=== PATIENT | male | born 1970 | race Caucasian/White ===

== ENCOUNTER 2016-12-27 08:00 | Outpatient (CLI) | payer MEDICARE | END 2016-12-27 08:01 | disposition home or self-care (01) | DX: E11.9 Type 2 diabetes mellitus without complications (principal); E03.9 Hypothyroidism, unspecified ==

== ENCOUNTER 2016-12-27 13:59 | Outpatient (CLI) | payer MEDICARE | END 2016-12-27 14:00 | disposition home or self-care (01) | DX: J18.9 Pneumonia, unspecified organism (principal); E11.9 Type 2 diabetes mellitus without complications; E03.9 Hypothyroidism, unspecified ==

== ENCOUNTER 2017-09-07 18:15 | Outpatient (CLI) | payer MEDICARE | END 2017-09-07 18:16 | disposition critical access hospital (66) | LOC: EMS 18:15 | PROVIDERS: ATTEND Surgery | DX: T50.902A Poisoning by unspecified drugs, medicaments and biological substances, intentional self-harm, initial encounter (principal) | CPT/HCPCS: A0425; A0429 ==

== ENCOUNTER 2017-09-07 18:32 | Emergency (ER) | payer MEDICARE ==
[2017-09-07] MEDS ORDERED: LORazepam 2 MG/ML SYRINGE ONE (18:58)
[2017-09-07] MEDS ORDERED: HYDROmorphone 1 MG/ML SYRINGE IVP STA ×3 (19:01→21:53)
[2017-09-07] MEDS ORDERED: LORazepam 2 MG/ML SYRINGE IVP STA (19:01)
[2017-09-07] MEDS ORDERED: SODIUM CHLORIDE 0.9% 1,000 ML IV ONE ×2 (19:02→20:13)
--- NOTE | 2017-09-07 19:03 | ED Physician Documentation ---
PD HPI ALTERED MENTAL STATUS - Stated complaint Stated Complaint: AMS - Chief complaint Chief Complaint: MHE - History obtained from History obtained from: Patient, Friend, EMS - History of Present Illness Timing - onset: Today Timing - details: Gradual onset (Unknown actual onset time but the patient had carpal tunnel surgery done this morning at [facility] under general anesthesia and was kept a little bit longer postop due to some nausea. He was discharged from there and states he was having pain in his wrist on the way home and when he got home did not have any extra pain medicines. He had been given a prescription but was unable to fill it as he did not get to the pharmacy as yet. He therefore drank some alcohol and then does not remember much after that. His girlfriend came home from running errands and found him passed out on the floor poorly responsive with minimal breathing. EMS was called and they found him arousable with the adequate oxygenation when awake. He was tachycardic however and had significant slurred speech and was also combative. His girlfriend says he did make some comments about not wanting to live with the pain but denied specific suicidal statement.) Quality / character: Unresponsive Associated symptoms: No: Fever, Headache, Stiff neck, Dyspnea Contributing factors: Intoxicated. 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 denies: Vomiting, Diarrhea Musculoskeletal: reports: Back pain (chronic, with infusion pump and nerve stimulator) Neurologic: reports: Generalized weakness. denies: Focal weakness, Numbness, Head injury Psychiatric: reports: Depressed. denies: Suicidal (he denies suicidal ideation/ intent here), Delusions Immunocompromised: denies: Immunocompromised PD PAST MEDICAL HISTORY - Past Medical History Cardiovascular: None Psych: Depression Musculoskeletal: Chronic back pain - Present Medications Home Medications: Ambulatory Orders Medication Instructions Recorded Confirmed Cyclobenzaprine [Flexeril] 10 - 20 mg PO HS 01/17/14 01/17/14 Diazepam 5 mg PO HS 01/17/14 01/17/14 HYDROcodone/ACET 10/325 [[place] 10 1 - 2 each PO Q8H PRN 01/17/14 01/17/14 mg/325 mg] Hydromorphone/Bupiv/0.9NACL/Pf ml IT 01/17/14 01/17/14 [Hydromorp-Bupiva 20 Mcg-0.06%] Insulin Glargine [Lantus] 5 unit SUBQ QPM 01/17/14 01/17/14 Levothyroxine [Synthroid] 125 mcg PO QDAC 01/17/14 01/17/14 [place] Carbonate 300 mg PO QAM 01/17/14 01/17/14 [place] Carbonate 600 mg PO HS 01/17/14 01/17/14 Metformin HCl 1,000 mg PO BIDWM 01/17/14 01/17/14 lamoTRIgine [LaMICtal] 100 mg PO DAILY 01/17/14 01/17/14 Oxycodone HCl 10 mg PO Q6H PRN #16 tablet 09/07/17 - Allergies Allergies/Adverse Reactions: Allergies Allergy/AdvReac Type Severity Reaction Status Date / Time penicillin G Allergy Severe hearing Verified 01/16/14 15:20 loss left ear povidone-iodine Allergy Severe Respiratory Verified 01/16/14 15:20 [From Betadine] soap * [From Betadine] Allergy Severe Respiratory Verified 01/16/14 15:20 shellfish derived Allergy skin Verified 01/16/14 15:20 burning dexamethasone AdvReac Unknown Unknown Verified 01/16/14 15:20 - Social History Smoking Status: Never smoker PD ED PE NORMAL - Vitals Vital signs reviewed: Yes - General General: Other (screaming and thrashing, not answering questions directly. Repeating that his hand hurts. Kicking swinging arms at providers. ) - HEENT HEENT: Atraumatic, Pharynx benign - Neck Neck: Supple, no meningeal sign, No adenopathy - Cardiac Cardiac: No: RRR (regular but tachycardic) - Respiratory Respiratory: No respiratory distress, Clear bilaterally - Abdomen Abdomen: Soft, Non tender - Male Male : Deferred - Rectal Rectal: Deferred - Back Back: No CVA TTP - Derm Derm: Normal color, Warm and dry - Extremities Extremities: No edema, No calf tenderness / cord - Neuro Neuro: No motor deficit (able to move fingers right hand, but hurts in wrist. Has good color and cap refill in fingers. Mild edema. Sutures of wound are intact and wrist rebandaged. ), Other (he is awake and talking here but unfocused speech and not processing questions, seems c/w intoxication. ) Eye Opening: Spontaneous Motor: Localizes to Pain Verbal: Confused GCS Score: 13 - Psych Psych: No: Normal affect (agitated and combative) Results - Vitals Vitals: Vital Signs - 24 hr 09/07/17 09/07/17 09/07/17 18:33 19:04 19:45 Temperature 37.1 C Heart Rate 121 H 123 H Respiratory 20 22 Rate Blood Pressure 106/73 106/73 O2 Saturation 98 97 09/07/17 09/07/17 09/07/17 21:14 21:58 22:02 Temperature Heart Rate 108 H 112 H 121 H Respiratory 18 17 23 Rate Blood Pressure 130/66 122/78 129/62 O2 Saturation 96 96 99 09/07/17 22:33 Temperature 36.7 C Heart Rate 123 H Respiratory 18 Rate Blood Pressure 126/76 O2 Saturation 96 Oxygen O2 Source Room air - EKG (time done) 18:46 Rate: Rate (enter#) (118) Rhythm: Sinus tachycardia Sebastian: Normal Intervals: Normal [place] QRS: Normal Ischemia: Normal ST segments. No: ST elevation c/w ischemia, ST depression Compare to prior EKG: Old EKG unavailable - Labs Labs: Laboratory Tests 09/07/17 09/07/17 09/07/17 19:15 19:15 19:54 WBC 8.4 RBC 4.22 L Hgb 12.9 L Hct 39.6 L MCV 93.7 MCH 30.5 MCHC 32.5 RDW 12.9 Plt Count 299 MPV 7.5 Neut # 7.7 H Lymph # 0.5 L [place] # 0.2 Eos # 0.0 Baso # 0.0 Absolute Nucleated RBC 0.00 Nucleated RBC % 0.0 Sodium 136 Potassium 3.7 Chloride 102 Carbon Dioxide 19 L Anion Gap 15.0 H BUN 11 Creatinine 0.6 Estimated GFR (MDRD) 143 Glucose 332 H Calcium 8.7 Total Bilirubin 0.4 AST 33 ALT 27 Alkaline Phosphatase 117 Total Protein 7.1 Albumin 3.9 Globulin 3.2 Albumin/Globulin Ratio 1.2 Lipase 23 Salicylates < 6.0 Urine Opiates Screen POSITIVE H Ur Oxycodone Screen NEGATIVE Urine Methadone Screen NEGATIVE Ur Propoxyphene Screen NEGATIVE Acetaminophen < 10 L Ur Barbiturates Screen NEGATIVE Ur Tricyclics Screen NEGATIVE Ur Phencyclidine Scrn NEGATIVE Ur Amphetamine Screen NEGATIVE U Methamphetamines Scrn NEGATIVE U Benzodiazepines Scrn NEGATIVE Urine Cocaine Screen NEGATIVE U Cannabinoids Screen NEGATIVE Ethyl Alcohol 102.3 PD MEDICAL DECISION MAKING - ED course Complexity details: re-evaluated patient (Watched few hours and restraints removed as he was more alert and cooperative. Denies suicidal ideation. Is apologetic, calm and cooperative at this point. His Ortho had sritten Rx for Tylenol#3 for him, which will be predictably ineffective given his dilaudid pain pump and chronic pain. Will give Rx for Oxycodone for him. He offered and I took his Rx from the Ortho and I tore it up. He is feeling improved at time of discharge. Still mildly tachycardic but I do not sense any serious pathology and feel okay with his being discharged. His wrist and fingers still have cap refill, color, movement. I don't think it is compartment syndrome. ), considered differential (he is combative and unfocused, likely intoxication combined with some post-anesthesia effect. Tachycardic but regular, presume reactive sinus tachycardia. Needed restraining for safety initially, and given Ativan IV. This helped him calm quite well. He is then able to cooperate soon after. He complains of pain in back and wrist. He is tachycardic and consider if he might be having some element of opioid withdrawal. Alcohol effect seems to be wearing off so given some pain meds. This helped his heart rate. He is not shaky nor nauseated. ), d/w patient Departure - Departure Disposition: 01 Home, Self Care Clinical Impression: Status post wrist surgery Altered mental status Qualifiers: Altered mental status type: delirium Qualified Code(s): R41.0 - Disorientation , unspecified Condition: Stable Record reviewed to determine appropriate education?: Yes Follow-Up: [facility] [Provider Group] Prescriptions: Oxycodone HCl 10 mg PO Q6H PRN #16 tablet PRN Reason: Pain Comments: Wound care for the wrist as directed by your orthopedist. No alcohol use. Continue your usual medications. Add oxycodone if needed for acute pain of the wrist post surgery. I would expect this just to needed for 4-5 days after surgery. Follow-up with your primary care. I think the symptoms he had today were a combination of still some anesthesia effect from the surgery combined with alcohol and likely tiredness and stress. He seemed to be doing well at this time. We will discharge her home with your friends. Discharge Date/Time: 09/07/17 22:58
[2017-09-07] MEDS ORDERED: HYDROmorphone 1 MG/ML SYRINGE ONE ×3 (19:12→22:05)
[2017-09-07 19:18] LABS: BASOPHILS % (AUTO) 0.1 %; HCT - HEMATOCRIT 39.6 % (42.0-52.0); HGB - HEMOGLOBIN 12.9 g/dL (14.0-18.0); LYMPHOCYTES # (AUTO) 0.5 10^3/uL (1.5-3.5); LYMPHOCYTES % (AUTO) 6.5 %; MEAN CORPUSCULAR HEMOGLOBIN 30.5 pg (27.0-31.0); MEAN CORPUSCULAR HGB CONC 32.5 g/dL (32.0-36.0); MEAN CORPUSCULAR VOLUME 93.7 fL (80.0-94.0); MEAN PLATELET VOLUME 7.5 fL (7.4-11.4); MONOCYTES # (AUTO) 0.2 10^3/uL (0.0-1.0); MONOCYTES % (AUTO) 1.9 %; NEUTROPHILS # (AUTO) 7.7 10^3/uL (1.5-6.6); NEUTROPHILS % (AUTO) 91.5 %; RED BLOOD COUNT 4.22 10^6/uL (4.70-6.10); RED CELL DISTRIBUTION WIDTH 12.9 % (12.0-15.0); UNCORRECTED WHITE BLOOD COUNT 8.4 x10^3/uL; WHITE BLOOD COUNT 8.4 x10^3/uL (4.8-10.8)
[2017-09-07 19:44] LABS: ALBUMIN/GLOBULIN RATIO 1.2 (1.0-2.2); BILIRUBIN,TOTAL 0.4 mg/dL (0.2-1.0); BUN - BLOOD UREA NITROGEN 11 mg/dL (6-20); CALCIUM 8.7 mg/dL (8.5-10.3); CARBON DIOXIDE - CO2 19 mmol/L (21-32); CHLORIDE 102 mmol/L (101-111); CREATININE 0.6 mg/dL (0.6-1.2); GFR - MDRD 143 (>89); GLUCOSE 332 mg/dL (70-100); LIPASE 23 U/L (22-51); POTASSIUM 3.7 mmol/L (3.5-5.0); SALICYLATE < 6.0 mg/dL; SODIUM 136 mmol/L (135-145); TOTAL PROTEIN 7.1 g/dL (6.7-8.2)
[2017-09-07 19:45] LABS: ACETAMINOPHEN < 10 ug/mL (10-30)
[2017-09-07] MEDS ORDERED: oxyCODONE/ACET 5/325 Prepack 4 PO STA (21:53)
[2017-09-07] MEDS ORDERED: KETOROLAC 60 MG/2 ML VIAL IVP STA (21:53)
[2017-09-07] MEDS ORDERED: KETOROLAC 30 MG/ML VIAL ONE (22:05)
[2017-09-07 22:34] VITALS: BP 126/76
== END 2017-09-07 22:58 | disposition home or self-care (01) ==
LOC: EDUNIT# → EDBD → ED 18:32
DX: R41.0 Disorientation, unspecified (principal); Z98.890 Other specified postprocedural states
CPT/HCPCS: 36415; 80053; 80306; 80307; 83690; 85025; 93005; 96361; 96374; 96375; 96376; 99284; 99285; G0480; J1170; J2060; 80320; 80329

== ENCOUNTER 2017-12-05 07:35 | Outpatient (CLI) | payer MEDICARE ==
[2017-12-05 13:32] LABS: BASOPHILS % (AUTO) 0.5 %; EOSINOPHILS # (AUTO) 0.2 10^3/uL (0.0-0.7); EOSINOPHILS % (AUTO) 3.8 %; HGB - HEMOGLOBIN 13.6 g/dL (14.0-18.0); LYMPHOCYTES # (AUTO) 1.5 10^3/uL (1.5-3.5); LYMPHOCYTES % (AUTO) 26.2 %; MEAN CORPUSCULAR HEMOGLOBIN 31.8 pg (27.0-31.0); MEAN CORPUSCULAR HGB CONC 33.9 g/dL (32.0-36.0); MEAN CORPUSCULAR VOLUME 93.7 fL (80.0-94.0); MEAN PLATELET VOLUME 8.5 fL (7.4-11.4); MONOCYTES # (AUTO) 0.5 10^3/uL (0.0-1.0); NEUTROPHILS # (AUTO) 3.4 10^3/uL (1.5-6.6); NEUTROPHILS % (AUTO) 60.5 %; PLT - PLATELET COUNT 252 10^3/uL (130-450); RED BLOOD COUNT 4.27 10^6/uL (4.70-6.10); RED CELL DISTRIBUTION WIDTH 12.8 % (12.0-15.0); WHITE BLOOD COUNT 5.5 x10^3/uL (4.8-10.8)
[2017-12-05 13:44] LABS: ALBUMIN 4.6 g/dL (3.2-5.5); ALBUMIN/GLOBULIN RATIO 1.4 (1.0-2.2); ALKALINE PHOSPHATASE 99 IU/L (42-121); ALT ALANINE AMINOTRANSFERASE 46 IU/L (10-60); AST ASPARTATE AMINOTRANSFERASE 42 IU/L (10-42); BILIRUBIN,TOTAL 0.5 mg/dL (0.2-1.0); BUN - BLOOD UREA NITROGEN 10 mg/dL (6-20); CALCIUM 9.2 mg/dL (8.5-10.3); CARBON DIOXIDE - CO2 29 mmol/L (21-32); CHLORIDE 101 mmol/L (101-111); CHOL/HDL RATIO 1.9 (<5.0); CHOLESTEROL 227 mg/dL; CREATININE 0.5 mg/dL (0.6-1.2); GFR - MDRD 177 (>89); GLUCOSE 155 mg/dL (70-100); HDL CHOLESTEROL 122 mg/dL; LDL CHOLESTEROL,CALCULATED 95 mg/dL; LDL/HDL RATIO 0.8 (<3.6); SODIUM 139 mmol/L (135-145); TOTAL PROTEIN 7.8 g/dL (6.7-8.2); VLDL CHOLESTEROL 10 mg/dL
[2017-12-05 13:57] LABS: THYROID STIMULATING HORMONE 0.57 uIU/mL (0.34-5.60)
[2017-12-05 13:59] LABS: FREE T4 (FREE THYROXINE) 0.84 ng/dL (0.58-1.64)
[2017-12-05 14:48] LABS: HB2 TOTAL 14.9 g/dL; HEMOGLOBIN A1C 0.71 g/dL; HEMOGLOBIN A1C % 6.5 % (4.6-6.2)
== END 2017-12-05 07:36 | disposition home or self-care (01) ==
LOC: LAB.N 07:35
PROVIDERS: ATTEND Family Medicine
DX: E11.9 Type 2 diabetes mellitus without complications (principal); F31.9 Bipolar disorder, unspecified; E03.9 Hypothyroidism, unspecified; E78.00 Pure hypercholesterolemia, unspecified
CPT/HCPCS: 36415; 80053; 80061; 83036; 83721; 84439; 84443; 85025

== ENCOUNTER 2018-04-03 07:37 | Outpatient (CLI) | payer MEDICARE ==
[2018-04-03 12:55] LABS: CALCIUM 8.9 mg/dL (8.5-10.3); CREATININE 0.7 mg/dL (0.6-1.2)
[2018-04-03 13:29] LABS: HB2 TOTAL 14.3 g/dL; HEMOGLOBIN A1C 0.68 g/dL; HEMOGLOBIN A1C % 6.5 % (4.6-6.2)
== END 2018-04-03 07:38 | disposition home or self-care (01) ==
LOC: LAB.N 07:37
PROVIDERS: ATTEND Family Medicine
DX: E11.9 Type 2 diabetes mellitus without complications (principal)
CPT/HCPCS: 36415; 80048; 83036

== ENCOUNTER 2018-10-30 09:34 | Outpatient (CLI) | payer MEDICARE ==
[2018-10-30 12:34] LABS: CALCIUM 9.3 mg/dL (8.5-10.3); CREATININE 0.5 mg/dL (0.6-1.2)
[2018-10-30 12:45] LABS: HB2 TOTAL 14.1 g/dL; HEMOGLOBIN A1C 0.74 g/dL
== END 2018-10-30 23:59 | disposition home or self-care (01) ==
LOC: LAB.N 09:34
PROVIDERS: ATTEND Physician Assistant Medical
DX: E11.9 Type 2 diabetes mellitus without complications (principal)
CPT/HCPCS: 36415; 80048; 83036

== ENCOUNTER 2019-02-07 10:10 | Outpatient (CLI) | payer MEDICARE ==
--- NOTE | 2019-02-07 19:00 | XRAY Report ---
Reason: L index finger; pos FB Procedure Date: 02/07/2019 Accession Number: [id number] / [id number] Procedure: XRN - Finger(s) LT CPT Code: FULL RESULT: EXAM: LEFT INDEX FINGER RADIOGRAPHY EXAM DATE: 02/07/2019 10:49 AM. CLINICAL HISTORY: Pain, question foreign body COMPARISON: 04/09/2009. TECHNIQUE: 3 views. FINDINGS: Bones: No fracture or bone lesion. Joints: No subluxations. Soft Tissues: No radiopaque foreign body identified.. No soft tissue swelling. IMPRESSION: Normal left index finger radiography. RADIA
== END 2019-02-07 10:11 | disposition home or self-care (01) ==
LOC: DI.N 10:10
PROVIDERS: ATTEND Family Medicine
DX: L03.012 Cellulitis of left finger (principal)
CPT/HCPCS: 73140

== ENCOUNTER 2019-02-07 12:15 | Outpatient (CLI) | payer MEDICARE | END 2019-02-07 23:59 | disposition home or self-care (01) | LOC: LAB.R 12:15 | PROVIDERS: ATTEND Family Medicine | DX: L02.519 Cutaneous abscess of unspecified hand (principal) | CPT/HCPCS: 87070; 87075; 87147; 87186; 87205 ==

== ENCOUNTER 2019-02-10 03:40 | Emergency (ER) | payer MEDICARE ==
[2019-02-10] MEDS ORDERED: BUPIVACAINE 0.5% PF 10 ML VIAL SUBQ STA (04:03)
--- NOTE | 2019-02-10 04:04 | ED Physician Documentation ---
History of Present Illness - Stated complaint Stated Complaint: L INDEX FINGER PX - Chief complaint Chief Complaint: Ext Problem - History obtained from History obtained from: Patient, Family - History of Present Illness Timing: How many days ago (4) - Additonal information Additional information: 49-year-old male has had swelling and tenderness to his Left index finger and he has gone in to see the ominous Dr. Combs. He has had it lanced drained packed and he has had the packing removed 2 days ago. Yesterday pain increased swelling increased and early this morning he has called his dad up to take him to the emergency department. He is on some keflex. He did have some trouble with the block not working for the procedure. Review of Systems Constitutional: denies: Fever Eyes: denies: Decreased vision Ears: denies: Ear pain Nose: denies: Rhinorrhea / runny nose, Congestion Respiratory: denies: Cough GI: denies: Vomiting PD PAST MEDICAL HISTORY - Past Medical History Cardiovascular: None Psych: Depression Musculoskeletal: Chronic back pain - Present Medications Home Medications: Ambulatory Orders Medication Instructions Recorded Confirmed Cyclobenzaprine [Flexeril] 10 - 20 mg PO HS 01/17/14 01/17/14 Diazepam 5 mg PO HS 01/17/14 01/17/14 HYDROcodone/ACET 10/325 [[place] 10 1 - 2 each PO Q8H PRN 01/17/14 01/17/14 mg/325 mg] Hydromorphone/Bupiv/0.9NACL/Pf ml IT 01/17/14 01/17/14 [Hydromorp-Bupiva 20 Mcg-0.06%] Insulin Glargine [Lantus] 5 unit SUBQ QPM 01/17/14 01/17/14 Levothyroxine [Synthroid] 125 mcg PO QDAC 01/17/14 01/17/14 [place] Carbonate 300 mg PO QAM 01/17/14 01/17/14 [place] Carbonate 600 mg PO HS 01/17/14 01/17/14 Metformin HCl 1,000 mg PO BIDWM 01/17/14 01/17/14 lamoTRIgine [LaMICtal] 100 mg PO DAILY 01/17/14 01/17/14 Oxycodone HCl 10 mg PO Q6H PRN #16 tablet 09/07/17 Sulfamethox/Trimeth 800/160 1 each PO BID #14 tablet 02/10/19 [Bactrim Ds] - Allergies Allergies/Adverse Reactions: Allergies Allergy/AdvReac Type Severity Reaction Status Date / Time penicillin G Allergy Severe hearing Verified 01/16/14 15:20 loss left ear povidone-iodine Allergy Severe Respiratory Verified 01/16/14 15:20 [From Betadine] soap * [From Betadine] Allergy Severe Respiratory Verified 01/16/14 15:20 shellfish derived Allergy skin Verified 01/16/14 15:20 burning dexamethasone AdvReac Unknown Unknown Verified 01/16/14 15:20 - Social History Smoking Status: Never smoker PD ED PE NORMAL - Vitals Vital signs reviewed: Yes (hypertensive) - General General: Alert and oriented X 3, No acute distress, Well developed/nourished - HEENT HEENT: Atraumatic, PERRL, EOMI - Respiratory Respiratory: No respiratory distress - Derm Derm: Normal color, Warm and dry, No rash - Extremities Extremities: Other (There is marked swelling to the left index fingertip. There is a site of prior I&D a longitudinal incision on the volar surface. This does not currently drain. There is fluctuance distally corresponding to findings on bedside ultrasound exam. 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, No motor deficit, No sensory deficit, Normal speech Eye Opening: Spontaneous Motor: Obeys Commands Verbal: Oriented GCS Score: 15 - Psych Psych: Normal mood, Normal affect Results - Vitals Vitals: Vital Signs - 24 hr 02/10/19 03:45 Temperature 36.6 C Heart Rate 96 Respiratory 20 Rate Blood Pressure 160/108 H O2 Saturation 97 Oxygen O2 Source Room air Procedures - Abscess I&D (location) left index finger Preparation: Confirmed with ultrasound, Chlorhexadine, Marcaine 0.5% (digital block) Incision: Incised with scalpel, Purulent drainage, Loculations broken, Irrigated, Culture obtained Other: Pt tolerated well, Dressing applied, Antibiotic prescribed (switched to sulfa with cult results from prior visit.) PD MEDICAL DECISION MAKING - ED course Complexity details: reviewed old records, reviewed results, re-evaluated p atient, considered differential, d/w patient, d/w family ED course: 49-year-old male with a felon on his left index finger that has progressed despite I&D done several days ago. On evaluation here in the emergency department with bedside ultrasound there is a pocket of pus distal to where the incision was made. A digital block was performed and we did get excellent anest hesia with this after a second try. I was able to break up loculations and did exude some thick pus which was followed by irrigation of the cavity. The culture obtained on the 2nd showed heavy growth of staph and I have changed his antibioitc to sulfa/tmp. He is encouraged to use a warm compress 2-3 times per day. Departure - Departure Disposition: 01 Home, Self Care Clinical Impression: Felon of finger of left hand Condition: Stable Instructions: ED Abscess IandD Follow-Up: Neil Comsb MD [Provider Admit Priv/Credential] - Prescriptions: Sulfamethox/Trimeth 800/160 [Bactrim Ds] 1 each PO BID #14 tablet Comments: Today in the Emergency Department your blood pressure was elevated. This can happen from the stress of the visit itself, from a current illness or ci rcumstance or from uncontrolled hypertension. If you take blood pressure medications take your usual mediations, have your blood pressure re-checked in an appropriate setting and follow up any elevation with your primary care doctor.
[2019-02-10] MEDS ORDERED: HYDROcod/ACET 5/325 Prepack 4 PO STA (04:40)
[2019-02-10] MEDS ORDERED: SULFAM/TRIM 800/160 Prepack 2 PO ONE (04:41)
[2019-02-10 05:04] VITALS: BP 158/99
[2019-02-10] MEDS ORDERED: BACITRACIN OINT TOP ONE (05:05)
== END 2019-02-10 05:05 | disposition home or self-care (01) ==
LOC: ED 03:40
DX: L03.012 Cellulitis of left finger (principal); B95.8 Unspecified staphylococcus as the cause of diseases classified elsewhere; R03.0 Elevated blood-pressure reading, without diagnosis of hypertension
CPT/HCPCS: 26011; 99282; 99283; A9270; 10060

== ENCOUNTER 2019-03-24 18:51 | Outpatient (CLI) | payer MEDICARE | END 2019-03-24 18:52 | disposition critical access hospital (66) | LOC: EMS 18:51 | PROVIDERS: ATTEND Surgery | DX: R45.851 Suicidal ideations (principal) | CPT/HCPCS: A0425; A0429 ==

== ENCOUNTER 2019-03-24 19:07 | Emergency (ER) | payer MEDICARE ==
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
[2019-03-24] MEDS ORDERED: OLANZapine 10 MG VIAL IM STA (19:42)
[2019-03-24 20:01] LABS: BASOPHILS % (AUTO) 0.6 %; EOSINOPHILS # (AUTO) 0.2 10^3/uL (0.0-0.7); EOSINOPHILS % (AUTO) 3.6 %; HGB - HEMOGLOBIN 14.3 g/dL (14.0-18.0); LYMPHOCYTES # (AUTO) 1.9 10^3/uL (1.5-3.5); LYMPHOCYTES % (AUTO) 39.5 %; MEAN CORPUSCULAR HEMOGLOBIN 32.2 pg (27.0-31.0); MEAN CORPUSCULAR HGB CONC 33.9 g/dL (32.0-36.0); MEAN CORPUSCULAR VOLUME 95.2 fL (80.0-94.0); MEAN PLATELET VOLUME 7.8 fL (7.4-11.4); MONOCYTES # (AUTO) 0.3 10^3/uL (0.0-1.0); MONOCYTES % (AUTO) 6.3 %; NEUTROPHILS # (AUTO) 2.4 10^3/uL (1.5-6.6); PLT - PLATELET COUNT 271 10^3/uL (130-450); RED BLOOD COUNT 4.43 10^6/uL (4.70-6.10); RED CELL DISTRIBUTION WIDTH 12.3 % (12.0-15.0); WHITE BLOOD COUNT 4.9 x10^3/uL (4.8-10.8)
[2019-03-24 20:15] LABS: ACETAMINOPHEN < 10 ug/mL (10-30); ALBUMIN 4.5 g/dL (3.2-5.5); ALBUMIN/GLOBULIN RATIO 1.5 (1.0-2.2); ALKALINE PHOSPHATASE 112 IU/L (42-121); ALT ALANINE AMINOTRANSFERASE 55 IU/L (10-60); AST ASPARTATE AMINOTRANSFERASE 44 IU/L (10-42); BILIRUBIN,TOTAL 0.6 mg/dL (0.2-1.0); BUN - BLOOD UREA NITROGEN 10 mg/dL (6-20); CARBON DIOXIDE - CO2 28 mmol/L (21-32); CHLORIDE 101 mmol/L (101-111); CREATININE 0.7 mg/dL (0.6-1.2); GFR - MDRD 119 (>89); GLUCOSE 158 mg/dL (70-100); LIPASE 26 U/L (22-51); MAGNESIUM 2.1 mg/dL (1.7-2.8); SALICYLATE < 6.0 mg/dL; SODIUM 141 mmol/L (135-145); TOTAL PROTEIN 7.6 g/dL (6.7-8.2)
[2019-03-24 23:36] LABS: BILIRUBIN,URINE NEGATIVE (NEGATIVE); CLARITY,URINE CLEAR (CLEAR); GLUCOSE, URINE (UA) NEGATIVE (NEGATIVE); KETONES,URINE (UA) NEGATIVE (NEGATIVE); LEUKOCYTE ESTERASE, URINE NEGATIVE (NEGATIVE); MUDS CUTOFF CONCENTRATIONS CUTOFF CONC BELOW:; NITRITE,URINE NEGATIVE (NEGATIVE); OCCULT BLOOD,URINE NEGATIVE (NEGATIVE); PROTEIN,URINE NEGATIVE (NEGATIVE); UROBILINOGEN,URINE 0.2 (NORMAL) E.U./dL (NORMAL)
[2019-03-24 23:46] LABS: COCAINE SCREEN URINE NEGATIVE (NEGATIVE); METHAMPHETAMINES SCREEN, URINE NEGATIVE (NEGATIVE); OPIATE SCREEN, URINE POSITIVE (NEGATIVE)
[2019-03-24 23:47] LABS: AMPHETAMINE SCREEN,URINE POSITIVE (NEGATIVE); BENZODIAZEPINES SCREEN, URINE POSITIVE (NEGATIVE); METHADONE SCREEN, URINE NEGATIVE (NEGATIVE); OXYCODONE SCREEN, URINE NEGATIVE (NEGATIVE); PROPOXYPHENE SCREEN, URINE NEGATIVE (NEGATIVE); TRICYCLIC ANTIDEPRESSANT,URINE NEGATIVE (NEGATIVE)
[2019-03-25 07:07] VITALS: BP 123/86
== END 2019-03-25 07:09 | disposition home or self-care (01) ==
LOC: EDUNIT# → ED 19:07
DX: F10.120 Alcohol abuse with intoxication, uncomplicated (principal); F32.9 Major depressive disorder, single episode, unspecified; R45.851 Suicidal ideations; F43.9 Reaction to severe stress, unspecified
CPT/HCPCS: 36415; 80053; 80306; 80307; 80320; 80329; 81001; 81003; 83690; 83735; 84443; 85025; 87086; 96372; 99284

== ENCOUNTER 2019-03-26 13:01 | Outpatient (CLI) | payer MEDICARE | END 2019-03-26 13:02 | disposition critical access hospital (66) | LOC: EMS 13:01 | PROVIDERS: ATTEND Surgery | DX: R45.851 Suicidal ideations (principal); R45.1 Restlessness and agitation | CPT/HCPCS: A0425; A0429 ==

== ENCOUNTER 2019-03-26 13:17 | Emergency (ER) | payer MEDICARE ==
[2019-03-26 13:45] LABS: BASOPHILS % (AUTO) 0.3 %; EOSINOPHILS # (AUTO) 0.2 10^3/uL (0.0-0.7); EOSINOPHILS % (AUTO) 2.7 %; HGB - HEMOGLOBIN 14.9 g/dL (14.0-18.0); LYMPHOCYTES % (AUTO) 29.9 %; MEAN CORPUSCULAR HEMOGLOBIN 31.1 pg (27.0-31.0); MEAN CORPUSCULAR HGB CONC 32.8 g/dL (32.0-36.0); MEAN CORPUSCULAR VOLUME 94.8 fL (80.0-94.0); MEAN PLATELET VOLUME 9.5 fL (7.4-11.4); MONOCYTES # (AUTO) 0.4 10^3/uL (0.0-1.0); MONOCYTES % (AUTO) 6.4 %; NEUTROPHILS # (AUTO) 4.1 10^3/uL (1.5-6.6); NEUTROPHILS % (AUTO) 60.3 %; PLT - PLATELET COUNT 288 10^3/uL (130-450); RED BLOOD COUNT 4.79 10^6/uL (4.70-6.10); RED CELL DISTRIBUTION WIDTH 11.4 % (12.0-15.0); WHITE BLOOD COUNT 6.8 x10^3/uL (4.8-10.8)
[2019-03-26 14:00] LABS: ACETAMINOPHEN < 10 ug/mL (10-30); ALBUMIN 4.2 g/dL (3.2-5.5); ALBUMIN/GLOBULIN RATIO 1.3 (1.0-2.2); ALKALINE PHOSPHATASE 107 IU/L (42-121); ALT ALANINE AMINOTRANSFERASE 54 IU/L (10-60); AST ASPARTATE AMINOTRANSFERASE 45 IU/L (10-42); BILIRUBIN,TOTAL 0.6 mg/dL (0.2-1.0); BUN - BLOOD UREA NITROGEN 8 mg/dL (6-20); CALCIUM 9.4 mg/dL (8.5-10.3); CARBON DIOXIDE - CO2 25 mmol/L (21-32); CHLORIDE 102 mmol/L (101-111); CREATININE 0.6 mg/dL (0.6-1.2); GFR - MDRD 142 (>89); GLUCOSE 197 mg/dL (70-100); LIPASE 26 U/L (22-51); SALICYLATE < 6.0 mg/dL; SODIUM 141 mmol/L (135-145); TOTAL PROTEIN 7.4 g/dL (6.7-8.2)
[2019-03-26 15:16] LABS: MUDS CUTOFF CONCENTRATIONS CUTOFF CONC BELOW:
[2019-03-26 15:19] LABS: BILIRUBIN,URINE NEGATIVE (NEGATIVE); GLUCOSE, URINE (UA) 100 mg/dL (NEGATIVE); KETONES,URINE (UA) NEGATIVE (NEGATIVE); LEUKOCYTE ESTERASE, URINE NEGATIVE (NEGATIVE); NITRITE,URINE NEGATIVE (NEGATIVE); OCCULT BLOOD,URINE NEGATIVE (NEGATIVE); PH,URINE 5.5 PH (5.0-7.5); PROTEIN,URINE NEGATIVE (NEGATIVE); UROBILINOGEN,URINE 0.2 (NORMAL) E.U./dL (NORMAL)
[2019-03-26 15:20] LABS: CLARITY,URINE CLEAR (CLEAR)
[2019-03-26] MEDS: DOCUSATE SODIUM 100 MG CAPSULE PO STA (15:32)
[2019-03-26] MEDS: LORazepam 1 MG TABLET PO STA (15:32)
[2019-03-26 15:38] LABS: AMPHETAMINE SCREEN,URINE NEGATIVE (NEGATIVE); BENZODIAZEPINES SCREEN, URINE POSITIVE (NEGATIVE); COCAINE SCREEN URINE NEGATIVE (NEGATIVE); METHADONE SCREEN, URINE NEGATIVE (NEGATIVE); METHAMPHETAMINES SCREEN, URINE NEGATIVE (NEGATIVE); OPIATE SCREEN, URINE POSITIVE (NEGATIVE); TRICYCLIC ANTIDEPRESSANT,URINE NEGATIVE (NEGATIVE)
[2019-03-26 15:39] LABS: OXYCODONE SCREEN, URINE NEGATIVE (NEGATIVE); PROPOXYPHENE SCREEN, URINE NEGATIVE (NEGATIVE)
[2019-03-26] MEDS: ONDANSETRON ODT 4 MG TABLET TL STA (20:31)
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
--- NOTE | 2019-03-27 09:37 | ED Physician Documentation ---
ED Addendum - Addendum Addendum: 03/27/19 09:36 Patient received an handoff from Dr. Gupta at approximately 7 AM on 03/27/2019. Patient arrived to the ED yesterday intoxicated and claiming suicidal thoughts. Patient's work-up was performed. Patient was to remain in the ED overnight to sober up and obtain social work consult in the morning. Social work evaluated patient in the ED and felt that he was safe to discharge home with resources and aided him in scheduling a new primary care physician appointment for next week. He also advised him on alcohol cessation and resources. Patient's father present.
[2019-03-27 09:44] VITALS: BP 151/91
== END 2019-03-27 09:48 | disposition home or self-care (01) ==
LOC: EDUNIT# → ED 13:17
DX: R45.851 Suicidal ideations (principal); F32.9 Major depressive disorder, single episode, unspecified; F10.229 Alcohol dependence with intoxication, unspecified; R27.0 Ataxia, unspecified; Z78.1 Physical restraint status
CPT/HCPCS: 36415; 80053; 80306; 80307; 80320; 80329; 81001; 81003; 83690; 84443; 85025; 87086; 99283; 99284

== ENCOUNTER 2019-04-02 09:27 | Emergency (ER) | payer MEDICARE ==
--- NOTE | 2019-04-02 09:39 | ED Physician Documentation ---
PD HPI SKIN - Stated complaint Stated Complaint: BODY SWOLLEN - Chief complaint Chief Complaint: Allergic Rx - History obtained from History obtained from: Patient - History of Present Illness Timing - onset: Today, Last night (had mild feeling of swelling hands and lips last night after eating some slovenian leftover food that had been given to him. He was not sure of the cause of the swelling at the time, though. He had some more of the food today and had more swelling of his hands, lips, some feeling of throat tightness. Was going to appt with PMD anyway, and went there. Given IM Epi and Benadryl, and told to come to ER. Was going to call ambulance but patient said his father would give him ride to the ER. So came by [facility]. He says feeling less swelling lips and throat enroute. Hands still feel swollen.) Timing - duration: Hours (1) Timing - details: Abrupt onset (over the course of an hour or so.) Location: Bodywide (mostly hands/arms, lips, throat.) Quality / character: Burning, Swelling. No: Itchy, Vesicular Improved by: Benadryl, Epi (given at Clinic) Associated symptoms: Dyspnea. No: Fever, Myalgias, N/V/D Contributing factors: Exposed to food (symptoms seem correlated with the Vietnamese food he ate last evening and again this morning.). No: Exposed to medication Similar symptoms before: Has not had sx before Review of Systems Constitutional: denies: Fever, Chills Nose: denies: Rhinorrhea / runny nose, Congestion Throat: denies: Sore throat Respiratory: reports: Dyspnea. denies: Cough GI: denies: Nausea, Vomiting Neurologic: denies: Near syncope, Headache PD PAST MEDICAL HISTORY - Past Medical History Cardiovascular: None Respiratory: None Neuro: None Endocrine/Autoimmune: None GI: None : None HEENT: None Psych: Depression Musculoskeletal: Chronic back pain Derm: None - Past Surgical History Past Surgical History: No - Present Medications Home Medications: Ambulatory Orders Medication Instructions Recorded Confirmed Cyclobenzaprine [Flexeril] 10 - 20 mg PO HS 01/17/14 01/17/14 Diazepam 5 mg PO HS 01/17/14 01/17/14 Hydromorphone/Bupiv/0.9NACL/Pf ml IT 04/11/14 04/11/14 [Hydromorp-Bupiva 20 Mcg-0.06%] Levothyroxine [Synthroid] 125 mcg PO QDAC 01/17/14 01/17/14 [place] Carbonate 300 mg PO QAM 01/17/14 01/17/14 [place] Carbonate 600 mg PO HS 01/17/14 01/17/14 Metformin HCl 1,000 mg PO BIDWM 01/17/14 01/17/14 lamoTRIgine [LaMICtal] 100 mg PO DAILY 01/17/14 01/17/14 Cetirizine [ZyrTEC] 10 mg PO DAILY #15 tablet 04/02/19 EPINEPHrine [Epinephrine] 0.3 mg IJ ONCE PRN #1 auto.injct 04/02/19 dexAMETHasone [Decadron] 4 mg PO DAILY #5 tablet 04/02/19 - Allergies Allergies/Adverse Reactions: Allergies Allergy/AdvReac Type Severity Reaction Status Date / Time penicillin G Allergy Severe hearing Verified 04/02/19 09:38 loss left ear povidone-iodine Allergy Severe Respiratory Verified 04/02/19 09:38 [From Betadine] soap * [From Betadine] Allergy Severe Respiratory Verified 04/02/19 09:38 shellfish derived Allergy skin Verified 04/02/19 09:38 burning - Social History Does the pt smoke?: No Smoking Status: Never smoker Does the pt drink ETOH?: Yes Does the pt have substance abuse?: No - Immunizations Immunizations are current?: Yes - POLST Patient has POLST: No PD ED PE NORMAL - Vitals Vital signs reviewed: Yes - General General: Alert and oriented X 3, No acute distress, Well developed/nourished - HEENT HEENT: Moist mucous membranes, Pharynx benign (no swelling of the uvula at this time. ), Other (no edema noted of uvula nor lips. ) - Neck Neck: Supple, no meningeal sign, No adenopathy - Cardiac Cardiac: RRR (mildly tachycardic), No murmur - Respiratory Respiratory: Clear bilaterally - Abdomen Abdomen: Soft, Non tender - Derm Derm: Normal color, No rash, Other (has some edema generally of both hands and forearms. Not of feet. Does not seem to have edema of the face. ) Results - Vitals Vitals: Vital Signs - 24 hr 04/02/19 04/02/19 09:33 11:58 Temperature 37.4 C 37.3 C Heart Rate 106 H 98 Respiratory 14 19 Rate Blood Pressure 163/100 H 128/88 H O2 Saturation 96 98 Oxygen O2 Source Room air PD MEDICAL DECISION MAKING - ED course Complexity details: re-evaluated patient (He still has some swelling in hands/fingers, but none of lips/throat, and no trouble breathing, after about 2 hours in the ER. He feels comfortable being discharged. ), considered differential (no on JOAO, no new meds. Had symptoms soon after eating leftover foods. He did not thing it had any seafood in it, but is not completely sure. Seems to correlate with eating the food, so some component of it seems likely the trigger. ), d/w patient Departure - Departure Disposition: 01 Home, Self Care Clinical Impression: Allergic reaction Qualifiers: Encounter type: initial encounter Qualified Code(s): T78.40XA - Allergy, unspecified, initial encounter Condition: Stable Record reviewed to determine appropriate education?: Yes Instructions: ED Allergic Reaction General Other Follow-Up: Hank Conley PA-C [Primary Care Provider] - Prescriptions: Cetirizine [ZyrTEC] 10 mg PO DAILY #15 tablet dexAMETHasone [Decadron] 4 mg PO DAILY #5 tablet EPINEPHrine [Epinephrine] 0.3 mg IJ ONCE PRN #1 auto.injct PRN Reason: Anaphylaxis Comments: Decadron steroid daily for 5 more days. Cetirizine daily for a week. Use Epipen if needed for recurrent reactions. Discharge Date/Time: 04/02/19 12:04
[2019-04-02] MEDS ORDERED: diphenhydrAMINE INJ 50 MG/ML VIAL IVP STA (09:49)
[2019-04-02] MEDS ORDERED: DEXAMETHASONE 10 MG/ML VIAL IVP STA (09:49)
[2019-04-02 12:03] VITALS: BP 128/88
== END 2019-04-02 12:04 | disposition home or self-care (01) ==
LOC: ED 09:27
DX: T78.40XA Allergy, unspecified, initial encounter (principal); R60.0 Localized edema; X58.XXXA Exposure to other specified factors, initial encounter
CPT/HCPCS: 96374; 96375; 99283; J1200

== ENCOUNTER 2019-05-17 14:22 | Emergency (ER) | payer MEDICARE ==
[2019-05-17 14:36] VITALS: BP 150/107
--- NOTE | 2019-05-17 16:39 | ED Physician Documentation ---
History of Present Illness - Stated complaint Stated Complaint: RT HAND BUG BITE - Chief complaint Chief Complaint: Wound - History obtained from History obtained from: Patient - Additonal information Additional information: Patient is a right-handed, 49-year-old male presenting swelling, erythema, and pain to the ulnar side of the right hand. Patient reports that he felt as though he sustained a bug bite several days ago which subsequently became more red, painful, and draining of purulent material. Patient saw his primary care physician yesterday who recommended heat, warm soaks, and start him on doxycycline, particularly given his multiple other antibiotic allergies. Patient reports that there is no further purulent drainage, but persistent erythema, swelling, and pain. No fever or other complaints. Patient denies any changes in sensation, strength, range of motion to the hand. No other improving or worsening factors noted. Review of Systems Constitutional: denies: Fever Skin: reports: Lesions, Bite / sting Musculoskeletal: reports: Extremity pain, Extremity swelling Neurologic: denies: Focal weakness, Numbness PD PAST MEDICAL HISTORY - Past Medical History Cardiovascular: None Respiratory: None Neuro: None Endocrine/Autoimmune: None GI: None : None HEENT: None Psych: Depression Musculoskeletal: Chronic back pain Derm: None - Past Surgical History Past Surgical History: No Ortho: Spine surgery Derm: Skin grafts - Present Medications Home Medications: Ambulatory Orders Medication Instructions Recorded Confirmed Cyclobenzaprine [Flexeril] 10 - 20 mg PO HS 01/17/14 01/17/14 Diazepam 5 mg PO HS 01/17/14 01/17/14 Hydromorphone/Bupiv/0.9NACL/Pf ml IT 01/17/14 01/17/14 [Hydromorp-Bupiva 20 Mcg-0.06%] Levothyroxine [Synthroid] 125 mcg PO QDAC 01/17/14 01/17/14 [place] Carbonate 300 mg PO QAM 01/17/14 01/17/14 [place] Carbonate 600 mg PO HS 01/17/14 01/17/14 Metformin HCl 1,000 mg PO BIDWM 01/17/14 01/17/14 lamoTRIgine [LaMICtal] 100 mg PO DAILY 01/17/14 01/17/14 Cetirizine [ZyrTEC] 10 mg PO DAILY #15 tablet 04/02/19 EPINEPHrine [Epinephrine] 0.3 mg IJ ONCE PRN #1 auto.injct 04/02/19 dexAMETHasone [Decadron] 4 mg PO DAILY #5 tablet 04/02/19 Doxycycline Hyclate 100 mg PO 05/17/19 - Allergies Allergies/Adverse Reactions: Allergies Allergy/AdvReac Type Severity Reaction Status Date / Time penicillin G Allergy Severe hearing Verified 05/17/19 16:33 loss left ear povidone-iodine Allergy Severe Respiratory Verified 05/17/19 16:33 [From Betadine] soap * [From Betadine] Allergy Severe Respiratory Verified 05/17/19 16:33 shellfish derived Allergy skin Verified 05/17/19 16:33 burning - Social History Does the pt smoke?: No Smoking Status: Never smoker Does the pt drink ETOH?: Yes Does the pt have substance abuse?: No - Immunizations Immunizations are current?: Yes - POLST Patient has POLST: No PD ED PE NORMAL - Vitals Vital signs reviewed: Yes - General General: Alert and oriented X 3, No acute distress, Well developed/nourished - HEENT HEENT: Atraumatic, Moist mucous membranes - Cardiac Cardiac: Strong equal pulses - Respiratory Respiratory: No respiratory distress - Derm Derm: Other (Mild swelling and erythema to the ulnar aspect of right hand extending onto the ventral and dorsal sides and extension into the right pinky finger with no fluctuance or active drainage.) - Extremities Extremities: No deformity, No tenderness to palpate. No: No edema - Neuro Neuro: No motor deficit, No sensory deficit - Psych Psych: Normal mood, Normal affect Results - Vitals Vitals: Vital Signs - 24 hr 05/17/19 14:34 Temperature 36.4 C L Heart Rate 106 H Respiratory 20 Rate Blood Pressure 150/107 H O2 Saturation 100 Oxygen O2 Source Room air PD MEDICAL DECISION MAKING - ED course Complexity details: considered differential, d/w patient ED course: Patient presenting following spontaneous drainage of abscess and currently undergoing antibiotic therapy for likely cellulitis. Do feel that patient can continue with oral antibiotics and advised on other treatment including elevation and ice application. Discussed close follow-up and strict return p recautions. Do not feel patient requires other invasive testing or interventions at this time. Patient voices understanding and is comfortable with discharge plan. Departure - Departure Disposition: 01 Home, Self Care Clinical Impression: Cellulitis Qualifiers: Site of cellulitis: extremity Site of cellulitis of extremity: upper extremity Laterality: right Qualified Code(s): L03.113 - Cellulitis of right upper limb Condition: Good Instructions: ED Infec Skin Cellulitis Follow-Up: TIM BURNETT MD [Primary Care Provider] - Within 3 Days Comments: Please continue home medications including antibiotics as prescribed. Recommend consistent use of ibuprofen/Tylenol appropriately to help reduce inflammation. Also recommend elevation and ice application at this juncture to help reduce swelling and avoid heat and soaking of hand. Follow-up with primary care physician in next 2 to 3 days and return to ED sooner if experience worsening symptoms or have other concerns.
== END 2019-05-17 17:41 | disposition home or self-care (01) ==
LOC: ED 14:22
DX: L03.113 Cellulitis of right upper limb (principal)
CPT/HCPCS: 99282

== ENCOUNTER 2019-07-08 10:26 | Outpatient (CLI) | payer MEDICARE ==
--- NOTE | 2019-07-08 11:05 | XRAY Report ---
Reason: RT HAND PAIN Procedure Date: 07/08/2019 Accession Number: [id number] / [id number] Procedure: XRN - Hand 3 View RT CPT Code: FULL RESULT: EXAM: RIGHT HAND RADIOGRAPHY EXAM DATE: 07/08/2019 10:39 AM. CLINICAL HISTORY: Right hand pain. COMPARISON: FINGER(S) LT 02/07/2019 10:50 AM. TECHNIQUE: 3 views. FINDINGS: Bones: No definite acute fracture. There is an old fifth metacarpal fracture with mild volar angulation of the proximal metacarpal. Please correlate with targeted physical examination for a possible occult acute fracture. Joints: Normal. No subluxations. Soft Tissues: Normal. No soft tissue swelling. IMPRESSION: 1. Chronic appearing healed fifth metacarpal fracture with mild volar angulation. I cannot completely exclude an acute fracture of the proximal metacarpal. Correlate with targeted physical examination. If pain continues, recommend short-term follow-up in 7-10 days. 2. Otherwise negative examination. RADIA
== END 2019-07-08 10:27 | disposition home or self-care (01) ==
LOC: DI.N 10:26
PROVIDERS: ATTEND Physician Assistant Medical
DX: M79.641 Pain in right hand (principal)

== ENCOUNTER 2019-07-08 10:46 | Outpatient (CLI) | payer MEDICARE ==
[2019-07-08 18:27] LABS: BASOPHILS % (AUTO) 0.4 %; EOSINOPHILS % (AUTO) 0.4 %; HGB - HEMOGLOBIN 12.5 g/dL (14.0-18.0); LYMPHOCYTES % (AUTO) 13.7 %; MEAN CORPUSCULAR HEMOGLOBIN 31.2 pg (27.0-31.0); MEAN CORPUSCULAR HGB CONC 32.3 g/dL (32.0-36.0); MEAN CORPUSCULAR VOLUME 96.5 fL (80.0-94.0); MEAN PLATELET VOLUME 10.3 fL (7.4-11.4); MONOCYTES # (AUTO) 0.4 10^3/uL (0.0-1.0); MONOCYTES % (AUTO) 5.4 %; NEUTROPHILS # (AUTO) 5.9 10^3/uL (1.5-6.6); NEUTROPHILS % (AUTO) 79.8 %; PLT - PLATELET COUNT 288 10^3/uL (130-450); RED BLOOD COUNT 4.01 10^6/uL (4.70-6.10); RED CELL DISTRIBUTION WIDTH 12.1 % (12.0-15.0); WHITE BLOOD COUNT 7.4 x10^3/uL (4.8-10.8)
[2019-07-08 19:15] LABS: ALBUMIN 4.3 g/dL (3.2-5.5); ALBUMIN/GLOBULIN RATIO 1.5 (1.0-2.2); BILIRUBIN,TOTAL 0.7 mg/dL (0.2-1.0); CREATININE 0.5 mg/dL (0.6-1.2); TOTAL PROTEIN 7.1 g/dL (6.7-8.2)
[2019-07-08 19:19] LABS: HB2 TOTAL 12.8 g/dL; HEMOGLOBIN A1C 0.7 g/dL; HEMOGLOBIN A1C % 7.2 % (4.6-6.2)
== END 2019-07-08 23:59 | disposition home or self-care (01) ==
LOC: LAB.N 10:46
PROVIDERS: ATTEND Physician Assistant Medical
DX: E11.9 Type 2 diabetes mellitus without complications (principal); E03.9 Hypothyroidism, unspecified; R60.0 Localized edema
CPT/HCPCS: 36415; 80053; 82550; 83036; 84443; 85025

== ENCOUNTER 2019-08-21 08:01 | Outpatient (CLI) | payer MEDICARE ==
--- NOTE | 2019-08-21 14:58 | XRAY Report ---
Reason: PAIN IN WRIST Procedure Date: 08/21/2019 Accession Number: [id number] / [id number] Procedure: XRN - Wrist 3 View LT CPT Code: Final Report FULL RESULT: EXAM: LEFT WRIST RADIOGRAPHY EXAM DATE: 08/21/2019 08:30 AM. CLINICAL HISTORY: Fall, pain. COMPARISON: None. TECHNIQUE: 3 views. FINDINGS: Bones: Nondisplaced oblique fracture through the base of the radial styloid process. Also noted is erosion of the ulnar styloid process tip. Otherwise unremarkable. Joints: Joint spaces generally well preserved. Soft Tissues: Soft tissue swelling. IMPRESSION: 1. Nondisplaced radial styloid process fracture. 2. Ulnar styloid process erosion compatible with an inflammatory arthritis such as rheumatoid arthritis; clinical correlation is suggested. RADIA
== END 2019-08-21 08:02 | disposition home or self-care (01) ==
LOC: DI.N 08:01
PROVIDERS: ATTEND Physician Assistant Medical
DX: S52.515A Nondisplaced fracture of left radial styloid process, initial encounter for closed fracture (principal); M85.88 Other specified disorders of bone density and structure, other site

== ENCOUNTER 2020-06-04 10:57 | Outpatient (CLI) | payer MEDICARE, MEDICAID ==
--- NOTE | 2020-06-04 14:58 | XRAY Report ---
PROCEDURE: Shoulder 3 View LT INDICATIONS: LEFT SCAPULA FRACTURE TECHNIQUE: 3 views of the shoulder were acquired. COMPARISON: Prior study from 04/30/2020. FINDINGS: Bones: No previously unidentified fractures or dislocations. No suspicious bony lesions. Visualize d ribs appear intact. Soft tissues: No suspicious soft tissue calcifications. IMPRESSION: Healing fracture of the glenoid base at the left scapula, no new injury found. Alignment appears normal at this time. Reviewed by: Gerardo Shafer MD on 06/04/2020 2:57 PM PDT Approved by: Gerardo Shafer MD on 06/04/2020 2:57 PM PDT Station ID: [id number]
== END 2020-06-04 10:58 | disposition home or self-care (01) ==
LOC: DI.WCP 10:57
PROVIDERS: ATTEND Physician Assistant Medical
DX: S42.115A Nondisplaced fracture of body of scapula, left shoulder, initial encounter for closed fracture (principal)

== ENCOUNTER 2020-06-12 13:15 | Outpatient (CLI) | payer MEDICARE, MEDICAID | END 2020-06-12 13:16 | disposition critical access hospital (66) | LOC: EMS 13:15 | PROVIDERS: ATTEND Surgery | DX: M25.512 Pain in left shoulder (principal); R07.9 Chest pain, unspecified | CPT/HCPCS: A0425; A0429 ==

== ENCOUNTER 2020-06-12 13:34 | Emergency (ER) | payer MEDICARE, MEDICAID ==
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
[2020-06-12 14:14] LABS: BASOPHILS % (AUTO) 0.4 %; EOSINOPHILS # (AUTO) 0.1 10^3/uL (0.0-0.7); EOSINOPHILS % (AUTO) 2.2 %; HGB - HEMOGLOBIN 12.4 g/dL (14.0-18.0); LYMPHOCYTES # (AUTO) 1.1 10^3/uL (1.5-3.5); LYMPHOCYTES % (AUTO) 24.4 %; MEAN CORPUSCULAR HEMOGLOBIN 32.3 pg (27.0-31.0); MEAN CORPUSCULAR HGB CONC 33.7 g/dL (32.0-36.0); MEAN CORPUSCULAR VOLUME 95.8 fL (80.0-94.0); MEAN PLATELET VOLUME 8.9 fL (7.4-11.4); MONOCYTES # (AUTO) 0.5 10^3/uL (0.0-1.0); MONOCYTES % (AUTO) 10.5 %; NEUTROPHILS # (AUTO) 2.8 10^3/uL (1.5-6.6); NEUTROPHILS % (AUTO) 62.3 %; PLT - PLATELET COUNT 248 10^3/uL (130-450); RED BLOOD COUNT 3.84 10^6/uL (4.70-6.10); RED CELL DISTRIBUTION WIDTH 11.9 % (12.0-15.0); WHITE BLOOD COUNT 4.5 x10^3/uL (4.8-10.8)
--- NOTE | 2020-06-12 14:22 | XRAY Report ---
PROCEDURE: Chest 1 View X-Ray INDICATIONS: Chest Pain TECHNIQUE: One view of the chest was acquired. COMPARISON: None. FINDINGS: Surgical changes and devices: None. Lungs and pleura: No pleural effusions or pneumothorax. Lungs are clear. Mediastinum: Mediastinal contours appear normal. Heart size is normal. Bones and chest wall: No suspicious bony lesions. Overlying soft tissues appear unremarkable. IMPRESSION: Normal for age, source of chest pain is not seen. Reviewed by: Gerardo Shafer MD on 06/12/2020 2:21 PM PDT Approved by: Gerardo Shafer MD on 06/12/2020 2:21 PM PDT Station ID: [id number]
[2020-06-12 14:27] LABS: ALBUMIN 4.4 g/dL (3.2-5.5); ALBUMIN/GLOBULIN RATIO 1.6 (1.0-2.2); BILIRUBIN,TOTAL 0.5 mg/dL (0.2-1.0); CALCIUM 9.1 mg/dL (8.5-10.3); CREATININE 0.8 mg/dL (0.6-1.2); TOTAL PROTEIN 7.2 g/dL (6.7-8.2)
[2020-06-12] MEDS ORDERED: IOVERSOL 320 100 ML VIAL IVP ONE ×2 (14:29→17:14)
[2020-06-12] MEDS ORDERED: KETOROLAC 30 MG/ML VIAL IVP STA (14:48)
--- NOTE | 2020-06-12 15:35 | CT Report ---
PROCEDURE: ANGIO CHEST W/WO INDICATIONS: L sided pleuritic CP CONTRAST: IV CONTRAST: Optiray 320 ml: 66 PO CONTRAST: *NO PO CONTRAST TECHNIQUE: After the administration of intravenous contrast, 2 mm thick sections acquired from the pulmonary api selam to the posterior costophrenic angles. 3-dimensional maximum intensity projection (MIP) coronal a nd sagittal reformats were then acquired through the thorax. For radiation dose reduction, the follow ing was used: automated exposure control, adjustment of mA and/or kV according to patient size. COMPARISON: Chest x-ray 06/12/2020. FINDINGS: Image quality: Injection is considered suboptimal for evaluation of emboli distal to the main pulmona ry branches. Pulmonary arteries: Pulmonary arteries are normal in size, and demonstrate no intraluminal filling d efects to suggest central pulmonary embolism. Lungs and pleura: Lungs are clear. No pleural effusions or pneumothorax. Central and peripheral ai rways are patent. Mediastinum: Heart size is normal, without pericardial effusion. No mediastinal or hilar adenopathy . Thoracic aorta is normal in caliber and enhancement. Esophagus is normal in caliber, without hiat al hernia. Bones and chest wall: Multiple areas of comminuted fracture noted within the left scapula extending t owards the inferior glenoid. These are identified on prior exams.. Nondisplaced anterior left first a s well as comminuted lateral left third rib fractures are noted. The thyroid is normal. No axillary or supraclavicular adenopathy. Abdomen: Visualized upper abdominal solid organs appear normal in the early arterial phase of enhanc ement. IMPRESSION: 1. No central pulmonary embolism. 2. Comminuted left scapular fracture, as previously identified. 3. Left first and third rib fractures. Reviewed by: Maddi Diallo MD on 06/12/2020 3:34 PM PDT Approved by: Maddi Diallo MD on 06/12/2020 3:34 PM PDT Station ID: [id number]
[2020-06-12 16:00] VITALS: BP 152/91
== END 2020-06-12 16:00 | disposition home or self-care (01) ==
LOC: EDUNIT# → ED 13:34
DX: S22.42XA Multiple fractures of ribs, left side, initial encounter for closed fracture (principal); S42.102A Fracture of unspecified part of scapula, left shoulder, initial encounter for closed fracture; V18.0XXA Pedal cycle driver injured in noncollision transport accident in nontraffic accident, initial encounter; Y93.55 Activity, bike riding
CPT/HCPCS: 36415; 71045; 71275; 80053; 83690; 84484; 85025; 93005; 96374; 99284; Q9967

== ENCOUNTER 2020-09-30 20:02 | Outpatient (CLI) | payer MEDICARE, MEDICAID ==
--- NOTE | 2020-09-30 09:34 | XRAY Report ---
PROCEDURE: Shoulder 2 View RT INDICATIONS: RIGHT SHOULDER PAIN TECHNIQUE: 2 views of the shoulder were acquired. COMPARISON: None. FINDINGS: Bones: No fractures or dislocations. No suspicious bony lesions. Visualized ribs appear intact. M oderate articular osteophyte formation at the acromioclavicular and glenohumeral joints. Soft tissues: No suspicious soft tissue calcifications. IMPRESSION: Osteoarthritis. No acute fracture. No osseous lesion. If symptoms and/or clinical suspic ion for pathology continue, further assessment with repeat plain films, or advanced imaging (e.g., CT , MRI, or bone scan) is recommended for further assessment. Reviewed by: Ramesh Arias MD on 09/30/2020 9:33 AM PST Approved by: Ramesh Arias MD on 09/30/2020 9:33 AM [facility] [[email or web address]] Station ID: [id number]
== END 2020-09-30 23:59 | disposition home or self-care (01) ==
LOC: DI.WCP 20:02
PROVIDERS: ATTEND Family Medicine
DX: M19.011 Primary osteoarthritis, right shoulder (principal)

== ENCOUNTER 2020-10-30 08:00 | Outpatient (CLI) | payer MEDICARE, MEDICAID | END 2020-10-30 23:59 | disposition home or self-care (01) | LOC: LAB.R 08:00 | PROVIDERS: ATTEND Family Medicine | DX: R05 Cough (principal); Z20.822 Contact with and (suspected) exposure to COVID-19 | CPT/HCPCS: 87275; 87276; U0004 ==

== ENCOUNTER 2020-12-09 08:00 | Outpatient (CLI) | payer MEDICARE, MEDICAID ==
[2020-12-09 18:21] LABS: CREATININE 0.6 mg/dL (0.6-1.2); POTASSIUM 3.6 mmol/L (3.5-5.0)
[2020-12-09 20:20] LABS: ESTIMATED AVERAGE GLUCOSE 200 mg/dL (70-100); HEMOGLOBIN A1c% 8.6 % (4.27-6.07)
== END 2020-12-09 23:59 | disposition home or self-care (01) ==
LOC: LAB.WCP 08:00
PROVIDERS: ATTEND Nurse Practitioner Family
DX: E11.9 Type 2 diabetes mellitus without complications (principal)
CPT/HCPCS: 36415; 80048; 83036

== ENCOUNTER 2021-01-01 07:47 | Outpatient (CLI) | payer MEDICARE, MEDICAID ==
--- NOTE | 2021-01-01 08:57 | CT Report ---
PROCEDURE: CHEST WO INDICATIONS: PULMONARY NODULE TECHNIQUE: Noncontrast 5 mm thick sections acquired from the pulmonary apices to the posterior costophrenic angl es. 7 mm thick coronal and sagittal MIP reformats were then acquired. For radiation dose reduction, the following was used: automated exposure control, adjustment of mA and/or kV according to patient size. COMPARISON: Prior chest plain films and CT scanning from June of last year. FINDINGS: Image quality: Excellent. Lungs and pleura: No acute air space opacities. No pleural effusions or pneumothorax. Central and peripheral airways are patent and normal in caliber. No pulmonary nodule is found. Mediastinum: Heart size is normal. No pericardial effusion. No mediastinal adenopathy by size crit eria. Thoracic aorta and central pulmonary arteries are normal in size. Esophagus is normal in rebecca rowena. No hiatal hernia. Bones and chest wall: No suspicious bony lesions. Old left-sided upper lateral rib fractures again noted. No nonunion fracture is seen. No vertebral body compression fractures. No axillary or supracl avicular adenopathy by size criteria. The thyroid is normal in size. Abdomen: Visualized upper abdominal solid organs and bowel loops appear normal in the absence of con trast. IMPRESSION: Old left-sided healed rib fractures in the first through third rib regions. No pulmonary mass is iden tified, no adenopathy is found. Reviewed by: Gerardo Shafer MD on 01/01/2021 8:56 AM PDT Approved by: Gerardo Shafer MD on 01/01/2021 8:56 AM PDT Station ID: [id number]
== END 2021-01-01 07:48 | disposition home or self-care (01) ==
LOC: DI 07:47
PROVIDERS: ATTEND Nurse Practitioner Family
DX: S22.42XD Multiple fractures of ribs, left side, subsequent encounter for fracture with routine healing (principal)

== ENCOUNTER 2021-05-20 08:00 | Outpatient (CLI) | payer MEDICAID, MEDICARE | END 2021-05-20 23:59 | disposition home or self-care (01) | LOC: LAB.N 08:00 | PROVIDERS: ATTEND Physician Assistant Medical | DX: A08.2 Adenoviral enteritis (principal); Z20.822 Contact with and (suspected) exposure to COVID-19 ==

== ENCOUNTER 2021-09-13 08:00 | Outpatient (CLI) | payer MEDICARE ==
[2021-09-13 18:10] LABS: BASOPHILS % (AUTO) 0.8 %; EOSINOPHILS # (AUTO) 0.2 10^3/uL (0.0-0.7); EOSINOPHILS % (AUTO) 6.1 %; HCT - HEMATOCRIT 42.2 % (42.0-52.0); HGB - HEMOGLOBIN 14.3 g/dL (14.0-18.0); LYMPHOCYTES # (AUTO) 1.5 10^3/uL (1.5-3.5); LYMPHOCYTES % (AUTO) 36.9 %; MEAN CORPUSCULAR HGB CONC 33.9 g/dL (32.0-36.0); MEAN CORPUSCULAR VOLUME 94.4 fL (80.0-94.0); MEAN PLATELET VOLUME 10.4 fL (7.4-11.4); MONOCYTES # (AUTO) 0.4 10^3/uL (0.0-1.0); MONOCYTES % (AUTO) 10.2 %; NEUTROPHILS # (AUTO) 1.8 10^3/uL (1.5-6.6); NEUTROPHILS % (AUTO) 45.7 %; PLT - PLATELET COUNT 280 10^3/uL (130-450); RED BLOOD COUNT 4.47 10^6/uL (4.70-6.10); RED CELL DISTRIBUTION WIDTH 11.6 % (12.0-15.0); WHITE BLOOD COUNT 3.9 x10^3/uL (4.8-10.8)
[2021-09-13 18:20] LABS: CREATININE,URINE 93.4 mg/dL; MICROALBUM/CREATININE RATIO,UR 5.4 ug/mg (<30.0); MICROALBUMIN,URINE 0.5 mg/dL (0-300.0)
[2021-09-13 18:25] LABS: ALBUMIN 4.9 g/dL (3.2-5.5); ALBUMIN/GLOBULIN RATIO 1.7 (1.0-2.2); ALKALINE PHOSPHATASE 105 IU/L (42-121); ALT ALANINE AMINOTRANSFERASE 67 IU/L (10-60); AST ASPARTATE AMINOTRANSFERASE 49 IU/L (10-42); BILIRUBIN,TOTAL 0.7 mg/dL (0.2-1.0); BUN - BLOOD UREA NITROGEN 9 mg/dL (6-20); CALCIUM 9.4 mg/dL (8.5-10.3); CARBON DIOXIDE - CO2 32 mmol/L (21-32); CHLORIDE 92 mmol/L (101-111); CHOL/HDL RATIO 2.3 (<5.0); CHOLESTEROL 260 mg/dL; CREATININE 0.6 mg/dL (0.6-1.2); GFR - MDRD 141 (>89); GLUCOSE 308 mg/dL (70-100); HDL CHOLESTEROL 113 mg/dL; LDL CHOLESTEROL,CALCULATED 134 mg/dL; LDL/HDL RATIO 1.2 (<3.6); POTASSIUM 4.5 mmol/L (3.5-5.0); SODIUM 134 mmol/L (135-145); TOTAL PROTEIN 7.8 g/dL (6.7-8.2); TRIGLYCERIDES 67 mg/dL; VLDL CHOLESTEROL 13 mg/dL
[2021-09-13 18:35] LABS: THYROID STIMULATING HORMONE 1.64 uIU/mL (0.34-5.60)
[2021-09-13 18:41] LABS: ESTIMATED AVERAGE GLUCOSE 243 mg/dL (70-100); HEMOGLOBIN A1c% 10.1 % (4.27-6.07)
== END 2021-09-13 23:59 ==
LOC: LAB.WCP 08:00
PROVIDERS: ATTEND Family Medicine
DX: E11.9 Type 2 diabetes mellitus without complications (principal); E03.9 Hypothyroidism, unspecified; Z20.822 Contact with and (suspected) exposure to COVID-19
CPT/HCPCS: 36415; 80053; 80061; 82043; 82570; 83036; 84443; 85025; U0004; 83721

== ENCOUNTER 2021-10-27 07:48 | Outpatient (CLI) | payer MEDICARE ==
[2021-10-27 13:42] LABS: BASOPHILS % (AUTO) 0.4 %; EOSINOPHILS # (AUTO) 0.3 10^3/uL (0.0-0.7); EOSINOPHILS % (AUTO) 5.8 %; HCT - HEMATOCRIT 39.8 % (42.0-52.0); HGB - HEMOGLOBIN 13.4 g/dL (14.0-18.0); LYMPHOCYTES # (AUTO) 1.4 10^3/uL (1.5-3.5); LYMPHOCYTES % (AUTO) 26.4 %; MEAN CORPUSCULAR HEMOGLOBIN 32.8 pg (27.0-31.0); MEAN CORPUSCULAR HGB CONC 33.7 g/dL (32.0-36.0); MEAN CORPUSCULAR VOLUME 97.3 fL (80.0-94.0); MEAN PLATELET VOLUME 10.1 fL (7.4-11.4); MONOCYTES # (AUTO) 0.8 10^3/uL (0.0-1.0); MONOCYTES % (AUTO) 14.2 %; NEUTROPHILS # (AUTO) 2.8 10^3/uL (1.5-6.6); PLT - PLATELET COUNT 215 10^3/uL (130-450); RED BLOOD COUNT 4.09 10^6/uL (4.70-6.10); RED CELL DISTRIBUTION WIDTH 12.9 % (12.0-15.0); WHITE BLOOD COUNT 5.3 x10^3/uL (4.8-10.8)
[2021-10-27 13:57] LABS: ALBUMIN 4.4 g/dL (3.2-5.5); ALBUMIN/GLOBULIN RATIO 1.3 (1.0-2.2); BILIRUBIN,TOTAL 0.8 mg/dL (0.2-1.0); CALCIUM 9.5 mg/dL (8.5-10.3); CREATININE 0.7 mg/dL (0.6-1.2); TOTAL PROTEIN 7.7 g/dL (6.7-8.2)
[2021-10-28 17:42] LABS: ESTIMATED AVERAGE GLUCOSE 177 mg/dL (70-100); HEMOGLOBIN A1c% 7.8 % (4.27-6.07)
== END 2021-10-27 07:49 | disposition home or self-care (01) ==
LOC: LAB.N 07:48
PROVIDERS: ATTEND Family Medicine
DX: Z01.812 Encounter for preprocedural laboratory examination (principal); E11.9 Type 2 diabetes mellitus without complications
CPT/HCPCS: 36415; 80053; 83036; 85025

== ENCOUNTER 2023-01-02 22:55 | Outpatient (CLI) | payer MEDICARE | END 2023-01-02 22:56 | disposition critical access hospital (66) | LOC: EMS 22:55 | DX: R45.851 Suicidal ideations (principal); Z72.89 Other problems related to lifestyle; R41.0 Disorientation, unspecified | CPT/HCPCS: A0425; A0429 ==

== ENCOUNTER 2023-01-02 23:10 | Inpatient (IN) | payer MEDICARE ==
--- NOTE | 2023-01-02 23:51 | ED Physician Documentation ---
History of Present Illness - Stated complaint Stated Complaint: ETOH, SI - Chief complaint Chief Complaint: MHE - History obtained from History obtained from: Patient, EMS - Additonal information Additional information: Patient is brought in by ambulance. HPI is from patient as well as from EMS. Patient says he has been drinking heavily on a daily basis and tonight had increasing thoughts of self-harm; he thus contacted a crisis helpline associated with [facility] and was advised to call 911. Patient called 911 and was brought to [facility] ED. Patient is crying through most of my H&P, frequently stating "I'm such a mess", "I hate my life", "I'm drunk all day all the time". At times, he tells me he wants to go home, but I am able to redirect him to the purpose of his visit and his calling the helpline in the first place (to get him the help he needs regarding his alcoholism and his thoughts of self-harm). I point out to him that if he were to leave, he would most certainly go home and drink more, and he says he does indeed have plenty more liquor at home which he would consume as soon as he were to get home. In this regard, he responds to my reassurance that we will work on getting him the help he needs. Patient says he has been having increasingly frequent falls at home although he says he does not know why this is. He cannot say with confidence whether he has recently hit his head, whether he has had any loss of consciousness from falling. Review of Systems Unable to obtain: Intoxicated (Patient is able to answer questions and review of systems fashion, but his level of inebriation puts into question the reliability of his answers) Psychiatric: reports: Depressed, Suicidal, Insomnia. denies: Hallucinations, Delusions PD PAST MEDICAL HISTORY - Past Medical History Cardiovascular: None Respiratory: None Neuro: None Endocrine/Autoimmune: None GI: None : None HEENT: None Psych: Depression Musculoskeletal: Chronic back pain Derm: None - Past Surgical History Past Surgical History: No Ortho: Spine surgery Derm: Skin grafts - Present Medications Home Medications: Ambulatory Orders Medication Instructions Recorded Confirmed Cyclobenzaprine [Flexeril] 10 - 20 mg PO HS 01/17/14 01/17/14 Diazepam 5 mg PO HS 01/17/14 01/17/14 Hydromorphone/Bupiv/0.9NACL/Pf ml IT 01/17/14 01/17/14 [Hydromorp-Bupiva 20 Mcg-0.06%] Levothyroxine [Synthroid] 125 mcg PO QDAC 01/17/14 01/17/14 [place] Carbonate 300 mg PO QAM 01/17/14 01/17/14 [place] Carbonate 600 mg PO HS 01/17/14 01/17/14 Metformin HCl 1,000 mg PO BIDWM 01/17/14 01/17/14 lamoTRIgine [LaMICtal] 100 mg PO DAILY 01/17/14 01/17/14 Cetirizine [ZyrTEC] 10 mg PO DAILY #15 tablet 04/02/19 EPINEPHrine [Epinephrine] 0.3 mg IJ ONCE PRN #1 auto.injct 04/02/19 dexAMETHasone [Decadron] 4 mg PO DAILY #5 tablet 04/02/19 Doxycycline Hyclate 100 mg PO 05/17/19 HYDROcod/ACETAM 5/325 [[place] 5/325] 1 - 2 ea PO Q6H PRN #10 tablet 06/12/20 Ibuprofen [Motrin] 800 mg PO Q8H PRN #30 tablet 06/12/20 - Allergies Allergies/Adverse Reactions: Allergies Allergy/AdvReac Type Severity Reaction Status Date / Time penicillin G Allergy Severe hearing Verified 05/17/19 16:33 loss left ear povidone-iodine Allergy Severe Respiratory Verified 05/17/19 16:33 [From Betadine] soap * [From Betadine] Allergy Severe Respiratory Verified 05/17/19 16:33 clonidine Allergy Unknown Verified 06/22/20 08:50 iodine Allergy Unknown Verified 06/22/20 08:50 nortriptyline Allergy Unknown Verified 06/22/20 08:50 shellfish derived Allergy skin Verified 05/17/19 16:33 burning Sulfa (Sulfonamide Allergy Unknown Verified 06/22/20 08:50 Antibiotics) sterile banadage Allergy Unknown Uncoded 06/22/20 08:50 steroids Allergy Unknown Uncoded 06/22/20 08:50 - Social History Does the pt smoke?: No Smoking Status: Never smoker Does the pt drink ETOH?: Yes Does the pt have substance abuse?: No - Immunizations Immunizations are current?: Yes - POLST Patient has POLST: No PD ED PE NORMAL - Vitals Vital signs reviewed: Yes - General General: Alert and oriented X 3, Well developed/nourished, Other (Patient is crying at times during H&P, and at times he is despondent. His speech is slurred but intelligible) - Neck Neck: Supple, no meningeal sign - Cardiac Cardiac: No murmur - Respiratory Respiratory: No respiratory distress, Clear bilaterally - Abdomen Abdomen: Soft, Non tender - Back Back: No spinal TTP - Derm Derm: Normal color, Warm and dry - Extremities Extremities: No edema - Neuro Eye Opening: Spontaneous Motor: Obeys Commands Verbal: Oriented GCS Score: 15 PD ED PE EXPANDED - Cardiac Cardiac: Tachy, Regular Rhythm - Psych Psych: Intoxicated / AOB, Depressed, Tearful, Anxious Results - Vitals Vitals: Vital Signs - 24 hr 01/02/23 01/03/23 01/03/23 23:19 00:30 01:30 Temperature 36.8 C Heart Rate 128 H 106 H 96 Respiratory 15 13 14 Rate Blood Pressure 156/104 H 148/103 H 140/96 H O2 Saturation 97 95 98 If not protocol 2 2 : Oxygen Flow, liters/minute 01/03/23 01/03/23 05:30 06:50 Temperature Heart Rate 94 97 Respiratory 12 16 Rate Blood Pressure 140/93 H 142/107 H O2 Saturation 92 97 If not protocol : Oxygen Flow, liters/minute Oxygen O2 Source Room air - Labs Labs: Laboratory Tests 01/03/23 01/03/23 01/03/23 00:00 00:25 00:25 WBC 4.0 L RBC 4.38 L Hgb 14.0 Hct 42.0 MCV 95.9 H MCH 32.0 H MCHC 33.3 RDW 12.1 Plt Count 198 MPV 10.4 Neut # (Auto) 1.9 Lymph # (Auto) 1.5 [place] # (Auto) 0.6 Eos # (Auto) 0.0 Baso # (Auto) 0.1 Absolute Nucleated RBC 0.00 Nucleated RBC % 0.0 PT 11.0 INR 1.0 Sodium Potassium Chloride Carbon Dioxide Anion Gap BUN Creatinine Estimated GFR (MDRD) Glucose Calcium Total Bilirubin AST ALT Alkaline Phosphatase Total Protein Albumin Globulin Albumin/Globulin Ratio Lipase TSH Urine Color YELLOW Urine Clarity CLEAR Urine pH 6.0 Ur Specific [place] <=1.005 Urine Protein TRACE Urine Glucose (UA) >=1000 H Urine Ketones TRACE Urine Occult Blood NEGATIVE Urine Nitrite NEGATIVE Urine Bilirubin NEGATIVE Urine Urobilinogen 0.2 (NORMAL) Ur Leukocyte Esterase NEGATIVE Ur Microscopic Review NOT INDICATED Urine Culture Comments NOT INDICATED Salicylates Urine Opiates Screen POSITIVE H Ur Oxycodone Screen NEGATIVE Urine Methadone Screen NEGATIVE Ur Propoxyphene Screen NEGATIVE Acetaminophen Ur Barbiturates Screen NEGATIVE Ur Tricyclics Screen NEGATIVE Ur Phencyclidine Scrn NEGATIVE Ur Amphetamine Screen NEGATIVE U Methamphetamines Scrn NEGATIVE U Benzodiazepines Scrn NEGATIVE Urine Cocaine Screen NEGATIVE U Cannabinoids Screen NEGATIVE Ethyl Alcohol 01/03/23 01/03/23 00:25 00:25 WBC RBC Hgb Hct MCV MCH MCHC RDW Plt Count MPV Neut # (Auto) Lymph # (Auto) [place] # (Auto) Eos # (Auto) Baso # (Auto) Absolute Nucleated RBC Nucleated RBC % PT INR Sodium 130 L Potassium 4.2 Chloride 91 L Carbon Dioxide 25 Anion Gap 14.0 H BUN 13 Creatinine 0.7 Estimated GFR (MDRD) 118 Glucose 330 H Calcium 8.4 L Total Bilirubin 0.8 AST 276 H ALT 193 H Alkaline Phosphatase 137 H Total Protein 7.9 Albumin 4.4 Globulin 3.5 Albumin/Globulin Ratio 1.3 Lipase 99 H TSH 4.43 Urine Color Urine Clarity Urine pH Ur Specific [place] Urine Protein Urine Glucose (UA) Urine Ketones Urine Occult Blood Urine Nitrite Urine Bilirubin Urine Urobilinogen Ur Leukocyte Esterase Ur Microscopic Review Urine Culture Comments Salicylates < 6.0 Urine Opiates Screen Ur Oxycodone Screen Urine Methadone Screen Ur Propoxyphene Screen Acetaminophen < 10 L Ur Barbiturates Screen Ur Tricyclics Screen Ur Phencyclidine Scrn Ur Amphetamine Screen U Methamphetamines Scrn U Benzodiazepines Scrn Urine Cocaine Screen U Cannabinoids Screen Ethyl Alcohol 412.9 - Rads (name of study) CT head Relevant Findings:: Prelim report reviewed, See rad report PD Medical Decision Making - ED course Complexity details: reviewed results, re-evaluated patient, considered differential, d/w patient ED course: Patient presents to the emergency department intoxicated due to ethanol with blood alcohol level of 0.412. UDS is positive for opiates although he says he has a pain pump for chronic back pain. He makes overtures of leaving the ED but is far too intoxicated and unsteady to make this decision rationally and competently. Fortunately, he does respond quite well to my reassurance that we will give him medications to help with the anxiety and the withdrawal, and that we will work on getting him into an appropriate facility if necessary (such as for depression and/or alcohol detox). The patient does seem interested in pursuing inpatient treatment. He is given IV lorazepam 2mg with repeat dosing which eventually helped him relax and get some sleep. Care of patient turned over to oncoming ED physician (Dr. Connell) at end of my shift; patient is pending SW consult and improved mentation for reevaluation of his intent regarding thoughts of self-harm as well as desire for inpatient treatment for his alcoholism Departure - Departure Clinical Impression: Alcohol intoxication, Suicidal ideation Instructions: ED Alcohol Intoxication
[2023-01-02] MEDS ORDERED: SODIUM CHLORIDE 0.9% 1,000 ML IV STA (23:59)
[2023-01-02] MEDS ORDERED: LORazepam 2 MG/ML VIAL IVP STA (23:59)
[2023-01-03 00:32] LABS: MUDS CUTOFF CONCENTRATIONS CUTOFF CONC BELOW:
[2023-01-03 00:40] LABS: BASOPHILS # (AUTO) 0.1 10^3/uL (0.0-0.1); BASOPHILS % (AUTO) 1.2 %; EOSINOPHILS % (AUTO) 0.2 %; LYMPHOCYTES # (AUTO) 1.5 10^3/uL (1.5-3.5); LYMPHOCYTES % (AUTO) 37.4 %; MEAN CORPUSCULAR HGB CONC 33.3 g/dL (32.0-36.0); MEAN CORPUSCULAR VOLUME 95.9 fL (80.0-94.0); MEAN PLATELET VOLUME 10.4 fL (7.4-11.4); MONOCYTES # (AUTO) 0.6 10^3/uL (0.0-1.0); MONOCYTES % (AUTO) 13.6 %; NEUTROPHILS # (AUTO) 1.9 10^3/uL (1.5-6.6); NEUTROPHILS % (AUTO) 46.6 %; PLT - PLATELET COUNT 198 10^3/uL (130-450); RED BLOOD COUNT 4.38 10^6/uL (4.70-6.10); RED CELL DISTRIBUTION WIDTH 12.1 % (12.0-15.0)
[2023-01-03 00:43] LABS: BILIRUBIN,URINE NEGATIVE (NEGATIVE); CLARITY,URINE CLEAR (CLEAR); GLUCOSE, URINE (UA) >=1000 mg/dL (NEGATIVE); KETONES,URINE (UA) TRACE mg/dL (NEGATIVE); LEUKOCYTE ESTERASE, URINE NEGATIVE (NEGATIVE); NITRITE,URINE NEGATIVE (NEGATIVE); OCCULT BLOOD,URINE NEGATIVE (NEGATIVE); PROTEIN,URINE TRACE mg/dL (NEGATIVE); UROBILINOGEN,URINE 0.2 (NORMAL) E.U./dL (NORMAL)
[2023-01-03 00:53] LABS: AMPHETAMINE SCREEN,URINE NEGATIVE (NEGATIVE); BARBITURATE SCREEN,UR NEGATIVE (NEGATIVE); BENZODIAZEPINES SCREEN, URINE NEGATIVE (NEGATIVE); COCAINE SCREEN URINE NEGATIVE (NEGATIVE); METHADONE SCREEN, URINE NEGATIVE (NEGATIVE); METHAMPHETAMINES SCREEN, URINE NEGATIVE (NEGATIVE); OPIATE SCREEN, URINE POSITIVE (NEGATIVE); OXYCODONE SCREEN, URINE NEGATIVE (NEGATIVE); PROPOXYPHENE SCREEN, URINE NEGATIVE (NEGATIVE); THC CANNABINOID SCREEN, URINE NEGATIVE (NEGATIVE); TRICYCLIC ANTIDEPRESSANT,URINE NEGATIVE (NEGATIVE)
[2023-01-03 00:59] LABS: ACETAMINOPHEN < 10 ug/mL (10-30); ALBUMIN 4.4 g/dL (3.2-5.5); ALBUMIN/GLOBULIN RATIO 1.3 (1.0-2.2); ALKALINE PHOSPHATASE 137 IU/L (42-121); ALT ALANINE AMINOTRANSFERASE 193 IU/L (10-60); AST ASPARTATE AMINOTRANSFERASE 276 IU/L (10-42); BILIRUBIN,TOTAL 0.8 mg/dL (0.2-1.0); BUN - BLOOD UREA NITROGEN 13 mg/dL (6-20); CALCIUM 8.4 mg/dL (8.5-10.3); CARBON DIOXIDE - CO2 25 mmol/L (21-32); CHLORIDE 91 mmol/L (101-111); CREATININE 0.7 mg/dL (0.6-1.2); ETOH - ETHANOL 412.9 mg/dL; GFR - MDRD 118 (>89); GLUCOSE 330 mg/dL (70-100); LIPASE 99 U/L (22-51); POTASSIUM 4.2 mmol/L (3.5-5.0); SALICYLATE < 6.0 mg/dL; SODIUM 130 mmol/L (135-145); TOTAL PROTEIN 7.9 g/dL (6.7-8.2)
[2023-01-03] MEDS ORDERED: LORazepam 2 MG/ML VIAL IVP STA ×5 (01:20→15:58)
--- NOTE | 2023-01-03 01:41 | CT Report ---
PROCEDURE: HEAD WO INDICATIONS: falls, AMS TECHNIQUE: Noncontrast 4.5 mm thick angled axial sections acquired from the foramen magnum to the vertex. For r adiation dose reduction, the following was used: automated exposure control, adjustment of mA and/or kV according to patient size. COMPARISON: None. FINDINGS: Image quality: Excellent. CSF spaces: There is mild cerebral volume loss with prominence of the ventricles and sulci. Basal ci sterns are patent. No extra-axial fluid collections. Brain: No intracranial hemorrhage, mass, or mass effect. Marr-white matter interface is preserved. T here are subcortical and periventricular white matter hypodensities consistent with mild chronic smal l vessel ischemic changes. Skull and face: Calvarium and visualized facial bones are intact, without suspicious lesions. Sinuses: Visualized sinuses and mastoids are clear. IMPRESSION: 1. No acute intracranial abnormality. Reviewed by: Saurabh Manning MD on 01/03/2023 1:40 AM PDT Approved by: Saurabh Manning MD on 01/03/2023 1:40 AM PDT Station ID: [id number]
[2023-01-03] MEDS ORDERED: [UNRECOGNIZED DRUG - OTHER] IV STA (06:57)
[2023-01-03] MEDS ORDERED: FOLIC ACID IV STA (06:57)
[2023-01-03] MEDS ORDERED: THIAMINE IV STA (06:57)
[2023-01-03] MEDS ORDERED: MAGNESIUM SULFATE IV STA (06:57)
--- NOTE | 2023-01-03 14:33 | XRAY Report ---
PROCEDURE: Chest 1 View X-Ray INDICATIONS: cough TECHNIQUE: One view of the chest was acquired. COMPARISON: None. FINDINGS: Surgical changes and devices: Epidural stimulator leads noted. Study is limited by rotation Lungs and pleura: No pleural effusions or pneumothorax. Lungs are clear. Mediastinum: Mediastinal contours appear normal. Heart size is normal. Bones and chest wall: No suspicious bony lesions. Overlying soft tissues appear unremarkable. IMPRESSION: No acute cardiopulmonary findings Reviewed by: Jorge Alberto Parikh MD on 01/03/2023 1:32 PM [facility] Approved by: Jorge Alberto Parikh MD on 01/03/2023 1:32 PM [facility] Station ID: [id number]
--- NOTE | 2023-01-03 16:00 | ED Physician Documentation ---
ED Addendum - Addendum Addendum: 01/03/23 15:59 We were awaiting social work evaluation, he was handed over to me by Dr. Bailey at shift change. At this point he is in fairly severe alcohol withdrawal quite shaky with CIWA scores in the mid 20s. He has been quite tachycardic, prior to the last dose of Ativan he was tachycardic into the 190s, right now in the 120s. Ativan is repeated. As such I spoke with Dr. Lovell for admission at this time. He states he is no longer suicidal. Disposition: Admission Condition: Guarded Diagnosis: 1. Alcohol withdrawal 2. Suicidal ideation resolved
[2023-01-03] MEDS ORDERED: chlordiazePOXIDE 5 MG CAPSULE PO PRN (16:05)
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
[2023-01-03] MEDS: LORazepam 2 MG/ML VIAL IVP PRN ×2 (17:48→22:32)
[2023-01-03] MEDS: SODIUM CHLORIDE FLUSH 0.9% 10 ML SYRINGE IVP SCH (17:51)
[2023-01-03] MEDS ORDERED: TAMSULOSIN 0.4 MG CAPSULE PO STA (18:29)
[2023-01-03] MEDS: ONDANSETRON ODT 4 MG TABLET TL PRN (20:00)
[2023-01-03] MEDS: ACETAMINOPHEN 325 MG TABLET PO PRN (20:01)
[2023-01-03] MEDS: METOPROLOL TARTRATE 25 MG TABLET PO SCH (20:06)
[2023-01-03] MEDS: INSULIN GLARGINE-YFGN 300 UNIT/3 ML PEN SUBQ SCH (21:46)
[2023-01-03] MEDS: INSULIN LISPRO 300 UNIT/3 ML PEN SUBQ SCH (21:47)
[2023-01-04] MEDS: chlordiazePOXIDE 5 MG CAPSULE PO SCH ×5 (00:12→23:45)
[2023-01-04] MEDS: SODIUM CHLORIDE FLUSH 0.9% 10 ML SYRINGE IVP SCH ×3 (01:21→18:00)
[2023-01-04] MEDS: LORazepam 2 MG/ML VIAL IVP PRN ×11 (01:21→22:14)
[2023-01-04] MEDS: SODIUM CHLORIDE FLUSH 0.9% 10 ML SYRINGE IVP PRN ×5 (03:01→22:14)
[2023-01-04 05:33] LABS: BASOPHILS % (AUTO) 0.5 %; EOSINOPHILS % (AUTO) 0.5 %; HCT - HEMATOCRIT 37.5 % (42.0-52.0); HGB - HEMOGLOBIN 12.5 g/dL (14.0-18.0); LYMPHOCYTES # (AUTO) 0.9 10^3/uL (1.5-3.5); LYMPHOCYTES % (AUTO) 16.2 %; MEAN CORPUSCULAR HEMOGLOBIN 31.7 pg (27.0-31.0); MEAN CORPUSCULAR HGB CONC 33.3 g/dL (32.0-36.0); MEAN CORPUSCULAR VOLUME 95.2 fL (80.0-94.0); MEAN PLATELET VOLUME 9.9 fL (7.4-11.4); MONOCYTES # (AUTO) 0.4 10^3/uL (0.0-1.0); MONOCYTES % (AUTO) 6.6 %; NEUTROPHILS # (AUTO) 4.2 10^3/uL (1.5-6.6); NEUTROPHILS % (AUTO) 75.5 %; PLT - PLATELET COUNT 136 10^3/uL (130-450); RED BLOOD COUNT 3.94 10^6/uL (4.70-6.10); RED CELL DISTRIBUTION WIDTH 11.7 % (12.0-15.0); WHITE BLOOD COUNT 5.6 x10^3/uL (4.8-10.8)
[2023-01-04 05:45] LABS: ALBUMIN 3.9 g/dL (3.2-5.5); ALBUMIN/GLOBULIN RATIO 1.3 (1.0-2.2); ALKALINE PHOSPHATASE 126 IU/L (42-121); ALT ALANINE AMINOTRANSFERASE 197 IU/L (10-60); AST ASPARTATE AMINOTRANSFERASE 304 IU/L (10-42); BILIRUBIN,TOTAL 1.4 mg/dL (0.2-1.0); BUN - BLOOD UREA NITROGEN 13 mg/dL (6-20); CALCIUM 8.5 mg/dL (8.5-10.3); CARBON DIOXIDE - CO2 26 mmol/L (21-32); CHLORIDE 95 mmol/L (101-111); CREATININE 0.5 mg/dL (0.6-1.2); ETOH - ETHANOL < 5.0 mg/dL; GFR - MDRD 173 (>89); GLUCOSE 188 mg/dL (70-100); MAGNESIUM 1.7 mg/dL (1.7-2.8); PHOSPHORUS 2.8 mg/dL (2.5-4.6); POTASSIUM 3.8 mmol/L (3.5-5.0); SODIUM 133 mmol/L (135-145)
[2023-01-04] MEDS: METOPROLOL TARTRATE 25 MG TABLET PO SCH ×2 (08:05→20:09)
[2023-01-04] MEDS: PRENATAL VITAMIN TABLET PO SCH (08:05)
[2023-01-04] MEDS: TAMSULOSIN 0.4 MG CAPSULE PO SCH (08:05)
[2023-01-04] MEDS: THIAMINE 100 MG TABLET PO SCH (08:06)
[2023-01-04] MEDS: ENOXAPARIN 40 MG/0.4 ML SYRINGE SUBQ SCH (08:11)
[2023-01-04] MEDS: ONDANSETRON ODT 4 MG TABLET TL PRN (08:22)
[2023-01-04] MEDS: INSULIN LISPRO 300 UNIT/3 ML PEN SUBQ SCH ×4 (08:27→20:20)
--- NOTE | 2023-01-04 08:50 | PROVIDER PROGRESS NOTE ---
Subjective - Prog Note Date Prog Note Date: 01/04/23 Prog Note Time: 14:40 - Subjective Subjective: When I saw him this morning, he was oriented to place and person. He was tremulous. Hungry. Asking for for Polish toast, oranges, and orange juice. He had received 5 doses of Ativan IV between yesterday and today at 2 mg each. And he was at 5 mg 3 times daily of Librium. As the morning and afternoon have gone on, he is becoming more agitated, harder to keep in bed, more tremulous. I had discussed this with nursing and at care conference this morning. Input from Social work, pharmacy, and nursing was discussed. This patient was intoxicated when he came in and was already going through withdrawals. His alcohol level was 0 this morning and I am worried that his withdrawal was going to get a get worse. He vacilates between Being alert, cooperative. Appropriate. For instance he is ordering Hungarian food to be delivered because he is hungry again. And then will become disoriented, agitated, trying to get out of bed without an assist in needs constant one-to-one supervision. He hallucinates off-and-on. Current Medications - Current Medications Current Medications: Active Medications Acetaminophen (Acetaminophen 325 Mg Tablet) 650 mg PO Q4HR PRN PRN Reason: Pain 1 to 4, or Fever Last Admin: 01/03/23 20:01 Dose: 650 mg Chlordiazepoxide HCl (Chlordiazepoxide 5 Mg Capsule) 25 mg PO Q6HR [facility] Enoxaparin Sodium (Enoxaparin 40 Mg/0.4 Ml Syringe) 40 mg SUBQ DAILY [facility] Last Admin: 01/04/23 08:11 Dose: 40 mg Ibuprofen (Ibuprofen 400 Mg Tablet) 400 mg PO Q4HR PRN PRN Reason: Pain 1 to 4 Insulin Glargine-yfgn (Insulin Glargine-Yfgn 300 Unit/3 Ml Pen) 10 unit SUBQ QPM [facility] Last Admin: 01/03/23 21:46 Dose: 10 unit Insulin Human Lispro (Insulin Lispro 300 Unit/3 Ml Pen) 1 - 9 unit SUBQ 0800,1200,1700,2100 [facility]; Protocol Last Admin: 01/04/23 12:05 Dose: 3 unit Lorazepam (Lorazepam 2 Mg/Ml Vial) 2 mg IVP Q30M PRN; Protocol PRN Reason: CIWA >8 Last Admin: 01/04/23 14:29 Dose: 2 mg Metoprolol Tartrate (Metoprolol Tartrate 25 Mg Tablet) 25 mg PO BID [facility] Last Admin: 01/04/23 08:05 Dose: 25 mg Ondansetron HCl (Ondansetron Odt 4 Mg Tablet) 4 mg TL Q6HR PRN PRN Reason: Nausea / Vomiting Last Admin: 01/04/23 08:22 Dose: 4 mg Ondansetron HCl (Ondansetron 4 Mg/2 Ml Vial) 4 mg IVP Q6HR PRN PRN Reason: Nausea / Vomiting Oxycodone HCl (Oxycodone 5 Mg Tablet) 5 mg PO Q4HR PRN PRN Reason: Pain 5 to 7 Last Admin: 01/04/23 11:15 Dose: 5 mg Multivit/Folic Acid/Iron ( Vitamin Tablet) 1 tab PO DAILY [facility] Last Admin: 01/04/23 08:05 Dose: 1 tab Sodium Chloride (Sodium Chloride Flush 0.9% 10 Ml Syringe) 10 ml IVP PRN PRN PRN Reason: NEEDED PER PROVIDER ORDERS Last Admin: 01/04/23 12:17 Dose: 10 ml Sodium Chloride (Sodium Chloride Flush 0.9% 10 Ml Syringe) 10 ml IVP 0100,0900 ,1700 [facility] Last Admin: 01/04/23 08:06 Dose: 10 ml Tamsulosin HCl (Tamsulosin 0.4 Mg Capsule) 0.4 mg PO DAILY [facility] Last Admin: 01/04/23 08:05 Dose: 0.4 mg Thiamine HCl (Thiamine 100 Mg Tablet) 100 mg PO DAILY [facility] Last Admin: 01/04/23 08:06 Dose: 100 mg Atorvastatin Calcium 1 tab PO HS 01/04/23 Dextroamphetamine/Amphetamine [Adderall 20 mg Tablet] 1 tab PO BID 01/04/23 Doxepin [SINEquan] 1 cap PO HS 01/04/23 Fluoxetine HCl [Prozac] 1 cap PO DAILY 01/04/23 Furosemide [Lasix] 1 tab PO DAILY 01/04/23 Hydromorphone HCl/Pf [Dilaudid] 9 mg IT DAILY 01/04/23 Losartan Potassium [Cozaar] 1 tab PO DAILY 01/04/23 Omeprazole 1 cap PO BID 01/04/23 Propranolol HCl 1 tab PO BID 01/04/23 cloNIDine [Catapres] 1 - 2 tab PO HS 01/04/23 Objective - Vital Signs/Intake & Output Reviewed Vital Signs: Yes Vital Signs: Vital Signs x48h Temp Pulse Resp BP BP Pulse Ox 01/04/23 08:05 151/105 H 01/04/23 07:49 36.9 C 105 H 16 151/105 H 97 01/04/23 05:15 36.8 C 86 16 165/98 H 95 Intake & Output: Intake & Output 01/01/23 01/02/23 01/03/23 01/04/23 23:59 23:59 23:59 23:59 Intake Total 2903.2 600 Output Total 125 1125 Balance 2778.2 -525 - Objective General Appearance: positive: Alert, Other (This morning was awake, alert, now alert but agitated. He cannot be coaxed or prompted at this moment in time. This morning he could be) Eyes Bilateral: positive: PERRL, EOMI ENT: positive: No signs of dehydration Neck: positive: No JVD. negative: Stiff neck Respiratory: positive: No respiratory distress. negative: Wheezes, Rales, Rhonchi Cardiovascular: positive: Regular rate & rhythm, Tachycardia Abdomen: positive: Non-tender, No organomegaly, Nml bowel sounds, No distention Skin: positive: Warm, Dry Extremities: positive: Full ROM, No pedal edema Neurologic/Psychiatric: positive: CN's nml (2-12), Disoriented to place, Disoriented to time. negative: Motor nml (Tremors at rest. Past-pointing or past grabbing. He reaches for something and then misses it and keeps on going.) - Lab Results Fish Bones: 01/04/23 05:23 01/04/23 05:23 Other Labs: Lab Results x24hrs 01/04/23 01/04/23 01/03/23 Range/Units 05:23 05:23 17:58 WBC 5.6 (4.8-10.8) x10^3/uL RBC 3.94 L (4.70-6.10) 10^6/uL Hgb 12.5 L (14.0-18.0) g/dL Hct 37.5 L (42.0-52.0) % MCV 95.2 H (80.0-94.0) fL MCH 31.7 H (27.0-31.0) pg MCHC 33.3 (32.0-36.0) g/dL RDW 11.7 L (12.0-15.0) % Plt Count 136 (130-450) 10^3/uL MPV 9.9 (7.4-11.4) fL Neut # (Auto) 4.2 (1.5-6.6) 10^3/uL Lymph # (Auto) 0.9 L (1.5-3.5) 10^3/uL [place] # (Auto) 0.4 (0.0-1.0) 10^3/uL Eos # (Auto) 0.0 (0.0-0.7) 10^3/uL Baso # (Auto) 0.0 (0.0-0.1) 10^3/uL Absolute Nucleated RBC 0.00 x10^3/uL Nucleated RBC % 0.0 /100WBC Sodium 133 L (135-145) mmol/L Potassium 3.8 (3.5-5.0) mmol/L Chloride 95 L (101-111) mmol/L Carbon Dioxide 26 (21-32) mmol/L Anion Gap 12.0 (6-13) BUN 13 (6-20) mg/dL Creatinine 0.5 L (0.6-1.2) mg/dL Estimated GFR (MDRD) 173 (>89) Glucose 188 H (70-100) mg/dL Calcium 8.5 (8.5-10.3) mg/dL Phosphorus 2.8 (2.5-4.6) mg/dL Magnesium 1.7 (1.7-2.8) mg/dL Total Bilirubin 1.4 H (0.2-1.0) mg/dL AST 304 H (10-42) IU/L ALT 197 H (10-60) IU/L Alkaline Phosphatase 126 H (42-121) IU/L Total Protein 7.0 (6.7-8.2) g/dL Albumin 3.9 (3.2-5.5) g/dL Globulin 3.1 (2.1-4.2) g/dL Albumin/Globulin Ratio 1.3 (1.0-2.2) Nasal Screen MRSA (PCR) NEGATIVE (NEGATIVE) Ethyl Alcohol < 5.0 mg/dL Assessment/Plan - Problem List (1) Alcohol withdrawal Impression: He has never had alcohol withdrawal, never had seizures, never had blackouts. And spite of being quite intoxicated by alcohol level seen on screening, he has managed to go into alcohol withdrawal. He usually drinks a gallon of alcohol a day but in the 2 days prior to admission went to 2 gallons a day. Last drink was the . This morning awake, oriented to place and person but off a little bit on the date. Still tremulous. Tachycardia resolved. Still hypertensive. He has received thiamine IV. Multivitamin IV is not available due to nationwide shortage..He has received 6 doses of Ativan 2 mg IV push between yesterday and today. He has received several doses this morning and into the afternoon. I had increased his Librium to 10 mg p.o. every 6 hours yesterday evening to today. Its not holding him. By 2:44 pm he is not able to be prompted So I have transferred him to the ICU. Plan: Thiamine 100 mg p.o. daily vitamin p.o. daily Increase Librium 10 mg p.o. every 6 hours to 25 mg po q6h on a regular schedule. My goal is to keep him sleepy but responding to my voice or the touch of my hand. CIWA protocol with Ativan 2 mg IV push q. 30 minutes as needed CIWA score Qualifiers: Complication of substance-induced condition: with perceptual disturbance Qu alified Code(s): F10.932 - Alcohol use, unspecified with withdrawal with perceptual disturbance (2) Alcohol intoxication Conclusion/Plan: Alcohol level less than 5 this morning. It was 412 yesterday. Withdrawal may actually worsen. Continue to support with IV fluids in the above protocol Qualifiers: Complication of substance-induced condition: with delirium Qualified Code(s): F10.921 - Alcohol use, unspecified with intoxication delirium (3) Alcoholic hepatitis Conclusion/Plan: He gives no history of ascites, cirrhosis. But I am surprised about that considering how long he has been drinking. INR is normal at 1.0 so his coagulation is still intact. His AST at 276 >>304 today is the highest he has ever been. In October 2021 he was 59. ALT 193>>197 today and is also the highest its ever been. In October 2021 he was 57. Plan: Ultrasound of liver Has been done. Solid massesHepatomegaly without steatosis. Gallbladder sludge without wall thickening.. Spleen is normal size and homogeneous in echotexture. The liver is big at 22.6 cm. Ducts are normal. No ascites. Qualifiers: Ascites presence: without ascites Qualified Code(s): K70.10 - Alcoholic hepatitis without ascites (4) Suicidal ideation Conclusion/Plan: With no clear plan. Statements of low self-worth. Once he is through withdrawal and no longer intoxicated, will have social work meet with him..We will then decide if DCR needs to be notified. Today he is no longer intoxicated, but still going through withdrawal. We will hold off on getting social work evaluation for suicidal ideation (5) Bipolar 1 disorder Conclusion/Plan: This gentleman takes lithium and Lamictal. I will resume both of those now that his alcohol level is 0. (6) UTI (urinary tract infection) Conclusion/Plan: He states that he still has symptoms of hematuria, urgency, but urinalysis done On the morning of admission was normal. I added Flomax on admission, he says that his urgency feels better. PSA has been drawn this morning and results pending. Qualifiers: Urinary tract infection type: site unspecified Hematuria presence: with hematuria Qualified Code(s): N39.0 - Urinary tract infection, site not specified; R31.9 - Hematuria, unspecified (7) Hypertension Conclusion/Plan: This is noted in his clinic record. But he is not on any hypertensive medications. Here he was hypertensive in the ER. 140/93, 142/107, 151/105. He was tachycardic with this in the 120s. Most likely due to withdrawal. I added a low-dose beta-guillermina 25 mg p.o. twice daily of metoprolol This morning heart rate was 105 around 7:45 am and the rest of the time in the 80s. Blood pressure still mildly elevated at 165/98, 151/105. Plan: continue 25 mg po bid of metoprolol and hopefully the increased librium will bring down the BP as well. Qualifiers: Hypertension type: primary hypertension Qualified Code(s): I10 - Essential (primary) hypertension (8) Type 2 diabetes mellitus, uncontrolled Conclusion/Plan: He takes metformin 1000 mg p.o. twice daily. In view of dehydration, fluid s hifts, liver disease, I will not resume his metformin. He was n.p.o. for his ultrasound last night. Diet was not resumed after ultrasound. I will resume his low-carb diet this morning. He is hungry. Asking for Polish toast, oranges, and orange juice. Glycosylated hemoglobin drawn and pending. Plan: review A1c once available Lantus 10 units at night Sliding scale insulin before meals and at bedtime Qualifiers: Glycemic state: with hyperglycemia Qualified Code(s): E11.65 - Type 2 diabetes mellitus with hyperglycemia (9) Chronic pain disorder Conclusion/Plan: Nursing and I discussed the case. We are aware that he has an active pump with Dilaudid infusing. I usually use 25 mg of Librium 3 times daily and acute alcohol withdrawal. However, this gentleman is getting an opioid. I do not want to over sedate him and have apnea. Hence the 5 mg Librium 3 times daily. With today's increase, we will monitor his sedation by respiratory rate and will adjust if he drops below 12/ minute. (10) Right inguinal hernia Conclusion/Plan: The clinic requested an ultrasound of his right inguinal hernia. I will discussed with general surgery since I think a CT would be better to image this area.
--- NOTE | 2023-01-04 09:44 | Ultrasound Report ---
PROCEDURE: Abdomen Complete INDICATIONS: alcoholi hepatitis TECHNIQUE: Real-time scanning was performed of the abdominal and retroperitoneal organs, with image documentatio n. COMPARISON: None. FINDINGS: Liver: Liver is enlarged measuring 22.6 cm with increased echotexture. Gallbladder: Sludge is present. Wall thickness is normal measuring 2.4 mm. Biliary ducts: Intrahepatic bile ducts are non-dilated. Extrahepatic bile duct caliber measures 5.9 mm. Normal is 6-7 mm or less in diameter, or 10 mm or less post-cholecystectomy. Pancreas: Not visualized. Spleen: Spleen is normal in size and homogeneous in echotexture. Kidneys: Kidneys are normal in size and echotexture. Right kidney measures 5.5 cm long; left kidney measures 14.6 cm long. No hydronephrosis or nephrolithiasis. No solid masses. Simple left parapel demar cyst is present measuring 2.6 x 2.1 x 2.8 cm. Aorta: Visualized aorta is normal in caliber at less than 3 cm. Iliacs: Proximal common iliac arteries are normal in caliber at less than 2.5 cm. IVC: Intrahepatic inferior vena cava is patent. Miscellaneous: No free abdominal fluid. IMPRESSION: Hepatomegaly with steatosis. Gallbladder sludge without wall thickening. Reviewed by: Maddi Diallo MD on 01/04/2023 9:42 AM PDT Approved by: Maddi Diallo MD on 01/04/2023 9:42 AM PDT Station ID: [id number]
[2023-01-04 09:50] LABS: PSA FREE 0.027 ng/mL (0.16-2.81)
[2023-01-04 09:51] LABS: PSA TOTAL 0.36 ng/mL (0.000-2.000)
[2023-01-04 10:11] LABS: ESTIMATED AVERAGE GLUCOSE 258 mg/dL (70-100); HEMOGLOBIN A1c% 10.6 % (4.27-6.07)
[2023-01-04] MEDS: oxyCODONE 5 MG TABLET PO PRN ×2 (11:15→20:10)
[2023-01-04] MEDS ORDERED: chlordiazePOXIDE 5 MG CAPSULE PO SCH ×2 (12:00→18:00)
--- NOTE | 2023-01-04 13:54 | PHARMACY PROGRESS NOTE ---
- Best Possible Medication History Admit Date and Time: 01/03/23 1558 Processed by: Pharmacy Medication History completed: Yes Patient Interview: Pt unable to participate Secondary Source(s): Pharmacy records (On IT pain pump clonidine 870mg/ml (total 261 mcg/day), hydromorphone 30mg/ml (total 9mg/day) from Dr. Ady Oleary [facility]) As the person ultimately responsible for medication therapy, providers are able to order a medication from an existing home medication list in [facility] via the "Reconcile Routine" prior to Confirmation of that medication by client support analyst. Such practice is discouraged except when the physician, in their clinical judgment, deems that a medical need exists for a medication without regard to previous use.
[2023-01-04] MEDS: INSULIN GLARGINE-YFGN 300 UNIT/3 ML PEN SUBQ SCH (20:20)
[2023-01-05] MEDS: oxyCODONE 5 MG TABLET PO PRN ×5 (00:23→19:32)
[2023-01-05] MEDS: SODIUM CHLORIDE FLUSH 0.9% 10 ML SYRINGE IVP SCH ×4 (02:24→23:05)
[2023-01-05] MEDS: LORazepam 2 MG/ML VIAL IVP PRN ×9 (03:00→20:21)
[2023-01-05] MEDS: SODIUM CHLORIDE FLUSH 0.9% 10 ML SYRINGE IVP PRN (03:00)
[2023-01-05 04:51] LABS: BASOPHILS % (AUTO) 0.6 %; EOSINOPHILS # (AUTO) 0.1 10^3/uL (0.0-0.7); EOSINOPHILS % (AUTO) 1.4 %; HCT - HEMATOCRIT 40.6 % (42.0-52.0); HGB - HEMOGLOBIN 13.2 g/dL (14.0-18.0); MEAN CORPUSCULAR HEMOGLOBIN 31.4 pg (27.0-31.0); MEAN CORPUSCULAR HGB CONC 32.5 g/dL (32.0-36.0); MEAN CORPUSCULAR VOLUME 96.4 fL (80.0-94.0); MEAN PLATELET VOLUME 10.5 fL (7.4-11.4); MONOCYTES # (AUTO) 0.4 10^3/uL (0.0-1.0); MONOCYTES % (AUTO) 6.9 %; NEUTROPHILS # (AUTO) 4.6 10^3/uL (1.5-6.6); NEUTROPHILS % (AUTO) 74.3 %; PLT - PLATELET COUNT 137 10^3/uL (130-450); RED BLOOD COUNT 4.21 10^6/uL (4.70-6.10); RED CELL DISTRIBUTION WIDTH 12.1 % (12.0-15.0); WHITE BLOOD COUNT 6.2 x10^3/uL (4.8-10.8)
[2023-01-05 05:00] LABS: CALCIUM, IONIZED 1.08 mmol/L (1.15-1.33); VBG PH 7.48 (7.31-7.41)
[2023-01-05] MEDS: chlordiazePOXIDE 5 MG CAPSULE PO SCH (05:05)
[2023-01-05 05:06] LABS: MAGNESIUM 1.7 mg/dL (1.7-2.8); PHOSPHORUS 3.4 mg/dL (2.5-4.6)
[2023-01-05] MEDS: METOPROLOL TARTRATE 25 MG TABLET PO SCH ×2 (08:03→21:51)
[2023-01-05] MEDS: CALCIUM CARBONATE CHEW 500 MG TABLET PO SCH ×2 (08:03→12:17)
[2023-01-05] MEDS: THIAMINE 100 MG TABLET PO SCH (08:04)
[2023-01-05] MEDS: TAMSULOSIN 0.4 MG CAPSULE PO SCH (08:04)
[2023-01-05] MEDS: ENOXAPARIN 40 MG/0.4 ML SYRINGE SUBQ SCH (08:04)
[2023-01-05] MEDS: PRENATAL VITAMIN TABLET PO SCH (08:04)
[2023-01-05] MEDS: INSULIN LISPRO 300 UNIT/3 ML PEN SUBQ SCH ×4 (08:26→21:51)
[2023-01-05] MEDS ORDERED: MAGNESIUM OXIDE 400 MG TABLET PO ONE (10:00)
[2023-01-05] MEDS: chlordiazePOXIDE 25 MG CAPSULE PO SCH ×3 (12:17→23:05)
[2023-01-05] MEDS: ONDANSETRON 4 MG/2 ML VIAL IVP PRN (17:08)
[2023-01-05] MEDS ORDERED: PROCHLORPERAZINE 10 MG/2 ML VIAL IVP PRN (19:39)
--- NOTE | 2023-01-05 19:44 | PROVIDER PROGRESS NOTE ---
Subjective - Prog Note Date Prog Note Date: 01/05/23 Prog Note Time: 19:42 - Subjective Subjective: He is taking the 25 mg of Librium 3 times a day, Ativan 2 mg as needed. He is awake and alert enough to tell me that he is nauseated. Not as hungry. Geoffrey is not working. This morning he says that he is still hallucinating. He is annoyed that his fontanez d coordination is so bad that he cannot open up his flip phone and he has not me do it for him. His responses "oh my God, that has been taking me an hour to do". Current Medications - Current Medications Current Medications: Active Medications Acetaminophen (Acetaminophen 325 Mg Tablet) 650 mg PO Q4HR PRN PRN Reason: Pain 1 to 4, or Fever Last Admin: 01/03/23 20:01 Dose: 650 mg Chlordiazepoxide HCl (Chlordiazepoxide 25 Mg Capsule) 25 mg PO Q6HR [facility] Last Admin: 01/05/23 17:08 Dose: 25 mg Enoxaparin Sodium (Enoxaparin 40 Mg/0.4 Ml Syringe) 40 mg SUBQ DAILY [facility] Last Admin: 01/05/23 08:04 Dose: 40 mg Ibuprofen (Ibuprofen 400 Mg Tablet) 400 mg PO Q4HR PRN PRN Reason: Pain 1 to 4 Insulin Glargine-yfgn (Insulin Glargine-Yfgn 300 Unit/3 Ml Pen) 10 unit SUBQ QPM [facility] Last Admin: 01/04/23 20:20 Dose: 10 unit Insulin Human Lispro (Insulin Lispro 300 Unit/3 Ml Pen) 1 - 9 unit SUBQ 0800,1200,1700,2100 [facility]; Protocol Last Admin: 01/05/23 17:17 Dose: 3 unit Lorazepam (Lorazepam 2 Mg/Ml Vial) 2 mg IVP Q30M PRN; Protocol PRN Reason: CIWA >8 Last Admin: 01/05/23 19:32 Dose: 2 mg Metoprolol Tartrate (Metoprolol Tartrate 25 Mg Tablet) 25 mg PO BID [facility] Last Admin: 01/05/23 08:03 Dose: 25 mg Ondansetron HCl (Ondansetron Odt 4 Mg Tablet) 4 mg TL Q6HR PRN PRN Reason: Nausea / Vomiting Last Admin: 01/04/23 08:22 Dose: 4 mg Ondansetron HCl (Ondansetron 4 Mg/2 Ml Vial) 4 mg IVP Q6HR PRN PRN Reason: Nausea / Vomiting Last Admin: 01/05/23 17:08 Dose: 4 mg Oxycodone HCl (Oxycodone 5 Mg Tablet) 5 mg PO Q4HR PRN PRN Reason: Pain 5 to 7 Last Admin: 01/05/23 19:32 Dose: 5 mg Multivit/Folic Acid/Iron ( Vitamin Tablet) 1 tab PO DAILY [facility] Last Admin: 01/05/23 08:04 Dose: 1 tab Prochlorperazine Edisylate (Prochlorperazine 10 Mg/2 Ml Vial) 10 mg IVP Q6HR PRN PRN Reason: Nausea / Vomiting Sodium Chloride (Sodium Chloride Flush 0.9% 10 Ml Syringe) 10 ml IVP PRN PRN PRN Reason: NEEDED PER PROVIDER ORDERS Last Admin: 01/05/23 03:00 Dose: 10 ml Sodium Chloride (Sodium Chloride Flush 0.9% 10 Ml Syringe) 10 ml IVP 0100,0900,1700 [facility] Last Admin: 01/05/23 17:08 Dose: 10 ml Tamsulosin HCl (Tamsulosin 0.4 Mg Capsule) 0.4 mg PO DAILY [facility] Last Admin: 01/05/23 08:04 Dose: 0.4 mg Thiamine HCl (Thiamine 100 Mg Tablet) 100 mg PO DAILY [facility] Last Admin: 01/05/23 08:04 Dose: 100 mg Atorvastatin Calcium 1 tab PO HS 01/04/23 Dextroamphetamine/Amphetamine [Adderall 20 mg Tablet] 1 tab PO BID 01/04/23 Doxepin [SINEquan] 1 cap PO HS 01/04/23 Fluoxetine HCl [Prozac] 1 cap PO DAILY 01/04/23 Furosemide [Lasix] 1 tab PO DAILY 01/04/23 Hydromorphone HCl/Pf [Dilaudid] 9 mg IT DAILY 01/04/23 Losartan Potassium [Cozaar] 1 tab PO DAILY 01/04/23 Omeprazole 1 cap PO BID 01/04/23 Propranolol HCl 1 tab PO BID 01/04/23 cloNIDine [Catapres] 1 - 2 tab PO HS 01/04/23 Objective - Vital Signs/Intake & Output Reviewed Vital Signs: Yes Vital Signs: Vital Signs x48h Temp Pulse Resp BP Pulse Ox 01/05/23 19:00 107 H 10 L 137/91 H 95 01/05/23 18:00 104 H 20 109/80 93 01/05/23 17:00 93 15 117/88 H 96 01/05/23 16:00 86 22 117/79 95 01/05/23 15:00 81 24 99/69 95 01/05/23 14:00 86 18 95/68 93 01/05/23 13:00 86 21 109/81 H 92 01/05/23 12:00 36.4 C L 104 H 14 98/72 95 Intake & Output: Intake & Output 01/02/23 01/03/23 01/04/23 01/05/23 23:59 23:59 23:59 23:59 Intake Total 2903.2 1700 600 Output Total 125 1825 500 Balance 2778.2 -125 100 - Objective General Appearance: positive: Mild distress (From the tremulousness. And he still has a headache) Eyes Bilateral: positive: PERRL, EOMI ENT: positive: No signs of dehydration Neck: positive: No JVD. negative: Stiff neck Respiratory: positive: No respiratory distress. negative: Wheezes, Rales, Rhonchi Cardiovascular: positive: Regular rate & rhythm, Tachycardia (Occasionally slightly tachycardic at 104, 107.) Abdomen: positive: Non-tender, No organomegaly, Nml bowel sounds, No distention Skin: positive: Warm, Dry. negative: Diaphoresis Extremities: positive: Full ROM, No pedal edema Neurologic/Psychiatric: positive: Oriented x3, CN's nml (2-12). negative: Motor nml (Severe enough tremors that coordination is impacted. I am folding a flip phone is hard for him. Eating is hard for him. Food falls off the fork by the time he gets to his mouth. But he does not want the nurse to feed him) - Lab Results Fish Bones: 01/05/23 04:40 01/04/23 05:23 Other Labs: Lab Results x24hrs 01/05/23 01/05/23 01/05/23 Range/Units 04:40 04:40 04:40 WBC 6.2 (4.8-10.8) x10^3/uL RBC 4.21 L (4.70-6.10) 10^6/uL Hgb 13.2 L (14.0-18.0) g/dL Hct 40.6 L (42.0-52.0) % MCV 96.4 H (80.0-94.0) fL MCH 31.4 H (27.0-31.0) pg MCHC 32.5 (32.0-36.0) g/dL RDW 12.1 (12.0-15.0) % Plt Count 137 (130-450) 10^3/uL MPV 10.5 (7.4-11.4) fL Neut # (Auto) 4.6 (1.5-6.6) 10^3/uL Lymph # (Auto) 1.0 L (1.5-3.5) 10^3/uL Isabela # (Auto) 0.4 (0.0-1.0) 10^3/uL Eos # (Auto) 0.1 (0.0-0.7) 10^3/uL Baso # (Auto) 0.0 (0.0-0.1) 10^3/uL Absolute Nucleated RBC 0.00 x10^3/uL Nucleated RBC % 0.0 /100WBC VBG pH 7.480 H (7.31-7.41) Ionized Calcium 1.08 L (1.15-1.33) mmol/L Phosphorus 3.4 (2.5-4.6) mg/dL Magnesium 1.7 (1.7-2.8) mg/dL Nasal Screen MRSA (PCR) (NEGATIVE) 01/03/23 Range/Units 15:20 WBC (4.8-10.8) x10^3/uL RBC (4.70-6.10) 10^6/uL Hgb (14.0-18.0) g/dL Hct (42.0-52.0) % MCV (80.0-94.0) fL MCH (27.0-31.0) pg MCHC (32.0-36.0) g/dL RDW (12.0-15.0) % Plt Count (130-450) 10^3/uL MPV (7.4-11.4) fL Neut # (Auto) (1.5-6.6) 10^3/uL Lymph # (Auto) (1.5-3.5) 10^3/uL Isabela # (Auto) (0.0-1.0) 10^3/uL Eos # (Auto) (0.0-0.7) 10^3/uL Baso # (Auto) (0.0-0.1) 10^3/uL Absolute Nucleated RBC x10^3/uL Nucleated RBC % /100WBC VBG pH (7.31-7.41) Ionized Calcium (1.15-1.33) mmol/L Phosphorus (2.5-4.6) mg/dL Magnesium (1.7-2.8) mg/dL Nasal Screen MRSA (PCR) NEGATIVE (NEGATIVE) Assessment/Plan - Problem List (1) Alcohol withdrawal Impression: He has never had alcohol withdrawal, never had seizures, never had blackouts. And spite of being quite intoxicated by alcohol level seen on screening, he has managed to go into alcohol withdrawal. He usually drinks a gallon of alcohol a day but in the 2 days prior to admission went to 2 gallons a day. Last drink was the . By January 04 awake, oriented to place and person but off a little bit on the date. Still tremulous. Tachycardia resolved. Still hypertensive. He has received thiamine IV. Multivitamin IV is not available due to nationwide shortage..He has received 6 doses of Ativan 2 mg IV push between yesterday and today. He has received several doses this morning and into the afternoon. I had increased his Librium to 10 mg p.o. every 6 hours yesterday evening to today. Its not holding him. By 2:44 pm he is not able to be prompted So I have transferred him to the ICU. Since last night transferred to the ICU, he is more comfortable with Librium 25 mg p.o. 3 times daily. Since about 10:00 last night he has received ten 2 mg do ses of Ativan. Amazingly, this gentleman is sitting up, talking to me. The tremors are annoying to him but he does not feel like he is in severe withdrawal. He does not like the hallucinations. Plan: Thiamine 100 mg p.o. daily vitamin p.o. daily Continue Librium 25 mg p.o. 3 times daily CIWA protocol with Ativan 2 mg IV push q. 30 minutes as needed CIWA score Compazine 10 mg IV push every 6 hours as needed for nausea Qualifiers: Complication of substance-induced condition: with perceptual disturbance Qualified Code(s): F10.932 - Alcohol use, unspecified with withdrawal with perceptual disturbance (2) Alcohol intoxication Conclusion/Plan: Alcohol level less than 5 On the morning of January 04 after being 412 on January 03. Unfortunately withdrawal did worsen as his alcohol level went to 0.. I was able to transfer him to the ICU. Increase the Librium. He is responding to that. Still more awake than I would hope but he is tolerating the discomfort.Continue to support with IV fluids in the above protocol Qualifiers: Complication of substance-induced condition: with delirium Qualified Code(s): F10.921 - Alcohol use, unspecified with intoxication delirium (3) Alcoholic hepatitis Conclusion/Plan: He gives no history of ascites, cirrhosis. But I am surprised about that considering how long he has been drinking. INR is normal at 1.0 so his coagulation is still intact. His AST at 276 >>304 today is the highest he has ever been. In October 2021 he was 59. ALT 193>>197 today and is also the highest its ever been. In October 2021 he was 57. I did not do CMP today. Ultrasound of the liver was done and he is hepatomegaly without solid masses. Gallbladder sludge without wall thickening. Spleen is normal size and homogenous in echotexture. Ducts are normal. No ascites. Plan: Supportive care. IV fluids, antiemetics, multivitamins. Qualifiers: Ascites presence: without ascites Qualified Code(s): K70.10 - Alcoholic hepatitis without ascites (4) Suicidal ideation Conclusion/Plan: With no clear plan. Statements of low self-worth. Once he is through withdrawal and no longer intoxicated, will have social work meet with him..We will then decide if DCR needs to be notified. Today he is no longer intoxicated, but still going through withdrawal. We will hold off on getting social work evaluation for suicidal ideation (5) Bipolar 1 disorder Conclusion/Plan: This gentleman takes lithium and Lamictal. I Have resumed both of those now that his alcohol level is 0. (6) UTI (urinary tract infection) Conclusion/Plan: He states that he still has symptoms of hematuria, urgency, but urinalysis done On the morning of admission was normal. I added Flomax on admission, he says that his urgency feels better. PSA 0.36. Free PSA 0.027. Percent free PSA is 8. So no prostatitis. Qualifiers: Urinary tract infection type: site unspecified Hematuria presence: with hematuria Qualified Code(s): N39.0 - Urinary tract infection, site not specified; R31.9 - Hematuria, unspecified (7) Hypertension Conclusion/Plan: This is noted in his clinic record. But he is not on any hypertensive medications. Here he was hypertensive in the ER. 140/93, 142/107, 151/105. He was tachycardic with this in the 120s. Most likely due to withdrawal. I added a low-dose beta-guillermina 25 mg p.o. twice daily of metoprolol Heart rate stays in the 80s and 90s. Occasionally comes up above 100. But then goes back down again. Blood pressure today is better. 117/79, 117/88, 1 37/91.In addition to the metoprolol, I think the increase Librium has also brought down his blood pressure. Plan: continue 25 mg po bid of metoprolol Qualifiers: Hypertension type: primary hypertension Qualified Code(s): I10 - Essential (primary) hypertension (8) Type 2 diabetes mellitus, uncontrolled Conclusion/Plan: He takes metformin 1000 mg p.o. twice daily. In view of dehydration, fluid shif ts, liver disease, I will not resume his metformin. He was n.p.o. for his ultrasound last night. Diet was not resumed after ultrasound. I resumed his low-carb diet on January 04. Waxing and waning appetite. He really likes his orange juice though. Glycosylated hemoglobin is 10.6%. On sliding scale glucose was 171, 208, 215, 188 yesterday. Today he is 150, 210, 186. So prior to admission his glucose was uncontrolled. And his glucose is now starting to climb since he is eating. I also really do not want to take away his oranges considering he is enjoying it. Plan: Increase the Lantus of 10 units at night to 15 units at night. Sliding scale insulin before meals and at bedtime Qualifiers: Glycemic state: with hyperglycemia Qualified Code(s): E11.65 - Type 2 diabetes mellitus with hyperglycemia (9) Chronic pain disorder Conclusion/Plan: Nursing and I discussed the case. We are aware that he has an active pump with Dilaudid infusing. I usually use 25 mg of Librium 3 times daily and acute alcohol withdrawal. However, this gentleman is getting an opioid. I do not want to over sedate him and have apnea. Hence I started at 5 mg Librium 3 times daily. I then quickly went up to 10 mg Librium, then 25 mg Librium. Even with this much Librium and a Dilaudid pump, he is not sedated. Not apneic. (10) Right inguinal hernia Conclusion/Plan: The clinic requested an ultrasound of his right inguinal hernia. General surgery said a CT or an ultrasound can be done. It did not matter. I will consider doing an ultrasound before discharge.
[2023-01-05] MEDS: INSULIN GLARGINE-YFGN 300 UNIT/3 ML PEN SUBQ SCH (21:50)
[2023-01-06] MEDS: oxyCODONE 5 MG TABLET PO PRN ×4 (04:25→21:24)
[2023-01-06] MEDS: chlordiazePOXIDE 25 MG CAPSULE PO SCH ×3 (05:02→17:13)
[2023-01-06 05:30] LABS: BASOPHILS % (AUTO) 0.6 %; EOSINOPHILS # (AUTO) 0.1 10^3/uL (0.0-0.7); EOSINOPHILS % (AUTO) 1.8 %; HCT - HEMATOCRIT 41.7 % (42.0-52.0); HGB - HEMOGLOBIN 13.7 g/dL (14.0-18.0); LYMPHOCYTES # (AUTO) 1.3 10^3/uL (1.5-3.5); MEAN CORPUSCULAR HEMOGLOBIN 32.1 pg (27.0-31.0); MEAN CORPUSCULAR HGB CONC 32.9 g/dL (32.0-36.0); MEAN CORPUSCULAR VOLUME 97.7 fL (80.0-94.0); MEAN PLATELET VOLUME 11.3 fL (7.4-11.4); MONOCYTES # (AUTO) 0.4 10^3/uL (0.0-1.0); NEUTROPHILS # (AUTO) 2.9 10^3/uL (1.5-6.6); NEUTROPHILS % (AUTO) 60.2 %; PLT - PLATELET COUNT 144 10^3/uL (130-450); RED BLOOD COUNT 4.27 10^6/uL (4.70-6.10); RED CELL DISTRIBUTION WIDTH 12.3 % (12.0-15.0); WHITE BLOOD COUNT 4.9 x10^3/uL (4.8-10.8)
[2023-01-06 05:38] LABS: ALBUMIN 3.5 g/dL (3.2-5.5); BILIRUBIN,TOTAL 1.4 mg/dL (0.2-1.0); CALCIUM 9.1 mg/dL (8.5-10.3); CREATININE 0.6 mg/dL (0.6-1.2); MAGNESIUM 1.7 mg/dL (1.7-2.8); PHOSPHORUS 3.8 mg/dL (2.5-4.6); POTASSIUM 3.7 mmol/L (3.5-5.0); TOTAL PROTEIN 6.9 g/dL (6.7-8.2)
[2023-01-06] MEDS: INSULIN LISPRO 300 UNIT/3 ML PEN SUBQ SCH ×4 (08:25→21:33)
[2023-01-06] MEDS: ENOXAPARIN 40 MG/0.4 ML SYRINGE SUBQ SCH (08:27)
[2023-01-06] MEDS: METOPROLOL TARTRATE 25 MG TABLET PO SCH ×2 (08:27→10:05)
[2023-01-06] MEDS: MAGNESIUM OXIDE 400 MG TABLET PO SCH ×2 (08:27→13:46)
[2023-01-06] MEDS: SODIUM CHLORIDE FLUSH 0.9% 10 ML SYRINGE IVP SCH ×2 (08:28→17:13)
[2023-01-06] MEDS: THIAMINE 100 MG TABLET PO SCH (08:28)
[2023-01-06] MEDS: PRENATAL VITAMIN TABLET PO SCH (08:28)
[2023-01-06] MEDS: TAMSULOSIN 0.4 MG CAPSULE PO SCH (08:28)
[2023-01-06] MEDS: ONDANSETRON 4 MG/2 ML VIAL IVP PRN ×3 (08:29→21:25)
[2023-01-06] MEDS: LORazepam 2 MG/ML VIAL IVP PRN ×4 (08:29→15:03)
[2023-01-06] MEDS: ACETAMINOPHEN 325 MG TABLET PO PRN ×2 (08:29→16:09)
[2023-01-06] MEDS ORDERED: POTASSIUM CHLORIDE 20 MEQ TABLET PO ONE ×3 (09:00→22:54)
[2023-01-06] MEDS: polyethylene glycoL 3350 17 GM PACKET PO SCH (11:12)
[2023-01-06] MEDS: IBUPROFEN 400 MG TABLET PO PRN (11:12)
--- NOTE | 2023-01-06 14:39 | PROVIDER PROGRESS NOTE ---
Subjective - Prog Note Date Prog Note Date: 01/06/23 Prog Note Time: 14:37 - Subjective Subjective: He continues to be easily awakened by my voice or touch. Still tremulous. Still feels like he is in the midst of withdrawal with the shakes. Hallucinatio ns are less and less but he is still hallucinating. Tremors appear to be slightly better today and that he is able to bring food to his mouth better. Is not falling off the fork. He is asking that his medications of Adderall, Prozac, Sinequan, Lasix, atorvastatin, Cozaar, propranolol, and omeprazole be resumed. Current Medications - Current Medications Current Medications: Active Medications Acetaminophen (Acetaminophen 325 Mg Tablet) 650 mg PO Q4HR PRN PRN Reason: Pain 1 to 4, or Fever Last Admin: 01/06/23 08:29 Dose: 650 mg Atorvastatin Calcium (Atorvastatin 40 Mg Tablet) 40 mg PO HS RAND Chlordiazepoxide HCl (Chlordiazepoxide 25 Mg Capsule) 25 mg PO Q6HR RAND Last Admin: 01/06/23 11:12 Dose: 25 mg Clonidine HCl (Clonidine 0.1 Mg Tablet) 0.1 mg PO HS RAND Doxepin HCl (Doxepin 10 Mg Capsule) 10 mg PO HS RAND Enoxaparin Sodium (Enoxaparin 40 Mg/0.4 Ml Syringe) 40 mg SUBQ DAILY RAND Last Admin: 01/06/23 08:27 Dose: 40 mg Furosemide (Furosemide 20 Mg Tablet) 20 mg PO DAILY RAND Ibuprofen (Ibuprofen 400 Mg Tablet) 400 mg PO Q4HR PRN PRN Reason: Pain 1 to 4 Last Admin: 01/06/23 11:12 Dose: 400 mg Insulin Glargine-yfgn (Insulin Glargine-Yfgn 300 Unit/3 Ml Pen) 10 unit SUBQ QPM RAND Last Admin: 01/05/23 21:50 Dose: 10 unit Insulin Human Lispro (Insulin Lispro 300 Unit/3 Ml Pen) 1 - 9 unit SUBQ 0800,1200,1700,2100 RAND; Protocol Last Admin: 01/06/23 12:03 Dose: 7 unit Lorazepam (Lorazepam 2 Mg/Ml Vial) 2 mg IVP Q30M PRN; Protocol PRN Reason: CIWA >8 Last Admin: 01/06/23 12:36 Dose: 2 mg Non-Formulary Medication (Fluoxetine Hcl [Prozac]) 1 cap PO DAILY [facility] Non-Formulary Medication (Losartan Potassium [Cozaar]) 1 tab PO DAILY [facility] Non-Formulary Medication (Propranolol Hcl [Propranolol Hcl]) 1 tab PO BID [facility] Ondansetron HCl (Ondansetron Odt 4 Mg Tablet) 4 mg TL Q6HR PRN PRN Reason: Nausea / Vomiting Last Admin: 01/04/23 08:22 Dose: 4 mg Ondansetron HCl (Ondansetron 4 Mg/2 Ml Vial) 4 mg IVP Q6HR PRN PRN Reason: Nausea / Vomiting Last Admin: 01/06/23 08:29 Dose: 4 mg Oxycodone HCl (Oxycodone 5 Mg Tablet) 5 mg PO Q4HR PRN PRN Reason: Pain 5 to 7 Last Admin: 01/06/23 09:59 Dose: 5 mg Polyethylene Glycol (Polyethylene Glycol 3350 17 Gm Packet) 17 gm PO DAILY [facility] Last Admin: 01/06/23 11:12 Dose: 17 gm Multivit/Folic Acid/Iron ( Vitamin Tablet) 1 tab PO DAILY [facility] Last Admin: 01/06/23 08:28 Dose: 1 tab Prochlorperazine Edisylate (Prochlorperazine 10 Mg/2 Ml Vial) 10 mg IVP Q6HR PRN PRN Reason: Nausea / Vomiting Last Admin: 01/05/23 21:00 Dose: 10 mg Sodium Chloride (Sodium Chloride Flush 0.9% 10 Ml Syringe) 10 ml IVP PRN PRN PRN Reason: NEEDED PER PROVIDER ORDERS Last Admin: 01/05/23 03:00 Dose: 10 ml Sodium Chloride (Sodium Chloride Flush 0.9% 10 Ml Syringe) 10 ml IVP 0100, 0900,1700 [facility] Last Admin: 01/06/23 08:28 Dose: 10 ml Tamsulosin HCl (Tamsulosin 0.4 Mg Capsule) 0.4 mg PO DAILY [facility] Last Admin: 01/06/23 08:28 Dose: 0.4 mg Thiamine HCl (Thiamine 100 Mg Tablet) 100 mg PO DAILY [facility] Last Admin: 01/06/23 08:28 Dose: 100 mg Atorvastatin Calcium 1 tab PO HS 01/04/23 Dextroamphetamine/Amphetamine [Adderall 20 mg Tablet] 1 tab PO BID 01/04/23 Doxepin [SINEquan] 1 cap PO HS 01/04/23 Fluoxetine HCl [Prozac] 1 cap PO DAILY 01/04/23 Furosemide [Lasix] 1 tab PO DAILY 01/04/23 Hydromorphone HCl/Pf [Dilaudid] 9 mg IT DAILY 01/04/23 Losartan Potassium [Cozaar] 1 tab PO DAILY 01/04/23 Omeprazole 1 cap PO BID 01/04/23 Propranolol HCl 1 tab PO BID 01/04/23 cloNIDine [Catapres] 1 - 2 tab PO HS 01/04/23 Objective - Vital Signs/Intake & Output Reviewed Vital Signs: Yes Vital Signs: Vital Signs x48h Temp Pulse Resp BP Pulse Ox 01/06/23 14:00 90 15 101/76 94 01/06/23 13:00 87 17 97/69 95 01/06/23 12:00 123 H 20 128/97 H 99 01/06/23 11:48 37.2 C 01/06/23 11:00 95 15 116/82 H 97 01/06/23 10:00 87 16 116/93 H 95 01/06/23 09:00 88 13 102/89 H 97 01/06/23 08:00 89 14 105/72 92 01/06/23 07:36 37.5 C 01/06/23 07:00 98 12 117/80 96 Intake & Output: Intake & Output 01/03/23 01/04/23 01/05/23 01/06/23 23:59 23:59 23:59 23:59 Intake Total 2903.2 1700 600 760 Output Total 125 1825 1075 800 Balance 2778.2 -125 -475 -40 - Objective General Appearance: positive: Other (He was asleep, woke up with my touch and nurses voice. Knows where he is, knows why he is here.) Eyes Bilateral: positive: PERRL, EOMI Neck: positive: No JVD. negative: Stiff neck Respiratory: positive: No respiratory distress. negative: Wheezes, Rales, Rhonchi Cardiovascular: positive: Regular rate & rhythm, Tachycardia (Is sporadic. Occurs throughout the day off and on. This morning we had to hold his metoprol ol because of hypotension and bradycardia) Abdomen: positive: Non-tender, No organomegaly, Nml bowel sounds, No distention Skin: positive: Warm, Dry Extremities: positive: Full ROM, Pedal edema (Trace around the ankles) Neurologic/Psychiatric: positive: CN's nml (2-12), Disoriented to time. negativ e: Motor nml (He holds out his hands, still has tremor.) - Lab Results Fish Bones: 01/06/23 04:30 01/06/23 04:30 Other Labs: Lab Results x24hrs 01/06/23 01/06/23 01/03/23 Range/Units 04:30 04:30 15:20 WBC 4.9 (4.8-10.8) x10^3/uL RBC 4.27 L (4.70-6.10) 10^6/uL Hgb 13.7 L (14.0-18.0) g/dL Hct 41.7 L (42.0-52.0) % MCV 97.7 H (80.0-94.0) fL MCH 32.1 H (27.0-31.0) pg MCHC 32.9 (32.0-36.0) g/dL RDW 12.3 (12.0-15.0) % Plt Count 144 (130-450) 10^3/uL MPV 11.3 (7.4-11.4) fL Neut # (Auto) 2.9 (1.5-6.6) 10^3/uL Lymph # (Auto) 1.3 L (1.5-3.5) 10^3/uL Nash # (Auto) 0.4 (0.0-1.0) 10^3/uL Eos # (Auto) 0.1 (0.0-0.7) 10^3/uL Baso # (Auto) 0.0 (0.0-0.1) 10^3/uL Absolute Nucleated RBC 0.00 x10^3/uL Nucleated RBC % 0.0 /100WBC Sodium 135 (135-145) mmol/L Potassium 3.7 (3.5-5.0) mmol/L Chloride 96 L (101-111) mmol/L Carbon Dioxide 26 (21-32) mmol/L Anion Gap 13.0 (6-13) BUN 17 (6-20) mg/dL Creatinine 0.6 (0.6-1.2) mg/dL Estimated GFR (MDRD) 140 (>89) Glucose 213 H (70-100) mg/dL Calcium 9.1 (8.5-10.3) mg/dL Phosphorus 3.8 (2.5-4.6) mg/dL Magnesium 1.7 (1.7-2.8) mg/dL Total Bilirubin 1.4 H (0.2-1.0) mg/dL AST 188 H (10-42) IU/L ALT 187 H (10-60) IU/L Alkaline Phosphatase 130 H (42-121) IU/L Total Protein 6.9 (6.7-8.2) g/dL Albumin 3.5 (3.2-5.5) g/dL Globulin 3.4 (2.1-4.2) g/dL Albumin/Globulin Ratio 1.0 (1.0-2.2) Nasal Screen MRSA (PCR) NEGATIVE (NEGATIVE) Assessment/Plan - Problem List (1) Alcohol withdrawal Impression: He has never had alcohol withdrawal, never had seizures, never had blackouts. And spite of being quite intoxicated by alcohol level seen on screening, he has managed to go into alcohol withdrawal. He usually drinks a gallon of alcohol a day but in the 2 days prior to admission went to 2 gallons a day. Last drink was the . By January 04 awake, oriented to place and person but off a little bit on the date. Still tremulous. Tachycardia resolved. Still hypertensive. He has received thiamine IV. Multivitamin IV is not available due to nationwide shortage..He has received 6 doses of Ativan 2 mg IV push between yesterday and today. He has received several doses this morning and into the afternoon. I had increased his Librium to 10 mg p.o. every 6 hours yesterday evening to today. Its not holding him. By 2:44 pm he is not able to be prompted So I have transferred him to the ICU. Once in ICU 01/04 and on librium 25 mg po tid, he was more comfortable on 01/05. Over the 24 hours of January 05 he received 9 doses of 2 mg of Ativan. Since midnight last night, into today, he has received 3 doses of 2 mg of IV Ativan. he appears to be slowing down with his Ativan requirement. But he still hallucinating. Still tremulous. Plan: Thiamine 100 mg p.o. daily vitamin p.o. daily Continue Librium 25 mg p.o. 3 times daily CIWA protocol with Ativan 2 mg IV push q. 30 minutes as needed CIWA score Compazine 10 mg IV push every 6 hours as needed for nausea I am encouraging nursing to get him out of bed. At least sit up in a chair to eat. Qualifiers: Complication of substance-induced condition: with perceptual disturbance Qualified Code(s): F10.932 - Alcohol use, unspecified with withdrawal with perceptual disturbance (2) Alcohol intoxication Conclusion/Plan: Alcohol level less than 5 On the morning of January 04 after being 412 on January 03. Unfortunately withdrawal did worsen as his alcohol level went to 0.. I was able to transfer him to the ICU. Increase the Librium. He is responding to that. Still more awake than I would hope but he is tolerating the discomfort. Continue to support with IV fluids with the above protocol Qualifiers: Complication of substance-induced condition: with delirium Qualified Code(s): F10.921 - Alcohol use, unspecified with intoxication delirium (3) Alcoholic hepatitis Conclusion/Plan: He gives no history of ascites, cirrhosis. But I am surprised about that considering how long he has been drinking. INR is normal at 1.0 so his coagulation is still intact. His AST at 276 >>304>>188 today is the highest he has ever been. In October 2021 he was 59. ALT 193>>197>>187 today and is also the highest its ever been. In October 2021 he was 57. Ultrasound of the liver was done and he is hepatomegaly without solid masses. Gallbladder sludge without wall thickening. Spleen is normal size and homogenous in echotexture. Ducts are normal. No ascites. Plan: Supportive care. IV fluids, antiemetics, multivitamins. Qualifiers: Ascites presence: without ascites Qualified Code(s): K70.10 - Alcoholic hepatitis without ascites (4) Suicidal ideation Conclusion/Plan: With no clear plan. Statements of low self-worth. Once he is through withdrawal and no longer intoxicated, will have social work meet with him..We will then decide if DCR needs to be notified. Today he is no longer intoxicated, but still going through withdrawal. We will hold off on getting social work evaluation for suicidal ideation (5) Bipolar 1 disorder Conclusion/Plan: This gentleman takes lithium and Lamictal. I Have resumed both of those now that his alcohol level is 0. I will also resume his Prozac, Sinequan. (6) UTI (urinary tract infection) Conclusion/Plan: He states that he still has symptoms of hematuria, urgency, but urinalysis done On the morning of admission was normal. I added Flomax on admission, he says that his urgency feels better. PSA 0.36. Free PSA 0.027. Percent free PSA is 8. So no prostatitis. Qualifiers: Urinary tract infection type: site unspecified Hematuria presence: with hematuria Qualified Code(s): N39.0 - Urinary tract infection, site not specified; R31.9 - Hematuria, unspecified (7) Hypertension Conclusion/Plan: This is noted in his clinic record. But he is not on any hypertensive medications Listed on his medication list on admission.. Here he was hypertensive in the ER. 140/93, 142/107, 151/105. He was tachycardic with this in the 120s. Most likely due to withdrawal. I added a low-dose beta-guillermina 25 mg p.o. twice daily of metoprolol Heart rate stays in the 80s and 90s. Occasionally comes up above 100. But then goes back down again. Blood pressure today is better. 117/79, 117/88, 137/91.In addition to the metoprolol, I think the increase Librium has also brought down his blood pressure. Then pharmacy reconciled his medication list. He is on Lasix, Cozaar, propranolol. Plan: Discontinue metoprolol. Resume propranolol 20 mg p.o. twice daily, Cozaar 100 mg p.o. daily, Lasix 20 mg daily. I will have parameters to hold less than systolic 110, or pulse less than 60. Qualifiers: Hypertension type: primary hypertension Qualified Code(s): I10 - Essential (primary) hypertension (8) Type 2 diabetes mellitus, uncontrolled Conclusion/Plan: He takes metformin 1000 mg p.o. twice daily. In view of dehydration, fluid shifts, liver disease, I will not resume his metformin. He was n.p.o. for his ultrasound last night. Diet was not resumed after ultrasound. I resumed his low-carb diet on March 29. Waxing and waning appetite. He really likes his orange juice though. Glycosylated hemoglobin is 10.6%. As such, glucose is uncontrolled prior to admission. I had put him on Lantus 10 units at night. Thought I had increased up to 15 units last night but did not. Glucose yesterday was 150, 210, 186, 220. Today glucose is 221, 290. Plan: Increase the Lantus of 10 units at night to 15 units at night. Continue Sliding scale insulin before meals and at bedtime Qualifiers: Glycemic state: with hyperglycemia Qualified Code(s): E11.65 - Type 2 diabetes mellitus with hyperglycemia (9) Chronic pain disorder Conclusion/Plan: Nursing and I discussed the case. We are aware that he has an active pump with Dilaudid infusing. I usually use 25 mg of Librium 3 times daily and acute alcohol withdrawal. However, this gentleman is getting an opioid. I do not want to over sedate him and have apnea. Hence I started at 5 mg Librium 3 times daily. I then quickly went up to 10 mg Librium, then 25 mg Librium. Even with this much Librium and a Dilaudid pump, he is not sedated. Not apneic. (10) Right inguinal hernia Conclusion/Plan: The clinic requested an ultrasound of his right inguinal hernia. General surgery said a CT or an ultrasound can be done. It did not matter. I will consider doing an ultrasound before discharge.
[2023-01-06 17:06] LABS: MAGNESIUM 1.6 mg/dL (1.7-2.8); POTASSIUM 3.8 mmol/L (3.5-5.0)
[2023-01-06] MEDS ORDERED: MAGNESIUM OXIDE 400 MG TABLET PO ONE (17:21)
[2023-01-06] MEDS ORDERED: INSULIN GLARGINE-YFGN 300 UNIT/3 ML PEN SUBQ SCH (21:00)
[2023-01-06] MEDS: PROPRANOLOL 10 MG TABLET PO SCH (21:24)
[2023-01-06] MEDS: DOXEPIN 10 MG CAPSULE PO SCH (21:25)
[2023-01-06] MEDS: SODIUM CHLORIDE FLUSH 0.9% 10 ML SYRINGE IVP PRN (21:25)
[2023-01-06] MEDS: cloNIDine 0.1 MG TABLET PO SCH (21:25)
[2023-01-06] MEDS: ATORVASTATIN 40 MG TABLET PO SCH (21:25)
[2023-01-06 22:18] LABS: MAGNESIUM 1.7 mg/dL (1.7-2.8); POTASSIUM 3.8 mmol/L (3.5-5.0)
[2023-01-07] MEDS: IBUPROFEN 400 MG TABLET PO PRN ×2 (00:22→08:15)
[2023-01-07] MEDS: chlordiazePOXIDE 25 MG CAPSULE PO SCH ×2 (00:22→05:41)
[2023-01-07] MEDS: MAGNESIUM OXIDE 400 MG TABLET PO SCH ×2 (00:22→05:42)
[2023-01-07] MEDS: SODIUM CHLORIDE FLUSH 0.9% 10 ML SYRINGE IVP SCH ×3 (00:23→17:29)
[2023-01-07 05:19] LABS: BASOPHILS % (AUTO) 0.4 %; EOSINOPHILS # (AUTO) 0.1 10^3/uL (0.0-0.7); EOSINOPHILS % (AUTO) 2.2 %; HCT - HEMATOCRIT 37.4 % (42.0-52.0); HGB - HEMOGLOBIN 12.4 g/dL (14.0-18.0); LYMPHOCYTES % (AUTO) 22.9 %; MEAN CORPUSCULAR HEMOGLOBIN 32.5 pg (27.0-31.0); MEAN CORPUSCULAR HGB CONC 33.2 g/dL (32.0-36.0); MEAN CORPUSCULAR VOLUME 97.9 fL (80.0-94.0); MEAN PLATELET VOLUME 10.3 fL (7.4-11.4); MONOCYTES # (AUTO) 0.6 10^3/uL (0.0-1.0); MONOCYTES % (AUTO) 14.1 %; NEUTROPHILS # (AUTO) 2.7 10^3/uL (1.5-6.6); NEUTROPHILS % (AUTO) 59.3 %; PLT - PLATELET COUNT 153 10^3/uL (130-450); RED BLOOD COUNT 3.82 10^6/uL (4.70-6.10); RED CELL DISTRIBUTION WIDTH 12.6 % (12.0-15.0); WHITE BLOOD COUNT 4.5 x10^3/uL (4.8-10.8)
[2023-01-07 05:22] LABS: VBG PH 7.409 (7.31-7.41)
[2023-01-07 05:23] LABS: CALCIUM, IONIZED 1.11 mmol/L (1.15-1.33)
[2023-01-07 05:31] LABS: ALBUMIN 3.2 g/dL (3.2-5.5); ALBUMIN/GLOBULIN RATIO 1.1 (1.0-2.2); BILIRUBIN,TOTAL 1.2 mg/dL (0.2-1.0); CALCIUM 8.6 mg/dL (8.5-10.3); CREATININE 0.7 mg/dL (0.6-1.2); POTASSIUM 4.1 mmol/L (3.5-5.0); TOTAL PROTEIN 6.2 g/dL (6.7-8.2)
[2023-01-07] MEDS: INSULIN LISPRO 300 UNIT/3 ML PEN SUBQ SCH ×4 (07:54→21:11)
[2023-01-07] MEDS: ENOXAPARIN 40 MG/0.4 ML SYRINGE SUBQ SCH (08:13)
[2023-01-07] MEDS: FLUoxetine 10 MG CAPSULE PO SCH (08:13)
[2023-01-07] MEDS: TAMSULOSIN 0.4 MG CAPSULE PO SCH (08:14)
[2023-01-07] MEDS: THIAMINE 100 MG TABLET PO SCH (08:14)
[2023-01-07] MEDS: polyethylene glycoL 3350 17 GM PACKET PO SCH (08:14)
[2023-01-07] MEDS: FUROSEMIDE 20 MG TABLET PO SCH (08:14)
[2023-01-07] MEDS: PRENATAL VITAMIN TABLET PO SCH (08:14)
[2023-01-07] MEDS: PROPRANOLOL 10 MG TABLET PO SCH (10:05)
[2023-01-07] MEDS: LOSARTAN 50 MG TABLET PO SCH (10:05)
[2023-01-07] MEDS: ACETAMINOPHEN 325 MG TABLET PO PRN ×2 (11:19→21:06)
[2023-01-07] MEDS ORDERED: chlordiazePOXIDE 25 MG CAPSULE PO SCH (14:00)
[2023-01-07] MEDS ORDERED: PROPRANOLOL 10 MG TABLET PO PRN (14:05)
[2023-01-07] MEDS: chlordiazePOXIDE 5 MG CAPSULE PO SCH ×2 (14:36→22:39)
--- NOTE | 2023-01-07 15:09 | PROVIDER PROGRESS NOTE ---
Subjective - Prog Note Date Prog Note Date: 01/07/23 Prog Note Time: 15:09 - Subjective Subjective: He just says he has a headache. Very sleepy this morning. Much less tremulous when I have him hold out his hand. Able to eat better and bring food to his mouth. Current Medications - Current Medications Current Medications: Active Medications Generic Name Dose Route Start Last Admin Trade Name Freq PRN Reason Stop Dose Admin Acetaminophen 650 mg 01/03/23 15:58 01/07/23 11:19 Acetaminophen 325 Mg Tablet PO 650 mg Q4HR PRN Administration Pain 1 to 4, or Fever Atorvastatin Calcium 40 mg 01/06/23 21:00 01/06/23 21:25 Atorvastatin 40 Mg Tablet PO 40 mg HS RAND Administration Chlordiazepoxide HCl 10 mg 01/07/23 15:00 01/07/23 14:36 Chlordiazepoxide 5 Mg Capsule PO 10 mg Q8H RAND Administration Clonidine HCl 0.1 mg 01/06/23 21:00 01/06/23 21:25 Clonidine 0.1 Mg Tablet PO 0.1 mg HS RAND Administration Doxepin HCl 10 mg 01/06/23 21:00 01/06/23 21:25 Doxepin 10 Mg Capsule PO 10 mg HS RAND Administration Enoxaparin Sodium 40 mg 01/04/23 09:00 01/07/23 08:13 Enoxaparin 40 Mg/0.4 Ml Syringe SUBQ 40 mg DAILY RAND Administration Fluoxetine HCl 20 mg 01/07/23 09:00 01/07/23 08:13 Fluoxetine 10 Mg Capsule PO 20 mg DAILY RAND Administration Furosemide 20 mg 01/07/23 09:00 01/07/23 08:14 Furosemide 20 Mg Tablet PO 20 mg DAILY RAND Administration Ibuprofen 400 mg 01/03/23 15:58 01/07/23 08:15 Ibuprofen 400 Mg Tablet PO 400 mg Q4HR PRN Administration Pain 1 to 4 Insulin Glargine-yfgn 15 unit 01/06/23 21:00 01/06/23 21:34 Insulin Glargine-Yfgn 300 Unit/3 Ml Pen SUBQ 15 unit QPM RAND Administration Insulin Human Lispro 2 - 10 unit 01/06/23 21:00 01/07/23 17:29 Insulin Lispro 300 Unit/3 Ml Pen SUBQ 2 unit 0800,1200,1700,2100 RAND Administration Protocol Lorazepam 2 mg 03/28/23 16:01 01/06/23 15:03 Lorazepam 2 Mg/Ml Vial IVP 2 mg Q30M PRN Administration CIWA >8 Protocol Losartan Potassium 100 mg 01/07/23 09:00 01/07/23 10:05 Losartan 50 Mg Tablet PO Not Given DAILY RAND Ondansetron HCl 4 mg 01/03/23 15:58 01/04/23 08:22 Ondansetron Odt 4 Mg Tablet TL 4 mg Q6HR PRN Administration Nausea / Vomiting Ondansetron HCl 4 mg 01/03/23 15:58 01/06/23 21:25 Ondansetron 4 Mg/2 Ml Vial IVP 4 mg Q6HR PRN Administration Nausea / Vomiting Oxycodone HCl 5 mg 01/03/23 15:58 01/06/23 21:24 Oxycodone 5 Mg Tablet PO 5 mg Q4HR PRN Administration Pain 5 to 7 Polyethylene Glycol 17 gm 01/06/23 09:00 01/07/23 08:14 Polyethylene Glycol 3350 17 Gm Packet PO 17 gm DAILY RAND Administration Multivit/Folic Acid/Iron 1 tab 01/04/23 09:00 01/07/23 08:14 Vitamin Tablet PO 1 tab DAILY RAND Administration Prochlorperazine Edisylate 10 mg 01/05/23 19:39 01/05/23 21:00 Prochlorperazine 10 Mg/2 Ml Vial IVP 10 mg Q6HR PRN Administration Nausea / Vomiting Propranolol HCl 20 mg 01/07/23 14:05 Propranolol 10 Mg Tablet PO BID PRN tachycardia >110 for 5 minutes Sodium Chloride 10 ml 01/03/23 15:58 01/06/23 21:25 Sodium Chloride Flush 0.9% 10 Ml Syringe IVP 10 ml PRN PRN Administration NEEDED PER PROVIDER ORDERS Sodium Chloride 10 ml 01/03/23 17:00 01/07/23 17:29 Sodium Chloride Flush 0.9% 10 Ml Syringe IVP 10 ml 0100,0900,1700 RAND Administration Tamsulosin HCl 0.4 mg 01/04/23 09:00 01/07/23 08:14 Tamsulosin 0.4 Mg Capsule PO 0.4 mg DAILY RAND Administration Thiamine HCl 100 mg 01/04/23 09:00 01/07/23 08:14 Thiamine 100 Mg Tablet PO 100 mg DAILY RAND Administration Atorvastatin Calcium 1 tab PO HS 01/04/23 Dextroamphetamine/Amphetamine [Adderall 20 mg Tablet] 1 tab PO BID 01/04/23 Doxepin [SINEquan] 1 cap PO HS 01/04/23 Fluoxetine HCl [Prozac] 1 cap PO DAILY 01/04/23 Furosemide [Lasix] 1 tab PO DAILY 01/04/23 Hydromorphone HCl/Pf [Dilaudid] 9 mg IT DAILY 01/04/23 Losartan Potassium [Cozaar] 1 tab PO DAILY 01/04/23 Omeprazole 1 cap PO BID 01/04/23 Propranolol HCl 1 tab PO BID 01/04/23 cloNIDine [Catapres] 1 - 2 tab PO HS 01/04/23 Objective - Vital Signs/Intake & Output Reviewed Vital Signs: Yes Vital Signs: Vital Signs x48h Temp Pulse Pulse Pulse Resp BP BP 01/07/23 14:00 76 20 01/07/23 13:00 70 16 01/07/23 12:00 80 19 01/07/23 11:48 36.8 C 01/07/23 11:00 72 18 01/07/23 10:30 76 89 113/75 01/07/23 10:00 68 13 01/07/23 09:00 72 14 111/72 01/07/23 08:00 36.8 C 75 16 BP BP Pulse Ox 01/07/23 14:00 82/59 L 96 01/07/23 13:00 95/64 95 01/07/23 12:00 102/74 96 01/07/23 11:48 01/07/23 11:00 113/85 H 97 01/07/23 10:30 105/80 01/07/23 10:00 90/74 92 01/07/23 09:00 99 01/07/23 08:00 108/85 H 98 Intake & Output: Intake & Output 01/04/23 01/05/23 01/06/23 01/07/23 23:59 23:59 23:59 23:59 Intake Total 0029 420 5252 1470 Output Total 1825 1075 1400 400 Balance -125 -923 049 0419 - Objective General Appearance: positive: Alert (He has a very flat affect. That is unchanged throughout his stay. Cooperative, easy to prompt.) Eyes Bilateral: positive: PERRL, EOMI ENT: positive: No signs of dehydration Neck: positive: No JVD. negative: Stiff neck Respiratory: positive: No respiratory distress. negative: Wheezes, Rales, Rhonchi Cardiovascular: positive: Regular rate & rhythm. negative: Tachycardia Abdomen: positive: Non-tender, No organomegaly, Nml bowel sounds, No distention Skin: positive: Warm, Dry Extremities: positive: Full ROM, Pedal edema Neurologic/Psychiatric: positive: Oriented x3, CN's nml (2-12). negative: Motor nml (Able to get up, go from supine to sitting, and standing with a slow shuffling gait. Tremors are much, much improved) - Lab Results Fish Bones: 01/07/23 05:14 01/07/23 05:14 Other Labs: Lab Results x24hrs 01/07/23 01/07/23 01/07/23 Range/Units 05:14 05:14 05:14 WBC (4.8-10.8) x10^3/uL RBC (4.70-6.10) 10^6/uL Hgb (14.0-18.0) g/dL Hct (42.0-52.0) % MCV (80.0-94.0) fL MCH (27.0-31.0) pg MCHC (32.0-36.0) g/dL RDW (12.0-15.0) % Plt Count (130-450) 10^3/uL MPV (7.4-11.4) fL Neut # (Auto) (1.5-6.6) 10^3/uL Lymph # (Auto) (1.5-3.5) 10^3/uL Barnwell # (Auto) (0.0-1.0) 10^3/uL Eos # (Auto) (0.0-0.7) 10^3/uL Baso # (Auto) (0.0-0.1) 10^3/uL Absolute Nucleated RBC x10^3/uL Nucleated RBC % /100WBC VBG pH 7.409 (7.31-7.41) Ionized Calcium 1.11 L (1.15-1.33) mmol/L Sodium 129 L (135-145) mmol/L Potassium 4.1 (3.5-5.0) mmol/L Chloride 93 L (101-111) mmol/L Carbon Dioxide 27 (21-32) mmol/L Anion Gap 9.0 (6-13) BUN 18 (6-20) mg/dL Creatinine 0.7 (0.6-1.2) mg/dL Estimated GFR (MDRD) 118 (>89) Glucose 252 H (70-100) mg/dL Calcium 8.6 (8.5-10.3) mg/dL Magnesium 1.9 (1.7-2.8) mg/dL Total Bilirubin 1.2 H (0.2-1.0) mg/dL AST 142 H (10-42) IU/L ALT 165 H (10-60) IU/L Alkaline Phosphatase 116 (42-121) IU/L Total Protein 6.2 L (6.7-8.2) g/dL Albumin 3.2 (3.2-5.5) g/dL Globulin 3.0 (2.1-4.2) g/dL Albumin/Globulin Ratio 1.1 (1.0-2.2) 01/07/23 01/06/23 01/06/23 Range/Units 05:14 22:05 16:52 WBC 4.5 L (4.8-10.8) x10^3/uL RBC 3.82 L (4.70-6.10) 10^6/uL Hgb 12.4 L (14.0-18.0) g/dL Hct 37.4 L (42.0-52.0) % MCV 97.9 H (80.0-94.0) fL MCH 32.5 H (27.0-31.0) pg MCHC 33.2 (32.0-36.0) g/dL RDW 12.6 (12.0-15.0) % Plt Count 153 (130-450) 10^3/uL MPV 10.3 (7.4-11.4) fL Neut # (Auto) 2.7 (1.5-6.6) 10^3/uL Lymph # (Auto) 1.0 L (1.5-3.5) 10^3/uL Barnwell # (Auto) 0.6 (0.0-1.0) 10^3/uL Eos # (Auto) 0.1 (0.0-0.7) 10^3/uL Baso # (Auto) 0.0 (0.0-0.1) 10^3/uL Absolute Nucleated RBC 0.00 x10^3/uL Nucleated RBC % 0.0 /100WBC VBG pH (7.31-7.41) Ionized Calcium (1.15-1.33) mmol/L Sodium (135-145) mmol/L Potassium 3.8 3.8 (3.5-5.0) mmol/L Chloride (101-111) mmol/L Carbon Dioxide (21-32) mmol/L Anion Gap (6-13) BUN (6-20) mg/dL Creatinine (0.6-1.2) mg/dL Estimated GFR (MDRD) (>89) Glucose (70-100) mg/dL Calcium (8.5-10.3) mg/dL Magnesium 1.7 1.6 L (1.7-2.8) mg/dL Total Bilirubin (0.2-1.0) mg/dL AST (10-42) IU/L ALT (10-60) IU/L Alkaline Phosphatase (42-121) IU/L Total Protein (6.7-8.2) g/dL Albumin (3.2-5.5) g/dL Globulin (2.1-4.2) g/dL Albumin/Globulin Ratio (1.0-2.2) Assessment/Plan - Problem List (1) Alcohol withdrawal Impression: He has never had alcohol withdrawal, never had seizures, never had blackouts. And spite of being quite intoxicated by alcohol level seen on screening, he has managed to go into alcohol withdrawal. He usually drinks a gallon of alcohol a day but in the 2 days prior to admission went to 2 gallons a day. Last drink was the . By January 04 awake, oriented to place and person but off a little bit on the date. Still tremulous. Tachycardia resolved. Still hypertensive. He has received thiamine IV. Multivitamin IV is not available due to nationwide shortage..He has received 6 doses of Ativan 2 mg IV push between yesterday and today. He has received several doses this morning and into the afternoon. I had increased his Librium to 10 mg p.o. every 6 hours yesterday evening to today. Its not holding him. By 2:44 pm he is not able to be prompted So I have transferred him to the ICU. Once in ICU 01/04 and on librium 25 mg po tid, he was more comfortable on 01/05. Over the 24 hours of January 05 he received 9 doses of 2 mg of Ativan. On January 06 he received 4 doses of Ativan. As of midnight last night he has not received any doses for January 07. He is not hallucinating he tells me. Tremors are much improved. Plan: Thiamine 100 mg p.o. daily vitamin p.o. daily Decrease Librium to 10 mg p.o. 3 times daily CIWA protocol with Ativan 2 mg IV push q. 30 minutes as needed CIWA score Compazine 10 mg IV push every 6 hours as needed for nausea I am encouraging nursing to get him out of bed. At least sit up in a chair to eat. Qualifiers: Complication of substance-induced condition: with perceptual disturbance Qualified Code(s): F10.932 - Alcohol use, unspecified with withdrawal with perc eptual disturbance (2) Alcohol intoxication Conclusion/Plan: Alcohol level less than 5 On the morning of January 04 after being 412 on January 03. Unfortunately withdrawal did worsen as his alcohol level went to 0.. I was able to transfer him to the ICU. He was on high doses of Librium. I have started tapering those off today. Ativan use is also much less than it was in the last 48 hours. I would anticipate that he is done with withdrawal by tomorrow or the day after Qualifiers: Complication of substance-induced condition: with delirium Qualified Code(s): F10.921 - Alcohol use, unspecified with intoxication delirium (3) Alcoholic hepatitis Conclusion/Plan: He gives no history of ascites, cirrhosis. But I am surprised about that considering how long he has been drinking. INR is normal at 1.0 so his coagulation is still intact. His AST at 276 >>304>>188>>142 In October 2021 he was 59. ALT 193>>197>>187>>165. In October 2021 he was 57. Ultrasound of the liver was done and he is hepatomegaly without solid masses. Gallbladder sludge without wall thickening. Spleen is normal size and homogenous in echotexture. Ducts are normal. No ascites. It appears that the damage has been transitory. His hepatitis is starting to resolve. He did not need steroids. Plan: He is asking to be referred to rehab. Social work will meet with him on Monday. Qualifiers: Ascites presence: without ascites Qualified Code(s): K70.10 - Alcoholic hepatitis without ascites (4) Suicidal ideation Conclusion/Plan: With no clear plan. Statements of low self-worth. Once he is through withdrawal and no longer intoxicated, will have social work meet with him..We will then decide if DCR needs to be notified. He will meet with social work on Monday. Today is Monday. (5) Bipolar 1 disorder Conclusion/Plan: This gentleman takes lithium and Lamictal. I Have resumed both of those now that his alcohol level is 0. I will also resume his Prozac, [place]. (6) UTI (urinary tract infection) Conclusion/Plan: He states that he still has symptoms of hematuria, urgency, but urinalysis done On the morning of admission was normal. I added Flomax on admission, he says that his urgency feels better. PSA 0.36. Free PSA 0.027. Percent free PSA is 8. So no prostatitis. Qualifiers: Urinary tract infection type: site unspecified Hematuria presence: with hematuria Qualified Code(s): N39.0 - Urinary tract infection, site not specified; R31.9 - Hematuria, unspecified (7) Hypertension Conclusion/Plan: This is noted in his clinic record. But he is not on any hypertensive medications Listed on his medication list on admission.. Here he was hyperten sive in the ER. 140/93, 142/107, 151/105. He was tachycardic with this in the 120s. Most likely due to withdrawal. I added a low-dose beta-guillermina 25 mg p.o. twice daily of metoprolol Heart rate stays in the 80s and 90s. Occasionally comes up above 100. But then goes back down again. Blood pressure is better. In addition to the metoprolol, I think the increase Librium has also brought down his blood pressure. Then pharmacy reconciled his medication list. He is on Lasix, Cozaar, propran olol. Plan: Discontinued metoprolol 01/06. Resumed propranolol 20 mg p.o. twice daily but low BP today so I will change parameters to give only with tachycardia >110 for 5 minutes. On Cozaar 100 mg p.o. daily, Lasix 20 mg daily. I will have parameters to hold less than systolic 110, or pulse less than 60. Qualifiers: Hypertension type: primary hypertension Qualified Code(s): I10 - Essential (primary) hypertension (8) Type 2 diabetes mellitus, uncontrolled Conclusion/Plan: He takes metformin 1000 mg p.o. twice daily. In view of dehydration, fluid shifts, liver disease, I will not resume his metformin. He was n.p.o. for his ultrasound last night. Diet was not resumed after ultrasound. I resumed his low-carb diet on January 04. Waxing and waning appetite. He really likes his orange juice though. Glycosylated hemoglobin is 10.6%. As such, glucose is uncontrolled prior to admission. I had put him on Lantus 10 units at night. Glucose continue to be elevated at 10 units at night so I increasing to 15 units tonight on the evening of January 06. Glucose this morning was 223. By lunch 25 3. By dinner 142. Plan: Increase the Lantus 15 units at night to 20 units at night. Continue Sliding scale insulin before meals and at bedtime Qualifiers: Glycemic state: with hyperglycemia Qualified Code(s): E11.65 - Type 2 diabetes mellitus with hyperglycemia (9) Chronic pain disorder Conclusion/Plan: Nursing and I discussed the case. We are aware that he has an active pump with Dilaudid infusing. I usually use 25 mg of Librium 3 times daily and acute alcohol withdrawal. However, this gentleman is getting an opioid. I do not want to over sedate him and have apnea. Hence I started at 5 mg Librium 3 times daily. I then quickly went up to 10 mg Librium, then 25 mg Librium. Even with this much Librium and a Dilaudid pump, he is not sedated. Not apneic. (10) Right inguinal hernia Conclusion/Plan: The clinic requested an ultrasound of his right inguinal hernia. General surgery said a CT or an ultrasound can be done. It did not matter. I will consider doing an ultrasound before discharge.
[2023-01-07] MEDS ORDERED: INSULIN GLARGINE-YFGN 300 UNIT/3 ML PEN SUBQ SCH (21:00)
[2023-01-07] MEDS: cloNIDine 0.1 MG TABLET PO SCH (21:06)
[2023-01-07] MEDS: ATORVASTATIN 40 MG TABLET PO SCH (21:06)
[2023-01-07] MEDS: DOXEPIN 10 MG CAPSULE PO SCH (21:25)
[2023-01-08] MEDS: SODIUM CHLORIDE FLUSH 0.9% 10 ML SYRINGE IVP SCH ×3 (02:45→17:09)
[2023-01-08] MEDS: oxyCODONE 5 MG TABLET PO PRN (05:25)
[2023-01-08 05:47] LABS: ALBUMIN 3.1 g/dL (3.2-5.5); ALBUMIN/GLOBULIN RATIO 1.1 (1.0-2.2); CALCIUM 8.5 mg/dL (8.5-10.3); CREATININE 0.7 mg/dL (0.6-1.2)
[2023-01-08] MEDS: chlordiazePOXIDE 5 MG CAPSULE PO SCH (08:08)
[2023-01-08] MEDS: INSULIN LISPRO 300 UNIT/3 ML PEN SUBQ SCH ×6 (08:09→21:04)
[2023-01-08] MEDS: FLUoxetine 10 MG CAPSULE PO SCH (09:13)
[2023-01-08] MEDS: ENOXAPARIN 40 MG/0.4 ML SYRINGE SUBQ SCH (09:13)
[2023-01-08] MEDS: polyethylene glycoL 3350 17 GM PACKET PO SCH (09:14)
[2023-01-08] MEDS: LOSARTAN 50 MG TABLET PO SCH (09:14)
[2023-01-08] MEDS: FUROSEMIDE 20 MG TABLET PO SCH (09:14)
[2023-01-08] MEDS: PRENATAL VITAMIN TABLET PO SCH (09:14)
[2023-01-08] MEDS: IBUPROFEN 400 MG TABLET PO PRN ×2 (09:15→21:15)
[2023-01-08] MEDS: TAMSULOSIN 0.4 MG CAPSULE PO SCH (09:15)
[2023-01-08] MEDS: THIAMINE 100 MG TABLET PO SCH (09:15)
--- NOTE | 2023-01-08 17:55 | PROVIDER PROGRESS NOTE ---
Subjective - Prog Note Date Prog Note Date: 01/08/23 Prog Note Time: 17:53 - Subjective Subjective: same headache. wants to go home. tremor are gone but still unsteady Current Medications - Current Medications Current Medications: Active Medications Acetaminophen (Acetaminophen 325 Mg Tablet) 650 mg PO Q4HR PRN PRN Reason: Pain 1 to 4, or Fever Last Admin: 01/07/23 21:06 Dose: 650 mg Atorvastatin Calcium (Atorvastatin 40 Mg Tablet) 40 mg PO [facility] Last Admin: 01/07/23 21:06 Dose: 40 mg Clonidine HCl (Clonidine 0.1 Mg Tablet) 0.1 mg PO HS [facility] Last Admin: 01/07/23 21:06 Dose: 0.1 mg Doxepin HCl (Doxepin 10 Mg Capsule) 10 mg PO [facility] Last Admin: 01/07/23 21:25 Dose: 10 mg Enoxaparin Sodium (Enoxaparin 40 Mg/0.4 Ml Syringe) 40 mg SUBQ DAILY [facility] Last Admin: 01/08/23 09:13 Dose: 40 mg Fluoxetine HCl (Fluoxetine 10 Mg Capsule) 20 mg PO DAILY [facility] Last Admin: 01/08/23 09:13 Dose: 20 mg Furosemide (Furosemide 20 Mg Tablet) 20 mg PO DAILY [facility] Last Admin: 01/08/23 09:14 Dose: 20 mg Ibuprofen (Ibuprofen 400 Mg Tablet) 400 mg PO Q4HR PRN PRN Reason: Pain 1 to 4 Last Admin: 01/08/23 09:15 Dose: 400 mg Insulin Glargine-yfgn (Insulin Glargine-Yfgn 300 Unit/3 Ml Pen) 25 unit SUBQ QPM [facility] Insulin Human Lispro (Insulin Lispro 300 Unit/3 Ml Pen) 2 - 10 unit SUBQ 0800,1200,1700,2100 [facility]; Protocol Last Admin: 01/08/23 17:08 Dose: 2 unit Insulin Human Lispro (Insulin Lispro 300 Unit/3 Ml Pen) 5 unit SUBQ TIDWM [facility] Last Admin: 01/08/23 17:09 Dose: 5 unit Losartan Potassium (Losartan 50 Mg Tablet) 100 mg PO DAILY [facility] Last Admin: 01/08/23 09:14 Dose: 100 mg Ondansetron HCl (Ondansetron Odt 4 Mg Tablet) 4 mg TL Q6HR PRN PRN Reason: Nausea / Vomiting Last Admin: 01/04/23 08:22 Dose: 4 mg Ondansetron HCl (Ondansetron 4 Mg/2 Ml Vial) 4 mg IVP Q6HR PRN PRN Reason: Nausea / Vomiting Last Admin: 01/06/23 21:25 Dose: 4 mg Oxycodone HCl (Oxycodone 5 Mg Tablet) 5 mg PO Q4HR PRN PRN Reason: Pain 5 to 7 Last Admin: 01/08/23 05:25 Dose: 5 mg Polyethylene Glycol (Polyethylene Glycol 3350 17 Gm Packet) 17 gm PO DAILY [facility] Last Admin: 01/08/23 09:14 Dose: 17 gm Multivit/Folic Acid/Iron ( Vitamin Tablet) 1 tab PO DAILY [facility] Last Admin: 01/08/23 09:14 Dose: 1 tab Prochlorperazine Edisylate (Prochlorperazine 10 Mg/2 Ml Vial) 10 mg IVP Q6HR PRN PRN Reason: Nausea / Vomiting Last Admin: 01/05/23 21:00 Dose: 10 mg Propranolol HCl (Propranolol 10 Mg Tablet) 20 mg PO BID PRN PRN Reason: tachycardia >110 for 5 minutes Sodium Chloride (Sodium Chloride Flush 0.9% 10 Ml Syringe) 10 ml IVP PRN PRN PRN Reason: NEEDED PER PROVIDER ORDERS Last Admin: 01/06/23 21:25 Dose: 10 ml Sodium Chloride (Sodium Chloride Flush 0.9% 10 Ml Syringe) 10 ml IVP 0100,09 00,1700 [facility] Last Admin: 01/08/23 17:09 Dose: 10 ml Tamsulosin HCl (Tamsulosin 0.4 Mg Capsule) 0.4 mg PO DAILY [facility] Last Admin: 01/08/23 09:15 Dose: 0.4 mg Thiamine HCl (Thiamine 100 Mg Tablet) 100 mg PO DAILY [facility] Last Admin: 01/08/23 09:15 Dose: 100 mg Atorvastatin Calcium 1 tab PO HS 01/04/23 Dextroamphetamine/Amphetamine [Adderall 20 mg Tablet] 1 tab PO BID 01/04/23 Doxepin [SINEquan] 1 cap PO HS 01/04/23 Fluoxetine HCl [Prozac] 1 cap PO DAILY 01/04/23 Furosemide [Lasix] 1 tab PO DAILY 01/04/23 Hydromorphone HCl/Pf [Dilaudid] 9 mg IT DAILY 01/04/23 Losartan Potassium [Cozaar] 1 tab PO DAILY 01/04/23 Omeprazole 1 cap PO BID 01/04/23 Propranolol HCl 1 tab PO BID 01/04/23 cloNIDine [Catapres] 1 - 2 tab PO HS 01/04/23 Objective - Vital Signs/Intake & Output Reviewed Vital Signs: Yes Vital Signs: Vital Signs x48h Temp Pulse Resp BP Pulse Ox 01/08/23 16:30 36.5 C 82 17 118/72 98 Intake & Output: Intake & Output 01/05/23 01/06/23 01/07/23 01/08/23 23:59 23:59 23:59 23:59 Intake Total 600 1900 2070 1470 Output Total 1075 1400 400 875 Balance -288 753 1085 595 - Objective General Appearance: positive: No acute distress, Alert (but flat, flat affect. sometimes slow to respond, sleepy) Eyes Bilateral: positive: PERRL, EOMI ENT: positive: No signs of dehydration Neck: positive: No JVD. negative: Stiff neck Respiratory: positive: No respiratory distress. negative: Wheezes, Rales, Rhonchi Cardiovascular: positive: Regular rate & rhythm Abdomen: positive: Other (LLQ pump fixture in place). negative: Non-tender, No organomegaly, Nml bowel sounds, No distention Skin: positive: Warm, Dry Extremities: positive: Full ROM, No pedal edema Neurologic/Psychiatric: positive: Oriented x3, CN's nml (2-12), Motor nml (no tremors when he holds out his hands, but off balance, and if bends, will fall) - Lab Results Fish Bones: 01/07/23 05:14 01/08/23 05:20 Other Labs: Lab Results x24hrs 01/08/23 Range/Units 05:20 Sodium 132 L (135-145) mmol/L Potassium 4.0 (3.5-5.0) mmol/L Chloride 97 L (101-111) mmol/L Carbon Dioxide 28 (21-32) mmol/L Anion Gap 7.0 (6-13) BUN 14 (6-20) mg/dL Creatinine 0.7 (0.6-1.2) mg/dL Estimated GFR (MDRD) 118 (>89) Glucose 302 H (70-100) mg/dL Calcium 8.5 (8.5-10.3) mg/dL Total Bilirubin 1.0 (0.2-1.0) mg/dL AST 83 H (10-42) IU/L ALT 125 H (10-60) IU/L Alkaline Phosphatase 121 (42-121) IU/L Total Protein 6.0 L (6.7-8.2) g/dL Albumin 3.1 L (3.2-5.5) g/dL Globulin 2.9 (2.1-4.2) g/dL Albumin/Globulin Ratio 1.1 (1.0-2.2) ABX Reporting Has patient been on IV antibiotics over the past 48 hours?: No Assessment/Plan - Problem List (1) Alcohol withdrawal Impression: He has never had alcohol withdrawal, never had seizures, never had blackouts. And spite of being quite intoxicated by alcohol level seen on screening, he has managed to go into alcohol withdrawal. He usually drinks a gallon of alcohol a day but in the 2 days prior to admission went to 2 gallons a day. Last drink was the . By January 04 awake, oriented to place and person but off a little bit on the date. Still tremulous. Tachycardia resolved. Still hypertensive. He has received thiamine IV. Multivitamin IV is not available due to nationwide shortage..He has received 6 doses of Ativan 2 mg IV push between yesterday and today. He has received several doses this morning and into the afternoon. I had increased his Librium to 10 mg p.o. every 6 hours yesterday evening to today. Its not holding him. By 2:44 pm he is not able to be prompted So I have transferred him to the ICU. Once in ICU 01/04 and on librium 25 mg po tid, he was more comfortable on 01/05. Over the 24 hours of January 05 he received 9 doses of 2 mg of Ativan. On January 06 he received 4 doses of Ativan. As of midnight lApril 1, he has not received any doses. He tells me that all of his hallucinations are gone. And his tremors have almost completely, completely resolved Plan: Thiamine 100 mg p.o. daily vitamin p.o. daily Stop librium and stop CIWA protocol with Ativan 2 mg IV push q. 30 minutes as needed CIWA score Compazine 10 mg IV push every 6 hours as needed for nausea Qualifiers: Complication of substance-induced condition: with perceptual disturbance Qualified Code(s): F10.932 - Alcohol use, unspecified with withdrawal with perceptual disturbance (2) Alcohol intoxication Conclusion/Plan: Alcohol level less than 5 On the morning of January 04 after being 412 on January 03. Unfortunately withdrawal did worsen as his alcohol level went to 0.. I was able to transfer him to the ICU. He was initially on high doses of Librium, and Ativan 2 mg IV push. As of today tremors have resolved, and he is now just sleeping more than anything else. I will be stopping his benzodiazepines. Complication of substance-induced condition: with delirium Qualified Code(s): F10.921 - Alcohol use, unspecified with intoxication delirium (3) Alcoholic hepatitis Conclusion/Plan: He gives no history of ascites, cirrhosis. But I am surprised about that considering how long he has been drinking. INR is normal at 1.0 so his coagulation is still intact. His AST at 276 >>304>>188>>142>>83 In October 2021 he was 59. ALT 193>>197>>187>>165>>122. In October 2021 he was 57. Bili is normal today. Ultrasound of the liver was done and he is hepatomegaly without solid masses. Gallbladder sludge without wall thickening. Spleen is normal size and homogenous in echotexture. Ducts are normal. No ascites. It appears that the damage has been transitory. His hepatitis is starting to resolve. He did not need steroids. Plan: He is asking to be referred to rehab. Social work will meet with him tomorrow. Qualifiers: Ascites presence: without ascites Qualified Code(s): K70.10 - Alcoholic hepatitis without ascites (4) Suicidal ideation Conclusion/Plan: With no clear plan. Statements of low self-worth. Once he is through withdrawal and no longer intoxicated, will have social work meet with him..We will then decide if DCR needs to be notified. He will meet with social work tomorrow. (5) Bipolar 1 disorder Conclusion/Plan: This gentleman takes lithium and Lamictal. I Have resumed both of those now that his alcohol level is 0. I will also resume his Prozac, S[place]quan. (6) UTI (urinary tract infection) Conclusion/Plan: He states that he still has symptoms of hematuria, urgency, but urinalysis done On the morning of admission was normal. I added Flomax on admission, he says that his urgency feels better. PSA 0.36. Free PSA 0.027. Percent free PSA is 8. So no prostatitis. Qualifiers: Urinary tract infection type: site unspecified Hematuria presence: with hematuria Qualified Code(s): N39.0 - Urinary tract infection, site not specified; R31.9 - Hematuria, unspecified (7) Hypertension Conclusion/Plan: This is noted in his clinic record. But he is not on any hypertensive medications Listed on his medication list on admission.. Here he was hypertensive in the ER. 140/93, 142/107, 151/105. He was tachycardic with this in the 120s. Most likely due to withdrawal. I added a low-dose beta-guillermina 25 mg p.o. twice daily of metoprolol Heart rate stays in the 80s and 90s. Occasionally comes up above 100. But then goes back down again. Blood pressure is better. In addition to the metoprolol, I think the increase Librium has also brought down his blood pressure. Then pharmacy reconciled his medication list. He is on Lasix, Cozaar, propranolol. Plan: Discontinued metoprolol 01/06. Resumed propranolol 20 mg p.o. twice daily but low BP today so I will change parameters to give only with tachycardia >110 for 5 minutes. On Cozaar 100 mg p.o. daily, Lasix 20 mg daily. I will have parameters to hold less than systolic 110, or pulse less than 60. Qualifiers: Hypertension type: primary hypertension Qualified Code(s): I10 - Essential (primary) hypertension (8) Type 2 diabetes mellitus, uncontrolled Conclusion/Plan: He takes metformin 1000 mg p.o. twice daily. In view of dehydration, fluid shifts, liver disease, I will not resume his metformin. He was n.p.o. for his ultrasound last night. Diet was not resumed after ultrasound. I resumed his low-carb diet on January 04. Waxing and waning appetite. He really likes his orange juice though. Glycosylated hemoglobin is 10.6%. As such, glucose is uncontrolled prior to admission. I had put him on Lantus 10 units at night. Glucose continue to be elevated at 10 units at night so I increasing to 15 units tonight on the evening of January 06. Glucose this morning was 223. By lunch 253. By dinner 142. Plan: Increase the Lantus 15 units at night to 20 units at night. Continue Sliding scale insulin before meals and at bedtime Qualifiers: Glycemic state: with hyperglycemia Qualified Code(s): E11.65 - Type 2 amari betes mellitus with hyperglycemia (9) Chronic pain disorder Conclusion/Plan: Nursing and I discussed the case. We are aware that he has an active pump with Dilaudid infusing. I usually use 25 mg of Librium 3 times daily and acute alcohol withdrawal. However, this gentleman is getting an opioid. I do not want to over sedate him and have apnea. Hence I started at 5 mg Librium 3 times daily. I then quickly went up to 10 mg Librium, then 25 mg Librium. Even with this much Librium and a Dilaudid pump, he is not sedated. Not apneic. Today the benzodiazepine will be stopped. (10) Right inguinal hernia Conclusion/Plan: The clinic requested an ultrasound of his right inguinal hernia. General surgery said a CT or an ultrasound can be done. It did not matter. I will consider doing an ultrasound before discharge.
[2023-01-08] MEDS ORDERED: INSULIN GLARGINE-YFGN 300 UNIT/3 ML PEN SUBQ SCH (21:00)
[2023-01-08] MEDS: DOXEPIN 10 MG CAPSULE PO SCH (21:03)
[2023-01-08] MEDS: cloNIDine 0.1 MG TABLET PO SCH (21:03)
[2023-01-08] MEDS: ATORVASTATIN 40 MG TABLET PO SCH (21:03)
[2023-01-09] MEDS: SODIUM CHLORIDE FLUSH 0.9% 10 ML SYRINGE IVP SCH ×3 (00:08→17:33)
[2023-01-09 05:19] LABS: ALBUMIN 3.3 g/dL (3.2-5.5); ALBUMIN/GLOBULIN RATIO 1.1 (1.0-2.2); BILIRUBIN,TOTAL 0.9 mg/dL (0.2-1.0); CALCIUM 8.7 mg/dL (8.5-10.3); CREATININE 0.7 mg/dL (0.6-1.2); POTASSIUM 3.8 mmol/L (3.5-5.0); TOTAL PROTEIN 6.3 g/dL (6.7-8.2)
[2023-01-09] MEDS: INSULIN LISPRO 300 UNIT/3 ML PEN SUBQ SCH ×5 (08:09→22:01)
[2023-01-09] MEDS: ENOXAPARIN 40 MG/0.4 ML SYRINGE SUBQ SCH (09:20)
[2023-01-09] MEDS: THIAMINE 100 MG TABLET PO SCH (09:23)
[2023-01-09] MEDS: polyethylene glycoL 3350 17 GM PACKET PO SCH (09:23)
[2023-01-09] MEDS: FUROSEMIDE 20 MG TABLET PO SCH (09:23)
[2023-01-09] MEDS: TAMSULOSIN 0.4 MG CAPSULE PO SCH (09:23)
[2023-01-09] MEDS: DOCUSATE SODIUM 250 MG CAPSULE PO SCH (09:24)
[2023-01-09] MEDS: SENNA 8.6 MG TABLET PO SCH (09:24)
[2023-01-09] MEDS: FLUoxetine 10 MG CAPSULE PO SCH (09:24)
[2023-01-09] MEDS: LOSARTAN 50 MG TABLET PO SCH (09:24)
[2023-01-09] MEDS: PRENATAL VITAMIN TABLET PO SCH (09:24)
[2023-01-09] MEDS ORDERED: LACTULOSE 10 GM /15 ML UDC PO ONE (11:24)
[2023-01-09] MEDS: ACETAMINOPHEN 325 MG TABLET PO PRN (14:29)
--- NOTE | 2023-01-09 15:21 | Ultrasound Report ---
PROCEDURE: Abdomen Limited INDICATIONS: Hernia as pointed by pt. Umb region. TECHNIQUE: Real-time focused scanning was performed of the abdomen, with image documentation. COMPARISONS: None. FINDINGS: Fat-containing, nonreducible umbilical hernia. The neck measures up to 2 cm. The herniated sac measur es 1.1 x 1.3 cm. Sonographic evaluation of the bruised region right of the umbilicus shows no sonographic abnormality. IMPRESSION: Nonreducible, fat-containing umbilical hernia. Reviewed by: Haile Bailey on 01/09/2023 3:20 PM PDT Approved by: Haile Bailey on 01/09/2023 3:20 PM PDT Station ID: [id number]
--- NOTE | 2023-01-09 18:10 | PROVIDER PROGRESS NOTE ---
Subjective - Prog Note Date Prog Note Date: 01/09/23 Prog Note Time: 18:08 - Subjective Subjective: No new complaints. Just wants to get home. We talked about his finances, how he will control his glucose. And his worries about his hematuria and "the he rnia that is causing it" Current Medications - Current Medications Current Medications: Active Medications Acetaminophen (Acetaminophen 325 Mg Tablet) 650 mg PO Q4HR PRN PRN Reason: Pain 1 to 4, or Fever Last Admin: 01/09/23 14:29 Dose: 650 mg Atorvastatin Calcium (Atorvastatin 40 Mg Tablet) 40 mg PO HS [facility] Last Admin: 01/08/23 21:03 Dose: 40 mg Clonidine HCl (Clonidine 0.1 Mg Tablet) 0.1 mg PO HS [facility] Last Admin: 01/08/23 21:03 Dose: 0.1 mg Docusate Sodium (Docusate Sodium 250 Mg Capsule) 250 - 500 mg PO DAILY [facility] Last Admin: 01/09/23 09:24 Dose: 250 mg Doxepin HCl (Doxepin 10 Mg Capsule) 10 mg PO HS [facility] Last Admin: 01/08/23 21:03 Dose: 10 mg Enoxaparin Sodium (Enoxaparin 40 Mg/0.4 Ml Syringe) 40 mg SUBQ DAILY [facility] Last Admin: 01/09/23 09:20 Dose: 40 mg Fluoxetine HCl (Fluoxetine 10 Mg Capsule) 20 mg PO DAILY [facility] Last Admin: 01/09/23 09:24 Dose: 20 mg Furosemide (Furosemide 20 Mg Tablet) 20 mg PO DAILY [facility] Last Admin: 01/09/23 09:23 Dose: 20 mg Ibuprofen (Ibuprofen 400 Mg Tablet) 400 mg PO Q4HR PRN PRN Reason: Pain 1 to 4 Last Admin: 01/08/23 21:15 Dose: 400 mg Insulin Glargine-yfgn (Insulin Glargine-Yfgn 300 Unit/3 Ml Pen) 20 unit SUBQ QPM [facility] Insulin Human Lispro (Insulin Lispro 300 Unit/3 Ml Pen) 2 - 10 unit SUBQ 0800,1200,1700,2100 [facility]; Protocol Last Admin: 01/09/23 17:27 Dose: Not Given Losartan Potassium (Losartan 50 Mg Tablet) 100 mg PO DAILY [facility] Last Admin: 01/09/23 09:24 Dose: 100 mg Ondansetron HCl (Ondansetron Odt 4 Mg Tablet) 4 mg TL Q6HR PRN PRN Reason: Nausea / Vomiting Last Admin: 01/04/23 08:22 Dose: 4 mg Ondansetron HCl (Ondansetron 4 Mg/2 Ml Vial) 4 mg IVP Q6HR PRN PRN Reason: Nausea / Vomiting Last Admin: 01/06/23 21:25 Dose: 4 mg Oxycodone HCl (Oxycodone 5 Mg Tablet) 5 mg PO Q4HR PRN PRN Reason: Pain 5 to 7 Last Admin: 01/08/23 05:25 Dose: 5 mg Polyethylene Glycol (Polyethylene Glycol 3350 17 Gm Packet) 17 gm PO DAILY [facility] Last Admin: 01/09/23 09:23 Dose: 17 gm Multivit/Folic Acid/Iron ( Vitamin Tablet) 1 tab PO DAILY [facility] Last Admin: 01/09/23 09:24 Dose: 1 tab Prochlorperazine Edisylate (Prochlorperazine 10 Mg/2 Ml Vial) 10 mg IVP Q6HR PRN PRN Reason: Nausea / Vomiting Last Admin: 01/05/23 21:00 Dose: 10 mg Propranolol HCl (Propranolol 10 Mg Tablet) 20 mg PO BID PRN PRN Reason: tachycardia >110 for 5 minutes Senna (Senna 8.6 Mg Tablet) 8.6 - 17.2 mg PO DAILY [facility] Last Admin: 01/09/23 09:24 Dose: 8.6 mg Sodium Chloride (Sodium Chloride Flush 0.9% 10 Ml Syringe) 10 ml IVP PRN PRN PRN Reason: NEEDED PER PROVIDER ORDERS Last Admin: 01/06/23 21:25 Dose: 10 ml Sodium Chloride (Sodium Chloride Flush 0.9% 10 Ml Syringe) 10 ml IVP 0100,0900,1700 [facility] Last Admin: 01/09/23 17:33 Dose: 10 ml Tamsulosin HCl (Tamsulosin 0.4 Mg Capsule) 0.4 mg PO DAILY [facility] Last Admin: 01/09/23 09:23 Dose: 0.4 mg Thiamine HCl (Thiamine 100 Mg Tablet) 100 mg PO DAILY [facility] Last Admin: 01/09/23 09:23 Dose: 100 mg Atorvastatin Calcium 1 tab PO HS 01/04/23 Dextroamphetamine/Amphetamine [Adderall 20 mg Tablet] 1 tab PO BID 01/04/23 Doxepin [SINEquan] 1 cap PO HS 01/04/23 Fluoxetine HCl [Prozac] 1 cap PO DAILY 01/04/23 Furosemide [Lasix] 1 tab PO DAILY 01/04/23 Hydromorphone HCl/Pf [Dilaudid] 9 mg IT DAILY 01/04/23 Losartan Potassium [Cozaar] 1 tab PO DAILY 01/04/23 Omeprazole 1 cap PO BID 01/04/23 Propranolol HCl 1 tab PO BID 01/04/23 cloNIDine [Catapres] 1 - 2 tab PO HS 01/04/23 Objective - Vital Signs/Intake & Output Vital Signs: Vital Signs x48h Temp Pulse Resp BP Pulse Ox 01/09/23 15:34 36.5 C 62 18 107/72 97 01/09/23 14:00 36.7 C 91 20 108/65 96 Intake & Output: Intake & Output 01/06/23 01/07/23 01/08/23 01/09/23 23:59 23:59 23:59 23:59 Intake Total 1900 2070 1710 1999 Output Total 3498 028 5441 Balance 500 5347 603 3945 - Objective General Appearance: positive: No acute distress, Alert, Other (Flat affect.) Eyes Bilateral: positive: PERRL, EOMI ENT: positive: No signs of dehydration Neck: positive: No JVD. negative: Stiff neck Respiratory: positive: No respiratory distress. negative: Wheezes, Rales, Rhonchi Cardiovascular: positive: Regular rate & rhythm Abdomen: positive: Non-tender, No organomegaly, Nml bowel sounds, No distention, Other (Left lower quadrant hard packet inserted into abdominal wall for the Dilaudid pump into his spine. Reducible umbilical hernia) Skin: positive: Warm, Dry, Pallor Extremities: positive: Full ROM, No pedal edema Neurologic/Psychiatric: positive: Oriented x3, CN's nml (2-12). negative: Motor nml (Still has a shuffling gait. I told him I worry about him bending over and falling over.) - Lab Results Fish Bones: 01/07/23 05:14 01/09/23 04:51 Other Labs: Lab Results x24hrs 01/09/23 Range/Units 04:51 Sodium 134 L (135-145) mmol/L Potassium 3.8 (3.5-5.0) mmol/L Chloride 100 L (101-111) mmol/L Carbon Dioxide 28 (21-32) mmol/L Anion Gap 6.0 (6-13) BUN 16 (6-20) mg/dL Creatinine 0.7 (0.6-1.2) mg/dL Estimated GFR (MDRD) 118 (>89) Glucose 156 H (70-100) mg/dL Calcium 8.7 (8.5-10.3) mg/dL Total Bilirubin 0.9 (0.2-1.0) mg/dL AST 61 H (10-42) IU/L ALT 107 H (10-60) IU/L Alkaline Phosphatase 121 (42-121) IU/L Total Protein 6.3 L (6.7-8.2) g/dL Albumin 3.3 (3.2-5.5) g/dL Globulin 3.0 (2.1-4.2) g/dL Albumin/Globulin Ratio 1.1 (1.0-2.2) Assessment/Plan - Problem List (1) Alcohol withdrawal Impression: He has never had alcohol withdrawal, never had seizures, never had blackouts. And spite of being quite intoxicated by alcohol level seen on screening, he has managed to go into alcohol withdrawal. He usually drinks a gallon of alcohol a day but in the 2 days prior to admission went to 2 gallons a day. Last drink was the . By January 04 awake, oriented to place and person but off a little bit on the date. Still tremulous. Tachycardia resolved. Still hypertensive. He has received thiamine IV. Multivitamin IV is not available due to nationwide shortage..He has received 6 doses of Ativan 2 mg IV push between yesterday and today. He has received several doses this morning and into the afternoon. I had increased his Librium to 10 mg p.o. every 6 hours yesterday evening to today. Its not holding him. By 2:44 pm he is not able to be prompted So I have transferred him to the ICU. Once in ICU 01/04 and on librium 25 mg po tid, he was more comfortable on 01/05. Over the 24 hours of January 05 he received 9 doses of 2 mg of Ativan. On January 06 he received 4 doses of Ativan. As of midnight lApril 1, he has not received any doses. He tells me that all of his hallucinations are gone. And his tremors have almost completely resolved. By yesterday afternoon he was very stable. I had stopped the CIWA protocol with Ativan 2 mg IV push, and his Librium. He has not had any benzodiazepines since yesterday. This morning no tremors. Awake, alert. Still with psychomotor slowing. Really anxious to go home now. Plan: Thiamine 100 mg p.o. daily vitamin p.o. daily He tells me that he does not plan on drinking ever again. He is embarrassed and remorseful. His kids been calling him multiple times yesterday and today and he is sad that he put them through this. Qualifiers: Complication of substance-induced condition: with perceptual disturbance Qualified Code(s): F10.932 - Alcohol use, unspecified with withdrawal with perceptual disturbance (2) Alcohol intoxication Conclusion/Plan: Alcohol level less than 5 On the morning of January 04 after being 412 on December 08. Unfortunately withdrawal did worsen as his alcohol level went to 0.. I was able to transfer him to the ICU. He was initially on high doses of Librium, and Ativan 2 mg IV push. As of 01/08 tremors have resolved, and he is now just sleeping more than anything else so I stopped the benzos on 01/08. Complication of substance-induced condition: with delirium Qualified Code(s): F10.921 - Alcohol use, unspecified with intoxication delirium (3) Alcoholic hepatitis Conclusion/Plan: He gives no history of ascites, cirrhosis. But I am surprised about that considering how long he has been drinking. INR is normal at 1.0 so his coagulation is still intact. His AST at 276 >>304>>188>>142>>83>>61 In October 2021 he was 59. ALT 193>>197>>187>>165>>122>>107. In October 2021 he was 57. Bili became normal 01/08 Ultrasound of the liver was done and he is hepatomegaly without solid masses. Gallbladder sludge without wall thickening. Spleen is normal size and homogenous in echotexture. Ducts are normal. No ascites. It appears that the damage has been transitory. His hepatitis is starting to re solve. He did not need steroids. Plan: He is asking to be referred to rehab. Social work has met with him. He is identified that he would like to do outpatient rehab. She is given him those facilities that will help him. Qualifiers: Ascites presence: without ascites Qualified Code(s): K70.10 - Alcoholic hepatitis without ascites (4) Suicidal ideation Conclusion/Plan: With no clear plan. Statements of low self-worth. He just wanted to . He stated that that is why he went on the binge drinking episode. Now that he is through withdrawal, and is more alert, awake, he states he has no plans to kill himself. He is embarrassed, remorseful. Social work met with him and feels that he is stable enough for discharge. (5) Bipolar 1 disorder Conclusion/Plan: This gentleman takes lithium and Lamictal. I Have resumed both of those now that his alcohol level is 0. I will also resume his Prozac, Sinequan. (6) UTI (urinary tract infection) Conclusion/Plan: He states that he still has symptoms of hematuria, urgency, but urinalysis done On the morning of admission was normal. I added Flomax on admission, he says that his urgency feels better. PSA 0.36. Free PSA 0.027. Percent free PSA is 8. So no prostatitis. We finally did the ultrasound of "the groin" because that is where he said the problem was. But in evaluating him, he really has been describing his umbilicus. He feels that his umbilicus hernia is the cause of his hematuria. I gave a quick anatomy lesson. Told him that this umbilical hernia that is easily reducible is not the problem. It does hurt. But I still told him that this has nothing to do with hematuria. He should follow-up with Ling Garcia, possibly referred to urology to the get a cystoscopy in the next few weeks. Qualifiers: Urinary tract infection type: site unspecified Hematuria presence: with hematuria Qualified Code(s): N39.0 - Urinary tract infection, site not specified; R31.9 - Hematuria, unspecified (7) Hypertension Conclusion/Plan: This is noted in his clinic record. But he is not on any hypertensive medications Listed on his medication list on admission.. Here he was hypertensive in the ER. 140/93, 142/107, 151/105. He was tachycardic with this in the 120s. Most likely due to withdrawal. I added a low-dose beta-guillermina 25 mg p.o. twice daily of metoprolol Heart rate stays in the 80s and 90s. Occasionally comes up above 100. But then goes back down again. Blood pressure is better. In addition to the metopro lol, I think the increase Librium has also brought down his blood pressure. Then pharmacy reconciled his medication list. He is on Lasix, Cozaar, propranolol. Plan: Discontinued metoprolol 01/06. Resumed propranolol 20 mg p.o. twice daily but low BP today so I will change parameters to give only with tachycardia >110 for 5 minutes. On Cozaar 100 mg p.o. daily, Lasix 20 mg daily. I will have pa rameters to hold less than systolic 110, or pulse less than 60. Qualifiers: Hypertension type: primary hypertension Qualified Code(s): I10 - Essential (primary) hypertension (8) Type 2 diabetes mellitus, uncontrolled Conclusion/Plan: He takes metformin 1000 mg p.o. twice daily. In view of dehydration, fluid shifts, liver disease, I did not resume his metformin. I resumed his low-carb diet on January 04. Waxing and waning appetite. He really likes his orange juice though. Glycosylated hemoglobin is 10.6%. As such, glucose is uncontrolled prior to admission. I had put him on Lantus 10 units at night. Glucose continue to be elevated at 10 units at night so I increasing to 15 units tonight on the evening of January 06. Glucose morning of 01/08 was 223. By lunch 253. By dinner 142. I increased him to 20 units last night. I also added 5 units with meals. But today his morning glucose was 130. Before lunch glucose was 86. And before dinner glucose was 96. Plan: I am walking back to 25 units of Lantus I ordered for tonight and he will stay on 20 of Lantus. And I will not give him 5 units with meals. He will get sliding scale. I met with the diabetic career technical education teacher. She was not able to see him today. But she will see him tomorrow. He already has Lantus called into the pharmacy and he says he has 5 vials waiting for him. Finances are an issue for him. He has about $1770 a month from disability. But he makes too much money for Medicaid. So as to be able to pay his rent, bills, and Co-pays out of the $1770. That is why he has not been compliant with getting into see people. It is cost him so much money. That and the fact that he was drinking his brai ns out he tells me Qualifiers: Glycemic state: with hyperglycemia Qualified Code(s): E11.65 - Type 2 diabetes mellitus with hyperglycemia (9) Chronic pain disorder Conclusion/Plan: Nursing and I discussed the case. We are aware that he has an active pump with Dilaudid infusing. I usually use 25 mg of Librium 3 times daily and acute alcohol withdrawal. However, this gentleman is getting an opioid. I do not want to over sedate him and have apnea. Hence I started at 5 mg Librium 3 times daily. I then quickly went up to 10 mg Librium, then 25 mg Librium. Even with this much Librium and a Dilaudid pump, he is not sedated. Not apneic. The pump is working as far as he knows. Pain is controlled. (10) Right inguinal hernia Conclusion/Plan: The clinic requested an ultrasound of his right inguinal hernia. General surgery said a CT or an ultrasound can be done. It did not matter. Since I was considering discharge for tomorrow or the day after, I thought it would be time to do the ultrasound. He had been telling me that it was in the right inguinal area. But when the machine tech got into the room he pointed to his umbilicus. He has had an easily reducible umbilical hernia that I was not worried about. But he says it hurts. Once ultrasound results came back with the fat-containing hernia, and nothing in his groin, I told him that he could be referred to general surgery. Either Dr. Barrios, or Dr. Murillo or Dr. Aragon. But that the hematuria had nothing to do with his hernia and he still needed to get evaluated for that.
[2023-01-09] MEDS ORDERED: INSULIN GLARGINE-YFGN 300 UNIT/3 ML PEN SUBQ SCH (21:00)
[2023-01-09] MEDS: cloNIDine 0.1 MG TABLET PO SCH (21:59)
[2023-01-09] MEDS: DOXEPIN 10 MG CAPSULE PO SCH (21:59)
[2023-01-09] MEDS: INSULIN GLARGINE-YFGN 300 UNIT/3 ML PEN SUBQ SCH (22:00)
[2023-01-09] MEDS: ATORVASTATIN 40 MG TABLET PO SCH (22:05)
[2023-01-10 06:02] LABS: ALBUMIN 3.2 g/dL (3.2-5.5); ALBUMIN/GLOBULIN RATIO 1.1 (1.0-2.2); BILIRUBIN,TOTAL 0.9 mg/dL (0.2-1.0); CALCIUM 8.8 mg/dL (8.5-10.3); CREATININE 0.6 mg/dL (0.6-1.2); POTASSIUM 3.9 mmol/L (3.5-5.0); TOTAL PROTEIN 6.1 g/dL (6.7-8.2)
[2023-01-10] MEDS: SODIUM CHLORIDE FLUSH 0.9% 10 ML SYRINGE IVP SCH ×3 (06:57→16:46)
[2023-01-10] MEDS: INSULIN LISPRO 300 UNIT/3 ML PEN SUBQ SCH ×4 (08:06→21:15)
[2023-01-10] MEDS: THIAMINE 100 MG TABLET PO SCH (08:09)
[2023-01-10] MEDS: FLUoxetine 10 MG CAPSULE PO SCH (08:09)
[2023-01-10] MEDS: SENNA 8.6 MG TABLET PO SCH ×3 (08:10→18:35)
[2023-01-10] MEDS: polyethylene glycoL 3350 17 GM PACKET PO SCH (08:10)
[2023-01-10] MEDS: ENOXAPARIN 40 MG/0.4 ML SYRINGE SUBQ SCH (08:11)
[2023-01-10] MEDS: PRENATAL VITAMIN TABLET PO SCH (08:11)
[2023-01-10] MEDS: TAMSULOSIN 0.4 MG CAPSULE PO SCH (08:11)
[2023-01-10] MEDS: FUROSEMIDE 20 MG TABLET PO SCH (08:12)
[2023-01-10] MEDS: LOSARTAN 50 MG TABLET PO SCH (08:12)
[2023-01-10] MEDS: DOCUSATE SODIUM 250 MG CAPSULE PO SCH ×2 (08:12→16:45)
[2023-01-10] MEDS ORDERED: MAGNESIUM HYDROXIDE 2,400 MG/30 ML UDC PO ONE (10:01)
[2023-01-10] MEDS: oxyCODONE 5 MG TABLET PO PRN ×3 (11:27→21:08)
--- NOTE | 2023-01-10 16:17 | PROVIDER PROGRESS NOTE ---
Assessment/Plan - Problem List (1) Type 2 diabetes mellitus, uncontrolled Assessment/Plan: He took metformin 1000 mg p.o. twice daily. In view of dehydration, fluid shifts, liver disease, we did not resume his metformin. I resumed his low-carb diet on January 04. Waxing and waning appetite. He really likes his orange juice though. Glycosylated hemoglobin was 10.6%. As such, glucose is uncontrolled debbi or to admission. We have him on Lantus and ssIns and adjusting the doses. He met with the diabetic education department registrar. He has taken Lantus himself, feels comfortable with injections Qualifiers: Glycemic state: with hyperglycemia Qualified Code(s): E11.65 - Type 2 diabetes mellitus with hyperglycemia (2) Alcoholic hepatitis Conclusion/Plan: He gives no history of ascites, cirrhosis. But I am surprised about that considering how long he has been drinking. INR is normal at 1.0 so his coagulation is still intact. His AST at 276 >>304>>188>>142>>83>>61 In October 2021 he was 59. ALT 193>>197>>187>>165>>122>>107. In October 2021 he was 57. Bili became normal 01/08. Ultrasound of the liver was done and he is hepatomegaly without solid masses. Gallbladder sludge without wall thickening. Spleen is normal size and homogenous in echotexture. Ducts are normal. No ascites. It appears that the damage has been transitory. His hepatitis is starting to resolve. He did not need steroids. Plan: He is asking to be referred to rehab. Social work has met with him. He is identified that he would like to do outpatient rehab. She has given him those facilities that will help him. Qualifiers: Ascites presence: without ascites Qualified Code(s): K70.10 - Alcoholic hepatitis without ascites (3) Alcohol dependance with withdrawal Impression: He has never had alcohol withdrawal, never had seizures, never had blackouts. And spite of being quite intoxicated by alcohol level seen on screening, he has managed to go into alcohol withdrawal. He usually drinks a gallon of alcohol a day but in the 2 days prior to admission went to 2 gallons a day. Last drink was the . By January 04 awake, oriented to place and person but off a little bit on the date. Still tremulous. Tachycardia resolved. Still hypertensive. He has received thiamine IV. Multivitamin IV is not available due to nationwide shortage..He has received 6 doses of Ativan 2 mg IV push between yesterday and today. He has received several doses this morning and into the afternoon. I had increased his Librium to 10 mg p.o. every 6 hours yesterday evening to today. Its not holding him. By 2:44 pm he is not able to be prompted So I have transferred him to the ICU. Once in ICU 01/04 and on librium 25 mg po tid, he was more comfortable on 01/05. Over the 24 hours of January 05 he received 9 doses of 2 mg of Ativan. On January 06 he received 4 doses of Ativan. As of midnight lApril 1, he has not received any doses. He tells me that all of his hallucinations are gone. And his tremors have almost completely resolved. By yesterday afternoon he was very stable. I had stopped the CIWA protocol with Ativan 2 mg IV push, and his Librium. He has not had any benzodiazepines since yesterday. This morning no tremors. Awake, alert. Still with psychomotor slowing. Really anxious to go home now. Plan: Thiamine 100 mg p.o. daily vitamin p.o. daily He tells me that he does not plan on drinking ever again. He is embarrassed and remorseful. His kids called him multiple times and he is sad that he put them through this. Qualifiers: Complication of substance-induced condition: with perceptual disturbance Qualified Code(s): F10.932 - Alcohol use, unspecified with withdrawal with perceptual disturbance (4) Alcohol intoxication in active alcoholic Conclusion/Plan: Alcohol level less than 5 On the morning of January 04 after being 412 on January 03. Unfortunately withdrawal did worsen as his alcohol level went to 0.. I was able to transfer him to the ICU. He was initially on high doses of Librium, and Ativan 2 mg IV push. As of 01/08 tremors have resolved, and he is now just sleeping more than anything else so I stopped the benzos on 01/08. Complication of substance-induced condition: with delirium Qualified Code(s): F10.921 - Alcohol use, unspecified with intoxication delirium (5) Suicidal ideation Conclusion/Plan: He had no clear plan. Statements of low self-worth. He just wanted to . He stated that that is why he went on the binge drinking episode. Now that he is through withdrawal, and is more alert, awake, he states he has no plans to kill himself. He is embarrassed, remorseful. Social work met with him and feels that he is stable enough for discharge. (6) Bipolar 1 disorder Conclusion/Plan: This gentleman takes lithium and Lamictal. Resumed both of those now that his alcohol level is 0. Plan: We will also resume his Prozac, Sinequan. (7) UTI (urinary tract infection) Conclusion/Plan: He states that he still has symptoms of hematuria, urgency, but urinalysis done On the morning of admission was normal. I added Flomax on admission, he says that his urgency feels better. PSA 0.36. Free PSA 0.027. Percent free PSA is 8. So no prostatitis. We finally did the ultrasound of "the groin" because that is where he said the problem was. But in evaluating him, he really has been describing his um bilicus. He feels that his umbilicus hernia is the cause of his hematuria. Plan: He should follow-up with Ling Garcia, possibly referred to Urology to the get a cystoscopy Qualifiers: Urinary tract infection type: site unspecified Hematuria presence: with hematuria Qualified Code(s): N39.0 - Urinary tract infection, site not specified; R31.9 - Hematuria, unspecified (8) Hypertension Conclusion/Plan: This is noted in his clinic record. But he is not on any hypertensive medications Listed on his medication list on admission. Here he was hypertensive in the ER. He was tachycardic with this in the 120s. Most likely due to withdrawal. A low-dose beta-guillermina was started Heart rate stays in the 80s - 100. In addition to the metoprolol, the increase Librium has also brought down his blood pressure. Then pharmacy reconciled his medication list. He is on Lasix, Cozaar, propranolol. Plan: Continue Lasix, Cozaar, propranolol, with parameters for holding Qualifiers: Hypertension type: primary hypertension Qualified Code(s): I10 - Essential (primary) hypertension (9) Chronic pain disorder Conclusion/Plan: He has an active implanted pump for 20+ years with Dilaudid infusing. I usually use 25 mg of Librium 3 times daily and acute alcohol withdrawal. However, this gentleman is getting an opioid. I do not want to over sedate him and have apnea. Hence I started at 5 mg Librium 3 times daily. I then quickly went up to 10 mg Librium, then 25 mg Librium. Even with this much Librium and a Dilaudid pump, he was not sedated. Not apneic. The pump is working as far as he knows. Pain is controlled. (10) Right inguinal hernia Conclusion/Plan: The clinic requested an ultrasound of his right inguinal hernia. General surgery said a CT or an ultrasound can be done. It did not matter. Since I was considering discharge for tomorrow or the day after, I thought it would be time to do the ultrasound. He had been telling me that it was in the right inguinal area. But when the pharmacy technician got into the room he pointed to his umbilicus. He has had an easily reducible umbilical hernia that I was not worried about. But he says it hurts. Once ultrasound results came back with the fat-containing hernia, and nothing in his groin, he should be referred to general surgery. The hematuria had nothing to do with his hernia, however and he still needs to get that evaluated - Current Meds Current Meds: Current Medications Generic Name Dose Route Start Last Admin Trade Name Freq PRN Reason Stop Dose Admin Acetaminophen 650 mg 01/03/23 15:58 01/09/23 14:29 Acetaminophen 325 Mg Tablet PO 650 mg Q4HR PRN Administration Pain 1 to 4, or Fever Atorvastatin Calcium 40 mg 01/06/23 21:00 01/09/23 22:05 Atorvastatin 40 Mg Tablet PO 40 mg HS RAND Administration Clonidine HCl 0.1 mg 01/06/23 21:00 01/09/23 21:59 Clonidine 0.1 Mg Tablet PO 0.1 mg HS RAND Administration Doxepin HCl 10 mg 01/06/23 21:00 01/09/23 21:59 Doxepin 10 Mg Capsule PO 10 mg HS RAND Administration Enoxaparin Sodium 40 mg 01/04/23 09:00 01/10/23 08:11 Enoxaparin 40 Mg/0.4 Ml Syringe SUBQ 40 mg DAILY RAND Administration Fluoxetine HCl 20 mg 01/07/23 09:00 01/10/23 08:09 Fluoxetine 10 Mg Capsule PO 20 mg DAILY RAND Administration Furosemide 20 mg 01/07/23 09:00 01/10/23 08:12 Furosemide 20 Mg Tablet PO 20 mg DAILY RAND Administration Ibuprofen 400 mg 01/03/23 15:58 01/08/23 21:15 Ibuprofen 400 Mg Tablet PO 400 mg Q4HR PRN Administration Pain 1 to 4 Insulin Glargine-yfgn 20 unit 01/09/23 21:00 01/09/23 22:00 Insulin Glargine-Yfgn 300 Unit/3 Ml Pen SUBQ 20 unit QPM RAND Administration Insulin Human Lispro 2 - 10 unit 01/06/23 21:00 01/10/23 11:28 Insulin Lispro 300 Unit/3 Ml Pen SUBQ 6 unit 0800,1200,1700,2100 RAND Administration Protocol Losartan Potassium 100 mg 01/07/23 09:00 01/10/23 08:12 Losartan 50 Mg Tablet PO 100 mg DAILY RAND Administration Ondansetron HCl 4 mg 01/03/23 15:58 01/04/23 08:22 Ondansetron Odt 4 Mg Tablet TL 4 mg Q6HR PRN Administration Nausea / Vomiting Ondansetron HCl 4 mg 01/03/23 15:58 01/06/23 21:25 Ondansetron 4 Mg/2 Ml Vial IVP 4 mg Q6HR PRN Administration Nausea / Vomiting Oxycodone HCl 5 mg 01/03/23 15:58 01/10/23 11:27 Oxycodone 5 Mg Tablet PO 5 mg Q4HR PRN Administration Pain 5 to 7 Polyethylene Glycol 17 gm 01/06/23 09:00 01/10/23 08:10 Polyethylene Glycol 3350 17 Gm Packet PO 17 gm DAILY [facility] Administration Multivit/Folic Acid/Iron 1 tab 01/04/23 09:00 01/10/23 08:11 Vitamin Tablet PO 1 tab DAILY [facility] Administration Prochlorperazine Edisylate 10 mg 01/05/23 19:39 01/05/23 21:00 Prochlorperazine 10 Mg/2 Ml Vial IVP 10 mg Q6HR PRN Administration Nausea / Vomiting Senna 17.2 - 25.8 mg 01/10/23 13:00 01/10/23 13:14 Senna 8.6 Mg Tablet PO 01/11/23 07:01 Not Given Q6H RAND Sodium Chloride 10 ml 01/03/23 15:58 01/06/23 21:25 Sodium Chloride Flush 0.9% 10 Ml Syringe IVP 10 ml PRN PRN Administration NEEDED PER PROVIDER ORDERS Sodium Chloride 10 ml 01/03/23 17:00 01/10/23 08:13 Sodium Chloride Flush 0.9% 10 Ml Syringe IVP 10 ml 0100,0900,1700 RAND Administration Tamsulosin HCl 0.4 mg 01/04/23 09:00 01/10/23 08:11 Tamsulosin 0.4 Mg Capsule PO 0.4 mg DAILY RAND Administration Thiamine HCl 100 mg 01/04/23 09:00 01/10/23 08:09 Thiamine 100 Mg Tablet PO 100 mg DAILY RAND Administration - Lab Result Fish Bone Diagrams: 01/07/23 05:14 01/10/23 05:13 - Additional Planning My Orders: My Active Orders 01/10/23 chemical operations and training Consult [CONS] Routine 01/10/23 13:00 Senna [Senokot] 17.2 - 25.8 mg PO Q6H 01/10/23 17:00 Docusate Sodium 250Mg Capsule [Colace 250Mg Capsule] 250 - 500 mg PO BID Subjective - Subjective Patient Reports: Feeling Better (Is working with PT and OT, motivated to be better) Nursing Reports: Other (Able to ambulate to the bathroom and back on his own) Objective Vital Signs: Vital Signs - 24 hr 01/09/23 01/10/23 23:05 07:37 Temperature 36.7 C 36.7 C Heart Rate [ 60 57 L Brachial] Respiratory 16 18 Rate Blood Pressure 112/70 104/66 [Right Brachial artery] O2 Saturation 98 99 Oxygen O2 Source Room air I&O (Last 24 Hrs): Intake and Output Totals x24h 01/08/23 01/09/23 01/10/23 23:59 23:59 23:59 Intake Total 1710 2400 1700 Output Total 1450 Balance 260 2400 1700 General: Alert, Oriented x3 HEENT: EOMI, Other (Swollen upper eyelids, sunken eyes) Neck: Supple Neuro: Alert, Other (No nystagmus, no tremor) Cardiovascular: Regular rate, No murmurs Respiratory: No respiratory distress, Breath sounds nml Abdomen: Normal bowel sounds, Soft, No tenderness Extremities: No clubbing, No edema - Results Results: Laboratory Results WBC 4.5 x10^3/uL (4.8-10.8) L 01/07/23 05:14 RBC 3.82 10^6/uL (4.70-6.10) L 01/07/23 05:14 Hgb 12.4 g/dL (14.0-18.0) L 01/07/23 05:14 Hct 37.4 % (42.0-52.0) L 01/07/23 05:14 MCV 97.9 fL (80.0-94.0) H 01/07/23 05:14 MCH 32.5 pg (27.0-31.0) H 01/07/23 05:14 MCHC 33.2 g/dL (32.0-36.0) 01/07/23 05:14 RDW 12.6 % (12.0-15.0) 01/07/23 05:14 Plt Count 153 10^3/uL (130-450) 01/07/23 05:14 MPV 10.3 fL (7.4-11.4) 01/07/23 05:14 Neut # (Auto) 2.7 10^3/uL (1.5-6.6) 01/07/23 05:14 Lymph # (Auto) 1.0 10^3/uL (1.5-3.5) L 01/07/23 05:14 [place] # (Auto) 0.6 10^3/uL (0.0-1.0) 01/07/23 05:14 Eos # (Auto) 0.1 10^3/uL (0.0-0.7) 01/07/23 05:14 Baso # (Auto) 0.0 10^3/uL (0.0-0.1) 01/07/23 05:14 Absolute Nucleated RBC 0.00 x10^3/uL 01/07/23 05:14 Nucleated RBC % 0.0 /100WBC 01/07/23 05:14 PT 11.0 secs (9.9-12.6) 01/03/23 00:25 INR 1.0 (0.8-1.2) 01/03/23 00:25 VBG pH 7.409 (7.31-7.41) 01/07/23 05:14 Ionized Calcium 1.11 mmol/L (1.15-1.33) L 01/07/23 05:14 Sodium 137 mmol/L (135-145) 01/10/23 05:13 Potassium 3.9 mmol/L (3.5-5.0) 01/10/23 05:13 Chloride 103 mmol/L (101-111) 01/10/23 05:13 Carbon Dioxide 27 mmol/L (21-32) 01/10/23 05:13 Anion Gap 7.0 (6-13) 01/10/23 05:13 BUN 11 mg/dL (6-20) 01/10/23 05:13 Creatinine 0.6 mg/dL (0.6-1.2) 01/10/23 05:13 Estimated GFR (MDRD) 140 (>89) 01/10/23 05:13 Glucose 162 mg/dL (70-100) H 01/10/23 05:13 Estimat Average Glucose 258 mg/dL (70-100) H 01/04/23 05:23 Hemoglobin A1c % 10.6 % (4.27-6.07) H 01/04/23 05:23 Calcium 8.8 mg/dL (8.5-10.3) 01/10/23 05:13 Phosphorus 3.8 mg/dL (2.5-4.6) 01/06/23 04:30 Magnesium 1.9 mg/dL (1.7-2.8) 01/07/23 05:14 Total Bilirubin 0.9 mg/dL (0.2-1.0) 01/10/23 05:13 AST 56 IU/L (10-42) H 01/10/23 05:13 ALT 78 IU/L (10-60) H 01/10/23 05:13 Alkaline Phosphatase 122 IU/L (42-121) H 01/10/23 05:13 Total Protein 6.1 g/dL (6.7-8.2) L 01/10/23 05:13 Albumin 3.2 g/dL (3.2-5.5) 01/10/23 05:13 Globulin 2.9 g/dL (2.1-4.2) 01/10/23 05:13 Albumin/Globulin Ratio 1.1 (1.0-2.2) 01/10/23 05:13 Lipase 99 U/L (22-51) H 01/03/23 00:25 Prostate Specific Ag 0.360 ng/mL (0.000-2.000) 01/04/23 09:03 Free PSA 0.027 ng/mL (0.16-2.81) L 01/04/23 09:03 % Free PSA Calc 8 % (25-100) L 01/04/23 09:03 TSH 4.43 uIU/mL (0.34-5.60) 01/03/23 00:25 Urine Color YELLOW 01/03/23 00:00 Urine Clarity CLEAR (CLEAR) 01/03/23 00:00 Urine pH 6.0 PH (5.0-7.5) 01/03/23 00:00 Ur Specific [place] <=1.005 (1.002-1.030) 01/03/23 00:00 Urine Protein TRACE mg/dL (NEGATIVE) 01/03/23 00:00 Urine Glucose (UA) >=1000 mg/dL (NEGATIVE) H 01/03/23 00:00 Urine Ketones TRACE mg/dL (NEGATIVE) 01/03/23 00:00 Urine Occult Blood NEGATIVE (NEGATIVE) 01/03/23 00:00 Urine Nitrite NEGATIVE (NEGATIVE) 01/03/23 00:00 Urine Bilirubin NEGATIVE (NEGATIVE) 01/03/23 00:00 Urine Urobilinogen 0.2 (NORMAL) E.U./dL (NORMAL) 01/03/23 00:00 Ur Leukocyte Esterase NEGATIVE (NEGATIVE) 01/03/23 00:00 Ur Microscopic Review NOT INDICATED 01/03/23 00:00 Urine Culture Comments NOT INDICATED 01/03/23 00:00 Nasal Screen MRSA (PCR) NEGATIVE (NEGATIVE) 01/03/23 17:58 Salicylates < 6.0 mg/dL 01/03/23 00:25 Urine Opiates Screen POSITIVE (NEGATIVE) H 01/03/23 00:00 Ur Oxycodone Screen NEGATIVE (NEGATIVE) 01/03/23 00:00 Urine Methadone Screen NEGATIVE (NEGATIVE) 01/03/23 00:00 Ur Propoxyphene Screen NEGATIVE (NEGATIVE) 01/03/23 00:00 Acetaminophen < 10 ug/mL (10-30) L 01/03/23 00:25 Ur Barbiturates Screen NEGATIVE (NEGATIVE) 01/03/23 00:00 Ur Tricyclics Screen NEGATIVE (NEGATIVE) 01/03/23 00:00 Ur Phencyclidine Scrn NEGATIVE (NEGATIVE) 01/03/23 00:00 Ur Amphetamine Screen NEGATIVE (NEGATIVE) 01/03/23 00:00 U Methamphetamines Scrn NEGATIVE (NEGATIVE) 01/03/23 00:00 U Benzodiazepines Scrn NEGATIVE (NEGATIVE) 01/03/23 00:00 Urine Cocaine Screen NEGATIVE (NEGATIVE) 01/03/23 00:00 U Cannabinoids Screen NEGATIVE (NEGATIVE) 01/03/23 00:00 Ethyl Alcohol < 5.0 mg/dL 01/04/23 05:23
[2023-01-10] MEDS: cloNIDine 0.1 MG TABLET PO SCH (21:08)
[2023-01-10] MEDS: ATORVASTATIN 40 MG TABLET PO SCH (21:08)
[2023-01-10] MEDS: INSULIN GLARGINE-YFGN 300 UNIT/3 ML PEN SUBQ SCH (21:14)
[2023-01-11] MEDS: SENNA 8.6 MG TABLET PO SCH ×2 (00:03→01:23)
[2023-01-11] MEDS: SODIUM CHLORIDE FLUSH 0.9% 10 ML SYRINGE IVP SCH ×2 (00:58→08:15)
[2023-01-11] MEDS: oxyCODONE 5 MG TABLET PO PRN ×3 (00:58→10:49)
[2023-01-11 07:29] VITALS: BP 112/68
[2023-01-11] MEDS: ENOXAPARIN 40 MG/0.4 ML SYRINGE SUBQ SCH (08:13)
[2023-01-11] MEDS: PRENATAL VITAMIN TABLET PO SCH (08:14)
[2023-01-11] MEDS: FLUoxetine 10 MG CAPSULE PO SCH (08:14)
[2023-01-11] MEDS: IBUPROFEN 400 MG TABLET PO PRN (08:14)
[2023-01-11] MEDS: polyethylene glycoL 3350 17 GM PACKET PO SCH (08:14)
[2023-01-11] MEDS: DOCUSATE SODIUM 250 MG CAPSULE PO SCH (08:15)
[2023-01-11] MEDS: FUROSEMIDE 20 MG TABLET PO SCH (08:15)
[2023-01-11] MEDS: THIAMINE 100 MG TABLET PO SCH (08:15)
[2023-01-11] MEDS: TAMSULOSIN 0.4 MG CAPSULE PO SCH (08:15)
[2023-01-11] MEDS: LOSARTAN 50 MG TABLET PO SCH (08:15)
[2023-01-11] MEDS: INSULIN LISPRO 300 UNIT/3 ML PEN SUBQ SCH ×2 (08:16→12:13)
--- NOTE | 2023-01-11 13:57 | Discharge Plan ---
Discharge Plan Problem Reviewed?: Yes Disposition: 06 Home Health Service Condition: Stable Prescriptions: Tamsulosin [Flomax] 0.4 mg PO DAILY #30 cap Blood Sugar Diagnostic [Glucose Test Strip] 1 each SQ ACHS #120 strip Insulin Lispro [Humalog Kwikpen U-100] 2 - 10 unit SQ ACHS #1 ea Insulin Glargine [Lantus Solostar] 20 unit SQ QPM #1 ea [place], Disposable [Needle] 1 each SQ ACHS #120 ea Lancets [Onetouch Delica Safety Lancet] 1 each MC ACHS #120 each Blood-Glucose Meter [Onetouch Verio Reflect Meter] 1 each MC ACHS #1 each Thiamine [Vitamin B-1] 100 mg PO DAILY #30 tab Diet: Diabetic Activity Restrictions: Activity as Tolerated Shower Restrictions: No Driving Restrictions: Yes (Ask PCP about the Blow and Go) Instruction Topics: ED Alcohol Intoxication Health Concerns: You were hospitalized to manage alcohol withdrawal, alcohol dependence, diabetes mellitus with poor control, and needed to be in the ICU, as you were critically ill. You are being discharged home today. Remember to abstain from alcohol completely. Social Work has provided other resources for you to stay sober. A new prescription for daily Thiamine has been electronically prescribed to your [facility] pharmacy in [place], it helps in alcoholics. Please stop taking your Metformin. You are now on Insulin, and all the supplies plus insulin pens have been ordered for you. They have also been electronically prescribed to your [facility] pharmacy in [place]. Please see your Primary Care Provider in the next 5 - 10 days for a hospital follow-up visit. You have an appointment to see Nurse Practitioner Ling Garcia on 01/17/23, at 11:00 a.m. That is the time to talk to her about changing your driving restriction, when using Blow and Go, because of poorly fitting dentures. Also come to the [facility] clinic appointment here for diabetic education. A Home Health referral has been sent for you to get a Nurse check your Insulin dosing, a Bath Aide, and for rehab with PT and OT. Plan of Treatment: As above. Care Goals: Improvement in symptoms and stabilization are the goals. Assessment: The patient understands and is agreeable with the plan. Additional Instructions or Follow Up instructions: If you have new or worsening symptoms, call your PCP for advice or come to the ER. Follow-Up Care: [facility] - Diabetes Ed No Smoking: If you smoke, Please STOP! Call for help. Follow-up with: Ling Garcia ARNP [Provider Admit Priv/Credential] -
--- NOTE | 2023-01-11 14:22 | DISCHARGE SUMMARY ---
Discharge Summary Admit Date: 01/03/23 Discharge Date: 01/11/23 Discharging Provider: Lia Ferguson MD Primary Care Provider: Ling Garcia NP Condition at Discharge: Stable Discharge Disposition: [facility] [place] [facility] - [facility] History of Present Illness: 52-year-old man who showed up in the emergency room last night around 11:19 PM, drinking a gallon of alcohol a day, and was describing suicidal ideation to a crisis line at [facility]. Police were called to the scene and they called EMS and he was brought to the emergency room. His alcohol level was 412 mg/dL. Urine toxicology screen was positive for opiates, not anything else. He was kept in the emergency room overnight as they waited for him to sober up. Then they could reevaluate him for suicidal ideation when he was no longer intoxicated. However he has now started going through withdrawal. He is hypertensive with 103 diastolic blood pressure, and heart rate varies between 106-130. The emergency room provider has asked if we could please admit this patient for alcohol withdrawal. And again the plan would be for him to be evaluated when he is longer going through withdrawal, for suicidal ideation. He is described as tremulous, tearful, making statements about his lack of worth. Chest x-ray was negative for acute cardiopulmonary changes. And head CT had no acute intracranial abnormality. He has received IV thiamine, but not multivitamin since we have an IV shortage of multivitamins. He is able to take p.o. He is followed by multiple providers in our local community clinic. He was seen in the walk-in clinic January 05 for "shaking for the last 2 months" plus blood in his urine for a week. He described a burning sensation with urination, but no fever or chills. He also had a small painful lump to his right penis. Urine was cloudy, viscous, had a bad odor. 2+ leukocytes. Positive nitrites. Positive hematuria. 5+ glucosuria. He had a reducible right inguinal hernia. He was described as alert, cooperative, normal attention span. They ordered an ultrasound for his hernia but he has not been able to follow-up on that. And they gave him Cipro 500 mg twice daily. He was supposed to follow-up with his primary care provider, Dr. Eliot Garland at [facility]. He tells me that he still having hematuria, urgency, frequency. No flank pain. Denies fevers, chills, sweats. He completed the doses of Cipro but he said he only got 6 pills. He binge drinks about every 3 weeks. While he told the ER doctor that he takes in a gallon a day, he thinks he is probably doing 2 gallons a day for the last 2 days. But before that, he was doing 1 gallon a day. This is the w orst he has ever felt. He says that he can be very hungover but has never had tremors, or shakes the way he does right now. He denies seizures, blackouts. He has diminished vision as he is gotten older. But he denies cataracts. He does have blurred vision. No problems with dysphagia. Had his teeth taken out during COVID. No emphysema problems with coughing, shortness of breath, wheezing or phlegm production. Denies any history of [place], angina, orthopnea, edema. He is very sedentary because of his chronic back pain. Does not really do any exercise at all. But he is able to complete his activities of daily living on his own. He lives by himself. Has a Dilaudid intrathecal pump as we ll as a nerve stimulator. He got that put in about 22 years ago and then redone maybe 2 years later. He is followed by Dr. Ady Oleary at [facility]. He is chronically constipated. No diarrhea. No change in his bowel habits. Has chronic back pain, and sciatica left leg pain. No urinary or bowel incontinence. No history of seizures, syncope. Bipolar disorder. He says he has never tried to kill himself before. Has no current plans right now in spite of his feeling like he wants to . He also takes Metformin 1000 mg p.o. twice daily for DM. - HOSPITAL COURSE Hospital Course: (1) Alcohol intoxication in active alcoholic Alcohol level was 412 on January 03. Unfortunately, his alcohol withdrawal did worsen as his serum alcohol level went to 0. He needed management in the ICU. He was initially on high doses of Librium, and Ativan IV pushes. As of 01/08 tremors resolved, and he was sedated, so benzos were stopped (2) Alcohol dependance with withdrawal He has never had alcohol withdrawal, never had seizures, never had blackouts. And spite of being quite intoxicated by alcohol level seen on admission, he managed to go into alcohol withdrawal. He usually drinks a gallon of alcohol a day but in the 2 days prior to admission, he went up to 2 gallons a day. Last drink was the . He went through withdrawal on January 03, and by January 04 he awoke, was lethargic but oriented to place and person but off on the date and was still tremulous. He received thiamine IV and a Multivitamin when he could take po, due to nationwide shortage of IV form. He needed Ativan IV and Librium orally. On 01/07, he said all of his hallucinations were gone, and his tremors almost completely resolved. He stated that he does not plan on drinking alcohol ever again. He was embarrassed and remorseful. His kids called him multiple times and he was sad that he put them through this. Home Health referral for PT and OT was sent in. (3) Suicidal ideation He had no clear plan. Statements of low self-worth. He just wanted to . He stated that that is why he went on the binge drinking episode. Now that he is through withdrawal, and is more alert, awake, he states he has no plans to kill himself. He is embarrassed, remorseful. Social work met with him and feels t hat he is stable enough for discharge. (4) Type 2 diabetes mellitus, uncontrolled He took metformin 1000 mg p.o. twice daily. In view of dehydration, fluid shifts, liver disease, we did not resume his metformin. We started low-carb diet on January 04. Glycosylated hemoglobin was 10.6%, so glucose was uncontrolled prior to admission. We had him on Lantus and ss Insulin and adjusted the doses. He met with the diabetic special education paraeducator. He was discharged on Insulin, was comfortable with injections. Home Health external grinder tender was ordered, to check him at home. (5) Alcoholic hepatitis He gives no history of ascites or cirrhosis, despite how long he has been drinking. INR was normal at 1.0. His AST was 276 >>304>>188>>142>>83>>61 In October 2021 AST was 59. ALT 193>>197>>187>>165>>122>>107. In October 2021 ALT was 57. Bili was 1.4 and became normal on 01/08. Ultrasound of the liver was done and he has hepatomegaly without solid masses. Gallbladder sludge without wall thickening. Spleen is normal size and homogenous in echotexture. Ducts are normal. No ascites. It appeared that the damage was transitory. His hepatitis was starting to resolve. He did not need steroids. He asked to be referred to rehab. Social work met with him and identified that he would like to do outpatient rehab. She gave him those facilities that will help him. (6) Bipolar 1 disorder We resumed his [place] and Lamictal, then when his alcohol level was 0, also resumed his Prozac, [place]. (7) UTI (urinary tract infection) He states that he still has symptoms of hematuria, urgency, but urinalysis done on admission was normal. We added Flomax on admission, he says that his urgency feels better. His PSA 0.36 and Free PSA 0.027 and Percent free PSA is 8. So no prostatitis. We finally did the ultrasound of "the groin" because that is where he said the problem was. But in evaluating him, he really has been describing his umbilicus. (He felt that his umbilical hernia is the cause of his hematuria). He should follow-up with hs PCP Ling Garcia NP and be referred to Urology to the get a cystoscopy (8) Hypertension Here he was hypertensive in the ER and tachycardic with HRs of 120s. This was most likely due to alcohol withdrawal. We started a low-dose beta-guillermina. When the pharmacy reconciled his medication list, we restarted his Lasix, Cozaar, and Propranolol. (9) Chronic pain disorder He has an active implanted pump for 20+ years with Dilaudid infusing. He got 5 mg Librium 3 times dailybut needed increase to 10 mg Librium, then 25 mg Librium. Even with this much Librium and a Dilaudid pump, he was not easily sedated. The pump is working as far as he knows, and his pain is controlled. (10) Right inguinal hernia He had been saying that it was in the right inguinal area. But when the organic section technical lead got into the room he pointed to his umbilicus. He has had an e asily reducible umbilical hernia that I was not worried about. But he says it hurts. Once ultrasound results came back showing the fat-containing hernia, and nothing in his groin, he was told him that he could be referred to general surgery. Either Dr. Barrios, or Dr. Murillo or Dr. Aragon could see him, but that the hematuria had nothing to do with this hernia. - ALLERGIES Allergies/Adverse Reactions: Allergies Allergy/AdvReac Type Severity Reaction Status Date / Time penicillin G Allergy Severe hearing Verified 05/17/19 16:33 loss left ear povidone-iodine Allergy Severe Respiratory Verified 05/17/19 16:33 [From Betadine] soap * [From Betadine] Allergy Severe Respiratory Verified 05/17/19 16:33 clonidine Allergy Unknown Verified 06/22/20 08:50 iodine Allergy Unknown Verified 06/22/20 08:50 nortriptyline Allergy Unknown Verified 06/22/20 08:50 shellfish derived Allergy skin Verified 05/17/19 16:33 burning Sulfa (Sulfonamide Allergy Unknown Verified 06/22/20 08:50 Antibiotics) sterile banadage Allergy Unknown Uncoded 06/22/20 08:50 steroids Allergy Unknown Uncoded 06/22/20 08:50 - MEDICATIONS Home Medications: Ambulatory Orders Medication Instructions Recorded Confirmed Atorvastatin Calcium 1 tab PO HS 01/04/23 01/04/23 Dextroamphetamine/Amphetamine 1 tab PO BID 01/04/23 01/04/23 [Adderall 20 mg Tablet] Doxepin [SINEquan] 1 cap PO HS 01/04/23 01/04/23 Fluoxetine HCl [Prozac] 1 cap PO DAILY 01/04/23 01/04/23 Furosemide [Lasix] 1 tab PO DAILY 01/04/23 01/04/23 Hydromorphone HCl/Pf [Dilaudid] 9 mg IT DAILY 01/04/23 01/04/23 Losartan Potassium [Cozaar] 1 tab PO DAILY 01/04/23 01/04/23 Omeprazole 1 cap PO BID 01/04/23 01/04/23 Propranolol HCl 1 tab PO BID 01/04/23 01/04/23 cloNIDine [Catapres] 1 - 2 tab PO HS 01/04/23 01/04/23 Blood Sugar Diagnostic [Glucose 1 each SQ ACHS #120 strip 01/11/23 Test Strip] Blood-Glucose Meter [Onetouch 1 each MC ACHS #1 each 01/11/23 Verio Reflect Meter] Insulin Glargine [Lantus Solostar] 20 unit SQ QPM #1 ea 01/11/23 Insulin Lispro [Humalog Kwikpen 2 - 10 unit SQ ACHS #1 ea 01/11/23 U-100] Lancets [Onetouch Delica Safety 1 each [facility] #120 each 01/11/23 Lancet] [place], Disposable [Needle] 1 each SQ ACHS #120 ea 01/11/23 Tamsulosin [Flomax] 0.4 mg PO DAILY #30 cap 01/11/23 Thiamine [Vitamin B-1] 100 mg PO DAILY #30 tab 01/11/23 - PHYSICAL EXAM AT DISCHARGE General Appearance: positive: No acute distress, Alert Eyes Bilateral: positive: Other (Lids are swollen) ENT: positive: ENT inspection nml, No signs of dehydration, Other (Has dentures) Neck: positive: Nml inspection, No JVD Respiratory: positive: No respiratory distress, Breath sounds nml Cardiovascular: positive: Regular rate & rhythm, No murmur Abdomen: positive: Non-tender, Nml bowel sounds Skin: positive: Warm, Dry Extremities: positive: Non-tender, No pedal edema Neurologic/Psychiatric: positive: Oriented x3, Motor nml - LABS Result Diagrams: 01/07/23 05:14 01/10/23 05:13 - FOLLOW UP Follow Up: See PCP in 1-2 weeks for hospital follow-up and for referral to Gen Surgery and to Urology. - TIME SPENT Time Spent in Discharge (Minutes): 45
== END 2023-01-11 14:25 | disposition home health service (06) | DRG 897 ==
LOC: EDUNIT# → ED 23:10 → EEVIPCON 01-03 15:58 → MS3 01-03 15:58 → ICU 01-04 15:03 → MS2 01-09 07:49
PROVIDERS: ADMIT Specialist; ATTEND Internal Medicine
DX: F10.229 Alcohol dependence with intoxication, unspecified (principal); F10.232 Alcohol dependence with withdrawal with perceptual disturbance; F32.A Depression, unspecified; Y90.2 Blood alcohol level of 40-59 mg/100 ml; F41.9 Anxiety disorder, unspecified; G89.29 Other chronic pain; M54.9 Dorsalgia, unspecified; R05.9 Cough, unspecified; R41.82 Altered mental status, unspecified; Z91.81 History of falling; R45.851 Suicidal ideations; N39.0 Urinary tract infection, site not specified; F10.231 Alcohol dependence with withdrawal delirium; I10 Essential (primary) hypertension; H53.8 Other visual disturbances; K59.09 Other constipation; M54.30 Sciatica, unspecified side; M79.605 Pain in left leg; E86.0 Dehydration; K70.10 Alcoholic hepatitis without ascites; F31.9 Bipolar disorder, unspecified; K42.9 Umbilical hernia without obstruction or gangrene; E78.00 Pure hypercholesterolemia, unspecified; G47.30 Sleep apnea, unspecified; K21.9 Gastro-esophageal reflux disease without esophagitis; M19.90 Unspecified osteoarthritis, unspecified site; M51.9 Unspecified thoracic, thoracolumbar and lumbosacral intervertebral disc disorder; E66.9 Obesity, unspecified; E11.65 Type 2 diabetes mellitus with hyperglycemia; R31.9 Hematuria, unspecified; Y90.8 Blood alcohol level of 240 mg/100 ml or more; Z79.4 Long term (current) use of insulin; Z79.84 Long term (current) use of oral hypoglycemic drugs; Z79.890 Hormone replacement therapy; Z79.891 Long term (current) use of opiate analgesic; Z79.899 Other long term (current) drug therapy; Z80.6 Family history of leukemia; Z82.0 Family history of epilepsy and other diseases of the nervous system; Z82.49 Family history of ischemic heart disease and other diseases of the circulatory system; Z83.3 Family history of diabetes mellitus; Z88.0 Allergy status to penicillin; Z88.2 Allergy status to sulfonamides; Z88.8 Allergy status to other drugs, medicaments and biological substances; Z90.49 Acquired absence of other specified parts of digestive tract; Z91.013 Allergy to seafood; Z91.048 Other nonmedicinal substance allergy status; Z96.82 Presence of neurostimulator
CPT/HCPCS: 36415; 70450; 71045; 76700; 76705; 80053; 80306; 80307; 81003; 82330; 83036; 83690; 83735; 84100; 84132; 84153; 84154; 84443; 85025; 85610; 87150; 87640; 96365; 96375; 96376; 97116; 97162; 99285; A9270; G0480; J1650; J1815; J2060; J3411; Q0162; 80320; 80329; 81001; 87086

== ENCOUNTER 2023-01-14 09:44 | Outpatient (CLI) | payer MEDICARE | END 2023-01-14 23:59 | disposition short-term general hospital (02) | LOC: EMS 09:44 | DX: S01.81XA Laceration without foreign body of other part of head, initial encounter (principal); S09.92XA Unspecified injury of nose, initial encounter; T22.211A Burn of second degree of right forearm, initial encounter; S20.219A Contusion of unspecified front wall of thorax, initial encounter; W19.XXXA Unspecified fall, initial encounter; Y92.002 Bathroom of unspecified non-institutional (private) residence as the place of occurrence of the external cause; R41.0 Disorientation, unspecified; R45.851 Suicidal ideations; F10.10 Alcohol abuse, uncomplicated; E11.65 Type 2 diabetes mellitus with hyperglycemia | CPT/HCPCS: A0425; A0429; A0888 ==

== ENCOUNTER 2023-01-20 10:07 | Outpatient (CLI) | payer MEDICARE | END 2023-01-20 23:59 | disposition critical access hospital (66) | LOC: EMS 10:07 | DX: R45.851 Suicidal ideations (principal); F10.10 Alcohol abuse, uncomplicated | CPT/HCPCS: A0425; A0427 ==

== ENCOUNTER 2023-01-20 10:23 | Emergency (ER) | payer MEDICARE ==
[2023-01-20] MEDS ORDERED: HALOPERIDOL 5 MG/ML VIAL IM STA (11:04)
--- OUTSIDE RECORDS SUMMARY | 2023-01-20 11:07 | EXTERNAL MEDICAL SUMMARY RPT | Continuity of Care Document ---
:1970 Author Organization [facility] Address [address] [place] [address] Phone Care Team Providers Name Role Phone Unavailable Unavailable Unavailable Octavio Dewey Unavailable Unavailable Allergies and Intolerances date description facility type (no date) penicillin G [facility] (unknown) (no date) povidone-iodine [facility] (unknown) (no date) shellfish derived [facility] (unknown) (no date) soap [facility] (unknown) Encounters No information. Functional Status No information. Immunizations date description facility 2023 00:00 Tetanus, Diphtheria, Pertussis (Tdap) [facility] Medications date description facility 2023 00:00 Furosemide [facility] 2023 00:00 Dextroamphetamine-Amphetamine [facility] 2023 00:00 Atorvastatin [facility] 2023 00:00 Insulin Glargine [facility] 2023 00:00 Propranolol [facility] 2023 00:00 Tamsulosin [facility] 2023-01-19 00:00 Chlordiazepoxide Hcl [facility] 2023 00:00 [facility] Problems date description facility 2023 00:00 Alcohol abuse [facility] 2023 00:00 Encephalopathy [facility] 2023 00:00 Atrial fibrillation with rapid ventricu lar [facility] response 2023 00:00 Suicidal ideation [facility] 2023 00:00 Facial laceration [facility] 2023-01-15 00:00 Hyperlipidemia due to type 1 diabetes m ellitus [facility] 2023-01-15 00:00 Alcoholic intoxication [facility] 2023-01-15 00:00 Primary hypertension [facility] 2023-01-15 00:00 Benign prostatic hyperplasia [facility] 2023-01-15 00:00 Recurrent falls [facility] 2023-01-15 00:00 Injury of head [facility] 2023-01-16 09:35 Alcohol dependence with withdrawal, uns pecified [facility] 2023-01-16 09:45 Alcohol dependence with withdrawal, [facility] 2023-01-16 09:49 Alcohol dependence with withdrawal, [facility] 2023-01-16 11:50 Alcohol dependence with withdrawal, [facility] 2023-01-16 13:57 Alcohol dependence with withdrawal, [facility] 2023-01-17 08:55 Alcohol dependence with withdrawal, [facility] 2023-01-17 09:11 Alcohol dependence with withdrawal, [facility] 2023-01-17 10:54 Alcohol dependence with withdrawal, [facility] 2023-01-18 08:24 Alcohol dependence with withdrawal, [facility] 2023-01-18 14:08 Alcohol dependence with withdrawal, [facility] 2023-01-18 14:10 Alcohol dependence with withdrawal, [facility] 2023-01-19 09:22 Alcohol dependence with withdrawal, [facility] 2023-01-19 10:51 Alcohol dependence with withdrawal, [facility] 2023-01-19 11:13 Alcohol dependence with withdrawal, [facility] 2023-01-19 14:43 Alcohol dependence with withdrawal, [facility] 2023-01-19 15:30 Alcohol dependence with withdrawal, [facility] 2023-01-20 08:35 Alcohol dependence with withdrawal, [facility] Procedures date description facility 2023 00:00 XR pelvis, 1-2 views [facility] 2023 00:00 Computed tomography of head or brain wi [facility] contrast 2023 00:00 X-ray of chest, single view [facility] 2023-01-15 00:00 Complete Doppler echocardiography [facility] 2023 00:00 Computed tomography of cervical spine w [facility] contrast 2023 00:00 Magnetic resonance imaging of brain for stroke [facility] alert Results/Labs test date author facility value unit interpret ation Result panel 1 (unknown) (no date) (unknown) [place] [facility]) Result panel 2 (unknown) (no date) (unknown) [place] [facility] Result panel 3 (unknown) (no date[facility]) Result panel 4 (unknown) (no date) ([facility] Result panel 5 (unknown) (no date) ([facility] Result panel 6 (unknown) (no date) ([facility] Result panel 7 (unknown) (no date) (unknown[facility] Result panel 8 (unknown) (no date) (unknown[facility] Result panel 9 (unknown) (no date) (unknown[facility] Result panel 10 (unknown) (no date) (unknown[facility] Result panel 11 (unknown) (no date) (unknown[facility] Result panel 12 (unknown) (no date) (unknown[facility] Result panel 13 (unknown) (no date) (unknown[facility] Result panel 14 (unknown) (no date) (unknown[facility] Result panel 15 (unknown) (no date) (unknown[facility] Result panel 16 (unknown) (no date) (unknown[facility] Result panel 17 (unknown) (no date) (unknown[facility] Result panel 18 (unknown) (no date) (unknown[facility] Result panel 19 (unknown) (no date) (unknown[facility] Result panel 20 (unknown) (no date) (unknown[facility] Result panel 21 (unknown) (no date) (unknown[facility] Result panel 22 (unknown) (no date) (unknown[facility] Result panel 23 (unknown) (no date) (unknown[facility] Result panel 24 (unknown) (no date) (unknown[facility]) Result panel 25 (unknown) (no date) (unknown[facility] Result panel 26 (unknown) (no date) (unknown[facility]) Result panel 27 (unknown) (no date) (unknown[facility] Result panel 28 (unknown) (no date) (unknown[facility] Result panel 29 (unknown) (no date) (unknown[facility] Result panel 30 (unknown) (no date) (unknown[facility] Result panel 31 (unknown) (no date) (unknown[facility] Result panel 32 (unknown) (no date) (unknown[facility]) Result panel 33 (unknown) (no date) (unknown[facility] Result panel 34 (unknown) (no date) (unknown[facility]) Result panel 35 (unknown) (no date) (unknown[facility] Result panel 36 (unknown) (no date) (unknown[facility]) Result panel 37 (unknown) (no date) (unknown[facility] Result panel 38 (unknown) (no date) (unknown[facility] Result panel 39 (unknown) (no date) (unknown[facility]) Result panel 40 (unknown) (no date) (unknown[facility] Result panel 41 (unknown) (no date) (unknown[facility]) Result panel 42 (unknown) (no date) (unknown[facility] Result panel 43 (unknown) (no date) (unknown[facility]) Result panel 44 (unknown) (no date) (unknown[facility] Result panel 45 (unknown) (no date) (unknown[facility]) Result panel 46 (unknown) (no date) (unknown[facility]) Result panel 47 (unknown) (no date) (unknown[facility]) Result panel 48 (unknown) (no date) (unknown[facility] Result panel 49 (unknown) (no date) (unknown[facility]) Result panel 50 (unknown) (no date) (unknown[facility] Result panel 51 (unknown) (no date) (unknown[facility]) Result panel 52 (unknown) (no date) (unknown[facility] Result panel 53 (unknown) (no date) (unknown[facility]) Result panel 54 (unknown) (no date) (unknown[facility] Result panel 55 (unknown) (no date) (unknown[facility] Result panel 56 (unknown) (no date) (unknown[facility]) Result panel 57 (unknown) (no date) (unknown[facility] Result panel 58 (unknown) (no date) (unknown[facility]) Result panel 59 (unknown) (no date) (unknown[facility] Result panel 60 (unknown) (no date) (unknown[facility]) Result panel 61 (unknown) (no date) (unknown[facility] Result panel 62 (unknown) (no date) (unknown[facility]) Result panel 63 (unknown) (no date) (unknown[facility] Result panel 64 (unknown) (no date) (unknown[facility]) Result panel 65 (unknown) (no date) (unknown[facility]) Result panel 66 (unknown) (no date) (unknown[facility]) Result panel 67 (unknown) (no date) (unknown[facility]) Result panel 68 (unknown) (no date) (unknown[facility] Result panel 69 (unknown) (no date) (unknown[facility]) Result panel 70 (unknown) (no date) (unknown[facility] Result panel 71 (unknown) (no date) (unknown[facility]) Result panel 72 (unknown) (no date) (unknown[facility] Result panel 73 (unknown) (no date) (unknown[facility] Result panel 74 (unknown) (no date) (unknown[facility]) Result panel 75 (unknown) (no date) (unknown[facility] Result panel 76 (unknown) (no date) (unknown[facility]) Result panel 77 (unknown) (no date) (unknown[facility] Result panel 78 (unknown) (no date) (unknown[facility] Result panel 79 (unknown) (no date) (unknown[facility] Result panel 80 (unknown) (no date) (unknown[facility] Result panel 81 (unknown) (no date) (unknown[facility]) Result panel 82 (unknown) (no date) (unknown[facility] Result panel 83 (unknown) (no date) (unknown[facility]) Result panel 84 (unknown) (no date) (unknown[facility]) Result panel 85 (unknown) (no date) (unknown[facility]) Result panel 86 (unknown) (no date) (unknown[facility] Result panel 87 (unknown) (no date) (unknown[facility]) Result panel 88 (unknown) (no date) (unknown[facility] Result panel 89 (unknown) (no date) (unknown[facility]) Result panel 90 (unknown) (no date) (unknown[facility] Result panel 91 (unknown) (no date) (unknown[facility]) Result panel 92 (unknown) (no date) (unknown[facility]) Result panel 93 (unknown) (no date) (unknown[facility] Result panel 94 (unknown) (no date) (unknown[facility]) Result panel 95 (unknown) (no date) (unknown[facility]) Result panel 96 (unknown) (no date) (unknown[facility]) Result panel 97 (unknown) (no date) (unknown[facility]) Result panel 98 (unknown) (no date) (unknown[facility] Result panel 99 (unknown) (no date) (unknown[facility]) Result panel 100 (unknown) (no date) (unknown[facility]) Result panel 101 (unknown) (no date) (unknown[facility]) Result panel 102 (unknown) (no date) (unknown[facility]) Result panel 103 (unknown) (no date) (unknown[facility] Result panel 104 (unknown) (no date) (unknown[facility]) Result panel 105 (unknown) (no date) (unknown[facility]) Result panel 106 (unknown) (no date) (unknown[facility]) Result panel 107 (unknown) (no date) (unknown[facility]) Result panel 108 (unknown) (no date) (unknown[facility] Result panel 109 (unknown) (no date) (unknown[facility]) Result panel 110 (unknown) (no date) (unknown[facility]) Result panel 111 (unknown) (no date) (unknown[facility]) Result panel 112 (unknown) (no date) (unknown[facility] Result panel 113 (unknown) (no date) (unknown[facility]) Result panel 114 (unknown) (no date) (unknown[facility] Result panel 115 (unknown) (no date) (unknown[facility]) Result panel 116 (unknown) (no date) (unknown[facility]) Result panel 117 (unknown) (no date) (unknown[facility]) Result panel 118 (unknown) (no date) (unknown[facility]) Result panel 119 (unknown) (no date) (unknown[facility]) Result panel 120 (unknown) (no date) (unknown[facility]) Result panel 121 (unknown) (no date) (unknown[facility]) Result panel 122 (unknown) (no date) (unknown[facility]) Result panel 123 (unknown) (no date) (unknown[facility] Result panel 124 (unknown) (no date) (unknown[facility]) Result panel 125 (unknown) (no date) (unknown[facility]) Result panel 126 (unknown) (no date) (unknown[facility]) Result panel 127 (unknown) (no date) (unknown[facility]) Result panel 128 (unknown) (no date) (unknown[facility] Result panel 129 (unknown) (no date) (unknown[facility]) Result panel 130 (unknown) (no date) (unknown[facility]) Result panel 131 (unknown) (no date) (unknown[facility]) Result panel 132 (unknown) (no date) (unknown[facility] Result panel 133 (unknown) (no date) (unknown[facility]) Result panel 134 (unknown) (no date) (unknown[facility]) Result panel 135 (unknown) (no date) (unknown[facility]) Result panel 136 (unknown) (no date) (unknown[facility]) Result panel 137 (unknown) (no date) (unknown[facility]) Result panel 138 (unknown) (no date) (unknown[facility]) Result panel 139 (unknown) (no date) (unknown[facility]) Result panel 140 (unknown) (no date) (unknown[facility]) Result panel 141 (unknown) (no date) (unknown[facility]) Result panel 142 (unknown) (no date) (unknown[facility]) Result panel 143 (unknown) (no date) (unknown[facility]) Result panel 144 (unknown) (no date) (unknown[facility]) Result panel 145 (unknown) (no date) (unknown[facility] Result panel 146 (unknown) (no date) (unknown[facility]) Result panel 147 (unknown) (no date) (unknown[facility]) Result panel 148 (unknown) (no date) (unknown[facility]) Result panel 149 (unknown) (no date) (unknown[facility] Result panel 150 (unknown) (no date) (unknown[facility]) Result panel 151 (unknown) (no date) (unknown[facility]) Result panel 152 (unknown) (no date) (unknown[facility] Result panel 153 (unknown) (no date) (unknown[facility]) Result panel 154 (unknown) (no date) (unknown[facility] Result panel 155 (unknown) (no date) (unknown[facility] Result panel 156 (unknown) (no date) (unknown[facility] Result panel 157 (unknown) (no date) (unknown[facility] Result panel 158 (unknown) (no date) (unknown[facility] Result panel 159 (unknown) (no date) (unknown[facility]) Result panel 160 (unknown) (no date) (unknown[facility] Result panel 161 (unknown) (no date) (unknown[facility]) Result panel 162 (unknown) (no date) (unknown[facility] Result panel 163 (unknown) (no date) (unknown[facility] Result panel 164 (unknown) (no date) (unknown[facility]) Result panel 165 (unknown) (no date) (unknown[facility]) Result panel 166 (unknown) (no date) (unknown[facility] Result panel 167 (unknown) (no date) (unknown[facility]) Result panel 168 (unknown) (no date) (unknown[facility] Result panel 169 (unknown) (no date) (unknown[facility]) Result panel 170 (unknown) (no date) (unknown[facility] Result panel 171 (unknown) (no date) (unknown[facility] Result panel 172 (unknown) (no date) (unknown[facility]) Result panel 173 (unknown) (no date) (unknown[facility]) Result panel 174 (unknown) (no date) (unknown[facility] Result panel 175 (unknown) (no date) (unknown[facility]) Result panel 176 (unknown) (no date) (unknown[facility] Result panel 177 (unknown) (no date) (unknown[facility]) Result panel 178 (unknown) (no date) (unknown[facility] Result panel 179 (unknown) (no date) (unknown[facility]) Result panel 180 (unknown) (no date) (unknown[facility] Result panel 181 (unknown) (no date) (unknown[facility] Result panel 182 (unknown) (no date) (unknown[facility]) Result panel 183 (unknown) (no date) (unknown[facility] Result panel 184 (unknown) (no date) (unknown[facility] Result panel 185 (unknown) (no date) (unknown[facility] Result panel 186 (unknown) (no date) (unknown[facility] Result panel 187 (unknown) (no date) (unknown[facility] Result panel 188 (unknown) (no date) (unknown[facility] Result panel 189 (unknown) (no date) (unknown[facility] Result panel 190 (unknown) (no date) (unknown[facility] Result panel 191 (unknown) (no date) (unknown[facility] Result panel 192 (unknown) (no date) (unknown[facility]) Result panel 193 (unknown) (no date) (unknown[facility] Result panel 194 (unknown) (no date) (unknown[facility] Result panel 195 (unknown) (no date) (unknown[facility] Result panel 196 (unknown) (no date) (unknown[facility]) Result panel 197 (unknown) (no date) (unknown[facility] Result panel 198 (unknown) (no date) (unknown) [facility]) Result panel 199 (unknown) (no date) (unknown) [facility] Result panel 200 (unknown) (no date) (unknown) [facility] Result panel 201 (unknown) (no date) (unknown) [facility]) Result panel 202 (unknown) (no date) (unknown) [facility]) Result panel 203 (unknown) (no date) (unknown) [facility]) Result panel 204 (unknown) (no date) (unknown) [facility]) Result panel 205 (unknown) (no date) (unknown) [facility]) Result panel 206 (unknown) (no date) (unknown) [facility]) Result panel 207 (unknown) (no date) (unknown) [facility]) Result panel 208 (unknown) (no date) (unknown) [facility]) Result panel 209 (unknown) (no date) (unknown) [facility]) Result panel 210 (unknown) (no date) (unknown) [facility]) Result panel 211 (unknown) (no date) (unknown) [facility]) Result panel 212 (unknown) (no date) (unknown) [facility]) Result panel 213 (unknown) (no date) (unknown) [facility]) Result panel 214 (unknown) (no date) (unknown) [facility] Result panel 215 (unknown) (no (unknown) (unknown) (no value) (units (unk nown) date) unknown) (unknown) (no (unknown) (unknown) [id number] (units (unkno wn) date) unknown) (unknown) (no (unknown) (unknown) 01/14/23 (units (unkno wn) date) unknown) (unknown) (no (unknown) (unknown) [address] [place] [address] (units (unknown) date) unknown) (unknown) (no (unknown) (unknown) ABDOMEN: (units (unkno wn) date) unknown) (unknown) (no (unknown) (unknown) Accession Number: (units (unknown) date) [id number] unknown) (unknown) (no (unknown) (unknown) Accession Number: (units (unknown) date) [id number] unknown) (unknown) (no (unknown) (unknown) Accession Number: (units (unknown) date) [id number] unknown) (unknown) (no (unknown) (unknown) Accession Number: (units (unknown) date) [id number] unknown) (unknown) (no (unknown) (unknown) Accession Number: (units (unknown) date) [id number] unknown) (unknown) (no (unknown) (unknown) Additional 7 mm (units (unknown) date) thick coronal unknown) maximum intensity projection (MIP) reformats (unknown) (no (unknown) (unknown) After the (units (unkn own) date) administration of unknown) intravenous contrast, 5 mm thick sections acquired (unknown) (no (unknown) (unknown) Age/Sex: 53 / M (units (unknown) date) Date of Service: unknown) (unknown) (no (unknown) (unknown) [place], [place] (units ( unknown) date) [id number] unknown) (unknown) (no (unknown) (unknown) Approved by: Marco (units (unknown) date) Urias, D.O. on unknown) 2023 at 10:49 (unknown) (no (unknown) (unknown) Approved by: Marco (units (unknown) date) Urias, D.O. on unknown) 2023 at 11:36 (unknown) (no (unknown) (unknown) Approved by: Marco (units (unknown) date) Urias, D.O. on unknown) 2023 at 11:56 (unknown) (no (unknown) (unknown) Approved by: Marco (units (unknown) date) Urias, D.O. on unknown) 2023 at 9:57 (unknown) (no (unknown) (unknown) Approved by: Marco (units (unknown) date) Urias, D.O. on unknown) 2023 at 9:59 (unknown) (no (unknown) (unknown) Bones and chest (units (unknown) date) wall: No unknown) suspicious bony lesions. Remote left-sided rib (unknown) (no (unknown) (unknown) Bones: No (units (unkn own) date) fractures or unknown) dislocations. Minimal anterolisthesis of C4 on C5 is (unknown) (no (unknown) (unknown) Bones: No (units (unkn own) date) fractures or unknown) dislocations. No suspicious bony lesions. Mild (unknown) (no (unknown) (unknown) Bones: Pelvic (units ( unknown) date) ring and hip unknown) joints appear intact. No vertebral compression (unknown) (no (unknown) (unknown) Brain: No midline (units (unknown) date) shift. No unknown) intracranial masses or hemorrhage. Marr-white (unknown) (no (unknown) (unknown) CHEST: (units (unkno wn) date) unknown) (unknown) (no (unknown) (unknown) COMPARISON: (units (un known) date) [facility], unknown) CT, CT CERVICAL SPINE WO CON, 04/13/2020, 10:42. (unknown) (no (unknown) (unknown) COMPARISON: (units (un known) date) [facility], unknown) CT, CT CHEST ABD PEL W CON, 04/13/2020, 10:42. (unknown) (no (unknown) (unknown) COMPARISON: (units (un known) date) [facility], unknown) CT, CT HEAD/BRAIN WO CON, 04/13/2020, 10:42. (unknown) (no (unknown) (unknown) COMPARISON: None. (units (unknown) date) unknown) (unknown) (no (unknown) (unknown) CSF spaces: Basal (units (unknown) date) cisterns are unknown) patent. No extra-axial fluid collections. (unknown) (no (unknown) (unknown) CT Scan Report (units (unknown) date) unknown) (unknown) (no (unknown) (unknown) Chest wall: No (units (unknown) date) acute rib unknown) fractures. Multiple remote left-sided rib fractures. (unknown) (no (unknown) (unknown) : 1970 (units (unknown) date) Acct:[id number] unknown) (unknown) (no (unknown) (unknown) Dictated by: Marco (units (unknown) date) Urias, D.O. on unknown) 2023 at 10:46 (unknown) (no (unknown) (unknown) Dictated by: Marco (units (unknown) date) Urias, D.O. on unknown) 2023 at 11:31 (unknown) (no (unknown) (unknown) Dictated by: Marco (units (unknown) date) Urias, D.O. on unknown) 2023 at 11:44 (unknown) (no (unknown) (unknown) Dictated by: Marco (units (unknown) date) Urias, D.O. on unknown) 2023 at 9:55 (unknown) (no (unknown) (unknown) Dictated by: Marco (units (unknown) date) Urias, D.O. on unknown) 2023 at 9:58 (unknown) (no (unknown) (unknown) Endplate (units (unkno wn) date) degenerative unknown) changes and facet arthropathy resulting in multiple levels (unknown) (no (unknown) (unknown) FINDINGS: (units (unkn own) date) unknown) (unknown) (no (unknown) (unknown) Gallbladder (units (un known) date) unknown) (unknown) (no (unknown) (unknown) Genitourinary: (units (unknown) date) Bladder wall unknown) thickness is normal. (unknown) (no (unknown) (unknown) IMPRESSION: (units (un known) date) unknown) (unknown) (no (unknown) (unknown) INDICATIONS: ? (units (unknown) date) fall unknown) (unknown) (no (unknown) (unknown) INDICATIONS: (units (u nknown) date) Trauma unknown) (unknown) (no (unknown) (unknown) INDICATIONS: (units (u nknown) date) Trauma, ? fall, unknown) bruising chest/abd, etoh, lac to forehead (unknown) (no (unknown) (unknown) Image quality: (units (unknown) date) Excellent. unknown) (unknown) (no (unknown) (unknown) [facility] (units (unknown) date) unknown) (unknown) (no (unknown) (unknown) Loc: ED (units (unkno wn) date) unknown) (unknown) (no (unknown) (unknown) Lungs and pleura: (units (unknown) date) Lungs are clear. unknown) No pleural effusions or pneumothorax. (unknown) (no (unknown) (unknown) Lungs: No (units (unkn own) date) pulmonary unknown) contusions or lacerations. No acute airspace opacities. (unknown) (no (unknown) (unknown) Mediastinum: (units (u nknown) date) Mediastinal unknown) contours appear normal. Heart size is normal. (unknown) (no (unknown) (unknown) Mediastinum: No (units (unknown) date) mediastinal unknown) hematomas. Heart size is normal. No pericardial (unknown) (no (unknown) (unknown) Miscellaneous: No (units (unknown) date) inguinal hernias unknown) or adenopathy. (unknown) (no (unknown) (unknown) Miscellaneous: No (units (unknown) date) ventral hernias. unknown) (unknown) (no (unknown) (unknown) Moderate to (units (un known) date) severe unknown) degenerative changes of the cervical spine, grossly (unknown) (no (unknown) (unknown) No acute (units (unkno wn) date) fracture. unknown) (unknown) (no (unknown) (unknown) No acute (units (unkno wn) date) intracranial unknown) abnormality. (unknown) (no (unknown) (unknown) No acute osseous (units (unknown) date) abnormality. unknown) Multiple remote left-sided rib fractures along (unknown) (no (unknown) (unknown) No acute osseous (units (unknown) date) abnormality. unknown) (unknown) (no (unknown) (unknown) No acute (units (unkno wn) date) traumatic injury unknown) of the chest, abdomen, or pelvis. (unknown) (no (unknown) (unknown) No evidence of an (units (unknown) date) acute unknown) cardiopulmonary abnormality. (unknown) (no (unknown) (unknown) No (units (unkno wn) date) unknown) (unknown) (no (unknown) (unknown) Nodes and (units (unkn own) date) vessels: No unknown) retroperitoneal or mesenteric adenopathy. Aorta and (unknown) (no (unknown) (unknown) Noncontrast 3 mm (units (unknown) date) thick sections unknown) acquired from the skull base to the T4 level. (unknown) (no (unknown) (unknown) Noncontrast 4.5 (units (unknown) date) mm thick angled unknown) axial sections acquired from the foramen magnum (unknown) (no (unknown) (unknown) Ordering (units (unkno wn) date) Provider: unknown) Bridgett Garrido D.O. (unknown) (no (unknown) (unknown) PELVIS: (units (unkno wn) date) unknown) (unknown) (no (unknown) (unknown) PROCEDURE: CT (units ( unknown) date) CERVICAL SPINE WO unknown) CON (unknown) (no (unknown) (unknown) PROCEDURE: CT (units ( unknown) date) CHEST ABD PEL W unknown) CON (unknown) (no (unknown) (unknown) PROCEDURE: CT (units ( unknown) date) HEAD/BRAIN WO CON unknown) (unknown) (no (unknown) (unknown) PROCEDURE: XR (units ( unknown) date) CHEST 1V unknown) (unknown) (no (unknown) (unknown) PROCEDURE: XR (units ( unknown) date) PELVIS 1-2V unknown) (unknown) (no (unknown) (unknown) Patient: (units (unkno wn) date) Octavio Romo L unknown) MR#: [id number] (unknown) (no (unknown) (unknown) Peritoneum and (units (unknown) date) bowel: No free unknown) fluid or air. Unenhanced bowel loops demonstrate (unknown) (no (unknown) (unknown) Procedure: CT (units ( unknown) date) cervical spine wo unknown) con (unknown) (no (unknown) (unknown) Procedure: CT (units ( unknown) date) chest abd pel w unknown) con (unknown) (no (unknown) (unknown) Procedure: CT (units ( unknown) date) head/brain wo con unknown) (unknown) (no (unknown) (unknown) Procedure: XR (units ( unknown) date) chest 1V unknown) (unknown) (no (unknown) (unknown) Procedure: XR (units ( unknown) date) pelvis 1-2V unknown) (unknown) (no (unknown) (unknown) Remote left L1 (units (unknown) date) and L2 transverse unknown) process fractures. No acute fracture. (unknown) (no (unknown) (unknown) Sagittal (units (unkno wn) date) unknown) (unknown) (no (unknown) (unknown) Signed (units (unkno wn) date) unknown) (unknown) (no (unknown) (unknown) Sinuses: (units (unkno wn) date) Visualized sinuses unknown) and mastoids are clear. (unknown) (no (unknown) (unknown) Skull and face: (units (unknown) date) Calvarium and unknown) visualized facial bones are intact, without (unknown) (no (unknown) (unknown) Small hiatal (units (u nknown) date) hernia. unknown) (unknown) (no (unknown) (unknown) Soft tissue (units (un known) date) injury overlying unknown) the superior right orbit/right frontal bone. (unknown) (no (unknown) (unknown) Soft tissues: (units ( unknown) date) Prevertebral soft unknown) tissues are normal in thickness. No (unknown) (no (unknown) (unknown) Soft tissues: (units ( unknown) date) Visualized bowel unknown) gas pattern is normal. No suspicious soft (unknown) (no (unknown) (unknown) Solid organs: (units ( unknown) date) Liver is normal in unknown) size and enhancement, without lacerations. (unknown) (no (unknown) (unknown) Stable lung (units (un known) date) nodules with the unknown) largest measuring 6 mm. (unknown) (no (unknown) (unknown) Subtle debris (units ( unknown) date) noted within the unknown) posterior aspect of the trachea. Stable lung (unknown) (no (unknown) (unknown) Surgical changes (units (unknown) date) and devices: unknown) Overlying EKG wires. Neurostimulator projects (unknown) (no (unknown) (unknown) TECHNIQUE: 1 (units (u nknown) date) view(s) of the unknown) pelvis acquired. (unknown) (no (unknown) (unknown) TECHNIQUE: One (units (unknown) date) view of the chest unknown) was acquired. (unknown) (no (unknown) (unknown) TECHNIQUE: (units (unk nown) date) unknown) (unknown) (no (unknown) (unknown) There is diffuse (units (unknown) date) intervertebral unknown) disc space loss. Vertebral body heights are (unknown) (no (unknown) (unknown) Thoracic aorta (units (unknown) date) and pulmonary unknown) arteries demonstrate normal size and enhancement. (unknown) (no (unknown) (unknown) Ventricles (units (unk nown) date) unknown) (unknown) (no (unknown) (unknown) XRay Report (units (un known) date) unknown) (unknown) (no (unknown) (unknown) acquired (units (unkno wn) date) unknown) (unknown) (no (unknown) (unknown) acquired. (units (unkn own) date) unknown) (unknown) (no (unknown) (unknown) acute displaced (units (unknown) date) rib fracture. unknown) Overlying soft tissues appear unremarkable. (unknown) (no (unknown) (unknown) adrenal (units (unkno wn) date) unknown) (unknown) (no (unknown) (unknown) and coronal (units (un known) date) reformats were unknown) then constructed. For radiation dose reduction, the (unknown) (no (unknown) (unknown) are normal in (units ( unknown) date) size and shape. unknown) (unknown) (no (unknown) (unknown) automated (units (unkn own) date) unknown) (unknown) (no (unknown) (unknown) bony spinal canal (units (unknown) date) stenosis. Mild the unknown) moderate neural foraminal stenosis is (unknown) (no (unknown) (unknown) calcifications. (units (unknown) date) Neurostimulator unknown) device overlying the left ilium/sacrum. (unknown) (no (unknown) (unknown) caliber. (units (unkno wn) date) unknown) (unknown) (no (unknown) (unknown) cava are normal (units (unknown) date) in size and unknown) enhancement. (unknown) (no (unknown) (unknown) changes of the (units (unknown) date) hips. unknown) (unknown) (no (unknown) (unknown) degenerative (units (u nknown) date) unknown) (unknown) (no (unknown) (unknown) effusion. (units (unkn own) date) unknown) (unknown) (no (unknown) (unknown) exposure control, (units (unknown) date) adjustment of mA unknown) and/or kV according to patient size. (unknown) (no (unknown) (unknown) following (units (unkn own) date) unknown) (unknown) (no (unknown) (unknown) fractures. No (units ( unknown) date) unknown) (unknown) (no (unknown) (unknown) fractures. (units (unk nown) date) unknown) (unknown) (no (unknown) (unknown) from the (units (unkno wn) date) unknown) (unknown) (no (unknown) (unknown) gland is (units (unkno wn) date) unknown) (unknown) (no (unknown) (unknown) hematomas. Both (units (unknown) date) kidneys enhance unknown) normally, without hydronephrosis or (unknown) (no (unknown) (unknown) hematomas. No (units ( unknown) date) apical unknown) pneumothoraces. (unknown) (no (unknown) (unknown) hernia. (units (unkno wn) date) unknown) (unknown) (no (unknown) (unknown) inferior vena (units ( unknown) date) unknown) (unknown) (no (unknown) (unknown) interface is (units (u nknown) date) normal. unknown) (unknown) (no (unknown) (unknown) is unremarkable. (units (unknown) date) Biliary system is unknown) non-dilated. Pancreas enhances normally, (unknown) (no (unknown) (unknown) kidneys (units (unkno wn) date) unknown) (unknown) (no (unknown) (unknown) lacerations. (units (u nknown) date) unknown) (unknown) (no (unknown) (unknown) left scapular and (units (unknown) date) L1-L2 transverse unknown) process fractures. (unknown) (no (unknown) (unknown) lesions. Small (units (unknown) date) hematoma overlying unknown) the inferior right frontal bone/superior (unknown) (no (unknown) (unknown) likely small soft (units (unknown) date) tissue defect. unknown) (unknown) (no (unknown) (unknown) lung apices to (units (unknown) date) the symphysis. 2.5 unknown) mm thick coronal and sagittal reformats were (unknown) (no (unknown) (unknown) maintained. (units (un known) date) unknown) (unknown) (no (unknown) (unknown) matter (units (unkno wn) date) unknown) (unknown) (no (unknown) (unknown) mediastinal or (units (unknown) date) hilar adenopathy. unknown) Esophagus is normal in caliber. Small hiatal (unknown) (no (unknown) (unknown) multiple levels. (units (unknown) date) Visualized unknown) superior ribs are intact. (unknown) (no (unknown) (unknown) nodules with (units (u nknown) date) unknown) (unknown) (no (unknown) (unknown) nodules. (units (unkno wn) date) unknown) (unknown) (no (unknown) (unknown) normal (units (unkno wn) date) unknown) (unknown) (no (unknown) (unknown) noted at (units (unkno wn) date) unknown) (unknown) (no (unknown) (unknown) of mild (units (unkno wn) date) unknown) (unknown) (no (unknown) (unknown) orbit with (units (unk nown) date) unknown) (unknown) (no (unknown) (unknown) overlying (units (unkn own) date) unknown) (unknown) (no (unknown) (unknown) paravertebral (units ( unknown) date) unknown) (unknown) (no (unknown) (unknown) patient (units (unkno wn) date) unknown) (unknown) (no (unknown) (unknown) pneumothorax or (units (unknown) date) hemothorax. unknown) Central and peripheral airways appear normal in (unknown) (no (unknown) (unknown) pulmonary (units (unkn own) date) unknown) (unknown) (no (unknown) (unknown) right middle lobe (units (unknown) date) and left lower unknown) lobe are unchanged. No new or suspicious (unknown) (no (unknown) (unknown) size. (units (unkno wn) date) unknown) (unknown) (no (unknown) (unknown) subcutaneous (units (u nknown) date) emphysema. No unknown) axillary or supraclavicular adenopathy. Thyroid (unknown) (no (unknown) (unknown) suspicious (units (unk nown) date) unknown) (unknown) (no (unknown) (unknown) the largest in (units (unknown) date) the right lower unknown) lobe measuring 6 mm. Additional 3 mm nodules (unknown) (no (unknown) (unknown) the thoracic (units (u nknown) date) spine. unknown) (unknown) (no (unknown) (unknown) through the (units (un known) date) lungs. Optional unknown) 10-minute delayed imaging may be performed from the (unknown) (no (unknown) (unknown) tissue (units (unkno wn) date) unknown) (unknown) (no (unknown) (unknown) to the bladder. (units (unknown) date) For radiation dose unknown) reduction, the following was used: (unknown) (no (unknown) (unknown) to the (units (unkno wn) date) unknown) (unknown) (no (unknown) (unknown) transection. (units (u nknown) date) Spleen is normal unknown) in size and enhancement, without lacerations. No (unknown) (no (unknown) (unknown) unchanged. (units (unk nown) date) unknown) (unknown) (no (unknown) (unknown) unremarkable. (units ( unknown) date) Remote left unknown) scapular fracture. (unknown) (no (unknown) (unknown) vertex, with (units (u nknown) date) coronal and unknown) sagittal reformats. For radiation dose reduction, the (unknown) (no (unknown) (unknown) wall thickness (units (unknown) date) and caliber. unknown) (unknown) (no (unknown) (unknown) was used: (units (unkn own) date) automated exposure unknown) control, adjustment of mA and/or kV according to (unknown) (no (unknown) (unknown) with remote (units (un known) date) unknown) (unknown) (no (unknown) (unknown) within the (units (unk nown) date) unknown) (unknown) (no (unknown) (unknown) without (units (unkno wn) date) unknown) Result panel 216 (unknown) (no (unknown) (unknown) (no value) (units (unk nown) date) unknown) (unknown) (no (unknown) (unknown) (Lidoderm) (units (unk nown) date) unknown) (unknown) (no (unknown) (unknown) (Zofran) vomiting (units (unknown) date) #15 tabs unknown) (unknown) (no (unknown) (unknown) [id number] (units (unkno wn) date) unknown) (unknown) (no (unknown) (unknown) 01/14/23 10:27 (units (unknown) date) unknown) (unknown) (no (unknown) (unknown) 01/14/23 10:29 (units (unknown) date) unknown) (unknown) (no (unknown) (unknown) 1 - 2 tab PO (units (u nknown) date) Q4-6H PRN (Reason: unknown) pain) (unknown) (no (unknown) (unknown) 1 tab PO BEDTIME (units (unknown) date) PRN (Reason: stool unknown) softener) (unknown) (no (unknown) (unknown) 1 tab PO DAILY (units (unknown) date) unknown) (unknown) (no (unknown) (unknown) 1 tab PO Q4H PRN (units (unknown) date) (Reason: Spasms) unknown) (unknown) (no (unknown) (unknown) 1-2 tabs as (units (un known) date) needed for nausea unknown) and vomiting (unknown) (no (unknown) (unknown) 10 mg PO Q6H PRN (units (unknown) date) (Reason: pain) unknown) Qty: 16 0RF (unknown) (no (unknown) (unknown) 10 mg PO TID PRN (units (unknown) date) (Reason: muscle unknown) spasm) Qty: 15 0RF (unknown) (no (unknown) (unknown) 2 cap PO TID (units (u nknown) date) unknown) (unknown) (no (unknown) (unknown) 2 patch TOP DAILY (units (unknown) date) Qty: 15 0RF unknown) (unknown) (no (unknown) (unknown) 4 extremities (units ( unknown) date) moving, cranial unknown) nerves II through XII are intact, GCS is 15 (unknown) (no (unknown) (unknown) 4 mg PO Q6H PRN (units (unknown) date) (Reason: nausea unknown) and vomiting) Qty: 15 0RF (unknown) (no (unknown) (unknown) ABG/GI: (units (unkno wn) date) Nontender, soft, unknown) normal bowel sounds, no distention, no organomegaly, (unknown) (no (unknown) (unknown) AGE 12YR (units (unkno wn) date) unknown) (unknown) (no (unknown) (unknown) Age/Sex: 53 / M (units (unknown) date) unknown) (unknown) (no (unknown) (unknown) Allergies (units (unkn own) date) unknown) (unknown) (no (unknown) (unknown) Allergy/AdvReac (units (unknown) date) Type Severity unknown) Reaction Status Date / Time (unknown) (no (unknown) (unknown) BACK: No CVA (units (u nknown) date) tenderness, no unknown) vertebral tenderness, no step-off's, no crepitus (unknown) (no (unknown) (unknown) BURNING' (units (unkno wn) date) unknown) (unknown) (no (unknown) (unknown) CT cervical spine (units (unknown) date) wo con Stat unknown) (unknown) (no (unknown) (unknown) CT chest abd pel (units (unknown) date) w con Stat unknown) (unknown) (no (unknown) (unknown) CT head/brain wo (units (unknown) date) con Stat unknown) (unknown) (no (unknown) (unknown) CVS: Heart sounds (units (unknown) date) are normal, no unknown) murmur noted, No JVD. 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 unknown) Stat (unknown) (no (unknown) (unknown) Course (units (unkno wn) date) unknown) (unknown) (no (unknown) (unknown) : 1970 (units (unknown) date) Acct:[id number] unknown) (unknown) (no (unknown) (unknown) Date of Service: (units (unknown) date) 01/14/23 unknown) (unknown) (no (unknown) (unknown) Departure (units (unkn own) date) unknown) (unknown) (no (unknown) (unknown) Diphtheria/Tetanu (units (unknown) date) s/Acell Pertussis unknown) (Tet,Diph,Pertuss( Acell),Vac/Pf 0.5 Ml (unknown) (no (unknown) (unknown) Discharge Plan (units (unknown) date) unknown) (unknown) (no (unknown) (unknown) Discontinued (units (u nknown) date) Medications unknown) (unknown) (no (unknown) (unknown) ED Orders (units (unkn own) date) unknown) (unknown) (no (unknown) (unknown) EKG-12 Lead Stat (units (unknown) date) unknown) (unknown) (no (unknown) (unknown) ENT: Patient has (units (unknown) date) superficial unknown) scabbed laceration over his right brow, does not (unknown) (no (unknown) (unknown) ER Physician: (units ( unknown) date) Bridgett Garrido D.O. unknown) (unknown) (no (unknown) (unknown) EXT: Atraumatic (units (unknown) date) other than skin unknown) changes. hips are nontender, no pedal edema, (unknown) (no (unknown) (unknown) EYES: PERRLA, (units ( unknown) date) EOMI unknown) (unknown) (no (unknown) (unknown) Emergency Report (units (unknown) date) unknown) (unknown) (no (unknown) (unknown) Ethanol (ETOH) (units (unknown) date) Stat unknown) (unknown) (no (unknown) (unknown) FEELS LIKE (units (unk nown) date) unknown) (unknown) (no (unknown) (unknown) GEN: C-collar was (units (unknown) date) placed by EMS in unknown) the field but patient would not keep it on. (unknown) (no (unknown) (unknown) General (units (unkno wn) date) unknown) (unknown) (no (unknown) (unknown) HEAD: No evidence (units (unknown) date) of trauma, no unknown) raccoon/Johnson sign. (unknown) (no (unknown) (unknown) HEARING (units (unkno wn) date) unknown) (unknown) (no (unknown) (unknown) HPI - Trauma (units (u nknown) date) unknown) (unknown) (no (unknown) (unknown) HPI narrative: (units (unknown) date) unknown) (unknown) (no (unknown) (unknown) History of (units (unk nown) date) Present Illness unknown) (unknown) (no (unknown) (unknown) Home Medications (units (unknown) date) unknown) (unknown) (no (unknown) (unknown) [facility] (units (unknown) date) [address] [place] [address] Street unknown) [place] [address] (unknown) (no (unknown) (unknown) LOSS AT (units (unkno wn) date) unknown) (unknown) (no (unknown) (unknown) Lactate (Lactic (units (unknown) date) Acid) Stat unknown) (unknown) (no (unknown) (unknown) Limitations: no (units (unknown) date) limitations unknown) (unknown) (no (unknown) (unknown) Lipase Stat (units (un known) date) unknown) (unknown) (no (unknown) (unknown) Lorazepam (units (unkn own) date) (Lorazepam 2 Mg/Ml unknown) Inj) 0.5 mg IV NOW ONE (unknown) (no (unknown) (unknown) MDM - Trauma (units (u nknown) date) unknown) (unknown) (no (unknown) (unknown) MDM Narrative (units ( unknown) date) unknown) (unknown) (no (unknown) (unknown) Medical History (units (unknown) date) (Updated 04/28/20 unknown) @ 00:00 by ) (unknown) (no (unknown) (unknown) Medical decision (units (unknown) date) making narrative: unknown) (unknown) (no (unknown) (unknown) Medication (units (unk nown) date) Instructions unknown) Recorded Confirmed (unknown) (no (unknown) (unknown) Medication (units (unk nown) date) Instructions unknown) Recorded (unknown) (no (unknown) (unknown) Mode of arrival: (units (unknown) date) EMS unknown) (unknown) (no (unknown) (unknown) NECK: Nontender, (units (unknown) date) painless range of unknown) motion, trachea midline (unknown) (no (unknown) (unknown) NEURO: Oriented (units (unknown) date) AOx3, neuro is unknown) grossly intact, sensation and motor is normal all (unknown) (no (unknown) (unknown) Narrative: (units (unk nown) date) unknown) (unknown) (no (unknown) (unknown) No Action (units (unkn own) date) unknown) (unknown) (no (unknown) (unknown) Nontender, (units (unk nown) date) incisions healed. unknown) (unknown) (no (unknown) (unknown) Ordered: (units (unkno wn) date) unknown) (unknown) (no (unknown) (unknown) Orders (units (unkno wn) date) unknown) (unknown) (no (unknown) (unknown) PSYCH: Normal (units ( unknown) date) mood and affect unknown) (unknown) (no (unknown) (unknown) PTT Partial (units (un known) date) Thromboplastin Rodolfo unknown) Stat (unknown) (no (unknown) (unknown) Patient Comments: (units (unknown) date) unknown) (unknown) (no (unknown) (unknown) Patient History (units (unknown) date) unknown) (unknown) (no (unknown) (unknown) Patient appears (units (unknown) date) in moderate unknown) distress. Patient is confused has slightly slurred (unknown) (no (unknown) (unknown) Patient denies (units (unknown) date) pain, no shortness unknown) of breath, no GI or urinary symptoms. He is (unknown) (no (unknown) (unknown) Patient states he (units (unknown) date) does not know who unknown) he is aware he is. He is able to give his (unknown) (no (unknown) (unknown) Patient: (units (unkno wn) date) Octavio Romo unknown) MR#: [id number] (unknown) (no (unknown) (unknown) Positive Nexus (units (unknown) date) criteria, there is unknown) no midline line tenderness, distracting (unknown) (no (unknown) (unknown) Prescriptions: (units (unknown) date) unknown) (unknown) (no (unknown) (unknown) Previous Rx's (units ( unknown) date) unknown) (unknown) (no (unknown) (unknown) Prothrombin Time (units (unknown) date) INR Stat unknown) (unknown) (no (unknown) (unknown) RESP: Chest is (units (unknown) date) nontender and has unknown) symmetric movement, no ecchymosis, breath (unknown) (no (unknown) (unknown) Related Data (units (u nknown) date) unknown) (unknown) (no (unknown) (unknown) Review of Systems (units (unknown) date) unknown) (unknown) (no (unknown) (unknown) Rx Instructions: (units (unknown) date) unknown) (unknown) (no (unknown) (unknown) SKIN: Patient has (units (unknown) date) a small 2 cm burn unknown) on his right forearm that has blistered and (unknown) (no (unknown) (unknown) Signed By: (units (unk nown) date) unknown) (unknown) (no (unknown) (unknown) Smoking Status: (units (unknown) date) Never smoker unknown) (unknown) (no (unknown) (unknown) Social History (units (unknown) date) (Reviewed 04/13/20 unknown) @ 20:09 by Derick Crandall MD) (unknown) (no (unknown) (unknown) Source: patient, (units (unknown) date) EMS, RN notes unknown) reviewed and old records reviewed (unknown) (no (unknown) (unknown) Stated Complaint: (units (unknown) date) Trauma unknown) (unknown) (no (unknown) (unknown) Stop: 01/14/23 (units (unknown) date) 10:27 unknown) (unknown) (no (unknown) (unknown) Stop: 01/14/23 (units (unknown) date) 10:29 unknown) (unknown) (no (unknown) (unknown) Substance Use (units ( unknown) date) Type: does not use unknown) (unknown) (no (unknown) (unknown) Syringe) 0.5 ml (units (unknown) date) IM .ONCE ONE unknown) (unknown) (no (unknown) (unknown) TK 1 TO 2 TS O Q (units (unknown) date) 4 TO 6 HOURS PRF unknown) PAIN (unknown) (no (unknown) (unknown) They also note (units (unknown) date) that they were unknown) called out for a wellness check yesterday they (unknown) (no (unknown) (unknown) This is a (units (unkno wn) date) 53-year-old male unknown) who appears intoxicated, he does have scabbing with a (unknown) (no (unknown) (unknown) This is a (units (unkn own) date) 53-year-old male unknown) with known history of alcohol abuse, insulin (unknown) (no (unknown) (unknown) Time Seen by (units (u nknown) date) Provider: 01/14/23 unknown) 10:26 (unknown) (no (unknown) (unknown) Type and Screen (units (unknown) date) Stat unknown) (unknown) (no (unknown) (unknown) Urine Drug (units (unk nown) date) Screen, Rapid Stat unknown) (unknown) (no (unknown) (unknown) WAS (units (unkno wn) date) unknown) (unknown) (no (unknown) (unknown) XR chest 1V Stat (units (unknown) date) unknown) (unknown) (no (unknown) (unknown) XR pelvis 1-2V (units (unknown) date) Stat unknown) (unknown) (no (unknown) (unknown) [From BETADINE] (units (unknown) date) FEELS LIKE unknown) (unknown) (no (unknown) (unknown) [SHELLFISH (units (unk nown) date) DERIVED] LIKE IT unknown) (unknown) (no (unknown) (unknown) a small burn on (units (unknown) date) his right forearm unknown) and he has bruising his girlfriend told medics (unknown) (no (unknown) (unknown) alcohol intake (units (unknown) date) frequency: 0-2 unknown) drinks per day (unknown) (no (unknown) (unknown) and when asked he (units (unknown) date) states he does unknown) want to kill himself when asked why he does not (unknown) (no (unknown) (unknown) answer. When (units (u nknown) date) asked if he has a unknown) plan he does not give one. Medics a girlfriend (unknown) (no (unknown) (unknown) anything amiss in (units (unknown) date) the house but he unknown) had been found on the ground in the bathroom. (unknown) (no (unknown) (unknown) appears older (units ( unknown) date) with healing skin unknown) underneath, warm and dry, no crepitus and (unknown) (no (unknown) (unknown) arrived. (units (unkno wn) date) unknown) (unknown) (no (unknown) (unknown) chest and abdomen (units (unknown) date) although it unknown) appears little bit older, and he has a burn on his (unknown) (no (unknown) (unknown) chest, right (units (u nknown) date) upper abdomen and unknown) right lower abdomen. (unknown) (no (unknown) (unknown) cyclobenzaprine (units (unknown) date) 10 mg tablet 10 mg unknown) PO TID PRN muscle spasm #15 04/13/20 (unknown) (no (unknown) (unknown) cyclobenzaprine (units (unknown) date) 10 mg tablet unknown) (unknown) (no (unknown) (unknown) dependent (units (unkn own) date) diabetes and unknown) chronic pain with a pain pump in his left abdomen. (unknown) (no (unknown) (unknown) do his injections (units (unknown) date) which he states unknown) are insulin. He states he has a pain pump in (unknown) (no (unknown) (unknown) drinks at least a (units (unknown) date) 5th daily, he unknown) denies tobacco or illicit. He states he did not (unknown) (no (unknown) (unknown) found blood in a (units (unknown) date) different location unknown) but the patient was not present at that (unknown) (no (unknown) (unknown) gabapentin 300 mg (units (unknown) date) capsule 2 cap PO unknown) TID 07/27/18 07/27/18 (unknown) (no (unknown) (unknown) gabapentin 300 mg (units (unknown) date) capsule unknown) (unknown) (no (unknown) (unknown) gape, trachea is (units (unknown) date) midline, TM's are unknown) normal no hemotypanum, Nares are clear, no (unknown) (no (unknown) (unknown) ground there was (units (unknown) date) reportedly some unknown) glass at the scene and the medics state that (unknown) (no (unknown) (unknown) his belly. He did (units (unknown) date) make statements unknown) that he wanted to kill himself to the medics (unknown) (no (unknown) (unknown) injury, altered (units (unknown) date) mental status, unknown) neuro deficit, positive for recent EtOH. (unknown) (no (unknown) (unknown) last saw the (units (u nknown) date) patient on unknown) she noted that he bought a bottle of hard (unknown) (no (unknown) (unknown) leave on most (units ( unknown) date) painful area for unknown) up to 12 hrs (unknown) (no (unknown) (unknown) levothyroxine 100 (units (unknown) date) mcg tablet 1 tab unknown) PO DAILY 07/27/18 07/27/18 (unknown) (no (unknown) (unknown) levothyroxine 100 (units (unknown) date) mcg tablet unknown) (unknown) (no (unknown) (unknown) lidocaine 5 % (units ( unknown) date) topical patch 2 unknown) patch topical DAILY #15 ea 04/13/20 (unknown) (no (unknown) (unknown) lidocaine (units (unkn own) date) [Lidoderm] 5 % unknown) adhesive patch,medicated (unknown) (no (unknown) (unknown) liquor at that (units (unknown) date) time and there was unknown) only about a few mL left today when EMS (unknown) (no (unknown) (unknown) magnesium 1 tab (units (unknown) date) PO BEDTIME PRN unknown) stool softener 07/27/18 07/27/18 (unknown) (no (unknown) (unknown) magnesium 400 mg (units (unknown) date) tablet unknown) (unknown) (no (unknown) (unknown) methocarbamol 500 (units (unknown) date) mg tablet 1 tab PO unknown) Q4H PRN Spasms 07/27/18 07/27/18 (unknown) (no (unknown) (unknown) methocarbamol 500 (units (unknown) date) mg tablet unknown) (unknown) (no (unknown) (unknown) moving all his (units (unknown) date) extremities well. unknown) Is conversant but confused. Patient states he (unknown) (no (unknown) (unknown) name when he is (units (unknown) date) registered. unknown) Patient is confused but follows commands he is (unknown) (no (unknown) (unknown) normal color and (units (unknown) date) temperature, unknown) normal range of motion of extremities with normal (unknown) (no (unknown) (unknown) obtained is (units (un known) date) unclear what unknown) exactly occurred. Patient was called out as a modified (unknown) (no (unknown) (unknown) occlusion, No (units ( unknown) date) bony tenderness unknown) (unknown) (no (unknown) (unknown) ondansetron HCl 4 (units (unknown) date) mg tablet 4 mg PO unknown) Q6H PRN nausea and 04/13/20 (unknown) (no (unknown) (unknown) ondansetron HCl (units (unknown) date) [Zofran] 4 mg unknown) tablet (unknown) (no (unknown) (unknown) oxycodone 10 mg (units (unknown) date) tablet 10 mg PO unknown) Q6H PRN pain #16 tabs 04/13/20 (unknown) (no (unknown) (unknown) oxycodone 10 mg (units (unknown) date) tablet unknown) (unknown) (no (unknown) (unknown) oxycodone 5 mg (units (unknown) date) tablet 1 - 2 tab unknown) PO Q4-6H PRN pain 07/27/18 07/27/18 (unknown) (no (unknown) (unknown) oxycodone 5 mg (units (unknown) date) tablet unknown) (unknown) (no (unknown) (unknown) pelvic rock is (units (unknown) date) negative, patient unknown) has device in the left lateral abdomen. (unknown) (no (unknown) (unknown) penicillin G (units (u nknown) date) [PENICILLIN G] unknown) Allergy Unknown LEFT EAR Verified 07/27/18 10:10 (unknown) (no (unknown) (unknown) povidone-iodine (units (unknown) date) Allergy Unknown unknown) 'SKIN Verified 07/27/18 10:10 (unknown) (no (unknown) (unknown) redirectable (units (u nknown) date) although he keeps unknown) saying he wants to get out of the bed. He has (unknown) (no (unknown) (unknown) right forearm (units ( unknown) date) that also appears unknown) little bit older. Patient was found on the (unknown) (no (unknown) (unknown) septal hematoma, (units (unknown) date) no dental or oral unknown) injury, airway is normal and with normal (unknown) (no (unknown) (unknown) shellfish derived (units (unknown) date) Allergy Unknown unknown) 'SKIN FELT Verified 07/27/18 10:10 (unknown) (no (unknown) (unknown) soap [From (units (unk nown) date) BETADINE] Allergy unknown) Unknown 'SKIN Verified 07/27/18 10:10 (unknown) (no (unknown) (unknown) some blood at the (units (unknown) date) scene in a unknown) different location. Patient had labs, imaging (unknown) (no (unknown) (unknown) some broken (units (un known) date) glass, medics unknown) state the glass was cleaned up they did not see (unknown) (no (unknown) (unknown) sounds are normal (units (unknown) date) no crackles, unknown) wheezes or rales (unknown) (no (unknown) (unknown) speech appears (units (unknown) date) intoxicated but is unknown) conversant. (unknown) (no (unknown) (unknown) superficial lack (units (unknown) date) of the right unknown) forehead, he has some bruising of his anterior (unknown) (no (unknown) (unknown) tabs (units (unkno wn) date) unknown) (unknown) (no (unknown) (unknown) tendon exam, 2+ (units (unknown) date) pulses in all four unknown) extremities (unknown) (no (unknown) (unknown) that is bruising (units (unknown) date) on his left unknown) abdomen is from injections but onto his chest and (unknown) (no (unknown) (unknown) they were there (units (unknown) date) the day before unknown) patient was not present at home but there was (unknown) (no (unknown) (unknown) time. Patient (units ( unknown) date) does not recall unknown) what trauma occurred. The somewhat repetitive. (unknown) (no (unknown) (unknown) trauma. (units (unkno wn) date) unknown) (unknown) (no (unknown) (unknown) upper abdomen she (units (unknown) date) is unsure. Patient unknown) was found at home in the bathroom with (unknown) (no (unknown) (unknown) what appears to be (units (unknown) date) scabbed unknown) superficial laceration over his right forehead he has (unknown) (no (unknown) (unknown) without (units (unkno wn) date) decubitus. Patient unknown) has ecchymosis that is about 4 cm on his anterior Result panel 217 (unknown) (no date) (unknown) (unknown) 1.4 % (unkn own) (unknown) (no date) (unknown) (unknown) 100 /ul (unkn own) (unknown) (no date) (unknown) (unknown) 100 /ul (unkn own) (unknown) (no date) (unknown) (unknown) 12.3 g/dl (unkn own) (unknown) (no date) (unknown) (unknown) 13.2 % (unkn own) (unknown) (no date) (unknown) (unknown) 14.9 % (unkn own) (unknown) (no date) (unknown) (unknown) 1700 /ul (unkn own) (unknown) (no date) (unknown) (unknown) 1800 /ul (unkn own) (unknown) (no date) (unknown) (unknown) 2.2 % (unkn own) (unknown) (no date) (unknown) (unknown) 296 x10 3/ul (unkn own) (unknown) (no date) (unknown) (unknown) 3.80 x10 6/ul (unkn own) (unknown) (no date) (unknown) (unknown) 32.5 pg (unkn own) (unknown) (no date) (unknown) (unknown) 33.5 % (unkn own) (unknown) (no date) (unknown) (unknown) 36.9 % (unkn own) (unknown) (no date) (unknown) (unknown) 39.1 % (unkn own) (unknown) (no date) (unknown) (unknown) 4.3 x10 3/ul (unkn own) (unknown) (no date) (unknown) (unknown) 42.4 % (unkn own) (unknown) (no date) (unknown) (unknown) 600 /ul (unkn own) (unknown) (no date) (unknown) (unknown) 97.1 fl (unkn own) Result panel 218 (unknown) (no date) (unknown) (unknown) 1.0 (units unknown) (unknown) (unknown) (no date) (unknown) (unknown) 11.2 seconds (unkn own) (unknown) (no date) (unknown) (unknown) 34 seconds (unkn own) (unknown) (no date) (unknown) (unknown) 34 seconds (unkn own) Result panel 219 (unknown) (no date) (unknown) (unknown) > 60 ml/min (unkn own) (unknown) (no date) (unknown) (unknown) > 60 ml/min (unkn own) (unknown) (no date) (unknown) (unknown) 0.4 mg/dl (unkn own) (unknown) (no date) (unknown) (unknown) 0.42 mg/dl (unkn own) (unknown) (no date) (unknown) (unknown) 1.3 (units unknown) (unknown) (unknown) (no date) (unknown) (unknown) 100 mmol/l (unkn own) (unknown) (no date) (unknown) (unknown) 109 u/l (unkn own) (unknown) (no date) (unknown) (unknown) 140 mmol/l (unkn own) (unknown) (no date) (unknown) (unknown) 146 u/l (unkn own) (unknown) (no date) (unknown) (unknown) 19.0 (units unknown) (unknown) (unknown) (no date) (unknown) (unknown) 254 mg/dl (unkn own) (unknown) (no date) (unknown) (unknown) 254 mg/dl (unkn own) (unknown) (no date) (unknown) (unknown) 3.2 g/dl (unkn own) (unknown) (no date) (unknown) (unknown) 3.9 mmol/l (unkn own) (unknown) (no date) (unknown) (unknown) 30 mmol/l (unkn own) (unknown) (no date) (unknown) (unknown) 4.0 g/dl (unkn own) (unknown) (no date) (unknown) (unknown) 7.2 g/dl (unkn own) (unknown) (no date) (unknown) (unknown) 8 mg/dl (unkn own) (unknown) (no date) (unknown) (unknown) 8.5 mg/dl (unkn own) (unknown) (no date) (unknown) (unknown) 87 iu/l (unkn own) (unknown) (no date) (unknown) (unknown) 88 iu/l (unkn own) Result panel 220 (unknown) (no date) (unknown) (unknown) > 60 ml/min (unkn own) (unknown) (no date) (unknown) (unknown) > 60 ml/min (unkn own) (unknown) (no date) (unknown) (unknown) 0.4 mg/dl (unkn own) (unknown) (no date) (unknown) (unknown) 0.42 mg/dl (unkn own) (unknown) (no date) (unknown) (unknown) 1.3 (units unknown) (unknown) (unknown) (no date) (unknown) (unknown) 100 mmol/l (unkn own) (unknown) (no date) (unknown) (unknown) 109 u/l (unkn own) (unknown) (no date) (unknown) (unknown) 140 mmol/l (unkn own) (unknown) (no date) (unknown) (unknown) 146 u/l (unkn own) (unknown) (no date) (unknown) (unknown) 19.0 (units unknown) (unknown) (unknown) (no date) (unknown) (unknown) 254 mg/dl (unkn own) (unknown) (no date) (unknown) (unknown) 254 mg/dl (unkn own) (unknown) (no date) (unknown) (unknown) 3.2 g/dl (unkn own) (unknown) (no date) (unknown) (unknown) 3.9 mmol/l (unkn own) (unknown) (no date) (unknown) (unknown) 30 mmol/l (unkn own) (unknown) (no date) (unknown) (unknown) 308 mg/dl (unkn own) (unknown) (no date) (unknown) (unknown) 308 mg/dl (unkn own) (unknown) (no date) (unknown) (unknown) 4.0 g/dl (unkn own) (unknown) (no date) (unknown) (unknown) 7.2 g/dl (unkn own) (unknown) (no date) (unknown) (unknown) 8 mg/dl (unkn own) (unknown) (no date) (unknown) (unknown) 8.5 mg/dl (unkn own) (unknown) (no date) (unknown) (unknown) 87 iu/l (unkn own) (unknown) (no date) (unknown) (unknown) 88 iu/l (unkn own) Result panel 221 (unknown) (no (unknown) (unknown) (no value) (units (unk nown) date) unknown) (unknown) (no (unknown) (unknown) (Lidoderm) (units (unk nown) date) unknown) (unknown) (no (unknown) (unknown) (Zofran) vomiting (units (unknown) date) #15 tabs unknown) (unknown) (no (unknown) (unknown) [id number] (units (unkno wn) date) unknown) (unknown) (no (unknown) (unknown) 01/14/23 01/14/23 (units (unknown) date) 01/14/23 Range/Units unknown) (unknown) (no (unknown) (unknown) 01/14/23 10:27 (units (unknown) date) unknown) (unknown) (no (unknown) (unknown) 01/14/23 10:29 (units (unknown) date) unknown) (unknown) (no (unknown) (unknown) 01/14/23 10:35 (units (unknown) date) unknown) (unknown) (no (unknown) (unknown) 01/14/23 10:45 (units (unknown) date) unknown) (unknown) (no (unknown) (unknown) 01/14/23 11:17 (units (unknown) date) unknown) (unknown) (no (unknown) (unknown) 01/14/23 (units (unkno wn) date) unknown) (unknown) (no (unknown) (unknown) 1 - 2 tab PO Q4-6H (units (unknown) date) PRN (Reason: pain) unknown) (unknown) (no (unknown) (unknown) 1 tab PO BEDTIME (units (unknown) date) PRN (Reason: stool unknown) softener) (unknown) (no (unknown) (unknown) 1 tab PO DAILY (units (unknown) date) unknown) (unknown) (no (unknown) (unknown) 1 tab PO Q4H PRN (units (unknown) date) (Reason: Spasms) unknown) (unknown) (no (unknown) (unknown) 1-2 tabs as needed (units (unknown) date) for nausea and unknown) vomiting (unknown) (no (unknown) (unknown) 10 mg PO Q6H PRN (units (unknown) date) (Reason: pain) Qty: unknown) 16 0RF (unknown) (no (unknown) (unknown) 10 mg PO TID PRN (units (unknown) date) (Reason: muscle unknown) spasm) Qty: 15 0RF (unknown) (no (unknown) (unknown) 10:22 01/14/23 (units (unknown) date) unknown) (unknown) (no (unknown) (unknown) 10:25 01/14/23 (units (unknown) date) unknown) (unknown) (no (unknown) (unknown) 10:30 (units (unkno wn) date) unknown) (unknown) (no (unknown) (unknown) 10:32 01/14/23 (units (unknown) date) unknown) (unknown) (no (unknown) (unknown) 10:45 10:45 10:45 (units (unknown) date) unknown) (unknown) (no (unknown) (unknown) 11:00 (units (unkno wn) date) unknown) (unknown) (no (unknown) (unknown) 2 cap PO TID (units (u nknown) date) unknown) (unknown) (no (unknown) (unknown) 2 patch TOP DAILY (units (unknown) date) Qty: 15 0RF unknown) (unknown) (no (unknown) (unknown) 2016 white count of (unit s (unknown) date) 4.3 normal platelets unknown) at 296. Coags are negative, renal (unknown) (no (unknown) (unknown) 4 extremities (units ( unknown) date) moving, cranial unknown) nerves II through XII are intact, GCS is 15 (unknown) (no (unknown) (unknown) 4 mg PO Q6H PRN (units (unknown) date) (Reason: nausea and unknown) vomiting) Qty: 15 0RF (unknown) (no (unknown) (unknown) ABG/GI: Nontender, (units (unknown) date) soft, normal bowel unknown) sounds, no distention, no organomegaly, (unknown) (no (unknown) (unknown) AGE 12YR (units (unkno wn) date) unknown) (unknown) (no (unknown) (unknown) ALT 88 H (<50) IU/L (unit s (unknown) date) unknown) (unknown) (no (unknown) (unknown) APTT 34 (26-36) (units (unknown) date) SECONDS unknown) (unknown) (no (unknown) (unknown) AST 87 H (17-59) (units (unknown) date) IU/L unknown) (unknown) (no (unknown) (unknown) Age/Sex: 53 / M (units (unknown) date) unknown) (unknown) (no (unknown) (unknown) Albumin 4.0 (units (un known) date) (3.5-5.0) g/dL unknown) (unknown) (no (unknown) (unknown) Albumin/Globulin (units (unknown) date) Ratio 1.3 (1.0-2.8) unknown) (unknown) (no (unknown) (unknown) Alkaline (units (unkno wn) date) Phosphatase 146 H unknown) (38-126) U/L (unknown) (no (unknown) (unknown) Allergies (units (unkn own) date) unknown) (unknown) (no (unknown) (unknown) Allergy/AdvReac (units (unknown) date) Type Severity unknown) Reaction Status Date / Time (unknown) (no (unknown) (unknown) Attestation: I (units (unknown) date) personally reviewed unknown) and interpreted this ECG as follows: (unknown) (no (unknown) (unknown) BACK: No CVA (units (u nknown) date) tenderness, no unknown) vertebral tenderness, no step-off's, no crepitus (unknown) (no (unknown) (unknown) BUN 8 L (9-20) (units (unknown) date) mg/dL unknown) (unknown) (no (unknown) (unknown) BUN/Creatinine (units (unknown) date) Ratio 19.0 (6-22) unknown) (unknown) (no (unknown) (unknown) BURNING' (units (unkno wn) date) unknown) (unknown) (no (unknown) (unknown) Baso # (Auto) 100 (units (unknown) date) (0-100) /uL unknown) (unknown) (no (unknown) (unknown) Baso % (Auto) 1.4 (units (unknown) date) (0-2) % unknown) (unknown) (no (unknown) (unknown) Benadryl and (units (u nknown) date) Solu-Medrol as he unknown) was felt stable. This shows (unknown) (no (unknown) (unknown) Blood Pressure (units (unknown) date) 133/92 H unknown) (unknown) (no (unknown) (unknown) Blood Pressure (units (unknown) date) 149/94 H 01/14/23 unknown) 10:22 (unknown) (no (unknown) (unknown) Blood Pressure (units (unknown) date) 149/94 H unknown) (unknown) (no (unknown) (unknown) CT cervical spine (units (unknown) date) wo con Stat unknown) (unknown) (no (unknown) (unknown) CT chest abd pel w (units (unknown) date) con Stat unknown) (unknown) (no (unknown) (unknown) CT head/brain wo (units (unknown) date) con Stat unknown) (unknown) (no (unknown) (unknown) [facility]: Heart sounds (units (unknown) date) are normal, no unknown) murmur noted, No JVD. (unknown) (no (unknown) (unknown) Calcium 8.5 (units (un known) date) (8.4-10.2) mg/dL unknown) (unknown) (no (unknown) (unknown) Carbon Dioxide 30 (units (unknown) date) (22-32) mmol/L unknown) (unknown) (no (unknown) (unknown) Chief Complaint: (units (unknown) date) Trauma unknown) (unknown) (no (unknown) (unknown) Chloride 100 (units (u nknown) date) (98-107) mmol/L unknown) (unknown) (no (unknown) (unknown) Chronic low back (units (unknown) date) pain unknown) (unknown) (no (unknown) (unknown) Complete Blood (units (unknown) date) Count AUTO DIFF Stat unknown) (unknown) (no (unknown) (unknown) Comprehensive (units ( unknown) date) Metabolic Panel Stat unknown) (unknown) (no (unknown) (unknown) Consult to [facility] [place] - (units (unknown) date) 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) (unknown) (no (unknown) (unknown) Course (units (unkno wn) date) unknown) (unknown) (no (unknown) (unknown) Creatinine 0.42 L (units (unknown) date) (0.66-1.25) mg/dL unknown) (unknown) (no (unknown) (unknown) : 1970 (units (unknown) date) Acct:[id number] unknown) (unknown) (no (unknown) (unknown) Date of Service: (units (unknown) date) 01/14/23 unknown) (unknown) (no (unknown) (unknown) Departure (units (unkn own) date) unknown) (unknown) (no (unknown) (unknown) Diphenhydramine HCl (unit s (unknown) date) (Diphenhydramine 50 unknown) Mg/Ml Vial) 50 mg IV NOW ONE (unknown) (no (unknown) (unknown) Diphtheria/Tetanus/ (unit s (unknown) date) Acell Pertussis unknown) (Tet,Diph,Pertuss(Ac ell),Vac/Pf 0.5 Ml (unknown) (no (unknown) (unknown) Discharge Plan (units (unknown) date) unknown) (unknown) (no (unknown) (unknown) Discontinued (units (u nknown) date) Medications unknown) (unknown) (no (unknown) (unknown) Documented By: AT (units (unknown) date) unknown) (unknown) (no (unknown) (unknown) ECG Data (units (unkno wn) date) unknown) (unknown) (no (unknown) (unknown) ED Orders (units (unkn own) date) unknown) (unknown) (no (unknown) (unknown) EKG-12 Lead Stat (units (unknown) date) unknown) (unknown) (no (unknown) (unknown) ENT: Patient has (units (unknown) date) superficial scabbed unknown) laceration over his right brow, does not (unknown) (no (unknown) (unknown) ER Physician: (units ( unknown) date) Bridgett Garrido D.O. unknown) (unknown) (no (unknown) (unknown) EXT: Atraumatic (units (unknown) date) other than skin unknown) changes. hips are nontender, no pedal edema, (unknown) (no (unknown) (unknown) EYES: PERRLA, EOMI (units (unknown) date) unknown) (unknown) (no (unknown) (unknown) Emergency Report (units (unknown) date) unknown) (unknown) (no (unknown) (unknown) Eos # (Auto) 100 (units (unknown) date) (0-450) /uL unknown) (unknown) (no (unknown) (unknown) Eos % (Auto) 2.2 (units (unknown) date) (2-4) % unknown) (unknown) (no (unknown) (unknown) Estimated GFR > 60 (units (unknown) date) (>60) mL/min unknown) (unknown) (no (unknown) (unknown) Ethanol (ETOH) Stat (unit s (unknown) date) unknown) (unknown) (no (unknown) (unknown) Ethyl Alcohol 308 H (unit s (unknown) date) ( - 10) mg/dL unknown) (unknown) (no (unknown) (unknown) Exam (units (unkno wn) date) unknown) (unknown) (no (unknown) (unknown) FEELS LIKE (units (unk nown) date) unknown) (unknown) (no (unknown) (unknown) GEN: C-collar was (units (unknown) date) placed by EMS in the unknown) field but patient would not keep it on. (unknown) (no (unknown) (unknown) General (units (unkno wn) date) unknown) (unknown) (no (unknown) (unknown) Globulin 3.2 (units (u nknown) date) (1.7-4.1) g/dL unknown) (unknown) (no (unknown) (unknown) Glucose 254 H (units ( unknown) date) (70-100) mg/dL unknown) (unknown) (no (unknown) (unknown) Glucose POC 268 (units (unknown) date) unknown) (unknown) (no (unknown) (unknown) HEAD: No evidence (units (unknown) date) of trauma, no unknown) raccoon/Johnson sign. (unknown) (no (unknown) (unknown) HEARING (units (unkno wn) date) unknown) (unknown) (no (unknown) (unknown) HPI - Trauma (units (u nknown) date) unknown) (unknown) (no (unknown) (unknown) HPI narrative: (units (unknown) date) unknown) (unknown) (no (unknown) (unknown) Hct 36.9 L (41-53) (units (unknown) date) % unknown) (unknown) (no (unknown) (unknown) Hgb 12.3 L (units (unk nown) date) (13.5-17.5) g/dL unknown) (unknown) (no (unknown) (unknown) History of Present (units (unknown) date) Illness unknown) (unknown) (no (unknown) (unknown) Home Medications (units (unknown) date) unknown) (unknown) (no (unknown) (unknown) INR 1.0 (0.9-1.3) (units (unknown) date) unknown) (unknown) (no (unknown) (unknown) Initial Vital Signs (unit s (unknown) date) unknown) (unknown) (no (unknown) (unknown) Initial Vital (units ( unknown) date) Signs: unknown) (unknown) (no (unknown) (unknown) Interpretation: (units (unknown) date) unknown) (unknown) (no (unknown) (unknown) [facility] (units (unknown) date) [address] unknown) [place] [address] (unknown) (no (unknown) (unknown) LOSS AT (units (unkno wn) date) unknown) (unknown) (no (unknown) (unknown) Lab Data (units (unkno wn) date) unknown) (unknown) (no (unknown) (unknown) Lab Results (units (un known) date) unknown) (unknown) (no (unknown) (unknown) Labs show an ETOH (units (unknown) date) of 308, patient has unknown) a hemoglobin of 12 baseline compared to (unknown) (no (unknown) (unknown) Labs: (units (unkno wn) date) unknown) (unknown) (no (unknown) (unknown) Lactate (Lactic (units (unknown) date) Acid) Stat unknown) (unknown) (no (unknown) (unknown) Last Admin: (units (un known) date) 01/14/23 10:42 Dose: unknown) 0.5 mg (unknown) (no (unknown) (unknown) Last Admin: (units (un known) date) 01/14/23 11:11 Dose: unknown) 50 mg (unknown) (no (unknown) (unknown) Last Admin: (units (un known) date) 01/14/23 11:12 Dose: unknown) 125 mg (unknown) (no (unknown) (unknown) Limitations: no (units (unknown) date) limitations unknown) (unknown) (no (unknown) (unknown) Lipase 109 (23-300) (unit s (unknown) date) U/L unknown) (unknown) (no (unknown) (unknown) Lipase Stat (units (un known) date) unknown) (unknown) (no (unknown) (unknown) Lorazepam (units (unkn own) date) (Lorazepam 2 Mg/Ml unknown) Inj) 0.5 mg IV NOW ONE (unknown) (no (unknown) (unknown) Lymph # (Auto) 1700 (unit s (unknown) date) (3604-8155) /uL unknown) (unknown) (no (unknown) (unknown) Lymph % (Auto) 39.1 (unit s (unknown) date) (25-40) % unknown) (unknown) (no (unknown) (unknown) MCH 32.5 (26-34) PG (unit s (unknown) date) unknown) (unknown) (no (unknown) (unknown) MCHC 33.5 (30-36) % (unit s (unknown) date) unknown) (unknown) (no (unknown) (unknown) MCV 97.1 (80-100) (units (unknown) date) fL unknown) (unknown) (no (unknown) (unknown) MDM - Trauma (units (u nknown) date) unknown) (unknown) (no (unknown) (unknown) MDM Narrative (units ( unknown) date) unknown) (unknown) (no (unknown) (unknown) Medical History (units (unknown) date) (Updated 04/28/20 @ unknown) 00:00 by ) (unknown) (no (unknown) (unknown) Medical decision (units (unknown) date) making narrative: unknown) (unknown) (no (unknown) (unknown) Medication (units (unk nown) date) Instructions unknown) Recorded Confirmed (unknown) (no (unknown) (unknown) Medication (units (unk nown) date) Instructions unknown) Recorded (unknown) (no (unknown) (unknown) Methylprednisolone (units (unknown) date) (Methylprednisolone unknown) 125 Mg/2 Ml Vial) 125 mg IV NOW ONE (unknown) (no (unknown) (unknown) Mode of arrival: (units (unknown) date) EMS unknown) (unknown) (no (unknown) (unknown) Pender # (Auto) 600 (units (unknown) date) (0-900) /uL unknown) (unknown) (no (unknown) (unknown) Pender % (Auto) 14.9 (units (unknown) date) H (3-14) % unknown) (unknown) (no (unknown) (unknown) NECK: Nontender, (units (unknown) date) painless range of unknown) motion, trachea midline (unknown) (no (unknown) (unknown) NEURO: Oriented (units (unknown) date) AOx3, neuro is unknown) grossly intact, sensation and motor is normal all (unknown) (no (unknown) (unknown) Narrative: (units (unk nown) date) unknown) (unknown) (no (unknown) (unknown) Neut # (Auto) 1800 (units (unknown) date) (3408-7403) /uL unknown) (unknown) (no (unknown) (unknown) Neut % (Auto) 42.4 (units (unknown) date) L (50-75) % unknown) (unknown) (no (unknown) (unknown) No Action (units (unkn own) date) unknown) (unknown) (no (unknown) (unknown) Nontender, (units (unk nown) date) incisions healed. unknown) (unknown) (no (unknown) (unknown) Ordered: (units (unkno wn) date) unknown) (unknown) (no (unknown) (unknown) Orders (units (unkno wn) date) unknown) (unknown) (no (unknown) (unknown) Oxygen Delivery (units (unknown) date) Method Room Air unknown) 01/14/23 10:22 (unknown) (no (unknown) (unknown) Oxygen Delivery (units (unknown) date) Method Room Air unknown) (unknown) (no (unknown) (unknown) Oxygen Delivery (units (unknown) date) Method unknown) (unknown) (no (unknown) (unknown) PSYCH: Normal mood (units (unknown) date) and affect unknown) (unknown) (no (unknown) (unknown) PT 11.2 (10.1-12.7) (unit s (unknown) date) SECONDS unknown) (unknown) (no (unknown) (unknown) PTT Partial (units (un known) date) Thromboplastin Rodolfo unknown) Stat (unknown) (no (unknown) (unknown) Patient Comments: (units (unknown) date) unknown) (unknown) (no (unknown) (unknown) Patient History (units (unknown) date) unknown) (unknown) (no (unknown) (unknown) Patient appears in (units (unknown) date) moderate distress. unknown) Patient is confused has slightly slurred (unknown) (no (unknown) (unknown) Patient denies (units (unknown) date) pain, no shortness unknown) of breath, no GI or urinary symptoms. He is (unknown) (no (unknown) (unknown) Patient: (units (unkno wn) date) Octavio Romo MR#: unknown) M00 (unknown) (no (unknown) (unknown) Plt Count 296 (units ( unknown) date) (150-400) X103/uL unknown) (unknown) (no (unknown) (unknown) Point of Care (units ( unknown) date) Testing unknown) (unknown) (no (unknown) (unknown) Positive Nexus (units (unknown) date) criteria, there is unknown) no midline line tenderness, distracting (unknown) (no (unknown) (unknown) Potassium 3.9 (units ( unknown) date) (3.4-5.1) mmol/L unknown) (unknown) (no (unknown) (unknown) Prescriptions: (units (unknown) date) unknown) (unknown) (no (unknown) (unknown) Previous Rx's (units ( unknown) date) unknown) (unknown) (no (unknown) (unknown) Prothrombin Time (units (unknown) date) INR Stat unknown) (unknown) (no (unknown) (unknown) Pulse Oximetry 97 (units (unknown) date) unknown) (unknown) (no (unknown) (unknown) Pulse Oximetry 99 (units (unknown) date) 01/14/23 10:22 unknown) (unknown) (no (unknown) (unknown) Pulse Oximetry 99 (units (unknown) date) 96 97 unknown) (unknown) (no (unknown) (unknown) Pulse Rate 87 87 (units (unknown) date) unknown) (unknown) (no (unknown) (unknown) Pulse Rate 95 H (units (unknown) date) 01/14/23 10:22 unknown) (unknown) (no (unknown) (unknown) Pulse Rate 95 H 94 (units (unknown) date) H 87 unknown) (unknown) (no (unknown) (unknown) RBC 3.80 L (units (unk nown) date) (4.5-5.9) X106/uL unknown) (unknown) (no (unknown) (unknown) RDW 13.2 (units (unkno wn) date) (11.6-14.8) % unknown) (unknown) (no (unknown) (unknown) RESP: Chest is (units (unknown) date) nontender and has unknown) symmetric movement, no ecchymosis, breath (unknown) (no (unknown) (unknown) Related Data (units (u nknown) date) unknown) (unknown) (no (unknown) (unknown) Respiratory Rate 14 (unit s (unknown) date) unknown) (unknown) (no (unknown) (unknown) Respiratory Rate 18 (unit s (unknown) date) 01/14/23 10:22 unknown) (unknown) (no (unknown) (unknown) Respiratory Rate 18 (unit s (unknown) date) 12 14 unknown) (unknown) (no (unknown) (unknown) Review of Systems (units (unknown) date) unknown) (unknown) (no (unknown) (unknown) Rx Instructions: (units (unknown) date) unknown) (unknown) (no (unknown) (unknown) SKIN: Patient has a (unit s (unknown) date) small 2 cm burn on unknown) his right forearm that has blistered and (unknown) (no (unknown) (unknown) Signed By: (units (unk nown) date) unknown) (unknown) (no (unknown) (unknown) Smoking Status: (units (unknown) date) Never smoker unknown) (unknown) (no (unknown) (unknown) Social History (units (unknown) date) (Reviewed 04/13/20 @ unknown) 20:09 by Derick Crandall MD) (unknown) (no (unknown) (unknown) Sodium 140 (units (unk nown) date) (137-145) mmol/L unknown) (unknown) (no (unknown) (unknown) Source: patient, (units (unknown) date) EMS, RN notes unknown) reviewed and old records reviewed (unknown) (no (unknown) (unknown) Stated Complaint: (units (unknown) date) Trauma unknown) (unknown) (no (unknown) (unknown) Stop: 01/14/23 (units (unknown) date) 10:27 unknown) (unknown) (no (unknown) (unknown) Stop: 01/14/23 (units (unknown) date) 10:29 unknown) (unknown) (no (unknown) (unknown) Stop: 01/14/23 (units (unknown) date) 10:58 unknown) (unknown) (no (unknown) (unknown) Substance Use Type: (unit s (unknown) date) does not use unknown) (unknown) (no (unknown) (unknown) Syringe) 0.5 ml IM (units (unknown) date) .ONCE ONE unknown) (unknown) (no (unknown) (unknown) TK 1 TO 2 TS O Q 4 (units (unknown) date) TO 6 HOURS PRF PAIN unknown) (unknown) (no (unknown) (unknown) Temperature 97.4 F (units (unknown) date) L 01/14/23 10:22 unknown) (unknown) (no (unknown) (unknown) Temperature 97.4 F (units (unknown) date) L unknown) (unknown) (no (unknown) (unknown) Temperature (units (un known) date) unknown) (unknown) (no (unknown) (unknown) They also note that (unit s (unknown) date) they were called out unknown) for a wellness check yesterday they (unknown) (no (unknown) (unknown) This is a (units (unkno wn) date) 53-year-old male who unknown) appears intoxicated, he does have scabbing with a (unknown) (no (unknown) (unknown) This is a (units (unkn own) date) 53-year-old male unknown) with known history of alcohol abuse, insulin (unknown) (no (unknown) (unknown) Time Seen by (units (u nknown) date) Provider: 01/14/23 unknown) 10:26 (unknown) (no (unknown) (unknown) To sleep sinus (units (unknown) date) rhythm rate of 72 [place] unknown) 130 QRS of 98 QTC [address]. No acute ST (unknown) (no (unknown) (unknown) Total Bilirubin 0.4 (unit s (unknown) date) (0.2-1.3) mg/dL unknown) (unknown) (no (unknown) (unknown) Total Protein 7.2 (units (unknown) date) (6.3-8.2) g/dL unknown) (unknown) (no (unknown) (unknown) Type and Screen (units (unknown) date) Stat unknown) (unknown) (no (unknown) (unknown) Urine Drug Screen, (units (unknown) date) Rapid Stat unknown) (unknown) (no (unknown) (unknown) Vital Signs - 8 hr (units (unknown) date) unknown) (unknown) (no (unknown) (unknown) Vital Signs (units (un known) date) unknown) (unknown) (no (unknown) (unknown) Vital signs: (units (u nknown) date) unknown) (unknown) (no (unknown) (unknown) WAS (units (unkno wn) date) unknown) (unknown) (no (unknown) (unknown) WBC 4.3 L (units (unkn own) date) (4.5-11.0) X103/uL unknown) (unknown) (no (unknown) (unknown) XR chest 1V Stat (units (unknown) date) unknown) (unknown) (no (unknown) (unknown) XR pelvis 1-2V Stat (unit s (unknown) date) unknown) (unknown) (no (unknown) (unknown) [Embedded Image Not (unit s (unknown) date) Available] unknown) (unknown) (no (unknown) (unknown) [From BETADINE] (units (unknown) date) FEELS LIKE unknown) (unknown) (no (unknown) (unknown) [SHELLFISH DERIVED] (unit s (unknown) date) LIKE IT unknown) (unknown) (no (unknown) (unknown) a small burn on his (units (unknown) date) right forearm and he unknown) has bruising his girlfriend told medics (unknown) (no (unknown) (unknown) alcohol intake (units (unknown) date) frequency: 0-2 unknown) drinks per day (unknown) (no (unknown) (unknown) allergy to iodine (units (unknown) date) which he did not unknown) tell us earlier. Was pretreated with (unknown) (no (unknown) (unknown) and when asked he (units (unknown) date) states he does want unknown) to kill himself when asked why he does not (unknown) (no (unknown) (unknown) answer. When asked (units (unknown) date) if he has a plan he unknown) does not give one. Medics a girlfriend (unknown) (no (unknown) (unknown) anything amiss in (units (unknown) date) the house but he had unknown) been found on the ground in the bathroom. (unknown) (no (unknown) (unknown) appears older with (units (unknown) date) healing skin unknown) underneath, warm and dry, no crepitus and (unknown) (no (unknown) (unknown) arrived. (units (unkno wn) date) unknown) (unknown) (no (unknown) (unknown) chest abdomen (units ( unknown) date) pelvis there was unknown) some delay as it was found patient has reported (unknown) (no (unknown) (unknown) chest and abdomen (units (unknown) date) although it appears unknown) little bit older, and he has a burn on his (unknown) (no (unknown) (unknown) chest, right upper (units (unknown) date) abdomen and right unknown) lower abdomen. (unknown) (no (unknown) (unknown) cyclobenzaprine 10 (units (unknown) date) mg tablet 10 mg PO unknown) TID PRN muscle spasm #15 04/13/20 (unknown) (no (unknown) (unknown) cyclobenzaprine 10 (units (unknown) date) mg tablet unknown) (unknown) (no (unknown) (unknown) dependent diabetes (units (unknown) date) and chronic pain unknown) with a pain pump in his left abdomen. Patie (unknown) (no (unknown) (unknown) do his injections (units (unknown) date) which he states are unknown) insulin. He states he has a pain pump in (unknown) (no (unknown) (unknown) drinks at least a (units (unknown) date) 5th daily, he denies unknown) tobacco or illicit. He states he did not (unknown) (no (unknown) (unknown) elevation or (units (u nknown) date) depression. unknown) (unknown) (no (unknown) (unknown) found blood in a (units (unknown) date) different location unknown) but the patient was not present at that (unknown) (no (unknown) (unknown) function at (units (un known) date) baseline at 0.42 unknown) normal electrolytes glucose is 254, AST ALT alk (unknown) (no (unknown) (unknown) gabapentin 300 mg (units (unknown) date) capsule 2 cap PO TID unknown) 07/27/18 07/27/18 (unknown) (no (unknown) (unknown) gabapentin 300 mg (units (unknown) date) capsule unknown) (unknown) (no (unknown) (unknown) gape, trachea is (units (unknown) date) midline, TM's are unknown) normal no hemotypanum, Nares are clear, no (unknown) (no (unknown) (unknown) ground there was (units (unknown) date) reportedly some unknown) glass at the scene and the medics state that (unknown) (no (unknown) (unknown) his belly. He did (units (unknown) date) make statements that unknown) he wanted to kill himself to the medics (unknown) (no (unknown) (unknown) his prior injuries (units (unknown) date) with chest and unknown) abdominal bruising, with CT head, C-spine and (unknown) (no (unknown) (unknown) injury, altered (units (unknown) date) mental status, neuro unknown) deficit, positive for recent EtOH. (unknown) (no (unknown) (unknown) last saw the (units (u nknown) date) patient on unknown) she noted that he bought a bottle of hard (unknown) (no (unknown) (unknown) leave on most (units ( unknown) date) painful area for up unknown) to 12 hrs (unknown) (no (unknown) (unknown) levothyroxine 100 (units (unknown) date) mcg tablet 1 tab PO unknown) DAILY 07/27/18 07/27/18 (unknown) (no (unknown) (unknown) levothyroxine 100 (units (unknown) date) mcg tablet unknown) (unknown) (no (unknown) (unknown) lidocaine 5 % (units ( unknown) date) topical patch 2 unknown) patch topical DAILY #15 ea 04/13/20 (unknown) (no (unknown) (unknown) lidocaine (units (unkn own) date) [Lidoderm] 5 % unknown) adhesive patch,medicated (unknown) (no (unknown) (unknown) liquor at that time (unit s (unknown) date) and there was only unknown) about a few mL left today when EMS (unknown) (no (unknown) (unknown) magnesium 1 tab PO (units (unknown) date) BEDTIME PRN stool unknown) softener 07/27/18 07/27/18 (unknown) (no (unknown) (unknown) magnesium 400 mg (units (unknown) date) tablet unknown) (unknown) (no (unknown) (unknown) methocarbamol 500 (units (unknown) date) mg tablet 1 tab PO unknown) Q4H PRN Spasms 07/27/18 07/27/18 (unknown) (no (unknown) (unknown) methocarbamol 500 (units (unknown) date) mg tablet unknown) (unknown) (no (unknown) (unknown) moving all his (units (unknown) date) extremities well. Is unknown) conversant but confused. Patient states he (unknown) (no (unknown) (unknown) negative. Patient (units (unknown) date) was CT scan unknown) secondary to intoxication unclear mechanism of (unknown) (no (unknown) (unknown) normal color and (units (unknown) date) temperature, normal unknown) range of motion of extremities with normal (unknown) (no (unknown) (unknown) nt states he does (units (unknown) date) not know who he is unknown) aware he is. He is able to give his name (unknown) (no (unknown) (unknown) obtained is unclear (unit s (unknown) date) what exactly unknown) occurred. Patient was called out as a modified (unknown) (no (unknown) (unknown) occlusion, No bony (units (unknown) date) tenderness unknown) (unknown) (no (unknown) (unknown) ondansetron HCl 4 (units (unknown) date) mg tablet 4 mg PO unknown) Q6H PRN nausea and 04/13/20 (unknown) (no (unknown) (unknown) ondansetron HCl (units (unknown) date) [Zofran] 4 mg tablet unknown) (unknown) (no (unknown) (unknown) oxycodone 10 mg (units (unknown) date) tablet 10 mg PO Q6H unknown) PRN pain #16 tabs 04/13/20 (unknown) (no (unknown) (unknown) oxycodone 10 mg (units (unknown) date) tablet unknown) (unknown) (no (unknown) (unknown) oxycodone 5 mg (units (unknown) date) tablet 1 - 2 tab PO unknown) Q4-6H PRN pain 07/27/18 07/27/18 (unknown) (no (unknown) (unknown) oxycodone 5 mg (units (unknown) date) tablet unknown) (unknown) (no (unknown) (unknown) pelvic rock is (units (unknown) date) negative, patient unknown) has device in the left lateral abdomen. (unknown) (no (unknown) (unknown) penicillin G (units (u nknown) date) [PENICILLIN G] unknown) Allergy Unknown LEFT EAR Verified 07/27/18 10:10 (unknown) (no (unknown) (unknown) phos are [id number] and (units (unknown) date) 146 with a negative unknown) bilirubin and lipase of 109. EKG shows a (unknown) (no (unknown) (unknown) povidone-iodine (units (unknown) date) Allergy Unknown unknown) 'SKIN Verified 07/27/18 10:10 (unknown) (no (unknown) (unknown) redirectable (units (u nknown) date) although he keeps unknown) saying he wants to get out of the bed. He has (unknown) (no (unknown) (unknown) right forearm that (units (unknown) date) also appears little unknown) bit older. Patient was found on the (unknown) (no (unknown) (unknown) septal hematoma, no (unit s (unknown) date) dental or oral unknown) injury, airway is normal and with normal (unknown) (no (unknown) (unknown) shellfish derived (units (unknown) date) Allergy Unknown unknown) 'SKIN FELT Verified 07/27/18 10:10 (unknown) (no (unknown) (unknown) sinus rhythm no (units (unknown) date) acute ST changes. unknown) Initial chest x-ray and pelvic x-ray is (unknown) (no (unknown) (unknown) soap [From (units (unk nown) date) BETADINE] Allergy unknown) Unknown 'SKIN Verified 07/27/18 10:10 (unknown) (no (unknown) (unknown) some blood at the (units (unknown) date) scene in a different unknown) location. Patient had labs, imaging (unknown) (no (unknown) (unknown) some broken glass, (units (unknown) date) medics state the unknown) glass was cleaned up they did not see (unknown) (no (unknown) (unknown) sounds are normal (units (unknown) date) no crackles, wheezes unknown) or rales (unknown) (no (unknown) (unknown) speech appears (units (unknown) date) intoxicated but is unknown) conversant. (unknown) (no (unknown) (unknown) superficial lack of (unit s (unknown) date) the right forehead, unknown) he has some bruising of his anterior (unknown) (no (unknown) (unknown) tabs (units (unkno wn) date) unknown) (unknown) (no (unknown) (unknown) tendon exam, 2+ (units (unknown) date) pulses in all four unknown) extremities (unknown) (no (unknown) (unknown) that is bruising on (unit s (unknown) date) his left abdomen is unknown) from injections but onto his chest and (unknown) (no (unknown) (unknown) they were there the (unit s (unknown) date) day before patient unknown) was not present at home but there was (unknown) (no (unknown) (unknown) time. Patient does (units (unknown) date) not recall what unknown) trauma occurred. The somewhat repetitive. (unknown) (no (unknown) (unknown) trauma. (units (unkno wn) date) unknown) (unknown) (no (unknown) (unknown) upper abdomen she (units (unknown) date) is unsure. Patient unknown) was found at home in the bathroom with (unknown) (no (unknown) (unknown) what appears to be (units (unknown) date) scabbed superficial unknown) laceration over his right forehead he has (unknown) (no (unknown) (unknown) when he is (units (unk nown) date) registered. Patient unknown) is confused but follows commands he is (unknown) (no (unknown) (unknown) without decubitus. (units (unknown) date) Patient has unknown) ecchymosis that is about 4 cm on his anterior Result panel 222 (unknown) (no date) (unknown) (unknown) NEGATIVE (units (unkn own) unknown) (unknown) (no date) (unknown) (unknown) O Positive (units (un known) unknown) Result panel 223 (unknown) (no date) (unknown) (unknown) 2.1 mmol/l (unkn own) Result panel 224 (unknown) (no date) (unknown) (unknown) 1.9 mmol/l (unkn own) Result panel 225 (unknown) (no (unknown) (unknown) (no value) (units (unk nown) date) unknown) (unknown) (no (unknown) (unknown) (Lidoderm) (units (unk nown) date) unknown) (unknown) (no (unknown) (unknown) (Zofran) vomiting (units (unknown) date) #15 tabs unknown) (unknown) (no (unknown) (unknown) [id number] (units (unkno wn) date) unknown) (unknown) (no (unknown) (unknown) 01/14/23 01/14/23 (units (unknown) date) 01/14/23 Range/Units unknown) (unknown) (no (unknown) (unknown) 01/14/23 10:27 (units (unknown) date) unknown) (unknown) (no (unknown) (unknown) 01/14/23 10:29 (units (unknown) date) unknown) (unknown) (no (unknown) (unknown) 01/14/23 10:35 (units (unknown) date) unknown) (unknown) (no (unknown) (unknown) 01/14/23 10:45 (units (unknown) date) unknown) (unknown) (no (unknown) (unknown) 01/14/23 11:17 (units (unknown) date) unknown) (unknown) (no (unknown) (unknown) 01/14/23 11:23 (units (unknown) date) unknown) (unknown) (no (unknown) (unknown) 01/14/23 14:07 (units (unknown) date) unknown) (unknown) (no (unknown) (unknown) 01/14/23 (units (unkno wn) date) unknown) (unknown) (no (unknown) (unknown) 1 - 2 tab PO Q4-6H (units (unknown) date) PRN (Reason: pain) unknown) (unknown) (no (unknown) (unknown) 1 tab PO BEDTIME (units (unknown) date) PRN (Reason: stool unknown) softener) (unknown) (no (unknown) (unknown) 1 tab PO DAILY (units (unknown) date) unknown) (unknown) (no (unknown) (unknown) 1 tab PO Q4H PRN (units (unknown) date) (Reason: Spasms) unknown) (unknown) (no (unknown) (unknown) 1-2 tabs as needed (units (unknown) date) for nausea and unknown) vomiting (unknown) (no (unknown) (unknown) 10 mg PO Q6H PRN (units (unknown) date) (Reason: pain) Qty: unknown) 16 0RF (unknown) (no (unknown) (unknown) 10 mg PO TID PRN (units (unknown) date) (Reason: muscle unknown) spasm) Qty: 15 0RF (unknown) (no (unknown) (unknown) 10:22 01/14/23 (units (unknown) date) unknown) (unknown) (no (unknown) (unknown) 10:25 01/14/23 (units (unknown) date) unknown) (unknown) (no (unknown) (unknown) 10:30 (units (unkno wn) date) unknown) (unknown) (no (unknown) (unknown) 10:32 01/14/23 (units (unknown) date) unknown) (unknown) (no (unknown) (unknown) 10:45 10:45 10:45 (units (unknown) date) unknown) (unknown) (no (unknown) (unknown) 10:45 11:23 13:48 (units (unknown) date) unknown) (unknown) (no (unknown) (unknown) 11:00 (units (unkno wn) date) unknown) (unknown) (no (unknown) (unknown) 11:24 01/14/23 (units (unknown) date) unknown) (unknown) (no (unknown) (unknown) 11:30 (units (unkno wn) date) unknown) (unknown) (no (unknown) (unknown) 11:31 01/14/23 (units (unknown) date) unknown) (unknown) (no (unknown) (unknown) 11:50 01/14/23 (units (unknown) date) unknown) (unknown) (no (unknown) (unknown) 11:50 (units (unkno wn) date) unknown) (unknown) (no (unknown) (unknown) 12:05 01/14/23 (units (unknown) date) unknown) (unknown) (no (unknown) (unknown) 12:05 (units (unkno wn) date) unknown) (unknown) (no (unknown) (unknown) 12:15 01/14/23 (units (unknown) date) unknown) (unknown) (no (unknown) (unknown) 12:30 01/14/23 (units (unknown) date) unknown) (unknown) (no (unknown) (unknown) 12:30 (units (unkno wn) date) unknown) (unknown) (no (unknown) (unknown) 12:45 01/14/23 (units (unknown) date) unknown) (unknown) (no (unknown) (unknown) 12:45 (units (unkno wn) date) unknown) (unknown) (no (unknown) (unknown) 13:00 01/14/23 (units (unknown) date) unknown) (unknown) (no (unknown) (unknown) 13:01 01/14/23 (units (unknown) date) unknown) (unknown) (no (unknown) (unknown) 13:01 (units (unkno wn) date) unknown) (unknown) (no (unknown) (unknown) 13:15 01/14/23 (units (unknown) date) unknown) (unknown) (no (unknown) (unknown) 13:30 01/14/23 (units (unknown) date) unknown) (unknown) (no (unknown) (unknown) 13:30 (units (unkno wn) date) unknown) (unknown) (no (unknown) (unknown) 13:49 01/14/23 (units (unknown) date) unknown) (unknown) (no (unknown) (unknown) 13:49 (units (unkno wn) date) unknown) (unknown) (no (unknown) (unknown) 2 cap PO TID (units (u nknown) date) unknown) (unknown) (no (unknown) (unknown) 2 patch TOP DAILY (units (unknown) date) Qty: 15 0RF unknown) (unknown) (no (unknown) (unknown) 2016 white count of (unit s (unknown) date) 4.3 normal platelets unknown) at 296. Coags are negative, renal (unknown) (no (unknown) (unknown) 4 extremities (units ( unknown) date) moving, cranial unknown) nerves II through XII are intact, GCS is 15 (unknown) (no (unknown) (unknown) 4 mg PO Q6H PRN (units (unknown) date) (Reason: nausea and unknown) vomiting) Qty: 15 0RF (unknown) (no (unknown) (unknown) ABG/GI: Nontender, (units (unknown) date) soft, normal bowel unknown) sounds, no distention, no organomegaly, (unknown) (no (unknown) (unknown) AGE 12YR (units (unkno wn) date) unknown) (unknown) (no (unknown) (unknown) ALT (<50) IU/L (units (unknown) date) unknown) (unknown) (no (unknown) (unknown) ALT 88 H (<50) IU/L (unit s (unknown) date) unknown) (unknown) (no (unknown) (unknown) APTT (26-36) (units (u nknown) date) SECONDS unknown) (unknown) (no (unknown) (unknown) APTT 34 (26-36) (units (unknown) date) SECONDS unknown) (unknown) (no (unknown) (unknown) AST (17-59) IU/L (units (unknown) date) unknown) (unknown) (no (unknown) (unknown) AST 87 H (17-59) (units (unknown) date) IU/L unknown) (unknown) (no (unknown) (unknown) Age/Sex: 53 / M (units (unknown) date) unknown) (unknown) (no (unknown) (unknown) Albumin (3.5-5.0) (units (unknown) date) g/dL unknown) (unknown) (no (unknown) (unknown) Albumin 4.0 (units (un known) date) (3.5-5.0) g/dL unknown) (unknown) (no (unknown) (unknown) Albumin/Globulin (units (unknown) date) Ratio (1.0-2.8) unknown) (unknown) (no (unknown) (unknown) Albumin/Globulin (units (unknown) date) Ratio 1.3 (1.0-2.8) unknown) (unknown) (no (unknown) (unknown) Alkaline (units (unkno wn) date) Phosphatase (38-126) unknown) U/L (unknown) (no (unknown) (unknown) Alkaline (units (unkno wn) date) Phosphatase 146 H unknown) (38-126) U/L (unknown) (no (unknown) (unknown) Allergies (units (unkn own) date) unknown) (unknown) (no (unknown) (unknown) Allergy/AdvReac (units (unknown) date) Type Severity unknown) Reaction Status Date / Time (unknown) (no (unknown) (unknown) Antibody Screen (units (unknown) date) Negative unknown) (unknown) (no (unknown) (unknown) Antibody Screen (units (unknown) date) unknown) (unknown) (no (unknown) (unknown) Attestation: I (units (unknown) date) personally reviewed unknown) and interpreted this ECG as follows: (unknown) (no (unknown) (unknown) BACK: No CVA (units (u nknown) date) tenderness, no unknown) vertebral tenderness, no step-off's, no crepitus (unknown) (no (unknown) (unknown) BUN (9-20) mg/dL (units (unknown) date) unknown) (unknown) (no (unknown) (unknown) BUN 8 L (9-20) (units (unknown) date) mg/dL unknown) (unknown) (no (unknown) (unknown) BUN/Creatinine (units (unknown) date) Ratio (6-22) unknown) (unknown) (no (unknown) (unknown) BUN/Creatinine (units (unknown) date) Ratio 19.0 (6-22) unknown) (unknown) (no (unknown) (unknown) BURNING' (units (unkno wn) date) unknown) (unknown) (no (unknown) (unknown) Baso # (Auto) (units ( unknown) date) (0-100) /uL unknown) (unknown) (no (unknown) (unknown) Baso # (Auto) 100 (units (unknown) date) (0-100) /uL unknown) (unknown) (no (unknown) (unknown) Baso % (Auto) (0-2) (unit s (unknown) date) % unknown) (unknown) (no (unknown) (unknown) Baso % (Auto) 1.4 (units (unknown) date) (0-2) % unknown) (unknown) (no (unknown) (unknown) Benadryl and (units (u nknown) date) Solu-Medrol as he unknown) was felt stable. This shows (unknown) (no (unknown) (unknown) Blood Pressure (units (unknown) date) 133/92 H unknown) (unknown) (no (unknown) (unknown) Blood Pressure (units (unknown) date) 135/88 144/96 H unknown) (unknown) (no (unknown) (unknown) Blood Pressure (units (unknown) date) 146/82 H unknown) (unknown) (no (unknown) (unknown) Blood Pressure (units (unknown) date) 148/91 H 137/84 unknown) (unknown) (no (unknown) (unknown) Blood Pressure (units (unknown) date) 149/94 H 01/14/23 unknown) 10:22 (unknown) (no (unknown) (unknown) Blood Pressure (units (unknown) date) 149/94 H unknown) (unknown) (no (unknown) (unknown) Blood Pressure (units (unknown) date) 151/87 H unknown) (unknown) (no (unknown) (unknown) Blood Pressure (units (unknown) date) 155/97 H unknown) (unknown) (no (unknown) (unknown) Blood Pressure (units (unknown) date) 160/97 H unknown) (unknown) (no (unknown) (unknown) Blood Pressure (units (unknown) date) 164/106 H 141/98 H unknown) (unknown) (no (unknown) (unknown) Blood Pressure (units (unknown) date) 181/95 H unknown) (unknown) (no (unknown) (unknown) Blood Type O (units (u nknown) date) Positive unknown) (unknown) (no (unknown) (unknown) Blood Type (units (unk nown) date) unknown) (unknown) (no (unknown) (unknown) CT cervical spine (units (unknown) date) wo con Stat unknown) (unknown) (no (unknown) (unknown) CT chest abd pel w (units (unknown) date) con Stat unknown) (unknown) (no (unknown) (unknown) CT head/brain wo (units (unknown) date) con Stat unknown) (unknown) (no (unknown) (unknown) CVS: Heart sounds (units (unknown) date) are normal, no unknown) murmur noted, No JVD. (unknown) (no (unknown) (unknown) Calcium (8.4-10.2) (units (unknown) date) mg/dL unknown) (unknown) (no (unknown) (unknown) Calcium 8.5 (units (un known) date) (8.4-10.2) mg/dL unknown) (unknown) (no (unknown) (unknown) Carbon Dioxide (units (unknown) date) (22-32) mmol/L unknown) (unknown) (no (unknown) (unknown) Carbon Dioxide 30 (units (unknown) date) (22-32) mmol/L unknown) (unknown) (no (unknown) (unknown) Chief Complaint: (units (unknown) date) Trauma unknown) (unknown) (no (unknown) (unknown) Chloride (98-107) (units (unknown) date) mmol/L unknown) (unknown) (no (unknown) (unknown) Chloride 100 (units (u nknown) date) (98-107) mmol/L unknown) (unknown) (no (unknown) (unknown) Chronic low back (units (unknown) date) pain unknown) (unknown) (no (unknown) (unknown) Complete Blood (units (unknown) date) Count AUTO DIFF Stat unknown) (unknown) (no (unknown) (unknown) Comprehensive (units ( unknown) date) Metabolic Panel Stat unknown) (unknown) (no (unknown) (unknown) Consult to [facility] [place] - (units (unknown) date) 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) (unknown) (no (unknown) (unknown) Course (units (unkno wn) date) unknown) (unknown) (no (unknown) (unknown) Creatinine (units (unk nown) date) (0.66-1.25) mg/dL unknown) (unknown) (no (unknown) (unknown) Creatinine 0.42 L (units (unknown) date) (0.66-1.25) mg/dL unknown) (unknown) (no (unknown) (unknown) : 1970 (units (unknown) date) Acct:[id number] unknown) (unknown) (no (unknown) (unknown) Date of Service: (units (unknown) date) 01/14/23 unknown) (unknown) (no (unknown) (unknown) Departure (units (unkn own) date) unknown) (unknown) (no (unknown) (unknown) Diphenhydramine HCl (unit s (unknown) date) (Diphenhydramine 50 unknown) Mg/Ml Vial) 50 mg IV NOW ONE (unknown) (no (unknown) (unknown) Diphtheria/Tetanus/ (unit s (unknown) date) Acell Pertussis unknown) (Tet,Diph,Pertuss(Ac ell),Vac/Pf 0.5 Ml (unknown) (no (unknown) (unknown) Discharge Plan (units (unknown) date) unknown) (unknown) (no (unknown) (unknown) Discontinued (units (u nknown) date) Medications unknown) (unknown) (no (unknown) (unknown) Documented By: AT (units (unknown) date) unknown) (unknown) (no (unknown) (unknown) ECG Data (units (unkno wn) date) unknown) (unknown) (no (unknown) (unknown) ED Orders (units (unkn own) date) unknown) (unknown) (no (unknown) (unknown) EKG-12 Lead Stat (units (unknown) date) unknown) (unknown) (no (unknown) (unknown) ENT: Patient has (units (unknown) date) superficial scabbed unknown) laceration over his right brow, does not (unknown) (no (unknown) (unknown) ER Physician: (units ( unknown) date) Bridgett Garrido D.O. unknown) (unknown) (no (unknown) (unknown) EXT: Atraumatic (units (unknown) date) other than skin unknown) changes. hips are nontender, no pedal edema, (unknown) (no (unknown) (unknown) EYES: PERRLA, EOMI (units (unknown) date) unknown) (unknown) (no (unknown) (unknown) Emergency Report (units (unknown) date) unknown) (unknown) (no (unknown) (unknown) Eos # (Auto) (units (u nknown) date) (0-450) /uL unknown) (unknown) (no (unknown) (unknown) Eos # (Auto) 100 (units (unknown) date) (0-450) /uL unknown) (unknown) (no (unknown) (unknown) Eos % (Auto) (2-4) (units (unknown) date) % unknown) (unknown) (no (unknown) (unknown) Eos % (Auto) 2.2 (units (unknown) date) (2-4) % unknown) (unknown) (no (unknown) (unknown) Estimated GFR > 60 (units (unknown) date) (>60) mL/min unknown) (unknown) (no (unknown) (unknown) Estimated GFR (>60) (unit s (unknown) date) mL/min unknown) (unknown) (no (unknown) (unknown) Ethanol (ETOH) Stat (unit s (unknown) date) unknown) (unknown) (no (unknown) (unknown) Ethyl Alcohol ( - (units (unknown) date) 10) mg/dL unknown) (unknown) (no (unknown) (unknown) Ethyl Alcohol 308 H (unit s (unknown) date) ( - 10) mg/dL unknown) (unknown) (no (unknown) (unknown) Exam (units (unkno wn) date) unknown) (unknown) (no (unknown) (unknown) FEELS LIKE (units (unk nown) date) unknown) (unknown) (no (unknown) (unknown) GEN: C-collar was (units (unknown) date) placed by EMS in the unknown) field but patient would not keep it on. (unknown) (no (unknown) (unknown) General (units (unkno wn) date) unknown) (unknown) (no (unknown) (unknown) Globulin (1.7-4.1) (units (unknown) date) g/dL unknown) (unknown) (no (unknown) (unknown) Globulin 3.2 (units (u nknown) date) (1.7-4.1) g/dL unknown) (unknown) (no (unknown) (unknown) Glucose (70-100) (units (unknown) date) mg/dL unknown) (unknown) (no (unknown) (unknown) Glucose 254 H (units ( unknown) date) (70-100) mg/dL unknown) (unknown) (no (unknown) (unknown) Glucose POC 268 (units (unknown) date) unknown) (unknown) (no (unknown) (unknown) HEAD: No evidence (units (unknown) date) of trauma, no unknown) raccoon/Johnson sign. (unknown) (no (unknown) (unknown) HEARING (units (unkno wn) date) unknown) (unknown) (no (unknown) (unknown) HPI - Trauma (units (u nknown) date) unknown) (unknown) (no (unknown) (unknown) HPI narrative: (units (unknown) date) unknown) (unknown) (no (unknown) (unknown) Hct (41-53) % (units ( unknown) date) unknown) (unknown) (no (unknown) (unknown) Hct 36.9 L (41-53) (units (unknown) date) % unknown) (unknown) (no (unknown) (unknown) Hgb (13.5-17.5) (units (unknown) date) g/dL unknown) (unknown) (no (unknown) (unknown) Hgb 12.3 L (units (unk nown) date) (13.5-17.5) g/dL unknown) (unknown) (no (unknown) (unknown) History of Present (units (unknown) date) Illness unknown) (unknown) (no (unknown) (unknown) Home Medications (units (unknown) date) unknown) (unknown) (no (unknown) (unknown) INR (0.9-1.3) (units ( unknown) date) unknown) (unknown) (no (unknown) (unknown) INR 1.0 (0.9-1.3) (units (unknown) date) unknown) (unknown) (no (unknown) (unknown) Initial Vital Signs (unit s (unknown) date) unknown) (unknown) (no (unknown) (unknown) Initial Vital (units ( unknown) date) Signs: unknown) (unknown) (no (unknown) (unknown) Interpretation: (units (unknown) date) unknown) (unknown) (no (unknown) (unknown) [facility] (units (unknown) date) [address] unknown) [place] [address] (unknown) (no (unknown) (unknown) LOSS AT (units (unkno wn) date) unknown) (unknown) (no (unknown) (unknown) Lab Data (units (unkno wn) date) unknown) (unknown) (no (unknown) (unknown) Lab Results (units (un known) date) unknown) (unknown) (no (unknown) (unknown) Labs show an ETOH (units (unknown) date) of 308, patient has unknown) a hemoglobin of 12 baseline compared to (unknown) (no (unknown) (unknown) Labs: (units (unkno wn) date) unknown) (unknown) (no (unknown) (unknown) Lactate (0.7-2.1) (units (unknown) date) mmol/L unknown) (unknown) (no (unknown) (unknown) Lactate (Lactic (units (unknown) date) Acid) Stat unknown) (unknown) (no (unknown) (unknown) Lactate 2.1 1.9 (units (unknown) date) (0.7-2.1) mmol/L unknown) (unknown) (no (unknown) (unknown) Last Admin: (units (un known) date) 01/14/23 10:42 Dose: unknown) 0.5 mg (unknown) (no (unknown) (unknown) Last Admin: (units (un known) date) 01/14/23 11:11 Dose: unknown) 50 mg (unknown) (no (unknown) (unknown) Last Admin: (units (un known) date) 01/14/23 11:12 Dose: unknown) 125 mg (unknown) (no (unknown) (unknown) Limitations: no (units (unknown) date) limitations unknown) (unknown) (no (unknown) (unknown) Lipase (23-300) U/L (unit s (unknown) date) unknown) (unknown) (no (unknown) (unknown) Lipase 109 (23-300) (unit s (unknown) date) U/L unknown) (unknown) (no (unknown) (unknown) Lipase Stat (units (un known) date) unknown) (unknown) (no (unknown) (unknown) Lorazepam (units (unkn own) date) (Lorazepam 2 Mg/Ml unknown) Inj) 0.5 mg IV NOW ONE (unknown) (no (unknown) (unknown) Lorazepam (units (unkn own) date) (Lorazepam 2 Mg/Ml unknown) Inj) 0.5 mg IV Q2HR PRN (unknown) (no (unknown) (unknown) Lymph # (Auto) (units (unknown) date) (5342-0946) /uL unknown) (unknown) (no (unknown) (unknown) Lymph # (Auto) 1700 (unit s (unknown) date) (6625-9141) /uL unknown) (unknown) (no (unknown) (unknown) Lymph % (Auto) (units (unknown) date) (25-40) % unknown) (unknown) (no (unknown) (unknown) Lymph % (Auto) 39.1 (unit s (unknown) date) (25-40) % unknown) (unknown) (no (unknown) (unknown) MCH (26-34) PG (units (unknown) date) unknown) (unknown) (no (unknown) (unknown) MCH 32.5 (26-34) PG (unit s (unknown) date) unknown) (unknown) (no (unknown) (unknown) MCHC (30-36) % (units (unknown) date) unknown) (unknown) (no (unknown) (unknown) MCHC 33.5 (30-36) % (unit s (unknown) date) unknown) (unknown) (no (unknown) (unknown) MCV (80-100) fL (units (unknown) date) unknown) (unknown) (no (unknown) (unknown) MCV 97.1 (80-100) (units (unknown) date) fL unknown) (unknown) (no (unknown) (unknown) MDM - Trauma (units (u nknown) date) unknown) (unknown) (no (unknown) (unknown) MDM Narrative (units ( unknown) date) unknown) (unknown) (no (unknown) (unknown) Medical History (units (unknown) date) (Updated 04/28/20 @ unknown) 00:00 by ) (unknown) (no (unknown) (unknown) Medical decision (units (unknown) date) making narrative: unknown) (unknown) (no (unknown) (unknown) Medication (units (unk nown) date) Instructions unknown) Recorded Confirmed (unknown) (no (unknown) (unknown) Medication (units (unk nown) date) Instructions unknown) Recorded (unknown) (no (unknown) (unknown) Methylprednisolone (units (unknown) date) (Methylprednisolone unknown) 125 Mg/2 Ml Vial) 125 mg IV NOW ONE (unknown) (no (unknown) (unknown) Mode of arrival: (units (unknown) date) EMS unknown) (unknown) (no (unknown) (unknown) Pender # (Auto) (units ( unknown) date) (0-900) /uL unknown) (unknown) (no (unknown) (unknown) Pender # (Auto) 600 (units (unknown) date) (0-900) /uL unknown) (unknown) (no (unknown) (unknown) Pender % (Auto) (units ( unknown) date) (3-14) % unknown) (unknown) (no (unknown) (unknown) Pender % (Auto) 14.9 (units (unknown) date) H (3-14) % unknown) (unknown) (no (unknown) (unknown) NECK: Nontender, (units (unknown) date) painless range of unknown) motion, trachea midline (unknown) (no (unknown) (unknown) NEURO: Oriented (units (unknown) date) AOx3, neuro is unknown) grossly intact, sensation and motor is normal all (unknown) (no (unknown) (unknown) Narrative: (units (unk nown) date) unknown) (unknown) (no (unknown) (unknown) Neut # (Auto) (units ( unknown) date) (5716-1654) /uL unknown) (unknown) (no (unknown) (unknown) Neut # (Auto) 1800 (units (unknown) date) (6826-3565) /uL unknown) (unknown) (no (unknown) (unknown) Neut % (Auto) (units ( unknown) date) (50-75) % unknown) (unknown) (no (unknown) (unknown) Neut % (Auto) 42.4 (units (unknown) date) L (50-75) % unknown) (unknown) (no (unknown) (unknown) No Action (units (unkn own) date) unknown) (unknown) (no (unknown) (unknown) Nontender, (units (unk nown) date) incisions healed. unknown) (unknown) (no (unknown) (unknown) Ordered: (units (unkno wn) date) unknown) (unknown) (no (unknown) (unknown) Orders (units (unkno wn) date) unknown) (unknown) (no (unknown) (unknown) Oxygen Delivery (units (unknown) date) Method Room Air unknown) 01/14/23 10:22 (unknown) (no (unknown) (unknown) Oxygen Delivery (units (unknown) date) Method Room Air Room unknown) Air (unknown) (no (unknown) (unknown) Oxygen Delivery (units (unknown) date) Method Room Air unknown) (unknown) (no (unknown) (unknown) Oxygen Delivery (units (unknown) date) Method unknown) (unknown) (no (unknown) (unknown) PRN Reason: Anxiety (unit s (unknown) date) unknown) (unknown) (no (unknown) (unknown) PSYCH: Normal mood (units (unknown) date) and affect unknown) (unknown) (no (unknown) (unknown) PT (10.1-12.7) (units (unknown) date) SECONDS unknown) (unknown) (no (unknown) (unknown) PT 11.2 (10.1-12.7) (unit s (unknown) date) SECONDS unknown) (unknown) (no (unknown) (unknown) PTT Partial (units (un known) date) Thromboplastin Rodolfo unknown) Stat (unknown) (no (unknown) (unknown) Patient Comments: (units (unknown) date) unknown) (unknown) (no (unknown) (unknown) Patient History (units (unknown) date) unknown) (unknown) (no (unknown) (unknown) Patient appears in (units (unknown) date) moderate distress. unknown) Patient is confused has slightly slurred (unknown) (no (unknown) (unknown) Patient denies (units (unknown) date) pain, no shortness unknown) of breath, no GI or urinary symptoms. He is (unknown) (no (unknown) (unknown) Patient: (units (unkno wn) date) Octavio Romo MR#: unknown) M00 (unknown) (no (unknown) (unknown) Phenobarbital (units ( unknown) date) (Phenobarbital 65 unknown) Mg/Ml Vial) 260 mg IV NOW ONE (unknown) (no (unknown) (unknown) Plt Count (150-400) (unit s (unknown) date) X103/uL unknown) (unknown) (no (unknown) (unknown) Plt Count 296 (units ( unknown) date) (150-400) X103/uL unknown) (unknown) (no (unknown) (unknown) Point of Care (units ( unknown) date) Testing unknown) (unknown) (no (unknown) (unknown) Positive Nexus (units (unknown) date) criteria, there is unknown) no midline line tenderness, distracting (unknown) (no (unknown) (unknown) Potassium (3.4-5.1) (unit s (unknown) date) mmol/L unknown) (unknown) (no (unknown) (unknown) Potassium 3.9 (units ( unknown) date) (3.4-5.1) mmol/L unknown) (unknown) (no (unknown) (unknown) Prescriptions: (units (unknown) date) unknown) (unknown) (no (unknown) (unknown) Previous Rx's (units ( unknown) date) unknown) (unknown) (no (unknown) (unknown) Prothrombin Time (units (unknown) date) INR Stat unknown) (unknown) (no (unknown) (unknown) Pulse Oximetry 93 (units (unknown) date) 93 unknown) (unknown) (no (unknown) (unknown) Pulse Oximetry 93 (units (unknown) date) unknown) (unknown) (no (unknown) (unknown) Pulse Oximetry 94 (units (unknown) date) unknown) (unknown) (no (unknown) (unknown) Pulse Oximetry 95 (units (unknown) date) 94 unknown) (unknown) (no (unknown) (unknown) Pulse Oximetry 95 (units (unknown) date) 97 unknown) (unknown) (no (unknown) (unknown) Pulse Oximetry 95 (units (unknown) date) unknown) (unknown) (no (unknown) (unknown) Pulse Oximetry 97 (units (unknown) date) 96 unknown) (unknown) (no (unknown) (unknown) Pulse Oximetry 97 (units (unknown) date) unknown) (unknown) (no (unknown) (unknown) Pulse Oximetry 99 (units (unknown) date) 01/14/23 10:22 unknown) (unknown) (no (unknown) (unknown) Pulse Oximetry 99 (units (unknown) date) 96 97 unknown) (unknown) (no (unknown) (unknown) Pulse Rate 74 72 (units (unknown) date) unknown) (unknown) (no (unknown) (unknown) Pulse Rate 75 76 (units (unknown) date) unknown) (unknown) (no (unknown) (unknown) Pulse Rate 76 82 (units (unknown) date) unknown) (unknown) (no (unknown) (unknown) Pulse Rate 78 80 (units (unknown) date) unknown) (unknown) (no (unknown) (unknown) Pulse Rate 80 79 (units (unknown) date) unknown) (unknown) (no (unknown) (unknown) Pulse Rate 80 (units ( unknown) date) unknown) (unknown) (no (unknown) (unknown) Pulse Rate 81 (units ( unknown) date) unknown) (unknown) (no (unknown) (unknown) Pulse Rate 85 (units ( unknown) date) unknown) (unknown) (no (unknown) (unknown) Pulse Rate 87 87 (units (unknown) date) unknown) (unknown) (no (unknown) (unknown) Pulse Rate 95 H (units (unknown) date) 01/14/23 10:22 unknown) (unknown) (no (unknown) (unknown) Pulse Rate 95 H 94 (units (unknown) date) H 87 unknown) (unknown) (no (unknown) (unknown) RBC (4.5-5.9) (units ( unknown) date) X106/uL unknown) (unknown) (no (unknown) (unknown) RBC 3.80 L (units (unk nown) date) (4.5-5.9) X106/uL unknown) (unknown) (no (unknown) (unknown) RDW (11.6-14.8) % (units (unknown) date) unknown) (unknown) (no (unknown) (unknown) RDW 13.2 (units (unkno wn) date) (11.6-14.8) % unknown) (unknown) (no (unknown) (unknown) RESP: Chest is (units (unknown) date) nontender and has unknown) symmetric movement, no ecchymosis, breath (unknown) (no (unknown) (unknown) Related Data (units (u nknown) date) unknown) (unknown) (no (unknown) (unknown) Respiratory Rate 13 (unit s (unknown) date) 11 L unknown) (unknown) (no (unknown) (unknown) Respiratory Rate 14 (unit s (unknown) date) 14 unknown) (unknown) (no (unknown) (unknown) Respiratory Rate 14 (unit s (unknown) date) unknown) (unknown) (no (unknown) (unknown) Respiratory Rate 15 (unit s (unknown) date) unknown) (unknown) (no (unknown) (unknown) Respiratory Rate 18 (unit s (unknown) date) 01/14/23 10:22 unknown) (unknown) (no (unknown) (unknown) Respiratory Rate 18 (unit s (unknown) date) 12 14 unknown) (unknown) (no (unknown) (unknown) Respiratory Rate 19 (unit s (unknown) date) unknown) (unknown) (no (unknown) (unknown) Respiratory Rate 20 (unit s (unknown) date) unknown) (unknown) (no (unknown) (unknown) Respiratory Rate (units (unknown) date) unknown) (unknown) (no (unknown) (unknown) Review of Systems (units (unknown) date) unknown) (unknown) (no (unknown) (unknown) Rx Instructions: (units (unknown) date) unknown) (unknown) (no (unknown) (unknown) SKIN: Patient has a (unit s (unknown) date) small 2 cm burn on unknown) his right forearm that has blistered and (unknown) (no (unknown) (unknown) Signed By: (units (unk nown) date) unknown) (unknown) (no (unknown) (unknown) Smoking Status: (units (unknown) date) Never smoker unknown) (unknown) (no (unknown) (unknown) Social History (units (unknown) date) (Reviewed 04/13/20 @ unknown) 20:09 by Derick Crandall MD) (unknown) (no (unknown) (unknown) Sodium (137-145) (units (unknown) date) mmol/L unknown) (unknown) (no (unknown) (unknown) Sodium 140 (units (unk nown) date) (137-145) mmol/L unknown) (unknown) (no (unknown) (unknown) Source: patient, (units (unknown) date) EMS, RN notes unknown) reviewed and old records reviewed (unknown) (no (unknown) (unknown) Stated Complaint: (units (unknown) date) Trauma unknown) (unknown) (no (unknown) (unknown) Stop: 01/14/23 (units (unknown) date) 10:27 unknown) (unknown) (no (unknown) (unknown) Stop: 01/14/23 (units (unknown) date) 10:29 unknown) (unknown) (no (unknown) (unknown) Stop: 01/14/23 (units (unknown) date) 10:58 unknown) (unknown) (no (unknown) (unknown) Stop: 01/14/23 (units (unknown) date) 13:43 unknown) (unknown) (no (unknown) (unknown) Substance Use Type: (unit s (unknown) date) does not use unknown) (unknown) (no (unknown) (unknown) Syringe) 0.5 ml IM (units (unknown) date) .ONCE ONE unknown) (unknown) (no (unknown) (unknown) TK 1 TO 2 TS O Q 4 (units (unknown) date) TO 6 HOURS PRF PAIN unknown) (unknown) (no (unknown) (unknown) Temperature 97.4 F (units (unknown) date) L 01/14/23 10:22 unknown) (unknown) (no (unknown) (unknown) Temperature 97.4 F (units (unknown) date) L unknown) (unknown) (no (unknown) (unknown) Temperature (units (un known) date) unknown) (unknown) (no (unknown) (unknown) They also note that (unit s (unknown) date) they were called out unknown) for a wellness check yesterday they (unknown) (no (unknown) (unknown) This is a (units (unkno wn) date) 53-year-old male who unknown) appears intoxicated, he does have scabbing with a (unknown) (no (unknown) (unknown) This is a (units (unkn own) date) 53-year-old male unknown) with known history of alcohol abuse, insulin (unknown) (no (unknown) (unknown) Time Seen by (units (u nknown) date) Provider: 01/14/23 unknown) 10:26 (unknown) (no (unknown) (unknown) To sleep sinus (units (unknown) date) rhythm rate of 72 [place] unknown) 130 QRS of 98 QTC [address]. No acute ST (unknown) (no (unknown) (unknown) Total Bilirubin (units (unknown) date) (0.2-1.3) mg/dL unknown) (unknown) (no (unknown) (unknown) Total Bilirubin 0.4 (unit s (unknown) date) (0.2-1.3) mg/dL unknown) (unknown) (no (unknown) (unknown) Total Protein (units ( unknown) date) (6.3-8.2) g/dL unknown) (unknown) (no (unknown) (unknown) Total Protein 7.2 (units (unknown) date) (6.3-8.2) g/dL unknown) (unknown) (no (unknown) (unknown) Type and Screen (units (unknown) date) Stat unknown) (unknown) (no (unknown) (unknown) Urinalysis and (units (unknown) date) Microscopic Stat unknown) (unknown) (no (unknown) (unknown) Urine Drug Screen, (units (unknown) date) Rapid Stat unknown) (unknown) (no (unknown) (unknown) Vital Signs - 8 hr (units (unknown) date) unknown) (unknown) (no (unknown) (unknown) Vital Signs (units (un known) date) unknown) (unknown) (no (unknown) (unknown) Vital signs: (units (u nknown) date) unknown) (unknown) (no (unknown) (unknown) WAS (units (unkno wn) date) unknown) (unknown) (no (unknown) (unknown) WBC (4.5-11.0) (units (unknown) date) X103/uL unknown) (unknown) (no (unknown) (unknown) WBC 4.3 L (units (unkn own) date) (4.5-11.0) X103/uL unknown) (unknown) (no (unknown) (unknown) XR chest 1V Stat (units (unknown) date) unknown) (unknown) (no (unknown) (unknown) XR pelvis 1-2V Stat (unit s (unknown) date) unknown) (unknown) (no (unknown) (unknown) [Embedded Image Not (unit s (unknown) date) Available] unknown) (unknown) (no (unknown) (unknown) [From BETADINE] (units (unknown) date) FEELS LIKE unknown) (unknown) (no (unknown) (unknown) [SHELLFISH DERIVED] (unit s (unknown) date) LIKE IT unknown) (unknown) (no (unknown) (unknown) a small burn on his (units (unknown) date) right forearm and he unknown) has bruising his girlfriend told medics (unknown) (no (unknown) (unknown) alcohol intake (units (unknown) date) frequency: 0-2 unknown) drinks per day (unknown) (no (unknown) (unknown) allergy to iodine (units (unknown) date) which he did not unknown) tell us earlier. Was pretreated with (unknown) (no (unknown) (unknown) and when asked he (units (unknown) date) states he does want unknown) to kill himself when asked why he does not (unknown) (no (unknown) (unknown) answer. When asked (units (unknown) date) if he has a plan he unknown) does not give one. Medics a girlfriend (unknown) (no (unknown) (unknown) anything amiss in (units (unknown) date) the house but he had unknown) been found on the ground in the bathroom. (unknown) (no (unknown) (unknown) appears older with (units (unknown) date) healing skin unknown) underneath, warm and dry, no crepitus and (unknown) (no (unknown) (unknown) arrived. (units (unkno wn) date) unknown) (unknown) (no (unknown) (unknown) chest abdomen (units ( unknown) date) pelvis there was unknown) some delay as it was found patient has reported (unknown) (no (unknown) (unknown) chest, right upper (units (unknown) date) abdomen and right unknown) lower abdomen. (unknown) (no (unknown) (unknown) cyclobenzaprine 10 (units (unknown) date) mg tablet 10 mg PO unknown) TID PRN muscle spasm #15 04/13/20 (unknown) (no (unknown) (unknown) cyclobenzaprine 10 (units (unknown) date) mg tablet unknown) (unknown) (no (unknown) (unknown) dependent diabetes (units (unknown) date) and chronic pain unknown) with a pain pump in his left abdomen. Patie (unknown) (no (unknown) (unknown) do his injections (units (unknown) date) which he states are unknown) insulin. He states he has a pain pump in (unknown) (no (unknown) (unknown) drinks at least a (units (unknown) date) 5th daily, he denies unknown) tobacco or illicit. He states he did not (unknown) (no (unknown) (unknown) elevation or (units (u nknown) date) depression. unknown) (unknown) (no (unknown) (unknown) found blood in a (units (unknown) date) different location unknown) but the patient was not present at that (unknown) (no (unknown) (unknown) function at (units (un known) date) baseline at 0.42 unknown) normal electrolytes glucose is 254, AST ALT alk (unknown) (no (unknown) (unknown) gabapentin 300 mg (units (unknown) date) capsule 2 cap PO TID unknown) 07/27/18 07/27/18 (unknown) (no (unknown) (unknown) gabapentin 300 mg (units (unknown) date) capsule unknown) (unknown) (no (unknown) (unknown) gape, trachea is (units (unknown) date) midline, TM's are unknown) normal no hemotypanum, Nares are clear, no (unknown) (no (unknown) (unknown) ground there was (units (unknown) date) reportedly some unknown) glass at the scene and the medics state that (unknown) (no (unknown) (unknown) hest and abdomen (units (unknown) date) although it appears unknown) little bit older, and he has a burn on his (unknown) (no (unknown) (unknown) his belly. He did (units (unknown) date) make statements that unknown) he wanted to kill himself to the medics (unknown) (no (unknown) (unknown) his prior injuries (units (unknown) date) with chest and unknown) abdominal bruising, with CT head, C-spine and (unknown) (no (unknown) (unknown) injury, altered (units (unknown) date) mental status, neuro unknown) deficit, positive for recent EtOH. (unknown) (no (unknown) (unknown) last saw the (units (u nknown) date) patient on unknown) she noted that he bought a bottle of hard (unknown) (no (unknown) (unknown) leave on most (units ( unknown) date) painful area for up unknown) to 12 hrs (unknown) (no (unknown) (unknown) levothyroxine 100 (units (unknown) date) mcg tablet 1 tab PO unknown) DAILY 07/27/18 07/27/18 (unknown) (no (unknown) (unknown) levothyroxine 100 (units (unknown) date) mcg tablet unknown) (unknown) (no (unknown) (unknown) lidocaine 5 % (units ( unknown) date) topical patch 2 unknown) patch topical DAILY #15 ea 04/13/20 (unknown) (no (unknown) (unknown) lidocaine (units (unkn own) date) [Lidoderm] 5 % unknown) adhesive patch,medicated (unknown) (no (unknown) (unknown) liquor at that time (unit s (unknown) date) and there was only unknown) about a few mL left today when EMS (unknown) (no (unknown) (unknown) magnesium 1 tab PO (units (unknown) date) BEDTIME PRN stool unknown) softener 07/27/18 07/27/18 (unknown) (no (unknown) (unknown) magnesium 400 mg (units (unknown) date) tablet unknown) (unknown) (no (unknown) (unknown) methocarbamol 500 (units (unknown) date) mg tablet 1 tab PO unknown) Q4H PRN Spasms 07/27/18 07/27/18 (unknown) (no (unknown) (unknown) methocarbamol 500 (units (unknown) date) mg tablet unknown) (unknown) (no (unknown) (unknown) moving all his (units (unknown) date) extremities well. Is unknown) conversant but confused. Patient states he (unknown) (no (unknown) (unknown) negative. Patient (units (unknown) date) was CT scan unknown) secondary to intoxication unclear mechanism of (unknown) (no (unknown) (unknown) normal color and (units (unknown) date) temperature, normal unknown) range of motion of extremities with normal (unknown) (no (unknown) (unknown) nt states he does (units (unknown) date) not know who he is unknown) aware he is. He is able to give his name (unknown) (no (unknown) (unknown) obtained is unclear (unit s (unknown) date) what exactly unknown) occurred. Patient was called out as a modified (unknown) (no (unknown) (unknown) occlusion, No bony (units (unknown) date) tenderness unknown) (unknown) (no (unknown) (unknown) ondansetron HCl 4 (units (unknown) date) mg tablet 4 mg PO unknown) Q6H PRN nausea and 04/13/20 (unknown) (no (unknown) (unknown) ondansetron HCl (units (unknown) date) [Zofran] 4 mg tablet unknown) (unknown) (no (unknown) (unknown) oxycodone 10 mg (units (unknown) date) tablet 10 mg PO Q6H unknown) PRN pain #16 tabs 04/13/20 (unknown) (no (unknown) (unknown) oxycodone 10 mg (units (unknown) date) tablet unknown) (unknown) (no (unknown) (unknown) oxycodone 5 mg (units (unknown) date) tablet 1 - 2 tab PO unknown) Q4-6H PRN pain 07/27/18 07/27/18 (unknown) (no (unknown) (unknown) oxycodone 5 mg (units (unknown) date) tablet unknown) (unknown) (no (unknown) (unknown) pelvic rock is (units (unknown) date) negative, patient unknown) has device in the left lateral abdomen. (unknown) (no (unknown) (unknown) penicillin G (units (u nknown) date) [PENICILLIN G] unknown) Allergy Unknown LEFT EAR Verified 07/27/18 10:10 (unknown) (no (unknown) (unknown) phos are [id number] and (units (unknown) date) 146 with a negative unknown) bilirubin and lipase of 109. EKG shows a (unknown) (no (unknown) (unknown) povidone-iodine (units (unknown) date) Allergy Unknown unknown) 'SKIN Verified 07/27/18 10:10 (unknown) (no (unknown) (unknown) redirectable (units (u nknown) date) although he keeps unknown) saying he wants to get out of the bed. He has (unknown) (no (unknown) (unknown) right forearm that (units (unknown) date) also appears little unknown) bit older. Patient was found on the (unknown) (no (unknown) (unknown) septal hematoma, no (unit s (unknown) date) dental or oral unknown) injury, airway is normal and with normal (unknown) (no (unknown) (unknown) shellfish derived (units (unknown) date) Allergy Unknown unknown) 'SKIN FELT Verified 07/27/18 10:10 (unknown) (no (unknown) (unknown) sinus rhythm no (units (unknown) date) acute ST changes. unknown) Initial chest x-ray and pelvic x-ray is (unknown) (no (unknown) (unknown) soap [From (units (unk nown) date) BETADINE] Allergy unknown) Unknown 'SKIN Verified 07/27/18 10:10 (unknown) (no (unknown) (unknown) some blood at the (units (unknown) date) scene in a different unknown) location. Patient had labs, imaging (unknown) (no (unknown) (unknown) some broken glass, (units (unknown) date) medics state the unknown) glass was cleaned up they did not see (unknown) (no (unknown) (unknown) sounds are normal (units (unknown) date) no crackles, wheezes unknown) or rales (unknown) (no (unknown) (unknown) speech appears (units (unknown) date) intoxicated but is unknown) conversant. (unknown) (no (unknown) (unknown) superficial lack of (unit s (unknown) date) the right forehead, unknown) he has some bruising of his anterior c (unknown) (no (unknown) (unknown) tabs (units (unkno wn) date) unknown) (unknown) (no (unknown) (unknown) tendon exam, 2+ (units (unknown) date) pulses in all four unknown) extremities (unknown) (no (unknown) (unknown) that is bruising on (unit s (unknown) date) his left abdomen is unknown) from injections but onto his chest and (unknown) (no (unknown) (unknown) they were there the (unit s (unknown) date) day before patient unknown) was not present at home but there was (unknown) (no (unknown) (unknown) time. Patient does (units (unknown) date) not recall what unknown) trauma occurred. The somewhat repetitive. (unknown) (no (unknown) (unknown) trauma. (units (unkno wn) date) unknown) (unknown) (no (unknown) (unknown) upper abdomen she (units (unknown) date) is unsure. Patient unknown) was found at home in the bathroom with (unknown) (no (unknown) (unknown) what appears to be (units (unknown) date) scabbed superficial unknown) laceration over his right forehead he has (unknown) (no (unknown) (unknown) when he is (units (unk nown) date) registered. Patient unknown) is confused but follows commands he is (unknown) (no (unknown) (unknown) without decubitus. (units (unknown) date) Patient has unknown) ecchymosis that is about 4 cm on his anterior Result panel 226 (unknown) (no date) (unknown) (unknown) Negative (units (unkn own) unknown) (unknown) (no date) (unknown) (unknown) Normal (units (unkn own) unknown) (unknown) (no date) (unknown) (unknown) Positive (units (unkn own) unknown) Result panel 227 (unknown) (no date) (unknown) (unknown) 1.0 e.u./dl (unkn own) (unknown) (no date) (unknown) (unknown) 1.010 (units (unkn own) unknown) (unknown) (no date) (unknown) (unknown) 2 g/dl (unkn own) (unknown) (no date) (unknown) (unknown) 6.5 (units (unkn own) unknown) (unknown) (no date) (unknown) (unknown) CLEAR (units (unkn own) unknown) (unknown) (no date) (unknown) (unknown) Cult Not (units (unkn own) Indicated unknown) (unknown) (no date) (unknown) (unknown) Microscopic (units (u nknown) Normal unknown) (unknown) (no date) (unknown) (unknown) NEGATIVE (units (unkn own) unknown) (unknown) (no date) (unknown) (unknown) None Seen (units (unk nown) unknown) (unknown) (no date) (unknown) (unknown) None Seen (units (unk nown) unknown) (unknown) (no date) (unknown) (unknown) YELLOW (units (unkn own) unknown) (unknown) (no date) (unknown) (unknown) YELLOW (units (unkn own) unknown) Result panel 228 (unknown) (no date) (unknown) (unknown) Negative (units (unkn own) unknown) (unknown) (no date) (unknown) (unknown) Negative (units (unkn own) unknown) Result panel 229 (unknown) (no (unknown) (unknown) (no value) (units (unk nown) date) unknown) (unknown) (no (unknown) (unknown) (U-100) Insulin) (units (unknown) date) unknown) (unknown) (no (unknown) (unknown) 0.4 mg PO DAILY (units (unknown) date) unknown) (unknown) (no (unknown) (unknown) [id number] (units (unkno wn) date) unknown) (unknown) (no (unknown) (unknown) 01/14/23 01/14/23 (units (unknown) date) 01/14/23 Range/Units unknown) (unknown) (no (unknown) (unknown) 01/14/23 10:27 (units (unknown) date) unknown) (unknown) (no (unknown) (unknown) 01/14/23 10:29 (units (unknown) date) unknown) (unknown) (no (unknown) (unknown) 01/14/23 10:35 (units (unknown) date) unknown) (unknown) (no (unknown) (unknown) 01/14/23 10:45 (units (unknown) date) unknown) (unknown) (no (unknown) (unknown) 01/14/23 11:17 (units (unknown) date) unknown) (unknown) (no (unknown) (unknown) 01/14/23 11:23 (units (unknown) date) unknown) (unknown) (no (unknown) (unknown) 01/14/23 14:09 (units (unknown) date) unknown) (unknown) (no (unknown) (unknown) 01/14/23 15:25 (units (unknown) date) unknown) (unknown) (no (unknown) (unknown) 01/14/23 (units (unkno wn) date) unknown) (unknown) (no (unknown) (unknown) 100 mg PO DAILY (units (unknown) date) unknown) (unknown) (no (unknown) (unknown) 10:22 01/14/23 (units (unknown) date) unknown) (unknown) (no (unknown) (unknown) 10:25 01/14/23 (units (unknown) date) unknown) (unknown) (no (unknown) (unknown) 10:30 (units (unkno wn) date) unknown) (unknown) (no (unknown) (unknown) 10:32 01/14/23 (units (unknown) date) unknown) (unknown) (no (unknown) (unknown) 10:45 10:45 10:45 (units (unknown) date) unknown) (unknown) (no (unknown) (unknown) 10:45 11:23 13:48 (units (unknown) date) unknown) (unknown) (no (unknown) (unknown) 11:00 (units (unkno wn) date) unknown) (unknown) (no (unknown) (unknown) 11:24 01/14/23 (units (unknown) date) unknown) (unknown) (no (unknown) (unknown) 11:30 (units (unkno wn) date) unknown) (unknown) (no (unknown) (unknown) 11:31 01/14/23 (units (unknown) date) unknown) (unknown) (no (unknown) (unknown) 11:50 01/14/23 (units (unknown) date) unknown) (unknown) (no (unknown) (unknown) 11:50 (units (unkno wn) date) unknown) (unknown) (no (unknown) (unknown) 12:05 01/14/23 (units (unknown) date) unknown) (unknown) (no (unknown) (unknown) 12:05 (units (unkno wn) date) unknown) (unknown) (no (unknown) (unknown) 12:15 01/14/23 (units (unknown) date) unknown) (unknown) (no (unknown) (unknown) 12:30 01/14/23 (units (unknown) date) unknown) (unknown) (no (unknown) (unknown) 12:30 (units (unkno wn) date) unknown) (unknown) (no (unknown) (unknown) 12:45 01/14/23 (units (unknown) date) unknown) (unknown) (no (unknown) (unknown) 12:45 (units (unkno wn) date) unknown) (unknown) (no (unknown) (unknown) 13:00 01/14/23 (units (unknown) date) unknown) (unknown) (no (unknown) (unknown) 13:01 01/14/23 (units (unknown) date) unknown) (unknown) (no (unknown) (unknown) 13:01 (units (unkno wn) date) unknown) (unknown) (no (unknown) (unknown) 13:15 01/14/23 (units (unknown) date) unknown) (unknown) (no (unknown) (unknown) 13:30 01/14/23 (units (unknown) date) unknown) (unknown) (no (unknown) (unknown) 13:30 (units (unkno wn) date) unknown) (unknown) (no (unknown) (unknown) 13:49 01/14/23 (units (unknown) date) unknown) (unknown) (no (unknown) (unknown) 13:49 (units (unkno wn) date) unknown) (unknown) (no (unknown) (unknown) 14:00 01/14/23 (units (unknown) date) unknown) (unknown) (no (unknown) (unknown) 14:09 14:09 15:25 (units (unknown) date) unknown) (unknown) (no (unknown) (unknown) 14:26 01/14/23 (units (unknown) date) unknown) (unknown) (no (unknown) (unknown) 14:26 (units (unkno wn) date) unknown) (unknown) (no (unknown) (unknown) 14:30 01/14/23 (units (unknown) date) unknown) (unknown) (no (unknown) (unknown) 15:00 (units (unkno wn) date) unknown) (unknown) (no (unknown) (unknown) 15:02 01/14/23 (units (unknown) date) unknown) (unknown) (no (unknown) (unknown) 15:30 (units (unkno wn) date) unknown) (unknown) (no (unknown) (unknown) 16:00 01/14/23 (units (unknown) date) unknown) (unknown) (no (unknown) (unknown) 16:30 (units (unkno wn) date) unknown) (unknown) (no (unknown) (unknown) 20 mg PO BID (units (u nknown) date) unknown) (unknown) (no (unknown) (unknown) 20 mg PO DAILY (units (unknown) date) unknown) (unknown) (no (unknown) (unknown) 20 unit SUBCUT (units (unknown) date) BEDTIME unknown) (unknown) (no (unknown) (unknown) 2016 white count of (unit s (unknown) date) 4.3 normal platelets unknown) at 296. Coags are negative, renal (unknown) (no (unknown) (unknown) 4 extremities (units ( unknown) date) moving, cranial unknown) nerves II through XII are intact, GCS is 15 (unknown) (no (unknown) (unknown) 40 mg PO BEDTIME (units (unknown) date) unknown) (unknown) (no (unknown) (unknown) ABG/GI: Nontender, (units (unknown) date) soft, normal bowel unknown) sounds, no distention, no organomegaly, (unknown) (no (unknown) (unknown) ADMINISTER 2 TO 10 (units (unknown) date) UNITS UNDER THE SKIN unknown) BEFORE MEALS AND AT BEDTIME (unknown) (no (unknown) (unknown) ADMINISTER 20 UNITS (unit s (unknown) date) UNDER THE SKIN EVERY unknown) EVENING (unknown) (no (unknown) (unknown) AGE 12YR (units (unkno wn) date) unknown) (unknown) (no (unknown) (unknown) ALT (<50) IU/L (units (unknown) date) unknown) (unknown) (no (unknown) (unknown) ALT 88 H (<50) IU/L (unit s (unknown) date) unknown) (unknown) (no (unknown) (unknown) APTT (26-36) (units (u nknown) date) SECONDS unknown) (unknown) (no (unknown) (unknown) APTT 34 (26-36) (units (unknown) date) SECONDS unknown) (unknown) (no (unknown) (unknown) AST (17-59) IU/L (units (unknown) date) unknown) (unknown) (no (unknown) (unknown) AST 87 H (17-59) (units (unknown) date) IU/L unknown) (unknown) (no (unknown) (unknown) Acetaminophen (units ( unknown) date) (Acetaminophen 325 unknown) Mg Tablet) 650 mg PO NOW ONE (unknown) (no (unknown) (unknown) Age/Sex: 53 / M (units (unknown) date) unknown) (unknown) (no (unknown) (unknown) Albumin (3.5-5.0) (units (unknown) date) g/dL unknown) (unknown) (no (unknown) (unknown) Albumin 4.0 (units (un known) date) (3.5-5.0) g/dL unknown) (unknown) (no (unknown) (unknown) Albumin/Globulin (units (unknown) date) Ratio (1.0-2.8) unknown) (unknown) (no (unknown) (unknown) Albumin/Globulin (units (unknown) date) Ratio 1.3 (1.0-2.8) unknown) (unknown) (no (unknown) (unknown) Alkaline (units (unkno wn) date) Phosphatase (38-126) unknown) U/L (unknown) (no (unknown) (unknown) Alkaline (units (unkno wn) date) Phosphatase 146 H unknown) (38-126) U/L (unknown) (no (unknown) (unknown) Allergies (units (unkn own) date) unknown) (unknown) (no (unknown) (unknown) Allergy/AdvReac (units (unknown) date) Type Severity unknown) Reaction Status Date / Time (unknown) (no (unknown) (unknown) Antibody Screen (units (unknown) date) Negative unknown) (unknown) (no (unknown) (unknown) Antibody Screen (units (unknown) date) unknown) (unknown) (no (unknown) (unknown) Attestation: I (units (unknown) date) personally reviewed unknown) and interpreted this ECG as follows: (unknown) (no (unknown) (unknown) BACK: No CVA (units (u nknown) date) tenderness, no unknown) vertebral tenderness, no step-off's, no crepitus (unknown) (no (unknown) (unknown) BUN (9-20) mg/dL (units (unknown) date) unknown) (unknown) (no (unknown) (unknown) BUN 8 L (9-20) (units (unknown) date) mg/dL unknown) (unknown) (no (unknown) (unknown) BUN/Creatinine (units (unknown) date) Ratio (6-22) unknown) (unknown) (no (unknown) (unknown) BUN/Creatinine (units (unknown) date) Ratio 19.0 (6-22) unknown) (unknown) (no (unknown) (unknown) BURNING' (units (unkno wn) date) unknown) (unknown) (no (unknown) (unknown) Baso # (Auto) (units ( unknown) date) (0-100) /uL unknown) (unknown) (no (unknown) (unknown) Baso # (Auto) 100 (units (unknown) date) (0-100) /uL unknown) (unknown) (no (unknown) (unknown) Baso % (Auto) (0-2) (unit s (unknown) date) % unknown) (unknown) (no (unknown) (unknown) Baso % (Auto) 1.4 (units (unknown) date) (0-2) % unknown) (unknown) (no (unknown) (unknown) Benadryl and (units (u nknown) date) Solu-Medrol as he unknown) was felt stable. CT imaging of the brain shows (unknown) (no (unknown) (unknown) Blood Pressure (units (unknown) date) 133/92 H unknown) (unknown) (no (unknown) (unknown) Blood Pressure (units (unknown) date) 135/88 144/96 H unknown) (unknown) (no (unknown) (unknown) Blood Pressure (units (unknown) date) 137/72 106/52 L unknown) (unknown) (no (unknown) (unknown) Blood Pressure (units (unknown) date) 146/82 H unknown) (unknown) (no (unknown) (unknown) Blood Pressure (units (unknown) date) 146/90 H unknown) (unknown) (no (unknown) (unknown) Blood Pressure (units (unknown) date) 148/91 H 137/84 unknown) (unknown) (no (unknown) (unknown) Blood Pressure (units (unknown) date) 149/94 H 01/14/23 unknown) 10:22 (unknown) (no (unknown) (unknown) Blood Pressure (units (unknown) date) 149/94 H unknown) (unknown) (no (unknown) (unknown) Blood Pressure (units (unknown) date) 151/87 H unknown) (unknown) (no (unknown) (unknown) Blood Pressure (units (unknown) date) 155/97 H unknown) (unknown) (no (unknown) (unknown) Blood Pressure (units (unknown) date) 160/97 H unknown) (unknown) (no (unknown) (unknown) Blood Pressure (units (unknown) date) 163/88 H unknown) (unknown) (no (unknown) (unknown) Blood Pressure (units (unknown) date) 164/106 H 141/98 H unknown) (unknown) (no (unknown) (unknown) Blood Pressure (units (unknown) date) 172/88 H unknown) (unknown) (no (unknown) (unknown) Blood Pressure (units (unknown) date) 181/95 H unknown) (unknown) (no (unknown) (unknown) Blood Pressure (units (unknown) date) unknown) (unknown) (no (unknown) (unknown) Blood Type O (units (u nknown) date) Positive unknown) (unknown) (no (unknown) (unknown) Blood Type (units (unk nown) date) unknown) (unknown) (no (unknown) (unknown) COVID19 -Nasal (units (unknown) date) RAPID Stat unknown) (unknown) (no (unknown) (unknown) CT cervical spine (units (unknown) date) wo con Stat unknown) (unknown) (no (unknown) (unknown) CT chest abd pel w (units (unknown) date) con Stat unknown) (unknown) (no (unknown) (unknown) CT head/brain wo (units (unknown) date) con Stat unknown) (unknown) (no (unknown) (unknown) CVS: Heart sounds (units (unknown) date) are normal, no unknown) murmur noted, No JVD. (unknown) (no (unknown) (unknown) Calcium (8.4-10.2) (units (unknown) date) mg/dL unknown) (unknown) (no (unknown) (unknown) Calcium 8.5 (units (un known) date) (8.4-10.2) mg/dL unknown) (unknown) (no (unknown) (unknown) Carbon Dioxide (units (unknown) date) (22-32) mmol/L unknown) (unknown) (no (unknown) (unknown) Carbon Dioxide 30 (units (unknown) date) (22-32) mmol/L unknown) (unknown) (no (unknown) (unknown) Chief Complaint: (units (unknown) date) Trauma unknown) (unknown) (no (unknown) (unknown) Chloride (98-107) (units (unknown) date) mmol/L unknown) (unknown) (no (unknown) (unknown) Chloride 100 (units (u nknown) date) (98-107) mmol/L unknown) (unknown) (no (unknown) (unknown) Chronic low back (units (unknown) date) pain unknown) (unknown) (no (unknown) (unknown) Clinical (units (unkno wn) date) Impression: unknown) (unknown) (no (unknown) (unknown) Complete Blood (units (unknown) date) Count AUTO DIFF Stat unknown) (unknown) (no (unknown) (unknown) Comprehensive (units ( unknown) date) Metabolic Panel Stat unknown) (unknown) (no (unknown) (unknown) 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 - (units (unknown) date) 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) (unknown) (no (unknown) (unknown) Course (units (unkno wn) date) unknown) (unknown) (no (unknown) (unknown) Creatinine (units (unk nown) date) (0.66-1.25) mg/dL unknown) (unknown) (no (unknown) (unknown) Creatinine 0.42 L (units (unknown) date) (0.66-1.25) mg/dL unknown) (unknown) (no (unknown) (unknown) : 1970 (units (unknown) date) Acct:[id number] unknown) (unknown) (no (unknown) (unknown) Date of Service: (units (unknown) date) 01/14/23 unknown) (unknown) (no (unknown) (unknown) Departure (units (unkn own) date) unknown) (unknown) (no (unknown) (unknown) Diphenhydramine HCl (unit s (unknown) date) (Diphenhydramine 50 unknown) Mg/Ml Vial) 50 mg IV NOW ONE (unknown) (no (unknown) (unknown) Diphtheria/Tetanus/ (unit s (unknown) date) Acell Pertussis unknown) (Tet,Diph,Pertuss(Ac ell),Vac/Pf 0.5 Ml (unknown) (no (unknown) (unknown) Discharge Plan (units (unknown) date) unknown) (unknown) (no (unknown) (unknown) Discontinued (units (u nknown) date) Medications unknown) (unknown) (no (unknown) (unknown) Documented By: AT (units (unknown) date) unknown) (unknown) (no (unknown) (unknown) Documented By: KB (units (unknown) date) unknown) (unknown) (no (unknown) (unknown) ECG Data (units (unkno wn) date) unknown) (unknown) (no (unknown) (unknown) ED Orders (units (unkn own) date) unknown) (unknown) (no (unknown) (unknown) EKG-12 Lead Stat (units (unknown) date) unknown) (unknown) (no (unknown) (unknown) ENT: Patient has (units (unknown) date) superficial scabbed unknown) laceration over his right brow, does not (unknown) (no (unknown) (unknown) ER Physician: (units ( unknown) date) Bridgett Garrido D.O. unknown) (unknown) (no (unknown) (unknown) EXT: Atraumatic (units (unknown) date) other than skin unknown) changes. hips are nontender, no pedal edema, (unknown) (no (unknown) (unknown) EYES: PERRLA, EOMI (units (unknown) date) unknown) (unknown) (no (unknown) (unknown) Emergency Report (units (unknown) date) unknown) (unknown) (no (unknown) (unknown) Eos # (Auto) (units (u nknown) date) (0-450) /uL unknown) (unknown) (no (unknown) (unknown) Eos # (Auto) 100 (units (unknown) date) (0-450) /uL unknown) (unknown) (no (unknown) (unknown) Eos % (Auto) (2-4) (units (unknown) date) % unknown) (unknown) (no (unknown) (unknown) Eos % (Auto) 2.2 (units (unknown) date) (2-4) % unknown) (unknown) (no (unknown) (unknown) Estimated GFR > 60 (units (unknown) date) (>60) mL/min unknown) (unknown) (no (unknown) (unknown) Estimated GFR (>60) (unit s (unknown) date) mL/min unknown) (unknown) (no (unknown) (unknown) Ethanol (ETOH) Stat (unit s (unknown) date) unknown) (unknown) (no (unknown) (unknown) Ethyl Alcohol ( - (units (unknown) date) 10) mg/dL unknown) (unknown) (no (unknown) (unknown) Ethyl Alcohol 308 H (unit s (unknown) date) ( - 10) mg/dL unknown) (unknown) (no (unknown) (unknown) Exam (units (unkno wn) date) unknown) (unknown) (no (unknown) (unknown) FEELS LIKE (units (unk nown) date) unknown) (unknown) (no (unknown) (unknown) GEN: C-collar was (units (unknown) date) placed by EMS in the unknown) field but patient would not keep it on. (unknown) (no (unknown) (unknown) General (units (unkno wn) date) unknown) (unknown) (no (unknown) (unknown) Globulin (1.7-4.1) (units (unknown) date) g/dL unknown) (unknown) (no (unknown) (unknown) Globulin 3.2 (units (u nknown) date) (1.7-4.1) g/dL unknown) (unknown) (no (unknown) (unknown) Glucose (70-100) (units (unknown) date) mg/dL unknown) (unknown) (no (unknown) (unknown) Glucose 254 H (units ( unknown) date) (70-100) mg/dL unknown) (unknown) (no (unknown) (unknown) Glucose POC 268 (units (unknown) date) unknown) (unknown) (no (unknown) (unknown) HEAD: No evidence (units (unknown) date) of trauma, no unknown) raccoon/Johnson sign. (unknown) (no (unknown) (unknown) HEARING (units (unkno wn) date) unknown) (unknown) (no (unknown) (unknown) HPI - Trauma (units (u nknown) date) unknown) (unknown) (no (unknown) (unknown) HPI narrative: (units (unknown) date) unknown) (unknown) (no (unknown) (unknown) Hct (41-53) % (units ( unknown) date) unknown) (unknown) (no (unknown) (unknown) Hct 36.9 L (41-53) (units (unknown) date) % unknown) (unknown) (no (unknown) (unknown) Hgb (13.5-17.5) (units (unknown) date) g/dL unknown) (unknown) (no (unknown) (unknown) Hgb 12.3 L (units (unk nown) date) (13.5-17.5) g/dL unknown) (unknown) (no (unknown) (unknown) History of Present (units (unknown) date) Illness unknown) (unknown) (no (unknown) (unknown) Home Medications (units (unknown) date) unknown) (unknown) (no (unknown) (unknown) INR (0.9-1.3) (units ( unknown) date) unknown) (unknown) (no (unknown) (unknown) INR 1.0 (0.9-1.3) (units (unknown) date) unknown) (unknown) (no (unknown) (unknown) Initial Vital Signs (unit s (unknown) date) unknown) (unknown) (no (unknown) (unknown) Initial Vital (units ( unknown) date) Signs: unknown) (unknown) (no (unknown) (unknown) Interpretation: (units (unknown) date) unknown) (unknown) (no (unknown) (unknown) [facility] (units (unknown) date) [address] unknown) [place] [address] (unknown) (no (unknown) (unknown) LOSS AT (units (unkno wn) date) unknown) (unknown) (no (unknown) (unknown) Lab Data (units (unkno wn) date) unknown) (unknown) (no (unknown) (unknown) Lab Results (units (un known) date) unknown) (unknown) (no (unknown) (unknown) Labs show an ETOH (units (unknown) date) of 308, patient has unknown) a hemoglobin of 12 baseline compared to (unknown) (no (unknown) (unknown) Labs: (units (unkno wn) date) unknown) (unknown) (no (unknown) (unknown) Lactate (0.7-2.1) (units (unknown) date) mmol/L unknown) (unknown) (no (unknown) (unknown) Lactate (Lactic (units (unknown) date) Acid) Stat unknown) (unknown) (no (unknown) (unknown) Lactate 2.1 1.9 (units (unknown) date) (0.7-2.1) mmol/L unknown) (unknown) (no (unknown) (unknown) Last Admin: (units (un known) date) 01/14/23 10:42 Dose: unknown) 0.5 mg (unknown) (no (unknown) (unknown) Last Admin: (units (un known) date) 01/14/23 11:11 Dose: unknown) 50 mg (unknown) (no (unknown) (unknown) Last Admin: (units (un known) date) 01/14/23 11:12 Dose: unknown) 125 mg (unknown) (no (unknown) (unknown) Last Admin: (units (un known) date) 01/14/23 14:28 Dose: unknown) 260 mg (unknown) (no (unknown) (unknown) Last Admin: (units (un known) date) 01/14/23 14:29 Dose: unknown) 650 mg (unknown) (no (unknown) (unknown) Last Admin: (units (un known) date) 01/14/23 15:09 Dose: unknown) 0.5 ml (unknown) (no (unknown) (unknown) Limitations: no (units (unknown) date) limitations unknown) (unknown) (no (unknown) (unknown) Lipase (23-300) U/L (unit s (unknown) date) unknown) (unknown) (no (unknown) (unknown) Lipase 109 (23-300) (unit s (unknown) date) U/L unknown) (unknown) (no (unknown) (unknown) Lipase Stat (units (un known) date) unknown) (unknown) (no (unknown) (unknown) Lorazepam (units (unkn own) date) (Lorazepam 2 Mg/Ml unknown) Inj) 0.5 mg IV NOW ONE (unknown) (no (unknown) (unknown) Lorazepam (units (unkn own) date) (Lorazepam 2 Mg/Ml unknown) Inj) 0.5 mg IV Q2HR PRN (unknown) (no (unknown) (unknown) Lymph # (Auto) (units (unknown) date) (8315-8248) /uL unknown) (unknown) (no (unknown) (unknown) Lymph # (Auto) 1700 (unit s (unknown) date) (0733-7370) /uL unknown) (unknown) (no (unknown) (unknown) Lymph % (Auto) (units (unknown) date) (25-40) % unknown) (unknown) (no (unknown) (unknown) Lymph % (Auto) 39.1 (unit s (unknown) date) (25-40) % unknown) (unknown) (no (unknown) (unknown) MCH (26-34) PG (units (unknown) date) unknown) (unknown) (no (unknown) (unknown) MCH 32.5 (26-34) PG (unit s (unknown) date) unknown) (unknown) (no (unknown) (unknown) MCHC (30-36) % (units (unknown) date) unknown) (unknown) (no (unknown) (unknown) MCHC 33.5 (30-36) % (unit s (unknown) date) unknown) (unknown) (no (unknown) (unknown) MCV (80-100) fL (units (unknown) date) unknown) (unknown) (no (unknown) (unknown) MCV 97.1 (80-100) (units (unknown) date) fL unknown) (unknown) (no (unknown) (unknown) MDM - Trauma (units (u nknown) date) unknown) (unknown) (no (unknown) (unknown) MDM Narrative (units ( unknown) date) unknown) (unknown) (no (unknown) (unknown) Medical History (units (unknown) date) (Updated 01/14/23 @ unknown) 16:59 by Bridgett Garrido DO) (unknown) (no (unknown) (unknown) Medical decision (units (unknown) date) making narrative: unknown) (unknown) (no (unknown) (unknown) Medication (units (unk nown) date) Instructions unknown) Recorded Confirmed (unknown) (no (unknown) (unknown) Methylprednisolone (units (unknown) date) (Methylprednisolone unknown) 125 Mg/2 Ml Vial) 125 mg IV NOW ONE (unknown) (no (unknown) (unknown) Micro UA Comment (units (unknown) date) Microscopic normal unknown) (unknown) (no (unknown) (unknown) Micro UA Comment (units (unknown) date) unknown) (unknown) (no (unknown) (unknown) Mode of arrival: (units (unknown) date) EMS unknown) (unknown) (no (unknown) (unknown) Pender # (Auto) (units ( unknown) date) (0-900) /uL unknown) (unknown) (no (unknown) (unknown) Pender # (Auto) 600 (units (unknown) date) (0-900) /uL unknown) (unknown) (no (unknown) (unknown) Pender % (Auto) (units ( unknown) date) (3-14) % unknown) (unknown) (no (unknown) (unknown) Pender % (Auto) 14.9 (units (unknown) date) H (3-14) % unknown) (unknown) (no (unknown) (unknown) NECK: Nontender, (units (unknown) date) painless range of unknown) motion, trachea midline (unknown) (no (unknown) (unknown) NEURO: Oriented (units (unknown) date) AOx3, neuro is unknown) grossly intact, sensation and motor is normal all (unknown) (no (unknown) (unknown) Narrative: (units (unk nown) date) unknown) (unknown) (no (unknown) (unknown) Neut # (Auto) (units ( unknown) date) (5453-4939) /uL unknown) (unknown) (no (unknown) (unknown) Neut # (Auto) 1800 (units (unknown) date) (3115-1682) /uL unknown) (unknown) (no (unknown) (unknown) Neut % (Auto) (units ( unknown) date) (50-75) % unknown) (unknown) (no (unknown) (unknown) Neut % (Auto) 42.4 (units (unknown) date) L (50-75) % unknown) (unknown) (no (unknown) (unknown) No Action (units (unkn own) date) unknown) (unknown) (no (unknown) (unknown) Nontender, (units (unk nown) date) incisions healed. unknown) (unknown) (no (unknown) (unknown) Ordered: (units (unkno wn) date) unknown) (unknown) (no (unknown) (unknown) Orders (units (unkno wn) date) unknown) (unknown) (no (unknown) (unknown) Oxygen Delivery (units (unknown) date) Method Room Air unknown) 01/14/23 10:22 (unknown) (no (unknown) (unknown) Oxygen Delivery (units (unknown) date) Method Room Air Room unknown) Air (unknown) (no (unknown) (unknown) Oxygen Delivery (units (unknown) date) Method Room Air unknown) (unknown) (no (unknown) (unknown) Oxygen Delivery (units (unknown) date) Method unknown) (unknown) (no (unknown) (unknown) PRN Reason: Anxiety (unit s (unknown) date) unknown) (unknown) (no (unknown) (unknown) PSYCH: Normal mood (units (unknown) date) and affect unknown) (unknown) (no (unknown) (unknown) PT (10.1-12.7) (units (unknown) date) SECONDS unknown) (unknown) (no (unknown) (unknown) PT 11.2 (10.1-12.7) (unit s (unknown) date) SECONDS unknown) (unknown) (no (unknown) (unknown) PTT Partial (units (un known) date) Thromboplastin Rodolfo unknown) Stat (unknown) (no (unknown) (unknown) Patient Comments: (units (unknown) date) unknown) (unknown) (no (unknown) (unknown) Patient History (units (unknown) date) unknown) (unknown) (no (unknown) (unknown) Patient appears in (units (unknown) date) moderate distress. unknown) Patient is confused has slightly slurred (unknown) (no (unknown) (unknown) Patient denies (units (unknown) date) pain, no shortness unknown) of breath, no GI or urinary symptoms. He is (unknown) (no (unknown) (unknown) Patient had (units (un known) date) Solu-Medrol unknown) methylprednisolone for pretreatment for CT, he had (unknown) (no (unknown) (unknown) Patient: (units (unkno wn) date) Octavio Romo MR#: unknown) M00 (unknown) (no (unknown) (unknown) Phenobarbital (units ( unknown) date) (Phenobarbital 65 unknown) Mg/Ml Vial) 260 mg IV NOW ONE (unknown) (no (unknown) (unknown) Plt Count (150-400) (unit s (unknown) date) X103/uL unknown) (unknown) (no (unknown) (unknown) Plt Count 296 (units ( unknown) date) (150-400) X103/uL unknown) (unknown) (no (unknown) (unknown) Point of Care (units ( unknown) date) Testing unknown) (unknown) (no (unknown) (unknown) Positive Nexus (units (unknown) date) criteria, there is unknown) no midline line tenderness, distracting (unknown) (no (unknown) (unknown) Potassium (3.4-5.1) (unit s (unknown) date) mmol/L unknown) (unknown) (no (unknown) (unknown) Potassium 3.9 (units ( unknown) date) (3.4-5.1) mmol/L unknown) (unknown) (no (unknown) (unknown) Prescriptions: (units (unknown) date) unknown) (unknown) (no (unknown) (unknown) Prothrombin Time (units (unknown) date) INR Stat unknown) (unknown) (no (unknown) (unknown) Pulse Oximetry 93 (units (unknown) date) 93 unknown) (unknown) (no (unknown) (unknown) Pulse Oximetry 93 (units (unknown) date) 95 unknown) (unknown) (no (unknown) (unknown) Pulse Oximetry 93 (units (unknown) date) unknown) (unknown) (no (unknown) (unknown) Pulse Oximetry 94 (units (unknown) date) 91 unknown) (unknown) (no (unknown) (unknown) Pulse Oximetry 94 (units (unknown) date) 96 unknown) (unknown) (no (unknown) (unknown) Pulse Oximetry 94 (units (unknown) date) unknown) (unknown) (no (unknown) (unknown) Pulse Oximetry 95 (units (unknown) date) 94 unknown) (unknown) (no (unknown) (unknown) Pulse Oximetry 95 (units (unknown) date) 97 unknown) (unknown) (no (unknown) (unknown) Pulse Oximetry 95 (units (unknown) date) unknown) (unknown) (no (unknown) (unknown) Pulse Oximetry 96 (units (unknown) date) unknown) (unknown) (no (unknown) (unknown) Pulse Oximetry 97 (units (unknown) date) 96 unknown) (unknown) (no (unknown) (unknown) Pulse Oximetry 97 (units (unknown) date) unknown) (unknown) (no (unknown) (unknown) Pulse Oximetry 99 (units (unknown) date) 01/14/23 10:22 unknown) (unknown) (no (unknown) (unknown) Pulse Oximetry 99 (units (unknown) date) 96 97 unknown) (unknown) (no (unknown) (unknown) Pulse Rate 74 72 (units (unknown) date) unknown) (unknown) (no (unknown) (unknown) Pulse Rate 74 (units ( unknown) date) unknown) (unknown) (no (unknown) (unknown) Pulse Rate 75 76 (units (unknown) date) unknown) (unknown) (no (unknown) (unknown) Pulse Rate 76 82 (units (unknown) date) unknown) (unknown) (no (unknown) (unknown) Pulse Rate 78 80 (units (unknown) date) unknown) (unknown) (no (unknown) (unknown) Pulse Rate 80 79 (units (unknown) date) unknown) (unknown) (no (unknown) (unknown) Pulse Rate 80 (units ( unknown) date) unknown) (unknown) (no (unknown) (unknown) Pulse Rate 81 (units ( unknown) date) unknown) (unknown) (no (unknown) (unknown) Pulse Rate 85 (units ( unknown) date) unknown) (unknown) (no (unknown) (unknown) Pulse Rate 87 87 (units (unknown) date) unknown) (unknown) (no (unknown) (unknown) Pulse Rate 95 H (units (unknown) date) 01/14/23 10:22 unknown) (unknown) (no (unknown) (unknown) Pulse Rate 95 H 94 (units (unknown) date) H 87 unknown) (unknown) (no (unknown) (unknown) Pulse Rate 96 H 83 (units (unknown) date) unknown) (unknown) (no (unknown) (unknown) Pulse Rate 97 H 97 (units (unknown) date) H unknown) (unknown) (no (unknown) (unknown) RBC (4.5-5.9) (units ( unknown) date) X106/uL unknown) (unknown) (no (unknown) (unknown) RBC 3.80 L (units (unk nown) date) (4.5-5.9) X106/uL unknown) (unknown) (no (unknown) (unknown) RDW (11.6-14.8) % (units (unknown) date) unknown) (unknown) (no (unknown) (unknown) RDW 13.2 (units (unkno wn) date) (11.6-14.8) % unknown) (unknown) (no (unknown) (unknown) RESP: Chest is (units (unknown) date) nontender and has unknown) symmetric movement, no ecchymosis, breath (unknown) (no (unknown) (unknown) Related Data (units (u nknown) date) unknown) (unknown) (no (unknown) (unknown) Respiratory Rate 10 (unit s (unknown) date) L unknown) (unknown) (no (unknown) (unknown) Respiratory Rate 13 (unit s (unknown) date) 11 L unknown) (unknown) (no (unknown) (unknown) Respiratory Rate 13 (unit s (unknown) date) unknown) (unknown) (no (unknown) (unknown) Respiratory Rate 14 (unit s (unknown) date) 14 unknown) (unknown) (no (unknown) (unknown) Respiratory Rate 14 (unit s (unknown) date) unknown) (unknown) (no (unknown) (unknown) Respiratory Rate 15 (unit s (unknown) date) unknown) (unknown) (no (unknown) (unknown) Respiratory Rate 18 (unit s (unknown) date) 01/14/23 10:22 unknown) (unknown) (no (unknown) (unknown) Respiratory Rate 18 (unit s (unknown) date) 12 14 unknown) (unknown) (no (unknown) (unknown) Respiratory Rate 19 (unit s (unknown) date) unknown) (unknown) (no (unknown) (unknown) Respiratory Rate 20 (unit s (unknown) date) unknown) (unknown) (no (unknown) (unknown) Respiratory Rate 8 (units (unknown) date) L unknown) (unknown) (no (unknown) (unknown) Respiratory Rate (units (unknown) date) unknown) (unknown) (no (unknown) (unknown) Review of Systems (units (unknown) date) unknown) (unknown) (no (unknown) (unknown) Rx Instructions: (units (unknown) date) unknown) (unknown) (no (unknown) (unknown) SARS-CoV-2 (PCR) (units (unknown) date) (Negative) unknown) (unknown) (no (unknown) (unknown) SARS-CoV-2 (PCR) (units (unknown) date) Negative (Negative) unknown) (unknown) (no (unknown) (unknown) SKIN: Patient has a (unit s (unknown) date) small 2 cm burn on unknown) his right forearm that has blistered and (unknown) (no (unknown) (unknown) See Rx Instructions (unit s (unknown) date) .ROUTE .COMPLEX unknown) (unknown) (no (unknown) (unknown) Signed By: (units (unk nown) date) unknown) (unknown) (no (unknown) (unknown) Smoking Status: (units (unknown) date) Never smoker unknown) (unknown) (no (unknown) (unknown) Social History (units (unknown) date) (Reviewed 04/13/20 @ unknown) 20:09 by Derick Crandall MD) (unknown) (no (unknown) (unknown) Sodium (137-145) (units (unknown) date) mmol/L unknown) (unknown) (no (unknown) (unknown) Sodium 140 (units (unk nown) date) (137-145) mmol/L unknown) (unknown) (no (unknown) (unknown) Solostar U-100 (units (unknown) date) Insulin) unknown) (unknown) (no (unknown) (unknown) Source: patient, (units (unknown) date) EMS, RN notes unknown) reviewed and old records reviewed (unknown) (no (unknown) (unknown) Stated Complaint: (units (unknown) date) Trauma unknown) (unknown) (no (unknown) (unknown) Stop: 01/14/23 (units (unknown) date) 10:27 unknown) (unknown) (no (unknown) (unknown) Stop: 01/14/23 (units (unknown) date) 10:29 unknown) (unknown) (no (unknown) (unknown) Stop: 01/14/23 (units (unknown) date) 10:58 unknown) (unknown) (no (unknown) (unknown) Stop: 01/14/23 (units (unknown) date) 13:43 unknown) (unknown) (no (unknown) (unknown) Stop: 01/14/23 (units (unknown) date) 14:19 unknown) (unknown) (no (unknown) (unknown) Substance Use Type: (unit s (unknown) date) does not use unknown) (unknown) (no (unknown) (unknown) Suicidal ideation, (units (unknown) date) Alcohol abuse, unknown) Facial laceration (unknown) (no (unknown) (unknown) Syringe) 0.5 ml IM (units (unknown) date) .ONCE ONE unknown) (unknown) (no (unknown) (unknown) TAKE 1 CAPSULE BY (units (unknown) date) MOUTH DAILY unknown) (unknown) (no (unknown) (unknown) TAKE 1 TABLET BY (units (unknown) date) MOUTH EVERY EVENING unknown) (unknown) (no (unknown) (unknown) TAKE 1 TABLET BY (units (unknown) date) MOUTH EVERY MORNING unknown) (unknown) (no (unknown) (unknown) Take 1 tablet by (units (unknown) date) mouth twice a day unknown) (unknown) (no (unknown) (unknown) Temperature 97.4 F (units (unknown) date) L 01/14/23 10:22 unknown) (unknown) (no (unknown) (unknown) Temperature 97.4 F (units (unknown) date) L unknown) (unknown) (no (unknown) (unknown) Temperature (units (un known) date) unknown) (unknown) (no (unknown) (unknown) They also note that (unit s (unknown) date) they were called out unknown) for a wellness check yesterday they (unknown) (no (unknown) (unknown) This is a (units (unkno wn) date) 53-year-old male who unknown) appears intoxicated, he does have scabbing with a (unknown) (no (unknown) (unknown) This is a (units (unkn own) date) 53-year-old male unknown) with known history of alcohol abuse, insulin (unknown) (no (unknown) (unknown) Time Seen by (units (u nknown) date) Provider: 01/14/23 unknown) 10:26 (unknown) (no (unknown) (unknown) To sleep sinus (units (unknown) date) rhythm rate of 72 [place] unknown) 130 QRS of 98 QTC [address] No acute ST (unknown) (no (unknown) (unknown) Total Bilirubin (units (unknown) date) (0.2-1.3) mg/dL unknown) (unknown) (no (unknown) (unknown) Total Bilirubin 0.4 (unit s (unknown) date) (0.2-1.3) mg/dL unknown) (unknown) (no (unknown) (unknown) Total Protein (units ( unknown) date) (6.3-8.2) g/dL unknown) (unknown) (no (unknown) (unknown) Total Protein 7.2 (units (unknown) date) (6.3-8.2) g/dL unknown) (unknown) (no (unknown) (unknown) Tylenol her (units (un known) date) headache and unknown) phenobarb 260 for alcohol withdrawal patient has not (unknown) (no (unknown) (unknown) Type and Screen (units (unknown) date) Stat unknown) (unknown) (no (unknown) (unknown) U Benzodiazepines (units (unknown) date) Scrn (Negative) unknown) (unknown) (no (unknown) (unknown) U Benzodiazepines (units (unknown) date) Scrn Positive H unknown) (Negative) (unknown) (no (unknown) (unknown) U Marijuana (THC) (units (unknown) date) Screen (Negative) unknown) (unknown) (no (unknown) (unknown) U Marijuana (THC) (units (unknown) date) Screen Negative unknown) (Negative) (unknown) (no (unknown) (unknown) U Methamphetamines (units (unknown) date) Scrn (Negative) unknown) (unknown) (no (unknown) (unknown) U Methamphetamines (units (unknown) date) Scrn Negative unknown) (Negative) (unknown) (no (unknown) (unknown) U Opiates 300ng/mL (units (unknown) date) cut (Negative) unknown) (unknown) (no (unknown) (unknown) U Opiates 300ng/mL (units (unknown) date) cut Positive H unknown) (Negative) (unknown) (no (unknown) (unknown) U Tricyclic (units (un known) date) Antidepress unknown) (Negative) (unknown) (no (unknown) (unknown) U Tricyclic (units (un known) date) Antidepress Negative unknown) (Negative) (unknown) (no (unknown) (unknown) Ur Amphetamines (units (unknown) date) Screen (Negative) unknown) (unknown) (no (unknown) (unknown) Ur Amphetamines (units (unknown) date) Screen Negative unknown) (Negative) (unknown) (no (unknown) (unknown) Ur Barbiturates (units (unknown) date) Screen (Negative) unknown) (unknown) (no (unknown) (unknown) Ur Barbiturates (units (unknown) date) Screen Negative unknown) (Negative) (unknown) (no (unknown) (unknown) Ur Culture (units (unk nown) date) Indicated? Cult not unknown) indicated (unknown) (no (unknown) (unknown) Ur Culture (units (unk nown) date) Indicated? unknown) (unknown) (no (unknown) (unknown) Ur Leukocyte (units (u nknown) date) Esterase (NEGATIVE) unknown) (unknown) (no (unknown) (unknown) Ur Leukocyte (units (u nknown) date) Esterase Negative unknown) (NEGATIVE) (unknown) (no (unknown) (unknown) Ur MDMA Scrn (units (u nknown) date) (Ecstasy) (Negative) unknown) (unknown) (no (unknown) (unknown) Ur MDMA Scrn (units (u nknown) date) (Ecstasy) Negative unknown) (Negative) (unknown) (no (unknown) (unknown) Ur Oxycodone Screen (unit s (unknown) date) (Negative) unknown) (unknown) (no (unknown) (unknown) Ur Oxycodone Screen (unit s (unknown) date) Negative (Negative) unknown) (unknown) (no (unknown) (unknown) Ur Phencyclidine (units (unknown) date) Scrn (Negative) unknown) (unknown) (no (unknown) (unknown) Ur Phencyclidine (units (unknown) date) Scrn Negative unknown) (Negative) (unknown) (no (unknown) (unknown) Ur Specific [place] (unit s (unknown) date) (1.000-1.035) unknown) (unknown) (no (unknown) (unknown) Ur Specific [place] (unit s (unknown) date) 1.010 (1.000-1.035) unknown) (unknown) (no (unknown) (unknown) Urinalysis and (units (unknown) date) Microscopic Stat unknown) (unknown) (no (unknown) (unknown) Urine Appearance (units (unknown) date) Clear unknown) (unknown) (no (unknown) (unknown) Urine Appearance (units (unknown) date) unknown) (unknown) (no (unknown) (unknown) Urine Bacteria (units (unknown) date) (None) unknown) (unknown) (no (unknown) (unknown) Urine Bacteria None (unit s (unknown) date) seen (None) unknown) (unknown) (no (unknown) (unknown) Urine Bilirubin (units (unknown) date) (NEGATIVE) unknown) (unknown) (no (unknown) (unknown) Urine Bilirubin (units (unknown) date) Negative (NEGATIVE) unknown) (unknown) (no (unknown) (unknown) Urine Cocaine (units ( unknown) date) Screen (Negative) unknown) (unknown) (no (unknown) (unknown) Urine Cocaine (units ( unknown) date) Screen Negative unknown) (Negative) (unknown) (no (unknown) (unknown) Urine Color Yellow (units (unknown) date) unknown) (unknown) (no (unknown) (unknown) Urine Color (units (un known) date) unknown) (unknown) (no (unknown) (unknown) Urine Drug Screen, (units (unknown) date) Rapid Stat unknown) (unknown) (no (unknown) (unknown) Urine Glucose (UA) (units (unknown) date) (Negative) g/dL unknown) (unknown) (no (unknown) (unknown) Urine Glucose (UA) (units (unknown) date) 2+ H (Negative) g/dL unknown) (unknown) (no (unknown) (unknown) Urine Ketones (units ( unknown) date) (NEGATIVE) unknown) (unknown) (no (unknown) (unknown) Urine Ketones (units ( unknown) date) Negative (NEGATIVE) unknown) (unknown) (no (unknown) (unknown) Urine Methadone (units (unknown) date) Screen (Negative) unknown) (unknown) (no (unknown) (unknown) Urine Methadone (units (unknown) date) Screen Negative unknown) (Negative) (unknown) (no (unknown) (unknown) Urine Nitrate (units ( unknown) date) (Negative) unknown) (unknown) (no (unknown) (unknown) Urine Nitrate (units ( unknown) date) Negative (Negative) unknown) (unknown) (no (unknown) (unknown) Urine Occult Blood (units (unknown) date) (Negative) unknown) (unknown) (no (unknown) (unknown) Urine Occult Blood (units (unknown) date) Negative (Negative) unknown) (unknown) (no (unknown) (unknown) Urine Protein (units ( unknown) date) (Negative) unknown) (unknown) (no (unknown) (unknown) Urine Protein (units ( unknown) date) Negative (Negative) unknown) (unknown) (no (unknown) (unknown) Urine RBC (0-5/HPF) (unit s (unknown) date) unknown) (unknown) (no (unknown) (unknown) Urine RBC None seen (unit s (unknown) date) (0-5/HPF) unknown) (unknown) (no (unknown) (unknown) Urine Urobilinogen (units (unknown) date) (0.2) E.U./dL unknown) (unknown) (no (unknown) (unknown) Urine Urobilinogen (units (unknown) date) 1.0 (0.2) E.U./dL unknown) (unknown) (no (unknown) (unknown) Urine WBC (0-5/HPF) (unit s (unknown) date) unknown) (unknown) (no (unknown) (unknown) Urine WBC None seen (unit s (unknown) date) (0-5/HPF) unknown) (unknown) (no (unknown) (unknown) Urine pH (4.5-8.0) (units (unknown) date) unknown) (unknown) (no (unknown) (unknown) Urine pH 6.5 (units (u nknown) date) (4.5-8.0) unknown) (unknown) (no (unknown) (unknown) Vital Signs - 8 hr (units (unknown) date) unknown) (unknown) (no (unknown) (unknown) Vital Signs (units (un known) date) unknown) (unknown) (no (unknown) (unknown) Vital signs: (units (u nknown) date) unknown) (unknown) (no (unknown) (unknown) WAS (units (unkno wn) date) unknown) (unknown) (no (unknown) (unknown) WBC (4.5-11.0) (units (unknown) date) X103/uL unknown) (unknown) (no (unknown) (unknown) WBC 4.3 L (units (unkn own) date) (4.5-11.0) X103/uL unknown) (unknown) (no (unknown) (unknown) XR chest 1V Stat (units (unknown) date) unknown) (unknown) (no (unknown) (unknown) XR pelvis 1-2V Stat (unit s (unknown) date) unknown) (unknown) (no (unknown) (unknown) [Embedded Image Not (unit s (unknown) date) Available] unknown) (unknown) (no (unknown) (unknown) [From BETADINE] (units (unknown) date) FEELS LIKE unknown) (unknown) (no (unknown) (unknown) [SHELLFISH DERIVED] (unit s (unknown) date) LIKE IT unknown) (unknown) (no (unknown) (unknown) a small burn on his (units (unknown) date) right forearm and he unknown) has bruising his girlfriend told medics (unknown) (no (unknown) (unknown) abdomen pelvis (units (unknown) date) shows no acute unknown) traumatic injury, remote left-sided rib fractures (unknown) (no (unknown) (unknown) alcohol intake (units (unknown) date) frequency: 0-2 unknown) drinks per day (unknown) (no (unknown) (unknown) allergy to iodine (units (unknown) date) which he did not unknown) tell us earlier. Was pretreated with (unknown) (no (unknown) (unknown) and when asked he (units (unknown) date) states he does want unknown) to kill himself when asked why he does not (unknown) (no (unknown) (unknown) answer. When asked (units (unknown) date) if he has a plan he unknown) does not give one. Medics a girlfriend (unknown) (no (unknown) (unknown) anything amiss in (units (unknown) date) the house but he had unknown) been found on the ground in the bathroom. (unknown) (no (unknown) (unknown) appears older with (units (unknown) date) healing skin unknown) underneath, warm and dry, no crepitus and (unknown) (no (unknown) (unknown) arrived. (units (unkno wn) date) unknown) (unknown) (no (unknown) (unknown) atorvastatin 40 mg (units (unknown) date) tablet 40 mg PO unknown) BEDTIME 01/14/23 01/14/23 (unknown) (no (unknown) (unknown) atorvastatin 40 mg (units (unknown) date) tablet unknown) (unknown) (no (unknown) (unknown) been tachycardic (units (unknown) date) since then, no unknown) hypertension. Patient did receive a dose of IV (unknown) (no (unknown) (unknown) chest abdomen (units ( unknown) date) pelvis there was unknown) some delay as it was found patient has reported (unknown) (no (unknown) (unknown) chest and abdomen (units (unknown) date) although it appears unknown) little bit older, and he has a burn on his (unknown) (no (unknown) (unknown) chest, right upper (units (unknown) date) abdomen and right unknown) lower abdomen. (unknown) (no (unknown) (unknown) currently voluntary (unit s (unknown) date) seeking dual unknown) treatment. (unknown) (no (unknown) (unknown) dependent diabetes (units (unknown) date) and chronic pain unknown) with a pain pump in his left abdomen. Patie (unknown) (no (unknown) (unknown) dextroamphetamine-a (unit s (unknown) date) mphetamine 20 20 mg unknown) PO BID 01/14/23 01/14/23 (unknown) (no (unknown) (unknown) dextroamphetamine-a (unit s (unknown) date) mphetamine 20 mg unknown) tablet (unknown) (no (unknown) (unknown) do his injections (units (unknown) date) which he states are unknown) insulin. He states he has a pain pump in (unknown) (no (unknown) (unknown) drinks at least a (units (unknown) date) 5th daily, he denies unknown) tobacco or illicit. He states he did not (unknown) (no (unknown) (unknown) elevation or (units (u nknown) date) depression. unknown) (unknown) (no (unknown) (unknown) eptal hematoma, no (units (unknown) date) dental or oral unknown) injury, airway is normal and with normal (unknown) (no (unknown) (unknown) found blood in a (units (unknown) date) different location unknown) but the patient was not present at that (unknown) (no (unknown) (unknown) function at (units (un known) date) baseline at 0.42 unknown) normal electrolytes glucose is 254, AST ALT alk (unknown) (no (unknown) (unknown) furosemide 20 mg (units (unknown) date) tablet 20 mg PO unknown) DAILY 01/14/23 01/14/23 (unknown) (no (unknown) (unknown) furosemide 20 mg (units (unknown) date) tablet unknown) (unknown) (no (unknown) (unknown) gape, trachea is (units (unknown) date) midline, TM's are unknown) normal no hemotypanum, Nares are clear, no s (unknown) (no (unknown) (unknown) ground there was (units (unknown) date) reportedly some unknown) glass at the scene and the medics state that (unknown) (no (unknown) (unknown) hematoma. CT (units (u nknown) date) C-spine shows unknown) degenerative change but no fracture. CT chest (unknown) (no (unknown) (unknown) hernia and stable (units (unknown) date) lung nodules unknown) measuring 6 mm. (unknown) (no (unknown) (unknown) his alcohol should (units (unknown) date) be around 100 around unknown) 1845. Patient does have some suicidal (unknown) (no (unknown) (unknown) his belly. He did (units (unknown) date) make statements that unknown) he wanted to kill himself to the medics (unknown) (no (unknown) (unknown) his prior injuries (units (unknown) date) with chest and unknown) abdominal bruising, with CT head, C-spine and (unknown) (no (unknown) (unknown) injury, altered (units (unknown) date) mental status, neuro unknown) deficit, positive for recent EtOH. (unknown) (no (unknown) (unknown) insulin glargine (units (unknown) date) 100 unit/mL (3 20 unknown) unit SUBCUT BEDTIME 01/14/23 01/14/23 (unknown) (no (unknown) (unknown) insulin glargine (units (unknown) date) [Lantus Solostar unknown) U-100 Insulin] 100 unit/mL (3 mL) insulin (unknown) (no (unknown) (unknown) insulin lispro 100 (units (unknown) date) unit/mL See Rx unknown) Instructions .Route .COMPLEX 01/14/23 01/14/23 (unknown) (no (unknown) (unknown) insulin lispro (units (unknown) date) [Humalog KwikPen unknown) Insulin] 100 unit/mL insulin pen (unknown) (no (unknown) (unknown) last saw the (units (u w) date) patient on unknown) she noted that he bought a bottle of hard (unknown) (no (unknown) (unknown) leave. He met with (units (unknown) date) our hospital social worker as unknown) he has been otherwise medically cleared (unknown) (no (unknown) (unknown) liquor at that time (unit s (unknown) date) and there was only unknown) about a few mL left today when EMS (unknown) (no (unknown) (unknown) lorazepam when he (units (unknown) date) initially came as unknown) patient was a little agitated and trying to (unknown) (no (unknown) (unknown) losartan 100 mg (units (unknown) date) tablet 100 mg PO unknown) DAILY 01/14/23 01/14/23 (unknown) (no (unknown) (unknown) losartan 100 mg (units (unknown) date) tablet unknown) (unknown) (no (unknown) (unknown) mL) subcutaneous (units (unknown) date) pen (Lantus unknown) (unknown) (no (unknown) (unknown) mg tablet (units (unkn own) date) unknown) (unknown) (no (unknown) (unknown) moving all his (units (unknown) date) extremities well. Is unknown) conversant but confused. Patient states he (unknown) (no (unknown) (unknown) negative. Patient (units (unknown) date) was CT scan unknown) secondary to intoxication unclear mechanism of (unknown) (no (unknown) (unknown) normal color and (units (unknown) date) temperature, normal unknown) range of motion of extremities with normal (unknown) (no (unknown) (unknown) nt states he does (units (unknown) date) not know who he is unknown) aware he is. He is able to give his name (unknown) (no (unknown) (unknown) obtained is unclear (unit s (unknown) date) what exactly unknown) occurred. Patient was called out as a modified (unknown) (no (unknown) (unknown) occlusion, No bony (units (unknown) date) tenderness unknown) (unknown) (no (unknown) (unknown) pelvic rock is (units (unknown) date) negative, patient unknown) has device in the left lateral abdomen. (unknown) (no (unknown) (unknown) pen (units (unkno wn) date) unknown) (unknown) (no (unknown) (unknown) penicillin G (units (u nknown) date) [PENICILLIN G] unknown) Allergy Unknown LEFT EAR Verified 07/27/18 10:10 (unknown) (no (unknown) (unknown) phos are [id number] and (units (unknown) date) 146 with a negative unknown) bilirubin and lipase of 109. EKG shows a (unknown) (no (unknown) (unknown) povidone-iodine (units (unknown) date) Allergy Unknown unknown) 'SKIN Verified 07/27/18 10:10 (unknown) (no (unknown) (unknown) propranolol 20 mg (units (unknown) date) tablet 20 mg PO BID unknown) 01/14/23 01/14/23 (unknown) (no (unknown) (unknown) propranolol 20 mg (units (unknown) date) tablet unknown) (unknown) (no (unknown) (unknown) redirectable (units (u nknown) date) although he keeps unknown) saying he wants to get out of the bed. He has (unknown) (no (unknown) (unknown) right forearm that (units (unknown) date) also appears little unknown) bit older. Patient was found on the (unknown) (no (unknown) (unknown) shellfish derived (units (unknown) date) Allergy Unknown unknown) 'SKIN FELT Verified 07/27/18 10:10 (unknown) (no (unknown) (unknown) sinus rhythm no (units (unknown) date) acute ST changes. unknown) Initial chest x-ray and pelvic x-ray is (unknown) (no (unknown) (unknown) soap [From (units (unk nown) date) BETADINE] Allergy unknown) Unknown 'SKIN Verified 07/27/18 10:10 (unknown) (no (unknown) (unknown) soft tissue injury (units (unknown) date) over the super to unknown) right orbit/right frontal bone with a small (unknown) (no (unknown) (unknown) some blood at the (units (unknown) date) scene in a different unknown) location. Patient had labs, imaging (unknown) (no (unknown) (unknown) some broken glass, (units (unknown) date) medics state the unknown) glass was cleaned up they did not see (unknown) (no (unknown) (unknown) sounds are normal (units (unknown) date) no crackles, wheezes unknown) or rales (unknown) (no (unknown) (unknown) speech appears (units (unknown) date) intoxicated but is unknown) conversant. (unknown) (no (unknown) (unknown) subcutaneous pen (units (unknown) date) (Humalog KwikPen unknown) (unknown) (no (unknown) (unknown) superficial lack of (unit s (unknown) date) the right forehead, unknown) he has some bruising of his anterior (unknown) (no (unknown) (unknown) tamsulosin 0.4 mg (units (unknown) date) capsule 0.4 mg PO unknown) DAILY 01/14/23 01/14/23 (unknown) (no (unknown) (unknown) tamsulosin 0.4 mg (units (unknown) date) capsule unknown) (unknown) (no (unknown) (unknown) tendon exam, 2+ (units (unknown) date) pulses in all four unknown) extremities (unknown) (no (unknown) (unknown) that is bruising on (unit s (unknown) date) his left abdomen is unknown) from injections but onto his chest and (unknown) (no (unknown) (unknown) they were there the (unit s (unknown) date) day before patient unknown) was not present at home but there was (unknown) (no (unknown) (unknown) thoughts no clear (units (unknown) date) active clot unknown) described to myself. That was social work (unknown) (no (unknown) (unknown) time. Patient does (units (unknown) date) not recall what unknown) trauma occurred. The somewhat repetitive. (unknown) (no (unknown) (unknown) trauma. (units (unkno wn) date) unknown) (unknown) (no (unknown) (unknown) upper abdomen she (units (unknown) date) is unsure. Patient unknown) was found at home in the bathroom with (unknown) (no (unknown) (unknown) what appears to be (units (unknown) date) scabbed superficial unknown) laceration over his right forehead he has (unknown) (no (unknown) (unknown) when he is (units (unk nown) date) registered. Patient unknown) is confused but follows commands he is (unknown) (no (unknown) (unknown) with remote left (units (unknown) date) scapular and L1-L2 unknown) transverse process fractures, small hiatal (unknown) (no (unknown) (unknown) without decubitus. (units (unknown) date) Patient has unknown) ecchymosis that is about 4 cm on his anterior Result panel 230 (unknown) (no (unknown) (unknown) (no value) (units (unk nown) date) unknown) (unknown) (no (unknown) (unknown) (U-100) Insulin) (units (unknown) date) unknown) (unknown) (no (unknown) (unknown) 0.4 mg PO DAILY (units (unknown) date) unknown) (unknown) (no (unknown) (unknown) [id number] (units (unkno wn) date) unknown) (unknown) (no (unknown) (unknown) 01/14/23 01/14/23 (units (unknown) date) 01/14/23 Range/Units unknown) (unknown) (no (unknown) (unknown) 01/14/23 10:27 (units (unknown) date) unknown) (unknown) (no (unknown) (unknown) 01/14/23 10:29 (units (unknown) date) unknown) (unknown) (no (unknown) (unknown) 01/14/23 10:35 (units (unknown) date) unknown) (unknown) (no (unknown) (unknown) 01/14/23 10:45 (units (unknown) date) unknown) (unknown) (no (unknown) (unknown) 01/14/23 11:17 (units (unknown) date) unknown) (unknown) (no (unknown) (unknown) 01/14/23 11:23 (units (unknown) date) unknown) (unknown) (no (unknown) (unknown) 01/14/23 14:09 (units (unknown) date) unknown) (unknown) (no (unknown) (unknown) 01/14/23 15:25 (units (unknown) date) unknown) (unknown) (no (unknown) (unknown) 01/14/23 17:01 (units (unknown) date) unknown) (unknown) (no (unknown) (unknown) 01/14/23 18:04 (units (unknown) date) unknown) (unknown) (no (unknown) (unknown) 01/14/23 (units (unkno wn) date) unknown) (unknown) (no (unknown) (unknown) 100 mg PO DAILY (units (unknown) date) unknown) (unknown) (no (unknown) (unknown) 10:22 01/14/23 (units (unknown) date) unknown) (unknown) (no (unknown) (unknown) 10:25 01/14/23 (units (unknown) date) unknown) (unknown) (no (unknown) (unknown) 10:30 (units (unkno wn) date) unknown) (unknown) (no (unknown) (unknown) 10:32 01/14/23 (units (unknown) date) unknown) (unknown) (no (unknown) (unknown) 10:45 10:45 10:45 (units (unknown) date) unknown) (unknown) (no (unknown) (unknown) 10:45 11:23 13:48 (units (unknown) date) unknown) (unknown) (no (unknown) (unknown) 11:00 (units (unkno wn) date) unknown) (unknown) (no (unknown) (unknown) 11:24 01/14/23 (units (unknown) date) unknown) (unknown) (no (unknown) (unknown) 11:30 (units (unkno wn) date) unknown) (unknown) (no (unknown) (unknown) 11:31 01/14/23 (units (unknown) date) unknown) (unknown) (no (unknown) (unknown) 11:50 01/14/23 (units (unknown) date) unknown) (unknown) (no (unknown) (unknown) 11:50 (units (unkno wn) date) unknown) (unknown) (no (unknown) (unknown) 12:05 01/14/23 (units (unknown) date) unknown) (unknown) (no (unknown) (unknown) 12:05 (units (unkno wn) date) unknown) (unknown) (no (unknown) (unknown) 12:15 01/14/23 (units (unknown) date) unknown) (unknown) (no (unknown) (unknown) 12:30 01/14/23 (units (unknown) date) unknown) (unknown) (no (unknown) (unknown) 12:30 (units (unkno wn) date) unknown) (unknown) (no (unknown) (unknown) 12:45 01/14/23 (units (unknown) date) unknown) (unknown) (no (unknown) (unknown) 12:45 (units (unkno wn) date) unknown) (unknown) (no (unknown) (unknown) 13:00 01/14/23 (units (unknown) date) unknown) (unknown) (no (unknown) (unknown) 13:01 01/14/23 (units (unknown) date) unknown) (unknown) (no (unknown) (unknown) 13:01 (units (unkno wn) date) unknown) (unknown) (no (unknown) (unknown) 13:15 01/14/23 (units (unknown) date) unknown) (unknown) (no (unknown) (unknown) 13:30 01/14/23 (units (unknown) date) unknown) (unknown) (no (unknown) (unknown) 13:30 (units (unkno wn) date) unknown) (unknown) (no (unknown) (unknown) 13:49 01/14/23 (units (unknown) date) unknown) (unknown) (no (unknown) (unknown) 13:49 (units (unkno wn) date) unknown) (unknown) (no (unknown) (unknown) 14:00 01/14/23 (units (unknown) date) unknown) (unknown) (no (unknown) (unknown) 14:09 14:09 15:25 (units (unknown) date) unknown) (unknown) (no (unknown) (unknown) 14:26 01/14/23 (units (unknown) date) unknown) (unknown) (no (unknown) (unknown) 14:26 (units (unkno wn) date) unknown) (unknown) (no (unknown) (unknown) 14:30 01/14/23 (units (unknown) date) unknown) (unknown) (no (unknown) (unknown) 15:00 (units (unkno wn) date) unknown) (unknown) (no (unknown) (unknown) 15:02 01/14/23 (units (unknown) date) unknown) (unknown) (no (unknown) (unknown) 15:30 (units (unkno wn) date) unknown) (unknown) (no (unknown) (unknown) 16:00 01/14/23 (units (unknown) date) unknown) (unknown) (no (unknown) (unknown) 16:30 01/14/23 (units (unknown) date) unknown) (unknown) (no (unknown) (unknown) 16:30 (units (unkno wn) date) unknown) (unknown) (no (unknown) (unknown) 17:00 01/14/23 (units (unknown) date) unknown) (unknown) (no (unknown) (unknown) 17:00 (units (unkno wn) date) unknown) (unknown) (no (unknown) (unknown) 17:30 01/14/23 (units (unknown) date) unknown) (unknown) (no (unknown) (unknown) 18:00 (units (unkno wn) date) unknown) (unknown) (no (unknown) (unknown) 20 mg PO BID (units (u nknown) date) unknown) (unknown) (no (unknown) (unknown) 20 mg PO DAILY (units (unknown) date) unknown) (unknown) (no (unknown) (unknown) 20 unit SUBCUT (units (unknown) date) BEDTIME unknown) (unknown) (no (unknown) (unknown) 2016 white count of (unit s (unknown) date) 4.3 normal platelets unknown) at 296. Coags are negative, renal fun (unknown) (no (unknown) (unknown) 4 extremities (units ( unknown) date) moving, cranial unknown) nerves II through XII are intact, GCS is 15 (unknown) (no (unknown) (unknown) 40 mg PO BEDTIME (units (unknown) date) unknown) (unknown) (no (unknown) (unknown) ABG/GI: Nontender, (units (unknown) date) soft, normal bowel unknown) sounds, no distention, no organomegaly, (unknown) (no (unknown) (unknown) ADMINISTER 2 TO 10 (units (unknown) date) UNITS UNDER THE SKIN unknown) BEFORE MEALS AND AT BEDTIME (unknown) (no (unknown) (unknown) ADMINISTER 20 UNITS (unit s (unknown) date) UNDER THE SKIN EVERY unknown) EVENING (unknown) (no (unknown) (unknown) AGE 12YR (units (unkno wn) date) unknown) (unknown) (no (unknown) (unknown) ALT (<50) IU/L (units (unknown) date) unknown) (unknown) (no (unknown) (unknown) ALT 88 H (<50) IU/L (unit s (unknown) date) unknown) (unknown) (no (unknown) (unknown) APTT (26-36) (units (u nknown) date) SECONDS unknown) (unknown) (no (unknown) (unknown) APTT 34 (26-36) (units (unknown) date) SECONDS unknown) (unknown) (no (unknown) (unknown) AST (17-59) IU/L (units (unknown) date) unknown) (unknown) (no (unknown) (unknown) AST 87 H (17-59) (units (unknown) date) IU/L unknown) (unknown) (no (unknown) (unknown) Acetaminophen (units ( unknown) date) (Acetaminophen 325 unknown) Mg Tablet) 650 mg PO NOW ONE (unknown) (no (unknown) (unknown) Age/Sex: 53 / M (units (unknown) date) unknown) (unknown) (no (unknown) (unknown) Albumin (3.5-5.0) (units (unknown) date) g/dL unknown) (unknown) (no (unknown) (unknown) Albumin 4.0 (units (un known) date) (3.5-5.0) g/dL unknown) (unknown) (no (unknown) (unknown) Albumin/Globulin (units (unknown) date) Ratio (1.0-2.8) unknown) (unknown) (no (unknown) (unknown) Albumin/Globulin (units (unknown) date) Ratio 1.3 (1.0-2.8) unknown) (unknown) (no (unknown) (unknown) Alkaline (units (unkno wn) date) Phosphatase (38-126) unknown) U/L (unknown) (no (unknown) (unknown) Alkaline (units (unkno wn) date) Phosphatase 146 H unknown) (38-126) U/L (unknown) (no (unknown) (unknown) Allergies (units (unkn own) date) unknown) (unknown) (no (unknown) (unknown) Allergy/AdvReac (units (unknown) date) Type Severity unknown) Reaction Status Date / Time (unknown) (no (unknown) (unknown) Another facility is (unit s (unknown) date) evaluating the unknown) patient. Patient signed out to Dr. Dewey, (unknown) (no (unknown) (unknown) Antibody Screen (units (unknown) date) Negative unknown) (unknown) (no (unknown) (unknown) Antibody Screen (units (unknown) date) unknown) (unknown) (no (unknown) (unknown) Attestation: I (units (unknown) date) personally reviewed unknown) and interpreted this ECG as follows: (unknown) (no (unknown) (unknown) BACK: No CVA (units (u nknown) date) tenderness, no unknown) vertebral tenderness, no step-off's, no crepitus (unknown) (no (unknown) (unknown) BUN (9-20) mg/dL (units (unknown) date) unknown) (unknown) (no (unknown) (unknown) BUN 8 L (9-20) (units (unknown) date) mg/dL unknown) (unknown) (no (unknown) (unknown) BUN/Creatinine (units (unknown) date) Ratio (6-22) unknown) (unknown) (no (unknown) (unknown) BUN/Creatinine (units (unknown) date) Ratio 19.0 (6-22) unknown) (unknown) (no (unknown) (unknown) BURNING' (units (unkno wn) date) unknown) (unknown) (no (unknown) (unknown) Baso # (Auto) (units ( unknown) date) (0-100) /uL unknown) (unknown) (no (unknown) (unknown) Baso # (Auto) 100 (units (unknown) date) (0-100) /uL unknown) (unknown) (no (unknown) (unknown) Baso % (Auto) (0-2) (unit s (unknown) date) % unknown) (unknown) (no (unknown) (unknown) Baso % (Auto) 1.4 (units (unknown) date) (0-2) % unknown) (unknown) (no (unknown) (unknown) Blood Pressure (units (unknown) date) 113/56 L unknown) (unknown) (no (unknown) (unknown) Blood Pressure (units (unknown) date) 121/73 130/82 unknown) (unknown) (no (unknown) (unknown) Blood Pressure (units (unknown) date) 133/92 H unknown) (unknown) (no (unknown) (unknown) Blood Pressure (units (unknown) date) 135/88 144/96 H unknown) (unknown) (no (unknown) (unknown) Blood Pressure (units (unknown) date) 137/72 106/52 L unknown) (unknown) (no (unknown) (unknown) Blood Pressure (units (unknown) date) 146/82 H unknown) (unknown) (no (unknown) (unknown) Blood Pressure (units (unknown) date) 146/90 H unknown) (unknown) (no (unknown) (unknown) Blood Pressure (units (unknown) date) 148/91 H 137/84 unknown) (unknown) (no (unknown) (unknown) Blood Pressure (units (unknown) date) 149/94 H 01/14/23 unknown) 10:22 (unknown) (no (unknown) (unknown) Blood Pressure (units (unknown) date) 149/94 H unknown) (unknown) (no (unknown) (unknown) Blood Pressure (units (unknown) date) 151/87 H unknown) (unknown) (no (unknown) (unknown) Blood Pressure (units (unknown) date) 155/97 H unknown) (unknown) (no (unknown) (unknown) Blood Pressure (units (unknown) date) 160/97 H unknown) (unknown) (no (unknown) (unknown) Blood Pressure (units (unknown) date) 163/88 H unknown) (unknown) (no (unknown) (unknown) Blood Pressure (units (unknown) date) 164/106 H 141/98 H unknown) (unknown) (no (unknown) (unknown) Blood Pressure (units (unknown) date) 172/88 H unknown) (unknown) (no (unknown) (unknown) Blood Pressure (units (unknown) date) 181/95 H unknown) (unknown) (no (unknown) (unknown) Blood Pressure (units (unknown) date) unknown) (unknown) (no (unknown) (unknown) Blood Type O (units (u nknown) date) Positive unknown) (unknown) (no (unknown) (unknown) Blood Type (units (unk nown) date) unknown) (unknown) (no (unknown) (unknown) COVID19 -Nasal (units (unknown) date) RAPID Stat unknown) (unknown) (no (unknown) (unknown) CT C-spine shows (units (unknown) date) degenerative change unknown) but no fracture. CT chest abdomen pelvis (unknown) (no (unknown) (unknown) CT cervical spine (units (unknown) date) wo con Stat unknown) (unknown) (no (unknown) (unknown) CT chest abd pel w (units (unknown) date) con Stat unknown) (unknown) (no (unknown) (unknown) CT head/brain wo (units (unknown) date) con Stat unknown) (unknown) (no (unknown) (unknown) CVS: Heart sounds (units (unknown) date) are normal, no unknown) murmur noted, No JVD. (unknown) (no (unknown) (unknown) Calcium (8.4-10.2) (units (unknown) date) mg/dL unknown) (unknown) (no (unknown) (unknown) Calcium 8.5 (units (un known) date) (8.4-10.2) mg/dL unknown) (unknown) (no (unknown) (unknown) Carbon Dioxide (units (unknown) date) (22-32) mmol/L unknown) (unknown) (no (unknown) (unknown) Carbon Dioxide 30 (units (unknown) date) (22-32) mmol/L unknown) (unknown) (no (unknown) (unknown) Chief Complaint: (units (unknown) date) Trauma unknown) (unknown) (no (unknown) (unknown) Chloride (98-107) (units (unknown) date) mmol/L unknown) (unknown) (no (unknown) (unknown) Chloride 100 (units (u nknown) date) (98-107) mmol/L unknown) (unknown) (no (unknown) (unknown) Chronic low back (units (unknown) date) pain unknown) (unknown) (no (unknown) (unknown) Clinical (units (unkno wn) date) Impression: unknown) (unknown) (no (unknown) (unknown) Complete Blood (units (unknown) date) Count AUTO DIFF Stat unknown) (unknown) (no (unknown) (unknown) Comprehensive (units ( unknown) date) Metabolic Panel Stat unknown) (unknown) (no (unknown) (unknown) Consult to [facility] [place] - (units (unknown) date) 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) (unknown) (no (unknown) (unknown) Course (units (unkno wn) date) unknown) (unknown) (no (unknown) (unknown) Creatinine (units (unk nown) date) (0.66-1.25) mg/dL unknown) (unknown) (no (unknown) (unknown) Creatinine 0.42 L (units (unknown) date) (0.66-1.25) mg/dL unknown) (unknown) (no (unknown) (unknown) : 1970 (units (unknown) date) Acct:[id number] unknown) (unknown) (no (unknown) (unknown) Date of Service: (units (unknown) date) 01/14/23 unknown) (unknown) (no (unknown) (unknown) Departure (units (unkn own) date) unknown) (unknown) (no (unknown) (unknown) Diphenhydramine HCl (unit s (unknown) date) (Diphenhydramine 50 unknown) Mg/Ml Vial) 50 mg IV NOW ONE (unknown) (no (unknown) (unknown) Diphtheria/Tetanus/ (unit s (unknown) date) Acell Pertussis unknown) (Tet,Diph,Pertuss(Ac ell),Vac/Pf 0.5 Ml (unknown) (no (unknown) (unknown) Discharge Plan (units (unknown) date) unknown) (unknown) (no (unknown) (unknown) Discontinued (units (u nknown) date) Medications unknown) (unknown) (no (unknown) (unknown) Documented By: AT (units (unknown) date) unknown) (unknown) (no (unknown) (unknown) Documented By: KB (units (unknown) date) unknown) (unknown) (no (unknown) (unknown) ECG Data (units (unkno wn) date) unknown) (unknown) (no (unknown) (unknown) ED Orders (units (unkn own) date) unknown) (unknown) (no (unknown) (unknown) EKG-12 Lead Stat (units (unknown) date) unknown) (unknown) (no (unknown) (unknown) ENT: Patient has (units (unknown) date) superficial scabbed unknown) laceration over his right brow, does not (unknown) (no (unknown) (unknown) ER Physician: (units ( unknown) date) Bridgett Garrido D.O. unknown) (unknown) (no (unknown) (unknown) ETOH [Ethanol (units ( unknown) date) (ETOH)] Stat unknown) (unknown) (no (unknown) (unknown) EXT: Atraumatic (units (unknown) date) other than skin unknown) changes. hips are nontender, no pedal edema, (unknown) (no (unknown) (unknown) EYES: PERRLA, EOMI (units (unknown) date) unknown) (unknown) (no (unknown) (unknown) Emergency Report (units (unknown) date) unknown) (unknown) (no (unknown) (unknown) Eos # (Auto) (units (u nknown) date) (0-450) /uL unknown) (unknown) (no (unknown) (unknown) Eos # (Auto) 100 (units (unknown) date) (0-450) /uL unknown) (unknown) (no (unknown) (unknown) Eos % (Auto) (2-4) (units (unknown) date) % unknown) (unknown) (no (unknown) (unknown) Eos % (Auto) 2.2 (units (unknown) date) (2-4) % unknown) (unknown) (no (unknown) (unknown) Estimated GFR > 60 (units (unknown) date) (>60) mL/min unknown) (unknown) (no (unknown) (unknown) Estimated GFR (>60) (unit s (unknown) date) mL/min unknown) (unknown) (no (unknown) (unknown) Ethanol (ETOH) Stat (unit s (unknown) date) unknown) (unknown) (no (unknown) (unknown) Ethyl Alcohol ( - (units (unknown) date) 10) mg/dL unknown) (unknown) (no (unknown) (unknown) Ethyl Alcohol 308 H (unit s (unknown) date) ( - 10) mg/dL unknown) (unknown) (no (unknown) (unknown) Exam (units (unkno wn) date) unknown) (unknown) (no (unknown) (unknown) FEELS LIKE (units (unk nown) date) unknown) (unknown) (no (unknown) (unknown) GEN: C-collar was (units (unknown) date) placed by EMS in the unknown) field but patient would not keep it on. (unknown) (no (unknown) (unknown) General (units (unkno wn) date) unknown) (unknown) (no (unknown) (unknown) Globulin (1.7-4.1) (units (unknown) date) g/dL unknown) (unknown) (no (unknown) (unknown) Globulin 3.2 (units (u nknown) date) (1.7-4.1) g/dL unknown) (unknown) (no (unknown) (unknown) Glucose (70-100) (units (unknown) date) mg/dL unknown) (unknown) (no (unknown) (unknown) Glucose 254 H (units ( unknown) date) (70-100) mg/dL unknown) (unknown) (no (unknown) (unknown) Glucose POC 344 (units (unknown) date) unknown) (unknown) (no (unknown) (unknown) HEAD: No evidence (units (unknown) date) of trauma, no unknown) raccoon/Johnson sign. (unknown) (no (unknown) (unknown) HEARING (units (unkno wn) date) unknown) (unknown) (no (unknown) (unknown) HPI - Trauma (units (u nknown) date) unknown) (unknown) (no (unknown) (unknown) HPI narrative: (units (unknown) date) unknown) (unknown) (no (unknown) (unknown) Hct (41-53) % (units ( unknown) date) unknown) (unknown) (no (unknown) (unknown) Hct 36.9 L (41-53) (units (unknown) date) % unknown) (unknown) (no (unknown) (unknown) Hgb (13.5-17.5) (units (unknown) date) g/dL unknown) (unknown) (no (unknown) (unknown) Hgb 12.3 L (units (unk nown) date) (13.5-17.5) g/dL unknown) (unknown) (no (unknown) (unknown) History of Present (units (unknown) date) Illness unknown) (unknown) (no (unknown) (unknown) Home Medications (units (unknown) date) unknown) (unknown) (no (unknown) (unknown) INR (0.9-1.3) (units ( unknown) date) unknown) (unknown) (no (unknown) (unknown) INR 1.0 (0.9-1.3) (units (unknown) date) unknown) (unknown) (no (unknown) (unknown) Initial Vital Signs (unit s (unknown) date) unknown) (unknown) (no (unknown) (unknown) Initial Vital (units ( unknown) date) Signs: unknown) (unknown) (no (unknown) (unknown) Interpretation: (units (unknown) date) unknown) (unknown) (no (unknown) (unknown) [facility] (units (unknown) date) [address] unknown) [place] [address] (unknown) (no (unknown) (unknown) Ketorolac (units (unkn own) date) Tromethamine unknown) (Ketorolac 30 Mg/Ml Vial) 15 mg IV NOW ONE (unknown) (no (unknown) (unknown) LOSS AT (units (unkno wn) date) unknown) (unknown) (no (unknown) (unknown) Lab Data (units (unkno wn) date) unknown) (unknown) (no (unknown) (unknown) Lab Results (units (un known) date) unknown) (unknown) (no (unknown) (unknown) Labs show an ETOH (units (unknown) date) of 308, patient has unknown) a hemoglobin of 12 baseline compared to (unknown) (no (unknown) (unknown) Labs: (units (unkno wn) date) unknown) (unknown) (no (unknown) (unknown) Lactate (0.7-2.1) (units (unknown) date) mmol/L unknown) (unknown) (no (unknown) (unknown) Lactate (Lactic (units (unknown) date) Acid) Stat unknown) (unknown) (no (unknown) (unknown) Lactate 2.1 1.9 (units (unknown) date) (0.7-2.1) mmol/L unknown) (unknown) (no (unknown) (unknown) Last Admin: (units (un known) date) 01/14/23 10:42 Dose: unknown) 0.5 mg (unknown) (no (unknown) (unknown) Last Admin: (units (un known) date) 01/14/23 11:11 Dose: unknown) 50 mg (unknown) (no (unknown) (unknown) Last Admin: (units (un known) date) 01/14/23 11:12 Dose: unknown) 125 mg (unknown) (no (unknown) (unknown) Last Admin: (units (un known) date) 01/14/23 14:28 Dose: unknown) 260 mg (unknown) (no (unknown) (unknown) Last Admin: (units (un known) date) 01/14/23 14:29 Dose: unknown) 650 mg (unknown) (no (unknown) (unknown) Last Admin: (units (un known) date) 01/14/23 15:09 Dose: unknown) 0.5 ml (unknown) (no (unknown) (unknown) Last Admin: (units (un known) date) 01/14/23 18:00 Dose: unknown) 15 mg (unknown) (no (unknown) (unknown) Limitations: no (units (unknown) date) limitations unknown) (unknown) (no (unknown) (unknown) Lipase (23-300) U/L (unit s (unknown) date) unknown) (unknown) (no (unknown) (unknown) Lipase 109 (23-300) (unit s (unknown) date) U/L unknown) (unknown) (no (unknown) (unknown) Lipase Stat (units (un known) date) unknown) (unknown) (no (unknown) (unknown) Lorazepam (units (unkn own) date) (Lorazepam 2 Mg/Ml unknown) Inj) 0.5 mg IV NOW ONE (unknown) (no (unknown) (unknown) Lorazepam (units (unkn own) date) (Lorazepam 2 Mg/Ml unknown) Inj) 0.5 mg IV Q2HR PRN (unknown) (no (unknown) (unknown) Lymph # (Auto) (units (unknown) date) (0831-8311) /uL unknown) (unknown) (no (unknown) (unknown) Lymph # (Auto) 1700 (unit s (unknown) date) (1339-8411) /uL unknown) (unknown) (no (unknown) (unknown) Lymph % (Auto) (units (unknown) date) (25-40) % unknown) (unknown) (no (unknown) (unknown) Lymph % (Auto) 39.1 (unit s (unknown) date) (25-40) % unknown) (unknown) (no (unknown) (unknown) MCH (26-34) PG (units (unknown) date) unknown) (unknown) (no (unknown) (unknown) MCH 32.5 (26-34) PG (unit s (unknown) date) unknown) (unknown) (no (unknown) (unknown) MCHC (30-36) % (units (unknown) date) unknown) (unknown) (no (unknown) (unknown) MCHC 33.5 (30-36) % (unit s (unknown) date) unknown) (unknown) (no (unknown) (unknown) MCV (80-100) fL (units (unknown) date) unknown) (unknown) (no (unknown) (unknown) MCV 97.1 (80-100) (units (unknown) date) fL unknown) (unknown) (no (unknown) (unknown) MDM - Trauma (units (u nknown) date) unknown) (unknown) (no (unknown) (unknown) MDM Narrative (units ( unknown) date) unknown) (unknown) (no (unknown) (unknown) Medical History (units (unknown) date) (Updated 01/14/23 @ unknown) 16:59 by Brigdett Garrido DO) (unknown) (no (unknown) (unknown) Medical decision (units (unknown) date) making narrative: unknown) (unknown) (no (unknown) (unknown) Medication (units (unk nown) date) Instructions unknown) Recorded Confirmed (unknown) (no (unknown) (unknown) Methylprednisolone (units (unknown) date) (Methylprednisolone unknown) 125 Mg/2 Ml Vial) 125 mg IV NOW ONE (unknown) (no (unknown) (unknown) Micro UA Comment (units (unknown) date) Microscopic normal unknown) (unknown) (no (unknown) (unknown) Micro UA Comment (units (unknown) date) unknown) (unknown) (no (unknown) (unknown) Mode of arrival: (units (unknown) date) EMS unknown) (unknown) (no (unknown) (unknown) Pender # (Auto) (units ( unknown) date) (0-900) /uL unknown) (unknown) (no (unknown) (unknown) Pender # (Auto) 600 (units (unknown) date) (0-900) /uL unknown) (unknown) (no (unknown) (unknown) Pender % (Auto) (units ( unknown) date) (3-14) % unknown) (unknown) (no (unknown) (unknown) Pender % (Auto) 14.9 (units (unknown) date) H (3-14) % unknown) (unknown) (no (unknown) (unknown) NECK: Nontender, (units (unknown) date) painless range of unknown) motion, trachea midline (unknown) (no (unknown) (unknown) NEURO: Oriented (units (unknown) date) AOx3, neuro is unknown) grossly intact, sensation and motor is normal all (unknown) (no (unknown) (unknown) Narrative: (units (unk nown) date) unknown) (unknown) (no (unknown) (unknown) Neut # (Auto) (units ( unknown) date) (6842-4531) /uL unknown) (unknown) (no (unknown) (unknown) Neut # (Auto) 1800 (units (unknown) date) (8033-1275) /uL unknown) (unknown) (no (unknown) (unknown) Neut % (Auto) (units ( unknown) date) (50-75) % unknown) (unknown) (no (unknown) (unknown) Neut % (Auto) 42.4 (units (unknown) date) L (50-75) % unknown) (unknown) (no (unknown) (unknown) No Action (units (unkn own) date) unknown) (unknown) (no (unknown) (unknown) Nontender, (units (unk nown) date) incisions healed. unknown) (unknown) (no (unknown) (unknown) Ordered: (units (unkno wn) date) unknown) (unknown) (no (unknown) (unknown) Orders (units (unkno wn) date) unknown) (unknown) (no (unknown) (unknown) Oxygen Delivery (units (unknown) date) Method Room Air unknown) 01/14/23 10:22 (unknown) (no (unknown) (unknown) Oxygen Delivery (units (unknown) date) Method Room Air Room unknown) Air (unknown) (no (unknown) (unknown) Oxygen Delivery (units (unknown) date) Method Room Air unknown) (unknown) (no (unknown) (unknown) Oxygen Delivery (units (unknown) date) Method unknown) (unknown) (no (unknown) (unknown) PRN Reason: Anxiety (unit s (unknown) date) unknown) (unknown) (no (unknown) (unknown) PSYCH: Normal mood (units (unknown) date) and affect unknown) (unknown) (no (unknown) (unknown) PT (10.1-12.7) (units (unknown) date) SECONDS unknown) (unknown) (no (unknown) (unknown) PT 11.2 (10.1-12.7) (unit s (unknown) date) SECONDS unknown) (unknown) (no (unknown) (unknown) PTT Partial (units (un known) date) Thromboplastin Rodolfo unknown) Stat (unknown) (no (unknown) (unknown) Patient Comments: (units (unknown) date) unknown) (unknown) (no (unknown) (unknown) Patient History (units (unknown) date) unknown) (unknown) (no (unknown) (unknown) Patient appears in (units (unknown) date) moderate distress. unknown) Patient is confused has slightly slurred (unknown) (no (unknown) (unknown) Patient denies (units (unknown) date) pain, no shortness unknown) of breath, no GI or urinary symptoms. He is (unknown) (no (unknown) (unknown) Patient had (units (un known) date) Solu-Medrol unknown) methylprednisolone for pretreatment for CT, he had (unknown) (no (unknown) (unknown) Patient was CT scan (unit s (unknown) date) secondary to unknown) intoxication unclear mechanism of his prior (unknown) (no (unknown) (unknown) Patient was being (units (unknown) date) evaluated by 1 unknown) facility, they asked for repeat EKG for QTC (unknown) (no (unknown) (unknown) Patient: (units (unkno wn) date) Octavio Romo MR#: unknown) M00 (unknown) (no (unknown) (unknown) Phenobarbital (units ( unknown) date) (Phenobarbital 65 unknown) Mg/Ml Vial) 260 mg IV NOW ONE (unknown) (no (unknown) (unknown) Plt Count (150-400) (unit s (unknown) date) X103/uL unknown) (unknown) (no (unknown) (unknown) Plt Count 296 (units ( unknown) date) (150-400) X103/uL unknown) (unknown) (no (unknown) (unknown) Point of Care (units ( unknown) date) Testing unknown) (unknown) (no (unknown) (unknown) Positive Nexus (units (unknown) date) criteria, there is unknown) no midline line tenderness, distracting (unknown) (no (unknown) (unknown) Potassium (3.4-5.1) (unit s (unknown) date) mmol/L unknown) (unknown) (no (unknown) (unknown) Potassium 3.9 (units ( unknown) date) (3.4-5.1) mmol/L unknown) (unknown) (no (unknown) (unknown) Prescriptions: (units (unknown) date) unknown) (unknown) (no (unknown) (unknown) Prothrombin Time (units (unknown) date) INR Stat unknown) (unknown) (no (unknown) (unknown) Pulse Oximetry 93 (units (unknown) date) 93 unknown) (unknown) (no (unknown) (unknown) Pulse Oximetry 93 (units (unknown) date) 95 unknown) (unknown) (no (unknown) (unknown) Pulse Oximetry 93 (units (unknown) date) unknown) (unknown) (no (unknown) (unknown) Pulse Oximetry 94 (units (unknown) date) 91 unknown) (unknown) (no (unknown) (unknown) Pulse Oximetry 94 (units (unknown) date) 94 unknown) (unknown) (no (unknown) (unknown) Pulse Oximetry 94 (units (unknown) date) 96 unknown) (unknown) (no (unknown) (unknown) Pulse Oximetry 94 (units (unknown) date) unknown) (unknown) (no (unknown) (unknown) Pulse Oximetry 95 (units (unknown) date) 94 unknown) (unknown) (no (unknown) (unknown) Pulse Oximetry 95 (units (unknown) date) 97 unknown) (unknown) (no (unknown) (unknown) Pulse Oximetry 95 (units (unknown) date) unknown) (unknown) (no (unknown) (unknown) Pulse Oximetry 96 (units (unknown) date) unknown) (unknown) (no (unknown) (unknown) Pulse Oximetry 97 (units (unknown) date) 96 unknown) (unknown) (no (unknown) (unknown) Pulse Oximetry 97 (units (unknown) date) unknown) (unknown) (no (unknown) (unknown) Pulse Oximetry 99 (units (unknown) date) 01/14/23 10:22 unknown) (unknown) (no (unknown) (unknown) Pulse Oximetry 99 (units (unknown) date) 96 97 unknown) (unknown) (no (unknown) (unknown) Pulse Rate 74 72 (units (unknown) date) unknown) (unknown) (no (unknown) (unknown) Pulse Rate 74 78 (units (unknown) date) unknown) (unknown) (no (unknown) (unknown) Pulse Rate 74 (units ( unknown) date) unknown) (unknown) (no (unknown) (unknown) Pulse Rate 75 76 (units (unknown) date) unknown) (unknown) (no (unknown) (unknown) Pulse Rate 75 (units ( unknown) date) unknown) (unknown) (no (unknown) (unknown) Pulse Rate 76 82 (units (unknown) date) unknown) (unknown) (no (unknown) (unknown) Pulse Rate 78 80 (units (unknown) date) unknown) (unknown) (no (unknown) (unknown) Pulse Rate 80 79 (units (unknown) date) unknown) (unknown) (no (unknown) (unknown) Pulse Rate 80 (units ( unknown) date) unknown) (unknown) (no (unknown) (unknown) Pulse Rate 81 (units ( unknown) date) unknown) (unknown) (no (unknown) (unknown) Pulse Rate 85 (units ( unknown) date) unknown) (unknown) (no (unknown) (unknown) Pulse Rate 87 87 (units (unknown) date) unknown) (unknown) (no (unknown) (unknown) Pulse Rate 95 H (units (unknown) date) 01/14/23 10:22 unknown) (unknown) (no (unknown) (unknown) Pulse Rate 95 H 94 (units (unknown) date) H 87 unknown) (unknown) (no (unknown) (unknown) Pulse Rate 96 H 83 (units (unknown) date) unknown) (unknown) (no (unknown) (unknown) Pulse Rate 97 H 97 (units (unknown) date) H unknown) (unknown) (no (unknown) (unknown) RBC (4.5-5.9) (units ( unknown) date) X106/uL unknown) (unknown) (no (unknown) (unknown) RBC 3.80 L (units (unk nown) date) (4.5-5.9) X106/uL unknown) (unknown) (no (unknown) (unknown) RDW (11.6-14.8) % (units (unknown) date) unknown) (unknown) (no (unknown) (unknown) RDW 13.2 (units (unkno wn) date) (11.6-14.8) % unknown) (unknown) (no (unknown) (unknown) RESP: Chest is (units (unknown) date) nontender and has unknown) symmetric movement, no ecchymosis, breath (unknown) (no (unknown) (unknown) Related Data (units (u nknown) date) unknown) (unknown) (no (unknown) (unknown) Respiratory Rate 10 (unit s (unknown) date) L unknown) (unknown) (no (unknown) (unknown) Respiratory Rate 13 (unit s (unknown) date) 11 L unknown) (unknown) (no (unknown) (unknown) Respiratory Rate 13 (unit s (unknown) date) 13 unknown) (unknown) (no (unknown) (unknown) Respiratory Rate 13 (unit s (unknown) date) unknown) (unknown) (no (unknown) (unknown) Respiratory Rate 14 (unit s (unknown) date) 14 unknown) (unknown) (no (unknown) (unknown) Respiratory Rate 14 (unit s (unknown) date) unknown) (unknown) (no (unknown) (unknown) Respiratory Rate 15 (unit s (unknown) date) unknown) (unknown) (no (unknown) (unknown) Respiratory Rate 18 (unit s (unknown) date) 01/14/23 10:22 unknown) (unknown) (no (unknown) (unknown) Respiratory Rate 18 (unit s (unknown) date) 12 14 unknown) (unknown) (no (unknown) (unknown) Respiratory Rate 19 (unit s (unknown) date) unknown) (unknown) (no (unknown) (unknown) Respiratory Rate 20 (unit s (unknown) date) unknown) (unknown) (no (unknown) (unknown) Respiratory Rate 8 (units (unknown) date) L unknown) (unknown) (no (unknown) (unknown) Respiratory Rate (units (unknown) date) unknown) (unknown) (no (unknown) (unknown) Review of Systems (units (unknown) date) unknown) (unknown) (no (unknown) (unknown) Rx Instructions: (units (unknown) date) unknown) (unknown) (no (unknown) (unknown) SARS-CoV-2 (PCR) (units (unknown) date) (Negative) unknown) (unknown) (no (unknown) (unknown) SARS-CoV-2 (PCR) (units (unknown) date) Negative (Negative) unknown) (unknown) (no (unknown) (unknown) SKIN: Patient has a (unit s (unknown) date) small 2 cm burn on unknown) his right forearm that has blistered and (unknown) (no (unknown) (unknown) See Rx Instructions (unit s (unknown) date) .ROUTE .COMPLEX unknown) (unknown) (no (unknown) (unknown) Signed By: (units (unk nown) date) unknown) (unknown) (no (unknown) (unknown) Smoking Status: (units (unknown) date) Never smoker unknown) (unknown) (no (unknown) (unknown) Social History (units (unknown) date) (Reviewed 04/13/20 @ unknown) 20:09 by Derick Crandall MD) (unknown) (no (unknown) (unknown) Sodium (137-145) (units (unknown) date) mmol/L unknown) (unknown) (no (unknown) (unknown) Sodium 140 (units (unk nown) date) (137-145) mmol/L unknown) (unknown) (no (unknown) (unknown) Solostar U-100 (units (unknown) date) Insulin) unknown) (unknown) (no (unknown) (unknown) Solu-Medrol as he (units (unknown) date) was felt stable. CT unknown) imaging of the brain shows soft tissue (unknown) (no (unknown) (unknown) Source: patient, (units (unknown) date) EMS, RN notes unknown) reviewed and old records reviewed (unknown) (no (unknown) (unknown) Stated Complaint: (units (unknown) date) Trauma unknown) (unknown) (no (unknown) (unknown) Stop: 01/14/23 (units (unknown) date) 10:27 unknown) (unknown) (no (unknown) (unknown) Stop: 01/14/23 (units (unknown) date) 10:29 unknown) (unknown) (no (unknown) (unknown) Stop: 01/14/23 (units (unknown) date) 10:58 unknown) (unknown) (no (unknown) (unknown) Stop: 01/14/23 (units (unknown) date) 13:43 unknown) (unknown) (no (unknown) (unknown) Stop: 01/14/23 (units (unknown) date) 14:19 unknown) (unknown) (no (unknown) (unknown) Stop: 01/14/23 (units (unknown) date) 17:53 unknown) (unknown) (no (unknown) (unknown) Substance Use Type: (unit s (unknown) date) does not use unknown) (unknown) (no (unknown) (unknown) Suicidal ideation, (units (unknown) date) Alcohol abuse, unknown) Facial laceration (unknown) (no (unknown) (unknown) Syringe) 0.5 ml IM (units (unknown) date) .ONCE ONE unknown) (unknown) (no (unknown) (unknown) TAKE 1 CAPSULE BY (units (unknown) date) MOUTH DAILY unknown) (unknown) (no (unknown) (unknown) TAKE 1 TABLET BY (units (unknown) date) MOUTH EVERY EVENING unknown) (unknown) (no (unknown) (unknown) TAKE 1 TABLET BY (units (unknown) date) MOUTH EVERY MORNING unknown) (unknown) (no (unknown) (unknown) Take 1 tablet by (units (unknown) date) mouth twice a day unknown) (unknown) (no (unknown) (unknown) Temperature 97.4 F (units (unknown) date) L 01/14/23 10:22 unknown) (unknown) (no (unknown) (unknown) Temperature 97.4 F (units (unknown) date) L unknown) (unknown) (no (unknown) (unknown) Temperature (units (un known) date) unknown) (unknown) (no (unknown) (unknown) They also note that (unit s (unknown) date) they were called out unknown) for a wellness check yesterday they (unknown) (no (unknown) (unknown) This is a (units (unkno wn) date) 53-year-old male who unknown) appears intoxicated, he does have scabbing with a (unknown) (no (unknown) (unknown) This is a (units (unkn own) date) 53-year-old male unknown) with known history of alcohol abuse, insulin (unknown) (no (unknown) (unknown) Time Seen by (units (u nknown) date) Provider: 01/14/23 unknown) 10:26 (unknown) (no (unknown) (unknown) To sleep sinus (units (unknown) date) rhythm rate of 72 [place] unknown) 130 QRS of 98 QTC [address]. No acute ST (unknown) (no (unknown) (unknown) Total Bilirubin (units (unknown) date) (0.2-1.3) mg/dL unknown) (unknown) (no (unknown) (unknown) Total Bilirubin 0.4 (unit s (unknown) date) (0.2-1.3) mg/dL unknown) (unknown) (no (unknown) (unknown) Total Protein (units ( unknown) date) (6.3-8.2) g/dL unknown) (unknown) (no (unknown) (unknown) Total Protein 7.2 (units (unknown) date) (6.3-8.2) g/dL unknown) (unknown) (no (unknown) (unknown) Tylenol her (units (un known) date) headache and unknown) phenobarb 260 for alcohol withdrawal patient has not (unknown) (no (unknown) (unknown) Type and Screen (units (unknown) date) Stat unknown) (unknown) (no (unknown) (unknown) U Benzodiazepines (units (unknown) date) Scrn (Negative) unknown) (unknown) (no (unknown) (unknown) U Benzodiazepines (units (unknown) date) Scrn Positive H unknown) (Negative) (unknown) (no (unknown) (unknown) U Marijuana (THC) (units (unknown) date) Screen (Negative) unknown) (unknown) (no (unknown) (unknown) U Marijuana (THC) (units (unknown) date) Screen Negative unknown) (Negative) (unknown) (no (unknown) (unknown) U Methamphetamines (units (unknown) date) Scrn (Negative) unknown) (unknown) (no (unknown) (unknown) U Methamphetamines (units (unknown) date) Scrn Negative unknown) (Negative) (unknown) (no (unknown) (unknown) U Opiates 300ng/mL (units (unknown) date) cut (Negative) unknown) (unknown) (no (unknown) (unknown) U Opiates 300ng/mL (units (unknown) date) cut Positive H unknown) (Negative) (unknown) (no (unknown) (unknown) U Tricyclic (units (un known) date) Antidepress unknown) (Negative) (unknown) (no (unknown) (unknown) U Tricyclic (units (un known) date) Antidepress Negative unknown) (Negative) (unknown) (no (unknown) (unknown) Ur Amphetamines (units (unknown) date) Screen (Negative) unknown) (unknown) (no (unknown) (unknown) Ur Amphetamines (units (unknown) date) Screen Negative unknown) (Negative) (unknown) (no (unknown) (unknown) Ur Barbiturates (units (unknown) date) Screen (Negative) unknown) (unknown) (no (unknown) (unknown) Ur Barbiturates (units (unknown) date) Screen Negative unknown) (Negative) (unknown) (no (unknown) (unknown) Ur Culture (units (unk nown) date) Indicated? Cult not unknown) indicated (unknown) (no (unknown) (unknown) Ur Culture (units (unk nown) date) Indicated? unknown) (unknown) (no (unknown) (unknown) Ur Leukocyte (units (u nknown) date) Esterase (NEGATIVE) unknown) (unknown) (no (unknown) (unknown) Ur Leukocyte (units (u nknown) date) Esterase Negative unknown) (NEGATIVE) (unknown) (no (unknown) (unknown) Ur MDMA Scrn (units (u nknown) date) (Ecstasy) (Negative) unknown) (unknown) (no (unknown) (unknown) Ur MDMA Scrn (units (u nknown) date) (Ecstasy) Negative unknown) (Negative) (unknown) (no (unknown) (unknown) Ur Oxycodone Screen (unit s (unknown) date) (Negative) unknown) (unknown) (no (unknown) (unknown) Ur Oxycodone Screen (unit s (unknown) date) Negative (Negative) unknown) (unknown) (no (unknown) (unknown) Ur Phencyclidine (units (unknown) date) Scrn (Negative) unknown) (unknown) (no (unknown) (unknown) Ur Phencyclidine (units (unknown) date) Scrn Negative unknown) (Negative) (unknown) (no (unknown) (unknown) Ur Specific [place] (unit s (unknown) date) (1.000-1.035) unknown) (unknown) (no (unknown) (unknown) Ur Specific [place] (unit s (unknown) date) 1.010 (1.000-1.035) unknown) (unknown) (no (unknown) (unknown) Urinalysis and (units (unknown) date) Microscopic Stat unknown) (unknown) (no (unknown) (unknown) Urine Appearance (units (unknown) date) Clear unknown) (unknown) (no (unknown) (unknown) Urine Appearance (units (unknown) date) unknown) (unknown) (no (unknown) (unknown) Urine Bacteria (units (unknown) date) (None) unknown) (unknown) (no (unknown) (unknown) Urine Bacteria None (unit s (unknown) date) seen (None) unknown) (unknown) (no (unknown) (unknown) Urine Bilirubin (units (unknown) date) (NEGATIVE) unknown) (unknown) (no (unknown) (unknown) Urine Bilirubin (units (unknown) date) Negative (NEGATIVE) unknown) (unknown) (no (unknown) (unknown) Urine Cocaine (units ( unknown) date) Screen (Negative) unknown) (unknown) (no (unknown) (unknown) Urine Cocaine (units ( unknown) date) Screen Negative unknown) (Negative) (unknown) (no (unknown) (unknown) Urine Color Yellow (units (unknown) date) unknown) (unknown) (no (unknown) (unknown) Urine Color (units (un known) date) unknown) (unknown) (no (unknown) (unknown) Urine Drug Screen, (units (unknown) date) Rapid Stat unknown) (unknown) (no (unknown) (unknown) Urine Glucose (UA) (units (unknown) date) (Negative) g/dL unknown) (unknown) (no (unknown) (unknown) Urine Glucose (UA) (units (unknown) date) 2+ H (Negative) g/dL unknown) (unknown) (no (unknown) (unknown) Urine Ketones (units ( unknown) date) (NEGATIVE) unknown) (unknown) (no (unknown) (unknown) Urine Ketones (units ( unknown) date) Negative (NEGATIVE) unknown) (unknown) (no (unknown) (unknown) Urine Methadone (units (unknown) date) Screen (Negative) unknown) (unknown) (no (unknown) (unknown) Urine Methadone (units (unknown) date) Screen Negative unknown) (Negative) (unknown) (no (unknown) (unknown) Urine Nitrate (units ( unknown) date) (Negative) unknown) (unknown) (no (unknown) (unknown) Urine Nitrate (units ( unknown) date) Negative (Negative) unknown) (unknown) (no (unknown) (unknown) Urine Occult Blood (units (unknown) date) (Negative) unknown) (unknown) (no (unknown) (unknown) Urine Occult Blood (units (unknown) date) Negative (Negative) unknown) (unknown) (no (unknown) (unknown) Urine Protein (units ( unknown) date) (Negative) unknown) (unknown) (no (unknown) (unknown) Urine Protein (units ( unknown) date) Negative (Negative) unknown) (unknown) (no (unknown) (unknown) Urine RBC (0-5/HPF) (unit s (unknown) date) unknown) (unknown) (no (unknown) (unknown) Urine RBC None seen (unit s (unknown) date) (0-5/HPF) unknown) (unknown) (no (unknown) (unknown) Urine Urobilinogen (units (unknown) date) (0.2) E.U./dL unknown) (unknown) (no (unknown) (unknown) Urine Urobilinogen (units (unknown) date) 1.0 (0.2) E.U./dL unknown) (unknown) (no (unknown) (unknown) Urine WBC (0-5/HPF) (unit s (unknown) date) unknown) (unknown) (no (unknown) (unknown) Urine WBC None seen (unit s (unknown) date) (0-5/HPF) unknown) (unknown) (no (unknown) (unknown) Urine pH (4.5-8.0) (units (unknown) date) unknown) (unknown) (no (unknown) (unknown) Urine pH 6.5 (units (u nknown) date) (4.5-8.0) unknown) (unknown) (no (unknown) (unknown) Vital Signs - 8 hr (units (unknown) date) unknown) (unknown) (no (unknown) (unknown) Vital Signs (units (un known) date) unknown) (unknown) (no (unknown) (unknown) Vital signs: (units (u nknown) date) unknown) (unknown) (no (unknown) (unknown) WAS (units (unkno wn) date) unknown) (unknown) (no (unknown) (unknown) WBC (4.5-11.0) (units (unknown) date) X103/uL unknown) (unknown) (no (unknown) (unknown) WBC 4.3 L (units (unkn own) date) (4.5-11.0) X103/uL unknown) (unknown) (no (unknown) (unknown) XR chest 1V Stat (units (unknown) date) unknown) (unknown) (no (unknown) (unknown) XR pelvis 1-2V Stat (unit s (unknown) date) unknown) (unknown) (no (unknown) (unknown) [Embedded Image Not (unit s (unknown) date) Available] unknown) (unknown) (no (unknown) (unknown) [From BETADINE] (units (unknown) date) FEELS LIKE unknown) (unknown) (no (unknown) (unknown) [SHELLFISH DERIVED] (unit s (unknown) date) LIKE IT unknown) (unknown) (no (unknown) (unknown) a small burn on his (units (unknown) date) right forearm and he unknown) has bruising his girlfriend told medics (unknown) (no (unknown) (unknown) abdomen pelvis there (unit s (unknown) date) was some delay as it unknown) was found patient has reported allergy (unknown) (no (unknown) (unknown) alcohol intake (units (unknown) date) frequency: 0-2 unknown) drinks per day (unknown) (no (unknown) (unknown) and when asked he (units (unknown) date) states he does want unknown) to kill himself when asked why he does not (unknown) (no (unknown) (unknown) answer. When asked (units (unknown) date) if he has a plan he unknown) does not give one. Medics a girlfriend (unknown) (no (unknown) (unknown) anything amiss in (units (unknown) date) the house but he had unknown) been found on the ground in the bathroom. (unknown) (no (unknown) (unknown) appears older with (units (unknown) date) healing skin unknown) underneath, warm and dry, no crepitus and (unknown) (no (unknown) (unknown) are 8788 and 146 (units (unknown) date) with a negative unknown) bilirubin and lipase of 109. EKG shows a sinus (unknown) (no (unknown) (unknown) arrived. (units (unkno wn) date) unknown) (unknown) (no (unknown) (unknown) atorvastatin 40 mg (units (unknown) date) tablet 40 mg PO unknown) BEDTIME 01/14/23 01/14/23 (unknown) (no (unknown) (unknown) atorvastatin 40 mg (units (unknown) date) tablet unknown) (unknown) (no (unknown) (unknown) been tachycardic (units (unknown) date) since then, no unknown) hypertension. Patient did receive a dose of IV (unknown) (no (unknown) (unknown) chest and abdomen (units (unknown) date) although it appears unknown) little bit older, and he has a burn on his (unknown) (no (unknown) (unknown) chest, right upper (units (unknown) date) abdomen and right unknown) lower abdomen. (unknown) (no (unknown) (unknown) ction at baseline (units (unknown) date) at 0.42 normal unknown) electrolytes glucose is 254, AST ALT alk-phos (unknown) (no (unknown) (unknown) currently voluntary (unit s (unknown) date) seeking dual unknown) treatment. (unknown) (no (unknown) (unknown) dependent diabetes (units (unknown) date) and chronic pain unknown) with a pain pump in his left abdomen. Patie (unknown) (no (unknown) (unknown) dextroamphetamine-a (unit s (unknown) date) mphetamine 20 20 mg unknown) PO BID 01/14/23 01/14/23 (unknown) (no (unknown) (unknown) dextroamphetamine-a (unit s (unknown) date) mphetamine 20 mg unknown) tablet (unknown) (no (unknown) (unknown) do his injections (units (unknown) date) which he states are unknown) insulin. He states he has a pain pump in (unknown) (no (unknown) (unknown) drinks at least a (units (unknown) date) 5th daily, he denies unknown) tobacco or illicit. He states he did not (unknown) (no (unknown) (unknown) elevation or (units (u nknown) date) depression. unknown) (unknown) (no (unknown) (unknown) eptal hematoma, no (units (unknown) date) dental or oral unknown) injury, airway is normal and with normal (unknown) (no (unknown) (unknown) found blood in a (units (unknown) date) different location unknown) but the patient was not present at that (unknown) (no (unknown) (unknown) furosemide 20 mg (units (unknown) date) tablet 20 mg PO unknown) DAILY 01/14/23 01/14/23 (unknown) (no (unknown) (unknown) furosemide 20 mg (units (unknown) date) tablet unknown) (unknown) (no (unknown) (unknown) gape, trachea is (units (unknown) date) midline, TM's are unknown) normal no hemotypanum, Nares are clear, no s (unknown) (no (unknown) (unknown) ground there was (units (unknown) date) reportedly some unknown) glass at the scene and the medics state that (unknown) (no (unknown) (unknown) his alcohol should (units (unknown) date) be around 100 around unknown) 1845. Patient does have some suicidal (unknown) (no (unknown) (unknown) his belly. He did (units (unknown) date) make statements that unknown) he wanted to kill himself to the medics (unknown) (no (unknown) (unknown) injuries with chest (unit s (unknown) date) and abdominal unknown) bruising, with CT head, C-spine and chest (unknown) (no (unknown) (unknown) injury over the (units (unknown) date) super to right unknown) orbit/right frontal bone with a small hematoma. (unknown) (no (unknown) (unknown) injury, altered (units (unknown) date) mental status, neuro unknown) deficit, positive for recent EtOH. (unknown) (no (unknown) (unknown) insulin glargine (units (unknown) date) 100 unit/mL (3 20 unknown) unit SUBCUT BEDTIME 01/14/23 01/14/23 (unknown) (no (unknown) (unknown) insulin glargine (units (unknown) date) [Lantus Solostar unknown) U-100 Insulin] 100 unit/mL (3 mL) insulin (unknown) (no (unknown) (unknown) insulin lispro 100 (units (unknown) date) unit/mL See Rx unknown) Instructions .Route .COMPLEX 01/14/23 01/14/23 (unknown) (no (unknown) (unknown) insulin lispro (units (unknown) date) [Humalog KwikPen unknown) Insulin] 100 unit/mL insulin pen (unknown) (no (unknown) (unknown) last saw the (units (u nknown) date) patient on unknown) she noted that he bought a bottle of hard (unknown) (no (unknown) (unknown) leave. He met with (units (unknown) date) our hospital social worker as unknown) he has been otherwise medically cleared (unknown) (no (unknown) (unknown) left scapular and (units (unknown) date) L1-L2 transverse unknown) process fractures, small hiatal hernia and (unknown) (no (unknown) (unknown) liquor at that time (unit s (unknown) date) and there was only unknown) about a few mL left today when EMS (unknown) (no (unknown) (unknown) lorazepam when he (units (unknown) date) initially came as unknown) patient was a little agitated and trying to (unknown) (no (unknown) (unknown) losartan 100 mg (units (unknown) date) tablet 100 mg PO unknown) DAILY 01/14/23 01/14/23 (unknown) (no (unknown) (unknown) losartan 100 mg (units (unknown) date) tablet unknown) (unknown) (no (unknown) (unknown) mL) subcutaneous (units (unknown) date) pen (Lantus unknown) (unknown) (no (unknown) (unknown) medications or (units (unknown) date) prolong his QT. He unknown) has a prior in the past and had a 449 QTC. (unknown) (no (unknown) (unknown) mg tablet (units (unkn own) date) unknown) (unknown) (no (unknown) (unknown) moving all his (units (unknown) date) extremities well. Is unknown) conversant but confused. Patient states he (unknown) (no (unknown) (unknown) normal color and (units (unknown) date) temperature, normal unknown) range of motion of extremities with normal (unknown) (no (unknown) (unknown) nt states he does (units (unknown) date) not know who he is unknown) aware he is. He is able to give his name (unknown) (no (unknown) (unknown) obtained is unclear (unit s (unknown) date) what exactly unknown) occurred. Patient was called out as a modified (unknown) (no (unknown) (unknown) occlusion, No bony (units (unknown) date) tenderness unknown) (unknown) (no (unknown) (unknown) pelvic rock is (units (unknown) date) negative, patient unknown) has device in the left lateral abdomen. (unknown) (no (unknown) (unknown) pen (units (unkno wn) date) unknown) (unknown) (no (unknown) (unknown) penicillin G (units (u nknown) date) [PENICILLIN G] unknown) Allergy Unknown LEFT EAR Verified 07/27/18 10:10 (unknown) (no (unknown) (unknown) povidone-iodine (units (unknown) date) Allergy Unknown unknown) 'SKIN Verified 07/27/18 10:10 (unknown) (no (unknown) (unknown) propranolol 20 mg (units (unknown) date) tablet 20 mg PO BID unknown) 01/14/23 01/14/23 (unknown) (no (unknown) (unknown) propranolol 20 mg (units (unknown) date) tablet unknown) (unknown) (no (unknown) (unknown) redirectable (units (u nknown) date) although he keeps unknown) saying he wants to get out of the bed. He has (unknown) (no (unknown) (unknown) rhythm no acute ST (units (unknown) date) changes. Initial unknown) chest x-ray and pelvic x-ray is negative. (unknown) (no (unknown) (unknown) right forearm that (units (unknown) date) also appears little unknown) bit older. Patient was found on the (unknown) (no (unknown) (unknown) seeking placement (units (unknown) date) but currently unknown) voluntary. (unknown) (no (unknown) (unknown) shellfish derived (units (unknown) date) Allergy Unknown unknown) 'SKIN FELT Verified 07/27/18 10:10 (unknown) (no (unknown) (unknown) shows no acute (units (unknown) date) traumatic injury, unknown) remote left-sided rib fractures with remote (unknown) (no (unknown) (unknown) soap [From (units (unk nown) date) BETADINE] Allergy unknown) Unknown 'SKIN Verified 07/27/18 10:10 (unknown) (no (unknown) (unknown) some blood at the (units (unknown) date) scene in a different unknown) location. Patient had labs, imaging (unknown) (no (unknown) (unknown) some broken glass, (units (unknown) date) medics state the unknown) glass was cleaned up they did not see (unknown) (no (unknown) (unknown) sounds are normal (units (unknown) date) no crackles, wheezes unknown) or rales (unknown) (no (unknown) (unknown) speech appears (units (unknown) date) intoxicated but is unknown) conversant. (unknown) (no (unknown) (unknown) stable lung nodules (unit s (unknown) date) measuring 6 mm. unknown) (unknown) (no (unknown) (unknown) subcutaneous pen (units (unknown) date) (Humalog KwikPen unknown) (unknown) (no (unknown) (unknown) superficial lack of (unit s (unknown) date) the right forehead, unknown) he has some bruising of his anterior (unknown) (no (unknown) (unknown) tamsulosin 0.4 mg (units (unknown) date) capsule 0.4 mg PO unknown) DAILY 01/14/23 01/14/23 (unknown) (no (unknown) (unknown) tamsulosin 0.4 mg (units (unknown) date) capsule unknown) (unknown) (no (unknown) (unknown) tendon exam, 2+ (units (unknown) date) pulses in all four unknown) extremities (unknown) (no (unknown) (unknown) that is bruising on (unit s (unknown) date) his left abdomen is unknown) from injections but onto his chest and (unknown) (no (unknown) (unknown) they wanted less (units (unknown) date) than 450 repeat is unknown) 497. Patient had Benadryl but no other (unknown) (no (unknown) (unknown) they were there the (unit s (unknown) date) day before patient unknown) was not present at home but there was (unknown) (no (unknown) (unknown) thoughts no clear (units (unknown) date) active clot unknown) described to myself. That was social work (unknown) (no (unknown) (unknown) time. Patient does (units (unknown) date) not recall what unknown) trauma occurred. The somewhat repetitive. (unknown) (no (unknown) (unknown) to iodine which he (units (unknown) date) did not tell us unknown) earlier. Was pretreated with Benadryl and (unknown) (no (unknown) (unknown) trauma. (units (unkno wn) date) unknown) (unknown) (no (unknown) (unknown) upper abdomen she (units (unknown) date) is unsure. Patient unknown) was found at home in the bathroom with (unknown) (no (unknown) (unknown) what appears to be (units (unknown) date) scabbed superficial unknown) laceration over his right forehead he has (unknown) (no (unknown) (unknown) when he is (units (unk nown) date) registered. Patient unknown) is confused but follows commands he is (unknown) (no (unknown) (unknown) without decubitus. (units (unknown) date) Patient has unknown) ecchymosis that is about 4 cm on his anterior Result panel 231 (unknown) (no (unknown) (unknown) (no value) (units (unk nown) date) unknown) (unknown) (no (unknown) (unknown) (U-100) Insulin) (units (unknown) date) unknown) (unknown) (no (unknown) (unknown) 0.4 mg PO DAILY (units (unknown) date) unknown) (unknown) (no (unknown) (unknown) [id number] (units (unkno wn) date) unknown) (unknown) (no (unknown) (unknown) 01/14/23 01/14/23 (units (unknown) date) 01/14/23 Range/Units unknown) (unknown) (no (unknown) (unknown) 01/14/23 10:27 (units (unknown) date) unknown) (unknown) (no (unknown) (unknown) 01/14/23 10:29 (units (unknown) date) unknown) (unknown) (no (unknown) (unknown) 01/14/23 10:35 (units (unknown) date) unknown) (unknown) (no (unknown) (unknown) 01/14/23 10:45 (units (unknown) date) unknown) (unknown) (no (unknown) (unknown) 01/14/23 11:17 (units (unknown) date) unknown) (unknown) (no (unknown) (unknown) 01/14/23 11:23 (units (unknown) date) unknown) (unknown) (no (unknown) (unknown) 01/14/23 14:09 (units (unknown) date) unknown) (unknown) (no (unknown) (unknown) 01/14/23 15:25 (units (unknown) date) unknown) (unknown) (no (unknown) (unknown) 01/14/23 17:01 (units (unknown) date) unknown) (unknown) (no (unknown) (unknown) 01/14/23 18:04 (units (unknown) date) unknown) (unknown) (no (unknown) (unknown) 01/14/23 (units (unkno wn) date) unknown) (unknown) (no (unknown) (unknown) 100 mg PO DAILY (units (unknown) date) unknown) (unknown) (no (unknown) (unknown) 10:22 01/14/23 (units (unknown) date) unknown) (unknown) (no (unknown) (unknown) 10:25 01/14/23 (units (unknown) date) unknown) (unknown) (no (unknown) (unknown) 10:30 (units (unkno wn) date) unknown) (unknown) (no (unknown) (unknown) 10:32 01/14/23 (units (unknown) date) unknown) (unknown) (no (unknown) (unknown) 10:45 10:45 10:45 (units (unknown) date) unknown) (unknown) (no (unknown) (unknown) 10:45 11:23 13:48 (units (unknown) date) unknown) (unknown) (no (unknown) (unknown) 11:00 (units (unkno wn) date) unknown) (unknown) (no (unknown) (unknown) 11:24 01/14/23 (units (unknown) date) unknown) (unknown) (no (unknown) (unknown) 11:30 (units (unkno wn) date) unknown) (unknown) (no (unknown) (unknown) 11:31 01/14/23 (units (unknown) date) unknown) (unknown) (no (unknown) (unknown) 11:50 01/14/23 (units (unknown) date) unknown) (unknown) (no (unknown) (unknown) 11:50 (units (unkno wn) date) unknown) (unknown) (no (unknown) (unknown) 12:05 01/14/23 (units (unknown) date) unknown) (unknown) (no (unknown) (unknown) 12:05 (units (unkno wn) date) unknown) (unknown) (no (unknown) (unknown) 12:15 01/14/23 (units (unknown) date) unknown) (unknown) (no (unknown) (unknown) 12:30 01/14/23 (units (unknown) date) unknown) (unknown) (no (unknown) (unknown) 12:30 (units (unkno wn) date) unknown) (unknown) (no (unknown) (unknown) 12:45 01/14/23 (units (unknown) date) unknown) (unknown) (no (unknown) (unknown) 12:45 (units (unkno wn) date) unknown) (unknown) (no (unknown) (unknown) 13:00 01/14/23 (units (unknown) date) unknown) (unknown) (no (unknown) (unknown) 13:01 01/14/23 (units (unknown) date) unknown) (unknown) (no (unknown) (unknown) 13:01 (units (unkno wn) date) unknown) (unknown) (no (unknown) (unknown) 13:15 01/14/23 (units (unknown) date) unknown) (unknown) (no (unknown) (unknown) 13:30 01/14/23 (units (unknown) date) unknown) (unknown) (no (unknown) (unknown) 13:30 (units (unkno wn) date) unknown) (unknown) (no (unknown) (unknown) 13:49 01/14/23 (units (unknown) date) unknown) (unknown) (no (unknown) (unknown) 13:49 (units (unkno wn) date) unknown) (unknown) (no (unknown) (unknown) 14:00 01/14/23 (units (unknown) date) unknown) (unknown) (no (unknown) (unknown) 14:09 14:09 15:25 (units (unknown) date) unknown) (unknown) (no (unknown) (unknown) 14:26 01/14/23 (units (unknown) date) unknown) (unknown) (no (unknown) (unknown) 14:26 (units (unkno wn) date) unknown) (unknown) (no (unknown) (unknown) 14:30 01/14/23 (units (unknown) date) unknown) (unknown) (no (unknown) (unknown) 15:00 (units (unkno wn) date) unknown) (unknown) (no (unknown) (unknown) 15:02 01/14/23 (units (unknown) date) unknown) (unknown) (no (unknown) (unknown) 15:30 (units (unkno wn) date) unknown) (unknown) (no (unknown) (unknown) 16:00 01/14/23 (units (unknown) date) unknown) (unknown) (no (unknown) (unknown) 16:30 01/14/23 (units (unknown) date) unknown) (unknown) (no (unknown) (unknown) 16:30 (units (unkno wn) date) unknown) (unknown) (no (unknown) (unknown) 17:00 01/14/23 (units (unknown) date) unknown) (unknown) (no (unknown) (unknown) 17:00 (units (unkno wn) date) unknown) (unknown) (no (unknown) (unknown) 17:30 01/14/23 (units (unknown) date) unknown) (unknown) (no (unknown) (unknown) 18:00 (units (unkno wn) date) unknown) (unknown) (no (unknown) (unknown) 20 mg PO BID (units (u nknown) date) unknown) (unknown) (no (unknown) (unknown) 20 mg PO DAILY (units (unknown) date) unknown) (unknown) (no (unknown) (unknown) 20 unit SUBCUT (units (unknown) date) BEDTIME unknown) (unknown) (no (unknown) (unknown) 2016 white count of (unit s (unknown) date) 4.3 normal platelets unknown) at 296. Coags are negative, renal fun (unknown) (no (unknown) (unknown) 4 extremities (units ( unknown) date) moving, cranial unknown) nerves II through XII are intact, GCS is 15 (unknown) (no (unknown) (unknown) 40 mg PO BEDTIME (units (unknown) date) unknown) (unknown) (no (unknown) (unknown) ABG/GI: Nontender, (units (unknown) date) soft, normal bowel unknown) sounds, no distention, no organomegaly, (unknown) (no (unknown) (unknown) ADMINISTER 2 TO 10 (units (unknown) date) UNITS UNDER THE SKIN unknown) BEFORE MEALS AND AT BEDTIME (unknown) (no (unknown) (unknown) ADMINISTER 20 UNITS (unit s (unknown) date) UNDER THE SKIN EVERY unknown) EVENING (unknown) (no (unknown) (unknown) AGE 12YR (units (unkno wn) date) unknown) (unknown) (no (unknown) (unknown) ALT (<50) IU/L (units (unknown) date) unknown) (unknown) (no (unknown) (unknown) ALT 88 H (<50) IU/L (unit s (unknown) date) unknown) (unknown) (no (unknown) (unknown) APTT (26-36) (units (u nknown) date) SECONDS unknown) (unknown) (no (unknown) (unknown) APTT 34 (26-36) (units (unknown) date) SECONDS unknown) (unknown) (no (unknown) (unknown) AST (17-59) IU/L (units (unknown) date) unknown) (unknown) (no (unknown) (unknown) AST 87 H (17-59) (units (unknown) date) IU/L unknown) (unknown) (no (unknown) (unknown) Acetaminophen (units ( unknown) date) (Acetaminophen 325 unknown) Mg Tablet) 650 mg PO NOW ONE (unknown) (no (unknown) (unknown) Age/Sex: 53 / M (units (unknown) date) unknown) (unknown) (no (unknown) (unknown) Albumin (3.5-5.0) (units (unknown) date) g/dL unknown) (unknown) (no (unknown) (unknown) Albumin 4.0 (units (un known) date) (3.5-5.0) g/dL unknown) (unknown) (no (unknown) (unknown) Albumin/Globulin (units (unknown) date) Ratio (1.0-2.8) unknown) (unknown) (no (unknown) (unknown) Albumin/Globulin (units (unknown) date) Ratio 1.3 (1.0-2.8) unknown) (unknown) (no (unknown) (unknown) Alkaline (units (unkno wn) date) Phosphatase (38-126) unknown) U/L (unknown) (no (unknown) (unknown) Alkaline (units (unkno wn) date) Phosphatase 146 H unknown) (38-126) U/L (unknown) (no (unknown) (unknown) Allergies (units (unkn own) date) unknown) (unknown) (no (unknown) (unknown) Allergy/AdvReac (units (unknown) date) Type Severity unknown) Reaction Status Date / Time (unknown) (no (unknown) (unknown) Another facility is (unit s (unknown) date) evaluating the unknown) patient. Patient signed out to Dr. Dewey, (unknown) (no (unknown) (unknown) Antibody Screen (units (unknown) date) Negative unknown) (unknown) (no (unknown) (unknown) Antibody Screen (units (unknown) date) unknown) (unknown) (no (unknown) (unknown) Attestation: I (units (unknown) date) personally reviewed unknown) and interpreted this ECG as follows: (unknown) (no (unknown) (unknown) BACK: No CVA (units (u nknown) date) tenderness, no unknown) vertebral tenderness, no step-off's, no crepitus (unknown) (no (unknown) (unknown) BUN (9-20) mg/dL (units (unknown) date) unknown) (unknown) (no (unknown) (unknown) BUN 8 L (9-20) (units (unknown) date) mg/dL unknown) (unknown) (no (unknown) (unknown) BUN/Creatinine (units (unknown) date) Ratio (6-22) unknown) (unknown) (no (unknown) (unknown) BUN/Creatinine (units (unknown) date) Ratio 19.0 (6-22) unknown) (unknown) (no (unknown) (unknown) BURNING' (units (unkno wn) date) unknown) (unknown) (no (unknown) (unknown) Baso # (Auto) (units ( unknown) date) (0-100) /uL unknown) (unknown) (no (unknown) (unknown) Baso # (Auto) 100 (units (unknown) date) (0-100) /uL unknown) (unknown) (no (unknown) (unknown) Baso % (Auto) (0-2) (unit s (unknown) date) % unknown) (unknown) (no (unknown) (unknown) Baso % (Auto) 1.4 (units (unknown) date) (0-2) % unknown) (unknown) (no (unknown) (unknown) Blood Pressure (units (unknown) date) 113/56 L unknown) (unknown) (no (unknown) (unknown) Blood Pressure (units (unknown) date) 121/73 130/82 unknown) (unknown) (no (unknown) (unknown) Blood Pressure (units (unknown) date) 133/92 H unknown) (unknown) (no (unknown) (unknown) Blood Pressure (units (unknown) date) 135/88 144/96 H unknown) (unknown) (no (unknown) (unknown) Blood Pressure (units (unknown) date) 137/72 106/52 L unknown) (unknown) (no (unknown) (unknown) Blood Pressure (units (unknown) date) 146/82 H unknown) (unknown) (no (unknown) (unknown) Blood Pressure (units (unknown) date) 146/90 H unknown) (unknown) (no (unknown) (unknown) Blood Pressure (units (unknown) date) 148/91 H 137/84 unknown) (unknown) (no (unknown) (unknown) Blood Pressure (units (unknown) date) 149/94 H 01/14/23 unknown) 10:22 (unknown) (no (unknown) (unknown) Blood Pressure (units (unknown) date) 149/94 H unknown) (unknown) (no (unknown) (unknown) Blood Pressure (units (unknown) date) 151/87 H unknown) (unknown) (no (unknown) (unknown) Blood Pressure (units (unknown) date) 155/97 H unknown) (unknown) (no (unknown) (unknown) Blood Pressure (units (unknown) date) 160/97 H unknown) (unknown) (no (unknown) (unknown) Blood Pressure (units (unknown) date) 163/88 H unknown) (unknown) (no (unknown) (unknown) Blood Pressure (units (unknown) date) 164/106 H 141/98 H unknown) (unknown) (no (unknown) (unknown) Blood Pressure (units (unknown) date) 172/88 H unknown) (unknown) (no (unknown) (unknown) Blood Pressure (units (unknown) date) 181/95 H unknown) (unknown) (no (unknown) (unknown) Blood Pressure (units (unknown) date) unknown) (unknown) (no (unknown) (unknown) Blood Type O (units (u nknown) date) Positive unknown) (unknown) (no (unknown) (unknown) Blood Type (units (unk nown) date) unknown) (unknown) (no (unknown) (unknown) COVID19 -Nasal (units (unknown) date) RAPID Stat unknown) (unknown) (no (unknown) (unknown) CT C-spine shows (units (unknown) date) degenerative change unknown) but no fracture. CT chest abdomen pelvis (unknown) (no (unknown) (unknown) CT cervical spine (units (unknown) date) wo con Stat unknown) (unknown) (no (unknown) (unknown) CT chest abd pel w (units (unknown) date) con Stat unknown) (unknown) (no (unknown) (unknown) CT head/brain wo (units (unknown) date) con Stat unknown) (unknown) (no (unknown) (unknown) CVS: Heart sounds (units (unknown) date) are normal, no unknown) murmur noted, No JVD. (unknown) (no (unknown) (unknown) Calcium (8.4-10.2) (units (unknown) date) mg/dL unknown) (unknown) (no (unknown) (unknown) Calcium 8.5 (units (un known) date) (8.4-10.2) mg/dL unknown) (unknown) (no (unknown) (unknown) Carbon Dioxide (units (unknown) date) (22-32) mmol/L unknown) (unknown) (no (unknown) (unknown) Carbon Dioxide 30 (units (unknown) date) (22-32) mmol/L unknown) (unknown) (no (unknown) (unknown) Chief Complaint: (units (unknown) date) Trauma unknown) (unknown) (no (unknown) (unknown) Chloride (98-107) (units (unknown) date) mmol/L unknown) (unknown) (no (unknown) (unknown) Chloride 100 (units (u nknown) date) (98-107) mmol/L unknown) (unknown) (no (unknown) (unknown) Chronic low back (units (unknown) date) pain unknown) (unknown) (no (unknown) (unknown) Clinical (units (unkno wn) date) Impression: unknown) (unknown) (no (unknown) (unknown) Complete Blood (units (unknown) date) Count AUTO DIFF Stat unknown) (unknown) (no (unknown) (unknown) Comprehensive (units ( unknown) date) Metabolic Panel Stat unknown) (unknown) (no (unknown) (unknown) Consult to [facility] [place] - (units (unknown) date) 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) (unknown) (no (unknown) (unknown) Course (units (unkno wn) date) unknown) (unknown) (no (unknown) (unknown) Creatinine (units (unk nown) date) (0.66-1.25) mg/dL unknown) (unknown) (no (unknown) (unknown) Creatinine 0.42 L (units (unknown) date) (0.66-1.25) mg/dL unknown) (unknown) (no (unknown) (unknown) : 1970 (units (unknown) date) Acct:[id number] unknown) (unknown) (no (unknown) (unknown) Date of Service: (units (unknown) date) 01/14/23 unknown) (unknown) (no (unknown) (unknown) Departure (units (unkn own) date) unknown) (unknown) (no (unknown) (unknown) Diphenhydramine HCl (unit s (unknown) date) (Diphenhydramine 50 unknown) Mg/Ml Vial) 50 mg IV NOW ONE (unknown) (no (unknown) (unknown) Diphtheria/Tetanus/ (unit s (unknown) date) Acell Pertussis unknown) (Tet,Diph,Pertuss(Ac ell),Vac/Pf 0.5 Ml (unknown) (no (unknown) (unknown) Discharge Plan (units (unknown) date) unknown) (unknown) (no (unknown) (unknown) Discontinued (units (u nknown) date) Medications unknown) (unknown) (no (unknown) (unknown) Documented By: AT (units (unknown) date) unknown) (unknown) (no (unknown) (unknown) Documented By: KB (units (unknown) date) unknown) (unknown) (no (unknown) (unknown) ECG Data (units (unkno wn) date) unknown) (unknown) (no (unknown) (unknown) ED Orders (units (unkn own) date) unknown) (unknown) (no (unknown) (unknown) EKG-12 Lead Stat (units (unknown) date) unknown) (unknown) (no (unknown) (unknown) ENT: Patient has (units (unknown) date) superficial scabbed unknown) laceration over his right brow, does not (unknown) (no (unknown) (unknown) ER Physician: (units ( unknown) date) Octavio Dewey D.O. unknown) (unknown) (no (unknown) (unknown) ETOH [Ethanol (units ( unknown) date) (ETOH)] Stat unknown) (unknown) (no (unknown) (unknown) EXT: Atraumatic (units (unknown) date) other than skin unknown) changes. hips are nontender, no pedal edema, (unknown) (no (unknown) (unknown) EYES: PERRLA, EOMI (units (unknown) date) unknown) (unknown) (no (unknown) (unknown) Emergency Report (units (unknown) date) unknown) (unknown) (no (unknown) (unknown) Eos # (Auto) (units (u nknown) date) (0-450) /uL unknown) (unknown) (no (unknown) (unknown) Eos # (Auto) 100 (units (unknown) date) (0-450) /uL unknown) (unknown) (no (unknown) (unknown) Eos % (Auto) (2-4) (units (unknown) date) % unknown) (unknown) (no (unknown) (unknown) Eos % (Auto) 2.2 (units (unknown) date) (2-4) % unknown) (unknown) (no (unknown) (unknown) Estimated GFR > 60 (units (unknown) date) (>60) mL/min unknown) (unknown) (no (unknown) (unknown) Estimated GFR (>60) (unit s (unknown) date) mL/min unknown) (unknown) (no (unknown) (unknown) Ethanol (ETOH) Stat (unit s (unknown) date) unknown) (unknown) (no (unknown) (unknown) Ethyl Alcohol ( - (units (unknown) date) 10) mg/dL unknown) (unknown) (no (unknown) (unknown) Ethyl Alcohol 308 H (unit s (unknown) date) ( - 10) mg/dL unknown) (unknown) (no (unknown) (unknown) Exam (units (unkno wn) date) unknown) (unknown) (no (unknown) (unknown) FEELS LIKE (units (unk nown) date) unknown) (unknown) (no (unknown) (unknown) GEN: C-collar was (units (unknown) date) placed by EMS in the unknown) field but patient would not keep it on. (unknown) (no (unknown) (unknown) General (units (unkno wn) date) unknown) (unknown) (no (unknown) (unknown) Globulin (1.7-4.1) (units (unknown) date) g/dL unknown) (unknown) (no (unknown) (unknown) Globulin 3.2 (units (u nknown) date) (1.7-4.1) g/dL unknown) (unknown) (no (unknown) (unknown) Glucose (70-100) (units (unknown) date) mg/dL unknown) (unknown) (no (unknown) (unknown) Glucose 254 H (units ( unknown) date) (70-100) mg/dL unknown) (unknown) (no (unknown) (unknown) Glucose POC 344 (units (unknown) date) unknown) (unknown) (no (unknown) (unknown) HEAD: No evidence (units (unknown) date) of trauma, no unknown) raccoon/Johnson sign. (unknown) (no (unknown) (unknown) HEARING (units (unkno wn) date) unknown) (unknown) (no (unknown) (unknown) HPI - Trauma (units (u nknown) date) unknown) (unknown) (no (unknown) (unknown) HPI narrative: (units (unknown) date) unknown) (unknown) (no (unknown) (unknown) Hct (41-53) % (units ( unknown) date) unknown) (unknown) (no (unknown) (unknown) Hct 36.9 L (41-53) (units (unknown) date) % unknown) (unknown) (no (unknown) (unknown) Hgb (13.5-17.5) (units (unknown) date) g/dL unknown) (unknown) (no (unknown) (unknown) Hgb 12.3 L (units (unk nown) date) (13.5-17.5) g/dL unknown) (unknown) (no (unknown) (unknown) History of Present (units (unknown) date) Illness unknown) (unknown) (no (unknown) (unknown) Home Medications (units (unknown) date) unknown) (unknown) (no (unknown) (unknown) INR (0.9-1.3) (units ( unknown) date) unknown) (unknown) (no (unknown) (unknown) INR 1.0 (0.9-1.3) (units (unknown) date) unknown) (unknown) (no (unknown) (unknown) Initial Vital Signs (unit s (unknown) date) unknown) (unknown) (no (unknown) (unknown) Initial Vital (units ( unknown) date) Signs: unknown) (unknown) (no (unknown) (unknown) Interpretation: (units (unknown) date) unknown) (unknown) (no (unknown) (unknown) [facility] (units (unknown) date) [address] unknown) [place] [address] (unknown) (no (unknown) (unknown) Ketorolac (units (unkn own) date) Tromethamine unknown) (Ketorolac 30 Mg/Ml Vial) 15 mg IV NOW ONE (unknown) (no (unknown) (unknown) LOSS AT (units (unkno wn) date) unknown) (unknown) (no (unknown) (unknown) Lab Data (units (unkno wn) date) unknown) (unknown) (no (unknown) (unknown) Lab Results (units (un known) date) unknown) (unknown) (no (unknown) (unknown) Labs show an ETOH (units (unknown) date) of 308, patient has unknown) a hemoglobin of 12 baseline compared to (unknown) (no (unknown) (unknown) Labs: (units (unkno wn) date) unknown) (unknown) (no (unknown) (unknown) Lactate (0.7-2.1) (units (unknown) date) mmol/L unknown) (unknown) (no (unknown) (unknown) Lactate (Lactic (units (unknown) date) Acid) Stat unknown) (unknown) (no (unknown) (unknown) Lactate 2.1 1.9 (units (unknown) date) (0.7-2.1) mmol/L unknown) (unknown) (no (unknown) (unknown) Last Admin: (units (un known) date) 01/14/23 10:42 Dose: unknown) 0.5 mg (unknown) (no (unknown) (unknown) Last Admin: (units (un known) date) 01/14/23 11:11 Dose: unknown) 50 mg (unknown) (no (unknown) (unknown) Last Admin: (units (un known) date) 01/14/23 11:12 Dose: unknown) 125 mg (unknown) (no (unknown) (unknown) Last Admin: (units (un known) date) 01/14/23 14:28 Dose: unknown) 260 mg (unknown) (no (unknown) (unknown) Last Admin: (units (un known) date) 01/14/23 14:29 Dose: unknown) 650 mg (unknown) (no (unknown) (unknown) Last Admin: (units (un known) date) 01/14/23 15:09 Dose: unknown) 0.5 ml (unknown) (no (unknown) (unknown) Last Admin: (units (un known) date) 01/14/23 18:00 Dose: unknown) 15 mg (unknown) (no (unknown) (unknown) Limitations: no (units (unknown) date) limitations unknown) (unknown) (no (unknown) (unknown) Lipase (23-300) U/L (unit s (unknown) date) unknown) (unknown) (no (unknown) (unknown) Lipase 109 (23-300) (unit s (unknown) date) U/L unknown) (unknown) (no (unknown) (unknown) Lipase Stat (units (un known) date) unknown) (unknown) (no (unknown) (unknown) Lorazepam (units (unkn own) date) (Lorazepam 2 Mg/Ml unknown) Inj) 0.5 mg IV NOW ONE (unknown) (no (unknown) (unknown) Lorazepam (units (unkn own) date) (Lorazepam 2 Mg/Ml unknown) Inj) 0.5 mg IV Q2HR PRN (unknown) (no (unknown) (unknown) Lymph # (Auto) (units (unknown) date) (0891-8130) /uL unknown) (unknown) (no (unknown) (unknown) Lymph # (Auto) 1700 (unit s (unknown) date) (7792-7501) /uL unknown) (unknown) (no (unknown) (unknown) Lymph % (Auto) (units (unknown) date) (25-40) % unknown) (unknown) (no (unknown) (unknown) Lymph % (Auto) 39.1 (unit s (unknown) date) (25-40) % unknown) (unknown) (no (unknown) (unknown) MCH (26-34) PG (units (unknown) date) unknown) (unknown) (no (unknown) (unknown) MCH 32.5 (26-34) PG (unit s (unknown) date) unknown) (unknown) (no (unknown) (unknown) MCHC (30-36) % (units (unknown) date) unknown) (unknown) (no (unknown) (unknown) MCHC 33.5 (30-36) % (unit s (unknown) date) unknown) (unknown) (no (unknown) (unknown) MCV (80-100) fL (units (unknown) date) unknown) (unknown) (no (unknown) (unknown) MCV 97.1 (80-100) (units (unknown) date) fL unknown) (unknown) (no (unknown) (unknown) MDM - Trauma (units (u nknown) date) unknown) (unknown) (no (unknown) (unknown) MDM Narrative (units ( unknown) date) unknown) (unknown) (no (unknown) (unknown) Medical History (units (unknown) date) (Updated 01/14/23 @ unknown) 16:59 by Bridgett Garrido DO) (unknown) (no (unknown) (unknown) Medical decision (units (unknown) date) making narrative: unknown) (unknown) (no (unknown) (unknown) Medication (units (unk nown) date) Instructions unknown) Recorded Confirmed (unknown) (no (unknown) (unknown) Methylprednisolone (units (unknown) date) (Methylprednisolone unknown) 125 Mg/2 Ml Vial) 125 mg IV NOW ONE (unknown) (no (unknown) (unknown) Micro UA Comment (units (unknown) date) Microscopic normal unknown) (unknown) (no (unknown) (unknown) Micro UA Comment (units (unknown) date) unknown) (unknown) (no (unknown) (unknown) Mode of arrival: (units (unknown) date) EMS unknown) (unknown) (no (unknown) (unknown) Pender # (Auto) (units ( unknown) date) (0-900) /uL unknown) (unknown) (no (unknown) (unknown) Pender # (Auto) 600 (units (unknown) date) (0-900) /uL unknown) (unknown) (no (unknown) (unknown) Pender % (Auto) (units ( unknown) date) (3-14) % unknown) (unknown) (no (unknown) (unknown) Pender % (Auto) 14.9 (units (unknown) date) H (3-14) % unknown) (unknown) (no (unknown) (unknown) NECK: Nontender, (units (unknown) date) painless range of unknown) motion, trachea midline (unknown) (no (unknown) (unknown) NEURO: Oriented (units (unknown) date) AOx3, neuro is unknown) grossly intact, sensation and motor is normal all (unknown) (no (unknown) (unknown) Narrative: (units (unk nown) date) unknown) (unknown) (no (unknown) (unknown) Neut # (Auto) (units ( unknown) date) (0242-6035) /uL unknown) (unknown) (no (unknown) (unknown) Neut # (Auto) 1800 (units (unknown) date) (7088-5439) /uL unknown) (unknown) (no (unknown) (unknown) Neut % (Auto) (units ( unknown) date) (50-75) % unknown) (unknown) (no (unknown) (unknown) Neut % (Auto) 42.4 (units (unknown) date) L (50-75) % unknown) (unknown) (no (unknown) (unknown) No Action (units (unkn own) date) unknown) (unknown) (no (unknown) (unknown) Nontender, (units (unk nown) date) incisions healed. unknown) (unknown) (no (unknown) (unknown) Ordered: (units (unkno wn) date) unknown) (unknown) (no (unknown) (unknown) Orders (units (unkno wn) date) unknown) (unknown) (no (unknown) (unknown) Oxygen Delivery (units (unknown) date) Method Room Air unknown) 01/14/23 10:22 (unknown) (no (unknown) (unknown) Oxygen Delivery (units (unknown) date) Method Room Air Room unknown) Air (unknown) (no (unknown) (unknown) Oxygen Delivery (units (unknown) date) Method Room Air unknown) (unknown) (no (unknown) (unknown) Oxygen Delivery (units (unknown) date) Method unknown) (unknown) (no (unknown) (unknown) PRN Reason: Anxiety (unit s (unknown) date) unknown) (unknown) (no (unknown) (unknown) PSYCH: Normal mood (units (unknown) date) and affect unknown) (unknown) (no (unknown) (unknown) PT (10.1-12.7) (units (unknown) date) SECONDS unknown) (unknown) (no (unknown) (unknown) PT 11.2 (10.1-12.7) (unit s (unknown) date) SECONDS unknown) (unknown) (no (unknown) (unknown) PTT Partial (units (un known) date) Thromboplastin Rodolfo unknown) Stat (unknown) (no (unknown) (unknown) Patient Comments: (units (unknown) date) unknown) (unknown) (no (unknown) (unknown) Patient History (units (unknown) date) unknown) (unknown) (no (unknown) (unknown) Patient appears in (units (unknown) date) moderate distress. unknown) Patient is confused has slightly slurred (unknown) (no (unknown) (unknown) Patient denies (units (unknown) date) pain, no shortness unknown) of breath, no GI or urinary symptoms. He is (unknown) (no (unknown) (unknown) Patient had (units (un known) date) Solu-Medrol unknown) methylprednisolone for pretreatment for CT, he had (unknown) (no (unknown) (unknown) Patient was CT scan (unit s (unknown) date) secondary to unknown) intoxication unclear mechanism of his prior (unknown) (no (unknown) (unknown) Patient was being (units (unknown) date) evaluated by 1 unknown) facility, they asked for repeat EKG for QTC (unknown) (no (unknown) (unknown) Patient: (units (unkno wn) date) Octavio Romo MR#: unknown) M00 (unknown) (no (unknown) (unknown) Phenobarbital (units ( unknown) date) (Phenobarbital 65 unknown) Mg/Ml Vial) 260 mg IV NOW ONE (unknown) (no (unknown) (unknown) Plt Count (150-400) (unit s (unknown) date) X103/uL unknown) (unknown) (no (unknown) (unknown) Plt Count 296 (units ( unknown) date) (150-400) X103/uL unknown) (unknown) (no (unknown) (unknown) Point of Care (units ( unknown) date) Testing unknown) (unknown) (no (unknown) (unknown) Positive Nexus (units (unknown) date) criteria, there is unknown) no midline line tenderness, distracting (unknown) (no (unknown) (unknown) Potassium (3.4-5.1) (unit s (unknown) date) mmol/L unknown) (unknown) (no (unknown) (unknown) Potassium 3.9 (units ( unknown) date) (3.4-5.1) mmol/L unknown) (unknown) (no (unknown) (unknown) Prescriptions: (units (unknown) date) unknown) (unknown) (no (unknown) (unknown) Prothrombin Time (units (unknown) date) INR Stat unknown) (unknown) (no (unknown) (unknown) Pulse Oximetry 93 (units (unknown) date) 93 unknown) (unknown) (no (unknown) (unknown) Pulse Oximetry 93 (units (unknown) date) 95 unknown) (unknown) (no (unknown) (unknown) Pulse Oximetry 93 (units (unknown) date) unknown) (unknown) (no (unknown) (unknown) Pulse Oximetry 94 (units (unknown) date) 91 unknown) (unknown) (no (unknown) (unknown) Pulse Oximetry 94 (units (unknown) date) 94 unknown) (unknown) (no (unknown) (unknown) Pulse Oximetry 94 (units (unknown) date) 96 unknown) (unknown) (no (unknown) (unknown) Pulse Oximetry 94 (units (unknown) date) unknown) (unknown) (no (unknown) (unknown) Pulse Oximetry 95 (units (unknown) date) 94 unknown) (unknown) (no (unknown) (unknown) Pulse Oximetry 95 (units (unknown) date) 97 unknown) (unknown) (no (unknown) (unknown) Pulse Oximetry 95 (units (unknown) date) unknown) (unknown) (no (unknown) (unknown) Pulse Oximetry 96 (units (unknown) date) unknown) (unknown) (no (unknown) (unknown) Pulse Oximetry 97 (units (unknown) date) 96 unknown) (unknown) (no (unknown) (unknown) Pulse Oximetry 97 (units (unknown) date) unknown) (unknown) (no (unknown) (unknown) Pulse Oximetry 99 (units (unknown) date) 01/14/23 10:22 unknown) (unknown) (no (unknown) (unknown) Pulse Oximetry 99 (units (unknown) date) 96 97 unknown) (unknown) (no (unknown) (unknown) Pulse Rate 74 72 (units (unknown) date) unknown) (unknown) (no (unknown) (unknown) Pulse Rate 74 78 (units (unknown) date) unknown) (unknown) (no (unknown) (unknown) Pulse Rate 74 (units ( unknown) date) unknown) (unknown) (no (unknown) (unknown) Pulse Rate 75 76 (units (unknown) date) unknown) (unknown) (no (unknown) (unknown) Pulse Rate 75 (units ( unknown) date) unknown) (unknown) (no (unknown) (unknown) Pulse Rate 76 82 (units (unknown) date) unknown) (unknown) (no (unknown) (unknown) Pulse Rate 78 80 (units (unknown) date) unknown) (unknown) (no (unknown) (unknown) Pulse Rate 80 79 (units (unknown) date) unknown) (unknown) (no (unknown) (unknown) Pulse Rate 80 (units ( unknown) date) unknown) (unknown) (no (unknown) (unknown) Pulse Rate 81 (units ( unknown) date) unknown) (unknown) (no (unknown) (unknown) Pulse Rate 85 (units ( unknown) date) unknown) (unknown) (no (unknown) (unknown) Pulse Rate 87 87 (units (unknown) date) unknown) (unknown) (no (unknown) (unknown) Pulse Rate 95 H (units (unknown) date) 01/14/23 10:22 unknown) (unknown) (no (unknown) (unknown) Pulse Rate 95 H 94 (units (unknown) date) H 87 unknown) (unknown) (no (unknown) (unknown) Pulse Rate 96 H 83 (units (unknown) date) unknown) (unknown) (no (unknown) (unknown) Pulse Rate 97 H 97 (units (unknown) date) H unknown) (unknown) (no (unknown) (unknown) RBC (4.5-5.9) (units ( unknown) date) X106/uL unknown) (unknown) (no (unknown) (unknown) RBC 3.80 L (units (unk nown) date) (4.5-5.9) X106/uL unknown) (unknown) (no (unknown) (unknown) RDW (11.6-14.8) % (units (unknown) date) unknown) (unknown) (no (unknown) (unknown) RDW 13.2 (units (unkno wn) date) (11.6-14.8) % unknown) (unknown) (no (unknown) (unknown) RESP: Chest is (units (unknown) date) nontender and has unknown) symmetric movement, no ecchymosis, breath (unknown) (no (unknown) (unknown) Related Data (units (u nknown) date) unknown) (unknown) (no (unknown) (unknown) Respiratory Rate 10 (unit s (unknown) date) L unknown) (unknown) (no (unknown) (unknown) Respiratory Rate 13 (unit s (unknown) date) 11 L unknown) (unknown) (no (unknown) (unknown) Respiratory Rate 13 (unit s (unknown) date) 13 unknown) (unknown) (no (unknown) (unknown) Respiratory Rate 13 (unit s (unknown) date) unknown) (unknown) (no (unknown) (unknown) Respiratory Rate 14 (unit s (unknown) date) 14 unknown) (unknown) (no (unknown) (unknown) Respiratory Rate 14 (unit s (unknown) date) unknown) (unknown) (no (unknown) (unknown) Respiratory Rate 15 (unit s (unknown) date) unknown) (unknown) (no (unknown) (unknown) Respiratory Rate 18 (unit s (unknown) date) 01/14/23 10:22 unknown) (unknown) (no (unknown) (unknown) Respiratory Rate 18 (unit s (unknown) date) 12 14 unknown) (unknown) (no (unknown) (unknown) Respiratory Rate 19 (unit s (unknown) date) unknown) (unknown) (no (unknown) (unknown) Respiratory Rate 20 (unit s (unknown) date) unknown) (unknown) (no (unknown) (unknown) Respiratory Rate 8 (units (unknown) date) L unknown) (unknown) (no (unknown) (unknown) Respiratory Rate (units (unknown) date) unknown) (unknown) (no (unknown) (unknown) Review of Systems (units (unknown) date) unknown) (unknown) (no (unknown) (unknown) Rx Instructions: (units (unknown) date) unknown) (unknown) (no (unknown) (unknown) SARS-CoV-2 (PCR) (units (unknown) date) (Negative) unknown) (unknown) (no (unknown) (unknown) SARS-CoV-2 (PCR) (units (unknown) date) Negative (Negative) unknown) (unknown) (no (unknown) (unknown) SKIN: Patient has a (unit s (unknown) date) small 2 cm burn on unknown) his right forearm that has blistered and (unknown) (no (unknown) (unknown) See Rx Instructions (unit s (unknown) date) .ROUTE .COMPLEX unknown) (unknown) (no (unknown) (unknown) Signed By: (units (unk nown) date) unknown) (unknown) (no (unknown) (unknown) Smoking Status: (units (unknown) date) Never smoker unknown) (unknown) (no (unknown) (unknown) Social History (units (unknown) date) (Reviewed 04/13/20 @ unknown) 20:09 by Derick Crandall MD) (unknown) (no (unknown) (unknown) Sodium (137-145) (units (unknown) date) mmol/L unknown) (unknown) (no (unknown) (unknown) Sodium 140 (units (unk nown) date) (137-145) mmol/L unknown) (unknown) (no (unknown) (unknown) Solostar U-100 (units (unknown) date) Insulin) unknown) (unknown) (no (unknown) (unknown) Solu-Medrol as he (units (unknown) date) was felt stable. CT unknown) imaging of the brain shows soft tissue (unknown) (no (unknown) (unknown) Source: patient, (units (unknown) date) EMS, RN notes unknown) reviewed and old records reviewed (unknown) (no (unknown) (unknown) Stated Complaint: (units (unknown) date) Trauma unknown) (unknown) (no (unknown) (unknown) Stop: 01/14/23 (units (unknown) date) 10:27 unknown) (unknown) (no (unknown) (unknown) Stop: 01/14/23 (units (unknown) date) 10:29 unknown) (unknown) (no (unknown) (unknown) Stop: 01/14/23 (units (unknown) date) 10:58 unknown) (unknown) (no (unknown) (unknown) Stop: 01/14/23 (units (unknown) date) 13:43 unknown) (unknown) (no (unknown) (unknown) Stop: 01/14/23 (units (unknown) date) 14:19 unknown) (unknown) (no (unknown) (unknown) Stop: 01/14/23 (units (unknown) date) 17:53 unknown) (unknown) (no (unknown) (unknown) Substance Use Type: (unit s (unknown) date) does not use unknown) (unknown) (no (unknown) (unknown) Suicidal ideation, (units (unknown) date) Alcohol abuse, unknown) Facial laceration (unknown) (no (unknown) (unknown) Syringe) 0.5 ml IM (units (unknown) date) .ONCE ONE unknown) (unknown) (no (unknown) (unknown) TAKE 1 CAPSULE BY (units (unknown) date) MOUTH DAILY unknown) (unknown) (no (unknown) (unknown) TAKE 1 TABLET BY (units (unknown) date) MOUTH EVERY EVENING unknown) (unknown) (no (unknown) (unknown) TAKE 1 TABLET BY (units (unknown) date) MOUTH EVERY MORNING unknown) (unknown) (no (unknown) (unknown) Take 1 tablet by (units (unknown) date) mouth twice a day unknown) (unknown) (no (unknown) (unknown) Temperature 97.4 F (units (unknown) date) L 01/14/23 10:22 unknown) (unknown) (no (unknown) (unknown) Temperature 97.4 F (units (unknown) date) L unknown) (unknown) (no (unknown) (unknown) Temperature (units (un known) date) unknown) (unknown) (no (unknown) (unknown) They also note that (unit s (unknown) date) they were called out unknown) for a wellness check yesterday they (unknown) (no (unknown) (unknown) This is a (units (unkno wn) date) 53-year-old male who unknown) appears intoxicated, he does have scabbing with a (unknown) (no (unknown) (unknown) This is a (units (unkn own) date) 53-year-old male unknown) with known history of alcohol abuse, insulin (unknown) (no (unknown) (unknown) Time Seen by (units (u nknown) date) Provider: 01/14/23 unknown) 10:26 (unknown) (no (unknown) (unknown) To sleep sinus (units (unknown) date) rhythm rate of 72 [place] unknown) 130 QRS of 98 QTC [address]. No acute ST (unknown) (no (unknown) (unknown) Total Bilirubin (units (unknown) date) (0.2-1.3) mg/dL unknown) (unknown) (no (unknown) (unknown) Total Bilirubin 0.4 (unit s (unknown) date) (0.2-1.3) mg/dL unknown) (unknown) (no (unknown) (unknown) Total Protein (units ( unknown) date) (6.3-8.2) g/dL unknown) (unknown) (no (unknown) (unknown) Total Protein 7.2 (units (unknown) date) (6.3-8.2) g/dL unknown) (unknown) (no (unknown) (unknown) Tylenol her (units (un known) date) headache and unknown) phenobarb 260 for alcohol withdrawal patient has not (unknown) (no (unknown) (unknown) Type and Screen (units (unknown) date) Stat unknown) (unknown) (no (unknown) (unknown) U Benzodiazepines (units (unknown) date) Scrn (Negative) unknown) (unknown) (no (unknown) (unknown) U Benzodiazepines (units (unknown) date) Scrn Positive H unknown) (Negative) (unknown) (no (unknown) (unknown) U Marijuana (THC) (units (unknown) date) Screen (Negative) unknown) (unknown) (no (unknown) (unknown) U Marijuana (THC) (units (unknown) date) Screen Negative unknown) (Negative) (unknown) (no (unknown) (unknown) U Methamphetamines (units (unknown) date) Scrn (Negative) unknown) (unknown) (no (unknown) (unknown) U Methamphetamines (units (unknown) date) Scrn Negative unknown) (Negative) (unknown) (no (unknown) (unknown) U Opiates 300ng/mL (units (unknown) date) cut (Negative) unknown) (unknown) (no (unknown) (unknown) U Opiates 300ng/mL (units (unknown) date) cut Positive H unknown) (Negative) (unknown) (no (unknown) (unknown) U Tricyclic (units (un known) date) Antidepress unknown) (Negative) (unknown) (no (unknown) (unknown) U Tricyclic (units (un known) date) Antidepress Negative unknown) (Negative) (unknown) (no (unknown) (unknown) Ur Amphetamines (units (unknown) date) Screen (Negative) unknown) (unknown) (no (unknown) (unknown) Ur Amphetamines (units (unknown) date) Screen Negative unknown) (Negative) (unknown) (no (unknown) (unknown) Ur Barbiturates (units (unknown) date) Screen (Negative) unknown) (unknown) (no (unknown) (unknown) Ur Barbiturates (units (unknown) date) Screen Negative unknown) (Negative) (unknown) (no (unknown) (unknown) Ur Culture (units (unk nown) date) Indicated? Cult not unknown) indicated (unknown) (no (unknown) (unknown) Ur Culture (units (unk nown) date) Indicated? unknown) (unknown) (no (unknown) (unknown) Ur Leukocyte (units (u nknown) date) Esterase (NEGATIVE) unknown) (unknown) (no (unknown) (unknown) Ur Leukocyte (units (u nknown) date) Esterase Negative unknown) (NEGATIVE) (unknown) (no (unknown) (unknown) Ur MDMA Scrn (units (u nknown) date) (Ecstasy) (Negative) unknown) (unknown) (no (unknown) (unknown) Ur MDMA Scrn (units (u nknown) date) (Ecstasy) Negative unknown) (Negative) (unknown) (no (unknown) (unknown) Ur Oxycodone Screen (unit s (unknown) date) (Negative) unknown) (unknown) (no (unknown) (unknown) Ur Oxycodone Screen (unit s (unknown) date) Negative (Negative) unknown) (unknown) (no (unknown) (unknown) Ur Phencyclidine (units (unknown) date) Scrn (Negative) unknown) (unknown) (no (unknown) (unknown) Ur Phencyclidine (units (unknown) date) Scrn Negative unknown) (Negative) (unknown) (no (unknown) (unknown) Ur Specific [place] (unit s (unknown) date) (1.000-1.035) unknown) (unknown) (no (unknown) (unknown) Ur Specific [place] (unit s (unknown) date) 1.010 (1.000-1.035) unknown) (unknown) (no (unknown) (unknown) Urinalysis and (units (unknown) date) Microscopic Stat unknown) (unknown) (no (unknown) (unknown) Urine Appearance (units (unknown) date) Clear unknown) (unknown) (no (unknown) (unknown) Urine Appearance (units (unknown) date) unknown) (unknown) (no (unknown) (unknown) Urine Bacteria (units (unknown) date) (None) unknown) (unknown) (no (unknown) (unknown) Urine Bacteria None (unit s (unknown) date) seen (None) unknown) (unknown) (no (unknown) (unknown) Urine Bilirubin (units (unknown) date) (NEGATIVE) unknown) (unknown) (no (unknown) (unknown) Urine Bilirubin (units (unknown) date) Negative (NEGATIVE) unknown) (unknown) (no (unknown) (unknown) Urine Cocaine (units ( unknown) date) Screen (Negative) unknown) (unknown) (no (unknown) (unknown) Urine Cocaine (units ( unknown) date) Screen Negative unknown) (Negative) (unknown) (no (unknown) (unknown) Urine Color Yellow (units (unknown) date) unknown) (unknown) (no (unknown) (unknown) Urine Color (units (un known) date) unknown) (unknown) (no (unknown) (unknown) Urine Drug Screen, (units (unknown) date) Rapid Stat unknown) (unknown) (no (unknown) (unknown) Urine Glucose (UA) (units (unknown) date) (Negative) g/dL unknown) (unknown) (no (unknown) (unknown) Urine Glucose (UA) (units (unknown) date) 2+ H (Negative) g/dL unknown) (unknown) (no (unknown) (unknown) Urine Ketones (units ( unknown) date) (NEGATIVE) unknown) (unknown) (no (unknown) (unknown) Urine Ketones (units ( unknown) date) Negative (NEGATIVE) unknown) (unknown) (no (unknown) (unknown) Urine Methadone (units (unknown) date) Screen (Negative) unknown) (unknown) (no (unknown) (unknown) Urine Methadone (units (unknown) date) Screen Negative unknown) (Negative) (unknown) (no (unknown) (unknown) Urine Nitrate (units ( unknown) date) (Negative) unknown) (unknown) (no (unknown) (unknown) Urine Nitrate (units ( unknown) date) Negative (Negative) unknown) (unknown) (no (unknown) (unknown) Urine Occult Blood (units (unknown) date) (Negative) unknown) (unknown) (no (unknown) (unknown) Urine Occult Blood (units (unknown) date) Negative (Negative) unknown) (unknown) (no (unknown) (unknown) Urine Protein (units ( unknown) date) (Negative) unknown) (unknown) (no (unknown) (unknown) Urine Protein (units ( unknown) date) Negative (Negative) unknown) (unknown) (no (unknown) (unknown) Urine RBC (0-5/HPF) (unit s (unknown) date) unknown) (unknown) (no (unknown) (unknown) Urine RBC None seen (unit s (unknown) date) (0-5/HPF) unknown) (unknown) (no (unknown) (unknown) Urine Urobilinogen (units (unknown) date) (0.2) E.U./dL unknown) (unknown) (no (unknown) (unknown) Urine Urobilinogen (units (unknown) date) 1.0 (0.2) E.U./dL unknown) (unknown) (no (unknown) (unknown) Urine WBC (0-5/HPF) (unit s (unknown) date) unknown) (unknown) (no (unknown) (unknown) Urine WBC None seen (unit s (unknown) date) (0-5/HPF) unknown) (unknown) (no (unknown) (unknown) Urine pH (4.5-8.0) (units (unknown) date) unknown) (unknown) (no (unknown) (unknown) Urine pH 6.5 (units (u nknown) date) (4.5-8.0) unknown) (unknown) (no (unknown) (unknown) Vital Signs - 8 hr (units (unknown) date) unknown) (unknown) (no (unknown) (unknown) Vital Signs (units (un known) date) unknown) (unknown) (no (unknown) (unknown) Vital signs: (units (u nknown) date) unknown) (unknown) (no (unknown) (unknown) WAS (units (unkno wn) date) unknown) (unknown) (no (unknown) (unknown) WBC (4.5-11.0) (units (unknown) date) X103/uL unknown) (unknown) (no (unknown) (unknown) WBC 4.3 L (units (unkn own) date) (4.5-11.0) X103/uL unknown) (unknown) (no (unknown) (unknown) XR chest 1V Stat (units (unknown) date) unknown) (unknown) (no (unknown) (unknown) XR pelvis 1-2V Stat (unit s (unknown) date) unknown) (unknown) (no (unknown) (unknown) [Embedded Image Not (unit s (unknown) date) Available] unknown) (unknown) (no (unknown) (unknown) [From BETADINE] (units (unknown) date) FEELS LIKE unknown) (unknown) (no (unknown) (unknown) [SHELLFISH DERIVED] (unit s (unknown) date) LIKE IT unknown) (unknown) (no (unknown) (unknown) a small burn on his (units (unknown) date) right forearm and he unknown) has bruising his girlfriend told medics (unknown) (no (unknown) (unknown) abdomen pelvis there (unit s (unknown) date) was some delay as it unknown) was found patient has reported allergy (unknown) (no (unknown) (unknown) alcohol intake (units (unknown) date) frequency: 0-2 unknown) drinks per day (unknown) (no (unknown) (unknown) and when asked he (units (unknown) date) states he does want unknown) to kill himself when asked why he does not (unknown) (no (unknown) (unknown) answer. When asked (units (unknown) date) if he has a plan he unknown) does not give one. Medics a girlfriend (unknown) (no (unknown) (unknown) anything amiss in (units (unknown) date) the house but he had unknown) been found on the ground in the bathroom. (unknown) (no (unknown) (unknown) appears older with (units (unknown) date) healing skin unknown) underneath, warm and dry, no crepitus and (unknown) (no (unknown) (unknown) are 8788 and 146 (units (unknown) date) with a negative unknown) bilirubin and lipase of 109. EKG shows a sinus (unknown) (no (unknown) (unknown) arrived. (units (unkno wn) date) unknown) (unknown) (no (unknown) (unknown) atorvastatin 40 mg (units (unknown) date) tablet 40 mg PO unknown) BEDTIME 01/14/23 01/14/23 (unknown) (no (unknown) (unknown) atorvastatin 40 mg (units (unknown) date) tablet unknown) (unknown) (no (unknown) (unknown) been tachycardic (units (unknown) date) since then, no unknown) hypertension. Patient did receive a dose of IV (unknown) (no (unknown) (unknown) chest and abdomen (units (unknown) date) although it appears unknown) little bit older, and he has a burn on his (unknown) (no (unknown) (unknown) chest, right upper (units (unknown) date) abdomen and right unknown) lower abdomen. (unknown) (no (unknown) (unknown) ction at baseline (units (unknown) date) at 0.42 normal unknown) electrolytes glucose is 254, AST ALT alk-phos (unknown) (no (unknown) (unknown) currently voluntary (unit s (unknown) date) seeking dual unknown) treatment. (unknown) (no (unknown) (unknown) dependent diabetes (units (unknown) date) and chronic pain unknown) with a pain pump in his left abdomen. Patie (unknown) (no (unknown) (unknown) dextroamphetamine-a (unit s (unknown) date) mphetamine 20 20 mg unknown) PO BID 01/14/23 01/14/23 (unknown) (no (unknown) (unknown) dextroamphetamine-a (unit s (unknown) date) mphetamine 20 mg unknown) tablet (unknown) (no (unknown) (unknown) do his injections (units (unknown) date) which he states are unknown) insulin. He states he has a pain pump in (unknown) (no (unknown) (unknown) drinks at least a (units (unknown) date) 5th daily, he denies unknown) tobacco or illicit. He states he did not (unknown) (no (unknown) (unknown) elevation or (units (u nknown) date) depression. unknown) (unknown) (no (unknown) (unknown) eptal hematoma, no (units (unknown) date) dental or oral unknown) injury, airway is normal and with normal (unknown) (no (unknown) (unknown) found blood in a (units (unknown) date) different location unknown) but the patient was not present at that (unknown) (no (unknown) (unknown) furosemide 20 mg (units (unknown) date) tablet 20 mg PO unknown) DAILY 01/14/23 01/14/23 (unknown) (no (unknown) (unknown) furosemide 20 mg (units (unknown) date) tablet unknown) (unknown) (no (unknown) (unknown) gape, trachea is (units (unknown) date) midline, TM's are unknown) normal no hemotypanum, Nares are clear, no s (unknown) (no (unknown) (unknown) ground there was (units (unknown) date) reportedly some unknown) glass at the scene and the medics state that (unknown) (no (unknown) (unknown) his alcohol should (units (unknown) date) be around 100 around unknown) 1845. Patient does have some suicidal (unknown) (no (unknown) (unknown) his belly. He did (units (unknown) date) make statements that unknown) he wanted to kill himself to the medics (unknown) (no (unknown) (unknown) injuries with chest (unit s (unknown) date) and abdominal unknown) bruising, with CT head, C-spine and chest (unknown) (no (unknown) (unknown) injury over the (units (unknown) date) super to right unknown) orbit/right frontal bone with a small hematoma. (unknown) (no (unknown) (unknown) injury, altered (units (unknown) date) mental status, neuro unknown) deficit, positive for recent EtOH. (unknown) (no (unknown) (unknown) insulin glargine (units (unknown) date) 100 unit/mL (3 20 unknown) unit SUBCUT BEDTIME 01/14/23 01/14/23 (unknown) (no (unknown) (unknown) insulin glargine (units (unknown) date) [Lantus Solostar unknown) U-100 Insulin] 100 unit/mL (3 mL) insulin (unknown) (no (unknown) (unknown) insulin lispro 100 (units (unknown) date) unit/mL See Rx unknown) Instructions .Route .COMPLEX 01/14/23 01/14/23 (unknown) (no (unknown) (unknown) insulin lispro (units (unknown) date) [Humalog KwikPen unknown) Insulin] 100 unit/mL insulin pen (unknown) (no (unknown) (unknown) last saw the (units (u nknown) date) patient on unknown) she noted that he bought a bottle of hard (unknown) (no (unknown) (unknown) leave. He met with (units (unknown) date) our hospital social worker as unknown) he has been otherwise medically cleared (unknown) (no (unknown) (unknown) left scapular and (units (unknown) date) L1-L2 transverse unknown) process fractures, small hiatal hernia and (unknown) (no (unknown) (unknown) liquor at that time (unit s (unknown) date) and there was only unknown) about a few mL left today when EMS (unknown) (no (unknown) (unknown) lorazepam when he (units (unknown) date) initially came as unknown) patient was a little agitated and trying to (unknown) (no (unknown) (unknown) losartan 100 mg (units (unknown) date) tablet 100 mg PO unknown) DAILY 01/14/23 01/14/23 (unknown) (no (unknown) (unknown) losartan 100 mg (units (unknown) date) tablet unknown) (unknown) (no (unknown) (unknown) mL) subcutaneous (units (unknown) date) pen (Lantus unknown) (unknown) (no (unknown) (unknown) medications or (units (unknown) date) prolong his QT. He unknown) has a prior in the past and had a 449 QTC. (unknown) (no (unknown) (unknown) mg tablet (units (unkn own) date) unknown) (unknown) (no (unknown) (unknown) moving all his (units (unknown) date) extremities well. Is unknown) conversant but confused. Patient states he (unknown) (no (unknown) (unknown) normal color and (units (unknown) date) temperature, normal unknown) range of motion of extremities with normal (unknown) (no (unknown) (unknown) nt states he does (units (unknown) date) not know who he is unknown) aware he is. He is able to give his name (unknown) (no (unknown) (unknown) obtained is unclear (unit s (unknown) date) what exactly unknown) occurred. Patient was called out as a modified (unknown) (no (unknown) (unknown) occlusion, No bony (units (unknown) date) tenderness unknown) (unknown) (no (unknown) (unknown) pelvic rock is (units (unknown) date) negative, patient unknown) has device in the left lateral abdomen. (unknown) (no (unknown) (unknown) pen (units (unkno wn) date) unknown) (unknown) (no (unknown) (unknown) penicillin G (units (u nknown) date) [PENICILLIN G] unknown) Allergy Unknown LEFT EAR Verified 07/27/18 10:10 (unknown) (no (unknown) (unknown) povidone-iodine (units (unknown) date) Allergy Unknown unknown) 'SKIN Verified 07/27/18 10:10 (unknown) (no (unknown) (unknown) propranolol 20 mg (units (unknown) date) tablet 20 mg PO BID unknown) 01/14/23 01/14/23 (unknown) (no (unknown) (unknown) propranolol 20 mg (units (unknown) date) tablet unknown) (unknown) (no (unknown) (unknown) redirectable (units (u nknown) date) although he keeps unknown) saying he wants to get out of the bed. He has (unknown) (no (unknown) (unknown) rhythm no acute ST (units (unknown) date) changes. Initial unknown) chest x-ray and pelvic x-ray is negative. (unknown) (no (unknown) (unknown) right forearm that (units (unknown) date) also appears little unknown) bit older. Patient was found on the (unknown) (no (unknown) (unknown) seeking placement (units (unknown) date) but currently unknown) voluntary. (unknown) (no (unknown) (unknown) shellfish derived (units (unknown) date) Allergy Unknown unknown) 'SKIN FELT Verified 07/27/18 10:10 (unknown) (no (unknown) (unknown) shows no acute (units (unknown) date) traumatic injury, unknown) remote left-sided rib fractures with remote (unknown) (no (unknown) (unknown) soap [From (units (unk nown) date) BETADINE] Allergy unknown) Unknown 'SKIN Verified 07/27/18 10:10 (unknown) (no (unknown) (unknown) some blood at the (units (unknown) date) scene in a different unknown) location. Patient had labs, imaging (unknown) (no (unknown) (unknown) some broken glass, (units (unknown) date) medics state the unknown) glass was cleaned up they did not see (unknown) (no (unknown) (unknown) sounds are normal (units (unknown) date) no crackles, wheezes unknown) or rales (unknown) (no (unknown) (unknown) speech appears (units (unknown) date) intoxicated but is unknown) conversant. (unknown) (no (unknown) (unknown) stable lung nodules (unit s (unknown) date) measuring 6 mm. unknown) (unknown) (no (unknown) (unknown) subcutaneous pen (units (unknown) date) (Humalog KwikPen unknown) (unknown) (no (unknown) (unknown) superficial lack of (unit s (unknown) date) the right forehead, unknown) he has some bruising of his anterior (unknown) (no (unknown) (unknown) tamsulosin 0.4 mg (units (unknown) date) capsule 0.4 mg PO unknown) DAILY 01/14/23 01/14/23 (unknown) (no (unknown) (unknown) tamsulosin 0.4 mg (units (unknown) date) capsule unknown) (unknown) (no (unknown) (unknown) tendon exam, 2+ (units (unknown) date) pulses in all four unknown) extremities (unknown) (no (unknown) (unknown) that is bruising on (unit s (unknown) date) his left abdomen is unknown) from injections but onto his chest and (unknown) (no (unknown) (unknown) they wanted less (units (unknown) date) than 450 repeat is unknown) 497. Patient had Benadryl but no other (unknown) (no (unknown) (unknown) they were there the (unit s (unknown) date) day before patient unknown) was not present at home but there was (unknown) (no (unknown) (unknown) thoughts no clear (units (unknown) date) active clot unknown) described to myself. That was social work (unknown) (no (unknown) (unknown) time. Patient does (units (unknown) date) not recall what unknown) trauma occurred. The somewhat repetitive. (unknown) (no (unknown) (unknown) to iodine which he (units (unknown) date) did not tell us unknown) earlier. Was pretreated with Benadryl and (unknown) (no (unknown) (unknown) trauma. (units (unkno wn) date) unknown) (unknown) (no (unknown) (unknown) upper abdomen she (units (unknown) date) is unsure. Patient unknown) was found at home in the bathroom with (unknown) (no (unknown) (unknown) what appears to be (units (unknown) date) scabbed superficial unknown) laceration over his right forehead he has (unknown) (no (unknown) (unknown) when he is (units (unk nown) date) registered. Patient unknown) is confused but follows commands he is (unknown) (no (unknown) (unknown) without decubitus. (units (unknown) date) Patient has unknown) ecchymosis that is about 4 cm on his anterior Result panel 232 (unknown) (no (unknown) (unknown) (no value) (units (unk nown) date) unknown) (unknown) (no (unknown) (unknown) (U-100) Insulin) (units (unknown) date) unknown) (unknown) (no (unknown) (unknown) 0.4 mg PO DAILY (units (unknown) date) unknown) (unknown) (no (unknown) (unknown) [id number] (units (unkno wn) date) unknown) (unknown) (no (unknown) (unknown) 01/14/23 01/14/23 (units (unknown) date) 01/14/23 Range/Units unknown) (unknown) (no (unknown) (unknown) 01/14/23 10:27 (units (unknown) date) unknown) (unknown) (no (unknown) (unknown) 01/14/23 10:29 (units (unknown) date) unknown) (unknown) (no (unknown) (unknown) 01/14/23 10:35 (units (unknown) date) unknown) (unknown) (no (unknown) (unknown) 01/14/23 10:45 (units (unknown) date) unknown) (unknown) (no (unknown) (unknown) 01/14/23 11:17 (units (unknown) date) unknown) (unknown) (no (unknown) (unknown) 01/14/23 11:23 (units (unknown) date) unknown) (unknown) (no (unknown) (unknown) 01/14/23 14:09 (units (unknown) date) unknown) (unknown) (no (unknown) (unknown) 01/14/23 15:25 (units (unknown) date) unknown) (unknown) (no (unknown) (unknown) 01/14/23 17:01 (units (unknown) date) unknown) (unknown) (no (unknown) (unknown) 01/14/23 18:15 (units (unknown) date) unknown) (unknown) (no (unknown) (unknown) 01/14/23 (units (unkno wn) date) unknown) (unknown) (no (unknown) (unknown) 100 mg PO DAILY (units (unknown) date) unknown) (unknown) (no (unknown) (unknown) 10:45 10:45 10:45 (units (unknown) date) unknown) (unknown) (no (unknown) (unknown) 10:45 11:23 13:48 (units (unknown) date) unknown) (unknown) (no (unknown) (unknown) 11:00 01/14/23 (units (unknown) date) unknown) (unknown) (no (unknown) (unknown) 11:24 01/14/23 (units (unknown) date) unknown) (unknown) (no (unknown) (unknown) 11:24 (units (unkno wn) date) unknown) (unknown) (no (unknown) (unknown) 11:30 01/14/23 (units (unknown) date) unknown) (unknown) (no (unknown) (unknown) 11:31 01/14/23 (units (unknown) date) unknown) (unknown) (no (unknown) (unknown) 11:31 (units (unkno wn) date) unknown) (unknown) (no (unknown) (unknown) 11:50 01/14/23 (units (unknown) date) unknown) (unknown) (no (unknown) (unknown) 12:05 01/14/23 (units (unknown) date) unknown) (unknown) (no (unknown) (unknown) 12:05 (units (unkno wn) date) unknown) (unknown) (no (unknown) (unknown) 12:15 01/14/23 (units (unknown) date) unknown) (unknown) (no (unknown) (unknown) 12:15 (units (unkno wn) date) unknown) (unknown) (no (unknown) (unknown) 12:30 01/14/23 (units (unknown) date) unknown) (unknown) (no (unknown) (unknown) 12:45 01/14/23 (units (unknown) date) unknown) (unknown) (no (unknown) (unknown) 12:45 (units (unkno wn) date) unknown) (unknown) (no (unknown) (unknown) 13:00 01/14/23 (units (unknown) date) unknown) (unknown) (no (unknown) (unknown) 13:01 01/14/23 (units (unknown) date) unknown) (unknown) (no (unknown) (unknown) 13:01 (units (unkno wn) date) unknown) (unknown) (no (unknown) (unknown) 13:15 01/14/23 (units (unknown) date) unknown) (unknown) (no (unknown) (unknown) 13:15 (units (unkno wn) date) unknown) (unknown) (no (unknown) (unknown) 13:30 01/14/23 (units (unknown) date) unknown) (unknown) (no (unknown) (unknown) 13:49 01/14/23 (units (unknown) date) unknown) (unknown) (no (unknown) (unknown) 13:49 (units (unkno wn) date) unknown) (unknown) (no (unknown) (unknown) 14:00 01/14/23 (units (unknown) date) unknown) (unknown) (no (unknown) (unknown) 14:09 14:09 15:25 (units (unknown) date) unknown) (unknown) (no (unknown) (unknown) 14:26 01/14/23 (units (unknown) date) unknown) (unknown) (no (unknown) (unknown) 14:26 (units (unkno wn) date) unknown) (unknown) (no (unknown) (unknown) 14:30 01/14/23 (units (unknown) date) unknown) (unknown) (no (unknown) (unknown) 14:30 (units (unkno wn) date) unknown) (unknown) (no (unknown) (unknown) 15:00 01/14/23 (units (unknown) date) unknown) (unknown) (no (unknown) (unknown) 15:02 01/14/23 (units (unknown) date) unknown) (unknown) (no (unknown) (unknown) 15:02 (units (unkno wn) date) unknown) (unknown) (no (unknown) (unknown) 15:30 01/14/23 (units (unknown) date) unknown) (unknown) (no (unknown) (unknown) 16:00 01/14/23 (units (unknown) date) unknown) (unknown) (no (unknown) (unknown) 16:00 (units (unkno wn) date) unknown) (unknown) (no (unknown) (unknown) 16:30 01/14/23 (units (unknown) date) unknown) (unknown) (no (unknown) (unknown) 17:00 01/14/23 (units (unknown) date) unknown) (unknown) (no (unknown) (unknown) 17:00 (units (unkno wn) date) unknown) (unknown) (no (unknown) (unknown) 17:30 01/14/23 (units (unknown) date) unknown) (unknown) (no (unknown) (unknown) 17:30 (units (unkno wn) date) unknown) (unknown) (no (unknown) (unknown) 18:00 01/14/23 (units (unknown) date) unknown) (unknown) (no (unknown) (unknown) 18:00 (units (unkno wn) date) unknown) (unknown) (no (unknown) (unknown) 20 mg PO BID (units (u nknown) date) unknown) (unknown) (no (unknown) (unknown) 20 mg PO DAILY (units (unknown) date) unknown) (unknown) (no (unknown) (unknown) 20 unit SUBCUT (units (unknown) date) BEDTIME unknown) (unknown) (no (unknown) (unknown) 2016 white count of (unit s (unknown) date) 4.3 normal platelets unknown) at 296. Coags are negative, renal (unknown) (no (unknown) (unknown) 4 extremities (units ( unknown) date) moving, cranial unknown) nerves II through XII are intact, GCS is 15 (unknown) (no (unknown) (unknown) 40 mg PO BEDTIME (units (unknown) date) unknown) (unknown) (no (unknown) (unknown) 91 mg/dl (unkno wn) date) (unknown) (no (unknown) (unknown) 91 mg/dl (unkno wn) date) (unknown) (no (unknown) (unknown) ABG/GI: Nontender, (units (unknown) date) soft, normal bowel unknown) sounds, no distention, no organomegaly, (unknown) (no (unknown) (unknown) ADMINISTER 2 TO 10 (units (unknown) date) UNITS UNDER THE SKIN unknown) BEFORE MEALS AND AT BEDTIME (unknown) (no (unknown) (unknown) ADMINISTER 20 UNITS (unit s (unknown) date) UNDER THE SKIN EVERY unknown) EVENING (unknown) (no (unknown) (unknown) AGE 12YR (units (unkno wn) date) unknown) (unknown) (no (unknown) (unknown) ALT (<50) IU/L (units (unknown) date) unknown) (unknown) (no (unknown) (unknown) ALT 88 H (<50) IU/L (unit s (unknown) date) unknown) (unknown) (no (unknown) (unknown) APTT (26-36) (units (u nknown) date) SECONDS unknown) (unknown) (no (unknown) (unknown) APTT 34 (26-36) (units (unknown) date) SECONDS unknown) (unknown) (no (unknown) (unknown) AST (17-59) IU/L (units (unknown) date) unknown) (unknown) (no (unknown) (unknown) AST 87 H (17-59) (units (unknown) date) IU/L unknown) (unknown) (no (unknown) (unknown) Acetaminophen (units ( unknown) date) (Acetaminophen 325 unknown) Mg Tablet) 650 mg PO NOW ONE (unknown) (no (unknown) (unknown) Age/Sex: 53 / M (units (unknown) date) unknown) (unknown) (no (unknown) (unknown) Albumin (3.5-5.0) (units (unknown) date) g/dL unknown) (unknown) (no (unknown) (unknown) Albumin 4.0 (units (un known) date) (3.5-5.0) g/dL unknown) (unknown) (no (unknown) (unknown) Albumin/Globulin (units (unknown) date) Ratio (1.0-2.8) unknown) (unknown) (no (unknown) (unknown) Albumin/Globulin (units (unknown) date) Ratio 1.3 (1.0-2.8) unknown) (unknown) (no (unknown) (unknown) Alkaline (units (unkno wn) date) Phosphatase (38-126) unknown) U/L (unknown) (no (unknown) (unknown) Alkaline (units (unkno wn) date) Phosphatase 146 H unknown) (38-126) U/L (unknown) (no (unknown) (unknown) Allergies (units (unkn own) date) unknown) (unknown) (no (unknown) (unknown) Allergy/AdvReac (units (unknown) date) Type Severity unknown) Reaction Status Date / Time (unknown) (no (unknown) (unknown) Another facility is (unit s (unknown) date) evaluating the unknown) patient. Patient signed out to Dr. Dewey, (unknown) (no (unknown) (unknown) Antibody Screen (units (unknown) date) Negative unknown) (unknown) (no (unknown) (unknown) Antibody Screen (units (unknown) date) unknown) (unknown) (no (unknown) (unknown) Attestation: I (units (unknown) date) personally reviewed unknown) and interpreted this ECG as follows: (unknown) (no (unknown) (unknown) BACK: No CVA (units (u nknown) date) tenderness, no unknown) vertebral tenderness, no step-off's, no crepitus (unknown) (no (unknown) (unknown) BUN (9-20) mg/dL (units (unknown) date) unknown) (unknown) (no (unknown) (unknown) BUN 8 L (9-20) (units (unknown) date) mg/dL unknown) (unknown) (no (unknown) (unknown) BUN/Creatinine (units (unknown) date) Ratio (6-22) unknown) (unknown) (no (unknown) (unknown) BUN/Creatinine (units (unknown) date) Ratio 19.0 (6-22) unknown) (unknown) (no (unknown) (unknown) BURNING' (units (unkno wn) date) unknown) (unknown) (no (unknown) (unknown) Baso # (Auto) (units ( unknown) date) (0-100) /uL unknown) (unknown) (no (unknown) (unknown) Baso # (Auto) 100 (units (unknown) date) (0-100) /uL unknown) (unknown) (no (unknown) (unknown) Baso % (Auto) (0-2) (unit s (unknown) date) % unknown) (unknown) (no (unknown) (unknown) Baso % (Auto) 1.4 (units (unknown) date) (0-2) % unknown) (unknown) (no (unknown) (unknown) Benadryl and (units (u nknown) date) Solu-Medrol as he unknown) was felt stable. CT imaging of the brain shows (unknown) (no (unknown) (unknown) Blood Pressure (units (unknown) date) 106/52 L 113/56 L unknown) (unknown) (no (unknown) (unknown) Blood Pressure (units (unknown) date) 121/73 unknown) (unknown) (no (unknown) (unknown) Blood Pressure (units (unknown) date) 130/82 unknown) (unknown) (no (unknown) (unknown) Blood Pressure (units (unknown) date) 135/88 unknown) (unknown) (no (unknown) (unknown) Blood Pressure (units (unknown) date) 137/72 unknown) (unknown) (no (unknown) (unknown) Blood Pressure (units (unknown) date) 137/84 151/87 H unknown) (unknown) (no (unknown) (unknown) Blood Pressure (units (unknown) date) 141/98 H 160/97 H unknown) (unknown) (no (unknown) (unknown) Blood Pressure (units (unknown) date) 144/96 H 146/82 H unknown) (unknown) (no (unknown) (unknown) Blood Pressure (units (unknown) date) 146/90 H unknown) (unknown) (no (unknown) (unknown) Blood Pressure (units (unknown) date) 148/91 H unknown) (unknown) (no (unknown) (unknown) Blood Pressure (units (unknown) date) 149/94 H 01/14/23 unknown) 10:22 (unknown) (no (unknown) (unknown) Blood Pressure (units (unknown) date) 155/97 H unknown) (unknown) (no (unknown) (unknown) Blood Pressure (units (unknown) date) 163/88 H unknown) (unknown) (no (unknown) (unknown) Blood Pressure (units (unknown) date) 164/106 H unknown) (unknown) (no (unknown) (unknown) Blood Pressure (units (unknown) date) 172/88 H unknown) (unknown) (no (unknown) (unknown) Blood Pressure (units (unknown) date) 181/95 H unknown) (unknown) (no (unknown) (unknown) Blood Type O (units (u nknown) date) Positive unknown) (unknown) (no (unknown) (unknown) Blood Type (units (unk nown) date) unknown) (unknown) (no (unknown) (unknown) COVID19 -Nasal (units (unknown) date) RAPID Stat unknown) (unknown) (no (unknown) (unknown) CT cervical spine (units (unknown) date) wo con Stat unknown) (unknown) (no (unknown) (unknown) CT chest abd pel w (units (unknown) date) con Stat unknown) (unknown) (no (unknown) (unknown) CT head/brain wo (units (unknown) date) con Stat unknown) (unknown) (no (unknown) (unknown) CVS: Heart sounds (units (unknown) date) are normal, no unknown) murmur noted, No JVD. (unknown) (no (unknown) (unknown) Calcium (8.4-10.2) (units (unknown) date) mg/dL unknown) (unknown) (no (unknown) (unknown) Calcium 8.5 (units (un known) date) (8.4-10.2) mg/dL unknown) (unknown) (no (unknown) (unknown) Carbon Dioxide (units (unknown) date) (22-32) mmol/L unknown) (unknown) (no (unknown) (unknown) Carbon Dioxide 30 (units (unknown) date) (22-32) mmol/L unknown) (unknown) (no (unknown) (unknown) Chief Complaint: (units (unknown) date) Trauma unknown) (unknown) (no (unknown) (unknown) Chloride (98-107) (units (unknown) date) mmol/L unknown) (unknown) (no (unknown) (unknown) Chloride 100 (units (u nknown) date) (98-107) mmol/L unknown) (unknown) (no (unknown) (unknown) Chronic low back (units (unknown) date) pain unknown) (unknown) (no (unknown) (unknown) Clinical (units (unkno wn) date) Impression: unknown) (unknown) (no (unknown) (unknown) Complete Blood (units (unknown) date) Count AUTO DIFF Stat unknown) (unknown) (no (unknown) (unknown) Comprehensive (units ( unknown) date) Metabolic Panel Stat unknown) (unknown) (no (unknown) (unknown) Consult to [facility] [place] - (units (unknown) date) 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) (unknown) (no (unknown) (unknown) Course (units (unkno wn) date) unknown) (unknown) (no (unknown) (unknown) Creatinine (units (unk nown) date) (0.66-1.25) mg/dL unknown) (unknown) (no (unknown) (unknown) Creatinine 0.42 L (units (unknown) date) (0.66-1.25) mg/dL unknown) (unknown) (no (unknown) (unknown) : 1970 (units (unknown) date) Acct:[id number] unknown) (unknown) (no (unknown) (unknown) Date of Service: (units (unknown) date) 01/14/23 unknown) (unknown) (no (unknown) (unknown) Departure (units (unkn own) date) unknown) (unknown) (no (unknown) (unknown) Diphenhydramine HCl (unit s (unknown) date) (Diphenhydramine 50 unknown) Mg/Ml Vial) 50 mg IV NOW ONE (unknown) (no (unknown) (unknown) Diphtheria/Tetanus/ (unit s (unknown) date) Acell Pertussis unknown) (Tet,Diph,Pertuss(Ac ell),Vac/Pf 0.5 Ml (unknown) (no (unknown) (unknown) Discharge Plan (units (unknown) date) unknown) (unknown) (no (unknown) (unknown) Discontinued (units (u nknown) date) Medications unknown) (unknown) (no (unknown) (unknown) Documented By: AT (units (unknown) date) unknown) (unknown) (no (unknown) (unknown) Documented By: KB (units (unknown) date) unknown) (unknown) (no (unknown) (unknown) ECG Data (units (unkno wn) date) unknown) (unknown) (no (unknown) (unknown) ED Orders (units (unkn own) date) unknown) (unknown) (no (unknown) (unknown) EKG-12 Lead Stat (units (unknown) date) unknown) (unknown) (no (unknown) (unknown) ENT: Patient has (units (unknown) date) superficial scabbed unknown) laceration over his right brow, does not (unknown) (no (unknown) (unknown) ER Physician: (units ( unknown) date) Octavio Dewey D.O. unknown) (unknown) (no (unknown) (unknown) ETOH [Ethanol (units ( unknown) date) (ETOH)] Stat unknown) (unknown) (no (unknown) (unknown) EXT: Atraumatic (units (unknown) date) other than skin unknown) changes. hips are nontender, no pedal edema, (unknown) (no (unknown) (unknown) EYES: PERRLA, EOMI (units (unknown) date) unknown) (unknown) (no (unknown) (unknown) Emergency Report (units (unknown) date) unknown) (unknown) (no (unknown) (unknown) Eos # (Auto) (units (u nknown) date) (0-450) /uL unknown) (unknown) (no (unknown) (unknown) Eos # (Auto) 100 (units (unknown) date) (0-450) /uL unknown) (unknown) (no (unknown) (unknown) Eos % (Auto) (2-4) (units (unknown) date) % unknown) (unknown) (no (unknown) (unknown) Eos % (Auto) 2.2 (units (unknown) date) (2-4) % unknown) (unknown) (no (unknown) (unknown) Estimated GFR > 60 (units (unknown) date) (>60) mL/min unknown) (unknown) (no (unknown) (unknown) Estimated GFR (>60) (unit s (unknown) date) mL/min unknown) (unknown) (no (unknown) (unknown) Ethanol (ETOH) Stat (unit s (unknown) date) unknown) (unknown) (no (unknown) (unknown) Ethyl Alcohol ( - (units (unknown) date) 10) mg/dL unknown) (unknown) (no (unknown) (unknown) Ethyl Alcohol 308 H (unit s (unknown) date) ( - 10) mg/dL unknown) (unknown) (no (unknown) (unknown) Exam (units (unkno wn) date) unknown) (unknown) (no (unknown) (unknown) FEELS LIKE (units (unk nown) date) unknown) (unknown) (no (unknown) (unknown) GEN: C-collar was (units (unknown) date) placed by EMS in the unknown) field but patient would not keep it on. (unknown) (no (unknown) (unknown) General (units (unkno wn) date) unknown) (unknown) (no (unknown) (unknown) Globulin (1.7-4.1) (units (unknown) date) g/dL unknown) (unknown) (no (unknown) (unknown) Globulin 3.2 (units (u nknown) date) (1.7-4.1) g/dL unknown) (unknown) (no (unknown) (unknown) Glucose (70-100) (units (unknown) date) mg/dL unknown) (unknown) (no (unknown) (unknown) Glucose 254 H (units ( unknown) date) (70-100) mg/dL unknown) (unknown) (no (unknown) (unknown) Glucose POC 344 (units (unknown) date) unknown) (unknown) (no (unknown) (unknown) HEAD: No evidence (units (unknown) date) of trauma, no unknown) raccoon/Johnson sign. (unknown) (no (unknown) (unknown) HEARING (units (unkno wn) date) unknown) (unknown) (no (unknown) (unknown) HPI - Trauma (units (u nknown) date) unknown) (unknown) (no (unknown) (unknown) HPI narrative: (units (unknown) date) unknown) (unknown) (no (unknown) (unknown) Hct (41-53) % (units ( unknown) date) unknown) (unknown) (no (unknown) (unknown) Hct 36.9 L (41-53) (units (unknown) date) % unknown) (unknown) (no (unknown) (unknown) Hgb (13.5-17.5) (units (unknown) date) g/dL unknown) (unknown) (no (unknown) (unknown) Hgb 12.3 L (units (unk nown) date) (13.5-17.5) g/dL unknown) (unknown) (no (unknown) (unknown) History of Present (units (unknown) date) Illness unknown) (unknown) (no (unknown) (unknown) Home Medications (units (unknown) date) unknown) (unknown) (no (unknown) (unknown) INR (0.9-1.3) (units ( unknown) date) unknown) (unknown) (no (unknown) (unknown) INR 1.0 (0.9-1.3) (units (unknown) date) unknown) (unknown) (no (unknown) (unknown) Initial Vital Signs (unit s (unknown) date) unknown) (unknown) (no (unknown) (unknown) Initial Vital (units ( unknown) date) Signs: unknown) (unknown) (no (unknown) (unknown) Insulin Glargine (units (unknown) date) (Insulin Glargine unknown) 100 Unit/Ml 3ml Pen) 20 unit SUBCUT NOW ONE (unknown) (no (unknown) (unknown) Interpretation: (units (unknown) date) unknown) (unknown) (no (unknown) (unknown) [facility] (units (unknown) date) [address] [place] [address] Street unknown) [place] [address] (unknown) (no (unknown) (unknown) Ketorolac (units (unkn own) date) Tromethamine unknown) (Ketorolac 30 Mg/Ml Vial) 15 mg IV NOW ONE (unknown) (no (unknown) (unknown) LOSS AT (units (unkno wn) date) unknown) (unknown) (no (unknown) (unknown) Lab Data (units (unkno wn) date) unknown) (unknown) (no (unknown) (unknown) Lab Results (units (un known) date) unknown) (unknown) (no (unknown) (unknown) Labs show an ETOH (units (unknown) date) of 308, patient has unknown) a hemoglobin of 12 baseline compared to (unknown) (no (unknown) (unknown) Labs: (units (unkno wn) date) unknown) (unknown) (no (unknown) (unknown) Lactate (0.7-2.1) (units (unknown) date) mmol/L unknown) (unknown) (no (unknown) (unknown) Lactate (Lactic (units (unknown) date) Acid) Stat unknown) (unknown) (no (unknown) (unknown) Lactate 2.1 1.9 (units (unknown) date) (0.7-2.1) mmol/L unknown) (unknown) (no (unknown) (unknown) Last Admin: (units (un known) date) 01/14/23 10:42 Dose: unknown) 0.5 mg (unknown) (no (unknown) (unknown) Last Admin: (units (un known) date) 01/14/23 11:11 Dose: unknown) 50 mg (unknown) (no (unknown) (unknown) Last Admin: (units (un known) date) 01/14/23 11:12 Dose: unknown) 125 mg (unknown) (no (unknown) (unknown) Last Admin: (units (un known) date) 01/14/23 14:28 Dose: unknown) 260 mg (unknown) (no (unknown) (unknown) Last Admin: (units (un known) date) 01/14/23 14:29 Dose: unknown) 650 mg (unknown) (no (unknown) (unknown) Last Admin: (units (un known) date) 01/14/23 15:09 Dose: unknown) 0.5 ml (unknown) (no (unknown) (unknown) Last Admin: (units (un known) date) 01/14/23 18:00 Dose: unknown) 15 mg (unknown) (no (unknown) (unknown) Limitations: no (units (unknown) date) limitations unknown) (unknown) (no (unknown) (unknown) Lipase (23-300) U/L (unit s (unknown) date) unknown) (unknown) (no (unknown) (unknown) Lipase 109 (23-300) (unit s (unknown) date) U/L unknown) (unknown) (no (unknown) (unknown) Lipase Stat (units (un known) date) unknown) (unknown) (no (unknown) (unknown) Lorazepam (units (unkn own) date) (Lorazepam 2 Mg/Ml unknown) Inj) 0.5 mg IV NOW ONE (unknown) (no (unknown) (unknown) Lorazepam (units (unkn own) date) (Lorazepam 2 Mg/Ml unknown) Inj) 0.5 mg IV Q2HR PRN (unknown) (no (unknown) (unknown) Lymph # (Auto) (units (unknown) date) (2121-5889) /uL unknown) (unknown) (no (unknown) (unknown) Lymph # (Auto) 1700 (unit s (unknown) date) (9499-8681) /uL unknown) (unknown) (no (unknown) (unknown) Lymph % (Auto) (units (unknown) date) (25-40) % unknown) (unknown) (no (unknown) (unknown) Lymph % (Auto) 39.1 (unit s (unknown) date) (25-40) % unknown) (unknown) (no (unknown) (unknown) MCH (26-34) PG (units (unknown) date) unknown) (unknown) (no (unknown) (unknown) MCH 32.5 (26-34) PG (unit s (unknown) date) unknown) (unknown) (no (unknown) (unknown) MCHC (30-36) % (units (unknown) date) unknown) (unknown) (no (unknown) (unknown) MCHC 33.5 (30-36) % (unit s (unknown) date) unknown) (unknown) (no (unknown) (unknown) MCV (80-100) fL (units (unknown) date) unknown) (unknown) (no (unknown) (unknown) MCV 97.1 (80-100) (units (unknown) date) fL unknown) (unknown) (no (unknown) (unknown) MDM - Trauma (units (u nknown) date) unknown) (unknown) (no (unknown) (unknown) MDM Narrative (units ( unknown) date) unknown) (unknown) (no (unknown) (unknown) Medical History (units (unknown) date) (Updated 01/14/23 @ unknown) 16:59 by Bridgett Garrido DO) (unknown) (no (unknown) (unknown) Medical decision (units (unknown) date) making narrative: unknown) (unknown) (no (unknown) (unknown) Medication (units (unk nown) date) Instructions unknown) Recorded Confirmed (unknown) (no (unknown) (unknown) Methylprednisolone (units (unknown) date) (Methylprednisolone unknown) 125 Mg/2 Ml Vial) 125 mg IV NOW ONE (unknown) (no (unknown) (unknown) Micro UA Comment (units (unknown) date) Microscopic normal unknown) (unknown) (no (unknown) (unknown) Micro UA Comment (units (unknown) date) unknown) (unknown) (no (unknown) (unknown) Mode of arrival: (units (unknown) date) EMS unknown) (unknown) (no (unknown) (unknown) Pender # (Auto) (units ( unknown) date) (0-900) /uL unknown) (unknown) (no (unknown) (unknown) Pender # (Auto) 600 (units (unknown) date) (0-900) /uL unknown) (unknown) (no (unknown) (unknown) Pender % (Auto) (units ( unknown) date) (3-14) % unknown) (unknown) (no (unknown) (unknown) Pender % (Auto) 14.9 (units (unknown) date) H (3-14) % unknown) (unknown) (no (unknown) (unknown) NECK: Nontender, (units (unknown) date) painless range of unknown) motion, trachea midline (unknown) (no (unknown) (unknown) NEURO: Oriented (units (unknown) date) AOx3, neuro is unknown) grossly intact, sensation and motor is normal all (unknown) (no (unknown) (unknown) Narrative: (units (unk nown) date) unknown) (unknown) (no (unknown) (unknown) Neut # (Auto) (units ( unknown) date) (2150-4273) /uL unknown) (unknown) (no (unknown) (unknown) Neut # (Auto) 1800 (units (unknown) date) (1080-1577) /uL unknown) (unknown) (no (unknown) (unknown) Neut % (Auto) (units ( unknown) date) (50-75) % unknown) (unknown) (no (unknown) (unknown) Neut % (Auto) 42.4 (units (unknown) date) L (50-75) % unknown) (unknown) (no (unknown) (unknown) No Action (units (unkn own) date) unknown) (unknown) (no (unknown) (unknown) Nontender, (units (unk nown) date) incisions healed. unknown) (unknown) (no (unknown) (unknown) Ordered: (units (unkno wn) date) unknown) (unknown) (no (unknown) (unknown) Orders (units (unkno wn) date) unknown) (unknown) (no (unknown) (unknown) Oxygen Delivery (units (unknown) date) Method Room Air unknown) 01/14/23 10:22 (unknown) (no (unknown) (unknown) Oxygen Delivery (units (unknown) date) Method Room Air Room unknown) Air (unknown) (no (unknown) (unknown) Oxygen Delivery (units (unknown) date) Method Room Air unknown) (unknown) (no (unknown) (unknown) Oxygen Delivery (units (unknown) date) Method unknown) (unknown) (no (unknown) (unknown) PRN Reason: Anxiety (unit s (unknown) date) unknown) (unknown) (no (unknown) (unknown) PSYCH: Normal mood (units (unknown) date) and affect unknown) (unknown) (no (unknown) (unknown) PT (10.1-12.7) (units (unknown) date) SECONDS unknown) (unknown) (no (unknown) (unknown) PT 11.2 (10.1-12.7) (unit s (unknown) date) SECONDS unknown) (unknown) (no (unknown) (unknown) PTT Partial (units (un known) date) Thromboplastin Rodolfo unknown) Stat (unknown) (no (unknown) (unknown) Patient Comments: (units (unknown) date) unknown) (unknown) (no (unknown) (unknown) Patient History (units (unknown) date) unknown) (unknown) (no (unknown) (unknown) Patient appears in (units (unknown) date) moderate distress. unknown) Patient is confused has slightly slurred (unknown) (no (unknown) (unknown) Patient denies (units (unknown) date) pain, no shortness unknown) of breath, no GI or urinary symptoms. He is (unknown) (no (unknown) (unknown) Patient had (units (un known) date) Solu-Medrol unknown) methylprednisolone for pretreatment for CT, he had (unknown) (no (unknown) (unknown) Patient was being (units (unknown) date) evaluated by 1 unknown) facility, they asked for repeat EKG for QTC (unknown) (no (unknown) (unknown) Patient: (units (unkno wn) date) Octavio Romo MR#: unknown) M00 (unknown) (no (unknown) (unknown) Phenobarbital (units ( unknown) date) (Phenobarbital 65 unknown) Mg/Ml Vial) 260 mg IV NOW ONE (unknown) (no (unknown) (unknown) Plt Count (150-400) (unit s (unknown) date) X103/uL unknown) (unknown) (no (unknown) (unknown) Plt Count 296 (units ( unknown) date) (150-400) X103/uL unknown) (unknown) (no (unknown) (unknown) Point of Care (units ( unknown) date) Testing unknown) (unknown) (no (unknown) (unknown) Positive Nexus (units (unknown) date) criteria, there is unknown) no midline line tenderness, distracting (unknown) (no (unknown) (unknown) Potassium (3.4-5.1) (unit s (unknown) date) mmol/L unknown) (unknown) (no (unknown) (unknown) Potassium 3.9 (units ( unknown) date) (3.4-5.1) mmol/L unknown) (unknown) (no (unknown) (unknown) Prescriptions: (units (unknown) date) unknown) (unknown) (no (unknown) (unknown) Prothrombin Time (units (unknown) date) INR Stat unknown) (unknown) (no (unknown) (unknown) Pulse Oximetry 91 (units (unknown) date) 96 unknown) (unknown) (no (unknown) (unknown) Pulse Oximetry 93 (units (unknown) date) 95 unknown) (unknown) (no (unknown) (unknown) Pulse Oximetry 94 (units (unknown) date) 93 unknown) (unknown) (no (unknown) (unknown) Pulse Oximetry 94 (units (unknown) date) 95 unknown) (unknown) (no (unknown) (unknown) Pulse Oximetry 94 (units (unknown) date) unknown) (unknown) (no (unknown) (unknown) Pulse Oximetry 95 (units (unknown) date) 94 unknown) (unknown) (no (unknown) (unknown) Pulse Oximetry 95 (units (unknown) date) unknown) (unknown) (no (unknown) (unknown) Pulse Oximetry 96 (units (unknown) date) 93 unknown) (unknown) (no (unknown) (unknown) Pulse Oximetry 96 (units (unknown) date) 94 unknown) (unknown) (no (unknown) (unknown) Pulse Oximetry 97 (units (unknown) date) 95 unknown) (unknown) (no (unknown) (unknown) Pulse Oximetry 97 (units (unknown) date) unknown) (unknown) (no (unknown) (unknown) Pulse Oximetry 99 (units (unknown) date) 01/14/23 10:22 unknown) (unknown) (no (unknown) (unknown) Pulse Oximetry (units (unknown) date) unknown) (unknown) (no (unknown) (unknown) Pulse Rate 72 80 (units (unknown) date) unknown) (unknown) (no (unknown) (unknown) Pulse Rate 74 (units ( unknown) date) unknown) (unknown) (no (unknown) (unknown) Pulse Rate 75 (units ( unknown) date) unknown) (unknown) (no (unknown) (unknown) Pulse Rate 76 81 (units (unknown) date) unknown) (unknown) (no (unknown) (unknown) Pulse Rate 76 97 H (units (unknown) date) unknown) (unknown) (no (unknown) (unknown) Pulse Rate 76 (units ( unknown) date) unknown) (unknown) (no (unknown) (unknown) Pulse Rate 78 74 (units (unknown) date) unknown) (unknown) (no (unknown) (unknown) Pulse Rate 78 (units ( unknown) date) unknown) (unknown) (no (unknown) (unknown) Pulse Rate 79 85 (units (unknown) date) unknown) (unknown) (no (unknown) (unknown) Pulse Rate 80 75 (units (unknown) date) unknown) (unknown) (no (unknown) (unknown) Pulse Rate 82 80 (units (unknown) date) unknown) (unknown) (no (unknown) (unknown) Pulse Rate 83 80 (units (unknown) date) unknown) (unknown) (no (unknown) (unknown) Pulse Rate 87 75 (units (unknown) date) unknown) (unknown) (no (unknown) (unknown) Pulse Rate 95 H (units (unknown) date) 01/14/23 10:22 unknown) (unknown) (no (unknown) (unknown) Pulse Rate 97 H 96 (units (unknown) date) H unknown) (unknown) (no (unknown) (unknown) RBC (4.5-5.9) (units ( unknown) date) X106/uL unknown) (unknown) (no (unknown) (unknown) RBC 3.80 L (units (unk nown) date) (4.5-5.9) X106/uL unknown) (unknown) (no (unknown) (unknown) RDW (11.6-14.8) % (units (unknown) date) unknown) (unknown) (no (unknown) (unknown) RDW 13.2 (units (unkno wn) date) (11.6-14.8) % unknown) (unknown) (no (unknown) (unknown) RESP: Chest is (units (unknown) date) nontender and has unknown) symmetric movement, no ecchymosis, breath (unknown) (no (unknown) (unknown) Related Data (units (u nknown) date) unknown) (unknown) (no (unknown) (unknown) Respiratory Rate 10 (unit s (unknown) date) L unknown) (unknown) (no (unknown) (unknown) Respiratory Rate 11 (unit s (unknown) date) L unknown) (unknown) (no (unknown) (unknown) Respiratory Rate 13 (unit s (unknown) date) 13 unknown) (unknown) (no (unknown) (unknown) Respiratory Rate 13 (unit s (unknown) date) unknown) (unknown) (no (unknown) (unknown) Respiratory Rate 14 (unit s (unknown) date) 8 L unknown) (unknown) (no (unknown) (unknown) Respiratory Rate 14 (unit s (unknown) date) unknown) (unknown) (no (unknown) (unknown) Respiratory Rate 15 (unit s (unknown) date) 20 unknown) (unknown) (no (unknown) (unknown) Respiratory Rate 15 (unit s (unknown) date) unknown) (unknown) (no (unknown) (unknown) Respiratory Rate 18 (unit s (unknown) date) 01/14/23 10:22 unknown) (unknown) (no (unknown) (unknown) Respiratory Rate 19 (unit s (unknown) date) 14 unknown) (unknown) (no (unknown) (unknown) Respiratory Rate (units (unknown) date) unknown) (unknown) (no (unknown) (unknown) Review of Systems (units (unknown) date) unknown) (unknown) (no (unknown) (unknown) Rx Instructions: (units (unknown) date) unknown) (unknown) (no (unknown) (unknown) SARS-CoV-2 (PCR) (units (unknown) date) (Negative) unknown) (unknown) (no (unknown) (unknown) SARS-CoV-2 (PCR) (units (unknown) date) Negative (Negative) unknown) (unknown) (no (unknown) (unknown) SKIN: Patient has a (unit s (unknown) date) small 2 cm burn on unknown) his right forearm that has blistered and (unknown) (no (unknown) (unknown) See Rx Instructions (unit s (unknown) date) .ROUTE .COMPLEX unknown) (unknown) (no (unknown) (unknown) Signed By: (units (unk nown) date) unknown) (unknown) (no (unknown) (unknown) Smoking Status: (units (unknown) date) Never smoker unknown) (unknown) (no (unknown) (unknown) Social History (units (unknown) date) (Reviewed 04/13/20 @ unknown) 20:09 by Derick Crandall MD) (unknown) (no (unknown) (unknown) Sodium (137-145) (units (unknown) date) mmol/L unknown) (unknown) (no (unknown) (unknown) Sodium 140 (units (unk nown) date) (137-145) mmol/L unknown) (unknown) (no (unknown) (unknown) Solostar U-100 (units (unknown) date) Insulin) unknown) (unknown) (no (unknown) (unknown) Source: patient, (units (unknown) date) EMS, RN notes unknown) reviewed and old records reviewed (unknown) (no (unknown) (unknown) Stated Complaint: (units (unknown) date) Trauma unknown) (unknown) (no (unknown) (unknown) Stop: 01/14/23 (units (unknown) date) 10:27 unknown) (unknown) (no (unknown) (unknown) Stop: 01/14/23 (units (unknown) date) 10:29 unknown) (unknown) (no (unknown) (unknown) Stop: 01/14/23 (units (unknown) date) 10:58 unknown) (unknown) (no (unknown) (unknown) Stop: 01/14/23 (units (unknown) date) 13:43 unknown) (unknown) (no (unknown) (unknown) Stop: 01/14/23 (units (unknown) date) 14:19 unknown) (unknown) (no (unknown) (unknown) Stop: 01/14/23 (units (unknown) date) 17:53 unknown) (unknown) (no (unknown) (unknown) Stop: 01/14/23 (units (unknown) date) 18:30 unknown) (unknown) (no (unknown) (unknown) Substance Use Type: (unit s (unknown) date) does not use unknown) (unknown) (no (unknown) (unknown) Suicidal ideation, (units (unknown) date) Alcohol abuse, unknown) Facial laceration (unknown) (no (unknown) (unknown) Syringe) 0.5 ml IM (units (unknown) date) .ONCE ONE unknown) (unknown) (no (unknown) (unknown) TAKE 1 CAPSULE BY (units (unknown) date) MOUTH DAILY unknown) (unknown) (no (unknown) (unknown) TAKE 1 TABLET BY (units (unknown) date) MOUTH EVERY EVENING unknown) (unknown) (no (unknown) (unknown) TAKE 1 TABLET BY (units (unknown) date) MOUTH EVERY MORNING unknown) (unknown) (no (unknown) (unknown) Take 1 tablet by (units (unknown) date) mouth twice a day unknown) (unknown) (no (unknown) (unknown) Temperature 97.4 F (units (unknown) date) L 01/14/23 10:22 unknown) (unknown) (no (unknown) (unknown) They also note that (unit s (unknown) date) they were called out unknown) for a wellness check yesterday they (unknown) (no (unknown) (unknown) This is a (units (unkno wn) date) 53-year-old male who unknown) appears intoxicated, he does have scabbing with a (unknown) (no (unknown) (unknown) This is a (units (unkn own) date) 53-year-old male unknown) with known history of alcohol abuse, insulin (unknown) (no (unknown) (unknown) Time Seen by (units (u nknown) date) Provider: 01/14/23 unknown) 10:26 (unknown) (no (unknown) (unknown) To sleep sinus (units (unknown) date) rhythm rate of 72 [place] unknown) 130 QRS of 98 QTC [address]. No acute ST (unknown) (no (unknown) (unknown) Total Bilirubin (units (unknown) date) (0.2-1.3) mg/dL unknown) (unknown) (no (unknown) (unknown) Total Bilirubin 0.4 (unit s (unknown) date) (0.2-1.3) mg/dL unknown) (unknown) (no (unknown) (unknown) Total Protein (units ( unknown) date) (6.3-8.2) g/dL unknown) (unknown) (no (unknown) (unknown) Total Protein 7.2 (units (unknown) date) (6.3-8.2) g/dL unknown) (unknown) (no (unknown) (unknown) Tylenol her (units (un known) date) headache and unknown) phenobarb 260 for alcohol withdrawal patient has not (unknown) (no (unknown) (unknown) Type and Screen (units (unknown) date) Stat unknown) (unknown) (no (unknown) (unknown) U Benzodiazepines (units (unknown) date) Scrn (Negative) unknown) (unknown) (no (unknown) (unknown) U Benzodiazepines (units (unknown) date) Scrn Positive H unknown) (Negative) (unknown) (no (unknown) (unknown) U Marijuana (THC) (units (unknown) date) Screen (Negative) unknown) (unknown) (no (unknown) (unknown) U Marijuana (THC) (units (unknown) date) Screen Negative unknown) (Negative) (unknown) (no (unknown) (unknown) U Methamphetamines (units (unknown) date) Scrn (Negative) unknown) (unknown) (no (unknown) (unknown) U Methamphetamines (units (unknown) date) Scrn Negative unknown) (Negative) (unknown) (no (unknown) (unknown) U Opiates 300ng/mL (units (unknown) date) cut (Negative) unknown) (unknown) (no (unknown) (unknown) U Opiates 300ng/mL (units (unknown) date) cut Positive H unknown) (Negative) (unknown) (no (unknown) (unknown) U Tricyclic (units (un known) date) Antidepress unknown) (Negative) (unknown) (no (unknown) (unknown) U Tricyclic (units (un known) date) Antidepress Negative unknown) (Negative) (unknown) (no (unknown) (unknown) Ur Amphetamines (units (unknown) date) Screen (Negative) unknown) (unknown) (no (unknown) (unknown) Ur Amphetamines (units (unknown) date) Screen Negative unknown) (Negative) (unknown) (no (unknown) (unknown) Ur Barbiturates (units (unknown) date) Screen (Negative) unknown) (unknown) (no (unknown) (unknown) Ur Barbiturates (units (unknown) date) Screen Negative unknown) (Negative) (unknown) (no (unknown) (unknown) Ur Culture (units (unk nown) date) Indicated? Cult not unknown) indicated (unknown) (no (unknown) (unknown) Ur Culture (units (unk nown) date) Indicated? unknown) (unknown) (no (unknown) (unknown) Ur Leukocyte (units (u nknown) date) Esterase (NEGATIVE) unknown) (unknown) (no (unknown) (unknown) Ur Leukocyte (units (u nknown) date) Esterase Negative unknown) (NEGATIVE) (unknown) (no (unknown) (unknown) Ur MDMA Scrn (units (u nknown) date) (Ecstasy) (Negative) unknown) (unknown) (no (unknown) (unknown) Ur MDMA Scrn (units (u nknown) date) (Ecstasy) Negative unknown) (Negative) (unknown) (no (unknown) (unknown) Ur Oxycodone Screen (unit s (unknown) date) (Negative) unknown) (unknown) (no (unknown) (unknown) Ur Oxycodone Screen (unit s (unknown) date) Negative (Negative) unknown) (unknown) (no (unknown) (unknown) Ur Phencyclidine (units (unknown) date) Scrn (Negative) unknown) (unknown) (no (unknown) (unknown) Ur Phencyclidine (units (unknown) date) Scrn Negative unknown) (Negative) (unknown) (no (unknown) (unknown) Ur Specific [place] (unit s (unknown) date) (1.000-1.035) unknown) (unknown) (no (unknown) (unknown) Ur Specific [place] (unit s (unknown) date) 1.010 (1.000-1.035) unknown) (unknown) (no (unknown) (unknown) Urinalysis and (units (unknown) date) Microscopic Stat unknown) (unknown) (no (unknown) (unknown) Urine Appearance (units (unknown) date) Clear unknown) (unknown) (no (unknown) (unknown) Urine Appearance (units (unknown) date) unknown) (unknown) (no (unknown) (unknown) Urine Bacteria (units (unknown) date) (None) unknown) (unknown) (no (unknown) (unknown) Urine Bacteria None (unit s (unknown) date) seen (None) unknown) (unknown) (no (unknown) (unknown) Urine Bilirubin (units (unknown) date) (NEGATIVE) unknown) (unknown) (no (unknown) (unknown) Urine Bilirubin (units (unknown) date) Negative (NEGATIVE) unknown) (unknown) (no (unknown) (unknown) Urine Cocaine (units ( unknown) date) Screen (Negative) unknown) (unknown) (no (unknown) (unknown) Urine Cocaine (units ( unknown) date) Screen Negative unknown) (Negative) (unknown) (no (unknown) (unknown) Urine Color Yellow (units (unknown) date) unknown) (unknown) (no (unknown) (unknown) Urine Color (units (un known) date) unknown) (unknown) (no (unknown) (unknown) Urine Drug Screen, (units (unknown) date) Rapid Stat unknown) (unknown) (no (unknown) (unknown) Urine Glucose (UA) (units (unknown) date) (Negative) g/dL unknown) (unknown) (no (unknown) (unknown) Urine Glucose (UA) (units (unknown) date) 2+ H (Negative) g/dL unknown) (unknown) (no (unknown) (unknown) Urine Ketones (units ( unknown) date) (NEGATIVE) unknown) (unknown) (no (unknown) (unknown) Urine Ketones (units ( unknown) date) Negative (NEGATIVE) unknown) (unknown) (no (unknown) (unknown) Urine Methadone (units (unknown) date) Screen (Negative) unknown) (unknown) (no (unknown) (unknown) Urine Methadone (units (unknown) date) Screen Negative unknown) (Negative) (unknown) (no (unknown) (unknown) Urine Nitrate (units ( unknown) date) (Negative) unknown) (unknown) (no (unknown) (unknown) Urine Nitrate (units ( unknown) date) Negative (Negative) unknown) (unknown) (no (unknown) (unknown) Urine Occult Blood (units (unknown) date) (Negative) unknown) (unknown) (no (unknown) (unknown) Urine Occult Blood (units (unknown) date) Negative (Negative) unknown) (unknown) (no (unknown) (unknown) Urine Protein (units ( unknown) date) (Negative) unknown) (unknown) (no (unknown) (unknown) Urine Protein (units ( unknown) date) Negative (Negative) unknown) (unknown) (no (unknown) (unknown) Urine RBC (0-5/HPF) (unit s (unknown) date) unknown) (unknown) (no (unknown) (unknown) Urine RBC None seen (unit s (unknown) date) (0-5/HPF) unknown) (unknown) (no (unknown) (unknown) Urine Urobilinogen (units (unknown) date) (0.2) E.U./dL unknown) (unknown) (no (unknown) (unknown) Urine Urobilinogen (units (unknown) date) 1.0 (0.2) E.U./dL unknown) (unknown) (no (unknown) (unknown) Urine WBC (0-5/HPF) (unit s (unknown) date) unknown) (unknown) (no (unknown) (unknown) Urine WBC None seen (unit s (unknown) date) (0-5/HPF) unknown) (unknown) (no (unknown) (unknown) Urine pH (4.5-8.0) (units (unknown) date) unknown) (unknown) (no (unknown) (unknown) Urine pH 6.5 (units (u nknown) date) (4.5-8.0) unknown) (unknown) (no (unknown) (unknown) Vital Signs - 8 hr (units (unknown) date) unknown) (unknown) (no (unknown) (unknown) Vital Signs (units (un known) date) unknown) (unknown) (no (unknown) (unknown) Vital signs: (units (u nknown) date) unknown) (unknown) (no (unknown) (unknown) WAS (units (unkno wn) date) unknown) (unknown) (no (unknown) (unknown) WBC (4.5-11.0) (units (unknown) date) X103/uL unknown) (unknown) (no (unknown) (unknown) WBC 4.3 L (units (unkn own) date) (4.5-11.0) X103/uL unknown) (unknown) (no (unknown) (unknown) XR chest 1V Stat (units (unknown) date) unknown) (unknown) (no (unknown) (unknown) XR pelvis 1-2V Stat (unit s (unknown) date) unknown) (unknown) (no (unknown) (unknown) [Embedded Image Not (unit s (unknown) date) Available] unknown) (unknown) (no (unknown) (unknown) [From BETADINE] (units (unknown) date) FEELS LIKE unknown) (unknown) (no (unknown) (unknown) [SHELLFISH DERIVED] (unit s (unknown) date) LIKE IT unknown) (unknown) (no (unknown) (unknown) a small burn on his (units (unknown) date) right forearm and he unknown) has bruising his girlfriend told medics (unknown) (no (unknown) (unknown) abdomen pelvis (units (unknown) date) shows no acute unknown) traumatic injury, remote left-sided rib fractures (unknown) (no (unknown) (unknown) alcohol intake (units (unknown) date) frequency: 0-2 unknown) drinks per day (unknown) (no (unknown) (unknown) allergy to iodine (units (unknown) date) which he did not unknown) tell us earlier. Was pretreated with (unknown) (no (unknown) (unknown) and when asked he (units (unknown) date) states he does want unknown) to kill himself when asked why he does not (unknown) (no (unknown) (unknown) answer. When asked (units (unknown) date) if he has a plan he unknown) does not give one. Medics a girlfriend (unknown) (no (unknown) (unknown) anything amiss in (units (unknown) date) the house but he had unknown) been found on the ground in the bathroom. (unknown) (no (unknown) (unknown) appears older with (units (unknown) date) healing skin unknown) underneath, warm and dry, no crepitus and (unknown) (no (unknown) (unknown) arrived. (units (unkno wn) date) unknown) (unknown) (no (unknown) (unknown) atorvastatin 40 mg (units (unknown) date) tablet 40 mg PO unknown) BEDTIME 01/14/23 01/14/23 (unknown) (no (unknown) (unknown) atorvastatin 40 mg (units (unknown) date) tablet unknown) (unknown) (no (unknown) (unknown) been tachycardic (units (unknown) date) since then, no unknown) hypertension. Patient did receive a dose of IV (unknown) (no (unknown) (unknown) chest abdomen (units ( unknown) date) pelvis there was unknown) some delay as it was found patient has reported (unknown) (no (unknown) (unknown) chest and abdomen (units (unknown) date) although it appears unknown) little bit older, and he has a burn on his (unknown) (no (unknown) (unknown) chest, right upper (units (unknown) date) abdomen and right unknown) lower abdomen. (unknown) (no (unknown) (unknown) currently voluntary (unit s (unknown) date) seeking dual unknown) treatment. (unknown) (no (unknown) (unknown) dependent diabetes (units (unknown) date) and chronic pain unknown) with a pain pump in his left abdomen. Patie (unknown) (no (unknown) (unknown) dextroamphetamine-a (unit s (unknown) date) mphetamine 20 20 mg unknown) PO BID 01/14/23 01/14/23 (unknown) (no (unknown) (unknown) dextroamphetamine-a (unit s (unknown) date) mphetamine 20 mg unknown) tablet (unknown) (no (unknown) (unknown) do his injections (units (unknown) date) which he states are unknown) insulin. He states he has a pain pump in (unknown) (no (unknown) (unknown) drinks at least a (units (unknown) date) 5th daily, he denies unknown) tobacco or illicit. He states he did not (unknown) (no (unknown) (unknown) elevation or (units (u nknown) date) depression. unknown) (unknown) (no (unknown) (unknown) eptal hematoma, no (units (unknown) date) dental or oral unknown) injury, airway is normal and with normal (unknown) (no (unknown) (unknown) found blood in a (units (unknown) date) different location unknown) but the patient was not present at that (unknown) (no (unknown) (unknown) function at (units (un known) date) baseline at 0.42 unknown) normal electrolytes glucose is 254, AST ALT alk (unknown) (no (unknown) (unknown) furosemide 20 mg (units (unknown) date) tablet 20 mg PO unknown) DAILY 01/14/23 01/14/23 (unknown) (no (unknown) (unknown) furosemide 20 mg (units (unknown) date) tablet unknown) (unknown) (no (unknown) (unknown) gape, trachea is (units (unknown) date) midline, TM's are unknown) normal no hemotypanum, Nares are clear, no s (unknown) (no (unknown) (unknown) ground there was (units (unknown) date) reportedly some unknown) glass at the scene and the medics state that (unknown) (no (unknown) (unknown) hematoma. CT (units (u nknown) date) C-spine shows unknown) degenerative change but no fracture. CT chest (unknown) (no (unknown) (unknown) hernia and stable (units (unknown) date) lung nodules unknown) measuring 6 mm. (unknown) (no (unknown) (unknown) his alcohol should (units (unknown) date) be around 100 around unknown) 1845. Patient does have some suicidal (unknown) (no (unknown) (unknown) his belly. He did (units (unknown) date) make statements that unknown) he wanted to kill himself to the medics (unknown) (no (unknown) (unknown) his prior injuries (units (unknown) date) with chest and unknown) abdominal bruising, with CT head, C-spine and (unknown) (no (unknown) (unknown) injury, altered (units (unknown) date) mental status, neuro unknown) deficit, positive for recent EtOH. (unknown) (no (unknown) (unknown) insulin glargine (units (unknown) date) 100 unit/mL (3 20 unknown) unit SUBCUT BEDTIME 01/14/23 01/14/23 (unknown) (no (unknown) (unknown) insulin glargine (units (unknown) date) [Lantus Solostar unknown) U-100 Insulin] 100 unit/mL (3 mL) insulin (unknown) (no (unknown) (unknown) insulin lispro 100 (units (unknown) date) unit/mL See Rx unknown) Instructions .Route .COMPLEX 01/14/23 01/14/23 (unknown) (no (unknown) (unknown) insulin lispro (units (unknown) date) [Humalog KwikPen unknown) Insulin] 100 unit/mL insulin pen (unknown) (no (unknown) (unknown) last saw the (units (u nknown) date) patient on unknown) she noted that he bought a bottle of hard (unknown) (no (unknown) (unknown) leave. He met with (units (unknown) date) our hospital social worker as unknown) he has been otherwise medically cleared (unknown) (no (unknown) (unknown) liquor at that time (unit s (unknown) date) and there was only unknown) about a few mL left today when EMS (unknown) (no (unknown) (unknown) lorazepam when he (units (unknown) date) initially came as unknown) patient was a little agitated and trying to (unknown) (no (unknown) (unknown) losartan 100 mg (units (unknown) date) tablet 100 mg PO unknown) DAILY 01/14/23 01/14/23 (unknown) (no (unknown) (unknown) losartan 100 mg (units (unknown) date) tablet unknown) (unknown) (no (unknown) (unknown) mL) subcutaneous (units (unknown) date) pen (Lantus unknown) (unknown) (no (unknown) (unknown) medications or (units (unknown) date) prolong his QT. He unknown) has a prior in the past and had a 449 QTC. (unknown) (no (unknown) (unknown) mg tablet (units (unkn own) date) unknown) (unknown) (no (unknown) (unknown) moving all his (units (unknown) date) extremities well. Is unknown) conversant but confused. Patient states he (unknown) (no (unknown) (unknown) negative. Patient (units (unknown) date) was CT scan unknown) secondary to intoxication unclear mechanism of (unknown) (no (unknown) (unknown) normal color and (units (unknown) date) temperature, normal unknown) range of motion of extremities with normal (unknown) (no (unknown) (unknown) nt states he does (units (unknown) date) not know who he is unknown) aware he is. He is able to give his name (unknown) (no (unknown) (unknown) obtained is unclear (unit s (unknown) date) what exactly unknown) occurred. Patient was called out as a modified (unknown) (no (unknown) (unknown) occlusion, No bony (units (unknown) date) tenderness unknown) (unknown) (no (unknown) (unknown) pelvic rock is (units (unknown) date) negative, patient unknown) has device in the left lateral abdomen. (unknown) (no (unknown) (unknown) pen (units (unkno wn) date) unknown) (unknown) (no (unknown) (unknown) penicillin G (units (u nknown) date) [PENICILLIN G] unknown) Allergy Unknown LEFT EAR Verified 07/27/18 10:10 (unknown) (no (unknown) (unknown) phos are 8788 and (units (unknown) date) 146 with a negative unknown) bilirubin and lipase of 109. EKG shows a (unknown) (no (unknown) (unknown) povidone-iodine (units (unknown) date) Allergy Unknown unknown) 'SKIN Verified 07/27/18 10:10 (unknown) (no (unknown) (unknown) propranolol 20 mg (units (unknown) date) tablet 20 mg PO BID unknown) 01/14/23 01/14/23 (unknown) (no (unknown) (unknown) propranolol 20 mg (units (unknown) date) tablet unknown) (unknown) (no (unknown) (unknown) redirectable (units (u nknown) date) although he keeps unknown) saying he wants to get out of the bed. He has (unknown) (no (unknown) (unknown) right forearm that (units (unknown) date) also appears little unknown) bit older. Patient was found on the (unknown) (no (unknown) (unknown) seeking placement (units (unknown) date) but currently unknown) voluntary. (unknown) (no (unknown) (unknown) shellfish derived (units (unknown) date) Allergy Unknown unknown) 'SKIN FELT Verified 07/27/18 10:10 (unknown) (no (unknown) (unknown) sinus rhythm no (units (unknown) date) acute ST changes. unknown) Initial chest x-ray and pelvic x-ray is (unknown) (no (unknown) (unknown) soap [From (units (unk nown) date) BETADINE] Allergy unknown) Unknown 'SKIN Verified 07/27/18 10:10 (unknown) (no (unknown) (unknown) soft tissue injury (units (unknown) date) over the super to unknown) right orbit/right frontal bone with a small (unknown) (no (unknown) (unknown) some blood at the (units (unknown) date) scene in a different unknown) location. Patient had labs, imaging (unknown) (no (unknown) (unknown) some broken glass, (units (unknown) date) medics state the unknown) glass was cleaned up they did not see (unknown) (no (unknown) (unknown) sounds are normal (units (unknown) date) no crackles, wheezes unknown) or rales (unknown) (no (unknown) (unknown) speech appears (units (unknown) date) intoxicated but is unknown) conversant. (unknown) (no (unknown) (unknown) subcutaneous pen (units (unknown) date) (Humalog KwikPen unknown) (unknown) (no (unknown) (unknown) superficial lack of (unit s (unknown) date) the right forehead, unknown) he has some bruising of his anterior (unknown) (no (unknown) (unknown) tamsulosin 0.4 mg (units (unknown) date) capsule 0.4 mg PO unknown) DAILY 01/14/23 01/14/23 (unknown) (no (unknown) (unknown) tamsulosin 0.4 mg (units (unknown) date) capsule unknown) (unknown) (no (unknown) (unknown) tendon exam, 2+ (units (unknown) date) pulses in all four unknown) extremities (unknown) (no (unknown) (unknown) that is bruising on (unit s (unknown) date) his left abdomen is unknown) from injections but onto his chest and (unknown) (no (unknown) (unknown) they wanted less (units (unknown) date) than 450 repeat is unknown) 497. Patient had Benadryl but no other (unknown) (no (unknown) (unknown) they were there the (unit s (unknown) date) day before patient unknown) was not present at home but there was (unknown) (no (unknown) (unknown) thoughts no clear (units (unknown) date) active clot unknown) described to myself. That was social work (unknown) (no (unknown) (unknown) time. Patient does (units (unknown) date) not recall what unknown) trauma occurred. The somewhat repetitive. (unknown) (no (unknown) (unknown) trauma. (units (unkno wn) date) unknown) (unknown) (no (unknown) (unknown) upper abdomen she (units (unknown) date) is unsure. Patient unknown) was found at home in the bathroom with (unknown) (no (unknown) (unknown) what appears to be (units (unknown) date) scabbed superficial unknown) laceration over his right forehead he has (unknown) (no (unknown) (unknown) when he is (units (unk nown) date) registered. Patient unknown) is confused but follows commands he is (unknown) (no (unknown) (unknown) with remote left (units (unknown) date) scapular and L1-L2 unknown) transverse process fractures, small hiatal (unknown) (no (unknown) (unknown) without decubitus. (units (unknown) date) Patient has unknown) ecchymosis that is about 4 cm on his anterior Result panel 233 (unknown) (no (unknown) (unknown) (no value) (units (unk nown) date) unknown) (unknown) (no (unknown) (unknown) (U-100) Insulin) (units (unknown) date) unknown) (unknown) (no (unknown) (unknown) (past 8 hours): (units (unknown) date) unknown) (unknown) (no (unknown) (unknown) [id number] (units (unkno wn) date) unknown) (unknown) (no (unknown) (unknown) 01/14/23 01/14/23 (units (unknown) date) 01/14/23 unknown) (unknown) (no (unknown) (unknown) 01/14/23 10:45 (units (unknown) date) unknown) (unknown) (no (unknown) (unknown) 01/14/23 (units (unkno wn) date) unknown) (unknown) (no (unknown) (unknown) 10:45 10:45 10:45 (units (unknown) date) unknown) (unknown) (no (unknown) (unknown) 10:45 11:23 13:48 (units (unknown) date) unknown) (unknown) (no (unknown) (unknown) 14:09 14:09 15:25 (units (unknown) date) unknown) (unknown) (no (unknown) (unknown) 15:00 01/14/23 (units (unknown) date) unknown) (unknown) (no (unknown) (unknown) 15:02 01/14/23 (units (unknown) date) unknown) (unknown) (no (unknown) (unknown) 15:02 (units (unkno wn) date) unknown) (unknown) (no (unknown) (unknown) 15:30 01/14/23 (units (unknown) date) unknown) (unknown) (no (unknown) (unknown) 16:00 01/14/23 (units (unknown) date) unknown) (unknown) (no (unknown) (unknown) 16:00 (units (unkno wn) date) unknown) (unknown) (no (unknown) (unknown) 16:30 01/14/23 (units (unknown) date) unknown) (unknown) (no (unknown) (unknown) 17:00 01/14/23 (units (unknown) date) unknown) (unknown) (no (unknown) (unknown) 17:00 (units (unkno wn) date) unknown) (unknown) (no (unknown) (unknown) 17:30 01/14/23 (units (unknown) date) unknown) (unknown) (no (unknown) (unknown) 17:30 (units (unkno wn) date) unknown) (unknown) (no (unknown) (unknown) 18:00 01/14/23 (units (unknown) date) unknown) (unknown) (no (unknown) (unknown) 18:15 (units (unkno wn) date) unknown) (unknown) (no (unknown) (unknown) 18:30 01/14/23 (units (unknown) date) unknown) (unknown) (no (unknown) (unknown) 18:30 (units (unkno wn) date) unknown) (unknown) (no (unknown) (unknown) 19:00 01/14/23 (units (unknown) date) unknown) (unknown) (no (unknown) (unknown) 19:15 01/14/23 (units (unknown) date) unknown) (unknown) (no (unknown) (unknown) 19:15 (units (unkno wn) date) unknown) (unknown) (no (unknown) (unknown) 19:20 01/14/23 (units (unknown) date) unknown) (unknown) (no (unknown) (unknown) 19:20 (units (unkno wn) date) unknown) (unknown) (no (unknown) (unknown) 19:25 01/14/23 (units (unknown) date) unknown) (unknown) (no (unknown) (unknown) 19:30 01/14/23 (units (unknown) date) unknown) (unknown) (no (unknown) (unknown) 19:30 (units (unkno wn) date) unknown) (unknown) (no (unknown) (unknown) 19:34 01/14/23 (units (unknown) date) unknown) (unknown) (no (unknown) (unknown) 19:35 01/14/23 (units (unknown) date) unknown) (unknown) (no (unknown) (unknown) 19:35 (units (unkno wn) date) unknown) (unknown) (no (unknown) (unknown) 19:40 01/14/23 (units (unknown) date) unknown) (unknown) (no (unknown) (unknown) 19:40 (units (unkno wn) date) unknown) (unknown) (no (unknown) (unknown) 19:45 01/14/23 (units (unknown) date) unknown) (unknown) (no (unknown) (unknown) 19:50 01/14/23 (units (unknown) date) unknown) (unknown) (no (unknown) (unknown) 19:50 (units (unkno wn) date) unknown) (unknown) (no (unknown) (unknown) 19:55 01/14/23 (units (unknown) date) unknown) (unknown) (no (unknown) (unknown) 19:55 (units (unkno wn) date) unknown) (unknown) (no (unknown) (unknown) 20:00 04/08/23 (units (unknown) date) unknown) (unknown) (no (unknown) (unknown) 20:05 01/14/23 (units (unknown) date) unknown) (unknown) (no (unknown) (unknown) 20:05 (units (unkno wn) date) unknown) (unknown) (no (unknown) (unknown) 20:30 01/14/23 (units (unknown) date) unknown) (unknown) (no (unknown) (unknown) 20:30 (units (unkno wn) date) unknown) (unknown) (no (unknown) (unknown) 21:00 01/14/23 (units (unknown) date) unknown) (unknown) (no (unknown) (unknown) 21:30 01/14/23 (units (unknown) date) unknown) (unknown) (no (unknown) (unknown) 21:30 (units (unkno wn) date) unknown) (unknown) (no (unknown) (unknown) 22:00 01/14/23 (units (unknown) date) unknown) (unknown) (no (unknown) (unknown) 22:25 (units (unkno wn) date) unknown) (unknown) (no (unknown) (unknown) AGE 12YR (units (unkno wn) date) unknown) (unknown) (no (unknown) (unknown) ALT 88 H (units (unkno wn) date) unknown) (unknown) (no (unknown) (unknown) ALT (units (unkno wn) date) unknown) (unknown) (no (unknown) (unknown) APTT 34 (units (unkno wn) date) unknown) (unknown) (no (unknown) (unknown) APTT (units (unkno wn) date) unknown) (unknown) (no (unknown) (unknown) AST 87 H (units (unkno wn) date) unknown) (unknown) (no (unknown) (unknown) AST (units (unkno wn) date) unknown) (unknown) (no (unknown) (unknown) Age/Sex: 53 / M (units (unknown) date) unknown) (unknown) (no (unknown) (unknown) Albumin 4.0 (units (un known) date) unknown) (unknown) (no (unknown) (unknown) Albumin (units (unkno wn) date) unknown) (unknown) (no (unknown) (unknown) Albumin/Globulin (units (unknown) date) Ratio 1.3 unknown) (unknown) (no (unknown) (unknown) Albumin/Globulin (units (unknown) date) Ratio unknown) (unknown) (no (unknown) (unknown) Alkaline (units (unkno wn) date) Phosphatase 146 H unknown) (unknown) (no (unknown) (unknown) Alkaline (units (unkno wn) date) Phosphatase unknown) (unknown) (no (unknown) (unknown) Allergies (units (unkn own) date) unknown) (unknown) (no (unknown) (unknown) Allergy/AdvReac (units (unknown) date) Type Severity unknown) Reaction Status Date / Time (unknown) (no (unknown) (unknown) Antibody Screen (units (unknown) date) Negative unknown) (unknown) (no (unknown) (unknown) Antibody Screen (units (unknown) date) unknown) (unknown) (no (unknown) (unknown) BUN 8 L (units (unkno wn) date) unknown) (unknown) (no (unknown) (unknown) BUN (units (unkno wn) date) unknown) (unknown) (no (unknown) (unknown) BUN/Creatinine (units (unknown) date) Ratio 19.0 unknown) (unknown) (no (unknown) (unknown) BUN/Creatinine (units (unknown) date) Ratio unknown) (unknown) (no (unknown) (unknown) BURNING' (units (unkno wn) date) unknown) (unknown) (no (unknown) (unknown) Baso # (Auto) 100 (units (unknown) date) unknown) (unknown) (no (unknown) (unknown) Baso # (Auto) (units ( unknown) date) unknown) (unknown) (no (unknown) (unknown) Baso % (Auto) 1.4 (units (unknown) date) unknown) (unknown) (no (unknown) (unknown) Baso % (Auto) (units ( unknown) date) unknown) (unknown) (no (unknown) (unknown) Blood Pressure (units (unknown) date) 106/52 L 113/56 L unknown) (unknown) (no (unknown) (unknown) Blood Pressure (units (unknown) date) 121/73 unknown) (unknown) (no (unknown) (unknown) Blood Pressure (units (unknown) date) 129/80 138/76 unknown) (unknown) (no (unknown) (unknown) Blood Pressure (units (unknown) date) 130/82 162/103 H unknown) (unknown) (no (unknown) (unknown) Blood Pressure (units (unknown) date) 132/96 H 169/93 H unknown) (unknown) (no (unknown) (unknown) Blood Pressure (units (unknown) date) 137/72 unknown) (unknown) (no (unknown) (unknown) Blood Pressure (units (unknown) date) 137/85 unknown) (unknown) (no (unknown) (unknown) Blood Pressure (units (unknown) date) 138/102 H 130/92 H unknown) (unknown) (no (unknown) (unknown) Blood Pressure (units (unknown) date) 142/89 H unknown) (unknown) (no (unknown) (unknown) Blood Pressure (units (unknown) date) 143/94 H 141/93 H unknown) (unknown) (no (unknown) (unknown) Blood Pressure (units (unknown) date) 148/82 H unknown) (unknown) (no (unknown) (unknown) Blood Pressure (units (unknown) date) 155/95 H 124/84 unknown) (unknown) (no (unknown) (unknown) Blood Pressure (units (unknown) date) 158/95 H unknown) (unknown) (no (unknown) (unknown) Blood Pressure (units (unknown) date) 172/88 H unknown) (unknown) (no (unknown) (unknown) Blood Pressure (units (unknown) date) 175/108 H unknown) (unknown) (no (unknown) (unknown) Blood Pressure (units (unknown) date) unknown) (unknown) (no (unknown) (unknown) Blood Type O (units (u nknown) date) Positive unknown) (unknown) (no (unknown) (unknown) Blood Type (units (unk nown) date) unknown) (unknown) (no (unknown) (unknown) Calcium 8.5 (units (un known) date) unknown) (unknown) (no (unknown) (unknown) Calcium (units (unkno wn) date) unknown) (unknown) (no (unknown) (unknown) Carbon Dioxide 30 (units (unknown) date) unknown) (unknown) (no (unknown) (unknown) Carbon Dioxide (units (unknown) date) unknown) (unknown) (no (unknown) (unknown) Chief complaint: (units (unknown) date) Trauma unknown) (unknown) (no (unknown) (unknown) Chloride 100 (units (u nknown) date) unknown) (unknown) (no (unknown) (unknown) Chloride (units (unkno wn) date) unknown) (unknown) (no (unknown) (unknown) Chronic low back (units (unknown) date) pain unknown) (unknown) (no (unknown) (unknown) Creatinine 0.42 L (units (unknown) date) unknown) (unknown) (no (unknown) (unknown) Creatinine (units (unk nown) date) unknown) (unknown) (no (unknown) (unknown) : 1970 (units (unknown) date) Acct:[id number] unknown) (unknown) (no (unknown) (unknown) Date Patient Seen: (units (unknown) date) 01/14/23 unknown) (unknown) (no (unknown) (unknown) Date of Service: (units (unknown) date) 01/14/23 unknown) (unknown) (no (unknown) (unknown) Eos # (Auto) 100 (units (unknown) date) unknown) (unknown) (no (unknown) (unknown) Eos # (Auto) (units (u nknown) date) unknown) (unknown) (no (unknown) (unknown) Eos % (Auto) 2.2 (units (unknown) date) unknown) (unknown) (no (unknown) (unknown) Eos % (Auto) (units (u nknown) date) unknown) (unknown) (no (unknown) (unknown) Estimated GFR > 60 (units (unknown) date) unknown) (unknown) (no (unknown) (unknown) Estimated GFR (units ( unknown) date) unknown) (unknown) (no (unknown) (unknown) Ethyl Alcohol 308 (units (unknown) date) H unknown) (unknown) (no (unknown) (unknown) Ethyl Alcohol 91 H (units (unknown) date) unknown) (unknown) (no (unknown) (unknown) Ethyl Alcohol (units ( unknown) date) unknown) (unknown) (no (unknown) (unknown) Exam (units (unkno wn) date) unknown) (unknown) (no (unknown) (unknown) FEELS LIKE (units (unk nown) date) unknown) (unknown) (no (unknown) (unknown) Globulin 3.2 (units (u nknown) date) unknown) (unknown) (no (unknown) (unknown) Globulin (units (unkno wn) date) unknown) (unknown) (no (unknown) (unknown) Glucose 254 H (units ( unknown) date) unknown) (unknown) (no (unknown) (unknown) Glucose (units (unkno wn) date) unknown) (unknown) (no (unknown) (unknown) HEARING (units (unkno wn) date) unknown) (unknown) (no (unknown) (unknown) Hct 36.9 L (units (unk nown) date) unknown) (unknown) (no (unknown) (unknown) Hct (units (unkno wn) date) unknown) (unknown) (no (unknown) (unknown) He states he has a (units (unknown) date) pain pump in his unknown) belly.? He did make statements that he (unknown) (no (unknown) (unknown) Hgb 12.3 L (units (unk nown) date) unknown) (unknown) (no (unknown) (unknown) Hgb (units (unkno wn) date) unknown) (unknown) (no (unknown) (unknown) History + Physical (units (unknown) date) Report unknown) (unknown) (no (unknown) (unknown) History of Present (units (unknown) date) Illness unknown) (unknown) (no (unknown) (unknown) History (units (unkno wn) date) unknown) (unknown) (no (unknown) (unknown) Home Medications (units (unknown) date) and Allergies unknown) (unknown) (no (unknown) (unknown) Home Medications (units (unknown) date) unknown) (unknown) (no (unknown) (unknown) INR 1.0 (units (unkno wn) date) unknown) (unknown) (no (unknown) (unknown) INR (units (unkno wn) date) unknown) (unknown) (no (unknown) (unknown) [facility] (units (unknown) date) [address] unknown) [place] [address] (unknown) (no (unknown) (unknown) LOSS AT (units (unkno wn) date) unknown) (unknown) (no (unknown) (unknown) Laboratory Results (units (unknown) date) - last 24 hr unknown) (unknown) (no (unknown) (unknown) Labs (units (unkno wn) date) unknown) (unknown) (no (unknown) (unknown) Labs: (units (unkno wn) date) unknown) (unknown) (no (unknown) (unknown) Lactate 2.1 1.9 (units (unknown) date) unknown) (unknown) (no (unknown) (unknown) Lactate (units (unkno wn) date) unknown) (unknown) (no (unknown) (unknown) Lipase 109 (units (unk nown) date) unknown) (unknown) (no (unknown) (unknown) Lipase (units (unkno wn) date) unknown) (unknown) (no (unknown) (unknown) Lymph # (Auto) (units (unknown) date) 1700 unknown) (unknown) (no (unknown) (unknown) Lymph # (Auto) (units (unknown) date) unknown) (unknown) (no (unknown) (unknown) Lymph % (Auto) (units (unknown) date) 39.1 unknown) (unknown) (no (unknown) (unknown) Lymph % (Auto) (units (unknown) date) unknown) (unknown) (no (unknown) (unknown) MCH 32.5 (units (unkno wn) date) unknown) (unknown) (no (unknown) (unknown) MCH (units (unkno wn) date) unknown) (unknown) (no (unknown) (unknown) MCHC 33.5 (units (unkn own) date) unknown) (unknown) (no (unknown) (unknown) MCHC (units (unkno wn) date) unknown) (unknown) (no (unknown) (unknown) MCV 97.1 (units (unkno wn) date) unknown) (unknown) (no (unknown) (unknown) MCV (units (unkno wn) date) unknown) (unknown) (no (unknown) (unknown) Medical History (units (unknown) date) (Updated 01/14/23 @ unknown) 22:11 by Octavio Dewey DO) (unknown) (no (unknown) (unknown) Medication (units (unk n) date) Instructions unknown) Recorded Confirmed Type (unknown) (no (unknown) (unknown) Meds (units (unkno wn) date) unknown) (unknown) (no (unknown) (unknown) Octavio Romo is a (units (unknown) date) 53-year-old male unknown) with known history of alcohol abuse, (unknown) (no (unknown) (unknown) Micro UA Comment (units (unknown) date) Microscopic normal unknown) (unknown) (no (unknown) (unknown) Micro UA Comment (units (unknown) date) unknown) (unknown) (no (unknown) (unknown) Pender # (Auto) 600 (units (unknown) date) unknown) (unknown) (no (unknown) (unknown) Pender # (Auto) (units ( unknown) date) unknown) (unknown) (no (unknown) (unknown) Pender % (Auto) 14.9 (units (unknown) date) H unknown) (unknown) (no (unknown) (unknown) Pender % (Auto) (units ( unknown) date) unknown) (unknown) (no (unknown) (unknown) Narrative: (units (unk nown) date) unknown) (unknown) (no (unknown) (unknown) Neut # (Auto) 1800 (units (unknown) date) unknown) (unknown) (no (unknown) (unknown) Neut # (Auto) (units ( unknown) date) unknown) (unknown) (no (unknown) (unknown) Neut % (Auto) 42.4 (units (unknown) date) L unknown) (unknown) (no (unknown) (unknown) Neut % (Auto) (units ( unknown) date) unknown) (unknown) (no (unknown) (unknown) Objective (units (unkn own) date) unknown) (unknown) (no (unknown) (unknown) Oxygen Delivery (units (unknown) date) Method Room Air unknown) (unknown) (no (unknown) (unknown) Oxygen Delivery (units (unknown) date) Method unknown) (unknown) (no (unknown) (unknown) PFSH (units (unkno wn) date) unknown) (unknown) (no (unknown) (unknown) PT 11.2 (units (unkno wn) date) unknown) (unknown) (no (unknown) (unknown) PT (units (unkno wn) date) unknown) (unknown) (no (unknown) (unknown) Patient: (units (unkno wn) date) Octavio Romo unknown) MR#: [id number] (unknown) (no (unknown) (unknown) Plt Count 296 (units ( unknown) date) unknown) (unknown) (no (unknown) (unknown) Plt Count (units (unkn own) date) unknown) (unknown) (no (unknown) (unknown) Potassium 3.9 (units ( unknown) date) unknown) (unknown) (no (unknown) (unknown) Potassium (units (unkn own) date) unknown) (unknown) (no (unknown) (unknown) Provider: (units (unkn own) date) Genesis Dunn unknown) [employer]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 (unknown) (no (unknown) (unknown) Pulse Oximetry 91 (units (unknown) date) 96 unknown) (unknown) (no (unknown) (unknown) Pulse Oximetry 92 (units (unknown) date) unknown) (unknown) (no (unknown) (unknown) Pulse Oximetry 94 (units (unknown) date) 94 unknown) (unknown) (no (unknown) (unknown) Pulse Oximetry 94 (units (unknown) date) 95 unknown) (unknown) (no (unknown) (unknown) Pulse Oximetry 94 (units (unknown) date) 96 unknown) (unknown) (no (unknown) (unknown) Pulse Oximetry 94 (units (unknown) date) unknown) (unknown) (no (unknown) (unknown) Pulse Oximetry 95 (units (unknown) date) 95 100 unknown) (unknown) (no (unknown) (unknown) Pulse Oximetry 95 (units (unknown) date) 96 unknown) (unknown) (no (unknown) (unknown) Pulse Oximetry 95 (units (unknown) date) unknown) (unknown) (no (unknown) (unknown) Pulse Oximetry 96 (units (unknown) date) 94 unknown) (unknown) (no (unknown) (unknown) Pulse Oximetry 96 (units (unknown) date) 96 unknown) (unknown) (no (unknown) (unknown) Pulse Oximetry 96 (units (unknown) date) unknown) (unknown) (no (unknown) (unknown) Pulse Rate 156 H (units (unknown) date) unknown) (unknown) (no (unknown) (unknown) Pulse Rate 69 (units ( unknown) date) unknown) (unknown) (no (unknown) (unknown) Pulse Rate 71 (units ( unknown) date) unknown) (unknown) (no (unknown) (unknown) Pulse Rate 74 101 (units (unknown) date) H unknown) (unknown) (no (unknown) (unknown) Pulse Rate 74 (units ( unknown) date) unknown) (unknown) (no (unknown) (unknown) Pulse Rate 75 (units ( unknown) date) unknown) (unknown) (no (unknown) (unknown) Pulse Rate 77 (units ( unknown) date) unknown) (unknown) (no (unknown) (unknown) Pulse Rate 78 60 (units (unknown) date) 57 L unknown) (unknown) (no (unknown) (unknown) Pulse Rate 78 74 (units (unknown) date) unknown) (unknown) (no (unknown) (unknown) Pulse Rate 81 77 (units (unknown) date) unknown) (unknown) (no (unknown) (unknown) Pulse Rate 83 80 (units (unknown) date) unknown) (unknown) (no (unknown) (unknown) Pulse Rate 85 78 (units (unknown) date) 168 H unknown) (unknown) (no (unknown) (unknown) Pulse Rate 89 94 H (units (unknown) date) unknown) (unknown) (no (unknown) (unknown) Pulse Rate 93 H 78 (units (unknown) date) unknown) (unknown) (no (unknown) (unknown) Pulse Rate 97 H 96 (units (unknown) date) H unknown) (unknown) (no (unknown) (unknown) RBC 3.80 L (units (unk nown) date) unknown) (unknown) (no (unknown) (unknown) RBC (units (unkno wn) date) unknown) (unknown) (no (unknown) (unknown) RDW 13.2 (units (unkno wn) date) unknown) (unknown) (no (unknown) (unknown) RDW (units (unkno wn) date) unknown) (unknown) (no (unknown) (unknown) Respiratory Rate (units (unknown) date) 10 L unknown) (unknown) (no (unknown) (unknown) Respiratory Rate (units (unknown) date) 11 L unknown) (unknown) (no (unknown) (unknown) Respiratory Rate (units (unknown) date) 13 13 unknown) (unknown) (no (unknown) (unknown) Respiratory Rate (units (unknown) date) 13 unknown) (unknown) (no (unknown) (unknown) Respiratory Rate (units (unknown) date) 14 14 unknown) (unknown) (no (unknown) (unknown) Respiratory Rate (units (unknown) date) 14 23 unknown) (unknown) (no (unknown) (unknown) Respiratory Rate (units (unknown) date) 14 unknown) (unknown) (no (unknown) (unknown) Respiratory Rate (units (unknown) date) 15 unknown) (unknown) (no (unknown) (unknown) Respiratory Rate (units (unknown) date) 16 unknown) (unknown) (no (unknown) (unknown) Respiratory Rate (units (unknown) date) 18 0 L 17 unknown) (unknown) (no (unknown) (unknown) Respiratory Rate (units (unknown) date) 19 15 unknown) (unknown) (no (unknown) (unknown) Respiratory Rate (units (unknown) date) 19 18 20 unknown) (unknown) (no (unknown) (unknown) Respiratory Rate (units (unknown) date) 24 17 unknown) (unknown) (no (unknown) (unknown) Respiratory Rate (units (unknown) date) unknown) (unknown) (no (unknown) (unknown) SARS-CoV-2 (PCR) (units (unknown) date) Negative unknown) (unknown) (no (unknown) (unknown) SARS-CoV-2 (PCR) (units (unknown) date) unknown) (unknown) (no (unknown) (unknown) Signed By: (units (unk nown) date) unknown) (unknown) (no (unknown) (unknown) Smoking Status: (units (unknown) date) Never smoker unknown) (unknown) (no (unknown) (unknown) Social History (units (unknown) date) (Reviewed 04/13/20 unknown) @ 20:09 by Derick Crandall MD) (unknown) (no (unknown) (unknown) Sodium 140 (units (unk nown) date) unknown) (unknown) (no (unknown) (unknown) Sodium (units (unkno wn) date) unknown) (unknown) (no (unknown) (unknown) Solostar U-100 (units (unknown) date) Insulin) unknown) (unknown) (no (unknown) (unknown) Time Patient Seen: (units (unknown) date) 22:42 unknown) (unknown) (no (unknown) (unknown) Total Bilirubin (units (unknown) date) 0.4 unknown) (unknown) (no (unknown) (unknown) Total Bilirubin (units (unknown) date) unknown) (unknown) (no (unknown) (unknown) Total Protein 7.2 (units (unknown) date) unknown) (unknown) (no (unknown) (unknown) Total Protein (units ( unknown) date) unknown) (unknown) (no (unknown) (unknown) U Benzodiazepines (units (unknown) date) Scrn Positive H unknown) (unknown) (no (unknown) (unknown) U Benzodiazepines (units (unknown) date) Scrn unknown) (unknown) (no (unknown) (unknown) U Marijuana (THC) (units (unknown) date) Screen Negative unknown) (unknown) (no (unknown) (unknown) U Marijuana (THC) (units (unknown) date) Screen unknown) (unknown) (no (unknown) (unknown) U Methamphetamines (units (unknown) date) Scrn Negative unknown) (unknown) (no (unknown) (unknown) U Methamphetamines (units (unknown) date) Scrn unknown) (unknown) (no (unknown) (unknown) U Opiates 300ng/mL (units (unknown) date) cut Positive H unknown) (unknown) (no (unknown) (unknown) U Opiates 300ng/mL (units (unknown) date) cut unknown) (unknown) (no (unknown) (unknown) U Tricyclic (units (un known) date) Antidepress unknown) Negative (unknown) (no (unknown) (unknown) U Tricyclic (units (un known) date) Antidepress unknown) (unknown) (no (unknown) (unknown) Ur Amphetamines (units (unknown) date) Screen Negative unknown) (unknown) (no (unknown) (unknown) Ur Amphetamines (units (unknown) date) Screen unknown) (unknown) (no (unknown) (unknown) Ur Barbiturates (units (unknown) date) Screen Negative unknown) (unknown) (no (unknown) (unknown) Ur Barbiturates (units (unknown) date) Screen unknown) (unknown) (no (unknown) (unknown) Ur Culture (units (unk nown) date) Indicated? Cult not unknown) indicated (unknown) (no (unknown) (unknown) Ur Culture (units (unk nown) date) Indicated? unknown) (unknown) (no (unknown) (unknown) Ur Leukocyte (units (u nknown) date) Esterase Negative unknown) (unknown) (no (unknown) (unknown) Ur Leukocyte (units (u nknown) date) Esterase unknown) (unknown) (no (unknown) (unknown) Ur MDMA Scrn (units (u nknown) date) (Ecstasy) Negative unknown) (unknown) (no (unknown) (unknown) Ur MDMA Scrn (units (u nknown) date) (Ecstasy) unknown) (unknown) (no (unknown) (unknown) Ur Oxycodone (units (u nknown) date) Screen Negative unknown) (unknown) (no (unknown) (unknown) Ur Oxycodone (units (u nknown) date) Screen unknown) (unknown) (no (unknown) (unknown) Ur Phencyclidine (units (unknown) date) Scrn Negative unknown) (unknown) (no (unknown) (unknown) Ur Phencyclidine (units (unknown) date) Scrn unknown) (unknown) (no (unknown) (unknown) Ur Specific (units (un known) date) [place] 1.010 unknown) (unknown) (no (unknown) (unknown) Ur Specific (units (un known) date) [place] unknown) (unknown) (no (unknown) (unknown) Urine Appearance (units (unknown) date) Clear unknown) (unknown) (no (unknown) (unknown) Urine Appearance (units (unknown) date) unknown) (unknown) (no (unknown) (unknown) Urine Bacteria (units (unknown) date) None seen unknown) (unknown) (no (unknown) (unknown) Urine Bacteria (units (unknown) date) unknown) (unknown) (no (unknown) (unknown) Urine Bilirubin (units (unknown) date) Negative unknown) (unknown) (no (unknown) (unknown) Urine Bilirubin (units (unknown) date) unknown) (unknown) (no (unknown) (unknown) Urine Cocaine (units ( unknown) date) Screen Negative unknown) (unknown) (no (unknown) (unknown) Urine Cocaine (units ( unknown) date) Screen unknown) (unknown) (no (unknown) (unknown) Urine Color Yellow (units (unknown) date) unknown) (unknown) (no (unknown) (unknown) Urine Color (units (un known) date) unknown) (unknown) (no (unknown) (unknown) Urine Glucose (UA) (units (unknown) date) 2+ H unknown) (unknown) (no (unknown) (unknown) Urine Glucose (UA) (units (unknown) date) unknown) (unknown) (no (unknown) (unknown) Urine Ketones (units ( unknown) date) Negative unknown) (unknown) (no (unknown) (unknown) Urine Ketones (units ( unknown) date) unknown) (unknown) (no (unknown) (unknown) Urine Methadone (units (unknown) date) Screen Negative unknown) (unknown) (no (unknown) (unknown) Urine Methadone (units (unknown) date) Screen unknown) (unknown) (no (unknown) (unknown) Urine Nitrate (units ( unknown) date) Negative unknown) (unknown) (no (unknown) (unknown) Urine Nitrate (units ( unknown) date) unknown) (unknown) (no (unknown) (unknown) Urine Occult Blood (units (unknown) date) Negative unknown) (unknown) (no (unknown) (unknown) Urine Occult Blood (units (unknown) date) unknown) (unknown) (no (unknown) (unknown) Urine Protein (units ( unknown) date) Negative unknown) (unknown) (no (unknown) (unknown) Urine Protein (units ( unknown) date) unknown) (unknown) (no (unknown) (unknown) Urine RBC None (units (unknown) date) seen unknown) (unknown) (no (unknown) (unknown) Urine RBC (units (unkn own) date) unknown) (unknown) (no (unknown) (unknown) Urine Urobilinogen (units (unknown) date) 1.0 unknown) (unknown) (no (unknown) (unknown) Urine Urobilinogen (units (unknown) date) unknown) (unknown) (no (unknown) (unknown) Urine WBC None (units (unknown) date) seen unknown) (unknown) (no (unknown) (unknown) Urine WBC (units (unkn own) date) unknown) (unknown) (no (unknown) (unknown) Urine pH 6.5 (units (u nknown) date) unknown) (unknown) (no (unknown) (unknown) Urine pH (units (unkno wn) date) unknown) (unknown) (no (unknown) (unknown) Vital Signs (units (un known) date) unknown) (unknown) (no (unknown) (unknown) WAS (units (unkno wn) date) unknown) (unknown) (no (unknown) (unknown) WBC 4.3 L (units (unkn own) date) unknown) (unknown) (no (unknown) (unknown) WBC (units (unkno wn) date) unknown) (unknown) (no (unknown) (unknown) [Embedded Image (units (unknown) date) Not Available] unknown) (unknown) (no (unknown) (unknown) [From BETADINE] (units (unknown) date) FEELS LIKE unknown) (unknown) (no (unknown) (unknown) [SHELLFISH (units (unk nown) date) DERIVED] LIKE IT unknown) (unknown) (no (unknown) (unknown) abdomen.? Patient (units (unknown) date) states he does not unknown) know who he is aware he is.? He is able to (unknown) (no (unknown) (unknown) about a few mL (units (unknown) date) left today when EMS unknown) arrived. (unknown) (no (unknown) (unknown) atorvastatin 40 mg (units (unknown) date) tablet 40 mg PO unknown) BEDTIME 01/14/23 01/14/23 History (unknown) (no (unknown) (unknown) bathroom with some (units (unknown) date) broken glass, unknown) medics state the glass was cleaned up they did (unknown) (no (unknown) (unknown) bathroom.? They (units (unknown) date) also note that they unknown) were called out for a wellness check (unknown) (no (unknown) (unknown) chest and upper (units (unknown) date) abdomen she is unknown) unsure.? Patient was found at home in the (unknown) (no (unknown) (unknown) confused.? Patient (units (unknown) date) states he drinks at unknown) least a 5th daily, he denies tobacco or (unknown) (no (unknown) (unknown) dextroamphetamine- (units (unknown) date) amphetamine 20 20 unknown) mg PO BID 01/14/23 01/14/23 History (unknown) (no (unknown) (unknown) does not give (units ( unknown) date) one.? Medics a unknown) girlfriend last saw the patient on she (unknown) (no (unknown) (unknown) furosemide 20 mg (units (unknown) date) tablet 20 mg PO unknown) DAILY 01/14/23 01/14/23 History (unknown) (no (unknown) (unknown) give his name when (units (unknown) date) he is registered.? unknown) Patient is confused but follows commands (unknown) (no (unknown) (unknown) has a small burn (units (unknown) date) on his right unknown) forearm and he has bruising his girlfriend told (unknown) (no (unknown) (unknown) has what appears to (units (unknown) date) be scabbed unknown) superficial laceration over his right forehead he (unknown) (no (unknown) (unknown) he is redirectable (units (unknown) date) although he keeps unknown) saying he wants to get out of the bed.? He (unknown) (no (unknown) (unknown) illicit.? He (units (u nknown) date) states he did not unknown) do his injections which he states are insulin.? (unknown) (no (unknown) (unknown) insulin glargine (units (unknown) date) 100 unit/mL (3 20 unknown) unit SUBCUT BEDTIME 01/14/23 01/14/23 History (unknown) (no (unknown) (unknown) insulin lispro 100 (units (unknown) date) unit/mL See Rx unknown) Instructions .Route .COMPLEX 01/14/23 01/14/23 (unknown) (no (unknown) (unknown) insulin-dependent (units (unknown) date) diabetes and unknown) chronic pain with a pain pump in his left (unknown) (no (unknown) (unknown) kill himself when (units (unknown) date) asked why he does unknown) not answer.? When asked if he has a plan he (unknown) (no (unknown) (unknown) losartan 100 mg (units (unknown) date) tablet 100 mg PO unknown) DAILY 01/14/23 01/14/23 History (unknown) (no (unknown) (unknown) mL) subcutaneous (units (unknown) date) pen (Lantus unknown) (unknown) (no (unknown) (unknown) medics that is (units (unknown) date) bruising on his unknown) left abdomen is from injections but onto his (unknown) (no (unknown) (unknown) mg tablet (units (unkn own) date) unknown) (unknown) (no (unknown) (unknown) not see anything (units (unknown) date) amiss in the house unknown) but he had been found on the ground in the (unknown) (no (unknown) (unknown) noted that he (units ( unknown) date) bought a bottle of unknown) hard liquor at that time and there was only (unknown) (no (unknown) (unknown) penicillin G (units (u nknown) date) [PENICILLIN G] unknown) Allergy Unknown LEFT EAR Verified 07/27/18 10:10 (unknown) (no (unknown) (unknown) povidone-iodine (units (unknown) date) Allergy Unknown unknown) 'SKIN Verified 07/27/18 10:10 (unknown) (no (unknown) (unknown) present at that (units (unknown) date) time.? Patient does unknown) not recall what trauma occurred.? The (unknown) (no (unknown) (unknown) propranolol 20 mg (units (unknown) date) tablet 20 mg PO BID unknown) 01/14/23 01/14/23 History (unknown) (no (unknown) (unknown) shellfish derived (units (unknown) date) Allergy Unknown unknown) 'SKIN FELT Verified 07/27/18 10:10 (unknown) (no (unknown) (unknown) soap [From (units (unk nown) date) BETADINE] Allergy unknown) Unknown 'SKIN Verified 07/27/18 10:10 (unknown) (no (unknown) (unknown) somewhat (units (unkno wn) date) repetitive.? unknown) Patient denies pain, no shortness of breath, no GI or (unknown) (no (unknown) (unknown) subcutaneous pen (units (unknown) date) (Humalog KwikPen unknown) (unknown) (no (unknown) (unknown) tamsulosin 0.4 mg (units (unknown) date) capsule 0.4 mg PO unknown) DAILY 01/14/23 01/14/23 History (unknown) (no (unknown) (unknown) urinary symptoms.? (units (unknown) date) He is moving all unknown) his extremities well.? Is conversant but (unknown) (no (unknown) (unknown) wanted to kill (units (unknown) date) himself to the unknown) medics and when asked he states he does want to (unknown) (no (unknown) (unknown) yesterday they (units (unknown) date) found blood in a unknown) different location but the patient was not Result panel 234 (unknown) (no date) (unknown) (unknown) 237 mg/dl (unkn own) (unknown) (no date) (unknown) (unknown) 237 mg/dl 85777 -2 (unknown) (no date) (unknown) (unknown) 9.9 % 4548- 4 (unknown) (no date) (unknown) (unknown) 9.9 % (unkn own) Result panel 235 (unknown) (no date) (unknown) (unknown) 0 /ul (unkn own) (unknown) (no date) (unknown) (unknown) 0 /ul (unkn own) (unknown) (no date) (unknown) (unknown) 0.1 % (unkn own) (unknown) (no date) (unknown) (unknown) 0.3 % (unkn own) (unknown) (no date) (unknown) (unknown) 12.4 g/dl (unkn own) (unknown) (no date) (unknown) (unknown) 13.0 % (unkn own) (unknown) (no date) (unknown) (unknown) 13.7 % (unkn own) (unknown) (no date) (unknown) (unknown) 13.7 % (unkn own) (unknown) (no date) (unknown) (unknown) 200 /ul (unkn own) (unknown) (no date) (unknown) (unknown) 3.84 x10 6/ul (unkn own) (unknown) (no date) (unknown) (unknown) 32.4 pg (unkn own) (unknown) (no date) (unknown) (unknown) 324 x10 3/ul (unkn own) (unknown) (no date) (unknown) (unknown) 33.3 % (unkn own) (unknown) (no date) (unknown) (unknown) 37.4 % (unkn own) (unknown) (no date) (unknown) (unknown) 3700 /ul (unkn own) (unknown) (no date) (unknown) (unknown) 4.1 % (unkn own) (unknown) (no date) (unknown) (unknown) 4.6 x10 3/ul (unkn own) (unknown) (no date) (unknown) (unknown) 600 /ul (unkn own) (unknown) (no date) (unknown) (unknown) 81.8 % (unkn own) (unknown) (no date) (unknown) (unknown) 81.8 % (unkn own) (unknown) (no date) (unknown) (unknown) 97.5 fl (unkn own) Result panel 236 (unknown) (no date) (unknown) (unknown) < 9 umol/l (unkn own) Result panel 237 (unknown) (no date) (unknown) (unknown) 1.6 mg/dl (unkn own) Result panel 238 (unknown) (no date) (unknown) (unknown) > 60 ml/min (unkn own) (unknown) (no date) (unknown) (unknown) > 60 ml/min (unkn own) (unknown) (no date) (unknown) (unknown) 0.52 mg/dl (unkn own) (unknown) (no date) (unknown) (unknown) 0.6 mg/dl (unkn own) (unknown) (no date) (unknown) (unknown) 1.3 (units unknown) (unknown) (unknown) (no date) (unknown) (unknown) 13 mg/dl (unkn own) (unknown) (no date) (unknown) (unknown) 133 mmol/l (unkn own) (unknown) (no date) (unknown) (unknown) 139 u/l (unkn own) (unknown) (no date) (unknown) (unknown) 25.0 (units unknown) (unknown) (unknown) (no date) (unknown) (unknown) 29 mmol/l (unkn own) (unknown) (no date) (unknown) (unknown) 3.1 g/dl (unkn own) (unknown) (no date) (unknown) (unknown) 357 mg/dl (unkn own) (unknown) (no date) (unknown) (unknown) 357 mg/dl (unkn own) (unknown) (no date) (unknown) (unknown) 4.0 g/dl (unkn own) (unknown) (no date) (unknown) (unknown) 4.3 mmol/l (unkn own) (unknown) (no date) (unknown) (unknown) 7.1 g/dl (unkn own) (unknown) (no date) (unknown) (unknown) 8.7 mg/dl (unkn own) (unknown) (no date) (unknown) (unknown) 93 iu/l (unkn own) (unknown) (no date) (unknown) (unknown) 93 mmol/l (unkn own) (unknown) (no date) (unknown) (unknown) 96 iu/l (unkn own) Result panel 239 (unknown) (no (unknown) (unknown) (no value) (units (unk nown) date) unknown) (unknown) (no (unknown) (unknown) (U-100) Insulin) (units (unknown) date) unknown) (unknown) (no (unknown) (unknown) [id number] (units (unkno wn) date) unknown) (unknown) (no (unknown) (unknown) 01/14/23 01/14/23 (units (unknown) date) 01/14/23 Range/Units unknown) (unknown) (no (unknown) (unknown) 01/14/23 10:45 (units (unknown) date) unknown) (unknown) (no (unknown) (unknown) 01/14/23 15:25 (units (unknown) date) unknown) (unknown) (no (unknown) (unknown) 01/14/23 17:01 (units (unknown) date) unknown) (unknown) (no (unknown) (unknown) 01/14/23 18:15 (units (unknown) date) unknown) (unknown) (no (unknown) (unknown) 01/14/23 23:10 (units (unknown) date) unknown) (unknown) (no (unknown) (unknown) 01/14/23 (units (unkno wn) date) Range/Units unknown) (unknown) (no (unknown) (unknown) 01/14/23 (units (unkno wn) date) unknown) (unknown) (no (unknown) (unknown) 10:45 10:45 10:45 (units (unknown) date) unknown) (unknown) (no (unknown) (unknown) 10:45 11:23 13:48 (units (unknown) date) unknown) (unknown) (no (unknown) (unknown) 14:09 14:09 15:25 (units (unknown) date) unknown) (unknown) (no (unknown) (unknown) 16:00 01/14/23 (units (unknown) date) unknown) (unknown) (no (unknown) (unknown) 16:30 01/14/23 (units (unknown) date) unknown) (unknown) (no (unknown) (unknown) 16:30 (units (unkno wn) date) unknown) (unknown) (no (unknown) (unknown) 17:00 01/14/23 (units (unknown) date) unknown) (unknown) (no (unknown) (unknown) 17:00 (units (unkno wn) date) unknown) (unknown) (no (unknown) (unknown) 17:30 01/14/23 (units (unknown) date) unknown) (unknown) (no (unknown) (unknown) 18:00 01/14/23 (units (unknown) date) unknown) (unknown) (no (unknown) (unknown) 18:00 (units (unkno wn) date) unknown) (unknown) (no (unknown) (unknown) 18:15 (units (unkno wn) date) unknown) (unknown) (no (unknown) (unknown) 18:30 01/14/23 (units (unknown) date) unknown) (unknown) (no (unknown) (unknown) 18:30 (units (unkno wn) date) unknown) (unknown) (no (unknown) (unknown) 19:00 01/14/23 (units (unknown) date) unknown) (unknown) (no (unknown) (unknown) 19:15 01/14/23 (units (unknown) date) unknown) (unknown) (no (unknown) (unknown) 19:15 (units (unkno wn) date) unknown) (unknown) (no (unknown) (unknown) 19:20 01/14/23 (units (unknown) date) unknown) (unknown) (no (unknown) (unknown) 19:25 01/14/23 (units (unknown) date) unknown) (unknown) (no (unknown) (unknown) 19:25 (units (unkno wn) date) unknown) (unknown) (no (unknown) (unknown) 19:30 01/14/23 (units (unknown) date) unknown) (unknown) (no (unknown) (unknown) 19:30 (units (unkno wn) date) unknown) (unknown) (no (unknown) (unknown) 19:34 01/14/23 (units (unknown) date) unknown) (unknown) (no (unknown) (unknown) 19:35 01/14/23 (units (unknown) date) unknown) (unknown) (no (unknown) (unknown) 19:35 (units (unkno wn) date) unknown) (unknown) (no (unknown) (unknown) 19:40 01/14/23 (units (unknown) date) unknown) (unknown) (no (unknown) (unknown) 19:45 01/14/23 (units (unknown) date) unknown) (unknown) (no (unknown) (unknown) 19:45 (units (unkno wn) date) unknown) (unknown) (no (unknown) (unknown) 19:50 01/14/23 (units (unknown) date) unknown) (unknown) (no (unknown) (unknown) 19:50 (units (unkno wn) date) unknown) (unknown) (no (unknown) (unknown) 19:55 01/14/23 (units (unknown) date) unknown) (unknown) (no (unknown) (unknown) 2016 white count of (unit s (unknown) date) 4.3 normal platelets unknown) at 296. Coags are negative, renal (unknown) (no (unknown) (unknown) 20:00 01/14/23 (units (unknown) date) unknown) (unknown) (no (unknown) (unknown) 20:00 (units (unkno wn) date) unknown) (unknown) (no (unknown) (unknown) 20:05 01/14/23 (units (unknown) date) unknown) (unknown) (no (unknown) (unknown) 20:05 (units (unkno wn) date) unknown) (unknown) (no (unknown) (unknown) 20:30 01/14/23 (units (unknown) date) unknown) (unknown) (no (unknown) (unknown) 21:00 01/14/23 (units (unknown) date) unknown) (unknown) (no (unknown) (unknown) 21:00 (units (unkno wn) date) unknown) (unknown) (no (unknown) (unknown) 21:30 01/14/23 (units (unknown) date) unknown) (unknown) (no (unknown) (unknown) 21:30 (units (unkno wn) date) unknown) (unknown) (no (unknown) (unknown) 22:00 (units (unkno wn) date) unknown) (unknown) (no (unknown) (unknown) 4 extremities (units ( unknown) date) moving, cranial unknown) nerves II through XII are intact, GCS is 15 (unknown) (no (unknown) (unknown) ABG/GI: Nontender, (units (unknown) date) soft, normal bowel unknown) sounds, no distention, no organomegaly, (unknown) (no (unknown) (unknown) AGE 12YR (units (unkno wn) date) unknown) (unknown) (no (unknown) (unknown) ALT (<50) IU/L (units (unknown) date) unknown) (unknown) (no (unknown) (unknown) ALT 88 H (<50) IU/L (unit s (unknown) date) unknown) (unknown) (no (unknown) (unknown) APTT (26-36) (units (u nknown) date) SECONDS unknown) (unknown) (no (unknown) (unknown) APTT 34 (26-36) (units (unknown) date) SECONDS unknown) (unknown) (no (unknown) (unknown) AST (17-59) IU/L (units (unknown) date) unknown) (unknown) (no (unknown) (unknown) AST 87 H (17-59) (units (unknown) date) IU/L unknown) (unknown) (no (unknown) (unknown) Acetaminophen (units ( unknown) date) (Acetaminophen 325 unknown) Mg Tablet) 650 mg PO NOW ONE (unknown) (no (unknown) (unknown) Acetaminophen (units ( unknown) date) (Acetaminophen 325 unknown) Mg Tablet) 650 mg PO Q6H PRN (unknown) (no (unknown) (unknown) Admin: 01/14/23 (units (unknown) date) 22:31 Dose: 404 unknown) mls/hr (unknown) (no (unknown) (unknown) Admit Date/Time: (units (unknown) date) 01/14/23 22:12 unknown) (unknown) (no (unknown) (unknown) Admit Provider: (units (unknown) date) Genesis Dunn unknown) (unknown) (no (unknown) (unknown) Age/Sex: 53 / M (units (unknown) date) unknown) (unknown) (no (unknown) (unknown) Albumin (3.5-5.0) (units (unknown) date) g/dL unknown) (unknown) (no (unknown) (unknown) Albumin 4.0 (units (un known) date) (3.5-5.0) g/dL unknown) (unknown) (no (unknown) (unknown) Albumin/Globulin (units (unknown) date) Ratio (1.0-2.8) unknown) (unknown) (no (unknown) (unknown) Albumin/Globulin (units (unknown) date) Ratio 1.3 (1.0-2.8) unknown) (unknown) (no (unknown) (unknown) Alkaline (units (unkno wn) date) Phosphatase (38-126) unknown) U/L (unknown) (no (unknown) (unknown) Alkaline (units (unkno wn) date) Phosphatase 146 H unknown) (38-126) U/L (unknown) (no (unknown) (unknown) Allergies (units (unkn own) date) unknown) (unknown) (no (unknown) (unknown) Allergy/AdvReac (units (unknown) date) Type Severity unknown) Reaction Status Date / Time (unknown) (no (unknown) (unknown) Another facility is (unit s (unknown) date) evaluating the unknown) patient. Patient signed out to Dr. Dewey, (unknown) (no (unknown) (unknown) Antibody Screen (units (unknown) date) Negative unknown) (unknown) (no (unknown) (unknown) Antibody Screen (units (unknown) date) unknown) (unknown) (no (unknown) (unknown) Atorvastatin (units (u nknown) date) Calcium unknown) (Atorvastatin 20 Mg Tablet) 40 mg PO BEDTIME RAND (unknown) (no (unknown) (unknown) Attestation: I (units (unknown) date) personally reviewed unknown) and interpreted this ECG as follows: (unknown) (no (unknown) (unknown) BACK: No CVA (units (u nknown) date) tenderness, no unknown) vertebral tenderness, no step-off's, no crepitus (unknown) (no (unknown) (unknown) BUN (9-20) mg/dL (units (unknown) date) unknown) (unknown) (no (unknown) (unknown) BUN 8 L (9-20) (units (unknown) date) mg/dL unknown) (unknown) (no (unknown) (unknown) BUN/Creatinine (units (unknown) date) Ratio (6-22) unknown) (unknown) (no (unknown) (unknown) BUN/Creatinine (units (unknown) date) Ratio 19.0 (6-22) unknown) (unknown) (no (unknown) (unknown) BURNING' (units (unkno wn) date) unknown) (unknown) (no (unknown) (unknown) Baso # (Auto) (units ( unknown) date) (0-100) /uL unknown) (unknown) (no (unknown) (unknown) Baso # (Auto) 100 (units (unknown) date) (0-100) /uL unknown) (unknown) (no (unknown) (unknown) Baso % (Auto) (0-2) (unit s (unknown) date) % unknown) (unknown) (no (unknown) (unknown) Baso % (Auto) 1.4 (units (unknown) date) (0-2) % unknown) (unknown) (no (unknown) (unknown) Benadryl and (units (u nknown) date) Solu-Medrol as he unknown) was felt stable. CT imaging of the brain shows (unknown) (no (unknown) (unknown) Blood Pressure (units (unknown) date) 113/56 L unknown) (unknown) (no (unknown) (unknown) Blood Pressure (units (unknown) date) 121/73 130/82 unknown) (unknown) (no (unknown) (unknown) Blood Pressure (units (unknown) date) 124/84 137/85 unknown) (unknown) (no (unknown) (unknown) Blood Pressure (units (unknown) date) 129/80 unknown) (unknown) (no (unknown) (unknown) Blood Pressure (units (unknown) date) 130/92 H 132/96 H unknown) (unknown) (no (unknown) (unknown) Blood Pressure (units (unknown) date) 137/72 106/52 L unknown) (unknown) (no (unknown) (unknown) Blood Pressure (units (unknown) date) 138/102 H unknown) (unknown) (no (unknown) (unknown) Blood Pressure (units (unknown) date) 138/76 143/94 H unknown) (unknown) (no (unknown) (unknown) Blood Pressure (units (unknown) date) 141/93 H unknown) (unknown) (no (unknown) (unknown) Blood Pressure (units (unknown) date) 148/82 H unknown) (unknown) (no (unknown) (unknown) Blood Pressure (units (unknown) date) 149/94 H 01/14/23 unknown) 10:22 (unknown) (no (unknown) (unknown) Blood Pressure (units (unknown) date) 155/95 H unknown) (unknown) (no (unknown) (unknown) Blood Pressure (units (unknown) date) 162/103 H unknown) (unknown) (no (unknown) (unknown) Blood Pressure (units (unknown) date) 169/93 H unknown) (unknown) (no (unknown) (unknown) Blood Pressure (units (unknown) date) 175/108 H 158/95 H unknown) (unknown) (no (unknown) (unknown) Blood Pressure (units (unknown) date) unknown) (unknown) (no (unknown) (unknown) Blood Type O (units (u nknown) date) Positive unknown) (unknown) (no (unknown) (unknown) Blood Type (units (unk nown) date) unknown) (unknown) (no (unknown) (unknown) COVID19 -Nasal (units (unknown) date) RAPID Stat unknown) (unknown) (no (unknown) (unknown) CVS: Heart sounds (units (unknown) date) are normal, no unknown) murmur noted, No JVD. (unknown) (no (unknown) (unknown) Calcium (8.4-10.2) (units (unknown) date) mg/dL unknown) (unknown) (no (unknown) (unknown) Calcium 8.5 (units (un known) date) (8.4-10.2) mg/dL unknown) (unknown) (no (unknown) (unknown) Carbon Dioxide (units (unknown) date) (22-32) mmol/L unknown) (unknown) (no (unknown) (unknown) Carbon Dioxide 30 (units (unknown) date) (22-32) mmol/L unknown) (unknown) (no (unknown) (unknown) Chief Complaint: (units (unknown) date) Trauma unknown) (unknown) (no (unknown) (unknown) Chloride (98-107) (units (unknown) date) mmol/L unknown) (unknown) (no (unknown) (unknown) Chloride 100 (units (u nknown) date) (98-107) mmol/L unknown) (unknown) (no (unknown) (unknown) Chronic low back (units (unknown) date) pain unknown) (unknown) (no (unknown) (unknown) Clinical (units (unkno wn) date) Impression: unknown) (unknown) (no (unknown) (unknown) Course (units (unkno wn) date) unknown) (unknown) (no (unknown) (unknown) Creatinine (units (unk nown) date) (0.66-1.25) mg/dL unknown) (unknown) (no (unknown) (unknown) Creatinine 0.42 L (units (unknown) date) (0.66-1.25) mg/dL unknown) (unknown) (no (unknown) (unknown) : 1970 (units (unknown) date) Acct:[id number] unknown) (unknown) (no (unknown) (unknown) Date of Service: (units (unknown) date) 01/14/23 unknown) (unknown) (no (unknown) (unknown) Departure (units (unkn own) date) unknown) (unknown) (no (unknown) (unknown) Dextrose (Dextrose (units (unknown) date) 50 % In Water 25 unknown) Gm/50 Ml Syringe) 25 gm IV PRN PRN (unknown) (no (unknown) (unknown) Diphenhydramine HCl (unit s (unknown) date) (Diphenhydramine 50 unknown) Mg/Ml Vial) 50 mg IV NOW ONE (unknown) (no (unknown) (unknown) Diphtheria/Tetanus/ (unit s (unknown) date) Acell Pertussis unknown) (Tet,Diph,Pertuss(Ac ell),Vac/Pf 0.5 Ml (unknown) (no (unknown) (unknown) Discharge Plan (units (unknown) date) unknown) (unknown) (no (unknown) (unknown) Discontinued (units (u nknown) date) Medications unknown) (unknown) (no (unknown) (unknown) Documented By: AGW (units (unknown) date) unknown) (unknown) (no (unknown) (unknown) Documented By: AT (units (unknown) date) Co-signed By: MORA unknown) (unknown) (no (unknown) (unknown) Documented By: AT (units (unknown) date) unknown) (unknown) (no (unknown) (unknown) Documented By: KB (units (unknown) date) unknown) (unknown) (no (unknown) (unknown) Documented By: MORA (units (unknown) date) unknown) (unknown) (no (unknown) (unknown) Documented By: MO (units (unknown) date) unknown) (unknown) (no (unknown) (unknown) Documented By: SB (units (unknown) date) unknown) (unknown) (no (unknown) (unknown) ECG Data (units (unkno wn) date) unknown) (unknown) (no (unknown) (unknown) ED Orders (units (unkn own) date) unknown) (unknown) (no (unknown) (unknown) EKG-12 Lead Stat (units (unknown) date) unknown) (unknown) (no (unknown) (unknown) ENT: Patient has (units (unknown) date) superficial scabbed unknown) laceration over his right brow, does not (unknown) (no (unknown) (unknown) ER Physician: (units ( unknown) date) Octavio Dewey D.O. unknown) (unknown) (no (unknown) (unknown) ETOH [Ethanol (units ( unknown) date) (ETOH)] Stat unknown) (unknown) (no (unknown) (unknown) EXT: Atraumatic (units (unknown) date) other than skin unknown) changes. hips are nontender, no pedal edema, (unknown) (no (unknown) (unknown) EYES: PERRLA, EOMI (units (unknown) date) unknown) (unknown) (no (unknown) (unknown) Emergency Report (units (unknown) date) unknown) (unknown) (no (unknown) (unknown) Eos # (Auto) (units (u nknown) date) (0-450) /uL unknown) (unknown) (no (unknown) (unknown) Eos # (Auto) 100 (units (unknown) date) (0-450) /uL unknown) (unknown) (no (unknown) (unknown) Eos % (Auto) (2-4) (units (unknown) date) % unknown) (unknown) (no (unknown) (unknown) Eos % (Auto) 2.2 (units (unknown) date) (2-4) % unknown) (unknown) (no (unknown) (unknown) Estimated GFR > 60 (units (unknown) date) (>60) mL/min unknown) (unknown) (no (unknown) (unknown) Estimated GFR (>60) (unit s (unknown) date) mL/min unknown) (unknown) (no (unknown) (unknown) Ethyl Alcohol ( - (units (unknown) date) 10) mg/dL unknown) (unknown) (no (unknown) (unknown) Ethyl Alcohol 308 H (unit s (unknown) date) ( - 10) mg/dL unknown) (unknown) (no (unknown) (unknown) Ethyl Alcohol 91 H (units (unknown) date) ( - 10) mg/dL unknown) (unknown) (no (unknown) (unknown) Exam (units (unkno wn) date) unknown) (unknown) (no (unknown) (unknown) FEELS LIKE (units (unk nown) date) unknown) (unknown) (no (unknown) (unknown) Folic Acid (Folic (units (unknown) date) Acid 1 Mg Tablet) 1 unknown) mg PO DAILY RAND (unknown) (no (unknown) (unknown) GEN: C-collar was (units (unknown) date) placed by EMS in the unknown) field but patient would not keep it on. (unknown) (no (unknown) (unknown) General (units (unkno wn) date) unknown) (unknown) (no (unknown) (unknown) Globulin (1.7-4.1) (units (unknown) date) g/dL unknown) (unknown) (no (unknown) (unknown) Globulin 3.2 (units (u nknown) date) (1.7-4.1) g/dL unknown) (unknown) (no (unknown) (unknown) Glucose (70-100) (units (unknown) date) mg/dL unknown) (unknown) (no (unknown) (unknown) Glucose 254 H (units ( unknown) date) (70-100) mg/dL unknown) (unknown) (no (unknown) (unknown) Glucose POC 344 (units (unknown) date) unknown) (unknown) (no (unknown) (unknown) HEAD: No evidence (units (unknown) date) of trauma, no unknown) raccoon/Johnson sign. (unknown) (no (unknown) (unknown) HEARING (units (unkno wn) date) unknown) (unknown) (no (unknown) (unknown) HPI - Trauma (units (u nknown) date) unknown) (unknown) (no (unknown) (unknown) HPI narrative: (units (unknown) date) unknown) (unknown) (no (unknown) (unknown) Hct (41-53) % (units ( unknown) date) unknown) (unknown) (no (unknown) (unknown) Hct 36.9 L (41-53) (units (unknown) date) % unknown) (unknown) (no (unknown) (unknown) Hgb (13.5-17.5) (units (unknown) date) g/dL unknown) (unknown) (no (unknown) (unknown) Hgb 12.3 L (units (unk nown) date) (13.5-17.5) g/dL unknown) (unknown) (no (unknown) (unknown) History of Present (units (unknown) date) Illness unknown) (unknown) (no (unknown) (unknown) Home Medications (units (unknown) date) unknown) (unknown) (no (unknown) (unknown) INR (0.9-1.3) (units ( unknown) date) unknown) (unknown) (no (unknown) (unknown) INR 1.0 (0.9-1.3) (units (unknown) date) unknown) (unknown) (no (unknown) (unknown) Initial Vital Signs (unit s (unknown) date) unknown) (unknown) (no (unknown) (unknown) Initial Vital (units ( unknown) date) Signs: unknown) (unknown) (no (unknown) (unknown) Insulin Glargine (units (unknown) date) (Insulin Glargine unknown) 100 Unit/Ml 3ml Pen) 20 unit SUBCUT 2100 RAND (unknown) (no (unknown) (unknown) Insulin Glargine (units (unknown) date) (Insulin Glargine unknown) 100 Unit/Ml 3ml Pen) 20 unit SUBCUT NOW ONE (unknown) (no (unknown) (unknown) Insulin Human (units ( unknown) date) Lispro (Insulin unknown) Lispro 100 Unit/Ml 3ml Vial) 0 unit SUBCUT ACHS (unknown) (no (unknown) (unknown) Interpretation: (units (unknown) date) unknown) (unknown) (no (unknown) (unknown) [facility] (units (unknown) date) [address] unknown) [place] [address] (unknown) (no (unknown) (unknown) Ketorolac (units (unkn own) date) Tromethamine unknown) (Ketorolac 30 Mg/Ml Vial) 15 mg IV NOW ONE (unknown) (no (unknown) (unknown) LOSS AT (units (unkno wn) date) unknown) (unknown) (no (unknown) (unknown) Lab Data (units (unkno wn) date) unknown) (unknown) (no (unknown) (unknown) Lab Results (units (un known) date) unknown) (unknown) (no (unknown) (unknown) Labs show an ETOH (units (unknown) date) of 308, patient has unknown) a hemoglobin of 12 baseline compared to (unknown) (no (unknown) (unknown) Labs: (units (unkno wn) date) unknown) (unknown) (no (unknown) (unknown) Lactate (0.7-2.1) (units (unknown) date) mmol/L unknown) (unknown) (no (unknown) (unknown) Lactate 2.1 1.9 (units (unknown) date) (0.7-2.1) mmol/L unknown) (unknown) (no (unknown) (unknown) Last Admin: (units (un known) date) 01/14/23 10:42 Dose: unknown) 0.5 mg (unknown) (no (unknown) (unknown) Last Admin: (units (un known) date) 01/14/23 11:11 Dose: unknown) 50 mg (unknown) (no (unknown) (unknown) Last Admin: (units (un known) date) 01/14/23 11:12 Dose: unknown) 125 mg (unknown) (no (unknown) (unknown) Last Admin: (units (un known) date) 01/14/23 14:28 Dose: unknown) 260 mg (unknown) (no (unknown) (unknown) Last Admin: (units (un known) date) 01/14/23 14:29 Dose: unknown) 650 mg (unknown) (no (unknown) (unknown) Last Admin: (units (un known) date) 01/14/23 15:09 Dose: unknown) 0.5 ml (unknown) (no (unknown) (unknown) Last Admin: (units (un known) date) 01/14/23 18:00 Dose: unknown) 15 mg (unknown) (no (unknown) (unknown) Last Admin: (units (un known) date) 01/14/23 18:59 Dose: unknown) 20 unit (unknown) (no (unknown) (unknown) Last Admin: (units (un known) date) 01/14/23 19:21 Dose: unknown) 25 mg (unknown) (no (unknown) (unknown) Last Admin: (units (un known) date) 01/14/23 20:06 Dose: unknown) 1 mg (unknown) (no (unknown) (unknown) Last Admin: (units (un known) date) 01/14/23 23:29 Dose: unknown) 100 mls/hr (unknown) (no (unknown) (unknown) Last Admin: (units (un known) date) 01/14/23 23:29 Dose: unknown) 40 mg (unknown) (no (unknown) (unknown) Last Infusion: (units (unknown) date) 01/14/23 23:03 Dose: unknown) 404 mls/hr (unknown) (no (unknown) (unknown) Limitations: no (units (unknown) date) limitations unknown) (unknown) (no (unknown) (unknown) Lipase (23-300) U/L (unit s (unknown) date) unknown) (unknown) (no (unknown) (unknown) Lipase 109 (23-300) (unit s (unknown) date) U/L unknown) (unknown) (no (unknown) (unknown) Lorazepam (units (unkn own) date) (Lorazepam 2 Mg/Ml unknown) Inj) 0 mg IV CIWAPRN PRN; Protocol (unknown) (no (unknown) (unknown) Lorazepam (units (unkn own) date) (Lorazepam 2 Mg/Ml unknown) Inj) 0.5 mg IV NOW ONE (unknown) (no (unknown) (unknown) Lorazepam (units (unkn own) date) (Lorazepam 2 Mg/Ml unknown) Inj) 0.5 mg IV Q2HR PRN (unknown) (no (unknown) (unknown) Lorazepam (units (unkn own) date) (Lorazepam 2 Mg/Ml unknown) Inj) 1 mg IV NOW ONE (unknown) (no (unknown) (unknown) Losartan Potassium (units (unknown) date) (Losartan 50 Mg unknown) Tablet) 100 mg PO DAILY RAND (unknown) (no (unknown) (unknown) Lymph # (Auto) (units (unknown) date) (2488-0695) /uL unknown) (unknown) (no (unknown) (unknown) Lymph # (Auto) 1700 (unit s (unknown) date) (7286-6026) /uL unknown) (unknown) (no (unknown) (unknown) Lymph % (Auto) (units (unknown) date) (25-40) % unknown) (unknown) (no (unknown) (unknown) Lymph % (Auto) 39.1 (unit s (unknown) date) (25-40) % unknown) (unknown) (no (unknown) (unknown) MCH (26-34) PG (units (unknown) date) unknown) (unknown) (no (unknown) (unknown) MCH 32.5 (26-34) PG (unit s (unknown) date) unknown) (unknown) (no (unknown) (unknown) MCHC (30-36) % (units (unknown) date) unknown) (unknown) (no (unknown) (unknown) MCHC 33.5 (30-36) % (unit s (unknown) date) unknown) (unknown) (no (unknown) (unknown) MCV (80-100) fL (units (unknown) date) unknown) (unknown) (no (unknown) (unknown) MCV 97.1 (80-100) (units (unknown) date) fL unknown) (unknown) (no (unknown) (unknown) MDM - Trauma (units (u nknown) date) unknown) (unknown) (no (unknown) (unknown) MDM Narrative (units ( unknown) date) unknown) (unknown) (no (unknown) (unknown) Medical History (units (unknown) date) (Updated 01/14/23 @ unknown) 22:11 by Octavio Dewey DO) (unknown) (no (unknown) (unknown) Medical decision (units (unknown) date) making narrative: unknown) (unknown) (no (unknown) (unknown) Medication (units (unk nown) date) Instructions unknown) Recorded Confirmed (unknown) (no (unknown) (unknown) Methylprednisolone (units (unknown) date) (Methylprednisolone unknown) 125 Mg/2 Ml Vial) 125 mg IV NOW ONE (unknown) (no (unknown) (unknown) Metoprolol Tartrate (unit s (unknown) date) (Metoprolol Ir 25 Mg unknown) Tablet) 25 mg PO NOW ONE (unknown) (no (unknown) (unknown) Micro UA Comment (units (unknown) date) Microscopic normal unknown) (unknown) (no (unknown) (unknown) Micro UA Comment (units (unknown) date) unknown) (unknown) (no (unknown) (unknown) Mode of arrival: (units (unknown) date) EMS unknown) (unknown) (no (unknown) (unknown) Pender # (Auto) (units ( unknown) date) (0-900) /uL unknown) (unknown) (no (unknown) (unknown) Pender # (Auto) 600 (units (unknown) date) (0-900) /uL unknown) (unknown) (no (unknown) (unknown) Pender % (Auto) (units ( unknown) date) (3-14) % unknown) (unknown) (no (unknown) (unknown) Pender % (Auto) 14.9 (units (unknown) date) H (3-14) % unknown) (unknown) (no (unknown) (unknown) Multivitamins (units ( unknown) date) (Multivitamin 1 unknown) Tablet) 1 tab PO DAILY RAND (unknown) (no (unknown) (unknown) NECK: Nontender, (units (unknown) date) painless range of unknown) motion, trachea midline (unknown) (no (unknown) (unknown) NEURO: Oriented (units (unknown) date) AOx3, neuro is unknown) grossly intact, sensation and motor is normal all (unknown) (no (unknown) (unknown) Naloxone HCl (units (u nknown) date) (Naloxone 0.4 Mg/Ml unknown) Vial) 0.2 mg IV Q2MIN PRN (unknown) (no (unknown) (unknown) Narrative: (units (unk nown) date) unknown) (unknown) (no (unknown) (unknown) Neut # (Auto) (units ( unknown) date) (8098-6020) /uL unknown) (unknown) (no (unknown) (unknown) Neut # (Auto) 1800 (units (unknown) date) (3505-7542) /uL unknown) (unknown) (no (unknown) (unknown) Neut % (Auto) (units ( unknown) date) (50-75) % unknown) (unknown) (no (unknown) (unknown) Neut % (Auto) 42.4 (units (unknown) date) L (50-75) % unknown) (unknown) (no (unknown) (unknown) Nontender, (units (unk nown) date) incisions healed. unknown) (unknown) (no (unknown) (unknown) Ondansetron HCl (units (unknown) date) (Ondansetron 4 Mg/2 unknown) Ml Inj) 4 mg IV Q6HR PRN (unknown) (no (unknown) (unknown) Ordered: (units (unkno wn) date) unknown) (unknown) (no (unknown) (unknown) Orders (units (unkno wn) date) unknown) (unknown) (no (unknown) (unknown) Oxygen Delivery (units (unknown) date) Method Room Air unknown) 01/14/23 10:22 (unknown) (no (unknown) (unknown) Oxygen Delivery (units (unknown) date) Method Room Air Room unknown) Air (unknown) (no (unknown) (unknown) Oxygen Delivery (units (unknown) date) Method Room Air unknown) (unknown) (no (unknown) (unknown) Oxygen Delivery (units (unknown) date) Method unknown) (unknown) (no (unknown) (unknown) PRN Reason: Alcohol (unit s (unknown) date) Withdrawal unknown) (unknown) (no (unknown) (unknown) PRN Reason: Anxiety (unit s (unknown) date) unknown) (unknown) (no (unknown) (unknown) PRN Reason: (units (un known) date) Fever/Mild Pain unknown) (1-3) (unknown) (no (unknown) (unknown) PRN Reason: (units (un known) date) Hypoglycemia unknown) (unknown) (no (unknown) (unknown) PRN Reason: Nausea (units (unknown) date) And Vomiting unknown) (unknown) (no (unknown) (unknown) PRN Reason: Opiate (units (unknown) date) Reversal unknown) (unknown) (no (unknown) (unknown) PSYCH: Normal mood (units (unknown) date) and affect unknown) (unknown) (no (unknown) (unknown) PT (10.1-12.7) (units (unknown) date) SECONDS unknown) (unknown) (no (unknown) (unknown) PT 11.2 (10.1-12.7) (unit s (unknown) date) SECONDS unknown) (unknown) (no (unknown) (unknown) Pantoprazole Sodium (unit s (unknown) date) (Pantoprazole 40 Mg unknown) Vial) 40 mg IV NOW ONE (unknown) (no (unknown) (unknown) Pantoprazole Sodium (unit s (unknown) date) (Pantoprazole Dr 20 unknown) Mg Tablet) 20 mg PO 0600 RAND (unknown) (no (unknown) (unknown) Patient (units (unkno wn) date) Disposition: unknown) Admitted As Inpatient (unknown) (no (unknown) (unknown) Patient History (units (unknown) date) unknown) (unknown) (no (unknown) (unknown) Patient appears in (units (unknown) date) moderate distress. unknown) Patient is confused has slightly slurred (unknown) (no (unknown) (unknown) Patient denies (units (unknown) date) pain, no shortness unknown) of breath, no GI or urinary symptoms. He is (unknown) (no (unknown) (unknown) Patient had (units (un known) date) Solu-Medrol unknown) methylprednisolone for pretreatment for CT, he had (unknown) (no (unknown) (unknown) Patient was being (units (unknown) date) evaluated by 1 unknown) facility, they asked for repeat EKG for QTC (unknown) (no (unknown) (unknown) Patient: (units (unkno wn) date) DemetriusOctavio Glenny MR#: unknown) M00 (unknown) (no (unknown) (unknown) Phenobarbital (units ( unknown) date) (Phenobarbital 65 unknown) Mg/Ml Vial) 260 mg IV NOW ONE (unknown) (no (unknown) (unknown) Plt Count (150-400) (unit s (unknown) date) X103/uL unknown) (unknown) (no (unknown) (unknown) Plt Count 296 (units ( unknown) date) (150-400) X103/uL unknown) (unknown) (no (unknown) (unknown) Point of Care (units ( unknown) date) Testing unknown) (unknown) (no (unknown) (unknown) Positive Nexus (units (unknown) date) criteria, there is unknown) no midline line tenderness, distracting (unknown) (no (unknown) (unknown) Potassium (3.4-5.1) (unit s (unknown) date) mmol/L unknown) (unknown) (no (unknown) (unknown) Potassium 3.9 (units ( unknown) date) (3.4-5.1) mmol/L unknown) (unknown) (no (unknown) (unknown) Propranolol HCl (units (unknown) date) (Propranolol 10 Mg unknown) Tablet) 20 mg PO BID RAND (unknown) (no (unknown) (unknown) Pulse Oximetry 92 (units (unknown) date) unknown) (unknown) (no (unknown) (unknown) Pulse Oximetry 94 (units (unknown) date) 94 unknown) (unknown) (no (unknown) (unknown) Pulse Oximetry 94 (units (unknown) date) 95 unknown) (unknown) (no (unknown) (unknown) Pulse Oximetry 94 (units (unknown) date) unknown) (unknown) (no (unknown) (unknown) Pulse Oximetry 95 (units (unknown) date) unknown) (unknown) (no (unknown) (unknown) Pulse Oximetry 96 (units (unknown) date) 94 unknown) (unknown) (no (unknown) (unknown) Pulse Oximetry 96 (units (unknown) date) 95 unknown) (unknown) (no (unknown) (unknown) Pulse Oximetry 96 (units (unknown) date) 96 unknown) (unknown) (no (unknown) (unknown) Pulse Oximetry 96 (units (unknown) date) unknown) (unknown) (no (unknown) (unknown) Pulse Oximetry 99 (units (unknown) date) 01/14/23 10:22 unknown) (unknown) (no (unknown) (unknown) Pulse Rate 101 H (units (unknown) date) unknown) (unknown) (no (unknown) (unknown) Pulse Rate 156 H 89 (unit s (unknown) date) unknown) (unknown) (no (unknown) (unknown) Pulse Rate 156 H (units (unknown) date) unknown) (unknown) (no (unknown) (unknown) Pulse Rate 60 (units ( unknown) date) unknown) (unknown) (no (unknown) (unknown) Pulse Rate 69 78 (units (unknown) date) unknown) (unknown) (no (unknown) (unknown) Pulse Rate 71 (units ( unknown) date) unknown) (unknown) (no (unknown) (unknown) Pulse Rate 74 78 (units (unknown) date) unknown) (unknown) (no (unknown) (unknown) Pulse Rate 74 (units ( unknown) date) unknown) (unknown) (no (unknown) (unknown) Pulse Rate 75 85 (units (unknown) date) unknown) (unknown) (no (unknown) (unknown) Pulse Rate 77 (units ( unknown) date) unknown) (unknown) (no (unknown) (unknown) Pulse Rate 78 168 H (unit s (unknown) date) unknown) (unknown) (no (unknown) (unknown) Pulse Rate 80 (units ( unknown) date) unknown) (unknown) (no (unknown) (unknown) Pulse Rate 81 77 (units (unknown) date) unknown) (unknown) (no (unknown) (unknown) Pulse Rate 93 H 78 (units (unknown) date) unknown) (unknown) (no (unknown) (unknown) Pulse Rate 94 H 74 (units (unknown) date) unknown) (unknown) (no (unknown) (unknown) Pulse Rate 95 H (units (unknown) date) 01/14/23 10:22 unknown) (unknown) (no (unknown) (unknown) RBC (4.5-5.9) (units ( unknown) date) X106/uL unknown) (unknown) (no (unknown) (unknown) RBC 3.80 L (units (unk nown) date) (4.5-5.9) X106/uL unknown) (unknown) (no (unknown) (unknown) RDW (11.6-14.8) % (units (unknown) date) unknown) (unknown) (no (unknown) (unknown) RDW 13.2 (units (unkno wn) date) (11.6-14.8) % unknown) (unknown) (no (unknown) (unknown) RESP: Chest is (units (unknown) date) nontender and has unknown) symmetric movement, no ecchymosis, breath (unknown) (no (unknown) (unknown) Related Data (units (u nknown) date) unknown) (unknown) (no (unknown) (unknown) Respiratory Rate 0 (units (unknown) date) L unknown) (unknown) (no (unknown) (unknown) Respiratory Rate 10 (unit s (unknown) date) L unknown) (unknown) (no (unknown) (unknown) Respiratory Rate 11 (unit s (unknown) date) L unknown) (unknown) (no (unknown) (unknown) Respiratory Rate 13 (unit s (unknown) date) 13 unknown) (unknown) (no (unknown) (unknown) Respiratory Rate 13 (unit s (unknown) date) unknown) (unknown) (no (unknown) (unknown) Respiratory Rate 14 (unit s (unknown) date) 14 unknown) (unknown) (no (unknown) (unknown) Respiratory Rate 14 (unit s (unknown) date) 18 unknown) (unknown) (no (unknown) (unknown) Respiratory Rate 15 (unit s (unknown) date) 14 unknown) (unknown) (no (unknown) (unknown) Respiratory Rate 15 (unit s (unknown) date) 19 unknown) (unknown) (no (unknown) (unknown) Respiratory Rate 15 (unit s (unknown) date) unknown) (unknown) (no (unknown) (unknown) Respiratory Rate 16 (unit s (unknown) date) 19 unknown) (unknown) (no (unknown) (unknown) Respiratory Rate 16 (unit s (unknown) date) unknown) (unknown) (no (unknown) (unknown) Respiratory Rate 18 (unit s (unknown) date) 01/14/23 10:22 unknown) (unknown) (no (unknown) (unknown) Respiratory Rate 18 (unit s (unknown) date) 20 unknown) (unknown) (no (unknown) (unknown) Respiratory Rate 23 (unit s (unknown) date) unknown) (unknown) (no (unknown) (unknown) Respiratory Rate 24 (unit s (unknown) date) 17 unknown) (unknown) (no (unknown) (unknown) Review of Systems (units (unknown) date) unknown) (unknown) (no (unknown) (unknown) SARS-CoV-2 (PCR) (units (unknown) date) (Negative) unknown) (unknown) (no (unknown) (unknown) SARS-CoV-2 (PCR) (units (unknown) date) Negative (Negative) unknown) (unknown) (no (unknown) (unknown) RAND; Protocol (units ( unknown) date) unknown) (unknown) (no (unknown) (unknown) SKIN: Patient has a (unit s (unknown) date) small 2 cm burn on unknown) his right forearm that has blistered and (unknown) (no (unknown) (unknown) Signed By: (units (unk nown) date) unknown) (unknown) (no (unknown) (unknown) Smoking Status: (units (unknown) date) Never smoker unknown) (unknown) (no (unknown) (unknown) Social History (units (unknown) date) (Reviewed 04/13/20 @ unknown) 20:09 by Derick Crandall MD) (unknown) (no (unknown) (unknown) Sodium (137-145) (units (unknown) date) mmol/L unknown) (unknown) (no (unknown) (unknown) Sodium 140 (units (unk nown) date) (137-145) mmol/L unknown) (unknown) (no (unknown) (unknown) Sodium Chloride (units (unknown) date) (Normal Saline 0.9%) unknown) 1,000 mls @ 100 mls/hr IV CONT RAND (unknown) (no (unknown) (unknown) Solostar U-100 (units (unknown) date) Insulin) unknown) (unknown) (no (unknown) (unknown) Source: patient, (units (unknown) date) EMS, RN notes unknown) reviewed and old records reviewed (unknown) (no (unknown) (unknown) Stated Complaint: (units (unknown) date) Trauma unknown) (unknown) (no (unknown) (unknown) Stop: 01/14/23 (units (unknown) date) 10:27 unknown) (unknown) (no (unknown) (unknown) Stop: 01/14/23 (units (unknown) date) 10:29 unknown) (unknown) (no (unknown) (unknown) Stop: 01/14/23 (units (unknown) date) 10:58 unknown) (unknown) (no (unknown) (unknown) Stop: 01/14/23 (units (unknown) date) 13:43 unknown) (unknown) (no (unknown) (unknown) Stop: 01/14/23 (units (unknown) date) 14:19 unknown) (unknown) (no (unknown) (unknown) Stop: 01/14/23 (units (unknown) date) 17:53 unknown) (unknown) (no (unknown) (unknown) Stop: 01/14/23 (units (unknown) date) 18:30 unknown) (unknown) (no (unknown) (unknown) Stop: 01/14/23 (units (unknown) date) 19:17 unknown) (unknown) (no (unknown) (unknown) Stop: 01/14/23 (units (unknown) date) 19:50 unknown) (unknown) (no (unknown) (unknown) Stop: 01/14/23 (units (unknown) date) 22:11 unknown) (unknown) (no (unknown) (unknown) Stop: 01/14/23 (units (unknown) date) 22:39 unknown) (unknown) (no (unknown) (unknown) Stop: 01/18/23 (units (unknown) date) 09:01 unknown) (unknown) (no (unknown) (unknown) Substance Use Type: (unit s (unknown) date) does not use unknown) (unknown) (no (unknown) (unknown) Suicidal ideation, (units (unknown) date) Alcohol abuse, unknown) Facial laceration, Encephalopathy, Atrial (unknown) (no (unknown) (unknown) Syringe) 0.5 ml IM (units (unknown) date) .ONCE ONE unknown) (unknown) (no (unknown) (unknown) Tamsulosin HCl (units (unknown) date) (Tamsulosin 0.4 Mg unknown) Capsule) 0.4 mg PO DAILY RAND (unknown) (no (unknown) (unknown) Temperature 97.4 F (units (unknown) date) L 01/14/23 10:22 unknown) (unknown) (no (unknown) (unknown) They also note that (unit s (unknown) date) they were called out unknown) for a wellness check yesterday they (unknown) (no (unknown) (unknown) Thiamine HCl (units (u nknown) date) (Thiamine 100 Mg unknown) Tablet) 100 mg PO DAILY RAND (unknown) (no (unknown) (unknown) Thiamine HCl 100 (units (unknown) date) mg/ Sodium unknown) (Chloride) 101 mls @ 404 mls/hr IV NOW ONE (unknown) (no (unknown) (unknown) This is a (units (unkno wn) date) 53-year-old male who unknown) appears intoxicated, he does have scabbing with a (unknown) (no (unknown) (unknown) This is a (units (unkn own) date) 53-year-old male unknown) with known history of alcohol abuse, insulin (unknown) (no (unknown) (unknown) Time Seen by (units (u nknown) date) Provider: 01/14/23 unknown) 10:26 (unknown) (no (unknown) (unknown) To sleep sinus (units (unknown) date) rhythm rate of 72 [place] unknown) 130 QRS of 98 QTC [address]. No acute ST (unknown) (no (unknown) (unknown) Total Bilirubin (units (unknown) date) (0.2-1.3) mg/dL unknown) (unknown) (no (unknown) (unknown) Total Bilirubin 0.4 (unit s (unknown) date) (0.2-1.3) mg/dL unknown) (unknown) (no (unknown) (unknown) Total Protein (units ( unknown) date) (6.3-8.2) g/dL unknown) (unknown) (no (unknown) (unknown) Total Protein 7.2 (units (unknown) date) (6.3-8.2) g/dL unknown) (unknown) (no (unknown) (unknown) Tylenol her (units (un known) date) headache and unknown) phenobarb 260 for alcohol withdrawal patient has not (unknown) (no (unknown) (unknown) U Benzodiazepines (units (unknown) date) Scrn (Negative) unknown) (unknown) (no (unknown) (unknown) U Benzodiazepines (units (unknown) date) Scrn Positive H unknown) (Negative) (unknown) (no (unknown) (unknown) U Marijuana (THC) (units (unknown) date) Screen (Negative) unknown) (unknown) (no (unknown) (unknown) U Marijuana (THC) (units (unknown) date) Screen Negative unknown) (Negative) (unknown) (no (unknown) (unknown) U Methamphetamines (units (unknown) date) Scrn (Negative) unknown) (unknown) (no (unknown) (unknown) U Methamphetamines (units (unknown) date) Scrn Negative unknown) (Negative) (unknown) (no (unknown) (unknown) U Opiates 300ng/mL (units (unknown) date) cut (Negative) unknown) (unknown) (no (unknown) (unknown) U Opiates 300ng/mL (units (unknown) date) cut Positive H unknown) (Negative) (unknown) (no (unknown) (unknown) U Tricyclic (units (un known) date) Antidepress unknown) (Negative) (unknown) (no (unknown) (unknown) U Tricyclic (units (un known) date) Antidepress Negative unknown) (Negative) (unknown) (no (unknown) (unknown) Ur Amphetamines (units (unknown) date) Screen (Negative) unknown) (unknown) (no (unknown) (unknown) Ur Amphetamines (units (unknown) date) Screen Negative unknown) (Negative) (unknown) (no (unknown) (unknown) Ur Barbiturates (units (unknown) date) Screen (Negative) unknown) (unknown) (no (unknown) (unknown) Ur Barbiturates (units (unknown) date) Screen Negative unknown) (Negative) (unknown) (no (unknown) (unknown) Ur Culture (units (unk nown) date) Indicated? Cult not unknown) indicated (unknown) (no (unknown) (unknown) Ur Culture (units (unk nown) date) Indicated? unknown) (unknown) (no (unknown) (unknown) Ur Leukocyte (units (u nknown) date) Esterase (NEGATIVE) unknown) (unknown) (no (unknown) (unknown) Ur Leukocyte (units (u nknown) date) Esterase Negative unknown) (NEGATIVE) (unknown) (no (unknown) (unknown) Ur MDMA Scrn (units (u nknown) date) (Ecstasy) (Negative) unknown) (unknown) (no (unknown) (unknown) Ur MDMA Scrn (units (u nknown) date) (Ecstasy) Negative unknown) (Negative) (unknown) (no (unknown) (unknown) Ur Oxycodone Screen (unit s (unknown) date) (Negative) unknown) (unknown) (no (unknown) (unknown) Ur Oxycodone Screen (unit s (unknown) date) Negative (Negative) unknown) (unknown) (no (unknown) (unknown) Ur Phencyclidine (units (unknown) date) Scrn (Negative) unknown) (unknown) (no (unknown) (unknown) Ur Phencyclidine (units (unknown) date) Scrn Negative unknown) (Negative) (unknown) (no (unknown) (unknown) Ur Specific [place] (unit s (unknown) date) (1.000-1.035) unknown) (unknown) (no (unknown) (unknown) Ur Specific [place] (unit s (unknown) date) 1.010 (1.000-1.035) unknown) (unknown) (no (unknown) (unknown) Urine Appearance (units (unknown) date) Clear unknown) (unknown) (no (unknown) (unknown) Urine Appearance (units (unknown) date) unknown) (unknown) (no (unknown) (unknown) Urine Bacteria (units (unknown) date) (None) unknown) (unknown) (no (unknown) (unknown) Urine Bacteria None (unit s (unknown) date) seen (None) unknown) (unknown) (no (unknown) (unknown) Urine Bilirubin (units (unknown) date) (NEGATIVE) unknown) (unknown) (no (unknown) (unknown) Urine Bilirubin (units (unknown) date) Negative (NEGATIVE) unknown) (unknown) (no (unknown) (unknown) Urine Cocaine (units ( unknown) date) Screen (Negative) unknown) (unknown) (no (unknown) (unknown) Urine Cocaine (units ( unknown) date) Screen Negative unknown) (Negative) (unknown) (no (unknown) (unknown) Urine Color Yellow (units (unknown) date) unknown) (unknown) (no (unknown) (unknown) Urine Color (units (un known) date) unknown) (unknown) (no (unknown) (unknown) Urine Glucose (UA) (units (unknown) date) (Negative) g/dL unknown) (unknown) (no (unknown) (unknown) Urine Glucose (UA) (units (unknown) date) 2+ H (Negative) g/dL unknown) (unknown) (no (unknown) (unknown) Urine Ketones (units ( unknown) date) (NEGATIVE) unknown) (unknown) (no (unknown) (unknown) Urine Ketones (units ( unknown) date) Negative (NEGATIVE) unknown) (unknown) (no (unknown) (unknown) Urine Methadone (units (unknown) date) Screen (Negative) unknown) (unknown) (no (unknown) (unknown) Urine Methadone (units (unknown) date) Screen Negative unknown) (Negative) (unknown) (no (unknown) (unknown) Urine Nitrate (units ( unknown) date) (Negative) unknown) (unknown) (no (unknown) (unknown) Urine Nitrate (units ( unknown) date) Negative (Negative) unknown) (unknown) (no (unknown) (unknown) Urine Occult Blood (units (unknown) date) (Negative) unknown) (unknown) (no (unknown) (unknown) Urine Occult Blood (units (unknown) date) Negative (Negative) unknown) (unknown) (no (unknown) (unknown) Urine Protein (units ( unknown) date) (Negative) unknown) (unknown) (no (unknown) (unknown) Urine Protein (units ( unknown) date) Negative (Negative) unknown) (unknown) (no (unknown) (unknown) Urine RBC (0-5/HPF) (unit s (unknown) date) unknown) (unknown) (no (unknown) (unknown) Urine RBC None seen (unit s (unknown) date) (0-5/HPF) unknown) (unknown) (no (unknown) (unknown) Urine Urobilinogen (units (unknown) date) (0.2) E.U./dL unknown) (unknown) (no (unknown) (unknown) Urine Urobilinogen (units (unknown) date) 1.0 (0.2) E.U./dL unknown) (unknown) (no (unknown) (unknown) Urine WBC (0-5/HPF) (unit s (unknown) date) unknown) (unknown) (no (unknown) (unknown) Urine WBC None seen (unit s (unknown) date) (0-5/HPF) unknown) (unknown) (no (unknown) (unknown) Urine pH (4.5-8.0) (units (unknown) date) unknown) (unknown) (no (unknown) (unknown) Urine pH 6.5 (units (u nknown) date) (4.5-8.0) unknown) (unknown) (no (unknown) (unknown) Vital Signs - 8 hr (units (unknown) date) unknown) (unknown) (no (unknown) (unknown) Vital Signs (units (un known) date) unknown) (unknown) (no (unknown) (unknown) Vital signs: (units (u nknown) date) unknown) (unknown) (no (unknown) (unknown) WAS (units (unkno wn) date) unknown) (unknown) (no (unknown) (unknown) WBC (4.5-11.0) (units (unknown) date) X103/uL unknown) (unknown) (no (unknown) (unknown) WBC 4.3 L (units (unkn own) date) (4.5-11.0) X103/uL unknown) (unknown) (no (unknown) (unknown) [Embedded Image Not (unit s (unknown) date) Available] unknown) (unknown) (no (unknown) (unknown) [From BETADINE] (units (unknown) date) FEELS LIKE unknown) (unknown) (no (unknown) (unknown) [SHELLFISH DERIVED] (unit s (unknown) date) LIKE IT unknown) (unknown) (no (unknown) (unknown) a small burn on his (units (unknown) date) right forearm and he unknown) has bruising his girlfriend told medics (unknown) (no (unknown) (unknown) abdomen pelvis (units (unknown) date) shows no acute unknown) traumatic injury, remote left-sided rib fractures (unknown) (no (unknown) (unknown) alcohol intake (units (unknown) date) frequency: 0-2 unknown) drinks per day (unknown) (no (unknown) (unknown) allergy to iodine (units (unknown) date) which he did not unknown) tell us earlier. Was pretreated with (unknown) (no (unknown) (unknown) and when asked he (units (unknown) date) states he does want unknown) to kill himself when asked why he does not (unknown) (no (unknown) (unknown) answer. When asked (units (unknown) date) if he has a plan he unknown) does not give one. Medics a girlfriend (unknown) (no (unknown) (unknown) anything amiss in (units (unknown) date) the house but he had unknown) been found on the ground in the bathroom. (unknown) (no (unknown) (unknown) appears older with (units (unknown) date) healing skin unknown) underneath, warm and dry, no crepitus and (unknown) (no (unknown) (unknown) arrived. (units (unkno wn) date) unknown) (unknown) (no (unknown) (unknown) atorvastatin 40 mg (units (unknown) date) tablet 40 mg PO unknown) BEDTIME 01/14/23 01/14/23 (unknown) (no (unknown) (unknown) been tachycardic (units (unknown) date) since then, no unknown) hypertension. Patient did receive a dose of IV (unknown) (no (unknown) (unknown) chest abdomen (units ( unknown) date) pelvis there was unknown) some delay as it was found patient has reported (unknown) (no (unknown) (unknown) chest and abdomen (units (unknown) date) although it appears unknown) little bit older, and he has a burn on his (unknown) (no (unknown) (unknown) chest, right upper (units (unknown) date) abdomen and right unknown) lower abdomen. (unknown) (no (unknown) (unknown) currently voluntary (unit s (unknown) date) seeking dual unknown) treatment. (unknown) (no (unknown) (unknown) dependent diabetes (units (unknown) date) and chronic pain unknown) with a pain pump in his left abdomen. Patie (unknown) (no (unknown) (unknown) dextroamphetamine-a (unit s (unknown) date) mphetamine 20 20 mg unknown) PO BID 01/14/23 01/14/23 (unknown) (no (unknown) (unknown) do his injections (units (unknown) date) which he states are unknown) insulin. He states he has a pain pump in (unknown) (no (unknown) (unknown) drinks at least a (units (unknown) date) 5th daily, he denies unknown) tobacco or illicit. He states he did not (unknown) (no (unknown) (unknown) elevation or (units (u nknown) date) depression. unknown) (unknown) (no (unknown) (unknown) eptal hematoma, no (units (unknown) date) dental or oral unknown) injury, airway is normal and with normal (unknown) (no (unknown) (unknown) fibrillation with (units (unknown) date) RVR unknown) (unknown) (no (unknown) (unknown) found blood in a (units (unknown) date) different location unknown) but the patient was not present at that (unknown) (no (unknown) (unknown) function at (units (un known) date) baseline at 0.42 unknown) normal electrolytes glucose is 254, AST ALT alk (unknown) (no (unknown) (unknown) furosemide 20 mg (units (unknown) date) tablet 20 mg PO unknown) DAILY 01/14/23 01/14/23 (unknown) (no (unknown) (unknown) gape, trachea is (units (unknown) date) midline, TM's are unknown) normal no hemotypanum, Nares are clear, no s (unknown) (no (unknown) (unknown) ground there was (units (unknown) date) reportedly some unknown) glass at the scene and the medics state that (unknown) (no (unknown) (unknown) hematoma. CT (units (u nknown) date) C-spine shows unknown) degenerative change but no fracture. CT chest (unknown) (no (unknown) (unknown) hernia and stable (units (unknown) date) lung nodules unknown) measuring 6 mm. (unknown) (no (unknown) (unknown) his alcohol should (units (unknown) date) be around 100 around unknown) 1845. Patient does have some suicidal (unknown) (no (unknown) (unknown) his belly. He did (units (unknown) date) make statements that unknown) he wanted to kill himself to the medics (unknown) (no (unknown) (unknown) his prior injuries (units (unknown) date) with chest and unknown) abdominal bruising, with CT head, C-spine and (unknown) (no (unknown) (unknown) injury, altered (units (unknown) date) mental status, neuro unknown) deficit, positive for recent EtOH. (unknown) (no (unknown) (unknown) insulin glargine (units (unknown) date) 100 unit/mL (3 20 unknown) unit SUBCUT BEDTIME 01/14/23 01/14/23 (unknown) (no (unknown) (unknown) insulin lispro 100 (units (unknown) date) unit/mL See Rx unknown) Instructions .Route .COMPLEX 01/14/23 01/14/23 (unknown) (no (unknown) (unknown) last saw the (units (u nknown) date) patient on unknown) she noted that he bought a bottle of hard (unknown) (no (unknown) (unknown) leave. He met with (units (unknown) date) our hospital social worker as unknown) he has been otherwise medically cleared (unknown) (no (unknown) (unknown) liquor at that time (unit s (unknown) date) and there was only unknown) about a few mL left today when EMS (unknown) (no (unknown) (unknown) lorazepam when he (units (unknown) date) initially came as unknown) patient was a little agitated and trying to (unknown) (no (unknown) (unknown) losartan 100 mg (units (unknown) date) tablet 100 mg PO unknown) DAILY 01/14/23 01/14/23 (unknown) (no (unknown) (unknown) mL) subcutaneous (units (unknown) date) pen (Lantus unknown) (unknown) (no (unknown) (unknown) medications or (units (unknown) date) prolong his QT. He unknown) has a prior in the past and had a 449 QTC. (unknown) (no (unknown) (unknown) mg tablet (units (unkn own) date) unknown) (unknown) (no (unknown) (unknown) moving all his (units (unknown) date) extremities well. Is unknown) conversant but confused. Patient states he (unknown) (no (unknown) (unknown) negative. Patient (units (unknown) date) was CT scan unknown) secondary to intoxication unclear mechanism of (unknown) (no (unknown) (unknown) normal color and (units (unknown) date) temperature, normal unknown) range of motion of extremities with normal (unknown) (no (unknown) (unknown) nt states he does (units (unknown) date) not know who he is unknown) aware he is. He is able to give his name (unknown) (no (unknown) (unknown) obtained is unclear (unit s (unknown) date) what exactly unknown) occurred. Patient was called out as a modified (unknown) (no (unknown) (unknown) occlusion, No bony (units (unknown) date) tenderness unknown) (unknown) (no (unknown) (unknown) pelvic rock is (units (unknown) date) negative, patient unknown) has device in the left lateral abdomen. (unknown) (no (unknown) (unknown) penicillin G (units (u nknown) date) [PENICILLIN G] unknown) Allergy Unknown LEFT EAR Verified 07/27/18 10:10 (unknown) (no (unknown) (unknown) phos are [id number] and (units (unknown) date) 146 with a negative unknown) bilirubin and lipase of 109. EKG shows a (unknown) (no (unknown) (unknown) povidone-iodine (units (unknown) date) Allergy Unknown unknown) 'SKIN Verified 07/27/18 10:10 (unknown) (no (unknown) (unknown) propranolol 20 mg (units (unknown) date) tablet 20 mg PO BID unknown) 01/14/23 01/14/23 (unknown) (no (unknown) (unknown) redirectable (units (u nknown) date) although he keeps unknown) saying he wants to get out of the bed. He has (unknown) (no (unknown) (unknown) right forearm that (units (unknown) date) also appears little unknown) bit older. Patient was found on the (unknown) (no (unknown) (unknown) seeking placement (units (unknown) date) but currently unknown) voluntary. (unknown) (no (unknown) (unknown) shellfish derived (units (unknown) date) Allergy Unknown unknown) 'SKIN FELT Verified 07/27/18 10:10 (unknown) (no (unknown) (unknown) sinus rhythm no (units (unknown) date) acute ST changes. unknown) Initial chest x-ray and pelvic x-ray is (unknown) (no (unknown) (unknown) soap [From (units (unk nown) date) BETADINE] Allergy unknown) Unknown 'SKIN Verified 07/27/18 10:10 (unknown) (no (unknown) (unknown) soft tissue injury (units (unknown) date) over the super to unknown) right orbit/right frontal bone with a small (unknown) (no (unknown) (unknown) some blood at the (units (unknown) date) scene in a different unknown) location. Patient had labs, imaging (unknown) (no (unknown) (unknown) some broken glass, (units (unknown) date) medics state the unknown) glass was cleaned up they did not see (unknown) (no (unknown) (unknown) sounds are normal (units (unknown) date) no crackles, wheezes unknown) or rales (unknown) (no (unknown) (unknown) speech appears (units (unknown) date) intoxicated but is unknown) conversant. (unknown) (no (unknown) (unknown) subcutaneous pen (units (unknown) date) (Humalog KwikPen unknown) (unknown) (no (unknown) (unknown) superficial lack of (unit s (unknown) date) the right forehead, unknown) he has some bruising of his anterior (unknown) (no (unknown) (unknown) tamsulosin 0.4 mg (units (unknown) date) capsule 0.4 mg PO unknown) DAILY 01/14/23 01/14/23 (unknown) (no (unknown) (unknown) tendon exam, 2+ (units (unknown) date) pulses in all four unknown) extremities (unknown) (no (unknown) (unknown) that is bruising on (unit s (unknown) date) his left abdomen is unknown) from injections but onto his chest and (unknown) (no (unknown) (unknown) they wanted less (units (unknown) date) than 450 repeat is unknown) 497. Patient had Benadryl but no other (unknown) (no (unknown) (unknown) they were there the (unit s (unknown) date) day before patient unknown) was not present at home but there was (unknown) (no (unknown) (unknown) thoughts no clear (units (unknown) date) active clot unknown) described to myself. That was social work (unknown) (no (unknown) (unknown) time. Patient does (units (unknown) date) not recall what unknown) trauma occurred. The somewhat repetitive. (unknown) (no (unknown) (unknown) trauma. (units (unkno wn) date) unknown) (unknown) (no (unknown) (unknown) upper abdomen she (units (unknown) date) is unsure. Patient unknown) was found at home in the bathroom with (unknown) (no (unknown) (unknown) what appears to be (units (unknown) date) scabbed superficial unknown) laceration over his right forehead he has (unknown) (no (unknown) (unknown) when he is (units (unk nown) date) registered. Patient unknown) is confused but follows commands he is (unknown) (no (unknown) (unknown) with remote left (units (unknown) date) scapular and L1-L2 unknown) transverse process fractures, small hiatal (unknown) (no (unknown) (unknown) without decubitus. (units (unknown) date) Patient has unknown) ecchymosis that is about 4 cm on his anterior Result panel 240 (unknown) (no date) (unknown) (unknown) 177 pg/ml (unkn own) (unknown) (no date) (unknown) (unknown) 177 pg/ml (unkn own) Result panel 241 (unknown) (no (unknown) (unknown) (no value) (units (unk nown) date) unknown) (unknown) (no (unknown) (unknown) (U-100) Insulin) (units (unknown) date) unknown) (unknown) (no (unknown) (unknown) (past 8 hours): (units (unknown) date) unknown) (unknown) (no (unknown) (unknown) -lives alone, (units ( unknown) date) permanently unknown) disabled (unknown) (no (unknown) (unknown) [id number] (units (unkno wn) date) unknown) (unknown) (no (unknown) (unknown) 01/14/23 01/14/23 (units (unknown) date) 01/14/23 unknown) (unknown) (no (unknown) (unknown) 01/14/23 10:45 (units (unknown) date) unknown) (unknown) (no (unknown) (unknown) 01/14/23 (units (unkno wn) date) unknown) (unknown) (no (unknown) (unknown) 10:45 10:45 10:45 (units (unknown) date) unknown) (unknown) (no (unknown) (unknown) 10:45 11:23 13:48 (units (unknown) date) unknown) (unknown) (no (unknown) (unknown) 14:09 14:09 15:25 (units (unknown) date) unknown) (unknown) (no (unknown) (unknown) 15:00 01/14/23 (units (unknown) date) unknown) (unknown) (no (unknown) (unknown) 15:02 01/14/23 (units (unknown) date) unknown) (unknown) (no (unknown) (unknown) 15:02 (units (unkno wn) date) unknown) (unknown) (no (unknown) (unknown) 15:30 01/14/23 (units (unknown) date) unknown) (unknown) (no (unknown) (unknown) 16:00 01/14/23 (units (unknown) date) unknown) (unknown) (no (unknown) (unknown) 16:00 (units (unkno wn) date) unknown) (unknown) (no (unknown) (unknown) 16:30 01/14/23 (units (unknown) date) unknown) (unknown) (no (unknown) (unknown) 17:00 01/14/23 (units (unknown) date) unknown) (unknown) (no (unknown) (unknown) 17:00 (units (unkno wn) date) unknown) (unknown) (no (unknown) (unknown) 17:30 01/14/23 (units (unknown) date) unknown) (unknown) (no (unknown) (unknown) 17:30 (units (unkno wn) date) unknown) (unknown) (no (unknown) (unknown) 18:00 01/14/23 (units (unknown) date) unknown) (unknown) (no (unknown) (unknown) 18:15 (units (unkno wn) date) unknown) (unknown) (no (unknown) (unknown) 18:30 01/14/23 (units (unknown) date) unknown) (unknown) (no (unknown) (unknown) 18:30 (units (unkno wn) date) unknown) (unknown) (no (unknown) (unknown) 19:00 01/14/23 (units (unknown) date) unknown) (unknown) (no (unknown) (unknown) 19:15 01/14/23 (units (unknown) date) unknown) (unknown) (no (unknown) (unknown) 19:15 (units (unkno wn) date) unknown) (unknown) (no (unknown) (unknown) 19:20 01/14/23 (units (unknown) date) unknown) (unknown) (no (unknown) (unknown) 19:20 (units (unkno wn) date) unknown) (unknown) (no (unknown) (unknown) 19:25 01/14/23 (units (unknown) date) unknown) (unknown) (no (unknown) (unknown) 19:30 01/14/23 (units (unknown) date) unknown) (unknown) (no (unknown) (unknown) 19:30 (units (unkno wn) date) unknown) (unknown) (no (unknown) (unknown) 19:34 01/14/23 (units (unknown) date) unknown) (unknown) (no (unknown) (unknown) 19:35 01/14/23 (units (unknown) date) unknown) (unknown) (no (unknown) (unknown) 19:35 (units (unkno wn) date) unknown) (unknown) (no (unknown) (unknown) 19:40 01/14/23 (units (unknown) date) unknown) (unknown) (no (unknown) (unknown) 19:40 (units (unkno wn) date) unknown) (unknown) (no (unknown) (unknown) 19:45 01/14/23 (units (unknown) date) unknown) (unknown) (no (unknown) (unknown) 19:50 01/14/23 (units (unknown) date) unknown) (unknown) (no (unknown) (unknown) 19:50 (units (unkno wn) date) unknown) (unknown) (no (unknown) (unknown) 19:55 01/14/23 (units (unknown) date) unknown) (unknown) (no (unknown) (unknown) 19:55 (units (unkno wn) date) unknown) (unknown) (no (unknown) (unknown) 20:00 01/14/23 (units (unknown) date) unknown) (unknown) (no (unknown) (unknown) 20:05 01/14/23 (units (unknown) date) unknown) (unknown) (no (unknown) (unknown) 20:05 (units (unkno wn) date) unknown) (unknown) (no (unknown) (unknown) 20:30 01/14/23 (units (unknown) date) unknown) (unknown) (no (unknown) (unknown) 20:30 (units (unkno wn) date) unknown) (unknown) (no (unknown) (unknown) 21:00 01/14/23 (units (unknown) date) unknown) (unknown) (no (unknown) (unknown) 21:30 01/14/23 (units (unknown) date) unknown) (unknown) (no (unknown) (unknown) 21:30 (units (unkno wn) date) unknown) (unknown) (no (unknown) (unknown) 22:00 01/14/23 (units (unknown) date) unknown) (unknown) (no (unknown) (unknown) 22:25 (units (unkno wn) date) unknown) (unknown) (no (unknown) (unknown) AGE 12YR (units (unkno wn) date) unknown) (unknown) (no (unknown) (unknown) ALT 88 H (units (unkno wn) date) unknown) (unknown) (no (unknown) (unknown) ALT (units (unkno wn) date) unknown) (unknown) (no (unknown) (unknown) APTT 34 (units (unkno wn) date) unknown) (unknown) (no (unknown) (unknown) APTT (units (unkno wn) date) unknown) (unknown) (no (unknown) (unknown) AST 87 H (units (unkno wn) date) unknown) (unknown) (no (unknown) (unknown) AST (units (unkno wn) date) unknown) (unknown) (no (unknown) (unknown) Age/Sex: 53 / M (units (unknown) date) unknown) (unknown) (no (unknown) (unknown) Albumin 4.0 (units (un known) date) unknown) (unknown) (no (unknown) (unknown) Albumin (units (unkno wn) date) unknown) (unknown) (no (unknown) (unknown) Albumin/Globulin (units (unknown) date) Ratio 1.3 unknown) (unknown) (no (unknown) (unknown) Albumin/Globulin (units (unknown) date) Ratio unknown) (unknown) (no (unknown) (unknown) Alcohol (units (unkno wn) date) intoxication unknown) (unknown) (no (unknown) (unknown) Alkaline (units (unkno wn) date) Phosphatase 146 H unknown) (unknown) (no (unknown) (unknown) Alkaline (units (unkno wn) date) Phosphatase unknown) (unknown) (no (unknown) (unknown) Allergies (units (unkn own) date) unknown) (unknown) (no (unknown) (unknown) Allergy/AdvReac (units (unknown) date) Type Severity unknown) Reaction Status Date / Time (unknown) (no (unknown) (unknown) Antibody Screen (units (unknown) date) Negative unknown) (unknown) (no (unknown) (unknown) Antibody Screen (units (unknown) date) unknown) (unknown) (no (unknown) (unknown) Assessment + Plan (units (unknown) date) narrative: unknown) (unknown) (no (unknown) (unknown) Assessment + Plan (units (unknown) date) unknown) (unknown) (no (unknown) (unknown) BPH (benign (units (un known) date) prostatic unknown) hyperplasia) (unknown) (no (unknown) (unknown) BUN 8 L (units (unkno wn) date) unknown) (unknown) (no (unknown) (unknown) BUN (units (unkno wn) date) unknown) (unknown) (no (unknown) (unknown) BUN/Creatinine (units (unknown) date) Ratio 19.0 unknown) (unknown) (no (unknown) (unknown) BUN/Creatinine (units (unknown) date) Ratio unknown) (unknown) (no (unknown) (unknown) BURNING' (units (unkno wn) date) unknown) (unknown) (no (unknown) (unknown) Baso # (Auto) 100 (units (unknown) date) unknown) (unknown) (no (unknown) (unknown) Baso # (Auto) (units ( unknown) date) unknown) (unknown) (no (unknown) (unknown) Baso % (Auto) 1.4 (units (unknown) date) unknown) (unknown) (no (unknown) (unknown) Baso % (Auto) (units ( unknown) date) unknown) (unknown) (no (unknown) (unknown) Blood Pressure (units (unknown) date) 106/52 L 113/56 L unknown) (unknown) (no (unknown) (unknown) Blood Pressure (units (unknown) date) 121/73 unknown) (unknown) (no (unknown) (unknown) Blood Pressure (units (unknown) date) 129/80 138/76 unknown) (unknown) (no (unknown) (unknown) Blood Pressure (units (unknown) date) 130/82 162/103 H unknown) (unknown) (no (unknown) (unknown) Blood Pressure (units (unknown) date) 132/96 H 169/93 H unknown) (unknown) (no (unknown) (unknown) Blood Pressure (units (unknown) date) 137/72 unknown) (unknown) (no (unknown) (unknown) Blood Pressure (units (unknown) date) 137/85 unknown) (unknown) (no (unknown) (unknown) Blood Pressure (units (unknown) date) 138/102 H 130/92 H unknown) (unknown) (no (unknown) (unknown) Blood Pressure (units (unknown) date) 142/89 H unknown) (unknown) (no (unknown) (unknown) Blood Pressure (units (unknown) date) 143/94 H 141/93 H unknown) (unknown) (no (unknown) (unknown) Blood Pressure (units (unknown) date) 148/82 H unknown) (unknown) (no (unknown) (unknown) Blood Pressure (units (unknown) date) 155/95 H 124/84 unknown) (unknown) (no (unknown) (unknown) Blood Pressure (units (unknown) date) 158/95 H unknown) (unknown) (no (unknown) (unknown) Blood Pressure (units (unknown) date) 172/88 H unknown) (unknown) (no (unknown) (unknown) Blood Pressure (units (unknown) date) 175/108 H unknown) (unknown) (no (unknown) (unknown) Blood Pressure (units (unknown) date) unknown) (unknown) (no (unknown) (unknown) Blood Type O (units (u nknown) date) Positive unknown) (unknown) (no (unknown) (unknown) Blood Type (units (unk nown) date) unknown) (unknown) (no (unknown) (unknown) Calcium 8.5 (units (un known) date) unknown) (unknown) (no (unknown) (unknown) Calcium (units (unkno wn) date) unknown) (unknown) (no (unknown) (unknown) Carbon Dioxide 30 (units (unknown) date) unknown) (unknown) (no (unknown) (unknown) Carbon Dioxide (units (unknown) date) unknown) (unknown) (no (unknown) (unknown) Chief complaint: (units (unknown) date) Trauma unknown) (unknown) (no (unknown) (unknown) Chloride 100 (units (u nknown) date) unknown) (unknown) (no (unknown) (unknown) Chloride (units (unkno wn) date) unknown) (unknown) (no (unknown) (unknown) Chronic low back (units (unknown) date) pain unknown) (unknown) (no (unknown) (unknown) Comment: (units (unkno wn) date) unknown) (unknown) (no (unknown) (unknown) Congestive heart (units (unknown) date) failure unknown) (unknown) (no (unknown) (unknown) Creatinine 0.42 L (units (unknown) date) unknown) (unknown) (no (unknown) (unknown) Creatinine (units (unk nown) date) unknown) (unknown) (no (unknown) (unknown) : 1970 (units (unknown) date) Acct:[id number] unknown) (unknown) (no (unknown) (unknown) Date Patient Seen: (units (unknown) date) 01/14/23 unknown) (unknown) (no (unknown) (unknown) Date of Service: (units (unknown) date) 01/14/23 unknown) (unknown) (no (unknown) (unknown) Drinks a 5th of (units (unknown) date) vodka daily unknown) (unknown) (no (unknown) (unknown) Eos # (Auto) 100 (units (unknown) date) unknown) (unknown) (no (unknown) (unknown) Eos # (Auto) (units (u nknown) date) unknown) (unknown) (no (unknown) (unknown) Eos % (Auto) 2.2 (units (unknown) date) unknown) (unknown) (no (unknown) (unknown) Eos % (Auto) (units (u nknown) date) unknown) (unknown) (no (unknown) (unknown) Essential (units (unkn own) date) hypertension unknown) (unknown) (no (unknown) (unknown) Estimated GFR > 60 (units (unknown) date) unknown) (unknown) (no (unknown) (unknown) Estimated GFR (units ( unknown) date) unknown) (unknown) (no (unknown) (unknown) Ethyl Alcohol 308 (units (unknown) date) H unknown) (unknown) (no (unknown) (unknown) Ethyl Alcohol 91 H (units (unknown) date) unknown) (unknown) (no (unknown) (unknown) Ethyl Alcohol (units ( unknown) date) unknown) (unknown) (no (unknown) (unknown) Exam (units (unkno wn) date) unknown) (unknown) (no (unknown) (unknown) FEELS LIKE (units (unk nown) date) unknown) (unknown) (no (unknown) (unknown) Family History (units (unknown) date) (Updated 01/15/23 @ unknown) 02:24 by SOMMER Chairez) (unknown) (no (unknown) (unknown) Father Diabetes (units (unknown) date) mellitus unknown) (unknown) (no (unknown) (unknown) Globulin 3.2 (units (u nknown) date) unknown) (unknown) (no (unknown) (unknown) Globulin (units (unkno wn) date) unknown) (unknown) (no (unknown) (unknown) Glucose 254 H (units ( unknown) date) unknown) (unknown) (no (unknown) (unknown) Glucose (units (unkno wn) date) unknown) (unknown) (no (unknown) (unknown) HEARING (units (unkno wn) date) unknown) (unknown) (no (unknown) (unknown) HLD, BPH, (units (unkno wn) date) insulin-dependent unknown) diabetes and chronic low back pain tx with InterStim (unknown) (no (unknown) (unknown) Hct 36.9 L (units (unk nown) date) unknown) (unknown) (no (unknown) (unknown) Hct (units (unkno wn) date) unknown) (unknown) (no (unknown) (unknown) Hgb 12.3 L (units (unk nown) date) unknown) (unknown) (no (unknown) (unknown) Hgb (units (unkno wn) date) unknown) (unknown) (no (unknown) (unknown) History + Physical (units (unknown) date) Report unknown) (unknown) (no (unknown) (unknown) History of Present (units (unknown) date) Illness unknown) (unknown) (no (unknown) (unknown) History of (units (unk nown) date) shoulder surgery unknown) (unknown) (no (unknown) (unknown) History (units (unkno wn) date) unknown) (unknown) (no (unknown) (unknown) Home Medications (units (unknown) date) and Allergies unknown) (unknown) (no (unknown) (unknown) Home Medications (units (unknown) date) unknown) (unknown) (no (unknown) (unknown) Hyperlipidemia due (units (unknown) date) to type 1 diabetes unknown) mellitus (unknown) (no (unknown) (unknown) INR 1.0 (units (unkno wn) date) unknown) (unknown) (no (unknown) (unknown) INR (units (unkno wn) date) unknown) (unknown) (no (unknown) (unknown) [facility] (units (unknown) date) [address] unknown) [place] [id number] (unknown) (no (unknown) (unknown) LOSS AT (units (unkno wn) date) unknown) (unknown) (no (unknown) (unknown) Laboratory Results (units (unknown) date) - last 24 hr unknown) (unknown) (no (unknown) (unknown) Labs (units (unkno wn) date) unknown) (unknown) (no (unknown) (unknown) Labs: (units (unkno wn) date) unknown) (unknown) (no (unknown) (unknown) Lactate 2.1 1.9 (units (unknown) date) unknown) (unknown) (no (unknown) (unknown) Lactate (units (unkno wn) date) unknown) (unknown) (no (unknown) (unknown) Lipase 109 (units (unk nown) date) unknown) (unknown) (no (unknown) (unknown) Lipase (units (unkno wn) date) unknown) (unknown) (no (unknown) (unknown) Lymph # (Auto) (units (unknown) date) 1700 unknown) (unknown) (no (unknown) (unknown) Lymph # (Auto) (units (unknown) date) unknown) (unknown) (no (unknown) (unknown) Lymph % (Auto) (units (unknown) date) 39.1 unknown) (unknown) (no (unknown) (unknown) Lymph % (Auto) (units (unknown) date) unknown) (unknown) (no (unknown) (unknown) MCH 32.5 (units (unkno wn) date) unknown) (unknown) (no (unknown) (unknown) MCH (units (unkno wn) date) unknown) (unknown) (no (unknown) (unknown) MCHC 33.5 (units (unkn own) date) unknown) (unknown) (no (unknown) (unknown) MCHC (units (unkno wn) date) unknown) (unknown) (no (unknown) (unknown) MCV 97.1 (units (unkno wn) date) unknown) (unknown) (no (unknown) (unknown) MCV (units (unkno wn) date) unknown) (unknown) (no (unknown) (unknown) Medical History (units (unknown) date) (Reviewed 01/15/23 unknown) @ 02:22 by Genesis Dunn [facility]) (unknown) (no (unknown) (unknown) Medication (units (unk nown) date) Instructions unknown) Recorded Confirmed Type (unknown) (no (unknown) (unknown) Meds (units (unkno wn) date) unknown) (unknown) (no (unknown) (unknown) Octavio Romo is a (units (unknown) date) 53-year-old male unknown) with known history of alcohol abuse, HTN, (unknown) (no (unknown) (unknown) Micro UA Comment (units (unknown) date) Microscopic normal unknown) (unknown) (no (unknown) (unknown) Micro UA Comment (units (unknown) date) unknown) (unknown) (no (unknown) (unknown) Pender # (Auto) 600 (units (unknown) date) unknown) (unknown) (no (unknown) (unknown) Pender # (Auto) (units ( unknown) date) unknown) (unknown) (no (unknown) (unknown) Pender % (Auto) 14.9 (units (unknown) date) H unknown) (unknown) (no (unknown) (unknown) Pender % (Auto) (units ( unknown) date) unknown) (unknown) (no (unknown) (unknown) Mother (units (unknown) date) Diabetes mellitus unknown) (unknown) (no (unknown) (unknown) Multiple falls (units (unknown) date) unknown) (unknown) (no (unknown) (unknown) Narrative: (units (unk nown) date) unknown) (unknown) (no (unknown) (unknown) Neut # (Auto) 1800 (units (unknown) date) unknown) (unknown) (no (unknown) (unknown) Neut # (Auto) (units ( unknown) date) unknown) (unknown) (no (unknown) (unknown) Neut % (Auto) 42.4 (units (unknown) date) L unknown) (unknown) (no (unknown) (unknown) Neut % (Auto) (units ( unknown) date) unknown) (unknown) (no (unknown) (unknown) Objective (units (unkn own) date) unknown) (unknown) (no (unknown) (unknown) Oxygen Delivery (units (unknown) date) Method Room Air unknown) (unknown) (no (unknown) (unknown) Oxygen Delivery (units (unknown) date) Method unknown) (unknown) (no (unknown) (unknown) PFSH (units (unkno wn) date) unknown) (unknown) (no (unknown) (unknown) PT 11.2 (units (unkno wn) date) unknown) (unknown) (no (unknown) (unknown) PT (units (unkno wn) date) unknown) (unknown) (no (unknown) (unknown) Patient: (units (unkno wn) date) Octavio Romo unknown) MR#: [id number] (unknown) (no (unknown) (unknown) Plt Count 296 (units ( unknown) date) unknown) (unknown) (no (unknown) (unknown) Plt Count (units (unkn own) date) unknown) (unknown) (no (unknown) (unknown) Potassium 3.9 (units ( unknown) date) unknown) (unknown) (no (unknown) (unknown) Potassium (units (unkn own) date) unknown) (unknown) (no (unknown) (unknown) Provider: (units (unkn own) date) Genesis Dunn unknown) 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 (unknown) (no (unknown) (unknown) Pulse Oximetry 91 (units (unknown) date) 96 unknown) (unknown) (no (unknown) (unknown) Pulse Oximetry 92 (units (unknown) date) unknown) (unknown) (no (unknown) (unknown) Pulse Oximetry 94 (units (unknown) date) 94 unknown) (unknown) (no (unknown) (unknown) Pulse Oximetry 94 (units (unknown) date) 95 unknown) (unknown) (no (unknown) (unknown) Pulse Oximetry 94 (units (unknown) date) 96 unknown) (unknown) (no (unknown) (unknown) Pulse Oximetry 94 (units (unknown) date) unknown) (unknown) (no (unknown) (unknown) Pulse Oximetry 95 (units (unknown) date) 95 100 unknown) (unknown) (no (unknown) (unknown) Pulse Oximetry 95 (units (unknown) date) 96 unknown) (unknown) (no (unknown) (unknown) Pulse Oximetry 95 (units (unknown) date) unknown) (unknown) (no (unknown) (unknown) Pulse Oximetry 96 (units (unknown) date) 94 unknown) (unknown) (no (unknown) (unknown) Pulse Oximetry 96 (units (unknown) date) 96 unknown) (unknown) (no (unknown) (unknown) Pulse Oximetry 96 (units (unknown) date) unknown) (unknown) (no (unknown) (unknown) Pulse Rate 156 H (units (unknown) date) unknown) (unknown) (no (unknown) (unknown) Pulse Rate 69 (units ( unknown) date) unknown) (unknown) (no (unknown) (unknown) Pulse Rate 71 (units ( unknown) date) unknown) (unknown) (no (unknown) (unknown) Pulse Rate 74 101 (units (unknown) date) H unknown) (unknown) (no (unknown) (unknown) Pulse Rate 74 (units ( unknown) date) unknown) (unknown) (no (unknown) (unknown) Pulse Rate 75 (units ( unknown) date) unknown) (unknown) (no (unknown) (unknown) Pulse Rate 77 (units ( unknown) date) unknown) (unknown) (no (unknown) (unknown) Pulse Rate 78 60 (units (unknown) date) 57 L unknown) (unknown) (no (unknown) (unknown) Pulse Rate 78 74 (units (unknown) date) unknown) (unknown) (no (unknown) (unknown) Pulse Rate 81 77 (units (unknown) date) unknown) (unknown) (no (unknown) (unknown) Pulse Rate 83 80 (units (unknown) date) unknown) (unknown) (no (unknown) (unknown) Pulse Rate 85 78 (units (unknown) date) 168 H unknown) (unknown) (no (unknown) (unknown) Pulse Rate 89 94 H (units (unknown) date) unknown) (unknown) (no (unknown) (unknown) Pulse Rate 93 H 78 (units (unknown) date) unknown) (unknown) (no (unknown) (unknown) Pulse Rate 97 H 96 (units (unknown) date) H unknown) (unknown) (no (unknown) (unknown) RBC 3.80 L (units (unk nown) date) unknown) (unknown) (no (unknown) (unknown) RBC (units (unkno wn) date) unknown) (unknown) (no (unknown) (unknown) RDW 13.2 (units (unkno wn) date) unknown) (unknown) (no (unknown) (unknown) RDW (units (unkno wn) date) unknown) (unknown) (no (unknown) (unknown) Respiratory Rate (units (unknown) date) 10 L unknown) (unknown) (no (unknown) (unknown) Respiratory Rate (units (unknown) date) 11 L unknown) (unknown) (no (unknown) (unknown) Respiratory Rate (units (unknown) date) 13 13 unknown) (unknown) (no (unknown) (unknown) Respiratory Rate (units (unknown) date) 13 unknown) (unknown) (no (unknown) (unknown) Respiratory Rate (units (unknown) date) 14 14 unknown) (unknown) (no (unknown) (unknown) Respiratory Rate (units (unknown) date) 14 23 unknown) (unknown) (no (unknown) (unknown) Respiratory Rate (units (unknown) date) 14 unknown) (unknown) (no (unknown) (unknown) Respiratory Rate (units (unknown) date) 15 unknown) (unknown) (no (unknown) (unknown) Respiratory Rate (units (unknown) date) 16 unknown) (unknown) (no (unknown) (unknown) Respiratory Rate (units (unknown) date) 18 0 L 17 unknown) (unknown) (no (unknown) (unknown) Respiratory Rate (units (unknown) date) 19 15 unknown) (unknown) (no (unknown) (unknown) Respiratory Rate (units (unknown) date) 19 18 20 unknown) (unknown) (no (unknown) (unknown) Respiratory Rate (units (unknown) date) 24 17 unknown) (unknown) (no (unknown) (unknown) Respiratory Rate (units (unknown) date) unknown) (unknown) (no (unknown) (unknown) Review of Systems (units (unknown) date) unknown) (unknown) (no (unknown) (unknown) SARS-CoV-2 (PCR) (units (unknown) date) Negative unknown) (unknown) (no (unknown) (unknown) SARS-CoV-2 (PCR) (units (unknown) date) unknown) (unknown) (no (unknown) (unknown) Signed By: (units (unk nown) date) unknown) (unknown) (no (unknown) (unknown) Smoking Status: (units (unknown) date) Never smoker unknown) (unknown) (no (unknown) (unknown) Social History (units (unknown) date) (Updated 01/15/23 @ unknown) 02:23 by SOMMER Chairez) (unknown) (no (unknown) (unknown) Sodium 140 (units (unk nown) date) unknown) (unknown) (no (unknown) (unknown) Sodium (units (unkno wn) date) unknown) (unknown) (no (unknown) (unknown) Solostar U-100 (units (unknown) date) Insulin) unknown) (unknown) (no (unknown) (unknown) Surgical History (units (unknown) date) (Reviewed 01/15/23 unknown) @ 02:22 by DOUG Chairez) (unknown) (no (unknown) (unknown) Time Patient Seen: (units (unknown) date) 22:42 unknown) (unknown) (no (unknown) (unknown) Total Bilirubin (units (unknown) date) 0.4 unknown) (unknown) (no (unknown) (unknown) Total Bilirubin (units (unknown) date) unknown) (unknown) (no (unknown) (unknown) Total Protein 7.2 (units (unknown) date) unknown) (unknown) (no (unknown) (unknown) Total Protein (units ( unknown) date) unknown) (unknown) (no (unknown) (unknown) U Benzodiazepines (units (unknown) date) Scrn Positive H unknown) (unknown) (no (unknown) (unknown) U Benzodiazepines (units (unknown) date) Scrn unknown) (unknown) (no (unknown) (unknown) U Marijuana (THC) (units (unknown) date) Screen Negative unknown) (unknown) (no (unknown) (unknown) U Marijuana (THC) (units (unknown) date) Screen unknown) (unknown) (no (unknown) (unknown) U Methamphetamines (units (unknown) date) Scrn Negative unknown) (unknown) (no (unknown) (unknown) U Methamphetamines (units (unknown) date) Scrn unknown) (unknown) (no (unknown) (unknown) U Opiates 300ng/mL (units (unknown) date) cut Positive H unknown) (unknown) (no (unknown) (unknown) U Opiates 300ng/mL (units (unknown) date) cut unknown) (unknown) (no (unknown) (unknown) U Tricyclic (units (un known) date) Antidepress unknown) Negative (unknown) (no (unknown) (unknown) U Tricyclic (units (un known) date) Antidepress unknown) (unknown) (no (unknown) (unknown) Unable to obtain (units (unknown) date) accurate ROS due to unknown) encephalopathy-All 12 point systems (unknown) (no (unknown) (unknown) Ur Amphetamines (units (unknown) date) Screen Negative unknown) (unknown) (no (unknown) (unknown) Ur Amphetamines (units (unknown) date) Screen unknown) (unknown) (no (unknown) (unknown) Ur Barbiturates (units (unknown) date) Screen Negative unknown) (unknown) (no (unknown) (unknown) Ur Barbiturates (units (unknown) date) Screen unknown) (unknown) (no (unknown) (unknown) Ur Culture (units (unk nown) date) Indicated? Cult not unknown) indicated (unknown) (no (unknown) (unknown) Ur Culture (units (unk nown) date) Indicated? unknown) (unknown) (no (unknown) (unknown) Ur Leukocyte (units (u nknown) date) Esterase Negative unknown) (unknown) (no (unknown) (unknown) Ur Leukocyte (units (u nknown) date) Esterase unknown) (unknown) (no (unknown) (unknown) Ur MDMA Scrn (units (u nknown) date) (Ecstasy) Negative unknown) (unknown) (no (unknown) (unknown) Ur MDMA Scrn (units (u nknown) date) (Ecstasy) unknown) (unknown) (no (unknown) (unknown) Ur Oxycodone (units (u nknown) date) Screen Negative unknown) (unknown) (no (unknown) (unknown) Ur Oxycodone (units (u nknown) date) Screen unknown) (unknown) (no (unknown) (unknown) Ur Phencyclidine (units (unknown) date) Scrn Negative unknown) (unknown) (no (unknown) (unknown) Ur Phencyclidine (units (unknown) date) Scrn unknown) (unknown) (no (unknown) (unknown) Ur Specific (units (un known) date) [place] 1.010 unknown) (unknown) (no (unknown) (unknown) Ur Specific (units (un known) date) [place] unknown) (unknown) (no (unknown) (unknown) Urine Appearance (units (unknown) date) Clear unknown) (unknown) (no (unknown) (unknown) Urine Appearance (units (unknown) date) unknown) (unknown) (no (unknown) (unknown) Urine Bacteria (units (unknown) date) None seen unknown) (unknown) (no (unknown) (unknown) Urine Bacteria (units (unknown) date) unknown) (unknown) (no (unknown) (unknown) Urine Bilirubin (units (unknown) date) Negative unknown) (unknown) (no (unknown) (unknown) Urine Bilirubin (units (unknown) date) unknown) (unknown) (no (unknown) (unknown) Urine Cocaine (units ( unknown) date) Screen Negative unknown) (unknown) (no (unknown) (unknown) Urine Cocaine (units ( unknown) date) Screen unknown) (unknown) (no (unknown) (unknown) Urine Color Yellow (units (unknown) date) unknown) (unknown) (no (unknown) (unknown) Urine Color (units (un known) date) unknown) (unknown) (no (unknown) (unknown) Urine Glucose (UA) (units (unknown) date) 2+ H unknown) (unknown) (no (unknown) (unknown) Urine Glucose (UA) (units (unknown) date) unknown) (unknown) (no (unknown) (unknown) Urine Ketones (units ( unknown) date) Negative unknown) (unknown) (no (unknown) (unknown) Urine Ketones (units ( unknown) date) unknown) (unknown) (no (unknown) (unknown) Urine Methadone (units (unknown) date) Screen Negative unknown) (unknown) (no (unknown) (unknown) Urine Methadone (units (unknown) date) Screen unknown) (unknown) (no (unknown) (unknown) Urine Nitrate (units ( unknown) date) Negative unknown) (unknown) (no (unknown) (unknown) Urine Nitrate (units ( unknown) date) unknown) (unknown) (no (unknown) (unknown) Urine Occult Blood (units (unknown) date) Negative unknown) (unknown) (no (unknown) (unknown) Urine Occult Blood (units (unknown) date) unknown) (unknown) (no (unknown) (unknown) Urine Protein (units ( unknown) date) Negative unknown) (unknown) (no (unknown) (unknown) Urine Protein (units ( unknown) date) unknown) (unknown) (no (unknown) (unknown) Urine RBC None (units (unknown) date) seen unknown) (unknown) (no (unknown) (unknown) Urine RBC (units (unkn own) date) unknown) (unknown) (no (unknown) (unknown) Urine Urobilinogen (units (unknown) date) 1.0 unknown) (unknown) (no (unknown) (unknown) Urine Urobilinogen (units (unknown) date) unknown) (unknown) (no (unknown) (unknown) Urine WBC None (units (unknown) date) seen unknown) (unknown) (no (unknown) (unknown) Urine WBC (units (unkn own) date) unknown) (unknown) (no (unknown) (unknown) Urine pH 6.5 (units (u nknown) date) unknown) (unknown) (no (unknown) (unknown) Urine pH (units (unkno wn) date) unknown) (unknown) (no (unknown) (unknown) Vital Signs (units (un known) date) unknown) (unknown) (no (unknown) (unknown) WAS (units (unkno wn) date) unknown) (unknown) (no (unknown) (unknown) WBC 4.3 L (units (unkn own) date) unknown) (unknown) (no (unknown) (unknown) WBC (units (unkno wn) date) unknown) (unknown) (no (unknown) (unknown) When asked on (units ( unknown) date) admit regarding unknown) code status patient requested to be a full code, (unknown) (no (unknown) (unknown) [Embedded Image (units (unknown) date) Not Available] unknown) (unknown) (no (unknown) (unknown) [From BETADINE] (units (unknown) date) FEELS LIKE unknown) (unknown) (no (unknown) (unknown) [SHELLFISH (units (unk nown) date) DERIVED] LIKE IT unknown) (unknown) (no (unknown) (unknown) admit patient is (units (unknown) date) unable to state unknown) where he is unable to recall how or when he (unknown) (no (unknown) (unknown) alcohol intake: (units (unknown) date) current unknown) (unknown) (no (unknown) (unknown) and denied suicide (units (unknown) date) ideation. patient unknown) is hemodynamically stable pleasant (unknown) (no (unknown) (unknown) atorvastatin 40 mg (units (unknown) date) tablet 40 mg PO unknown) BEDTIME 01/14/23 01/14/23 History (unknown) (no (unknown) (unknown) attempts to (units (un known) date) transfer patient unknown) for detox, but was refused due to hyperglycemia, (unknown) (no (unknown) (unknown) been called to the (units (unknown) date) patient's home unknown) several times over the last few days, he was (unknown) (no (unknown) (unknown) bruising left (units (u nknown) date) abdomen, upper abd, unknown) chest, scabbed abrasion to left anterior lower (unknown) (no (unknown) (unknown) converses easily (units (unknown) date) but is confused. unknown) WBC 4.3, H+H 12.3/36.9, initial glucose 344, (unknown) (no (unknown) (unknown) covered in a (units (u nknown) date) variety of multiple unknown) injuries in varying degrees healing, a scabbed (unknown) (no (unknown) (unknown) dextroamphetamine- (units (unknown) date) amphetamine 20 20 unknown) mg PO BID 01/14/23 01/14/23 History (unknown) (no (unknown) (unknown) did not answer.? (units (unknown) date) Patient was seen unknown) and evaluated by GEOLOGY INSTRUCTOR in the ED made multiple (unknown) (no (unknown) (unknown) elevated QTC on (units (unknown) date) EKG, and unknown) encephalopathy. Unable to obtain accurate HPI, ROS due (unknown) (no (unknown) (unknown) elevated QTC on (units (unknown) date) EKG, and unknown) encephalopathy. (unknown) (no (unknown) (unknown) extremities well.? (units (unknown) date) Is conversant but unknown) confused.? Patient states he drinks at (unknown) (no (unknown) (unknown) extremity, (units (unk nown) date) significant deep unknown) bruising to lower coccyx area. Patient denies (unknown) (no (unknown) (unknown) fall, head injury, (units (unknown) date) atrial unknown) fibrillation, encephalopathy, ETOH abuse/intoxication, (unknown) (no (unknown) (unknown) fall, head injury, (units (unknown) date) encephalopathy, unknown) ETOH abuse/intoxication, hyperglycemia. (unknown) (no (unknown) (unknown) found down this (units (unknown) date) evening on the unknown) bathroom floor with broken glass perhaps broken (unknown) (no (unknown) (unknown) furosemide 20 mg (units (unknown) date) tablet 20 mg PO unknown) DAILY 01/14/23 01/14/23 History (unknown) (no (unknown) (unknown) head CT negative, (units (unknown) date) CT of unknown) abdomen/pelvis multiple remote left rib fractures, left (unknown) (no (unknown) (unknown) household members: (units (unknown) date) none unknown) (unknown) (no (unknown) (unknown) hyperglycemia. (units (unknown) date) unknown) (unknown) (no (unknown) (unknown) insulin glargine (units (unknown) date) 100 unit/mL (3 20 unknown) unit SUBCUT BEDTIME 01/14/23 01/14/23 History (unknown) (no (unknown) (unknown) insulin lispro 100 (units (unknown) date) unit/mL See Rx unknown) Instructions .Route .COMPLEX 01/14/23 01/14/23 (unknown) (no (unknown) (unknown) kill himself when (units (unknown) date) asked why he did unknown) not answer'? When asked if he has a plan he (unknown) (no (unknown) (unknown) least a 5th of (units (unknown) date) Vodka daily, denies unknown) tobacco or illicit.? Patient is unable to (unknown) (no (unknown) (unknown) losartan 100 mg (units (unknown) date) tablet 100 mg PO unknown) DAILY 01/14/23 01/14/23 History (unknown) (no (unknown) (unknown) mL) subcutaneous (units (unknown) date) pen (Lantus unknown) (unknown) (no (unknown) (unknown) mg tablet (units (unkn own) date) unknown) (unknown) (no (unknown) (unknown) mirror and blood (units (unknown) date) at the scene. unknown) Patient is confused, but redirectable. During (unknown) (no (unknown) (unknown) negative, tox (units ( unknown) date) screen is positive unknown) for opiates and benzos, initial ETOH 308, (unknown) (no (unknown) (unknown) obtain these (units (u nknown) date) injuries in the unknown) events that led him to the hospital today. He is (unknown) (no (unknown) (unknown) pain, no shortness (units (unknown) date) of breath, no GI or unknown) urinary symptoms.? He is moving all his (unknown) (no (unknown) (unknown) penicillin G (units (u nknown) date) [PENICILLIN G] unknown) Allergy Unknown LEFT EAR Verified 07/27/18 10:10 (unknown) (no (unknown) (unknown) povidone-iodine (units (unknown) date) Allergy Unknown unknown) 'SKIN Verified 07/27/18 10:10 (unknown) (no (unknown) (unknown) propranolol 20 mg (units (unknown) date) tablet 20 mg PO BID unknown) 01/14/23 01/14/23 History (unknown) (no (unknown) (unknown) recall what his (units (unknown) date) medications are he unknown) believes he is on insulins but he has no idea (unknown) (no (unknown) (unknown) repeat 254, AST (units (unknown) date) 87, ALT 88, unknown) alk-phos 144, UA negative, lactate negative, lipase (unknown) (no (unknown) (unknown) repeat 91. COVID (units (unknown) date) negative. EKG sinus unknown) rhythm rate 72 QTC 499, without ST or T (unknown) (no (unknown) (unknown) reviewed with the (units (unknown) date) patient and are unknown) negative except otherwise documented. (unknown) (no (unknown) (unknown) scapula fracture, (units (unknown) date) and L1/L2 unknown) transverse process fracture. Patient admitted for (unknown) (no (unknown) (unknown) shellfish derived (units (unknown) date) Allergy Unknown unknown) 'SKIN FELT Verified 07/27/18 10:10 (unknown) (no (unknown) (unknown) soap [From (units (unk nown) date) BETADINE] Allergy unknown) Unknown 'SKIN Verified 07/27/18 10:10 (unknown) (no (unknown) (unknown) stimulator in back (units (unknown) date) lumbar + Dilaudid unknown) pain pump in abdomen.? EMS had apparently (unknown) (no (unknown) (unknown) subcutaneous pen (units (unknown) date) (Humalog KwikPen unknown) (unknown) (no (unknown) (unknown) superficial (units (un known) date) laceration over his unknown) right forehead, small burn right forearm, (unknown) (no (unknown) (unknown) tamsulosin 0.4 mg (units (unknown) date) capsule 0.4 mg PO unknown) DAILY 01/14/23 01/14/23 History (unknown) (no (unknown) (unknown) to encephalopathy. (units (unknown) date) ED reported patient unknown) had an episode of atrial fibrillation (unknown) (no (unknown) (unknown) to kill himself to (units (unknown) date) the medics and when unknown) asked in ED he ' stated he did want to (unknown) (no (unknown) (unknown) wave changes. (units ( unknown) date) Chest x-ray unknown) negative, C-spine negative, pelvic x-ray negative, (unknown) (no (unknown) (unknown) when or if he is (units (unknown) date) taken his unknown) medication. He did make statements that he wanted (unknown) (no (unknown) (unknown) which metoprolol (units (unknown) date) was given and unknown) quickly resolved. Result panel 242 (unknown) (no (unknown) (unknown) (no value) (units (unk nown) date) unknown) (unknown) (no (unknown) (unknown) (U-100) Insulin) (units (unknown) date) unknown) (unknown) (no (unknown) (unknown) (past 8 hours): (units (unknown) date) unknown) (unknown) (no (unknown) (unknown) -lives alone, (units ( unknown) date) permanently unknown) disabled (unknown) (no (unknown) (unknown) [id number] (units (unkno wn) date) unknown) (unknown) (no (unknown) (unknown) 01/14/23 01/14/23 (units (unknown) date) 01/14/23 unknown) (unknown) (no (unknown) (unknown) 01/14/23 10:45 (units (unknown) date) unknown) (unknown) (no (unknown) (unknown) 01/14/23 (units (unkno wn) date) unknown) (unknown) (no (unknown) (unknown) 10:45 10:45 10:45 (units (unknown) date) unknown) (unknown) (no (unknown) (unknown) 10:45 11:23 13:48 (units (unknown) date) unknown) (unknown) (no (unknown) (unknown) 14:09 14:09 15:25 (units (unknown) date) unknown) (unknown) (no (unknown) (unknown) 15:00 01/14/23 (units (unknown) date) unknown) (unknown) (no (unknown) (unknown) 15:02 01/14/23 (units (unknown) date) unknown) (unknown) (no (unknown) (unknown) 15:02 (units (unkno wn) date) unknown) (unknown) (no (unknown) (unknown) 15:30 01/14/23 (units (unknown) date) unknown) (unknown) (no (unknown) (unknown) 16:00 01/14/23 (units (unknown) date) unknown) (unknown) (no (unknown) (unknown) 16:00 (units (unkno wn) date) unknown) (unknown) (no (unknown) (unknown) 16:30 01/14/23 (units (unknown) date) unknown) (unknown) (no (unknown) (unknown) 17:00 01/14/23 (units (unknown) date) unknown) (unknown) (no (unknown) (unknown) 17:00 (units (unkno wn) date) unknown) (unknown) (no (unknown) (unknown) 17:30 01/14/23 (units (unknown) date) unknown) (unknown) (no (unknown) (unknown) 17:30 (units (unkno wn) date) unknown) (unknown) (no (unknown) (unknown) 18:00 01/14/23 (units (unknown) date) unknown) (unknown) (no (unknown) (unknown) 18:15 (units (unkno wn) date) unknown) (unknown) (no (unknown) (unknown) 18:30 01/14/23 (units (unknown) date) unknown) (unknown) (no (unknown) (unknown) 18:30 (units (unkno wn) date) unknown) (unknown) (no (unknown) (unknown) 19:00 01/14/23 (units (unknown) date) unknown) (unknown) (no (unknown) (unknown) 19:15 01/14/23 (units (unknown) date) unknown) (unknown) (no (unknown) (unknown) 19:15 (units (unkno wn) date) unknown) (unknown) (no (unknown) (unknown) 19:20 01/14/23 (units (unknown) date) unknown) (unknown) (no (unknown) (unknown) 19:20 (units (unkno wn) date) unknown) (unknown) (no (unknown) (unknown) 19:25 01/14/23 (units (unknown) date) unknown) (unknown) (no (unknown) (unknown) 19:30 01/14/23 (units (unknown) date) unknown) (unknown) (no (unknown) (unknown) 19:30 (units (unkno wn) date) unknown) (unknown) (no (unknown) (unknown) 19:34 01/14/23 (units (unknown) date) unknown) (unknown) (no (unknown) (unknown) 19:35 01/14/23 (units (unknown) date) unknown) (unknown) (no (unknown) (unknown) 19:35 (units (unkno wn) date) unknown) (unknown) (no (unknown) (unknown) 19:40 01/14/23 (units (unknown) date) unknown) (unknown) (no (unknown) (unknown) 19:40 (units (unkno wn) date) unknown) (unknown) (no (unknown) (unknown) 19:45 01/14/23 (units (unknown) date) unknown) (unknown) (no (unknown) (unknown) 19:50 01/14/23 (units (unknown) date) unknown) (unknown) (no (unknown) (unknown) 19:50 (units (unkno wn) date) unknown) (unknown) (no (unknown) (unknown) 19:55 01/14/23 (units (unknown) date) unknown) (unknown) (no (unknown) (unknown) 19:55 (units (unkno wn) date) unknown) (unknown) (no (unknown) (unknown) 20:00 01/14/23 (units (unknown) date) unknown) (unknown) (no (unknown) (unknown) 20:05 01/14/23 (units (unknown) date) unknown) (unknown) (no (unknown) (unknown) 20:05 (units (unkno wn) date) unknown) (unknown) (no (unknown) (unknown) 20:30 01/14/23 (units (unknown) date) unknown) (unknown) (no (unknown) (unknown) 20:30 (units (unkno wn) date) unknown) (unknown) (no (unknown) (unknown) 21:00 01/14/23 (units (unknown) date) unknown) (unknown) (no (unknown) (unknown) 21:30 01/14/23 (units (unknown) date) unknown) (unknown) (no (unknown) (unknown) 21:30 (units (unkno wn) date) unknown) (unknown) (no (unknown) (unknown) 22:00 01/14/23 (units (unknown) date) unknown) (unknown) (no (unknown) (unknown) 22:25 (units (unkno wn) date) unknown) (unknown) (no (unknown) (unknown) AGE 12YR (units (unkno wn) date) unknown) (unknown) (no (unknown) (unknown) ALT 88 H (units (unkno wn) date) unknown) (unknown) (no (unknown) (unknown) ALT (units (unkno wn) date) unknown) (unknown) (no (unknown) (unknown) APTT 34 (units (unkno wn) date) unknown) (unknown) (no (unknown) (unknown) APTT (units (unkno wn) date) unknown) (unknown) (no (unknown) (unknown) AST 87 H (units (unkno wn) date) unknown) (unknown) (no (unknown) (unknown) AST (units (unkno wn) date) unknown) (unknown) (no (unknown) (unknown) Abdomen: Soft (units ( unknown) date) nontender, negative unknown) for organomegaly, or masses. Bowel sounds (unknown) (no (unknown) (unknown) Age/Sex: 53 / M (units (unknown) date) unknown) (unknown) (no (unknown) (unknown) Albumin 4.0 (units (un known) date) unknown) (unknown) (no (unknown) (unknown) Albumin (units (unkno wn) date) unknown) (unknown) (no (unknown) (unknown) Albumin/Globulin (units (unknown) date) Ratio 1.3 unknown) (unknown) (no (unknown) (unknown) Albumin/Globulin (units (unknown) date) Ratio unknown) (unknown) (no (unknown) (unknown) Alcohol (units (unkno wn) date) intoxication unknown) (unknown) (no (unknown) (unknown) Alkaline (units (unkno wn) date) Phosphatase 146 H unknown) (unknown) (no (unknown) (unknown) Alkaline (units (unkno wn) date) Phosphatase unknown) (unknown) (no (unknown) (unknown) Allergies (units (unkn own) date) unknown) (unknown) (no (unknown) (unknown) Allergy/AdvReac (units (unknown) date) Type Severity unknown) Reaction Status Date / Time (unknown) (no (unknown) (unknown) Antibody Screen (units (unknown) date) Negative unknown) (unknown) (no (unknown) (unknown) Antibody Screen (units (unknown) date) unknown) (unknown) (no (unknown) (unknown) Assessment + Plan (units (unknown) date) narrative: unknown) (unknown) (no (unknown) (unknown) Assessment + Plan (units (unknown) date) unknown) (unknown) (no (unknown) (unknown) BPH (benign (units (un known) date) prostatic unknown) hyperplasia) (unknown) (no (unknown) (unknown) BUN 8 L (units (unkno wn) date) unknown) (unknown) (no (unknown) (unknown) BUN (units (unkno wn) date) unknown) (unknown) (no (unknown) (unknown) BUN/Creatinine (units (unknown) date) Ratio 19.0 unknown) (unknown) (no (unknown) (unknown) BUN/Creatinine (units (unknown) date) Ratio unknown) (unknown) (no (unknown) (unknown) BURNING' (units (unkno wn) date) unknown) (unknown) (no (unknown) (unknown) Baso # (Auto) 100 (units (unknown) date) unknown) (unknown) (no (unknown) (unknown) Baso # (Auto) (units ( unknown) date) unknown) (unknown) (no (unknown) (unknown) Baso % (Auto) 1.4 (units (unknown) date) unknown) (unknown) (no (unknown) (unknown) Baso % (Auto) (units ( unknown) date) unknown) (unknown) (no (unknown) (unknown) Blood Pressure (units (unknown) date) 106/52 L 113/56 L unknown) (unknown) (no (unknown) (unknown) Blood Pressure (units (unknown) date) 121/73 unknown) (unknown) (no (unknown) (unknown) Blood Pressure (units (unknown) date) 129/80 138/76 unknown) (unknown) (no (unknown) (unknown) Blood Pressure (units (unknown) date) 130/82 162/103 H unknown) (unknown) (no (unknown) (unknown) Blood Pressure (units (unknown) date) 132/96 H 169/93 H unknown) (unknown) (no (unknown) (unknown) Blood Pressure (units (unknown) date) 137/72 unknown) (unknown) (no (unknown) (unknown) Blood Pressure (units (unknown) date) 137/85 unknown) (unknown) (no (unknown) (unknown) Blood Pressure (units (unknown) date) 138/102 H 130/92 H unknown) (unknown) (no (unknown) (unknown) Blood Pressure (units (unknown) date) 142/89 H unknown) (unknown) (no (unknown) (unknown) Blood Pressure (units (unknown) date) 143/94 H 141/93 H unknown) (unknown) (no (unknown) (unknown) Blood Pressure (units (unknown) date) 148/82 H unknown) (unknown) (no (unknown) (unknown) Blood Pressure (units (unknown) date) 155/95 H 124/84 unknown) (unknown) (no (unknown) (unknown) Blood Pressure (units (unknown) date) 158/95 H unknown) (unknown) (no (unknown) (unknown) Blood Pressure (units (unknown) date) 172/88 H unknown) (unknown) (no (unknown) (unknown) Blood Pressure (units (unknown) date) 175/108 H unknown) (unknown) (no (unknown) (unknown) Blood Pressure (units (unknown) date) unknown) (unknown) (no (unknown) (unknown) Blood Type O (units (u nknown) date) Positive unknown) (unknown) (no (unknown) (unknown) Blood Type (units (unk nown) date) unknown) (unknown) (no (unknown) (unknown) Calcium 8.5 (units (un known) date) unknown) (unknown) (no (unknown) (unknown) Calcium (units (unkno wn) date) unknown) (unknown) (no (unknown) (unknown) Carbon Dioxide 30 (units (unknown) date) unknown) (unknown) (no (unknown) (unknown) Carbon Dioxide (units (unknown) date) unknown) (unknown) (no (unknown) (unknown) Cardio: regular (units (unknown) date) rate and rhythm unknown) without murmur, rubs, or gallops, no carotid (unknown) (no (unknown) (unknown) Chest: Breathing (units (unknown) date) no nasal flaring, unknown) retractions, or tachypneic labored (unknown) (no (unknown) (unknown) Chief complaint: (units (unknown) date) Trauma unknown) (unknown) (no (unknown) (unknown) Chloride 100 (units (u nknown) date) unknown) (unknown) (no (unknown) (unknown) Chloride (units (unkno wn) date) unknown) (unknown) (no (unknown) (unknown) Chronic low back (units (unknown) date) pain unknown) (unknown) (no (unknown) (unknown) Comment: (units (unkno wn) date) unknown) (unknown) (no (unknown) (unknown) Congestive heart (units (unknown) date) failure unknown) (unknown) (no (unknown) (unknown) Creatinine 0.42 L (units (unknown) date) unknown) (unknown) (no (unknown) (unknown) Creatinine (units (unk nown) date) unknown) (unknown) (no (unknown) (unknown) : 1970 (units (unknown) date) Acct:[id number] unknown) (unknown) (no (unknown) (unknown) Date Patient Seen: (units (unknown) date) 01/14/23 unknown) (unknown) (no (unknown) (unknown) Date of Service: (units (unknown) date) 01/14/23 unknown) (unknown) (no (unknown) (unknown) Drinks a 5th of (units (unknown) date) vodka daily unknown) (unknown) (no (unknown) (unknown) Eos # (Auto) 100 (units (unknown) date) unknown) (unknown) (no (unknown) (unknown) Eos # (Auto) (units (u nknown) date) unknown) (unknown) (no (unknown) (unknown) Eos % (Auto) 2.2 (units (unknown) date) unknown) (unknown) (no (unknown) (unknown) Eos % (Auto) (units (u nknown) date) unknown) (unknown) (no (unknown) (unknown) Essential (units (unkn own) date) hypertension unknown) (unknown) (no (unknown) (unknown) Estimated GFR > 60 (units (unknown) date) unknown) (unknown) (no (unknown) (unknown) Estimated GFR (units ( unknown) date) unknown) (unknown) (no (unknown) (unknown) Ethyl Alcohol 308 (units (unknown) date) H unknown) (unknown) (no (unknown) (unknown) Ethyl Alcohol 91 H (units (unknown) date) unknown) (unknown) (no (unknown) (unknown) Ethyl Alcohol (units ( unknown) date) unknown) (unknown) (no (unknown) (unknown) Exam Narrative: (units (unknown) date) unknown) (unknown) (no (unknown) (unknown) Exam (units (unkno wn) date) unknown) (unknown) (no (unknown) (unknown) FEELS LIKE (units (unk nown) date) unknown) (unknown) (no (unknown) (unknown) Family History (units (unknown) date) (Updated 01/15/23 @ unknown) 02:24 by SOMMER Chairez) (unknown) (no (unknown) (unknown) Father Diabetes (units (unknown) date) mellitus unknown) (unknown) (no (unknown) (unknown) General: Patient (units (unknown) date) is disheveled, unknown) appears chronically ill and unwell, with (unknown) (no (unknown) (unknown) Globulin 3.2 (units (u nknown) date) unknown) (unknown) (no (unknown) (unknown) Globulin (units (unkno wn) date) unknown) (unknown) (no (unknown) (unknown) Glucose 254 H (units ( unknown) date) unknown) (unknown) (no (unknown) (unknown) Glucose (units (unkno wn) date) unknown) (unknown) (no (unknown) (unknown) HEARING (units (unkno wn) date) unknown) (unknown) (no (unknown) (unknown) HEENT: (units (unkno wn) date) Normocephalic, unknown) extraocular muscles intact, oral pharynx is clear and (unknown) (no (unknown) (unknown) HLD, BPH, (units (unkno wn) date) insulin-dependent unknown) diabetes and chronic low back pain tx with InterStim (unknown) (no (unknown) (unknown) Hct 36.9 L (units (unk nown) date) unknown) (unknown) (no (unknown) (unknown) Hct (units (unkno wn) date) unknown) (unknown) (no (unknown) (unknown) Hgb 12.3 L (units (unk nown) date) unknown) (unknown) (no (unknown) (unknown) Hgb (units (unkno wn) date) unknown) (unknown) (no (unknown) (unknown) History + Physical (units (unknown) date) Report unknown) (unknown) (no (unknown) (unknown) History of Present (units (unknown) date) Illness unknown) (unknown) (no (unknown) (unknown) History of (units (unk nown) date) shoulder surgery unknown) (unknown) (no (unknown) (unknown) History (units (unkno wn) date) unknown) (unknown) (no (unknown) (unknown) Home Medications (units (unknown) date) and Allergies unknown) (unknown) (no (unknown) (unknown) Home Medications (units (unknown) date) unknown) (unknown) (no (unknown) (unknown) Hyperlipidemia due (units (unknown) date) to type 1 diabetes unknown) mellitus (unknown) (no (unknown) (unknown) INR 1.0 (units (unkno wn) date) unknown) (unknown) (no (unknown) (unknown) INR (units (unkno wn) date) unknown) (unknown) (no (unknown) (unknown) [facility] (units (unknown) date) [address] [place] [address] unknown) [place] [address] (unknown) (no (unknown) (unknown) JVD (units (unkno wn) date) unknown) (unknown) (no (unknown) (unknown) LOSS AT (units (unkno wn) date) unknown) (unknown) (no (unknown) (unknown) Laboratory Results (units (unknown) date) - last 24 hr unknown) (unknown) (no (unknown) (unknown) Labs (units (unkno wn) date) unknown) (unknown) (no (unknown) (unknown) Labs: (units (unkno wn) date) unknown) (unknown) (no (unknown) (unknown) Lactate 2.1 1.9 (units (unknown) date) unknown) (unknown) (no (unknown) (unknown) Lactate (units (unkno wn) date) unknown) (unknown) (no (unknown) (unknown) Lipase 109 (units (unk nown) date) unknown) (unknown) (no (unknown) (unknown) Lipase (units (unkno wn) date) unknown) (unknown) (no (unknown) (unknown) Lungs: (units (unkno wn) date) Auscultation of all unknown) lung lopez are clear without adventitious sounds, (unknown) (no (unknown) (unknown) Lymph # (Auto) (units (unknown) date) 1700 unknown) (unknown) (no (unknown) (unknown) Lymph # (Auto) (units (unknown) date) unknown) (unknown) (no (unknown) (unknown) Lymph % (Auto) (units (unknown) date) 39.1 unknown) (unknown) (no (unknown) (unknown) Lymph % (Auto) (units (unknown) date) unknown) (unknown) (no (unknown) (unknown) MCH 32.5 (units (unkno wn) date) unknown) (unknown) (no (unknown) (unknown) MCH (units (unkno wn) date) unknown) (unknown) (no (unknown) (unknown) MCHC 33.5 (units (unkn own) date) unknown) (unknown) (no (unknown) (unknown) MCHC (units (unkno wn) date) unknown) (unknown) (no (unknown) (unknown) MCV 97.1 (units (unkno wn) date) unknown) (unknown) (no (unknown) (unknown) MCV (units (unkno wn) date) unknown) (unknown) (no (unknown) (unknown) Medical History (units (unknown) date) (Reviewed 01/15/23 unknown) @ 02:22 by [facility]) (unknown) (no (unknown) (unknown) Medication (units (unk nown) date) Instructions unknown) Recorded Confirmed Type (unknown) (no (unknown) (unknown) Meds (units (unkno wn) date) unknown) (unknown) (no (unknown) (unknown) Octavio Romo is a (units (unknown) date) 53-year-old male unknown) with known history of alcohol abuse, HTN, (unknown) (no (unknown) (unknown) Micro UA Comment (units (unknown) date) Microscopic normal unknown) (unknown) (no (unknown) (unknown) Micro UA Comment (units (unknown) date) unknown) (unknown) (no (unknown) (unknown) Pender # (Auto) 600 (units (unknown) date) unknown) (unknown) (no (unknown) (unknown) Pender # (Auto) (units ( unknown) date) unknown) (unknown) (no (unknown) (unknown) Pender % (Auto) 14.9 (units (unknown) date) H unknown) (unknown) (no (unknown) (unknown) Pender % (Auto) (units ( unknown) date) unknown) (unknown) (no (unknown) (unknown) Mother (units (unknown) date) Diabetes mellitus unknown) (unknown) (no (unknown) (unknown) Multiple falls (units (unknown) date) unknown) (unknown) (no (unknown) (unknown) Musculoskeletal: (units (unknown) date) Muscle strength and unknown) tone appear wasting, no deformity, (unknown) (no (unknown) (unknown) Narrative (units (unkn own) date) unknown) (unknown) (no (unknown) (unknown) Narrative: (units (unk nown) date) unknown) (unknown) (no (unknown) (unknown) Neuro: Alert to (units (unknown) date) self, confused, unknown) moves all extremities, sensation to touch (unknown) (no (unknown) (unknown) Neut # (Auto) 1800 (units (unknown) date) unknown) (unknown) (no (unknown) (unknown) Neut # (Auto) (units ( unknown) date) unknown) (unknown) (no (unknown) (unknown) Neut % (Auto) 42.4 (units (unknown) date) L unknown) (unknown) (no (unknown) (unknown) Neut % (Auto) (units ( unknown) date) unknown) (unknown) (no (unknown) (unknown) Objective (units (unkn own) date) unknown) (unknown) (no (unknown) (unknown) Oxygen Delivery (units (unknown) date) Method Room Air unknown) (unknown) (no (unknown) (unknown) Oxygen Delivery (units (unknown) date) Method unknown) (unknown) (no (unknown) (unknown) PFSH (units (unkno wn) date) unknown) (unknown) (no (unknown) (unknown) PT 11.2 (units (unkno wn) date) unknown) (unknown) (no (unknown) (unknown) PT (units (unkno wn) date) unknown) (unknown) (no (unknown) (unknown) Patient: (units (unkno wn) date) Octavio Romo L unknown) MR#: [id number] (unknown) (no (unknown) (unknown) Plt Count 296 (units ( unknown) date) unknown) (unknown) (no (unknown) (unknown) Plt Count (units (unkn own) date) unknown) (unknown) (no (unknown) (unknown) Potassium 3.9 (units ( unknown) date) unknown) (unknown) (no (unknown) (unknown) Potassium (units (unkn own) date) unknown) (unknown) (no (unknown) (unknown) Provider: (units (unkn own) date) Genesis Dunn unknown) 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 (unknown) (no (unknown) (unknown) Psych: Patient has (units (unknown) date) a poor kept unknown) appearance, calm inappropriate affect-does not (unknown) (no (unknown) (unknown) Pulse Oximetry 91 (units (unknown) date) 96 unknown) (unknown) (no (unknown) (unknown) Pulse Oximetry 92 (units (unknown) date) unknown) (unknown) (no (unknown) (unknown) Pulse Oximetry 94 (units (unknown) date) 94 unknown) (unknown) (no (unknown) (unknown) Pulse Oximetry 94 (units (unknown) date) 95 unknown) (unknown) (no (unknown) (unknown) Pulse Oximetry 94 (units (unknown) date) 96 unknown) (unknown) (no (unknown) (unknown) Pulse Oximetry 94 (units (unknown) date) unknown) (unknown) (no (unknown) (unknown) Pulse Oximetry 95 (units (unknown) date) 95 100 unknown) (unknown) (no (unknown) (unknown) Pulse Oximetry 95 (units (unknown) date) 96 unknown) (unknown) (no (unknown) (unknown) Pulse Oximetry 95 (units (unknown) date) unknown) (unknown) (no (unknown) (unknown) Pulse Oximetry 96 (units (unknown) date) 94 unknown) (unknown) (no (unknown) (unknown) Pulse Oximetry 96 (units (unknown) date) 96 unknown) (unknown) (no (unknown) (unknown) Pulse Oximetry 96 (units (unknown) date) unknown) (unknown) (no (unknown) (unknown) Pulse Rate 156 H (units (unknown) date) unknown) (unknown) (no (unknown) (unknown) Pulse Rate 69 (units ( unknown) date) unknown) (unknown) (no (unknown) (unknown) Pulse Rate 71 (units ( unknown) date) unknown) (unknown) (no (unknown) (unknown) Pulse Rate 74 101 (units (unknown) date) H unknown) (unknown) (no (unknown) (unknown) Pulse Rate 74 (units ( unknown) date) unknown) (unknown) (no (unknown) (unknown) Pulse Rate 75 (units ( unknown) date) unknown) (unknown) (no (unknown) (unknown) Pulse Rate 77 (units ( unknown) date) unknown) (unknown) (no (unknown) (unknown) Pulse Rate 78 60 (units (unknown) date) 57 L unknown) (unknown) (no (unknown) (unknown) Pulse Rate 78 74 (units (unknown) date) unknown) (unknown) (no (unknown) (unknown) Pulse Rate 81 77 (units (unknown) date) unknown) (unknown) (no (unknown) (unknown) Pulse Rate 83 80 (units (unknown) date) unknown) (unknown) (no (unknown) (unknown) Pulse Rate 85 78 (units (unknown) date) 168 H unknown) (unknown) (no (unknown) (unknown) Pulse Rate 89 94 H (units (unknown) date) unknown) (unknown) (no (unknown) (unknown) Pulse Rate 93 H 78 (units (unknown) date) unknown) (unknown) (no (unknown) (unknown) Pulse Rate 97 H 96 (units (unknown) date) H unknown) (unknown) (no (unknown) (unknown) RBC 3.80 L (units (unk nown) date) unknown) (unknown) (no (unknown) (unknown) RBC (units (unkno wn) date) unknown) (unknown) (no (unknown) (unknown) RDW 13.2 (units (unkno wn) date) unknown) (unknown) (no (unknown) (unknown) RDW (units (unkno wn) date) unknown) (unknown) (no (unknown) (unknown) Respiratory Rate (units (unknown) date) 10 L unknown) (unknown) (no (unknown) (unknown) Respiratory Rate (units (unknown) date) 11 L unknown) (unknown) (no (unknown) (unknown) Respiratory Rate (units (unknown) date) 13 13 unknown) (unknown) (no (unknown) (unknown) Respiratory Rate (units (unknown) date) 13 unknown) (unknown) (no (unknown) (unknown) Respiratory Rate (units (unknown) date) 14 14 unknown) (unknown) (no (unknown) (unknown) Respiratory Rate (units (unknown) date) 14 23 unknown) (unknown) (no (unknown) (unknown) Respiratory Rate (units (unknown) date) 14 unknown) (unknown) (no (unknown) (unknown) Respiratory Rate (units (unknown) date) 15 unknown) (unknown) (no (unknown) (unknown) Respiratory Rate (units (unknown) date) 16 unknown) (unknown) (no (unknown) (unknown) Respiratory Rate (units (unknown) date) 18 0 L 17 unknown) (unknown) (no (unknown) (unknown) Respiratory Rate (units (unknown) date) 19 15 unknown) (unknown) (no (unknown) (unknown) Respiratory Rate (units (unknown) date) 19 18 20 unknown) (unknown) (no (unknown) (unknown) Respiratory Rate (units (unknown) date) 24 17 unknown) (unknown) (no (unknown) (unknown) Respiratory Rate (units (unknown) date) unknown) (unknown) (no (unknown) (unknown) Review of Systems (units (unknown) date) unknown) (unknown) (no (unknown) (unknown) SARS-CoV-2 (PCR) (units (unknown) date) Negative unknown) (unknown) (no (unknown) (unknown) SARS-CoV-2 (PCR) (units (unknown) date) unknown) (unknown) (no (unknown) (unknown) Signed By: (units (unk nown) date) unknown) (unknown) (no (unknown) (unknown) Skin: scabbed (units ( unknown) date) superficial unknown) laceration over his right forehead, small burn right (unknown) (no (unknown) (unknown) Smoking Status: (units (unknown) date) Never smoker unknown) (unknown) (no (unknown) (unknown) Social History (units (unknown) date) (Updated 01/15/23 @ unknown) 02:23 by SOMMER Chairez) (unknown) (no (unknown) (unknown) Sodium 140 (units (unk nown) date) unknown) (unknown) (no (unknown) (unknown) Sodium (units (unkno wn) date) unknown) (unknown) (no (unknown) (unknown) Solostar U-100 (units (unknown) date) Insulin) unknown) (unknown) (no (unknown) (unknown) Surgical History (units (unknown) date) (Reviewed 01/15/23 unknown) @ 02:22 by [facility]) (unknown) (no (unknown) (unknown) Time Patient Seen: (units (unknown) date) 22:42 unknown) (unknown) (no (unknown) (unknown) Total Bilirubin (units (unknown) date) 0.4 unknown) (unknown) (no (unknown) (unknown) Total Bilirubin (units (unknown) date) unknown) (unknown) (no (unknown) (unknown) Total Protein 7.2 (units (unknown) date) unknown) (unknown) (no (unknown) (unknown) Total Protein (units ( unknown) date) unknown) (unknown) (no (unknown) (unknown) U Benzodiazepines (units (unknown) date) Scrn Positive H unknown) (unknown) (no (unknown) (unknown) U Benzodiazepines (units (unknown) date) Scrn unknown) (unknown) (no (unknown) (unknown) U Marijuana (THC) (units (unknown) date) Screen Negative unknown) (unknown) (no (unknown) (unknown) U Marijuana (THC) (units (unknown) date) Screen unknown) (unknown) (no (unknown) (unknown) U Methamphetamines (units (unknown) date) Scrn Negative unknown) (unknown) (no (unknown) (unknown) U Methamphetamines (units (unknown) date) Scrn unknown) (unknown) (no (unknown) (unknown) U Opiates 300ng/mL (units (unknown) date) cut Positive H unknown) (unknown) (no (unknown) (unknown) U Opiates 300ng/mL (units (unknown) date) cut unknown) (unknown) (no (unknown) (unknown) U Tricyclic (units (un known) date) Antidepress unknown) Negative (unknown) (no (unknown) (unknown) U Tricyclic (units (un known) date) Antidepress unknown) (unknown) (no (unknown) (unknown) Unable to obtain (units (unknown) date) accurate ROS due to unknown) encephalopathy-All 12 point systems (unknown) (no (unknown) (unknown) Ur Amphetamines (units (unknown) date) Screen Negative unknown) (unknown) (no (unknown) (unknown) Ur Amphetamines (units (unknown) date) Screen unknown) (unknown) (no (unknown) (unknown) Ur Barbiturates (units (unknown) date) Screen Negative unknown) (unknown) (no (unknown) (unknown) Ur Barbiturates (units (unknown) date) Screen unknown) (unknown) (no (unknown) (unknown) Ur Culture (units (unk nown) date) Indicated? Cult not unknown) indicated (unknown) (no (unknown) (unknown) Ur Culture (units (unk nown) date) Indicated? unknown) (unknown) (no (unknown) (unknown) Ur Leukocyte (units (u nknown) date) Esterase Negative unknown) (unknown) (no (unknown) (unknown) Ur Leukocyte (units (u nknown) date) Esterase unknown) (unknown) (no (unknown) (unknown) Ur MDMA Scrn (units (u nknown) date) (Ecstasy) Negative unknown) (unknown) (no (unknown) (unknown) Ur MDMA Scrn (units (u nknown) date) (Ecstasy) unknown) (unknown) (no (unknown) (unknown) Ur Oxycodone (units (u nknown) date) Screen Negative unknown) (unknown) (no (unknown) (unknown) Ur Oxycodone (units (u nknown) date) Screen unknown) (unknown) (no (unknown) (unknown) Ur Phencyclidine (units (unknown) date) Scrn Negative unknown) (unknown) (no (unknown) (unknown) Ur Phencyclidine (units (unknown) date) Scrn unknown) (unknown) (no (unknown) (unknown) Ur Specific (units (un known) date) [place] 1.010 unknown) (unknown) (no (unknown) (unknown) Ur Specific (units (un known) date) [place] unknown) (unknown) (no (unknown) (unknown) Urine Appearance (units (unknown) date) Clear unknown) (unknown) (no (unknown) (unknown) Urine Appearance (units (unknown) date) unknown) (unknown) (no (unknown) (unknown) Urine Bacteria (units (unknown) date) None seen unknown) (unknown) (no (unknown) (unknown) Urine Bacteria (units (unknown) date) unknown) (unknown) (no (unknown) (unknown) Urine Bilirubin (units (unknown) date) Negative unknown) (unknown) (no (unknown) (unknown) Urine Bilirubin (units (unknown) date) unknown) (unknown) (no (unknown) (unknown) Urine Cocaine (units ( unknown) date) Screen Negative unknown) (unknown) (no (unknown) (unknown) Urine Cocaine (units ( unknown) date) Screen unknown) (unknown) (no (unknown) (unknown) Urine Color Yellow (units (unknown) date) unknown) (unknown) (no (unknown) (unknown) Urine Color (units (un known) date) unknown) (unknown) (no (unknown) (unknown) Urine Glucose (UA) (units (unknown) date) 2+ H unknown) (unknown) (no (unknown) (unknown) Urine Glucose (UA) (units (unknown) date) unknown) (unknown) (no (unknown) (unknown) Urine Ketones (units ( unknown) date) Negative unknown) (unknown) (no (unknown) (unknown) Urine Ketones (units ( unknown) date) unknown) (unknown) (no (unknown) (unknown) Urine Methadone (units (unknown) date) Screen Negative unknown) (unknown) (no (unknown) (unknown) Urine Methadone (units (unknown) date) Screen unknown) (unknown) (no (unknown) (unknown) Urine Nitrate (units ( unknown) date) Negative unknown) (unknown) (no (unknown) (unknown) Urine Nitrate (units ( unknown) date) unknown) (unknown) (no (unknown) (unknown) Urine Occult Blood (units (unknown) date) Negative unknown) (unknown) (no (unknown) (unknown) Urine Occult Blood (units (unknown) date) unknown) (unknown) (no (unknown) (unknown) Urine Protein (units ( unknown) date) Negative unknown) (unknown) (no (unknown) (unknown) Urine Protein (units ( unknown) date) unknown) (unknown) (no (unknown) (unknown) Urine RBC None (units (unknown) date) seen unknown) (unknown) (no (unknown) (unknown) Urine RBC (units (unkn own) date) unknown) (unknown) (no (unknown) (unknown) Urine Urobilinogen (units (unknown) date) 1.0 unknown) (unknown) (no (unknown) (unknown) Urine Urobilinogen (units (unknown) date) unknown) (unknown) (no (unknown) (unknown) Urine WBC None (units (unknown) date) seen unknown) (unknown) (no (unknown) (unknown) Urine WBC (units (unkn own) date) unknown) (unknown) (no (unknown) (unknown) Urine pH 6.5 (units (u nknown) date) unknown) (unknown) (no (unknown) (unknown) Urine pH (units (unkno wn) date) unknown) (unknown) (no (unknown) (unknown) Vital Signs (units (un known) date) unknown) (unknown) (no (unknown) (unknown) WAS (units (unkno wn) date) unknown) (unknown) (no (unknown) (unknown) WBC 4.3 L (units (unkn own) date) unknown) (unknown) (no (unknown) (unknown) WBC (units (unkno wn) date) unknown) (unknown) (no (unknown) (unknown) When asked on (units ( unknown) date) admit regarding unknown) code status patient requested to be a full code, (unknown) (no (unknown) (unknown) [Embedded Image (units (unknown) date) Not Available] unknown) (unknown) (no (unknown) (unknown) [From BETADINE] (units (unknown) date) FEELS LIKE unknown) (unknown) (no (unknown) (unknown) [SHELLFISH (units (unk nown) date) DERIVED] LIKE IT unknown) (unknown) (no (unknown) (unknown) acute distress at (units (unknown) date) this time. unknown) (unknown) (no (unknown) (unknown) adenopathy, no (units (unknown) date) thyroid unknown) enlargement, nontender, no masses palpated. Negative for (unknown) (no (unknown) (unknown) admit patient is (units (unknown) date) unable to state unknown) where he is unable to recall how or when he (unknown) (no (unknown) (unknown) alcohol intake: (units (unknown) date) current unknown) (unknown) (no (unknown) (unknown) and denied suicide (units (unknown) date) ideation. patient unknown) is hemodynamically stable pleasant (unknown) (no (unknown) (unknown) anterior lower (units (unknown) date) extremity, unknown) significant deep bruising to lower coccyx area. (unknown) (no (unknown) (unknown) appear to (units (unkn own) date) appreciate severity unknown) of injuries and state of health, mental status (unknown) (no (unknown) (unknown) are present in all (units (unknown) date) 4 quadrants without unknown) guarding or rebound, no CVA tenderness. (unknown) (no (unknown) (unknown) atorvastatin 40 mg (units (unknown) date) tablet 40 mg PO unknown) BEDTIME 01/14/23 01/14/23 History (unknown) (no (unknown) (unknown) attempts to (units (un known) date) transfer patient unknown) for detox, but was refused due to hyperglycemia, (unknown) (no (unknown) (unknown) attitude thought (units (unknown) date) context and unknown) judgment are inappropriate for age. (unknown) (no (unknown) (unknown) been called to the (units (unknown) date) patient's home unknown) several times over the last few days, he was (unknown) (no (unknown) (unknown) bruising left (units (u nknown) date) abdomen, upper abd, unknown) chest, scabbed abrasion to left anterior lower (unknown) (no (unknown) (unknown) bruit, no cardiac (units (unknown) date) pulsations present. unknown) (unknown) (no (unknown) (unknown) converses easily (units (unknown) date) but is confused. unknown) WBC 4.3, H+H 12.3/36.9, initial glucose 344, (unknown) (no (unknown) (unknown) covered in a (units (u nknown) date) variety of multiple unknown) injuries in varying degrees healing, a scabbed (unknown) (no (unknown) (unknown) crepitus, (units (unkn own) date) effusions, unknown) cyanosis, clubbing or edema present. Full range of motion (unknown) (no (unknown) (unknown) dextroamphetamine- (units (unknown) date) amphetamine 20 20 unknown) mg PO BID 01/14/23 01/14/23 History (unknown) (no (unknown) (unknown) did not answer.? (units (unknown) date) Patient was seen unknown) and evaluated by GEOLOGY INSTRUCTOR in the ED made multiple (unknown) (no (unknown) (unknown) diffuse multiple (units (unknown) date) injuries in various unknown) stages of healing from head to toe, in no (unknown) (no (unknown) (unknown) elevated QTC on (units (unknown) date) EKG, and unknown) encephalopathy. Unable to obtain accurate HPI, ROS due (unknown) (no (unknown) (unknown) elevated QTC on (units (unknown) date) EKG, and unknown) encephalopathy. (unknown) (no (unknown) (unknown) extremities well.? (units (unknown) date) Is conversant but unknown) confused.? Patient states he drinks at (unknown) (no (unknown) (unknown) extremity, (units (unk nown) date) significant deep unknown) bruising to lower coccyx area. Patient denies (unknown) (no (unknown) (unknown) fall, head injury, (units (unknown) date) atrial unknown) fibrillation, encephalopathy, ETOH abuse/intoxication, (unknown) (no (unknown) (unknown) fall, head injury, (units (unknown) date) encephalopathy, unknown) ETOH abuse/intoxication, hyperglycemia. (unknown) (no (unknown) (unknown) forearm, bruising (units (unknown) date) left abdomen + unknown) upper abd, + chest, scabbed abrasion to left (unknown) (no (unknown) (unknown) found down this (units (unknown) date) evening on the unknown) bathroom floor with broken glass perhaps broken (unknown) (no (unknown) (unknown) furosemide 20 mg (units (unknown) date) tablet 20 mg PO unknown) DAILY 01/14/23 01/14/23 History (unknown) (no (unknown) (unknown) head CT negative, (units (unknown) date) CT of unknown) abdomen/pelvis multiple remote left rib fractures, left (unknown) (no (unknown) (unknown) household members: (units (unknown) date) none unknown) (unknown) (no (unknown) (unknown) hyperglycemia. (units (unknown) date) unknown) (unknown) (no (unknown) (unknown) insulin glargine (units (unknown) date) 100 unit/mL (3 20 unknown) unit SUBCUT BEDTIME 01/14/23 01/14/23 History (unknown) (no (unknown) (unknown) insulin lispro 100 (units (unknown) date) unit/mL See Rx unknown) Instructions .Route .COMPLEX 01/14/23 01/14/23 (unknown) (no (unknown) (unknown) intact radial and (units (unknown) date) pedal pulses are unknown) normal. (unknown) (no (unknown) (unknown) intact, no gross (units (unknown) date) deficits noted of unknown) cranial nerves. (unknown) (no (unknown) (unknown) kill himself when (units (unknown) date) asked why he did unknown) not answer'? When asked if he has a plan he (unknown) (no (unknown) (unknown) least a 5th of (units (unknown) date) Vodka daily, denies unknown) tobacco or illicit.? Patient is unable to (unknown) (no (unknown) (unknown) losartan 100 mg (units (unknown) date) tablet 100 mg PO unknown) DAILY 01/14/23 01/14/23 History (unknown) (no (unknown) (unknown) mL) subcutaneous (units (unknown) date) pen (Lantus unknown) (unknown) (no (unknown) (unknown) mg tablet (units (unkn own) date) unknown) (unknown) (no (unknown) (unknown) mirror and blood (units (unknown) date) at the scene. unknown) Patient is confused, but redirectable. During (unknown) (no (unknown) (unknown) mucous membranes (units (unknown) date) are dry. Neck is unknown) supple and symmetric, trachea is midline, no (unknown) (no (unknown) (unknown) negative, tox (units ( unknown) date) screen is positive unknown) for opiates and benzos, initial ETOH 308, (unknown) (no (unknown) (unknown) obtain these (units (u nknown) date) injuries in the unknown) events that led him to the hospital today. He is (unknown) (no (unknown) (unknown) pain, no shortness (units (unknown) date) of breath, no GI or unknown) urinary symptoms.? He is moving all his (unknown) (no (unknown) (unknown) penicillin G (units (u nknown) date) [PENICILLIN G] unknown) Allergy Unknown LEFT EAR Verified 07/27/18 10:10 (unknown) (no (unknown) (unknown) povidone-iodine (units (unknown) date) Allergy Unknown unknown) 'SKIN Verified 07/27/18 10:10 (unknown) (no (unknown) (unknown) propranolol 20 mg (units (unknown) date) tablet 20 mg PO BID unknown) 01/14/23 01/14/23 History (unknown) (no (unknown) (unknown) recall what his (units (unknown) date) medications are he unknown) believes he is on insulins but he has no idea (unknown) (no (unknown) (unknown) repeat 254, AST (units (unknown) date) 87, ALT 88, unknown) alk-phos 144, UA negative, lactate negative, lipase (unknown) (no (unknown) (unknown) repeat 91. COVID (units (unknown) date) negative. EKG sinus unknown) rhythm rate 72 QTC 499, without ST or T (unknown) (no (unknown) (unknown) reviewed with the (units (unknown) date) patient and are unknown) negative except otherwise documented. (unknown) (no (unknown) (unknown) scapula fracture, (units (unknown) date) and L1/L2 unknown) transverse process fracture. Patient admitted for (unknown) (no (unknown) (unknown) shellfish derived (units (unknown) date) Allergy Unknown unknown) 'SKIN FELT Verified 07/27/18 10:10 (unknown) (no (unknown) (unknown) soap [From (units (unk nown) date) BETADINE] Allergy unknown) Unknown 'SKIN Verified 07/27/18 10:10 (unknown) (no (unknown) (unknown) stimulator in back (units (unknown) date) lumbar + Dilaudid unknown) pain pump in abdomen.? EMS had apparently (unknown) (no (unknown) (unknown) subcutaneous pen (units (unknown) date) (Humalog KwikPen unknown) (unknown) (no (unknown) (unknown) superficial (units (un known) date) laceration over his unknown) right forehead, small burn right forearm, (unknown) (no (unknown) (unknown) tamsulosin 0.4 mg (units (unknown) date) capsule 0.4 mg PO unknown) DAILY 01/14/23 01/14/23 History (unknown) (no (unknown) (unknown) to encephalopathy. (units (unknown) date) ED reported patient unknown) had an episode of atrial fibrillation (unknown) (no (unknown) (unknown) to kill himself to (units (unknown) date) the medics and when unknown) asked in ED he ' stated he did want to (unknown) (no (unknown) (unknown) wave changes. (units ( unknown) date) Chest x-ray unknown) negative, C-spine negative, pelvic x-ray negative, (unknown) (no (unknown) (unknown) wheezes, rhonchi, (units (unknown) date) or rales. unknown) (unknown) (no (unknown) (unknown) when or if he is (units (unknown) date) taken his unknown) medication. He did make statements that he wanted (unknown) (no (unknown) (unknown) which metoprolol (units (unknown) date) was given and unknown) quickly resolved. Result panel 243 (unknown) (no (unknown) (unknown) (no value) (units (unk nown) date) unknown) (unknown) (no (unknown) (unknown) (U-100) Insulin) (units (unknown) date) unknown) (unknown) (no (unknown) (unknown) (past 8 hours): (units (unknown) date) unknown) (unknown) (no (unknown) (unknown) -CT of (units (unkno wn) date) abdomen/pelvis unknown) multiple remote left rib fractures, left scapula fracture, (unknown) (no (unknown) (unknown) -Chest x-ray (units (un known) date) negative, C-spine unknown) negative, pelvic x-ray negative, head CT negative (unknown) (no (unknown) (unknown) -brain MR ordered (units (unknown) date) for tomorrow unknown) (unknown) (no (unknown) (unknown) -found down by EMS (units (unknown) date) unknown) (unknown) (no (unknown) (unknown) -lives alone, (units ( unknown) date) permanently unknown) disabled (unknown) (no (unknown) (unknown) -neuro checks. (units (unknown) date) unknown) (unknown) (no (unknown) (unknown) [id number] (units (unkno wn) date) unknown) (unknown) (no (unknown) (unknown) 01/14/23 01/14/23 (units (unknown) date) 01/14/23 unknown) (unknown) (no (unknown) (unknown) 01/14/23 10:45 (units (unknown) date) unknown) (unknown) (no (unknown) (unknown) 01/14/23 (units (unkno wn) date) unknown) (unknown) (no (unknown) (unknown) 1. Found down, (units (unknown) date) fall, with head unknown) injury, and encephalopathy, acute, present on (unknown) (no (unknown) (unknown) 10:45 10:45 10:45 (units (unknown) date) unknown) (unknown) (no (unknown) (unknown) 10:45 11:23 13:48 (units (unknown) date) unknown) (unknown) (no (unknown) (unknown) 14:09 14:09 15:25 (units (unknown) date) unknown) (unknown) (no (unknown) (unknown) 15:00 01/14/23 (units (unknown) date) unknown) (unknown) (no (unknown) (unknown) 15:02 01/14/23 (units (unknown) date) unknown) (unknown) (no (unknown) (unknown) 15:02 (units (unkno wn) date) unknown) (unknown) (no (unknown) (unknown) 15:30 01/14/23 (units (unknown) date) unknown) (unknown) (no (unknown) (unknown) 16:00 01/14/23 (units (unknown) date) unknown) (unknown) (no (unknown) (unknown) 16:00 (units (unkno wn) date) unknown) (unknown) (no (unknown) (unknown) 16:30 01/14/23 (units (unknown) date) unknown) (unknown) (no (unknown) (unknown) 17:00 01/14/23 (units (unknown) date) unknown) (unknown) (no (unknown) (unknown) 17:00 (units (unkno wn) date) unknown) (unknown) (no (unknown) (unknown) 17:30 01/14/23 (units (unknown) date) unknown) (unknown) (no (unknown) (unknown) 17:30 (units (unkno wn) date) unknown) (unknown) (no (unknown) (unknown) 18:00 01/14/23 (units (unknown) date) unknown) (unknown) (no (unknown) (unknown) 18:15 (units (unkno wn) date) unknown) (unknown) (no (unknown) (unknown) 18:30 01/14/23 (units (unknown) date) unknown) (unknown) (no (unknown) (unknown) 18:30 (units (unkno wn) date) unknown) (unknown) (no (unknown) (unknown) 19:00 01/14/23 (units (unknown) date) unknown) (unknown) (no (unknown) (unknown) 19:15 01/14/23 (units (unknown) date) unknown) (unknown) (no (unknown) (unknown) 19:15 (units (unkno wn) date) unknown) (unknown) (no (unknown) (unknown) 19:20 01/14/23 (units (unknown) date) unknown) (unknown) (no (unknown) (unknown) 19:20 (units (unkno wn) date) unknown) (unknown) (no (unknown) (unknown) 19:25 01/14/23 (units (unknown) date) unknown) (unknown) (no (unknown) (unknown) 19:30 01/14/23 (units (unknown) date) unknown) (unknown) (no (unknown) (unknown) 19:30 (units (unkno wn) date) unknown) (unknown) (no (unknown) (unknown) 19:34 01/14/23 (units (unknown) date) unknown) (unknown) (no (unknown) (unknown) 19:35 01/14/23 (units (unknown) date) unknown) (unknown) (no (unknown) (unknown) 19:35 (units (unkno wn) date) unknown) (unknown) (no (unknown) (unknown) 19:40 01/14/23 (units (unknown) date) unknown) (unknown) (no (unknown) (unknown) 19:40 (units (unkno wn) date) unknown) (unknown) (no (unknown) (unknown) 19:45 01/14/23 (units (unknown) date) unknown) (unknown) (no (unknown) (unknown) 19:50 01/14/23 (units (unknown) date) unknown) (unknown) (no (unknown) (unknown) 19:50 (units (unkno wn) date) unknown) (unknown) (no (unknown) (unknown) 19:55 01/14/23 (units (unknown) date) unknown) (unknown) (no (unknown) (unknown) 19:55 (units (unkno wn) date) unknown) (unknown) (no (unknown) (unknown) 20:00 01/14/23 (units (unknown) date) unknown) (unknown) (no (unknown) (unknown) 20:05 01/14/23 (units (unknown) date) unknown) (unknown) (no (unknown) (unknown) 20:05 (units (unkno wn) date) unknown) (unknown) (no (unknown) (unknown) 20:30 01/14/23 (units (unknown) date) unknown) (unknown) (no (unknown) (unknown) 20:30 (units (unkno wn) date) unknown) (unknown) (no (unknown) (unknown) 21:00 01/14/23 (units (unknown) date) unknown) (unknown) (no (unknown) (unknown) 21:30 01/14/23 (units (unknown) date) unknown) (unknown) (no (unknown) (unknown) 21:30 (units (unkno wn) date) unknown) (unknown) (no (unknown) (unknown) 22:00 01/14/23 (units (unknown) date) unknown) (unknown) (no (unknown) (unknown) 22:25 (units (unkno wn) date) unknown) (unknown) (no (unknown) (unknown) AGE 12YR (units (unkno wn) date) unknown) (unknown) (no (unknown) (unknown) ALT 88 H (units (unkno wn) date) unknown) (unknown) (no (unknown) (unknown) ALT (units (unkno wn) date) unknown) (unknown) (no (unknown) (unknown) APTT 34 (units (unkno wn) date) unknown) (unknown) (no (unknown) (unknown) APTT (units (unkno wn) date) unknown) (unknown) (no (unknown) (unknown) AST 87 H (units (unkno wn) date) unknown) (unknown) (no (unknown) (unknown) AST (units (unkno wn) date) unknown) (unknown) (no (unknown) (unknown) Abdomen: Soft (units ( unknown) date) nontender, negative unknown) for organomegaly, or masses. Bowel sounds (unknown) (no (unknown) (unknown) Age/Sex: 53 / M (units (unknown) date) unknown) (unknown) (no (unknown) (unknown) Albumin 4.0 (units (un known) date) unknown) (unknown) (no (unknown) (unknown) Albumin (units (unkno wn) date) unknown) (unknown) (no (unknown) (unknown) Albumin/Globulin (units (unknown) date) Ratio 1.3 unknown) (unknown) (no (unknown) (unknown) Albumin/Globulin (units (unknown) date) Ratio unknown) (unknown) (no (unknown) (unknown) Alcohol (units (unkno wn) date) intoxication unknown) (unknown) (no (unknown) (unknown) Alkaline (units (unkno wn) date) Phosphatase 146 H unknown) (unknown) (no (unknown) (unknown) Alkaline (units (unkno wn) date) Phosphatase unknown) (unknown) (no (unknown) (unknown) Allergies (units (unkn own) date) unknown) (unknown) (no (unknown) (unknown) Allergy/AdvReac (units (unknown) date) Type Severity unknown) Reaction Status Date / Time (unknown) (no (unknown) (unknown) Antibody Screen (units (unknown) date) Negative unknown) (unknown) (no (unknown) (unknown) Antibody Screen (units (unknown) date) unknown) (unknown) (no (unknown) (unknown) Assessment + Plan (units (unknown) date) narrative: unknown) (unknown) (no (unknown) (unknown) Assessment + Plan (units (unknown) date) unknown) (unknown) (no (unknown) (unknown) BPH (benign (units (un known) date) prostatic unknown) hyperplasia) (unknown) (no (unknown) (unknown) BUN 8 L (units (unkno wn) date) unknown) (unknown) (no (unknown) (unknown) BUN (units (unkno wn) date) unknown) (unknown) (no (unknown) (unknown) BUN/Creatinine (units (unknown) date) Ratio 19.0 unknown) (unknown) (no (unknown) (unknown) BUN/Creatinine (units (unknown) date) Ratio unknown) (unknown) (no (unknown) (unknown) BURNING' (units (unkno wn) date) unknown) (unknown) (no (unknown) (unknown) Baso # (Auto) 100 (units (unknown) date) unknown) (unknown) (no (unknown) (unknown) Baso # (Auto) (units ( unknown) date) unknown) (unknown) (no (unknown) (unknown) Baso % (Auto) 1.4 (units (unknown) date) unknown) (unknown) (no (unknown) (unknown) Baso % (Auto) (units ( unknown) date) unknown) (unknown) (no (unknown) (unknown) Blood Pressure (units (unknown) date) 106/52 L 113/56 L unknown) (unknown) (no (unknown) (unknown) Blood Pressure (units (unknown) date) 121/73 unknown) (unknown) (no (unknown) (unknown) Blood Pressure (units (unknown) date) 129/80 138/76 unknown) (unknown) (no (unknown) (unknown) Blood Pressure (units (unknown) date) 130/82 162/103 H unknown) (unknown) (no (unknown) (unknown) Blood Pressure (units (unknown) date) 132/96 H 169/93 H unknown) (unknown) (no (unknown) (unknown) Blood Pressure (units (unknown) date) 137/72 unknown) (unknown) (no (unknown) (unknown) Blood Pressure (units (unknown) date) 137/85 unknown) (unknown) (no (unknown) (unknown) Blood Pressure (units (unknown) date) 138/102 H 130/92 H unknown) (unknown) (no (unknown) (unknown) Blood Pressure (units (unknown) date) 142/89 H unknown) (unknown) (no (unknown) (unknown) Blood Pressure (units (unknown) date) 143/94 H 141/93 H unknown) (unknown) (no (unknown) (unknown) Blood Pressure (units (unknown) date) 148/82 H unknown) (unknown) (no (unknown) (unknown) Blood Pressure (units (unknown) date) 155/95 H 124/84 unknown) (unknown) (no (unknown) (unknown) Blood Pressure (units (unknown) date) 158/95 H unknown) (unknown) (no (unknown) (unknown) Blood Pressure (units (unknown) date) 172/88 H unknown) (unknown) (no (unknown) (unknown) Blood Pressure (units (unknown) date) 175/108 H unknown) (unknown) (no (unknown) (unknown) Blood Pressure (units (unknown) date) unknown) (unknown) (no (unknown) (unknown) Blood Type O (units (u nknown) date) Positive unknown) (unknown) (no (unknown) (unknown) Blood Type (units (unk nown) date) unknown) (unknown) (no (unknown) (unknown) Calcium 8.5 (units (un known) date) unknown) (unknown) (no (unknown) (unknown) Calcium (units (unkno wn) date) unknown) (unknown) (no (unknown) (unknown) Carbon Dioxide 30 (units (unknown) date) unknown) (unknown) (no (unknown) (unknown) Carbon Dioxide (units (unknown) date) unknown) (unknown) (no (unknown) (unknown) Cardio: regular (units (unknown) date) rate and rhythm unknown) without murmur, rubs, or gallops, no carotid (unknown) (no (unknown) (unknown) Chest: Breathing (units (unknown) date) no nasal flaring, unknown) retractions, or tachypneic labored (unknown) (no (unknown) (unknown) Chief complaint: (units (unknown) date) Trauma unknown) (unknown) (no (unknown) (unknown) Chloride 100 (units (u nknown) date) unknown) (unknown) (no (unknown) (unknown) Chloride (units (unkno wn) date) unknown) (unknown) (no (unknown) (unknown) Chronic low back (units (unknown) date) pain unknown) (unknown) (no (unknown) (unknown) Comment: (units (unkno wn) date) unknown) (unknown) (no (unknown) (unknown) Congestive heart (units (unknown) date) failure unknown) (unknown) (no (unknown) (unknown) Creatinine 0.42 L (units (unknown) date) unknown) (unknown) (no (unknown) (unknown) Creatinine (units (unk nown) date) unknown) (unknown) (no (unknown) (unknown) : 1970 (units (unknown) date) Acct:[id number] unknown) (unknown) (no (unknown) (unknown) Date Patient Seen: (units (unknown) date) 01/14/23 unknown) (unknown) (no (unknown) (unknown) Date of Service: (units (unknown) date) 01/14/23 unknown) (unknown) (no (unknown) (unknown) Drinks a 5th of (units (unknown) date) vodka daily unknown) (unknown) (no (unknown) (unknown) ED made multiple (units (unknown) date) attempts to unknown) transfer patient for detox, but was refused due to (unknown) (no (unknown) (unknown) Eos # (Auto) 100 (units (unknown) date) unknown) (unknown) (no (unknown) (unknown) Eos # (Auto) (units (u nknown) date) unknown) (unknown) (no (unknown) (unknown) Eos % (Auto) 2.2 (units (unknown) date) unknown) (unknown) (no (unknown) (unknown) Eos % (Auto) (units (u nknown) date) unknown) (unknown) (no (unknown) (unknown) Essential (units (unkn own) date) hypertension unknown) (unknown) (no (unknown) (unknown) Estimated GFR > 60 (units (unknown) date) unknown) (unknown) (no (unknown) (unknown) Estimated GFR (units ( unknown) date) unknown) (unknown) (no (unknown) (unknown) Ethyl Alcohol 308 (units (unknown) date) H unknown) (unknown) (no (unknown) (unknown) Ethyl Alcohol 91 H (units (unknown) date) unknown) (unknown) (no (unknown) (unknown) Ethyl Alcohol (units ( unknown) date) unknown) (unknown) (no (unknown) (unknown) Exam Narrative: (units (unknown) date) unknown) (unknown) (no (unknown) (unknown) Exam (units (unkno wn) date) unknown) (unknown) (no (unknown) (unknown) FEELS LIKE (units (unk nown) date) unknown) (unknown) (no (unknown) (unknown) Family History (units (unknown) date) (Updated 01/15/23 @ unknown) 02:24 by Genesis Dunn [facility]) (unknown) (no (unknown) (unknown) Father Diabetes (units (unknown) date) mellitus unknown) (unknown) (no (unknown) (unknown) General: Patient (units (unknown) date) is disheveled, unknown) appears chronically ill and unwell, with (unknown) (no (unknown) (unknown) Globulin 3.2 (units (u nknown) date) unknown) (unknown) (no (unknown) (unknown) Globulin (units (unkno wn) date) unknown) (unknown) (no (unknown) (unknown) Glucose 254 H (units ( unknown) date) unknown) (unknown) (no (unknown) (unknown) Glucose (units (unkno wn) date) unknown) (unknown) (no (unknown) (unknown) HEARING (units (unkno wn) date) unknown) (unknown) (no (unknown) (unknown) HEENT: (units (unkno wn) date) Normocephalic, unknown) extraocular muscles intact, oral pharynx is clear and (unknown) (no (unknown) (unknown) HLD, BPH, (units (unkno wn) date) insulin-dependent unknown) diabetes and chronic low back pain tx with InterStim (unknown) (no (unknown) (unknown) Hct 36.9 L (units (unk nown) date) unknown) (unknown) (no (unknown) (unknown) Hct (units (unkno wn) date) unknown) (unknown) (no (unknown) (unknown) Hgb 12.3 L (units (unk nown) date) unknown) (unknown) (no (unknown) (unknown) Hgb (units (unkno wn) date) unknown) (unknown) (no (unknown) (unknown) History + Physical (units (unknown) date) Report unknown) (unknown) (no (unknown) (unknown) History of Present (units (unknown) date) Illness unknown) (unknown) (no (unknown) (unknown) History of (units (unk nown) date) shoulder surgery unknown) (unknown) (no (unknown) (unknown) History (units (unkno wn) date) unknown) (unknown) (no (unknown) (unknown) Home Medications (units (unknown) date) and Allergies unknown) (unknown) (no (unknown) (unknown) Home Medications (units (unknown) date) unknown) (unknown) (no (unknown) (unknown) Hyperlipidemia due (units (unknown) date) to type 1 diabetes unknown) mellitus (unknown) (no (unknown) (unknown) INR 1.0 (units (unkno wn) date) unknown) (unknown) (no (unknown) (unknown) INR (units (unkno wn) date) unknown) (unknown) (no (unknown) (unknown) [facility] (units (unknown) date) [address] unknown) [place] [address] (unknown) (no (unknown) (unknown) JVD (units (unkno wn) date) unknown) (unknown) (no (unknown) (unknown) LOSS AT (units (unkno wn) date) unknown) (unknown) (no (unknown) (unknown) Laboratory Results (units (unknown) date) - last 24 hr unknown) (unknown) (no (unknown) (unknown) Labs (units (unkno wn) date) unknown) (unknown) (no (unknown) (unknown) Labs: (units (unkno wn) date) unknown) (unknown) (no (unknown) (unknown) Lactate 2.1 1.9 (units (unknown) date) unknown) (unknown) (no (unknown) (unknown) Lactate (units (unkno wn) date) unknown) (unknown) (no (unknown) (unknown) Lipase 109 (units (unk nown) date) unknown) (unknown) (no (unknown) (unknown) Lipase (units (unkno wn) date) unknown) (unknown) (no (unknown) (unknown) Lungs: (units (unkno wn) date) Auscultation of all unknown) lung lopez are clear without adventitious sounds, (unknown) (no (unknown) (unknown) Lymph # (Auto) (units (unknown) date) 1700 unknown) (unknown) (no (unknown) (unknown) Lymph # (Auto) (units (unknown) date) unknown) (unknown) (no (unknown) (unknown) Lymph % (Auto) (units (unknown) date) 39.1 unknown) (unknown) (no (unknown) (unknown) Lymph % (Auto) (units (unknown) date) unknown) (unknown) (no (unknown) (unknown) MCH 32.5 (units (unkno wn) date) unknown) (unknown) (no (unknown) (unknown) MCH (units (unkno wn) date) unknown) (unknown) (no (unknown) (unknown) MCHC 33.5 (units (unkn own) date) unknown) (unknown) (no (unknown) (unknown) MCHC (units (unkno wn) date) unknown) (unknown) (no (unknown) (unknown) MCV 97.1 (units (unkno wn) date) unknown) (unknown) (no (unknown) (unknown) MCV (units (unkno wn) date) unknown) (unknown) (no (unknown) (unknown) Medical History (units (unknown) date) (Reviewed 01/15/23 unknown) @ 02:22 by Genesis Dunn [facility]) (unknown) (no (unknown) (unknown) Medication (units (unk nown) date) Instructions unknown) Recorded Confirmed Type (unknown) (no (unknown) (unknown) Meds (units (unkno wn) date) unknown) (unknown) (no (unknown) (unknown) Octavio Romo is a (units (unknown) date) 53-year-old male unknown) with known history of alcohol abuse, HTN, (unknown) (no (unknown) (unknown) Micro UA Comment (units (unknown) date) Microscopic normal unknown) (unknown) (no (unknown) (unknown) Micro UA Comment (units (unknown) date) unknown) (unknown) (no (unknown) (unknown) Pender # (Auto) 600 (units (unknown) date) unknown) (unknown) (no (unknown) (unknown) Pender # (Auto) (units ( unknown) date) unknown) (unknown) (no (unknown) (unknown) Pender % (Auto) 14.9 (units (unknown) date) H unknown) (unknown) (no (unknown) (unknown) Pender % (Auto) (units ( unknown) date) unknown) (unknown) (no (unknown) (unknown) Mother (units (unknown) date) Diabetes mellitus unknown) (unknown) (no (unknown) (unknown) Multiple falls (units (unknown) date) unknown) (unknown) (no (unknown) (unknown) Musculoskeletal: (units (unknown) date) Muscle strength and unknown) tone appear wasting, no deformity, (unknown) (no (unknown) (unknown) Narrative (units (unkn own) date) unknown) (unknown) (no (unknown) (unknown) Narrative: (units (unk nown) date) unknown) (unknown) (no (unknown) (unknown) Neuro: Alert to (units (unknown) date) self, confused, unknown) moves all extremities, sensation to touch (unknown) (no (unknown) (unknown) Neut # (Auto) 1800 (units (unknown) date) unknown) (unknown) (no (unknown) (unknown) Neut # (Auto) (units ( unknown) date) unknown) (unknown) (no (unknown) (unknown) Neut % (Auto) 42.4 (units (unknown) date) L unknown) (unknown) (no (unknown) (unknown) Neut % (Auto) (units ( unknown) date) unknown) (unknown) (no (unknown) (unknown) Objective (units (unkn own) date) unknown) (unknown) (no (unknown) (unknown) Oxygen Delivery (units (unknown) date) Method Room Air unknown) (unknown) (no (unknown) (unknown) Oxygen Delivery (units (unknown) date) Method unknown) (unknown) (no (unknown) (unknown) PFSH (units (unkno wn) date) unknown) (unknown) (no (unknown) (unknown) PT 11.2 (units (unkno wn) date) unknown) (unknown) (no (unknown) (unknown) PT (units (unkno wn) date) unknown) (unknown) (no (unknown) (unknown) Patient: (units (unkno wn) date) Octavio Romo [place] unknown) MR#: [id number] (unknown) (no (unknown) (unknown) Plt Count 296 (units ( unknown) date) unknown) (unknown) (no (unknown) (unknown) Plt Count (units (unkn own) date) unknown) (unknown) (no (unknown) (unknown) Potassium 3.9 (units ( unknown) date) unknown) (unknown) (no (unknown) (unknown) Potassium (units (unkn own) date) unknown) (unknown) (no (unknown) (unknown) Provider: (units (unkn own) date) Genesis Dunn unknown) 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 (unknown) (no (unknown) (unknown) Psych: Patient has (units (unknown) date) a poor kept unknown) appearance, calm inappropriate affect-does not (unknown) (no (unknown) (unknown) Pulse Oximetry 91 (units (unknown) date) 96 unknown) (unknown) (no (unknown) (unknown) Pulse Oximetry 92 (units (unknown) date) unknown) (unknown) (no (unknown) (unknown) Pulse Oximetry 94 (units (unknown) date) 94 unknown) (unknown) (no (unknown) (unknown) Pulse Oximetry 94 (units (unknown) date) 95 unknown) (unknown) (no (unknown) (unknown) Pulse Oximetry 94 (units (unknown) date) 96 unknown) (unknown) (no (unknown) (unknown) Pulse Oximetry 94 (units (unknown) date) unknown) (unknown) (no (unknown) (unknown) Pulse Oximetry 95 (units (unknown) date) 95 100 unknown) (unknown) (no (unknown) (unknown) Pulse Oximetry 95 (units (unknown) date) 96 unknown) (unknown) (no (unknown) (unknown) Pulse Oximetry 95 (units (unknown) date) unknown) (unknown) (no (unknown) (unknown) Pulse Oximetry 96 (units (unknown) date) 94 unknown) (unknown) (no (unknown) (unknown) Pulse Oximetry 96 (units (unknown) date) 96 unknown) (unknown) (no (unknown) (unknown) Pulse Oximetry 96 (units (unknown) date) unknown) (unknown) (no (unknown) (unknown) Pulse Rate 156 H (units (unknown) date) unknown) (unknown) (no (unknown) (unknown) Pulse Rate 69 (units ( unknown) date) unknown) (unknown) (no (unknown) (unknown) Pulse Rate 71 (units ( unknown) date) unknown) (unknown) (no (unknown) (unknown) Pulse Rate 74 101 (units (unknown) date) H unknown) (unknown) (no (unknown) (unknown) Pulse Rate 74 (units ( unknown) date) unknown) (unknown) (no (unknown) (unknown) Pulse Rate 75 (units ( unknown) date) unknown) (unknown) (no (unknown) (unknown) Pulse Rate 77 (units ( unknown) date) unknown) (unknown) (no (unknown) (unknown) Pulse Rate 78 60 (units (unknown) date) 57 L unknown) (unknown) (no (unknown) (unknown) Pulse Rate 78 74 (units (unknown) date) unknown) (unknown) (no (unknown) (unknown) Pulse Rate 81 77 (units (unknown) date) unknown) (unknown) (no (unknown) (unknown) Pulse Rate 83 80 (units (unknown) date) unknown) (unknown) (no (unknown) (unknown) Pulse Rate 85 78 (units (unknown) date) 168 H unknown) (unknown) (no (unknown) (unknown) Pulse Rate 89 94 H (units (unknown) date) unknown) (unknown) (no (unknown) (unknown) Pulse Rate 93 H 78 (units (unknown) date) unknown) (unknown) (no (unknown) (unknown) Pulse Rate 97 H 96 (units (unknown) date) H unknown) (unknown) (no (unknown) (unknown) RBC 3.80 L (units (unk nown) date) unknown) (unknown) (no (unknown) (unknown) RBC (units (unkno wn) date) unknown) (unknown) (no (unknown) (unknown) RDW 13.2 (units (unkno wn) date) unknown) (unknown) (no (unknown) (unknown) RDW (units (unkno wn) date) unknown) (unknown) (no (unknown) (unknown) Respiratory Rate (units (unknown) date) 10 L unknown) (unknown) (no (unknown) (unknown) Respiratory Rate (units (unknown) date) 11 L unknown) (unknown) (no (unknown) (unknown) Respiratory Rate (units (unknown) date) 13 13 unknown) (unknown) (no (unknown) (unknown) Respiratory Rate (units (unknown) date) 13 unknown) (unknown) (no (unknown) (unknown) Respiratory Rate (units (unknown) date) 14 14 unknown) (unknown) (no (unknown) (unknown) Respiratory Rate (units (unknown) date) 14 23 unknown) (unknown) (no (unknown) (unknown) Respiratory Rate (units (unknown) date) 14 unknown) (unknown) (no (unknown) (unknown) Respiratory Rate (units (unknown) date) 15 unknown) (unknown) (no (unknown) (unknown) Respiratory Rate (units (unknown) date) 16 unknown) (unknown) (no (unknown) (unknown) Respiratory Rate (units (unknown) date) 18 0 L 17 unknown) (unknown) (no (unknown) (unknown) Respiratory Rate (units (unknown) date) 19 15 unknown) (unknown) (no (unknown) (unknown) Respiratory Rate (units (unknown) date) 19 18 20 unknown) (unknown) (no (unknown) (unknown) Respiratory Rate (units (unknown) date) 24 17 unknown) (unknown) (no (unknown) (unknown) Respiratory Rate (units (unknown) date) unknown) (unknown) (no (unknown) (unknown) Review of Systems (units (unknown) date) unknown) (unknown) (no (unknown) (unknown) SARS-CoV-2 (PCR) (units (unknown) date) Negative unknown) (unknown) (no (unknown) (unknown) SARS-CoV-2 (PCR) (units (unknown) date) unknown) (unknown) (no (unknown) (unknown) Signed By: (units (unk nown) date) unknown) (unknown) (no (unknown) (unknown) Skin: scabbed (units ( unknown) date) superficial unknown) laceration over his right forehead, small burn right (unknown) (no (unknown) (unknown) Smoking Status: (units (unknown) date) Never smoker unknown) (unknown) (no (unknown) (unknown) Social History (units (unknown) date) (Updated 01/15/23 @ unknown) 02:23 by DOUG Chairez) (unknown) (no (unknown) (unknown) Sodium 140 (units (unk nown) date) unknown) (unknown) (no (unknown) (unknown) Sodium (units (unkno wn) date) unknown) (unknown) (no (unknown) (unknown) Solostar U-100 (units (unknown) date) Insulin) unknown) (unknown) (no (unknown) (unknown) Surgical History (units (unknown) date) (Reviewed 01/15/23 unknown) @ 02:22 by Genesis Dunn [facility]) (unknown) (no (unknown) (unknown) Time Patient Seen: (units (unknown) date) 22:42 unknown) (unknown) (no (unknown) (unknown) Total Bilirubin (units (unknown) date) 0.4 unknown) (unknown) (no (unknown) (unknown) Total Bilirubin (units (unknown) date) unknown) (unknown) (no (unknown) (unknown) Total Protein 7.2 (units (unknown) date) unknown) (unknown) (no (unknown) (unknown) Total Protein (units ( unknown) date) unknown) (unknown) (no (unknown) (unknown) U Benzodiazepines (units (unknown) date) Scrn Positive H unknown) (unknown) (no (unknown) (unknown) U Benzodiazepines (units (unknown) date) Scrn unknown) (unknown) (no (unknown) (unknown) U Marijuana (THC) (units (unknown) date) Screen Negative unknown) (unknown) (no (unknown) (unknown) U Marijuana (THC) (units (unknown) date) Screen unknown) (unknown) (no (unknown) (unknown) U Methamphetamines (units (unknown) date) Scrn Negative unknown) (unknown) (no (unknown) (unknown) U Methamphetamines (units (unknown) date) Scrn unknown) (unknown) (no (unknown) (unknown) U Opiates 300ng/mL (units (unknown) date) cut Positive H unknown) (unknown) (no (unknown) (unknown) U Opiates 300ng/mL (units (unknown) date) cut unknown) (unknown) (no (unknown) (unknown) U Tricyclic (units (un known) date) Antidepress unknown) Negative (unknown) (no (unknown) (unknown) U Tricyclic (units (un known) date) Antidepress unknown) (unknown) (no (unknown) (unknown) Unable to obtain (units (unknown) date) accurate ROS due to unknown) encephalopathy-All 12 point systems (unknown) (no (unknown) (unknown) Ur Amphetamines (units (unknown) date) Screen Negative unknown) (unknown) (no (unknown) (unknown) Ur Amphetamines (units (unknown) date) Screen unknown) (unknown) (no (unknown) (unknown) Ur Barbiturates (units (unknown) date) Screen Negative unknown) (unknown) (no (unknown) (unknown) Ur Barbiturates (units (unknown) date) Screen unknown) (unknown) (no (unknown) (unknown) Ur Culture (units (unk nown) date) Indicated? Cult not unknown) indicated (unknown) (no (unknown) (unknown) Ur Culture (units (unk nown) date) Indicated? unknown) (unknown) (no (unknown) (unknown) Ur Leukocyte (units (u nknown) date) Esterase Negative unknown) (unknown) (no (unknown) (unknown) Ur Leukocyte (units (u nknown) date) Esterase unknown) (unknown) (no (unknown) (unknown) Ur MDMA Scrn (units (u nknown) date) (Ecstasy) Negative unknown) (unknown) (no (unknown) (unknown) Ur MDMA Scrn (units (u nknown) date) (Ecstasy) unknown) (unknown) (no (unknown) (unknown) Ur Oxycodone (units (u nknown) date) Screen Negative unknown) (unknown) (no (unknown) (unknown) Ur Oxycodone (units (u nknown) date) Screen unknown) (unknown) (no (unknown) (unknown) Ur Phencyclidine (units (unknown) date) Scrn Negative unknown) (unknown) (no (unknown) (unknown) Ur Phencyclidine (units (unknown) date) Scrn unknown) (unknown) (no (unknown) (unknown) Ur Specific (units (un known) date) [place] 1.010 unknown) (unknown) (no (unknown) (unknown) Ur Specific (units (un known) date) [place] unknown) (unknown) (no (unknown) (unknown) Urine Appearance (units (unknown) date) Clear unknown) (unknown) (no (unknown) (unknown) Urine Appearance (units (unknown) date) unknown) (unknown) (no (unknown) (unknown) Urine Bacteria (units (unknown) date) None seen unknown) (unknown) (no (unknown) (unknown) Urine Bacteria (units (unknown) date) unknown) (unknown) (no (unknown) (unknown) Urine Bilirubin (units (unknown) date) Negative unknown) (unknown) (no (unknown) (unknown) Urine Bilirubin (units (unknown) date) unknown) (unknown) (no (unknown) (unknown) Urine Cocaine (units ( unknown) date) Screen Negative unknown) (unknown) (no (unknown) (unknown) Urine Cocaine (units ( unknown) date) Screen unknown) (unknown) (no (unknown) (unknown) Urine Color Yellow (units (unknown) date) unknown) (unknown) (no (unknown) (unknown) Urine Color (units (un known) date) unknown) (unknown) (no (unknown) (unknown) Urine Glucose (UA) (units (unknown) date) 2+ H unknown) (unknown) (no (unknown) (unknown) Urine Glucose (UA) (units (unknown) date) unknown) (unknown) (no (unknown) (unknown) Urine Ketones (units ( unknown) date) Negative unknown) (unknown) (no (unknown) (unknown) Urine Ketones (units ( unknown) date) unknown) (unknown) (no (unknown) (unknown) Urine Methadone (units (unknown) date) Screen Negative unknown) (unknown) (no (unknown) (unknown) Urine Methadone (units (unknown) date) Screen unknown) (unknown) (no (unknown) (unknown) Urine Nitrate (units ( unknown) date) Negative unknown) (unknown) (no (unknown) (unknown) Urine Nitrate (units ( unknown) date) unknown) (unknown) (no (unknown) (unknown) Urine Occult Blood (units (unknown) date) Negative unknown) (unknown) (no (unknown) (unknown) Urine Occult Blood (units (unknown) date) unknown) (unknown) (no (unknown) (unknown) Urine Protein (units ( unknown) date) Negative unknown) (unknown) (no (unknown) (unknown) Urine Protein (units ( unknown) date) unknown) (unknown) (no (unknown) (unknown) Urine RBC None (units (unknown) date) seen unknown) (unknown) (no (unknown) (unknown) Urine RBC (units (unkn own) date) unknown) (unknown) (no (unknown) (unknown) Urine Urobilinogen (units (unknown) date) 1.0 unknown) (unknown) (no (unknown) (unknown) Urine Urobilinogen (units (unknown) date) unknown) (unknown) (no (unknown) (unknown) Urine WBC None (units (unknown) date) seen unknown) (unknown) (no (unknown) (unknown) Urine WBC (units (unkn own) date) unknown) (unknown) (no (unknown) (unknown) Urine pH 6.5 (units (u nknown) date) unknown) (unknown) (no (unknown) (unknown) Urine pH (units (unkno wn) date) unknown) (unknown) (no (unknown) (unknown) Vital Signs (units (un known) date) unknown) (unknown) (no (unknown) (unknown) WAS (units (unkno wn) date) unknown) (unknown) (no (unknown) (unknown) WBC 4.3 L (units (unkn own) date) unknown) (unknown) (no (unknown) (unknown) WBC (units (unkno wn) date) unknown) (unknown) (no (unknown) (unknown) When asked on (units ( unknown) date) admit regarding unknown) code status patient requested to be a full code, (unknown) (no (unknown) (unknown) [Embedded Image (units (unknown) date) Not Available] unknown) (unknown) (no (unknown) (unknown) [From BETADINE] (units (unknown) date) FEELS LIKE unknown) (unknown) (no (unknown) (unknown) [SHELLFISH (units (unk nown) date) DERIVED] LIKE IT unknown) (unknown) (no (unknown) (unknown) acute distress at (units (unknown) date) this time. unknown) (unknown) (no (unknown) (unknown) adenopathy, no (units (unknown) date) thyroid unknown) enlargement, nontender, no masses palpated. Negative for (unknown) (no (unknown) (unknown) admission (units (unkn own) date) unknown) (unknown) (no (unknown) (unknown) admit patient is (units (unknown) date) unable to state unknown) where he is unable to recall how or when he (unknown) (no (unknown) (unknown) alcohol intake: (units (unknown) date) current unknown) (unknown) (no (unknown) (unknown) and L1/L2 (units (unkn own) date) transverse process unknown) fracture. (unknown) (no (unknown) (unknown) and denied suicide (units (unknown) date) ideation. patient unknown) is hemodynamically stable pleasant (unknown) (no (unknown) (unknown) anterior lower (units (unknown) date) extremity, unknown) significant deep bruising to lower coccyx area. (unknown) (no (unknown) (unknown) appear to (units (unkn own) date) appreciate severity unknown) of injuries and state of health, mental status (unknown) (no (unknown) (unknown) are present in all (units (unknown) date) 4 quadrants without unknown) guarding or rebound, no CVA tenderness. (unknown) (no (unknown) (unknown) atorvastatin 40 mg (units (unknown) date) tablet 40 mg PO unknown) BEDTIME 01/14/23 01/14/23 History (unknown) (no (unknown) (unknown) attempts to (units (un known) date) transfer patient unknown) for detox, but was refused due to hyperglycemia, (unknown) (no (unknown) (unknown) attitude thought (units (unknown) date) context and unknown) judgment are in appropriate for age. (unknown) (no (unknown) (unknown) been called to the (units (unknown) date) patient's home unknown) several times over the last few days, he was (unknown) (no (unknown) (unknown) blood and broken (units (unknown) date) glass around him. unknown) Patient was seen and evaluated by GEOLOGY INSTRUCTOR in the (unknown) (no (unknown) (unknown) bruising left (units (u nknown) date) abdomen, upper abd, unknown) chest, scabbed abrasion to left anterior lower (unknown) (no (unknown) (unknown) bruit, no cardiac (units (unknown) date) pulsations present. unknown) (unknown) (no (unknown) (unknown) converses easily (units (unknown) date) but is confused. unknown) WBC 4.3, H+H 12.3/36.9, initial glucose 344, (unknown) (no (unknown) (unknown) covered in a (units (u nknown) date) variety of multiple unknown) injuries in varying degrees healing, a scabbed (unknown) (no (unknown) (unknown) crepitus, (units (unkn own) date) effusions, unknown) cyanosis, clubbing or edema present. Full range of motion (unknown) (no (unknown) (unknown) dextroamphetamine- (units (unknown) date) amphetamine 20 20 unknown) mg PO BID 01/14/23 01/14/23 History (unknown) (no (unknown) (unknown) did not answer.? (units (unknown) date) Patient was seen unknown) and evaluated by GEOLOGY INSTRUCTOR in the ED made multiple (unknown) (no (unknown) (unknown) diffuse multiple (units (unknown) date) injuries in various unknown) stages of healing from head to toe, in no (unknown) (no (unknown) (unknown) elevated QTC on (units (unknown) date) EKG, and unknown) encephalopathy. Unable to obtain accurate HPI, ROS due (unknown) (no (unknown) (unknown) extremities well.? (units (unknown) date) Is conversant but unknown) confused.? Patient states he drinks at (unknown) (no (unknown) (unknown) extremity, (units (unk nown) date) significant deep unknown) bruising to lower coccyx area. Patient denies (unknown) (no (unknown) (unknown) fall, head injury, (units (unknown) date) atrial unknown) fibrillation, encephalopathy, ETOH abuse/intoxication, (unknown) (no (unknown) (unknown) fall, head injury, (units (unknown) date) encephalopathy, unknown) ETOH abuse/intoxication, hyperglycemia. (unknown) (no (unknown) (unknown) forearm, bruising (units (unknown) date) left abdomen + unknown) upper abd, + chest, scabbed abrasion to left (unknown) (no (unknown) (unknown) found down this (units (unknown) date) evening on the unknown) bathroom floor with broken glass perhaps broken (unknown) (no (unknown) (unknown) furosemide 20 mg (units (unknown) date) tablet 20 mg PO unknown) DAILY 01/14/23 01/14/23 History (unknown) (no (unknown) (unknown) head CT negative, (units (unknown) date) CT of unknown) abdomen/pelvis multiple remote left rib fractures, left (unknown) (no (unknown) (unknown) household members: (units (unknown) date) none unknown) (unknown) (no (unknown) (unknown) hyperglycemia, (units (unknown) date) elevated QTC on unknown) EKG, and encephalopathy. Patient admitted for (unknown) (no (unknown) (unknown) hyperglycemia. (units (unknown) date) unknown) (unknown) (no (unknown) (unknown) insulin glargine (units (unknown) date) 100 unit/mL (3 20 unknown) unit SUBCUT BEDTIME 01/14/23 01/14/23 History (unknown) (no (unknown) (unknown) insulin lispro 100 (units (unknown) date) unit/mL See Rx unknown) Instructions .Route .COMPLEX 01/14/23 01/14/23 (unknown) (no (unknown) (unknown) intact radial and (units (unknown) date) pedal pulses are unknown) normal. (unknown) (no (unknown) (unknown) intact, no gross (units (unknown) date) deficits noted of unknown) cranial nerves. (unknown) (no (unknown) (unknown) kill himself when (units (unknown) date) asked why he did unknown) not answer'? When asked if he has a plan he (unknown) (no (unknown) (unknown) least a 5th of (units (unknown) date) Vodka daily, denies unknown) tobacco or illicit.? Patient is unable to (unknown) (no (unknown) (unknown) losartan 100 mg (units (unknown) date) tablet 100 mg PO unknown) DAILY 01/14/23 01/14/23 History (unknown) (no (unknown) (unknown) mL) subcutaneous (units (unknown) date) pen (Lantus unknown) (unknown) (no (unknown) (unknown) mg tablet (units (unkn own) date) unknown) (unknown) (no (unknown) (unknown) mirror and blood (units (unknown) date) at the scene. unknown) Patient is confused, but redirectable. During (unknown) (no (unknown) (unknown) mucous membranes (units (unknown) date) are dry. Neck is unknown) supple and symmetric, trachea is midline, no (unknown) (no (unknown) (unknown) negative, tox (units ( unknown) date) screen is positive unknown) for opiates and benzos, initial ETOH 308, (unknown) (no (unknown) (unknown) obtain these (units (u nknown) date) injuries in the unknown) events that led him to the hospital today. He is (unknown) (no (unknown) (unknown) pain, no shortness (units (unknown) date) of breath, no GI or unknown) urinary symptoms.? He is moving all his (unknown) (no (unknown) (unknown) penicillin G (units (u nknown) date) [PENICILLIN G] unknown) Allergy Unknown LEFT EAR Verified 07/27/18 10:10 (unknown) (no (unknown) (unknown) povidone-iodine (units (unknown) date) Allergy Unknown unknown) 'SKIN Verified 07/27/18 10:10 (unknown) (no (unknown) (unknown) propranolol 20 mg (units (unknown) date) tablet 20 mg PO BID unknown) 01/14/23 01/14/23 History (unknown) (no (unknown) (unknown) recall what his (units (unknown) date) medications are he unknown) believes he is on insulins but he has no idea (unknown) (no (unknown) (unknown) repeat 254, AST (units (unknown) date) 87, ALT 88, unknown) alk-phos 144, UA negative, lactate negative, lipase (unknown) (no (unknown) (unknown) repeat 91. COVID (units (unknown) date) negative. EKG sinus unknown) rhythm rate 72 QTC 499, without ST or T (unknown) (no (unknown) (unknown) reviewed with the (units (unknown) date) patient and are unknown) negative except otherwise documented. (unknown) (no (unknown) (unknown) scapula fracture, (units (unknown) date) and L1/L2 unknown) transverse process fracture. Patient admitted for (unknown) (no (unknown) (unknown) shellfish derived (units (unknown) date) Allergy Unknown unknown) 'SKIN FELT Verified 07/27/18 10:10 (unknown) (no (unknown) (unknown) soap [From (units (unk nown) date) BETADINE] Allergy unknown) Unknown 'SKIN Verified 07/27/18 10:10 (unknown) (no (unknown) (unknown) stimulator in back (units (unknown) date) lumbar + Dilaudid unknown) pain pump in abdomen found down by EMS (unknown) (no (unknown) (unknown) stimulator in back (units (unknown) date) lumbar + Dilaudid unknown) pain pump in abdomen.? EMS had apparently (unknown) (no (unknown) (unknown) subcutaneous pen (units (unknown) date) (Humalog KwikPen unknown) (unknown) (no (unknown) (unknown) superficial (units (un known) date) laceration over his unknown) right forehead, small burn right forearm, (unknown) (no (unknown) (unknown) tamsulosin 0.4 mg (units (unknown) date) capsule 0.4 mg PO unknown) DAILY 01/14/23 01/14/23 History (unknown) (no (unknown) (unknown) this evening on (units (unknown) date) the bathroom floor unknown) confused, covered in multiple injuries with (unknown) (no (unknown) (unknown) to encephalopathy. (units (unknown) date) ED reported patient unknown) had an episode of atrial fibrillation (unknown) (no (unknown) (unknown) to kill himself to (units (unknown) date) the medics and when unknown) asked in ED he ' stated he did want to (unknown) (no (unknown) (unknown) wave changes. (units ( unknown) date) Chest x-ray unknown) negative, C-spine negative, pelvic x-ray negative, (unknown) (no (unknown) (unknown) wave changes. (units ( unknown) date) unknown) (unknown) (no (unknown) (unknown) wheezes, rhonchi, (units (unknown) date) or rales. unknown) (unknown) (no (unknown) (unknown) when or if he is (units (unknown) date) taken his unknown) medication. He did make statements that he wanted (unknown) (no (unknown) (unknown) which metoprolol (units (unknown) date) was given and unknown) quickly resolved. Result panel 244 (unknown) (no (unknown) (unknown) (no value) (units (unk nown) date) unknown) (unknown) (no (unknown) (unknown) (U-100) Insulin) (units (unknown) date) unknown) (unknown) (no (unknown) (unknown) (past 8 hours): (units (unknown) date) unknown) (unknown) (no (unknown) (unknown) -CT of (units (unkno wn) date) abdomen/pelvis unknown) multiple remote left rib fractures, left scapula fracture, (unknown) (no (unknown) (unknown) -Chest x-ray (units (un known) date) negative, C-spine unknown) negative, pelvic x-ray negative, head CT negative (unknown) (no (unknown) (unknown) -PT/OT consult (units (unknown) date) ordered unknown) (unknown) (no (unknown) (unknown) -brain MR ordered (units (unknown) date) for tomorrow unknown) (unknown) (no (unknown) (unknown) -found down by EMS (units (unknown) date) unknown) (unknown) (no (unknown) (unknown) -given 60 mg IV (units (unknown) date) dose tonight, will unknown) initiate 64mg QID x1 day (unknown) (no (unknown) (unknown) -initial ETOH 344, (units (unknown) date) repeat 254 we will unknown) continue to trend (unknown) (no (unknown) (unknown) -lives alone, (units ( unknown) date) permanently unknown) disabled (unknown) (no (unknown) (unknown) -neuro checks, (units (unknown) date) strict fall unknown) precaution (unknown) (no (unknown) (unknown) -patient admitted (units (unknown) date) under [facility] protocol unknown) (unknown) (no (unknown) (unknown) -was given (units (unk nown) date) phenobarbital unknown) loading dose in ED, (unknown) (no (unknown) (unknown) -will trend ETOH, (units (unknown) date) ordered ammonia, unknown) monitor electrolytes (unknown) (no (unknown) (unknown) [id number] (units (unkno wn) date) unknown) (unknown) (no (unknown) (unknown) 01/14/23 01/14/23 (units (unknown) date) 01/14/23 unknown) (unknown) (no (unknown) (unknown) 01/14/23 10:45 (units (unknown) date) unknown) (unknown) (no (unknown) (unknown) 01/14/23 (units (unkno wn) date) unknown) (unknown) (no (unknown) (unknown) 1. Found down, (units (unknown) date) fall, with head unknown) injury, and encephalopathy, acute, present on (unknown) (no (unknown) (unknown) 10:45 10:45 10:45 (units (unknown) date) unknown) (unknown) (no (unknown) (unknown) 10:45 11:23 13:48 (units (unknown) date) unknown) (unknown) (no (unknown) (unknown) 14:09 14:09 15:25 (units (unknown) date) unknown) (unknown) (no (unknown) (unknown) 15:00 01/14/23 (units (unknown) date) unknown) (unknown) (no (unknown) (unknown) 15:02 01/14/23 (units (unknown) date) unknown) (unknown) (no (unknown) (unknown) 15:02 (units (unkno wn) date) unknown) (unknown) (no (unknown) (unknown) 15:30 01/14/23 (units (unknown) date) unknown) (unknown) (no (unknown) (unknown) 16:00 01/14/23 (units (unknown) date) unknown) (unknown) (no (unknown) (unknown) 16:00 (units (unkno wn) date) unknown) (unknown) (no (unknown) (unknown) 16:30 01/14/23 (units (unknown) date) unknown) (unknown) (no (unknown) (unknown) 17:00 01/14/23 (units (unknown) date) unknown) (unknown) (no (unknown) (unknown) 17:00 (units (unkno wn) date) unknown) (unknown) (no (unknown) (unknown) 17:30 01/14/23 (units (unknown) date) unknown) (unknown) (no (unknown) (unknown) 17:30 (units (unkno wn) date) unknown) (unknown) (no (unknown) (unknown) 18:00 01/14/23 (units (unknown) date) unknown) (unknown) (no (unknown) (unknown) 18:15 (units (unkno wn) date) unknown) (unknown) (no (unknown) (unknown) 18:30 01/14/23 (units (unknown) date) unknown) (unknown) (no (unknown) (unknown) 18:30 (units (unkno wn) date) unknown) (unknown) (no (unknown) (unknown) 19:00 01/14/23 (units (unknown) date) unknown) (unknown) (no (unknown) (unknown) 19:15 01/14/23 (units (unknown) date) unknown) (unknown) (no (unknown) (unknown) 19:15 (units (unkno wn) date) unknown) (unknown) (no (unknown) (unknown) 19:20 01/14/23 (units (unknown) date) unknown) (unknown) (no (unknown) (unknown) 19:20 (units (unkno wn) date) unknown) (unknown) (no (unknown) (unknown) 19:25 01/14/23 (units (unknown) date) unknown) (unknown) (no (unknown) (unknown) 19:30 01/14/23 (units (unknown) date) unknown) (unknown) (no (unknown) (unknown) 19:30 (units (unkno wn) date) unknown) (unknown) (no (unknown) (unknown) 19:34 01/14/23 (units (unknown) date) unknown) (unknown) (no (unknown) (unknown) 19:35 01/14/23 (units (unknown) date) unknown) (unknown) (no (unknown) (unknown) 19:35 (units (unkno wn) date) unknown) (unknown) (no (unknown) (unknown) 19:40 01/14/23 (units (unknown) date) unknown) (unknown) (no (unknown) (unknown) 19:40 (units (unkno wn) date) unknown) (unknown) (no (unknown) (unknown) 19:45 01/14/23 (units (unknown) date) unknown) (unknown) (no (unknown) (unknown) 19:50 01/14/23 (units (unknown) date) unknown) (unknown) (no (unknown) (unknown) 19:50 (units (unkno wn) date) unknown) (unknown) (no (unknown) (unknown) 19:55 01/14/23 (units (unknown) date) unknown) (unknown) (no (unknown) (unknown) 19:55 (units (unkno wn) date) unknown) (unknown) (no (unknown) (unknown) 2. Alcohol abuse, (units (unknown) date) acute on chronic, unknown) alcohol intoxication, acute, present on (unknown) (no (unknown) (unknown) 20:00 01/14/23 (units (unknown) date) unknown) (unknown) (no (unknown) (unknown) 20:05 01/14/23 (units (unknown) date) unknown) (unknown) (no (unknown) (unknown) 20:05 (units (unkno wn) date) unknown) (unknown) (no (unknown) (unknown) 20:30 01/14/23 (units (unknown) date) unknown) (unknown) (no (unknown) (unknown) 20:30 (units (unkno wn) date) unknown) (unknown) (no (unknown) (unknown) 21:00 01/14/23 (units (unknown) date) unknown) (unknown) (no (unknown) (unknown) 21:30 01/14/23 (units (unknown) date) unknown) (unknown) (no (unknown) (unknown) 21:30 (units (unkno wn) date) unknown) (unknown) (no (unknown) (unknown) 22:00 01/14/23 (units (unknown) date) unknown) (unknown) (no (unknown) (unknown) 22:25 (units (unkno wn) date) unknown) (unknown) (no (unknown) (unknown) AGE 12YR (units (unkno wn) date) unknown) (unknown) (no (unknown) (unknown) ALT 88 H (units (unkno wn) date) unknown) (unknown) (no (unknown) (unknown) ALT (units (unkno wn) date) unknown) (unknown) (no (unknown) (unknown) APTT 34 (units (unkno wn) date) unknown) (unknown) (no (unknown) (unknown) APTT (units (unkno wn) date) unknown) (unknown) (no (unknown) (unknown) AST 87 H (units (unkno wn) date) unknown) (unknown) (no (unknown) (unknown) AST (units (unkno wn) date) unknown) (unknown) (no (unknown) (unknown) Abdomen: Soft (units ( unknown) date) nontender, negative unknown) for organomegaly, or masses. Bowel sounds (unknown) (no (unknown) (unknown) Age/Sex: 53 / M (units (unknown) date) unknown) (unknown) (no (unknown) (unknown) Albumin 4.0 (units (un known) date) unknown) (unknown) (no (unknown) (unknown) Albumin (units (unkno wn) date) unknown) (unknown) (no (unknown) (unknown) Albumin/Globulin (units (unknown) date) Ratio 1.3 unknown) (unknown) (no (unknown) (unknown) Albumin/Globulin (units (unknown) date) Ratio unknown) (unknown) (no (unknown) (unknown) Alcohol (units (unkno wn) date) intoxication unknown) (unknown) (no (unknown) (unknown) Alkaline (units (unkno wn) date) Phosphatase 146 H unknown) (unknown) (no (unknown) (unknown) Alkaline (units (unkno wn) date) Phosphatase unknown) (unknown) (no (unknown) (unknown) Allergies (units (unkn own) date) unknown) (unknown) (no (unknown) (unknown) Allergy/AdvReac (units (unknown) date) Type Severity unknown) Reaction Status Date / Time (unknown) (no (unknown) (unknown) Antibody Screen (units (unknown) date) Negative unknown) (unknown) (no (unknown) (unknown) Antibody Screen (units (unknown) date) unknown) (unknown) (no (unknown) (unknown) Assessment + Plan (units (unknown) date) narrative: unknown) (unknown) (no (unknown) (unknown) Assessment + Plan (units (unknown) date) unknown) (unknown) (no (unknown) (unknown) BPH (benign (units (un known) date) prostatic unknown) hyperplasia) (unknown) (no (unknown) (unknown) BUN 8 L (units (unkno wn) date) unknown) (unknown) (no (unknown) (unknown) BUN (units (unkno wn) date) unknown) (unknown) (no (unknown) (unknown) BUN/Creatinine (units (unknown) date) Ratio 19.0 unknown) (unknown) (no (unknown) (unknown) BUN/Creatinine (units (unknown) date) Ratio unknown) (unknown) (no (unknown) (unknown) BURNING' (units (unkno wn) date) unknown) (unknown) (no (unknown) (unknown) Baso # (Auto) 100 (units (unknown) date) unknown) (unknown) (no (unknown) (unknown) Baso # (Auto) (units ( unknown) date) unknown) (unknown) (no (unknown) (unknown) Baso % (Auto) 1.4 (units (unknown) date) unknown) (unknown) (no (unknown) (unknown) Baso % (Auto) (units ( unknown) date) unknown) (unknown) (no (unknown) (unknown) Blood Pressure (units (unknown) date) 106/52 L 113/56 L unknown) (unknown) (no (unknown) (unknown) Blood Pressure (units (unknown) date) 121/73 unknown) (unknown) (no (unknown) (unknown) Blood Pressure (units (unknown) date) 129/80 138/76 unknown) (unknown) (no (unknown) (unknown) Blood Pressure (units (unknown) date) 130/82 162/103 H unknown) (unknown) (no (unknown) (unknown) Blood Pressure (units (unknown) date) 132/96 H 169/93 H unknown) (unknown) (no (unknown) (unknown) Blood Pressure (units (unknown) date) 137/72 unknown) (unknown) (no (unknown) (unknown) Blood Pressure (units (unknown) date) 137/85 unknown) (unknown) (no (unknown) (unknown) Blood Pressure (units (unknown) date) 138/102 H 130/92 H unknown) (unknown) (no (unknown) (unknown) Blood Pressure (units (unknown) date) 142/89 H unknown) (unknown) (no (unknown) (unknown) Blood Pressure (units (unknown) date) 143/94 H 141/93 H unknown) (unknown) (no (unknown) (unknown) Blood Pressure (units (unknown) date) 148/82 H unknown) (unknown) (no (unknown) (unknown) Blood Pressure (units (unknown) date) 155/95 H 124/84 unknown) (unknown) (no (unknown) (unknown) Blood Pressure (units (unknown) date) 158/95 H unknown) (unknown) (no (unknown) (unknown) Blood Pressure (units (unknown) date) 172/88 H unknown) (unknown) (no (unknown) (unknown) Blood Pressure (units (unknown) date) 175/108 H unknown) (unknown) (no (unknown) (unknown) Blood Pressure (units (unknown) date) unknown) (unknown) (no (unknown) (unknown) Blood Type O (units (u nknown) date) Positive unknown) (unknown) (no (unknown) (unknown) Blood Type (units (unk nown) date) unknown) (unknown) (no (unknown) (unknown) Calcium 8.5 (units (un known) date) unknown) (unknown) (no (unknown) (unknown) Calcium (units (unkno wn) date) unknown) (unknown) (no (unknown) (unknown) Carbon Dioxide 30 (units (unknown) date) unknown) (unknown) (no (unknown) (unknown) Carbon Dioxide (units (unknown) date) unknown) (unknown) (no (unknown) (unknown) Cardio: regular (units (unknown) date) rate and rhythm unknown) without murmur, rubs, or gallops, no carotid (unknown) (no (unknown) (unknown) Chest: Breathing (units (unknown) date) no nasal flaring, unknown) retractions, or tachypneic labored (unknown) (no (unknown) (unknown) Chief complaint: (units (unknown) date) Trauma unknown) (unknown) (no (unknown) (unknown) Chloride 100 (units (u nknown) date) unknown) (unknown) (no (unknown) (unknown) Chloride (units (unkno wn) date) unknown) (unknown) (no (unknown) (unknown) Chronic low back (units (unknown) date) pain unknown) (unknown) (no (unknown) (unknown) Comment: (units (unkno wn) date) unknown) (unknown) (no (unknown) (unknown) Congestive heart (units (unknown) date) failure unknown) (unknown) (no (unknown) (unknown) Creatinine 0.42 L (units (unknown) date) unknown) (unknown) (no (unknown) (unknown) Creatinine (units (unk nown) date) unknown) (unknown) (no (unknown) (unknown) : 1970 (units (unknown) date) Acct:[id number] unknown) (unknown) (no (unknown) (unknown) Date Patient Seen: (units (unknown) date) 01/14/23 unknown) (unknown) (no (unknown) (unknown) Date of Service: (units (unknown) date) 01/14/23 unknown) (unknown) (no (unknown) (unknown) Drinks a 5th of (units (unknown) date) vodka daily unknown) (unknown) (no (unknown) (unknown) ED made multiple (units (unknown) date) attempts to unknown) transfer patient for detox, but was refused due to (unknown) (no (unknown) (unknown) Eos # (Auto) 100 (units (unknown) date) unknown) (unknown) (no (unknown) (unknown) Eos # (Auto) (units (u nknown) date) unknown) (unknown) (no (unknown) (unknown) Eos % (Auto) 2.2 (units (unknown) date) unknown) (unknown) (no (unknown) (unknown) Eos % (Auto) (units (u nknown) date) unknown) (unknown) (no (unknown) (unknown) Essential (units (unkn own) date) hypertension unknown) (unknown) (no (unknown) (unknown) Estimated GFR > 60 (units (unknown) date) unknown) (unknown) (no (unknown) (unknown) Estimated GFR (units ( unknown) date) unknown) (unknown) (no (unknown) (unknown) Ethyl Alcohol 308 (units (unknown) date) H unknown) (unknown) (no (unknown) (unknown) Ethyl Alcohol 91 H (units (unknown) date) unknown) (unknown) (no (unknown) (unknown) Ethyl Alcohol (units ( unknown) date) unknown) (unknown) (no (unknown) (unknown) Exam Narrative: (units (unknown) date) unknown) (unknown) (no (unknown) (unknown) Exam (units (unkno wn) date) unknown) (unknown) (no (unknown) (unknown) FEELS LIKE (units (unk nown) date) unknown) (unknown) (no (unknown) (unknown) Family History (units (unknown) date) (Updated 01/15/23 @ unknown) 02:24 by DOUG Chairez) (unknown) (no (unknown) (unknown) Father Diabetes (units (unknown) date) mellitus unknown) (unknown) (no (unknown) (unknown) General: Patient (units (unknown) date) is disheveled, unknown) appears chronically ill and unwell, with (unknown) (no (unknown) (unknown) Globulin 3.2 (units (u nknown) date) unknown) (unknown) (no (unknown) (unknown) Globulin (units (unkno wn) date) unknown) (unknown) (no (unknown) (unknown) Glucose 254 H (units ( unknown) date) unknown) (unknown) (no (unknown) (unknown) Glucose (units (unkno wn) date) unknown) (unknown) (no (unknown) (unknown) HEARING (units (unkno wn) date) unknown) (unknown) (no (unknown) (unknown) HEENT: (units (unkno wn) date) Normocephalic, unknown) extraocular muscles intact, oral pharynx is clear and (unknown) (no (unknown) (unknown) HLD, BPH, (units (unkno wn) date) insulin-dependent unknown) diabetes and chronic low back pain tx with InterStim (unknown) (no (unknown) (unknown) Hct 36.9 L (units (unk nown) date) unknown) (unknown) (no (unknown) (unknown) Hct (units (unkno wn) date) unknown) (unknown) (no (unknown) (unknown) Hgb 12.3 L (units (unk nown) date) unknown) (unknown) (no (unknown) (unknown) Hgb (units (unkno wn) date) unknown) (unknown) (no (unknown) (unknown) History + Physical (units (unknown) date) Report unknown) (unknown) (no (unknown) (unknown) History of Present (units (unknown) date) Illness unknown) (unknown) (no (unknown) (unknown) History of (units (unk nown) date) shoulder surgery unknown) (unknown) (no (unknown) (unknown) History (units (unkno wn) date) unknown) (unknown) (no (unknown) (unknown) Home Medications (units (unknown) date) and Allergies unknown) (unknown) (no (unknown) (unknown) Home Medications (units (unknown) date) unknown) (unknown) (no (unknown) (unknown) Hyperlipidemia due (units (unknown) date) to type 1 diabetes unknown) mellitus (unknown) (no (unknown) (unknown) INR 1.0 (units (unkno wn) date) unknown) (unknown) (no (unknown) (unknown) INR (units (unkno wn) date) unknown) (unknown) (no (unknown) (unknown) [facility] (units (unknown) date) [address] unknown) [place] [address] (unknown) (no (unknown) (unknown) JVD (units (unkno wn) date) unknown) (unknown) (no (unknown) (unknown) LOSS AT (units (unkno wn) date) unknown) (unknown) (no (unknown) (unknown) Laboratory Results (units (unknown) date) - last 24 hr unknown) (unknown) (no (unknown) (unknown) Labs (units (unkno wn) date) unknown) (unknown) (no (unknown) (unknown) Labs: (units (unkno wn) date) unknown) (unknown) (no (unknown) (unknown) Lactate 2.1 1.9 (units (unknown) date) unknown) (unknown) (no (unknown) (unknown) Lactate (units (unkno wn) date) unknown) (unknown) (no (unknown) (unknown) Lipase 109 (units (unk nown) date) unknown) (unknown) (no (unknown) (unknown) Lipase (units (unkno wn) date) unknown) (unknown) (no (unknown) (unknown) Lungs: (units (unkno wn) date) Auscultation of all unknown) lung lopez are clear without adventitious sounds, (unknown) (no (unknown) (unknown) Lymph # (Auto) (units (unknown) date) 1700 unknown) (unknown) (no (unknown) (unknown) Lymph # (Auto) (units (unknown) date) unknown) (unknown) (no (unknown) (unknown) Lymph % (Auto) (units (unknown) date) 39.1 unknown) (unknown) (no (unknown) (unknown) Lymph % (Auto) (units (unknown) date) unknown) (unknown) (no (unknown) (unknown) MCH 32.5 (units (unkno wn) date) unknown) (unknown) (no (unknown) (unknown) MCH (units (unkno wn) date) unknown) (unknown) (no (unknown) (unknown) MCHC 33.5 (units (unkn own) date) unknown) (unknown) (no (unknown) (unknown) MCHC (units (unkno wn) date) unknown) (unknown) (no (unknown) (unknown) MCV 97.1 (units (unkno wn) date) unknown) (unknown) (no (unknown) (unknown) MCV (units (unkno wn) date) unknown) (unknown) (no (unknown) (unknown) Medical History (units (unknown) date) (Reviewed 01/15/23 unknown) @ 02:22 by Genesis Dunn [facility]) (unknown) (no (unknown) (unknown) Medication (units (unk nown) date) Instructions unknown) Recorded Confirmed Type (unknown) (no (unknown) (unknown) Meds (units (unkno wn) date) unknown) (unknown) (no (unknown) (unknown) Octavio Romo is a (units (unknown) date) 53-year-old male unknown) with known history of alcohol abuse, HTN, (unknown) (no (unknown) (unknown) Micro UA Comment (units (unknown) date) Microscopic normal unknown) (unknown) (no (unknown) (unknown) Micro UA Comment (units (unknown) date) unknown) (unknown) (no (unknown) (unknown) Pender # (Auto) 600 (units (unknown) date) unknown) (unknown) (no (unknown) (unknown) Pender # (Auto) (units ( unknown) date) unknown) (unknown) (no (unknown) (unknown) Pender % (Auto) 14.9 (units (unknown) date) H unknown) (unknown) (no (unknown) (unknown) Pender % (Auto) (units ( unknown) date) unknown) (unknown) (no (unknown) (unknown) Mother (units (unknown) date) Diabetes mellitus unknown) (unknown) (no (unknown) (unknown) Multiple falls (units (unknown) date) unknown) (unknown) (no (unknown) (unknown) Musculoskeletal: (units (unknown) date) Muscle strength and unknown) tone appear wasting, no deformity, (unknown) (no (unknown) (unknown) Narrative (units (unkn own) date) unknown) (unknown) (no (unknown) (unknown) Narrative: (units (unk nown) date) unknown) (unknown) (no (unknown) (unknown) Neuro: Alert to (units (unknown) date) self, confused, unknown) moves all extremities, sensation to touch (unknown) (no (unknown) (unknown) Neut # (Auto) 1800 (units (unknown) date) unknown) (unknown) (no (unknown) (unknown) Neut # (Auto) (units ( unknown) date) unknown) (unknown) (no (unknown) (unknown) Neut % (Auto) 42.4 (units (unknown) date) L unknown) (unknown) (no (unknown) (unknown) Neut % (Auto) (units ( unknown) date) unknown) (unknown) (no (unknown) (unknown) Objective (units (unkn own) date) unknown) (unknown) (no (unknown) (unknown) Oxygen Delivery (units (unknown) date) Method Room Air unknown) (unknown) (no (unknown) (unknown) Oxygen Delivery (units (unknown) date) Method unknown) (unknown) (no (unknown) (unknown) PFSH (units (unkno wn) date) unknown) (unknown) (no (unknown) (unknown) PT 11.2 (units (unkno wn) date) unknown) (unknown) (no (unknown) (unknown) PT (units (unkno wn) date) unknown) (unknown) (no (unknown) (unknown) Patient: (units (unkno wn) date) Octavio Romo unknown) MR#: [id number] (unknown) (no (unknown) (unknown) Plt Count 296 (units ( unknown) date) unknown) (unknown) (no (unknown) (unknown) Plt Count (units (unkn own) date) unknown) (unknown) (no (unknown) (unknown) Potassium 3.9 (units ( unknown) date) unknown) (unknown) (no (unknown) (unknown) Potassium (units (unkn own) date) unknown) (unknown) (no (unknown) (unknown) Provider: (units (unkn own) date) Genesis Dunn unknown) 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 (unknown) (no (unknown) (unknown) Psych: Patient has (units (unknown) date) a poor kept unknown) appearance, calm inappropriate affect-does not (unknown) (no (unknown) (unknown) Pulse Oximetry 91 (units (unknown) date) 96 unknown) (unknown) (no (unknown) (unknown) Pulse Oximetry 92 (units (unknown) date) unknown) (unknown) (no (unknown) (unknown) Pulse Oximetry 94 (units (unknown) date) 94 unknown) (unknown) (no (unknown) (unknown) Pulse Oximetry 94 (units (unknown) date) 95 unknown) (unknown) (no (unknown) (unknown) Pulse Oximetry 94 (units (unknown) date) 96 unknown) (unknown) (no (unknown) (unknown) Pulse Oximetry 94 (units (unknown) date) unknown) (unknown) (no (unknown) (unknown) Pulse Oximetry 95 (units (unknown) date) 95 100 unknown) (unknown) (no (unknown) (unknown) Pulse Oximetry 95 (units (unknown) date) 96 unknown) (unknown) (no (unknown) (unknown) Pulse Oximetry 95 (units (unknown) date) unknown) (unknown) (no (unknown) (unknown) Pulse Oximetry 96 (units (unknown) date) 94 unknown) (unknown) (no (unknown) (unknown) Pulse Oximetry 96 (units (unknown) date) 96 unknown) (unknown) (no (unknown) (unknown) Pulse Oximetry 96 (units (unknown) date) unknown) (unknown) (no (unknown) (unknown) Pulse Rate 156 H (units (unknown) date) unknown) (unknown) (no (unknown) (unknown) Pulse Rate 69 (units ( unknown) date) unknown) (unknown) (no (unknown) (unknown) Pulse Rate 71 (units ( unknown) date) unknown) (unknown) (no (unknown) (unknown) Pulse Rate 74 101 (units (unknown) date) H unknown) (unknown) (no (unknown) (unknown) Pulse Rate 74 (units ( unknown) date) unknown) (unknown) (no (unknown) (unknown) Pulse Rate 75 (units ( unknown) date) unknown) (unknown) (no (unknown) (unknown) Pulse Rate 77 (units ( unknown) date) unknown) (unknown) (no (unknown) (unknown) Pulse Rate 78 60 (units (unknown) date) 57 L unknown) (unknown) (no (unknown) (unknown) Pulse Rate 78 74 (units (unknown) date) unknown) (unknown) (no (unknown) (unknown) Pulse Rate 81 77 (units (unknown) date) unknown) (unknown) (no (unknown) (unknown) Pulse Rate 83 80 (units (unknown) date) unknown) (unknown) (no (unknown) (unknown) Pulse Rate 85 78 (units (unknown) date) 168 H unknown) (unknown) (no (unknown) (unknown) Pulse Rate 89 94 H (units (unknown) date) unknown) (unknown) (no (unknown) (unknown) Pulse Rate 93 H 78 (units (unknown) date) unknown) (unknown) (no (unknown) (unknown) Pulse Rate 97 H 96 (units (unknown) date) H unknown) (unknown) (no (unknown) (unknown) RBC 3.80 L (units (unk nown) date) unknown) (unknown) (no (unknown) (unknown) RBC (units (unkno wn) date) unknown) (unknown) (no (unknown) (unknown) RDW 13.2 (units (unkno wn) date) unknown) (unknown) (no (unknown) (unknown) RDW (units (unkno wn) date) unknown) (unknown) (no (unknown) (unknown) Respiratory Rate (units (unknown) date) 10 L unknown) (unknown) (no (unknown) (unknown) Respiratory Rate (units (unknown) date) 11 L unknown) (unknown) (no (unknown) (unknown) Respiratory Rate (units (unknown) date) 13 13 unknown) (unknown) (no (unknown) (unknown) Respiratory Rate (units (unknown) date) 13 unknown) (unknown) (no (unknown) (unknown) Respiratory Rate (units (unknown) date) 14 14 unknown) (unknown) (no (unknown) (unknown) Respiratory Rate (units (unknown) date) 14 23 unknown) (unknown) (no (unknown) (unknown) Respiratory Rate (units (unknown) date) 14 unknown) (unknown) (no (unknown) (unknown) Respiratory Rate (units (unknown) date) 15 unknown) (unknown) (no (unknown) (unknown) Respiratory Rate (units (unknown) date) 16 unknown) (unknown) (no (unknown) (unknown) Respiratory Rate (units (unknown) date) 18 0 L 17 unknown) (unknown) (no (unknown) (unknown) Respiratory Rate (units (unknown) date) 19 15 unknown) (unknown) (no (unknown) (unknown) Respiratory Rate (units (unknown) date) 19 18 20 unknown) (unknown) (no (unknown) (unknown) Respiratory Rate (units (unknown) date) 24 17 unknown) (unknown) (no (unknown) (unknown) Respiratory Rate (units (unknown) date) unknown) (unknown) (no (unknown) (unknown) Review of Systems (units (unknown) date) unknown) (unknown) (no (unknown) (unknown) SARS-CoV-2 (PCR) (units (unknown) date) Negative unknown) (unknown) (no (unknown) (unknown) SARS-CoV-2 (PCR) (units (unknown) date) unknown) (unknown) (no (unknown) (unknown) Signed By: (units (unk nown) date) unknown) (unknown) (no (unknown) (unknown) Skin: scabbed (units ( unknown) date) superficial unknown) laceration over his right forehead, small burn right (unknown) (no (unknown) (unknown) Smoking Status: (units (unknown) date) Never smoker unknown) (unknown) (no (unknown) (unknown) Social History (units (unknown) date) (Updated 01/15/23 @ unknown) 02:23 by DOUG Chairez) (unknown) (no (unknown) (unknown) Sodium 140 (units (unk nown) date) unknown) (unknown) (no (unknown) (unknown) Sodium (units (unkno wn) date) unknown) (unknown) (no (unknown) (unknown) Solostar U-100 (units (unknown) date) Insulin) unknown) (unknown) (no (unknown) (unknown) Surgical History (units (unknown) date) (Reviewed 01/15/23 unknown) @ 02:22 by DOUG Chairez) (unknown) (no (unknown) (unknown) Time Patient Seen: (units (unknown) date) 22:42 unknown) (unknown) (no (unknown) (unknown) Total Bilirubin (units (unknown) date) 0.4 unknown) (unknown) (no (unknown) (unknown) Total Bilirubin (units (unknown) date) unknown) (unknown) (no (unknown) (unknown) Total Protein 7.2 (units (unknown) date) unknown) (unknown) (no (unknown) (unknown) Total Protein (units ( unknown) date) unknown) (unknown) (no (unknown) (unknown) U Benzodiazepines (units (unknown) date) Scrn Positive H unknown) (unknown) (no (unknown) (unknown) U Benzodiazepines (units (unknown) date) Scrn unknown) (unknown) (no (unknown) (unknown) U Marijuana (THC) (units (unknown) date) Screen Negative unknown) (unknown) (no (unknown) (unknown) U Marijuana (THC) (units (unknown) date) Screen unknown) (unknown) (no (unknown) (unknown) U Methamphetamines (units (unknown) date) Scrn Negative unknown) (unknown) (no (unknown) (unknown) U Methamphetamines (units (unknown) date) Scrn unknown) (unknown) (no (unknown) (unknown) U Opiates 300ng/mL (units (unknown) date) cut Positive H unknown) (unknown) (no (unknown) (unknown) U Opiates 300ng/mL (units (unknown) date) cut unknown) (unknown) (no (unknown) (unknown) U Tricyclic (units (un known) date) Antidepress unknown) Negative (unknown) (no (unknown) (unknown) U Tricyclic (units (un known) date) Antidepress unknown) (unknown) (no (unknown) (unknown) Unable to obtain (units (unknown) date) accurate ROS due to unknown) encephalopathy-All 12 point systems (unknown) (no (unknown) (unknown) Ur Amphetamines (units (unknown) date) Screen Negative unknown) (unknown) (no (unknown) (unknown) Ur Amphetamines (units (unknown) date) Screen unknown) (unknown) (no (unknown) (unknown) Ur Barbiturates (units (unknown) date) Screen Negative unknown) (unknown) (no (unknown) (unknown) Ur Barbiturates (units (unknown) date) Screen unknown) (unknown) (no (unknown) (unknown) Ur Culture (units (unk nown) date) Indicated? Cult not unknown) indicated (unknown) (no (unknown) (unknown) Ur Culture (units (unk nown) date) Indicated? unknown) (unknown) (no (unknown) (unknown) Ur Leukocyte (units (u nknown) date) Esterase Negative unknown) (unknown) (no (unknown) (unknown) Ur Leukocyte (units (u nknown) date) Esterase unknown) (unknown) (no (unknown) (unknown) Ur MDMA Scrn (units (u nknown) date) (Ecstasy) Negative unknown) (unknown) (no (unknown) (unknown) Ur MDMA Scrn (units (u nknown) date) (Ecstasy) unknown) (unknown) (no (unknown) (unknown) Ur Oxycodone (units (u nknown) date) Screen Negative unknown) (unknown) (no (unknown) (unknown) Ur Oxycodone (units (u nknown) date) Screen unknown) (unknown) (no (unknown) (unknown) Ur Phencyclidine (units (unknown) date) Scrn Negative unknown) (unknown) (no (unknown) (unknown) Ur Phencyclidine (units (unknown) date) Scrn unknown) (unknown) (no (unknown) (unknown) Ur Specific (units (un known) date) [place] 1.010 unknown) (unknown) (no (unknown) (unknown) Ur Specific (units (un known) date) [place] unknown) (unknown) (no (unknown) (unknown) Urine Appearance (units (unknown) date) Clear unknown) (unknown) (no (unknown) (unknown) Urine Appearance (units (unknown) date) unknown) (unknown) (no (unknown) (unknown) Urine Bacteria (units (unknown) date) None seen unknown) (unknown) (no (unknown) (unknown) Urine Bacteria (units (unknown) date) unknown) (unknown) (no (unknown) (unknown) Urine Bilirubin (units (unknown) date) Negative unknown) (unknown) (no (unknown) (unknown) Urine Bilirubin (units (unknown) date) unknown) (unknown) (no (unknown) (unknown) Urine Cocaine (units ( unknown) date) Screen Negative unknown) (unknown) (no (unknown) (unknown) Urine Cocaine (units ( unknown) date) Screen unknown) (unknown) (no (unknown) (unknown) Urine Color Yellow (units (unknown) date) unknown) (unknown) (no (unknown) (unknown) Urine Color (units (un known) date) unknown) (unknown) (no (unknown) (unknown) Urine Glucose (UA) (units (unknown) date) 2+ H unknown) (unknown) (no (unknown) (unknown) Urine Glucose (UA) (units (unknown) date) unknown) (unknown) (no (unknown) (unknown) Urine Ketones (units ( unknown) date) Negative unknown) (unknown) (no (unknown) (unknown) Urine Ketones (units ( unknown) date) unknown) (unknown) (no (unknown) (unknown) Urine Methadone (units (unknown) date) Screen Negative unknown) (unknown) (no (unknown) (unknown) Urine Methadone (units (unknown) date) Screen unknown) (unknown) (no (unknown) (unknown) Urine Nitrate (units ( unknown) date) Negative unknown) (unknown) (no (unknown) (unknown) Urine Nitrate (units ( unknown) date) unknown) (unknown) (no (unknown) (unknown) Urine Occult Blood (units (unknown) date) Negative unknown) (unknown) (no (unknown) (unknown) Urine Occult Blood (units (unknown) date) unknown) (unknown) (no (unknown) (unknown) Urine Protein (units ( unknown) date) Negative unknown) (unknown) (no (unknown) (unknown) Urine Protein (units ( unknown) date) unknown) (unknown) (no (unknown) (unknown) Urine RBC None (units (unknown) date) seen unknown) (unknown) (no (unknown) (unknown) Urine RBC (units (unkn own) date) unknown) (unknown) (no (unknown) (unknown) Urine Urobilinogen (units (unknown) date) 1.0 unknown) (unknown) (no (unknown) (unknown) Urine Urobilinogen (units (unknown) date) unknown) (unknown) (no (unknown) (unknown) Urine WBC None (units (unknown) date) seen unknown) (unknown) (no (unknown) (unknown) Urine WBC (units (unkn own) date) unknown) (unknown) (no (unknown) (unknown) Urine pH 6.5 (units (u nknown) date) unknown) (unknown) (no (unknown) (unknown) Urine pH (units (unkno wn) date) unknown) (unknown) (no (unknown) (unknown) Vital Signs (units (un known) date) unknown) (unknown) (no (unknown) (unknown) WAS (units (unkno wn) date) unknown) (unknown) (no (unknown) (unknown) WBC 4.3 L (units (unkn own) date) unknown) (unknown) (no (unknown) (unknown) WBC (units (unkno wn) date) unknown) (unknown) (no (unknown) (unknown) When asked on (units ( unknown) date) admit regarding unknown) code status patient requested to be a full code, (unknown) (no (unknown) (unknown) [Embedded Image (units (unknown) date) Not Available] unknown) (unknown) (no (unknown) (unknown) [From BETADINE] (units (unknown) date) FEELS LIKE unknown) (unknown) (no (unknown) (unknown) [SHELLFISH (units (unk nown) date) DERIVED] LIKE IT unknown) (unknown) (no (unknown) (unknown) acute distress at (units (unknown) date) this time. unknown) (unknown) (no (unknown) (unknown) adenopathy, no (units (unknown) date) thyroid unknown) enlargement, nontender, no masses palpated. Negative for (unknown) (no (unknown) (unknown) admission (units (unkn own) date) unknown) (unknown) (no (unknown) (unknown) admit patient is (units (unknown) date) unable to state unknown) where he is unable to recall how or when he (unknown) (no (unknown) (unknown) alcohol intake: (units (unknown) date) current unknown) (unknown) (no (unknown) (unknown) and L1/L2 (units (unkn own) date) transverse process unknown) fracture. (unknown) (no (unknown) (unknown) and denied suicide (units (unknown) date) ideation. patient unknown) is hemodynamically stable pleasant (unknown) (no (unknown) (unknown) anterior lower (units (unknown) date) extremity, unknown) significant deep bruising to lower coccyx area. (unknown) (no (unknown) (unknown) appear to (units (unkn own) date) appreciate severity unknown) of injuries and state of health, mental status (unknown) (no (unknown) (unknown) are present in all (units (unknown) date) 4 quadrants without unknown) guarding or rebound, no CVA tenderness. (unknown) (no (unknown) (unknown) atorvastatin 40 mg (units (unknown) date) tablet 40 mg PO unknown) BEDTIME 01/14/23 01/14/23 History (unknown) (no (unknown) (unknown) attempts to (units (un known) date) transfer patient unknown) for detox, but was refused due to hyperglycemia, (unknown) (no (unknown) (unknown) attitude thought (units (unknown) date) context and unknown) judgment are in appropriate for age. (unknown) (no (unknown) (unknown) been called to the (units (unknown) date) patient's home unknown) several times over the last few days, he was (unknown) (no (unknown) (unknown) blood and broken (units (unknown) date) glass around him. unknown) Patient was seen and evaluated by GEOLOGY INSTRUCTOR in the (unknown) (no (unknown) (unknown) bruising left (units (u nknown) date) abdomen, upper abd, unknown) chest, scabbed abrasion to left anterior lower (unknown) (no (unknown) (unknown) bruit, no cardiac (units (unknown) date) pulsations present. unknown) (unknown) (no (unknown) (unknown) converses easily (units (unknown) date) but is confused. unknown) WBC 4.3, H+H 12.3/36.9, initial glucose 344, (unknown) (no (unknown) (unknown) covered in a (units (u nknown) date) variety of multiple unknown) injuries in varying degrees healing, a scabbed (unknown) (no (unknown) (unknown) crepitus, (units (unkn own) date) effusions, unknown) cyanosis, clubbing or edema present. Full range of motion (unknown) (no (unknown) (unknown) dextroamphetamine- (units (unknown) date) amphetamine 20 20 unknown) mg PO BID 01/14/23 01/14/23 History (unknown) (no (unknown) (unknown) did not answer.? (units (unknown) date) Patient was seen unknown) and evaluated by GEOLOGY INSTRUCTOR in the ED made multiple (unknown) (no (unknown) (unknown) diffuse multiple (units (unknown) date) injuries in various unknown) stages of healing from head to toe, in no (unknown) (no (unknown) (unknown) elevated QTC on (units (unknown) date) EKG, and unknown) encephalopathy. Unable to obtain accurate HPI, ROS due (unknown) (no (unknown) (unknown) extremities well.? (units (unknown) date) Is conversant but unknown) confused.? Patient states he drinks at (unknown) (no (unknown) (unknown) extremity, (units (unk nown) date) significant deep unknown) bruising to lower coccyx area. Patient denies (unknown) (no (unknown) (unknown) fall, head injury, (units (unknown) date) atrial unknown) fibrillation, encephalopathy, ETOH abuse/intoxication, (unknown) (no (unknown) (unknown) fall, head injury, (units (unknown) date) encephalopathy, unknown) ETOH abuse/intoxication, hyperglycemia. (unknown) (no (unknown) (unknown) forearm, bruising (units (unknown) date) left abdomen + unknown) upper abd, + chest, scabbed abrasion to left (unknown) (no (unknown) (unknown) found down this (units (unknown) date) evening on the unknown) bathroom floor with broken glass perhaps broken (unknown) (no (unknown) (unknown) furosemide 20 mg (units (unknown) date) tablet 20 mg PO unknown) DAILY 01/14/23 01/14/23 History (unknown) (no (unknown) (unknown) head CT negative, (units (unknown) date) CT of unknown) abdomen/pelvis multiple remote left rib fractures, left (unknown) (no (unknown) (unknown) household members: (units (unknown) date) none unknown) (unknown) (no (unknown) (unknown) hyperglycemia, (units (unknown) date) elevated QTC on unknown) EKG, and encephalopathy. Patient admitted for (unknown) (no (unknown) (unknown) hyperglycemia. (units (unknown) date) unknown) (unknown) (no (unknown) (unknown) insulin glargine (units (unknown) date) 100 unit/mL (3 20 unknown) unit SUBCUT BEDTIME 01/14/23 01/14/23 History (unknown) (no (unknown) (unknown) insulin lispro 100 (units (unknown) date) unit/mL See Rx unknown) Instructions .Route .COMPLEX 01/14/23 01/14/23 (unknown) (no (unknown) (unknown) intact radial and (units (unknown) date) pedal pulses are unknown) normal. (unknown) (no (unknown) (unknown) intact, no gross (units (unknown) date) deficits noted of unknown) cranial nerves. (unknown) (no (unknown) (unknown) kill himself when (units (unknown) date) asked why he did unknown) not answer'? When asked if he has a plan he (unknown) (no (unknown) (unknown) least a 5th of (units (unknown) date) Vodka daily, denies unknown) tobacco or illicit.? Patient is unable to (unknown) (no (unknown) (unknown) losartan 100 mg (units (unknown) date) tablet 100 mg PO unknown) DAILY 01/14/23 01/14/23 History (unknown) (no (unknown) (unknown) mL) subcutaneous (units (unknown) date) pen (Lantus unknown) (unknown) (no (unknown) (unknown) mg tablet (units (unkn own) date) unknown) (unknown) (no (unknown) (unknown) mirror and blood (units (unknown) date) at the scene. unknown) Patient is confused, but redirectable. During (unknown) (no (unknown) (unknown) mucous membranes (units (unknown) date) are dry. Neck is unknown) supple and symmetric, trachea is midline, no (unknown) (no (unknown) (unknown) negative, tox (units ( unknown) date) screen is positive unknown) for opiates and benzos, initial ETOH 308, (unknown) (no (unknown) (unknown) obtain these (units (u nknown) date) injuries in the unknown) events that led him to the hospital today. He is (unknown) (no (unknown) (unknown) pain, no shortness (units (unknown) date) of breath, no GI or unknown) urinary symptoms.? He is moving all his (unknown) (no (unknown) (unknown) penicillin G (units (u nknown) date) [PENICILLIN G] unknown) Allergy Unknown LEFT EAR Verified 07/27/18 10:10 (unknown) (no (unknown) (unknown) povidone-iodine (units (unknown) date) Allergy Unknown unknown) 'SKIN Verified 07/27/18 10:10 (unknown) (no (unknown) (unknown) propranolol 20 mg (units (unknown) date) tablet 20 mg PO BID unknown) 01/14/23 01/14/23 History (unknown) (no (unknown) (unknown) recall what his (units (unknown) date) medications are he unknown) believes he is on insulins but he has no idea (unknown) (no (unknown) (unknown) repeat 254, AST (units (unknown) date) 87, ALT 88, unknown) alk-phos 144, UA negative, lactate negative, lipase (unknown) (no (unknown) (unknown) repeat 91. COVID (units (unknown) date) negative. EKG sinus unknown) rhythm rate 72 QTC 499, without ST or T (unknown) (no (unknown) (unknown) reviewed with the (units (unknown) date) patient and are unknown) negative except otherwise documented. (unknown) (no (unknown) (unknown) scapula fracture, (units (unknown) date) and L1/L2 unknown) transverse process fracture. Patient admitted for (unknown) (no (unknown) (unknown) shellfish derived (units (unknown) date) Allergy Unknown unknown) 'SKIN FELT Verified 07/27/18 10:10 (unknown) (no (unknown) (unknown) soap [From (units (unk nown) date) BETADINE] Allergy unknown) Unknown 'SKIN Verified 07/27/18 10:10 (unknown) (no (unknown) (unknown) stimulator in back (units (unknown) date) lumbar + Dilaudid unknown) pain pump in abdomen found down by EMS (unknown) (no (unknown) (unknown) stimulator in back (units (unknown) date) lumbar + Dilaudid unknown) pain pump in abdomen.? EMS had apparently (unknown) (no (unknown) (unknown) subcutaneous pen (units (unknown) date) (Humalog KwikPen unknown) (unknown) (no (unknown) (unknown) superficial (units (un known) date) laceration over his unknown) right forehead, small burn right forearm, (unknown) (no (unknown) (unknown) tamsulosin 0.4 mg (units (unknown) date) capsule 0.4 mg PO unknown) DAILY 01/14/23 01/14/23 History (unknown) (no (unknown) (unknown) this evening on (units (unknown) date) the bathroom floor unknown) confused, covered in multiple injuries with (unknown) (no (unknown) (unknown) to encephalopathy. (units (unknown) date) ED reported patient unknown) had an episode of atrial fibrillation (unknown) (no (unknown) (unknown) to kill himself to (units (unknown) date) the medics and when unknown) asked in ED he ' stated he did want to (unknown) (no (unknown) (unknown) wave changes. (units ( unknown) date) Chest x-ray unknown) negative, C-spine negative, pelvic x-ray negative, (unknown) (no (unknown) (unknown) wave changes. (units ( unknown) date) unknown) (unknown) (no (unknown) (unknown) wheezes, rhonchi, (units (unknown) date) or rales. unknown) (unknown) (no (unknown) (unknown) when or if he is (units (unknown) date) taken his unknown) medication. He did make statements that he wanted (unknown) (no (unknown) (unknown) which metoprolol (units (unknown) date) was given and unknown) quickly resolved. Result panel 245 (unknown) (no (unknown) (unknown) (no value) (units (unk nown) date) unknown) (unknown) (no (unknown) (unknown) (U-100) Insulin) (units (unknown) date) unknown) (unknown) (no (unknown) (unknown) (past 8 hours): (units (unknown) date) unknown) (unknown) (no (unknown) (unknown) -A1c ordered (units (u nknown) date) unknown) (unknown) (no (unknown) (unknown) -AST 87, ALT 88, (units (unknown) date) alk-phos 144, H+H unknown) 12.3/36.9, (unknown) (no (unknown) (unknown) -BMI 28.9 (units (unkn own) date) unknown) (unknown) (no (unknown) (unknown) -CT of (units (unkno wn) date) abdomen/pelvis unknown) multiple remote left rib fractures, left scapula fracture, (unknown) (no (unknown) (unknown) -Chest x-ray (units (un known) date) negative, C-spine unknown) negative, pelvic x-ray negative, head CT negative (unknown) (no (unknown) (unknown) -EKG sinus rhythm (units (unknown) date) rate 72 QTC 499, unknown) without ST or T-wave changes. 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 (units (u nknown) date) unknown) (unknown) (no (unknown) (unknown) -PT/OT consult (units (unknown) date) ordered unknown) (unknown) (no (unknown) (unknown) -brain MR ordered (units (unknown) date) for unknown) tomorrow--holding Lovenox until after MR results, risk of (unknown) (no (unknown) (unknown) -continue Flomax (units (unknown) date) unknown) (unknown) (no (unknown) (unknown) -continue Lantus (units (unknown) date) 20 units q.h.s., unknown) high-dose sliding scale (unknown) (no (unknown) (unknown) -continue Lipitor (units (unknown) date) unknown) (unknown) (no (unknown) (unknown) -continue (units (unkn own) date) lisinopril, unknown) propranolol-holding Lasix due to hypovolemic state (unknown) (no (unknown) (unknown) -dietary consult (units (unknown) date) ordered regarding unknown) nutritional education and information for (unknown) (no (unknown) (unknown) -found down by EMS (units (unknown) date) unknown) (unknown) (no (unknown) (unknown) -given 60 mg IV (units (unknown) date) dose tonight, will unknown) initiate Day#1 64mg QID, Day#2 TID, Day#3BID, (unknown) (no (unknown) (unknown) -initial ETOH 308, (units (unknown) date) repeat 91 we will unknown) continue to trend (unknown) (no (unknown) (unknown) -initial blood (units (unknown) date) sugar 344, repeat unknown) 254-no gap, no DKA (unknown) (no (unknown) (unknown) -lives alone, (units ( unknown) date) permanently unknown) disabled (unknown) (no (unknown) (unknown) -neuro checks, (units (unknown) date) strict fall unknown) precaution, monitor for bleeding, trend H+H-H+H (unknown) (no (unknown) (unknown) -patient admitted (units (unknown) date) under CIWA protocol unknown) (unknown) (no (unknown) (unknown) -patient admitted (units (unknown) date) under diabetic unknown) protocols, BS checks a.c. HS (unknown) (no (unknown) (unknown) -patient (units (unkno wn) date) demonstrated atrial unknown) fibrillation while in the ED was given 1 dose of (unknown) (no (unknown) (unknown) -patient has (units (u nknown) date) lumbar InterStim in unknown) place, and Dilaudid pain pump in left abdomen (unknown) (no (unknown) (unknown) -patient to be (units (unknown) date) monitored on unknown) tele-no documented history of AFib. (unknown) (no (unknown) (unknown) -rehydration NS at (units (unknown) date) 100 cc/HR unknown) (unknown) (no (unknown) (unknown) -seizure (units (unkno wn) date) precautions unknown) (unknown) (no (unknown) (unknown) -the patient is at (units (unknown) date) much higher risk unknown) for medical and surgical complications due (unknown) (no (unknown) (unknown) -tox screen is (units (unknown) date) positive for unknown) opiates and benzos (unknown) (no (unknown) (unknown) -unclear if this (units (unknown) date) was secondary to unknown) alcohol abuse trauma uncontrolled diabetes. (unknown) (no (unknown) (unknown) -was given (units (unk nown) date) phenobarbital unknown) loading dose in ED, (unknown) (no (unknown) (unknown) -will trend ETOH, (units (unknown) date) ordered ammonia, unknown) monitor electrolytes (unknown) (no (unknown) (unknown) [id number] (units (unkno wn) date) unknown) (unknown) (no (unknown) (unknown) 01/14/23 01/14/23 (units (unknown) date) 01/14/23 unknown) (unknown) (no (unknown) (unknown) 01/14/23 10:45 (units (unknown) date) unknown) (unknown) (no (unknown) (unknown) 01/14/23 (units (unkno wn) date) unknown) (unknown) (no (unknown) (unknown) 1. Found down, (units (unknown) date) fall, with head unknown) injury, and encephalopathy, acute, present on (unknown) (no (unknown) (unknown) 10:45 10:45 10:45 (units (unknown) date) unknown) (unknown) (no (unknown) (unknown) 10:45 11:23 13:48 (units (unknown) date) unknown) (unknown) (no (unknown) (unknown) 12.3/36.9, (units (unk nown) date) unknown) (unknown) (no (unknown) (unknown) 14:09 14:09 15:25 (units (unknown) date) unknown) (unknown) (no (unknown) (unknown) 15:00 01/14/23 (units (unknown) date) unknown) (unknown) (no (unknown) (unknown) 15:02 01/14/23 (units (unknown) date) unknown) (unknown) (no (unknown) (unknown) 15:02 (units (unkno wn) date) unknown) (unknown) (no (unknown) (unknown) 15:30 01/14/23 (units (unknown) date) unknown) (unknown) (no (unknown) (unknown) 16:00 01/14/23 (units (unknown) date) unknown) (unknown) (no (unknown) (unknown) 16:00 (units (unkno wn) date) unknown) (unknown) (no (unknown) (unknown) 16:30 01/14/23 (units (unknown) date) unknown) (unknown) (no (unknown) (unknown) 17:00 01/14/23 (units (unknown) date) unknown) (unknown) (no (unknown) (unknown) 17:00 (units (unkno wn) date) unknown) (unknown) (no (unknown) (unknown) 17:30 01/14/23 (units (unknown) date) unknown) (unknown) (no (unknown) (unknown) 17:30 (units (unkno wn) date) unknown) (unknown) (no (unknown) (unknown) 18:00 01/14/23 (units (unknown) date) unknown) (unknown) (no (unknown) (unknown) 18:15 (units (unkno wn) date) unknown) (unknown) (no (unknown) (unknown) 18:30 01/14/23 (units (unknown) date) unknown) (unknown) (no (unknown) (unknown) 18:30 (units (unkno wn) date) unknown) (unknown) (no (unknown) (unknown) 19:00 01/14/23 (units (unknown) date) unknown) (unknown) (no (unknown) (unknown) 19:15 01/14/23 (units (unknown) date) unknown) (unknown) (no (unknown) (unknown) 19:15 (units (unkno wn) date) unknown) (unknown) (no (unknown) (unknown) 19:20 01/14/23 (units (unknown) date) unknown) (unknown) (no (unknown) (unknown) 19:20 (units (unkno wn) date) unknown) (unknown) (no (unknown) (unknown) 19:25 01/14/23 (units (unknown) date) unknown) (unknown) (no (unknown) (unknown) 19:30 01/14/23 (units (unknown) date) unknown) (unknown) (no (unknown) (unknown) 19:30 (units (unkno wn) date) unknown) (unknown) (no (unknown) (unknown) 19:34 01/14/23 (units (unknown) date) unknown) (unknown) (no (unknown) (unknown) 19:35 01/14/23 (units (unknown) date) unknown) (unknown) (no (unknown) (unknown) 19:35 (units (unkno wn) date) unknown) (unknown) (no (unknown) (unknown) 19:40 01/14/23 (units (unknown) date) unknown) (unknown) (no (unknown) (unknown) 19:40 (units (unkno wn) date) unknown) (unknown) (no (unknown) (unknown) 19:45 01/14/23 (units (unknown) date) unknown) (unknown) (no (unknown) (unknown) 19:50 01/14/23 (units (unknown) date) unknown) (unknown) (no (unknown) (unknown) 19:50 (units (unkno wn) date) unknown) (unknown) (no (unknown) (unknown) 19:55 01/14/23 (units (unknown) date) unknown) (unknown) (no (unknown) (unknown) 19:55 (units (unkno wn) date) unknown) (unknown) (no (unknown) (unknown) 2. Alcohol abuse, (units (unknown) date) acute on chronic, unknown) alcohol intoxication, acute, present on (unknown) (no (unknown) (unknown) 20:00 01/14/23 (units (unknown) date) unknown) (unknown) (no (unknown) (unknown) 20:05 01/14/23 (units (unknown) date) unknown) (unknown) (no (unknown) (unknown) 20:05 (units (unkno wn) date) unknown) (unknown) (no (unknown) (unknown) 20:30 01/14/23 (units (unknown) date) unknown) (unknown) (no (unknown) (unknown) 20:30 (units (unkno wn) date) unknown) (unknown) (no (unknown) (unknown) 21:00 01/14/23 (units (unknown) date) unknown) (unknown) (no (unknown) (unknown) 21:30 01/14/23 (units (unknown) date) unknown) (unknown) (no (unknown) (unknown) 21:30 (units (unkno wn) date) unknown) (unknown) (no (unknown) (unknown) 22:00 01/14/23 (units (unknown) date) unknown) (unknown) (no (unknown) (unknown) 22:25 (units (unkno wn) date) unknown) (unknown) (no (unknown) (unknown) 3. Atrial (units (unkn own) date) fibrillation, unknown) acute, present on admission-resolved (unknown) (no (unknown) (unknown) 4. (units (unkno wn) date) Insulin-dependent unknown) type 1 diabetes with associated dyslipidemia, (unknown) (no (unknown) (unknown) 5. Hypertension, (units (unknown) date) essential, present unknown) on admission (unknown) (no (unknown) (unknown) 6. Chronic low (units (unknown) date) back pain, chronic, unknown) present on admission (unknown) (no (unknown) (unknown) 7. BPH, chronic, (units (unknown) date) present on unknown) admission (unknown) (no (unknown) (unknown) 8. Overweight, (units (unknown) date) moderate, acute on unknown) chronic, present on admission (unknown) (no (unknown) (unknown) AGE 12YR (units (unkno wn) date) unknown) (unknown) (no (unknown) (unknown) ALT 88 H (units (unkno wn) date) unknown) (unknown) (no (unknown) (unknown) ALT (units (unkno wn) date) unknown) (unknown) (no (unknown) (unknown) APTT 34 (units (unkno wn) date) unknown) (unknown) (no (unknown) (unknown) APTT (units (unkno wn) date) unknown) (unknown) (no (unknown) (unknown) AST 87 H (units (unkno wn) date) unknown) (unknown) (no (unknown) (unknown) AST (units (unkno wn) date) unknown) (unknown) (no (unknown) (unknown) Abdomen: Soft (units ( unknown) date) nontender, negative unknown) for organomegaly, or masses. Bowel sounds (unknown) (no (unknown) (unknown) Age/Sex: 53 / M (units (unknown) date) unknown) (unknown) (no (unknown) (unknown) Albumin 4.0 (units (un known) date) unknown) (unknown) (no (unknown) (unknown) Albumin (units (unkno wn) date) unknown) (unknown) (no (unknown) (unknown) Albumin/Globulin (units (unknown) date) Ratio 1.3 unknown) (unknown) (no (unknown) (unknown) Albumin/Globulin (units (unknown) date) Ratio unknown) (unknown) (no (unknown) (unknown) Alcohol (units (unkno wn) date) intoxication unknown) (unknown) (no (unknown) (unknown) Alkaline (units (unkno wn) date) Phosphatase 146 H unknown) (unknown) (no (unknown) (unknown) Alkaline (units (unkno wn) date) Phosphatase unknown) (unknown) (no (unknown) (unknown) Allergies (units (unkn own) date) unknown) (unknown) (no (unknown) (unknown) Allergy/AdvReac (units (unknown) date) Type Severity unknown) Reaction Status Date / Time (unknown) (no (unknown) (unknown) Antibody Screen (units (unknown) date) Negative unknown) (unknown) (no (unknown) (unknown) Antibody Screen (units (unknown) date) unknown) (unknown) (no (unknown) (unknown) Assessment + Plan (units (unknown) date) narrative: unknown) (unknown) (no (unknown) (unknown) Assessment + Plan (units (unknown) date) unknown) (unknown) (no (unknown) (unknown) BPH (benign (units (un known) date) prostatic unknown) hyperplasia) (unknown) (no (unknown) (unknown) BUN 8 L (units (unkno wn) date) unknown) (unknown) (no (unknown) (unknown) BUN (units (unkno wn) date) unknown) (unknown) (no (unknown) (unknown) BUN/Creatinine (units (unknown) date) Ratio 19.0 unknown) (unknown) (no (unknown) (unknown) BUN/Creatinine (units (unknown) date) Ratio unknown) (unknown) (no (unknown) (unknown) BURNING' (units (unkno wn) date) unknown) (unknown) (no (unknown) (unknown) Baso # (Auto) 100 (units (unknown) date) unknown) (unknown) (no (unknown) (unknown) Baso # (Auto) (units ( unknown) date) unknown) (unknown) (no (unknown) (unknown) Baso % (Auto) 1.4 (units (unknown) date) unknown) (unknown) (no (unknown) (unknown) Baso % (Auto) (units ( unknown) date) unknown) (unknown) (no (unknown) (unknown) Blood Pressure (units (unknown) date) 106/52 L 113/56 L unknown) (unknown) (no (unknown) (unknown) Blood Pressure (units (unknown) date) 121/73 unknown) (unknown) (no (unknown) (unknown) Blood Pressure (units (unknown) date) 129/80 138/76 unknown) (unknown) (no (unknown) (unknown) Blood Pressure (units (unknown) date) 130/82 162/103 H unknown) (unknown) (no (unknown) (unknown) Blood Pressure (units (unknown) date) 132/96 H 169/93 H unknown) (unknown) (no (unknown) (unknown) Blood Pressure (units (unknown) date) 137/72 unknown) (unknown) (no (unknown) (unknown) Blood Pressure (units (unknown) date) 137/85 unknown) (unknown) (no (unknown) (unknown) Blood Pressure (units (unknown) date) 138/102 H 130/92 H unknown) (unknown) (no (unknown) (unknown) Blood Pressure (units (unknown) date) 142/89 H unknown) (unknown) (no (unknown) (unknown) Blood Pressure (units (unknown) date) 143/94 H 141/93 H unknown) (unknown) (no (unknown) (unknown) Blood Pressure (units (unknown) date) 148/82 H unknown) (unknown) (no (unknown) (unknown) Blood Pressure (units (unknown) date) 155/95 H 124/84 unknown) (unknown) (no (unknown) (unknown) Blood Pressure (units (unknown) date) 158/95 H unknown) (unknown) (no (unknown) (unknown) Blood Pressure (units (unknown) date) 172/88 H unknown) (unknown) (no (unknown) (unknown) Blood Pressure (units (unknown) date) 175/108 H unknown) (unknown) (no (unknown) (unknown) Blood Pressure (units (unknown) date) unknown) (unknown) (no (unknown) (unknown) Blood Type O (units (u nknown) date) Positive unknown) (unknown) (no (unknown) (unknown) Blood Type (units (unk nown) date) unknown) (unknown) (no (unknown) (unknown) COVID PCR: (units (unk nown) date) Negative unknown) (unknown) (no (unknown) (unknown) Calcium 8.5 (units (un known) date) unknown) (unknown) (no (unknown) (unknown) Calcium (units (unkno wn) date) unknown) (unknown) (no (unknown) (unknown) Carbon Dioxide 30 (units (unknown) date) unknown) (unknown) (no (unknown) (unknown) Carbon Dioxide (units (unknown) date) unknown) (unknown) (no (unknown) (unknown) Cardio: regular (units (unknown) date) rate and rhythm unknown) without murmur, rubs, or gallops, no carotid (unknown) (no (unknown) (unknown) Chest: Breathing (units (unknown) date) no nasal flaring, unknown) retractions, or tachypneic labored (unknown) (no (unknown) (unknown) Chief complaint: (units (unknown) date) Trauma unknown) (unknown) (no (unknown) (unknown) Chloride 100 (units (u nknown) date) unknown) (unknown) (no (unknown) (unknown) Chloride (units (unkno wn) date) unknown) (unknown) (no (unknown) (unknown) Chronic low back (units (unknown) date) pain unknown) (unknown) (no (unknown) (unknown) Code status: Full (units (unknown) date) unknown) (unknown) (no (unknown) (unknown) Comment: (units (unkno wn) date) unknown) (unknown) (no (unknown) (unknown) Congestive heart (units (unknown) date) failure unknown) (unknown) (no (unknown) (unknown) Creatinine 0.42 L (units (unknown) date) unknown) (unknown) (no (unknown) (unknown) Creatinine (units (unk nown) date) unknown) (unknown) (no (unknown) (unknown) : 1970 (units (unknown) date) Acct:[id number] unknown) (unknown) (no (unknown) (unknown) DVT/VTE (units (unkno wn) date) prophylaxis: unknown) Holding Lovenox until brain MR completed, SCDs only (unknown) (no (unknown) (unknown) Date Patient Seen: (units (unknown) date) 01/14/23 unknown) (unknown) (no (unknown) (unknown) Date of Service: (units (unknown) date) 01/14/23 unknown) (unknown) (no (unknown) (unknown) Day#4QD (units (unkno wn) date) unknown) (unknown) (no (unknown) (unknown) Disposition: (units (u nknown) date) Patient admitted to unknown) acute care expected length of stay greater (unknown) (no (unknown) (unknown) Drinks a 5th of (units (unknown) date) vodka daily unknown) (unknown) (no (unknown) (unknown) ED made multiple (units (unknown) date) attempts to unknown) transfer patient for detox, but was refused due to (unknown) (no (unknown) (unknown) Eos # (Auto) 100 (units (unknown) date) unknown) (unknown) (no (unknown) (unknown) Eos # (Auto) (units (u nknown) date) unknown) (unknown) (no (unknown) (unknown) Eos % (Auto) 2.2 (units (unknown) date) unknown) (unknown) (no (unknown) (unknown) Eos % (Auto) (units (u nknown) date) unknown) (unknown) (no (unknown) (unknown) Essential (units (unkn own) date) hypertension unknown) (unknown) (no (unknown) (unknown) Estimated GFR > 60 (units (unknown) date) unknown) (unknown) (no (unknown) (unknown) Estimated GFR (units ( unknown) date) unknown) (unknown) (no (unknown) (unknown) Ethyl Alcohol 308 (units (unknown) date) H unknown) (unknown) (no (unknown) (unknown) Ethyl Alcohol 91 H (units (unknown) date) unknown) (unknown) (no (unknown) (unknown) Ethyl Alcohol (units ( unknown) date) unknown) (unknown) (no (unknown) (unknown) Exam Narrative: (units (unknown) date) unknown) (unknown) (no (unknown) (unknown) Exam (units (unkno wn) date) unknown) (unknown) (no (unknown) (unknown) FEELS LIKE (units (unk nown) date) unknown) (unknown) (no (unknown) (unknown) Family History (units (unknown) date) (Updated 01/15/23 @ unknown) 02:24 by SOMMER Chairez) (unknown) (no (unknown) (unknown) Father Diabetes (units (unknown) date) mellitus unknown) (unknown) (no (unknown) (unknown) General: Patient (units (unknown) date) is disheveled, unknown) appears chronically ill and unwell, with (unknown) (no (unknown) (unknown) Globulin 3.2 (units (u nknown) date) unknown) (unknown) (no (unknown) (unknown) Globulin (units (unkno wn) date) unknown) (unknown) (no (unknown) (unknown) Glucose 254 H (units ( unknown) date) unknown) (unknown) (no (unknown) (unknown) Glucose (units (unkno wn) date) unknown) (unknown) (no (unknown) (unknown) HEARING (units (unkno wn) date) unknown) (unknown) (no (unknown) (unknown) HEENT: (units (unkno wn) date) Normocephalic, unknown) extraocular muscles intact, oral pharynx is clear and (unknown) (no (unknown) (unknown) HLD, BPH, (units (unkno wn) date) insulin-dependent unknown) diabetes and chronic low back pain tx with InterStim (unknown) (no (unknown) (unknown) Hct 36.9 L (units (unk nown) date) unknown) (unknown) (no (unknown) (unknown) Hct (units (unkno wn) date) unknown) (unknown) (no (unknown) (unknown) Hgb 12.3 L (units (unk nown) date) unknown) (unknown) (no (unknown) (unknown) Hgb (units (unkno wn) date) unknown) (unknown) (no (unknown) (unknown) History + Physical (units (unknown) date) Report unknown) (unknown) (no (unknown) (unknown) History of Present (units (unknown) date) Illness unknown) (unknown) (no (unknown) (unknown) History of (units (unk nown) date) shoulder surgery unknown) (unknown) (no (unknown) (unknown) History (units (unkno wn) date) unknown) (unknown) (no (unknown) (unknown) Home Medications (units (unknown) date) and Allergies unknown) (unknown) (no (unknown) (unknown) Home Medications (units (unknown) date) unknown) (unknown) (no (unknown) (unknown) Hyperlipidemia due (units (unknown) date) to type 1 diabetes unknown) mellitus (unknown) (no (unknown) (unknown) I confirmed that (units (unknown) date) the patient's unknown) advanced care plan is present, Code status is (unknown) (no (unknown) (unknown) I have personally (units (unknown) date) reviewed patient's unknown) chart notes from PCP, specialists, (unknown) (no (unknown) (unknown) I have utilized (units (unknown) date) all available unknown) immediate resources to obtain, update, or review (unknown) (no (unknown) (unknown) INR 1.0 (units (unkno wn) date) unknown) (unknown) (no (unknown) (unknown) INR (units (unkno wn) date) unknown) (unknown) (no (unknown) (unknown) [facility] (units (unknown) date) [address] [place] [address] unknown) [place] [address] (unknown) (no (unknown) (unknown) JVD (units (unkno wn) date) unknown) (unknown) (no (unknown) (unknown) LOSS AT (units (unkno wn) date) unknown) (unknown) (no (unknown) (unknown) Laboratory Results (units (unknown) date) - last 24 hr unknown) (unknown) (no (unknown) (unknown) Labs (units (unkno wn) date) unknown) (unknown) (no (unknown) (unknown) Labs: (units (unkno wn) date) unknown) (unknown) (no (unknown) (unknown) Lactate 2.1 1.9 (units (unknown) date) unknown) (unknown) (no (unknown) (unknown) Lactate (units (unkno wn) date) unknown) (unknown) (no (unknown) (unknown) Lipase 109 (units (unk nown) date) unknown) (unknown) (no (unknown) (unknown) Lipase (units (unkno wn) date) unknown) (unknown) (no (unknown) (unknown) Lungs: (units (unkno wn) date) Auscultation of all unknown) lung lopez are clear without adventitious sounds, (unknown) (no (unknown) (unknown) Lymph # (Auto) (units (unknown) date) 1700 unknown) (unknown) (no (unknown) (unknown) Lymph # (Auto) (units (unknown) date) unknown) (unknown) (no (unknown) (unknown) Lymph % (Auto) (units (unknown) date) 39.1 unknown) (unknown) (no (unknown) (unknown) Lymph % (Auto) (units (unknown) date) unknown) (unknown) (no (unknown) (unknown) MCH 32.5 (units (unkno wn) date) unknown) (unknown) (no (unknown) (unknown) MCH (units (unkno wn) date) unknown) (unknown) (no (unknown) (unknown) MCHC 33.5 (units (unkn own) date) unknown) (unknown) (no (unknown) (unknown) MCHC (units (unkno wn) date) unknown) (unknown) (no (unknown) (unknown) MCV 97.1 (units (unkno wn) date) unknown) (unknown) (no (unknown) (unknown) MCV (units (unkno wn) date) unknown) (unknown) (no (unknown) (unknown) Medical History (units (unknown) date) (Reviewed 01/15/23 unknown) @ 02:22 [facility] (unknown) (no (unknown) (unknown) Medication (units (unk nown) date) Instructions unknown) Recorded Confirmed Type (unknown) (no (unknown) (unknown) Meds (units (unkno wn) date) unknown) (unknown) (no (unknown) (unknown) Octavio Romo is a (units (unknown) date) 53-year-old male unknown) with known history of alcohol abuse, HTN, (unknown) (no (unknown) (unknown) Micro UA Comment (units (unknown) date) Microscopic normal unknown) (unknown) (no (unknown) (unknown) Micro UA Comment (units (unknown) date) unknown) (unknown) (no (unknown) (unknown) Pender # (Auto) 600 (units (unknown) date) unknown) (unknown) (no (unknown) (unknown) Pender # (Auto) (units ( unknown) date) unknown) (unknown) (no (unknown) (unknown) Pender % (Auto) 14.9 (units (unknown) date) H unknown) (unknown) (no (unknown) (unknown) Pender % (Auto) (units ( unknown) date) unknown) (unknown) (no (unknown) (unknown) Mother (units (unknown) date) Diabetes mellitus unknown) (unknown) (no (unknown) (unknown) Multiple falls (units (unknown) date) unknown) (unknown) (no (unknown) (unknown) Musculoskeletal: (units (unknown) date) Muscle strength and unknown) tone appear wasting, no deformity, (unknown) (no (unknown) (unknown) Narrative (units (unkn own) date) unknown) (unknown) (no (unknown) (unknown) Narrative: (units (unk nown) date) unknown) (unknown) (no (unknown) (unknown) Neuro: Alert to (units (unknown) date) self, confused, unknown) moves all extremities, sensation to touch (unknown) (no (unknown) (unknown) Neut # (Auto) 1800 (units (unknown) date) unknown) (unknown) (no (unknown) (unknown) Neut # (Auto) (units ( unknown) date) unknown) (unknown) (no (unknown) (unknown) Neut % (Auto) 42.4 (units (unknown) date) L unknown) (unknown) (no (unknown) (unknown) Neut % (Auto) (units ( unknown) date) unknown) (unknown) (no (unknown) (unknown) Objective (units (unkn own) date) unknown) (unknown) (no (unknown) (unknown) Oxygen Delivery (units (unknown) date) Method Room Air unknown) (unknown) (no (unknown) (unknown) Oxygen Delivery (units (unknown) date) Method unknown) (unknown) (no (unknown) (unknown) PFSH (units (unkno wn) date) unknown) (unknown) (no (unknown) (unknown) PT 11.2 (units (unkno wn) date) unknown) (unknown) (no (unknown) (unknown) PT (units (unkno wn) date) unknown) (unknown) (no (unknown) (unknown) Patient: (units (unkno wn) date) Octavio Romo unknown) MR#: [id number] (unknown) (no (unknown) (unknown) Plt Count 296 (units ( unknown) date) unknown) (unknown) (no (unknown) (unknown) Plt Count (units (unkn own) date) unknown) (unknown) (no (unknown) (unknown) Potassium 3.9 (units ( unknown) date) unknown) (unknown) (no (unknown) (unknown) Potassium (units (unkn own) date) unknown) (unknown) (no (unknown) (unknown) Provider: (units (unkn own) date) Genesis Dunn unknown) 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 (unknown) (no (unknown) (unknown) Psych: Patient has (units (unknown) date) a poor kept unknown) appearance, calm inappropriate affect-does not (unknown) (no (unknown) (unknown) Pulse Oximetry 91 (units (unknown) date) 96 unknown) (unknown) (no (unknown) (unknown) Pulse Oximetry 92 (units (unknown) date) unknown) (unknown) (no (unknown) (unknown) Pulse Oximetry 94 (units (unknown) date) 94 unknown) (unknown) (no (unknown) (unknown) Pulse Oximetry 94 (units (unknown) date) 95 unknown) (unknown) (no (unknown) (unknown) Pulse Oximetry 94 (units (unknown) date) 96 unknown) (unknown) (no (unknown) (unknown) Pulse Oximetry 94 (units (unknown) date) unknown) (unknown) (no (unknown) (unknown) Pulse Oximetry 95 (units (unknown) date) 95 100 unknown) (unknown) (no (unknown) (unknown) Pulse Oximetry 95 (units (unknown) date) 96 unknown) (unknown) (no (unknown) (unknown) Pulse Oximetry 95 (units (unknown) date) unknown) (unknown) (no (unknown) (unknown) Pulse Oximetry 96 (units (unknown) date) 94 unknown) (unknown) (no (unknown) (unknown) Pulse Oximetry 96 (units (unknown) date) 96 unknown) (unknown) (no (unknown) (unknown) Pulse Oximetry 96 (units (unknown) date) unknown) (unknown) (no (unknown) (unknown) Pulse Rate 156 H (units (unknown) date) unknown) (unknown) (no (unknown) (unknown) Pulse Rate 69 (units ( unknown) date) unknown) (unknown) (no (unknown) (unknown) Pulse Rate 71 (units ( unknown) date) unknown) (unknown) (no (unknown) (unknown) Pulse Rate 74 101 (units (unknown) date) H unknown) (unknown) (no (unknown) (unknown) Pulse Rate 74 (units ( unknown) date) unknown) (unknown) (no (unknown) (unknown) Pulse Rate 75 (units ( unknown) date) unknown) (unknown) (no (unknown) (unknown) Pulse Rate 77 (units ( unknown) date) unknown) (unknown) (no (unknown) (unknown) Pulse Rate 78 60 (units (unknown) date) 57 L unknown) (unknown) (no (unknown) (unknown) Pulse Rate 78 74 (units (unknown) date) unknown) (unknown) (no (unknown) (unknown) Pulse Rate 81 77 (units (unknown) date) unknown) (unknown) (no (unknown) (unknown) Pulse Rate 83 80 (units (unknown) date) unknown) (unknown) (no (unknown) (unknown) Pulse Rate 85 78 (units (unknown) date) 168 H unknown) (unknown) (no (unknown) (unknown) Pulse Rate 89 94 H (units (unknown) date) unknown) (unknown) (no (unknown) (unknown) Pulse Rate 93 H 78 (units (unknown) date) unknown) (unknown) (no (unknown) (unknown) Pulse Rate 97 H 96 (units (unknown) date) H unknown) (unknown) (no (unknown) (unknown) RBC 3.80 L (units (unk nown) date) unknown) (unknown) (no (unknown) (unknown) RBC (units (unkno wn) date) unknown) (unknown) (no (unknown) (unknown) RDW 13.2 (units (unkno wn) date) unknown) (unknown) (no (unknown) (unknown) RDW (units (unkno wn) date) unknown) (unknown) (no (unknown) (unknown) Respiratory Rate (units (unknown) date) 10 L unknown) (unknown) (no (unknown) (unknown) Respiratory Rate (units (unknown) date) 11 L unknown) (unknown) (no (unknown) (unknown) Respiratory Rate (units (unknown) date) 13 13 unknown) (unknown) (no (unknown) (unknown) Respiratory Rate (units (unknown) date) 13 unknown) (unknown) (no (unknown) (unknown) Respiratory Rate (units (unknown) date) 14 14 unknown) (unknown) (no (unknown) (unknown) Respiratory Rate (units (unknown) date) 14 23 unknown) (unknown) (no (unknown) (unknown) Respiratory Rate (units (unknown) date) 14 unknown) (unknown) (no (unknown) (unknown) Respiratory Rate (units (unknown) date) 15 unknown) (unknown) (no (unknown) (unknown) Respiratory Rate (units (unknown) date) 16 unknown) (unknown) (no (unknown) (unknown) Respiratory Rate (units (unknown) date) 18 0 L 17 unknown) (unknown) (no (unknown) (unknown) Respiratory Rate (units (unknown) date) 19 15 unknown) (unknown) (no (unknown) (unknown) Respiratory Rate (units (unknown) date) 19 18 20 unknown) (unknown) (no (unknown) (unknown) Respiratory Rate (units (unknown) date) 24 17 unknown) (unknown) (no (unknown) (unknown) Respiratory Rate (units (unknown) date) unknown) (unknown) (no (unknown) (unknown) Review of Systems (units (unknown) date) unknown) (unknown) (no (unknown) (unknown) SARS-CoV-2 (PCR) (units (unknown) date) Negative unknown) (unknown) (no (unknown) (unknown) SARS-CoV-2 (PCR) (units (unknown) date) unknown) (unknown) (no (unknown) (unknown) Signed By: (units (unk nown) date) unknown) (unknown) (no (unknown) (unknown) Skin: scabbed (units ( unknown) date) superficial unknown) laceration over his right forehead, small burn right (unknown) (no (unknown) (unknown) Smoking Status: (units (unknown) date) Never smoker unknown) (unknown) (no (unknown) (unknown) Social History (units (unknown) date) (Updated 01/15/23 @ unknown) 02:23 by SOMMER Chairez) (unknown) (no (unknown) (unknown) Sodium 140 (units (unk nown) date) unknown) (unknown) (no (unknown) (unknown) Sodium (units (unkno wn) date) unknown) (unknown) (no (unknown) (unknown) Solostar U-100 (units (unknown) date) Insulin) unknown) (unknown) (no (unknown) (unknown) Surgical History (units (unknown) date) (Reviewed 01/15/23 unknown) @ 02:22 by SOMMER Chairez) (unknown) (no (unknown) (unknown) Surrogate decision (units (unknown) date) maker: Sun Yancey unknown) friend (unknown) (no (unknown) (unknown) Time Patient Seen: (units (unknown) date) 22:42 unknown) (unknown) (no (unknown) (unknown) Total Bilirubin (units (unknown) date) 0.4 unknown) (unknown) (no (unknown) (unknown) Total Bilirubin (units (unknown) date) unknown) (unknown) (no (unknown) (unknown) Total Protein 7.2 (units (unknown) date) unknown) (unknown) (no (unknown) (unknown) Total Protein (units ( unknown) date) unknown) (unknown) (no (unknown) (unknown) U Benzodiazepines (units (unknown) date) Scrn Positive H unknown) (unknown) (no (unknown) (unknown) U Benzodiazepines (units (unknown) date) Scrn unknown) (unknown) (no (unknown) (unknown) U Marijuana (THC) (units (unknown) date) Screen Negative unknown) (unknown) (no (unknown) (unknown) U Marijuana (THC) (units (unknown) date) Screen unknown) (unknown) (no (unknown) (unknown) U Methamphetamines (units (unknown) date) Scrn Negative unknown) (unknown) (no (unknown) (unknown) U Methamphetamines (units (unknown) date) Scrn unknown) (unknown) (no (unknown) (unknown) U Opiates 300ng/mL (units (unknown) date) cut Positive H unknown) (unknown) (no (unknown) (unknown) U Opiates 300ng/mL (units (unknown) date) cut unknown) (unknown) (no (unknown) (unknown) U Tricyclic (units (un known) date) Antidepress unknown) Negative (unknown) (no (unknown) (unknown) U Tricyclic (units (un known) date) Antidepress unknown) (unknown) (no (unknown) (unknown) Unable to obtain (units (unknown) date) accurate ROS due to unknown) encephalopathy-All 12 point systems (unknown) (no (unknown) (unknown) Ur Amphetamines (units (unknown) date) Screen Negative unknown) (unknown) (no (unknown) (unknown) Ur Amphetamines (units (unknown) date) Screen unknown) (unknown) (no (unknown) (unknown) Ur Barbiturates (units (unknown) date) Screen Negative unknown) (unknown) (no (unknown) (unknown) Ur Barbiturates (units (unknown) date) Screen unknown) (unknown) (no (unknown) (unknown) Ur Culture (units (unk nown) date) Indicated? Cult not unknown) indicated (unknown) (no (unknown) (unknown) Ur Culture (units (unk nown) date) Indicated? unknown) (unknown) (no (unknown) (unknown) Ur Leukocyte (units (u nknown) date) Esterase Negative unknown) (unknown) (no (unknown) (unknown) Ur Leukocyte (units (u nknown) date) Esterase unknown) (unknown) (no (unknown) (unknown) Ur MDMA Scrn (units (u nknown) date) (Ecstasy) Negative unknown) (unknown) (no (unknown) (unknown) Ur MDMA Scrn (units (u nknown) date) (Ecstasy) unknown) (unknown) (no (unknown) (unknown) Ur Oxycodone (units (u nknown) date) Screen Negative unknown) (unknown) (no (unknown) (unknown) Ur Oxycodone (units (u nknown) date) Screen unknown) (unknown) (no (unknown) (unknown) Ur Phencyclidine (units (unknown) date) Scrn Negative unknown) (unknown) (no (unknown) (unknown) Ur Phencyclidine (units (unknown) date) Scrn unknown) (unknown) (no (unknown) (unknown) Ur Specific (units (un known) date) [place] 1.010 unknown) (unknown) (no (unknown) (unknown) Ur Specific (units (un known) date) [place] unknown) (unknown) (no (unknown) (unknown) Urine Appearance (units (unknown) date) Clear unknown) (unknown) (no (unknown) (unknown) Urine Appearance (units (unknown) date) unknown) (unknown) (no (unknown) (unknown) Urine Bacteria (units (unknown) date) None seen unknown) (unknown) (no (unknown) (unknown) Urine Bacteria (units (unknown) date) unknown) (unknown) (no (unknown) (unknown) Urine Bilirubin (units (unknown) date) Negative unknown) (unknown) (no (unknown) (unknown) Urine Bilirubin (units (unknown) date) unknown) (unknown) (no (unknown) (unknown) Urine Cocaine (units ( unknown) date) Screen Negative unknown) (unknown) (no (unknown) (unknown) Urine Cocaine (units ( unknown) date) Screen unknown) (unknown) (no (unknown) (unknown) Urine Color Yellow (units (unknown) date) unknown) (unknown) (no (unknown) (unknown) Urine Color (units (un known) date) unknown) (unknown) (no (unknown) (unknown) Urine Glucose (UA) (units (unknown) date) 2+ H unknown) (unknown) (no (unknown) (unknown) Urine Glucose (UA) (units (unknown) date) unknown) (unknown) (no (unknown) (unknown) Urine Ketones (units ( unknown) date) Negative unknown) (unknown) (no (unknown) (unknown) Urine Ketones (units ( unknown) date) unknown) (unknown) (no (unknown) (unknown) Urine Methadone (units (unknown) date) Screen Negative unknown) (unknown) (no (unknown) (unknown) Urine Methadone (units (unknown) date) Screen unknown) (unknown) (no (unknown) (unknown) Urine Nitrate (units ( unknown) date) Negative unknown) (unknown) (no (unknown) (unknown) Urine Nitrate (units ( unknown) date) unknown) (unknown) (no (unknown) (unknown) Urine Occult Blood (units (unknown) date) Negative unknown) (unknown) (no (unknown) (unknown) Urine Occult Blood (units (unknown) date) unknown) (unknown) (no (unknown) (unknown) Urine Protein (units ( unknown) date) Negative unknown) (unknown) (no (unknown) (unknown) Urine Protein (units ( unknown) date) unknown) (unknown) (no (unknown) (unknown) Urine RBC None (units (unknown) date) seen unknown) (unknown) (no (unknown) (unknown) Urine RBC (units (unkn own) date) unknown) (unknown) (no (unknown) (unknown) Urine Urobilinogen (units (unknown) date) 1.0 unknown) (unknown) (no (unknown) (unknown) Urine Urobilinogen (units (unknown) date) unknown) (unknown) (no (unknown) (unknown) Urine WBC None (units (unknown) date) seen unknown) (unknown) (no (unknown) (unknown) Urine WBC (units (unkn own) date) unknown) (unknown) (no (unknown) (unknown) Urine pH 6.5 (units (u nknown) date) unknown) (unknown) (no (unknown) (unknown) Urine pH (units (unkno wn) date) unknown) (unknown) (no (unknown) (unknown) Vital Signs (units (un known) date) unknown) (unknown) (no (unknown) (unknown) WAS (units (unkno wn) date) unknown) (unknown) (no (unknown) (unknown) WBC 4.3 L (units (unkn own) date) unknown) (unknown) (no (unknown) (unknown) WBC (units (unkno wn) date) unknown) (unknown) (no (unknown) (unknown) When asked on (units ( unknown) date) admit regarding unknown) code status patient requested to be a full code, (unknown) (no (unknown) (unknown) [Embedded Image (units (unknown) date) Not Available] unknown) (unknown) (no (unknown) (unknown) [From BETADINE] (units (unknown) date) FEELS LIKE unknown) (unknown) (no (unknown) (unknown) [SHELLFISH (units (unk nown) date) DERIVED] LIKE IT unknown) (unknown) (no (unknown) (unknown) acute distress at (units (unknown) date) this time. unknown) (unknown) (no (unknown) (unknown) adenopathy, no (units (unknown) date) thyroid unknown) enlargement, nontender, no masses palpated. Negative for (unknown) (no (unknown) (unknown) admission (units (unkn own) date) unknown) (unknown) (no (unknown) (unknown) admit patient is (units (unknown) date) unable to state unknown) where he is unable to recall how or when he (unknown) (no (unknown) (unknown) alcohol intake: (units (unknown) date) current unknown) (unknown) (no (unknown) (unknown) and L1/L2 (units (unkn own) date) transverse process unknown) fracture. (unknown) (no (unknown) (unknown) and denied suicide (units (unknown) date) ideation. patient unknown) is hemodynamically stable pleasant (unknown) (no (unknown) (unknown) anterior lower (units (unknown) date) extremity, unknown) significant deep bruising to lower coccyx area. (unknown) (no (unknown) (unknown) appear to (units (unkn own) date) appreciate severity unknown) of injuries and state of health, mental status (unknown) (no (unknown) (unknown) are present in all (units (unknown) date) 4 quadrants without unknown) guarding or rebound, no CVA tenderness. (unknown) (no (unknown) (unknown) atorvastatin 40 mg (units (unknown) date) tablet 40 mg PO unknown) BEDTIME 01/14/23 01/14/23 History (unknown) (no (unknown) (unknown) attempts to (units (un known) date) transfer patient unknown) for detox, but was refused due to hyperglycemia, (unknown) (no (unknown) (unknown) attitude thought (units (unknown) date) context and unknown) judgment are in appropriate for age. (unknown) (no (unknown) (unknown) been called to the (units (unknown) date) patient's home unknown) several times over the last few days, he was (unknown) (no (unknown) (unknown) bleed (units (unkno wn) date) unknown) (unknown) (no (unknown) (unknown) blood and broken (units (unknown) date) glass around him. unknown) Patient was seen and evaluated by GEOLOGY INSTRUCTOR in the (unknown) (no (unknown) (unknown) bruising left (units (u nknown) date) abdomen, upper abd, unknown) chest, scabbed abrasion to left anterior lower (unknown) (no (unknown) (unknown) bruit, no cardiac (units (unknown) date) pulsations present. unknown) (unknown) (no (unknown) (unknown) converses easily (units (unknown) date) but is confused. unknown) WBC 4.3, H+H 12.3/36.9, initial glucose 344, (unknown) (no (unknown) (unknown) covered in a (units (u nknown) date) variety of multiple unknown) injuries in varying degrees healing, a scabbed (unknown) (no (unknown) (unknown) crepitus, (units (unkn own) date) effusions, unknown) cyanosis, clubbing or edema present. Full range of motion (unknown) (no (unknown) (unknown) dextroamphetamine- (units (unknown) date) amphetamine 20 20 unknown) mg PO BID 01/14/23 01/14/23 History (unknown) (no (unknown) (unknown) diagnostic (units (unk nown) date) imaging, and unknown) laboratory results. (unknown) (no (unknown) (unknown) did not answer.? (units (unknown) date) Patient was seen unknown) and evaluated by GEOLOGY INSTRUCTOR in the ED made multiple (unknown) (no (unknown) (unknown) dietary, (units (unkno wn) date) lifestyle, unknown) exercise, and weight changes. (unknown) (no (unknown) (unknown) diffuse multiple (units (unknown) date) injuries in various unknown) stages of healing from head to toe, in no (unknown) (no (unknown) (unknown) documented and/or (units (unknown) date) surrogate decision unknown) maker is listed in the patient's medical r (unknown) (no (unknown) (unknown) ecord. (units (unkno wn) date) unknown) (unknown) (no (unknown) (unknown) elevated QTC on (units (unknown) date) EKG, and unknown) encephalopathy. Unable to obtain accurate HPI, ROS due (unknown) (no (unknown) (unknown) extremities well.? (units (unknown) date) Is conversant but unknown) confused.? Patient states he drinks at (unknown) (no (unknown) (unknown) extremity, (units (unk nown) date) significant deep unknown) bruising to lower coccyx area. Patient denies (unknown) (no (unknown) (unknown) fall, head injury, (units (unknown) date) atrial unknown) fibrillation, encephalopathy, ETOH abuse/intoxication, (unknown) (no (unknown) (unknown) fall, head injury, (units (unknown) date) encephalopathy, unknown) ETOH abuse/intoxication, hyperglycemia. (unknown) (no (unknown) (unknown) forearm, bruising (units (unknown) date) left abdomen + unknown) upper abd, + chest, scabbed abrasion to left (unknown) (no (unknown) (unknown) found down this (units (unknown) date) evening on the unknown) bathroom floor with broken glass perhaps broken (unknown) (no (unknown) (unknown) furosemide 20 mg (units (unknown) date) tablet 20 mg PO unknown) DAILY 01/14/23 01/14/23 History (unknown) (no (unknown) (unknown) head CT negative, (units (unknown) date) CT of unknown) abdomen/pelvis multiple remote left rib fractures, left (unknown) (no (unknown) (unknown) household members: (units (unknown) date) none unknown) (unknown) (no (unknown) (unknown) hyperglycemia, (units (unknown) date) acute on chronic, unknown) present on admission-uncontrol led/noncompliant (unknown) (no (unknown) (unknown) hyperglycemia, (units (unknown) date) elevated QTC on unknown) EKG, and encephalopathy. Patient admitted for (unknown) (no (unknown) (unknown) hyperglycemia. (units (unknown) date) unknown) (unknown) (no (unknown) (unknown) insulin glargine (units (unknown) date) 100 unit/mL (3 20 unknown) unit SUBCUT BEDTIME 01/14/23 01/14/23 History (unknown) (no (unknown) (unknown) insulin lispro 100 (units (unknown) date) unit/mL See Rx unknown) Instructions .Route .COMPLEX 01/14/23 01/14/23 (unknown) (no (unknown) (unknown) intact radial and (units (unknown) date) pedal pulses are unknown) normal. (unknown) (no (unknown) (unknown) intact, no gross (units (unknown) date) deficits noted of unknown) cranial nerves. (unknown) (no (unknown) (unknown) kill himself when (units (unknown) date) asked why he did unknown) not answer'? When asked if he has a plan he (unknown) (no (unknown) (unknown) least a 5th of (units (unknown) date) Vodka daily, denies unknown) tobacco or illicit.? Patient is unable to (unknown) (no (unknown) (unknown) losartan 100 mg (units (unknown) date) tablet 100 mg PO unknown) DAILY 01/14/23 01/14/23 History (unknown) (no (unknown) (unknown) mL) subcutaneous (units (unknown) date) pen (Lantus unknown) (unknown) (no (unknown) (unknown) metoprolol at (units ( unknown) date) which time it unknown) resolved (unknown) (no (unknown) (unknown) mg tablet (units (unkn own) date) unknown) (unknown) (no (unknown) (unknown) mirror and blood (units (unknown) date) at the scene. unknown) Patient is confused, but redirectable. During (unknown) (no (unknown) (unknown) mucous membranes (units (unknown) date) are dry. Neck is unknown) supple and symmetric, trachea is midline, no (unknown) (no (unknown) (unknown) negative, tox (units ( unknown) date) screen is positive unknown) for opiates and benzos, initial ETOH 308, (unknown) (no (unknown) (unknown) obtain these (units (u nknown) date) injuries in the unknown) events that led him to the hospital today. He is (unknown) (no (unknown) (unknown) pain, no shortness (units (unknown) date) of breath, no GI or unknown) urinary symptoms.? He is moving all his (unknown) (no (unknown) (unknown) patient's obesity (units (unknown) date) increases the unknown) difficulty and complexity of medical and/or (unknown) (no (unknown) (unknown) penicillin G (units (u nknown) date) [PENICILLIN G] unknown) Allergy Unknown LEFT EAR Verified 07/27/18 10:10 (unknown) (no (unknown) (unknown) povidone-iodine (units (unknown) date) Allergy Unknown unknown) 'SKIN Verified 07/27/18 10:10 (unknown) (no (unknown) (unknown) propranolol 20 mg (units (unknown) date) tablet 20 mg PO BID unknown) 01/14/23 01/14/23 History (unknown) (no (unknown) (unknown) recall what his (units (unknown) date) medications are he unknown) believes he is on insulins but he has no idea (unknown) (no (unknown) (unknown) repeat 254, AST (units (unknown) date) 87, ALT 88, unknown) alk-phos 144, UA negative, lactate negative, lipase (unknown) (no (unknown) (unknown) repeat 91. COVID (units (unknown) date) negative. EKG sinus unknown) rhythm rate 72 QTC 499, without ST or T (unknown) (no (unknown) (unknown) reviewed with the (units (unknown) date) patient and are unknown) negative except otherwise documented. (unknown) (no (unknown) (unknown) scapula fracture, (units (unknown) date) and L1/L2 unknown) transverse process fracture. Patient admitted for (unknown) (no (unknown) (unknown) shellfish derived (units (unknown) date) Allergy Unknown unknown) 'SKIN FELT Verified 07/27/18 10:10 (unknown) (no (unknown) (unknown) soap [From (units (unk nown) date) BETADINE] Allergy unknown) Unknown 'SKIN Verified 07/27/18 10:10 (unknown) (no (unknown) (unknown) stimulator in back (units (unknown) date) lumbar + Dilaudid unknown) pain pump in abdomen found down by EMS (unknown) (no (unknown) (unknown) stimulator in back (units (unknown) date) lumbar + Dilaudid unknown) pain pump in abdomen.? EMS had apparently (unknown) (no (unknown) (unknown) subcutaneous pen (units (unknown) date) (Humalog KwikPen unknown) (unknown) (no (unknown) (unknown) such as morbidity (units (unknown) date) and mortality as unknown) well as impaired wound healing. (unknown) (no (unknown) (unknown) superficial (units (un known) date) laceration over his unknown) right forehead, small burn right forearm, (unknown) (no (unknown) (unknown) surgical (units (unkno wn) date) interventions, unknown) management and increases the chances of poor outcome (unknown) (no (unknown) (unknown) tamsulosin 0.4 mg (units (unknown) date) capsule 0.4 mg PO unknown) DAILY 01/14/23 01/14/23 History (unknown) (no (unknown) (unknown) than 2 midnights. (units (unknown) date) unknown) (unknown) (no (unknown) (unknown) the patient's (units ( unknown) date) current unknown) medications. (unknown) (no (unknown) (unknown) this evening on (units (unknown) date) the bathroom floor unknown) confused, covered in multiple injuries with (unknown) (no (unknown) (unknown) to encephalopathy. (units (unknown) date) ED reported patient unknown) had an episode of atrial fibrillation (unknown) (no (unknown) (unknown) to kill himself to (units (unknown) date) the medics and when unknown) asked in ED he ' stated he did want to (unknown) (no (unknown) (unknown) to obesity as it (units (unknown) date) relates to chronic unknown) illnesses:, and acute illness. The (unknown) (no (unknown) (unknown) wave changes. (units ( unknown) date) Chest x-ray unknown) negative, C-spine negative, pelvic x-ray negative, (unknown) (no (unknown) (unknown) wheezes, rhonchi, (units (unknown) date) or rales. unknown) (unknown) (no (unknown) (unknown) when or if he is (units (unknown) date) taken his unknown) medication. He did make statements that he wanted (unknown) (no (unknown) (unknown) which metoprolol (units (unknown) date) was given and unknown) quickly resolved. Result panel 246 (unknown) (no (unknown) (unknown) (no value) (units (unk nown) date) unknown) (unknown) (no (unknown) (unknown) (U-100) Insulin) (units (unknown) date) unknown) (unknown) (no (unknown) (unknown) (past 8 hours): (units (unknown) date) unknown) (unknown) (no (unknown) (unknown) -A1c ordered (units (u nknown) date) unknown) (unknown) (no (unknown) (unknown) -AST 87, ALT 88, (units (unknown) date) alk-phos 144, H+H unknown) 12.3/36.9, (unknown) (no (unknown) (unknown) -BMI 28.9 (units (unkn own) date) unknown) (unknown) (no (unknown) (unknown) -CT of (units (unkno wn) date) abdomen/pelvis unknown) multiple remote left rib fractures, left scapula fracture, (unknown) (no (unknown) (unknown) -Chest x-ray (units (un known) date) negative, C-spine unknown) negative, pelvic x-ray negative, head CT negative (unknown) (no (unknown) (unknown) -EKG sinus rhythm (units (unknown) date) rate 72 QTC 499, unknown) without ST or T-wave changes. 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 (units (u nknown) date) unknown) (unknown) (no (unknown) (unknown) -PT/OT consult (units (unknown) date) ordered unknown) (unknown) (no (unknown) (unknown) -brain MR ordered (units (unknown) date) for unknown) tomorrow--holding Lovenox until after MR results, risk of (unknown) (no (unknown) (unknown) -continue Flomax (units (unknown) date) unknown) (unknown) (no (unknown) (unknown) -continue Lantus (units (unknown) date) 20 units q.h.s., unknown) high-dose sliding scale (unknown) (no (unknown) (unknown) -continue Lipitor (units (unknown) date) unknown) (unknown) (no (unknown) (unknown) -continue (units (unkn own) date) lisinopril, unknown) propranolol-holding Lasix due to hypovolemic state (unknown) (no (unknown) (unknown) -dietary consult (units (unknown) date) ordered regarding unknown) nutritional education and information for (unknown) (no (unknown) (unknown) -found down by EMS (units (unknown) date) unknown) (unknown) (no (unknown) (unknown) -given 60 mg IV (units (unknown) date) dose tonight, will unknown) initiate Day#1 64mg QID, Day#2 TID, Day#3BID, (unknown) (no (unknown) (unknown) -initial ETOH 308, (units (unknown) date) repeat 91 we will unknown) continue to trend (unknown) (no (unknown) (unknown) -initial blood (units (unknown) date) sugar 344, repeat unknown) 254-no gap, no DKA (unknown) (no (unknown) (unknown) -lives alone, (units ( unknown) date) permanently unknown) disabled (unknown) (no (unknown) (unknown) -neuro checks, (units (unknown) date) strict fall unknown) precaution, monitor for bleeding, trend H+H-H+H (unknown) (no (unknown) (unknown) -patient admitted (units (unknown) date) under CIWA protocol unknown) (unknown) (no (unknown) (unknown) -patient admitted (units (unknown) date) under diabetic unknown) protocols, BS checks a.c. HS (unknown) (no (unknown) (unknown) -patient (units (unkno wn) date) demonstrated atrial unknown) fibrillation while in the ED was given 1 dose of (unknown) (no (unknown) (unknown) -patient has (units (u nknown) date) lumbar InterStim in unknown) place, and Dilaudid pain pump in left abdomen (unknown) (no (unknown) (unknown) -patient to be (units (unknown) date) monitored on unknown) tele-no documented history of AFib. (unknown) (no (unknown) (unknown) -rehydration NS at (units (unknown) date) 100 cc/HR unknown) (unknown) (no (unknown) (unknown) -seizure (units (unkno wn) date) precautions unknown) (unknown) (no (unknown) (unknown) -the patient is at (units (unknown) date) much higher risk unknown) for medical and surgical complications due (unknown) (no (unknown) (unknown) -tox screen is (units (unknown) date) positive for unknown) opiates and benzos (unknown) (no (unknown) (unknown) -unclear if this (units (unknown) date) was secondary to unknown) alcohol abuse trauma uncontrolled diabetes. (unknown) (no (unknown) (unknown) -was given (units (unk nown) date) phenobarbital unknown) loading dose in ED, (unknown) (no (unknown) (unknown) -will trend ETOH, (units (unknown) date) ordered ammonia, unknown) monitor electrolytes (unknown) (no (unknown) (unknown) [id number] (units (unkno wn) date) unknown) (unknown) (no (unknown) (unknown) 01/14/23 01/14/23 (units (unknown) date) 01/14/23 unknown) (unknown) (no (unknown) (unknown) 01/14/23 10:45 (units (unknown) date) unknown) (unknown) (no (unknown) (unknown) 01/14/23 (units (o wn) date) unknown) (unknown) (no (unknown) (unknown) 01/15/23 0303 (units ( unknown) date) unknown) (unknown) (no (unknown) (unknown) 1. Found down, (units (unknown) date) fall, with head unknown) injury, and encephalopathy, acute, present on (unknown) (no (unknown) (unknown) 10:45 10:45 10:45 (units (unknown) date) unknown) (unknown) (no (unknown) (unknown) 10:45 11:23 13:48 (units (unknown) date) unknown) (unknown) (no (unknown) (unknown) 12.3/36.9, (units (unk nown) date) unknown) (unknown) (no (unknown) (unknown) 14:09 14:09 15:25 (units (unknown) date) unknown) (unknown) (no (unknown) (unknown) 15:00 01/14/23 (units (unknown) date) unknown) (unknown) (no (unknown) (unknown) 15:02 01/14/23 (units (unknown) date) unknown) (unknown) (no (unknown) (unknown) 15:02 (units (unkno wn) date) unknown) (unknown) (no (unknown) (unknown) 15:30 01/14/23 (units (unknown) date) unknown) (unknown) (no (unknown) (unknown) 16:00 01/14/23 (units (unknown) date) unknown) (unknown) (no (unknown) (unknown) 16:00 (units (unkno wn) date) unknown) (unknown) (no (unknown) (unknown) 16:30 01/14/23 (units (unknown) date) unknown) (unknown) (no (unknown) (unknown) 17:00 01/14/23 (units (unknown) date) unknown) (unknown) (no (unknown) (unknown) 17:00 (units (unkno wn) date) unknown) (unknown) (no (unknown) (unknown) 17:30 01/14/23 (units (unknown) date) unknown) (unknown) (no (unknown) (unknown) 17:30 (units (unkno wn) date) unknown) (unknown) (no (unknown) (unknown) 18:00 01/14/23 (units (unknown) date) unknown) (unknown) (no (unknown) (unknown) 18:15 (units (unkno wn) date) unknown) (unknown) (no (unknown) (unknown) 18:30 01/14/23 (units (unknown) date) unknown) (unknown) (no (unknown) (unknown) 18:30 (units (unkno wn) date) unknown) (unknown) (no (unknown) (unknown) 19:00 01/14/23 (units (unknown) date) unknown) (unknown) (no (unknown) (unknown) 19:15 01/14/23 (units (unknown) date) unknown) (unknown) (no (unknown) (unknown) 19:15 (units (unkno wn) date) unknown) (unknown) (no (unknown) (unknown) 19:20 01/14/23 (units (unknown) date) unknown) (unknown) (no (unknown) (unknown) 19:20 (units (unkno wn) date) unknown) (unknown) (no (unknown) (unknown) 19:25 01/14/23 (units (unknown) date) unknown) (unknown) (no (unknown) (unknown) 19:30 01/14/23 (units (unknown) date) unknown) (unknown) (no (unknown) (unknown) 19:30 (units (unkno wn) date) unknown) (unknown) (no (unknown) (unknown) 19:34 01/14/23 (units (unknown) date) unknown) (unknown) (no (unknown) (unknown) 19:35 01/14/23 (units (unknown) date) unknown) (unknown) (no (unknown) (unknown) 19:35 (units (unkno wn) date) unknown) (unknown) (no (unknown) (unknown) 19:40 01/14/23 (units (unknown) date) unknown) (unknown) (no (unknown) (unknown) 19:40 (units (unkno wn) date) unknown) (unknown) (no (unknown) (unknown) 19:45 01/14/23 (units (unknown) date) unknown) (unknown) (no (unknown) (unknown) 19:50 01/14/23 (units (unknown) date) unknown) (unknown) (no (unknown) (unknown) 19:50 (units (unkno wn) date) unknown) (unknown) (no (unknown) (unknown) 19:55 01/14/23 (units (unknown) date) unknown) (unknown) (no (unknown) (unknown) 19:55 (units (unkno wn) date) unknown) (unknown) (no (unknown) (unknown) 2. Alcohol abuse, (units (unknown) date) acute on chronic, unknown) alcohol intoxication, acute, present on (unknown) (no (unknown) (unknown) 20:00 01/14/23 (units (unknown) date) unknown) (unknown) (no (unknown) (unknown) 20:05 01/14/23 (units (unknown) date) unknown) (unknown) (no (unknown) (unknown) 20:05 (units (unkno wn) date) unknown) (unknown) (no (unknown) (unknown) 20:30 01/14/23 (units (unknown) date) unknown) (unknown) (no (unknown) (unknown) 20:30 (units (unkno wn) date) unknown) (unknown) (no (unknown) (unknown) 21:00 01/14/23 (units (unknown) date) unknown) (unknown) (no (unknown) (unknown) 21:30 01/14/23 (units (unknown) date) unknown) (unknown) (no (unknown) (unknown) 21:30 (units (unkno wn) date) unknown) (unknown) (no (unknown) (unknown) 22:00 01/14/23 (units (unknown) date) unknown) (unknown) (no (unknown) (unknown) 22:25 (units (unkno wn) date) unknown) (unknown) (no (unknown) (unknown) 3. Atrial (units (unkn own) date) fibrillation, unknown) acute, present on admission-resolved (unknown) (no (unknown) (unknown) 4. (units (unkno wn) date) Insulin-dependent unknown) type 1 diabetes with associated dyslipidemia, (unknown) (no (unknown) (unknown) 5. Hypertension, (units (unknown) date) essential, present unknown) on admission (unknown) (no (unknown) (unknown) 6. Chronic low (units (unknown) date) back pain, chronic, unknown) present on admission (unknown) (no (unknown) (unknown) 7. BPH, chronic, (units (unknown) date) present on unknown) admission (unknown) (no (unknown) (unknown) 8. Overweight, (units (unknown) date) moderate, acute on unknown) chronic, present on admission (unknown) (no (unknown) (unknown) AGE 12YR (units (unkno wn) date) unknown) (unknown) (no (unknown) (unknown) ALT 88 H (units (unkno wn) date) unknown) (unknown) (no (unknown) (unknown) ALT (units (unkno wn) date) unknown) (unknown) (no (unknown) (unknown) APTT 34 (units (unkno wn) date) unknown) (unknown) (no (unknown) (unknown) APTT (units (unkno wn) date) unknown) (unknown) (no (unknown) (unknown) AST 87 H (units (unkno wn) date) unknown) (unknown) (no (unknown) (unknown) AST (units (unkno wn) date) unknown) (unknown) (no (unknown) (unknown) Abdomen: Soft (units ( unknown) date) nontender, negative unknown) for organomegaly, or masses. Bowel sounds (unknown) (no (unknown) (unknown) Age/Sex: 53 / M (units (unknown) date) unknown) (unknown) (no (unknown) (unknown) Albumin 4.0 (units (un known) date) unknown) (unknown) (no (unknown) (unknown) Albumin (units (unkno wn) date) unknown) (unknown) (no (unknown) (unknown) Albumin/Globulin (units (unknown) date) Ratio 1.3 unknown) (unknown) (no (unknown) (unknown) Albumin/Globulin (units (unknown) date) Ratio unknown) (unknown) (no (unknown) (unknown) Alcohol (units (unkno wn) date) intoxication unknown) (unknown) (no (unknown) (unknown) Alkaline (units (unkno wn) date) Phosphatase 146 H unknown) (unknown) (no (unknown) (unknown) Alkaline (units (unkno wn) date) Phosphatase unknown) (unknown) (no (unknown) (unknown) Allergies (units (unkn own) date) unknown) (unknown) (no (unknown) (unknown) Allergy/AdvReac (units (unknown) date) Type Severity unknown) Reaction Status Date / Time (unknown) (no (unknown) (unknown) Antibody Screen (units (unknown) date) Negative unknown) (unknown) (no (unknown) (unknown) Antibody Screen (units (unknown) date) unknown) (unknown) (no (unknown) (unknown) Assessment + Plan (units (unknown) date) narrative: unknown) (unknown) (no (unknown) (unknown) Assessment + Plan (units (unknown) date) unknown) (unknown) (no (unknown) (unknown) BPH (benign (units (un known) date) prostatic unknown) hyperplasia) (unknown) (no (unknown) (unknown) BUN 8 L (units (unkno wn) date) unknown) (unknown) (no (unknown) (unknown) BUN (units (unkno wn) date) unknown) (unknown) (no (unknown) (unknown) BUN/Creatinine (units (unknown) date) Ratio 19.0 unknown) (unknown) (no (unknown) (unknown) BUN/Creatinine (units (unknown) date) Ratio unknown) (unknown) (no (unknown) (unknown) BURNING' (units (unkno wn) date) unknown) (unknown) (no (unknown) (unknown) Baso # (Auto) 100 (units (unknown) date) unknown) (unknown) (no (unknown) (unknown) Baso # (Auto) (units ( unknown) date) unknown) (unknown) (no (unknown) (unknown) Baso % (Auto) 1.4 (units (unknown) date) unknown) (unknown) (no (unknown) (unknown) Baso % (Auto) (units ( unknown) date) unknown) (unknown) (no (unknown) (unknown) Blood Pressure (units (unknown) date) 106/52 L 113/56 L unknown) (unknown) (no (unknown) (unknown) Blood Pressure (units (unknown) date) 121/73 unknown) (unknown) (no (unknown) (unknown) Blood Pressure (units (unknown) date) 129/80 138/76 unknown) (unknown) (no (unknown) (unknown) Blood Pressure (units (unknown) date) 130/82 162/103 H unknown) (unknown) (no (unknown) (unknown) Blood Pressure (units (unknown) date) 132/96 H 169/93 H unknown) (unknown) (no (unknown) (unknown) Blood Pressure (units (unknown) date) 137/72 unknown) (unknown) (no (unknown) (unknown) Blood Pressure (units (unknown) date) 137/85 unknown) (unknown) (no (unknown) (unknown) Blood Pressure (units (unknown) date) 138/102 H 130/92 H unknown) (unknown) (no (unknown) (unknown) Blood Pressure (units (unknown) date) 142/89 H unknown) (unknown) (no (unknown) (unknown) Blood Pressure (units (unknown) date) 143/94 H 141/93 H unknown) (unknown) (no (unknown) (unknown) Blood Pressure (units (unknown) date) 148/82 H unknown) (unknown) (no (unknown) (unknown) Blood Pressure (units (unknown) date) 155/95 H 124/84 unknown) (unknown) (no (unknown) (unknown) Blood Pressure (units (unknown) date) 158/95 H unknown) (unknown) (no (unknown) (unknown) Blood Pressure (units (unknown) date) 172/88 H unknown) (unknown) (no (unknown) (unknown) Blood Pressure (units (unknown) date) 175/108 H unknown) (unknown) (no (unknown) (unknown) Blood Pressure (units (unknown) date) unknown) (unknown) (no (unknown) (unknown) Blood Type O (units (u nknown) date) Positive unknown) (unknown) (no (unknown) (unknown) Blood Type (units (unk nown) date) unknown) (unknown) (no (unknown) (unknown) COVID PCR: (units (unk nown) date) Negative unknown) (unknown) (no (unknown) (unknown) Calcium 8.5 (units (un known) date) unknown) (unknown) (no (unknown) (unknown) Calcium (units (unkno wn) date) unknown) (unknown) (no (unknown) (unknown) Carbon Dioxide 30 (units (unknown) date) unknown) (unknown) (no (unknown) (unknown) Carbon Dioxide (units (unknown) date) unknown) (unknown) (no (unknown) (unknown) Cardio: regular (units (unknown) date) rate and rhythm unknown) without murmur, rubs, or gallops, no carotid (unknown) (no (unknown) (unknown) Chest: Breathing (units (unknown) date) no nasal flaring, unknown) retractions, or tachypneic labored (unknown) (no (unknown) (unknown) Chief complaint: (units (unknown) date) Trauma unknown) (unknown) (no (unknown) (unknown) Chloride 100 (units (u nknown) date) unknown) (unknown) (no (unknown) (unknown) Chloride (units (unkno wn) date) unknown) (unknown) (no (unknown) (unknown) Chronic low back (units (unknown) date) pain unknown) (unknown) (no (unknown) (unknown) Code status: Full (units (unknown) date) unknown) (unknown) (no (unknown) (unknown) Comment: (units (unkno wn) date) unknown) (unknown) (no (unknown) (unknown) Congestive heart (units (unknown) date) failure unknown) (unknown) (no (unknown) (unknown) Creatinine 0.42 L (units (unknown) date) unknown) (unknown) (no (unknown) (unknown) Creatinine (units (unk nown) date) unknown) (unknown) (no (unknown) (unknown) : 1970 (units (unknown) date) Acct:[id number] unknown) (unknown) (no (unknown) (unknown) DVT/VTE (units (unkno wn) date) prophylaxis: unknown) Holding Lovenox until brain MR completed, SCDs only (unknown) (no (unknown) (unknown) Date Patient Seen: (units (unknown) date) 01/14/23 unknown) (unknown) (no (unknown) (unknown) Date of Service: (units (unknown) date) 01/14/23 unknown) (unknown) (no (unknown) (unknown) Day#4QD (units (unkno wn) date) unknown) (unknown) (no (unknown) (unknown) Disposition: (units (u nknown) date) Patient admitted to unknown) acute care expected length of stay greater (unknown) (no (unknown) (unknown) Drinks a 5th of (units (unknown) date) vodka daily unknown) (unknown) (no (unknown) (unknown) ED made multiple (units (unknown) date) attempts to unknown) transfer patient for detox, but was refused due to (unknown) (no (unknown) (unknown) Eos # (Auto) 100 (units (unknown) date) unknown) (unknown) (no (unknown) (unknown) Eos # (Auto) (units (u nknown) date) unknown) (unknown) (no (unknown) (unknown) Eos % (Auto) 2.2 (units (unknown) date) unknown) (unknown) (no (unknown) (unknown) Eos % (Auto) (units (u nknown) date) unknown) (unknown) (no (unknown) (unknown) Essential (units (unkn own) date) hypertension unknown) (unknown) (no (unknown) (unknown) Estimated GFR > 60 (units (unknown) date) unknown) (unknown) (no (unknown) (unknown) Estimated GFR (units ( unknown) date) unknown) (unknown) (no (unknown) (unknown) Ethyl Alcohol 308 (units (unknown) date) H unknown) (unknown) (no (unknown) (unknown) Ethyl Alcohol 91 H (units (unknown) date) unknown) (unknown) (no (unknown) (unknown) Ethyl Alcohol (units ( unknown) date) unknown) (unknown) (no (unknown) (unknown) Exam Narrative: (units (unknown) date) unknown) (unknown) (no (unknown) (unknown) Exam (units (unkno wn) date) unknown) (unknown) (no (unknown) (unknown) FEELS LIKE (units (unk nown) date) unknown) (unknown) (no (unknown) (unknown) Family History (units (unknown) date) (Updated 01/15/23 @ unknown) 02:24 by Genesis Dunn COPY PREPARER-) (unknown) (no (unknown) (unknown) Father Diabetes (units (unknown) date) mellitus unknown) (unknown) (no (unknown) (unknown) General: Patient (units (unknown) date) is disheveled, unknown) appears chronically ill and unwell, with (unknown) (no (unknown) (unknown) Globulin 3.2 (units (u nknown) date) unknown) (unknown) (no (unknown) (unknown) Globulin (units (unkno wn) date) unknown) (unknown) (no (unknown) (unknown) Glucose 254 H (units ( unknown) date) unknown) (unknown) (no (unknown) (unknown) Glucose (units (unkno wn) date) unknown) (unknown) (no (unknown) (unknown) HEARING (units (unkno wn) date) unknown) (unknown) (no (unknown) (unknown) HEENT: (units (unkno wn) date) Normocephalic, unknown) extraocular muscles intact, oral pharynx is clear and (unknown) (no (unknown) (unknown) HLD, BPH, (units (unkno wn) date) insulin-dependent unknown) diabetes and chronic low back pain tx with InterStim (unknown) (no (unknown) (unknown) Hct 36.9 L (units (unk nown) date) unknown) (unknown) (no (unknown) (unknown) Hct (units (unkno wn) date) unknown) (unknown) (no (unknown) (unknown) Hgb 12.3 L (units (unk nown) date) unknown) (unknown) (no (unknown) (unknown) Hgb (units (unkno wn) date) unknown) (unknown) (no (unknown) (unknown) History + Physical (units (unknown) date) Report unknown) (unknown) (no (unknown) (unknown) History of Present (units (unknown) date) Illness unknown) (unknown) (no (unknown) (unknown) History of (units (unk nown) date) shoulder surgery unknown) (unknown) (no (unknown) (unknown) History (units (unkno wn) date) unknown) (unknown) (no (unknown) (unknown) Home Medications (units (unknown) date) and Allergies unknown) (unknown) (no (unknown) (unknown) Home Medications (units (unknown) date) unknown) (unknown) (no (unknown) (unknown) Hyperlipidemia due (units (unknown) date) to type 1 diabetes unknown) mellitus (unknown) (no (unknown) (unknown) I confirmed that (units (unknown) date) the patient's unknown) advanced care plan is present, Code status is (unknown) (no (unknown) (unknown) I have personally (units (unknown) date) reviewed patient's unknown) chart notes from PCP, specialists, (unknown) (no (unknown) (unknown) I have utilized (units (unknown) date) all available unknown) immediate resources to obtain, update, or review (unknown) (no (unknown) (unknown) INR 1.0 (units (unkno wn) date) unknown) (unknown) (no (unknown) (unknown) INR (units (unkno wn) date) unknown) (unknown) (no (unknown) (unknown) [facility] (units (unknown) date) [address] unknown) [place] [id number] (unknown) (no (unknown) (unknown) JVD (units (unkno wn) date) unknown) (unknown) (no (unknown) (unknown) LOSS AT (units (unkno wn) date) unknown) (unknown) (no (unknown) (unknown) Laboratory Results (units (unknown) date) - last 24 hr unknown) (unknown) (no (unknown) (unknown) Labs (units (unkno wn) date) unknown) (unknown) (no (unknown) (unknown) Labs: (units (unkno wn) date) unknown) (unknown) (no (unknown) (unknown) Lactate 2.1 1.9 (units (unknown) date) unknown) (unknown) (no (unknown) (unknown) Lactate (units (unkno wn) date) unknown) (unknown) (no (unknown) (unknown) Lipase 109 (units (unk nown) date) unknown) (unknown) (no (unknown) (unknown) Lipase (units (unkno wn) date) unknown) (unknown) (no (unknown) (unknown) Lungs: (units (unkno wn) date) Auscultation of all unknown) lung lopez are clear without adventitious sounds, (unknown) (no (unknown) (unknown) Lymph # (Auto) (units (unknown) date) 1700 unknown) (unknown) (no (unknown) (unknown) Lymph # (Auto) (units (unknown) date) unknown) (unknown) (no (unknown) (unknown) Lymph % (Auto) (units (unknown) date) 39.1 unknown) (unknown) (no (unknown) (unknown) Lymph % (Auto) (units (unknown) date) unknown) (unknown) (no (unknown) (unknown) MCH 32.5 (units (unkno wn) date) unknown) (unknown) (no (unknown) (unknown) MCH (units (unkno wn) date) unknown) (unknown) (no (unknown) (unknown) MCHC 33.5 (units (unkn own) date) unknown) (unknown) (no (unknown) (unknown) MCHC (units (unkno wn) date) unknown) (unknown) (no (unknown) (unknown) MCV 97.1 (units (unkno wn) date) unknown) (unknown) (no (unknown) (unknown) MCV (units (unkno wn) date) unknown) (unknown) (no (unknown) (unknown) Medical History (units (unknown) date) (Reviewed 01/15/23 unknown) @ 02:22 by SOMMER Chairez) (unknown) (no (unknown) (unknown) Medication (units (unk nown) date) Instructions unknown) Recorded Confirmed Type (unknown) (no (unknown) (unknown) Meds (units (unkno wn) date) unknown) (unknown) (no (unknown) (unknown) Octavio Romo is a (units (unknown) date) 53-year-old male unknown) with known history of alcohol abuse, HTN, (unknown) (no (unknown) (unknown) Micro UA Comment (units (unknown) date) Microscopic normal unknown) (unknown) (no (unknown) (unknown) Micro UA Comment (units (unknown) date) unknown) (unknown) (no (unknown) (unknown) Pender # (Auto) 600 (units (unknown) date) unknown) (unknown) (no (unknown) (unknown) Pender # (Auto) (units ( unknown) date) unknown) (unknown) (no (unknown) (unknown) Pender % (Auto) 14.9 (units (unknown) date) H unknown) (unknown) (no (unknown) (unknown) Pender % (Auto) (units ( unknown) date) unknown) (unknown) (no (unknown) (unknown) Mother (units (unknown) date) Diabetes mellitus unknown) (unknown) (no (unknown) (unknown) Multiple falls (units (unknown) date) unknown) (unknown) (no (unknown) (unknown) Musculoskeletal: (units (unknown) date) Muscle strength and unknown) tone appear wasting, no deformity, (unknown) (no (unknown) (unknown) Narrative (units (unkn own) date) unknown) (unknown) (no (unknown) (unknown) Narrative: (units (unk nown) date) unknown) (unknown) (no (unknown) (unknown) Neuro: Alert to (units (unknown) date) self, confused, unknown) moves all extremities, sensation to touch (unknown) (no (unknown) (unknown) Neut # (Auto) 1800 (units (unknown) date) unknown) (unknown) (no (unknown) (unknown) Neut # (Auto) (units ( unknown) date) unknown) (unknown) (no (unknown) (unknown) Neut % (Auto) 42.4 (units (unknown) date) L unknown) (unknown) (no (unknown) (unknown) Neut % (Auto) (units ( unknown) date) unknown) (unknown) (no (unknown) (unknown) Objective (units (unkn own) date) unknown) (unknown) (no (unknown) (unknown) Oxygen Delivery (units (unknown) date) Method Room Air unknown) (unknown) (no (unknown) (unknown) Oxygen Delivery (units (unknown) date) Method unknown) (unknown) (no (unknown) (unknown) PFSH (units (unkno wn) date) unknown) (unknown) (no (unknown) (unknown) PT 11.2 (units (unkno wn) date) unknown) (unknown) (no (unknown) (unknown) PT (units (unkno wn) date) unknown) (unknown) (no (unknown) (unknown) Patient will be (units (unknown) date) admitted to the unknown) hospital for evaluation of head injury following (unknown) (no (unknown) (unknown) Patient: (units (unkno wn) date) Octavio Romo unknown) MR#: [id number] (unknown) (no (unknown) (unknown) Plt Count 296 (units ( unknown) date) unknown) (unknown) (no (unknown) (unknown) Plt Count (units (unkn own) date) unknown) (unknown) (no (unknown) (unknown) Potassium 3.9 (units ( unknown) date) unknown) (unknown) (no (unknown) (unknown) Potassium (units (unkn own) date) unknown) (unknown) (no (unknown) (unknown) Provider: (units (unkn own) date) Genesis Dunn unknown) COPY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 (unknown) (no (unknown) (unknown) Psych: Patient has (units (unknown) date) a poor kept unknown) appearance, calm inappropriate affect-does not (unknown) (no (unknown) (unknown) Pulse Oximetry 91 (units (unknown) date) 96 unknown) (unknown) (no (unknown) (unknown) Pulse Oximetry 92 (units (unknown) date) unknown) (unknown) (no (unknown) (unknown) Pulse Oximetry 94 (units (unknown) date) 94 unknown) (unknown) (no (unknown) (unknown) Pulse Oximetry 94 (units (unknown) date) 95 unknown) (unknown) (no (unknown) (unknown) Pulse Oximetry 94 (units (unknown) date) 96 unknown) (unknown) (no (unknown) (unknown) Pulse Oximetry 94 (units (unknown) date) unknown) (unknown) (no (unknown) (unknown) Pulse Oximetry 95 (units (unknown) date) 95 100 unknown) (unknown) (no (unknown) (unknown) Pulse Oximetry 95 (units (unknown) date) 96 unknown) (unknown) (no (unknown) (unknown) Pulse Oximetry 95 (units (unknown) date) unknown) (unknown) (no (unknown) (unknown) Pulse Oximetry 96 (units (unknown) date) 94 unknown) (unknown) (no (unknown) (unknown) Pulse Oximetry 96 (units (unknown) date) 96 unknown) (unknown) (no (unknown) (unknown) Pulse Oximetry 96 (units (unknown) date) unknown) (unknown) (no (unknown) (unknown) Pulse Rate 156 H (units (unknown) date) unknown) (unknown) (no (unknown) (unknown) Pulse Rate 69 (units ( unknown) date) unknown) (unknown) (no (unknown) (unknown) Pulse Rate 71 (units ( unknown) date) unknown) (unknown) (no (unknown) (unknown) Pulse Rate 74 101 (units (unknown) date) H unknown) (unknown) (no (unknown) (unknown) Pulse Rate 74 (units ( unknown) date) unknown) (unknown) (no (unknown) (unknown) Pulse Rate 75 (units ( unknown) date) unknown) (unknown) (no (unknown) (unknown) Pulse Rate 77 (units ( unknown) date) unknown) (unknown) (no (unknown) (unknown) Pulse Rate 78 60 (units (unknown) date) 57 L unknown) (unknown) (no (unknown) (unknown) Pulse Rate 78 74 (units (unknown) date) unknown) (unknown) (no (unknown) (unknown) Pulse Rate 81 77 (units (unknown) date) unknown) (unknown) (no (unknown) (unknown) Pulse Rate 83 80 (units (unknown) date) unknown) (unknown) (no (unknown) (unknown) Pulse Rate 85 78 (units (unknown) date) 168 H unknown) (unknown) (no (unknown) (unknown) Pulse Rate 89 94 H (units (unknown) date) unknown) (unknown) (no (unknown) (unknown) Pulse Rate 93 H 78 (units (unknown) date) unknown) (unknown) (no (unknown) (unknown) Pulse Rate 97 H 96 (units (unknown) date) H unknown) (unknown) (no (unknown) (unknown) RBC 3.80 L (units (unk nown) date) unknown) (unknown) (no (unknown) (unknown) RBC (units (unkno wn) date) unknown) (unknown) (no (unknown) (unknown) RDW 13.2 (units (unkno wn) date) unknown) (unknown) (no (unknown) (unknown) RDW (units (unkno wn) date) unknown) (unknown) (no (unknown) (unknown) Respiratory Rate (units (unknown) date) 10 L unknown) (unknown) (no (unknown) (unknown) Respiratory Rate (units (unknown) date) 11 L unknown) (unknown) (no (unknown) (unknown) Respiratory Rate (units (unknown) date) 13 13 unknown) (unknown) (no (unknown) (unknown) Respiratory Rate (units (unknown) date) 13 unknown) (unknown) (no (unknown) (unknown) Respiratory Rate (units (unknown) date) 14 14 unknown) (unknown) (no (unknown) (unknown) Respiratory Rate (units (unknown) date) 14 23 unknown) (unknown) (no (unknown) (unknown) Respiratory Rate (units (unknown) date) 14 unknown) (unknown) (no (unknown) (unknown) Respiratory Rate (units (unknown) date) 15 unknown) (unknown) (no (unknown) (unknown) Respiratory Rate (units (unknown) date) 16 unknown) (unknown) (no (unknown) (unknown) Respiratory Rate (units (unknown) date) 18 0 L 17 unknown) (unknown) (no (unknown) (unknown) Respiratory Rate (units (unknown) date) 19 15 unknown) (unknown) (no (unknown) (unknown) Respiratory Rate (units (unknown) date) 19 18 20 unknown) (unknown) (no (unknown) (unknown) Respiratory Rate (units (unknown) date) 24 17 unknown) (unknown) (no (unknown) (unknown) Respiratory Rate (units (unknown) date) unknown) (unknown) (no (unknown) (unknown) Review of Systems (units (unknown) date) unknown) (unknown) (no (unknown) (unknown) SARS-CoV-2 (PCR) (units (unknown) date) Negative unknown) (unknown) (no (unknown) (unknown) SARS-CoV-2 (PCR) (units (unknown) date) unknown) (unknown) (no (unknown) (unknown) Signed (units (unkno wn) date) By:<Electronically unknown) signed by Genesis Dunn> (unknown) (no (unknown) (unknown) Skin: scabbed (units ( unknown) date) superficial unknown) laceration over his right forehead, small burn right (unknown) (no (unknown) (unknown) Smoking Status: (units (unknown) date) Never smoker unknown) (unknown) (no (unknown) (unknown) Social History (units (unknown) date) (Updated 01/15/23 @ unknown) 02:23 by DOUG Chairez) (unknown) (no (unknown) (unknown) Sodium 140 (units (unk nown) date) unknown) (unknown) (no (unknown) (unknown) Sodium (units (unkno wn) date) unknown) (unknown) (no (unknown) (unknown) Solostar U-100 (units (unknown) date) Insulin) unknown) (unknown) (no (unknown) (unknown) Surgical History (units (unknown) date) (Reviewed 01/15/23 unknown) @ 02:22 by DUOG Chairez) (unknown) (no (unknown) (unknown) Surrogate decision (units (unknown) date) maker: Sun Yancey unknown) friend (unknown) (no (unknown) (unknown) Time Patient Seen: (units (unknown) date) 22:42 unknown) (unknown) (no (unknown) (unknown) Total Bilirubin (units (unknown) date) 0.4 unknown) (unknown) (no (unknown) (unknown) Total Bilirubin (units (unknown) date) unknown) (unknown) (no (unknown) (unknown) Total Protein 7.2 (units (unknown) date) unknown) (unknown) (no (unknown) (unknown) Total Protein (units ( unknown) date) unknown) (unknown) (no (unknown) (unknown) U Benzodiazepines (units (unknown) date) Scrn Positive H unknown) (unknown) (no (unknown) (unknown) U Benzodiazepines (units (unknown) date) Scrn unknown) (unknown) (no (unknown) (unknown) U Marijuana (THC) (units (unknown) date) Screen Negative unknown) (unknown) (no (unknown) (unknown) U Marijuana (THC) (units (unknown) date) Screen unknown) (unknown) (no (unknown) (unknown) U Methamphetamines (units (unknown) date) Scrn Negative unknown) (unknown) (no (unknown) (unknown) U Methamphetamines (units (unknown) date) Scrn unknown) (unknown) (no (unknown) (unknown) U Opiates 300ng/mL (units (unknown) date) cut Positive H unknown) (unknown) (no (unknown) (unknown) U Opiates 300ng/mL (units (unknown) date) cut unknown) (unknown) (no (unknown) (unknown) U Tricyclic (units (un known) date) Antidepress unknown) Negative (unknown) (no (unknown) (unknown) U Tricyclic (units (un known) date) Antidepress unknown) (unknown) (no (unknown) (unknown) Unable to obtain (units (unknown) date) accurate ROS due to unknown) encephalopathy-All 12 point systems (unknown) (no (unknown) (unknown) Ur Amphetamines (units (unknown) date) Screen Negative unknown) (unknown) (no (unknown) (unknown) Ur Amphetamines (units (unknown) date) Screen unknown) (unknown) (no (unknown) (unknown) Ur Barbiturates (units (unknown) date) Screen Negative unknown) (unknown) (no (unknown) (unknown) Ur Barbiturates (units (unknown) date) Screen unknown) (unknown) (no (unknown) (unknown) Ur Culture (units (unk nown) date) Indicated? Cult not unknown) indicated (unknown) (no (unknown) (unknown) Ur Culture (units (unk nown) date) Indicated? unknown) (unknown) (no (unknown) (unknown) Ur Leukocyte (units (u nknown) date) Esterase Negative unknown) (unknown) (no (unknown) (unknown) Ur Leukocyte (units (u nknown) date) Esterase unknown) (unknown) (no (unknown) (unknown) Ur MDMA Scrn (units (u nknown) date) (Ecstasy) Negative unknown) (unknown) (no (unknown) (unknown) Ur MDMA Scrn (units (u nknown) date) (Ecstasy) unknown) (unknown) (no (unknown) (unknown) Ur Oxycodone (units (u nknown) date) Screen Negative unknown) (unknown) (no (unknown) (unknown) Ur Oxycodone (units (u nknown) date) Screen unknown) (unknown) (no (unknown) (unknown) Ur Phencyclidine (units (unknown) date) Scrn Negative unknown) (unknown) (no (unknown) (unknown) Ur Phencyclidine (units (unknown) date) Scrn unknown) (unknown) (no (unknown) (unknown) Ur Specific (units (un known) date) [place] 1.010 unknown) (unknown) (no (unknown) (unknown) Ur Specific (units (un known) date) [place] unknown) (unknown) (no (unknown) (unknown) Urine Appearance (units (unknown) date) Clear unknown) (unknown) (no (unknown) (unknown) Urine Appearance (units (unknown) date) unknown) (unknown) (no (unknown) (unknown) Urine Bacteria (units (unknown) date) None seen unknown) (unknown) (no (unknown) (unknown) Urine Bacteria (units (unknown) date) unknown) (unknown) (no (unknown) (unknown) Urine Bilirubin (units (unknown) date) Negative unknown) (unknown) (no (unknown) (unknown) Urine Bilirubin (units (unknown) date) unknown) (unknown) (no (unknown) (unknown) Urine Cocaine (units ( unknown) date) Screen Negative unknown) (unknown) (no (unknown) (unknown) Urine Cocaine (units ( unknown) date) Screen unknown) (unknown) (no (unknown) (unknown) Urine Color Yellow (units (unknown) date) unknown) (unknown) (no (unknown) (unknown) Urine Color (units (un known) date) unknown) (unknown) (no (unknown) (unknown) Urine Glucose (UA) (units (unknown) date) 2+ H unknown) (unknown) (no (unknown) (unknown) Urine Glucose (UA) (units (unknown) date) unknown) (unknown) (no (unknown) (unknown) Urine Ketones (units ( unknown) date) Negative unknown) (unknown) (no (unknown) (unknown) Urine Ketones (units ( unknown) date) unknown) (unknown) (no (unknown) (unknown) Urine Methadone (units (unknown) date) Screen Negative unknown) (unknown) (no (unknown) (unknown) Urine Methadone (units (unknown) date) Screen unknown) (unknown) (no (unknown) (unknown) Urine Nitrate (units ( unknown) date) Negative unknown) (unknown) (no (unknown) (unknown) Urine Nitrate (units ( unknown) date) unknown) (unknown) (no (unknown) (unknown) Urine Occult Blood (units (unknown) date) Negative unknown) (unknown) (no (unknown) (unknown) Urine Occult Blood (units (unknown) date) unknown) (unknown) (no (unknown) (unknown) Urine Protein (units ( unknown) date) Negative unknown) (unknown) (no (unknown) (unknown) Urine Protein (units ( unknown) date) unknown) (unknown) (no (unknown) (unknown) Urine RBC None (units (unknown) date) seen unknown) (unknown) (no (unknown) (unknown) Urine RBC (units (unkn own) date) unknown) (unknown) (no (unknown) (unknown) Urine Urobilinogen (units (unknown) date) 1.0 unknown) (unknown) (no (unknown) (unknown) Urine Urobilinogen (units (unknown) date) unknown) (unknown) (no (unknown) (unknown) Urine WBC None (units (unknown) date) seen unknown) (unknown) (no (unknown) (unknown) Urine WBC (units (unkn own) date) unknown) (unknown) (no (unknown) (unknown) Urine pH 6.5 (units (u nknown) date) unknown) (unknown) (no (unknown) (unknown) Urine pH (units (unkno wn) date) unknown) (unknown) (no (unknown) (unknown) Vital Signs (units (un known) date) unknown) (unknown) (no (unknown) (unknown) WAS (units (unkno wn) date) unknown) (unknown) (no (unknown) (unknown) WBC 4.3 L (units (unkn own) date) unknown) (unknown) (no (unknown) (unknown) WBC (units (unkno wn) date) unknown) (unknown) (no (unknown) (unknown) When asked on (units ( unknown) date) admit regarding unknown) code status patient requested to be a full code, (unknown) (no (unknown) (unknown) [Embedded Image (units (unknown) date) Not Available] unknown) (unknown) (no (unknown) (unknown) [From BETADINE] (units (unknown) date) FEELS LIKE unknown) (unknown) (no (unknown) (unknown) [SHELLFISH (units (unk nown) date) DERIVED] LIKE IT unknown) (unknown) (no (unknown) (unknown) a fall and (units (unk nown) date) encephalopathy, MR, unknown) PT and OT evaluation, rehydration and management (unknown) (no (unknown) (unknown) acute distress at (units (unknown) date) this time. unknown) (unknown) (no (unknown) (unknown) adenopathy, no (units (unknown) date) thyroid unknown) enlargement, nontender, no masses palpated. Negative for (unknown) (no (unknown) (unknown) admission (units (unkn own) date) unknown) (unknown) (no (unknown) (unknown) admit patient is (units (unknown) date) unable to state unknown) where he is unable to recall how or when he (unknown) (no (unknown) (unknown) alcohol intake: (units (unknown) date) current unknown) (unknown) (no (unknown) (unknown) and L1/L2 (units (unkn own) date) transverse process unknown) fracture. (unknown) (no (unknown) (unknown) and denied suicide (units (unknown) date) ideation. patient unknown) is hemodynamically stable pleasant (unknown) (no (unknown) (unknown) anterior lower (units (unknown) date) extremity, unknown) significant deep bruising to lower coccyx area. (unknown) (no (unknown) (unknown) appear to (units (unkn own) date) appreciate severity unknown) of injuries and state of health, mental status (unknown) (no (unknown) (unknown) are present in all (units (unknown) date) 4 quadrants without unknown) guarding or rebound, no CVA tenderness. (unknown) (no (unknown) (unknown) atorvastatin 40 mg (units (unknown) date) tablet 40 mg PO unknown) BEDTIME 01/14/23 01/14/23 History (unknown) (no (unknown) (unknown) attempts to (units (un known) date) transfer patient unknown) for detox, but was refused due to hyperglycemia, (unknown) (no (unknown) (unknown) attitude thought (units (unknown) date) context and unknown) judgment are in appropriate for age. (unknown) (no (unknown) (unknown) been called to the (units (unknown) date) patient's home unknown) several times over the last few days, he was (unknown) (no (unknown) (unknown) bleed (units (unkno wn) date) unknown) (unknown) (no (unknown) (unknown) blood and broken (units (unknown) date) glass around him. unknown) Patient was seen and evaluated by GEOLOGY INSTRUCTOR in the (unknown) (no (unknown) (unknown) bruising left (units (u nknown) date) abdomen, upper abd, unknown) chest, scabbed abrasion to left anterior lower (unknown) (no (unknown) (unknown) bruit, no cardiac (units (unknown) date) pulsations present. unknown) (unknown) (no (unknown) (unknown) converses easily (units (unknown) date) but is confused. unknown) WBC 4.3, H+H 12.3/36.9, initial glucose 344, (unknown) (no (unknown) (unknown) covered in a (units (u nknown) date) variety of multiple unknown) injuries in varying degrees healing, a scabbed (unknown) (no (unknown) (unknown) crepitus, (units (unkn own) date) effusions, unknown) cyanosis, clubbing or edema present. Full range of motion (unknown) (no (unknown) (unknown) dextroamphetamine- (units (unknown) date) amphetamine 20 20 unknown) mg PO BID 01/14/23 01/14/23 History (unknown) (no (unknown) (unknown) diagnostic (units (unk nown) date) imaging, and unknown) laboratory results. (unknown) (no (unknown) (unknown) did not answer.? (units (unknown) date) Patient was seen unknown) and evaluated by GEOLOGY INSTRUCTOR in the ED made multiple (unknown) (no (unknown) (unknown) dietary, (units (unkno wn) date) lifestyle, unknown) exercise, and weight changes. (unknown) (no (unknown) (unknown) diffuse multiple (units (unknown) date) injuries in various unknown) stages of healing from head to toe, in no (unknown) (no (unknown) (unknown) documented and/or (units (unknown) date) surrogate decision unknown) maker is listed in the patient's medical (unknown) (no (unknown) (unknown) elevated QTC on (units (unknown) date) EKG, and unknown) encephalopathy. Unable to obtain accurate HPI, ROS due (unknown) (no (unknown) (unknown) extremities well.? (units (unknown) date) Is conversant but unknown) confused.? Patient states he drinks at (unknown) (no (unknown) (unknown) extremity, (units (unk nown) date) significant deep unknown) bruising to lower coccyx area. Patient denies (unknown) (no (unknown) (unknown) fall, head injury, (units (unknown) date) atrial unknown) fibrillation, encephalopathy, ETOH abuse/intoxication, (unknown) (no (unknown) (unknown) fall, head injury, (units (unknown) date) encephalopathy, unknown) ETOH abuse/intoxication, hyperglycemia. (unknown) (no (unknown) (unknown) forearm, bruising (units (unknown) date) left abdomen + unknown) upper abd, + chest, scabbed abrasion to left (unknown) (no (unknown) (unknown) found down this (units (unknown) date) evening on the unknown) bathroom floor with broken glass perhaps broken (unknown) (no (unknown) (unknown) furosemide 20 mg (units (unknown) date) tablet 20 mg PO unknown) DAILY 01/14/23 01/14/23 History (unknown) (no (unknown) (unknown) head CT negative, (units (unknown) date) CT of unknown) abdomen/pelvis multiple remote left rib fractures, left (unknown) (no (unknown) (unknown) household members: (units (unknown) date) none unknown) (unknown) (no (unknown) (unknown) hyperglycemia, (units (unknown) date) acute on chronic, unknown) present on admission-uncontrol led/noncompliant (unknown) (no (unknown) (unknown) hyperglycemia, (units (unknown) date) elevated QTC on unknown) EKG, and encephalopathy. Patient admitted for (unknown) (no (unknown) (unknown) hyperglycemia. (units (unknown) date) unknown) (unknown) (no (unknown) (unknown) insulin glargine (units (unknown) date) 100 unit/mL (3 20 unknown) unit SUBCUT BEDTIME 01/14/23 01/14/23 History (unknown) (no (unknown) (unknown) insulin lispro 100 (units (unknown) date) unit/mL See Rx unknown) Instructions .Route .COMPLEX 01/14/23 01/14/23 (unknown) (no (unknown) (unknown) intact radial and (units (unknown) date) pedal pulses are unknown) normal. (unknown) (no (unknown) (unknown) intact, no gross (units (unknown) date) deficits noted of unknown) cranial nerves. (unknown) (no (unknown) (unknown) kill himself when (units (unknown) date) asked why he did unknown) not answer'? When asked if he has a plan he (unknown) (no (unknown) (unknown) least a 5th of (units (unknown) date) Vodka daily, denies unknown) tobacco or illicit.? Patient is unable to (unknown) (no (unknown) (unknown) losartan 100 mg (units (unknown) date) tablet 100 mg PO unknown) DAILY 01/14/23 01/14/23 History (unknown) (no (unknown) (unknown) mL) subcutaneous (units (unknown) date) pen (Lantus unknown) (unknown) (no (unknown) (unknown) metoprolol at (units ( unknown) date) which time it unknown) resolved (unknown) (no (unknown) (unknown) mg tablet (units (unkn own) date) unknown) (unknown) (no (unknown) (unknown) mirror and blood (units (unknown) date) at the scene. unknown) Patient is confused, but redirectable. During (unknown) (no (unknown) (unknown) mucous membranes (units (unknown) date) are dry. Neck is unknown) supple and symmetric, trachea is midline, no (unknown) (no (unknown) (unknown) negative, tox (units ( unknown) date) screen is positive unknown) for opiates and benzos, initial ETOH 308, (unknown) (no (unknown) (unknown) obtain these (units (u nknown) date) injuries in the unknown) events that led him to the hospital today. He is (unknown) (no (unknown) (unknown) of alcohol (units (unk nown) date) withdrawal, unknown) monitoring for reoccurrence of AFib, and correct blood (unknown) (no (unknown) (unknown) pain, no shortness (units (unknown) date) of breath, no GI or unknown) urinary symptoms.? He is moving all his (unknown) (no (unknown) (unknown) patient's obesity (units (unknown) date) increases the unknown) difficulty and complexity of medical and/or (unknown) (no (unknown) (unknown) penicillin G (units (u nknown) date) [PENICILLIN G] unknown) Allergy Unknown LEFT EAR Verified 07/27/18 10:10 (unknown) (no (unknown) (unknown) povidone-iodine (units (unknown) date) Allergy Unknown unknown) 'SKIN Verified 07/27/18 10:10 (unknown) (no (unknown) (unknown) propranolol 20 mg (units (unknown) date) tablet 20 mg PO BID unknown) 01/14/23 01/14/23 History (unknown) (no (unknown) (unknown) recall what his (units (unknown) date) medications are he unknown) believes he is on insulins but he has no idea (unknown) (no (unknown) (unknown) record. (units (unkno wn) date) unknown) (unknown) (no (unknown) (unknown) repeat 254, AST (units (unknown) date) 87, ALT 88, unknown) alk-phos 144, UA negative, lactate negative, lipase (unknown) (no (unknown) (unknown) repeat 91. COVID (units (unknown) date) negative. EKG sinus unknown) rhythm rate 72 QTC 499, without ST or T (unknown) (no (unknown) (unknown) reviewed with the (units (unknown) date) patient and are unknown) negative except otherwise documented. (unknown) (no (unknown) (unknown) scapula fracture, (units (unknown) date) and L1/L2 unknown) transverse process fracture. Patient admitted for (unknown) (no (unknown) (unknown) shellfish derived (units (unknown) date) Allergy Unknown unknown) 'SKIN FELT Verified 07/27/18 10:10 (unknown) (no (unknown) (unknown) soap [From (units (unk nown) date) BETADINE] Allergy unknown) Unknown 'SKIN Verified 07/27/18 10:10 (unknown) (no (unknown) (unknown) stimulator in back (units (unknown) date) lumbar + Dilaudid unknown) pain pump in abdomen found down by EMS (unknown) (no (unknown) (unknown) stimulator in back (units (unknown) date) lumbar + Dilaudid unknown) pain pump in abdomen.? EMS had apparently (unknown) (no (unknown) (unknown) subcutaneous pen (units (unknown) date) (Humalog KwikPen unknown) (unknown) (no (unknown) (unknown) such as morbidity (units (unknown) date) and mortality as unknown) well as impaired wound healing. (unknown) (no (unknown) (unknown) sugars. (units (unkno wn) date) unknown) (unknown) (no (unknown) (unknown) superficial (units (un known) date) laceration over his unknown) right forehead, small burn right forearm, (unknown) (no (unknown) (unknown) surgical (units (unkno wn) date) interventions, unknown) management and increases the chances of poor outcome (unknown) (no (unknown) (unknown) tamsulosin 0.4 mg (units (unknown) date) capsule 0.4 mg PO unknown) DAILY 01/14/23 01/14/23 History (unknown) (no (unknown) (unknown) than 2 midnights. (units (unknown) date) unknown) (unknown) (no (unknown) (unknown) the patient's (units ( unknown) date) current unknown) medications. (unknown) (no (unknown) (unknown) this evening on (units (unknown) date) the bathroom floor unknown) confused, covered in multiple injuries with (unknown) (no (unknown) (unknown) to encephalopathy. (units (unknown) date) ED reported patient unknown) had an episode of atrial fibrillation (unknown) (no (unknown) (unknown) to kill himself to (units (unknown) date) the medics and when unknown) asked in ED he ' stated he did want to (unknown) (no (unknown) (unknown) to obesity as it (units (unknown) date) relates to chronic unknown) illnesses:, and acute illness. The (unknown) (no (unknown) (unknown) wave changes. (units ( unknown) date) Chest x-ray unknown) negative, C-spine negative, pelvic x-ray negative, (unknown) (no (unknown) (unknown) wheezes, rhonchi, (units (unknown) date) or rales. unknown) (unknown) (no (unknown) (unknown) when or if he is (units (unknown) date) taken his unknown) medication. He did make statements that he wanted (unknown) (no (unknown) (unknown) which metoprolol (units (unknown) date) was given and unknown) quickly resolved. Result panel 247 (unknown) (no date) (unknown) (unknown) 0 /ul (unkn own) (unknown) (no date) (unknown) (unknown) 0 /ul (unkn own) (unknown) (no date) (unknown) (unknown) 0.0 % (unkn own) (unknown) (no date) (unknown) (unknown) 0.3 % (unkn own) (unknown) (no date) (unknown) (unknown) 1000 /ul (unkn own) (unknown) (no date) (unknown) (unknown) 12.3 g/dl (unkn own) (unknown) (no date) (unknown) (unknown) 1200 /ul (unkn own) (unknown) (no date) (unknown) (unknown) 13.2 % (unkn own) (unknown) (no date) (unknown) (unknown) 14.4 % (unkn own) (unknown) (no date) (unknown) (unknown) 17.7 % (unkn own) (unknown) (no date) (unknown) (unknown) 3.72 x10 6/ul (unkn own) (unknown) (no date) (unknown) (unknown) 320 x10 3/ul (unkn own) (unknown) (no date) (unknown) (unknown) 33.0 pg (unkn own) (unknown) (no date) (unknown) (unknown) 34.4 % (unkn own) (unknown) (no date) (unknown) (unknown) 35.7 % (unkn own) (unknown) (no date) (unknown) (unknown) 4600 /ul (unkn own) (unknown) (no date) (unknown) (unknown) 6.8 x10 3/ul (unkn own) (unknown) (no date) (unknown) (unknown) 67.6 % (unkn own) (unknown) (no date) (unknown) (unknown) 95.9 fl (unkn own) Result panel 248 (unknown) (no date) (unknown) (unknown) > 60 ml/min (unkn own) (unknown) (no date) (unknown) (unknown) > 60 ml/min (unkn own) (unknown) (no date) (unknown) (unknown) < 10 mg/dl (unkn own) (unknown) (no date) (unknown) (unknown) < 10 mg/dl (unkn own) (unknown) (no date) (unknown) (unknown) 0.46 mg/dl (unkn own) (unknown) (no date) (unknown) (unknown) 0.7 mg/dl (unkn own) (unknown) (no date) (unknown) (unknown) 1.3 (units unknown) (unknown) (unknown) (no date) (unknown) (unknown) 1.5 mg/dl (unkn own) (unknown) (no date) (unknown) (unknown) 131 mmol/l (unkn own) (unknown) (no date) (unknown) (unknown) 135 u/l (unkn own) (unknown) (no date) (unknown) (unknown) 16 mg/dl (unkn own) (unknown) (no date) (unknown) (unknown) 2.9 g/dl (unkn own) (unknown) (no date) (unknown) (unknown) 262 mg/dl (unkn own) (unknown) (no date) (unknown) (unknown) 262 mg/dl (unkn own) (unknown) (no date) (unknown) (unknown) 3.9 g/dl (unkn own) (unknown) (no date) (unknown) (unknown) 34 mmol/l (unkn own) (unknown) (no date) (unknown) (unknown) 34.8 (units unknown) (unknown) (unknown) (no date) (unknown) (unknown) 399 u/l (unkn own) (unknown) (no date) (unknown) (unknown) 4.5 mmol/l (unkn own) (unknown) (no date) (unknown) (unknown) 6.8 g/dl (unkn own) (unknown) (no date) (unknown) (unknown) 75 iu/l (unkn own) (unknown) (no date) (unknown) (unknown) 78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 (unknown) Interpretation (units (unknown) date) Summary unknown) (unknown) (no (unknown) (unknown) [facility] (units (unknown) date) unknown) (unknown) (no (unknown) (unknown) [place] (units (unkno wn) date) unknown) (unknown) (no (unknown) (unknown) LA A2 area: 23.4 (units (unknown) date) cm2 RA long axis: unknown) 5.2 cm (unknown) (no (unknown) (unknown) LA A4 area: 26.3 (units (unknown) date) cm2 RA area: 17.4 unknown) cm2 (unknown) (no (unknown) (unknown) LA length (vol): (units (unknown) date) 6.4 cm RA vol: 49.6 unknown) ml (unknown) (no (unknown) (unknown) LA vol index: 38.0 (units (unknown) date) ml/m2 IVC diam: 1.6 unknown) cm (unknown) (no (unknown) (unknown) LA vol: 82.2 ml RA (units (unknown) date) : 22.9 ml/m2 unknown) (unknown) (no (unknown) (unknown) LV miguel. (units (unkno wn) date) diameter/BSA unknown) (cm/m2): 2.3 (unknown) (no (unknown) (unknown) LV sys. (units (unkno wn) date) diameter/BSA unknown) (cm/m2): 1.6 (unknown) (no (unknown) (unknown) LVIDd: 4.9 cm LVOT (units (unknown) date) diam: 2.4 cm unknown) (unknown) (no (unknown) (unknown) LVIDs: 3.5 cm Ao (units (unknown) date) root diam: 3.7 cm unknown) (unknown) (no (unknown) (unknown) LVPWd: 1.0 cm (units ( unknown) date) unknown) (unknown) (no (unknown) (unknown) Lat Peak E' Jean: (units (unknown) date) 10.4 cm/sec unknown) (unknown) (no (unknown) (unknown) Left Ventricle: (units (unknown) date) The left ventricle unknown) is normal in size and wall thickness. The (unknown) (no (unknown) (unknown) Loc: AC 206-1 (units ( unknown) date) unknown) (unknown) (no (unknown) (unknown) MMode/2D (units (unkno wn) date) Measurements + unknown) Calculations (unknown) (no (unknown) (unknown) MV A max jean: 73.2 (units (unknown) date) cm/sec PA V2 mean: unknown) 55.3 cm/sec (unknown) (no (unknown) (unknown) MV E max jean: 71.6 (units (unknown) date) cm/sec PA V2 max: unknown) 72.9 cm/sec (unknown) (no (unknown) (unknown) MV E/A: 0.98 PA (units (unknown) date) mean P.3 mmHg unknown) (unknown) (no (unknown) (unknown) MV dec time: 0.24 (units (unknown) date) sec unknown) (unknown) (no (unknown) (unknown) Med Peak E' Jean: (units (unknown) date) 7.5 cm/sec PA unknown) pr(Accel): 17.3 mmHg (unknown) (no (unknown) (unknown) Mitral Valve: The (units (unknown) date) mitral valve is unknown) normal in structure and function. There is (unknown) (no (unknown) (unknown) Normal echo study. (units (unknown) date) unknown) (unknown) (no (unknown) (unknown) Ordering Provider: (units (unknown) date) Chayo Callahan MD unknown) (unknown) (no (unknown) (unknown) Patient: (units (unkno wn) date) Octavio Romo unknown) MR#: [id number] (unknown) (no (unknown) (unknown) Pericardium/ (units (u nknown) date) Pleura There is no unknown) pericardial effusion. There is no pleural (unknown) (no (unknown) (unknown) Procedure: A (units (u nknown) date) two-dimensional unknown) transthoracic echocardiogram with color flow (unknown) (no (unknown) (unknown) Procedure: EC echo (units (unknown) date) doppler complete unknown) (unknown) (no (unknown) (unknown) Pulmonic Valve: (units (unknown) date) The pulmonic valve unknown) leaflets are thin and pliable; valve (unknown) (no (unknown) (unknown) Reading (units (unkno wn) date) Physician: unknown) 3 05:08 PM (unknown) (no (unknown) (unknown) Right Ventricle: (units (unknown) date) The right ventricle unknown) is normal in size and function. (unknown) (no (unknown) (unknown) SV(LVOT): 92.6 ml (units (unknown) date) unknown) (unknown) (no (unknown) (unknown) Signed (units (unkno wn) date) unknown) (unknown) (no (unknown) (unknown) TAPSE: 2.9 cm (units ( unknown) date) unknown) (unknown) (no (unknown) (unknown) There is no aortic (units (unknown) date) valve stenosis. No unknown) aortic regurgitation is present. (unknown) (no (unknown) (unknown) There is trace (units (unknown) date) tricuspid unknown) regurgitation. Pulmonary artery pressures cannot be (unknown) (no (unknown) (unknown) Tricuspid Valve: (units (unknown) date) The tricuspid valve unknown) is normal in structure and function. (unknown) (no (unknown) (unknown) (units (unknown) date) unknown) ___ (unknown) (no (unknown) (unknown) abnormalities. (units (unknown) date) unknown) (unknown) (no (unknown) (unknown) and Doppler was (units (unknown) date) performed. The unknown) study quality was technically adequate. There (unknown) (no (unknown) (unknown) effusion. (units (unkn own) date) unknown) (unknown) (no (unknown) (unknown) ejection fraction (units (unknown) date) is estimated to be unknown) 55-60%. There are no focal wall motion (unknown) (no (unknown) (unknown) estimated because (units (unknown) date) of the lack of a unknown) measurable TR jet velocity. (unknown) (no (unknown) (unknown) in size. The IVC (units (unknown) date) is of normal unknown) diameter and collapses greater than 50% with a (unknown) (no (unknown) (unknown) interatrial shunt. (units (unknown) date) unknown) (unknown) (no (unknown) (unknown) is no prior (units (un known) date) echocardiogram unknown) noted for this patient. The patient was in normal (unknown) (no (unknown) (unknown) motion is normal. (units (unknown) date) There is no unknown) pulmonic valvular regurgitation. (unknown) (no (unknown) (unknown) sinus rhythm (units (u nknown) date) during the exam. unknown) (unknown) (no (unknown) (unknown) sniff. This (units (un known) date) suggests a low unknown) right atrial pressure of 3 mm Hg. (unknown) (no (unknown) (unknown) trace mitral (units (u nknown) date) regurgitation. unknown) Result panel 252 (unknown) (no (unknown) (unknown) (no value) (units (unk nown) date) unknown) (unknown) (no (unknown) (unknown) (past 8 hours): (units (unknown) date) unknown) (unknown) (no (unknown) (unknown) [id number] (units (unkno wn) date) unknown) (unknown) (no (unknown) (unknown) 01/14/23 01/14/23 (units (unknown) date) 01/14/23 unknown) (unknown) (no (unknown) (unknown) 01/14/23 01/15/23 (units (unknown) date) 01/15/23 unknown) (unknown) (no (unknown) (unknown) 01/15/23 01/15/23 (units (unknown) date) 01/15/23 unknown) (unknown) (no (unknown) (unknown) 01/15/23 08:55 (units (unknown) date) unknown) (unknown) (no (unknown) (unknown) 01/15/23 1811 (units ( unknown) date) unknown) (unknown) (no (unknown) (unknown) 01/15/23 (units (unkno wn) date) unknown) (unknown) (no (unknown) (unknown) 08:00 01/15/23 (units (unknown) date) unknown) (unknown) (no (unknown) (unknown) 08:55 09:00 09:00 (units (unknown) date) unknown) (unknown) (no (unknown) (unknown) 1. Alcohol (units (unk nown) date) dependence with unknown) withdrawal (unknown) (no (unknown) (unknown) 10. Hyponatremia (units (unknown) date) unknown) (unknown) (no (unknown) (unknown) 11. Hypomagnesemia (units (unknown) date) unknown) (unknown) (no (unknown) (unknown) 11:58 (units (unkno wn) date) unknown) (unknown) (no (unknown) (unknown) 12. Transaminitis (units (unknown) date) unknown) (unknown) (no (unknown) (unknown) 15:25 18:15 23:10 (units (unknown) date) unknown) (unknown) (no (unknown) (unknown) 2. Suicidal (units (un known) date) ideation unknown) (unknown) (no (unknown) (unknown) 23:10 08:55 08:55 (units (unknown) date) unknown) (unknown) (no (unknown) (unknown) 23:10 23:10 23:10 (units (unknown) date) unknown) (unknown) (no (unknown) (unknown) 3. Multiple falls (units (unknown) date) secondary to gait unknown) instability (unknown) (no (unknown) (unknown) 4. Paroxysmal (units ( unknown) date) atrial fibrillation unknown) (unknown) (no (unknown) (unknown) 5. Diabetes (units (un known) date) mellitus, type unknown) unclear (unknown) (no (unknown) (unknown) 53-year-old male (units (unknown) date) with known history unknown) of alcohol abuse, HTN, HLD, BPH, insulin (unknown) (no (unknown) (unknown) 6. Hypertension (units (unknown) date) unknown) (unknown) (no (unknown) (unknown) 7. Chronic pain (units (unknown) date) syndrome unknown) (unknown) (no (unknown) (unknown) 8. BPH (units (unkno wn) date) unknown) (unknown) (no (unknown) (unknown) 9. Anemia (units (unkn own) date) unknown) (unknown) (no (unknown) (unknown) ABD: Soft, NT/ND, (units (unknown) date) BT present in all 4 unknown) quadrants, no organomegaly or masses (unknown) (no (unknown) (unknown) ALT 93 H 78 H (units ( unknown) date) unknown) (unknown) (no (unknown) (unknown) ALT (units (unkno wn) date) unknown) (unknown) (no (unknown) (unknown) AST 96 H 75 H (units ( unknown) date) unknown) (unknown) (no (unknown) (unknown) AST (units (unkno wn) date) unknown) (unknown) (no (unknown) (unknown) Age/Sex: 53 / M (units (unknown) date) unknown) (unknown) (no (unknown) (unknown) Albumin 4.0 3.9 (units (unknown) date) unknown) (unknown) (no (unknown) (unknown) Albumin (units (unkno wn) date) unknown) (unknown) (no (unknown) (unknown) Albumin/Globulin (units (unknown) date) Ratio 1.3 1.3 unknown) (unknown) (no (unknown) (unknown) Albumin/Globulin (units (unknown) date) Ratio unknown) (unknown) (no (unknown) (unknown) Alcohol (units (unkno wn) date) intoxication unknown) (unknown) (no (unknown) (unknown) Alkaline (units (unkno wn) date) Phosphatase 139 H unknown) 135 H (unknown) (no (unknown) (unknown) Alkaline (units (unkno wn) date) Phosphatase unknown) (unknown) (no (unknown) (unknown) Ammonia < 9 L (units ( unknown) date) unknown) (unknown) (no (unknown) (unknown) Ammonia (units (unkno wn) date) unknown) (unknown) (no (unknown) (unknown) Assessment + Plan (units (unknown) date) narrative: unknown) (unknown) (no (unknown) (unknown) Assessment + Plan (units (unknown) date) unknown) (unknown) (no (unknown) (unknown) BPH (benign (units (un known) date) prostatic unknown) hyperplasia) (unknown) (no (unknown) (unknown) BUN 13 16 (units (unkn own) date) unknown) (unknown) (no (unknown) (unknown) BUN (units (unkno wn) date) unknown) (unknown) (no (unknown) (unknown) BUN/Creatinine (units (unknown) date) Ratio 25.0 H 34.8 H unknown) (unknown) (no (unknown) (unknown) BUN/Creatinine (units (unknown) date) Ratio unknown) (unknown) (no (unknown) (unknown) Baso # (Auto) 0 (units (unknown) date) unknown) (unknown) (no (unknown) (unknown) Baso # (Auto) (units ( unknown) date) unknown) (unknown) (no (unknown) (unknown) Baso % (Auto) 0.3 (units (unknown) date) unknown) (unknown) (no (unknown) (unknown) Baso % (Auto) (units ( unknown) date) unknown) (unknown) (no (unknown) (unknown) Blood Pressure (units (unknown) date) 155/92 H 119/77 unknown) (unknown) (no (unknown) (unknown) Brother notes that (units (unknown) date) a welfare check was unknown) done yesterday and he was found to be at (unknown) (no (unknown) (unknown) Brother reports 6 (units (unknown) date) prior suicide unknown) attempts. He says that Octavio has prior dx of (unknown) (no (unknown) (unknown) CHEST: Respiratory (units (unknown) date) excursions unknown) symmetric, CTAB (unknown) (no (unknown) (unknown) CV: RRR, no M/R/G (units (unknown) date) unknown) (unknown) (no (unknown) (unknown) Calcium 8.7 8.8 (units (unknown) date) unknown) (unknown) (no (unknown) (unknown) Calcium (units (unkno wn) date) unknown) (unknown) (no (unknown) (unknown) Carbon Dioxide 29 (units (unknown) date) 34 H unknown) (unknown) (no (unknown) (unknown) Carbon Dioxide (units (unknown) date) unknown) (unknown) (no (unknown) (unknown) Chloride 93 L 92 L (units (unknown) date) unknown) (unknown) (no (unknown) (unknown) Chloride (units (unkno wn) date) unknown) (unknown) (no (unknown) (unknown) Chronic low back (units (unknown) date) pain unknown) (unknown) (no (unknown) (unknown) Code status (units (un known) date) unknown) (unknown) (no (unknown) (unknown) Congestive heart (units (unknown) date) failure unknown) (unknown) (no (unknown) (unknown) Continue Flomax (units (unknown) date) unknown) (unknown) (no (unknown) (unknown) Creatinine 0.52 L (units (unknown) date) 0.46 L unknown) (unknown) (no (unknown) (unknown) Creatinine (units (unk nown) date) unknown) (unknown) (no (unknown) (unknown) : 1970 (units (unknown) date) Acct:[id number] unknown) (unknown) (no (unknown) (unknown) Date of Service: (units (unknown) date) 01/14/23 unknown) (unknown) (no (unknown) (unknown) Deep Vein (units (unkn own) date) Thrombosis/Pulmonary unknown) Embolism Present on Admission: No (unknown) (no (unknown) (unknown) Disposition (units (un known) date) unknown) (unknown) (no (unknown) (unknown) EXTR: warm, well (units (unknown) date) perfused, no C/C/E, unknown) scattered bruising noted to his arms, (unknown) (no (unknown) (unknown) Eos # (Auto) 0 (units (unknown) date) unknown) (unknown) (no (unknown) (unknown) Eos # (Auto) (units (u nknown) date) unknown) (unknown) (no (unknown) (unknown) Eos % (Auto) 0.0 L (units (unknown) date) unknown) (unknown) (no (unknown) (unknown) Eos % (Auto) 0.1 L (units (unknown) date) unknown) (unknown) (no (unknown) (unknown) Eos % (Auto) (units (u nknown) date) unknown) (unknown) (no (unknown) (unknown) Essential (units (unkn own) date) hypertension unknown) (unknown) (no (unknown) (unknown) Estimated GFR > 60 (units (unknown) date) > 60 unknown) (unknown) (no (unknown) (unknown) Estimated GFR (units ( unknown) date) unknown) (unknown) (no (unknown) (unknown) Ethyl Alcohol < 10 (units (unknown) date) unknown) (unknown) (no (unknown) (unknown) Ethyl Alcohol 91 H (units (unknown) date) unknown) (unknown) (no (unknown) (unknown) Ethyl Alcohol (units ( unknown) date) unknown) (unknown) (no (unknown) (unknown) Exam Narrative: (units (unknown) date) unknown) (unknown) (no (unknown) (unknown) Exam (units (unkno wn) date) unknown) (unknown) (no (unknown) (unknown) Family History (units (unknown) date) (Updated 01/15/23 @ unknown) 02:24 by Genesis Dunn [facility]) (unknown) (no (unknown) (unknown) Father Diabetes (units (unknown) date) mellitus unknown) (unknown) (no (unknown) (unknown) Full (units (unkno wn) date) unknown) (unknown) (no (unknown) (unknown) GEN: Alert and (units (unknown) date) oriented x 3, unknown) anxious and tearful, flat affect (unknown) (no (unknown) (unknown) GGT 399 H (units (unkn own) date) unknown) (unknown) (no (unknown) (unknown) GGT (units (unkno wn) date) unknown) (unknown) (no (unknown) (unknown) Globulin 3.1 2.9 (units (unknown) date) unknown) (unknown) (no (unknown) (unknown) Globulin (units (unkno wn) date) unknown) (unknown) (no (unknown) (unknown) Glucose 357 H D 262 (unit s (unknown) date) H unknown) (unknown) (no (unknown) (unknown) Glucose (units (unkno wn) date) unknown) (unknown) (no (unknown) (unknown) HEENT:NC, Face (units (unknown) date) symmetric unknown) (unknown) (no (unknown) (unknown) Hct 35.7 L (units (unk nown) date) unknown) (unknown) (no (unknown) (unknown) Hct 37.4 L (units (unk nown) date) unknown) (unknown) (no (unknown) (unknown) Hct (units (unkno wn) date) unknown) (unknown) (no (unknown) (unknown) Hgb 12.3 L (units (unk nown) date) unknown) (unknown) (no (unknown) (unknown) Hgb 12.4 L (units (unk nown) date) unknown) (unknown) (no (unknown) (unknown) Hgb (units (unkno wn) date) unknown) (unknown) (no (unknown) (unknown) History of shoulder (unit s (unknown) date) surgery unknown) (unknown) (no (unknown) (unknown) However, (units (unkno wn) date) echocardiogram will unknown) be ordered to assess for evidence of (unknown) (no (unknown) (unknown) Hyperlipidemia due (units (unknown) date) to type 1 diabetes unknown) mellitus (unknown) (no (unknown) (unknown) INR 1.1 (units (unkno wn) date) unknown) (unknown) (no (unknown) (unknown) INR (units (unkno wn) date) unknown) (unknown) (no (unknown) (unknown) Interval history: (units (unknown) date) unknown) (unknown) (no (unknown) (unknown) [facility] (units (unknown) date) [address] unknown) [place] [address] (unknown) (no (unknown) (unknown) Laboratory Results (units (unknown) date) - last 24 hr unknown) (unknown) (no (unknown) (unknown) Labs (units (unkno wn) date) unknown) (unknown) (no (unknown) (unknown) Labs: (units (unkno wn) date) unknown) (unknown) (no (unknown) (unknown) 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 LFTs are presently improving. (unknown) (no (unknown) (unknown) Lovenox ordered (units (unknown) date) unknown) (unknown) (no (unknown) (unknown) Lymph # (Auto) 1200 (unit s (unknown) date) unknown) (unknown) (no (unknown) (unknown) Lymph # (Auto) 600 (units (unknown) date) L unknown) (unknown) (no (unknown) (unknown) Lymph # (Auto) (units (unknown) date) unknown) (unknown) (no (unknown) (unknown) Lymph % (Auto) 13.7 (unit s (unknown) date) L D unknown) (unknown) (no (unknown) (unknown) Lymph % (Auto) 17.7 (unit s (unknown) date) L unknown) (unknown) (no (unknown) (unknown) Lymph % (Auto) (units (unknown) date) unknown) (unknown) (no (unknown) (unknown) MCH 32.4 (units (unkno wn) date) unknown) (unknown) (no (unknown) (unknown) MCH 33.0 (units (unkno wn) date) unknown) (unknown) (no (unknown) (unknown) MCH (units (unkno wn) date) unknown) (unknown) (no (unknown) (unknown) MCHC 33.3 (units (unkn own) date) unknown) (unknown) (no (unknown) (unknown) MCHC 34.4 (units (unkn own) date) unknown) (unknown) (no (unknown) (unknown) MCHC (units (unkno wn) date) unknown) (unknown) (no (unknown) (unknown) MCV 95.9 (units (unkno wn) date) unknown) (unknown) (no (unknown) (unknown) MCV 97.5 (units (unkno wn) date) unknown) (unknown) (no (unknown) (unknown) MCV (units (unkno wn) date) unknown) (unknown) (no (unknown) (unknown) Magnesium 1.5 L (units (unknown) date) unknown) (unknown) (no (unknown) (unknown) Magnesium 1.6 (units ( unknown) date) unknown) (unknown) (no (unknown) (unknown) Magnesium (units (unkn own) date) unknown) (unknown) (no (unknown) (unknown) Medical History (units (unknown) date) (Reviewed 01/15/23 @ unknown) 02:22 by Genesis Dunn [facility]) (unknown) (no (unknown) (unknown) Pender # (Auto) 1000 (units (unknown) date) H unknown) (unknown) (no (unknown) (unknown) Pender # (Auto) 200 (units (unknown) date) unknown) (unknown) (no (unknown) (unknown) Pender # (Auto) (units ( unknown) date) unknown) (unknown) (no (unknown) (unknown) Pender % (Auto) 14.4 (units (unknown) date) H unknown) (unknown) (no (unknown) (unknown) Pender % (Auto) 4.1 (units (unknown) date) unknown) (unknown) (no (unknown) (unknown) Pender % (Auto) (units ( unknown) date) unknown) (unknown) (no (unknown) (unknown) Mother (units (unknown) date) Diabetes mellitus unknown) (unknown) (no (unknown) (unknown) Multiple falls (units (unknown) date) unknown) (unknown) (no (unknown) (unknown) NEURO: Alert and (units (unknown) date) oriented x 3, unknown) nonfocal (unknown) (no (unknown) (unknown) NT-Pro-B Natriuret (units (unknown) date) Pep 177 H unknown) (unknown) (no (unknown) (unknown) NT-Pro-B Natriuret (units (unknown) date) Pep unknown) (unknown) (no (unknown) (unknown) Narrative (units (unkn own) date) unknown) (unknown) (no (unknown) (unknown) Neut # (Auto) 3700 (units (unknown) date) unknown) (unknown) (no (unknown) (unknown) Neut # (Auto) 4600 (units (unknown) date) unknown) (unknown) (no (unknown) (unknown) Neut # (Auto) (units ( unknown) date) unknown) (unknown) (no (unknown) (unknown) Neut % (Auto) 67.6 (units (unknown) date) unknown) (unknown) (no (unknown) (unknown) Neut % (Auto) 81.8 (units (unknown) date) H D unknown) (unknown) (no (unknown) (unknown) Neut % (Auto) (units ( unknown) date) unknown) (unknown) (no (unknown) (unknown) Normocytic. Likely (units (unknown) date) secondary to unknown) alcohol-induced marrow suppression. (unknown) (no (unknown) (unknown) Objective (units (unkn own) date) unknown) (unknown) (no (unknown) (unknown) Oxygen Delivery (units (unknown) date) Method Room Air unknown) (unknown) (no (unknown) (unknown) Oxygen Flow Rate 0 (units (unknown) date) 0 unknown) (unknown) (no (unknown) (unknown) Oxygen Flow Rate 0 (units (unknown) date) unknown) (unknown) (no (unknown) (unknown) PFSH (units (unkno wn) date) unknown) (unknown) (no (unknown) (unknown) PT 12.4 (units (unkno wn) date) unknown) (unknown) (no (unknown) (unknown) PT (units (unkno wn) date) unknown) (unknown) (no (unknown) (unknown) Patient continues (units (unknown) date) on Lantus and unknown) sliding scale. Chart Notes refer to him being a (unknown) (no (unknown) (unknown) Patient had been (units (unknown) date) admitted to [facility] unknown) [facility] last week secondary to his alcohol (unknown) (no (unknown) (unknown) Patient has a (units ( unknown) date) healing laceration unknown) to his right forehead, bruises to his arms, as (unknown) (no (unknown) (unknown) Patient has a spinal (unit s (unknown) date) stimulator in place unknown) as well as an intrathecal hydromorphone (unknown) (no (unknown) (unknown) Patient has been (units (unknown) date) drinking a 5th of unknown) alcohol daily. He initially tells me he is (unknown) (no (unknown) (unknown) Patient has had (units (unknown) date) multiple prior unknown) attempts from what his brother told me. No plan (unknown) (no (unknown) (unknown) Patient is on (units ( unknown) date) lisinopril and unknown) propranolol. He did develop some hypotension (unknown) (no (unknown) (unknown) Patient was noted (units (unknown) date) to have an episode unknown) of AFib in the emergency department for (unknown) (no (unknown) (unknown) Patient: (units (unkno wn) date) Octavio Romo MR#: unknown) M00 (unknown) (no (unknown) (unknown) Pending (units (unkno wn) date) unknown) (unknown) (no (unknown) (unknown) Plt Count 320 (units ( unknown) date) unknown) (unknown) (no (unknown) (unknown) Plt Count 324 (units ( unknown) date) unknown) (unknown) (no (unknown) (unknown) Plt Count (units (unkn own) date) unknown) (unknown) (no (unknown) (unknown) Potassium 4.3 4.5 (units (unknown) date) unknown) (unknown) (no (unknown) (unknown) Potassium (units (unkn own) date) unknown) (unknown) (no (unknown) (unknown) Progress Note (units ( unknown) date) unknown) (unknown) (no (unknown) (unknown) Prophylaxis (units (un known) date) unknown) (unknown) (no (unknown) (unknown) Provider: (units (unkn own) date) Chayo Callahan MD unknown) (unknown) (no (unknown) (unknown) Pt reports he has (units (unknown) date) been falling unknown) frequently. States he drinks a 5th per day. (unknown) (no (unknown) (unknown) Pulse Oximetry 98 (units (unknown) date) 95 unknown) (unknown) (no (unknown) (unknown) Pulse Rate 63 60 (units (unknown) date) unknown) (unknown) (no (unknown) (unknown) Quality (units (unkno wn) date) unknown) (unknown) (no (unknown) (unknown) RBC 3.72 L (units (unk nown) date) unknown) (unknown) (no (unknown) (unknown) RBC 3.84 L (units (unk nown) date) unknown) (unknown) (no (unknown) (unknown) RBC (units (unkno wn) date) unknown) (unknown) (no (unknown) (unknown) RDW 13.0 (units (unkno wn) date) unknown) (unknown) (no (unknown) (unknown) RDW 13.2 (units (unkno wn) date) unknown) (unknown) (no (unknown) (unknown) RDW (units (unkno wn) date) unknown) (unknown) (no (unknown) (unknown) Respiratory Rate 18 (unit s (unknown) date) 18 unknown) (unknown) (no (unknown) (unknown) SARS-CoV-2 (PCR) (units (unknown) date) Negative unknown) (unknown) (no (unknown) (unknown) SARS-CoV-2 (PCR) (units (unknown) date) unknown) (unknown) (no (unknown) (unknown) SKIN: warm and dry, (units (unknown) date) no rash, large dark unknown) bruise noted round his gluteal folds and (unknown) (no (unknown) (unknown) Says he tends to (units (unknown) date) binge drink. He unknown) reports he has had the intrathecal pump in (unknown) (no (unknown) (unknown) Signed (units (unkno wn) date) By:<Electronically unknown) signed by Chayo Callahan MD> (unknown) (no (unknown) (unknown) Smoking Status: (units (unknown) date) Never smoker unknown) (unknown) (no (unknown) (unknown) Social History (units (unknown) date) (Updated 01/15/23 @ unknown) 02:23 by DOUG Chairez) (unknown) (no (unknown) (unknown) Sodium 133 L 131 L (units (unknown) date) unknown) (unknown) (no (unknown) (unknown) Sodium is 131 (units ( unknown) date) today. Will monitor. unknown) (unknown) (no (unknown) (unknown) Sodium (units (unkno wn) date) unknown) (unknown) (no (unknown) (unknown) Subjective (units (unk nown) date) unknown) (unknown) (no (unknown) (unknown) Surgical History (units (unknown) date) (Reviewed 01/15/23 @ unknown) 02:22 by DOUG Chairez) (unknown) (no (unknown) (unknown) Temperature 98.1 F (units (unknown) date) 98.8 F unknown) (unknown) (no (unknown) (unknown) Today the patient (units (unknown) date) states that he is unknown) feeling miserable. He has headache and (unknown) (no (unknown) (unknown) Total Bilirubin 0.6 (unit s (unknown) date) 0.7 unknown) (unknown) (no (unknown) (unknown) Total Bilirubin (units (unknown) date) unknown) (unknown) (no (unknown) (unknown) Total Protein 7.1 (units (unknown) date) 6.8 unknown) (unknown) (no (unknown) (unknown) Total Protein (units ( unknown) date) unknown) (unknown) (no (unknown) (unknown) Transitioned today (units (unknown) date) to scheduled Librium unknown) with as needed CIWA protocol. This (unknown) (no (unknown) (unknown) VTE (units (unkno wn) date) unknown) (unknown) (no (unknown) (unknown) Vital Signs (units (un known) date) unknown) (unknown) (no (unknown) (unknown) WBC 4.6 (units (unkno wn) date) unknown) (unknown) (no (unknown) (unknown) WBC 6.8 (units (unkno wn) date) unknown) (unknown) (no (unknown) (unknown) WBC (units (unkno wn) date) unknown) (unknown) (no (unknown) (unknown) Will monitor. (units ( unknown) date) unknown) (unknown) (no (unknown) (unknown) Will replete (units (u nknown) date) orally. unknown) (unknown) (no (unknown) (unknown) [Embedded Image Not (unit s (unknown) date) Available] unknown) (unknown) (no (unknown) (unknown) afternoon, he (units ( unknown) date) became increasingly unknown) drowsy and had some mild hypotension. Librium (unknown) (no (unknown) (unknown) alcohol dependence. (unit s (unknown) date) A bit unclear on unknown) when he was diagnosed and there is not any (unknown) (no (unknown) (unknown) alcohol intake: (units (unknown) date) current unknown) (unknown) (no (unknown) (unknown) alone. PT and OT (units (unknown) date) will evaluate. unknown) (unknown) (no (unknown) (unknown) and degenerating (units (unknown) date) bones as a result. unknown) (unknown) (no (unknown) (unknown) and tell everybody (units (unknown) date) he is fine when he unknown) is not. (unknown) (no (unknown) (unknown) and was unable to (units (unknown) date) get up. He attempted unknown) to pull himself up on the stove but (unknown) (no (unknown) (unknown) at this time but he (unit s (unknown) date) notes he does not unknown) feel safe at home. Would likely benefit (unknown) (no (unknown) (unknown) back lumbar + (units ( unknown) date) intrathecal unknown) hydromorphone pump. (unknown) (no (unknown) (unknown) before EMS was (units (unknown) date) called yesterday. He unknown) also complains of feeling emotionally quite (unknown) (no (unknown) (unknown) but was (units (unkno wn) date) unsuccessful. unknown) Patient was initially placed on phenobarbital. (unknown) (no (unknown) (unknown) candidate for (units ( unknown) date) anticoagulation due unknown) to his alcohol dependence and frequent falls. (unknown) (no (unknown) (unknown) cardiomyopathy, (units (unknown) date) valvular disease LV unknown) dysfunction. (unknown) (no (unknown) (unknown) continue (units (unkno wn) date) fingersticks, unknown) sliding scale, and Lantus. (unknown) (no (unknown) (unknown) couple of weeks for (unit s (unknown) date) refill. unknown) (unknown) (no (unknown) (unknown) dependence but (units (unknown) date) reported he was unknown) feeling better and was ultimately discharged. (unknown) (no (unknown) (unknown) dependent diabetes (units (unknown) date) and chronic low back unknown) pain tx with InterStim stimulator in (unknown) (no (unknown) (unknown) from a program that (unit s (unknown) date) does dual diagnosis. unknown) GEOLOGY INSTRUCTOR met with the patient today and (unknown) (no (unknown) (unknown) get back up. (units (u nknown) date) Brother notes unknown) patient has a history of longstanding polysubstance (unknown) (no (unknown) (unknown) he went home he (units (unknown) date) would drink heavily. unknown) (unknown) (no (unknown) (unknown) his back. His (units ( unknown) date) brother states he unknown) had lead poisoning years ago and developed weak (unknown) (no (unknown) (unknown) home w/a filthy (units (unknown) date) house, vomit and unknown) blood everywhere. Pt had fallen in his kitchen (unknown) (no (unknown) (unknown) household members: (units (unknown) date) none unknown) (unknown) (no (unknown) (unknown) information with (units (unknown) date) regard to his unknown) diabetes in the medical record. We will (unknown) (no (unknown) (unknown) inpatient transfer (units (unknown) date) but I am uncertain unknown) if this is feasible. (unknown) (no (unknown) (unknown) insulin-dependent (units (unknown) date) diabetes secondary unknown) to pancreatic insufficiency related to his (unknown) (no (unknown) (unknown) is being (units (unkno wn) date) discontinued. unknown) (unknown) (no (unknown) (unknown) long history of (units (unknown) date) heavy alcohol use. unknown) He has been to inpatient rehab in the past (unknown) (no (unknown) (unknown) only been drinking (units (unknown) date) for the last 5 days. unknown) However, his brother tells me he has a (unknown) (no (unknown) (unknown) place x 20 years. 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 He states he (units (unknown) date) is feeling suicidal. unknown) He feels if he were to go home he (unknown) (no (unknown) (unknown) pump. He reports (units (unknown) date) the pump was filled unknown) every 2 months and he is not due for a (unknown) (no (unknown) (unknown) right forearm. (units (unknown) date) These all have unknown) occurred when he has been intoxicated and home (unknown) (no (unknown) (unknown) room and got stuck (units (unknown) date) between his coffee unknown) table in his couch. Reported on admission (unknown) (no (unknown) (unknown) sacrum (units (unkno wn) date) unknown) (unknown) (no (unknown) (unknown) schizophrenia/bipol (unit s (unknown) date) ar d/o. He also unknown) notes he has a history of osteoporosis. (unknown) (no (unknown) (unknown) sobriety. Brother (units (unknown) date) also notes that the unknown) patient tends to minimize his symptoms (unknown) (no (unknown) (unknown) superficial lee (units (unknown) date) noted to his right unknown) forearm (unknown) (no (unknown) (unknown) sustained a burn to (unit s (unknown) date) his right forearm. unknown) He would also had a fall in his living (unknown) (no (unknown) (unknown) that he was in the (units (unknown) date) bathroom and there unknown) was a shattered mirror and blood around (unknown) (no (unknown) (unknown) the bathroom as (units (unknown) date) well. Patient states unknown) he was down for about 5 hours unable to (unknown) (no (unknown) (unknown) today. Will hold (units (unknown) date) his unknown) antihypertensives for the next 24 hours (unknown) (no (unknown) (unknown) treatment. He would (unit s (unknown) date) no evidence of DKA unknown) on admission. Certainly he could have (unknown) (no (unknown) (unknown) tremors. He states (units (unknown) date) his withdrawal unknown) symptoms are worse. His last drink was right (unknown) (no (unknown) (unknown) type 1 diabetic. (units (unknown) date) However it is not unknown) clear whether he is compliant with his (unknown) (no (unknown) (unknown) use. He has been in (unit s (unknown) date) rehab in the past unknown) but has not been able to sustain his (unknown) (no (unknown) (unknown) well as his gluteal (unit s (unknown) date) area/sacrum. He also unknown) has some superficial lee to his (unknown) (no (unknown) (unknown) which he was given (units (unknown) date) a dose of unknown) metoprolol. CHADS2 Vasc score is 2, consistent (unknown) (no (unknown) (unknown) will work on (units (u nknown) date) possible resources. unknown) He would benefit most from inpatient to (unknown) (no (unknown) (unknown) with a 2.2% stroke (units (unknown) date) risk annually. unknown) Unfortunately, he would be a very poor (unknown) (no (unknown) (unknown) would not be safe. (units (unknown) date) He states he feels unknown) compelled to drink as well. He feels if Result panel 253 (unknown) (no date) (unknown) (unknown) 1.0 % (unkn own) (unknown) (no date) (unknown) (unknown) 1.4 % (unkn own) (unknown) (no date) (unknown) (unknown) 100 /ul (unkn own) (unknown) (no date) (unknown) (unknown) 100 /ul (unkn own) (unknown) (no date) (unknown) (unknown) 11.7 g/dl (unkn own) (unknown) (no date) (unknown) (unknown) 13.4 % (unkn own) (unknown) (no date) (unknown) (unknown) 2300 /ul (unkn own) (unknown) (no date) (unknown) (unknown) 2400 /ul (unkn own) (unknown) (no date) (unknown) (unknown) 3.56 x10 6/ul (unkn own) (unknown) (no date) (unknown) (unknown) 302 x10 3/ul (unkn own) (unknown) (no date) (unknown) (unknown) 32.7 pg (unkn own) (unknown) (no date) (unknown) (unknown) 34.0 % (unkn own) (unknown) (no date) (unknown) (unknown) 34.3 % (unkn own) (unknown) (no date) (unknown) (unknown) 43.1 % (unkn own) (unknown) (no date) (unknown) (unknown) 43.1 % (unkn own) (unknown) (no date) (unknown) (unknown) 45.5 % (unkn own) (unknown) (no date) (unknown) (unknown) 45.5 % (unkn own) (unknown) (no date) (unknown) (unknown) 5.2 x10 3/ul (unkn own) (unknown) (no date) (unknown) (unknown) 500 /ul (unkn own) (unknown) (no date) (unknown) (unknown) 9.0 % (unkn own) (unknown) (no date) (unknown) (unknown) 96.1 fl (unkn own) Result panel 254 (unknown) (no date) (unknown) (unknown) > 60 ml/min (unkn own) (unknown) (no date) (unknown) (unknown) > 60 ml/min (unkn own) (unknown) (no date) (unknown) (unknown) 0.52 mg/dl (unkn own) (unknown) (no date) (unknown) (unknown) 0.6 mg/dl (unkn own) (unknown) (no date) (unknown) (unknown) 1.2 (units unknown) (unknown) (unknown) (no date) (unknown) (unknown) 130 mg/dl (unkn own) (unknown) (no date) (unknown) (unknown) 130 mg/dl (unkn own) (unknown) (no date) (unknown) (unknown) 133 mmol/l (unkn own) (unknown) (no date) (unknown) (unknown) 17 mg/dl (unkn own) (unknown) (no date) (unknown) (unknown) 2.8 g/dl (unkn own) (unknown) (no date) (unknown) (unknown) 3.3 g/dl (unkn own) (unknown) (no date) (unknown) (unknown) 30 mmol/l (unkn own) (unknown) (no date) (unknown) (unknown) 32.7 (units unknown) (unknown) (unknown) (no date) (unknown) (unknown) 4.1 mmol/l (unkn own) (unknown) (no date) (unknown) (unknown) 6.1 g/dl (unkn own) (unknown) (no date) (unknown) (unknown) 60 iu/l (unkn own) (unknown) (no date) (unknown) (unknown) 64 iu/l (unkn own) (unknown) (no date) (unknown) (unknown) 8.7 mg/dl (unkn own) (unknown) (no date) (unknown) (unknown) 97 mmol/l (unkn own) (unknown) (no date) (unknown) (unknown) 99 u/l (unkn own) Result panel 255 (unknown) (no date) (unknown) (unknown) (no value) (units (un known) unknown) (unknown) (no date) (unknown) (unknown) Very Early (units (un known) Growth: Culture unknown) too young for work-up reincubated Result panel 256 (unknown) (no (unknown) (unknown) (no value) (units (unk nown) date) unknown) (unknown) (no (unknown) (unknown) (past 8 hours): (units (unknown) date) unknown) (unknown) (no (unknown) (unknown) [id number] (units (unkno wn) date) unknown) (unknown) (no (unknown) (unknown) 01/16/23 01/16/23 (units (unknown) date) unknown) (unknown) (no (unknown) (unknown) 01/16/23 05:54 (units (unknown) date) unknown) (unknown) (no (unknown) (unknown) 01/16/23 (units (unkno wn) date) unknown) (unknown) (no (unknown) (unknown) 05:54 05:54 (units (un known) date) unknown) (unknown) (no (unknown) (unknown) 08:00 01/16/23 (units (unknown) date) unknown) (unknown) (no (unknown) (unknown) 1. Alcohol (units (unk nown) date) dependence with unknown) withdrawal (unknown) (no (unknown) (unknown) 10 mg TID given (units (unknown) date) symptoms today. unknown) (unknown) (no (unknown) (unknown) 10. Hyponatremia (units (unknown) date) unknown) (unknown) (no (unknown) (unknown) 11. Hypomagnesemia (units (unknown) date) unknown) (unknown) (no (unknown) (unknown) 12. Transaminitis (units (unknown) date) unknown) (unknown) (no (unknown) (unknown) 12:00 (units (unkno wn) date) unknown) (unknown) (no (unknown) (unknown) 2. Suicidal (units (un known) date) ideation unknown) (unknown) (no (unknown) (unknown) 3. Multiple falls (units (unknown) date) secondary to gait unknown) instability (unknown) (no (unknown) (unknown) 4. Paroxysmal (units ( unknown) date) atrial fibrillation unknown) (unknown) (no (unknown) (unknown) 5. Diabetes (units (un known) date) mellitus, type unknown) unclear (unknown) (no (unknown) (unknown) 6. Hypertension (units (unknown) date) unknown) (unknown) (no (unknown) (unknown) 7. Chronic pain (units (unknown) date) syndrome unknown) (unknown) (no (unknown) (unknown) 8. BPH (units (unkno wn) date) unknown) (unknown) (no (unknown) (unknown) 9. Anemia (units (unkn own) date) unknown) (unknown) (no (unknown) (unknown) ABD: Soft, NT/ND, (units (unknown) date) BT present in all 4 unknown) quadrants, no organomegaly or masses (unknown) (no (unknown) (unknown) ALT 64 H (units (unkno wn) date) unknown) (unknown) (no (unknown) (unknown) AST 60 H (units (unkno wn) date) unknown) (unknown) (no (unknown) (unknown) Age/Sex: 53 / M (units (unknown) date) unknown) (unknown) (no (unknown) (unknown) Albumin 3.3 L (units ( unknown) date) unknown) (unknown) (no (unknown) (unknown) Albumin/Globulin (units (unknown) date) Ratio 1.2 unknown) (unknown) (no (unknown) (unknown) Alcohol (units (unkno wn) date) intoxication unknown) (unknown) (no (unknown) (unknown) Alkaline (units (unkno wn) date) Phosphatase 99 unknown) (unknown) (no (unknown) (unknown) Assessment + Plan (units (unknown) date) narrative: unknown) (unknown) (no (unknown) (unknown) Assessment + Plan (units (unknown) date) unknown) (unknown) (no (unknown) (unknown) BPH (benign (units (un known) date) prostatic unknown) hyperplasia) (unknown) (no (unknown) (unknown) BUN 17 (units (unkno wn) date) unknown) (unknown) (no (unknown) (unknown) BUN/Creatinine (units (unknown) date) Ratio 32.7 H unknown) (unknown) (no (unknown) (unknown) Baso # (Auto) 100 (units (unknown) date) unknown) (unknown) (no (unknown) (unknown) Baso % (Auto) 1.0 (units (unknown) date) unknown) (unknown) (no (unknown) (unknown) Blood Pressure (units (unknown) date) 147/85 H 114/75 unknown) (unknown) (no (unknown) (unknown) CHEST: Respiratory (units (unknown) date) excursions unknown) symmetric, CTAB (unknown) (no (unknown) (unknown) CV: RRR, no M/R/G (units (unknown) date) unknown) (unknown) (no (unknown) (unknown) Calcium 8.7 (units (un known) date) unknown) (unknown) (no (unknown) (unknown) Carbon Dioxide 30 (units (unknown) date) unknown) (unknown) (no (unknown) (unknown) Chloride 97 L (units ( unknown) date) unknown) (unknown) (no (unknown) (unknown) Chronic low back (units (unknown) date) pain unknown) (unknown) (no (unknown) (unknown) Code status (units (un known) date) unknown) (unknown) (no (unknown) (unknown) Complains of severe (unit s (unknown) date) headache, shakiness unknown) and nausea today. Reports bilateral (unknown) (no (unknown) (unknown) Congestive heart (units (unknown) date) failure unknown) (unknown) (no (unknown) (unknown) Continue Flomax (units (unknown) date) unknown) (unknown) (no (unknown) (unknown) Creatinine 0.52 L (units (unknown) date) unknown) (unknown) (no (unknown) (unknown) : 1970 (units (unknown) date) Acct:[id number] unknown) (unknown) (no (unknown) (unknown) Date of Service: (units (unknown) date) 01/14/23 unknown) (unknown) (no (unknown) (unknown) Deep Vein (units (unkn own) date) Thrombosis/Pulmonary unknown) Embolism Present on Admission: No (unknown) (no (unknown) (unknown) Disposition (units (un known) date) unknown) (unknown) (no (unknown) (unknown) Does have prior (units (unknown) date) history of DT, unknown) symptoms today are consistenth with withdrawal. (unknown) (no (unknown) (unknown) EXTR: warm, well (units (unknown) date) perfused, no C/C/E, unknown) scattered bruising noted to his arms, (unknown) (no (unknown) (unknown) Eos # (Auto) 100 (units (unknown) date) unknown) (unknown) (no (unknown) (unknown) Eos % (Auto) 1.4 L (units (unknown) date) unknown) (unknown) (no (unknown) (unknown) Essential (units (unkn own) date) hypertension unknown) (unknown) (no (unknown) (unknown) Estimated GFR > 60 (units (unknown) date) unknown) (unknown) (no (unknown) (unknown) Exam Narrative: (units (unknown) date) unknown) (unknown) (no (unknown) (unknown) Exam (units (unkno wn) date) unknown) (unknown) (no (unknown) (unknown) Family History (units (unknown) date) (Updated 01/15/23 @ unknown) 02:24 by Genesis Dunn [facility]-) (unknown) (no (unknown) (unknown) Father Diabetes (units (unknown) date) mellitus unknown) (unknown) (no (unknown) (unknown) Full (units (unkno wn) date) unknown) (unknown) (no (unknown) (unknown) GEN: Alert and (units (unknown) date) oriented x 3, unknown) anxious and tearful, flat affect (unknown) (no (unknown) (unknown) Globulin 2.8 (units (u nknown) date) unknown) (unknown) (no (unknown) (unknown) Glucose 130 H D (units (unknown) date) unknown) (unknown) (no (unknown) (unknown) HEENT:NC, Face (units (unknown) date) symmetric unknown) (unknown) (no (unknown) (unknown) Hct 34.3 L (units (unk nown) date) unknown) (unknown) (no (unknown) (unknown) Hgb 11.7 L (units (unk nown) date) unknown) (unknown) (no (unknown) (unknown) History of shoulder (unit s (unknown) date) surgery unknown) (unknown) (no (unknown) (unknown) However, (units (unkno wn) date) echocardiogram will unknown) be ordered to assess for evidence of (unknown) (no (unknown) (unknown) Hyperlipidemia due (units (unknown) date) to type 1 diabetes unknown) mellitus (unknown) (no (unknown) (unknown) Interval history: (units (unknown) date) unknown) (unknown) (no (unknown) (unknown) [facility] (units (unknown) date) [address] unknown) [place] [address] (unknown) (no (unknown) (unknown) Laboratory Results (units (unknown) date) - last 24 hr unknown) (unknown) (no (unknown) (unknown) Labs (units (unkno wn) date) unknown) (unknown) (no (unknown) (unknown) Labs: (units (unkno wn) date) unknown) (unknown) (no (unknown) (unknown) 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 LFTs are presently improving. (unknown) (no (unknown) (unknown) Lovenox ordered (units (unknown) date) unknown) (unknown) (no (unknown) (unknown) Lymph # (Auto) 2300 (unit s (unknown) date) unknown) (unknown) (no (unknown) (unknown) Lymph % (Auto) 43.1 (unit s (unknown) date) H D unknown) (unknown) (no (unknown) (unknown) MCH 32.7 (units (unkno wn) date) unknown) (unknown) (no (unknown) (unknown) MCHC 34.0 (units (unkn own) date) unknown) (unknown) (no (unknown) (unknown) MCV 96.1 (units (unkno wn) date) unknown) (unknown) (no (unknown) (unknown) Medical History (units (unknown) date) (Reviewed 01/15/23 @ unknown) 02:22 by DOUG Chairez) (unknown) (no (unknown) (unknown) Pender # (Auto) 500 (units (unknown) date) unknown) (unknown) (no (unknown) (unknown) Pender % (Auto) 9.0 (units (unknown) date) unknown) (unknown) (no (unknown) (unknown) Mother (units (unknown) date) Diabetes mellitus unknown) (unknown) (no (unknown) (unknown) Multiple falls (units (unknown) date) unknown) (unknown) (no (unknown) (unknown) NEURO: Alert and (units (unknown) date) oriented x 3, unknown) nonfocal (unknown) (no (unknown) (unknown) Narrative (units (unkn own) date) unknown) (unknown) (no (unknown) (unknown) Neut # (Auto) 2400 (units (unknown) date) unknown) (unknown) (no (unknown) (unknown) Neut % (Auto) 45.5 (units (unknown) date) L D unknown) (unknown) (no (unknown) (unknown) Normocytic. Likely (units (unknown) date) secondary to unknown) alcohol-induced marrow suppression. (unknown) (no (unknown) (unknown) Objective (units (unkn own) date) unknown) (unknown) (no (unknown) (unknown) Oxygen Delivery (units (unknown) date) Method Room Air unknown) (unknown) (no (unknown) (unknown) Oxygen Flow Rate 0 (units (unknown) date) 0 unknown) (unknown) (no (unknown) (unknown) Oxygen Flow Rate 0 (units (unknown) date) unknown) (unknown) (no (unknown) (unknown) PFSH (units (unkno wn) date) unknown) (unknown) (no (unknown) (unknown) Patient continues (units (unknown) date) on Lantus and unknown) sliding scale. Chart Notes refer to him being a (unknown) (no (unknown) (unknown) Patient has a (units ( unknown) date) healing laceration unknown) to his right forehead, bruises to his arms, as (unknown) (no (unknown) (unknown) Patient has a spinal (unit s (unknown) date) stimulator in place unknown) as well as an intrathecal hydromorphone (unknown) (no (unknown) (unknown) Patient has had (units (unknown) date) multiple prior unknown) attempts from what his brother told me. No plan (unknown) (no (unknown) (unknown) Patient is on (units ( unknown) date) lisinopril and unknown) propranolol. He did develop some hypotension (unknown) (no (unknown) (unknown) Patient was noted (units (unknown) date) to have an episode unknown) of AFib in the emergency department for (unknown) (no (unknown) (unknown) Patient: (units (unkno wn) date) Octavio Romo MR#: unknown) M00 (unknown) (no (unknown) (unknown) Pending (units (unkno wn) date) unknown) (unknown) (no (unknown) (unknown) Plt Count 302 (units ( unknown) date) unknown) (unknown) (no (unknown) (unknown) Potassium 4.1 (units ( unknown) date) unknown) (unknown) (no (unknown) (unknown) Progress Note (units ( unknown) date) unknown) (unknown) (no (unknown) (unknown) Prophylaxis (units (un known) date) unknown) (unknown) (no (unknown) (unknown) Provider: (units (unkn own) date) Terry Gomez D.O. unknown) (unknown) (no (unknown) (unknown) Pulse Oximetry 97 (units (unknown) date) 96 unknown) (unknown) (no (unknown) (unknown) Pulse Rate 55 L 81 (units (unknown) date) unknown) (unknown) (no (unknown) (unknown) Quality (units (unkno wn) date) unknown) (unknown) (no (unknown) (unknown) RBC 3.56 L (units (unk nown) date) unknown) (unknown) (no (unknown) (unknown) RDW 13.4 (units (unkno wn) date) unknown) (unknown) (no (unknown) (unknown) Respiratory Rate 18 (unit s (unknown) date) 20 unknown) (unknown) (no (unknown) (unknown) SKIN: warm and dry, (units (unknown) date) no rash, large dark unknown) bruise noted round his gluteal folds and (unknown) (no (unknown) (unknown) Signed By: (units (unk nown) date) unknown) (unknown) (no (unknown) (unknown) Smoking Status: (units (unknown) date) Never smoker unknown) (unknown) (no (unknown) (unknown) Social History (units (unknown) date) (Updated 01/15/23 @ unknown) 02:23 by YONIS ChairezP-BC) (unknown) (no (unknown) (unknown) Sodium 133 L (units (u nknown) date) unknown) (unknown) (no (unknown) (unknown) Sodium is 131 (units ( unknown) date) today. Will monitor. unknown) (unknown) (no (unknown) (unknown) Subjective (units (unk nown) date) unknown) (unknown) (no (unknown) (unknown) Surgical History (units (unknown) date) (Reviewed 01/15/23 @ unknown) 02:22 by Genesis Dunn [facility]) (unknown) (no (unknown) (unknown) Temperature 98.7 F (units (unknown) date) 98.6 F unknown) (unknown) (no (unknown) (unknown) Total Bilirubin 0.6 (unit s (unknown) date) unknown) (unknown) (no (unknown) (unknown) Total Protein 6.1 L (unit s (unknown) date) unknown) (unknown) (no (unknown) (unknown) VTE (units (unkno wn) date) unknown) (unknown) (no (unknown) (unknown) Vital Signs (units (un known) date) unknown) (unknown) (no (unknown) (unknown) WBC 5.2 (units (unkno wn) date) unknown) (unknown) (no (unknown) (unknown) Will monitor. (units ( unknown) date) unknown) (unknown) (no (unknown) (unknown) Will replete (units (u nknown) date) orally. unknown) (unknown) (no (unknown) (unknown) [Embedded Image Not (unit s (unknown) date) Available] unknown) (unknown) (no (unknown) (unknown) alcohol dependence. (unit s (unknown) date) A bit unclear on unknown) when he was diagnosed and there is not any (unknown) (no (unknown) (unknown) alcohol intake: (units (unknown) date) current unknown) (unknown) (no (unknown) (unknown) alone. PT and OT (units (unknown) date) ordered. unknown) (unknown) (no (unknown) (unknown) at this time but he (unit s (unknown) date) notes he does not unknown) feel safe at home. Would likely benefit (unknown) (no (unknown) (unknown) attempted librium (units (unknown) date) yesterday but BP unknown) dipped slightly, will trial smaller dose with (unknown) (no (unknown) (unknown) by previous (units (un known) date) provider. unknown) (unknown) (no (unknown) (unknown) candidate for (units ( unknown) date) anticoagulation due unknown) to his alcohol dependence and frequent falls. (unknown) (no (unknown) (unknown) cardiomyopathy, (units (unknown) date) valvular disease LV unknown) dysfunction. (unknown) (no (unknown) (unknown) continue CIWA (units ( unknown) date) protocol with prn unknown) benzos. (unknown) (no (unknown) (unknown) continue (units (unkno wn) date) fingersticks, unknown) sliding scale, and Lantus. (unknown) (no (unknown) (unknown) couple of weeks for (unit s (unknown) date) refill. unknown) (unknown) (no (unknown) (unknown) from a program that (unit s (unknown) date) does dual diagnosis. unknown) GEOLOGY INSTRUCTOR met with the patient today and (unknown) (no (unknown) (unknown) household members: (units (unknown) date) none unknown) (unknown) (no (unknown) (unknown) information with (units (unknown) date) regard to his unknown) diabetes in the medical record. We will (unknown) (no (unknown) (unknown) inpatient transfer (units (unknown) date) but remain uncertain unknown) if this is feasible. He is being (unknown) (no (unknown) (unknown) insulin-dependent (units (unknown) date) diabetes secondary unknown) to pancreatic insufficiency related to his (unknown) (no (unknown) (unknown) numbness for quite (units (unknown) date) some time, seems to unknown) be improving slowly since admission. He (unknown) (no (unknown) (unknown) possible at this (units (unknown) date) time, he remains unknown) worried about going home for now as discussed (unknown) (no (unknown) (unknown) pump. He reports (units (unknown) date) the pump was filled unknown) every 2 months and he is not due for a (unknown) (no (unknown) (unknown) referred to (units (un known) date) different facilities unknown) today by care management. (unknown) (no (unknown) (unknown) right forearm. (units (unknown) date) These all have unknown) occurred when he has been intoxicated and home (unknown) (no (unknown) (unknown) sacrum (units (unkno wn) date) unknown) (unknown) (no (unknown) (unknown) seems quite shaken (units (unknown) date) up from this unknown) admission, would like to get as much help as (unknown) (no (unknown) (unknown) superficial lee (units (unknown) date) noted to his right unknown) forearm (unknown) (no (unknown) (unknown) today. Will hold (units (unknown) date) his unknown) antihypertensives for the next 24 hours (unknown) (no (unknown) (unknown) treatment. He would (unit s (unknown) date) no evidence of DKA unknown) on admission. Certainly he could have (unknown) (no (unknown) (unknown) type 1 diabetic. (units (unknown) date) However it is not unknown) clear whether he is compliant with his (unknown) (no (unknown) (unknown) well as his gluteal (unit s (unknown) date) area/sacrum. He also unknown) has some superficial lee to his (unknown) (no (unknown) (unknown) which he was given (units (unknown) date) a dose of unknown) metoprolol. CHADS2 Vasc score is 2, consistent (unknown) (no (unknown) (unknown) will work on (units (u nknown) date) possible resources. unknown) He would benefit most from inpatient to (unknown) (no (unknown) (unknown) with a 2.2% stroke (units (unknown) date) risk annually. unknown) Unfortunately, he would be a very poor Result panel [id number] (unknown) (no (unknown) (unknown) (no value) (units (unk nown) date) unknown) (unknown) (no (unknown) (unknown) (past 8 hours): (units (unknown) date) unknown) (unknown) (no (unknown) (unknown) [id number] (units (unkno wn) date) unknown) (unknown) (no (unknown) (unknown) 01/16/23 01/16/23 (units (unknown) date) unknown) (unknown) (no (unknown) (unknown) 01/16/23 05:54 (units (unknown) date) unknown) (unknown) (no (unknown) (unknown) 01/16/23 1458 (units ( unknown) date) unknown) (unknown) (no (unknown) (unknown) 01/16/23 (units (unkno wn) date) unknown) (unknown) (no (unknown) (unknown) 05:54 05:54 (units (un known) date) unknown) (unknown) (no (unknown) (unknown) 08:00 01/16/23 (units (unknown) date) unknown) (unknown) (no (unknown) (unknown) 1. Alcohol (units (unk nown) date) dependence with unknown) withdrawal (unknown) (no (unknown) (unknown) 10 mg TID given (units (unknown) date) symptoms today. unknown) (unknown) (no (unknown) (unknown) 10. Hyponatremia (units (unknown) date) unknown) (unknown) (no (unknown) (unknown) 11. (units (unkno wn) date) Hypomagnesemia unknown) (unknown) (no (unknown) (unknown) 12. Transaminitis (units (unknown) date) unknown) (unknown) (no (unknown) (unknown) 12:00 (units (unkno wn) date) unknown) (unknown) (no (unknown) (unknown) 2. Suicidal (units (un known) date) ideation unknown) (unknown) (no (unknown) (unknown) 3. Multiple falls (units (unknown) date) secondary to gait unknown) instability (unknown) (no (unknown) (unknown) 4. Paroxysmal (units ( unknown) date) atrial unknown) fibrillation (unknown) (no (unknown) (unknown) 5. Diabetes (units (un known) date) mellitus, type unknown) unclear (unknown) (no (unknown) (unknown) 6. Hypertension (units (unknown) date) unknown) (unknown) (no (unknown) (unknown) 7. Chronic pain (units (unknown) date) syndrome unknown) (unknown) (no (unknown) (unknown) 8. BPH (units (unkno wn) date) unknown) (unknown) (no (unknown) (unknown) 9. Anemia (units (unkn own) date) unknown) (unknown) (no (unknown) (unknown) ABD: Soft, NT/ND, (units (unknown) date) BT present in all unknown) 4 quadrants, no organomegaly or masses (unknown) (no (unknown) (unknown) ALT 64 H (units (unkno wn) date) unknown) (unknown) (no (unknown) (unknown) AST 60 H (units (unkno wn) date) unknown) (unknown) (no (unknown) (unknown) Age/Sex: 53 / M (units (unknown) date) unknown) (unknown) (no (unknown) (unknown) Albumin 3.3 L (units ( unknown) date) unknown) (unknown) (no (unknown) (unknown) Albumin/Globulin (units (unknown) date) Ratio 1.2 unknown) (unknown) (no (unknown) (unknown) Alcohol (units (unkno wn) date) intoxication unknown) (unknown) (no (unknown) (unknown) Alkaline (units (unkno wn) date) Phosphatase 99 unknown) (unknown) (no (unknown) (unknown) Assessment + Plan (units (unknown) date) narrative: unknown) (unknown) (no (unknown) (unknown) Assessment + Plan (units (unknown) date) unknown) (unknown) (no (unknown) (unknown) BPH (benign (units (un known) date) prostatic unknown) hyperplasia) (unknown) (no (unknown) (unknown) BUN 17 (units (unkno wn) date) unknown) (unknown) (no (unknown) (unknown) BUN/Creatinine (units (unknown) date) Ratio 32.7 H unknown) (unknown) (no (unknown) (unknown) Baso # (Auto) 100 (units (unknown) date) unknown) (unknown) (no (unknown) (unknown) Baso % (Auto) 1.0 (units (unknown) date) unknown) (unknown) (no (unknown) (unknown) Blood Pressure (units (unknown) date) 147/85 H 114/75 unknown) (unknown) (no (unknown) (unknown) CHEST: (units (unkno wn) date) Respiratory unknown) excursions symmetric, CTAB (unknown) (no (unknown) (unknown) CV: RRR, no M/R/G (units (unknown) date) unknown) (unknown) (no (unknown) (unknown) Calcium 8.7 (units (un known) date) unknown) (unknown) (no (unknown) (unknown) Carbon Dioxide 30 (units (unknown) date) unknown) (unknown) (no (unknown) (unknown) Chloride 97 L (units ( unknown) date) unknown) (unknown) (no (unknown) (unknown) Chronic low back (units (unknown) date) pain unknown) (unknown) (no (unknown) (unknown) Code status (units (un known) date) unknown) (unknown) (no (unknown) (unknown) Complains of (units (u nknown) date) severe headache, unknown) shakiness and nausea today. Reports bilateral (unknown) (no (unknown) (unknown) Congestive heart (units (unknown) date) failure unknown) (unknown) (no (unknown) (unknown) Continue Flomax (units (unknown) date) unknown) (unknown) (no (unknown) (unknown) Creatinine 0.52 L (units (unknown) date) unknown) (unknown) (no (unknown) (unknown) : 1970 (units (unknown) date) Acct:[id number] unknown) (unknown) (no (unknown) (unknown) Date of Service: (units (unknown) date) 01/14/23 unknown) (unknown) (no (unknown) (unknown) Deep Vein (units (unkn own) date) Thrombosis/Pulmona unknown) ry Embolism Present on Admission: No (unknown) (no (unknown) (unknown) Disposition (units (un known) date) unknown) (unknown) (no (unknown) (unknown) Does have prior (units (unknown) date) history of DT, unknown) symptoms today are consistenth with withdrawal. (unknown) (no (unknown) (unknown) EXTR: warm, well (units (unknown) date) perfused, no unknown) C/C/E, scattered bruising noted to his arms, (unknown) (no (unknown) (unknown) Eos # (Auto) 100 (units (unknown) date) unknown) (unknown) (no (unknown) (unknown) Eos % (Auto) 1.4 (units (unknown) date) L unknown) (unknown) (no (unknown) (unknown) Essential (units (unkn own) date) hypertension unknown) (unknown) (no (unknown) (unknown) Estimated GFR > (units (unknown) date) 60 unknown) (unknown) (no (unknown) (unknown) Exam Narrative: (units (unknown) date) unknown) (unknown) (no (unknown) (unknown) Exam (units (unkno wn) date) unknown) (unknown) (no (unknown) (unknown) Family History (units (unknown) date) (Updated 01/15/23 unknown) @ 02:24 by Genesis Dunn [facility]) (unknown) (no (unknown) (unknown) Father Diabetes (units (unknown) date) mellitus unknown) (unknown) (no (unknown) (unknown) Full (units (unkno wn) date) unknown) (unknown) (no (unknown) (unknown) GEN: Alert and (units (unknown) date) oriented x 3, unknown) anxious and tearful, flat affect (unknown) (no (unknown) (unknown) Globulin 2.8 (units (u nknown) date) unknown) (unknown) (no (unknown) (unknown) Glucose 130 H D (units (unknown) date) unknown) (unknown) (no (unknown) (unknown) HEENT:NC, Face (units (unknown) date) symmetric unknown) (unknown) (no (unknown) (unknown) Hct 34.3 L (units (unk nown) date) unknown) (unknown) (no (unknown) (unknown) Hgb 11.7 L (units (unk nown) date) unknown) (unknown) (no (unknown) (unknown) History of (units (unk nown) date) shoulder surgery unknown) (unknown) (no (unknown) (unknown) However, (units (unkno wn) date) echocardiogram unknown) will be ordered to assess for evidence of (unknown) (no (unknown) (unknown) Hyperlipidemia (units (unknown) date) due to type 1 unknown) diabetes mellitus (unknown) (no (unknown) (unknown) Ideally discharge (units (unknown) date) to inpatient unknown) treatment, timing in a couple of days given (unknown) (no (unknown) (unknown) Interval history: (units (unknown) date) unknown) (unknown) (no (unknown) (unknown) [facility] (units (unknown) date) [address] unknown) [place] [address] (unknown) (no (unknown) (unknown) Laboratory (units (unk nown) date) Results - last 24 unknown) hr (unknown) (no (unknown) (unknown) Labs (units (unkno wn) date) unknown) (unknown) (no (unknown) (unknown) Labs: (units (unkno wn) date) unknown) (unknown) (no (unknown) (unknown) 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 LFTs are presently improving. (unknown) (no (unknown) (unknown) Lovenox ordered (units (unknown) date) unknown) (unknown) (no (unknown) (unknown) Lymph # (Auto) (units (unknown) date) 2300 unknown) (unknown) (no (unknown) (unknown) Lymph % (Auto) (units (unknown) date) 43.1 H D unknown) (unknown) (no (unknown) (unknown) MCH 32.7 (units (unkno wn) date) unknown) (unknown) (no (unknown) (unknown) MCHC 34.0 (units (unkn own) date) unknown) (unknown) (no (unknown) (unknown) MCV 96.1 (units (unkno wn) date) unknown) (unknown) (no (unknown) (unknown) Medical History (units (unknown) date) (Reviewed 01/15/23 unknown) @ 02:22 by Genesis Dunn [facility]) (unknown) (no (unknown) (unknown) Pender # (Auto) 500 (units (unknown) date) unknown) (unknown) (no (unknown) (unknown) Pender % (Auto) 9.0 (units (unknown) date) unknown) (unknown) (no (unknown) (unknown) Mother (units (unknown) date) Diabetes mellitus unknown) (unknown) (no (unknown) (unknown) Multiple falls (units (unknown) date) unknown) (unknown) (no (unknown) (unknown) NEURO: Alert and (units (unknown) date) oriented x 3, unknown) nonfocal (unknown) (no (unknown) (unknown) Narrative (units (unkn own) date) unknown) (unknown) (no (unknown) (unknown) Neut # (Auto) (units ( unknown) date) 2400 unknown) (unknown) (no (unknown) (unknown) Neut % (Auto) (units ( unknown) date) 45.5 L D unknown) (unknown) (no (unknown) (unknown) Normocytic. 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 (unknown) (no (unknown) (unknown) Objective (units (unkn own) date) unknown) (unknown) (no (unknown) (unknown) Oxygen Delivery (units (unknown) date) Method Room Air unknown) (unknown) (no (unknown) (unknown) Oxygen Flow Rate (units (unknown) date) 0 0 unknown) (unknown) (no (unknown) (unknown) Oxygen Flow Rate (units (unknown) date) 0 unknown) (unknown) (no (unknown) (unknown) PFSH (units (unkno wn) date) unknown) (unknown) (no (unknown) (unknown) Patient continues (units (unknown) date) on Lantus and unknown) sliding scale. Chart Notes refer to him being a (unknown) (no (unknown) (unknown) Patient has a (units ( unknown) date) healing laceration unknown) to his right forehead, bruises to his arms, as (unknown) (no (unknown) (unknown) Patient has a (units (u nknown) date) spinal stimulator unknown) in place as well as an intrathecal hydromorphone (unknown) (no (unknown) (unknown) Patient has had (units (unknown) date) multiple prior unknown) attempts from what his brother told me. No plan (unknown) (no (unknown) (unknown) Patient is on (units ( unknown) date) lisinopril and unknown) propranolol. He did develop some hypotension (unknown) (no (unknown) (unknown) Patient was noted (units (unknown) date) to have an episode unknown) of AFib in the emergency department for (unknown) (no (unknown) (unknown) Patient: (units (unkno wn) date) Octavio Romo unknown) MR#: [id number] (unknown) (no (unknown) (unknown) Plt Count 302 (units ( unknown) date) unknown) (unknown) (no (unknown) (unknown) Potassium 4.1 (units ( unknown) date) unknown) (unknown) (no (unknown) (unknown) Progress Note (units ( unknown) date) unknown) (unknown) (no (unknown) (unknown) Prophylaxis (units (un known) date) unknown) (unknown) (no (unknown) (unknown) Provider: (units (unkn own) date) Terry Gomez unknown) D.O. (unknown) (no (unknown) (unknown) Pulse Oximetry 97 (units (unknown) date) 96 unknown) (unknown) (no (unknown) (unknown) Pulse Rate 55 L (units (unknown) date) 81 unknown) (unknown) (no (unknown) (unknown) Quality (units (unkno wn) date) unknown) (unknown) (no (unknown) (unknown) RBC 3.56 L (units (unk nown) date) unknown) (unknown) (no (unknown) (unknown) RDW 13.4 (units (unkno wn) date) unknown) (unknown) (no (unknown) (unknown) Respiratory Rate (units (unknown) date) 18 20 unknown) (unknown) (no (unknown) (unknown) SKIN: warm and (units ( unknown) date) dry, no rash, unknown) large dark bruise noted round his gluteal folds and (unknown) (no (unknown) (unknown) Signed (units (unkno wn) date) By:<Electronically unknown) signed by Terry Gomez D.O.> (unknown) (no (unknown) (unknown) Smoking Status: (units (unknown) date) Never smoker unknown) (unknown) (no (unknown) (unknown) Social History (units (unknown) date) (Updated 01/15/23 unknown) @ 02:23 by DOUG Chairez) (unknown) (no (unknown) (unknown) Sodium 133 L (units (u nknown) date) unknown) (unknown) (no (unknown) (unknown) Sodium is 133 (units ( unknown) date) today. Will unknown) monitor. (unknown) (no (unknown) (unknown) Subjective (units (unk nown) date) unknown) (unknown) (no (unknown) (unknown) Surgical History (units (unknown) date) (Reviewed 01/15/23 unknown) @ 02:22 by DOUG Chairez) (unknown) (no (unknown) (unknown) Temperature 98.7 (units (unknown) date) F 98.6 F unknown) (unknown) (no (unknown) (unknown) Total Bilirubin (units (unknown) date) 0.6 unknown) (unknown) (no (unknown) (unknown) Total Protein 6.1 (units (unknown) date) L unknown) (unknown) (no (unknown) (unknown) VTE (units (unkno wn) date) unknown) (unknown) (no (unknown) (unknown) Vital Signs (units (un known) date) unknown) (unknown) (no (unknown) (unknown) WBC 5.2 (units (unkno wn) date) unknown) (unknown) (no (unknown) (unknown) Will monitor. (units ( unknown) date) unknown) (unknown) (no (unknown) (unknown) [Embedded Image (units (unknown) date) Not Available] unknown) (unknown) (no (unknown) (unknown) alcohol (units (unkno wn) date) dependence. A bit unknown) unclear on when he was diagnosed and there is not any (unknown) (no (unknown) (unknown) alcohol intake: (units (unknown) date) current unknown) (unknown) (no (unknown) (unknown) alone. PT and OT (units (unknown) date) ordered. unknown) (unknown) (no (unknown) (unknown) at this time but (units (unknown) date) he notes he does unknown) not feel safe at home. Would likely benefit (unknown) (no (unknown) (unknown) attempted librium (units (unknown) date) yesterday but BP unknown) dipped slightly, will trial smaller dose with (unknown) (no (unknown) (unknown) by previous (units (un known) date) provider. unknown) (unknown) (no (unknown) (unknown) candidate for (units ( unknown) date) anticoagulation unknown) due to his alcohol dependence and frequent falls. (unknown) (no (unknown) (unknown) cardiomyopathy, (units (unknown) date) valvular disease unknown) LV dysfunction. (unknown) (no (unknown) (unknown) continue CIWA (units ( unknown) date) protocol with prn unknown) benzos. (unknown) (no (unknown) (unknown) continue (units (unkno wn) date) fingersticks, unknown) sliding scale, and Lantus. (unknown) (no (unknown) (unknown) continue prn (units (u nknown) date) repletion unknown) (unknown) (no (unknown) (unknown) continued (units (unkn own) date) withdrawal unknown) symptoms, appreciate care management assistance in placem (unknown) (no (unknown) (unknown) couple of weeks (units (unknown) date) for refill. unknown) (unknown) (no (unknown) (unknown) ent. (units (unkno wn) date) unknown) (unknown) (no (unknown) (unknown) from a program (units (unknown) date) that does dual unknown) diagnosis. GEOLOGY INSTRUCTOR met with the patient today and (unknown) (no (unknown) (unknown) household (units (unkn own) date) members: none unknown) (unknown) (no (unknown) (unknown) information with (units (unknown) date) regard to his unknown) diabetes in the medical record. We will (unknown) (no (unknown) (unknown) inpatient (units (unkn own) date) transfer but unknown) remain uncertain if this is feasible. He is being (unknown) (no (unknown) (unknown) insulin-dependent (units (unknown) date) diabetes secondary unknown) to pancreatic insufficiency related to his (unknown) (no (unknown) (unknown) numbness for (units (u nknown) date) quite some time, unknown) seems to be improving slowly since admission. He (unknown) (no (unknown) (unknown) possible at this (units (unknown) date) time, he remains unknown) worried about going home for now as discussed (unknown) (no (unknown) (unknown) pump. He reports (units (unknown) date) the pump was unknown) filled every 2 months and he is not due for a (unknown) (no (unknown) (unknown) referred to (units (un known) date) different unknown) facilities today by care management. (unknown) (no (unknown) (unknown) right forearm. (units (unknown) date) These all have unknown) occurred when he has been intoxicated and home (unknown) (no (unknown) (unknown) sacrum (units (unkno wn) date) unknown) (unknown) (no (unknown) (unknown) seems quite (units (un known) date) shaken up from unknown) this admission, would like to get as much help as (unknown) (no (unknown) (unknown) superficial lee (units (unknown) date) noted to his right unknown) forearm (unknown) (no (unknown) (unknown) treatment. He (units ( unknown) date) would no evidence unknown) of DKA on admission. Certainly he could have (unknown) (no (unknown) (unknown) type 1 diabetic. (units (unknown) date) However it is not unknown) clear whether he is compliant with his (unknown) (no (unknown) (unknown) well as his (units (un known) date) gluteal unknown) area/sacrum. He also has some superficial lee to his (unknown) (no (unknown) (unknown) which he was (units (u nknown) date) given a dose of unknown) metoprolol. CHADS2 Vasc score is 2, consistent (unknown) (no (unknown) (unknown) will work on (units (u nknown) date) possible unknown) resources. He would benefit most from inpatient to (unknown) (no (unknown) (unknown) with a 2.2% (units (un known) date) stroke risk unknown) annually. Unfortunately, he would be a very poor (unknown) (no (unknown) (unknown) yesterday, with (units (unknown) date) librium noted unknown) above will continue to hold today. Result panel 258 (unknown) (no date) (unknown) (unknown) 237 mg/dl (unkn own) (unknown) (no date) (unknown) (unknown) 237 mg/dl (unkn own) (unknown) (no date) (unknown) (unknown) 9.9 % (unkn own) (unknown) (no date) (unknown) (unknown) 9.9 % (unkn own) Result panel 259 (unknown) (no date) (unknown) (unknown) 1.5 % (unkn own) (unknown) (no date) (unknown) (unknown) 100 /ul (unkn own) (unknown) (no date) (unknown) (unknown) 100 /ul (unkn own) (unknown) (no date) (unknown) (unknown) 11.8 g/dl (unkn own) (unknown) (no date) (unknown) (unknown) 13.4 % (unkn own) (unknown) (no date) (unknown) (unknown) 1600 /ul (unkn own) (unknown) (no date) (unknown) (unknown) 1900 /ul (unkn own) (unknown) (no date) (unknown) (unknown) 3.5 % (unkn own) (unknown) (no date) (unknown) (unknown) 3.62 x10 6/ul (unkn own) (unknown) (no date) (unknown) (unknown) 300 /ul (unkn own) (unknown) (no date) (unknown) (unknown) 306 x10 3/ul (unkn own) (unknown) (no date) (unknown) (unknown) 32.6 pg (unkn own) (unknown) (no date) (unknown) (unknown) 33.7 % (unkn own) (unknown) (no date) (unknown) (unknown) 35.0 % (unkn own) (unknown) (no date) (unknown) (unknown) 39.1 % (unkn own) (unknown) (no date) (unknown) (unknown) 4.1 x10 3/ul (unkn own) (unknown) (no date) (unknown) (unknown) 47.6 % (unkn own) (unknown) (no date) (unknown) (unknown) 8.3 % (unkn own) (unknown) (no date) (unknown) (unknown) 96.6 fl (unkn own) Result panel 260 (unknown) (no date) (unknown) (unknown) > 60 ml/min (unkn own) (unknown) (no date) (unknown) (unknown) > 60 ml/min (unkn own) (unknown) (no date) (unknown) (unknown) 0.5 mg/dl (unkn own) (unknown) (no date) (unknown) (unknown) 0.51 mg/dl (unkn own) (unknown) (no date) (unknown) (unknown) 1.2 (units unknown) (unknown) (unknown) (no date) (unknown) (unknown) 111 u/l (unkn own) (unknown) (no date) (unknown) (unknown) 133 mmol/l (unkn own) (unknown) (no date) (unknown) (unknown) 14 mg/dl (unkn own) (unknown) (no date) (unknown) (unknown) 160 mg/dl (unkn own) (unknown) (no date) (unknown) (unknown) 160 mg/dl (unkn own) (unknown) (no date) (unknown) (unknown) 2.7 g/dl (unkn own) (unknown) (no date) (unknown) (unknown) 27.5 (units unknown) (unknown) (unknown) (no date) (unknown) (unknown) 3.2 g/dl (unkn own) (unknown) (no date) (unknown) (unknown) 3.9 mmol/l (unkn own) (unknown) (no date) (unknown) (unknown) 30 mmol/l (unkn own) (unknown) (no date) (unknown) (unknown) 5.9 g/dl (unkn own) (unknown) (no date) (unknown) (unknown) 54 iu/l (unkn own) (unknown) (no date) (unknown) (unknown) 58 iu/l (unkn own) (unknown) (no date) (unknown) (unknown) 8.4 mg/dl (unkn own) (unknown) (no date) (unknown) (unknown) 98 mmol/l (unkn own) Result panel 261 (unknown) (no date) (unknown) (unknown) 1.4 mg/dl (unkn own) Result panel 262 (unknown) (no date) (unknown) (unknown) (no value) (units (un known) unknown) (unknown) (no date) (unknown) (unknown) Mixed gram + (units ( unknown) janine. Deemed unknown) unsuitable for further studies. Result panel 263 (unknown) (no (unknown) (unknown) (no value) (units (unk nown) date) unknown) (unknown) (no (unknown) (unknown) (past 8 hours): (units (unknown) date) unknown) (unknown) (no (unknown) (unknown) [id number] (units (unkno wn) date) unknown) (unknown) (no (unknown) (unknown) 01/14/23 01/17/23 (units (unknown) date) 01/17/23 unknown) (unknown) (no (unknown) (unknown) 01/17/23 05:25 (units (unknown) date) unknown) (unknown) (no (unknown) (unknown) 01/17/23 (units (unkno wn) date) unknown) (unknown) (no (unknown) (unknown) 04:00 01/17/23 (units (unknown) date) unknown) (unknown) (no (unknown) (unknown) 04:30 01/17/23 (units (unknown) date) unknown) (unknown) (no (unknown) (unknown) 05:25 (units (unkno wn) date) unknown) (unknown) (no (unknown) (unknown) 05:51 (units (unkno wn) date) unknown) (unknown) (no (unknown) (unknown) 08:10 01/17/23 (units (unknown) date) unknown) (unknown) (no (unknown) (unknown) 08:27 01/17/23 (units (unknown) date) unknown) (unknown) (no (unknown) (unknown) 09:28 (units (unkno wn) date) unknown) (unknown) (no (unknown) (unknown) 1. Alcohol (units (unk nown) date) dependence with unknown) withdrawal (unknown) (no (unknown) (unknown) 10. Hyponatremia (units (unknown) date) unknown) (unknown) (no (unknown) (unknown) 11. (units (unkno wn) date) Hypomagnesemia unknown) (unknown) (no (unknown) (unknown) 12. Transaminitis (units (unknown) date) unknown) (unknown) (no (unknown) (unknown) 2. Suicidal (units (un known) date) ideation unknown) (unknown) (no (unknown) (unknown) 23:10 05:25 05:25 (units (unknown) date) unknown) (unknown) (no (unknown) (unknown) 3. Multiple falls (units (unknown) date) secondary to gait unknown) instability (unknown) (no (unknown) (unknown) 4. Paroxysmal (units ( unknown) date) atrial unknown) fibrillation (unknown) (no (unknown) (unknown) 5. Diabetes (units (un known) date) mellitus, type unknown) unclear (unknown) (no (unknown) (unknown) 6. Hypertension (units (unknown) date) unknown) (unknown) (no (unknown) (unknown) 7. Chronic pain (units (unknown) date) syndrome unknown) (unknown) (no (unknown) (unknown) 8. BPH (units (unkno wn) date) unknown) (unknown) (no (unknown) (unknown) 9. Anemia (units (unkn own) date) unknown) (unknown) (no (unknown) (unknown) ABD: Soft, NT/ND, (units (unknown) date) BT present in all unknown) 4 quadrants, no organomegaly or masses (unknown) (no (unknown) (unknown) ALT 58 H (units (unkno wn) date) unknown) (unknown) (no (unknown) (unknown) ALT (units (unkno wn) date) unknown) (unknown) (no (unknown) (unknown) AST 54 (units (unkno wn) date) unknown) (unknown) (no (unknown) (unknown) AST (units (unkno wn) date) unknown) (unknown) (no (unknown) (unknown) Age/Sex: 53 / M (units (unknown) date) unknown) (unknown) (no (unknown) (unknown) Albumin 3.2 L (units ( unknown) date) unknown) (unknown) (no (unknown) (unknown) Albumin (units (unkno wn) date) unknown) (unknown) (no (unknown) (unknown) Albumin/Globulin (units (unknown) date) Ratio 1.2 unknown) (unknown) (no (unknown) (unknown) Albumin/Globulin (units (unknown) date) Ratio unknown) (unknown) (no (unknown) (unknown) Alcohol (units (unkno wn) date) intoxication unknown) (unknown) (no (unknown) (unknown) Alkaline (units (unkno wn) date) Phosphatase 111 unknown) (unknown) (no (unknown) (unknown) Alkaline (units (unkno wn) date) Phosphatase unknown) (unknown) (no (unknown) (unknown) Assessment + Plan (units (unknown) date) narrative: unknown) (unknown) (no (unknown) (unknown) Assessment + Plan (units (unknown) date) unknown) (unknown) (no (unknown) (unknown) BPH (benign (units (un known) date) prostatic unknown) hyperplasia) (unknown) (no (unknown) (unknown) BUN 14 (units (unkno wn) date) unknown) (unknown) (no (unknown) (unknown) BUN (units (unkno wn) date) unknown) (unknown) (no (unknown) (unknown) BUN/Creatinine (units (unknown) date) Ratio 27.5 H unknown) (unknown) (no (unknown) (unknown) BUN/Creatinine (units (unknown) date) Ratio unknown) (unknown) (no (unknown) (unknown) Baso # (Auto) 100 (units (unknown) date) unknown) (unknown) (no (unknown) (unknown) Baso # (Auto) (units ( unknown) date) unknown) (unknown) (no (unknown) (unknown) Baso % (Auto) 1.5 (units (unknown) date) unknown) (unknown) (no (unknown) (unknown) Baso % (Auto) (units ( unknown) date) unknown) (unknown) (no (unknown) (unknown) Blood Pressure (units (unknown) date) 136/91 H 136/91 H unknown) 136/91 H (unknown) (no (unknown) (unknown) Blood Pressure (units (unknown) date) 141/80 H 149/89 H unknown) 144/87 H (unknown) (no (unknown) (unknown) CHEST: (units (unkno wn) date) Respiratory unknown) excursions symmetric, CTAB (unknown) (no (unknown) (unknown) CV: RRR, no M/R/G (units (unknown) date) unknown) (unknown) (no (unknown) (unknown) Calcium 8.4 (units (un known) date) unknown) (unknown) (no (unknown) (unknown) Calcium (units (unkno wn) date) unknown) (unknown) (no (unknown) (unknown) Carbon Dioxide 30 (units (unknown) date) unknown) (unknown) (no (unknown) (unknown) Carbon Dioxide (units (unknown) date) unknown) (unknown) (no (unknown) (unknown) Chloride 98 (units (un known) date) unknown) (unknown) (no (unknown) (unknown) Chloride (units (unkno wn) date) unknown) (unknown) (no (unknown) (unknown) Chronic low back (units (unknown) date) pain unknown) (unknown) (no (unknown) (unknown) Code status (units (un known) date) unknown) (unknown) (no (unknown) (unknown) Complains of (units (un known) date) continued unknown) headache, shakiness and nausea today. Some sensitivity to (unknown) (no (unknown) (unknown) Congestive heart (units (unknown) date) failure unknown) (unknown) (no (unknown) (unknown) Continue Flomax (units (unknown) date) unknown) (unknown) (no (unknown) (unknown) Creatinine 0.51 L (units (unknown) date) unknown) (unknown) (no (unknown) (unknown) Creatinine (units (unk nown) date) unknown) (unknown) (no (unknown) (unknown) : 1970 (units (unknown) date) Acct:[id number] unknown) (unknown) (no (unknown) (unknown) Date of Service: (units (unknown) date) 01/14/23 unknown) (unknown) (no (unknown) (unknown) Deep Vein (units (unkn own) date) Thrombosis/Pulmona unknown) ry Embolism Present on Admission: No (unknown) (no (unknown) (unknown) Disposition (units (un known) date) unknown) (unknown) (no (unknown) (unknown) Does have prior (units (unknown) date) history of DT, unknown) symptoms today are consistenth with withdrawal. (unknown) (no (unknown) (unknown) EXTR: warm, well (units (unknown) date) perfused, no unknown) C/C/E, scattered bruising noted to his arms, (unknown) (no (unknown) (unknown) Eos # (Auto) 100 (units (unknown) date) unknown) (unknown) (no (unknown) (unknown) Eos # (Auto) (units (u nknown) date) unknown) (unknown) (no (unknown) (unknown) Eos % (Auto) 3.5 (units (unknown) date) unknown) (unknown) (no (unknown) (unknown) Eos % (Auto) (units (u nknown) date) unknown) (unknown) (no (unknown) (unknown) Essential (units (unkn own) date) hypertension unknown) (unknown) (no (unknown) (unknown) Estim Average (units ( unknown) date) Glucose 237 unknown) (unknown) (no (unknown) (unknown) Estim Average (units ( unknown) date) Glucose unknown) (unknown) (no (unknown) (unknown) Estimated GFR > (units (unknown) date) 60 unknown) (unknown) (no (unknown) (unknown) Estimated GFR (units ( unknown) date) unknown) (unknown) (no (unknown) (unknown) Exam Narrative: (units (unknown) date) unknown) (unknown) (no (unknown) (unknown) Exam (units (unkno wn) date) unknown) (unknown) (no (unknown) (unknown) Family History (units (unknown) date) (Updated 01/15/23 unknown) @ 02:24 by Genesis Dunn [facility]) (unknown) (no (unknown) (unknown) Father Diabetes (units (unknown) date) mellitus unknown) (unknown) (no (unknown) (unknown) Full (units (unkno wn) date) unknown) (unknown) (no (unknown) (unknown) GEN: Alert and (units (unknown) date) oriented x 3, no unknown) acute distress (unknown) (no (unknown) (unknown) Globulin 2.7 (units (u nknown) date) unknown) (unknown) (no (unknown) (unknown) Globulin (units (unkno wn) date) unknown) (unknown) (no (unknown) (unknown) Glucose 160 H (units ( unknown) date) unknown) (unknown) (no (unknown) (unknown) Glucose (units (unkno wn) date) unknown) (unknown) (no (unknown) (unknown) HEENT:NC, Face (units (unknown) date) symmetric unknown) (unknown) (no (unknown) (unknown) Hct 35.0 L (units (unk nown) date) unknown) (unknown) (no (unknown) (unknown) Hct (units (unkno wn) date) unknown) (unknown) (no (unknown) (unknown) Hgb 11.8 L (units (unk nown) date) unknown) (unknown) (no (unknown) (unknown) Hgb A1c (Ref Lab) (units (unknown) date) 9.9 H unknown) (unknown) (no (unknown) (unknown) Hgb A1c (Ref Lab) (units (unknown) date) unknown) (unknown) (no (unknown) (unknown) Hgb (units (unkno wn) date) unknown) (unknown) (no (unknown) (unknown) History of (units (unk nown) date) shoulder surgery unknown) (unknown) (no (unknown) (unknown) However, (units (unkno wn) date) echocardiogram unknown) will be ordered to assess for evidence of (unknown) (no (unknown) (unknown) Hyperlipidemia (units (unknown) date) due to type 1 unknown) diabetes mellitus (unknown) (no (unknown) (unknown) Ideally discharge (units (unknown) date) to inpatient unknown) treatment, timing in a couple of days given (unknown) (no (unknown) (unknown) Interval history: (units (unknown) date) unknown) (unknown) (no (unknown) (unknown) [facility] (units (unknown) date) [address] unknown) [place] [address] (unknown) (no (unknown) (unknown) Laboratory (units (unk nown) date) Results - last 24 unknown) hr (unknown) (no (unknown) (unknown) Labs (units (unkno wn) date) unknown) (unknown) (no (unknown) (unknown) Labs: (units (unkno wn) date) unknown) (unknown) (no (unknown) (unknown) 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 LFTs are presently improving. (unknown) (no (unknown) (unknown) Lovenox ordered (units (unknown) date) unknown) (unknown) (no (unknown) (unknown) Lymph # (Auto) (units (unknown) date) 1600 unknown) (unknown) (no (unknown) (unknown) Lymph # (Auto) (units (unknown) date) unknown) (unknown) (no (unknown) (unknown) Lymph % (Auto) (units (unknown) date) 39.1 unknown) (unknown) (no (unknown) (unknown) Lymph % (Auto) (units (unknown) date) unknown) (unknown) (no (unknown) (unknown) MCH 32.6 (units (unkno wn) date) unknown) (unknown) (no (unknown) (unknown) MCH (units (unkno wn) date) unknown) (unknown) (no (unknown) (unknown) MCHC 33.7 (units (unkn own) date) unknown) (unknown) (no (unknown) (unknown) MCHC (units (unkno wn) date) unknown) (unknown) (no (unknown) (unknown) MCV 96.6 (units (unkno wn) date) unknown) (unknown) (no (unknown) (unknown) MCV (units (unkno wn) date) unknown) (unknown) (no (unknown) (unknown) Magnesium 1.4 L (units (unknown) date) unknown) (unknown) (no (unknown) (unknown) Magnesium (units (unkn own) date) unknown) (unknown) (no (unknown) (unknown) Medical History (units (unknown) date) (Reviewed 01/15/23 unknown) @ 02:22 by Genesis Dunn [facility]) (unknown) (no (unknown) (unknown) Pender # (Auto) 300 (units (unknown) date) unknown) (unknown) (no (unknown) (unknown) Pender # (Auto) (units ( unknown) date) unknown) (unknown) (no (unknown) (unknown) Pender % (Auto) 8.3 (units (unknown) date) unknown) (unknown) (no (unknown) (unknown) Pender % (Auto) (units ( unknown) date) unknown) (unknown) (no (unknown) (unknown) Mother (units (unknown) date) Diabetes mellitus unknown) (unknown) (no (unknown) (unknown) Multiple falls (units (unknown) date) unknown) (unknown) (no (unknown) (unknown) NEURO: Alert and (units (unknown) date) oriented x 3, unknown) nonfocal but + tongue fasciculations and (unknown) (no (unknown) (unknown) Narrative (units (unkn own) date) unknown) (unknown) (no (unknown) (unknown) Neut # (Auto) (units ( unknown) date) 1900 unknown) (unknown) (no (unknown) (unknown) Neut # (Auto) (units ( unknown) date) unknown) (unknown) (no (unknown) (unknown) Neut % (Auto) (units ( unknown) date) 47.6 L unknown) (unknown) (no (unknown) (unknown) Neut % (Auto) (units ( unknown) date) unknown) (unknown) (no (unknown) (unknown) Normocytic. 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 (unknown) (no (unknown) (unknown) Objective (units (unkn own) date) unknown) (unknown) (no (unknown) (unknown) Oxygen Delivery (units (unknown) date) Method Room Air unknown) (unknown) (no (unknown) (unknown) Oxygen Flow Rate (units (unknown) date) 0 unknown) (unknown) (no (unknown) (unknown) PFSH (units (unkno wn) date) unknown) (unknown) (no (unknown) (unknown) Patient continues (units (unknown) date) on Lantus and unknown) sliding scale. Chart Notes refer to him being a (unknown) (no (unknown) (unknown) Patient has a (units ( unknown) date) healing laceration unknown) to his right forehead, bruises to his arms, as (unknown) (no (unknown) (unknown) Patient has a (units (u nknown) date) spinal stimulator unknown) in place as well as an intrathecal hydromorphone (unknown) (no (unknown) (unknown) Patient has had (units (unknown) date) multiple prior unknown) attempts from what his brother told me. No plan (unknown) (no (unknown) (unknown) Patient is on (units ( unknown) date) lisinopril and unknown) propranolol. He did develop some hypotension (unknown) (no (unknown) (unknown) Patient was noted (units (unknown) date) to have an episode unknown) of AFib in the emergency department for (unknown) (no (unknown) (unknown) Patient: (units (unkno wn) date) Octavio Romo unknown) MR#: [id number] (unknown) (no (unknown) (unknown) Plt Count [phone] (units ( unknown) date) unknown) (unknown) (no (unknown) (unknown) Plt Count (units (unkn own) date) unknown) (unknown) (no (unknown) (unknown) Potassium 3.9 (units ( unknown) date) unknown) (unknown) (no (unknown) (unknown) Potassium (units (unkn own) date) unknown) (unknown) (no (unknown) (unknown) Progress Note (units ( unknown) date) unknown) (unknown) (no (unknown) (unknown) Prophylaxis (units (un known) date) unknown) (unknown) (no (unknown) (unknown) Provider: (units (unkn own) date) Terry Gomez unknown) D.O. (unknown) (no (unknown) (unknown) Pulse Oximetry 94 (units (unknown) date) unknown) (unknown) (no (unknown) (unknown) Pulse Oximetry 96 (units (unknown) date) unknown) (unknown) (no (unknown) (unknown) Pulse Rate 50 L (units (unknown) date) 69 unknown) (unknown) (no (unknown) (unknown) Pulse Rate 51 L (units (unknown) date) 51 L 52 L unknown) (unknown) (no (unknown) (unknown) Quality (units (unkno wn) date) unknown) (unknown) (no (unknown) (unknown) RBC 3.62 L (units (unk nown) date) unknown) (unknown) (no (unknown) (unknown) RBC (units (unkno wn) date) unknown) (unknown) (no (unknown) (unknown) RDW 13.4 (units (unkno wn) date) unknown) (unknown) (no (unknown) (unknown) RDW (units (unkno wn) date) unknown) (unknown) (no (unknown) (unknown) Respiratory Rate (units (unknown) date) 16 16 unknown) (unknown) (no (unknown) (unknown) Respiratory Rate (units (unknown) date) 18 16 16 unknown) (unknown) (no (unknown) (unknown) SKIN: warm and (units ( unknown) date) dry, no rash, unknown) large dark bruise noted round his gluteal folds and (unknown) (no (unknown) (unknown) Signed By: (units (unk nown) date) unknown) (unknown) (no (unknown) (unknown) Smoking Status: (units (unknown) date) Never smoker unknown) (unknown) (no (unknown) (unknown) Social History (units (unknown) date) (Updated 01/15/23 unknown) @ 02:23 by SOMMER Chairez) (unknown) (no (unknown) (unknown) Sodium 133 L (units (u nknown) date) unknown) (unknown) (no (unknown) (unknown) Sodium is 133 (units ( unknown) date) today. Will unknown) monitor. (unknown) (no (unknown) (unknown) Sodium (units (unkno wn) date) unknown) (unknown) (no (unknown) (unknown) Subjective (units (unk nown) date) unknown) (unknown) (no (unknown) (unknown) Surgical History (units (unknown) date) (Reviewed 01/15/23 unknown) @ 02:22 by Genesis Dunn [facility]) (unknown) (no (unknown) (unknown) Temperature 97.1 (units (unknown) date) F L unknown) (unknown) (no (unknown) (unknown) Temperature 97.8 (units (unknown) date) F unknown) (unknown) (no (unknown) (unknown) Total Bilirubin (units (unknown) date) 0.5 unknown) (unknown) (no (unknown) (unknown) Total Bilirubin (units (unknown) date) unknown) (unknown) (no (unknown) (unknown) Total Protein 5.9 (units (unknown) date) L unknown) (unknown) (no (unknown) (unknown) Total Protein (units ( unknown) date) unknown) (unknown) (no (unknown) (unknown) VTE (units (unkno wn) date) unknown) (unknown) (no (unknown) (unknown) Vital Signs (units (un known) date) unknown) (unknown) (no (unknown) (unknown) WBC 4.1 L (units (unkn own) date) unknown) (unknown) (no (unknown) (unknown) WBC (units (unkno wn) date) unknown) (unknown) (no (unknown) (unknown) Will monitor. (units ( unknown) date) unknown) (unknown) (no (unknown) (unknown) [Embedded Image (units (unknown) date) Not Available] unknown) (unknown) (no (unknown) (unknown) a bit worse he (units (unknown) date) feels. unknown) (unknown) (no (unknown) (unknown) alcohol (units (unkno wn) date) dependence. A bit unknown) unclear on when he was diagnosed and there is not any (unknown) (no (unknown) (unknown) alcohol intake: (units (unknown) date) current unknown) (unknown) (no (unknown) (unknown) alone. 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 PT and OT ordered, will (unknown) (no (unknown) (unknown) at this time but (units (unknown) date) he notes he does unknown) not feel safe at home. Would likely benefit (unknown) (no (unknown) (unknown) attempted librium (units (unknown) date) yesterday unknown) previously but BP dipped, okay with 10 mg TID (unknown) (no (unknown) (unknown) candidate for (units ( unknown) date) anticoagulation unknown) due to his alcohol dependence and frequent falls. (unknown) (no (unknown) (unknown) cardiomyopathy, (units (unknown) date) valvular disease unknown) LV dysfunction. (unknown) (no (unknown) (unknown) continue CIWA (units ( unknown) date) protocol with prn unknown) benzos. (unknown) (no (unknown) (unknown) continue (units (unkno wn) date) fingersticks, unknown) sliding scale, and Lantus. (unknown) (no (unknown) (unknown) continue prn (units (u nknown) date) repletion unknown) (unknown) (no (unknown) (unknown) continued (units (unkn own) date) withdrawal unknown) symptoms, appreciate care management assistance in (unknown) (no (unknown) (unknown) couple of weeks (units (unknown) date) for refill. unknown) (unknown) (no (unknown) (unknown) from a program (units (unknown) date) that does dual unknown) diagnosis. GEOLOGY INSTRUCTOR met with the patient today and (unknown) (no (unknown) (unknown) household (units (unkn own) date) members: none unknown) (unknown) (no (unknown) (unknown) information with (units (unknown) date) regard to his unknown) diabetes in the medical record. We will (unknown) (no (unknown) (unknown) inpatient (units (unkn own) date) transfer but unknown) remain uncertain if this is feasible. He is being (unknown) (no (unknown) (unknown) insulin-dependent (units (unknown) date) diabetes secondary unknown) to pancreatic insufficiency related to his (unknown) (no (unknown) (unknown) light. Denies (units (u nknown) date) history of unknown) migraines. No other focal findings on exam. Tremors are (unknown) (no (unknown) (unknown) placement. (units (unk nown) date) unknown) (unknown) (no (unknown) (unknown) pump. He reports (units (unknown) date) the pump was unknown) filled every 2 months and he is not due for a (unknown) (no (unknown) (unknown) referred to (units (un known) date) different unknown) facilities by care management. (unknown) (no (unknown) (unknown) right forearm. (units (unknown) date) These all have unknown) occurred when he has been intoxicated and home (unknown) (no (unknown) (unknown) sacrum (units (unkno wn) date) unknown) (unknown) (no (unknown) (unknown) see today. (units (unk nown) date) unknown) (unknown) (no (unknown) (unknown) superficial lee (units (unknown) date) noted to his right unknown) forearm (unknown) (no (unknown) (unknown) today. (units (unkno wn) date) unknown) (unknown) (no (unknown) (unknown) treatment. He (units ( unknown) date) would no evidence unknown) of DKA on admission. Certainly he could have (unknown) (no (unknown) (unknown) tremulousness. (units (unknown) date) unknown) (unknown) (no (unknown) (unknown) type 1 diabetic. (units (unknown) date) However it is not unknown) clear whether he is compliant with his (unknown) (no (unknown) (unknown) well as his (units (un known) date) gluteal unknown) area/sacrum. He also has some superficial lee to his (unknown) (no (unknown) (unknown) which he was (units (u nknown) date) given a dose of unknown) metoprolol. CHADS2 Vasc score is 2, consistent (unknown) (no (unknown) (unknown) will work on (units (u nknown) date) possible unknown) resources. He would benefit most from inpatient to (unknown) (no (unknown) (unknown) with a 2.2% (units (un known) date) stroke risk unknown) annually. Unfortunately, he would be a very poor (unknown) (no (unknown) (unknown) yesterday, will (units (unknown) date) increase back to unknown) 25 TID today given reported worsening tremor (unknown) (no (unknown) (unknown) yesterday, with (units (unknown) date) librium noted unknown) above will continue to hold today. Result panel 264 (unknown) (no (unknown) (unknown) (no value) (units (unk nown) date) unknown) (unknown) (no (unknown) (unknown) (past 8 hours): (units (unknown) date) unknown) (unknown) (no (unknown) (unknown) - TTE performed (units (unknown) date) previously, but unknown) not in system, will work today to obtain report. (unknown) (no (unknown) (unknown) - repleted with (units (unknown) date) IV today. will unknown) replete, may be contributing to weakness. (unknown) (no (unknown) (unknown) [id number] (units (unkno wn) date) unknown) (unknown) (no (unknown) (unknown) 01/14/23 01/17/23 (units (unknown) date) 01/17/23 unknown) (unknown) (no (unknown) (unknown) 01/17/23 05:25 (units (unknown) date) unknown) (unknown) (no (unknown) (unknown) 01/17/23 1046 (units ( unknown) date) unknown) (unknown) (no (unknown) (unknown) 01/17/23 (units (unkno wn) date) unknown) (unknown) (no (unknown) (unknown) 04:00 01/17/23 (units (unknown) date) unknown) (unknown) (no (unknown) (unknown) 04:30 01/17/23 (units (unknown) date) unknown) (unknown) (no (unknown) (unknown) 05:25 (units (unkno wn) date) unknown) (unknown) (no (unknown) (unknown) 05:51 (units (unkno wn) date) unknown) (unknown) (no (unknown) (unknown) 08:10 01/17/23 (units (unknown) date) unknown) (unknown) (no (unknown) (unknown) 08:27 01/17/23 (units (unknown) date) unknown) (unknown) (no (unknown) (unknown) 09:28 (units (unkno wn) date) unknown) (unknown) (no (unknown) (unknown) 1. Alcohol (units (unk nown) date) dependence with unknown) withdrawal (unknown) (no (unknown) (unknown) 10. Hyponatremia (units (unknown) date) unknown) (unknown) (no (unknown) (unknown) 11. (units (unkno wn) date) Hypomagnesemia unknown) (unknown) (no (unknown) (unknown) 12. Transaminitis (units (unknown) date) unknown) (unknown) (no (unknown) (unknown) 13. (units (unkno wn) date) hypomagnesemia unknown) (unknown) (no (unknown) (unknown) 2. Suicidal (units (un known) date) ideation unknown) (unknown) (no (unknown) (unknown) 23:10 05:25 05:25 (units (unknown) date) unknown) (unknown) (no (unknown) (unknown) 3. Multiple falls (units (unknown) date) secondary to gait unknown) instability (unknown) (no (unknown) (unknown) 4. Paroxysmal (units ( unknown) date) atrial unknown) fibrillation (unknown) (no (unknown) (unknown) 5. Diabetes (units (un known) date) mellitus, type unknown) unclear (unknown) (no (unknown) (unknown) 6. Hypertension (units (unknown) date) unknown) (unknown) (no (unknown) (unknown) 7. Chronic pain (units (unknown) date) syndrome unknown) (unknown) (no (unknown) (unknown) 8. BPH (units (unkno wn) date) unknown) (unknown) (no (unknown) (unknown) 9. Anemia (units (unkn own) date) unknown) (unknown) (no (unknown) (unknown) ABD: Soft, NT/ND, (units (unknown) date) BT present in all unknown) 4 quadrants, no organomegaly or masses (unknown) (no (unknown) (unknown) ALT 58 H (units (unkno wn) date) unknown) (unknown) (no (unknown) (unknown) ALT (units (unkno wn) date) unknown) (unknown) (no (unknown) (unknown) AST 54 (units (unkno wn) date) unknown) (unknown) (no (unknown) (unknown) AST (units (unkno wn) date) unknown) (unknown) (no (unknown) (unknown) Age/Sex: 53 / M (units (unknown) date) unknown) (unknown) (no (unknown) (unknown) Albumin 3.2 L (units ( unknown) date) unknown) (unknown) (no (unknown) (unknown) Albumin (units (unkno wn) date) unknown) (unknown) (no (unknown) (unknown) Albumin/Globulin (units (unknown) date) Ratio 1.2 unknown) (unknown) (no (unknown) (unknown) Albumin/Globulin (units (unknown) date) Ratio unknown) (unknown) (no (unknown) (unknown) Alcohol (units (unkno wn) date) intoxication unknown) (unknown) (no (unknown) (unknown) Alkaline (units (unkno wn) date) Phosphatase 111 unknown) (unknown) (no (unknown) (unknown) Alkaline (units (unkno wn) date) Phosphatase unknown) (unknown) (no (unknown) (unknown) Assessment + Plan (units (unknown) date) narrative: unknown) (unknown) (no (unknown) (unknown) Assessment + Plan (units (unknown) date) unknown) (unknown) (no (unknown) (unknown) BPH (benign (units (un known) date) prostatic unknown) hyperplasia) (unknown) (no (unknown) (unknown) BUN 14 (units (unkno wn) date) unknown) (unknown) (no (unknown) (unknown) BUN (units (unkno wn) date) unknown) (unknown) (no (unknown) (unknown) BUN/Creatinine (units (unknown) date) Ratio 27.5 H unknown) (unknown) (no (unknown) (unknown) BUN/Creatinine (units (unknown) date) Ratio unknown) (unknown) (no (unknown) (unknown) Baso # (Auto) 100 (units (unknown) date) unknown) (unknown) (no (unknown) (unknown) Baso # (Auto) (units ( unknown) date) unknown) (unknown) (no (unknown) (unknown) Baso % (Auto) 1.5 (units (unknown) date) unknown) (unknown) (no (unknown) (unknown) Baso % (Auto) (units ( unknown) date) unknown) (unknown) (no (unknown) (unknown) Blood Pressure (units (unknown) date) 136/91 H 136/91 H unknown) 136/91 H (unknown) (no (unknown) (unknown) Blood Pressure (units (unknown) date) 141/80 H 149/89 H unknown) 144/87 H (unknown) (no (unknown) (unknown) CHEST: (units (unkno wn) date) Respiratory unknown) excursions symmetric, CTAB (unknown) (no (unknown) (unknown) CV: RRR, no M/R/G (units (unknown) date) unknown) (unknown) (no (unknown) (unknown) Calcium 8.4 (units (un known) date) unknown) (unknown) (no (unknown) (unknown) Calcium (units (unkno wn) date) unknown) (unknown) (no (unknown) (unknown) Carbon Dioxide 30 (units (unknown) date) unknown) (unknown) (no (unknown) (unknown) Carbon Dioxide (units (unknown) date) unknown) (unknown) (no (unknown) (unknown) Chloride 98 (units (un known) date) unknown) (unknown) (no (unknown) (unknown) Chloride (units (unkno wn) date) unknown) (unknown) (no (unknown) (unknown) Chronic low back (units (unknown) date) pain unknown) (unknown) (no (unknown) (unknown) Code status (units (un known) date) unknown) (unknown) (no (unknown) (unknown) Complains of (units (un known) date) continued unknown) headache, shakiness and nausea today. Some sensitivity to (unknown) (no (unknown) (unknown) Congestive heart (units (unknown) date) failure unknown) (unknown) (no (unknown) (unknown) Continue Flomax (units (unknown) date) unknown) (unknown) (no (unknown) (unknown) Creatinine 0.51 L (units (unknown) date) unknown) (unknown) (no (unknown) (unknown) Creatinine (units (unk nown) date) unknown) (unknown) (no (unknown) (unknown) : 1970 (units (unknown) date) Acct:[id number] unknown) (unknown) (no (unknown) (unknown) Date of Service: (units (unknown) date) 01/14/23 unknown) (unknown) (no (unknown) (unknown) Deep Vein (units (unkn own) date) Thrombosis/Pulmona unknown) ry Embolism Present on Admission: No (unknown) (no (unknown) (unknown) Disposition (units (un known) date) unknown) (unknown) (no (unknown) (unknown) Does have prior (units (unknown) date) history of DT, unknown) symptoms today are consistenth with withdrawal. (unknown) (no (unknown) (unknown) EXTR: warm, well (units (unknown) date) perfused, no unknown) C/C/E, scattered bruising noted to his arms, (unknown) (no (unknown) (unknown) Eos # (Auto) 100 (units (unknown) date) unknown) (unknown) (no (unknown) (unknown) Eos # (Auto) (units (u nknown) date) unknown) (unknown) (no (unknown) (unknown) Eos % (Auto) 3.5 (units (unknown) date) unknown) (unknown) (no (unknown) (unknown) Eos % (Auto) (units (u nknown) date) unknown) (unknown) (no (unknown) (unknown) Essential (units (unkn own) date) hypertension unknown) (unknown) (no (unknown) (unknown) Estim Average (units ( unknown) date) Glucose 237 unknown) (unknown) (no (unknown) (unknown) Estim Average (units ( unknown) date) Glucose unknown) (unknown) (no (unknown) (unknown) Estimated GFR > (units (unknown) date) 60 unknown) (unknown) (no (unknown) (unknown) Estimated GFR (units ( unknown) date) unknown) (unknown) (no (unknown) (unknown) Exam Narrative: (units (unknown) date) unknown) (unknown) (no (unknown) (unknown) Exam (units (unkno wn) date) unknown) (unknown) (no (unknown) (unknown) Family History (units (unknown) date) (Updated 01/15/23 unknown) @ 02:24 by SOMMER Chairez) (unknown) (no (unknown) (unknown) Father Diabetes (units (unknown) date) mellitus unknown) (unknown) (no (unknown) (unknown) Full (units (unkno wn) date) unknown) (unknown) (no (unknown) (unknown) GEN: Alert and (units (unknown) date) oriented x 3, no unknown) acute distress (unknown) (no (unknown) (unknown) Globulin 2.7 (units (u nknown) date) unknown) (unknown) (no (unknown) (unknown) Globulin (units (unkno wn) date) unknown) (unknown) (no (unknown) (unknown) Glucose 160 H (units ( unknown) date) unknown) (unknown) (no (unknown) (unknown) Glucose (units (unkno wn) date) unknown) (unknown) (no (unknown) (unknown) HEENT:NC, Face (units (unknown) date) symmetric unknown) (unknown) (no (unknown) (unknown) Hct 35.0 L (units (unk nown) date) unknown) (unknown) (no (unknown) (unknown) Hct (units (unkno wn) date) unknown) (unknown) (no (unknown) (unknown) Hgb 11.8 L (units (unk nown) date) unknown) (unknown) (no (unknown) (unknown) Hgb A1c (Ref Lab) (units (unknown) date) 9.9 H unknown) (unknown) (no (unknown) (unknown) Hgb A1c (Ref Lab) (units (unknown) date) unknown) (unknown) (no (unknown) (unknown) Hgb (units (unkno wn) date) unknown) (unknown) (no (unknown) (unknown) History of (units (unk nown) date) shoulder surgery unknown) (unknown) (no (unknown) (unknown) However, (units (unkno wn) date) echocardiogram unknown) ordered to assess for evidence of cardiomyopathy, (unknown) (no (unknown) (unknown) Hyperlipidemia (units (unknown) date) due to type 1 unknown) diabetes mellitus (unknown) (no (unknown) (unknown) Ideally discharge (units (unknown) date) to inpatient unknown) treatment, timing in a couple of days given (unknown) (no (unknown) (unknown) Interval history: (units (unknown) date) unknown) (unknown) (no (unknown) (unknown) [facility] (units (unknown) date) [address] unknown) [place] [address] (unknown) (no (unknown) (unknown) Laboratory (units (unk nown) date) Results - last 24 unknown) hr (unknown) (no (unknown) (unknown) Labs (units (unkno wn) date) unknown) (unknown) (no (unknown) (unknown) Labs: (units (unkno wn) date) unknown) (unknown) (no (unknown) (unknown) 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 LFTs are presently improving. (unknown) (no (unknown) (unknown) Lovenox ordered (units (unknown) date) unknown) (unknown) (no (unknown) (unknown) Lymph # (Auto) (units (unknown) date) 1600 unknown) (unknown) (no (unknown) (unknown) Lymph # (Auto) (units (unknown) date) unknown) (unknown) (no (unknown) (unknown) Lymph % (Auto) (units (unknown) date) 39.1 unknown) (unknown) (no (unknown) (unknown) Lymph % (Auto) (units (unknown) date) unknown) (unknown) (no (unknown) (unknown) MCH 32.6 (units (unkno wn) date) unknown) (unknown) (no (unknown) (unknown) MCH (units (unkno wn) date) unknown) (unknown) (no (unknown) (unknown) MCHC 33.7 (units (unkn own) date) unknown) (unknown) (no (unknown) (unknown) MCHC (units (unkno wn) date) unknown) (unknown) (no (unknown) (unknown) MCV 96.6 (units (unkno wn) date) unknown) (unknown) (no (unknown) (unknown) MCV (units (unkno wn) date) unknown) (unknown) (no (unknown) (unknown) Magnesium 1.4 L (units (unknown) date) unknown) (unknown) (no (unknown) (unknown) Magnesium (units (unkn own) date) unknown) (unknown) (no (unknown) (unknown) Medical History (units (unknown) date) (Reviewed 01/15/23 unknown) @ 02:22 by SOMMER Chairez) (unknown) (no (unknown) (unknown) Pender # (Auto) 300 (units (unknown) date) unknown) (unknown) (no (unknown) (unknown) Pender # (Auto) (units ( unknown) date) unknown) (unknown) (no (unknown) (unknown) Pender % (Auto) 8.3 (units (unknown) date) unknown) (unknown) (no (unknown) (unknown) Pender % (Auto) (units ( unknown) date) unknown) (unknown) (no (unknown) (unknown) Mother (units (unknown) date) Diabetes mellitus unknown) (unknown) (no (unknown) (unknown) Multiple falls (units (unknown) date) unknown) (unknown) (no (unknown) (unknown) NEURO: Alert and (units (unknown) date) oriented x 3, unknown) nonfocal but + tongue fasciculations and (unknown) (no (unknown) (unknown) Narrative (units (unkn own) date) unknown) (unknown) (no (unknown) (unknown) Neut # (Auto) (units ( unknown) date) 1900 unknown) (unknown) (no (unknown) (unknown) Neut # (Auto) (units ( unknown) date) unknown) (unknown) (no (unknown) (unknown) Neut % (Auto) (units ( unknown) date) 47.6 L unknown) (unknown) (no (unknown) (unknown) Neut % (Auto) (units ( unknown) date) unknown) (unknown) (no (unknown) (unknown) Normocytic. 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 (unknown) (no (unknown) (unknown) Objective (units (unkn own) date) unknown) (unknown) (no (unknown) (unknown) Oxygen Delivery (units (unknown) date) Method Room Air unknown) (unknown) (no (unknown) (unknown) Oxygen Flow Rate (units (unknown) date) 0 unknown) (unknown) (no (unknown) (unknown) PFSH (units (unkno wn) date) unknown) (unknown) (no (unknown) (unknown) Patient continues (units (unknown) date) on Lantus and unknown) sliding scale. Certainly he could have insulin (unknown) (no (unknown) (unknown) Patient has a (units ( unknown) date) healing laceration unknown) to his right forehead, bruises to his arms, as (unknown) (no (unknown) (unknown) Patient has a (units (u nknown) date) spinal stimulator unknown) in place as well as an intrathecal hydromorphone (unknown) (no (unknown) (unknown) Patient has had (units (unknown) date) multiple prior unknown) attempts from what his brother told me. No plan (unknown) (no (unknown) (unknown) Patient is on (units ( unknown) date) lisinopril and unknown) propranolol. He did develop some hypotension (unknown) (no (unknown) (unknown) Patient was noted (units (unknown) date) to have an episode unknown) of AFib in the emergency department for (unknown) (no (unknown) (unknown) Patient: (units (unkno wn) date) Octavio Romo unknown) MR#: [id number] (unknown) (no (unknown) (unknown) Plt Count 306 (units ( unknown) date) unknown) (unknown) (no (unknown) (unknown) Plt Count (units (unkn own) date) unknown) (unknown) (no (unknown) (unknown) Potassium 3.9 (units ( unknown) date) unknown) (unknown) (no (unknown) (unknown) Potassium (units (unkn own) date) unknown) (unknown) (no (unknown) (unknown) Progress Note (units ( unknown) date) unknown) (unknown) (no (unknown) (unknown) Prophylaxis (units (un known) date) unknown) (unknown) (no (unknown) (unknown) Provider: (units (unkn own) date) Terry Gomez unknown) D.O. (unknown) (no (unknown) (unknown) Pulse Oximetry 94 (units (unknown) date) unknown) (unknown) (no (unknown) (unknown) Pulse Oximetry 96 (units (unknown) date) unknown) (unknown) (no (unknown) (unknown) Pulse Rate 50 L (units (unknown) date) 69 unknown) (unknown) (no (unknown) (unknown) Pulse Rate 51 L (units (unknown) date) 51 L 52 L unknown) (unknown) (no (unknown) (unknown) Quality (units (unkno wn) date) unknown) (unknown) (no (unknown) (unknown) RBC 3.62 L (units (unk nown) date) unknown) (unknown) (no (unknown) (unknown) RBC (units (unkno wn) date) unknown) (unknown) (no (unknown) (unknown) RDW 13.4 (units (unkno wn) date) unknown) (unknown) (no (unknown) (unknown) RDW (units (unkno wn) date) unknown) (unknown) (no (unknown) (unknown) Respiratory Rate (units (unknown) date) 16 16 unknown) (unknown) (no (unknown) (unknown) Respiratory Rate (units (unknown) date) 18 16 16 unknown) (unknown) (no (unknown) (unknown) SKIN: warm and (units ( unknown) date) dry, no rash, unknown) large dark bruise noted round his gluteal folds and (unknown) (no (unknown) (unknown) Signed (units (unkno wn) date) By:<Electronically unknown) signed by Terry Gomez D.O.> (unknown) (no (unknown) (unknown) Smoking Status: (units (unknown) date) Never smoker unknown) (unknown) (no (unknown) (unknown) Social History (units (unknown) date) (Updated 01/15/23 unknown) @ 02:23 by DOUG Chairez) (unknown) (no (unknown) (unknown) Sodium 133 L (units (u nknown) date) unknown) (unknown) (no (unknown) (unknown) Sodium is 133 (units ( unknown) date) today. Will unknown) monitor. (unknown) (no (unknown) (unknown) Sodium (units (unkno wn) date) unknown) (unknown) (no (unknown) (unknown) Subjective (units (unk nown) date) unknown) (unknown) (no (unknown) (unknown) Surgical History (units (unknown) date) (Reviewed 01/15/23 unknown) @ 02:22 by DOUG Chairez) (unknown) (no (unknown) (unknown) Temperature 97.1 (units (unknown) date) F L unknown) (unknown) (no (unknown) (unknown) Temperature 97.8 (units (unknown) date) F unknown) (unknown) (no (unknown) (unknown) Total Bilirubin (units (unknown) date) 0.5 unknown) (unknown) (no (unknown) (unknown) Total Bilirubin (units (unknown) date) unknown) (unknown) (no (unknown) (unknown) Total Protein 5.9 (units (unknown) date) L unknown) (unknown) (no (unknown) (unknown) Total Protein (units ( unknown) date) unknown) (unknown) (no (unknown) (unknown) VTE (units (unkno wn) date) unknown) (unknown) (no (unknown) (unknown) Vital Signs (units (un known) date) unknown) (unknown) (no (unknown) (unknown) WBC 4.1 L (units (unkn own) date) unknown) (unknown) (no (unknown) (unknown) WBC (units (unkno wn) date) unknown) (unknown) (no (unknown) (unknown) Will monitor. (units ( unknown) date) unknown) (unknown) (no (unknown) (unknown) [Embedded Image (units (unknown) date) Not Available] unknown) (unknown) (no (unknown) (unknown) a bit worse he (units (unknown) date) feels. unknown) (unknown) (no (unknown) (unknown) alcohol intake: (units (unknown) date) current unknown) (unknown) (no (unknown) (unknown) alone. 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 PT and OT ordered, will (unknown) (no (unknown) (unknown) at this time but (units (unknown) date) he notes he does unknown) not feel safe at home. Would likely benefit (unknown) (no (unknown) (unknown) attempted librium (units (unknown) date) yesterday unknown) previously but BP dipped, okay with 10 mg TID (unknown) (no (unknown) (unknown) candidate for (units ( unknown) date) anticoagulation unknown) due to his alcohol dependence and frequent falls. (unknown) (no (unknown) (unknown) continue CIWA (units ( unknown) date) protocol with prn unknown) benzos. (unknown) (no (unknown) (unknown) continue prn (units (u nknown) date) repletion unknown) (unknown) (no (unknown) (unknown) continued (units (unkn own) date) withdrawal unknown) symptoms, appreciate care management assistance in (unknown) (no (unknown) (unknown) couple of weeks (units (unknown) date) for refill. unknown) (unknown) (no (unknown) (unknown) dependence. 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 (unknown) (no (unknown) (unknown) from a program (units (unknown) date) that does dual unknown) diagnosis. GEOLOGY INSTRUCTOR met with the patient today and (unknown) (no (unknown) (unknown) household (units (unkn own) date) members: none unknown) (unknown) (no (unknown) (unknown) information with (units (unknown) date) regard to his unknown) diabetes in the medical record. We will continue (unknown) (no (unknown) (unknown) inpatient (units (unkn own) date) transfer but unknown) remain uncertain if this is feasible. He is being (unknown) (no (unknown) (unknown) light. Denies (units (u nknown) date) history of unknown) migraines. No other focal findings on exam. Tremors are (unknown) (no (unknown) (unknown) placement. (units (unk nown) date) unknown) (unknown) (no (unknown) (unknown) pump. He reports (units (unknown) date) the pump was unknown) filled every 2 months and he is not due for a (unknown) (no (unknown) (unknown) referred to (units (un known) date) different unknown) facilities by care management. (unknown) (no (unknown) (unknown) right forearm. (units (unknown) date) These all have unknown) occurred when he has been intoxicated and home (unknown) (no (unknown) (unknown) sacrum (units (unkno wn) date) unknown) (unknown) (no (unknown) (unknown) see today. (units (unk nown) date) unknown) (unknown) (no (unknown) (unknown) superficial lee (units (unknown) date) noted to his right unknown) forearm (unknown) (no (unknown) (unknown) today. (units (unkno wn) date) Hypotension may unknown) have been from metoprolol in the ER as well for RVR. (unknown) (no (unknown) (unknown) tremulousness. (units (unknown) date) unknown) (unknown) (no (unknown) (unknown) valvular disease (units (unknown) date) LV dysfunction. unknown) (unknown) (no (unknown) (unknown) well as his (units (un known) date) gluteal unknown) area/sacrum. He also has some superficial lee to his (unknown) (no (unknown) (unknown) which he was (units (u nknown) date) given a dose of unknown) metoprolol. CHADS2 Vasc score is 2, consistent (unknown) (no (unknown) (unknown) will work on (units (u nknown) date) possible unknown) resources. He would benefit most from inpatient to (unknown) (no (unknown) (unknown) with a 2.2% (units (un known) date) stroke risk unknown) annually. Unfortunately, he would be a very poor (unknown) (no (unknown) (unknown) yesterday, will (units (unknown) date) increase back to unknown) 25 TID today given reported worsening tremor (unknown) (no (unknown) (unknown) yesterday, with (units (unknown) date) librium noted unknown) above will continue to hold today. Result panel 265 (unknown) (no (unknown) (unknown) (no value) (units (unk nown) date) unknown) (unknown) (no (unknown) (unknown) (past 8 hours): (units (unknown) date) unknown) (unknown) (no (unknown) (unknown) - okay to stop (units (unknown) date) tele today. unknown) (unknown) (no (unknown) (unknown) - repleted with (units (unknown) date) IV, may be unknown) contributing to weakness. (unknown) (no (unknown) (unknown) [id number] (units (unkno wn) date) unknown) (unknown) (no (unknown) (unknown) 01/17/23 05:25 (units (unknown) date) unknown) (unknown) (no (unknown) (unknown) 01/18/23 1520 (units ( unknown) date) unknown) (unknown) (no (unknown) (unknown) 01/18/23 (units (unkno wn) date) unknown) (unknown) (no (unknown) (unknown) 08:00 04/12/23 (units (unknown) date) unknown) (unknown) (no (unknown) (unknown) 08:33 (units (unkno wn) date) unknown) (unknown) (no (unknown) (unknown) 1. Alcohol (units (unk nown) date) dependence with unknown) withdrawal (unknown) (no (unknown) (unknown) 10. Hyponatremia (units (unknown) date) unknown) (unknown) (no (unknown) (unknown) 11. (units (unkno wn) date) Hypomagnesemia unknown) (unknown) (no (unknown) (unknown) 12. Transaminitis (units (unknown) date) unknown) (unknown) (no (unknown) (unknown) 13. (units (unkno wn) date) hypomagnesemia unknown) (unknown) (no (unknown) (unknown) 2. Suicidal (units (un known) date) ideation unknown) (unknown) (no (unknown) (unknown) 3. Multiple falls (units (unknown) date) secondary to gait unknown) instability (unknown) (no (unknown) (unknown) 4. Paroxysmal (units ( unknown) date) atrial unknown) fibrillation (unknown) (no (unknown) (unknown) 5. Diabetes (units (un known) date) mellitus, type unknown) unclear (unknown) (no (unknown) (unknown) 6. Hypertension (units (unknown) date) unknown) (unknown) (no (unknown) (unknown) 7. Chronic pain (units (unknown) date) syndrome unknown) (unknown) (no (unknown) (unknown) 8. BPH (units (unkno wn) date) unknown) (unknown) (no (unknown) (unknown) 9. Anemia (units (unkn own) date) unknown) (unknown) (no (unknown) (unknown) ABD: Soft, NT/ND, (units (unknown) date) BT present in all unknown) 4 quadrants, no organomegaly or masses (unknown) (no (unknown) (unknown) Age/Sex: 53 / M (units (unknown) date) unknown) (unknown) (no (unknown) (unknown) Alcohol (units (unkno wn) date) intoxication unknown) (unknown) (no (unknown) (unknown) Assessment + Plan (units (unknown) date) narrative: unknown) (unknown) (no (unknown) (unknown) Assessment + Plan (units (unknown) date) unknown) (unknown) (no (unknown) (unknown) BPH (benign (units (un known) date) prostatic unknown) hyperplasia) (unknown) (no (unknown) (unknown) Blood Pressure (units (unknown) date) 127/95 H 127/95 H unknown) (unknown) (no (unknown) (unknown) CHEST: (units (unkno wn) date) Respiratory unknown) excursions symmetric, CTAB (unknown) (no (unknown) (unknown) CV: RRR, no M/R/G (units (unknown) date) unknown) (unknown) (no (unknown) (unknown) Chronic low back (units (unknown) date) pain unknown) (unknown) (no (unknown) (unknown) Code status (units (un known) date) unknown) (unknown) (no (unknown) (unknown) Complains of (units (u nknown) date) continued unknown) headache, shakiness and nausea today though slight (unknown) (no (unknown) (unknown) Congestive heart (units (unknown) date) failure unknown) (unknown) (no (unknown) (unknown) Continue Flomax (units (unknown) date) unknown) (unknown) (no (unknown) (unknown) : 1970 (units (unknown) date) Acct:[id number] unknown) (unknown) (no (unknown) (unknown) Date of Service: (units (unknown) date) 01/14/23 unknown) (unknown) (no (unknown) (unknown) Deep Vein (units (unkn own) date) Thrombosis/Pulmona unknown) ry Embolism Present on Admission: No (unknown) (no (unknown) (unknown) Disposition (units (un known) date) unknown) (unknown) (no (unknown) (unknown) Does have prior (units (unknown) date) history of DT, unknown) symptoms today are consistent with withdrawal (unknown) (no (unknown) (unknown) EXTR: warm, well (units (unknown) date) perfused, no unknown) C/C/E, scattered bruising noted to his arms, (unknown) (no (unknown) (unknown) Essential (units (unkn own) date) hypertension unknown) (unknown) (no (unknown) (unknown) Exam Narrative: (units (unknown) date) unknown) (unknown) (no (unknown) (unknown) Exam (units (unkno wn) date) unknown) (unknown) (no (unknown) (unknown) Family History (units (unknown) date) (Updated 01/15/23 unknown) @ 02:24 by [facility]) (unknown) (no (unknown) (unknown) Father Diabetes (units (unknown) date) mellitus unknown) (unknown) (no (unknown) (unknown) Full (units (unkno wn) date) unknown) (unknown) (no (unknown) (unknown) GEN: Alert and (units (unknown) date) oriented x 3, no unknown) acute distress (unknown) (no (unknown) (unknown) HEENT:NC, Face (units (unknown) date) symmetric unknown) (unknown) (no (unknown) (unknown) History of (units (unk nown) date) shoulder surgery unknown) (unknown) (no (unknown) (unknown) Hyperlipidemia (units (unknown) date) due to type 1 unknown) diabetes mellitus (unknown) (no (unknown) (unknown) Ideally discharge (units (unknown) date) to inpatient unknown) treatment, though this is unlikely. 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 LFTs are presently improving. (unknown) (no (unknown) (unknown) Lovenox ordered (units (unknown) date) unknown) (unknown) (no (unknown) (unknown) Medical History (units (unknown) date) (Reviewed 01/15/23 unknown) @ 02:22 by SOMMER Chairez) (unknown) (no (unknown) (unknown) Mild, Will (units (unk nown) date) monitor. unknown) (unknown) (no (unknown) (unknown) Mother (units (unknown) date) Diabetes mellitus unknown) (unknown) (no (unknown) (unknown) Multiple falls (units (unknown) date) unknown) (unknown) (no (unknown) (unknown) NEURO: Alert and (units (unknown) date) oriented x 3, unknown) nonfocal but + tongue fasciculations and (unknown) (no (unknown) (unknown) Narrative (units (unkn own) date) unknown) (unknown) (no (unknown) (unknown) Normocytic. 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 (unknown) (no (unknown) (unknown) Objective (units (unkn own) date) unknown) (unknown) (no (unknown) (unknown) Oxygen Delivery (units (unknown) date) Method Room Air unknown) (unknown) (no (unknown) (unknown) Oxygen Flow Rate (units (unknown) date) 0 unknown) (unknown) (no (unknown) (unknown) PFSH (units (unkno wn) date) unknown) (unknown) (no (unknown) (unknown) Patient continues (units (unknown) date) on Lantus and unknown) sliding scale. Certainly he could have insulin (unknown) (no (unknown) (unknown) Patient has a (units ( unknown) date) healing laceration unknown) to his right forehead, bruises to his arms, as (unknown) (no (unknown) (unknown) Patient has a (units (u nknown) date) spinal stimulator unknown) in place as well as an intrathecal hydromorphone (unknown) (no (unknown) (unknown) Patient has had (units (unknown) date) multiple prior unknown) attempts from what his brother told me. No plan (unknown) (no (unknown) (unknown) Patient is on (units ( unknown) date) lisinopril and unknown) propranolol. He did develop some hypotension (unknown) (no (unknown) (unknown) Patient was noted (units (unknown) date) to have an episode unknown) of AFib in the emergency department for (unknown) (no (unknown) (unknown) Patient: (units (unkno wn) date) Octavio Romo Glenny unknown) MR#: [id number] (unknown) (no (unknown) (unknown) Progress Note (units ( unknown) date) unknown) (unknown) (no (unknown) (unknown) Prophylaxis (units (un known) date) unknown) (unknown) (no (unknown) (unknown) Provider: (units (unkn own) date) Terry Gomez unknown) D.O. (unknown) (no (unknown) (unknown) Pulse Oximetry 97 (units (unknown) date) unknown) (unknown) (no (unknown) (unknown) Pulse Rate 69 (units ( unknown) date) unknown) (unknown) (no (unknown) (unknown) Quality (units (unkno wn) date) unknown) (unknown) (no (unknown) (unknown) Respiratory Rate (units (unknown) date) 16 unknown) (unknown) (no (unknown) (unknown) SKIN: warm and (units ( unknown) date) dry, no rash, unknown) large dark bruise noted round his gluteal folds and (unknown) (no (unknown) (unknown) Signed (units (unkno wn) date) By:<Electronically unknown) signed by Terry Gomez D.O.> (unknown) (no (unknown) (unknown) Smoking Status: (units (unknown) date) Never smoker unknown) (unknown) (no (unknown) (unknown) Social History (units (unknown) date) (Updated 01/15/23 unknown) @ 02:23 by DOUG Chairez) (unknown) (no (unknown) (unknown) Subjective (units (unk nown) date) unknown) (unknown) (no (unknown) (unknown) Surgical History (units (unknown) date) (Reviewed 01/15/23 unknown) @ 02:22 by DOUG Chairez) (unknown) (no (unknown) (unknown) Temperature 97.5 (units (unknown) date) F L unknown) (unknown) (no (unknown) (unknown) VTE (units (unkno wn) date) unknown) (unknown) (no (unknown) (unknown) Vital Signs (units (un known) date) unknown) (unknown) (no (unknown) (unknown) Will monitor. (units ( unknown) date) unknown) (unknown) (no (unknown) (unknown) [Embedded Image (units (unknown) date) Not Available] unknown) (unknown) (no (unknown) (unknown) alcohol intake: (units (unknown) date) current unknown) (unknown) (no (unknown) (unknown) alone. 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 PT and OT ordered, will (unknown) (no (unknown) (unknown) and this has not (units (unknown) date) recurred. TTE was unknown) unremarkable. (unknown) (no (unknown) (unknown) at this time but (units (unknown) date) he notes he does unknown) not feel safe at home. Would likely benefit (unknown) (no (unknown) (unknown) attempted librium (units (unknown) date) previously but BP unknown) dipped, but may have been due to medications (unknown) (no (unknown) (unknown) candidate for (units ( unknown) date) anticoagulation unknown) due to his alcohol dependence and frequent falls (unknown) (no (unknown) (unknown) continue CIWA (units ( unknown) date) protocol with prn unknown) benzos. (unknown) (no (unknown) (unknown) continue prn (units (u nknown) date) repletion unknown) (unknown) (no (unknown) (unknown) couple of weeks (units (unknown) date) for refill. unknown) (unknown) (no (unknown) (unknown) dependence. A bit (units (unknown) date) unclear on when he unknown) was diagnosed and there is not any (unknown) (no (unknown) (unknown) dependent (units (unkn own) date) diabetes secondary unknown) to pancreatic insufficiency related to his alcohol (unknown) (no (unknown) (unknown) discharge home (units (unknown) date) once withdrawal unknown) symptoms are improved. (unknown) (no (unknown) (unknown) fingersticks, (units ( unknown) date) sliding scale, and unknown) Lantus. (unknown) (no (unknown) (unknown) for RVR. Now (units (u nknown) date) increased back to unknown) 25 TID. With shakiness thought of increasing but (unknown) (no (unknown) (unknown) from a program (units (unknown) date) that does dual unknown) diagnosis. GEOLOGY INSTRUCTOR met with the patient today and (unknown) (no (unknown) (unknown) household (units (unkn own) date) members: none unknown) (unknown) (no (unknown) (unknown) improvement. (units (u nknown) date) Continues to have unknown) tremors and difficulty with ambulation. (unknown) (no (unknown) (unknown) information with (units (unknown) date) regard to his unknown) diabetes in the medical record. We will continue (unknown) (no (unknown) (unknown) inpatient (units (unkn own) date) transfer but this unknown) is hightly unlikely despite patient and care (unknown) (no (unknown) (unknown) management (units (unk nown) date) searching multiple unknown) facilities. Complicated due to patient's chronic (unknown) (no (unknown) (unknown) medical (units (unkno wn) date) conditions unknown) including stimulator and hydromorphone pump. (unknown) (no (unknown) (unknown) pump. He reports (units (unknown) date) the pump was unknown) filled every 2 months and he is not due for a (unknown) (no (unknown) (unknown) right forearm. (units (unknown) date) These all have unknown) occurred when he has been intoxicated and home (unknown) (no (unknown) (unknown) sacrum (units (unkno wn) date) unknown) (unknown) (no (unknown) (unknown) see today. (units (unk nown) date) unknown) (unknown) (no (unknown) (unknown) still. (units (unkno wn) date) unknown) (unknown) (no (unknown) (unknown) superficial lee (units (unknown) date) noted to his right unknown) forearm (unknown) (no (unknown) (unknown) symptoms are (units (u nknown) date) still fairly mild unknown) and will keep same dose today. (unknown) (no (unknown) (unknown) tremulousness. (units (unknown) date) unknown) (unknown) (no (unknown) (unknown) well as his (units (un known) date) gluteal unknown) area/sacrum. He also has some superficial lee to his (unknown) (no (unknown) (unknown) which he was (units (u nknown) date) given a dose of unknown) metoprolol. CHADS2 Vasc score is 2, consistent (unknown) (no (unknown) (unknown) will work on (units (u nknown) date) possible unknown) resources. He would benefit most from inpatient to (unknown) (no (unknown) (unknown) with a 2.2% (units (un known) date) stroke risk unknown) annually. Unfortunately, he would be a very poor (unknown) (no (unknown) (unknown) yesterday, with (units (unknown) date) librium noted unknown) above will continue to hold today. Result panel 266 (unknown) (no date) (unknown) (unknown) 0 /ul (unkn own) (unknown) (no date) (unknown) (unknown) 1.0 % (unkn own) (unknown) (no date) (unknown) (unknown) 12.1 g/dl (unkn own) (unknown) (no date) (unknown) (unknown) 13.4 % (unkn own) (unknown) (no date) (unknown) (unknown) 1500 /ul (unkn own) (unknown) (no date) (unknown) (unknown) 2700 /ul (unkn own) (unknown) (no date) (unknown) (unknown) 3.73 x10 6/ul (unkn own) (unknown) (no date) (unknown) (unknown) 30.8 % (unkn own) (unknown) (no date) (unknown) (unknown) 300 /ul (unkn own) (unknown) (no date) (unknown) (unknown) 32.5 pg (unkn own) (unknown) (no date) (unknown) (unknown) 321 x10 3/ul (unkn own) (unknown) (no date) (unknown) (unknown) 33.6 % (unkn own) (unknown) (no date) (unknown) (unknown) 36.0 % (unkn own) (unknown) (no date) (unknown) (unknown) 4.9 x10 3/ul (unkn own) (unknown) (no date) (unknown) (unknown) 400 /ul (unkn own) (unknown) (no date) (unknown) (unknown) 5.2 % (unkn own) (unknown) (no date) (unknown) (unknown) 55.3 % (unkn own) (unknown) (no date) (unknown) (unknown) 7.7 % (unkn own) (unknown) (no date) (unknown) (unknown) 96.6 fl (unkn own) Result panel 267 (unknown) (no date) (unknown) (unknown) > 60 ml/min (unkn own) (unknown) (no date) (unknown) (unknown) > 60 ml/min (unkn own) (unknown) (no date) (unknown) (unknown) 0.60 mg/dl (unkn own) (unknown) (no date) (unknown) (unknown) 1.4 mg/dl (unkn own) (unknown) (no date) (unknown) (unknown) 100 mmol/l (unkn own) (unknown) (no date) (unknown) (unknown) 12 mg/dl (unkn own) (unknown) (no date) (unknown) (unknown) 137 mmol/l (unkn own) (unknown) (no date) (unknown) (unknown) 139 mg/dl (unkn own) (unknown) (no date) (unknown) (unknown) 139 mg/dl (unkn own) (unknown) (no date) (unknown) (unknown) 20.0 (units unknown) (unknown) (unknown) (no date) (unknown) (unknown) 29 mmol/l (unkn own) (unknown) (no date) (unknown) (unknown) 3.9 mmol/l (unkn own) (unknown) (no date) (unknown) (unknown) 8.8 mg/dl (unkn own) Result panel 268 (unknown) (no (unknown) (unknown) (no value) (units (unk nown) date) unknown) (unknown) (no (unknown) (unknown) (past 8 hours): (units (unknown) date) unknown) (unknown) (no (unknown) (unknown) - okay to stop (units (unknown) date) tele today. unknown) (unknown) (no (unknown) (unknown) 0.4 mg PO DAILY (units (unknown) date) unknown) (unknown) (no (unknown) (unknown) [id number] (units (unkno wn) date) unknown) (unknown) (no (unknown) (unknown) 03:30 01/19/23 (units (unknown) date) unknown) (unknown) (no (unknown) (unknown) 03:33 01/19/23 (units (unknown) date) unknown) (unknown) (no (unknown) (unknown) 01/14/23 22:12 (units (unknown) date) unknown) (unknown) (no (unknown) (unknown) 01/14/23 22:26 (units (unknown) date) unknown) (unknown) (no (unknown) (unknown) 01/14/23 22:37 (units (unknown) date) unknown) (unknown) (no (unknown) (unknown) 01/14/23 22:38 (units (unknown) date) unknown) (unknown) (no (unknown) (unknown) 01/15/23 18:02 (units (unknown) date) unknown) (unknown) (no (unknown) (unknown) 01/16/23 12:41 (units (unknown) date) unknown) (unknown) (no (unknown) (unknown) 01/16/23 14:55 (units (unknown) date) unknown) (unknown) (no (unknown) (unknown) 01/19/23 01/19/23 (units (unknown) date) unknown) (unknown) (no (unknown) (unknown) 01/19/23 06:23 (units (unknown) date) unknown) (unknown) (no (unknown) (unknown) 01/19/23 (units (unkno wn) date) unknown) (unknown) (no (unknown) (unknown) 06:23 06:23 (units (un known) date) unknown) (unknown) (no (unknown) (unknown) 07:00 (units (unkno wn) date) unknown) (unknown) (no (unknown) (unknown) 08:42 (units (unkno wn) date) unknown) (unknown) (no (unknown) (unknown) 1. Alcohol (units (unk nown) date) dependence with unknown) withdrawal (unknown) (no (unknown) (unknown) 10. Hyponatremia (units (unknown) date) unknown) (unknown) (no (unknown) (unknown) 100 mg PO DAILY (units (unknown) date) unknown) (unknown) (no (unknown) (unknown) 11. Hypomagnesemia (units (unknown) date) unknown) (unknown) (no (unknown) (unknown) 12. Transaminitis (units (unknown) date) unknown) (unknown) (no (unknown) (unknown) 13. hypomagnesemia (units (unknown) date) unknown) (unknown) (no (unknown) (unknown) 2. Suicidal (units (un known) date) ideation unknown) (unknown) (no (unknown) (unknown) 20 mg PO BID (units (u nknown) date) unknown) (unknown) (no (unknown) (unknown) 20 mg PO DAILY (units (unknown) date) unknown) (unknown) (no (unknown) (unknown) 20 unit SUBCUT (units (unknown) date) BEDTIME unknown) (unknown) (no (unknown) (unknown) 25 mg orally three (units (unknown) date) times daily for 2 unknown) days, then 25mg twice daily for 2 days, (unknown) (no (unknown) (unknown) 3. Multiple falls (units (unknown) date) secondary to gait unknown) instability (unknown) (no (unknown) (unknown) 4. Paroxysmal (units ( unknown) date) atrial fibrillation unknown) (unknown) (no (unknown) (unknown) 40 mg PO BEDTIME (units (unknown) date) unknown) (unknown) (no (unknown) (unknown) 5. Diabetes (units (un known) date) mellitus, type unknown) unclear (unknown) (no (unknown) (unknown) 6. Hypertension (units (unknown) date) unknown) (unknown) (no (unknown) (unknown) 7. Chronic pain (units (unknown) date) syndrome unknown) (unknown) (no (unknown) (unknown) 8. BPH (units (unkno wn) date) unknown) (unknown) (no (unknown) (unknown) 9. Anemia (units (unkn own) date) unknown) (unknown) (no (unknown) (unknown) ?- repleted with (units (unknown) date) IV, may be unknown) contributing to weakness. (unknown) (no (unknown) (unknown) ABD: Soft, NT/ND, (units (unknown) date) BT present in all 4 unknown) quadrants, no organomegaly or masses (unknown) (no (unknown) (unknown) ADMINISTER 2 TO 10 (units (unknown) date) UNITS UNDER THE unknown) SKIN BEFORE MEALS AND AT BEDTIME (unknown) (no (unknown) (unknown) ADMINISTER 20 (units ( unknown) date) UNITS UNDER THE unknown) SKIN EVERY EVENING (unknown) (no (unknown) (unknown) Age/Sex: 53 / M (units (unknown) date) unknown) (unknown) (no (unknown) (unknown) Alcohol (units (unkno wn) date) intoxication unknown) (unknown) (no (unknown) (unknown) BPH (benign (units (un known) date) prostatic unknown) hyperplasia) (unknown) (no (unknown) (unknown) BUN 12 (units (unkno wn) date) unknown) (unknown) (no (unknown) (unknown) BUN/Creatinine (units (unknown) date) Ratio 20.0 unknown) (unknown) (no (unknown) (unknown) Baso # (Auto) 0 (units (unknown) date) unknown) (unknown) (no (unknown) (unknown) Baso % (Auto) 1.0 (units (unknown) date) unknown) (unknown) (no (unknown) (unknown) Behavioral Health (units (unknown) date) Assess unknown) (unknown) (no (unknown) (unknown) Blood Pressure (units (unknown) date) 127/74 127/74 unknown) 127/85 (unknown) (no (unknown) (unknown) Blood Pressure (units (unknown) date) 127/85 unknown) (unknown) (no (unknown) (unknown) CHEST: Respiratory (units (unknown) date) excursions unknown) symmetric, CTAB (unknown) (no (unknown) (unknown) CV: RRR, no M/R/G (units (unknown) date) unknown) (unknown) (no (unknown) (unknown) Calcium 8.8 (units (un known) date) unknown) (unknown) (no (unknown) (unknown) Carbon Dioxide 29 (units (unknown) date) unknown) (unknown) (no (unknown) (unknown) Chief complaint: (units (unknown) date) Trauma unknown) (unknown) (no (unknown) (unknown) Chloride 100 (units (u nknown) date) unknown) (unknown) (no (unknown) (unknown) Chronic low back (units (unknown) date) pain unknown) (unknown) (no (unknown) (unknown) Comment: ETOH (units ( unknown) date) Abuse, SI unknown) (unknown) (no (unknown) (unknown) Comment: Wound (units (unknown) date) care unknown) (unknown) (no (unknown) (unknown) Comment: (units (unkno wn) date) unknown) (unknown) (no (unknown) (unknown) Congestive heart (units (unknown) date) failure unknown) (unknown) (no (unknown) (unknown) Consult to (units (unk nown) date) Dietitian, Adult unknown) Routine (unknown) (no (unknown) (unknown) Consult to Home (units (unknown) date) Health Routine unknown) (unknown) (no (unknown) (unknown) 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 - (units (unknown) date) 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 unknown) Routine (unknown) (no (unknown) (unknown) Consult to (units (unk nown) date) Occupational unknown) Therapy Evaluate + Treat (unknown) (no (unknown) (unknown) Consult to (units (unk nown) date) Physical Therapy unknown) Evaluate + Treat (unknown) (no (unknown) (unknown) Consults: (units (unkn own) date) unknown) (unknown) (no (unknown) (unknown) Continue Flomax (units (unknown) date) unknown) (unknown) (no (unknown) (unknown) Continued (units (unkn own) date) unknown) (unknown) (no (unknown) (unknown) Creatinine 0.60 L (units (unknown) date) unknown) (unknown) (no (unknown) (unknown) : 1970 (units (unknown) date) Acct:[id number] unknown) (unknown) (no (unknown) (unknown) Date Patient Seen: (units (unknown) date) 01/14/23 unknown) (unknown) (no (unknown) (unknown) Date of Service: (units (unknown) date) 01/14/23 unknown) (unknown) (no (unknown) (unknown) Date of admission: (units (unknown) date) unknown) (unknown) (no (unknown) (unknown) Deep Vein (units (unkn own) date) Thrombosis/Pulmonar unknown) y Embolism Present on Admission: No (unknown) (no (unknown) (unknown) Discharge Date: (units (unknown) date) 01/19/23 unknown) (unknown) (no (unknown) (unknown) Discharge (units (unkn own) date) Diagnosis: unknown) (unknown) (no (unknown) (unknown) Discharge Plan (units (unknown) date) unknown) (unknown) (no (unknown) (unknown) Discharge (units (unkn own) date) Providers unknown) (unknown) (no (unknown) (unknown) Discharge Summary (units (unknown) date) unknown) (unknown) (no (unknown) (unknown) Discharge orders + (units (unknown) date) Medications unknown) (unknown) (no (unknown) (unknown) Discharge (units (unkn own) date) provider: unknown) (unknown) (no (unknown) (unknown) Does have prior (units (unknown) date) history of DT, unknown) symptoms today are consistent with withdrawal (unknown) (no (unknown) (unknown) EXTR: warm, well (units (unknown) date) perfused, no C/C/E, unknown) scattered bruising noted to his arms, (unknown) (no (unknown) (unknown) Eos # (Auto) 300 (units (unknown) date) unknown) (unknown) (no (unknown) (unknown) Eos % (Auto) 5.2 H (units (unknown) date) unknown) (unknown) (no (unknown) (unknown) Essential (units (unkn own) date) hypertension unknown) (unknown) (no (unknown) (unknown) Estimated GFR > 60 (units (unknown) date) unknown) (unknown) (no (unknown) (unknown) Exam Narrative: (units (unknown) date) unknown) (unknown) (no (unknown) (unknown) Exam (units (unkno wn) date) unknown) (unknown) (no (unknown) (unknown) Family History (units (unknown) date) (Updated 01/15/23 @ unknown) 02:24 by Genesis Dunn [facility]) (unknown) (no (unknown) (unknown) Father Diabetes (units (unknown) date) mellitus unknown) (unknown) (no (unknown) (unknown) GEN: Alert and (units (unknown) date) oriented x 3, no unknown) acute distress (unknown) (no (unknown) (unknown) Glucose 139 H (units ( unknown) date) unknown) (unknown) (no (unknown) (unknown) HEENT:NC, Face (units (unknown) date) symmetric unknown) (unknown) (no (unknown) (unknown) HLD, BPH, (units (unkno wn) date) insulin-dependent unknown) diabetes and chronic low back pain tx with InterStim (unknown) (no (unknown) (unknown) Hct 36.0 L (units (unk nown) date) unknown) (unknown) (no (unknown) (unknown) Hgb 12.1 L (units (unk nown) date) unknown) (unknown) (no (unknown) (unknown) History of Present (units (unknown) date) Illness unknown) (unknown) (no (unknown) (unknown) History of (units (unk nown) date) shoulder surgery unknown) (unknown) (no (unknown) (unknown) Hospital Course (units (unknown) date) unknown) (unknown) (no (unknown) (unknown) Hyperlipidemia due (units (unknown) date) to type 1 diabetes unknown) mellitus (unknown) (no (unknown) (unknown) [facility] (units (unknown) date) [address] unknown) [place] [address] (unknown) (no (unknown) (unknown) Laboratory Results (units (unknown) date) - last 24 hr unknown) (unknown) (no (unknown) (unknown) Labs (units (unkno wn) date) unknown) (unknown) (no (unknown) (unknown) Labs: (units (unkno wn) date) unknown) (unknown) (no (unknown) (unknown) 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 LFTs are presently improving.? (unknown) (no (unknown) (unknown) Lymph # (Auto) (units (unknown) date) 1500 unknown) (unknown) (no (unknown) (unknown) Lymph % (Auto) (units (unknown) date) 30.8 unknown) (unknown) (no (unknown) (unknown) MCH 32.5 (units (unkno wn) date) unknown) (unknown) (no (unknown) (unknown) MCHC 33.6 (units (unkn own) date) unknown) (unknown) (no (unknown) (unknown) MCV 96.6 (units (unkno wn) date) unknown) (unknown) (no (unknown) (unknown) GEOLOGY INSTRUCTOR Consult needed (units (unknown) date) for:: Substance unknown) Abuse Assess (unknown) (no (unknown) (unknown) Magnesium 1.4 L (units (unknown) date) unknown) (unknown) (no (unknown) (unknown) Luca Dillard, (units (unknown) date) DO unknown) (unknown) (no (unknown) (unknown) Medical History (units (unknown) date) (Reviewed 01/15/23 unknown) @ 02:22 [facility]) (unknown) (no (unknown) (unknown) Octavio Romo is a (units (unknown) date) 53-year-old male unknown) with known history of alcohol abuse, HTN, (unknown) (no (unknown) (unknown) Mild, Will (units (unk nown) date) monitor. unknown) (unknown) (no (unknown) (unknown) Pender # (Auto) 400 (units (unknown) date) unknown) (unknown) (no (unknown) (unknown) Pender % (Auto) 7.7 (units (unknown) date) unknown) (unknown) (no (unknown) (unknown) Mother (units (unknown) date) Diabetes mellitus unknown) (unknown) (no (unknown) (unknown) Multiple falls (units (unknown) date) unknown) (unknown) (no (unknown) (unknown) NEURO: Alert and (units (unknown) date) oriented x 3, unknown) nonfocal but + tongue fasciculations and (unknown) (no (unknown) (unknown) Narrative (units (unkn own) date) unknown) (unknown) (no (unknown) (unknown) Narrative: (units (unk nown) date) unknown) (unknown) (no (unknown) (unknown) Neut # (Auto) 2700 (units (unknown) date) unknown) (unknown) (no (unknown) (unknown) Neut % (Auto) 55.3 (units (unknown) date) unknown) (unknown) (no (unknown) (unknown) New (units (unkno wn) date) unknown) (unknown) (no (unknown) (unknown) Normocytic.? (units (u nknown) date) Likely secondary to unknown) alcohol-induced marrow suppression. (unknown) (no (unknown) (unknown) Objective (units (unkn own) date) unknown) (unknown) (no (unknown) (unknown) Oxygen Delivery (units (unknown) date) Method Room Air unknown) (unknown) (no (unknown) (unknown) Oxygen Flow Rate 0 (units (unknown) date) 0 unknown) (unknown) (no (unknown) (unknown) Oxygen Flow Rate 0 (units (unknown) date) unknown) (unknown) (no (unknown) (unknown) Oxygen Flow Rate (units (unknown) date) unknown) (unknown) (no (unknown) (unknown) PFSH (units (unkno wn) date) unknown) (unknown) (no (unknown) (unknown) Patient Comments: (units (unknown) date) unknown) (unknown) (no (unknown) (unknown) Patient (units (unkno wn) date) Disposition: Home unknown) (unknown) (no (unknown) (unknown) Patient continues (units (unknown) date) on Lantus and unknown) sliding scale. Certainly he could have insulin (unknown) (no (unknown) (unknown) Patient has a (units ( unknown) date) healing laceration unknown) to his right forehead, bruises to his arms, as (unknown) (no (unknown) (unknown) Patient has a (units (u nknown) date) spinal stimulator unknown) in place as well as an intrathecal hydromorphone (unknown) (no (unknown) (unknown) Patient has had (units (unknown) date) multiple prior unknown) attempts from what his brother told me.? No plan (unknown) (no (unknown) (unknown) Patient is on (units ( unknown) date) lisinopril and unknown) propranolol.? He did develop some hypotension (unknown) (no (unknown) (unknown) Patient was noted (units (unknown) date) to have an episode unknown) of AFib in the emergency department for (unknown) (no (unknown) (unknown) Patient: (units (unkno wn) date) Octavio Romo unknown) MR#: [id number] (unknown) (no (unknown) (unknown) Physician (units (unkn own) date) Instructions: unknown) Evaluate and Treat (unknown) (no (unknown) (unknown) Physician (units (unkn own) date) Instructions: unknown) Evaluate and treat (unknown) (no (unknown) (unknown) Plt Count 321 (units ( unknown) date) unknown) (unknown) (no (unknown) (unknown) Potassium 3.9 (units ( unknown) date) unknown) (unknown) (no (unknown) (unknown) Prescriptions: (units (unknown) date) unknown) (unknown) (no (unknown) (unknown) Provider (units (unkno wn) date) unknown) (unknown) (no (unknown) (unknown) Provider: (units (unkn own) date) Luca Dillard unknown) D.O. (unknown) (no (unknown) (unknown) Pulse Oximetry 96 (units (unknown) date) 95 unknown) (unknown) (no (unknown) (unknown) Pulse Oximetry (units (unknown) date) unknown) (unknown) (no (unknown) (unknown) Pulse Rate 60 60 (units (unknown) date) 68 unknown) (unknown) (no (unknown) (unknown) Pulse Rate (units (unk nown) date) unknown) (unknown) (no (unknown) (unknown) Quality (units (unkno wn) date) unknown) (unknown) (no (unknown) (unknown) RBC 3.73 L (units (unk nown) date) unknown) (unknown) (no (unknown) (unknown) RDW 13.4 (units (unkno wn) date) unknown) (unknown) (no (unknown) (unknown) Reason For Exam: (units (unknown) date) [facility] unknown) with [facility] program (unknown) (no (unknown) (unknown) Reason For Exam: (units (unknown) date) DM, ETOH abuse unknown) (unknown) (no (unknown) (unknown) Respiratory Rate (units (unknown) date) 17 17 18 unknown) (unknown) (no (unknown) (unknown) Respiratory Rate (units (unknown) date) unknown) (unknown) (no (unknown) (unknown) Rx Instructions: (units (unknown) date) unknown) (unknown) (no (unknown) (unknown) SKIN: warm and dry, (units (unknown) date) no rash, large dark unknown) bruise noted round his gluteal folds and (unknown) (no (unknown) (unknown) See Rx (units (unkno wn) date) Instructions .ROUTE unknown) .COMPLEX Qty: 12 0RF (unknown) (no (unknown) (unknown) See Rx (units (unkno wn) date) Instructions .ROUTE unknown) .COMPLEX (unknown) (no (unknown) (unknown) Signed By: (units (unk nown) date) unknown) (unknown) (no (unknown) (unknown) Smoking Status: (units (unknown) date) Never smoker unknown) (unknown) (no (unknown) (unknown) Social History (units (unknown) date) (Updated 01/15/23 @ unknown) 02:23 by DOUG Chairez) (unknown) (no (unknown) (unknown) Sodium 137 (units (unk nown) date) unknown) (unknown) (no (unknown) (unknown) Stand Alone Forms: (units (unknown) date) Patient Portal/API, unknown) Stroke Signs + Symptoms (unknown) (no (unknown) (unknown) Summary (units (unkno wn) date) unknown) (unknown) (no (unknown) (unknown) Surgical History (units (unknown) date) (Reviewed 01/15/23 unknown) @ 02:22 by DOUG Chairez) (unknown) (no (unknown) (unknown) TAKE 1 CAPSULE BY (units (unknown) date) MOUTH DAILY unknown) (unknown) (no (unknown) (unknown) TAKE 1 TABLET BY (units (unknown) date) MOUTH EVERY EVENING unknown) (unknown) (no (unknown) (unknown) TAKE 1 TABLET BY (units (unknown) date) MOUTH EVERY MORNING unknown) (unknown) (no (unknown) (unknown) Take 1 tablet by (units (unknown) date) mouth twice a day unknown) (unknown) (no (unknown) (unknown) Temperature 97.4 F (units (unknown) date) L 97.3 F L unknown) (unknown) (no (unknown) (unknown) Temperature (units (un known) date) unknown) (unknown) (no (unknown) (unknown) Time Patient Seen: (units (unknown) date) 22:42 unknown) (unknown) (no (unknown) (unknown) Time Spent with (units (unknown) date) Patient unknown) (unknown) (no (unknown) (unknown) Time spent: (units (un known) date) Greater than 30 unknown) minutes (unknown) (no (unknown) (unknown) VTE (units (unkno wn) date) unknown) (unknown) (no (unknown) (unknown) Visit (units (unkno wn) date) Report/Discharge unknown) Packet (unknown) (no (unknown) (unknown) Vital Signs (units (un known) date) unknown) (unknown) (no (unknown) (unknown) WBC 4.9 (units (unkno wn) date) unknown) (unknown) (no (unknown) (unknown) When asked on (units ( unknown) date) admit regarding unknown) code status patient requested to be a full code, (unknown) (no (unknown) (unknown) Will monitor. (units ( unknown) date) unknown) (unknown) (no (unknown) (unknown) [Embedded Image (units (unknown) date) Not Available] unknown) (unknown) (no (unknown) (unknown) admit patient is (units (unknown) date) unable to state unknown) where he is unable to recall how or when he (unknown) (no (unknown) (unknown) alcohol intake: (units (unknown) date) current unknown) (unknown) (no (unknown) (unknown) alone. 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 PT and OT ordered, will (unknown) (no (unknown) (unknown) and denied suicide (units (unknown) date) ideation. patient unknown) is hemodynamically stable pleasant (unknown) (no (unknown) (unknown) and this has not (units (unknown) date) recurred. TTE was unknown) unremarkable. (unknown) (no (unknown) (unknown) at this time but (units (unknown) date) he notes he does unknown) not feel safe at home.? Would likely benefit (unknown) (no (unknown) (unknown) atorvastatin 40 mg (units (unknown) date) tablet unknown) (unknown) (no (unknown) (unknown) attempted librium (units (unknown) date) previously but BP unknown) dipped, but may have been due to medications (unknown) (no (unknown) (unknown) attempts to (units (un known) date) transfer patient unknown) for detox, but was refused due to hyperglycemia, (unknown) (no (unknown) (unknown) been called to the (units (unknown) date) patient's home unknown) several times over the last few days, he was (unknown) (no (unknown) (unknown) bruising left (units (u nknown) date) abdomen, upper abd, unknown) chest, scabbed abrasion to left anterior lower (unknown) (no (unknown) (unknown) candidate for (units ( unknown) date) anticoagulation due unknown) to his alcohol dependence and frequent falls (unknown) (no (unknown) (unknown) chlordiazepoxide (units (unknown) date) HCl 25 mg Capsule unknown) (unknown) (no (unknown) (unknown) continue CIWA (units ( unknown) date) protocol with prn unknown) benzos. (unknown) (no (unknown) (unknown) continue prn (units (u nknown) date) repletion unknown) (unknown) (no (unknown) (unknown) converses easily (units (unknown) date) but is confused. unknown) WBC 4.3, H+H 12.3/36.9, initial glucose 344, (unknown) (no (unknown) (unknown) couple of weeks (units (unknown) date) for refill. unknown) (unknown) (no (unknown) (unknown) covered in a (units (u nknown) date) variety of multiple unknown) injuries in varying degrees healing, a scabbed (unknown) (no (unknown) (unknown) dependence.? A bit (units (unknown) date) unclear on when he unknown) was diagnosed and there is not any (unknown) (no (unknown) (unknown) dependent diabetes (units (unknown) date) secondary to unknown) pancreatic insufficiency related to his alcohol (unknown) (no (unknown) (unknown) dextroamphetamine- (units (unknown) date) amphetamine 20 mg unknown) tablet (unknown) (no (unknown) (unknown) did not answer.? (units (unknown) date) Patient was seen unknown) and evaluated by GEOLOGY INSTRUCTOR in the ED made multiple (unknown) (no (unknown) (unknown) elevated QTC on (units (unknown) date) EKG, and unknown) encephalopathy. Unable to obtain accurate HPI, ROS due (unknown) (no (unknown) (unknown) extremities well.? (units (unknown) date) Is conversant but unknown) confused.? Patient states he drinks at (unknown) (no (unknown) (unknown) extremity, (units (unk nown) date) significant deep unknown) bruising to lower coccyx area. Patient denies (unknown) (no (unknown) (unknown) fall, head injury, (units (unknown) date) atrial unknown) fibrillation, encephalopathy, ETOH abuse/intoxication, (unknown) (no (unknown) (unknown) fingersticks, (units ( unknown) date) sliding scale, and unknown) Lantus. (unknown) (no (unknown) (unknown) for RVR. Now (units (u nknown) date) increased back to unknown) 25 TID. With shakiness thought of increasing but (unknown) (no (unknown) (unknown) found down this (units (unknown) date) evening on the unknown) bathroom floor with broken glass perhaps broken (unknown) (no (unknown) (unknown) from a program (units (unknown) date) that does dual unknown) diagnosis.? GEOLOGY INSTRUCTOR met with the patient today and (unknown) (no (unknown) (unknown) furosemide 20 mg (units (unknown) date) tablet unknown) (unknown) (no (unknown) (unknown) head CT negative, (units (unknown) date) CT of unknown) abdomen/pelvis multiple remote left rib fractures, left (unknown) (no (unknown) (unknown) household members: (units (unknown) date) none unknown) (unknown) (no (unknown) (unknown) hyperglycemia. (units (unknown) date) unknown) (unknown) (no (unknown) (unknown) information with (units (unknown) date) regard to his unknown) diabetes in the medical record.? We will continue (unknown) (no (unknown) (unknown) inpatient transfer (units (unknown) date) but this is hightly unknown) unlikely despite patient and care (unknown) (no (unknown) (unknown) insulin glargine (units (unknown) date) [Lantus Solostar unknown) U-100 Insulin] 100 unit/mL (3 mL) insulin (unknown) (no (unknown) (unknown) insulin lispro (units (unknown) date) [Humalog KwikPen unknown) Insulin] 100 unit/mL insulin pen (unknown) (no (unknown) (unknown) kill himself when (units (unknown) date) asked why he did unknown) not answer'? When asked if he has a plan he (unknown) (no (unknown) (unknown) least a 5th of (units (unknown) date) Vodka daily, denies unknown) tobacco or illicit.? Patient is unable to (unknown) (no (unknown) (unknown) losartan 100 mg (units (unknown) date) tablet unknown) (unknown) (no (unknown) (unknown) management (units (unk nown) date) searching multiple unknown) facilities. Complicated due to patient's chronic (unknown) (no (unknown) (unknown) medical conditions (units (unknown) date) including unknown) stimulator and hydromorphone pump. (unknown) (no (unknown) (unknown) mirror and blood (units (unknown) date) at the scene. unknown) Patient is confused, but redirectable. During (unknown) (no (unknown) (unknown) negative, tox (units ( unknown) date) screen is positive unknown) for opiates and benzos, initial ETOH 308, (unknown) (no (unknown) (unknown) obtain these (units (u nknown) date) injuries in the unknown) events that led him to the hospital today. He is (unknown) (no (unknown) (unknown) pain, no shortness (units (unknown) date) of breath, no GI or unknown) urinary symptoms.? He is moving all his (unknown) (no (unknown) (unknown) pen (units (unkno wn) date) unknown) (unknown) (no (unknown) (unknown) propranolol 20 mg (units (unknown) date) tablet unknown) (unknown) (no (unknown) (unknown) pump.? He reports (units (unknown) date) the pump was filled unknown) every 2 months and he is not due for a (unknown) (no (unknown) (unknown) recall what his (units (unknown) date) medications are he unknown) believes he is on insulins but he has no idea (unknown) (no (unknown) (unknown) repeat 254, AST (units (unknown) date) 87, ALT 88, unknown) alk-phos 144, UA negative, lactate negative, lipase (unknown) (no (unknown) (unknown) repeat 91. COVID (units (unknown) date) negative. EKG sinus unknown) rhythm rate 72 QTC 499, without ST or T (unknown) (no (unknown) (unknown) right forearm.? (units (unknown) date) These all have unknown) occurred when he has been intoxicated and home (unknown) (no (unknown) (unknown) sacrum (units (unkno wn) date) unknown) (unknown) (no (unknown) (unknown) scapula fracture, (units (unknown) date) and L1/L2 unknown) transverse process fracture. Patient admitted for (unknown) (no (unknown) (unknown) see today. (units (unk nown) date) unknown) (unknown) (no (unknown) (unknown) still. (units (unkno wn) date) unknown) (unknown) (no (unknown) (unknown) stimulator in back (units (unknown) date) lumbar + Dilaudid unknown) pain pump in abdomen.? EMS had apparently (unknown) (no (unknown) (unknown) superficial lee (units (unknown) date) noted to his right unknown) forearm (unknown) (no (unknown) (unknown) superficial (units (un known) date) laceration over his unknown) right forehead, small burn right forearm, (unknown) (no (unknown) (unknown) symptoms are still (units (unknown) date) fairly mild and unknown) will keep same dose today. (unknown) (no (unknown) (unknown) tamsulosin 0.4 mg (units (unknown) date) capsule unknown) (unknown) (no (unknown) (unknown) then 25mg once (units (unknown) date) daily for 2 days unknown) then stop (unknown) (no (unknown) (unknown) to encephalopathy. (units (unknown) date) ED reported patient unknown) had an episode of atrial fibrillation (unknown) (no (unknown) (unknown) to kill himself to (units (unknown) date) the medics and when unknown) asked in ED he ' stated he did want to (unknown) (no (unknown) (unknown) tremulousness. (units (unknown) date) unknown) (unknown) (no (unknown) (unknown) wave changes. (units ( unknown) date) Chest x-ray unknown) negative, C-spine negative, pelvic x-ray negative, (unknown) (no (unknown) (unknown) well as his (units (un known) date) gluteal unknown) area/sacrum.? He also has some superficial lee to his (unknown) (no (unknown) (unknown) when or if he is (units (unknown) date) taken his unknown) medication. He did make statements that he wanted (unknown) (no (unknown) (unknown) which he was given (units (unknown) date) a dose of unknown) metoprolol.? CHADS2 Vasc score is 2, consistent (unknown) (no (unknown) (unknown) which metoprolol (units (unknown) date) was given and unknown) quickly resolved. (unknown) (no (unknown) (unknown) will work on (units (u nknown) date) possible unknown) resources.? He would benefit most from inpatient to (unknown) (no (unknown) (unknown) with a 2.2% stroke (units (unknown) date) risk annually.? unknown) Unfortunately, he would be a very poor (unknown) (no (unknown) (unknown) yesterday, with (units (unknown) date) librium noted above unknown) will continue to hold today. Result panel 269 (unknown) (no (unknown) (unknown) (no value) (units (unk nown) date) unknown) (unknown) (no (unknown) (unknown) (past 8 hours): (units (unknown) date) unknown) (unknown) (no (unknown) (unknown) Discharges (units ( unknown) date) patient from unknown) system. (unknown) (no (unknown) (unknown) - okay to stop (units (unknown) date) tele today. unknown) (unknown) (no (unknown) (unknown) 0.4 mg PO DAILY (units (unknown) date) unknown) (unknown) (no (unknown) (unknown) [id number] (units (unkno wn) date) unknown) (unknown) (no (unknown) (unknown) 03:30 01/19/23 (units (unknown) date) unknown) (unknown) (no (unknown) (unknown) 03:33 01/19/23 (units (unknown) date) unknown) (unknown) (no (unknown) (unknown) 01/14/23 22:12 (units (unknown) date) unknown) (unknown) (no (unknown) (unknown) 01/14/23 22:26 (units (unknown) date) unknown) (unknown) (no (unknown) (unknown) 01/14/23 22:37 (units (unknown) date) unknown) (unknown) (no (unknown) (unknown) 01/14/23 22:38 (units (unknown) date) unknown) (unknown) (no (unknown) (unknown) 01/15/23 18:02 (units (unknown) date) unknown) (unknown) (no (unknown) (unknown) 01/16/23 12:41 (units (unknown) date) unknown) (unknown) (no (unknown) (unknown) 01/16/23 14:55 (units (unknown) date) unknown) (unknown) (no (unknown) (unknown) 01/19/23 01/19/23 (units (unknown) date) unknown) (unknown) (no (unknown) (unknown) 01/19/23 06:23 (units (unknown) date) unknown) (unknown) (no (unknown) (unknown) 01/19/23 (units (unkno wn) date) unknown) (unknown) (no (unknown) (unknown) 06:23 06:23 (units (un known) date) unknown) (unknown) (no (unknown) (unknown) 07:00 (units (unkno wn) date) unknown) (unknown) (no (unknown) (unknown) 08:42 (units (unkno wn) date) unknown) (unknown) (no (unknown) (unknown) 1. Alcohol (units (unk nown) date) dependence with unknown) withdrawal (unknown) (no (unknown) (unknown) 10. Hyponatremia (units (unknown) date) unknown) (unknown) (no (unknown) (unknown) 100 mg PO DAILY (units (unknown) date) unknown) (unknown) (no (unknown) (unknown) 11. Hypomagnesemia (units (unknown) date) unknown) (unknown) (no (unknown) (unknown) 12. Transaminitis (units (unknown) date) unknown) (unknown) (no (unknown) (unknown) 13. hypomagnesemia (units (unknown) date) unknown) (unknown) (no (unknown) (unknown) 2. Suicidal (units (un known) date) ideation unknown) (unknown) (no (unknown) (unknown) 20 mg PO BID (units (u nknown) date) unknown) (unknown) (no (unknown) (unknown) 20 mg PO DAILY (units (unknown) date) unknown) (unknown) (no (unknown) (unknown) 20 unit SUBCUT (units (unknown) date) BEDTIME unknown) (unknown) (no (unknown) (unknown) 25 mg orally three (units (unknown) date) times daily for 2 unknown) days, then 25mg twice daily for 2 days, (unknown) (no (unknown) (unknown) 3. Multiple falls (units (unknown) date) secondary to gait unknown) instability (unknown) (no (unknown) (unknown) 4. Paroxysmal (units ( unknown) date) atrial fibrillation unknown) (unknown) (no (unknown) (unknown) 40 mg PO BEDTIME (units (unknown) date) unknown) (unknown) (no (unknown) (unknown) 5. Diabetes (units (un known) date) mellitus, type unknown) unclear (unknown) (no (unknown) (unknown) 6. Hypertension (units (unknown) date) unknown) (unknown) (no (unknown) (unknown) 7. Chronic pain (units (unknown) date) syndrome unknown) (unknown) (no (unknown) (unknown) 8. BPH (units (unkno wn) date) unknown) (unknown) (no (unknown) (unknown) 9. Anemia (units (unkn own) date) unknown) (unknown) (no (unknown) (unknown) ?- repleted with (units (unknown) date) IV, may be unknown) contributing to weakness. (unknown) (no (unknown) (unknown) ABD: Soft, NT/ND, (units (unknown) date) BT present in all 4 unknown) quadrants, no organomegaly or masses (unknown) (no (unknown) (unknown) ADMINISTER 2 TO 10 (units (unknown) date) UNITS UNDER THE unknown) SKIN BEFORE MEALS AND AT BEDTIME (unknown) (no (unknown) (unknown) ADMINISTER 20 (units ( unknown) date) UNITS UNDER THE unknown) SKIN EVERY EVENING (unknown) (no (unknown) (unknown) Age/Sex: 53 / M (units (unknown) date) unknown) (unknown) (no (unknown) (unknown) Alcohol (units (unkno wn) date) intoxication unknown) (unknown) (no (unknown) (unknown) BPH (benign (units (un known) date) prostatic unknown) hyperplasia) (unknown) (no (unknown) (unknown) BUN 12 (units (unkno wn) date) unknown) (unknown) (no (unknown) (unknown) BUN/Creatinine (units (unknown) date) Ratio 20.0 unknown) (unknown) (no (unknown) (unknown) Baso # (Auto) 0 (units (unknown) date) unknown) (unknown) (no (unknown) (unknown) Baso % (Auto) 1.0 (units (unknown) date) unknown) (unknown) (no (unknown) (unknown) Behavioral Health (units (unknown) date) Assess unknown) (unknown) (no (unknown) (unknown) Blood Pressure (units (unknown) date) 127/74 127/74 unknown) 127/85 (unknown) (no (unknown) (unknown) Blood Pressure (units (unknown) date) 127/ unknown) (unknown) (no (unknown) (unknown) CHEST: Respiratory (units (unknown) date) excursions unknown) symmetric, CTAB (unknown) (no (unknown) (unknown) CV: RRR, no M/R/G (units (unknown) date) unknown) (unknown) (no (unknown) (unknown) Calcium 8.8 (units (un known) date) unknown) (unknown) (no (unknown) (unknown) Carbon Dioxide 29 (units (unknown) date) unknown) (unknown) (no (unknown) (unknown) Chief complaint: (units (unknown) date) Trauma unknown) (unknown) (no (unknown) (unknown) Chloride 100 (units (u nknown) date) unknown) (unknown) (no (unknown) (unknown) Chronic low back (units (unknown) date) pain unknown) (unknown) (no (unknown) (unknown) Comment: ETOH (units ( unknown) date) Abuse, SI unknown) (unknown) (no (unknown) (unknown) Comment: Wound (units (unknown) date) care unknown) (unknown) (no (unknown) (unknown) Comment: (units (unkno wn) date) unknown) (unknown) (no (unknown) (unknown) Congestive heart (units (unknown) date) failure unknown) (unknown) (no (unknown) (unknown) Consult to (units (unk nown) date) Dietitian, Adult unknown) Routine (unknown) (no (unknown) (unknown) Consult to Home (units (unknown) date) Health Routine unknown) (unknown) (no (unknown) (unknown) 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 - (units (unknown) date) 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 unknown) Routine (unknown) (no (unknown) (unknown) Consult to (units (unk nown) date) Occupational unknown) Therapy Evaluate + Treat (unknown) (no (unknown) (unknown) Consult to (units (unk nown) date) Physical Therapy unknown) Evaluate + Treat (unknown) (no (unknown) (unknown) Consults: (units (unkn own) date) unknown) (unknown) (no (unknown) (unknown) Continue Flomax (units (unknown) date) unknown) (unknown) (no (unknown) (unknown) Continued (units (unkn own) date) unknown) (unknown) (no (unknown) (unknown) Creatinine 0.60 L (units (unknown) date) unknown) (unknown) (no (unknown) (unknown) : 1970 (units (unknown) date) Acct:[id number] unknown) (unknown) (no (unknown) (unknown) Date Patient Seen: (units (unknown) date) 01/14/23 unknown) (unknown) (no (unknown) (unknown) Date of Service: (units (unknown) date) 01/14/23 unknown) (unknown) (no (unknown) (unknown) Date of admission: (units (unknown) date) unknown) (unknown) (no (unknown) (unknown) Deep Vein (units (unkn own) date) Thrombosis/Pulmonar unknown) y Embolism Present on Admission: No (unknown) (no (unknown) (unknown) Discharge (units (unkn own) date) Date/Time: 01/19/23 unknown) 11:08 (unknown) (no (unknown) (unknown) Discharge Date: (units (unknown) date) 01/19/23 unknown) (unknown) (no (unknown) (unknown) Discharge (units (unkn own) date) Diagnosis: unknown) (unknown) (no (unknown) (unknown) Discharge Plan (units (unknown) date) unknown) (unknown) (no (unknown) (unknown) Discharge (units (unkn own) date) Providers unknown) (unknown) (no (unknown) (unknown) Discharge Summary (units (unknown) date) unknown) (unknown) (no (unknown) (unknown) Discharge orders + (units (unknown) date) Medications unknown) (unknown) (no (unknown) (unknown) Discharge (units (unkn own) date) provider: unknown) (unknown) (no (unknown) (unknown) Does have prior (units (unknown) date) history of DT, unknown) symptoms today are consistent with withdrawal (unknown) (no (unknown) (unknown) EXTR: warm, well (units (unknown) date) perfused, no C/C/E, unknown) scattered bruising noted to his arms, (unknown) (no (unknown) (unknown) Eos # (Auto) 300 (units (unknown) date) unknown) (unknown) (no (unknown) (unknown) Eos % (Auto) 5.2 H (units (unknown) date) unknown) (unknown) (no (unknown) (unknown) Essential (units (unkn own) date) hypertension unknown) (unknown) (no (unknown) (unknown) Estimated GFR > 60 (units (unknown) date) unknown) (unknown) (no (unknown) (unknown) Exam Narrative: (units (unknown) date) unknown) (unknown) (no (unknown) (unknown) Exam (units (unkno wn) date) unknown) (unknown) (no (unknown) (unknown) Family History (units (unknown) date) (Updated 01/15/23 @ unknown) 02:24 by Genesis Dunn [facility]) (unknown) (no (unknown) (unknown) Father Diabetes (units (unknown) date) mellitus unknown) (unknown) (no (unknown) (unknown) GEN: Alert and (units (unknown) date) oriented x 3, no unknown) acute distress (unknown) (no (unknown) (unknown) Glucose 139 H (units ( unknown) date) unknown) (unknown) (no (unknown) (unknown) HEENT:NC, Face (units (unknown) date) symmetric unknown) (unknown) (no (unknown) (unknown) HLD, BPH, (units (unkno wn) date) insulin-dependent unknown) diabetes and chronic low back pain tx with InterStim (unknown) (no (unknown) (unknown) Hct 36.0 L (units (unk nown) date) unknown) (unknown) (no (unknown) (unknown) Hgb 12.1 L (units (unk nown) date) unknown) (unknown) (no (unknown) (unknown) History of Present (units (unknown) date) Illness unknown) (unknown) (no (unknown) (unknown) History of (units (unk nown) date) shoulder surgery unknown) (unknown) (no (unknown) (unknown) Hospital Course (units (unknown) date) unknown) (unknown) (no (unknown) (unknown) Hyperlipidemia due (units (unknown) date) to type 1 diabetes unknown) mellitus (unknown) (no (unknown) (unknown) [facility] (units (unknown) date) [address] unknown) [place] [address] (unknown) (no (unknown) (unknown) Laboratory Results (units (unknown) date) - last 24 hr unknown) (unknown) (no (unknown) (unknown) Labs (units (unkno wn) date) unknown) (unknown) (no (unknown) (unknown) Labs: (units (unkno wn) date) unknown) (unknown) (no (unknown) (unknown) 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 LFTs are presently improving.? (unknown) (no (unknown) (unknown) Lymph # (Auto) (units (unknown) date) 1500 unknown) (unknown) (no (unknown) (unknown) Lymph % (Auto) (units (unknown) date) 30.8 unknown) (unknown) (no (unknown) (unknown) MCH 32.5 (units (unkno wn) date) unknown) (unknown) (no (unknown) (unknown) MCHC 33.6 (units (unkn own) date) unknown) (unknown) (no (unknown) (unknown) MCV 96.6 (units (unkno wn) date) unknown) (unknown) (no (unknown) (unknown) GEOLOGY INSTRUCTOR Consult needed (units (unknown) date) for:: Substance unknown) Abuse Assess (unknown) (no (unknown) (unknown) Magnesium 1.4 L (units (unknown) date) unknown) (unknown) (no (unknown) (unknown) Luca Dillard, (units (unknown) date) DO unknown) (unknown) (no (unknown) (unknown) Medical History (units (unknown) date) (Reviewed 01/15/23 unknown) @ 02:22 by SOMMER Chairez) (unknown) (no (unknown) (unknown) Octavio Romo is a (units (unknown) date) 53-year-old male unknown) with known history of alcohol abuse, HTN, (unknown) (no (unknown) (unknown) Mild, Will (units (unk nown) date) monitor. unknown) (unknown) (no (unknown) (unknown) Pender # (Auto) 400 (units (unknown) date) unknown) (unknown) (no (unknown) (unknown) Pender % (Auto) 7.7 (units (unknown) date) unknown) (unknown) (no (unknown) (unknown) Mother (units (unknown) date) Diabetes mellitus unknown) (unknown) (no (unknown) (unknown) Multiple falls (units (unknown) date) unknown) (unknown) (no (unknown) (unknown) NEURO: Alert and (units (unknown) date) oriented x 3, unknown) nonfocal but + tongue fasciculations and (unknown) (no (unknown) (unknown) Narrative (units (unkn own) date) unknown) (unknown) (no (unknown) (unknown) Narrative: (units (unk nown) date) unknown) (unknown) (no (unknown) (unknown) Neut # (Auto) 2700 (units (unknown) date) unknown) (unknown) (no (unknown) (unknown) Neut % (Auto) 55.3 (units (unknown) date) unknown) (unknown) (no (unknown) (unknown) New (units (unkno wn) date) unknown) (unknown) (no (unknown) (unknown) Normocytic.? (units (u nknown) date) Likely secondary to unknown) alcohol-induced marrow suppression. (unknown) (no (unknown) (unknown) Objective (units (unkn own) date) unknown) (unknown) (no (unknown) (unknown) Oxygen Delivery (units (unknown) date) Method Room Air unknown) (unknown) (no (unknown) (unknown) Oxygen Flow Rate 0 (units (unknown) date) 0 unknown) (unknown) (no (unknown) (unknown) Oxygen Flow Rate 0 (units (unknown) date) unknown) (unknown) (no (unknown) (unknown) Oxygen Flow Rate (units (unknown) date) unknown) (unknown) (no (unknown) (unknown) PFSH (units (unkno wn) date) unknown) (unknown) (no (unknown) (unknown) Patient Comments: (units (unknown) date) unknown) (unknown) (no (unknown) (unknown) Patient (units (unkno wn) date) Disposition: Home unknown) (unknown) (no (unknown) (unknown) Patient continues (units (unknown) date) on Lantus and unknown) sliding scale. Certainly he could have insulin (unknown) (no (unknown) (unknown) Patient has a (units ( unknown) date) healing laceration unknown) to his right forehead, bruises to his arms, as (unknown) (no (unknown) (unknown) Patient has a (units (u nknown) date) spinal stimulator unknown) in place as well as an intrathecal hydromorphone (unknown) (no (unknown) (unknown) Patient has had (units (unknown) date) multiple prior unknown) attempts from what his brother told me.? No plan (unknown) (no (unknown) (unknown) Patient is on (units ( unknown) date) lisinopril and unknown) propranolol.? He did develop some hypotension (unknown) (no (unknown) (unknown) Patient was noted (units (unknown) date) to have an episode unknown) of AFib in the emergency department for (unknown) (no (unknown) (unknown) Patient: (units (unkno wn) date) Octavio Romo unknown) MR#: [id number] (unknown) (no (unknown) (unknown) Physician (units (unkn own) date) Instructions: unknown) Evaluate and Treat (unknown) (no (unknown) (unknown) Physician (units (unkn own) date) Instructions: unknown) Evaluate and treat (unknown) (no (unknown) (unknown) Plt Count 321 (units ( unknown) date) unknown) (unknown) (no (unknown) (unknown) Potassium 3.9 (units ( unknown) date) unknown) (unknown) (no (unknown) (unknown) Prescriptions: (units (unknown) date) unknown) (unknown) (no (unknown) (unknown) Provider (units (unkno wn) date) unknown) (unknown) (no (unknown) (unknown) Provider: (units (unkn own) date) Luca Dillard unknown) D.O. (unknown) (no (unknown) (unknown) Pulse Oximetry 96 (units (unknown) date) 95 unknown) (unknown) (no (unknown) (unknown) Pulse Oximetry (units (unknown) date) unknown) (unknown) (no (unknown) (unknown) Pulse Rate 60 60 (units (unknown) date) 68 unknown) (unknown) (no (unknown) (unknown) Pulse Rate (units (unk nown) date) unknown) (unknown) (no (unknown) (unknown) Quality (units (unkno wn) date) unknown) (unknown) (no (unknown) (unknown) RBC 3.73 L (units (unk nown) date) unknown) (unknown) (no (unknown) (unknown) RDW 13.4 (units (unkno wn) date) unknown) (unknown) (no (unknown) (unknown) Reason For Exam: (units (unknown) date) [facility] unknown) with [facility] program (unknown) (no (unknown) (unknown) Reason For Exam: (units (unknown) date) DM, ETOH abuse unknown) (unknown) (no (unknown) (unknown) Respiratory Rate (units (unknown) date) 17 17 18 unknown) (unknown) (no (unknown) (unknown) Respiratory Rate (units (unknown) date) unknown) (unknown) (no (unknown) (unknown) Rx Instructions: (units (unknown) date) unknown) (unknown) (no (unknown) (unknown) SKIN: warm and dry, (units (unknown) date) no rash, large dark unknown) bruise noted round his gluteal folds and (unknown) (no (unknown) (unknown) See Rx (units (unkno wn) date) Instructions .ROUTE unknown) .COMPLEX Qty: 12 0RF (unknown) (no (unknown) (unknown) See Rx (units (unkno wn) date) Instructions .ROUTE unknown) .COMPLEX (unknown) (no (unknown) (unknown) Signed By: (units (unk nown) date) unknown) (unknown) (no (unknown) (unknown) Smoking Status: (units (unknown) date) Never smoker unknown) (unknown) (no (unknown) (unknown) Social History (units (unknown) date) (Updated 01/15/23 @ unknown) 02:23 by DOUG Chairez) (unknown) (no (unknown) (unknown) Sodium 137 (units (unk nown) date) unknown) (unknown) (no (unknown) (unknown) Stand Alone Forms: (units (unknown) date) Patient Portal/API, unknown) Stroke Signs + Symptoms (unknown) (no (unknown) (unknown) Summary (units (unkno wn) date) unknown) (unknown) (no (unknown) (unknown) Surgical History (units (unknown) date) (Reviewed 01/15/23 unknown) @ 02:22 by SOMMER Chairez) (unknown) (no (unknown) (unknown) TAKE 1 CAPSULE BY (units (unknown) date) MOUTH DAILY unknown) (unknown) (no (unknown) (unknown) TAKE 1 TABLET BY (units (unknown) date) MOUTH EVERY EVENING unknown) (unknown) (no (unknown) (unknown) TAKE 1 TABLET BY (units (unknown) date) MOUTH EVERY MORNING unknown) (unknown) (no (unknown) (unknown) Take 1 tablet by (units (unknown) date) mouth twice a day unknown) (unknown) (no (unknown) (unknown) Temperature 97.4 F (units (unknown) date) L 97.3 F L unknown) (unknown) (no (unknown) (unknown) Temperature (units (un known) date) unknown) (unknown) (no (unknown) (unknown) Time Patient Seen: (units (unknown) date) 22:42 unknown) (unknown) (no (unknown) (unknown) Time Spent with (units (unknown) date) Patient unknown) (unknown) (no (unknown) (unknown) Time spent: (units (un known) date) Greater than 30 unknown) minutes (unknown) (no (unknown) (unknown) VTE (units (unkno wn) date) unknown) (unknown) (no (unknown) (unknown) Visit (units (unkno wn) date) Report/Discharge unknown) Packet (unknown) (no (unknown) (unknown) Vital Signs (units (un known) date) unknown) (unknown) (no (unknown) (unknown) WBC 4.9 (units (unkno wn) date) unknown) (unknown) (no (unknown) (unknown) When asked on (units ( unknown) date) admit regarding unknown) code status patient requested to be a full code, (unknown) (no (unknown) (unknown) Will monitor. (units ( unknown) date) unknown) (unknown) (no (unknown) (unknown) [Embedded Image (units (unknown) date) Not Available] unknown) (unknown) (no (unknown) (unknown) admit patient is (units (unknown) date) unable to state unknown) where he is unable to recall how or when he (unknown) (no (unknown) (unknown) alcohol intake: (units (unknown) date) current unknown) (unknown) (no (unknown) (unknown) alone. 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 PT and OT ordered, will (unknown) (no (unknown) (unknown) and denied suicide (units (unknown) date) ideation. patient unknown) is hemodynamically stable pleasant (unknown) (no (unknown) (unknown) and this has not (units (unknown) date) recurred. TTE was unknown) unremarkable. (unknown) (no (unknown) (unknown) at this time but (units (unknown) date) he notes he does unknown) not feel safe at home.? Would likely benefit (unknown) (no (unknown) (unknown) atorvastatin 40 mg (units (unknown) date) tablet unknown) (unknown) (no (unknown) (unknown) attempted librium (units (unknown) date) previously but BP unknown) dipped, but may have been due to medications (unknown) (no (unknown) (unknown) attempts to (units (un known) date) transfer patient unknown) for detox, but was refused due to hyperglycemia, (unknown) (no (unknown) (unknown) been called to the (units (unknown) date) patient's home unknown) several times over the last few days, he was (unknown) (no (unknown) (unknown) bruising left (units (u nknown) date) abdomen, upper abd, unknown) chest, scabbed abrasion to left anterior lower (unknown) (no (unknown) (unknown) candidate for (units ( unknown) date) anticoagulation due unknown) to his alcohol dependence and frequent falls (unknown) (no (unknown) (unknown) chlordiazepoxide (units (unknown) date) HCl 25 mg Capsule unknown) (unknown) (no (unknown) (unknown) continue CIWA (units ( unknown) date) protocol with prn unknown) benzos. (unknown) (no (unknown) (unknown) continue prn (units (u nknown) date) repletion unknown) (unknown) (no (unknown) (unknown) converses easily (units (unknown) date) but is confused. unknown) WBC 4.3, H+H 12.3/36.9, initial glucose 344, (unknown) (no (unknown) (unknown) couple of weeks (units (unknown) date) for refill. unknown) (unknown) (no (unknown) (unknown) covered in a (units (u nknown) date) variety of multiple unknown) injuries in varying degrees healing, a scabbed (unknown) (no (unknown) (unknown) dependence.? A bit (units (unknown) date) unclear on when he unknown) was diagnosed and there is not any (unknown) (no (unknown) (unknown) dependent diabetes (units (unknown) date) secondary to unknown) pancreatic insufficiency related to his alcohol (unknown) (no (unknown) (unknown) dextroamphetamine- (units (unknown) date) amphetamine 20 mg unknown) tablet (unknown) (no (unknown) (unknown) did not answer.? (units (unknown) date) Patient was seen unknown) and evaluated by GEOLOGY INSTRUCTOR in the ED made multiple (unknown) (no (unknown) (unknown) elevated QTC on (units (unknown) date) EKG, and unknown) encephalopathy. Unable to obtain accurate HPI, ROS due (unknown) (no (unknown) (unknown) extremities well.? (units (unknown) date) Is conversant but unknown) confused.? Patient states he drinks at (unknown) (no (unknown) (unknown) extremity, (units (unk nown) date) significant deep unknown) bruising to lower coccyx area. Patient denies (unknown) (no (unknown) (unknown) fall, head injury, (units (unknown) date) atrial unknown) fibrillation, encephalopathy, ETOH abuse/intoxication, (unknown) (no (unknown) (unknown) fingersticks, (units ( unknown) date) sliding scale, and unknown) Lantus. (unknown) (no (unknown) (unknown) for RVR. Now (units (u nknown) date) increased back to unknown) 25 TID. With shakiness thought of increasing but (unknown) (no (unknown) (unknown) found down this (units (unknown) date) evening on the unknown) bathroom floor with broken glass perhaps broken (unknown) (no (unknown) (unknown) from a program (units (unknown) date) that does dual unknown) diagnosis.? GEOLOGY INSTRUCTOR met with the patient today and (unknown) (no (unknown) (unknown) furosemide 20 mg (units (unknown) date) tablet unknown) (unknown) (no (unknown) (unknown) head CT negative, (units (unknown) date) CT of unknown) abdomen/pelvis multiple remote left rib fractures, left (unknown) (no (unknown) (unknown) household members: (units (unknown) date) none unknown) (unknown) (no (unknown) (unknown) hyperglycemia. (units (unknown) date) unknown) (unknown) (no (unknown) (unknown) information with (units (unknown) date) regard to his unknown) diabetes in the medical record.? We will continue (unknown) (no (unknown) (unknown) inpatient transfer (units (unknown) date) but this is hightly unknown) unlikely despite patient and care (unknown) (no (unknown) (unknown) insulin glargine (units (unknown) date) [Lantus Solostar unknown) U-100 Insulin] 100 unit/mL (3 mL) insulin (unknown) (no (unknown) (unknown) insulin lispro (units (unknown) date) [Humalog KwikPen unknown) Insulin] 100 unit/mL insulin pen (unknown) (no (unknown) (unknown) kill himself when (units (unknown) date) asked why he did unknown) not answer'? When asked if he has a plan he (unknown) (no (unknown) (unknown) least a 5th of (units (unknown) date) Vodka daily, denies unknown) tobacco or illicit.? Patient is unable to (unknown) (no (unknown) (unknown) losartan 100 mg (units (unknown) date) tablet unknown) (unknown) (no (unknown) (unknown) management (units (unk nown) date) searching multiple unknown) facilities. Complicated due to patient's chronic (unknown) (no (unknown) (unknown) medical conditions (units (unknown) date) including unknown) stimulator and hydromorphone pump. (unknown) (no (unknown) (unknown) mirror and blood (units (unknown) date) at the scene. unknown) Patient is confused, but redirectable. During (unknown) (no (unknown) (unknown) negative, tox (units ( unknown) date) screen is positive unknown) for opiates and benzos, initial ETOH 308, (unknown) (no (unknown) (unknown) obtain these (units (u nknown) date) injuries in the unknown) events that led him to the hospital today. He is (unknown) (no (unknown) (unknown) pain, no shortness (units (unknown) date) of breath, no GI or unknown) urinary symptoms.? He is moving all his (unknown) (no (unknown) (unknown) pen (units (unkno wn) date) unknown) (unknown) (no (unknown) (unknown) propranolol 20 mg (units (unknown) date) tablet unknown) (unknown) (no (unknown) (unknown) pump.? He reports (units (unknown) date) the pump was filled unknown) every 2 months and he is not due for a (unknown) (no (unknown) (unknown) recall what his (units (unknown) date) medications are he unknown) believes he is on insulins but he has no idea (unknown) (no (unknown) (unknown) repeat 254, AST (units (unknown) date) 87, ALT 88, unknown) alk-phos 144, UA negative, lactate negative, lipase (unknown) (no (unknown) (unknown) repeat 91. COVID (units (unknown) date) negative. EKG sinus unknown) rhythm rate 72 QTC 499, without ST or T (unknown) (no (unknown) (unknown) right forearm.? (units (unknown) date) These all have unknown) occurred when he has been intoxicated and home (unknown) (no (unknown) (unknown) sacrum (units (unkno wn) date) unknown) (unknown) (no (unknown) (unknown) scapula fracture, (units (unknown) date) and L1/L2 unknown) transverse process fracture. Patient admitted for (unknown) (no (unknown) (unknown) see today. (units (unk nown) date) unknown) (unknown) (no (unknown) (unknown) still. (units (unkno wn) date) unknown) (unknown) (no (unknown) (unknown) stimulator in back (units (unknown) date) lumbar + Dilaudid unknown) pain pump in abdomen.? EMS had apparently (unknown) (no (unknown) (unknown) superficial lee (units (unknown) date) noted to his right unknown) forearm (unknown) (no (unknown) (unknown) superficial (units (un known) date) laceration over his unknown) right forehead, small burn right forearm, (unknown) (no (unknown) (unknown) symptoms are still (units (unknown) date) fairly mild and unknown) will keep same dose today. (unknown) (no (unknown) (unknown) tamsulosin 0.4 mg (units (unknown) date) capsule unknown) (unknown) (no (unknown) (unknown) then 25mg once (units (unknown) date) daily for 2 days unknown) then stop (unknown) (no (unknown) (unknown) to encephalopathy. (units (unknown) date) ED reported patient unknown) had an episode of atrial fibrillation (unknown) (no (unknown) (unknown) to kill himself to (units (unknown) date) the medics and when unknown) asked in ED he ' stated he did want to (unknown) (no (unknown) (unknown) tremulousness. (units (unknown) date) unknown) (unknown) (no (unknown) (unknown) wave changes. (units ( unknown) date) Chest x-ray unknown) negative, C-spine negative, pelvic x-ray negative, (unknown) (no (unknown) (unknown) well as his (units (un known) date) gluteal unknown) area/sacrum.? He also has some superficial lee to his (unknown) (no (unknown) (unknown) when or if he is (units (unknown) date) taken his unknown) medication. He did make statements that he wanted (unknown) (no (unknown) (unknown) which he was given (units (unknown) date) a dose of unknown) metoprolol.? CHADS2 Vasc score is 2, consistent (unknown) (no (unknown) (unknown) which metoprolol (units (unknown) date) was given and unknown) quickly resolved. (unknown) (no (unknown) (unknown) will work on (units (u nknown) date) possible unknown) resources.? He would benefit most from inpatient to (unknown) (no (unknown) (unknown) with a 2.2% stroke (units (unknown) date) risk annually.? unknown) Unfortunately, he would be a very poor (unknown) (no (unknown) (unknown) yesterday, with (units (unknown) date) librium noted above unknown) will continue to hold today. Result panel 270 (unknown) (no (unknown) (unknown) (no value) (units (unk nown) date) unknown) (unknown) (no (unknown) (unknown) (past 8 hours): (units (unknown) date) unknown) (unknown) (no (unknown) (unknown) Discharges (units ( unknown) date) patient from unknown) system. (unknown) (no (unknown) (unknown) -discharged on (units (unknown) date) librium 25mg TID unknown) with taper (unknown) (no (unknown) (unknown) -no accepting (units ( unknown) date) facilities with unknown) pain pump, patient will explore inpatient options (unknown) (no (unknown) (unknown) -resumed BP meds (units (unknown) date) on discharge unknown) (unknown) (no (unknown) (unknown) 0.4 mg PO DAILY (units (unknown) date) unknown) (unknown) (no (unknown) (unknown) [id number] (units (unkno wn) date) unknown) (unknown) (no (unknown) (unknown) 03:30 01/19/23 (units (unknown) date) unknown) (unknown) (no (unknown) (unknown) 03:33 01/19/23 (units (unknown) date) unknown) (unknown) (no (unknown) (unknown) 01/14/23 22:12 (units (unknown) date) unknown) (unknown) (no (unknown) (unknown) 01/14/23 22:26 (units (unknown) date) unknown) (unknown) (no (unknown) (unknown) 01/14/23 22:37 (units (unknown) date) unknown) (unknown) (no (unknown) (unknown) 01/14/23 22:38 (units (unknown) date) unknown) (unknown) (no (unknown) (unknown) 01/15/23 18:02 (units (unknown) date) unknown) (unknown) (no (unknown) (unknown) 01/16/23 12:41 (units (unknown) date) unknown) (unknown) (no (unknown) (unknown) 01/16/23 14:55 (units (unknown) date) unknown) (unknown) (no (unknown) (unknown) 01/19/23 01/19/23 (units (unknown) date) unknown) (unknown) (no (unknown) (unknown) 01/19/23 06:23 (units (unknown) date) unknown) (unknown) (no (unknown) (unknown) 01/19/23 (units (unkno wn) date) unknown) (unknown) (no (unknown) (unknown) 06:23 06:23 (units (un known) date) unknown) (unknown) (no (unknown) (unknown) 07:00 (units (unkno wn) date) unknown) (unknown) (no (unknown) (unknown) 08:42 (units (unkno wn) date) unknown) (unknown) (no (unknown) (unknown) 1. Alcohol (units (unk nown) date) dependence with unknown) withdrawal (unknown) (no (unknown) (unknown) 10. Hyponatremia (units (unknown) date) unknown) (unknown) (no (unknown) (unknown) 100 mg PO DAILY (units (unknown) date) unknown) (unknown) (no (unknown) (unknown) 11. Hypomagnesemia (units (unknown) date) unknown) (unknown) (no (unknown) (unknown) 12. Transaminitis (units (unknown) date) unknown) (unknown) (no (unknown) (unknown) 13. hypomagnesemia (units (unknown) date) unknown) (unknown) (no (unknown) (unknown) 2. Suicidal (units (un known) date) ideation unknown) (unknown) (no (unknown) (unknown) 20 mg PO BID (units (u nknown) date) unknown) (unknown) (no (unknown) (unknown) 20 mg PO DAILY (units (unknown) date) unknown) (unknown) (no (unknown) (unknown) 20 unit SUBCUT (units (unknown) date) BEDTIME unknown) (unknown) (no (unknown) (unknown) 25 mg orally three (units (unknown) date) times daily for 2 unknown) days, then 25mg twice daily for 2 days, (unknown) (no (unknown) (unknown) 3. Multiple falls (units (unknown) date) secondary to gait unknown) instability (unknown) (no (unknown) (unknown) 4. Paroxysmal (units ( unknown) date) atrial fibrillation unknown) (unknown) (no (unknown) (unknown) 40 mg PO BEDTIME (units (unknown) date) unknown) (unknown) (no (unknown) (unknown) 5. Diabetes (units (un known) date) mellitus, type unknown) unclear (unknown) (no (unknown) (unknown) 6. Hypertension (units (unknown) date) unknown) (unknown) (no (unknown) (unknown) 7. Chronic pain (units (unknown) date) syndrome unknown) (unknown) (no (unknown) (unknown) 8. BPH (units (unkno wn) date) unknown) (unknown) (no (unknown) (unknown) 9. Anemia (units (unkn own) date) unknown) (unknown) (no (unknown) (unknown) ?- repleted with (units (unknown) date) IV, may be unknown) contributing to weakness. (unknown) (no (unknown) (unknown) ABD: Soft, NT/ND, (units (unknown) date) BT present in all 4 unknown) quadrants, no organomegaly or masses (unknown) (no (unknown) (unknown) ADMINISTER 2 TO 10 (units (unknown) date) UNITS UNDER THE unknown) SKIN BEFORE MEALS AND AT BEDTIME (unknown) (no (unknown) (unknown) ADMINISTER 20 (units ( unknown) date) UNITS UNDER THE unknown) SKIN EVERY EVENING (unknown) (no (unknown) (unknown) Age/Sex: 53 / M (units (unknown) date) unknown) (unknown) (no (unknown) (unknown) Alcohol (units (unkno wn) date) intoxication unknown) (unknown) (no (unknown) (unknown) BPH (benign (units (un known) date) prostatic unknown) hyperplasia) (unknown) (no (unknown) (unknown) BUN 12 (units (unkno wn) date) unknown) (unknown) (no (unknown) (unknown) BUN/Creatinine (units (unknown) date) Ratio 20.0 unknown) (unknown) (no (unknown) (unknown) Baso # (Auto) 0 (units (unknown) date) unknown) (unknown) (no (unknown) (unknown) Baso % (Auto) 1.0 (units (unknown) date) unknown) (unknown) (no (unknown) (unknown) Behavioral Health (units (unknown) date) Assess unknown) (unknown) (no (unknown) (unknown) Blood Pressure (units (unknown) date) 127/74 127/74 unknown) 127/85 (unknown) (no (unknown) (unknown) Blood Pressure (units (unknown) date) 127/ unknown) (unknown) (no (unknown) (unknown) CHEST: Respiratory (units (unknown) date) excursions unknown) symmetric, CTAB (unknown) (no (unknown) (unknown) CV: RRR, no M/R/G (units (unknown) date) unknown) (unknown) (no (unknown) (unknown) Calcium 8.8 (units (un known) date) unknown) (unknown) (no (unknown) (unknown) Carbon Dioxide 29 (units (unknown) date) unknown) (unknown) (no (unknown) (unknown) Chief complaint: (units (unknown) date) Trauma unknown) (unknown) (no (unknown) (unknown) Chloride 100 (units (u nknown) date) unknown) (unknown) (no (unknown) (unknown) Chronic low back (units (unknown) date) pain unknown) (unknown) (no (unknown) (unknown) Comment: ETOH (units ( unknown) date) Abuse, SI unknown) (unknown) (no (unknown) (unknown) Comment: Wound (units (unknown) date) care unknown) (unknown) (no (unknown) (unknown) Comment: (units (unkno wn) date) unknown) (unknown) (no (unknown) (unknown) Congestive heart (units (unknown) date) failure unknown) (unknown) (no (unknown) (unknown) Consult to (units (unk nown) date) Dietitian, Adult unknown) Routine (unknown) (no (unknown) (unknown) Consult to Home (units (unknown) date) Health Routine unknown) (unknown) (no (unknown) (unknown) 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 - (units (unknown) date) 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 unknown) Routine (unknown) (no (unknown) (unknown) Consult to (units (unk nown) date) Occupational unknown) Therapy Evaluate + Treat (unknown) (no (unknown) (unknown) Consult to (units (unk nown) date) Physical Therapy unknown) Evaluate + Treat (unknown) (no (unknown) (unknown) Consults: (units (unkn own) date) unknown) (unknown) (no (unknown) (unknown) Continue Flomax (units (unknown) date) unknown) (unknown) (no (unknown) (unknown) Continued (units (unkn own) date) unknown) (unknown) (no (unknown) (unknown) Creatinine 0.60 L (units (unknown) date) unknown) (unknown) (no (unknown) (unknown) : 1970 (units (unknown) date) Acct:[id number] unknown) (unknown) (no (unknown) (unknown) Date Patient Seen: (units (unknown) date) 01/14/23 unknown) (unknown) (no (unknown) (unknown) Date of Service: (units (unknown) date) 01/14/23 unknown) (unknown) (no (unknown) (unknown) Date of admission: (units (unknown) date) unknown) (unknown) (no (unknown) (unknown) Deep Vein (units (unkn own) date) Thrombosis/Pulmonar unknown) y Embolism Present on Admission: No (unknown) (no (unknown) (unknown) Discharge (units (unkn own) date) Date/Time: 01/19/23 unknown) 11:08 (unknown) (no (unknown) (unknown) Discharge Date: (units (unknown) date) 01/19/23 unknown) (unknown) (no (unknown) (unknown) Discharge (units (unkn own) date) Diagnosis: unknown) (unknown) (no (unknown) (unknown) Discharge Plan (units (unknown) date) unknown) (unknown) (no (unknown) (unknown) Discharge (units (unkn own) date) Providers unknown) (unknown) (no (unknown) (unknown) Discharge Summary (units (unknown) date) unknown) (unknown) (no (unknown) (unknown) Discharge orders + (units (unknown) date) Medications unknown) (unknown) (no (unknown) (unknown) Discharge (units (unkn own) date) provider: unknown) (unknown) (no (unknown) (unknown) Does have prior (units (unknown) date) history of DT, unknown) symptoms today are consistent with withdrawal (unknown) (no (unknown) (unknown) EXTR: warm, well (units (unknown) date) perfused, no C/C/E, unknown) scattered bruising noted to his arms, (unknown) (no (unknown) (unknown) Eos # (Auto) 300 (units (unknown) date) unknown) (unknown) (no (unknown) (unknown) Eos % (Auto) 5.2 H (units (unknown) date) unknown) (unknown) (no (unknown) (unknown) Essential (units (unkn own) date) hypertension unknown) (unknown) (no (unknown) (unknown) Estimated GFR > 60 (units (unknown) date) unknown) (unknown) (no (unknown) (unknown) Exam Narrative: (units (unknown) date) unknown) (unknown) (no (unknown) (unknown) Exam (units (unkno wn) date) unknown) (unknown) (no (unknown) (unknown) Family History (units (unknown) date) (Updated 01/15/23 @ unknown) 02:24 by SOMMER Chairez) (unknown) (no (unknown) (unknown) Father Diabetes (units (unknown) date) mellitus unknown) (unknown) (no (unknown) (unknown) GEN: Alert and (units (unknown) date) oriented x 3, no unknown) acute distress (unknown) (no (unknown) (unknown) Glucose 139 H (units ( unknown) date) unknown) (unknown) (no (unknown) (unknown) HEENT:NC, Face (units (unknown) date) symmetric unknown) (unknown) (no (unknown) (unknown) HLD, BPH, (units (unkno wn) date) insulin-dependent unknown) diabetes and chronic low back pain tx with InterStim (unknown) (no (unknown) (unknown) Hct 36.0 L (units (unk nown) date) unknown) (unknown) (no (unknown) (unknown) Hgb 12.1 L (units (unk nown) date) unknown) (unknown) (no (unknown) (unknown) History of Present (units (unknown) date) Illness unknown) (unknown) (no (unknown) (unknown) History of (units (unk nown) date) shoulder surgery unknown) (unknown) (no (unknown) (unknown) Hospital Course (units (unknown) date) unknown) (unknown) (no (unknown) (unknown) Hyperlipidemia due (units (unknown) date) to type 1 diabetes unknown) mellitus (unknown) (no (unknown) (unknown) [facility] (units (unknown) date) [address] unknown) [place] [address] (unknown) (no (unknown) (unknown) Laboratory Results (units (unknown) date) - last 24 hr unknown) (unknown) (no (unknown) (unknown) Labs (units (unkno wn) date) unknown) (unknown) (no (unknown) (unknown) Labs: (units (unkno wn) date) unknown) (unknown) (no (unknown) (unknown) 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 LFTs are presently improving.? (unknown) (no (unknown) (unknown) Lymph # (Auto) (units (unknown) date) 1500 unknown) (unknown) (no (unknown) (unknown) Lymph % (Auto) (units (unknown) date) 30.8 unknown) (unknown) (no (unknown) (unknown) MCH 32.5 (units (unkno wn) date) unknown) (unknown) (no (unknown) (unknown) MCHC 33.6 (units (unkn own) date) unknown) (unknown) (no (unknown) (unknown) MCV 96.6 (units (unkno wn) date) unknown) (unknown) (no (unknown) (unknown) GEOLOGY INSTRUCTOR Consult needed (units (unknown) date) for:: Substance unknown) Abuse Assess (unknown) (no (unknown) (unknown) Magnesium 1.4 L (units (unknown) date) unknown) (unknown) (no (unknown) (unknown) Luca Dillard, (units (unknown) date) DO unknown) (unknown) (no (unknown) (unknown) Medical History (units (unknown) date) (Reviewed 01/15/23 unknown) @ 02:22 by SOMMER Chairez) (unknown) (no (unknown) (unknown) Octavio Romo is a (units (unknown) date) 53-year-old male unknown) with known history of alcohol abuse, HTN, (unknown) (no (unknown) (unknown) Mild, Will (units (unk nown) date) monitor. unknown) (unknown) (no (unknown) (unknown) Pender # (Auto) 400 (units (unknown) date) unknown) (unknown) (no (unknown) (unknown) Pender % (Auto) 7.7 (units (unknown) date) unknown) (unknown) (no (unknown) (unknown) Mother (units (unknown) date) Diabetes mellitus unknown) (unknown) (no (unknown) (unknown) Multiple falls (units (unknown) date) unknown) (unknown) (no (unknown) (unknown) NEURO: Alert and (units (unknown) date) oriented x 3, mild unknown) tremulousness. (unknown) (no (unknown) (unknown) Narrative (units (unkn own) date) unknown) (unknown) (no (unknown) (unknown) Narrative: (units (unk nown) date) unknown) (unknown) (no (unknown) (unknown) Neut # (Auto) 2700 (units (unknown) date) unknown) (unknown) (no (unknown) (unknown) Neut % (Auto) 55.3 (units (unknown) date) unknown) (unknown) (no (unknown) (unknown) New (units (unkno wn) date) unknown) (unknown) (no (unknown) (unknown) Normocytic.? (units (u nknown) date) Likely secondary to unknown) alcohol-induced marrow suppression. (unknown) (no (unknown) (unknown) Objective (units (unkn own) date) unknown) (unknown) (no (unknown) (unknown) Oxygen Delivery (units (unknown) date) Method Room Air unknown) (unknown) (no (unknown) (unknown) Oxygen Flow Rate 0 (units (unknown) date) 0 unknown) (unknown) (no (unknown) (unknown) Oxygen Flow Rate 0 (units (unknown) date) unknown) (unknown) (no (unknown) (unknown) Oxygen Flow Rate (units (unknown) date) unknown) (unknown) (no (unknown) (unknown) PFSH (units (unkno wn) date) unknown) (unknown) (no (unknown) (unknown) Patient Comments: (units (unknown) date) unknown) (unknown) (no (unknown) (unknown) Patient (units (unkno wn) date) Disposition: Home unknown) (unknown) (no (unknown) (unknown) Patient continues (units (unknown) date) on Lantus and unknown) sliding scale. Certainly he could have insulin (unknown) (no (unknown) (unknown) Patient has a (units ( unknown) date) healing laceration unknown) to his right forehead, bruises to his arms, as (unknown) (no (unknown) (unknown) Patient has a (units (u nknown) date) spinal stimulator unknown) in place as well as an intrathecal hydromorphone (unknown) (no (unknown) (unknown) Patient has had (units (unknown) date) multiple prior unknown) attempts from what his brother told me.? No plan (unknown) (no (unknown) (unknown) Patient is on (units ( unknown) date) lisinopril and unknown) propranolol.? He did develop some hypotension (unknown) (no (unknown) (unknown) Patient was noted (units (unknown) date) to have an episode unknown) of AFib in the emergency department for (unknown) (no (unknown) (unknown) Patient: (units (unkno wn) date) Octavio Romo unknown) MR#: [id number] (unknown) (no (unknown) (unknown) Physician (units (unkn own) date) Instructions: unknown) Evaluate and Treat (unknown) (no (unknown) (unknown) Physician (units (unkn own) date) Instructions: unknown) Evaluate and treat (unknown) (no (unknown) (unknown) Plt Count 321 (units ( unknown) date) unknown) (unknown) (no (unknown) (unknown) Potassium 3.9 (units ( unknown) date) unknown) (unknown) (no (unknown) (unknown) Prescriptions: (units (unknown) date) unknown) (unknown) (no (unknown) (unknown) Provider (units (unkno wn) date) unknown) (unknown) (no (unknown) (unknown) Provider: (units (unkn own) date) Luca Dilladr unknown) D.O. (unknown) (no (unknown) (unknown) Pulse Oximetry 96 (units (unknown) date) 95 unknown) (unknown) (no (unknown) (unknown) Pulse Oximetry (units (unknown) date) unknown) (unknown) (no (unknown) (unknown) Pulse Rate 60 60 (units (unknown) date) 68 unknown) (unknown) (no (unknown) (unknown) Pulse Rate (units (unk nown) date) unknown) (unknown) (no (unknown) (unknown) Quality (units (unkno wn) date) unknown) (unknown) (no (unknown) (unknown) RBC 3.73 L (units (unk nown) date) unknown) (unknown) (no (unknown) (unknown) RDW 13.4 (units (unkno wn) date) unknown) (unknown) (no (unknown) (unknown) Reason For Exam: (units (unknown) date) [facility] unknown) with [facility] program (unknown) (no (unknown) (unknown) Reason For Exam: (units (unknown) date) DM, ETOH abuse unknown) (unknown) (no (unknown) (unknown) Respiratory Rate (units (unknown) date) 17 17 18 unknown) (unknown) (no (unknown) (unknown) Respiratory Rate (units (unknown) date) unknown) (unknown) (no (unknown) (unknown) Rx Instructions: (units (unknown) date) unknown) (unknown) (no (unknown) (unknown) SKIN: warm and dry, (units (unknown) date) no rash, large dark unknown) bruise noted round his gluteal folds and (unknown) (no (unknown) (unknown) See Rx (units (unkno wn) date) Instructions .ROUTE unknown) .COMPLEX Qty: 12 0RF (unknown) (no (unknown) (unknown) See Rx (units (unkno wn) date) Instructions .ROUTE unknown) .COMPLEX (unknown) (no (unknown) (unknown) Signed By: (units (unk nown) date) unknown) (unknown) (no (unknown) (unknown) Smoking Status: (units (unknown) date) Never smoker unknown) (unknown) (no (unknown) (unknown) Social History (units (unknown) date) (Updated 01/15/23 @ unknown) 02:23 by DOUG Chairez) (unknown) (no (unknown) (unknown) Sodium 137 (units (unk nown) date) unknown) (unknown) (no (unknown) (unknown) Stand Alone Forms: (units (unknown) date) Patient Portal/API, unknown) Stroke Signs + Symptoms (unknown) (no (unknown) (unknown) Summary (units (unkno wn) date) unknown) (unknown) (no (unknown) (unknown) Surgical History (units (unknown) date) (Reviewed 01/15/23 unknown) @ 02:22 by [facility]) (unknown) (no (unknown) (unknown) TAKE 1 CAPSULE BY (units (unknown) date) MOUTH DAILY unknown) (unknown) (no (unknown) (unknown) TAKE 1 TABLET BY (units (unknown) date) MOUTH EVERY EVENING unknown) (unknown) (no (unknown) (unknown) TAKE 1 TABLET BY (units (unknown) date) MOUTH EVERY MORNING unknown) (unknown) (no (unknown) (unknown) Take 1 tablet by (units (unknown) date) mouth twice a day unknown) (unknown) (no (unknown) (unknown) Temperature 97.4 F (units (unknown) date) L 97.3 F L unknown) (unknown) (no (unknown) (unknown) Temperature (units (un known) date) unknown) (unknown) (no (unknown) (unknown) Time Patient Seen: (units (unknown) date) 22:42 unknown) (unknown) (no (unknown) (unknown) Time Spent with (units (unknown) date) Patient unknown) (unknown) (no (unknown) (unknown) Time spent: (units (un known) date) Greater than 30 unknown) minutes (unknown) (no (unknown) (unknown) VTE (units (unkno wn) date) unknown) (unknown) (no (unknown) (unknown) Visit (units (unkno wn) date) Report/Discharge unknown) Packet (unknown) (no (unknown) (unknown) Vital Signs (units (un known) date) unknown) (unknown) (no (unknown) (unknown) WBC 4.9 (units (unkno wn) date) unknown) (unknown) (no (unknown) (unknown) When asked on (units ( unknown) date) admit regarding unknown) code status patient requested to be a full code, (unknown) (no (unknown) (unknown) Will monitor. (units ( unknown) date) unknown) (unknown) (no (unknown) (unknown) [Embedded Image (units (unknown) date) Not Available] unknown) (unknown) (no (unknown) (unknown) admit patient is (units (unknown) date) unable to state unknown) where he is unable to recall how or when he (unknown) (no (unknown) (unknown) alcohol intake: (units (unknown) date) current unknown) (unknown) (no (unknown) (unknown) alone. 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 PT and OT evaulated. (unknown) (no (unknown) (unknown) and denied suicide (units (unknown) date) ideation. patient unknown) is hemodynamically stable pleasant (unknown) (no (unknown) (unknown) and this has not (units (unknown) date) recurred. TTE was unknown) unremarkable. (unknown) (no (unknown) (unknown) at this time but (units (unknown) date) he notes he does unknown) not feel safe at home.? Would likely benefit (unknown) (no (unknown) (unknown) atorvastatin 40 mg (units (unknown) date) tablet unknown) (unknown) (no (unknown) (unknown) attempted librium (units (unknown) date) previously but BP unknown) dipped, but may have been due to medications (unknown) (no (unknown) (unknown) attempts to (units (un known) date) transfer patient unknown) for detox, but was refused due to hyperglycemia, (unknown) (no (unknown) (unknown) been called to the (units (unknown) date) patient's home unknown) several times over the last few days, he was (unknown) (no (unknown) (unknown) bruising left (units (u nknown) date) abdomen, upper abd, unknown) chest, scabbed abrasion to left anterior lower (unknown) (no (unknown) (unknown) candidate for (units ( unknown) date) anticoagulation due unknown) to his alcohol dependence and frequent falls (unknown) (no (unknown) (unknown) chlordiazepoxide (units (unknown) date) HCl 25 mg Capsule unknown) (unknown) (no (unknown) (unknown) continue CIWA (units ( unknown) date) protocol with prn unknown) benzos. (unknown) (no (unknown) (unknown) continue prn (units (u nknown) date) repletion unknown) (unknown) (no (unknown) (unknown) converses easily (units (unknown) date) but is confused. unknown) WBC 4.3, H+H 12.3/36.9, initial glucose 344, (unknown) (no (unknown) (unknown) couple of weeks (units (unknown) date) for refill. unknown) (unknown) (no (unknown) (unknown) covered in a (units (u nknown) date) variety of multiple unknown) injuries in varying degrees healing, a scabbed (unknown) (no (unknown) (unknown) dependence.? A bit (units (unknown) date) unclear on when he unknown) was diagnosed and there is not any (unknown) (no (unknown) (unknown) dependent diabetes (units (unknown) date) secondary to unknown) pancreatic insufficiency related to his alcohol (unknown) (no (unknown) (unknown) dextroamphetamine- (units (unknown) date) amphetamine 20 mg unknown) tablet (unknown) (no (unknown) (unknown) did not answer.? (units (unknown) date) Patient was seen unknown) and evaluated by GEOLOGY INSTRUCTOR in the ED made multiple (unknown) (no (unknown) (unknown) elevated QTC on (units (unknown) date) EKG, and unknown) encephalopathy. Unable to obtain accurate HPI, ROS due (unknown) (no (unknown) (unknown) extremities well.? (units (unknown) date) Is conversant but unknown) confused.? Patient states he drinks at (unknown) (no (unknown) (unknown) extremity, (units (unk nown) date) significant deep unknown) bruising to lower coccyx area. Patient denies (unknown) (no (unknown) (unknown) fall, head injury, (units (unknown) date) atrial unknown) fibrillation, encephalopathy, ETOH abuse/intoxication, (unknown) (no (unknown) (unknown) fingersticks, (units ( unknown) date) sliding scale, and unknown) Lantus. (unknown) (no (unknown) (unknown) for RVR. Now (units (u nknown) date) increased back to unknown) 25 TID. With shakiness thought of increasing but (unknown) (no (unknown) (unknown) found down this (units (unknown) date) evening on the unknown) bathroom floor with broken glass perhaps broken (unknown) (no (unknown) (unknown) from a program (units (unknown) date) that does dual unknown) diagnosis.? GEOLOGY INSTRUCTOR met with the patient today and (unknown) (no (unknown) (unknown) furosemide 20 mg (units (unknown) date) tablet unknown) (unknown) (no (unknown) (unknown) head CT negative, (units (unknown) date) CT of unknown) abdomen/pelvis multiple remote left rib fractures, left (unknown) (no (unknown) (unknown) himself (units (unkno wn) date) potentially in unknown) [place] (unknown) (no (unknown) (unknown) household members: (units (unknown) date) none unknown) (unknown) (no (unknown) (unknown) hyperglycemia. (units (unknown) date) unknown) (unknown) (no (unknown) (unknown) information with (units (unknown) date) regard to his unknown) diabetes in the medical record.? We will continue (unknown) (no (unknown) (unknown) inpatient transfer (units (unknown) date) but this is hightly unknown) unlikely despite patient and care (unknown) (no (unknown) (unknown) insulin glargine (units (unknown) date) [Lantus Solostar unknown) U-100 Insulin] 100 unit/mL (3 mL) insulin (unknown) (no (unknown) (unknown) insulin lispro (units (unknown) date) [Humalog KwikPen unknown) Insulin] 100 unit/mL insulin pen (unknown) (no (unknown) (unknown) kill himself when (units (unknown) date) asked why he did unknown) not answer'? When asked if he has a plan he (unknown) (no (unknown) (unknown) least a 5th of (units (unknown) date) Vodka daily, denies unknown) tobacco or illicit.? Patient is unable to (unknown) (no (unknown) (unknown) losartan 100 mg (units (unknown) date) tablet unknown) (unknown) (no (unknown) (unknown) management (units (unk nown) date) searching multiple unknown) facilities. Complicated due to patient's chronic (unknown) (no (unknown) (unknown) medical conditions (units (unknown) date) including unknown) stimulator and hydromorphone pump. (unknown) (no (unknown) (unknown) mirror and blood (units (unknown) date) at the scene. unknown) Patient is confused, but redirectable. During (unknown) (no (unknown) (unknown) negative, tox (units ( unknown) date) screen is positive unknown) for opiates and benzos, initial ETOH 308, (unknown) (no (unknown) (unknown) obtain these (units (u nknown) date) injuries in the unknown) events that led him to the hospital today. He is (unknown) (no (unknown) (unknown) pain, no shortness (units (unknown) date) of breath, no GI or unknown) urinary symptoms.? He is moving all his (unknown) (no (unknown) (unknown) pen (units (unkno wn) date) unknown) (unknown) (no (unknown) (unknown) propranolol 20 mg (units (unknown) date) tablet unknown) (unknown) (no (unknown) (unknown) pump.? He reports (units (unknown) date) the pump was filled unknown) every 2 months and he is not due for a (unknown) (no (unknown) (unknown) recall what his (units (unknown) date) medications are he unknown) believes he is on insulins but he has no idea (unknown) (no (unknown) (unknown) repeat 254, AST (units (unknown) date) 87, ALT 88, unknown) alk-phos 144, UA negative, lactate negative, lipase (unknown) (no (unknown) (unknown) repeat 91. COVID (units (unknown) date) negative. EKG sinus unknown) rhythm rate 72 QTC 499, without ST or T (unknown) (no (unknown) (unknown) right forearm.? (units (unknown) date) These all have unknown) occurred when he has been intoxicated and home (unknown) (no (unknown) (unknown) sacrum (units (unkno wn) date) unknown) (unknown) (no (unknown) (unknown) scapula fracture, (units (unknown) date) and L1/L2 unknown) transverse process fracture. Patient admitted for (unknown) (no (unknown) (unknown) still. (units (unkno wn) date) unknown) (unknown) (no (unknown) (unknown) stimulator in back (units (unknown) date) lumbar + Dilaudid unknown) pain pump in abdomen.? EMS had apparently (unknown) (no (unknown) (unknown) superficial lee (units (unknown) date) noted to his right unknown) forearm (unknown) (no (unknown) (unknown) superficial (units (un known) date) laceration over his unknown) right forehead, small burn right forearm, (unknown) (no (unknown) (unknown) symptoms are still (units (unknown) date) fairly mild and unknown) will keep same dose today. (unknown) (no (unknown) (unknown) tamsulosin 0.4 mg (units (unknown) date) capsule unknown) (unknown) (no (unknown) (unknown) then 25mg once (units (unknown) date) daily for 2 days unknown) then stop (unknown) (no (unknown) (unknown) to encephalopathy. (units (unknown) date) ED reported patient unknown) had an episode of atrial fibrillation (unknown) (no (unknown) (unknown) to kill himself to (units (unknown) date) the medics and when unknown) asked in ED he ' stated he did want to (unknown) (no (unknown) (unknown) wave changes. (units ( unknown) date) Chest x-ray unknown) negative, C-spine negative, pelvic x-ray negative, (unknown) (no (unknown) (unknown) well as his (units (un known) date) gluteal unknown) area/sacrum.? He also has some superficial lee to his (unknown) (no (unknown) (unknown) when or if he is (units (unknown) date) taken his unknown) medication. He did make statements that he wanted (unknown) (no (unknown) (unknown) which he was given (units (unknown) date) a dose of unknown) metoprolol.? CHADS2 Vasc score is 2, consistent (unknown) (no (unknown) (unknown) which metoprolol (units (unknown) date) was given and unknown) quickly resolved. (unknown) (no (unknown) (unknown) will work on (units (u nknown) date) possible unknown) resources.? He would benefit most from inpatient to (unknown) (no (unknown) (unknown) with a 2.2% stroke (units (unknown) date) risk annually.? unknown) Unfortunately, he would be a very poor (unknown) (no (unknown) (unknown) yesterday, with (units (unknown) date) librium noted above unknown) will continue to hold today. Result panel 271 (unknown) (no (unknown) (unknown) (no value) (units (unk nown) date) unknown) (unknown) (no (unknown) (unknown) (past 8 hours): (units (unknown) date) unknown) (unknown) (no (unknown) (unknown) Discharges (units ( unknown) date) patient from unknown) system. (unknown) (no (unknown) (unknown) -discharged on (units (unknown) date) librium 25mg TID unknown) with taper (unknown) (no (unknown) (unknown) -no accepting (units ( unknown) date) facilities with unknown) pain pump, patient will explore inpatient options (unknown) (no (unknown) (unknown) -resumed BP meds (units (unknown) date) on discharge unknown) (unknown) (no (unknown) (unknown) 0.4 mg PO DAILY (units (unknown) date) unknown) (unknown) (no (unknown) (unknown) [id number] (units (unkno wn) date) unknown) (unknown) (no (unknown) (unknown) 03:30 01/19/23 (units (unknown) date) unknown) (unknown) (no (unknown) (unknown) 03:33 01/19/23 (units (unknown) date) unknown) (unknown) (no (unknown) (unknown) 01/14/23 22:12 (units (unknown) date) unknown) (unknown) (no (unknown) (unknown) 01/14/23 22:26 (units (unknown) date) unknown) (unknown) (no (unknown) (unknown) 01/14/23 22:37 (units (unknown) date) unknown) (unknown) (no (unknown) (unknown) 01/14/23 22:38 (units (unknown) date) unknown) (unknown) (no (unknown) (unknown) 01/15/23 18:02 (units (unknown) date) unknown) (unknown) (no (unknown) (unknown) 01/16/23 12:41 (units (unknown) date) unknown) (unknown) (no (unknown) (unknown) 01/16/23 14:55 (units (unknown) date) unknown) (unknown) (no (unknown) (unknown) 01/19/23 01/19/23 (units (unknown) date) unknown) (unknown) (no (unknown) (unknown) 01/19/23 06:23 (units (unknown) date) unknown) (unknown) (no (unknown) (unknown) 01/19/23 (units (unkno wn) date) unknown) (unknown) (no (unknown) (unknown) 06:23 06:23 (units (un known) date) unknown) (unknown) (no (unknown) (unknown) 07:00 (units (unkno wn) date) unknown) (unknown) (no (unknown) (unknown) 08:42 (units (unkno wn) date) unknown) (unknown) (no (unknown) (unknown) 1. Alcohol (units (unk nown) date) dependence with unknown) withdrawal (unknown) (no (unknown) (unknown) 10. Hyponatremia (units (unknown) date) unknown) (unknown) (no (unknown) (unknown) 100 mg PO DAILY (units (unknown) date) unknown) (unknown) (no (unknown) (unknown) 11. Hypomagnesemia (units (unknown) date) unknown) (unknown) (no (unknown) (unknown) 12. Transaminitis (units (unknown) date) unknown) (unknown) (no (unknown) (unknown) 13. hypomagnesemia (units (unknown) date) unknown) (unknown) (no (unknown) (unknown) 2. Suicidal (units (un known) date) ideation unknown) (unknown) (no (unknown) (unknown) 20 mg PO BID (units (u nknown) date) unknown) (unknown) (no (unknown) (unknown) 20 mg PO DAILY (units (unknown) date) unknown) (unknown) (no (unknown) (unknown) 20 unit SUBCUT (units (unknown) date) BEDTIME unknown) (unknown) (no (unknown) (unknown) 25 mg orally three (units (unknown) date) times daily for 2 unknown) days, then 25mg twice daily for 2 days, (unknown) (no (unknown) (unknown) 3. Multiple falls (units (unknown) date) secondary to gait unknown) instability (unknown) (no (unknown) (unknown) 4. Paroxysmal (units ( unknown) date) atrial fibrillation unknown) (unknown) (no (unknown) (unknown) 40 mg PO BEDTIME (units (unknown) date) unknown) (unknown) (no (unknown) (unknown) 5 days and able to (units (unknown) date) tolerate with unknown) librium alone. Patient had suicidal ideation (unknown) (no (unknown) (unknown) 5. Diabetes (units (un known) date) mellitus, type unknown) unclear (unknown) (no (unknown) (unknown) 6. Hypertension (units (unknown) date) unknown) (unknown) (no (unknown) (unknown) 7. Chronic pain (units (unknown) date) syndrome unknown) (unknown) (no (unknown) (unknown) 8. BPH (units (unkno wn) date) unknown) (unknown) (no (unknown) (unknown) 9. Anemia (units (unkn own) date) unknown) (unknown) (no (unknown) (unknown) ?- repleted with (units (unknown) date) IV, may be unknown) contributing to weakness. (unknown) (no (unknown) (unknown) ABD: Soft, NT/ND, (units (unknown) date) BT present in all 4 unknown) quadrants, no organomegaly or masses (unknown) (no (unknown) (unknown) ADMINISTER 2 TO 10 (units (unknown) date) UNITS UNDER THE unknown) SKIN BEFORE MEALS AND AT BEDTIME (unknown) (no (unknown) (unknown) ADMINISTER 20 (units ( unknown) date) UNITS UNDER THE unknown) SKIN EVERY EVENING (unknown) (no (unknown) (unknown) Admitted for (units (u nknown) date) alcohol withdrawals unknown) and received ativan and librium. Improved over (unknown) (no (unknown) (unknown) Age/Sex: 53 / M (units (unknown) date) unknown) (unknown) (no (unknown) (unknown) Alcohol (units (unkno wn) date) intoxication unknown) (unknown) (no (unknown) (unknown) BPH (benign (units (un known) date) prostatic unknown) hyperplasia) (unknown) (no (unknown) (unknown) BUN 12 (units (unkno wn) date) unknown) (unknown) (no (unknown) (unknown) BUN/Creatinine (units (unknown) date) Ratio 20.0 unknown) (unknown) (no (unknown) (unknown) Baso # (Auto) 0 (units (unknown) date) unknown) (unknown) (no (unknown) (unknown) Baso % (Auto) 1.0 (units (unknown) date) unknown) (unknown) (no (unknown) (unknown) Behavioral Health (units (unknown) date) Assess unknown) (unknown) (no (unknown) (unknown) Blood Pressure (units (unknown) date) 127/74 127/74 unknown) 127/85 (unknown) (no (unknown) (unknown) Blood Pressure (units (unknown) date) 127/85 unknown) (unknown) (no (unknown) (unknown) CHEST: Respiratory (units (unknown) date) excursions unknown) symmetric, CTAB (unknown) (no (unknown) (unknown) CV: RRR, no M/R/G (units (unknown) date) unknown) (unknown) (no (unknown) (unknown) Calcium 8.8 (units (un known) date) unknown) (unknown) (no (unknown) (unknown) Carbon Dioxide 29 (units (unknown) date) unknown) (unknown) (no (unknown) (unknown) Chief complaint: (units (unknown) date) Trauma unknown) (unknown) (no (unknown) (unknown) Chloride 100 (units (u nknown) date) unknown) (unknown) (no (unknown) (unknown) Chronic low back (units (unknown) date) pain unknown) (unknown) (no (unknown) (unknown) Comment: ETOH (units ( unknown) date) Abuse, SI unknown) (unknown) (no (unknown) (unknown) Comment: Wound (units (unknown) date) care unknown) (unknown) (no (unknown) (unknown) Comment: (units (unkno wn) date) unknown) (unknown) (no (unknown) (unknown) Congestive heart (units (unknown) date) failure unknown) (unknown) (no (unknown) (unknown) Consult to (units (unk nown) date) Dietitian, Adult unknown) Routine (unknown) (no (unknown) (unknown) Consult to Home (units (unknown) date) Health Routine unknown) (unknown) (no (unknown) (unknown) 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 - (units (unknown) date) 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 unknown) Routine (unknown) (no (unknown) (unknown) Consult to (units (unk nown) date) Occupational unknown) Therapy Evaluate + Treat (unknown) (no (unknown) (unknown) Consult to (units (unk nown) date) Physical Therapy unknown) Evaluate + Treat (unknown) (no (unknown) (unknown) Consults: (units (unkn own) date) unknown) (unknown) (no (unknown) (unknown) Continue Flomax (units (unknown) date) unknown) (unknown) (no (unknown) (unknown) Continued (units (unkn own) date) unknown) (unknown) (no (unknown) (unknown) Creatinine 0.60 L (units (unknown) date) unknown) (unknown) (no (unknown) (unknown) : 1970 (units (unknown) date) Acct:[id number] unknown) (unknown) (no (unknown) (unknown) Date Patient Seen: (units (unknown) date) 01/14/23 unknown) (unknown) (no (unknown) (unknown) Date of Service: (units (unknown) date) 01/14/23 unknown) (unknown) (no (unknown) (unknown) Date of admission: (units (unknown) date) unknown) (unknown) (no (unknown) (unknown) Deep Vein (units (unkn own) date) Thrombosis/Pulmonar unknown) y Embolism Present on Admission: No (unknown) (no (unknown) (unknown) Discharge (units (unkn own) date) Date/Time: 01/19/23 unknown) 11:08 (unknown) (no (unknown) (unknown) Discharge Date: (units (unknown) date) 01/19/23 unknown) (unknown) (no (unknown) (unknown) Discharge (units (unkn own) date) Diagnosis: unknown) (unknown) (no (unknown) (unknown) Discharge Plan (units (unknown) date) unknown) (unknown) (no (unknown) (unknown) Discharge (units (unkn own) date) Providers unknown) (unknown) (no (unknown) (unknown) Discharge Summary (units (unknown) date) unknown) (unknown) (no (unknown) (unknown) Discharge orders + (units (unknown) date) Medications unknown) (unknown) (no (unknown) (unknown) Discharge (units (unkn own) date) provider: unknown) (unknown) (no (unknown) (unknown) Does have prior (units (unknown) date) history of DT, unknown) symptoms today are consistent with withdrawal (unknown) (no (unknown) (unknown) EXTR: warm, well (units (unknown) date) perfused, no C/C/E, unknown) scattered bruising noted to his arms, (unknown) (no (unknown) (unknown) Eos # (Auto) 300 (units (unknown) date) unknown) (unknown) (no (unknown) (unknown) Eos % (Auto) 5.2 H (units (unknown) date) unknown) (unknown) (no (unknown) (unknown) Essential (units (unkn own) date) hypertension unknown) (unknown) (no (unknown) (unknown) Estimated GFR > 60 (units (unknown) date) unknown) (unknown) (no (unknown) (unknown) Exam Narrative: (units (unknown) date) unknown) (unknown) (no (unknown) (unknown) Exam (units (unkno wn) date) unknown) (unknown) (no (unknown) (unknown) Family History (units (unknown) date) (Updated 01/15/23 @ unknown) 02:24 by Genesis Dunn, [facility]) (unknown) (no (unknown) (unknown) Father Diabetes (units (unknown) date) mellitus unknown) (unknown) (no (unknown) (unknown) GEN: Alert and (units (unknown) date) oriented x 3, no unknown) acute distress (unknown) (no (unknown) (unknown) Glucose 139 H (units ( unknown) date) unknown) (unknown) (no (unknown) (unknown) HEENT:NC, Face (units (unknown) date) symmetric unknown) (unknown) (no (unknown) (unknown) HLD, BPH, (units (unkno wn) date) insulin-dependent unknown) diabetes and chronic low back pain tx with InterStim (unknown) (no (unknown) (unknown) Hct 36.0 L (units (unk nown) date) unknown) (unknown) (no (unknown) (unknown) Hgb 12.1 L (units (unk nown) date) unknown) (unknown) (no (unknown) (unknown) History of Present (units (unknown) date) Illness unknown) (unknown) (no (unknown) (unknown) History of (units (unk nown) date) shoulder surgery unknown) (unknown) (no (unknown) (unknown) Hospital Course (units (unknown) date) unknown) (unknown) (no (unknown) (unknown) Hospital Course: (units (unknown) date) unknown) (unknown) (no (unknown) (unknown) Hyperlipidemia due (units (unknown) date) to type 1 diabetes unknown) mellitus (unknown) (no (unknown) (unknown) [facility] (units (unknown) date) [address] [place] [address] unknown) [place] [address] (unknown) (no (unknown) (unknown) Laboratory Results (units (unknown) date) - last 24 hr unknown) (unknown) (no (unknown) (unknown) Labs (units (unkno wn) date) unknown) (unknown) (no (unknown) (unknown) Labs: (units (unkno wn) date) unknown) (unknown) (no (unknown) (unknown) 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 LFTs are presently improving.? (unknown) (no (unknown) (unknown) Lymph # (Auto) (units (unknown) date) 1500 unknown) (unknown) (no (unknown) (unknown) Lymph % (Auto) (units (unknown) date) 30.8 unknown) (unknown) (no (unknown) (unknown) MCH 32.5 (units (unkno wn) date) unknown) (unknown) (no (unknown) (unknown) MCHC 33.6 (units (unkn own) date) unknown) (unknown) (no (unknown) (unknown) MCV 96.6 (units (unkno wn) date) unknown) (unknown) (no (unknown) (unknown) GEOLOGY INSTRUCTOR Consult needed (units (unknown) date) for:: Substance unknown) Abuse Assess (unknown) (no (unknown) (unknown) Magnesium 1.4 L (units (unknown) date) unknown) (unknown) (no (unknown) (unknown) Luca Dillard, (units (unknown) date) DO unknown) (unknown) (no (unknown) (unknown) Medical History (units (unknown) date) (Reviewed 01/15/23 unknown) @ 02:22 by Genesis Dunn, 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) (unknown) (no (unknown) (unknown) Octavio Romo is a (units (unknown) date) 53-year-old male unknown) with known history of alcohol abuse, HTN, (unknown) (no (unknown) (unknown) Mild, Will (units (unk nown) date) monitor. unknown) (unknown) (no (unknown) (unknown) Pender # (Auto) 400 (units (unknown) date) unknown) (unknown) (no (unknown) (unknown) Pender % (Auto) 7.7 (units (unknown) date) unknown) (unknown) (no (unknown) (unknown) Mother (units (unknown) date) Diabetes mellitus unknown) (unknown) (no (unknown) (unknown) Multiple falls (units (unknown) date) unknown) (unknown) (no (unknown) (unknown) NEURO: Alert and (units (unknown) date) oriented x 3, mild unknown) tremulousness. (unknown) (no (unknown) (unknown) Narrative (units (unkn own) date) unknown) (unknown) (no (unknown) (unknown) Narrative: (units (unk nown) date) unknown) (unknown) (no (unknown) (unknown) Neut # (Auto) 2700 (units (unknown) date) unknown) (unknown) (no (unknown) (unknown) Neut % (Auto) 55.3 (units (unknown) date) unknown) (unknown) (no (unknown) (unknown) New (units (unkno wn) date) unknown) (unknown) (no (unknown) (unknown) Normocytic.? (units (u nknown) date) Likely secondary to unknown) alcohol-induced marrow suppression. (unknown) (no (unknown) (unknown) Objective (units (unkn own) date) unknown) (unknown) (no (unknown) (unknown) Oxygen Delivery (units (unknown) date) Method Room Air unknown) (unknown) (no (unknown) (unknown) Oxygen Flow Rate 0 (units (unknown) date) 0 unknown) (unknown) (no (unknown) (unknown) Oxygen Flow Rate 0 (units (unknown) date) unknown) (unknown) (no (unknown) (unknown) Oxygen Flow Rate (units (unknown) date) unknown) (unknown) (no (unknown) (unknown) PFSH (units (unkno wn) date) unknown) (unknown) (no (unknown) (unknown) Patient Comments: (units (unknown) date) unknown) (unknown) (no (unknown) (unknown) Patient (units (unkno wn) date) Disposition: Home unknown) (unknown) (no (unknown) (unknown) Patient continues (units (unknown) date) on Lantus and unknown) sliding scale. Certainly he could have insulin (unknown) (no (unknown) (unknown) Patient has a (units ( unknown) date) healing laceration unknown) to his right forehead, bruises to his arms, as (unknown) (no (unknown) (unknown) Patient has a (units (u nknown) date) spinal stimulator unknown) in place as well as an intrathecal hydromorphone (unknown) (no (unknown) (unknown) Patient has had (units (unknown) date) multiple prior unknown) attempts from what his brother told me.? No plan (unknown) (no (unknown) (unknown) Patient is on (units ( unknown) date) lisinopril and unknown) propranolol.? He did develop some hypotension (unknown) (no (unknown) (unknown) Patient was noted (units (unknown) date) to have an episode unknown) of AFib in the emergency department for (unknown) (no (unknown) (unknown) Patient: (units (unkno wn) date) Octavio Romo unknown) MR#: [id number] (unknown) (no (unknown) (unknown) Physician (units (unkn own) date) Instructions: unknown) Evaluate and Treat (unknown) (no (unknown) (unknown) Physician (units (unkn own) date) Instructions: unknown) Evaluate and treat (unknown) (no (unknown) (unknown) Plt Count 321 (units ( unknown) date) unknown) (unknown) (no (unknown) (unknown) Potassium 3.9 (units ( unknown) date) unknown) (unknown) (no (unknown) (unknown) Prescriptions: (units (unknown) date) unknown) (unknown) (no (unknown) (unknown) Provider (units (unkno wn) date) unknown) (unknown) (no (unknown) (unknown) Provider: (units (unkn own) date) Luca Dillard unknown) D.O. (unknown) (no (unknown) (unknown) Pulse Oximetry 96 (units (unknown) date) 95 unknown) (unknown) (no (unknown) (unknown) Pulse Oximetry (units (unknown) date) unknown) (unknown) (no (unknown) (unknown) Pulse Rate 60 60 (units (unknown) date) 68 unknown) (unknown) (no (unknown) (unknown) Pulse Rate (units (unk nown) date) unknown) (unknown) (no (unknown) (unknown) Quality (units (unkno wn) date) unknown) (unknown) (no (unknown) (unknown) RBC 3.73 L (units (unk nown) date) unknown) (unknown) (no (unknown) (unknown) RDW 13.4 (units (unkno wn) date) unknown) (unknown) (no (unknown) (unknown) Reason For Exam: (units (unknown) date) [facility] unknown) with [facility] program (unknown) (no (unknown) (unknown) Reason For Exam: (units (unknown) date) DM, ETOH abuse unknown) (unknown) (no (unknown) (unknown) Respiratory Rate (units (unknown) date) 17 17 18 unknown) (unknown) (no (unknown) (unknown) Respiratory Rate (units (unknown) date) unknown) (unknown) (no (unknown) (unknown) Rx Instructions: (units (unknown) date) unknown) (unknown) (no (unknown) (unknown) SKIN: warm and dry, (units (unknown) date) no rash, large dark unknown) bruise noted round his gluteal folds and (unknown) (no (unknown) (unknown) See Rx (units (unkno wn) date) Instructions .ROUTE unknown) .COMPLEX Qty: 12 0RF (unknown) (no (unknown) (unknown) See Rx (units (unkno wn) date) Instructions .ROUTE unknown) .COMPLEX (unknown) (no (unknown) (unknown) Signed By: (units (unk nown) date) unknown) (unknown) (no (unknown) (unknown) Smoking Status: (units (unknown) date) Never smoker unknown) (unknown) (no (unknown) (unknown) Social History (units (unknown) date) (Updated 01/15/23 @ unknown) 02:23 by DOUG Chairez) (unknown) (no (unknown) (unknown) Sodium 137 (units (unk nown) date) unknown) (unknown) (no (unknown) (unknown) Stand Alone Forms: (units (unknown) date) Patient Portal/API, unknown) Stroke Signs + Symptoms (unknown) (no (unknown) (unknown) Summary (units (unkno wn) date) unknown) (unknown) (no (unknown) (unknown) Surgical History (units (unknown) date) (Reviewed 01/15/23 unknown) @ 02:22 by SOMMER Chairez) (unknown) (no (unknown) (unknown) TAKE 1 CAPSULE BY (units (unknown) date) MOUTH DAILY unknown) (unknown) (no (unknown) (unknown) TAKE 1 TABLET BY (units (unknown) date) MOUTH EVERY EVENING unknown) (unknown) (no (unknown) (unknown) TAKE 1 TABLET BY (units (unknown) date) MOUTH EVERY MORNING unknown) (unknown) (no (unknown) (unknown) Take 1 tablet by (units (unknown) date) mouth twice a day unknown) (unknown) (no (unknown) (unknown) Temperature 97.4 F (units (unknown) date) L 97.3 F L unknown) (unknown) (no (unknown) (unknown) Temperature (units (un known) date) unknown) (unknown) (no (unknown) (unknown) Time Patient Seen: (units (unknown) date) 22:42 unknown) (unknown) (no (unknown) (unknown) Time Spent with (units (unknown) date) Patient unknown) (unknown) (no (unknown) (unknown) Time spent: (units (un known) date) Greater than 30 unknown) minutes (unknown) (no (unknown) (unknown) VTE (units (unkno wn) date) unknown) (unknown) (no (unknown) (unknown) Visit (units (unkno wn) date) Report/Discharge unknown) Packet (unknown) (no (unknown) (unknown) Vital Signs (units (un known) date) unknown) (unknown) (no (unknown) (unknown) WBC 4.9 (units (unkno wn) date) unknown) (unknown) (no (unknown) (unknown) When asked on (units ( unknown) date) admit regarding unknown) code status patient requested to be a full code, (unknown) (no (unknown) (unknown) Will monitor. (units ( unknown) date) unknown) (unknown) (no (unknown) (unknown) [Embedded Image (units (unknown) date) Not Available] unknown) (unknown) (no (unknown) (unknown) admit patient is (units (unknown) date) unable to state unknown) where he is unable to recall how or when he (unknown) (no (unknown) (unknown) alcohol intake: (units (unknown) date) current unknown) (unknown) (no (unknown) (unknown) alone. 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 PT and OT evaulated. (unknown) (no (unknown) (unknown) and denied suicide (units (unknown) date) ideation. patient unknown) is hemodynamically stable pleasant (unknown) (no (unknown) (unknown) and this has not (units (unknown) date) recurred. TTE was unknown) unremarkable. (unknown) (no (unknown) (unknown) at this time but (units (unknown) date) he notes he does unknown) not feel safe at home.? Would likely benefit (unknown) (no (unknown) (unknown) atorvastatin 40 mg (units (unknown) date) tablet unknown) (unknown) (no (unknown) (unknown) attempted librium (units (unknown) date) previously but BP unknown) dipped, but may have been due to medications (unknown) (no (unknown) (unknown) attempts to (units (un known) date) transfer patient unknown) for detox, but was refused due to hyperglycemia, (unknown) (no (unknown) (unknown) been called to the (units (unknown) date) patient's home unknown) several times over the last few days, he was (unknown) (no (unknown) (unknown) bruising left (units (u nknown) date) abdomen, upper abd, unknown) chest, scabbed abrasion to left anterior lower (unknown) (no (unknown) (unknown) but no plan. Unable (units (unknown) date) to get any unknown) accepting facility for inpatient psych treatment. (unknown) (no (unknown) (unknown) candidate for (units ( unknown) date) anticoagulation due unknown) to his alcohol dependence and frequent falls (unknown) (no (unknown) (unknown) chlordiazepoxide (units (unknown) date) HCl 25 mg Capsule unknown) (unknown) (no (unknown) (unknown) continue CIWA (units ( unknown) date) protocol with prn unknown) benzos. (unknown) (no (unknown) (unknown) continue prn (units (u nknown) date) repletion unknown) (unknown) (no (unknown) (unknown) converses easily (units (unknown) date) but is confused. unknown) WBC 4.3, H+H 12.3/36.9, initial glucose 344, (unknown) (no (unknown) (unknown) couple of weeks (units (unknown) date) for refill. unknown) (unknown) (no (unknown) (unknown) covered in a (units (u nknown) date) variety of multiple unknown) injuries in varying degrees healing, a scabbed (unknown) (no (unknown) (unknown) dependence.? A bit (units (unknown) date) unclear on when he unknown) was diagnosed and there is not any (unknown) (no (unknown) (unknown) dependent diabetes (units (unknown) date) secondary to unknown) pancreatic insufficiency related to his alcohol (unknown) (no (unknown) (unknown) dextroamphetamine- (units (unknown) date) amphetamine 20 mg unknown) tablet (unknown) (no (unknown) (unknown) did not answer.? (units (unknown) date) Patient was seen unknown) and evaluated by GEOLOGY INSTRUCTOR in the ED made multiple (unknown) (no (unknown) (unknown) elevated QTC on (units (unknown) date) EKG, and unknown) encephalopathy. Unable to obtain accurate HPI, ROS due (unknown) (no (unknown) (unknown) extremities well.? (units (unknown) date) Is conversant but unknown) confused.? Patient states he drinks at (unknown) (no (unknown) (unknown) extremity, (units (unk nown) date) significant deep unknown) bruising to lower coccyx area. Patient denies (unknown) (no (unknown) (unknown) fall, head injury, (units (unknown) date) atrial unknown) fibrillation, encephalopathy, ETOH abuse/intoxication, (unknown) (no (unknown) (unknown) fingersticks, (units ( unknown) date) sliding scale, and unknown) Lantus. (unknown) (no (unknown) (unknown) for RVR. Now (units (u nknown) date) increased back to unknown) 25 TID. With shakiness thought of increasing but (unknown) (no (unknown) (unknown) found down this (units (unknown) date) evening on the unknown) bathroom floor with broken glass perhaps broken (unknown) (no (unknown) (unknown) from a program (units (unknown) date) that does dual unknown) diagnosis.? GEOLOGY INSTRUCTOR met with the patient today and (unknown) (no (unknown) (unknown) furosemide 20 mg (units (unknown) date) tablet unknown) (unknown) (no (unknown) (unknown) head CT negative, (units (unknown) date) CT of unknown) abdomen/pelvis multiple remote left rib fractures, left (unknown) (no (unknown) (unknown) himself (units (unkno wn) date) potentially in unknown) [place] (unknown) (no (unknown) (unknown) household members: (units (unknown) date) none unknown) (unknown) (no (unknown) (unknown) hyperglycemia. (units (unknown) date) unknown) (unknown) (no (unknown) (unknown) information with (units (unknown) date) regard to his unknown) diabetes in the medical record.? We will continue (unknown) (no (unknown) (unknown) inpatient transfer (units (unknown) date) but this is hightly unknown) unlikely despite patient and care (unknown) (no (unknown) (unknown) insulin glargine (units (unknown) date) [Lantus Solostar unknown) U-100 Insulin] 100 unit/mL (3 mL) insulin (unknown) (no (unknown) (unknown) insulin lispro (units (unknown) date) [Humalog KwikPen unknown) Insulin] 100 unit/mL insulin pen (unknown) (no (unknown) (unknown) kill himself when (units (unknown) date) asked why he did unknown) not answer'? When asked if he has a plan he (unknown) (no (unknown) (unknown) least a 5th of (units (unknown) date) Vodka daily, denies unknown) tobacco or illicit.? Patient is unable to (unknown) (no (unknown) (unknown) losartan 100 mg (units (unknown) date) tablet unknown) (unknown) (no (unknown) (unknown) management (units (unk nown) date) searching multiple unknown) facilities. Complicated due to patient's chronic (unknown) (no (unknown) (unknown) medical conditions (units (unknown) date) including unknown) stimulator and hydromorphone pump. (unknown) (no (unknown) (unknown) mirror and blood (units (unknown) date) at the scene. unknown) Patient is confused, but redirectable. During (unknown) (no (unknown) (unknown) negative, tox (units ( unknown) date) screen is positive unknown) for opiates and benzos, initial ETOH 308, (unknown) (no (unknown) (unknown) obtain these (units (u nknown) date) injuries in the unknown) events that led him to the hospital today. He is (unknown) (no (unknown) (unknown) pain, no shortness (units (unknown) date) of breath, no GI or unknown) urinary symptoms.? He is moving all his (unknown) (no (unknown) (unknown) pen (units (unkno wn) date) unknown) (unknown) (no (unknown) (unknown) propranolol 20 mg (units (unknown) date) tablet unknown) (unknown) (no (unknown) (unknown) pump.? He reports (units (unknown) date) the pump was filled unknown) every 2 months and he is not due for a (unknown) (no (unknown) (unknown) recall what his (units (unknown) date) medications are he unknown) believes he is on insulins but he has no idea (unknown) (no (unknown) (unknown) repeat 254, AST (units (unknown) date) 87, ALT 88, unknown) alk-phos 144, UA negative, lactate negative, lipase (unknown) (no (unknown) (unknown) repeat 91. COVID (units (unknown) date) negative. EKG sinus unknown) rhythm rate 72 QTC 499, without ST or T (unknown) (no (unknown) (unknown) right forearm.? (units (unknown) date) These all have unknown) occurred when he has been intoxicated and home (unknown) (no (unknown) (unknown) sacrum (units (unkno wn) date) unknown) (unknown) (no (unknown) (unknown) scapula fracture, (units (unknown) date) and L1/L2 unknown) transverse process fracture. Patient admitted for (unknown) (no (unknown) (unknown) still. (units (unkno wn) date) unknown) (unknown) (no (unknown) (unknown) stimulator in back (units (unknown) date) lumbar + Dilaudid unknown) pain pump in abdomen.? EMS had apparently (unknown) (no (unknown) (unknown) superficial lee (units (unknown) date) noted to his right unknown) forearm (unknown) (no (unknown) (unknown) superficial (units (un known) date) laceration over his unknown) right forehead, small burn right forearm, (unknown) (no (unknown) (unknown) symptoms are still (units (unknown) date) fairly mild and unknown) will keep same dose today. (unknown) (no (unknown) (unknown) tamsulosin 0.4 mg (units (unknown) date) capsule unknown) (unknown) (no (unknown) (unknown) then 25mg once (units (unknown) date) daily for 2 days unknown) then stop (unknown) (no (unknown) (unknown) to encephalopathy. (units (unknown) date) ED reported patient unknown) had an episode of atrial fibrillation (unknown) (no (unknown) (unknown) to kill himself to (units (unknown) date) the medics and when unknown) asked in ED he ' stated he did want to (unknown) (no (unknown) (unknown) wave changes. (units ( unknown) date) Chest x-ray unknown) negative, C-spine negative, pelvic x-ray negative, (unknown) (no (unknown) (unknown) well as his (units (un known) date) gluteal unknown) area/sacrum.? He also has some superficial lee to his (unknown) (no (unknown) (unknown) when or if he is (units (unknown) date) taken his unknown) medication. He did make statements that he wanted (unknown) (no (unknown) (unknown) which he was given (units (unknown) date) a dose of unknown) metoprolol.? CHADS2 Vasc score is 2, consistent (unknown) (no (unknown) (unknown) which metoprolol (units (unknown) date) was given and unknown) quickly resolved. (unknown) (no (unknown) (unknown) will work on (units (u nknown) date) possible unknown) resources.? He would benefit most from inpatient to (unknown) (no (unknown) (unknown) with a 2.2% stroke (units (unknown) date) risk annually.? unknown) Unfortunately, he would be a very poor (unknown) (no (unknown) (unknown) yesterday, with (units (unknown) date) librium noted above unknown) will continue to hold today. Result panel 272 (unknown) (no (unknown) (unknown) (no value) (units (unk nown) date) unknown) (unknown) (no (unknown) (unknown) (past 8 hours): (units (unknown) date) unknown) (unknown) (no (unknown) (unknown) Discharges (units ( unknown) date) patient from unknown) system. (unknown) (no (unknown) (unknown) -discharged on (units (unknown) date) librium 25mg TID unknown) with taper (unknown) (no (unknown) (unknown) -no accepting (units ( unknown) date) facilities with unknown) pain pump, patient will explore inpatient options (unknown) (no (unknown) (unknown) -resumed BP meds (units (unknown) date) on discharge unknown) (unknown) (no (unknown) (unknown) 0.4 mg PO DAILY (units (unknown) date) unknown) (unknown) (no (unknown) (unknown) [id number] (units (unkno wn) date) unknown) (unknown) (no (unknown) (unknown) 03:30 01/19/23 (units (unknown) date) unknown) (unknown) (no (unknown) (unknown) 03:33 01/19/23 (units (unknown) date) unknown) (unknown) (no (unknown) (unknown) 01/14/23 22:12 (units (unknown) date) unknown) (unknown) (no (unknown) (unknown) 01/14/23 22:26 (units (unknown) date) unknown) (unknown) (no (unknown) (unknown) 01/14/23 22:37 (units (unknown) date) unknown) (unknown) (no (unknown) (unknown) 01/14/23 22:38 (units (unknown) date) unknown) (unknown) (no (unknown) (unknown) 01/15/23 18:02 (units (unknown) date) unknown) (unknown) (no (unknown) (unknown) 01/16/23 12:41 (units (unknown) date) unknown) (unknown) (no (unknown) (unknown) 01/16/23 14:55 (units (unknown) date) unknown) (unknown) (no (unknown) (unknown) 01/19/23 01/19/23 (units (unknown) date) unknown) (unknown) (no (unknown) (unknown) 01/19/23 06:23 (units (unknown) date) unknown) (unknown) (no (unknown) (unknown) 01/19/23 1753 (units ( unknown) date) unknown) (unknown) (no (unknown) (unknown) 01/19/23 (units (unkno wn) date) unknown) (unknown) (no (unknown) (unknown) 06:23 06:23 (units (un known) date) unknown) (unknown) (no (unknown) (unknown) 07:00 (units (unkno wn) date) unknown) (unknown) (no (unknown) (unknown) 08:42 (units (unkno wn) date) unknown) (unknown) (no (unknown) (unknown) 1. Alcohol (units (unk nown) date) dependence with unknown) withdrawal (unknown) (no (unknown) (unknown) 10. Hyponatremia (units (unknown) date) unknown) (unknown) (no (unknown) (unknown) 100 mg PO DAILY (units (unknown) date) unknown) (unknown) (no (unknown) (unknown) 11. Hypomagnesemia (units (unknown) date) unknown) (unknown) (no (unknown) (unknown) 12. Transaminitis (units (unknown) date) unknown) (unknown) (no (unknown) (unknown) 13. hypomagnesemia (units (unknown) date) unknown) (unknown) (no (unknown) (unknown) 2. Suicidal (units (un known) date) ideation unknown) (unknown) (no (unknown) (unknown) 20 mg PO BID (units (u nknown) date) unknown) (unknown) (no (unknown) (unknown) 20 mg PO DAILY (units (unknown) date) unknown) (unknown) (no (unknown) (unknown) 20 unit SUBCUT (units (unknown) date) BEDTIME unknown) (unknown) (no (unknown) (unknown) 25 mg orally three (units (unknown) date) times daily for 2 unknown) days, then 25mg twice daily for 2 days, (unknown) (no (unknown) (unknown) 3. Multiple falls (units (unknown) date) secondary to gait unknown) instability (unknown) (no (unknown) (unknown) 4. Paroxysmal (units ( unknown) date) atrial fibrillation unknown) (unknown) (no (unknown) (unknown) 40 mg PO BEDTIME (units (unknown) date) unknown) (unknown) (no (unknown) (unknown) 5 days and able to (units (unknown) date) tolerate with unknown) librium alone. Patient had suicidal ideation (unknown) (no (unknown) (unknown) 5. Diabetes (units (un known) date) mellitus, type unknown) unclear (unknown) (no (unknown) (unknown) 6. Hypertension (units (unknown) date) unknown) (unknown) (no (unknown) (unknown) 7. Chronic pain (units (unknown) date) syndrome unknown) (unknown) (no (unknown) (unknown) 8. BPH (units (unkno wn) date) unknown) (unknown) (no (unknown) (unknown) 9. Anemia (units (unkn own) date) unknown) (unknown) (no (unknown) (unknown) ?- repleted with (units (unknown) date) IV, may be unknown) contributing to weakness. (unknown) (no (unknown) (unknown) ABD: Soft, NT/ND, (units (unknown) date) BT present in all 4 unknown) quadrants, no organomegaly or masses (unknown) (no (unknown) (unknown) ADMINISTER 2 TO 10 (units (unknown) date) UNITS UNDER THE unknown) SKIN BEFORE MEALS AND AT BEDTIME (unknown) (no (unknown) (unknown) ADMINISTER 20 (units ( unknown) date) UNITS UNDER THE unknown) SKIN EVERY EVENING (unknown) (no (unknown) (unknown) Admitted for (units (u nknown) date) alcohol withdrawals unknown) and received ativan and librium. Improved over (unknown) (no (unknown) (unknown) Age/Sex: 53 / M (units (unknown) date) unknown) (unknown) (no (unknown) (unknown) Alcohol (units (unkno wn) date) intoxication unknown) (unknown) (no (unknown) (unknown) BPH (benign (units (un known) date) prostatic unknown) hyperplasia) (unknown) (no (unknown) (unknown) BUN 12 (units (unkno wn) date) unknown) (unknown) (no (unknown) (unknown) BUN/Creatinine (units (unknown) date) Ratio 20.0 unknown) (unknown) (no (unknown) (unknown) Baso # (Auto) 0 (units (unknown) date) unknown) (unknown) (no (unknown) (unknown) Baso % (Auto) 1.0 (units (unknown) date) unknown) (unknown) (no (unknown) (unknown) Behavioral Health (units (unknown) date) Assess unknown) (unknown) (no (unknown) (unknown) Blood Pressure (units (unknown) date) 127/74 127/74 unknown) 127/85 (unknown) (no (unknown) (unknown) Blood Pressure (units (unknown) date) 127/85 unknown) (unknown) (no (unknown) (unknown) CHEST: Respiratory (units (unknown) date) excursions unknown) symmetric, CTAB (unknown) (no (unknown) (unknown) CV: RRR, no M/R/G (units (unknown) date) unknown) (unknown) (no (unknown) (unknown) Calcium 8.8 (units (un known) date) unknown) (unknown) (no (unknown) (unknown) Carbon Dioxide 29 (units (unknown) date) unknown) (unknown) (no (unknown) (unknown) Chief complaint: (units (unknown) date) Trauma unknown) (unknown) (no (unknown) (unknown) Chloride 100 (units (u nknown) date) unknown) (unknown) (no (unknown) (unknown) Chronic low back (units (unknown) date) pain unknown) (unknown) (no (unknown) (unknown) Comment: ETOH (units ( unknown) date) Abuse, SI unknown) (unknown) (no (unknown) (unknown) Comment: Wound (units (unknown) date) care unknown) (unknown) (no (unknown) (unknown) Comment: (units (unkno wn) date) unknown) (unknown) (no (unknown) (unknown) Congestive heart (units (unknown) date) failure unknown) (unknown) (no (unknown) (unknown) Consult to (units (unk nown) date) Dietitian, Adult unknown) Routine (unknown) (no (unknown) (unknown) Consult to Home (units (unknown) date) Health Routine unknown) (unknown) (no (unknown) (unknown) 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 - (units (unknown) date) 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 unknown) Routine (unknown) (no (unknown) (unknown) Consult to (units (unk nown) date) Occupational unknown) Therapy Evaluate + Treat (unknown) (no (unknown) (unknown) Consult to (units (unk nown) date) Physical Therapy unknown) Evaluate + Treat (unknown) (no (unknown) (unknown) Consults: (units (unkn own) date) unknown) (unknown) (no (unknown) (unknown) Continue Flomax (units (unknown) date) unknown) (unknown) (no (unknown) (unknown) Continued (units (unkn own) date) unknown) (unknown) (no (unknown) (unknown) Creatinine 0.60 L (units (unknown) date) unknown) (unknown) (no (unknown) (unknown) : 1970 (units (unknown) date) Acct:[id number] unknown) (unknown) (no (unknown) (unknown) Date Patient Seen: (units (unknown) date) 01/14/23 unknown) (unknown) (no (unknown) (unknown) Date of Service: (units (unknown) date) 01/14/23 unknown) (unknown) (no (unknown) (unknown) Date of admission: (units (unknown) date) unknown) (unknown) (no (unknown) (unknown) Deep Vein (units (unkn own) date) Thrombosis/Pulmonar unknown) y Embolism Present on Admission: No (unknown) (no (unknown) (unknown) Discharge (units (unkn own) date) Date/Time: 01/19/23 unknown) 11:08 (unknown) (no (unknown) (unknown) Discharge Date: (units (unknown) date) 01/19/23 unknown) (unknown) (no (unknown) (unknown) Discharge (units (unkn own) date) Diagnosis: unknown) (unknown) (no (unknown) (unknown) Discharge Plan (units (unknown) date) unknown) (unknown) (no (unknown) (unknown) Discharge (units (unkn own) date) Providers unknown) (unknown) (no (unknown) (unknown) Discharge Summary (units (unknown) date) unknown) (unknown) (no (unknown) (unknown) Discharge orders + (units (unknown) date) Medications unknown) (unknown) (no (unknown) (unknown) Discharge (units (unkn own) date) provider: unknown) (unknown) (no (unknown) (unknown) Does have prior (units (unknown) date) history of DT, unknown) symptoms today are consistent with withdrawal (unknown) (no (unknown) (unknown) EXTR: warm, well (units (unknown) date) perfused, no C/C/E, unknown) scattered bruising noted to his arms, (unknown) (no (unknown) (unknown) Eos # (Auto) 300 (units (unknown) date) unknown) (unknown) (no (unknown) (unknown) Eos % (Auto) 5.2 H (units (unknown) date) unknown) (unknown) (no (unknown) (unknown) Essential (units (unkn own) date) hypertension unknown) (unknown) (no (unknown) (unknown) Estimated GFR > 60 (units (unknown) date) unknown) (unknown) (no (unknown) (unknown) Exam Narrative: (units (unknown) date) unknown) (unknown) (no (unknown) (unknown) Exam (units (unkno wn) date) unknown) (unknown) (no (unknown) (unknown) Family History (units (unknown) date) (Updated 01/15/23 @ unknown) 02:24 by SOMMER Chairez) (unknown) (no (unknown) (unknown) Father Diabetes (units (unknown) date) mellitus unknown) (unknown) (no (unknown) (unknown) GEN: Alert and (units (unknown) date) oriented x 3, no unknown) acute distress (unknown) (no (unknown) (unknown) Glucose 139 H (units ( unknown) date) unknown) (unknown) (no (unknown) (unknown) HEENT:NC, Face (units (unknown) date) symmetric unknown) (unknown) (no (unknown) (unknown) HLD, BPH, (units (unkno wn) date) insulin-dependent unknown) diabetes and chronic low back pain tx with InterStim (unknown) (no (unknown) (unknown) Hct 36.0 L (units (unk nown) date) unknown) (unknown) (no (unknown) (unknown) Hgb 12.1 L (units (unk nown) date) unknown) (unknown) (no (unknown) (unknown) History of Present (units (unknown) date) Illness unknown) (unknown) (no (unknown) (unknown) History of (units (unk nown) date) shoulder surgery unknown) (unknown) (no (unknown) (unknown) Hospital Course (units (unknown) date) unknown) (unknown) (no (unknown) (unknown) Hospital Course: (units (unknown) date) unknown) (unknown) (no (unknown) (unknown) Hyperlipidemia due (units (unknown) date) to type 1 diabetes unknown) mellitus (unknown) (no (unknown) (unknown) [facility] (units (unknown) date) [address] [place] [address] unknown) [place] [address] (unknown) (no (unknown) (unknown) Laboratory Results (units (unknown) date) - last 24 hr unknown) (unknown) (no (unknown) (unknown) Labs (units (unkno wn) date) unknown) (unknown) (no (unknown) (unknown) Labs: (units (unkno wn) date) unknown) (unknown) (no (unknown) (unknown) 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 LFTs are presently improving.? (unknown) (no (unknown) (unknown) Lymph # (Auto) (units (unknown) date) 1500 unknown) (unknown) (no (unknown) (unknown) Lymph % (Auto) (units (unknown) date) 30.8 unknown) (unknown) (no (unknown) (unknown) MCH 32.5 (units (unkno wn) date) unknown) (unknown) (no (unknown) (unknown) MCHC 33.6 (units (unkn own) date) unknown) (unknown) (no (unknown) (unknown) MCV 96.6 (units (unkno wn) date) unknown) (unknown) (no (unknown) (unknown) GEOLOGY INSTRUCTOR Consult needed (units (unknown) date) for:: Substance unknown) Abuse Assess (unknown) (no (unknown) (unknown) Magnesium 1.4 L (units (unknown) date) unknown) (unknown) (no (unknown) (unknown) Luca Dillard, (units (unknown) date) DO unknown) (unknown) (no (unknown) (unknown) Medical History (units (unknown) date) (Reviewed 01/15/23 unknown) @ 02:22 by Genesis Dunn [facility]) (unknown) (no (unknown) (unknown) Octavio Romo is a (units (unknown) date) 53-year-old male unknown) with known history of alcohol abuse, HTN, (unknown) (no (unknown) (unknown) Mild, Will (units (unk nown) date) monitor. unknown) (unknown) (no (unknown) (unknown) Pender # (Auto) 400 (units (unknown) date) unknown) (unknown) (no (unknown) (unknown) Pender % (Auto) 7.7 (units (unknown) date) unknown) (unknown) (no (unknown) (unknown) Mother (units (unknown) date) Diabetes mellitus unknown) (unknown) (no (unknown) (unknown) Multiple falls (units (unknown) date) unknown) (unknown) (no (unknown) (unknown) NEURO: Alert and (units (unknown) date) oriented x 3, mild unknown) tremulousness. (unknown) (no (unknown) (unknown) Narrative (units (unkn own) date) unknown) (unknown) (no (unknown) (unknown) Narrative: (units (unk nown) date) unknown) (unknown) (no (unknown) (unknown) Neut # (Auto) 2700 (units (unknown) date) unknown) (unknown) (no (unknown) (unknown) Neut % (Auto) 55.3 (units (unknown) date) unknown) (unknown) (no (unknown) (unknown) New (units (unkno wn) date) unknown) (unknown) (no (unknown) (unknown) Normocytic.? (units (u nknown) date) Likely secondary to unknown) alcohol-induced marrow suppression. (unknown) (no (unknown) (unknown) Objective (units (unkn own) date) unknown) (unknown) (no (unknown) (unknown) Oxygen Delivery (units (unknown) date) Method Room Air unknown) (unknown) (no (unknown) (unknown) Oxygen Flow Rate 0 (units (unknown) date) 0 unknown) (unknown) (no (unknown) (unknown) Oxygen Flow Rate 0 (units (unknown) date) unknown) (unknown) (no (unknown) (unknown) Oxygen Flow Rate (units (unknown) date) unknown) (unknown) (no (unknown) (unknown) PFSH (units (unkno wn) date) unknown) (unknown) (no (unknown) (unknown) Patient Comments: (units (unknown) date) unknown) (unknown) (no (unknown) (unknown) Patient (units (unkno wn) date) Disposition: Home unknown) (unknown) (no (unknown) (unknown) Patient continues (units (unknown) date) on Lantus and unknown) sliding scale. Certainly he could have insulin (unknown) (no (unknown) (unknown) Patient has a (units ( unknown) date) healing laceration unknown) to his right forehead, bruises to his arms, as (unknown) (no (unknown) (unknown) Patient has a (units (u nknown) date) spinal stimulator unknown) in place as well as an intrathecal hydromorphone (unknown) (no (unknown) (unknown) Patient has had (units (unknown) date) multiple prior unknown) attempts from what his brother told me.? No plan (unknown) (no (unknown) (unknown) Patient is on (units ( unknown) date) lisinopril and unknown) propranolol.? He did develop some hypotension (unknown) (no (unknown) (unknown) Patient was noted (units (unknown) date) to have an episode unknown) of AFib in the emergency department for (unknown) (no (unknown) (unknown) Patient: (units (unkno wn) date) Octavio Romo unknown) MR#: [id number] (unknown) (no (unknown) (unknown) Physician (units (unkn own) date) Instructions: unknown) Evaluate and Treat (unknown) (no (unknown) (unknown) Physician (units (unkn own) date) Instructions: unknown) Evaluate and treat (unknown) (no (unknown) (unknown) Plt Count 321 (units ( unknown) date) unknown) (unknown) (no (unknown) (unknown) Potassium 3.9 (units ( unknown) date) unknown) (unknown) (no (unknown) (unknown) Prescriptions: (units (unknown) date) unknown) (unknown) (no (unknown) (unknown) Provider (units (unkno wn) date) unknown) (unknown) (no (unknown) (unknown) Provider: (units (unkn own) date) Luca Dillard unknown) D.O. (unknown) (no (unknown) (unknown) Pulse Oximetry 96 (units (unknown) date) 95 unknown) (unknown) (no (unknown) (unknown) Pulse Oximetry (units (unknown) date) unknown) (unknown) (no (unknown) (unknown) Pulse Rate 60 60 (units (unknown) date) 68 unknown) (unknown) (no (unknown) (unknown) Pulse Rate (units (unk nown) date) unknown) (unknown) (no (unknown) (unknown) Quality (units (unkno wn) date) unknown) (unknown) (no (unknown) (unknown) RBC 3.73 L (units (unk nown) date) unknown) (unknown) (no (unknown) (unknown) RDW 13.4 (units (unkno wn) date) unknown) (unknown) (no (unknown) (unknown) Reason For Exam: (units (unknown) date) [facility] unknown) with [facility] program (unknown) (no (unknown) (unknown) Reason For Exam: (units (unknown) date) DM, ETOH abuse unknown) (unknown) (no (unknown) (unknown) Respiratory Rate (units (unknown) date) 17 17 18 unknown) (unknown) (no (unknown) (unknown) Respiratory Rate (units (unknown) date) unknown) (unknown) (no (unknown) (unknown) Rx Instructions: (units (unknown) date) unknown) (unknown) (no (unknown) (unknown) SKIN: warm and dry, (units (unknown) date) no rash, large dark unknown) bruise noted round his gluteal folds and (unknown) (no (unknown) (unknown) See Rx (units (unkno wn) date) Instructions .ROUTE unknown) .COMPLEX Qty: 12 0RF (unknown) (no (unknown) (unknown) See Rx (units (unkno wn) date) Instructions .ROUTE unknown) .COMPLEX (unknown) (no (unknown) (unknown) Signed (units (unkno wn) date) By:<Electronically unknown) signed by Luca Dillard D.O.> (unknown) (no (unknown) (unknown) Smoking Status: (units (unknown) date) Never smoker unknown) (unknown) (no (unknown) (unknown) Social History (units (unknown) date) (Updated 01/15/23 @ unknown) 02:23 [facility] (unknown) (no (unknown) (unknown) Sodium 137 (units (unk nown) date) unknown) (unknown) (no (unknown) (unknown) Stand Alone Forms: (units (unknown) date) Patient Portal/API, unknown) Stroke Signs + Symptoms (unknown) (no (unknown) (unknown) Summary (units (unkno wn) date) unknown) (unknown) (no (unknown) (unknown) Surgical History (units (unknown) date) (Reviewed 01/15/23 unknown) @ 02:22 by DOUG Chairez) (unknown) (no (unknown) (unknown) TAKE 1 CAPSULE BY (units (unknown) date) MOUTH DAILY unknown) (unknown) (no (unknown) (unknown) TAKE 1 TABLET BY (units (unknown) date) MOUTH EVERY EVENING unknown) (unknown) (no (unknown) (unknown) TAKE 1 TABLET BY (units (unknown) date) MOUTH EVERY MORNING unknown) (unknown) (no (unknown) (unknown) Take 1 tablet by (units (unknown) date) mouth twice a day unknown) (unknown) (no (unknown) (unknown) Temperature 97.4 F (units (unknown) date) L 97.3 F L unknown) (unknown) (no (unknown) (unknown) Temperature (units (un known) date) unknown) (unknown) (no (unknown) (unknown) Time Patient Seen: (units (unknown) date) 22:42 unknown) (unknown) (no (unknown) (unknown) Time Spent with (units (unknown) date) Patient unknown) (unknown) (no (unknown) (unknown) Time spent: (units (un known) date) Greater than 30 unknown) minutes (unknown) (no (unknown) (unknown) VTE (units (unkno wn) date) unknown) (unknown) (no (unknown) (unknown) Visit (units (unkno wn) date) Report/Discharge unknown) Packet (unknown) (no (unknown) (unknown) Vital Signs (units (un known) date) unknown) (unknown) (no (unknown) (unknown) WBC 4.9 (units (unkno wn) date) unknown) (unknown) (no (unknown) (unknown) When asked on (units ( unknown) date) admit regarding unknown) code status patient requested to be a full code, (unknown) (no (unknown) (unknown) Will monitor. (units ( unknown) date) unknown) (unknown) (no (unknown) (unknown) [Embedded Image (units (unknown) date) Not Available] unknown) (unknown) (no (unknown) (unknown) admit patient is (units (unknown) date) unable to state unknown) where he is unable to recall how or when he (unknown) (no (unknown) (unknown) alcohol intake: (units (unknown) date) current unknown) (unknown) (no (unknown) (unknown) alone. 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 PT and OT evaulated. (unknown) (no (unknown) (unknown) and denied suicide (units (unknown) date) ideation. patient unknown) is hemodynamically stable pleasant (unknown) (no (unknown) (unknown) and this has not (units (unknown) date) recurred. TTE was unknown) unremarkable. (unknown) (no (unknown) (unknown) at this time but (units (unknown) date) he notes he does unknown) not feel safe at home.? Would likely benefit (unknown) (no (unknown) (unknown) atorvastatin 40 mg (units (unknown) date) tablet unknown) (unknown) (no (unknown) (unknown) attempted librium (units (unknown) date) previously but BP unknown) dipped, but may have been due to medications (unknown) (no (unknown) (unknown) attempts to (units (un known) date) transfer patient unknown) for detox, but was refused due to hyperglycemia, (unknown) (no (unknown) (unknown) been called to the (units (unknown) date) patient's home unknown) several times over the last few days, he was (unknown) (no (unknown) (unknown) bruising left (units (u nknown) date) abdomen, upper abd, unknown) chest, scabbed abrasion to left anterior lower (unknown) (no (unknown) (unknown) but no plan. (units (u nknown) date) Unable to get any unknown) accepting facility for inpatient psych treatment (unknown) (no (unknown) (unknown) candidate for (units ( unknown) date) anticoagulation due unknown) to his alcohol dependence and frequent falls (unknown) (no (unknown) (unknown) chlordiazepoxide (units (unknown) date) HCl 25 mg Capsule unknown) (unknown) (no (unknown) (unknown) continue CIWA (units ( unknown) date) protocol with prn unknown) benzos. (unknown) (no (unknown) (unknown) continue prn (units (u nknown) date) repletion unknown) (unknown) (no (unknown) (unknown) converses easily (units (unknown) date) but is confused. unknown) WBC 4.3, H+H 12.3/36.9, initial glucose 344, (unknown) (no (unknown) (unknown) couple of weeks (units (unknown) date) for refill. unknown) (unknown) (no (unknown) (unknown) covered in a (units (u nknown) date) variety of multiple unknown) injuries in varying degrees healing, a scabbed (unknown) (no (unknown) (unknown) dependence.? A bit (units (unknown) date) unclear on when he unknown) was diagnosed and there is not any (unknown) (no (unknown) (unknown) dependent diabetes (units (unknown) date) secondary to unknown) pancreatic insufficiency related to his alcohol (unknown) (no (unknown) (unknown) dextroamphetamine- (units (unknown) date) amphetamine 20 mg unknown) tablet (unknown) (no (unknown) (unknown) did not answer.? (units (unknown) date) Patient was seen unknown) and evaluated by GEOLOGY INSTRUCTOR in the ED made multiple (unknown) (no (unknown) (unknown) due to pain pump. (units (unknown) date) Patient discharged unknown) home on libirum taper. (unknown) (no (unknown) (unknown) elevated QTC on (units (unknown) date) EKG, and unknown) encephalopathy. Unable to obtain accurate HPI, ROS due (unknown) (no (unknown) (unknown) extremities well.? (units (unknown) date) Is conversant but unknown) confused.? Patient states he drinks at (unknown) (no (unknown) (unknown) extremity, (units (unk nown) date) significant deep unknown) bruising to lower coccyx area. Patient denies (unknown) (no (unknown) (unknown) fall, head injury, (units (unknown) date) atrial unknown) fibrillation, encephalopathy, ETOH abuse/intoxication, (unknown) (no (unknown) (unknown) fingersticks, (units ( unknown) date) sliding scale, and unknown) Lantus. (unknown) (no (unknown) (unknown) for RVR. Now (units (u nknown) date) increased back to unknown) 25 TID. With shakiness thought of increasing but (unknown) (no (unknown) (unknown) found down this (units (unknown) date) evening on the unknown) bathroom floor with broken glass perhaps broken (unknown) (no (unknown) (unknown) from a program (units (unknown) date) that does dual unknown) diagnosis.? GEOLOGY INSTRUCTOR met with the patient today and (unknown) (no (unknown) (unknown) furosemide 20 mg (units (unknown) date) tablet unknown) (unknown) (no (unknown) (unknown) head CT negative, (units (unknown) date) CT of unknown) abdomen/pelvis multiple remote left rib fractures, left (unknown) (no (unknown) (unknown) himself (units (unkno wn) date) potentially in unknown) [place] (unknown) (no (unknown) (unknown) household members: (units (unknown) date) none unknown) (unknown) (no (unknown) (unknown) hyperglycemia. (units (unknown) date) unknown) (unknown) (no (unknown) (unknown) information with (units (unknown) date) regard to his unknown) diabetes in the medical record.? We will continue (unknown) (no (unknown) (unknown) inpatient transfer (units (unknown) date) but this is hightly unknown) unlikely despite patient and care (unknown) (no (unknown) (unknown) insulin glargine (units (unknown) date) [Lantus Solostar unknown) U-100 Insulin] 100 unit/mL (3 mL) insulin (unknown) (no (unknown) (unknown) insulin lispro (units (unknown) date) [Humalog KwikPen unknown) Insulin] 100 unit/mL insulin pen (unknown) (no (unknown) (unknown) kill himself when (units (unknown) date) asked why he did unknown) not answer'? When asked if he has a plan he (unknown) (no (unknown) (unknown) least a 5th of (units (unknown) date) Vodka daily, denies unknown) tobacco or illicit.? Patient is unable to (unknown) (no (unknown) (unknown) losartan 100 mg (units (unknown) date) tablet unknown) (unknown) (no (unknown) (unknown) management (units (unk nown) date) searching multiple unknown) facilities. Complicated due to patient's chronic (unknown) (no (unknown) (unknown) medical conditions (units (unknown) date) including unknown) stimulator and hydromorphone pump. (unknown) (no (unknown) (unknown) mirror and blood (units (unknown) date) at the scene. unknown) Patient is confused, but redirectable. During (unknown) (no (unknown) (unknown) negative, tox (units ( unknown) date) screen is positive unknown) for opiates and benzos, initial ETOH 308, (unknown) (no (unknown) (unknown) obtain these (units (u nknown) date) injuries in the unknown) events that led him to the hospital today. He is (unknown) (no (unknown) (unknown) pain, no shortness (units (unknown) date) of breath, no GI or unknown) urinary symptoms.? He is moving all his (unknown) (no (unknown) (unknown) pen (units (unkno wn) date) unknown) (unknown) (no (unknown) (unknown) propranolol 20 mg (units (unknown) date) tablet unknown) (unknown) (no (unknown) (unknown) pump.? He reports (units (unknown) date) the pump was filled unknown) every 2 months and he is not due for a (unknown) (no (unknown) (unknown) recall what his (units (unknown) date) medications are he unknown) believes he is on insulins but he has no idea (unknown) (no (unknown) (unknown) repeat 254, AST (units (unknown) date) 87, ALT 88, unknown) alk-phos 144, UA negative, lactate negative, lipase (unknown) (no (unknown) (unknown) repeat 91. COVID (units (unknown) date) negative. EKG sinus unknown) rhythm rate 72 QTC 499, without ST or T (unknown) (no (unknown) (unknown) right forearm.? (units (unknown) date) These all have unknown) occurred when he has been intoxicated and home (unknown) (no (unknown) (unknown) sacrum (units (unkno wn) date) unknown) (unknown) (no (unknown) (unknown) scapula fracture, (units (unknown) date) and L1/L2 unknown) transverse process fracture. Patient admitted for (unknown) (no (unknown) (unknown) still. (units (unkno wn) date) unknown) (unknown) (no (unknown) (unknown) stimulator in back (units (unknown) date) lumbar + Dilaudid unknown) pain pump in abdomen.? EMS had apparently (unknown) (no (unknown) (unknown) superficial lee (units (unknown) date) noted to his right unknown) forearm (unknown) (no (unknown) (unknown) superficial (units (un known) date) laceration over his unknown) right forehead, small burn right forearm, (unknown) (no (unknown) (unknown) symptoms are still (units (unknown) date) fairly mild and unknown) will keep same dose today. (unknown) (no (unknown) (unknown) tamsulosin 0.4 mg (units (unknown) date) capsule unknown) (unknown) (no (unknown) (unknown) then 25mg once (units (unknown) date) daily for 2 days unknown) then stop (unknown) (no (unknown) (unknown) to encephalopathy. (units (unknown) date) ED reported patient unknown) had an episode of atrial fibrillation (unknown) (no (unknown) (unknown) to kill himself to (units (unknown) date) the medics and when unknown) asked in ED he ' stated he did want to (unknown) (no (unknown) (unknown) wave changes. (units ( unknown) date) Chest x-ray unknown) negative, C-spine negative, pelvic x-ray negative, (unknown) (no (unknown) (unknown) well as his (units (un known) date) gluteal unknown) area/sacrum.? He also has some superficial lee to his (unknown) (no (unknown) (unknown) when or if he is (units (unknown) date) taken his unknown) medication. He did make statements that he wanted (unknown) (no (unknown) (unknown) which he was given (units (unknown) date) a dose of unknown) metoprolol.? CHADS2 Vasc score is 2, consistent (unknown) (no (unknown) (unknown) which metoprolol (units (unknown) date) was given and unknown) quickly resolved. (unknown) (no (unknown) (unknown) will work on (units (u nknown) date) possible unknown) resources.? He would benefit most from inpatient to (unknown) (no (unknown) (unknown) with a 2.2% stroke (units (unknown) date) risk annually.? unknown) Unfortunately, he would be a very poor (unknown) (no (unknown) (unknown) yesterday, with (units (unknown) date) librium noted above unknown) will continue to hold today. Social History date description facility 2023 00:00 Never smoked tobacco (finding) [facility] 2023-01-15 00:00 Never smoked tobacco (finding) [facility] Vital Signs date measurement value units 2023 00:00 BP_diastolic 89 mmHg 2023 00:00 BP_systolic 142 mmHg 2023 00:00 heart_rate 57 /min 2023 00:00 height_metric 180.34 cm 2023 00:00 height_standard 71 in 2023 00:00 o2_saturation 100 % 2023 00:00 respiration_rate 17 /min 2023 00:00 temperature_metric 36.33 C 2023 00:00 temperature_standard 97.4 F 2023 00:00 weight_metric 95.25 kg 2023 00:00 weight_standard 209.99 lb 2023-01-15 00:00 weight_metric 94 kg 2023-01-15 00:00 weight_standard 207.23 lb 2023-01-19 00:00 BP_diastolic 85 mmHg 2023-01-19 00:00 BP_systolic 127 mmHg 2023-01-19 00:00 heart_rate 68 /min 2023-01-19 00:00 o2_saturation 95 % 2023-01-19 00:00 respiration_rate 18 /min 2023-01-19 00:00 temperature_metric 36.28 C 2023-01-19 00:00 temperature_standard 97.3 F
[2023-01-20] MEDS ORDERED: HALOPERIDOL 5 MG/ML VIAL IVP STA (11:08)
--- NOTE | 2023-01-20 11:12 | ED Physician Documentation ---
Restraint [id number] - Immediate Situation Face to Face Evaluation Date: 01/20/23 Face to Face Evaluation Time: 10:30 Restraint Classification: Violent, physical hold Restraint Type: Locked extremity - Patient's Reaction & Behaviors Safety: Physically safe, Follows Commands Verbal: Asking for information Harm: Potential harm to self, Potential harm to others Other: Attempting removal of medically necessary device(s) - Behavioral Condition Attitude: Open Attitude Comment: The patient repeatedly states that he needs to go and he wants to go. Behavior: Other (Cooperative except when told he cannot leave in which case he tries to get up and wrest free of staff restraint) Orientation: Person, Place, Time, Situation Mood: Labile Behavioral Condition Comments: .The patient is heavily intoxicated and has made statements to his psychiatrist about wanting " by copywriter" this is why he was sent to the emergency department. The patient does not understand why he cannot leave the ED and wishes to leave now. It has been explained to him multiple times that because of the statements he made and because of his heavy alcohol intoxication, he is not free to leave the ED at this time. As such, he has been trying repeatedly to get up and force his way out despite verbal and physical redirection by staff. He has required strains due to repeated attempts to leave and he is not safe to do so. He is also been placed in the restraints because of his forceful attempts to resist staff and leave anyway, creating a risk both to himself and to staff. - Evaluation Review of Systems: No complaints Pertinent History/Illicit Drugs/Medications/Results: Patient has been drinking alcohol heavily today. - Plan Need to Continue or Terminate Violent or Chemical Restraint: Plan to discontinue restraints as soon as patient is cooperative and not continually attempting to leave and resist staff. He has also been given Haldol to this end.
[2023-01-20 11:50] LABS: EOSINOPHILS # (AUTO) 0.2 10^3/uL (0.0-0.7); EOSINOPHILS % (AUTO) 5.5 %; HCT - HEMATOCRIT 34.9 % (42.0-52.0); HGB - HEMOGLOBIN 11.6 g/dL (14.0-18.0); LYMPHOCYTES # (AUTO) 1.6 10^3/uL (1.5-3.5); MEAN CORPUSCULAR HEMOGLOBIN 33.2 pg (27.0-31.0); MEAN CORPUSCULAR HGB CONC 33.2 g/dL (32.0-36.0); MEAN PLATELET VOLUME 9.6 fL (7.4-11.4); MONOCYTES # (AUTO) 0.3 10^3/uL (0.0-1.0); MONOCYTES % (AUTO) 8.1 %; NEUTROPHILS # (AUTO) 1.7 10^3/uL (1.5-6.6); NEUTROPHILS % (AUTO) 44.1 %; PLT - PLATELET COUNT 297 10^3/uL (130-450); RED BLOOD COUNT 3.49 10^6/uL (4.70-6.10); RED CELL DISTRIBUTION WIDTH 13.1 % (12.0-15.0); WHITE BLOOD COUNT 3.8 x10^3/uL (4.8-10.8)
[2023-01-20 12:04] LABS: ACETAMINOPHEN < 10 ug/mL (10-30); ALBUMIN 3.5 g/dL (3.2-5.5); ALBUMIN/GLOBULIN RATIO 1.3 (1.0-2.2); ALKALINE PHOSPHATASE 90 IU/L (42-121); ALT ALANINE AMINOTRANSFERASE 49 IU/L (10-60); AST ASPARTATE AMINOTRANSFERASE 59 IU/L (10-42); BILIRUBIN,TOTAL 0.4 mg/dL (0.2-1.0); BUN - BLOOD UREA NITROGEN 11 mg/dL (6-20); CALCIUM 8.5 mg/dL (8.5-10.3); CARBON DIOXIDE - CO2 25 mmol/L (21-32); CHLORIDE 104 mmol/L (101-111); CREATININE 0.5 mg/dL (0.6-1.2); ETOH - ETHANOL 238.7 mg/dL; GFR - MDRD 173 (>89); GLUCOSE 146 mg/dL (70-100); LIPASE 36 U/L (22-51); POTASSIUM 3.7 mmol/L (3.5-5.0); SALICYLATE < 6.0 mg/dL; SODIUM 139 mmol/L (135-145); TOTAL PROTEIN 6.3 g/dL (6.7-8.2)
[2023-01-20] MEDS ORDERED: LORazepam 1 MG TABLET PO STA (17:48)
[2023-01-20 18:02] LABS: MUDS CUTOFF CONCENTRATIONS CUTOFF CONC BELOW:
--- NOTE | 2023-01-20 18:13 | ED Physician Documentation ---
History of Present Illness - Stated complaint Stated Complaint: ETOH/SI - Chief complaint Chief Complaint: MHE - History obtained from History obtained from: Patient, EMS - Additonal information Additional information: Patient was sent to the emergency department by EMS for chief complaint of suicidal statements to his psychiatrist. Patient does not recall making any such statements, but medics report that the psychiatrist called 911 because the patient had stated that he wanted a "suicide by copy lathe tender". The patient has a history of chronic suicidality and thinks he may have made some attempts in the past, though he is quite intoxicated at this time and is not able to give a lot of history. He does deny taking any medications other than his prescribed medications, which he states he has taken as directed. He denies physically trying to harm himself. He states he is done some drinking this morning though is not sure how much. The medics report that there were empty vodka bottles all over his residence. No other complaints at this time. The patient is initially somnolent, but does arouse with heavy sternal rub and then begins to give some history. He does state that he sees a Dr. Alvarez and someone named Jannette for mental health. He was just admitted to our hospital for alcohol withdrawal/delirium tremens, and then was admitted again to [facility] and discharged yesterday. He began drinking immediately upon discharge but prior to that, had been without any alcohol for about 14 days. The patient states he would like some help with his drinking but does not want to stay here in states that "I just want to go". 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: Other Derm: Skin grafts - Present Medications Home Medications: Ambulatory Orders Medication Instructions Recorded Confirmed Atorvastatin Calcium 1 tab PO HS 01/04/23 01/04/23 Dextroamphetamine/Amphetamine 1 tab PO BID 01/04/23 01/04/23 [Adderall 20 mg Tablet] Doxepin [SINEquan] 1 cap PO HS 01/04/23 01/04/23 Fluoxetine HCl [Prozac] 1 cap PO DAILY 01/04/23 01/04/23 Furosemide [Lasix] 1 tab PO DAILY 01/04/23 01/04/23 Hydromorphone HCl/Pf [Dilaudid] 9 mg IT DAILY 01/04/23 01/04/23 Losartan Potassium [Cozaar] 1 tab PO DAILY 01/04/23 01/04/23 Omeprazole 1 cap PO BID 01/04/23 01/04/23 Propranolol HCl 1 tab PO BID 01/04/23 01/04/23 cloNIDine [Catapres] 1 - 2 tab PO HS 01/04/23 01/04/23 Blood Sugar Diagnostic [Glucose 1 each SQ ACHS #120 strip 01/11/23 Test Strip] Blood-Glucose Meter [Onetouch 1 each MC ACHS #1 each 01/11/23 Verio Reflect Meter] Insulin Glargine [Lantus Solostar] 20 unit SQ QPM #1 ea 01/11/23 Insulin Lispro [Humalog Kwikpen 2 - 10 unit SQ ACHS #1 ea 01/11/23 U-100] Lancets [Onetouch Delica Safety 1 each MC ACHS #120 each 01/11/23 Lancet] [place], Disposable [Needle] 1 each SQ ACHS #120 ea 01/11/23 Tamsulosin [Flomax] 0.4 mg PO DAILY #30 cap 01/11/23 Thiamine [Vitamin B-1] 100 mg PO DAILY #30 tab 01/11/23 - Allergies Allergies/Adverse Reactions: Allergies Allergy/AdvReac Type Severity Reaction Status Date / Time penicillin G Allergy Severe hearing Verified 01/20/23 10:57 loss left ear povidone-iodine Allergy Severe Respiratory Verified 01/20/23 10:57 [From Betadine] soap * [From Betadine] Allergy Severe Respiratory Verified 01/20/23 10:57 clonidine Allergy Unknown Verified 01/20/23 10:57 iodine Allergy Unknown Verified 01/20/23 10:57 nortriptyline Allergy Unknown Verified 01/20/23 10:57 shellfish derived Allergy skin Verified 01/20/23 10:57 burning Sulfa (Sulfonamide Allergy Unknown Verified 01/20/23 10:57 Antibiotics) sterile banadage Allergy Unknown Uncoded 01/20/23 10:57 steroids Allergy Unknown Uncoded 01/20/23 10:57 - Social History Does the pt smoke?: No Smoking Status: Never smoker Does the pt drink ETOH?: Yes ETOH Use: Liquor Does the pt have substance abuse?: No - Immunizations Immunizations are current?: Yes - POLST Patient has POLST: No POLST Status: Full Code PD ED PE NORMAL - Vitals Vital signs reviewed: Yes - General General: No acute distress, Well developed/nourished, Other (Initially somnolent, smells strongly of alcohol. Arouses to sternal rub and is then awake and conversant.) - HEENT HEENT: Atraumatic, PERRL, EOMI, Moist mucous membranes - Neck Neck: Supple, no meningeal sign - Cardiac Cardiac: RRR, No murmur, Strong equal pulses - Respiratory Respiratory: No respiratory distress, Clear bilaterally - Abdomen Abdomen: Soft, Non tender, Non distended - Derm Derm: Normal color, Warm and dry, No rash - Extremities Extremities: No deformity, No edema, No calf tenderness / cord - Neuro Neuro: Other (Clinically intoxicated with slowed responses and drowsiness, but no focal deficits otherwise.) - Psych Psych: Normal mood, Normal affect Results - Vitals Vitals: Vital Signs - 24 hr 01/20/23 01/20/23 01/20/23 10:34 11:24 12:04 Heart Rate 119 H 91 73 Respiratory 14 16 12 Rate Blood Pressure 99/71 112/90 H 95/66 O2 Saturation 97 92 98 If not protocol 2 : Oxygen Flow, liters/minute 01/20/23 01/20/23 01/20/23 13:42 15:00 17:10 Heart Rate 83 70 83 Respiratory 16 18 16 Rate Blood Pressure 119/84 H 99/66 100/62 O2 Saturation 100 95 98 If not protocol 2 2 2 : Oxygen Flow, liters/minute Oxygen O2 Source Nasal cannula - Labs Labs: Laboratory Tests 01/20/23 01/20/23 01/20/23 11:45 11:45 17:11 WBC 3.8 L RBC 3.49 L Hgb 11.6 L Hct 34.9 L MCV 100.0 H MCH 33.2 H MCHC 33.2 RDW 13.1 Plt Count 297 MPV 9.6 Neut # (Auto) 1.7 Lymph # (Auto) 1.6 [place]uel # (Auto) 0.3 Eos # (Auto) 0.2 Baso # (Auto) 0.0 Absolute Nucleated RBC 0.00 Nucleated RBC % 0.0 Sodium 139 Potassium 3.7 Chloride 104 Carbon Dioxide 25 Anion Gap 10.0 BUN 11 Creatinine 0.5 L Estimated GFR (MDRD) 173 Glucose 146 H Calcium 8.5 Total Bilirubin 0.4 AST 59 H ALT 49 Alkaline Phosphatase 90 Total Protein 6.3 L Albumin 3.5 Globulin 2.8 Albumin/Globulin Ratio 1.3 Lipase 36 Salicylates < 6.0 Acetaminophen < 10 L Ethyl Alcohol 238.7 109.7 PD Medical Decision Making - ED course Complexity details: reviewed old records, reviewed results, re-evaluated patient, considered differential, d/w patient ED course: The patient was worked up with the intent of medical clearance for mental health evaluation. He was found to have an ethanol level of 237 initially with a repeat level of 109 at just after 1700. The patient while intoxicated did repeatedly state he wanted to leave, and began forcefully trying to get up and go. Staff had to repeatedly Prevent him from getting up and put him back in the bed, and the patient did offer some resistance to this. Because he was a danger to himself and his constant attempts to leave in an intoxicated state presented a physical risk to the staff, he was finally placed in four-point restraints because he could not and would not be redirected. The patient was in four-point restraints for just under 4 hours during which time he did become more sober and had a better understanding of why he needed to stay. He stated that he would not try to leave if the restraints were taken off and so they were removed. The patient at this time has remained calm and cooperative in the emergency department since restraints have been removed and at this time continues to be free of restraint. He was also given Haldol earlier after restraints were placed and he began to escalate again. The patient's alcohol level within the last hour was 109, so he is still working toward being sober enough for a mental health evaluation. He has not yet urinated in the emergency department at this time, straight cath is being performed to get a urine sample to send to the lab for a urine drug screen. Once that is done, the patient should be clear for telepsych eval with alcohol level is low enough. He has been given a single oral dose of Ativan 2 mg since he has a history of severe withdrawals. He does not currently complain of any symptoms of alcohol withdrawal. The patient is signed out to the oncoming emergency physician, pending medical clearance and psychiatric evaluation.
[2023-01-20 18:23] LABS: AMPHETAMINE SCREEN,URINE POSITIVE (NEGATIVE); BARBITURATE SCREEN,UR POSITIVE (NEGATIVE); BENZODIAZEPINES SCREEN, URINE POSITIVE (NEGATIVE); COCAINE SCREEN URINE NEGATIVE (NEGATIVE); METHADONE SCREEN, URINE NEGATIVE (NEGATIVE); METHAMPHETAMINES SCREEN, URINE NEGATIVE (NEGATIVE); OPIATE SCREEN, URINE POSITIVE (NEGATIVE); OXYCODONE SCREEN, URINE NEGATIVE (NEGATIVE); PROPOXYPHENE SCREEN, URINE NEGATIVE (NEGATIVE); THC CANNABINOID SCREEN, URINE NEGATIVE (NEGATIVE); TRICYCLIC ANTIDEPRESSANT,URINE NEGATIVE (NEGATIVE)
--- NOTE | 2023-01-20 23:24 | ED Physician Documentation ---
ED Addendum - Addendum Addendum: Patient signed out to me by daytime physician. Patient is awaiting telepsych evaluation.He was initially quite intoxicated and was allowed to sober.He has been evaluated by Dr. Rust with telepsychiatry. Recommendations are for inpatient treatment, voluntary. If he wants to leave then D[facility] should be contacted. Medication recommendations were also made which I have ordered. Communicated with the patient's RN to see if we are able to reach out to area facilities overnight for any available beds. Patient will be signed out to oncoming provider at shift change. Results - Vitals Vitals: Vital Signs - 24 hr 01/20/23 01/20/23 01/20/23 10:34 11:24 12:04 Temperature Heart Rate 119 H 91 73 Respiratory 14 16 12 Rate Blood Pressure 99/71 112/90 H 95/66 O2 Saturation 97 92 98 If not protocol 2 : Oxygen Flow, liters/minute 01/20/23 01/20/23 01/20/23 13:42 15:00 17:10 Temperature Heart Rate 83 70 83 Respiratory 16 18 16 Rate Blood Pressure 119/84 H 99/66 100/62 O2 Saturation 100 95 98 If not protocol 2 2 2 : Oxygen Flow, liters/minute 01/20/23 01/20/23 01/20/23 19:00 21:00 23:00 Temperature 36.6 C Heart Rate 115 H 76 94 Respiratory 15 16 16 Rate Blood Pressure 131/84 H 116/76 130/93 H O2 Saturation 99 95 95 If not protocol : Oxygen Flow, liters/minute Oxygen O2 Source Room air - EKG (time done) 0000 EKG releavant findings:: EKG personally interpreted by author of this note. Relevant findings are: Rate 66, normal sinus rhythm, motion artifact In multiple leads, QTc 470 Rate: Rate (enter#) (66) Rhythm: NSR Ischemia: No: ST elevation c/w ischemia - Labs Labs: Laboratory Tests 01/20/23 01/20/23 01/20/23 11:45 11:45 17:11 WBC 3.8 L RBC 3.49 L Hgb 11.6 L Hct 34.9 L MCV 100.0 H MCH 33.2 H MCHC 33.2 RDW 13.1 Plt Count 297 MPV 9.6 Neut # (Auto) 1.7 Lymph # (Auto) 1.6 [place]lan # (Auto) 0.3 Eos # (Auto) 0.2 Baso # (Auto) 0.0 Absolute Nucleated RBC 0.00 Nucleated RBC % 0.0 Sodium 139 Potassium 3.7 Chloride 104 Carbon Dioxide 25 Anion Gap 10.0 BUN 11 Creatinine 0.5 L Estimated GFR (MDRD) 173 Glucose 146 H Calcium 8.5 Total Bilirubin 0.4 AST 59 H ALT 49 Alkaline Phosphatase 90 Total Protein 6.3 L Albumin 3.5 Globulin 2.8 Albumin/Globulin Ratio 1.3 Lipase 36 Salicylates < 6.0 Urine Opiates Screen Ur Oxycodone Screen Urine Methadone Screen Ur Propoxyphene Screen Acetaminophen < 10 L Ur Barbiturates Screen Ur Tricyclics Screen Ur Phencyclidine Scrn Ur Amphetamine Screen U Methamphetamines Scrn U Benzodiazepines Scrn Urine Cocaine Screen U Cannabinoids Screen Ethyl Alcohol 238.7 109.7 SARS-CoV-2 (PCR) 01/20/23 01/20/23 17:56 23:50 WBC RBC Hgb Hct MCV MCH MCHC RDW Plt Count MPV Neut # (Auto) Lymph # (Auto) [place]lan # (Auto) Eos # (Auto) Baso # (Auto) Absolute Nucleated RBC Nucleated RBC % Sodium Potassium Chloride Carbon Dioxide Anion Gap BUN Creatinine Estimated GFR (MDRD) Glucose Calcium Total Bilirubin AST ALT Alkaline Phosphatase Total Protein Albumin Globulin Albumin/Globulin Ratio Lipase Salicylates Urine Opiates Screen POSITIVE H Ur Oxycodone Screen NEGATIVE Urine Methadone Screen NEGATIVE Ur Propoxyphene Screen NEGATIVE Acetaminophen Ur Barbiturates Screen POSITIVE H Ur Tricyclics Screen NEGATIVE Ur Phencyclidine Scrn NEGATIVE Ur Amphetamine Screen POSITIVE H U Methamphetamines Scrn NEGATIVE U Benzodiazepines Scrn POSITIVE H Urine Cocaine Screen NEGATIVE U Cannabinoids Screen NEGATIVE Ethyl Alcohol SARS-CoV-2 (PCR) NOT DETECTED
[2023-01-20] MEDS: chlordiazePOXIDE 25 MG CAPSULE PO SCH (23:49)
--- NOTE | 2023-01-20 23:56 | TELEPSYCH PHYS NOTE ---
Telepsych Consultation Note Consult: Array Name: OCTAVIO LALA : 1970 Date and Time: 01/21/2023 1:53:42 AM Location of the patient: [facility] ED Location of the doctor: [place] Length of consult: 45 min This evaluation was conducted via video telepsychiatry with the assistance of onsite staff Reason for consult: SI Requested by: ER staff History of Present Illness: Patient is a 53-year-old male with history of depression and alcohol abuse was brought to the ER by police. The patient call his psychiatrist and said he wanted to commit "suicide by molecular spectroscopist." The police were called the patient brought to the ER. Patient arrived blood alcohol level of 237. He was uncooperative and was placed in restraints at one point. Initially, the patient stated he had no memory of making any dangerous comments to the police are psychiatrist. The patient later admitted that he had been having suicidal thoughts for the past week. The patient has been noncompliant with his psych meds for several weeks and was admitted to the hospital last week secondary to alcohol overdose. While on the medical unit, the patient did you have suicidal thoughts despite having his psych meds restarted. Patient was discharged from the hospital yesterday and call his psychiatrist to reveal he was still having thoughts of ending his life. Patient states he is frustrated that he cannot find a dual diagnosis unit to addresses alcohol use and his mental health issues. Collateral Contacted: No Reason for not contacting the collateral:Patient meets criteria for admission Sleep issues?: Yes Sleep Quantity: poor Sleep Quality: poor Psychiatric History/Treatment History: Past diagnoses: depression Hospitalizations: Yes Description: multiple inpt admissions Current Treatment:Yes Medication management: Yes Medications: Therapy: Yes TherapyDesc: Suicide Assessment: PSS-3: 1) Over the past 2 weeks have you felt down, depressed or hopeless? Yes 2) Over the past 2 weeks have you had thoughts of killing yourself? Yes 3) Have you ever in your life attempted to kill yourself? Yes Within the past 6 months? Yes PSS-3 Secondary Screen: 1) Positive on PSS-3 questions 2 & 3 active SI with a past attempt? Yes 2) Have you been thinking about how you might kill yourself? Yes 3) Have you had some intention of acting on your thoughts? Yes 4) Lifetime psychiatric hospitalization? Yes 5) Has drinking or substance abuse ever been a problem for you? Yes 6) Current irritability, agitation, or aggression? Yes PSS-3 Secondary Screen Scoring: Severe Notes: Mild (0-2) No current attempt and no plan/intent Moderate (3-4) No current attempt, Plan OR intent but not both Severe (5-6) Current Attempt with Plan AND intent JCO-based Safety Assessment: Risk Factors Stressors: see HPI Attempts/Self-injury: Yes Description: alcohol overdose last week. pill overdose 15 yr ago. tried to shoot self 20 yrs ago. Impulsivity:Yes Description: Drug/Alcohol History:Yes Description: alcohol--1/5 daily Trauma History:No Access to firearms:No HI/Violence/Property destruction:No Legal: No Family Psych History:Unknown-NA Family History of suicide:No Protective Factors: Can handle stress well? No Jainism? No External: Social supports/ Therapeutic relationships: No Relationship history: Living situation: lives alone Employment: No Education: HS grad Responsibility to family/children/work: No Future orientation:Unknown-NA Health History: Medical History: chronic back pain Medications & Freq: prozac 20 mg daily, Adderall 20 mg BID Allergies: penicillin, iodine, betadine, sulfa, steroids, nortriptyline Mental Status Exam: Appearance and Attire: Good eye contact Psychomotor agitation: Psychomotor retardation Attitude and behavior: Cooperative Speech: Slow, Soft Mood: Depressed Affect: Flat Thought process: Coherent Thought content: Suicidal ideation Perception: no AVH Intel: Average Abstract: Appropriate Language: No abnormality Orientation: Oriented x 4 Sense: Normal Knowledge: Appropriate for education and socioeconomic status Memory: Intact Insight: Judgement: Moderate impairment Gait: No abnormality Impression/Risk Assessment: Current Suicide Risk Elevated? Yes Current Violence Risk Elevated? No Issues with ability to care for self? No Summary: 53yo male with depressed mood and SI who presents to the ER at the request of his psychiatrist. He has a hx of prior inpt admissions and prior suicide attempts. Inpt care recommended. Diagnosis: F10.10 Alcohol abuse, uncomplicated, F33.2 Major depressive disorder, recurrent severe without psychotic features CPT Codes: 85399 - Psychiatric Diagnostic Evaluation with Medical Services Treatment Plan: General: Level of Care: voluntary admission. Contact DCR if pt changes his mind Psychiatric Clearance: No Observation level 1:1 needed?: Yes Pharmacological: Fluoxetine 20 mg daily. Librium 25 mg BID x 1 day, followed by Librium 25 mg daily x 1 day. Ativan 1 mg Q4hr prn alcohol withdrawal Patient psychotic?No Therapy: supportive Follow up needed while in the hospital?: Yes Number of times: daily Discussed plan with onsite maintenance team member: Yes Who Anand Tellez MD Other: n/a List names and roles of persons who participated in consult: Sunny Rust MD. [facility]
[2023-01-21] MEDS ORDERED: LORazepam 1 MG TABLET PO PRN (00:22)
[2023-01-21] MEDS ORDERED: FLUoxetine 10 MG CAPSULE PO SCH (09:00)
[2023-01-21] MEDS: chlordiazePOXIDE 25 MG CAPSULE PO SCH ×2 (09:00→20:31)
[2023-01-21] MEDS ORDERED: IBUPROFEN 800 MG TABLET PO STA (13:49)
[2023-01-21] MEDS ORDERED: LORazepam 1 MG TABLET PO STA ×2 (17:52)
--- NOTE | 2023-01-21 17:52 | ED Physician Documentation ---
ED Addendum - Addendum Addendum: 01/21/23 17:47 53-year-old Sj Romo has a history of alcohol abuse and he has been admitted into our emergency department intoxicated and acting belligerent. He has suicidal ideation and depression that is currently active. He has recently been into treatment and had 5 days of sobriety. He left the hospital and drank for 3 days. He required sedation and restraint yesterday and today he is somewhat more sober and is shaking. He is requesting some Ativan. We have given him a dose of Ativan right before transferring him to [facility]. We did have telepsych evaluate the patient. Impression: Major depressive disorder currently active without psychotic features. Suicidal ideation. Alcohol abuse currently active. Plan: patient is transferred to [facility] for psychiatric admission.
[2023-01-21 18:43] VITALS: BP 126/81
[2023-01-21] MEDS ORDERED: TRIAMCINOLONE 0.1% OINT 15 GM TUBE TOP STA (19:56)
--- NOTE | 2023-01-21 19:57 | ED Physician Documentation ---
ED Addendum - Addendum Addendum: 01/21/23 19:57 Prior to transport he asked the nurse to ask me about a rash on his leg. A very burning rash that is been going on for 2 months. He has an inflammatory looking rash on the right thigh. Been going on too long per his description to be shingles. We will place some steroid ointment.
== END 2023-01-21 20:40 ==
LOC: EDUNIT# → ED 10:23
DX: F10.10 Alcohol abuse, uncomplicated (principal); Y90.7 Blood alcohol level of 200-239 mg/100 ml; R45.851 Suicidal ideations; R21 Rash and other nonspecific skin eruption; I10 Essential (primary) hypertension; E78.00 Pure hypercholesterolemia, unspecified; E11.9 Type 2 diabetes mellitus without complications; F31.9 Bipolar disorder, unspecified; Z79.899 Other long term (current) drug therapy; Z79.4 Long term (current) use of insulin; Z20.822 Contact with and (suspected) exposure to COVID-19
CPT/HCPCS: 36415; 80053; 80306; 80307; 83690; 85025; 87635; 93005; 96374; 99285; A9270; G0425; G0480; J8499; Q3014; 80320; 80329

== ENCOUNTER 2023-02-07 06:30 | Inpatient (IN) | payer MEDICARE ==
[2023-02-07] MEDS ORDERED: HYDROmorphone 1 MG/ML CARPUJECT IVP STA ×3 (06:34→07:01)
[2023-02-07] MEDS ORDERED: HYDROmorphone 1 MG/ML CARPUJECT IM STA (06:42)
--- OUTSIDE RECORDS SUMMARY | 2023-02-07 06:48 | EXTERNAL MEDICAL SUMMARY RPT | Continuity of Care Document ---
:1970 Author Organization [place] Address [address] [place] [address] Phone Care Team Providers Name Role Phone Unavailable Unavailable Unavailable Octavio Dewey Unavailable Unavailable Allergies and Intolerances date description facility type (no date) penicillin G [facility] (unknown) (no date) povidone-iodine [facility] (unknown) (no date) shellfish derived [facility] (unknown) (no date) soap [facility] (unknown) Encounters No information. Functional Status No information. Immunizations date description facility 2023 00:00 Tetanus, Diphtheria, Pertussis (Tdap) [facility] Medications date description facility 2023 00:00 Furosemide [facility] 2023 00:00 Dextroamphetamine-Amphetamine [facility] 2023 00:00 Atorvastatin [facility] 2023 00:00 Insulin Glargine [facility] 2023 00:00 Propranolol [facility] 2023 00:00 Tamsulosin [facility] 2023-01-19 00:00 Chlordiazepoxide Hcl [facility] 2023 00:00 Losartan [facility] Problems date description facility 2023 00:00 Alcohol abuse [facility] 2023 00:00 Encephalopathy [facility] 2023 00:00 Atrial fibrillation with rapid ventricu lar [facility] response 2023 00:00 Suicidal ideation [facility] 2023 00:00 Facial laceration [facility] 2023-01-15 00:00 Hyperlipidemia due to type 1 diabetes m ellitus [facility] 2023-01-15 00:00 Alcoholic intoxication [facility] 2023-01-15 00:00 Primary hypertension [facility] 2023-01-15 00:00 Benign prostatic hyperplasia [facility] 2023-01-15 00:00 Recurrent falls [facility] 2023-01-15 00:00 Injury of head [facility] 2023-01-16 09:35 Alcohol dependence with withdrawal, uns pecified [facility] 2023-01-16 09:45 Alcohol dependence with withdrawal, [facility] 2023-01-16 09:49 Alcohol dependence with withdrawal, [facility] 2023-01-16 11:50 Alcohol dependence with withdrawal, [facility] 2023-01-16 13:57 Alcohol dependence with withdrawal, [facility] 2023-01-17 08:55 Alcohol dependence with withdrawal, [facility] 2023-01-17 09:11 Alcohol dependence with withdrawal, [facility] 2023-01-17 10:54 Alcohol dependence with withdrawal, [facility] 2023-01-18 08:24 Alcohol dependence with withdrawal, [facility] 2023-01-18 14:08 Alcohol dependence with withdrawal, [facility] 2023-01-18 14:10 Alcohol dependence with withdrawal, [facility] 2023-01-19 09:22 Alcohol dependence with withdrawal, [facility] 2023-01-19 10:51 Alcohol dependence with withdrawal, [facility] 2023-01-19 11:13 Alcohol dependence with withdrawal, [facility] 2023-01-19 14:43 Alcohol dependence with withdrawal, [facility] 2023-01-19 15:30 Alcohol dependence with withdrawal, [facility] 2023-01-20 08:35 Alcohol dependence with withdrawal, [facility] Procedures date description facility 2023 00:00 XR pelvis, 1-2 views [facility] 2023 00:00 Computed tomography of head or brain wi [facility] contrast 2023 00:00 X-ray of chest, single view [facility] pital 2023-01-15 00:00 Complete Doppler echocardiography [facility] 2023 00:00 Computed tomography of cervical spine w [facility] contrast 2023 00:00 Magnetic resonance imaging of brain for stroke [facility] alert Results/Labs test date author facility value unit interpret ation Result panel 1 (unknown) (no date) (unknown) [facility] (no value) (units (unk now) Hospital unknown) Result panel 2 (unknown) (no date) (unknown) [facility] (no value) (units (unk nown) Hospital unknown) [...] nown) date) unknown) (unknown) (no (unknown) (unknown) [id number] (units (unkno wn) date) unknown) (unknown) (no (unknown) (unknown) 01/14/23 (units (unkno wn) date) unknown) (unknown) (no (unknown) (unknown) [address] [place] [address] (units (unknown) date) unknown) (unknown) (no (unknown) (unknown) ABDOMEN: (units (unkno wn) date) unknown) (unknown) (no (unknown) (unknown) Accession Number: (units (unknown) date) [id number] unknown) (unknown) (no (unknown) (unknown) Accession Number: (units (unknown) date) [id number] unknown) (unknown) (no (unknown) (unknown) Accession Number: (units (unknown) date) [id number] unknown) (unknown) (no (unknown) (unknown) Accession Number: (units (unknown) date) [id number] unknown) (unknown) (no (unknown) (unknown) Accession Number: (units (unknown) date) [id number] unknown) (unknown) (no (unknown) (unknown) Additional 7 mm (units (unknown) date) thick coronal unknown) maximum intensity projection (MIP) reformats (unknown) (no (unknown) (unknown) After the (units (unkn own) date) administration of unknown) intravenous contrast, 5 mm thick sections acquired (unknown) (no (unknown) (unknown) Age/Sex: 53 / M (units (unknown) date) Date of Service: unknown) (unknown) (no (unknown) (unknown) [place] (units ( unknown) date) [id number] unknown) (unknown) (no (unknown) (unknown) Approved by: [...] (unknown) (unknown) COMPARISON: (units (un known) date) [facility], unknown) CT, CT CERVICAL SPINE WO CON, 04/13/2020, 10:42. (unknown) (no (unknown) (unknown) COMPARISON: (units (un known) date) [facility], unknown) CT, CT CHEST ABD PEL W CON, 04/13/2020, 10:42. (unknown) (no (unknown) (unknown) COMPARISON: (units (un known) date) [facility], unknown) CT, CT HEAD/BRAIN WO CON, 04/13/2020, [...] (unknown) (unknown) : 1970 (units (unknown) date) Acct:[id number] unknown) (unknown) (no (unknown) (unknown) Dictated by: [...] date) Excellent. unknown) (unknown) (no (unknown) (unknown) [facility] (units (unknown) date) unknown) (unknown) (no (unknown) [...] #15 tabs unknown) (unknown) (no (unknown) (unknown) [id number] (units (unkno wn) date) unknown) (unknown) (no [...] Stat (unknown) (no (unknown) (unknown) Consult to ENTERPRISE RECORDS ANALYST - (units (unknown) date) Cardiopulmonary Supervisor unknown) Stat (unknown) (no (unknown) (unknown) Course (units (unkno wn) date) unknown) (unknown) (no (unknown) (unknown) : 1970 (units (unknown) date) Acct:[id number] unknown) (unknown) (no (unknown) (unknown) Date of [...] (unknown) date) unknown) (unknown) (no (unknown) (unknown) [facility] (units (unknown) date) [address] [place] [address] Street unknown) [place] [address] (unknown) (no (unknown) (unknown) LOSS AT (units [...] #15 tabs unknown) (unknown) (no (unknown) (unknown) [id number] (units (unkno wn) date) unknown) (unknown) (no [...] unknown) (unknown) (no (unknown) (unknown) Consult to [facility] - (units (unknown) date) Cardiopulmonary Supervisor Stat unknown) (unknown) (no (unknown) (unknown) Course (units (unkno wn) date) unknown) (unknown) (no (unknown) (unknown) Creatinine 0.42 L (units (unknown) date) (0.66-1.25) mg/dL unknown) (unknown) (no (unknown) (unknown) : 1970 (units (unknown) date) Acct:[id number] unknown) (unknown) (no (unknown) (unknown) Date of [...] (unknown) date) unknown) (unknown) (no (unknown) (unknown) [facility] (units (unknown) date) [address] unknown) [place] [address] (unknown) (no (unknown) (unknown) LOSS AT (units [...] # (Auto) 1700 (unit s (unknown) date) (3875-2200) /uL unknown) (unknown) (no (unknown) (unknown) Lymph [...] date) EMS unknown) (unknown) (no (unknown) (unknown) Geary # (Auto) 600 (units (unknown) date) (0-900) /uL unknown) (unknown) (no (unknown) (unknown) Geary % (Auto) 14.9 (units (unknown) date) H [...] Neut # (Auto) 1800 (units (unknown) date) (4514-1230) /uL unknown) (unknown) (no (unknown) (unknown) Neut [...] (units (unknown) date) rhythm rate of 72 [place] unknown) 130 QRS of 98 QTC 499. [...] #15 tabs unknown) (unknown) (no (unknown) (unknown) [id number] (units (unkno wn) date) unknown) (unknown) (no [...] unknown) (unknown) (no (unknown) (unknown) Consult to [facility] - (units (unknown) date) Cardiopulmonary Supervisor Stat unknown) (unknown) (no (unknown) (unknown) Course (units (unkno wn) date) unknown) (unknown) (no (unknown) (unknown) Creatinine (units (unk nown) date) (0.66-1.25) mg/dL unknown) (unknown) (no (unknown) (unknown) Creatinine 0.42 L (units (unknown) date) (0.66-1.25) mg/dL unknown) (unknown) (no (unknown) (unknown) : 1970 (units (unknown) date) Acct:[id number] unknown) (unknown) (no (unknown) (unknown) Date of [...] (unknown) date) unknown) (unknown) (no (unknown) (unknown) [facility] (units (unknown) date) [address] [place] [address] unknown) [place] [address] (unknown) (no (unknown) (unknown) LOSS AT (units [...] (unknown) Lymph # (Auto) (units (unknown) date) (1576-3133) /uL unknown) (unknown) (no (unknown) (unknown) Lymph # (Auto) 1700 (unit s (unknown) date) (5200-1248) /uL unknown) (unknown) (no (unknown) (unknown) Lymph [...] date) EMS unknown) (unknown) (no (unknown) (unknown) Geary # (Auto) (units ( unknown) date) (0-900) /uL unknown) (unknown) (no (unknown) (unknown) Geary # (Auto) 600 (units (unknown) date) (0-900) /uL unknown) (unknown) (no (unknown) (unknown) [facility]ary % (Auto) (units ( unknown) date) (3-14) % unknown) (unknown) (no (unknown) (unknown) Geary % (Auto) 14.9 (units (unknown) date) H [...] Neut # (Auto) (units ( unknown) date) (4067-1982) /uL unknown) (unknown) (no (unknown) (unknown) Neut # (Auto) 1800 (units (unknown) date) (3886-9806) /uL unknown) (unknown) (no (unknown) (unknown) Neut [...] (units (unknown) date) rhythm rate of 72 [place] unknown) 130 QRS of 98 QTC 499. [...] (unknown) date) unknown) (unknown) (no (unknown) (unknown) [id number] (units (unkno wn) date) unknown) (unknown) (no [...] unknown) (unknown) (no (unknown) (unknown) Consult to ENTERPRISE RECORDS ANALYST - (units (unknown) date) Cardiopulmonary Supervisor Stat unknown) (unknown) (no (unknown) (unknown) Course (units (unkno wn) date) unknown) (unknown) (no (unknown) (unknown) Creatinine (units (unk nown) date) (0.66-1.25) mg/dL unknown) (unknown) (no (unknown) (unknown) Creatinine 0.42 L (units (unknown) date) (0.66-1.25) mg/dL unknown) (unknown) (no (unknown) (unknown) : 1970 (units (unknown) date) Acct:[id number] unknown) (unknown) (no (unknown) (unknown) Date of [...] (unknown) date) unknown) (unknown) (no (unknown) (unknown) [facility] (units (unknown) date) [address] unknown) [place] [address] (unknown) (no (unknown) (unknown) LOSS AT (units [...] (unknown) Lymph # (Auto) (units (unknown) date) (3029-9891) /uL unknown) (unknown) (no (unknown) (unknown) Lymph # (Auto) 1700 (unit s (unknown) date) (6849-0192) /uL unknown) (unknown) (no (unknown) (unknown) Lymph [...] date) EMS unknown) (unknown) (no (unknown) (unknown) Geary # (Auto) (units ( unknown) date) (0-900) /uL unknown) (unknown) (no (unknown) (unknown) Geary # (Auto) 600 (units (unknown) date) (0-900) /uL unknown) (unknown) (no (unknown) (unknown) Geary % (Auto) (units ( unknown) date) (3-14) % unknown) (unknown) (no (unknown) (unknown) Geary % (Auto) 14.9 (units (unknown) date) H [...] Neut # (Auto) (units ( unknown) date) (6074-6518) /uL unknown) (unknown) (no (unknown) (unknown) Neut # (Auto) 1800 (units (unknown) date) (2165-8664) /uL unknown) (unknown) (no (unknown) (unknown) Neut [...] (units (unknown) date) rhythm rate of 72 [place] unknown) 130 QRS of 98 QTC 499. [...] (Negative) (unknown) (no (unknown) (unknown) Ur Specific Midnight (unit s (unknown) date) (1.000-1.035) unknown) (unknown) (no (unknown) (unknown) Ur Specific Midnight (unit s (unknown) date) 1.010 (1.000-1.035) unknown) [...] He met with (units (unknown) date) our criminal justice social worker as unknown) he has been [...] (unknown) date) unknown) (unknown) (no (unknown) (unknown) [id number] (units (unkno wn) date) unknown) (unknown) (no [...] unknown) (unknown) (no (unknown) (unknown) Consult to [facility] - (units (unknown) date) Cardiopulmonary Supervisor Stat unknown) (unknown) (no (unknown) (unknown) Course (units (unkno wn) date) unknown) (unknown) (no (unknown) (unknown) Creatinine (units (unk nown) date) (0.66-1.25) mg/dL unknown) (unknown) (no (unknown) (unknown) Creatinine 0.42 L (units (unknown) date) (0.66-1.25) mg/dL unknown) (unknown) (no (unknown) (unknown) : 1970 (units (unknown) date) Acct:[id number] unknown) (unknown) (no (unknown) (unknown) Date of [...] (unknown) date) unknown) (unknown) (no (unknown) (unknown) [facility] (units (unknown) date) [address] unknown) [place] [address] (unknown) (no (unknown) (unknown) Ketorolac (units (unkn [...] (unknown) Lymph # (Auto) (units (unknown) date) (1742-8925) /uL unknown) (unknown) (no (unknown) (unknown) Lymph # (Auto) 1700 (unit s (unknown) date) (0734-2739) /uL unknown) (unknown) (no (unknown) (unknown) Lymph [...] date) EMS unknown) (unknown) (no (unknown) (unknown) Geary # (Auto) (units ( unknown) date) (0-900) /uL unknown) (unknown) (no (unknown) (unknown) Geary # (Auto) 600 (units (unknown) date) (0-900) /uL unknown) (unknown) (no (unknown) (unknown) [facility]ary % (Auto) (units ( unknown) date) (3-14) % unknown) (unknown) (no (unknown) (unknown) Geary % (Auto) 14.9 (units (unknown) date) H [...] Neut # (Auto) (units ( unknown) date) (3809-7748) /uL unknown) (unknown) (no (unknown) (unknown) Neut # (Auto) 1800 (units (unknown) date) (3530-8297) /uL unknown) (unknown) (no (unknown) (unknown) Neut [...] (units (unknown) date) rhythm rate of 72 [place] unknown) 130 QRS of 98 QTC 499. [...] (Negative) (unknown) (no (unknown) (unknown) Ur Specific Midnight (unit s (unknown) date) (1.000-1.035) unknown) (unknown) (no (unknown) (unknown) Ur Specific Midnight (unit s (unknown) date) 1.010 (1.000-1.035) unknown) [...] He met with (units (unknown) date) our criminal justice social worker as unknown) he has been [...] (unknown) date) unknown) (unknown) (no (unknown) (unknown) [id number] (units (unkno wn) date) unknown) (unknown) (no [...] unknown) (unknown) (no (unknown) (unknown) Consult to ENTERPRISE RECORDS ANALYST - (units (unknown) date) Cardiopulmonary Supervisor Stat unknown) (unknown) (no (unknown) (unknown) Course (units (unkno wn) date) unknown) (unknown) (no (unknown) (unknown) Creatinine (units (unk nown) date) (0.66-1.25) mg/dL unknown) (unknown) (no (unknown) (unknown) Creatinine 0.42 L (units (unknown) date) (0.66-1.25) mg/dL unknown) (unknown) (no (unknown) (unknown) : 1970 (units (unknown) date) Acct:[id number] unknown) (unknown) (no (unknown) (unknown) Date of [...] (unknown) date) unknown) (unknown) (no (unknown) (unknown) [facility] (units (unknown) date) [address] unknown) [place] [address] (unknown) (no (unknown) (unknown) Ketorolac (units (unkn [...] (unknown) Lymph # (Auto) (units (unknown) date) (9980-6971) /uL unknown) (unknown) (no (unknown) (unknown) Lymph # (Auto) 1700 (unit s (unknown) date) (5770-7348) /uL unknown) (unknown) (no (unknown) (unknown) Lymph [...] date) EMS unknown) (unknown) (no (unknown) (unknown) Geary # (Auto) (units ( unknown) date) (0-900) /uL unknown) (unknown) (no (unknown) (unknown) Geary # (Auto) 600 (units (unknown) date) (0-900) /uL unknown) (unknown) (no (unknown) (unknown) Geary % (Auto) (units ( unknown) date) (3-14) % unknown) (unknown) (no (unknown) (unknown) Geary % (Auto) 14.9 (units (unknown) date) H [...] Neut # (Auto) (units ( unknown) date) (4480-3611) /uL unknown) (unknown) (no (unknown) (unknown) Neut # (Auto) 1800 (units (unknown) date) (3985-8862) /uL unknown) (unknown) (no (unknown) (unknown) Neut [...] (units (unknown) date) rhythm rate of 72 [place] unknown) 130 QRS of 98 QTC 499. [...] (Negative) (unknown) (no (unknown) (unknown) Ur Specific Midnight (unit s (unknown) date) (1.000-1.035) unknown) (unknown) (no (unknown) (unknown) Ur Specific Midnight (unit s (unknown) date) 1.010 (1.000-1.035) unknown) [...] He met with (units (unknown) date) our criminal justice social worker as unknown) he has been [...] (unknown) date) unknown) (unknown) (no (unknown) (unknown) [id number] (units (unkno wn) date) unknown) (unknown) (no [...] date) BEDTIME unknown) (unknown) (no (unknown) (unknown) 2015 white count of (unit s (unknown) date) [...] unknown) (unknown) (no (unknown) (unknown) Consult to [facility] - (units (unknown) date) Cardiopulmonary Supervisor Stat unknown) (unknown) (no (unknown) (unknown) Course (units (unkno wn) date) unknown) (unknown) (no (unknown) (unknown) Creatinine (units (unk nown) date) (0.66-1.25) mg/dL unknown) (unknown) (no (unknown) (unknown) Creatinine 0.42 L (units (unknown) date) (0.66-1.25) mg/dL unknown) (unknown) (no (unknown) (unknown) : 1970 (units (unknown) date) Acct:[id number] unknown) (unknown) (no (unknown) (unknown) Date of [...] (units (unknown) date) of trauma, no unknown) raccoon/Johnsno sign. (unknown) (no (unknown) (unknown) HEARING (units [...] (unknown) date) unknown) (unknown) (no (unknown) (unknown) [facility] (units (unknown) date) [address] unknown) [place] [address] (unknown) (no (unknown) (unknown) Ketorolac (units (unkn [...] (unknown) Lymph # (Auto) (units (unknown) date) (6142-2870) /uL unknown) (unknown) (no (unknown) (unknown) Lymph # (Auto) 1700 (unit s (unknown) date) (9280-2741) /uL unknown) (unknown) (no (unknown) (unknown) Lymph [...] date) EMS unknown) (unknown) (no (unknown) (unknown) Geary # (Auto) (units ( unknown) date) (0-900) /uL unknown) (unknown) (no (unknown) (unknown) Geary # (Auto) 600 (units (unknown) date) (0-900) /uL unknown) (unknown) (no (unknown) (unknown) Geary % (Auto) (units ( unknown) date) (3-14) % unknown) (unknown) (no (unknown) (unknown) Geary % (Auto) 14.9 (units (unknown) date) H [...] Neut # (Auto) (units ( unknown) date) (0219-6070) /uL unknown) (unknown) (no (unknown) (unknown) Neut # (Auto) 1800 (units (unknown) date) (6203-2331) /uL unknown) (unknown) (no (unknown) (unknown) Neut [...] (units (unknown) date) rhythm rate of 72 [place] unknown) 130 QRS of 98 QTC 499. [...] (Negative) (unknown) (no (unknown) (unknown) Ur Specific Midnight (unit s (unknown) date) (1.000-1.035) unknown) (unknown) (no (unknown) (unknown) Ur Specific Midnight (unit s (unknown) date) 1.010 (1.000-1.035) unknown) [...] He met with (units (unknown) date) our criminal justice social worker as unknown) he has been [...] (unknown) date) unknown) (unknown) (no (unknown) (unknown) [id number] (units (unkno wn) date) unknown) (unknown) (no [...] (unknown) (unknown) : 1970 (units (unknown) date) Acct:[id number] unknown) (unknown) (no (unknown) (unknown) Date Patient [...] wn) date) unknown) (unknown) (no (unknown) (unknown) [facility] (units (unknown) date) [address] unknown) [place] [address] (unknown) (no (unknown) (unknown) LOSS AT (units [...] (unknown) date) unknown) (unknown) (no (unknown) (unknown) Geary # (Auto) 600 (units (unknown) date) unknown) (unknown) (no (unknown) (unknown) Geary # (Auto) (units ( unknown) date) unknown) (unknown) (no (unknown) (unknown) Geary % (Auto) 14.9 (units (unknown) date) H unknown) (unknown) (no (unknown) (unknown) Geary % (Auto) (units ( unknown) date) unknown) [...] (units (unkn own) date) Genesis Dunn unknown) THERAPEUTIC RECREATION LEADER-BC (unknown) (no (unknown) (unknown) Pulse Oximetry 91 [...] (unknown) Ur Specific (units (un known) date) Midnight 1.010 unknown) (unknown) (no (unknown) (unknown) Ur Specific (units (un known) date) Midnight unknown) (unknown) (no (unknown) (unknown) Urine Appearance [...] (unknown) (no date) (unknown) (unknown) 237 mg/dl 66957 -2 (unknown) (no date) (unknown) (unknown) 9.9 [...] (unknown) date) unknown) (unknown) (no (unknown) (unknown) [id number] (units (unkno wn) date) unknown) (unknown) (no [...] (unknown) (unknown) : 1970 (units (unknown) date) Acct:[id number] unknown) (unknown) (no (unknown) (unknown) Date of [...] (unknown) date) unknown) (unknown) (no (unknown) (unknown) [facility] (units (unknown) date) [address] unknown) [place] [address] (unknown) (no (unknown) (unknown) Ketorolac (units (unkn [...] (unknown) Lymph # (Auto) (units (unknown) date) (6782-1559) /uL unknown) (unknown) (no (unknown) (unknown) Lymph # (Auto) 1700 (unit s (unknown) date) (2180-9728) /uL unknown) (unknown) (no (unknown) (unknown) Lymph [...] date) EMS unknown) (unknown) (no (unknown) (unknown) Geary # (Auto) (units ( unknown) date) (0-900) /uL unknown) (unknown) (no (unknown) (unknown) Geary # (Auto) 600 (units (unknown) date) (0-900) /uL unknown) (unknown) (no (unknown) (unknown) Geary % (Auto) (units ( unknown) date) (3-14) % unknown) (unknown) (no (unknown) (unknown) Geary % (Auto) 14.9 (units (unknown) date) H [...] Neut # (Auto) (units ( unknown) date) (5036-6595) /uL unknown) (unknown) (no (unknown) (unknown) Neut # (Auto) 1800 (units (unknown) date) (1229-5506) /uL unknown) (unknown) (no (unknown) (unknown) Neut [...] (units (unkno wn) date) Octavio Romo Glenny MR#: unknown) M00 (unknown) (no (unknown) [...] (units (unknown) date) rhythm rate of 72 [place] unknown) 130 QRS of 98 QTC 499. [...] (Negative) (unknown) (no (unknown) (unknown) Ur Specific Midnight (unit s (unknown) date) (1.000-1.035) unknown) (unknown) (no (unknown) (unknown) Ur Specific Midnight (unit s (unknown) date) 1.010 (1.000-1.035) unknown) [...] He met with (units (unknown) date) our criminal justice social worker as unknown) he has been [...] permanently unknown) disabled (unknown) (no (unknown) (unknown) [id number] (units (unkno wn) date) unknown) (unknown) (no [...] (unknown) (unknown) : 1970 (units (unknown) date) Acct:[id number] unknown) (unknown) (no (unknown) (unknown) Date Patient [...] 01/15/23 @ unknown) 02:24 by Genesis Dunn [facility]-) (unknown) (no (unknown) (unknown) Father [...] wn) date) unknown) (unknown) (no (unknown) (unknown) [facility] (units (unknown) date) [address] [place] [address] unknown) [place] [address] (unknown) (no (unknown) (unknown) LOSS AT (units [...] 01/15/23 unknown) @ 02:22 by Genesis Dunn [facility]) (unknown) (no (unknown) (unknown) Medication [...] (unknown) date) unknown) (unknown) (no (unknown) (unknown) Geary # (Auto) 600 (units (unknown) date) unknown) (unknown) (no (unknown) (unknown) Geary # (Auto) (units ( unknown) date) unknown) (unknown) (no (unknown) (unknown) Geary % (Auto) 14.9 (units (unknown) date) H unknown) (unknown) (no (unknown) (unknown) Geary % (Auto) (units ( unknown) date) unknown) [...] (units (unkn own) date) Genesis Dunn unknown) THERAPEUTIC RECREATION LEADER-BC (unknown) (no (unknown) (unknown) Pulse Oximetry 91 [...] (unknown) Ur Specific (units (un known) date) Midnight 1.010 unknown) (unknown) (no (unknown) (unknown) Ur Specific (units (un known) date) Midnight unknown) (unknown) (no (unknown) (unknown) Urine Appearance [...] (unknown) (no (unknown) (unknown) [SHELLFISH (units (unk n) date) DERIVED] LIKE IT unknown) (unknown) (no [...] Patient was seen unknown) and evaluated by ENTERPRISE RECORDS ANALYST in the ED made multiple (unknown) (no [...] permanently unknown) disabled (unknown) (no (unknown) (unknown) [id number] (units (unkno wn) date) unknown) (unknown) (no [...] (unknown) (unknown) : 1970 (units (unknown) date) Acct:[id number] unknown) (unknown) (no (unknown) (unknown) Date Patient [...] date) (Updated 01/15/23 @ unknown) 02:24 [facility] (unknown) (no (unknown) (unknown) Father Diabetes [...] wn) date) unknown) (unknown) (no (unknown) (unknown) [facility] (units (unknown) date) [address] [place] [address] unknown) [place] [address] (unknown) (no (unknown) (unknown) JVD (units (unkno [...] 01/15/23 unknown) @ 02:22 by Genesis Dunn [facility]) (unknown) (no (unknown) (unknown) Medication [...] (unknown) date) unknown) (unknown) (no (unknown) (unknown) Geary # (Auto) 600 (units (unknown) date) unknown) (unknown) (no (unknown) (unknown) Geary # (Auto) (units ( unknown) date) unknown) (unknown) (no (unknown) (unknown) Geary % (Auto) 14.9 (units (unknown) date) H unknown) (unknown) (no (unknown) (unknown) Geary % (Auto) (units ( unknown) date) unknown) [...] (units (unkn own) date) Genesis Dunn unknown) THERAPEUTIC RECREATION LEADER-BC (unknown) (no (unknown) (unknown) Psych: Patient has [...] (Updated 01/15/23 @ unknown) 02:23 by YONIS ChairezPJaxson) (unknown) (no (unknown) (unknown) Sodium 140 (units (unk nown) date) unknown) (unknown) (no (unknown) (unknown) Sodium (units (unkno wn) date) unknown) (unknown) (no (unknown) (unknown) Solostar U-100 (units (unknown) date) Insulin) unknown) (unknown) (no (unknown) (unknown) Surgical History (units (unknown) date) (Reviewed 01/15/23 unknown) @ 02:22 by Genesis Dunn [facility]) (unknown) (no (unknown) (unknown) Time Patient Seen: [...] (unknown) Ur Specific (units (un known) date) Midnight 1.010 unknown) (unknown) (no (unknown) (unknown) Ur Specific (units (un known) date) Midnight unknown) (unknown) (no (unknown) (unknown) Urine Appearance [...] Patient was seen unknown) and evaluated by ENTERPRISE RECORDS ANALYST in the ED made multiple (unknown) (no [...] (unknown) date) unknown) (unknown) (no (unknown) (unknown) [id number] (units (unkno wn) date) unknown) (unknown) (no [...] (unknown) (unknown) : 1970 (units (unknown) date) Acct:[id number] unknown) (unknown) (no (unknown) (unknown) Date Patient [...] 01/15/23 @ unknown) 02:24 by Genesis Dunn [facility]) (unknown) (no (unknown) (unknown) Father Diabetes (units [...] wn) date) unknown) (unknown) (no (unknown) (unknown) [facility] (units (unknown) date) [address] [place] [address] unknown) [place] [address] (unknown) (no (unknown) (unknown) JVD (units (unkno [...] (Reviewed 01/15/23 unknown) @ 02:22 [facility] (unknown) (no (unknown) (unknown) Medication (units [...] (unknown) date) unknown) (unknown) (no (unknown) (unknown) Geary # (Auto) 600 (units (unknown) date) unknown) (unknown) (no (unknown) (unknown) Geary # (Auto) (units ( unknown) date) unknown) (unknown) (no (unknown) (unknown) Geary % (Auto) 14.9 (units (unknown) date) H unknown) (unknown) (no (unknown) (unknown) Geary % (Auto) (units ( unknown) date) unknown) [...] (units (unkn own) date) Genesis Dunn unknown) THERAPEUTIC RECREATION LEADER-BC (unknown) (no (unknown) (unknown) Psych: Patient has [...] (unknown) Ur Specific (units (un known) date) Midnight 1.010 unknown) (unknown) (no (unknown) (unknown) Ur Specific (units (un known) date) Midnight unknown) (unknown) (no (unknown) (unknown) Urine Appearance [...] unknown) Patient was seen and evaluated by ENTERPRISE RECORDS ANALYST in the (unknown) (no (unknown) (unknown) bruising [...] Patient was seen unknown) and evaluated by ENTERPRISE RECORDS ANALYST in the ED made multiple (unknown) (no [...] (unknown) -patient admitted (units (unknown) date) under [facility] protocol unknown) (unknown) (no (unknown) (unknown) -was given (units (unk nown) date) phenobarbital unknown) loading dose in ED, (unknown) (no (unknown) (unknown) -will trend ETOH, (units (unknown) date) ordered ammonia, unknown) monitor electrolytes (unknown) (no (unknown) (unknown) [id number] (units (unkno wn) date) unknown) (unknown) (no [...] (unknown) (unknown) : 1970 (units (unknown) date) Acct:[id number] unknown) (unknown) (no (unknown) (unknown) Date Patient [...] wn) date) unknown) (unknown) (no (unknown) (unknown) [facility] (units (unknown) date) [address] unknown) [place] [address] (unknown) (no (unknown) (unknown) JVD (units (unkno [...] 01/15/23 unknown) @ 02:22 by Genesis Dunn [facility]) (unknown) (no (unknown) (unknown) Medication [...] (unknown) date) unknown) (unknown) (no (unknown) (unknown) Geary # (Auto) 600 (units (unknown) date) unknown) (unknown) (no (unknown) (unknown) Geary # (Auto) (units ( unknown) date) unknown) (unknown) (no (unknown) (unknown) Geary % (Auto) 14.9 (units (unknown) date) H unknown) (unknown) (no (unknown) (unknown) Geary % (Auto) (units ( unknown) date) unknown) [...] (units (unkn own) date) Genesis Dunn unknown) THERAPEUTIC RECREATION LEADER-BC (unknown) (no (unknown) (unknown) Psych: Patient has [...] (unknown) Ur Specific (units (un known) date) Midnight 1.010 unknown) (unknown) (no (unknown) (unknown) Ur Specific (units (un known) date) Midnight unknown) (unknown) (no (unknown) (unknown) Urine Appearance [...] unknown) Patient was seen and evaluated by ENTERPRISE RECORDS ANALYST in the (unknown) (no (unknown) (unknown) bruising [...] Patient was seen unknown) and evaluated by ENTERPRISE RECORDS ANALYST in the ED made multiple (unknown) (no [...] or T-wave changes. (unknown) (no (unknown) (unknown) -ENTERPRISE RECORDS ANALYST Consult (units (u nknown) date) unknown) (unknown) [...] unknown) monitor electrolytes (unknown) (no (unknown) (unknown) [id number] (units (unkno wn) date) unknown) (unknown) (no [...] (unknown) (unknown) : 1970 (units (unknown) date) Acct:[id number] unknown) (unknown) (no (unknown) (unknown) DVT/VTE (units [...] 01/15/23 @ unknown) 02:24 by Genesis Dunn [facility]) (unknown) (no (unknown) (unknown) Father Diabetes (units [...] wn) date) unknown) (unknown) (no (unknown) (unknown) [facility] (units (unknown) date) [address] [place] [address] unknown) [place] [address] (unknown) (no (unknown) (unknown) JVD (units (unkno [...] (unknown) date) unknown) (unknown) (no (unknown) (unknown) Geary # (Auto) 600 (units (unknown) date) unknown) (unknown) (no (unknown) (unknown) Geary # (Auto) (units ( unknown) date) unknown) (unknown) (no (unknown) (unknown) Geary % (Auto) 14.9 (units (unknown) date) H unknown) (unknown) (no (unknown) (unknown) Geary % (Auto) (units ( unknown) date) unknown) [...] (units (unkn own) date) Genesis Dunn unknown) THERAPEUTIC RECREATION LEADER-BC (unknown) (no (unknown) (unknown) Psych: Patient has [...] by DOUG Chairez) (unknown) (no (unknown) (unknown) Surrogate decision [...] (unknown) Ur Specific (units (un known) date) Midnight 1.010 unknown) (unknown) (no (unknown) (unknown) Ur Specific (units (un known) date) Midnight unknown) (unknown) (no (unknown) (unknown) Urine Appearance [...] unknown) Patient was seen and evaluated by ENTERPRISE RECORDS ANALYST in the (unknown) (no (unknown) (unknown) bruising [...] Patient was seen unknown) and evaluated by ENTERPRISE RECORDS ANALYST in the ED made multiple (unknown) (no [...] or T-wave changes. (unknown) (no (unknown) (unknown) -ENTERPRISE RECORDS ANALYST Consult (units (u nknown) date) unknown) (unknown) [...] unknown) monitor electrolytes (unknown) (no (unknown) (unknown) [id number] (units (unkno wn) date) unknown) (unknown) (no [...] (unknown) (unknown) : 1970 (units (unknown) date) Acct:[id number] unknown) (unknown) (no (unknown) (unknown) DVT/VTE (units [...] 01/15/23 @ unknown) 02:24 by Genesis Dunn [facility]) (unknown) (no (unknown) (unknown) Father Diabetes (units [...] wn) date) unknown) (unknown) (no (unknown) (unknown) [facility] (units (unknown) date) [address] unknown) [place] [address] (unknown) (no (unknown) (unknown) JVD (units (unkno [...] (unknown) date) unknown) (unknown) (no (unknown) (unknown) Geary # (Auto) 600 (units (unknown) date) unknown) (unknown) (no (unknown) (unknown) Geary # (Auto) (units ( unknown) date) unknown) (unknown) (no (unknown) (unknown) Geary % (Auto) 14.9 (units (unknown) date) H unknown) (unknown) (no (unknown) (unknown) Geary % (Auto) (units ( unknown) date) unknown) [...] (units (unkn own) date) Genesis Dunn unknown) THERAPEUTIC RECREATION LEADER-BC (unknown) (no (unknown) (unknown) Psych: Patient has [...] by DOUG Chairez) (unknown) (no (unknown) (unknown) Surrogate decision [...] (unknown) Ur Specific (units (un known) date) Midnight 1.010 unknown) (unknown) (no (unknown) (unknown) Ur Specific (units (un known) date) Midnight unknown) (unknown) (no (unknown) (unknown) Urine Appearance [...] unknown) Patient was seen and evaluated by ENTERPRISE RECORDS ANALYST in the (unknown) (no (unknown) (unknown) bruising [...] Patient was seen unknown) and evaluated by ENTERPRISE RECORDS ANALYST in the ED made multiple (unknown) (no [...] (unknown) date) unknown) (unknown) (no (unknown) (unknown) [id number] (units (unkno wn) date) unknown) (unknown) (no [...] (unknown) (unknown) : 1970 (units (unknown) date) Acct:[id number] unknown) (unknown) (no (unknown) (unknown) Date of [...] 01/15/23 unknown) @ 02:24 by Genesis Dunn [facility]) (unknown) (no (unknown) (unknown) Father Diabetes (units [...] date) history: unknown) (unknown) (no (unknown) (unknown) [facility] (units (unknown) date) [address] unknown) [place] [address] (unknown) (no (unknown) (unknown) Laboratory (units (unk [...] by DOUG Chairez) (unknown) (no (unknown) (unknown) Geary # (Auto) (units ( unknown) date) 1000 H unknown) (unknown) (no (unknown) (unknown) Geary # (Auto) (units ( unknown) date) 200 unknown) (unknown) (no (unknown) (unknown) Geary # (Auto) (units ( unknown) date) unknown) (unknown) (no (unknown) (unknown) Geary % (Auto) (units ( unknown) date) 14.4 H unknown) (unknown) (no (unknown) (unknown) Geary % (Auto) (units ( unknown) date) 4.1 unknown) (unknown) (no (unknown) (unknown) Geary % (Auto) (units ( unknown) date) unknown) [...] been (units (unknown) date) admitted to unknown) [facility] last week secondary to his [...] date) (Reviewed unknown) 01/15/23 @ 02:22 by Genesis Dunn [facility]) (unknown) (no (unknown) (unknown) Temperature 98.1 (units [...] date) unknown) --- (unknown) (no (unknown) (unknown) [id number] (units (unkno wn) date) unknown) (unknown) (no (unknown) (unknown) 01/15/23 (units (unkno wn) date) unknown) (unknown) (no (unknown) (unknown) [facility] (units (unknown) date) unknown) (unknown) (no (unknown) (unknown) : : [address] (units (unknown) date) : : unknown) (unknown) (no (unknown) (unknown) : : [id number] : : (units ( unknown) date) unknown) (unknown) (no (unknown) (unknown) : : MAYELIN Barnes (units (unknown) date) : : unknown) (unknown) (no (unknown) (unknown) : : Phone: [phone] : (units (unknown) date) : unknown) (unknown) (no (unknown) (unknown) :Account #: (units (un known) date) [id number] Gender: unknown) Male BSA: 2.2 m2 : (unknown) (no (unknown) (unknown) :: 1970 (units (unknown) date) Age: 53 yrs BP: unknown) 101/67 mmHg: (unknown) (no (unknown) (unknown) :Hospital MRN #: (units (unknown) date) [id number] unknown) ReadingLocation: Weight: 207 lb : (unknown) [...] (unknown) (unknown) Accession Number: (units (unknown) date) [id number] unknown) (unknown) (no (unknown) (unknown) Age/Sex: 53 / M (units (unknown) date) Date of Service: unknown) (unknown) (no (unknown) (unknown) [place] (units ( unknown) date) [id number] unknown) (unknown) (no (unknown) (unknown) Ao V2 [...] (unknown) (unknown) : 1970 (units (unknown) date) Acct:[id number] unknown) (unknown) (no (unknown) (unknown) Doppler (units [...] date) Summary unknown) (unknown) (no (unknown) (unknown) [facility] (units (unknown) date) unknown) (unknown) (no (unknown) (unknown) [place] (units (unkno wn) date) unknown) (unknown) (no [...] (unknown) date) unknown) (unknown) (no (unknown) (unknown) [id number] (units (unkno wn) date) unknown) (unknown) (no [...] (unknown) (unknown) : 1970 (units (unknown) date) Acct:[id number] unknown) (unknown) (no (unknown) (unknown) Date of [...] 01/15/23 @ unknown) 02:24 by Genesis Dunn [facility]) (unknown) (no (unknown) (unknown) Father Diabetes (units [...] (unknown) date) unknown) (unknown) (no (unknown) (unknown) [facility] (units (unknown) date) [address] unknown) [place] [address] (unknown) (no (unknown) (unknown) Laboratory Results (units [...] 01/15/23 @ unknown) 02:22 by Genesis Dunn [facility]) (unknown) (no (unknown) (unknown) Geary # (Auto) 1000 (units (unknown) date) H unknown) (unknown) (no (unknown) (unknown) Geary # (Auto) 200 (units (unknown) date) unknown) (unknown) (no (unknown) (unknown) Geary # (Auto) (units ( unknown) date) unknown) (unknown) (no (unknown) (unknown) Geary % (Auto) 14.4 (units (unknown) date) H unknown) (unknown) (no (unknown) (unknown) Geary % (Auto) 4.1 (units (unknown) date) unknown) (unknown) (no (unknown) (unknown) Geary % (Auto) (units ( unknown) date) unknown) [...] had been (units (unknown) date) admitted to [facility] unknown) [facility] last week secondary to his alcohol (unknown) [...] s (unknown) date) does dual diagnosis. unknown) ENTERPRISE RECORDS ANALYST met with the patient today and (unknown) [...] (unknown) date) unknown) (unknown) (no (unknown) (unknown) [id number] (units (unkno wn) date) unknown) (unknown) (no [...] (unknown) (unknown) : 1970 (units (unknown) date) Acct:[id number] unknown) (unknown) (no (unknown) (unknown) Date of [...] (unknown) date) unknown) (unknown) (no (unknown) (unknown) [facility] (units (unknown) date) [address] unknown) [place] [address] (unknown) (no (unknown) (unknown) Laboratory Results (units [...] date) (Reviewed 01/15/23 @ unknown) 02:22 by SOMMER Chairez) (unknown) (no (unknown) (unknown) Geary # (Auto) 500 (units (unknown) date) unknown) (unknown) (no (unknown) (unknown) Geary % (Auto) 9.0 (units (unknown) date) unknown) [...] date) (Updated 01/15/23 @ unknown) 02:23 by Genesis Dunn [facility]) (unknown) (no (unknown) (unknown) Sodium 133 L (units (u nknown) date) unknown) (unknown) (no (unknown) (unknown) Sodium is 131 (units ( unknown) date) today. Will monitor. unknown) (unknown) (no (unknown) (unknown) Subjective (units (unk nown) date) unknown) (unknown) (no (unknown) (unknown) Surgical History (units (unknown) date) (Reviewed 01/15/23 @ unknown) 02:22 by Genesis Dunn [facility]) (unknown) (no (unknown) (unknown) Temperature 98.7 F [...] s (unknown) date) does dual diagnosis. unknown) ENTERPRISE RECORDS ANALYST met with the patient today and (unknown) [...] (unknown) date) unknown) (unknown) (no (unknown) (unknown) [id number] (units (unkno wn) date) unknown) (unknown) (no [...] (unknown) (unknown) : 1970 (units (unknown) date) Acct:[id number] unknown) (unknown) (no (unknown) (unknown) Date of [...] 01/15/23 unknown) @ 02:24 by Genesis Dunn [facility]) (unknown) (no (unknown) (unknown) Father Diabetes (units [...] (unknown) date) unknown) (unknown) (no (unknown) (unknown) [facility] (units (unknown) date) [address] unknown) [place] [address] (unknown) (no (unknown) (unknown) Laboratory (units (unk [...] 01/15/23 unknown) @ 02:22 by Genesis Dunn [facility]) (unknown) (no (unknown) (unknown) Geary # (Auto) 500 (units (unknown) date) unknown) (unknown) (no (unknown) (unknown) Geary % (Auto) 9.0 (units (unknown) date) unknown) [...] (unknown) date) that does dual unknown) diagnosis. ENTERPRISE RECORDS ANALYST met with the patient today and (unknown) [...] (unknown) date) unknown) (unknown) (no (unknown) (unknown) [id number] (units (unkno wn) date) unknown) (unknown) (no [...] (unknown) (unknown) : 1970 (units (unknown) date) Acct:[id number] unknown) (unknown) (no (unknown) (unknown) Date of [...] 01/15/23 unknown) @ 02:24 by Genesis Dunn [facility]) (unknown) (no (unknown) (unknown) Father Diabetes (units [...] (unknown) date) unknown) (unknown) (no (unknown) (unknown) [facility] (units (unknown) date) [address] unknown) [place] [address] (unknown) (no (unknown) (unknown) Laboratory (units (unk [...] 01/15/23 unknown) @ 02:22 by Genesis Dunn [facility]) (unknown) (no (unknown) (unknown) Geary # (Auto) 300 (units (unknown) date) unknown) (unknown) (no (unknown) (unknown) Geary # (Auto) (units ( unknown) date) unknown) (unknown) (no (unknown) (unknown) Geary % (Auto) 8.3 (units (unknown) date) unknown) (unknown) (no (unknown) (unknown) Geary % (Auto) (units ( unknown) date) unknown) [...] date) (Updated 01/15/23 unknown) @ 02:23 by Genesis Dunn [facility]) (unknown) (no (unknown) (unknown) Sodium 133 L [...] 01/15/23 unknown) @ 02:22 by Genesis Dunn [facility]) (unknown) (no (unknown) (unknown) Temperature 97.1 (units [...] (unknown) date) that does dual unknown) diagnosis. ENTERPRISE RECORDS ANALYST met with the patient today and (unknown) [...] contributing to weakness. (unknown) (no (unknown) (unknown) [id number] (units (unkno wn) date) unknown) (unknown) (no [...] (unknown) (unknown) : 1970 (units (unknown) date) Acct:[id number] unknown) (unknown) (no (unknown) (unknown) Date of [...] (unknown) date) unknown) (unknown) (no (unknown) (unknown) [facility] (units (unknown) date) [address] unknown) [place] [address] (unknown) (no (unknown) (unknown) Laboratory (units (unk [...] by DOUG Chairez) (unknown) (no (unknown) (unknown) Geary # (Auto) 300 (units (unknown) date) unknown) (unknown) (no (unknown) (unknown) Geary # (Auto) (units ( unknown) date) unknown) (unknown) (no (unknown) (unknown) Geary % (Auto) 8.3 (units (unknown) date) unknown) (unknown) (no (unknown) (unknown) Geary % (Auto) (units ( unknown) date) unknown) [...] (unknown) date) that does dual unknown) diagnosis. ENTERPRISE RECORDS ANALYST met with the patient today and (unknown) [...] contributing to weakness. (unknown) (no (unknown) (unknown) [id number] (units (unkno wn) date) unknown) (unknown) (no (unknown) (unknown) 01/17/23 05:25 (units (unknown) date) unknown) (unknown) (no (unknown) (unknown) 01/18/23 1520 (units ( unknown) date) unknown) (unknown) (no (unknown) (unknown) 01/18/23 (units (unkno wn) date) unknown) (unknown) (no (unknown) (unknown) 08:00 01/18/23 (units (unknown) date) unknown) (unknown) (no (unknown) [...] (unknown) (unknown) : 1970 (units (unknown) date) Acct:[id number] unknown) (unknown) (no (unknown) (unknown) Date of [...] (unknown) date) unknown) (unknown) (no (unknown) (unknown) [facility] (units (unknown) date) [address] [place] [address] unknown) [place] [address] (unknown) (no (unknown) (unknown) Labs (units (unkno [...] Patient: (units (unkno wn) date) DemetriusOctavio Glenny unknown) MR#: [id number] (unknown) (no (unknown) [...] (unknown) date) that does dual unknown) diagnosis. ENTERPRISE RECORDS ANALYST met with the patient today and (unknown) [...] (unknown) date) unknown) (unknown) (no (unknown) (unknown) [id number] (units (unkno wn) date) unknown) (unknown) (no [...] unknown) (unknown) (no (unknown) (unknown) Consult to ENTERPRISE RECORDS ANALYST - (units (unknown) date) Cardiopulmonary Supervisor unknown) Routine (unknown) (no (unknown) (unknown) Consult [...] (unknown) (unknown) : 1970 (units (unknown) date) Acct:[id number] unknown) (unknown) (no (unknown) (unknown) Date Patient [...] 01/15/23 @ unknown) 02:24 by Genesis Dunn, [facility]) (unknown) (no (unknown) (unknown) Father Diabetes (units [...] diabetes unknown) mellitus (unknown) (no (unknown) (unknown) [facility] (units (unknown) date) [address] [address] unknown) [place] [address] (unknown) (no (unknown) (unknown) Laboratory Results (units [...] wn) date) unknown) (unknown) (no (unknown) (unknown) ENTERPRISE RECORDS ANALYST Consult needed (units (unknown) date) for:: Substance unknown) Abuse Assess (unknown) (no (unknown) (unknown) Magnesium 1.4 L (units (unknown) date) unknown) (unknown) (no (unknown) (unknown) Luca Dillard, (units (unknown) date) DO unknown) (unknown) (no (unknown) (unknown) Medical History (units (unknown) date) (Reviewed 01/15/23 unknown) @ 02:22 by Genesis Dunn [facility]) (unknown) (no (unknown) (unknown) Octavio Romo is a (units (unknown) date) 53-year-old male unknown) with known history of alcohol abuse, HTN, (unknown) (no (unknown) (unknown) Mild, Will (units (unk nown) date) monitor. unknown) (unknown) (no (unknown) (unknown) Geary # (Auto) 400 (units (unknown) date) unknown) (unknown) (no (unknown) (unknown) Geary % (Auto) 7.7 (units (unknown) date) unknown) [...] Patient was seen unknown) and evaluated by ENTERPRISE RECORDS ANALYST in the ED made multiple (unknown) (no [...] (unknown) date) that does dual unknown) diagnosis.? ENTERPRISE RECORDS ANALYST met with the patient today and (unknown) [...] (unknown) date) unknown) (unknown) (no (unknown) (unknown) [id number] (units (unkno wn) date) unknown) (unknown) (no [...] unknown) (unknown) (no (unknown) (unknown) Consult to ENTERPRISE RECORDS ANALYST - (units (unknown) date) Cardiopulmonary Supervisor unknown) Routine (unknown) (no (unknown) (unknown) Consult [...] (unknown) (unknown) : 1970 (units (unknown) date) Acct:[id number] unknown) (unknown) (no (unknown) (unknown) Date Patient [...] 01/15/23 @ unknown) 02:24 by Genesis Dunn [facility]) (unknown) (no (unknown) (unknown) Father Diabetes (units [...] diabetes unknown) mellitus (unknown) (no (unknown) (unknown) [facility] (units (unknown) date) [address] unknown) [place] [address] (unknown) (no (unknown) (unknown) Laboratory Results (units [...] wn) date) unknown) (unknown) (no (unknown) (unknown) ENTERPRISE RECORDS ANALYST Consult needed (units (unknown) date) for:: Substance [...] date) monitor. unknown) (unknown) (no (unknown) (unknown) Geary # (Auto) 400 (units (unknown) date) unknown) (unknown) (no (unknown) (unknown) Geary % (Auto) 7.7 (units (unknown) date) unknown) [...] 01/15/23 unknown) @ 02:22 by Genesis Dunn [facility]) (unknown) (no (unknown) (unknown) TAKE 1 CAPSULE [...] Patient was seen unknown) and evaluated by ENTERPRISE RECORDS ANALYST in the ED made multiple (unknown) (no [...] (unknown) date) that does dual unknown) diagnosis.? ENTERPRISE RECORDS ANALYST met with the patient today and (unknown) [...] (unknown) date) unknown) (unknown) (no (unknown) (unknown) [id number] (units (unkno wn) date) unknown) (unknown) (no [...] (unknown) Blood Pressure (units (unknown) date) 127/74 127/ unknown) 127/85 (unknown) (no (unknown) (unknown) Blood [...] unknown) (unknown) (no (unknown) (unknown) Consult to ENTERPRISE RECORDS ANALYST - (units (unknown) date) Cardiopulmonary Supervisor unknown) Routine (unknown) (no (unknown) (unknown) Consult [...] (unknown) (unknown) : 1970 (units (unknown) date) Acct:[id number] unknown) (unknown) (no (unknown) (unknown) Date Patient [...] 01/15/23 @ unknown) 02:24 by Genesis Dunn THERAPEUTIC RECREATION LEADER-) (unknown) (no (unknown) (unknown) Father Diabetes (units [...] diabetes unknown) mellitus (unknown) (no (unknown) (unknown) [facility] (units (unknown) date) [address] [address] unknown) [place] [address] (unknown) (no (unknown) (unknown) Laboratory Results (units [...] wn) date) unknown) (unknown) (no (unknown) (unknown) ENTERPRISE RECORDS ANALYST Consult needed (units (unknown) date) for:: Substance unknown) Abuse Assess (unknown) (no (unknown) (unknown) Magnesium 1.4 L (units (unknown) date) unknown) (unknown) (no (unknown) (unknown) Luca Dillard, (units (unknown) date) DO unknown) (unknown) (no (unknown) (unknown) Medical History (units (unknown) date) (Reviewed 01/15/23 unknown) @ 02:22 [facility] (unknown) (no (unknown) (unknown) Octavio Romo is a (units (unknown) date) 53-year-old male unknown) with known history of alcohol abuse, HTN, (unknown) (no (unknown) (unknown) Mild, Will (units (unk nown) date) monitor. unknown) (unknown) (no (unknown) (unknown) Geary # (Auto) 400 (units (unknown) date) unknown) (unknown) (no (unknown) (unknown) Geary % (Auto) 7.7 (units (unknown) date) unknown) [...] 01/15/23 unknown) @ 02:22 by Genesis Dunn [facility]) (unknown) (no (unknown) (unknown) TAKE 1 CAPSULE [...] Patient was seen unknown) and evaluated by ENTERPRISE RECORDS ANALYST in the ED made multiple (unknown) (no [...] (unknown) date) that does dual unknown) diagnosis.? ENTERPRISE RECORDS ANALYST met with the patient today and (unknown) (no (unknown) (unknown) furosemide 20 mg (units (unknown) date) tablet unknown) (unknown) (no (unknown) (unknown) head CT negative, (units (unknown) date) CT of unknown) abdomen/pelvis multiple remote left rib fractures, left (unknown) (no (unknown) (unknown) himself (units (unkno wn) date) potentially in unknown) [place], [place] (unknown) (no (unknown) (unknown) household members: [...] (unknown) date) unknown) (unknown) (no (unknown) (unknown) [id number] (units (unkno wn) date) unknown) (unknown) (no [...] unknown) (unknown) (no (unknown) (unknown) Consult to ENTERPRISE RECORDS ANALYST - (units (unknown) date) Cardiopulmonary Supervisor unknown) Routine (unknown) (no (unknown) (unknown) Consult [...] (unknown) (unknown) : 1970 (units (unknown) date) Acct:[id number] unknown) (unknown) (no (unknown) (unknown) Date Patient [...] 01/15/23 @ unknown) 02:24 by Genesis Dunn [facility]) (unknown) (no (unknown) (unknown) Father Diabetes (units [...] diabetes unknown) mellitus (unknown) (no (unknown) (unknown) [facility] (units (unknown) date) [address] unknown) [place] [address] (unknown) (no (unknown) (unknown) Laboratory Results (units [...] wn) date) unknown) (unknown) (no (unknown) (unknown) ENTERPRISE RECORDS ANALYST Consult needed (units (unknown) date) for:: Substance unknown) Abuse Assess (unknown) (no (unknown) (unknown) Magnesium 1.4 L (units (unknown) date) unknown) (unknown) (no (unknown) (unknown) Luca Dillard, (units (unknown) date) DO unknown) (unknown) (no (unknown) (unknown) Medical History (units (unknown) date) (Reviewed 01/15/23 unknown) @ 02:22 by Genesis Dunn, THERAPEUTIC RECREATION LEADER-BC) (unknown) (no (unknown) (unknown) Octavio Romo is a (units (unknown) date) 53-year-old male unknown) with known history of alcohol abuse, HTN, (unknown) (no (unknown) (unknown) Mild, Will (units (unk nown) date) monitor. unknown) (unknown) (no (unknown) (unknown) Geary # (Auto) 400 (units (unknown) date) unknown) (unknown) (no (unknown) (unknown) Geary % (Auto) 7.7 (units (unknown) date) unknown) [...] date) (Updated 01/15/23 @ unknown) 02:23 by Genesis Dunn, THERAPEUTIC RECREATION LEADER-BC) (unknown) (no (unknown) (unknown) Sodium 137 (units [...] Patient was seen unknown) and evaluated by ENTERPRISE RECORDS ANALYST in the ED made multiple (unknown) (no [...] (unknown) date) that does dual unknown) diagnosis.? ENTERPRISE RECORDS ANALYST met with the patient today and (unknown) (no (unknown) (unknown) furosemide 20 mg (units (unknown) date) tablet unknown) (unknown) (no (unknown) (unknown) head CT negative, (units (unknown) date) CT of unknown) abdomen/pelvis multiple remote left rib fractures, left (unknown) (no (unknown) (unknown) himself (units (unkno wn) date) potentially in unknown) [place], [place] (unknown) (no (unknown) (unknown) household members: [...] (unknown) date) unknown) (unknown) (no (unknown) (unknown) [id number] (units (unkno wn) date) unknown) (unknown) (no [...] unknown) (unknown) (no (unknown) (unknown) Consult to ENTERPRISE RECORDS ANALYST - (units (unknown) date) Cardiopulmonary Supervisor unknown) Routine (unknown) (no (unknown) (unknown) Consult [...] (unknown) (unknown) : 1970 (units (unknown) date) Acct:[id number] unknown) (unknown) (no (unknown) (unknown) Date Patient [...] 01/15/23 @ unknown) 02:24 by Genesis Dunn [facility]) (unknown) (no (unknown) (unknown) Father Diabetes (units [...] diabetes unknown) mellitus (unknown) (no (unknown) (unknown) [facility] (units (unknown) date) [address] [place] [address] unknown) [place] [address] (unknown) (no (unknown) (unknown) Laboratory Results (units [...] wn) date) unknown) (unknown) (no (unknown) (unknown) ENTERPRISE RECORDS ANALYST Consult needed (units (unknown) date) for:: Substance unknown) Abuse Assess (unknown) (no (unknown) (unknown) Magnesium 1.4 L (units (unknown) date) unknown) (unknown) (no (unknown) (unknown) Luca Dillard, (units (unknown) date) DO unknown) (unknown) (no (unknown) (unknown) Medical History (units (unknown) date) (Reviewed 01/15/23 unknown) @ 02:22 by Genesis Dunn [facility]) (unknown) (no (unknown) (unknown) Octavio Romo is a (units (unknown) date) 53-year-old male unknown) with known history of alcohol abuse, HTN, (unknown) (no (unknown) (unknown) Mild, Will (units (unk nown) date) monitor. unknown) (unknown) (no (unknown) (unknown) Geary # (Auto) 400 (units (unknown) date) unknown) (unknown) (no (unknown) (unknown) Geary % (Auto) 7.7 (units (unknown) date) unknown) [...] (unkno wn) date) By:<Electronically unknown) signed by Luac Dillard D.O.> (unknown) (no (unknown) (unknown) Smoking Status: (units (unknown) date) Never smoker unknown) (unknown) (no (unknown) (unknown) Social History (units (unknown) date) (Updated 01/15/23 @ unknown) 02:23 [facility] ([facility]) (no (unknown) (unknown) Sodium 137 (units (unk nown) date) unknown) (unknown) (no (unknown) (unknown) Stand Alone Forms: (units (unknown) date) Patient Portal/API, unknown) Stroke Signs + Symptoms (unknown) (no (unknown) (unknown) Summary (units (unkno wn) date) unknown) (unknown) (no (unknown) (unknown) Surgical History (units (unknown) date) (Reviewed 01/15/23 unknown) @ 02:22 [facility] ([facility]) (no (unknown) (unknown) TAKE 1 [...] Patient was seen unknown) and evaluated by ENTERPRISE RECORDS ANALYST in the ED made multiple (unknown) (no [...] (unknown) date) that does dual unknown) diagnosis.? ENTERPRISE RECORDS ANALYST met with the patient today and (unknown) (no (unknown) (unknown) furosemide 20 mg (units (unknown) date) tablet unknown) (unknown) (no (unknown) (unknown) head CT negative, (units (unknown) date) CT of unknown) abdomen/pelvis multiple remote left rib fractures, left (unknown) (no (unknown) (unknown) himself (units (unkno wn) date) potentially in unknown) [place], [place] (unknown) (no (unknown) (unknown) household members: [...] facility 2023 00:00 Never smoked tobacco (finding) [facility] 2023-01-15 00:00 Never smoked tobacco (finding) [facility] Vital Signs date measurement value units 2023 [...]
[2023-02-07] MEDS ORDERED: SODIUM CHLORIDE 0.9% 1,000 ML IV STA (07:02)
[2023-02-07 07:10] LABS: BASOPHILS % (AUTO) 0.3 %; EOSINOPHILS # (AUTO) 0.2 10^3/uL (0.0-0.7); EOSINOPHILS % (AUTO) 2.5 %; HCT - HEMATOCRIT 37.8 % (42.0-52.0); HGB - HEMOGLOBIN 12.6 g/dL (14.0-18.0); LYMPHOCYTES # (AUTO) 2.6 10^3/uL (1.5-3.5); LYMPHOCYTES % (AUTO) 28.8 %; MEAN CORPUSCULAR HEMOGLOBIN 32.2 pg (27.0-31.0); MEAN CORPUSCULAR HGB CONC 33.3 g/dL (32.0-36.0); MEAN CORPUSCULAR VOLUME 96.7 fL (80.0-94.0); MEAN PLATELET VOLUME 10.2 fL (7.4-11.4); MONOCYTES # (AUTO) 0.8 10^3/uL (0.0-1.0); MONOCYTES % (AUTO) 8.2 %; NEUTROPHILS # (AUTO) 5.5 10^3/uL (1.5-6.6); NEUTROPHILS % (AUTO) 59.9 %; PLT - PLATELET COUNT 311 10^3/uL (130-450); RED BLOOD COUNT 3.91 10^6/uL (4.70-6.10); RED CELL DISTRIBUTION WIDTH 12.1 % (12.0-15.0); WHITE BLOOD COUNT 9.1 x10^3/uL (4.8-10.8)
--- NOTE | 2023-02-07 07:17 | ED Physician Documentation ---
History of Present Illness - Stated complaint Stated Complaint: SHAKING ALL OVER; CP - Chief complaint Chief Complaint: General - History obtained from History obtained from: Patient - Additonal information Additional information: Patient is driven to the emergency department by family. Approximately 30 to 45 minutes prior to arrival, patient took his first dose of naltrexone. This was prescribed to reduce alcohol cravings. The patient says his last drink of alcohol was 16 days ago. Within approximately 15 to 20 minutes of taking the naltrexone, patient developed rapid onset of generalized tremulousness, chest pain, dyspnea, anxiety. Patient has not taken this medication in the past. Note that patient has an intrathecal Dilaudid pump which has not been turned off. HPI and ROS are somewhat limited due to patient presenting in obvious distress. Review of Systems Cardiac: reports: Chest pain / pressure. denies: Palpitations Respiratory: reports: Dyspnea GI: denies: Abdominal Pain, Nausea, Vomiting Neurologic: denies: Headache PD PAST MEDICAL HISTORY - Past Medical History Cardiovascular: Hypertension, High cholesterol Respiratory: Sleep apnea Neuro: Other Endocrine/Autoimmune: Type 2 diabetes GI: GERD, Chronic constipation, Other : Other HEENT: None Psych: Depression, Bipolar disorder Musculoskeletal: Osteoarthritis, Chronic back pain Derm: Other - Past Surgical History Past Surgical History: No General: Appendectomy, Other Ortho: Carpal Tunnel surgery, Spine surgery, Other /MEDICAL DOCTOR NUCLEAR MEDICINE: Other Derm: Skin grafts - Present Medications Home Medications: Ambulatory Orders Medication Instructions Recorded Confirmed Atorvastatin Calcium 40 mg PO HS 01/04/23 01/21/23 Dextroamphetamine/Amphetamine 20 mg PO BID 01/04/23 01/21/23 [Adderall 20 mg Tablet] Doxepin [SINEquan] 10 mg PO HS 01/04/23 01/21/23 Fluoxetine HCl [Prozac] 20 mg PO DAILY 01/04/23 01/21/23 Furosemide [Lasix] 20 mg PO DAILY 01/04/23 01/21/23 Hydromorphone HCl/Pf [Dilaudid] 9 mg IT DAILY 01/04/23 01/04/23 Losartan Potassium [Cozaar] 100 mg PO DAILY 01/04/23 01/21/23 Omeprazole 40 mg PO BIDAC 01/04/23 01/21/23 Propranolol HCl 20 mg PO BID 01/04/23 01/21/23 cloNIDine [Catapres] 0.1 - 0.2 tab PO HS 01/04/23 01/21/23 Insulin Glargine [Lantus Solostar] 20 unit SQ QPM #1 ea 01/11/23 01/21/23 Insulin Lispro [Humalog Kwikpen 2 - 10 unit SQ ACHS #1 ea 01/11/23 01/21/23 U-100] Thiamine [Vitamin B-1] 100 mg PO DAILY #30 tab 01/11/23 Tamsulosin [Flomax] 0.4 mg PO QPM 01/21/23 01/21/23 ARIPiprazole [Aripiprazole] 10 mg PO DAILY 02/07/23 Escitalopram [Lexapro] 10 mg PO DAILY 02/07/23 Metformin HCl 1,000 mg PO BIDWM 02/07/23 Naltrexone HCl 50 mg PO DAILY 02/07/23 glipiZIDE [Glucotrol] 5 mg PO BID 02/07/23 traZODone [Desyrel] 50 mg PO QPM 02/07/23 - Allergies Allergies/Adverse Reactions: Allergies Allergy/AdvReac Type Severity Reaction Status Date / Time penicillin G Allergy Severe hearing Verified 02/07/23 06:41 loss left ear povidone-iodine Allergy Severe Respiratory Verified 02/07/23 06:41 [From Betadine] soap * [From Betadine] Allergy Severe Respiratory Verified 02/07/23 06:41 clonidine Allergy Unknown Verified 02/07/23 06:41 iodine Allergy Unknown Verified 02/07/23 06:41 nortriptyline Allergy Unknown Verified 02/07/23 06:41 shellfish derived Allergy skin Verified 02/07/23 06:41 burning Sulfa (Sulfonamide Allergy Unknown Verified 02/07/23 06:41 Antibiotics) sterile banadage Allergy Unknown Uncoded 02/07/23 06:41 steroids Allergy Unknown Uncoded 02/07/23 06:41 - Social History Does the pt smoke?: No Smoking Status: Never smoker Does the pt drink ETOH?: Yes Does the pt have substance abuse?: No - Immunizations Immunizations are current?: Yes - POLST Patient has POLST: No POLST Status: Full Code PD ED PE NORMAL - Vitals Vital signs reviewed: Yes - General General: Well developed/nourished - Neck Neck: Supple, no meningeal sign - Cardiac Cardiac: No murmur - Respiratory Respiratory: No respiratory distress, Clear bilaterally - Abdomen Abdomen: Soft, Non tender - Derm Derm: Normal color, Warm and dry - Extremities Extremities: No edema PD ED PE EXPANDED - General General: In distress (Patient exhibits generalized tremulousness, appears very anxious) - Cardiac Cardiac: Tachy, Regular Rhythm Results - Vitals Vitals: Vital Signs - 24 hr 02/07/23 02/07/23 02/07/23 06:30 06:46 07:05 Temperature 36.9 C Heart Rate 127 H 91 81 Respiratory 34 H 23 26 H Rate Blood Pressure 173/101 H 173/101 H O2 Saturation 97 100 100 If not protocol : Oxygen Flow, liters/minute 02/07/23 02/07/23 02/07/23 07:23 07:34 08:11 Temperature Heart Rate 63 74 81 Respiratory 25 H 29 H 23 Rate Blood Pressure 138/83 H 176/116 H O2 Saturation 100 99 99 If not protocol : Oxygen Flow, liters/minute 02/07/23 02/07/23 02/07/23 09:54 10:02 10:58 Temperature Heart Rate 108 H 90 69 Respiratory 27 H 25 H 20 Rate Blood Pressure 157/106 H 138/91 H 125/81 H O2 Saturation 100 96 97 If not protocol : Oxygen Flow, liters/minute 02/07/23 02/07/23 02/07/23 11:51 13:00 14:00 Temperature 36.5 C Heart Rate 82 78 81 Respiratory 17 27 H 26 H Rate Blood Pressure 146/99 H 128/85 H 126/82 H O2 Saturation 99 86 L 94 If not protocol 6 : Oxygen Flow, liters/minute 02/07/23 14:30 Temperature Heart Rate 92 Respiratory 16 Rate Blood Pressure 143/93 H O2 Saturation 100 If not protocol 6 : Oxygen Flow, liters/minute Oxygen O2 Source Nasal cannula - EKG (time done) No standard instances EKG releavant findings:: EKG personally interpreted by author of this note. Relevant findings are: Rate: Rate (enter#) (67) Rhythm: NSR [place]: LAD Intervals: Normal [place] QRS: Normal Ischemia: Normal ST segments Other comments: Other comments (There is some artifact in the inferior leads that does not preclude analysis.) - Labs Labs: Laboratory Tests 02/07/23 02/07/23 02/07/23 06:45 07:49 07:49 WBC 9.1 RBC 3.91 L Hgb 12.6 L Hct 37.8 L MCV 96.7 H MCH 32.2 H MCHC 33.3 RDW 12.1 Plt Count 311 MPV 10.2 Neut # (Auto) 5.5 Lymph # (Auto) 2.6 [place] # (Auto) 0.8 Eos # (Auto) 0.2 Baso # (Auto) 0.0 Absolute Nucleated RBC 0.00 Nucleated RBC % 0.0 Sodium 138 Potassium 3.3 L Chloride 104 Carbon Dioxide 23 Anion Gap 11.0 BUN 14 Creatinine 0.7 Estimated GFR (MDRD) 117 Glucose 151 H Calcium 8.7 Magnesium Total Bilirubin 0.7 AST 38 ALT 27 Alkaline Phosphatase 79 Troponin I High Sens 5.5 Total Protein 6.6 L Albumin 3.5 Globulin 3.1 Albumin/Globulin Ratio 1.1 Lipase 55 H Ethyl Alcohol < 5.0 02/07/23 07:49 WBC RBC Hgb Hct MCV MCH MCHC RDW Plt Count MPV Neut # (Auto) Lymph # (Auto) [place] # (Auto) Eos # (Auto) Baso # (Auto) Absolute Nucleated RBC Nucleated RBC % Sodium Potassium Chloride Carbon Dioxide Anion Gap BUN Creatinine Estimated GFR (MDRD) Glucose Calcium 8.6 Magnesium 1.1 L Total Bilirubin AST ALT Alkaline Phosphatase Troponin I High Sens Total Protein Albumin Globulin Albumin/Globulin Ratio Lipase Ethyl Alcohol PD Medical Decision Making - ED course Complexity details: reviewed results, re-evaluated patient, considered differential, d/w patient ED course: Patient presents after taking his first dose of naltrexone. Shortly thereafter, he developed symptoms as per HPI. The timing of the symptom onset with the first dose of naltrexone in the setting of a Dilaudid intrathecal pump are all consistent with acute opioid withdrawal induced by the naltrexone. IVs established, blood tests drawn and sent to lab for analysis including CBC, ER abdominal panel, high-sensitivity troponin, magnesium. He is given 2 mg of Dilaudid IV to try to counteract the effects of the naltrexone. There was only mild improvement in the symptoms, and thus he is given another 1 mg Dilaudid IV. Blood test results are pending at the end of my shift and patient will need further observation in ED. Care of patient turned over to oncoming ED physician (Dr. Tellez) at end of my shift. Departure - Departure Disposition: 66 [facility] DC/Xfer Clinical Impression: Opiate withdrawal, Hypokalemia, Hypomagnesemia, Hypoxia Condition: Fair Discharge Date/Time: 02/07/23 15:51
[2023-02-07] MEDS ORDERED: LORazepam 2 MG/ML VIAL IVP STA ×2 (07:56→09:28)
--- NOTE | 2023-02-07 08:09 | XRAY Report ---
PROCEDURE: Chest 1 View X-Ray INDICATIONS: chest pain TECHNIQUE: One view of the chest was acquired. COMPARISON: Chest x-ray, 12/26/2022. FINDINGS: Surgical changes and devices: None. Lungs and pleura: No pleural effusions or pneumothorax. Lungs are clear. Mediastinum: Mediastinal contours appear normal. Heart size is normal. Bones and chest wall: No suspicious bony lesions. Overlying soft tissues appear unremarkable. IMPRESSION: No acute cardiopulmonary disease. Reviewed by: Velma Chandler MD on 02/07/2023 8:08 AM PDT Approved by: Velma Chandler MD on 02/07/2023 8:08 AM PDT Station ID: [id number]
[2023-02-07 08:20] LABS: CALCIUM 8.6 mg/dL (8.5-10.3); MAGNESIUM 1.1 mg/dL (1.7-2.8)
[2023-02-07 08:22] LABS: ALBUMIN 3.5 g/dL (3.2-5.5); ALBUMIN/GLOBULIN RATIO 1.1 (1.0-2.2); ALKALINE PHOSPHATASE 79 IU/L (42-121); ALT ALANINE AMINOTRANSFERASE 27 IU/L (10-60); AST ASPARTATE AMINOTRANSFERASE 38 IU/L (10-42); BILIRUBIN,TOTAL 0.7 mg/dL (0.2-1.0); BUN - BLOOD UREA NITROGEN 14 mg/dL (6-20); CALCIUM 8.7 mg/dL (8.5-10.3); CARBON DIOXIDE - CO2 23 mmol/L (21-32); CHLORIDE 104 mmol/L (101-111); CREATININE 0.7 mg/dL (0.6-1.2); ETOH - ETHANOL < 5.0 mg/dL; GFR - MDRD 117 (>89); GLUCOSE 151 mg/dL (70-100); LIPASE 55 U/L (22-51); POTASSIUM 3.3 mmol/L (3.5-5.0); SODIUM 138 mmol/L (135-145); TOTAL PROTEIN 6.6 g/dL (6.7-8.2)
[2023-02-07] MEDS ORDERED: POTASSIUM CHLORIDE 20 MEQ TABLET PO STA (08:45)
[2023-02-07] MEDS ORDERED: MAGNESIUM SULFATE 2 GRAM 2 GM/50 ML BAG IV ONE (08:45)
[2023-02-07] MEDS ORDERED: LOPERAMIDE 2 MG CAPSULE PO STA (09:27)
--- NOTE | 2023-02-07 10:06 | ED Physician Documentation ---
ED Addendum - Addendum Addendum: 02/07/23 10:21 Patient signed out to me by overnight physician. Patient appears to be in acute opiate withdrawal due to being prescribed naltrexone in the setting of being opiate dependent on a Dilaudid pump. He has an allergy to clonidine. Patient has received several doses of Dilaudid, Ativan, loperamide and Zofran for his symptoms. Potassium and magnesium are being replaced. 02/07/23 13:30 He has become more drowsy. Is requiring supplemental oxygen as his sats have dropped while he was sleeping. I was able to awaken him with light touch and voice and he does have improvement in his oxygen status. 02/07/23 15:[address] Ferguson who will admit the patient to the ICU for further management. Departure - Departure Disposition: 66 [facility] DC/Marisol Clinical Impression: Opiate withdrawal, Hypokalemia, Hypomagnesemia, Hypoxia Condition: Fair Discharge Date/Time: 02/07/23 15:51
[2023-02-07] MEDS ORDERED: ONDANSETRON 4 MG/2 ML VIAL IVP STA (12:48)
[2023-02-07] MEDS ORDERED: SODIUM CHLORIDE FLUSH 0.9% 10 ML SYRINGE IVP PRN (15:16)
[2023-02-07] MEDS ORDERED: ONDANSETRON 4 MG/2 ML VIAL IVP PRN (15:16)
--- NOTE | 2023-02-07 15:27 | HISTORY & PHYSICAL EXAMINATION ---
Chief Complaint - Chief Complaint Chief Complaint: Sudden pain, after starting naltrxone History of Present Illness - Admitted From Admitted From:: ED - History Obtained From History obtained from: ED provider, the patient and chart review. - History of Present Illness HPI Comment/Other: This is a 53 y/o male who lives by himself, has a Hx of alcohol abuse and was hospitalized here 1 month ago after heavy alcohol binging (he drank a gallon a day, then was probably drinking 2 gallons a day for several days), was intoxicated with suicidal ideations. He went through alcohol withdrawal and was treated for a UTI. He was seen by SW, felt to not be a suicide risk and was di scharged to his home with Home Health ordered for PT and OT and RN and Aide. He has a Dilaudid intrathecal pump as well as a nerve stimulator. He got that put in about 22 years ago and then redone maybe 2 years later. He is followed by Dr. Ady Oleary at [facility]. He is chronically constipated. Has chronic back pain, and sciatica left leg pain. He is very sedentary because of his chronic back pain. Does not really do any exercise at all. But he is able to complete his activities of daily living on his own. He checked himself into In alcohol rehab in [place] 16 days ago. There he was seen in the clinic yesterday and was given a prescription for naltrexone for alcohol urges. He took the first dose today and 20 to 30 minutes later developed rapid onset of generalized tremulousness, chest pain, dyspnea, and anxiety. He was brought in by family members to the ER. He was felt to be in acute opiate withdrawal. He has been given several doses of IV Dilaudid (6 mg total while in the ER), Ativan IV several times and needed loperamide for developing diarrhea. The ED provider and I spoke about this patient. He then started having lethargy and developed hypoxia. He is able to be aroused by touching and speaking to him and has been started on supplemental O2. He will be admitted to the ICU to manage ongoing opiate withdrawal, needing narcotics, however this is causing hypopnea from lethargy. The patient told the ED provider his last drink of alcohol was 16 days ago. 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 Father age 90. Alive, has diabetes, leukemia, Alzheimer's. Lives in [place]. He does have siblings but he is not in contact with him. He has children but is not in contact with him Living Situation: Alone Social History Notes: Disabled due to chronic low back pain.Has been drinking since the age of 14. He denies cocaine, heroin, LSD or speed. He does not smoke and never did. 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 - Substance History Use: Uses substance without health or social issues: NONE - POLST Patient has POLST: No POLST Status: Full Code Meds/Allgy - Home Medications Home Medications: Ambulatory Orders Medication Instructions Recorded Confirmed Atorvastatin Calcium 40 mg PO HS 01/04/23 01/21/23 Dextroamphetamine/Amphetamine 20 mg PO BID 01/04/23 01/21/23 [Adderall 20 mg Tablet] Doxepin [SINEquan] 10 mg PO HS 01/04/23 01/21/23 Fluoxetine HCl [Prozac] 20 mg PO DAILY 01/04/23 01/21/23 Furosemide [Lasix] 20 mg PO DAILY 01/04/23 01/21/23 Hydromorphone HCl/Pf [Dilaudid] 9 mg IT DAILY 01/04/23 01/04/23 Losartan Potassium [Cozaar] 100 mg PO DAILY 01/04/23 01/21/23 Omeprazole 40 mg PO BIDAC 01/04/23 01/21/23 Propranolol HCl 20 mg PO BID 01/04/23 01/21/23 cloNIDine [Catapres] 0.1 - 0.2 tab PO HS 01/04/23 01/21/23 Insulin Glargine [Lantus Solostar] 20 unit SQ QPM #1 ea 01/11/23 01/21/23 Insulin Lispro [Humalog Kwikpen 2 - 10 unit SQ ACHS #1 ea 01/11/23 01/21/23 U-100] Thiamine [Vitamin B-1] 100 mg PO DAILY #30 tab 01/11/23 Tamsulosin [Flomax] 0.4 mg PO QPM 01/21/23 01/21/23 - Allergies Allergies/Adverse Reactions: Allergies Allergy/AdvReac Type Severity Reaction Status Date / Time penicillin G Allergy Severe hearing Verified 02/07/23 06:41 loss left ear povidone-iodine Allergy Severe Respiratory Verified 02/07/23 06:41 [From Betadine] soap * [From Betadine] Allergy Severe Respiratory Verified 02/07/23 06:41 clonidine Allergy Unknown Verified 02/07/23 06:41 iodine Allergy Unknown Verified 02/07/23 06:41 nortriptyline Allergy Unknown Verified 02/07/23 06:41 shellfish derived Allergy skin Verified 02/07/23 06:41 burning Sulfa (Sulfonamide Allergy Unknown Verified 02/07/23 06:41 Antibiotics) sterile banadage Allergy Unknown Uncoded 02/07/23 06:41 steroids Allergy Unknown Uncoded 02/07/23 06:41 Review of Systems - Gastrointestinal Gastrointestinal: reports: Abdominal pain - Musculoskeletal Musculoskeletal: reports: Back pain - Neurological Neurological: reports: Headache - All Other Systems All Other Systems: reports: Reviewed and negative Exam - Vital Signs Vital Signs: Vital Signs x48h Temp Pulse Resp BP Pulse Ox O2 Flow Rate 02/07/23 15:19 75 22 137/86 H 96 2 02/07/23 14:30 92 16 143/93 H 100 6 02/07/23 14:00 81 26 H 126/82 H 94 6 02/07/23 13:00 36.5 C 78 27 H 128/85 H 86 L 02/07/23 11:51 82 17 146/99 H 99 02/07/23 10:58 69 20 125/81 H 97 02/07/23 10:02 90 25 H 138/91 H 96 02/07/23 09:54 108 H 27 H 157/106 H 100 02/07/23 08:11 81 23 99 02/07/23 07:34 74 29 H 176/116 H 99 - Physical Exam General Appearance: positive: Moderate distress (from pain: mostly abdominal but also headache and LBP) Eyes Bilateral: positive: Normal inspection ENT: positive: No signs of dehydration, Other (Skin tear over R eye at eyebrow) Neck: positive: Nml inspection, No JVD Respiratory: positive: No respiratory distress, Breath sounds nml Cardiovascular: positive: Regular rate & rhythm, No murmur Abdomen: positive: Non-tender, No distention Skin: positive: Warm, Dry Extremities: positive: Non-tender, No pedal edema Neurologic/Psychiatric: positive: Oriented x3, Motor nml, Other (No nystagmus of asterixis) Conclusion/Plan - Problem List (1) Opiate withdrawal Conclusion/Plan: His withdrawal is from the naltrexone dose that he took. Plan: We will admit to the ICU. Continue with administering low doses of narcotics and await the naltrexone effect to wear off We will then transition him back to just his Dilaudid intrathecal treatments via his implanted pump While he is getting additional narcotics, will watch his airway and if he cannot maintain ventilation, he will need to be intubated. Continue with supplemental O2 at the present time. (2) Chronic pain disorder Conclusion/Plan: It is for this that he has the implanted pump giving him narcotic dosing Plan: No further Naltrexone since that is a narcotic antidote and he is dependant on narcotics, given via jis pump Resume his usual management, awaiting medication list to be reconciled (3) DM type 2 (diabetes mellitus, type 2) Conclusion/Plan: He took metformin 1000 mg p.o. twice daily. [place] [facility] [place] A1c was 10.6%, so glucose was uncontrolled prior to that admission. He met with the diabetic special education aide and was discharged home on Insulin, since he was comfortable with injections. Home Health fall intern was ordered, to check him at home. Plan: We will give D5 in his IV, along with NS, while he is lethargic and not taking in adequate diet, to prevent hypoglycemia We will order clear liquid diet then advance to a diabetic diet, as he awakens We will order sliding scale insulin coverage, fingerstick checks, and hypoglycemia protocol (4) Hypokalemia Conclusion/Plan: Possibly from inadequate diet versus from insulin injections Plan: We will give K riders Follow BMP daily (5) Bipolar 1 disorder Conclusion/Plan: Plan: We will order his usual meds, once the list is reconciled by pharmacy (6) History of alcohol abuse Conclusion/Plan: The patient checked himself into alcohol rehab in [place] 16 days ago and told the ED provider his last drink of alcohol was 16 days ago. Labs were all reviewed. On admission his LFTs are normal and hemoglobin is stable at 12.6, similar to discharge 1 mo ago. Plan: We will continue with his usual medications and management, once his list is reconciled by pharmacy Continue daily Thiamine - Lab Results Fish Bones: 02/07/23 06:45 02/07/23 07:49 - EKG Results EKG Interpreted Independently: Yes EKG Findings: Normal sinus rhythm, early R/S transition. The computer reading said A-fib and the ED provider signed off on that, in agreement. EKG rhythm is not A-fib. It is NSR. - Other Other Results/Comments: Attestation: The patient is expected to be discharged or transferred to another facility within 96 hours: Yes
[2023-02-07] MEDS: D5NS W/20 MEQ KCL 1,000 ML IV SCH (16:17)
[2023-02-07] MEDS: SODIUM CHLORIDE FLUSH 0.9% 10 ML SYRINGE IVP SCH (17:07)
[2023-02-07] MEDS: INSULIN LISPRO 300 UNIT/3 ML PEN SUBQ SCH ×2 (17:24→20:38)
[2023-02-07] MEDS: HYDROmorphone 1 MG/ML CARPUJECT IVP PRN ×3 (17:34→21:19)
[2023-02-07] MEDS: FAMOTIDINE 20 MG/2 ML VIAL IVP SCH (20:11)
[2023-02-07] MEDS: LORazepam 2 MG/ML VIAL IVP PRN (21:30)
[2023-02-07] MEDS: PROCHLORPERAZINE 10 MG/2 ML VIAL IVP PRN (21:30)
[2023-02-08] MEDS: HYDROmorphone 1 MG/ML CARPUJECT IVP PRN ×12 (00:35→23:50)
[2023-02-08] MEDS: SODIUM CHLORIDE FLUSH 0.9% 10 ML SYRINGE IVP SCH ×3 (01:52→17:25)
[2023-02-08] MEDS: LORazepam 2 MG/ML VIAL IVP PRN (01:53)
[2023-02-08] MEDS: D5NS W/20 MEQ KCL 1,000 ML IV SCH ×2 (03:52→17:19)
[2023-02-08] MEDS: PROCHLORPERAZINE 10 MG/2 ML VIAL IVP PRN (03:52)
[2023-02-08 05:09] LABS: BASOPHILS % (AUTO) 0.1 %; LYMPHOCYTES % (AUTO) 13.6 %; MEAN CORPUSCULAR HEMOGLOBIN 31.9 pg (27.0-31.0); MEAN CORPUSCULAR HGB CONC 33.3 g/dL (32.0-36.0); MEAN CORPUSCULAR VOLUME 95.7 fL (80.0-94.0); MEAN PLATELET VOLUME 10.4 fL (7.4-11.4); MONOCYTES # (AUTO) 0.8 10^3/uL (0.0-1.0); MONOCYTES % (AUTO) 11.2 %; NEUTROPHILS # (AUTO) 5.2 10^3/uL (1.5-6.6); PLT - PLATELET COUNT 311 10^3/uL (130-450); RED BLOOD COUNT 3.45 10^6/uL (4.70-6.10); RED CELL DISTRIBUTION WIDTH 12.2 % (12.0-15.0)
[2023-02-08 05:25] LABS: CALCIUM, IONIZED 1.08 mmol/L (1.15-1.33); VBG PH 7.481 (7.31-7.41)
[2023-02-08 05:42] LABS: CALCIUM 8.6 mg/dL (8.5-10.3); CREATININE 0.6 mg/dL (0.6-1.2); MAGNESIUM 1.7 mg/dL (1.7-2.8); PHOSPHORUS 4.1 mg/dL (2.5-4.6); POTASSIUM 3.1 mmol/L (3.5-5.0)
[2023-02-08] MEDS: POTASSIUM CHLORIDE 20 MEQ/15 ML UDC PO SCH ×2 (06:14→09:19)
[2023-02-08] MEDS ORDERED: MAGNESIUM OXIDE 400 MG TABLET PO ONE (08:00)
[2023-02-08] MEDS: INSULIN LISPRO 300 UNIT/3 ML PEN SUBQ SCH ×4 (08:54→20:28)
[2023-02-08] MEDS: CALCIUM CARBONATE CHEW 500 MG TABLET PO SCH ×2 (08:57→12:09)
[2023-02-08] MEDS ORDERED: THIAMINE INJ 100 MG in SODIUM CHLORIDE 0.9% 50 ML IV SCH (09:00)
[2023-02-08] MEDS: FAMOTIDINE 20 MG/2 ML VIAL IVP SCH (09:19)
--- NOTE | 2023-02-08 15:41 | PHARMACY PROGRESS NOTE ---
- Best Possible Medication History Admit Date and Time: 02/07/23 1516 Processed by: Pharmacy Medication History completed: Yes Patient Interview: Completed Secondary Source(s): Pharmacy records (Pt states he's not allergic to Clinidine. Also confirmed that Clonidine is in his IT pump. Family MD D/C'insulins and started him on Metformin and Glipizide, which he filled but has not had a chance to take before admitted again to . New psych meds by Terry Alfonso at [facility] Insurance records As the person ultimately responsible for medication therapy, providers are able to order a medication from an existing home medication list in [facility] via the "Reconcile Routine" prior to Confirmation of that medication by network support administrator. Such practice is discouraged except when the physician, in their clinical judgment, deems that a medical need exists for a medication without regard to previous use.
[2023-02-08] MEDS: metFORMIN 500 MG TABLET PO SCH (17:24)
--- NOTE | 2023-02-08 19:30 | PROVIDER PROGRESS NOTE ---
Assessment/Plan - Problem List (1) DM type 2 (diabetes mellitus, type 2) Assessment/Plan: He took metformin 1000 mg p.o. twice daily. [place] [facility] [place]1c was 10.6%, so glucose was uncontrolled prior to that admission. He met with the diabetic music education director and was discharged home on Insulin, since he was comfortable with injections. Home Health architect manager was ordered, to check him at home. Today we found out he was not compliant with many of the meds that were prescr ibed at discharge. Also his PCP restarted oral meds, he was not on insulin Plan: Now that he is not nauseated, will order advancing the clear liquid diet to a diabetic diet Cont sliding scale insulin coverage, fingerstick checks, and hypoglycemia protocol (2) Opiate withdrawal Assessment/Plan: His withdrawal was from the naltrexone dose that he took. Those sx have resolved, The naltrexone effect has worn off, as th half life of oral is 4 hours so 5 doses is 20 hours and he has been here 24 hours. Plan: He can be transferred out of ICU We will transition him back to just his Dilaudid intrathecal treatments via his implanted pump today Will resume a diet, since he is not nauseated. Anticipating discharge tomorrow. (3) Chronic pain disorder Assessment/Plan: It is for this that he has the implanted pump giving him narcotic dosing Plan: No further Naltrexone to be used (I have canceled it on his reconciled med list) since that is a narcotic antidote and he is dependant on narcotics, given via his pump Resume his usual management (4) Hypokalemia Conclusion/Plan: Possibly from inadequate diet versus from insulin injections Plan: We will give K riders Follow BMP daily (5) Bipolar 1 disorder Conclusion/Plan: Plan: We will order his usual meds today, once the list is reconciled by pharmacy (6) History of alcohol abuse Conclusion/Plan: The patient checked himself into alcohol rehab in [place] 16 days ago and told the ED provider his last drink of alcohol was 16 days ago. Labs were all reviewed. On admission his LFTs are normal and hemoglobin is stable at 12.6, similar to discharge 1 mo ago. Plan: We will continue with his usual medications and management, once his list is r econciled by pharmacy Continue daily Thiamine, iv dose will be changed to po - Current Meds Current Meds: Current Medications Generic Name Dose Route Start Last Admin Trade Name Freq PRN Reason Stop Dose Admin Hydromorphone HCl 1 mg 02/07/23 16:04 02/08/23 17:26 Hydromorphone 1 Mg/Ml Carpuject IVP 1 mg Q2H PRN Administration Pain 8 to 10 Potassium Chloride/Dextrose/Sod Cl 1,000 mls @ 60 mls/hr 02/08/23 15:49 02/08/23 17:19 D5ns W/20 Meq Kcl IV 60 mls/hr .[id number] RAND Administration Insulin Human Lispro 1 - 5 unit 02/07/23 17:00 02/08/23 17:22 Insulin Lispro 300 Unit/3 Ml Pen SUBQ 2 unit 0800,1200,1700,2100 RAND Administration Protocol Lorazepam 0.5 mg 02/07/23 20:56 02/08/23 01:53 Lorazepam 2 Mg/Ml Vial IVP 0.5 mg Q4H PRN Administration Anxiety Metformin HCl 1,000 mg 02/08/23 17:00 02/08/23 17:24 Metformin 500 Mg Tablet PO 1,000 mg BIDWM RAND Administration Ondansetron HCl 4 mg 02/07/23 15:16 02/07/23 17:34 Ondansetron 4 Mg/2 Ml Vial IVP 4 mg Q6HR PRN Administration Nausea / Vomiting Prochlorperazine Edisylate 10 mg 02/07/23 20:55 02/08/23 03:52 Prochlorperazine 10 Mg/2 Ml Vial IVP 10 mg Q6HR PRN Administration Nausea / Vomiting Sodium Chloride 10 ml 02/07/23 17:00 02/08/23 17:25 Sodium Chloride Flush 0.9% 10 Ml Syringe IVP Not Given 0100,0900,1700 RAND - Lab Result Fish Bone Diagrams: 02/08/23 04:24 02/08/23 04:24 - Additional Planning My Orders: My Active Orders 02/08/23 Evaluate and Treat OT [OT] Routine Evaluate and Treat PT [PT] Routine 02/08/23 Breakfast Carb-controlled Diet [DIET] 02/08/23 15:49 D5ns W/20 Meq KCl 1,000 ml IV 60 mls/hr 02/08/23 17:00 metFORMIN [Glucophage] 1,000 mg PO BIDWM 02/08/23 21:00 Patient Own Med [Patient Own Medication] 1 each PO BID Propranolol [Inderal] 20 mg PO BID Tamsulosin [Flomax] 0.4 mg PO QPM glipiZIDE [Glucotrol] 5 mg PO BID traZODone [Desyrel] 50 mg PO QPM 02/09/23 07:00 Pantoprazole [Protonix] 40 mg PO BIDAC 02/09/23 09:00 ARIPiprazole [Abilify] 10 mg PO DAILY Escitalopram [Lexapro] 10 mg PO DAILY Losartan [Cozaar] 100 mg PO DAILY Patient Own Controlled 1 each PO DAILY Thiamine [Vitamin B-1] 100 mg PO DAILY Subjective - Subjective Patient Reports: Feeling Better (Is hungry and no longer nauseated) Objective Vital Signs: Vital Signs - 24 hr 02/07/23 02/07/23 02/07/23 20:19 21:00 22:00 Temperature 37.3 C Heart Rate [ 101 H 84 87 Monitoring electrodes] Respiratory 21 28 H 25 H Rate Blood Pressure 147/88 H 137/78 H 114/74 [Right Brachial artery] O2 Saturation 100 95 94 If not protocol 2 2 : Oxygen Flow, liters/minute 02/07/23 02/08/23 02/08/23 23:00 00:00 01:00 Temperature Heart Rate [ 84 84 83 Monitoring electrodes] Respiratory 34 H 31 H 18 Rate Blood Pressure 104/71 103/69 125/91 H [Right Brachial artery] O2 Saturation 95 94 97 If not protocol 2 3 3 : Oxygen Flow, liters/minute 02/08/23 02/08/23 02/08/23 02:00 03:00 04:00 Temperature Heart Rate [ 80 68 77 Monitoring electrodes] Respiratory 23 17 26 H Rate Blood Pressure 122/86 H 104/70 124/75 [Right Brachial artery] O2 Saturation 96 96 97 If not protocol 3 3 2 : Oxygen Flow, liters/minute 02/08/23 02/08/23 02/08/23 05:00 06:00 07:00 Temperature Heart Rate [ 76 80 74 Monitoring electrodes] Respiratory 17 15 22 Rate Blood Pressure 138/82 H 132/81 H 123/79 [Right Brachial artery] O2 Saturation 96 100 95 If not protocol 2 2 2 : Oxygen Flow, liters/minute 02/08/23 02/08/23 02/08/23 08:00 09:00 10:00 Temperature 37 C Heart Rate [ 72 66 86 Monitoring electrodes] Respiratory 13 17 15 Rate Blood Pressure 128/92 H 134/86 H 131/77 H [Right Brachial artery] O2 Saturation 100 98 99 If not protocol 2 : Oxygen Flow, liters/minute 02/08/23 02/08/23 02/08/23 11:00 12:00 13:00 Temperature 36.6 C Heart Rate [ 58 L 74 74 Monitoring electrodes] Respiratory 19 26 H 18 Rate Blood Pressure 131/86 H 110/81 H [Right Brachial artery] O2 Saturation 98 99 100 If not protocol : Oxygen Flow, liters/minute 02/08/23 17:00 Temperature 37.1 C Heart Rate [ 76 Monitoring electrodes] Respiratory 14 Rate Blood Pressure 134/87 H [Right Brachial artery] O2 Saturation 97 If not protocol : Oxygen Flow, liters/minute Oxygen O2 Source Room air I&O (Last 24 Hrs): Intake and Output Totals x24h 02/06/23 02/07/23 02/08/23 23:59 23:59 23:59 Intake Total 1050 3816.274 Output Total 500 810 Balance 550 3006.274 General: Alert, No acute distress HEENT: Mucous membr. moist/pink, Other (Gash at R eyebrow) Neck: Supple Neuro: Alert, Non Focal Cardiovascular: Regular rate Respiratory: No respiratory distress Abdomen: Soft, No tenderness Extremities: No clubbing, No edema, No tenderness/swelling - Results Results: Laboratory Results WBC 7.0 x10^3/uL (4.8-10.8) 02/08/23 04:24 RBC 3.45 10^6/uL (4.70-6.10) L 02/08/23 04:24 Hgb 11.0 g/dL (14.0-18.0) L 02/08/23 04:24 Hct 33.0 % (42.0-52.0) L 02/08/23 04:24 MCV 95.7 fL (80.0-94.0) H 02/08/23 04:24 MCH 31.9 pg (27.0-31.0) H 02/08/23 04:24 MCHC 33.3 g/dL (32.0-36.0) 02/08/23 04:24 RDW 12.2 % (12.0-15.0) 02/08/23 04:24 Plt Count 311 10^3/uL (130-450) 02/08/23 04:24 MPV 10.4 fL (7.4-11.4) 02/08/23 04:24 Neut # (Auto) 5.2 10^3/uL (1.5-6.6) 02/08/23 04:24 Lymph # (Auto) 1.0 10^3/uL (1.5-3.5) L 02/08/23 04:24 [place] # (Auto) 0.8 10^3/uL (0.0-1.0) 02/08/23 04:24 Eos # (Auto) 0.0 10^3/uL (0.0-0.7) 02/08/23 04:24 Baso # (Auto) 0.0 10^3/uL (0.0-0.1) 02/08/23 04:24 Absolute Nucleated RBC 0.00 x10^3/uL 02/08/23 04:24 Nucleated RBC % 0.0 /100WBC 02/08/23 04:24 VBG pH 7.481 (7.31-7.41) H 02/08/23 04:24 Ionized Calcium 1.08 mmol/L (1.15-1.33) L 02/08/23 04:24 Sodium 142 mmol/L (135-145) 02/08/23 04:24 Potassium 3.1 mmol/L (3.5-5.0) L 02/08/23 04:24 Chloride 112 mmol/L (101-111) H 02/08/23 04:24 Carbon Dioxide 22 mmol/L (21-32) 02/08/23 04:24 Anion Gap 8.0 (6-13) 02/08/23 04:24 BUN 10 mg/dL (6-20) 02/08/23 04:24 Creatinine 0.6 mg/dL (0.6-1.2) 02/08/23 04:24 Estimated GFR (MDRD) 140 (>89) 02/08/23 04:24 Glucose 269 mg/dL (70-100) H 02/08/23 04:24 POC Whole Bld Glucose 207 mg/dL (70 - 100) H 02/08/23 17:17 Calcium 8.6 mg/dL (8.5-10.3) 02/08/23 04:24 Phosphorus 4.1 mg/dL (2.5-4.6) 02/08/23 04:24 Magnesium 1.7 mg/dL (1.7-2.8) 02/08/23 04:24 Total Bilirubin 0.7 mg/dL (0.2-1.0) 02/07/23 07:49 AST 38 IU/L (10-42) 02/07/23 07:49 ALT 27 IU/L (10-60) 02/07/23 07:49 Alkaline Phosphatase 79 IU/L (42-121) 02/07/23 07:49 Troponin I High Sens 5.5 ng/L (2.3-19.7) 02/07/23 07:49 Total Protein 6.6 g/dL (6.7-8.2) L 02/07/23 07:49 Albumin 3.5 g/dL (3.2-5.5) 02/07/23 07:49 Globulin 3.1 g/dL (2.1-4.2) 02/07/23 07:49 Albumin/Globulin Ratio 1.1 (1.0-2.2) 02/07/23 07:49 Lipase 55 U/L (22-51) H 02/07/23 07:49 Nasal Screen MRSA (PCR) NEGATIVE (NEGATIVE) 02/07/23 16:07 Ethyl Alcohol < 5.0 mg/dL 02/07/23 07:49
[2023-02-08] MEDS: PROPRANOLOL 10 MG TABLET PO SCH (20:24)
[2023-02-08] MEDS: glipiZIDE 5 MG TABLET PO SCH (20:25)
[2023-02-08] MEDS: DEXTROAMPHETAMINE PO SCH (20:30)
[2023-02-08] MEDS: AMPHETAMINE PO SCH (20:30)
[2023-02-08] MEDS ORDERED: TAMSULOSIN 0.4 MG CAPSULE PO SCH (21:00)
[2023-02-08] MEDS ORDERED: traZODone 50 MG TABLET PO SCH (21:00)
[2023-02-09] MEDS: SODIUM CHLORIDE FLUSH 0.9% 10 ML SYRINGE IVP SCH ×2 (02:28→09:21)
[2023-02-09] MEDS: HYDROmorphone 1 MG/ML CARPUJECT IVP PRN ×4 (02:28→09:23)
[2023-02-09] MEDS ORDERED: PANTOPRAZOLE 40 MG TABLET PO SCH (07:00)
[2023-02-09] MEDS: INSULIN LISPRO 300 UNIT/3 ML PEN SUBQ SCH ×2 (08:21→12:19)
[2023-02-09] MEDS ORDERED: LOSARTAN 50 MG TABLET PO SCH (09:00)
[2023-02-09] MEDS ORDERED: HYDROMORPHONE HCL PO SCH (09:00)
[2023-02-09] MEDS ORDERED: THIAMINE 100 MG TABLET PO SCH (09:00)
[2023-02-09] MEDS ORDERED: ESCITALOPRAM 10 MG TABLET PO SCH (09:00)
[2023-02-09] MEDS ORDERED: ARIPiprazole 5 MG TABLET PO SCH (09:00)
[2023-02-09] MEDS: D5NS W/20 MEQ KCL 1,000 ML IV SCH (09:20)
[2023-02-09] MEDS: glipiZIDE 5 MG TABLET PO SCH (09:20)
[2023-02-09] MEDS: PROPRANOLOL 10 MG TABLET PO SCH (09:21)
[2023-02-09] MEDS: AMPHETAMINE PO SCH (09:23)
[2023-02-09] MEDS: DEXTROAMPHETAMINE PO SCH (09:23)
[2023-02-09] MEDS: metFORMIN 500 MG TABLET PO SCH (09:43)
--- NOTE | 2023-02-09 14:12 | DISCHARGE SUMMARY ---
Discharge Summary Admit Date: 02/07/23 Discharge Date: 02/09/23 Discharging Provider: Lia Ferguson MD Primary Care Provider: Ling Garcia NP Condition at Discharge: Fair Discharge Disposition: 01 Home, Self Care - HPI History of Present Illness: This is a 53 y/o male who lives by himself, has a Hx of alcohol abuse and was hospitalized here 1 month ago after heavy alcohol binging (he drank a gallon a day, then was probably drinking 2 gallons a day for several days), was in toxicated with suicidal ideations. He went through alcohol withdrawal and was treated for a UTI. He was seen by SW, felt to not be a suicide risk and was discharged to his home with Home Health ordered for PT and OT and RN and Aide. He has a Dilaudid intrathecal pump as well as a nerve stimulator. He got that put in about 22 years ago and then redone maybe 2 years later. He is followed by Dr. Ady Oleary at [facility]. He is chronically constipated. Has chronic back pain, and sciatica left leg pain. He is very sedentary because of his chronic back pain. Does not really do any exercise at all. But he is able to complete his activities of daily living on his own. He checked himself into [facility]hab in [place] 16 days ago. There he was seen in the clinic yesterday and was given a prescription for naltrexone for alcohol urges. He took the first dose today and 20 to 30 minutes later developed rapid onset of generalized tremulousness, chest pain, dyspnea, and anxiety. He was brought in by family members to the ER. He was felt to be in acute opiate withdrawal. He has been given several doses of IV Dilaudid (6 mg total while in the ER), Ativan IV several times and needed loperamide for developing diarrhea. The ED provider and I spoke about this patient. He then started having lethargy and developed hypoxia. He is able to be aroused by touching and speaking to him and has been started on supplemental O2. He will be admitted to the ICU to manage ongoing opiate withdrawal, needing narcotics, however this is causing hypopnea from lethargy. The patient told the ED provider his last drink of alcohol was 16 days ago. - HOSPITAL COURSE Hospital Course: (1) Opiate withdrawal His withdrawal was from the naltrexone dose that he took as prescribed by someone at the alcohol rehab clinic. He was admitted to the ICU in order to give frequent IV narcotic medications while watching his respiratory status to not cause oversedation. His symptoms of headache, nausea and vomiting, generalized pain and tremors resolved after 24 hours (naltrexone oral half-life is 4 hours therefore we allowed 5 half-lives and expected the medications affect to be gone). He wasback on his Dilaudid intrathecal treatments via his implanted pump. (2) DM Type 2 We waited until vomiting stopped then advanced his diet to a diabetic diet (3) Chronic pain disorder It is for chronic that he had the pump implanted, giving him narcotic dosing. No further Naltrexone should ever be used. (4) Hypokalemia Possibly from inadequate diet versus from insulin injections. His K was replaced. (5) Bipolar 1 disorder We resumed his usual meds when he was no longer vomiting. (6) History of alcohol abuse The patient checked himself into alcohol rehab in [place] 16 days ago. His LFTs were normal here and hemoglobin is stable at 12.6, similar to discharge 1 mo ago. - ALLERGIES Allergies/Adverse Reactions: Allergies Allergy/AdvReac Type Severity Reaction Status Date / Time penicillin G Allergy Severe hearing Verified 02/07/23 06:41 loss left ear povidone-iodine Allergy Severe Respiratory Verified 02/07/23 06:41 [From Betadine] soap * [From Betadine] Allergy Severe Respiratory Verified 02/07/23 06:41 iodine Allergy Unknown Verified 02/07/23 06:41 nortriptyline Allergy Unknown Verified 02/07/23 06:41 shellfish derived Allergy skin Verified 02/07/23 06:41 burning Sulfa (Sulfonamide Allergy Unknown Verified 02/07/23 06:41 Antibiotics) sterile banadage Allergy Unknown Uncoded 02/07/23 06:41 steroids Allergy Unknown Uncoded 02/07/23 06:41 - MEDICATIONS Home Medications: Ambulatory Orders Medication Instructions Recorded Confirmed Atorvastatin Calcium 40 mg PO HS 01/04/23 02/08/23 Dextroamphetamine/Amphetamine 20 mg PO BID 01/04/23 02/08/23 [Adderall 20 mg Tablet] Furosemide [Lasix] 20 mg PO DAILY 01/04/23 02/08/23 Hydromorphone HCl/Pf [Dilaudid] 9 mg IT DAILY 01/04/23 02/08/23 Losartan Potassium [Cozaar] 100 mg PO DAILY 01/04/23 02/08/23 Omeprazole 40 mg PO BIDAC 01/04/23 02/08/23 Propranolol HCl 20 mg PO BID 01/04/23 02/08/23 Thiamine [Vitamin B-1] 100 mg PO DAILY #30 tab 01/11/23 02/08/23 Tamsulosin [Flomax] 0.4 mg PO QPM 01/21/23 02/08/23 ARIPiprazole [Aripiprazole] 10 mg PO DAILY 02/07/23 02/08/23 Escitalopram [Lexapro] 10 mg PO DAILY 02/07/23 02/08/23 Metformin HCl 1,000 mg PO BIDWM 02/07/23 02/08/23 glipiZIDE [Glucotrol] 5 mg PO BID 02/07/23 02/08/23 traZODone [Desyrel] 50 mg PO QPM 02/07/23 02/08/23 Naloxone HCl Nasal [Narcan Nasal] 1 spr CHARITY ONCE PRN 02/08/23 02/08/23 - PHYSICAL EXAM AT DISCHARGE General Appearance: positive: No acute distress, Alert Eyes Bilateral: positive: Normal inspection, Other (Small cut at R eyebrow.) ENT: positive: ENT inspection nml, No signs of dehydration Neck: positive: Nml inspection, No JVD Respiratory: positive: No respiratory distress, Breath sounds nml Cardiovascular: positive: Regular rate & rhythm, No murmur Abdomen: positive: Non-tender, Nml bowel sounds, No distention Skin: positive: Warm, Dry Neurologic/Psychiatric: positive: Oriented x3, Motor nml, Other (No tremor, no nystagmus.) - LABS Result Diagrams: 02/08/23 04:24 02/08/23 04:24 - DIAGNOSTIC IMAGING Diagnostic Imaging Results: Final report reviewed - FOLLOW UP Follow Up: See PCP as per already scheduled appointment. - TIME SPENT Time Spent in Discharge (Minutes): 30
--- NOTE | 2023-02-09 14:12 | Discharge Plan ---
Discharge Plan Problem Reviewed?: Yes Disposition: Home, Self Care Condition: Fair Diet: Diabetic Activity Restrictions: Activity as Tolerated (No mowing the lawn, since you are unsteady walking.) Shower Restrictions: No Assistance Devices: Walker Weight Bearing: Full Weight Health Concerns: You were hospitalized because the Naltrexone medicine put you in opiate withdrawal. 24 hours were needed for the Naltrexone to be metabolized out of your system. Naltrexone is now listed on your "allergy list" because it should not be given ever for you. You are back on having the implanted pump administer your Dilaudid and you are back on your usual diabetic management. You are being discharged home today. Please resume all your usual pre-hospital medications and diet. Plan of Treatment: As above. Care Goals: Improvement in symptoms and stabilization are the goals. Assessment: Patient understands and is agreeable with the plan. Additional Instructions or Follow Up instructions: If you have new or worsening symptoms, call your primary care provider for advice, or come to the ER. No Smoking: If you smoke, Please STOP! Call for help. Follow-up with: Ling Garcia ARNP [Provider Admit Priv/Credential] -
[2023-02-09 16:23] VITALS: BP 128/91
== END 2023-02-09 16:44 | disposition home or self-care (01) | DRG 897 ==
LOC: ED 06:30 → ICU 15:16
PROVIDERS: ADMIT Internal Medicine; ATTEND Internal Medicine
DX: F11.23 Opioid dependence with withdrawal (principal); R07.9 Chest pain, unspecified; R06.00 Dyspnea, unspecified; G89.29 Other chronic pain; E83.42 Hypomagnesemia; M19.90 Unspecified osteoarthritis, unspecified site; M54.42 Lumbago with sciatica, left side; K59.09 Other constipation; F41.9 Anxiety disorder, unspecified; E11.9 Type 2 diabetes mellitus without complications; E87.6 Hypokalemia; F31.9 Bipolar disorder, unspecified; I10 Essential (primary) hypertension; E78.00 Pure hypercholesterolemia, unspecified; G47.30 Sleep apnea, unspecified; M54.9 Dorsalgia, unspecified; Z79.4 Long term (current) use of insulin; Z79.84 Long term (current) use of oral hypoglycemic drugs; K21.9 Gastro-esophageal reflux disease without esophagitis; R09.02 Hypoxemia; Z79.899 Other long term (current) drug therapy; Z80.6 Family history of leukemia; Z82.0 Family history of epilepsy and other diseases of the nervous system; Z82.49 Family history of ischemic heart disease and other diseases of the circulatory system; Z83.3 Family history of diabetes mellitus; Z87.898 Personal history of other specified conditions; Z88.0 Allergy status to penicillin; Z88.2 Allergy status to sulfonamides; Z88.8 Allergy status to other drugs, medicaments and biological substances; Z90.49 Acquired absence of other specified parts of digestive tract; Z91.013 Allergy to seafood; Z91.048 Other nonmedicinal substance allergy status
CPT/HCPCS: 36415; 71045; 80048; 80053; 82310; 82330; 83690; 83735; 84100; 84484; 85025; 87150; 93005; 96365; 96375; 96376; 97116; 97162; 97165; 99285; A9270; G0480; J1170; J2060; J3411; J7040; 80320

== ENCOUNTER 2023-02-21 15:46 | Outpatient (CLI) | payer MEDICARE, MEDICAID | END 2023-02-21 23:59 | disposition critical access hospital (66) | LOC: EMS 15:46 | DX: R45.851 Suicidal ideations (principal); F10.129 Alcohol abuse with intoxication, unspecified | CPT/HCPCS: A0425; A0429 ==

== ENCOUNTER 2023-02-21 16:02 | Emergency (ER) | payer MEDICARE, MEDICAID ==
[2023-02-21] MEDS ORDERED: SODIUM CHLORIDE 0.9% 1,000 ML IV STA ×2 (16:20→17:09)
[2023-02-21 16:38] LABS: BASOPHILS % (AUTO) 0.6 %; EOSINOPHILS # (AUTO) 0.1 10^3/uL (0.0-0.7); EOSINOPHILS % (AUTO) 1.5 %; HGB - HEMOGLOBIN 12.8 g/dL (14.0-18.0); LYMPHOCYTES # (AUTO) 2.9 10^3/uL (1.5-3.5); LYMPHOCYTES % (AUTO) 43.5 %; MEAN CORPUSCULAR HGB CONC 32.8 g/dL (32.0-36.0); MEAN CORPUSCULAR VOLUME 94.4 fL (80.0-94.0); MEAN PLATELET VOLUME 9.9 fL (7.4-11.4); MONOCYTES # (AUTO) 0.5 10^3/uL (0.0-1.0); MONOCYTES % (AUTO) 6.9 %; NEUTROPHILS # (AUTO) 3.2 10^3/uL (1.5-6.6); NEUTROPHILS % (AUTO) 47.1 %; PLT - PLATELET COUNT 298 10^3/uL (130-450); RED BLOOD COUNT 4.13 10^6/uL (4.70-6.10); RED CELL DISTRIBUTION WIDTH 11.9 % (12.0-15.0); WHITE BLOOD COUNT 6.7 x10^3/uL (4.8-10.8)
--- NOTE | 2023-02-21 16:42 | ED Physician Documentation ---
History of Present Illness - Stated complaint Stated Complaint: SI - Chief complaint Chief Complaint: MHE - Additonal information Additional information: 53-year-old male is brought to the emergency department via EMS under an [employer] MARINO. The patient had called his doctor's office stating that he was lonely and intended to hang himself. Pt states that he tried to hang himself, but the rope broke. The patient endorses to me that he has drank about half a gallon of vodka today. there are no ligature dave on neck The patient is well-known to the emergency department for alcohol abuse. He was recently admitted to this hospital for opiate withdrawal. He had been in an inpatient alcohol rehab in [place] while there he was given a prescription for naltrexone. The providers there did not realize that the patient had an indwelling Dilaudid intrathecal pump. He presented to the emergency department writhing in pain. He was subsequently admitted to the hospital for opiate withdrawal. Patient has a longstanding history of known alcohol abuse. He also has a known bipolar disorder. Medications include Lasix, Dilaudid intrathecally, losartan, omeprazole, propanolol, thiamine, Flomax, aiprazole, Lexapro, metformin, glipizide, trazodone. The patient appears intoxicated. He does smell of alcohol. He is glassy eyed and tearful. States he is tired of being lonely. He will not contract for safety though he does not desire to be here in the emergency department. He is an elopement risk. Pt's psychiatrist is Dr. 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: Other Derm: Skin grafts - Present Medications Home Medications: Ambulatory Orders Medication Instructions Recorded Confirmed Atorvastatin Calcium 40 mg PO HS 01/04/23 02/08/23 Dextroamphetamine/Amphetamine 20 mg PO BID 01/04/23 02/08/23 [Adderall 20 mg Tablet] Furosemide [Lasix] 20 mg PO DAILY 01/04/23 02/08/23 Hydromorphone HCl/Pf [Dilaudid] 9 mg IT DAILY 01/04/23 02/08/23 Losartan Potassium [Cozaar] 100 mg PO DAILY 01/04/23 02/08/23 Omeprazole 40 mg PO BIDAC 01/04/23 02/08/23 Propranolol HCl 20 mg PO BID 01/04/23 02/08/23 Thiamine [Vitamin B-1] 100 mg PO DAILY #30 tab 01/11/23 02/08/23 Tamsulosin [Flomax] 0.4 mg PO QPM 01/21/23 02/08/23 ARIPiprazole [Aripiprazole] 10 mg PO DAILY 02/07/23 02/08/23 Escitalopram [Lexapro] 10 mg PO DAILY 02/07/23 02/08/23 Metformin HCl 1,000 mg PO BIDWM 02/07/23 02/08/23 glipiZIDE [Glucotrol] 5 mg PO BID 02/07/23 02/08/23 traZODone [Desyrel] 50 mg PO QPM 02/07/23 02/08/23 Naloxone HCl Nasal [Narcan Nasal] 1 spr CHARITY ONCE PRN 02/08/23 02/08/23 - Allergies Allergies/Adverse Reactions: Allergies Allergy/AdvReac Type Severity Reaction Status Date / Time penicillin G Allergy Severe hearing Verified 02/21/23 16:14 loss left ear povidone-iodine Allergy Severe Respiratory Verified 02/21/23 16:14 [From Betadine] soap * [From Betadine] Allergy Severe Respiratory Verified 02/21/23 16:14 iodine Allergy Unknown Verified 02/21/23 16:14 nortriptyline Allergy Unknown Verified 02/21/23 16:14 shellfish derived Allergy skin Verified 02/21/23 16:14 burning Sulfa (Sulfonamide Allergy Unknown Verified 02/21/23 16:14 Antibiotics) sterile banadage Allergy Unknown Uncoded 02/07/23 06:41 steroids Allergy Unknown Uncoded 02/07/23 06:41 - Social History Does the pt smoke?: No Smoking Status: Never smoker Does the pt drink ETOH?: Yes Does the pt have substance abuse?: No - Immunizations Immunizations are current?: Yes - POLST Patient has POLST: No POLST Status: Full Code PD ED PE NORMAL - General General: Alert and oriented X 3. No: No acute distress (Appears intoxicated) - Neck Neck: Supple, no meningeal sign, Other (no ligature dave or abrasions noted on neck) - Cardiac Cardiac: No murmur. No: RRR (Significant tachycardia noted sinus rhythm on monitor heart rate in the 160s.) - Respiratory Respiratory: No respiratory distress, Clear bilaterally - Abdomen Abdomen: Normal bowel sounds, Soft - Back Back: No CVA TTP - Derm Derm: Normal color, Warm and dry - Extremities Extremities: No deformity, No tenderness to palpate, Normal ROM s pain - Neuro Neuro: Alert and oriented X 3, bolt man 2-12 intact Eye Opening: Spontaneous Motor: Obeys Commands Verbal: Oriented GCS Score: 15 - Psych Psych: Other (appears intoxicated. crying. sad. states he is lonely.) Results - Vitals Vitals: Vital Signs - 24 hr 02/21/23 02/21/23 02/21/23 16:14 17:59 18:00 Temperature 37.3 C Heart Rate 162 H 154 H 150 H Respiratory 24 17 20 Rate Blood Pressure 166/115 H 145/97 H O2 Saturation 92 92 91 L If not protocol : Oxygen Flow, liters/minute 02/21/23 02/21/23 02/21/23 18:14 18:15 18:47 Temperature Heart Rate 145 H 158 H 116 H Respiratory 12 14 16 Rate Blood Pressure 150/89 H O2 Saturation 87 L 95 95 If not protocol : Oxygen Flow, liters/minute 02/21/23 21:09 Temperature Heart Rate 77 Respiratory 13 Rate Blood Pressure 147/99 H O2 Saturation 97 If not protocol 2 : Oxygen Flow, liters/minute Oxygen O2 Source Nasal cannula Oxygen Flow Rate 2 - EKG (time done) 1657 EKG releavant findings:: EKG personally interpreted by author of this note. Relevant findings are: Rate: Rate (enter#) (154) Rhythm: Sinus tachycardia [place]: LAD Intervals: Normal [place], Prolonged QT QRS: Low voltage Ischemia: Normal ST segments Compare to prior EKG: Changed from prior EKG Computer interpretation: Agree with computer 1933 EKG releavant findings:: EKG personally interpreted by author of this note. Relevant findings are: Rate: Rate (enter#) (104) Rhythm: Sinus tachycardia [place]: Normal Intervals: Prolonged QT QRS: Poor R wave progression Ischemia: Non specific changes Compare to prior EKG: Changed from prior EKG Computer interpretation: Agree with computer - Labs Labs: Laboratory Tests 02/21/23 02/21/23 02/21/23 16:30 16:30 16:30 WBC 6.7 RBC 4.13 L Hgb 12.8 L Hct 39.0 L MCV 94.4 H MCH 31.0 MCHC 32.8 RDW 11.9 L Plt Count 298 MPV 9.9 Neut # (Auto) 3.2 Lymph # (Auto) 2.9 [place] # (Auto) 0.5 Eos # (Auto) 0.1 Baso # (Auto) 0.0 Absolute Nucleated RBC 0.00 Nucleated RBC % 0.0 Sodium 142 Potassium 4.2 Chloride 96 L Carbon Dioxide 28 Anion Gap 18.0 H BUN 8 Creatinine 0.8 Estimated GFR (MDRD) 100 Glucose 302 H Calcium 8.8 Total Bilirubin 0.4 AST 38 ALT 36 Alkaline Phosphatase 98 Total Protein 7.7 Albumin 4.1 Globulin 3.6 Albumin/Globulin Ratio 1.1 Lipase 29 TSH 2.20 Urine Color Urine Clarity Urine pH Ur Specific [place] Urine Protein Urine Glucose (UA) Urine Ketones Urine Occult Blood Urine Nitrite Urine Bilirubin Urine Urobilinogen Ur Leukocyte Esterase Ur Microscopic Review Urine Culture Comments Salicylates < 6.0 Urine Opiates Screen Ur Oxycodone Screen Urine Methadone Screen Ur Propoxyphene Screen Acetaminophen < 10 L Ur Barbiturates Screen Ur Tricyclics Screen Ur Phencyclidine Scrn Ur Amphetamine Screen U Methamphetamines Scrn U Benzodiazepines Scrn Urine Cocaine Screen U Cannabinoids Screen Ethyl Alcohol 284.6 02/21/23 16:33 WBC RBC Hgb Hct MCV MCH MCHC RDW Plt Count MPV Neut # (Auto) Lymph # (Auto) [place] # (Auto) Eos # (Auto) Baso # (Auto) Absolute Nucleated RBC Nucleated RBC % Sodium Potassium Chloride Carbon Dioxide Anion Gap BUN Creatinine Estimated GFR (MDRD) Glucose Calcium Total Bilirubin AST ALT Alkaline Phosphatase Total Protein Albumin Globulin Albumin/Globulin Ratio Lipase TSH Urine Color YELLOW Urine Clarity CLEAR Urine pH 7.0 Ur Specific [place] 1.015 Urine Protein TRACE Urine Glucose (UA) 500 H Urine Ketones 15 H Urine Occult Blood NEGATIVE Urine Nitrite NEGATIVE Urine Bilirubin NEGATIVE Urine Urobilinogen 0.2 (NORMAL) Ur Leukocyte Esterase NEGATIVE Ur Microscopic Review NOT INDICATED Urine Culture Comments NOT INDICATED Salicylates Urine Opiates Screen POSITIVE H Ur Oxycodone Screen NEGATIVE Urine Methadone Screen NEGATIVE Ur Propoxyphene Screen NEGATIVE Acetaminophen Ur Barbiturates Screen NEGATIVE Ur Tricyclics Screen NEGATIVE Ur Phencyclidine Scrn NEGATIVE Ur Amphetamine Screen POSITIVE H U Methamphetamines Scrn NEGATIVE U Benzodiazepines Scrn POSITIVE H Urine Cocaine Screen NEGATIVE U Cannabinoids Screen NEGATIVE Ethyl Alcohol - Rads (name of study) left knee Relevant Findings:: EMP independent interpretation of test (No acute radiographic findings to suggest occult fracture) PD Medical Decision Making - ED course Complexity details: reviewed results, re-evaluated patient ED course: 53-year-old male well-known to the emergency department was brought in by [facility] under an MARINO when he called his psychiatrist stating he was going to hang himself. reportedly attempted hanging, but rope broke,. there are no obvious ligature dave on the neck The patient endorses feeling lonely to me. He also endorses drinking half a gallon of vodka since yesterday evening. He does appear intoxicated on presentation. On presentation to the emergency department the patient cannot contract for safety, neither does he want to be here. However he needs to be clinically sober before we are able to have social work or DCR see him. On presentation he does have fixed sinus tachycardia heart rate in the 150s. No chest pain or shortness of air. This may be related to acute intoxication. I have ordered some IV fluids as well as Ativan 2 mg IV. Nursing staff has given him an initial CIWA score of 12. His blood alcohol is approximately 280. If IV fluids and Ativan do not seem to correct the tachycardia we can consider beta- guillermina I have evaluated his labs and find no unexpected worrisome findings given hx and clincal condition. ETOH 280. no anemia. mildly elavated gap c/w alcohol use. 1800: Patient remains persistently tachycardic despite receiving 2 L of IV fluid as well as Ativan for CIWA scale of 12. In review of his medication records it appears that he should be taking propanolol twice daily and I suspect he has missed recent doses. Therefore I have administered 10 mg of diltiazem IV as well as 20 mg of propanolol orally. We will and will reevaluate. 1845: Patient now has a resting heart rate of about 105. Appears sinus rhythm. He is going to continue to metabolize here in the emergency department pending DCR evaluation which cannot occur until he is metabolized the alcohol. Repeat EtOH will be scheduled for 2 AM. We will continue to monitor his CIWA score closely and I have ordered that to be obtained every 2 hours. He remains in the hallway bed alert and compliant. He understands that if he does leave the emergency department [facility] officers will be summoned. Departure - Departure Clinical Impression: Alcohol abuse Suicidal behavior Qualifiers: Attempted self-injury: with attempted self-injury Qualified Code(s): T14.91XA - Suicide attempt, initial encounter
[2023-02-21] MEDS ORDERED: THIAMINE INJ 100 MG in SODIUM CHLORIDE 0.9% 50 ML IV STA (16:43)
[2023-02-21] MEDS ORDERED: FOLIC ACID INJ 1 MG in SODIUM CHLORIDE 0.9% 1,000 ML IV STA (16:43)
[2023-02-21] MEDS ORDERED: ONDANSETRON 4 MG/2 ML VIAL IVP STA (16:43)
--- OUTSIDE RECORDS SUMMARY | 2023-02-21 16:44 | EXTERNAL MEDICAL SUMMARY RPT | Continuity of Care Document ---
Author Name Unknown Address [address] [place] [address] Phone Organization [place] Address [address] [place] [address] Phone Care Team Providers Care Occupational Therapy Manager Name Role Phone Unavailable Unavailable Unavailable Sj Dewey Unavailable Unavailable Allergies and Intolerances date description facility type (no date) penicillin G [facility] (unknown) (no date) povidone-iodine [facility] (unknown) (no date) shellfish derived [facility] (unknow n) (no date) soap [facility] (unknown) Immunizations date description facility 2023 00:00 Tetanus, Diphtheria, Pertussis (Tdap) [facility] Medications date description facility 2023 00:00 Furosemide [facility] 2023 00:00 Dextroamphetamine-Amphetamine [facility] 2023 00:00 Atorvastatin [facility] 2023 00:00 Insulin Glargine [facility] 2023 00:00 Propranolol [facility] 2023 00:00 Tamsulosin [facility] 2023-01-19 00:00 Chlordiazepoxide [facility] 2023 00:00 Losartan [facility] Problems date description facility 2023 00:00 Alcohol abuse [facility] 2023 00:00 Encephalopathy [facility] 2023 00:00 Atrial fibrillation with rapid ventricular response [facility] 2023 00:00 Suicidal ideation [facility] 2023 00:00 Facial laceration [facility] 2023-01-15 00:00 Hyperlipidemia due to type 1 di abetes mellitus [facility] 2023-01-15 00:00 Alcoholic intoxication [facility] 2023-01-15 00:00 Primary hypertension [facility] 2023-01-15 00:00 Benign prostatic hyperplasia [facility] 2023-01-15 00:00 Recurrent falls [facility] 2023-01-15 00:00 Injury of head [facility] 2023-01-16 09:35 Alcohol dependence with withdra wal, [facility] 2023-01-16 09:45 Alcohol dependence with withdra wal, [facility] 2023-01-16 09:49 Alcohol dependence with withdra wal, [facility] 2023-01-16 11:50 Alcohol dependence with withdra wal, [facility] 2023-01-16 13:57 Alcohol dependence with withdra wal, [facility] 2023-01-17 08:55 Alcohol dependence with withdra wal, [facility] 2023-01-17 09:11 Alcohol dependence with withdra wal, [facility] 2023-01-17 10:54 Alcohol dependence with withdra wal, [facility] 2023-01-18 08:24 Alcohol dependence with withdra wal, [facility] 2023-01-18 14:08 Alcohol dependence with withdra wal, [facility] 2023-01-18 14:10 Alcohol dependence with withdra wal, [facility] 2023-01-19 09:22 Alcohol dependence with withdra wal, [facility] 2023-01-19 10:51 Alcohol dependence with withdra wal, [facility] 2023-01-19 11:13 Alcohol dependence with withdra wal, [facility] 2023-01-19 14:43 Alcohol dependence with withdra wal, [facility] 2023-01-19 15:30 [facility] Alcohol dependence with withdra wal, [facility] 2023-02-21 10:17 Alcohol dependence with withdra wal, [facility] Procedures date description facility 2023 00:00 XR pelvis, 1-2 views [facility] 2023 00:00 Computed tomography of head or brain without contrast [facility] 2023 00:00 X-ray of chest, single view Is and [facility] 2023-01-15 00:00 Complete Doppler echocardiograp [facility] 2023 00:00 Computed tomography of cervical spine without contrast [facility] 2023 00:00 Magnetic resonance imaging of b rain for stroke alert [facility] Results/Labs test date author facility value unit interpretation Result panel 1 (unknown) (no date) (unknown) [facility] (no value) (units unknown) (unknown) Result panel 2 (unknown) (no date) (unknown) [facility] (no value) (units unknown) (unknown) Result panel 3 (unknown) (no date) (unknown) [facility] (no value) (units unknown) (unknown) Result panel 4 (unknown) (no date) (unknown) [facility] (no value) (units unknown) (unknown) Result panel 5 (unknown) (no date) (unknown) [facility] (no value) (units unknown) (unknown) Result panel 6 (unknown) (no date) (unknown) [facility] (no value) (units unknown) (unknown) Result panel 7 (unknown) (no date) (unknown) [facility] (no value) (units unknown) (unknown) Result panel 8 (unknown) (no date) (unknown) [facility] (no value) (units unknown) (unknown) Result panel 9 (unknown) (no date) (unknown) [facility] (no value) (units unknown) (unknown) Result panel 10 (unknown) (no date) (unknown) [facility] (no value) (units unknown) (unknown) Result panel 11 (unknown) (no date) (unknown) [facility] (no value) (units unknown) (unknown) Result panel 12 (unknown) (no date) (unknown) [facility] (no value) (units unknown) (unknown) Result panel 13 (unknown) (no date) (unknown) [facility] (no value) (units unknown) (unknown) Result panel 14 (unknown) (no date) (unknown) [facility] (no value) (units unknown) (unknown) Result panel 15 (unknown) (no date) (unknown) [facility] (no value) (units unknown) (unknown) Result panel 16 (unknown) (no date) (unknown) [facility] (no value) (units unknown) (unknown) Result panel 17 (unknown) (no date) (unknown) [facility] (no value) (units unknown) (unknown) Result panel 18 (unknown) (no date) (unknown) [facility] (no value) (units unknown) (unknown) Result panel 19 (unknown) (no date) (unknown) [facility] (no value) (units unknown) (unknown) Result panel 20 (unknown) (no date) (unknown) [facility] (no value) (units unknown) (unknown) Result panel 21 (unknown) (no date) (unknown) [facility] (no value) (units unknown) (unknown) Result panel 22 (unknown) (no date) (unknown) [facility] (no value) (units unknown) (unknown) Result panel 23 (unknown) (no date) (unknown) [facility] (no value) (units unknown) (unknown) Result panel 24 (unknown) (no date) (unknown) [facility] (no value) (units unknown) (unknown) Result panel 25 (unknown) (no date) (unknown) [facility] (no value) (units unknown) (unknown) Result panel 26 (unknown) (no date) (unknown) [facility] (no value) (units unknown) (unknown) Result panel 27 (unknown) (no date) (unknown) [facility] (no value) (units unknown) (unknown) Result panel 28 (unknown) (no date) (unknown) [facility] (no value) (units unknown) (unknown) Result panel 29 (unknown) (no date) (unknown) [facility] (no value) (units unknown) (unknown) Result panel 30 (unknown) (no date) (unknown) [facility] (no value) (units unknown) (unknown) Result panel 31 (unknown) (no date) (unknown) [facility] (no value) (units unknown) (unknown) Result panel 32 (unknown) (no date) (unknown) [facility] (no value) (units unknown) (unknown) Result panel 33 (unknown) (no date) (unknown) [facility] (no value) (units unknown) (unknown) Result panel 34 (unknown) (no date) (unknown) [facility] (no value) (units unknown) (unknown) Result panel 35 (unknown) (no date) (unknown) [facility] (no value) (units unknown) (unknown) Result panel 36 (unknown) (no date) (unknown) [facility] (no value) (units unknown) (unknown) Result panel 37 (unknown) (no date) (unknown) [facility] (no value) (units unknown) (unknown) Result panel 38 (unknown) (no date) (unknown) [facility] (no value) (units unknown) (unknown) Result panel 39 (unknown) (no date) (unknown) [facility] (no value) (units unknown) (unknown) Result panel 40 (unknown) (no date) (unknown) [facility] (no value) (units unknown) (unknown) Result panel 41 (unknown) (no date) (unknown) [facility] (no value) (units unknown) (unknown) Result panel 42 (unknown) (no date) (unknown) [facility] (no value) (units unknown) (unknown) Result panel 43 (unknown) (no date) (unknown) [facility] (no value) (units unknown) (unknown) Result panel 44 (unknown) (no date) (unknown) [facility] (no value) (units unknown) (unknown) Result panel 45 (unknown) (no date) (unknown) [facility] (no value) (units unknown) (unknown) Result panel 46 (unknown) (no date) (unknown) [facility] (no value) (units unknown) (unknown) Result panel 47 (unknown) (no date) (unknown) [facility] (no value) (units unknown) (unknown) Result panel 48 (unknown) (no date) (unknown) [facility] (no value) (units unknown) (unknown) Result panel 49 (unknown) (no date) (unknown) [facility] (no value) (units unknown) (unknown) Result panel 50 (unknown) (no date) (unknown) [facility] (no value) (units unknown) (unknown) Result panel 51 (unknown) (no date) (unknown) [facility] (no value) (units unknown) (unknown) Result panel 52 (unknown) (no date) (unknown) [facility] (no value) (units unknown) (unknown) Result panel 53 (unknown) (no date) (unknown) [facility] (no value) (units unknown) (unknown) Result panel 54 (unknown) (no date) (unknown) [facility] (no value) (units unknown) (unknown) Result panel 55 (unknown) (no date) (unknown) [facility] (no value) (units unknown) (unknown) Result panel 56 (unknown) (no date) (unknown) [facility] (no value) (units unknown) (unknown) Result panel 57 (unknown) (no date) (unknown) [facility] (no value) (units unknown) (unknown) Result panel 58 (unknown) (no date) (unknown) [facility] (no value) (units unknown) (unknown) Result panel 59 (unknown) (no date) (unknown) [facility] (no value) (units unknown) (unknown) Result panel 60 (unknown) (no date) (unknown) [facility] (no value) (units unknown) (unknown) Result panel 61 (unknown) (no date) (unknown) [facility] (no value) (units unknown) (unknown) Result panel 62 (unknown) (no date) (unknown) [facility] (no value) (units unknown) (unknown) Result panel 63 (unknown) (no date) (unknown) [facility] (no value) (units unknown) (unknown) Result panel 64 (unknown) (no date) (unknown) [facility] (no value) (units unknown) (unknown) Result panel 65 (unknown) (no date) (unknown) [facility] (no value) (units unknown) (unknown) Result panel 66 (unknown) (no date) (unknown) [facility] (no value) (units unknown) (unknown) Result panel 67 (unknown) (no date) (unknown) [facility] (no value) (units unknown) (unknown) Result panel 68 (unknown) (no date) (unknown) [facility] (no value) (units unknown) (unknown) Result panel 69 (unknown) (no date) (unknown) [facility] (no value) (units unknown) (unknown) Result panel 70 (unknown) (no date) (unknown) [facility] (no value) (units unknown) (unknown) Result panel 71 (unknown) (no date) (unknown) [facility] (no value) (units unknown) (unknown) Result panel 72 (unknown) (no date) (unknown) [facility] (no value) (units unknown) (unknown) Result panel 73 (unknown) (no date) (unknown) [facility] (no value) (units unknown) (unknown) Result panel 74 (unknown) (no date) (unknown) [facility] (no value) (units unknown) (unknown) Result panel 75 (unknown) (no date) (unknown) [facility] (no value) (units unknown) (unknown) Result panel 76 (unknown) (no date) (unknown) [facility] (no value) (units unknown) (unknown) Result panel 77 (unknown) (no date) (unknown) [facility] (no value) (units unknown) (unknown) Result panel 78 (unknown) (no date) (unknown) [facility] (no value) (units unknown) (unknown) Result panel 79 (unknown) (no date) (unknown) [facility] (no value) (units unknown) (unknown) Result panel 80 (unknown) (no date) (unknown) [facility] (no value) (units unknown) (unknown) Result panel 81 (unknown) (no date) (unknown) [facility] (no value) (units unknown) (unknown) Result panel 82 (unknown) (no date) (unknown) [facility] (no value) (units unknown) (unknown) Result panel 83 (unknown) (no date) (unknown) [facility] (no value) (units unknown) (unknown) Result panel 84 (unknown) (no date) (unknown) [facility] (no value) (units unknown) (unknown) Result panel 85 (unknown) (no date) (unknown) [facility] (no value) (units unknown) (unknown) Result panel 86 (unknown) (no date) (unknown) [facility] (no value) (units unknown) (unknown) Result panel 87 (unknown) (no date) (unknown) [facility] (no value) (units unknown) (unknown) Result panel 88 (unknown) (no date) (unknown) [facility] (no value) (units unknown) (unknown) Result panel 89 (unknown) (no date) (unknown) [facility] (no value) (units unknown) (unknown) Result panel 90 (unknown) (no date) (unknown) [facility] (no value) (units unknown) (unknown) Result panel 91 (unknown) (no date) (unknown) [facility] (no value) (units unknown) (unknown) Result panel 92 (unknown) (no date) (unknown) [facility] (no value) (units unknown) (unknown) Result panel 93 (unknown) (no date) (unknown) [facility] (no value) (units unknown) (unknown) Result panel 94 (unknown) (no date) (unknown) [facility] (no value) (units unknown) (unknown) Result panel 95 (unknown) (no date) (unknown) [facility] (no value) (units unknown) (unknown) Result panel 96 (unknown) (no date) (unknown) [facility] (no value) (units unknown) (unknown) Result panel 97 (unknown) (no date) (unknown) [facility] (no value) (units unknown) (unknown) Result panel 98 (unknown) (no date) (unknown) [facility] (no value) (units unknown) (unknown) Result panel 99 (unknown) (no date) (unknown) [facility] (no value) (units unknown) (unknown) Result panel 100 (unknown) (no date) (unknown) [facility] (no value) (units unknown) (unknown) Result panel 101 (unknown) (no date) (unknown) [facility] (no value) (units unknown) (unknown) Result panel 102 (unknown) (no date) (unknown) [facility] (no value) (units unknown) (unknown) Result panel 103 (unknown) (no date) (unknown) [facility] (no value) (units unknown) (unknown) Result panel 104 (unknown) (no date) (unknown) [facility] (no value) (units unknown) (unknown) Result panel 105 (unknown) (no date) (unknown) [facility] (no value) (units unknown) (unknown) Result panel 106 (unknown) (no date) (unknown) [facility] (no value) (units unknown) (unknown) Result panel 107 (unknown) (no date) (unknown) [facility] (no value) (units unknown) (unknown) Result panel 108 (unknown) (no date) (unknown) [facility] (no value) (units unknown) (unknown) Result panel 109 (unknown) (no date) (unknown) [facility] (no value) (units unknown) (unknown) Result panel 110 (unknown) (no date) (unknown) [facility] (no value) (units unknown) (unknown) Result panel 111 (unknown) (no date) (unknown) [facility] (no value) (units unknown) (unknown) Result panel 112 (unknown) (no date) (unknown) [facility] (no value) (units unknown) (unknown) Result panel 113 (unknown) (no date) (unknown) [facility] (no value) (units unknown) (unknown) Result panel 114 (unknown) (no date) (unknown) [facility] (no value) (units unknown) (unknown) Result panel 115 (unknown) (no date) (unknown) [facility] (no value) (units unknown) (unknown) Result panel 116 (unknown) (no date) (unknown) [facility] (no value) (units unknown) (unknown) Result panel 117 (unknown) (no date) (unknown) [facility] (no value) (units unknown) (unknown) Result panel 118 (unknown) (no date) (unknown) [facility] (no value) (units unknown) (unknown) Result panel 119 (unknown) (no date) (unknown) [facility] (no value) (units unknown) (unknown) Result panel 120 (unknown) (no date) (unknown) [facility] (no value) (units unknown) (unknown) Result panel 121 (unknown) (no date) (unknown) [facility] (no value) (units unknown) (unknown) Result panel 122 (unknown) (no date) (unknown) [facility] (no value) (units unknown) (unknown) Result panel 123 (unknown) (no date) (unknown) [facility] (no value) (units unknown) (unknown) Result panel 124 (unknown) (no date) (unknown) [facility] (no value) (units unknown) (unknown) Result panel 125 (unknown) (no date) (unknown) [facility] (no value) (units unknown) (unknown) Result panel 126 (unknown) (no date) (unknown) [facility] (no value) (units unknown) (unknown) Result panel 127 (unknown) (no date) (unknown) [facility] (no value) (units unknown) (unknown) Result panel 128 (unknown) (no date) (unknown) [facility] (no value) (units unknown) (unknown) Result panel 129 (unknown) (no date) (unknown) [facility] (no value) (units unknown) (unknown) Result panel 130 (unknown) (no date) (unknown) [facility] (no value) (units unknown) (unknown) Result panel 131 (unknown) (no date) (unknown) [facility] (no value) (units unknown) (unknown) Result panel 132 (unknown) (no date) (unknown) [facility] (no value) (units unknown) (unknown) Result panel 133 (unknown) (no date) (unknown) [facility] (no value) (units unknown) (unknown) Result panel 134 (unknown) (no date) (unknown) [facility] (no value) (units unknown) (unknown) Result panel 135 (unknown) (no date) (unknown) [facility] (no value) (units unknown) (unknown) Result panel 136 (unknown) (no date) (unknown) [facility] (no value) (units unknown) (unknown) Result panel 137 (unknown) (no date) (unknown) [facility] (no value) (units unknown) (unknown) Result panel 138 (unknown) (no date) (unknown) [facility] (no value) (units unknown) (unknown) Result panel 139 (unknown) (no date) (unknown) [facility] (no value) (units unknown) (unknown) Result panel 140 (unknown) (no date) (unknown) [facility] (no value) (units unknown) (unknown) Result panel 141 (unknown) (no date) (unknown) [facility] (no value) (units unknown) (unknown) Result panel 142 (unknown) (no date) (unknown) [facility] (no value) (units unknown) (unknown) Result panel 143 (unknown) (no date) (unknown) [facility] (no value) (units unknown) (unknown) Result panel 144 (unknown) (no date) (unknown) [facility] (no value) (units unknown) (unknown) Result panel 145 (unknown) (no date) (unknown) [facility] (no value) (units unknown) (unknown) Result panel 146 (unknown) (no date) (unknown) [facility] (no value) (units unknown) (unknown) Result panel 147 (unknown) (no date) (unknown) [facility] (no value) (units unknown) (unknown) Result panel 148 (unknown) (no date) (unknown) [facility] (no value) (units unknown) (unknown) Result panel 149 (unknown) (no date) (unknown) [facility] (no value) (units unknown) (unknown) Result panel 150 (unknown) (no date) (unknown) [facility] (no value) (units unknown) (unknown) Result panel 151 (unknown) (no date) (unknown) [facility] (no value) (units unknown) (unknown) Result panel 152 (unknown) (no date) (unknown) [facility] (no value) (units unknown) (unknown) Result panel 153 (unknown) (no date) (unknown) [facility] (no value) (units unknown) (unknown) Result panel 154 (unknown) (no date) (unknown) [facility] (no value) (units unknown) (unknown) Result panel 155 (unknown) (no date) (unknown) [facility] (no value) (units unknown) (unknown) Result panel 156 (unknown) (no date) (unknown) [facility] (no value) (units unknown) (unknown) Result panel 157 (unknown) (no date) (unknown) [facility] (no value) (units unknown) (unknown) Result panel 158 (unknown) (no date) (unknown) [facility] (no value) (units unknown) (unknown) Result panel 159 (unknown) (no date) (unknown) [facility] (no value) (units unknown) (unknown) Result panel 160 (unknown) (no date) (unknown) [facility] (no value) (units unknown) (unknown) Result panel 161 (unknown) (no date) (unknown) [facility] (no value) (units unknown) (unknown) Result panel 162 (unknown) (no date) (unknown) [facility] (no value) (units unknown) (unknown) Result panel 163 (unknown) (no date) (unknown) [facility] (no value) (units unknown) (unknown) Result panel 164 (unknown) (no date) (unknown) [facility] (no value) (units unknown) (unknown) Result panel 165 (unknown) (no date) (unknown) [facility] (no value) (units unknown) (unknown) Result panel 166 (unknown) (no date) (unknown) [facility] (no value) (units unknown) (unknown) Result panel 167 (unknown) (no date) (unknown) [facility] (no value) (units unknown) (unknown) Result panel 168 (unknown) (no date) (unknown) [facility] (no value) (units unknown) (unknown) Result panel 169 (unknown) (no date) (unknown) [facility] (no value) (units unknown) (unknown) Result panel 170 (unknown) (no date) (unknown) [facility] (no value) (units unknown) (unknown) Result panel 171 (unknown) (no date) (unknown) [facility] (no value) (units unknown) (unknown) Result panel 172 (unknown) (no date) (unknown) [facility] (no value) (units unknown) (unknown) Result panel 173 (unknown) (no date) (unknown) [facility] (no value) (units unknown) (unknown) Result panel 174 (unknown) (no date) (unknown) [facility] (no value) (units unknown) (unknown) Result panel 175 (unknown) (no date) (unknown) [facility] (no value) (units unknown) (unknown) Result panel 176 (unknown) (no date) (unknown) [facility] (no value) (units unknown) (unknown) Result panel 177 (unknown) (no date) (unknown) [facility] (no value) (units unknown) (unknown) Result panel 178 (unknown) (no date) (unknown) [facility] (no value) (units unknown) (unknown) Result panel 179 (unknown) (no date) (unknown) [facility] (no value) (units unknown) (unknown) Result panel 180 (unknown) (no date) (unknown) [facility] (no value) (units unknown) (unknown) Result panel 181 (unknown) (no date) (unknown) [facility] (no value) (units unknown) (unknown) Result panel 182 (unknown) (no date) (unknown) [facility] (no value) (units unknown) (unknown) Result panel 183 (unknown) (no date) (unknown) [facility] (no value) (units unknown) (unknown) Result panel 184 (unknown) (no date) (unknown) [facility] (no value) (units unknown) (unknown) Result panel 185 (unknown) (no date) (unknown) [facility] (no value) (units unknown) (unknown) Result panel 186 (unknown) (no date) (unknown) [facility] (no value) (units unknown) (unknown) Result panel 187 (unknown) (no date) (unknown) [facility] (no value) (units unknown) (unknown) Result panel 188 (unknown) (no date) (unknown) [facility] (no value) (units unknown) (unknown) Result panel 189 (unknown) (no date) (unknown) [facility] (no value) (units unknown) (unknown) Result panel 190 (unknown) (no date) (unknown) [facility] (no value) (units unknown) (unknown) Result panel 191 (unknown) (no date) (unknown) [facility] (no value) (units unknown) (unknown) Result panel 192 (unknown) (no date) (unknown) [facility] (no value) (units unknown) (unknown) Result panel 193 (unknown) (no date) (unknown) [facility] (no value) (units unknown) (unknown) Result panel 194 (unknown) (no date) (unknown) [facility] (no value) (units unknown) (unknown) Result panel 195 (unknown) (no date) (unknown) [facility] (no value) (units unknown) (unknown) Result panel 196 (unknown) (no date) (unknown) [facility] (no value) (units unknown) (unknown) Result panel 197 (unknown) (no date) (unknown) [facility] (no value) (units unknown) (unknown) Result panel 198 (unknown) (no date) (unknown) [facility] (no value) (units unknown) (unknown) Result panel 199 (unknown) (no date) (unknown) [facility] (no value) (units unknown) (unknown) Result panel 200 (unknown) (no date) (unknown) [facility] (no value) (units unknown) (unknown) Result panel 201 (unknown) (no date) (unknown) [facility] (no value) (units unknown) (unknown) Result panel 202 (unknown) (no date) (unknown) [facility] (no value) (units unknown) (unknown) Result panel 203 (unknown) (no date) (unknown) [facility] (no value) (units unknown) (unknown) Result panel 204 (unknown) (no date) (unknown) [facility] (no value) (units unknown) (unknown) Result panel 205 (unknown) (no date) (unknown) [facility] (no value) (units unknown) (unknown) Result panel 206 (unknown) (no date) (unknown) [facility] (no value) (units unknown) (unknown) Result panel 207 (unknown) (no date) (unknown) [facility] (no value) (units unknown) (unknown) Result panel 208 (unknown) (no date) (unknown) [facility] (no value) (units unknown) (unknown) Result panel 209 (unknown) (no date) (unknown) [facility] (no value) (units unknown) (unknown) Result panel 210 (unknown) (no date) (unknown) [facility] (no value) (units unknown) (unknown) Result panel 211 (unknown) (no date) (unknown) [facility] (no value) (units unknown) (unknown) Result panel 212 (unknown) (no date) (unknown) [facility] (no value) (units unknown) (unknown) Result panel 213 (unknown) (no date) (unknown) [facility] (no value) (units unknown) (unknown) Result panel 214 (unknown) (no date) (unknown) [facility] (no value) (units unknown) (unknown) Result panel 215 (unknown) (no date) (unknown) (unknown) (no value) (units unknown) (unknown) (unknown) (no date) (unknown) (unknown) [id number] (units unknown) (unknown) (unknown) (no date) (unknown) (unknown) 01/14/23 (units unknown) (unknown) (unknown) (no date) (unknown) (unknown) [address] [place] [address] (units unknown) (unknown) (unknown) (no date) (unknown) (unknown) ABDOMEN: (units unknown) (unknown) (unknown) (no date) (unknown) (unknown) Accession Number: [id number] (units unknown) (unknown) (unknown) (no date) (unknown) (unknown) Accession Number: [id number] (units unknown) (unknown) (unknown) (no date) (unknown) (unknown) Accession Number: [id number] (units unknown) (unknown) (unknown) (no date) (unknown) (unknown) Accession Number: [id number] (units unknown) (unknown) (unknown) (no date) (unknown) (unknown) Accession Number: [id number] (units unknown) (unknown) (unknown) (no date) (unknown) (unknown) Additional 7 mm thic k coronal maximum intensity projection (MIP) reformats (units unknown) (unknown) (unknown) (no date) (unknown) (unknown) After the administration of intravenous contrast, 5 mm thick sections acquired (units unknown) (unknown) (unknown) (no date) (unknown) (unknown) Age/Sex: 53 / M Date of Service: (units unknown) (unknown) (unknown) (no date) (unknown) (unknown) MAYELIN Barnes [id number] (units unknown) (unknown) (unknown) (no date) (unknown) (unknown) Approved by: Marco Urias D.O. on 2023 at 10:49 (units unknown) (unknown) (unknown) (no date) (unknown) (unknown) Approved by: Marco Urias D.O. on 2023 at 11:36 (units unknown) (unknown) (unknown) (no date) (unknown) (unknown) Approved by: Marco Urias D.O. on 2023 at 11:56 (units unknown) (unknown) (unknown) (no date) (unknown) (unknown) Approved by: Marco Urias D.O. on 2023 at 9:57 (units unknown) (unknown) (unknown) (no date) (unknown) (unknown) Approved by: Marco Urias D.O. on 2023 at 9:59 (units unknown) (unknown) (unknown) (no date) (unknown) (unknown) Bones and chest wall : No suspicious bony lesions. Remote left-sided rib (units unknown) (unknown) (unknown) (no date) (unknown) (unknown) Bones: No fractures or dislocations. Minimal anterolisthesis of C4 on C5 is (units unknown) (unknown) (unknown) (no date) (unknown) (unknown) Bones: No fractures or dislocations. No suspicious bony lesions. Mild (units unknown) (unknown) (unknown) (no date) (unknown) (unknown) Bones: Pelvic ring and hip joints appear intact. No vertebral compression (units unknown) (unknown) (unknown) (no date) (unknown) (unknown) Brain: No midline shift. No intracranial masses or hemorrhage. Marr-white (units unknown) (unknown) (unknown) (no date) (unknown) (unknown) CHEST: (units unknown) (unknown) (unknown) (no date) (unknown) (unknown) COMPARISON: [facility], CT, CT CERVICAL SPINE WO CON, 04/13/2020, 10:42. (units unknown) (unknown) (unknown) (no date) (unknown) (unknown) COMPARISON: [facility], CT, CT CHEST ABD PEL W CON, 04/13/2020, 10:42. (units unknown) (unknown) (unknown) (no date) (unknown) (unknown) COMPARISON: [facility], CT, CT HEAD/BRAIN WO CON, 04/13/2020, 10:42. (units unknown) (unknown) (unknown) (no date) (unknown) (unknown) COMPARISON: None. (units unknown) (unknown) (unknown) (no date) (unknown) (unknown) CSF spaces: Basal cisterns are patent. No extra-axial fluid collections. (units unknown) (unknown) (unknown) (no date) (unknown) (unknown) CT Scan Report (units unknown) (unknown) (unknown) (no date) (unknown) (unknown) Chest wall: No acute rib fractures. Multiple remote left-sided rib fractures. (units unknown) (unknown) (unknown) (no date) (unknown) (unknown) : 1970 Acct:[id number] (units unknown) (unknown) (unknown) (no date) (unknown) (unknown) Dictated by: Marco Urias D.O. on 2023 at 10:46 (units unknown) (unknown) (unknown) (no date) (unknown) (unknown) Dictated by: Marco Urias D.O. on 2023 at 11:31 (units unknown) (unknown) (unknown) (no date) (unknown) (unknown) Dictated by: Marco Urias D.O. on 2023 at 11:44 (units unknown) (unknown) (unknown) (no date) (unknown) (unknown) Dictated by: Marco Urias D.O. on 2023 at 9:55 (units unknown) (unknown) (unknown) (no date) (unknown) (unknown) Dictated by: Marco Urias D.O. on 2023 at 9:58 (units unknown) (unknown) (unknown) (no date) (unknown) (unknown) Endplate degenerativ e changes and facet arthropathy resulting in multiple levels (units unknown) (unknown) (unknown) (no date) (unknown) (unknown) FINDINGS: (units unknown) (unknown) (unknown) (no date) (unknown) (unknown) Gallbladder (units unknown) (unknown) (unknown) (no date) (unknown) (unknown) Genitourinary: Bladder wall thickness is normal. (units unknown) (unknown) (unknown) (no date) (unknown) (unknown) IMPRESSION: (units unknown) (unknown) (unknown) (no date) (unknown) (unknown) INDICATIONS: ? fall (units unknown) (unknown) (unknown) (no date) (unknown) (unknown) INDICATIONS: Trauma (units unknown) (unknown) (unknown) (no date) (unknown) (unknown) INDICATIONS: Trauma, ? fall, bruising chest/abd, etoh, lac to forehead (units unknown) (unknown) (unknown) (no date) (unknown) (unknown) Image quality: Excellent. (units unknown) (unknown) (unknown) (no date) (unknown) (unknown) [facility] (units unknown) (unknown) (unknown) (no date) (unknown) (unknown) Loc: ED (units unknown) (unknown) (unknown) (no date) (unknown) (unknown) Lungs and pleura: Lungs are clear. No pleural effusions or pneumothorax. (units unknown) (unknown) (unknown) (no date) (unknown) (unknown) Lungs: No pulmonary contusions or lacerations. No acute airspace opacities. (units unknown) (unknown) (unknown) (no date) (unknown) (unknown) Mediastinum: Mediastinal contours appear normal. Heart size is normal. (units unknown) (unknown) (unknown) (no date) (unknown) (unknown) Mediastinum: No mediastinal hematomas. Heart size is normal. No pericardial (units unknown) (unknown) (unknown) (no date) (unknown) (unknown) Miscellaneous: No inguinal hernias or adenopathy. (units unknown) (unknown) (unknown) (no date) (unknown) (unknown) Miscellaneous: No ventral hernias. (units unknown) (unknown) (unknown) (no date) (unknown) (unknown) Moderate to severe degenerative changes of the cervical spine, grossly (units unknown) (unknown) (unknown) (no date) (unknown) (unknown) No acute fracture. (units unknown) (unknown) (unknown) (no date) (unknown) (unknown) No acute intracrania l abnormality. (units unknown) (unknown) (unknown) (no date) (unknown) (unknown) No acute osseous abnormality. Multiple remote left-sided rib fractures along (units unknown) (unknown) (unknown) (no date) (unknown) (unknown) No acute osseous abnormality. (units unknown) (unknown) (unknown) (no date) (unknown) (unknown) No acute traumatic injury of the chest, abdomen, or pelvis. (units unknown) (unknown) (unknown) (no date) (unknown) (unknown) No evidence of an acute cardiopulmonary abnormality. (units unknown) (unknown) (unknown) (no date) (unknown) (unknown) No (units unknown) (unknown) (unknown) (no date) (unknown) (unknown) Nodes and vessels: N o retroperitoneal or mesenteric adenopathy. Aorta and (units unknown) (unknown) (unknown) (no date) (unknown) (unknown) Noncontrast 3 mm thick sections acquired from the skull base to the T4 level. (units unknown) (unknown) (unknown) (no date) (unknown) (unknown) Noncontrast 4.5 mm thick angled axial sections acquired from the foramen magnum (units unknown) (unknown) (unknown) (no date) (unknown) (unknown) Ordering Provider: Bridgett Garrido D.O. (units unknown) (unknown) (unknown) (no date) (unknown) (unknown) PELVIS: (units unknown) (unknown) (unknown) (no date) (unknown) (unknown) PROCEDURE: CT CERVICAL SPINE WO CON (units unknown) (unknown) (unknown) (no date) (unknown) (unknown) PROCEDURE: CT CHEST ABD PEL W CON (units unknown) (unknown) (unknown) (no date) (unknown) (unknown) PROCEDURE: CT HEAD/BRAIN WO CON (units unknown) (unknown) (unknown) (no date) (unknown) (unknown) PROCEDURE: XR CHEST 1V (units unknown) (unknown) (unknown) (no date) (unknown) (unknown) PROCEDURE: XR PELVIS 1-2V (units unknown) (unknown) (unknown) (no date) (unknown) (unknown) Patient: Sj Romo MR#: [id number] (units unknown) (unknown) (unknown) (no date) (unknown) (unknown) Peritoneum and bowel : No free fluid or air. Unenhanced bowel loops demonstrate (units unknown) (unknown) (unknown) (no date) (unknown) (unknown) Procedure: CT cervical spine wo con (units unknown) (unknown) (unknown) (no date) (unknown) (unknown) Procedure: CT chest abd pel w con (units unknown) (unknown) (unknown) (no date) (unknown) (unknown) Procedure: CT head/brain wo con (units unknown) (unknown) (unknown) (no date) (unknown) (unknown) Procedure: XR chest 1V (units unknown) (unknown) (unknown) (no date) (unknown) (unknown) Procedure: XR pelvis 1-2V (units unknown) (unknown) (unknown) (no date) (unknown) (unknown) Remote left L1 and L 2 transverse process fractures. No acute fracture. (units unknown) (unknown) (unknown) (no date) (unknown) (unknown) Sagittal (units unknown) (unknown) (unknown) (no date) (unknown) (unknown) Signed (units unknown) (unknown) (unknown) (no date) (unknown) (unknown) Sinuses: Visualized sinuses and mastoids are clear. (units unknown) (unknown) (unknown) (no date) (unknown) (unknown) Skull and face: Calvarium and visualized facial bones are intact, without (units unknown) (unknown) (unknown) (no date) (unknown) (unknown) Small hiatal hernia. (units unknown) (unknown) (unknown) (no date) (unknown) (unknown) Soft tissue injury overlying the superior right orbit/right frontal bone. (units unknown) (unknown) (unknown) (no date) (unknown) (unknown) Soft tissues: Prevertebral soft tissues are normal in thickness. No (units unknown) (unknown) (unknown) (no date) (unknown) (unknown) Soft tissues: Visualized bowel gas pattern is normal. No suspicious soft (units unknown) (unknown) (unknown) (no date) (unknown) (unknown) Solid organs: Liver is normal in size and enhancement, without lacerations. (units unknown) (unknown) (unknown) (no date) (unknown) (unknown) Stable lung nodules with the largest measuring 6 mm. (units unknown) (unknown) (unknown) (no date) (unknown) (unknown) Subtle debris noted within the posterior aspect of the trachea. Stable lung (units unknown) (unknown) (unknown) (no date) (unknown) (unknown) Surgical changes and devices: Overlying EKG wires. Neurostimulator projects (units unknown) (unknown) (unknown) (no date) (unknown) (unknown) TECHNIQUE: 1 view(s) of the pelvis acquired. (units unknown) (unknown) (unknown) (no date) (unknown) (unknown) TECHNIQUE: One view of the chest was acquired. (units unknown) (unknown) (unknown) (no date) (unknown) (unknown) TECHNIQUE: (units unknown) (unknown) (unknown) (no date) (unknown) (unknown) There is diffuse intervertebral disc space loss. Vertebral body heights are (units unknown) (unknown) (unknown) (no date) (unknown) (unknown) Thoracic aorta and pulmonary arteries demonstrate normal size and enhancement. (units unknown) (unknown) (unknown) (no date) (unknown) (unknown) Ventricles (units unknown) (unknown) (unknown) (no date) (unknown) (unknown) XRay Report (units unknown) (unknown) (unknown) (no date) (unknown) (unknown) acquired (units unknown) (unknown) (unknown) (no date) (unknown) (unknown) acquired. (units unknown) (unknown) (unknown) (no date) (unknown) (unknown) acute displaced rib fracture. Overlying soft tissues appear unremarkable. (units unknown) (unknown) (unknown) (no date) (unknown) (unknown) adrenal (units unknown) (unknown) (unknown) (no date) (unknown) (unknown) and coronal reformat s were then constructed. For radiation dose reduction, the (units unknown) (unknown) (unknown) (no date) (unknown) (unknown) are normal in size and shape. (units unknown) (unknown) (unknown) (no date) (unknown) (unknown) automated (units unknown) (unknown) (unknown) (no date) (unknown) (unknown) bony spinal canal stenosis. Mild the moderate neural foraminal stenosis is (units unknown) (unknown) (unknown) (no date) (unknown) (unknown) calcifications. Neurostimulator device overlying the left ilium/sacrum. (units unknown) (unknown) (unknown) (no date) (unknown) (unknown) caliber. (units unknown) (unknown) (unknown) (no date) (unknown) (unknown) cava are normal in size and enhancement. (units unknown) (unknown) (unknown) (no date) (unknown) (unknown) changes of the hips. (units unknown) (unknown) (unknown) (no date) (unknown) (unknown) degenerative (units unknown) (unknown) (unknown) (no date) (unknown) (unknown) effusion. (units unknown) (unknown) (unknown) (no date) (unknown) (unknown) exposure control, adjustment of mA and/or kV according to patient size. (units unknown) (unknown) (unknown) (no date) (unknown) (unknown) following (units unknown) (unknown) (unknown) (no date) (unknown) (unknown) fractures. No (units unknown) (unknown) (unknown) (no date) (unknown) (unknown) fractures. (units unknown) (unknown) (unknown) (no date) (unknown) (unknown) from the (units unknown) (unknown) (unknown) (no date) (unknown) (unknown) gland is (units unknown) (unknown) (unknown) (no date) (unknown) (unknown) hematomas. Both kidneys enhance normally, without hydronephrosis or (units unknown) (unknown) (unknown) (no date) (unknown) (unknown) hematomas. No apical pneumothoraces. (units unknown) (unknown) (unknown) (no date) (unknown) (unknown) hernia. (units unknown) (unknown) (unknown) (no date) (unknown) (unknown) inferior vena (units unknown) (unknown) (unknown) (no date) (unknown) (unknown) interface is normal. (units unknown) (unknown) (unknown) (no date) (unknown) (unknown) is unremarkable. Biliary system is non-dilated. Pancreas enhances normally, (units unknown) (unknown) (unknown) (no date) (unknown) (unknown) kidneys (units unknown) (unknown) (unknown) (no date) (unknown) (unknown) lacerations. (units unknown) (unknown) (unknown) (no date) (unknown) (unknown) left scapular and L1-L2 transverse process fractures. (units unknown) (unknown) (unknown) (no date) (unknown) (unknown) lesions. Small hematoma overlying the inferior right frontal bone/superior (units unknown) (unknown) (unknown) (no date) (unknown) (unknown) likely small soft tissue defect. (units unknown) (unknown) (unknown) (no date) (unknown) (unknown) lung apices to the symphysis. 2.5 mm thick coronal and sagittal reformats were (units unknown) (unknown) (unknown) (no date) (unknown) (unknown) maintained. (units unknown) (unknown) (unknown) (no date) (unknown) (unknown) matter (units unknown) (unknown) (unknown) (no date) (unknown) (unknown) mediastinal or hilar adenopathy. Esophagus is normal in caliber. Small hiatal (units unknown) (unknown) (unknown) (no date) (unknown) (unknown) multiple levels. Visualized superior ribs are intact. (units unknown) (unknown) (unknown) (no date) (unknown) (unknown) nodules with (units unknown) (unknown) (unknown) (no date) (unknown) (unknown) nodules. (units unknown) (unknown) (unknown) (no date) (unknown) (unknown) normal (units unknown) (unknown) (unknown) (no date) (unknown) (unknown) noted at (units unknown) (unknown) (unknown) (no date) (unknown) (unknown) of mild (units unknown) (unknown) (unknown) (no date) (unknown) (unknown) orbit with (units unknown) (unknown) (unknown) (no date) (unknown) (unknown) overlying (units unknown) (unknown) (unknown) (no date) (unknown) (unknown) paravertebral (units unknown) (unknown) (unknown) (no date) (unknown) (unknown) patient (units unknown) (unknown) (unknown) (no date) (unknown) (unknown) pneumothorax or hemothorax. Central and peripheral airways appear normal in (units unknown) (unknown) (unknown) (no date) (unknown) (unknown) pulmonary (units unknown) (unknown) (unknown) (no date) (unknown) (unknown) right middle lobe an d left lower lobe are unchanged. No new or suspicious (units unknown) (unknown) (unknown) (no date) (unknown) (unknown) size. (units unknown) (unknown) (unknown) (no date) (unknown) (unknown) subcutaneous emphysema. No axillary or supraclavicular adenopathy. Thyroid (units unknown) (unknown) (unknown) (no date) (unknown) (unknown) suspicious (units unknown) (unknown) (unknown) (no date) (unknown) (unknown) the largest in the right lower lobe measuring 6 mm. Additional 3 mm nodules (units unknown) (unknown) (unknown) (no date) (unknown) (unknown) the thoracic spine. (units unknown) (unknown) (unknown) (no date) (unknown) (unknown) through the lungs. Optional 10-minute delayed imaging may be performed from the (units unknown) (unknown) (unknown) (no date) (unknown) (unknown) tissue (units unknown) (unknown) (unknown) (no date) (unknown) (unknown) to the bladder. For radiation dose reduction, the following was used: (units unknown) (unknown) (unknown) (no date) (unknown) (unknown) to the (units unknown) (unknown) (unknown) (no date) (unknown) (unknown) transection. Spleen is normal in size and enhancement, without lacerations. No (units unknown) (unknown) (unknown) (no date) (unknown) (unknown) unchanged. (units unknown) (unknown) (unknown) (no date) (unknown) (unknown) unremarkable. Remote left scapular fracture. (units unknown) (unknown) (unknown) (no date) (unknown) (unknown) vertex, with coronal and sagittal reformats. For radiation dose reduction, the (units unknown) (unknown) (unknown) (no date) (unknown) (unknown) wall thickness and caliber. (units unknown) (unknown) (unknown) (no date) (unknown) (unknown) was used: automated exposure control, adjustment of mA and/or kV according to (units unknown) (unknown) (unknown) (no date) (unknown) (unknown) with remote (units unknown) (unknown) (unknown) (no date) (unknown) (unknown) within the (units unknown) (unknown) (unknown) (no date) (unknown) (unknown) without (units unknown) (unknown) Result panel 216 (unknown) (no date) (unknown) (unknown) (no value) (units unknown) (unknown) (unknown) (no date) (unknown) (unknown) (Lidoderm) (units unknown) (unknown) (unknown) (no date) (unknown) (unknown) (Zofran) vomiting #1 5 tabs (units unknown) (unknown) (unknown) (no date) (unknown) (unknown) [id number] (units unknown) (unknown) (unknown) (no date) (unknown) (unknown) 01/14/23 10:27 (units unknown) (unknown) (unknown) (no date) (unknown) (unknown) 01/14/23 10:29 (units unknown) (unknown) (unknown) (no date) (unknown) (unknown) 1 - 2 tab PO Q4-6H PRN (Reason: pain) (units unknown) (unknown) (unknown) (no date) (unknown) (unknown) 1 tab PO BEDTIME PRN (Reason: stool softener) (units unknown) (unknown) (unknown) (no date) (unknown) (unknown) 1 tab PO DAILY (units unknown) (unknown) (unknown) (no date) (unknown) (unknown) 1 tab PO Q4H PRN (Reason: Spasms) (units unknown) (unknown) (unknown) (no date) (unknown) (unknown) 1-2 tabs as needed for nausea and vomiting (units unknown) (unknown) (unknown) (no date) (unknown) (unknown) 10 mg PO Q6H PRN (Reason: pain) Qty: 16 0RF (units unknown) (unknown) (unknown) (no date) (unknown) (unknown) 10 mg PO TID PRN (Reason: muscle spasm) Qty: 15 0RF (units unknown) (unknown) (unknown) (no date) (unknown) (unknown) 2 cap PO TID (units unknown) (unknown) (unknown) (no date) (unknown) (unknown) 2 patch TOP DAILY Qty: 15 0RF (units unknown) (unknown) (unknown) (no date) (unknown) (unknown) 4 extremities moving , cranial nerves II through XII are intact, GCS is 15 (units unknown) (unknown) (unknown) (no date) (unknown) (unknown) 4 mg PO Q6H PRN (Reason: nausea and vomiting) Qty: 15 0RF (units unknown) (unknown) (unknown) (no date) (unknown) (unknown) ABG/GI: Nontender, soft, normal bowel sounds, no distention, no organomegaly, (units unknown) (unknown) (unknown) (no date) (unknown) (unknown) AGE 12YR (units unknown) (unknown) (unknown) (no date) (unknown) (unknown) Age/Sex: 53 / M (units unknown) (unknown) (unknown) (no date) (unknown) (unknown) Allergies (units unknown) (unknown) (unknown) (no date) (unknown) (unknown) Allergy/AdvReac Type Severity Reaction Status Date / Time (units unknown) (unknown) (unknown) (no date) (unknown) (unknown) BACK: No CVA tenderness, no vertebral tenderness, no step-off's, no crepitus (units unknown) (unknown) (unknown) (no date) (unknown) (unknown) BURNING' (units unknown) (unknown) (unknown) (no date) (unknown) (unknown) CT cervical spine wo con Stat (units unknown) (unknown) (unknown) (no date) (unknown) (unknown) CT chest abd pel w con Stat (units unknown) (unknown) (unknown) (no date) (unknown) (unknown) CT head/brain wo con Stat (units unknown) (unknown) (unknown) (no date) (unknown) (unknown) CVS: Heart sounds ar e normal, no murmur noted, No JVD. (units unknown) (unknown) (unknown) (no date) (unknown) (unknown) Chronic low back pain (units unknown) (unknown) (unknown) (no date) (unknown) (unknown) Complete Blood Count AUTO DIFF Stat (units unknown) (unknown) (unknown) (no date) (unknown) (unknown) Comprehensive Metabolic Panel Stat (units unknown) (unknown) (unknown) (no date) (unknown) (unknown) Consult to [facility] [place] - 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 (units unknown) (unknown) (unknown) (no date) (unknown) (unknown) Course (units unknown) (unknown) (unknown) (no date) (unknown) (unknown) : 1970 Acct:[id number] (units unknown) (unknown) (unknown) (no date) (unknown) (unknown) Date of Service: 01/14/23 (units unknown) (unknown) (unknown) (no date) (unknown) (unknown) Departure (units unknown) (unknown) (unknown) (no date) (unknown) (unknown) Diphtheria/Tetanus/A c ell Pertussis (Tet,Diph,Pertuss(Isaias ll),Vac/Pf 0.5 Ml (units unknown) (unknown) (unknown) (no date) (unknown) (unknown) Discharge Plan (units unknown) (unknown) (unknown) (no date) (unknown) (unknown) Discontinued Medications (units unknown) (unknown) (unknown) (no date) (unknown) (unknown) ED Orders (units unknown) (unknown) (unknown) (no date) (unknown) (unknown) EKG-12 Lead Stat (units unknown) (unknown) (unknown) (no date) (unknown) (unknown) ENT: Patient has superficial scabbed laceration over his right brow, does not (units unknown) (unknown) (unknown) (no date) (unknown) (unknown) ER Physician: Bridgett Garrido D.O. (units unknown) (unknown) (unknown) (no date) (unknown) (unknown) EXT: Atraumatic othe r than skin changes. hips are nontender, no pedal edema, (units unknown) (unknown) (unknown) (no date) (unknown) (unknown) EYES: PERRLA, EOMI (units unknown) (unknown) (unknown) (no date) (unknown) (unknown) Emergency Report (units unknown) (unknown) (unknown) (no date) (unknown) (unknown) Ethanol (ETOH) Stat (units unknown) (unknown) (unknown) (no date) (unknown) (unknown) FEELS LIKE (units unknown) (unknown) (unknown) (no date) (unknown) (unknown) GEN: C-collar was placed by EMS in the field but patient would not keep it on. (units unknown) (unknown) (unknown) (no date) (unknown) (unknown) General (units unknown) (unknown) (unknown) (no date) (unknown) (unknown) HEAD: No evidence of trauma, no raccoon/Johnson sign. (units unknown) (unknown) (unknown) (no date) (unknown) (unknown) HEARING (units unknown) (unknown) (unknown) (no date) (unknown) (unknown) HPI - Trauma (units unknown) (unknown) (unknown) (no date) (unknown) (unknown) HPI narrative: (units unknown) (unknown) (unknown) (no date) (unknown) (unknown) History of Present Illness (units unknown) (unknown) (unknown) (no date) (unknown) (unknown) Home Medications (units unknown) (unknown) (unknown) (no date) (unknown) (unknown) [address] [address] (units unknown) (unknown) (unknown) (no date) (unknown) (unknown) LOSS AT (units unknown) (unknown) (unknown) (no date) (unknown) (unknown) Lactate (Lactic Acid ) Stat (units unknown) (unknown) (unknown) (no date) (unknown) (unknown) Limitations: no limitations (units unknown) (unknown) (unknown) (no date) (unknown) (unknown) Lipase Stat (units unknown) (unknown) (unknown) (no date) (unknown) (unknown) Lorazepam (Lorazepam 2 Mg/Ml Inj) 0.5 mg IV NOW ONE (units unknown) (unknown) (unknown) (no date) (unknown) (unknown) MDM - Trauma (units unknown) (unknown) (unknown) (no date) (unknown) (unknown) MDM Narrative (units unknown) (unknown) (unknown) (no date) (unknown) (unknown) Medical History (Updated 04/28/20 @ 00:00 by ) (units unknown) (unknown) (unknown) (no date) (unknown) (unknown) Medical decision making narrative: (units unknown) (unknown) (unknown) (no date) (unknown) (unknown) Medication Instructions Recorded Confirmed (units unknown) (unknown) (unknown) (no date) (unknown) (unknown) Medication Instructions Recorded (units unknown) (unknown) (unknown) (no date) (unknown) (unknown) Mode of arrival: EMS (units unknown) (unknown) (unknown) (no date) (unknown) (unknown) NECK: Nontender, painless range of motion, trachea midline (units unknown) (unknown) (unknown) (no date) (unknown) (unknown) NEURO: Oriented AOx3 , neuro is grossly intact, sensation and motor is normal all (units unknown) (unknown) (unknown) (no date) (unknown) (unknown) Narrative: (units unknown) (unknown) (unknown) (no date) (unknown) (unknown) No Action (units unknown) (unknown) (unknown) (no date) (unknown) (unknown) Nontender, incisions healed. (units unknown) (unknown) (unknown) (no date) (unknown) (unknown) Ordered: (units unknown) (unknown) (unknown) (no date) (unknown) (unknown) Orders (units unknown) (unknown) (unknown) (no date) (unknown) (unknown) PSYCH: Normal mood and affect (units unknown) (unknown) (unknown) (no date) (unknown) (unknown) PTT Partial Thromboplastin Rodolfo Stat (units unknown) (unknown) (unknown) (no date) (unknown) (unknown) Patient Comments: (units unknown) (unknown) (unknown) (no date) (unknown) (unknown) Patient History (units unknown) (unknown) (unknown) (no date) (unknown) (unknown) Patient appears in moderate distress. Patient is confused has slightly slurred (units unknown) (unknown) (unknown) (no date) (unknown) (unknown) Patient denies pain, no shortness of breath, no GI or urinary symptoms. He is (units unknown) (unknown) (unknown) (no date) (unknown) (unknown) Patient states he does not know who he is aware he is. He is able to give his (units unknown) (unknown) (unknown) (no date) (unknown) (unknown) Patient: Sj Romo MR#: [id number] (units unknown) (unknown) (unknown) (no date) (unknown) (unknown) Positive Nexus criteria, there is no midline line tenderness, distracting (units unknown) (unknown) (unknown) (no date) (unknown) (unknown) Prescriptions: (units unknown) (unknown) (unknown) (no date) (unknown) (unknown) Previous Rx's (units unknown) (unknown) (unknown) (no date) (unknown) (unknown) Prothrombin Time INR Stat (units unknown) (unknown) (unknown) (no date) (unknown) (unknown) RESP: Chest is nontender and has symmetric movement, no ecchymosis, breath (units unknown) (unknown) (unknown) (no date) (unknown) (unknown) Related Data (units unknown) (unknown) (unknown) (no date) (unknown) (unknown) Review of Systems (units unknown) (unknown) (unknown) (no date) (unknown) (unknown) Rx Instructions: (units unknown) (unknown) (unknown) (no date) (unknown) (unknown) SKIN: Patient has a small 2 cm burn on his right forearm that has blistered and (units unknown) (unknown) (unknown) (no date) (unknown) (unknown) Signed By: (units unknown) (unknown) (unknown) (no date) (unknown) (unknown) Smoking Status: Milagro huang smoker (units unknown) (unknown) (unknown) (no date) (unknown) (unknown) Social History (units unknown) (unknown) (unknown) (no date) (unknown) (unknown) Source: patient, EMS , RN notes reviewed and old records reviewed (units unknown) (unknown) (unknown) (no date) (unknown) (unknown) Stated Complaint: Trauma (units unknown) (unknown) (unknown) (no date) (unknown) (unknown) Stop: 01/14/23 10:27 (units unknown) (unknown) (unknown) (no date) (unknown) (unknown) Stop: 01/14/23 10:29 (units unknown) (unknown) (unknown) (no date) (unknown) (unknown) Substance Use Type: does not use (units unknown) (unknown) (unknown) (no date) (unknown) (unknown) Syringe) 0.5 ml IM .ONCE ONE (units unknown) (unknown) (unknown) (no date) (unknown) (unknown) TK 1 TO 2 TS O Q 4 T O 6 HOURS PRF PAIN (units unknown) (unknown) (unknown) (no date) (unknown) (unknown) They also note that they were called out for a wellness check yesterday they (units unknown) (unknown) (unknown) (no date) (unknown) (unknown) This is a 53-year-ol d male who appears intoxicated, he does have scabbing with a (units unknown) (unknown) (unknown) (no date) (unknown) (unknown) This is a 53-year-ol d male with known history of alcohol abuse, insulin (units unknown) (unknown) (unknown) (no date) (unknown) (unknown) Time Seen by Provider: 01/14/23 10:26 (units unknown) (unknown) (unknown) (no date) (unknown) (unknown) Type and Screen Stat (units unknown) (unknown) (unknown) (no date) (unknown) (unknown) Urine Drug Screen, Rapid Stat (units unknown) (unknown) (unknown) (no date) (unknown) (unknown) WAS (units unknown) (unknown) (unknown) (no date) (unknown) (unknown) XR chest 1V Stat (units unknown) (unknown) (unknown) (no date) (unknown) (unknown) XR pelvis 1-2V Stat (units unknown) (unknown) (unknown) (no date) (unknown) (unknown) [From BETADINE] FEEL S LIKE (units unknown) (unknown) (unknown) (no date) (unknown) (unknown) [SHELLFISH DERIVED] LIKE IT (units unknown) (unknown) (unknown) (no date) (unknown) (unknown) a small burn on his right forearm and he has bruising his girlfriend told medics (units unknown) (unknown) (unknown) (no date) (unknown) (unknown) alcohol intake frequency: 0-2 drinks per day (units unknown) (unknown) (unknown) (no date) (unknown) (unknown) and when asked he states he does want to kill himself when asked why he does not (units unknown) (unknown) (unknown) (no date) (unknown) (unknown) answer. When asked i f he has a plan he does not give one. Medics a girlfriend (units unknown) (unknown) (unknown) (no date) (unknown) (unknown) anything amiss in [facility] house but he had been found on the ground in the bathroom. (units unknown) (unknown) (unknown) (no date) (unknown) (unknown) appears older with healing skin underneath, warm and dry, no crepitus and (units unknown) (unknown) (unknown) (no date) (unknown) (unknown) arrived. (units unknown) (unknown) (unknown) (no date) (unknown) (unknown) chest and abdomen although it appears little bit older, and he has a burn on his (units unknown) (unknown) (unknown) (no date) (unknown) (unknown) chest, right upper abdomen and right lower abdomen. (units unknown) (unknown) (unknown) (no date) (unknown) (unknown) cyclobenzaprine 10 m g tablet 10 mg PO TID PRN muscle spasm #15 04/13/20 (units unknown) (unknown) (unknown) (no date) (unknown) (unknown) cyclobenzaprine 10 m g tablet (units unknown) (unknown) (unknown) (no date) (unknown) (unknown) dependent diabetes and chronic pain with a pain pump in his left abdomen. (units unknown) (unknown) (unknown) (no date) (unknown) (unknown) do his injections which he states are insulin. He states he has a pain pump in (units unknown) (unknown) (unknown) (no date) (unknown) (unknown) drinks at least a 5t h daily, he denies tobacco or illicit. He states he did not (units unknown) (unknown) (unknown) (no date) (unknown) (unknown) found blood in a different location but the patient was not present at that (units unknown) (unknown) (unknown) (no date) (unknown) (unknown) gabapentin 300 mg capsule 2 cap PO TID 07/27/18 07/27/18 (units unknown) (unknown) (unknown) (no date) (unknown) (unknown) gabapentin 300 mg capsule (units unknown) (unknown) (unknown) (no date) (unknown) (unknown) gape, trachea is midline, TM's are normal no hemotypanum, Nares are clear, no (units unknown) (unknown) (unknown) (no date) (unknown) (unknown) ground there was reportedly some glass at the scene and the medics state that (units unknown) (unknown) (unknown) (no date) (unknown) (unknown) his belly. He did make statements that he wanted to kill himself to the medics (units unknown) (unknown) (unknown) (no date) (unknown) (unknown) injury, altered mental status, neuro deficit, positive for recent EtOH. (units unknown) (unknown) (unknown) (no date) (unknown) (unknown) last saw the patient on she noted that he bought a bottle of hard (units unknown) (unknown) (unknown) (no date) (unknown) (unknown) leave on most painfu l area for up to 12 hrs (units unknown) (unknown) (unknown) (no date) (unknown) (unknown) levothyroxine 100 mc g tablet 1 tab PO DAILY 07/27/18 07/27/18 (units unknown) (unknown) (unknown) (no date) (unknown) (unknown) levothyroxine 100 mc g tablet (units unknown) (unknown) (unknown) (no date) (unknown) (unknown) lidocaine 5 % topica l patch 2 patch topical DAILY #15 ea 04/13/20 (units unknown) (unknown) (unknown) (no date) (unknown) (unknown) lidocaine [Lidoderm] 5 % adhesive patch,medicated (units unknown) (unknown) (unknown) (no date) (unknown) (unknown) liquor at that time and there was only about a few mL left today when EMS (units unknown) (unknown) (unknown) (no date) (unknown) (unknown) magnesium 1 tab PO BEDTIME PRN stool softener 07/27/18 07/27/18 (units unknown) (unknown) (unknown) (no date) (unknown) (unknown) magnesium 400 mg tablet (units unknown) (unknown) (unknown) (no date) (unknown) (unknown) methocarbamol 500 mg tablet 1 tab PO Q4H PRN Spasms 07/27/18 07/27/18 (units unknown) (unknown) (unknown) (no date) (unknown) (unknown) methocarbamol 500 mg tablet (units unknown) (unknown) (unknown) (no date) (unknown) (unknown) moving all his extremities well. Is conversant but confused. Patient states he (units unknown) (unknown) (unknown) (no date) (unknown) (unknown) name when he is registered. Patient is confused but follows commands he is (units unknown) (unknown) (unknown) (no date) (unknown) (unknown) normal color and temperature, normal range of motion of extremities with normal (units unknown) (unknown) (unknown) (no date) (unknown) (unknown) obtained is unclear what exactly occurred. Patient was called out as a modified (units unknown) (unknown) (unknown) (no date) (unknown) (unknown) occlusion, No bony tenderness (units unknown) (unknown) (unknown) (no date) (unknown) (unknown) ondansetron HCl 4 mg tablet 4 mg PO Q6H PRN nausea and 04/13/20 (units unknown) (unknown) (unknown) (no date) (unknown) (unknown) ondansetron HCl [Zofran] 4 mg tablet (units unknown) (unknown) (unknown) (no date) (unknown) (unknown) oxycodone 10 mg tablet 10 mg PO Q6H PRN pain #16 tabs 04/13/20 (units unknown) (unknown) (unknown) (no date) (unknown) (unknown) oxycodone 10 mg tablet (units unknown) (unknown) (unknown) (no date) (unknown) (unknown) oxycodone 5 mg table t 1 - 2 tab PO Q4-6H PRN pain 07/27/18 07/27/18 (units unknown) (unknown) (unknown) (no date) (unknown) (unknown) oxycodone 5 mg tablet (units unknown) (unknown) (unknown) (no date) (unknown) (unknown) pelvic rock is negative, patient has device in the left lateral abdomen. (units unknown) (unknown) (unknown) (no date) (unknown) (unknown) penicillin G [PENICILLIN G] Allergy Unknown LEFT EAR Verified 07/27/18 10:10 (units unknown) (unknown) (unknown) (no date) (unknown) (unknown) povidone-iodine Allergy Unknown 'SKIN Verified 07/27/18 10:10 (units unknown) (unknown) (unknown) (no date) (unknown) (unknown) redirectable althoug h he keeps saying he wants to get out of the bed. He has (units unknown) (unknown) (unknown) (no date) (unknown) (unknown) right forearm that also appears little bit older. Patient was found on the (units unknown) (unknown) (unknown) (no date) (unknown) (unknown) septal hematoma, no dental or oral injury, airway is normal and with normal (units unknown) (unknown) (unknown) (no date) (unknown) (unknown) shellfish derived Allergy Unknown 'SKIN FELT Verified 07/27/18 10:10 (units unknown) (unknown) (unknown) (no date) (unknown) (unknown) soap [From BETADINE] Allergy Unknown 'SKIN Verified 07/27/18 10:10 (units unknown) (unknown) (unknown) (no date) (unknown) (unknown) some blood at the scene in a different location. Patient had labs, imaging (units unknown) (unknown) (unknown) (no date) (unknown) (unknown) some broken glass, medics state the glass was cleaned up they did not see (units unknown) (unknown) (unknown) (no date) (unknown) (unknown) sounds are normal no crackles, wheezes or rales (units unknown) (unknown) (unknown) (no date) (unknown) (unknown) speech appears intoxicated but is conversant. (units unknown) (unknown) (unknown) (no date) (unknown) (unknown) superficial lack of the right forehead, he has some bruising of his anterior (units unknown) (unknown) (unknown) (no date) (unknown) (unknown) tabs (units unknown) (unknown) (unknown) (no date) (unknown) (unknown) tendon exam, 2+ pulses in all four extremities (units unknown) (unknown) (unknown) (no date) (unknown) (unknown) that is bruising on his left abdomen is from injections but onto his chest and (units unknown) (unknown) (unknown) (no date) (unknown) (unknown) they were there the day before patient was not present at home but there was (units unknown) (unknown) (unknown) (no date) (unknown) (unknown) time. Patient does not recall what trauma occurred. The somewhat repetitive. (units unknown) (unknown) (unknown) (no date) (unknown) (unknown) trauma. (units unknown) (unknown) (unknown) (no date) (unknown) (unknown) upper abdomen she is unsure. Patient was found at home in the bathroom with (units unknown) (unknown) (unknown) (no date) (unknown) (unknown) what appears to be scabbed superficial laceration over his right forehead he has (units unknown) (unknown) (unknown) (no date) (unknown) (unknown) without decubitus. Patient has ecchymosis that is about 4 cm on his anterior (units unknown) (unknown) Result panel 217 (unknown) (no date) (unknown) (unknown) 1.4 % (unknown) (unknown) (no date) (unknown) (unknown) 100 /ul (unknown) (unknown) (no date) (unknown) (unknown) 100 /ul (unknown) (unknown) (no date) (unknown) (unknown) 12.3 g/dl (unknown) (unknown) (no date) (unknown) (unknown) 13.2 % (unknown) (unknown) (no date) (unknown) (unknown) 14.9 % (unknown) (unknown) (no date) (unknown) (unknown) 1700 /ul (unknown) (unknown) (no date) (unknown) (unknown) 1800 /ul (unknown) (unknown) (no date) (unknown) (unknown) 2.2 % (unknown) (unknown) (no date) (unknown) (unknown) 296 x10 3/ul (unknown) (unknown) (no date) (unknown) (unknown) 3.80 x10 6/ul (unknown) (unknown) (no date) (unknown) (unknown) 32.5 pg (unknown) (unknown) (no date) (unknown) (unknown) 33.5 % (unknown) (unknown) (no date) (unknown) (unknown) 36.9 % (unknown) (unknown) (no date) (unknown) (unknown) 39.1 % (unknown) (unknown) (no date) (unknown) (unknown) 4.3 x10 3/ul (unknown) (unknown) (no date) (unknown) (unknown) 42.4 % (unknown) (unknown) (no date) (unknown) (unknown) 600 /ul (unknown) (unknown) (no date) (unknown) (unknown) 97.1 fl (unknown) Result panel 218 (unknown) (no date) (unknown) (unknown) 1.0 (units unknown) (unknown) (unknown) (no date) (unknown) (unknown) 11.2 seconds (unknown) (unknown) (no date) (unknown) (unknown) 34 seconds (unknown) (unknown) (no date) (unknown) (unknown) 34 seconds (unknown) Result panel 219 (unknown) (no date) (unknown) (unknown) > 60 ml/min (unknown) (unknown) (no date) (unknown) (unknown) > 60 ml/min (unknown) (unknown) (no date) (unknown) (unknown) 0.4 mg/dl (unknown) (unknown) (no date) (unknown) (unknown) 0.42 mg/dl (unknown) (unknown) (no date) (unknown) (unknown) 1.3 (units unknown) (unknown) (unknown) (no date) (unknown) (unknown) 100 mmol/l (unknown) (unknown) (no date) (unknown) (unknown) 109 u/l (unknown) (unknown) (no date) (unknown) (unknown) 140 mmol/l (unknown) (unknown) (no date) (unknown) (unknown) 146 u/l (unknown) (unknown) (no date) (unknown) (unknown) 19.0 (units unknown) (unknown) (unknown) (no date) (unknown) (unknown) 254 mg/dl (unknown) (unknown) (no date) (unknown) (unknown) 254 mg/dl (unknown) (unknown) (no date) (unknown) (unknown) 3.2 g/dl (unknown) (unknown) (no date) (unknown) (unknown) 3.9 mmol/l (unknown) (unknown) (no date) (unknown) (unknown) 30 mmol/l (unknown) (unknown) (no date) (unknown) (unknown) 4.0 g/dl (unknown) (unknown) (no date) (unknown) (unknown) 7.2 g/dl (unknown) (unknown) (no date) (unknown) (unknown) 8 mg/dl (unknown) (unknown) (no date) (unknown) (unknown) 8.5 mg/dl (unknown) (unknown) (no date) (unknown) (unknown) 87 iu/l (unknown) (unknown) (no date) (unknown) (unknown) 88 iu/l (unknown) Result panel 220 (unknown) (no date) (unknown) (unknown) > 60 ml/min (unknown) (unknown) (no date) (unknown) (unknown) > 60 ml/min (unknown) (unknown) (no date) (unknown) (unknown) 0.4 mg/dl (unknown) (unknown) (no date) (unknown) (unknown) 0.42 mg/dl (unknown) (unknown) (no date) (unknown) (unknown) 1.3 (units unknown) (unknown) (unknown) (no date) (unknown) (unknown) 100 mmol/l (unknown) (unknown) (no date) (unknown) (unknown) 109 u/l (unknown) (unknown) (no date) (unknown) (unknown) 140 mmol/l (unknown) (unknown) (no date) (unknown) (unknown) 146 u/l (unknown) (unknown) (no date) (unknown) (unknown) 19.0 (units unknown) (unknown) (unknown) (no date) (unknown) (unknown) 254 mg/dl (unknown) (unknown) (no date) (unknown) (unknown) 254 mg/dl (unknown) (unknown) (no date) (unknown) (unknown) 3.2 g/dl (unknown) (unknown) (no date) (unknown) (unknown) 3.9 mmol/l (unknown) (unknown) (no date) (unknown) (unknown) 30 mmol/l (unknown) (unknown) (no date) (unknown) (unknown) 308 mg/dl (unknown) (unknown) (no date) (unknown) (unknown) 308 mg/dl (unknown) (unknown) (no date) (unknown) (unknown) 4.0 g/dl (unknown) (unknown) (no date) (unknown) (unknown) 7.2 g/dl (unknown) (unknown) (no date) (unknown) (unknown) 8 mg/dl (unknown) (unknown) (no date) (unknown) (unknown) 8.5 mg/dl (unknown) (unknown) (no date) (unknown) (unknown) 87 iu/l (unknown) (unknown) (no date) (unknown) (unknown) 88 iu/l (unknown) Result panel 221 (unknown) (no date) (unknown) (unknown) (no value) (units unknown) (unknown) (unknown) (no date) (unknown) (unknown) (Lidoderm) (units unknown) (unknown) (unknown) (no date) (unknown) (unknown) (Zofran) vomiting #1 5 tabs (units unknown) (unknown) (unknown) (no date) (unknown) (unknown) [id number] (units unknown) (unknown) (unknown) (no date) (unknown) (unknown) 01/14/23 01/14/23 01/14/23 Range/Units (units unknown) (unknown) (unknown) (no date) (unknown) (unknown) 01/14/23 10:27 (units unknown) (unknown) (unknown) (no date) (unknown) (unknown) 01/14/23 10:29 (units unknown) (unknown) (unknown) (no date) (unknown) (unknown) 01/14/23 10:35 (units unknown) (unknown) (unknown) (no date) (unknown) (unknown) 01/14/23 10:45 (units unknown) (unknown) (unknown) (no date) (unknown) (unknown) 01/14/23 11:17 (units unknown) (unknown) (unknown) (no date) (unknown) (unknown) 01/14/23 (units unknown) (unknown) (unknown) (no date) (unknown) (unknown) 1 - 2 tab PO Q4-6H PRN (Reason: pain) (units unknown) (unknown) (unknown) (no date) (unknown) (unknown) 1 tab PO BEDTIME PRN (Reason: stool softener) (units unknown) (unknown) (unknown) (no date) (unknown) (unknown) 1 tab PO DAILY (units unknown) (unknown) (unknown) (no date) (unknown) (unknown) 1 tab PO Q4H PRN (Reason: Spasms) (units unknown) (unknown) (unknown) (no date) (unknown) (unknown) 1-2 tabs as needed for nausea and vomiting (units unknown) (unknown) (unknown) (no date) (unknown) (unknown) 10 mg PO Q6H PRN (Reason: pain) Qty: 16 0RF (units unknown) (unknown) (unknown) (no date) (unknown) (unknown) 10 mg PO TID PRN (Reason: muscle spasm) Qty: 15 0RF (units unknown) (unknown) (unknown) (no date) (unknown) (unknown) 10:22 01/14/23 (units unknown) (unknown) (unknown) (no date) (unknown) (unknown) 10:25 01/14/23 (units unknown) (unknown) (unknown) (no date) (unknown) (unknown) 10:30 (units unknown) (unknown) (unknown) (no date) (unknown) (unknown) 10:32 04 (units unknown) (unknown) (unknown) (no date) (unknown) (unknown) 10:45 10:45 10:45 (units unknown) (unknown) (unknown) (no date) (unknown) (unknown) 11:00 (units unknown) (unknown) (unknown) (no date) (unknown) (unknown) 2 cap PO TID (units unknown) (unknown) (unknown) (no date) (unknown) (unknown) 2 patch TOP DAILY Qty: 15 0RF (units unknown) (unknown) (unknown) (no date) (unknown) (unknown) 2015 white count of 4.3 normal platelets at 296. Coags are negative, renal (units unknown) (unknown) (unknown) (no date) (unknown) (unknown) 4 extremities moving , cranial nerves II through XII are intact, GCS is 15 (units unknown) (unknown) (unknown) (no date) (unknown) (unknown) 4 mg PO Q6H PRN (Reason: nausea and vomiting) Qty: 15 0RF (units unknown) (unknown) (unknown) (no date) (unknown) (unknown) ABG/GI: Nontender, soft, normal bowel sounds, no distention, no organomegaly, (units unknown) (unknown) (unknown) (no date) (unknown) (unknown) AGE 12YR (units unknown) (unknown) (unknown) (no date) (unknown) (unknown) ALT 88 H (<50) IU/L (units unknown) (unknown) (unknown) (no date) (unknown) (unknown) APTT 34 (26-36) SECONDS (units unknown) (unknown) (unknown) (no date) (unknown) (unknown) AST 87 H (17-59) IU/L (units unknown) (unknown) (unknown) (no date) (unknown) (unknown) Age/Sex: 53 / M (units unknown) (unknown) (unknown) (no date) (unknown) (unknown) Albumin 4.0 (3.5-5.0 ) g/dL (units unknown) (unknown) (unknown) (no date) (unknown) (unknown) Albumin/Globulin Ratio 1.3 (1.0-2.8) (units unknown) (unknown) (unknown) (no date) (unknown) (unknown) Alkaline Phosphatase 146 H (38-126) U/L (units unknown) (unknown) (unknown) (no date) (unknown) (unknown) Allergies (units unknown) (unknown) (unknown) (no date) (unknown) (unknown) Allergy/AdvReac Type Severity Reaction Status Date / Time (units unknown) (unknown) (unknown) (no date) (unknown) (unknown) Attestation: I personally reviewed and interpreted this ECG as follows: (units unknown) (unknown) (unknown) (no date) (unknown) (unknown) BACK: No CVA tenderness, no vertebral tenderness, no step-off's, no crepitus (units unknown) (unknown) (unknown) (no date) (unknown) (unknown) BUN 8 L (9-20) mg/dL (units unknown) (unknown) (unknown) (no date) (unknown) (unknown) BUN/Creatinine Ratio 19.0 (6-22) (units unknown) (unknown) (unknown) (no date) (unknown) (unknown) BURNING' (units unknown) (unknown) (unknown) (no date) (unknown) (unknown) Baso # (Auto) 100 (0-100) /uL (units unknown) (unknown) (unknown) (no date) (unknown) (unknown) Baso % (Auto) 1.4 (0-2) % (units unknown) (unknown) (unknown) (no date) (unknown) (unknown) Benadryl and Solu-Medrol as he was felt stable. This shows (units unknown) (unknown) (unknown) (no date) (unknown) (unknown) Blood Pressure 133/9 2 H (units unknown) (unknown) (unknown) (no date) (unknown) (unknown) Blood Pressure 149/9 4 H 01/14/23 10:22 (units unknown) (unknown) (unknown) (no date) (unknown) (unknown) Blood Pressure 149/9 4 H (units unknown) (unknown) (unknown) (no date) (unknown) (unknown) CT cervical spine wo con Stat (units unknown) (unknown) (unknown) (no date) (unknown) (unknown) CT chest abd pel w con Stat (units unknown) (unknown) (unknown) (no date) (unknown) (unknown) CT head/brain wo con Stat (units unknown) (unknown) (unknown) (no date) (unknown) (unknown) [facility]: Heart sounds ar e normal, no murmur noted, No JVD. (units unknown) (unknown) (unknown) (no date) (unknown) (unknown) Calcium 8.5 (8.4-10.2) mg/dL (units unknown) (unknown) (unknown) (no date) (unknown) (unknown) Carbon Dioxide 30 (22-32) mmol/L (units unknown) (unknown) (unknown) (no date) (unknown) (unknown) Chief Complaint: Trauma (units unknown) (unknown) (unknown) (no date) (unknown) (unknown) Chloride 100 (98-107 ) mmol/L (units unknown) (unknown) (unknown) (no date) (unknown) (unknown) Chronic low back pain (units unknown) (unknown) (unknown) (no date) (unknown) (unknown) Complete Blood Count AUTO DIFF Stat (units unknown) (unknown) (unknown) (no date) (unknown) (unknown) Comprehensive Metabolic Panel Stat (units unknown) (unknown) (unknown) (no date) (unknown) (unknown) Consult to [facility] [place] - 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 (units unknown) (unknown) (unknown) (no date) (unknown) (unknown) Course (units unknown) (unknown) (unknown) (no date) (unknown) (unknown) Creatinine 0.42 L (0.66-1.25) mg/dL (units unknown) (unknown) (unknown) (no date) (unknown) (unknown) : 1970 Acct:[id number] (units unknown) (unknown) (unknown) (no date) (unknown) (unknown) Date of Service: 01/14/23 (units unknown) (unknown) (unknown) (no date) (unknown) (unknown) Departure (units unknown) (unknown) (unknown) (no date) (unknown) (unknown) Diphenhydramine HCl (Diphenhydramine 50 Mg/Ml Vial) 50 mg IV NOW ONE (units unknown) (unknown) (unknown) (no date) (unknown) (unknown) Diphtheria/Tetanus/A c ell Pertussis (Tet,Diph,Pertuss(Isaias ll),Vac/Pf 0.5 Ml (units unknown) (unknown) (unknown) (no date) (unknown) (unknown) Discharge Plan (units unknown) (unknown) (unknown) (no date) (unknown) (unknown) Discontinued Medications (units unknown) (unknown) (unknown) (no date) (unknown) (unknown) Documented By: AT (units unknown) (unknown) (unknown) (no date) (unknown) (unknown) ECG Data (units unknown) (unknown) (unknown) (no date) (unknown) (unknown) ED Orders (units unknown) (unknown) (unknown) (no date) (unknown) (unknown) EKG-12 Lead Stat (units unknown) (unknown) (unknown) (no date) (unknown) (unknown) ENT: Patient has superficial scabbed laceration over his right brow, does not (units unknown) (unknown) (unknown) (no date) (unknown) (unknown) ER Physician: Bridgett Garrido D.O. (units unknown) (unknown) (unknown) (no date) (unknown) (unknown) EXT: Atraumatic othe r than skin changes. hips are nontender, no pedal edema, (units unknown) (unknown) (unknown) (no date) (unknown) (unknown) EYES: PERRLA, EOMI (units unknown) (unknown) (unknown) (no date) (unknown) (unknown) Emergency Report (units unknown) (unknown) (unknown) (no date) (unknown) (unknown) Eos # (Auto) 100 (0-450) /uL (units unknown) (unknown) (unknown) (no date) (unknown) (unknown) Eos % (Auto) 2.2 (2-4) % (units unknown) (unknown) (unknown) (no date) (unknown) (unknown) Estimated GFR > 60 (>60) mL/min (units unknown) (unknown) (unknown) (no date) (unknown) (unknown) Ethanol (ETOH) Stat (units unknown) (unknown) (unknown) (no date) (unknown) (unknown) Ethyl Alcohol 308 H ( - 10) mg/dL (units unknown) (unknown) (unknown) (no date) (unknown) (unknown) Exam (units unknown) (unknown) (unknown) (no date) (unknown) (unknown) FEELS LIKE (units unknown) (unknown) (unknown) (no date) (unknown) (unknown) GEN: C-collar was placed by EMS in the field but patient would not keep it on. (units unknown) (unknown) (unknown) (no date) (unknown) (unknown) General (units unknown) (unknown) (unknown) (no date) (unknown) (unknown) Globulin 3.2 (1.7-4.1) g/dL (units unknown) (unknown) (unknown) (no date) (unknown) (unknown) Glucose 254 H (70-100) mg/dL (units unknown) (unknown) (unknown) (no date) (unknown) (unknown) Glucose POC 268 (units unknown) (unknown) (unknown) (no date) (unknown) (unknown) HEAD: No evidence of trauma, no raccoon/Johnson sign. (units unknown) (unknown) (unknown) (no date) (unknown) (unknown) HEARING (units unknown) (unknown) (unknown) (no date) (unknown) (unknown) HPI - Trauma (units unknown) (unknown) (unknown) (no date) (unknown) (unknown) HPI narrative: (units unknown) (unknown) (unknown) (no date) (unknown) (unknown) Hct 36.9 L (41-53) % (units unknown) (unknown) (unknown) (no date) (unknown) (unknown) Hgb 12.3 L (13.5-17.5) g/dL (units unknown) (unknown) (unknown) (no date) (unknown) (unknown) History of Present Illness (units unknown) (unknown) (unknown) (no date) (unknown) (unknown) Home Medications (units unknown) (unknown) (unknown) (no date) (unknown) (unknown) INR 1.0 (0.9-1.3) (units unknown) (unknown) (unknown) (no date) (unknown) (unknown) Initial Vital Signs (units unknown) (unknown) (unknown) (no date) (unknown) (unknown) Initial Vital Signs: (units unknown) (unknown) (unknown) (no date) (unknown) (unknown) Interpretation: (units unknown) (unknown) (unknown) (no date) (unknown) (unknown) [address] [address] (units unknown) (unknown) (unknown) (no date) (unknown) (unknown) LOSS AT (units unknown) (unknown) (unknown) (no date) (unknown) (unknown) Lab Data (units unknown) (unknown) (unknown) (no date) (unknown) (unknown) Lab Results (units unknown) (unknown) (unknown) (no date) (unknown) (unknown) Labs show an ETOH of 308, patient has a hemoglobin of 12 baseline compared to (units unknown) (unknown) (unknown) (no date) (unknown) (unknown) Labs: (units unknown) (unknown) (unknown) (no date) (unknown) (unknown) Lactate (Lactic Acid ) Stat (units unknown) (unknown) (unknown) (no date) (unknown) (unknown) Last Admin: 01/14/23 10:42 Dose: 0.5 mg (units unknown) (unknown) (unknown) (no date) (unknown) (unknown) Last Admin: 01/14/23 11:11 Dose: 50 mg (units unknown) (unknown) (unknown) (no date) (unknown) (unknown) Last Admin: 01/14/23 11:12 Dose: 125 mg (units unknown) (unknown) (unknown) (no date) (unknown) (unknown) Limitations: no limitations (units unknown) (unknown) (unknown) (no date) (unknown) (unknown) Lipase 109 (23-300) U/L (units unknown) (unknown) (unknown) (no date) (unknown) (unknown) Lipase Stat (units unknown) (unknown) (unknown) (no date) (unknown) (unknown) Lorazepam (Lorazepam 2 Mg/Ml Inj) 0.5 mg IV NOW ONE (units unknown) (unknown) (unknown) (no date) (unknown) (unknown) Lymph # (Auto) 1700 (2242-3534) /uL (units unknown) (unknown) (unknown) (no date) (unknown) (unknown) Lymph % (Auto) 39.1 (25-40) % (units unknown) (unknown) (unknown) (no date) (unknown) (unknown) MCH 32.5 (26-34) PG (units unknown) (unknown) (unknown) (no date) (unknown) (unknown) MCHC 33.5 (30-36) % (units unknown) (unknown) (unknown) (no date) (unknown) (unknown) MCV 97.1 (80-100) fL (units unknown) (unknown) (unknown) (no date) (unknown) (unknown) MDM - Trauma (units unknown) (unknown) (unknown) (no date) (unknown) (unknown) MDM Narrative (units unknown) (unknown) (unknown) (no date) (unknown) (unknown) Medical History (Updated 04/28/20 @ 00:00 by ) (units unknown) (unknown) (unknown) (no date) (unknown) (unknown) Medical decision making narrative: (units unknown) (unknown) (unknown) (no date) (unknown) (unknown) Medication Instructions Recorded Confirmed (units unknown) (unknown) (unknown) (no date) (unknown) (unknown) Medication Instructions Recorded (units unknown) (unknown) (unknown) (no date) (unknown) (unknown) Methylprednisolone (Methylprednisolone 125 Mg/2 Ml Vial) 125 mg IV NOW ONE (units unknown) (unknown) (unknown) (no date) (unknown) (unknown) Mode of arrival: EMS (units unknown) (unknown) (unknown) (no date) (unknown) (unknown) [place] # (Auto) 600 (0-900) /uL (units unknown) (unknown) (unknown) (no date) (unknown) (unknown) [place] % (Auto) 14.9 H (3-14) % (units unknown) (unknown) (unknown) (no date) (unknown) (unknown) NECK: Nontender, painless range of motion, trachea midline (units unknown) (unknown) (unknown) (no date) (unknown) (unknown) NEURO: Oriented AOx3 , neuro is grossly intact, sensation and motor is normal all (units unknown) (unknown) (unknown) (no date) (unknown) (unknown) Narrative: (units unknown) (unknown) (unknown) (no date) (unknown) (unknown) Neut # (Auto) 1800 (0143-6783) /uL (units unknown) (unknown) (unknown) (no date) (unknown) (unknown) Neut % (Auto) 42.4 L (50-75) % (units unknown) (unknown) (unknown) (no date) (unknown) (unknown) No Action (units unknown) (unknown) (unknown) (no date) (unknown) (unknown) Nontender, incisions healed. (units unknown) (unknown) (unknown) (no date) (unknown) (unknown) Ordered: (units unknown) (unknown) (unknown) (no date) (unknown) (unknown) Orders (units unknown) (unknown) (unknown) (no date) (unknown) (unknown) Oxygen Delivery Method Room Air 01/14/23 10:22 (units unknown) (unknown) (unknown) (no date) (unknown) (unknown) Oxygen Delivery Method Room Air (units unknown) (unknown) (unknown) (no date) (unknown) (unknown) Oxygen Delivery Method (units unknown) (unknown) (unknown) (no date) (unknown) (unknown) PSYCH: Normal mood and affect (units unknown) (unknown) (unknown) (no date) (unknown) (unknown) PT 11.2 (10.1-12.7) SECONDS (units unknown) (unknown) (unknown) (no date) (unknown) (unknown) PTT Partial Thromboplastin Rodolfo Stat (units unknown) (unknown) (unknown) (no date) (unknown) (unknown) Patient Comments: (units unknown) (unknown) (unknown) (no date) (unknown) (unknown) Patient History (units unknown) (unknown) (unknown) (no date) (unknown) (unknown) Patient appears in moderate distress. Patient is confused has slightly slurred (units unknown) (unknown) (unknown) (no date) (unknown) (unknown) Patient denies pain, no shortness of breath, no GI or urinary symptoms. He is (units unknown) (unknown) (unknown) (no date) (unknown) (unknown) Patient: Sj Romo MR#: [id number] (units unknown) (unknown) (unknown) (no date) (unknown) (unknown) Plt Count 296 (150-400) X103/uL (units unknown) (unknown) (unknown) (no date) (unknown) (unknown) Point of Care Testing (units unknown) (unknown) (unknown) (no date) (unknown) (unknown) Positive Nexus criteria, there is no midline line tenderness, distracting (units unknown) (unknown) (unknown) (no date) (unknown) (unknown) Potassium 3.9 (3.4-5.1) mmol/L (units unknown) (unknown) (unknown) (no date) (unknown) (unknown) Prescriptions: (units unknown) (unknown) (unknown) (no date) (unknown) (unknown) Previous Rx's (units unknown) (unknown) (unknown) (no date) (unknown) (unknown) Prothrombin Time INR Stat (units unknown) (unknown) (unknown) (no date) (unknown) (unknown) Pulse Oximetry 97 (units unknown) (unknown) (unknown) (no date) (unknown) (unknown) Pulse Oximetry 99 01/14/23 10:22 (units unknown) (unknown) (unknown) (no date) (unknown) (unknown) Pulse Oximetry 99 96 97 (units unknown) (unknown) (unknown) (no date) (unknown) (unknown) Pulse Rate 87 87 (units unknown) (unknown) (unknown) (no date) (unknown) (unknown) Pulse Rate 95 H 01/14/23 10:22 (units unknown) (unknown) (unknown) (no date) (unknown) (unknown) Pulse Rate 95 H 94 H 87 (units unknown) (unknown) (unknown) (no date) (unknown) (unknown) RBC 3.80 L (4.5-5.9) X106/uL (units unknown) (unknown) (unknown) (no date) (unknown) (unknown) RDW 13.2 (11.6-14.8) % (units unknown) (unknown) (unknown) (no date) (unknown) (unknown) RESP: Chest is nontender and has symmetric movement, no ecchymosis, breath (units unknown) (unknown) (unknown) (no date) (unknown) (unknown) Related Data (units unknown) (unknown) (unknown) (no date) (unknown) (unknown) Respiratory Rate 14 (units unknown) (unknown) (unknown) (no date) (unknown) (unknown) Respiratory Rate 18 01/14/23 10:22 (units unknown) (unknown) (unknown) (no date) (unknown) (unknown) Respiratory Rate 18 12 14 (units unknown) (unknown) (unknown) (no date) (unknown) (unknown) Review of Systems (units unknown) (unknown) (unknown) (no date) (unknown) (unknown) Rx Instructions: (units unknown) (unknown) (unknown) (no date) (unknown) (unknown) SKIN: Patient has a small 2 cm burn on his right forearm that has blistered and (units unknown) (unknown) (unknown) (no date) (unknown) (unknown) Signed By: (units unknown) (unknown) (unknown) (no date) (unknown) (unknown) Smoking Status: Milagro huang smoker (units unknown) (unknown) (unknown) (no date) (unknown) (unknown) Social History (units unknown) (unknown) (unknown) (no date) (unknown) (unknown) Sodium 140 (137-145) mmol/L (units unknown) (unknown) (unknown) (no date) (unknown) (unknown) Source: patient, EMS , RN notes reviewed and old records reviewed (units unknown) (unknown) (unknown) (no date) (unknown) (unknown) Stated Complaint: Trauma (units unknown) (unknown) (unknown) (no date) (unknown) (unknown) Stop: 01/14/23 10:27 (units unknown) (unknown) (unknown) (no date) (unknown) (unknown) Stop: 01/14/23 10:29 (units unknown) (unknown) (unknown) (no date) (unknown) (unknown) Stop: 01/14/23 10:58 (units unknown) (unknown) (unknown) (no date) (unknown) (unknown) Substance Use Type: does not use (units unknown) (unknown) (unknown) (no date) (unknown) (unknown) Syringe) 0.5 ml IM .ONCE ONE (units unknown) (unknown) (unknown) (no date) (unknown) (unknown) TK 1 TO 2 TS O Q 4 T O 6 HOURS PRF PAIN (units unknown) (unknown) (unknown) (no date) (unknown) (unknown) Temperature 97.4 F L 01/14/23 10:22 (units unknown) (unknown) (unknown) (no date) (unknown) (unknown) Temperature 97.4 F L (units unknown) (unknown) (unknown) (no date) (unknown) (unknown) Temperature (units unknown) (unknown) (unknown) (no date) (unknown) (unknown) They also note that they were called out for a wellness check yesterday they (units unknown) (unknown) (unknown) (no date) (unknown) (unknown) This is a 53-year-ol d male who appears intoxicated, he does have scabbing with a (units unknown) (unknown) (unknown) (no date) (unknown) (unknown) This is a 53-year-ol d male with known history of alcohol abuse, insulin (units unknown) (unknown) (unknown) (no date) (unknown) (unknown) Time Seen by Provider: 01/14/23 10:26 (units unknown) (unknown) (unknown) (no date) (unknown) (unknown) To sleep sinus rhyth m rate of 72 OH 130 QRS of 98 QTC [address]. No acute ST (units unknown) (unknown) (unknown) (no date) (unknown) (unknown) Total Bilirubin 0.4 (0.2-1.3) mg/dL (units unknown) (unknown) (unknown) (no date) (unknown) (unknown) Total Protein 7.2 (6.3-8.2) g/dL (units unknown) (unknown) (unknown) (no date) (unknown) (unknown) Type and Screen Stat (units unknown) (unknown) (unknown) (no date) (unknown) (unknown) Urine Drug Screen, Rapid Stat (units unknown) (unknown) (unknown) (no date) (unknown) (unknown) Vital Signs - 8 hr (units unknown) (unknown) (unknown) (no date) (unknown) (unknown) Vital Signs (units unknown) (unknown) (unknown) (no date) (unknown) (unknown) Vital signs: (units unknown) (unknown) (unknown) (no date) (unknown) (unknown) WAS (units unknown) (unknown) (unknown) (no date) (unknown) (unknown) WBC 4.3 L (4.5-11.0) X103/uL (units unknown) (unknown) (unknown) (no date) (unknown) (unknown) XR chest 1V Stat (units unknown) (unknown) (unknown) (no date) (unknown) (unknown) XR pelvis 1-2V Stat (units unknown) (unknown) (unknown) (no date) (unknown) (unknown) [Embedded Image Not Available] (units unknown) (unknown) (unknown) (no date) (unknown) (unknown) [From BETADINE] FEEL S LIKE (units unknown) (unknown) (unknown) (no date) (unknown) (unknown) [SHELLFISH DERIVED] LIKE IT (units unknown) (unknown) (unknown) (no date) (unknown) (unknown) a small burn on his right forearm and he has bruising his girlfriend told medics (units unknown) (unknown) (unknown) (no date) (unknown) (unknown) alcohol intake frequency: 0-2 drinks per day (units unknown) (unknown) (unknown) (no date) (unknown) (unknown) allergy to iodine which he did not tell us earlier. Was pretreated with (units unknown) (unknown) (unknown) (no date) (unknown) (unknown) and when asked he states he does want to kill himself when asked why he does not (units unknown) (unknown) (unknown) (no date) (unknown) (unknown) answer. When asked i f he has a plan he does not give one. Medics a girlfriend (units unknown) (unknown) (unknown) (no date) (unknown) (unknown) anything amiss in e house but he had been found on the ground in the bathroom. (units unknown) (unknown) (unknown) (no date) (unknown) (unknown) appears older with healing skin underneath, warm and dry, no crepitus and (units unknown) (unknown) (unknown) (no date) (unknown) (unknown) arrived. (units unknown) (unknown) (unknown) (no date) (unknown) (unknown) chest abdomen pelvis there was some delay as it was found patient has reported (units unknown) (unknown) (unknown) (no date) (unknown) (unknown) chest and abdomen although it appears little bit older, and he has a burn on his (units unknown) (unknown) (unknown) (no date) (unknown) (unknown) chest, right upper abdomen and right lower abdomen. (units unknown) (unknown) (unknown) (no date) (unknown) (unknown) cyclobenzaprine 10 m g tablet 10 mg PO TID PRN muscle spasm #15 04/13/20 (units unknown) (unknown) (unknown) (no date) (unknown) (unknown) cyclobenzaprine 10 m g tablet (units unknown) (unknown) (unknown) (no date) (unknown) (unknown) dependent diabetes and chronic pain with a pain pump in his left abdomen. Patie (units unknown) (unknown) (unknown) (no date) (unknown) (unknown) do his injections which he states are insulin. He states he has a pain pump in (units unknown) (unknown) (unknown) (no date) (unknown) (unknown) drinks at least a 5t h daily, he denies tobacco or illicit. He states he did not (units unknown) (unknown) (unknown) (no date) (unknown) (unknown) elevation or depression. (units unknown) (unknown) (unknown) (no date) (unknown) (unknown) found blood in a different location but the patient was not present at that (units unknown) (unknown) (unknown) (no date) (unknown) (unknown) function at baseline at 0.42 normal electrolytes glucose is 254, AST ALT alk (units unknown) (unknown) (unknown) (no date) (unknown) (unknown) gabapentin 300 mg capsule 2 cap PO TID 07/27/18 07/27/18 (units unknown) (unknown) (unknown) (no date) (unknown) (unknown) gabapentin 300 mg capsule (units unknown) (unknown) (unknown) (no date) (unknown) (unknown) gape, trachea is midline, TM's are normal no hemotypanum, Nares are clear, no (units unknown) (unknown) (unknown) (no date) (unknown) (unknown) ground there was reportedly some glass at the scene and the medics state that (units unknown) (unknown) (unknown) (no date) (unknown) (unknown) his belly. He did make statements that he wanted to kill himself to the medics (units unknown) (unknown) (unknown) (no date) (unknown) (unknown) his prior injuries with chest and abdominal bruising, with CT head, C-spine and (units unknown) (unknown) (unknown) (no date) (unknown) (unknown) injury, altered mental status, neuro deficit, positive for recent EtOH. (units unknown) (unknown) (unknown) (no date) (unknown) (unknown) last saw the patient on she noted that he bought a bottle of hard (units unknown) (unknown) (unknown) (no date) (unknown) (unknown) leave on most painfu l area for up to 12 hrs (units unknown) (unknown) (unknown) (no date) (unknown) (unknown) levothyroxine 100 mc g tablet 1 tab PO DAILY 07/27/18 07/27/18 (units unknown) (unknown) (unknown) (no date) (unknown) (unknown) levothyroxine 100 mc g tablet (units unknown) (unknown) (unknown) (no date) (unknown) (unknown) lidocaine 5 % topica l patch 2 patch topical DAILY #15 ea 04/13/20 (units unknown) (unknown) (unknown) (no date) (unknown) (unknown) lidocaine [Lidoderm] 5 % adhesive patch,medicated (units unknown) (unknown) (unknown) (no date) (unknown) (unknown) liquor at that time and there was only about a few mL left today when EMS (units unknown) (unknown) (unknown) (no date) (unknown) (unknown) magnesium 1 tab PO BEDTIME PRN stool softener 07/27/18 07/27/18 (units unknown) (unknown) (unknown) (no date) (unknown) (unknown) magnesium 400 mg tablet (units unknown) (unknown) (unknown) (no date) (unknown) (unknown) methocarbamol 500 mg tablet 1 tab PO Q4H PRN Spasms 07/27/18 07/27/18 (units unknown) (unknown) (unknown) (no date) (unknown) (unknown) methocarbamol 500 mg tablet (units unknown) (unknown) (unknown) (no date) (unknown) (unknown) moving all his extremities well. Is conversant but confused. Patient states he (units unknown) (unknown) (unknown) (no date) (unknown) (unknown) negative. Patient wa s CT scan secondary to intoxication unclear mechanism of (units unknown) (unknown) (unknown) (no date) (unknown) (unknown) normal color and temperature, normal range of motion of extremities with normal (units unknown) (unknown) (unknown) (no date) (unknown) (unknown) nt states he does no t know who he is aware he is. He is able to give his name (units unknown) (unknown) (unknown) (no date) (unknown) (unknown) obtained is unclear what exactly occurred. Patient was called out as a modified (units unknown) (unknown) (unknown) (no date) (unknown) (unknown) occlusion, No bony tenderness (units unknown) (unknown) (unknown) (no date) (unknown) (unknown) ondansetron HCl 4 mg tablet 4 mg PO Q6H PRN nausea and 04/13/20 (units unknown) (unknown) (unknown) (no date) (unknown) (unknown) ondansetron HCl [Zofran] 4 mg tablet (units unknown) (unknown) (unknown) (no date) (unknown) (unknown) oxycodone 10 mg tablet 10 mg PO Q6H PRN pain #16 tabs 04/13/20 (units unknown) (unknown) (unknown) (no date) (unknown) (unknown) oxycodone 10 mg tablet (units unknown) (unknown) (unknown) (no date) (unknown) (unknown) oxycodone 5 mg table t 1 - 2 tab PO Q4-6H PRN pain 07/27/18 07/27/18 (units unknown) (unknown) (unknown) (no date) (unknown) (unknown) oxycodone 5 mg tablet (units unknown) (unknown) (unknown) (no date) (unknown) (unknown) pelvic rock is negative, patient has device in the left lateral abdomen. (units unknown) (unknown) (unknown) (no date) (unknown) (unknown) penicillin G [PENICILLIN G] Allergy Unknown LEFT EAR Verified 07/27/18 10:10 (units unknown) (unknown) (unknown) (no date) (unknown) (unknown) phos are 8788 and 14 6 with a negative bilirubin and lipase of 109. EKG shows a (units unknown) (unknown) (unknown) (no date) (unknown) (unknown) povidone-iodine Allergy Unknown 'SKIN Verified 07/27/18 10:10 (units unknown) (unknown) (unknown) (no date) (unknown) (unknown) redirectable althoug h he keeps saying he wants to get out of the bed. He has (units unknown) (unknown) (unknown) (no date) (unknown) (unknown) right forearm that also appears little bit older. Patient was found on the (units unknown) (unknown) (unknown) (no date) (unknown) (unknown) septal hematoma, no dental or oral injury, airway is normal and with normal (units unknown) (unknown) (unknown) (no date) (unknown) (unknown) shellfish derived Allergy Unknown 'SKIN FELT Verified 07/27/18 10:10 (units unknown) (unknown) (unknown) (no date) (unknown) (unknown) sinus rhythm no acut e ST changes. Initial chest x-ray and pelvic x-ray is (units unknown) (unknown) (unknown) (no date) (unknown) (unknown) soap [From BETADINE] Allergy Unknown 'SKIN Verified 07/27/18 10:10 (units unknown) (unknown) (unknown) (no date) (unknown) (unknown) some blood at the scene in a different location. Patient had labs, imaging (units unknown) (unknown) (unknown) (no date) (unknown) (unknown) some broken glass, medics state the glass was cleaned up they did not see (units unknown) (unknown) (unknown) (no date) (unknown) (unknown) sounds are normal no crackles, wheezes or rales (units unknown) (unknown) (unknown) (no date) (unknown) (unknown) speech appears intoxicated but is conversant. (units unknown) (unknown) (unknown) (no date) (unknown) (unknown) superficial lack of the right forehead, he has some bruising of his anterior (units unknown) (unknown) (unknown) (no date) (unknown) (unknown) tabs (units unknown) (unknown) (unknown) (no date) (unknown) (unknown) tendon exam, 2+ pulses in all four extremities (units unknown) (unknown) (unknown) (no date) (unknown) (unknown) that is bruising on his left abdomen is from injections but onto his chest and (units unknown) (unknown) (unknown) (no date) (unknown) (unknown) they were there the day before patient was not present at home but there was (units unknown) (unknown) (unknown) (no date) (unknown) (unknown) time. Patient does not recall what trauma occurred. The somewhat repetitive. (units unknown) (unknown) (unknown) (no date) (unknown) (unknown) trauma. (units unknown) (unknown) (unknown) (no date) (unknown) (unknown) upper abdomen she is unsure. Patient was found at home in the bathroom with (units unknown) (unknown) (unknown) (no date) (unknown) (unknown) what appears to be scabbed superficial laceration over his right forehead he has (units unknown) (unknown) (unknown) (no date) (unknown) (unknown) when he is registered. Patient is confused but follows commands he is (units unknown) (unknown) (unknown) (no date) (unknown) (unknown) without decubitus. Patient has ecchymosis that is about 4 cm on his anterior (units unknown) (unknown) Result panel 222 (unknown) (no date) (unknown) (unknown) NEGATIVE (units unknown) (unknown) (unknown) (no date) (unknown) (unknown) O Positive (units unknown) (unknown) Result panel 223 (unknown) (no date) (unknown) (unknown) 2.1 mmol/l (unknown) Result panel 224 (unknown) (no date) (unknown) (unknown) 1.9 mmol/l (unknown) Result panel 225 (unknown) (no date) (unknown) (unknown) (no value) (units unknown) (unknown) (unknown) (no date) (unknown) (unknown) (Lidoderm) (units unknown) (unknown) (unknown) (no date) (unknown) (unknown) (Zofran) vomiting #1 5 tabs (units unknown) (unknown) (unknown) (no date) (unknown) (unknown) [id number] (units unknown) (unknown) (unknown) (no date) (unknown) (unknown) 01/14/23 01/14/23 01/14/23 Range/Units (units unknown) (unknown) (unknown) (no date) (unknown) (unknown) 01/14/23 10:27 (units unknown) (unknown) (unknown) (no date) (unknown) (unknown) 01/14/23 10:29 (units unknown) (unknown) (unknown) (no date) (unknown) (unknown) 01/14/23 10:35 (units unknown) (unknown) (unknown) (no date) (unknown) (unknown) 01/14/23 10:45 (units unknown) (unknown) (unknown) (no date) (unknown) (unknown) 01/14/23 11:17 (units unknown) (unknown) (unknown) (no date) (unknown) (unknown) 01/14/23 11:23 (units unknown) (unknown) (unknown) (no date) (unknown) (unknown) 01/14/23 14:07 (units unknown) (unknown) (unknown) (no date) (unknown) (unknown) 01/14/23 (units unknown) (unknown) (unknown) (no date) (unknown) (unknown) 1 - 2 tab PO Q4-6H PRN (Reason: pain) (units unknown) (unknown) (unknown) (no date) (unknown) (unknown) 1 tab PO BEDTIME PRN (Reason: stool softener) (units unknown) (unknown) (unknown) (no date) (unknown) (unknown) 1 tab PO DAILY (units unknown) (unknown) (unknown) (no date) (unknown) (unknown) 1 tab PO Q4H PRN (Reason: Spasms) (units unknown) (unknown) (unknown) (no date) (unknown) (unknown) 1-2 tabs as needed for nausea and vomiting (units unknown) (unknown) (unknown) (no date) (unknown) (unknown) 10 mg PO Q6H PRN (Reason: pain) Qty: 16 0RF (units unknown) (unknown) (unknown) (no date) (unknown) (unknown) 10 mg PO TID PRN (Reason: muscle spasm) Qty: 15 0RF (units unknown) (unknown) (unknown) (no date) (unknown) (unknown) 10:22 01/14/23 (units unknown) (unknown) (unknown) (no date) (unknown) (unknown) 10:25 01/14/23 (units unknown) (unknown) (unknown) (no date) (unknown) (unknown) 10:30 (units unknown) (unknown) (unknown) (no date) (unknown) (unknown) 10:32 01/14/23 (units unknown) (unknown) (unknown) (no date) (unknown) (unknown) 10:45 10:45 10:45 (units unknown) (unknown) (unknown) (no date) (unknown) (unknown) 10:45 11:23 13:48 (units unknown) (unknown) (unknown) (no date) (unknown) (unknown) 11:00 (units unknown) (unknown) (unknown) (no date) (unknown) (unknown) 11:24 01/14/23 (units unknown) (unknown) (unknown) (no date) (unknown) (unknown) 11:30 (units unknown) (unknown) (unknown) (no date) (unknown) (unknown) 11:31 01/14/23 (units unknown) (unknown) (unknown) (no date) (unknown) (unknown) 11:50 01/14/23 (units unknown) (unknown) (unknown) (no date) (unknown) (unknown) 11:50 (units unknown) (unknown) (unknown) (no date) (unknown) (unknown) 12:05 01/14/23 (units unknown) (unknown) (unknown) (no date) (unknown) (unknown) 12:05 (units unknown) (unknown) (unknown) (no date) (unknown) (unknown) 12:15 01/14/23 (units unknown) (unknown) (unknown) (no date) (unknown) (unknown) 12:30 01/14/23 (units unknown) (unknown) (unknown) (no date) (unknown) (unknown) 12:30 (units unknown) (unknown) (unknown) (no date) (unknown) (unknown) 12:45 01/14/23 (units unknown) (unknown) (unknown) (no date) (unknown) (unknown) 12:45 (units unknown) (unknown) (unknown) (no date) (unknown) (unknown) 13:00 01/14/23 (units unknown) (unknown) (unknown) (no date) (unknown) (unknown) 13:01 01/14/23 (units unknown) (unknown) (unknown) (no date) (unknown) (unknown) 13:01 (units unknown) (unknown) (unknown) (no date) (unknown) (unknown) 13:15 01/14/23 (units unknown) (unknown) (unknown) (no date) (unknown) (unknown) 13:30 01/14/23 (units unknown) (unknown) (unknown) (no date) (unknown) (unknown) 13:30 (units unknown) (unknown) (unknown) (no date) (unknown) (unknown) 13:49 01/14/23 (units unknown) (unknown) (unknown) (no date) (unknown) (unknown) 13:49 (units unknown) (unknown) (unknown) (no date) (unknown) (unknown) 2 cap PO TID (units unknown) (unknown) (unknown) (no date) (unknown) (unknown) 2 patch TOP DAILY Qty: 15 0RF (units unknown) (unknown) (unknown) (no date) (unknown) (unknown) 2015 white count of 4.3 normal platelets at 296. Coags are negative, renal (units unknown) (unknown) (unknown) (no date) (unknown) (unknown) 4 extremities moving , cranial nerves II through XII are intact, GCS is 15 (units unknown) (unknown) (unknown) (no date) (unknown) (unknown) 4 mg PO Q6H PRN (Reason: nausea and vomiting) Qty: 15 0RF (units unknown) (unknown) (unknown) (no date) (unknown) (unknown) ABG/GI: Nontender, soft, normal bowel sounds, no distention, no organomegaly, (units unknown) (unknown) (unknown) (no date) (unknown) (unknown) AGE 12YR (units unknown) (unknown) (unknown) (no date) (unknown) (unknown) ALT (<50) IU/L (units unknown) (unknown) (unknown) (no date) (unknown) (unknown) ALT 88 H (<50) IU/L (units unknown) (unknown) (unknown) (no date) (unknown) (unknown) APTT (26-36) SECONDS (units unknown) (unknown) (unknown) (no date) (unknown) (unknown) APTT 34 (26-36) SECONDS (units unknown) (unknown) (unknown) (no date) (unknown) (unknown) AST (17-59) IU/L (units unknown) (unknown) (unknown) (no date) (unknown) (unknown) AST 87 H (17-59) IU/L (units unknown) (unknown) (unknown) (no date) (unknown) (unknown) Age/Sex: 53 / M (units unknown) (unknown) (unknown) (no date) (unknown) (unknown) Albumin (3.5-5.0) g/dL (units unknown) (unknown) (unknown) (no date) (unknown) (unknown) Albumin 4.0 (3.5-5.0 ) g/dL (units unknown) (unknown) (unknown) (no date) (unknown) (unknown) Albumin/Globulin Ratio (1.0-2.8) (units unknown) (unknown) (unknown) (no date) (unknown) (unknown) Albumin/Globulin Ratio 1.3 (1.0-2.8) (units unknown) (unknown) (unknown) (no date) (unknown) (unknown) Alkaline Phosphatase (38-126) U/L (units unknown) (unknown) (unknown) (no date) (unknown) (unknown) Alkaline Phosphatase 146 H (38-126) U/L (units unknown) (unknown) (unknown) (no date) (unknown) (unknown) Allergies (units unknown) (unknown) (unknown) (no date) (unknown) (unknown) Allergy/AdvReac Type Severity Reaction Status Date / Time (units unknown) (unknown) (unknown) (no date) (unknown) (unknown) Antibody Screen Negative (units unknown) (unknown) (unknown) (no date) (unknown) (unknown) Antibody Screen (units unknown) (unknown) (unknown) (no date) (unknown) (unknown) Attestation: I personally reviewed and interpreted this ECG as follows: (units unknown) (unknown) (unknown) (no date) (unknown) (unknown) BACK: No CVA tenderness, no vertebral tenderness, no step-off's, no crepitus (units unknown) (unknown) (unknown) (no date) (unknown) (unknown) BUN (9-20) mg/dL (units unknown) (unknown) (unknown) (no date) (unknown) (unknown) BUN 8 L (9-20) mg/dL (units unknown) (unknown) (unknown) (no date) (unknown) (unknown) BUN/Creatinine Ratio (6-22) (units unknown) (unknown) (unknown) (no date) (unknown) (unknown) BUN/Creatinine Ratio 19.0 (6-22) (units unknown) (unknown) (unknown) (no date) (unknown) (unknown) BURNING' (units unknown) (unknown) (unknown) (no date) (unknown) (unknown) Baso # (Auto) (0-100 ) /uL (units unknown) (unknown) (unknown) (no date) (unknown) (unknown) Baso # (Auto) 100 (0-100) /uL (units unknown) (unknown) (unknown) (no date) (unknown) (unknown) Baso % (Auto) (0-2) % (units unknown) (unknown) (unknown) (no date) (unknown) (unknown) Baso % (Auto) 1.4 (0-2) % (units unknown) (unknown) (unknown) (no date) (unknown) (unknown) Benadryl and Solu-Medrol as he was felt stable. This shows (units unknown) (unknown) (unknown) (no date) (unknown) (unknown) Blood Pressure 133/9 2 H (units unknown) (unknown) (unknown) (no date) (unknown) (unknown) Blood Pressure 135/8 8 144/96 H (units unknown) (unknown) (unknown) (no date) (unknown) (unknown) Blood Pressure 146/8 2 H (units unknown) (unknown) (unknown) (no date) (unknown) (unknown) Blood Pressure 148/9 1 H 137/84 (units unknown) (unknown) (unknown) (no date) (unknown) (unknown) Blood Pressure 149/9 4 H 01/14/23 10:22 (units unknown) (unknown) (unknown) (no date) (unknown) (unknown) Blood Pressure 149/9 4 H (units unknown) (unknown) (unknown) (no date) (unknown) (unknown) Blood Pressure 151/8 7 H (units unknown) (unknown) (unknown) (no date) (unknown) (unknown) Blood Pressure 155/9 7 H (units unknown) (unknown) (unknown) (no date) (unknown) (unknown) Blood Pressure 160/9 7 H (units unknown) (unknown) (unknown) (no date) (unknown) (unknown) Blood Pressure 164/106 H 141/98 H (units unknown) (unknown) (unknown) (no date) (unknown) (unknown) Blood Pressure 181/9 5 H (units unknown) (unknown) (unknown) (no date) (unknown) (unknown) Blood Type O Positive (units unknown) (unknown) (unknown) (no date) (unknown) (unknown) Blood Type (units unknown) (unknown) (unknown) (no date) (unknown) (unknown) CT cervical spine wo con Stat (units unknown) (unknown) (unknown) (no date) (unknown) (unknown) CT chest abd pel w con Stat (units unknown) (unknown) (unknown) (no date) (unknown) (unknown) CT head/brain wo con Stat (units unknown) (unknown) (unknown) (no date) (unknown) (unknown) CVS: Heart sounds ar e normal, no murmur noted, No JVD. (units unknown) (unknown) (unknown) (no date) (unknown) (unknown) Calcium (8.4-10.2) mg/dL (units unknown) (unknown) (unknown) (no date) (unknown) (unknown) Calcium 8.5 (8.4-10.2) mg/dL (units unknown) (unknown) (unknown) (no date) (unknown) (unknown) Carbon Dioxide (22-32) mmol/L (units unknown) (unknown) (unknown) (no date) (unknown) (unknown) Carbon Dioxide 30 (22-32) mmol/L (units unknown) (unknown) (unknown) (no date) (unknown) (unknown) Chief Complaint: Trauma (units unknown) (unknown) (unknown) (no date) (unknown) (unknown) Chloride (98-107) mmol/L (units unknown) (unknown) (unknown) (no date) (unknown) (unknown) Chloride 100 (98-107 ) mmol/L (units unknown) (unknown) (unknown) (no date) (unknown) (unknown) Chronic low back pain (units unknown) (unknown) (unknown) (no date) (unknown) (unknown) Complete Blood Count AUTO DIFF Stat (units unknown) (unknown) (unknown) (no date) (unknown) (unknown) Comprehensive Metabolic Panel Stat (units unknown) (unknown) (unknown) (no date) (unknown) (unknown) Consult to [facility] [place] - 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 (units unknown) (unknown) (unknown) (no date) (unknown) (unknown) Course (units unknown) (unknown) (unknown) (no date) (unknown) (unknown) Creatinine (0.66-1.25) mg/dL (units unknown) (unknown) (unknown) (no date) (unknown) (unknown) Creatinine 0.42 L (0.66-1.25) mg/dL (units unknown) (unknown) (unknown) (no date) (unknown) (unknown) : 1970 Acct:[id number] (units unknown) (unknown) (unknown) (no date) (unknown) (unknown) Date of Service: 01/14/23 (units unknown) (unknown) (unknown) (no date) (unknown) (unknown) Departure (units unknown) (unknown) (unknown) (no date) (unknown) (unknown) Diphenhydramine HCl (Diphenhydramine 50 Mg/Ml Vial) 50 mg IV NOW ONE (units unknown) (unknown) (unknown) (no date) (unknown) (unknown) Diphtheria/Tetanus/A c ell Pertussis (Tet,Diph,Pertuss(Isaias ll),Vac/Pf 0.5 Ml (units unknown) (unknown) (unknown) (no date) (unknown) (unknown) Discharge Plan (units unknown) (unknown) (unknown) (no date) (unknown) (unknown) Discontinued Medications (units unknown) (unknown) (unknown) (no date) (unknown) (unknown) Documented By: AT (units unknown) (unknown) (unknown) (no date) (unknown) (unknown) ECG Data (units unknown) (unknown) (unknown) (no date) (unknown) (unknown) ED Orders (units unknown) (unknown) (unknown) (no date) (unknown) (unknown) EKG-12 Lead Stat (units unknown) (unknown) (unknown) (no date) (unknown) (unknown) ENT: Patient has superficial scabbed laceration over his right brow, does not (units unknown) (unknown) (unknown) (no date) (unknown) (unknown) ER Physician: Bridgett Garrido D.O. (units unknown) (unknown) (unknown) (no date) (unknown) (unknown) EXT: Atraumatic othe r than skin changes. hips are nontender, no pedal edema, (units unknown) (unknown) (unknown) (no date) (unknown) (unknown) EYES: PERRLA, EOMI (units unknown) (unknown) (unknown) (no date) (unknown) (unknown) Emergency Report (units unknown) (unknown) (unknown) (no date) (unknown) (unknown) Eos # (Auto) (0-450) /uL (units unknown) (unknown) (unknown) (no date) (unknown) (unknown) Eos # (Auto) 100 (0-450) /uL (units unknown) (unknown) (unknown) (no date) (unknown) (unknown) Eos % (Auto) (2-4) % (units unknown) (unknown) (unknown) (no date) (unknown) (unknown) Eos % (Auto) 2.2 (2-4) % (units unknown) (unknown) (unknown) (no date) (unknown) (unknown) Estimated GFR > 60 (>60) mL/min (units unknown) (unknown) (unknown) (no date) (unknown) (unknown) Estimated GFR (>60) mL/min (units unknown) (unknown) (unknown) (no date) (unknown) (unknown) Ethanol (ETOH) Stat (units unknown) (unknown) (unknown) (no date) (unknown) (unknown) Ethyl Alcohol ( - 10 ) mg/dL (units unknown) (unknown) (unknown) (no date) (unknown) (unknown) Ethyl Alcohol 308 H ( - 10) mg/dL (units unknown) (unknown) (unknown) (no date) (unknown) (unknown) Exam (units unknown) (unknown) (unknown) (no date) (unknown) (unknown) FEELS LIKE (units unknown) (unknown) (unknown) (no date) (unknown) (unknown) GEN: C-collar was placed by EMS in the field but patient would not keep it on. (units unknown) (unknown) (unknown) (no date) (unknown) (unknown) General (units unknown) (unknown) (unknown) (no date) (unknown) (unknown) Globulin (1.7-4.1) g/dL (units unknown) (unknown) (unknown) (no date) (unknown) (unknown) Globulin 3.2 (1.7-4.1) g/dL (units unknown) (unknown) (unknown) (no date) (unknown) (unknown) Glucose (70-100) mg/dL (units unknown) (unknown) (unknown) (no date) (unknown) (unknown) Glucose 254 H (70-100) mg/dL (units unknown) (unknown) (unknown) (no date) (unknown) (unknown) Glucose POC 268 (units unknown) (unknown) (unknown) (no date) (unknown) (unknown) HEAD: No evidence of trauma, no raccoon/Johnson sign. (units unknown) (unknown) (unknown) (no date) (unknown) (unknown) HEARING (units unknown) (unknown) (unknown) (no date) (unknown) (unknown) HPI - Trauma (units unknown) (unknown) (unknown) (no date) (unknown) (unknown) HPI narrative: (units unknown) (unknown) (unknown) (no date) (unknown) (unknown) Hct (41-53) % (units unknown) (unknown) (unknown) (no date) (unknown) (unknown) Hct 36.9 L (41-53) % (units unknown) (unknown) (unknown) (no date) (unknown) (unknown) Hgb (13.5-17.5) g/dL (units unknown) (unknown) (unknown) (no date) (unknown) (unknown) Hgb 12.3 L (13.5-17.5) g/dL (units unknown) (unknown) (unknown) (no date) (unknown) (unknown) History of Present Illness (units unknown) (unknown) (unknown) (no date) (unknown) (unknown) Home Medications (units unknown) (unknown) (unknown) (no date) (unknown) (unknown) INR (0.9-1.3) (units unknown) (unknown) (unknown) (no date) (unknown) (unknown) INR 1.0 (0.9-1.3) (units unknown) (unknown) (unknown) (no date) (unknown) (unknown) Initial Vital Signs (units unknown) (unknown) (unknown) (no date) (unknown) (unknown) Initial Vital Signs: (units unknown) (unknown) (unknown) (no date) (unknown) (unknown) Interpretation: (units unknown) (unknown) (unknown) (no date) (unknown) (unknown) [address] [address] (units unknown) (unknown) (unknown) (no date) (unknown) (unknown) LOSS AT (units unknown) (unknown) (unknown) (no date) (unknown) (unknown) Lab Data (units unknown) (unknown) (unknown) (no date) (unknown) (unknown) Lab Results (units unknown) (unknown) (unknown) (no date) (unknown) (unknown) Labs show an ETOH of 308, patient has a hemoglobin of 12 baseline compared to (units unknown) (unknown) (unknown) (no date) (unknown) (unknown) Labs: (units unknown) (unknown) (unknown) (no date) (unknown) (unknown) Lactate (0.7-2.1) mmol/L (units unknown) (unknown) (unknown) (no date) (unknown) (unknown) Lactate (Lactic Acid ) Stat (units unknown) (unknown) (unknown) (no date) (unknown) (unknown) Lactate 2.1 1.9 (0.7-2.1) mmol/L (units unknown) (unknown) (unknown) (no date) (unknown) (unknown) Last Admin: 01/14/23 10:42 Dose: 0.5 mg (units unknown) (unknown) (unknown) (no date) (unknown) (unknown) Last Admin: 01/14/23 11:11 Dose: 50 mg (units unknown) (unknown) (unknown) (no date) (unknown) (unknown) Last Admin: 01/14/23 11:12 Dose: 125 mg (units unknown) (unknown) (unknown) (no date) (unknown) (unknown) Limitations: no limitations (units unknown) (unknown) (unknown) (no date) (unknown) (unknown) Lipase (23-300) U/L (units unknown) (unknown) (unknown) (no date) (unknown) (unknown) Lipase 109 (23-300) U/L (units unknown) (unknown) (unknown) (no date) (unknown) (unknown) Lipase Stat (units unknown) (unknown) (unknown) (no date) (unknown) (unknown) Lorazepam (Lorazepam 2 Mg/Ml Inj) 0.5 mg IV NOW ONE (units unknown) (unknown) (unknown) (no date) (unknown) (unknown) Lorazepam (Lorazepam 2 Mg/Ml Inj) 0.5 mg IV Q2HR PRN (units unknown) (unknown) (unknown) (no date) (unknown) (unknown) Lymph # (Auto) (3400-3019) /uL (units unknown) (unknown) (unknown) (no date) (unknown) (unknown) Lymph # (Auto) 1700 (4264-3825) /uL (units unknown) (unknown) (unknown) (no date) (unknown) (unknown) Lymph % (Auto) (25-40) % (units unknown) (unknown) (unknown) (no date) (unknown) (unknown) Lymph % (Auto) 39.1 (25-40) % (units unknown) (unknown) (unknown) (no date) (unknown) (unknown) MCH (26-34) PG (units unknown) (unknown) (unknown) (no date) (unknown) (unknown) MCH 32.5 (26-34) PG (units unknown) (unknown) (unknown) (no date) (unknown) (unknown) MCHC (30-36) % (units unknown) (unknown) (unknown) (no date) (unknown) (unknown) MCHC 33.5 (30-36) % (units unknown) (unknown) (unknown) (no date) (unknown) (unknown) MCV (80-100) fL (units unknown) (unknown) (unknown) (no date) (unknown) (unknown) MCV 97.1 (80-100) fL (units unknown) (unknown) (unknown) (no date) (unknown) (unknown) MDM - Trauma (units unknown) (unknown) (unknown) (no date) (unknown) (unknown) MDM Narrative (units unknown) (unknown) (unknown) (no date) (unknown) (unknown) Medical History (Updated 04/28/20 @ 00:00 by ) (units unknown) (unknown) (unknown) (no date) (unknown) (unknown) Medical decision making narrative: (units unknown) (unknown) (unknown) (no date) (unknown) (unknown) Medication Instructions Recorded Confirmed (units unknown) (unknown) (unknown) (no date) (unknown) (unknown) Medication Instructions Recorded (units unknown) (unknown) (unknown) (no date) (unknown) (unknown) Methylprednisolone (Methylprednisolone 125 Mg/2 Ml Vial) 125 mg IV NOW ONE (units unknown) (unknown) (unknown) (no date) (unknown) (unknown) Mode of arrival: EMS (units unknown) (unknown) (unknown) (no date) (unknown) (unknown) [place] # (Auto) (0-900 ) /uL (units unknown) (unknown) (unknown) (no date) (unknown) (unknown) [place] # (Auto) 600 (0-900) /uL (units unknown) (unknown) (unknown) (no date) (unknown) (unknown) [place] % (Auto) (3-14) % (units unknown) (unknown) (unknown) (no date) (unknown) (unknown) [place] % (Auto) 14.9 H (3-14) % (units unknown) (unknown) (unknown) (no date) (unknown) (unknown) NECK: Nontender, painless range of motion, trachea midline (units unknown) (unknown) (unknown) (no date) (unknown) (unknown) NEURO: Oriented AOx3 , neuro is grossly intact, sensation and motor is normal all (units unknown) (unknown) (unknown) (no date) (unknown) (unknown) Narrative: (units unknown) (unknown) (unknown) (no date) (unknown) (unknown) Neut # (Auto) (6569-9589) /uL (units unknown) (unknown) (unknown) (no date) (unknown) (unknown) Neut # (Auto) 1800 (8189-7688) /uL (units unknown) (unknown) (unknown) (no date) (unknown) (unknown) Neut % (Auto) (50-75 ) % (units unknown) (unknown) (unknown) (no date) (unknown) (unknown) Neut % (Auto) 42.4 L (50-75) % (units unknown) (unknown) (unknown) (no date) (unknown) (unknown) No Action (units unknown) (unknown) (unknown) (no date) (unknown) (unknown) Nontender, incisions healed. (units unknown) (unknown) (unknown) (no date) (unknown) (unknown) Ordered: (units unknown) (unknown) (unknown) (no date) (unknown) (unknown) Orders (units unknown) (unknown) (unknown) (no date) (unknown) (unknown) Oxygen Delivery Method Room Air 01/14/23 10:22 (units unknown) (unknown) (unknown) (no date) (unknown) (unknown) Oxygen Delivery Method Room Air Room Air (units unknown) (unknown) (unknown) (no date) (unknown) (unknown) Oxygen Delivery Method Room Air (units unknown) (unknown) (unknown) (no date) (unknown) (unknown) Oxygen Delivery Method (units unknown) (unknown) (unknown) (no date) (unknown) (unknown) PRN Reason: Anxiety (units unknown) (unknown) (unknown) (no date) (unknown) (unknown) PSYCH: Normal mood and affect (units unknown) (unknown) (unknown) (no date) (unknown) (unknown) PT (10.1-12.7) SECONDS (units unknown) (unknown) (unknown) (no date) (unknown) (unknown) PT 11.2 (10.1-12.7) SECONDS (units unknown) (unknown) (unknown) (no date) (unknown) (unknown) PTT Partial Thromboplastin Rodolfo Stat (units unknown) (unknown) (unknown) (no date) (unknown) (unknown) Patient Comments: (units unknown) (unknown) (unknown) (no date) (unknown) (unknown) Patient History (units unknown) (unknown) (unknown) (no date) (unknown) (unknown) Patient appears in moderate distress. Patient is confused has slightly slurred (units unknown) (unknown) (unknown) (no date) (unknown) (unknown) Patient denies pain, no shortness of breath, no GI or urinary symptoms. He is (units unknown) (unknown) (unknown) (no date) (unknown) (unknown) Patient: Sj Romo MR#: [id number] (units unknown) (unknown) (unknown) (no date) (unknown) (unknown) Phenobarbital (Phenobarbital 65 Mg/Ml Vial) 260 mg IV NOW ONE (units unknown) (unknown) (unknown) (no date) (unknown) (unknown) Plt Count (150-400) X103/uL (units unknown) (unknown) (unknown) (no date) (unknown) (unknown) Plt Count 296 (150-400) X103/uL (units unknown) (unknown) (unknown) (no date) (unknown) (unknown) Point of Care Testing (units unknown) (unknown) (unknown) (no date) (unknown) (unknown) Positive Nexus criteria, there is no midline line tenderness, distracting (units unknown) (unknown) (unknown) (no date) (unknown) (unknown) Potassium (3.4-5.1) mmol/L (units unknown) (unknown) (unknown) (no date) (unknown) (unknown) Potassium 3.9 (3.4-5.1) mmol/L (units unknown) (unknown) (unknown) (no date) (unknown) (unknown) Prescriptions: (units unknown) (unknown) (unknown) (no date) (unknown) (unknown) Previous Rx's (units unknown) (unknown) (unknown) (no date) (unknown) (unknown) Prothrombin Time INR Stat (units unknown) (unknown) (unknown) (no date) (unknown) (unknown) Pulse Oximetry 93 93 (units unknown) (unknown) (unknown) (no date) (unknown) (unknown) Pulse Oximetry 93 (units unknown) (unknown) (unknown) (no date) (unknown) (unknown) Pulse Oximetry 94 (units unknown) (unknown) (unknown) (no date) (unknown) (unknown) Pulse Oximetry 95 94 (units unknown) (unknown) (unknown) (no date) (unknown) (unknown) Pulse Oximetry 95 97 (units unknown) (unknown) (unknown) (no date) (unknown) (unknown) Pulse Oximetry 95 (units unknown) (unknown) (unknown) (no date) (unknown) (unknown) Pulse Oximetry 97 96 (units unknown) (unknown) (unknown) (no date) (unknown) (unknown) Pulse Oximetry 97 (units unknown) (unknown) (unknown) (no date) (unknown) (unknown) Pulse Oximetry 99 01/14/23 10:22 (units unknown) (unknown) (unknown) (no date) (unknown) (unknown) Pulse Oximetry 99 96 97 (units unknown) (unknown) (unknown) (no date) (unknown) (unknown) Pulse Rate 74 72 (units unknown) (unknown) (unknown) (no date) (unknown) (unknown) Pulse Rate 75 76 (units unknown) (unknown) (unknown) (no date) (unknown) (unknown) Pulse Rate 76 82 (units unknown) (unknown) (unknown) (no date) (unknown) (unknown) Pulse Rate 78 80 (units unknown) (unknown) (unknown) (no date) (unknown) (unknown) Pulse Rate 80 79 (units unknown) (unknown) (unknown) (no date) (unknown) (unknown) Pulse Rate 80 (units unknown) (unknown) (unknown) (no date) (unknown) (unknown) Pulse Rate 81 (units unknown) (unknown) (unknown) (no date) (unknown) (unknown) Pulse Rate 85 (units unknown) (unknown) (unknown) (no date) (unknown) (unknown) Pulse Rate 87 87 (units unknown) (unknown) (unknown) (no date) (unknown) (unknown) Pulse Rate 95 H 01/14/23 10:22 (units unknown) (unknown) (unknown) (no date) (unknown) (unknown) Pulse Rate 95 H 94 H 87 (units unknown) (unknown) (unknown) (no date) (unknown) (unknown) RBC (4.5-5.9) X106/uL (units unknown) (unknown) (unknown) (no date) (unknown) (unknown) RBC 3.80 L (4.5-5.9) X106/uL (units unknown) (unknown) (unknown) (no date) (unknown) (unknown) RDW (11.6-14.8) % (units unknown) (unknown) (unknown) (no date) (unknown) (unknown) RDW 13.2 (11.6-14.8) % (units unknown) (unknown) (unknown) (no date) (unknown) (unknown) RESP: Chest is nontender and has symmetric movement, no ecchymosis, breath (units unknown) (unknown) (unknown) (no date) (unknown) (unknown) Related Data (units unknown) (unknown) (unknown) (no date) (unknown) (unknown) Respiratory Rate 13 11 L (units unknown) (unknown) (unknown) (no date) (unknown) (unknown) Respiratory Rate 14 14 (units unknown) (unknown) (unknown) (no date) (unknown) (unknown) Respiratory Rate 14 (units unknown) (unknown) (unknown) (no date) (unknown) (unknown) Respiratory Rate 15 (units unknown) (unknown) (unknown) (no date) (unknown) (unknown) Respiratory Rate 18 01/14/23 10:22 (units unknown) (unknown) (unknown) (no date) (unknown) (unknown) Respiratory Rate 18 12 14 (units unknown) (unknown) (unknown) (no date) (unknown) (unknown) Respiratory Rate 19 (units unknown) (unknown) (unknown) (no date) (unknown) (unknown) Respiratory Rate 20 (units unknown) (unknown) (unknown) (no date) (unknown) (unknown) Respiratory Rate (units unknown) (unknown) (unknown) (no date) (unknown) (unknown) Review of Systems (units unknown) (unknown) (unknown) (no date) (unknown) (unknown) Rx Instructions: (units unknown) (unknown) (unknown) (no date) (unknown) (unknown) SKIN: Patient has a small 2 cm burn on his right forearm that has blistered and (units unknown) (unknown) (unknown) (no date) (unknown) (unknown) Signed By: (units unknown) (unknown) (unknown) (no date) (unknown) (unknown) Smoking Status: Milagro huang smoker (units unknown) (unknown) (unknown) (no date) (unknown) (unknown) Social History (units unknown) (unknown) (unknown) (no date) (unknown) (unknown) Sodium (137-145) mmol/L (units unknown) (unknown) (unknown) (no date) (unknown) (unknown) Sodium 140 (137-145) mmol/L (units unknown) (unknown) (unknown) (no date) (unknown) (unknown) Source: patient, EMS , RN notes reviewed and old records reviewed (units unknown) (unknown) (unknown) (no date) (unknown) (unknown) Stated Complaint: Trauma (units unknown) (unknown) (unknown) (no date) (unknown) (unknown) Stop: 01/14/23 10:27 (units unknown) (unknown) (unknown) (no date) (unknown) (unknown) Stop: 01/14/23 10:29 (units unknown) (unknown) (unknown) (no date) (unknown) (unknown) Stop: 01/14/23 10:58 (units unknown) (unknown) (unknown) (no date) (unknown) (unknown) Stop: 01/14/23 13:43 (units unknown) (unknown) (unknown) (no date) (unknown) (unknown) Substance Use Type: does not use (units unknown) (unknown) (unknown) (no date) (unknown) (unknown) Syringe) 0.5 ml IM .ONCE ONE (units unknown) (unknown) (unknown) (no date) (unknown) (unknown) TK 1 TO 2 TS O Q 4 T O 6 HOURS PRF PAIN (units unknown) (unknown) (unknown) (no date) (unknown) (unknown) Temperature 97.4 F L 01/14/23 10:22 (units unknown) (unknown) (unknown) (no date) (unknown) (unknown) Temperature 97.4 F L (units unknown) (unknown) (unknown) (no date) (unknown) (unknown) Temperature (units unknown) (unknown) (unknown) (no date) (unknown) (unknown) They also note that they were called out for a wellness check yesterday they (units unknown) (unknown) (unknown) (no date) (unknown) (unknown) This is a 53-year-ol d male who appears intoxicated, he does have scabbing with a (units unknown) (unknown) (unknown) (no date) (unknown) (unknown) This is a 53-year-ol d male with known history of alcohol abuse, insulin (units unknown) (unknown) (unknown) (no date) (unknown) (unknown) Time Seen by Provider: 01/14/23 10:26 (units unknown) (unknown) (unknown) (no date) (unknown) (unknown) To sleep sinus rhyth m rate of 72 OH 130 QRS of 98 QTC [address]. No acute ST (units unknown) (unknown) (unknown) (no date) (unknown) (unknown) Total Bilirubin (0.2-1.3) mg/dL (units unknown) (unknown) (unknown) (no date) (unknown) (unknown) Total Bilirubin 0.4 (0.2-1.3) mg/dL (units unknown) (unknown) (unknown) (no date) (unknown) (unknown) Total Protein (6.3-8.2) g/dL (units unknown) (unknown) (unknown) (no date) (unknown) (unknown) Total Protein 7.2 (6.3-8.2) g/dL (units unknown) (unknown) (unknown) (no date) (unknown) (unknown) Type and Screen Stat (units unknown) (unknown) (unknown) (no date) (unknown) (unknown) Urinalysis and Microscopic Stat (units unknown) (unknown) (unknown) (no date) (unknown) (unknown) Urine Drug Screen, Rapid Stat (units unknown) (unknown) (unknown) (no date) (unknown) (unknown) Vital Signs - 8 hr (units unknown) (unknown) (unknown) (no date) (unknown) (unknown) Vital Signs (units unknown) (unknown) (unknown) (no date) (unknown) (unknown) Vital signs: (units unknown) (unknown) (unknown) (no date) (unknown) (unknown) WAS (units unknown) (unknown) (unknown) (no date) (unknown) (unknown) WBC (4.5-11.0) X103/uL (units unknown) (unknown) (unknown) (no date) (unknown) (unknown) WBC 4.3 L (4.5-11.0) X103/uL (units unknown) (unknown) (unknown) (no date) (unknown) (unknown) XR chest 1V Stat (units unknown) (unknown) (unknown) (no date) (unknown) (unknown) XR pelvis 1-2V Stat (units unknown) (unknown) (unknown) (no date) (unknown) (unknown) [Embedded Image Not Available] (units unknown) (unknown) (unknown) (no date) (unknown) (unknown) [From BETADINE] FEEL S LIKE (units unknown) (unknown) (unknown) (no date) (unknown) (unknown) [SHELLFISH DERIVED] LIKE IT (units unknown) (unknown) (unknown) (no date) (unknown) (unknown) a small burn on his right forearm and he has bruising his girlfriend told medics (units unknown) (unknown) (unknown) (no date) (unknown) (unknown) alcohol intake frequency: 0-2 drinks per day (units unknown) (unknown) (unknown) (no date) (unknown) (unknown) allergy to iodine which he did not tell us earlier. Was pretreated with (units unknown) (unknown) (unknown) (no date) (unknown) (unknown) and when asked he states he does want to kill himself when asked why he does not (units unknown) (unknown) (unknown) (no date) (unknown) (unknown) answer. When asked i f he has a plan he does not give one. Medics a girlfriend (units unknown) (unknown) (unknown) (no date) (unknown) (unknown) anything amiss in e house but he had been found on the ground in the bathroom. (units unknown) (unknown) (unknown) (no date) (unknown) (unknown) appears older with healing skin underneath, warm and dry, no crepitus and (units unknown) (unknown) (unknown) (no date) (unknown) (unknown) arrived. (units unknown) (unknown) (unknown) (no date) (unknown) (unknown) chest abdomen pelvis there was some delay as it was found patient has reported (units unknown) (unknown) (unknown) (no date) (unknown) (unknown) chest, right upper abdomen and right lower abdomen. (units unknown) (unknown) (unknown) (no date) (unknown) (unknown) cyclobenzaprine 10 m g tablet 10 mg PO TID PRN muscle spasm #15 04/13/20 (units unknown) (unknown) (unknown) (no date) (unknown) (unknown) cyclobenzaprine 10 m g tablet (units unknown) (unknown) (unknown) (no date) (unknown) (unknown) dependent diabetes and chronic pain with a pain pump in his left abdomen. Patie (units unknown) (unknown) (unknown) (no date) (unknown) (unknown) do his injections which he states are insulin. He states he has a pain pump in (units unknown) (unknown) (unknown) (no date) (unknown) (unknown) drinks at least a 5t h daily, he denies tobacco or illicit. He states he did not (units unknown) (unknown) (unknown) (no date) (unknown) (unknown) elevation or depression. (units unknown) (unknown) (unknown) (no date) (unknown) (unknown) found blood in a different location but the patient was not present at that (units unknown) (unknown) (unknown) (no date) (unknown) (unknown) function at baseline at 0.42 normal electrolytes glucose is 254, AST ALT alk (units unknown) (unknown) (unknown) (no date) (unknown) (unknown) gabapentin 300 mg capsule 2 cap PO TID 07/27/18 07/27/18 (units unknown) (unknown) (unknown) (no date) (unknown) (unknown) gabapentin 300 mg capsule (units unknown) (unknown) (unknown) (no date) (unknown) (unknown) gape, trachea is midline, TM's are normal no hemotypanum, Nares are clear, no (units unknown) (unknown) (unknown) (no date) (unknown) (unknown) ground there was reportedly some glass at the scene and the medics state that (units unknown) (unknown) (unknown) (no date) (unknown) (unknown) hest and abdomen although it appears little bit older, and he has a burn on his (units unknown) (unknown) (unknown) (no date) (unknown) (unknown) his belly. He did make statements that he wanted to kill himself to the medics (units unknown) (unknown) (unknown) (no date) (unknown) (unknown) his prior injuries with chest and abdominal bruising, with CT head, C-spine and (units unknown) (unknown) (unknown) (no date) (unknown) (unknown) injury, altered mental status, neuro deficit, positive for recent EtOH. (units unknown) (unknown) (unknown) (no date) (unknown) (unknown) last saw the patient on she noted that he bought a bottle of hard (units unknown) (unknown) (unknown) (no date) (unknown) (unknown) leave on most painfu l area for up to 12 hrs (units unknown) (unknown) (unknown) (no date) (unknown) (unknown) levothyroxine 100 mc g tablet 1 tab PO DAILY 07/27/18 07/27/18 (units unknown) (unknown) (unknown) (no date) (unknown) (unknown) levothyroxine 100 mc g tablet (units unknown) (unknown) (unknown) (no date) (unknown) (unknown) lidocaine 5 % topica l patch 2 patch topical DAILY #15 ea 04/13/20 (units unknown) (unknown) (unknown) (no date) (unknown) (unknown) lidocaine [Lidoderm] 5 % adhesive patch,medicated (units unknown) (unknown) (unknown) (no date) (unknown) (unknown) liquor at that time and there was only about a few mL left today when EMS (units unknown) (unknown) (unknown) (no date) (unknown) (unknown) magnesium 1 tab PO BEDTIME PRN stool softener 07/27/18 07/27/18 (units unknown) (unknown) (unknown) (no date) (unknown) (unknown) magnesium 400 mg tablet (units unknown) (unknown) (unknown) (no date) (unknown) (unknown) methocarbamol 500 mg tablet 1 tab PO Q4H PRN Spasms 07/27/18 07/27/18 (units unknown) (unknown) (unknown) (no date) (unknown) (unknown) methocarbamol 500 mg tablet (units unknown) (unknown) (unknown) (no date) (unknown) (unknown) moving all his extremities well. Is conversant but confused. Patient states he (units unknown) (unknown) (unknown) (no date) (unknown) (unknown) negative. Patient wa s CT scan secondary to intoxication unclear mechanism of (units unknown) (unknown) (unknown) (no date) (unknown) (unknown) normal color and temperature, normal range of motion of extremities with normal (units unknown) (unknown) (unknown) (no date) (unknown) (unknown) nt states he does no t know who he is aware he is. He is able to give his name (units unknown) (unknown) (unknown) (no date) (unknown) (unknown) obtained is unclear what exactly occurred. Patient was called out as a modified (units unknown) (unknown) (unknown) (no date) (unknown) (unknown) occlusion, No bony tenderness (units unknown) (unknown) (unknown) (no date) (unknown) (unknown) ondansetron HCl 4 mg tablet 4 mg PO Q6H PRN nausea and 04/13/20 (units unknown) (unknown) (unknown) (no date) (unknown) (unknown) ondansetron HCl [Zofran] 4 mg tablet (units unknown) (unknown) (unknown) (no date) (unknown) (unknown) oxycodone 10 mg tablet 10 mg PO Q6H PRN pain #16 tabs 04/13/20 (units unknown) (unknown) (unknown) (no date) (unknown) (unknown) oxycodone 10 mg tablet (units unknown) (unknown) (unknown) (no date) (unknown) (unknown) oxycodone 5 mg table t 1 - 2 tab PO Q4-6H PRN pain 07/27/18 07/27/18 (units unknown) (unknown) (unknown) (no date) (unknown) (unknown) oxycodone 5 mg tablet (units unknown) (unknown) (unknown) (no date) (unknown) (unknown) pelvic rock is negative, patient has device in the left lateral abdomen. (units unknown) (unknown) (unknown) (no date) (unknown) (unknown) penicillin G [PENICILLIN G] Allergy Unknown LEFT EAR Verified 07/27/18 10:10 (units unknown) (unknown) (unknown) (no date) (unknown) (unknown) phos are 8788 and 14 6 with a negative bilirubin and lipase of 109. EKG shows a (units unknown) (unknown) (unknown) (no date) (unknown) (unknown) povidone-iodine Allergy Unknown 'SKIN Verified 07/27/18 10:10 (units unknown) (unknown) (unknown) (no date) (unknown) (unknown) redirectable althoug h he keeps saying he wants to get out of the bed. He has (units unknown) (unknown) (unknown) (no date) (unknown) (unknown) right forearm that also appears little bit older. Patient was found on the (units unknown) (unknown) (unknown) (no date) (unknown) (unknown) septal hematoma, no dental or oral injury, airway is normal and with normal (units unknown) (unknown) (unknown) (no date) (unknown) (unknown) shellfish derived Allergy Unknown 'SKIN FELT Verified 07/27/18 10:10 (units unknown) (unknown) (unknown) (no date) (unknown) (unknown) sinus rhythm no acut e ST changes. Initial chest x-ray and pelvic x-ray is (units unknown) (unknown) (unknown) (no date) (unknown) (unknown) soap [From BETADINE] Allergy Unknown 'SKIN Verified 07/27/18 10:10 (units unknown) (unknown) (unknown) (no date) (unknown) (unknown) some blood at the scene in a different location. Patient had labs, imaging (units unknown) (unknown) (unknown) (no date) (unknown) (unknown) some broken glass, medics state the glass was cleaned up they did not see (units unknown) (unknown) (unknown) (no date) (unknown) (unknown) sounds are normal no crackles, wheezes or rales (units unknown) (unknown) (unknown) (no date) (unknown) (unknown) speech appears intoxicated but is conversant. (units unknown) (unknown) (unknown) (no date) (unknown) (unknown) superficial lack of the right forehead, he has some bruising of his anterior c (units unknown) (unknown) (unknown) (no date) (unknown) (unknown) tabs (units unknown) (unknown) (unknown) (no date) (unknown) (unknown) tendon exam, 2+ pulses in all four extremities (units unknown) (unknown) (unknown) (no date) (unknown) (unknown) that is bruising on his left abdomen is from injections but onto his chest and (units unknown) (unknown) (unknown) (no date) (unknown) (unknown) they were there the day before patient was not present at home but there was (units unknown) (unknown) (unknown) (no date) (unknown) (unknown) time. Patient does not recall what trauma occurred. The somewhat repetitive. (units unknown) (unknown) (unknown) (no date) (unknown) (unknown) trauma. (units unknown) (unknown) (unknown) (no date) (unknown) (unknown) upper abdomen she is unsure. Patient was found at home in the bathroom with (units unknown) (unknown) (unknown) (no date) (unknown) (unknown) what appears to be scabbed superficial laceration over his right forehead he has (units unknown) (unknown) (unknown) (no date) (unknown) (unknown) when he is registered. Patient is confused but follows commands he is (units unknown) (unknown) (unknown) (no date) (unknown) (unknown) without decubitus. Patient has ecchymosis that is about 4 cm on his anterior (units unknown) (unknown) Result panel 226 (unknown) (no date) (unknown) (unknown) Negative (units unknown) (unknown) (unknown) (no date) (unknown) (unknown) Normal (units unknown) (unknown) (unknown) (no date) (unknown) (unknown) Positive (units unknown) (unknown) Result panel 227 (unknown) (no date) (unknown) (unknown) 1.0 e.u./dl (unknown) (unknown) (no date) (unknown) (unknown) 1.010 (units unknown) (unknown) (unknown) (no date) (unknown) (unknown) 2 g/dl (unknown) (unknown) (no date) (unknown) (unknown) 6.5 (units unknown) (unknown) (unknown) (no date) (unknown) (unknown) CLEAR (units unknown) (unknown) (unknown) (no date) (unknown) (unknown) Cult Not Indicated (units unknown) (unknown) (unknown) (no date) (unknown) (unknown) Microscopic Normal (units unknown) (unknown) (unknown) (no date) (unknown) (unknown) NEGATIVE (units unknown) (unknown) (unknown) (no date) (unknown) (unknown) None Seen (units unknown) (unknown) (unknown) (no date) (unknown) (unknown) None Seen (units unknown) (unknown) (unknown) (no date) (unknown) (unknown) YELLOW (units unknown) (unknown) (unknown) (no date) (unknown) (unknown) YELLOW (units unknown) (unknown) Result panel 228 (unknown) (no date) (unknown) (unknown) Negative (units unknown) (unknown) (unknown) (no date) (unknown) (unknown) Negative (units unknown) (unknown) Result panel 229 (unknown) (no date) (unknown) (unknown) (no value) (units unknown) (unknown) (unknown) (no date) (unknown) (unknown) (U-100) Insulin) (units unknown) (unknown) (unknown) (no date) (unknown) (unknown) 0.4 mg PO DAILY (units unknown) (unknown) (unknown) (no date) (unknown) (unknown) [id number] (units unknown) (unknown) (unknown) (no date) (unknown) (unknown) 01/14/23 01/14/23 01/14/23 Range/Units (units unknown) (unknown) (unknown) (no date) (unknown) (unknown) 01/14/23 10:27 (units unknown) (unknown) (unknown) (no date) (unknown) (unknown) 01/14/23 10:29 (units unknown) (unknown) (unknown) (no date) (unknown) (unknown) 01/14/23 10:35 (units unknown) (unknown) (unknown) (no date) (unknown) (unknown) 01/14/23 10:45 (units unknown) (unknown) (unknown) (no date) (unknown) (unknown) 01/14/23 11:17 (units unknown) (unknown) (unknown) (no date) (unknown) (unknown) 01/14/23 11:23 (units unknown) (unknown) (unknown) (no date) (unknown) (unknown) 01/14/23 14:09 (units unknown) (unknown) (unknown) (no date) (unknown) (unknown) 01/14/23 15:25 (units unknown) (unknown) (unknown) (no date) (unknown) (unknown) 01/14/23 (units unknown) (unknown) (unknown) (no date) (unknown) (unknown) 100 mg PO DAILY (units unknown) (unknown) (unknown) (no date) (unknown) (unknown) 10:22 01/14/23 (units unknown) (unknown) (unknown) (no date) (unknown) (unknown) 10:25 01/14/23 (units unknown) (unknown) (unknown) (no date) (unknown) (unknown) 10:30 (units unknown) (unknown) (unknown) (no date) (unknown) (unknown) 10:32 01/14/23 (units unknown) (unknown) (unknown) (no date) (unknown) (unknown) 10:45 10:45 10:45 (units unknown) (unknown) (unknown) (no date) (unknown) (unknown) 10:45 11:23 13:48 (units unknown) (unknown) (unknown) (no date) (unknown) (unknown) 11:00 (units unknown) (unknown) (unknown) (no date) (unknown) (unknown) 11:24 01/14/23 (units unknown) (unknown) (unknown) (no date) (unknown) (unknown) 11:30 (units unknown) (unknown) (unknown) (no date) (unknown) (unknown) 11:31 01/14/23 (units unknown) (unknown) (unknown) (no date) (unknown) (unknown) 11:50 01/14/23 (units unknown) (unknown) (unknown) (no date) (unknown) (unknown) 11:50 (units unknown) (unknown) (unknown) (no date) (unknown) (unknown) 12:05 01/14/23 (units unknown) (unknown) (unknown) (no date) (unknown) (unknown) 12:05 (units unknown) (unknown) (unknown) (no date) (unknown) (unknown) 12:15 01/14/23 (units unknown) (unknown) (unknown) (no date) (unknown) (unknown) 12:30 01/14/23 (units unknown) (unknown) (unknown) (no date) (unknown) (unknown) 12:30 (units unknown) (unknown) (unknown) (no date) (unknown) (unknown) 12:45 01/14/23 (units unknown) (unknown) (unknown) (no date) (unknown) (unknown) 12:45 (units unknown) (unknown) (unknown) (no date) (unknown) (unknown) 13:00 01/14/23 (units unknown) (unknown) (unknown) (no date) (unknown) (unknown) 13:01 01/14/23 (units unknown) (unknown) (unknown) (no date) (unknown) (unknown) 13:01 (units unknown) (unknown) (unknown) (no date) (unknown) (unknown) 13:15 01/14/23 (units unknown) (unknown) (unknown) (no date) (unknown) (unknown) 13:30 01/14/23 (units unknown) (unknown) (unknown) (no date) (unknown) (unknown) 13:30 (units unknown) (unknown) (unknown) (no date) (unknown) (unknown) 13:49 01/14/23 (units unknown) (unknown) (unknown) (no date) (unknown) (unknown) 13:49 (units unknown) (unknown) (unknown) (no date) (unknown) (unknown) 14:00 01/14/23 (units unknown) (unknown) (unknown) (no date) (unknown) (unknown) 14:09 14:09 15:25 (units unknown) (unknown) (unknown) (no date) (unknown) (unknown) 14:26 01/14/23 (units unknown) (unknown) (unknown) (no date) (unknown) (unknown) 14:26 (units unknown) (unknown) (unknown) (no date) (unknown) (unknown) 14:30 01/14/23 (units unknown) (unknown) (unknown) (no date) (unknown) (unknown) 15:00 (units unknown) (unknown) (unknown) (no date) (unknown) (unknown) 15:02 01/14/23 (units unknown) (unknown) (unknown) (no date) (unknown) (unknown) 15:30 (units unknown) (unknown) (unknown) (no date) (unknown) (unknown) 16:00 01/14/23 (units unknown) (unknown) (unknown) (no date) (unknown) (unknown) 16:30 (units unknown) (unknown) (unknown) (no date) (unknown) (unknown) 20 mg PO BID (units unknown) (unknown) (unknown) (no date) (unknown) (unknown) 20 mg PO DAILY (units unknown) (unknown) (unknown) (no date) (unknown) (unknown) 20 unit SUBCUT BEDTIME (units unknown) (unknown) (unknown) (no date) (unknown) (unknown) 2016 white count of 4.3 normal platelets at 296. Coags are negative, renal (units unknown) (unknown) (unknown) (no date) (unknown) (unknown) 4 extremities moving , cranial nerves II through XII are intact, GCS is 15 (units unknown) (unknown) (unknown) (no date) (unknown) (unknown) 40 mg PO BEDTIME (units unknown) (unknown) (unknown) (no date) (unknown) (unknown) ABG/GI: Nontender, soft, normal bowel sounds, no distention, no organomegaly, (units unknown) (unknown) (unknown) (no date) (unknown) (unknown) ADMINISTER 2 TO 10 UNITS UNDER THE SKIN BEFORE MEALS AND AT BEDTIME (units unknown) (unknown) (unknown) (no date) (unknown) (unknown) ADMINISTER 20 UNITS UNDER THE SKIN EVERY EVENING (units unknown) (unknown) (unknown) (no date) (unknown) (unknown) AGE 12YR (units unknown) (unknown) (unknown) (no date) (unknown) (unknown) ALT (<50) IU/L (units unknown) (unknown) (unknown) (no date) (unknown) (unknown) ALT 88 H (<50) IU/L (units unknown) (unknown) (unknown) (no date) (unknown) (unknown) APTT (26-36) SECONDS (units unknown) (unknown) (unknown) (no date) (unknown) (unknown) APTT 34 (26-36) SECONDS (units unknown) (unknown) (unknown) (no date) (unknown) (unknown) AST (17-59) IU/L (units unknown) (unknown) (unknown) (no date) (unknown) (unknown) AST 87 H (17-59) IU/L (units unknown) (unknown) (unknown) (no date) (unknown) (unknown) Acetaminophen (Acetaminophen 325 Mg Tablet) 650 mg PO NOW ONE (units unknown) (unknown) (unknown) (no date) (unknown) (unknown) Age/Sex: 53 / M (units unknown) (unknown) (unknown) (no date) (unknown) (unknown) Albumin (3.5-5.0) g/dL (units unknown) (unknown) (unknown) (no date) (unknown) (unknown) Albumin 4.0 (3.5-5.0 ) g/dL (units unknown) (unknown) (unknown) (no date) (unknown) (unknown) Albumin/Globulin Ratio (1.0-2.8) (units unknown) (unknown) (unknown) (no date) (unknown) (unknown) Albumin/Globulin Ratio 1.3 (1.0-2.8) (units unknown) (unknown) (unknown) (no date) (unknown) (unknown) Alkaline Phosphatase (38-126) U/L (units unknown) (unknown) (unknown) (no date) (unknown) (unknown) Alkaline Phosphatase 146 H (38-126) U/L (units unknown) (unknown) (unknown) (no date) (unknown) (unknown) Allergies (units unknown) (unknown) (unknown) (no date) (unknown) (unknown) Allergy/AdvReac Type Severity Reaction Status Date / Time (units unknown) (unknown) (unknown) (no date) (unknown) (unknown) Antibody Screen Negative (units unknown) (unknown) (unknown) (no date) (unknown) (unknown) Antibody Screen (units unknown) (unknown) (unknown) (no date) (unknown) (unknown) Attestation: I personally reviewed and interpreted this ECG as follows: (units unknown) (unknown) (unknown) (no date) (unknown) (unknown) BACK: No CVA tenderness, no vertebral tenderness, no step-off's, no crepitus (units unknown) (unknown) (unknown) (no date) (unknown) (unknown) BUN (9-20) mg/dL (units unknown) (unknown) (unknown) (no date) (unknown) (unknown) BUN 8 L (9-20) mg/dL (units unknown) (unknown) (unknown) (no date) (unknown) (unknown) BUN/Creatinine Ratio (6-22) (units unknown) (unknown) (unknown) (no date) (unknown) (unknown) BUN/Creatinine Ratio 19.0 (6-22) (units unknown) (unknown) (unknown) (no date) (unknown) (unknown) BURNING' (units unknown) (unknown) (unknown) (no date) (unknown) (unknown) Baso # (Auto) (0-100 ) /uL (units unknown) (unknown) (unknown) (no date) (unknown) (unknown) Baso # (Auto) 100 (0-100) /uL (units unknown) (unknown) (unknown) (no date) (unknown) (unknown) Baso % (Auto) (0-2) % (units unknown) (unknown) (unknown) (no date) (unknown) (unknown) Baso % (Auto) 1.4 (0-2) % (units unknown) (unknown) (unknown) (no date) (unknown) (unknown) Benadryl and Solu-Medrol as he was felt stable. CT imaging of the brain shows (units unknown) (unknown) (unknown) (no date) (unknown) (unknown) Blood Pressure 133/9 2 H (units unknown) (unknown) (unknown) (no date) (unknown) (unknown) Blood Pressure 135/8 8 144/96 H (units unknown) (unknown) (unknown) (no date) (unknown) (unknown) Blood Pressure 137/7 2 106/52 L (units unknown) (unknown) (unknown) (no date) (unknown) (unknown) Blood Pressure 146/8 2 H (units unknown) (unknown) (unknown) (no date) (unknown) (unknown) Blood Pressure 146/9 0 H (units unknown) (unknown) (unknown) (no date) (unknown) (unknown) Blood Pressure 148/9 1 H 137/84 (units unknown) (unknown) (unknown) (no date) (unknown) (unknown) Blood Pressure 149/9 4 H 01/14/23 10:22 (units unknown) (unknown) (unknown) (no date) (unknown) (unknown) Blood Pressure 149/9 4 H (units unknown) (unknown) (unknown) (no date) (unknown) (unknown) Blood Pressure 151/8 7 H (units unknown) (unknown) (unknown) (no date) (unknown) (unknown) Blood Pressure 155/9 7 H (units unknown) (unknown) (unknown) (no date) (unknown) (unknown) Blood Pressure 160/9 7 H (units unknown) (unknown) (unknown) (no date) (unknown) (unknown) Blood Pressure 163/8 8 H (units unknown) (unknown) (unknown) (no date) (unknown) (unknown) Blood Pressure 164/106 H 141/98 H (units unknown) (unknown) (unknown) (no date) (unknown) (unknown) Blood Pressure 172/8 8 H (units unknown) (unknown) (unknown) (no date) (unknown) (unknown) Blood Pressure 181/9 5 H (units unknown) (unknown) (unknown) (no date) (unknown) (unknown) Blood Pressure (units unknown) (unknown) (unknown) (no date) (unknown) (unknown) Blood Type O Positive (units unknown) (unknown) (unknown) (no date) (unknown) (unknown) Blood Type (units unknown) (unknown) (unknown) (no date) (unknown) (unknown) COVID19 -Nasal RAPID Stat (units unknown) (unknown) (unknown) (no date) (unknown) (unknown) CT cervical spine wo con Stat (units unknown) (unknown) (unknown) (no date) (unknown) (unknown) CT chest abd pel w con Stat (units unknown) (unknown) (unknown) (no date) (unknown) (unknown) CT head/brain wo con Stat (units unknown) (unknown) (unknown) (no date) (unknown) (unknown) CVS: Heart sounds ar e normal, no murmur noted, No JVD. (units unknown) (unknown) (unknown) (no date) (unknown) (unknown) Calcium (8.4-10.2) mg/dL (units unknown) (unknown) (unknown) (no date) (unknown) (unknown) Calcium 8.5 (8.4-10.2) mg/dL (units unknown) (unknown) (unknown) (no date) (unknown) (unknown) Carbon Dioxide (22-32) mmol/L (units unknown) (unknown) (unknown) (no date) (unknown) (unknown) Carbon Dioxide 30 (22-32) mmol/L (units unknown) (unknown) (unknown) (no date) (unknown) (unknown) Chief Complaint: Trauma (units unknown) (unknown) (unknown) (no date) (unknown) (unknown) Chloride (98-107) mmol/L (units unknown) (unknown) (unknown) (no date) (unknown) (unknown) Chloride 100 (98-107 ) mmol/L (units unknown) (unknown) (unknown) (no date) (unknown) (unknown) Chronic low back pain (units unknown) (unknown) (unknown) (no date) (unknown) (unknown) Clinical Impression: (units unknown) (unknown) (unknown) (no date) (unknown) (unknown) Complete Blood Count AUTO DIFF Stat (units unknown) (unknown) (unknown) (no date) (unknown) (unknown) Comprehensive Metabolic Panel Stat (units unknown) (unknown) (unknown) (no date) (unknown) (unknown) Consult to [facility] [place] - 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 (units unknown) (unknown) (unknown) (no date) (unknown) (unknown) Course (units unknown) (unknown) (unknown) (no date) (unknown) (unknown) Creatinine (0.66-1.25) mg/dL (units unknown) (unknown) (unknown) (no date) (unknown) (unknown) Creatinine 0.42 L (0.66-1.25) mg/dL (units unknown) (unknown) (unknown) (no date) (unknown) (unknown) : 1970 Acct:[id number] (units unknown) (unknown) (unknown) (no date) (unknown) (unknown) Date of Service: 01/14/23 (units unknown) (unknown) (unknown) (no date) (unknown) (unknown) Departure (units unknown) (unknown) (unknown) (no date) (unknown) (unknown) Diphenhydramine HCl (Diphenhydramine 50 Mg/Ml Vial) 50 mg IV NOW ONE (units unknown) (unknown) (unknown) (no date) (unknown) (unknown) Diphtheria/Tetanus/A c ell Pertussis (Tet,Diph,Pertuss(Isaias ll),Vac/Pf 0.5 Ml (units unknown) (unknown) (unknown) (no date) (unknown) (unknown) Discharge Plan (units unknown) (unknown) (unknown) (no date) (unknown) (unknown) Discontinued Medications (units unknown) (unknown) (unknown) (no date) (unknown) (unknown) Documented By: AT (units unknown) (unknown) (unknown) (no date) (unknown) (unknown) Documented By: KB (units unknown) (unknown) (unknown) (no date) (unknown) (unknown) ECG Data (units unknown) (unknown) (unknown) (no date) (unknown) (unknown) ED Orders (units unknown) (unknown) (unknown) (no date) (unknown) (unknown) EKG-12 Lead Stat (units unknown) (unknown) (unknown) (no date) (unknown) (unknown) ENT: Patient has superficial scabbed laceration over his right brow, does not (units unknown) (unknown) (unknown) (no date) (unknown) (unknown) ER Physician: Bridgett Garrido D.O. (units unknown) (unknown) (unknown) (no date) (unknown) (unknown) EXT: Atraumatic othe r than skin changes. hips are nontender, no pedal edema, (units unknown) (unknown) (unknown) (no date) (unknown) (unknown) EYES: PERRLA, EOMI (units unknown) (unknown) (unknown) (no date) (unknown) (unknown) Emergency Report (units unknown) (unknown) (unknown) (no date) (unknown) (unknown) Eos # (Auto) (0-450) /uL (units unknown) (unknown) (unknown) (no date) (unknown) (unknown) Eos # (Auto) 100 (0-450) /uL (units unknown) (unknown) (unknown) (no date) (unknown) (unknown) Eos % (Auto) (2-4) % (units unknown) (unknown) (unknown) (no date) (unknown) (unknown) Eos % (Auto) 2.2 (2-4) % (units unknown) (unknown) (unknown) (no date) (unknown) (unknown) Estimated GFR > 60 (>60) mL/min (units unknown) (unknown) (unknown) (no date) (unknown) (unknown) Estimated GFR (>60) mL/min (units unknown) (unknown) (unknown) (no date) (unknown) (unknown) Ethanol (ETOH) Stat (units unknown) (unknown) (unknown) (no date) (unknown) (unknown) Ethyl Alcohol ( - 10 ) mg/dL (units unknown) (unknown) (unknown) (no date) (unknown) (unknown) Ethyl Alcohol 308 H ( - 10) mg/dL (units unknown) (unknown) (unknown) (no date) (unknown) (unknown) Exam (units unknown) (unknown) (unknown) (no date) (unknown) (unknown) FEELS LIKE (units unknown) (unknown) (unknown) (no date) (unknown) (unknown) GEN: C-collar was placed by EMS in the field but patient would not keep it on. (units unknown) (unknown) (unknown) (no date) (unknown) (unknown) General (units unknown) (unknown) (unknown) (no date) (unknown) (unknown) Globulin (1.7-4.1) g/dL (units unknown) (unknown) (unknown) (no date) (unknown) (unknown) Globulin 3.2 (1.7-4.1) g/dL (units unknown) (unknown) (unknown) (no date) (unknown) (unknown) Glucose (70-100) mg/dL (units unknown) (unknown) (unknown) (no date) (unknown) (unknown) Glucose 254 H (70-100) mg/dL (units unknown) (unknown) (unknown) (no date) (unknown) (unknown) Glucose POC 268 (units unknown) (unknown) (unknown) (no date) (unknown) (unknown) HEAD: No evidence of trauma, no raccoon/Johnson sign. (units unknown) (unknown) (unknown) (no date) (unknown) (unknown) HEARING (units unknown) (unknown) (unknown) (no date) (unknown) (unknown) HPI - Trauma (units unknown) (unknown) (unknown) (no date) (unknown) (unknown) HPI narrative: (units unknown) (unknown) (unknown) (no date) (unknown) (unknown) Hct (41-53) % (units unknown) (unknown) (unknown) (no date) (unknown) (unknown) Hct 36.9 L (41-53) % (units unknown) (unknown) (unknown) (no date) (unknown) (unknown) Hgb (13.5-17.5) g/dL (units unknown) (unknown) (unknown) (no date) (unknown) (unknown) Hgb 12.3 L (13.5-17.5) g/dL (units unknown) (unknown) (unknown) (no date) (unknown) (unknown) History of Present Illness (units unknown) (unknown) (unknown) (no date) (unknown) (unknown) Home Medications (units unknown) (unknown) (unknown) (no date) (unknown) (unknown) INR (0.9-1.3) (units unknown) (unknown) (unknown) (no date) (unknown) (unknown) INR 1.0 (0.9-1.3) (units unknown) (unknown) (unknown) (no date) (unknown) (unknown) Initial Vital Signs (units unknown) (unknown) (unknown) (no date) (unknown) (unknown) Initial Vital Signs: (units unknown) (unknown) (unknown) (no date) (unknown) (unknown) Interpretation: (units unknown) (unknown) (unknown) (no date) (unknown) (unknown) [address] [address] (units unknown) (unknown) (unknown) (no date) (unknown) (unknown) LOSS AT (units unknown) (unknown) (unknown) (no date) (unknown) (unknown) Lab Data (units unknown) (unknown) (unknown) (no date) (unknown) (unknown) Lab Results (units unknown) (unknown) (unknown) (no date) (unknown) (unknown) Labs show an ETOH of 308, patient has a hemoglobin of 12 baseline compared to (units unknown) (unknown) (unknown) (no date) (unknown) (unknown) Labs: (units unknown) (unknown) (unknown) (no date) (unknown) (unknown) Lactate (0.7-2.1) mmol/L (units unknown) (unknown) (unknown) (no date) (unknown) (unknown) Lactate (Lactic Acid ) Stat (units unknown) (unknown) (unknown) (no date) (unknown) (unknown) Lactate 2.1 1.9 (0.7-2.1) mmol/L (units unknown) (unknown) (unknown) (no date) (unknown) (unknown) Last Admin: 01/14/23 10:42 Dose: 0.5 mg (units unknown) (unknown) (unknown) (no date) (unknown) (unknown) Last Admin: 01/14/23 11:11 Dose: 50 mg (units unknown) (unknown) (unknown) (no date) (unknown) (unknown) Last Admin: 01/14/23 11:12 Dose: 125 mg (units unknown) (unknown) (unknown) (no date) (unknown) (unknown) Last Admin: 01/14/23 14:28 Dose: 260 mg (units unknown) (unknown) (unknown) (no date) (unknown) (unknown) Last Admin: 01/14/23 14:29 Dose: 650 mg (units unknown) (unknown) (unknown) (no date) (unknown) (unknown) Last Admin: 01/14/23 15:09 Dose: 0.5 ml (units unknown) (unknown) (unknown) (no date) (unknown) (unknown) Limitations: no limitations (units unknown) (unknown) (unknown) (no date) (unknown) (unknown) Lipase (23-300) U/L (units unknown) (unknown) (unknown) (no date) (unknown) (unknown) Lipase 109 (23-300) U/L (units unknown) (unknown) (unknown) (no date) (unknown) (unknown) Lipase Stat (units unknown) (unknown) (unknown) (no date) (unknown) (unknown) Lorazepam (Lorazepam 2 Mg/Ml Inj) 0.5 mg IV NOW ONE (units unknown) (unknown) (unknown) (no date) (unknown) (unknown) Lorazepam (Lorazepam 2 Mg/Ml Inj) 0.5 mg IV Q2HR PRN (units unknown) (unknown) (unknown) (no date) (unknown) (unknown) Lymph # (Auto) (9937-6011) /uL (units unknown) (unknown) (unknown) (no date) (unknown) (unknown) Lymph # (Auto) 1700 (2607-2642) /uL (units unknown) (unknown) (unknown) (no date) (unknown) (unknown) Lymph % (Auto) (25-40) % (units unknown) (unknown) (unknown) (no date) (unknown) (unknown) Lymph % (Auto) 39.1 (25-40) % (units unknown) (unknown) (unknown) (no date) (unknown) (unknown) MCH (26-34) PG (units unknown) (unknown) (unknown) (no date) (unknown) (unknown) MCH 32.5 (26-34) PG (units unknown) (unknown) (unknown) (no date) (unknown) (unknown) MCHC (30-36) % (units unknown) (unknown) (unknown) (no date) (unknown) (unknown) MCHC 33.5 (30-36) % (units unknown) (unknown) (unknown) (no date) (unknown) (unknown) MCV (80-100) fL (units unknown) (unknown) (unknown) (no date) (unknown) (unknown) MCV 97.1 (80-100) fL (units unknown) (unknown) (unknown) (no date) (unknown) (unknown) MDM - Trauma (units unknown) (unknown) (unknown) (no date) (unknown) (unknown) MDM Narrative (units unknown) (unknown) (unknown) (no date) (unknown) (unknown) Medical History (Updated 01/14/23 @ 16:59 by Bridgett Garrido DO) (units unknown) (unknown) (unknown) (no date) (unknown) (unknown) Medical decision making narrative: (units unknown) (unknown) (unknown) (no date) (unknown) (unknown) Medication Instructions Recorded Confirmed (units unknown) (unknown) (unknown) (no date) (unknown) (unknown) Methylprednisolone (Methylprednisolone 125 Mg/2 Ml Vial) 125 mg IV NOW ONE (units unknown) (unknown) (unknown) (no date) (unknown) (unknown) Micro UA Comment Microscopic normal (units unknown) (unknown) (unknown) (no date) (unknown) (unknown) Micro UA Comment (units unknown) (unknown) (unknown) (no date) (unknown) (unknown) Mode of arrival: EMS (units unknown) (unknown) (unknown) (no date) (unknown) (unknown) [place] # (Auto) (0-900 ) /uL (units unknown) (unknown) (unknown) (no date) (unknown) (unknown) [place] # (Auto) 600 (0-900) /uL (units unknown) (unknown) (unknown) (no date) (unknown) (unknown) [place] % (Auto) (3-14) % (units unknown) (unknown) (unknown) (no date) (unknown) (unknown) [place] % (Auto) 14.9 H (3-14) % (units unknown) (unknown) (unknown) (no date) (unknown) (unknown) NECK: Nontender, painless range of motion, trachea midline (units unknown) (unknown) (unknown) (no date) (unknown) (unknown) NEURO: Oriented AOx3 , neuro is grossly intact, sensation and motor is normal all (units unknown) (unknown) (unknown) (no date) (unknown) (unknown) Narrative: (units unknown) (unknown) (unknown) (no date) (unknown) (unknown) Neut # (Auto) (7226-2325) /uL (units unknown) (unknown) (unknown) (no date) (unknown) (unknown) Neut # (Auto) 1800 (1732-6376) /uL (units unknown) (unknown) (unknown) (no date) (unknown) (unknown) Neut % (Auto) (50-75 ) % (units unknown) (unknown) (unknown) (no date) (unknown) (unknown) Neut % (Auto) 42.4 L (50-75) % (units unknown) (unknown) (unknown) (no date) (unknown) (unknown) No Action (units unknown) (unknown) (unknown) (no date) (unknown) (unknown) Nontender, incisions healed. (units unknown) (unknown) (unknown) (no date) (unknown) (unknown) Ordered: (units unknown) (unknown) (unknown) (no date) (unknown) (unknown) Orders (units unknown) (unknown) (unknown) (no date) (unknown) (unknown) Oxygen Delivery Method Room Air 01/14/23 10:22 (units unknown) (unknown) (unknown) (no date) (unknown) (unknown) Oxygen Delivery Method Room Air Room Air (units unknown) (unknown) (unknown) (no date) (unknown) (unknown) Oxygen Delivery Method Room Air (units unknown) (unknown) (unknown) (no date) (unknown) (unknown) Oxygen Delivery Method (units unknown) (unknown) (unknown) (no date) (unknown) (unknown) PRN Reason: Anxiety (units unknown) (unknown) (unknown) (no date) (unknown) (unknown) PSYCH: Normal mood and affect (units unknown) (unknown) (unknown) (no date) (unknown) (unknown) PT (10.1-12.7) SECONDS (units unknown) (unknown) (unknown) (no date) (unknown) (unknown) PT 11.2 (10.1-12.7) SECONDS (units unknown) (unknown) (unknown) (no date) (unknown) (unknown) PTT Partial Thromboplastin Rodolfo Stat (units unknown) (unknown) (unknown) (no date) (unknown) (unknown) Patient Comments: (units unknown) (unknown) (unknown) (no date) (unknown) (unknown) Patient History (units unknown) (unknown) (unknown) (no date) (unknown) (unknown) Patient appears in moderate distress. Patient is confused has slightly slurred (units unknown) (unknown) (unknown) (no date) (unknown) (unknown) Patient denies pain, no shortness of breath, no GI or urinary symptoms. He is (units unknown) (unknown) (unknown) (no date) (unknown) (unknown) Patient had Solu-Medrol methylprednisolone for pretreatment for CT, he had (units unknown) (unknown) (unknown) (no date) (unknown) (unknown) Patient: Sj Romo MR#: [id number] (units unknown) (unknown) (unknown) (no date) (unknown) (unknown) Phenobarbital (Phenobarbital 65 Mg/Ml Vial) 260 mg IV NOW ONE (units unknown) (unknown) (unknown) (no date) (unknown) (unknown) Plt Count (150-400) X103/uL (units unknown) (unknown) (unknown) (no date) (unknown) (unknown) Plt Count 296 (150-400) X103/uL (units unknown) (unknown) (unknown) (no date) (unknown) (unknown) Point of Care Testing (units unknown) (unknown) (unknown) (no date) (unknown) (unknown) Positive Nexus criteria, there is no midline line tenderness, distracting (units unknown) (unknown) (unknown) (no date) (unknown) (unknown) Potassium (3.4-5.1) mmol/L (units unknown) (unknown) (unknown) (no date) (unknown) (unknown) Potassium 3.9 (3.4-5.1) mmol/L (units unknown) (unknown) (unknown) (no date) (unknown) (unknown) Prescriptions: (units unknown) (unknown) (unknown) (no date) (unknown) (unknown) Prothrombin Time INR Stat (units unknown) (unknown) (unknown) (no date) (unknown) (unknown) Pulse Oximetry 93 93 (units unknown) (unknown) (unknown) (no date) (unknown) (unknown) Pulse Oximetry 93 95 (units unknown) (unknown) (unknown) (no date) (unknown) (unknown) Pulse Oximetry 93 (units unknown) (unknown) (unknown) (no date) (unknown) (unknown) Pulse Oximetry 94 91 (units unknown) (unknown) (unknown) (no date) (unknown) (unknown) Pulse Oximetry 94 96 (units unknown) (unknown) (unknown) (no date) (unknown) (unknown) Pulse Oximetry 94 (units unknown) (unknown) (unknown) (no date) (unknown) (unknown) Pulse Oximetry 95 94 (units unknown) (unknown) (unknown) (no date) (unknown) (unknown) Pulse Oximetry 95 97 (units unknown) (unknown) (unknown) (no date) (unknown) (unknown) Pulse Oximetry 95 (units unknown) (unknown) (unknown) (no date) (unknown) (unknown) Pulse Oximetry 96 (units unknown) (unknown) (unknown) (no date) (unknown) (unknown) Pulse Oximetry 97 96 (units unknown) (unknown) (unknown) (no date) (unknown) (unknown) Pulse Oximetry 97 (units unknown) (unknown) (unknown) (no date) (unknown) (unknown) Pulse Oximetry 99 01/14/23 10:22 (units unknown) (unknown) (unknown) (no date) (unknown) (unknown) Pulse Oximetry 99 96 97 (units unknown) (unknown) (unknown) (no date) (unknown) (unknown) Pulse Rate 74 72 (units unknown) (unknown) (unknown) (no date) (unknown) (unknown) Pulse Rate 74 (units unknown) (unknown) (unknown) (no date) (unknown) (unknown) Pulse Rate 75 76 (units unknown) (unknown) (unknown) (no date) (unknown) (unknown) Pulse Rate 76 82 (units unknown) (unknown) (unknown) (no date) (unknown) (unknown) Pulse Rate 78 80 (units unknown) (unknown) (unknown) (no date) (unknown) (unknown) Pulse Rate 80 79 (units unknown) (unknown) (unknown) (no date) (unknown) (unknown) Pulse Rate 80 (units unknown) (unknown) (unknown) (no date) (unknown) (unknown) Pulse Rate 81 (units unknown) (unknown) (unknown) (no date) (unknown) (unknown) Pulse Rate 85 (units unknown) (unknown) (unknown) (no date) (unknown) (unknown) Pulse Rate 87 87 (units unknown) (unknown) (unknown) (no date) (unknown) (unknown) Pulse Rate 95 H 01/14/23 10:22 (units unknown) (unknown) (unknown) (no date) (unknown) (unknown) Pulse Rate 95 H 94 H 87 (units unknown) (unknown) (unknown) (no date) (unknown) (unknown) Pulse Rate 96 H 83 (units unknown) (unknown) (unknown) (no date) (unknown) (unknown) Pulse Rate 97 H 97 H (units unknown) (unknown) (unknown) (no date) (unknown) (unknown) RBC (4.5-5.9) X106/uL (units unknown) (unknown) (unknown) (no date) (unknown) (unknown) RBC 3.80 L (4.5-5.9) X106/uL (units unknown) (unknown) (unknown) (no date) (unknown) (unknown) RDW (11.6-14.8) % (units unknown) (unknown) (unknown) (no date) (unknown) (unknown) RDW 13.2 (11.6-14.8) % (units unknown) (unknown) (unknown) (no date) (unknown) (unknown) RESP: Chest is nontender and has symmetric movement, no ecchymosis, breath (units unknown) (unknown) (unknown) (no date) (unknown) (unknown) Related Data (units unknown) (unknown) (unknown) (no date) (unknown) (unknown) Respiratory Rate 10 L (units unknown) (unknown) (unknown) (no date) (unknown) (unknown) Respiratory Rate 13 11 L (units unknown) (unknown) (unknown) (no date) (unknown) (unknown) Respiratory Rate 13 (units unknown) (unknown) (unknown) (no date) (unknown) (unknown) Respiratory Rate 14 14 (units unknown) (unknown) (unknown) (no date) (unknown) (unknown) Respiratory Rate 14 (units unknown) (unknown) (unknown) (no date) (unknown) (unknown) Respiratory Rate 15 (units unknown) (unknown) (unknown) (no date) (unknown) (unknown) Respiratory Rate 18 01/14/23 10:22 (units unknown) (unknown) (unknown) (no date) (unknown) (unknown) Respiratory Rate 18 12 14 (units unknown) (unknown) (unknown) (no date) (unknown) (unknown) Respiratory Rate 19 (units unknown) (unknown) (unknown) (no date) (unknown) (unknown) Respiratory Rate 20 (units unknown) (unknown) (unknown) (no date) (unknown) (unknown) Respiratory Rate 8 L (units unknown) (unknown) (unknown) (no date) (unknown) (unknown) Respiratory Rate (units unknown) (unknown) (unknown) (no date) (unknown) (unknown) Review of Systems (units unknown) (unknown) (unknown) (no date) (unknown) (unknown) Rx Instructions: (units unknown) (unknown) (unknown) (no date) (unknown) (unknown) SARS-CoV-2 (PCR) (Negative) (units unknown) (unknown) (unknown) (no date) (unknown) (unknown) SARS-CoV-2 (PCR) Negative (Negative) (units unknown) (unknown) (unknown) (no date) (unknown) (unknown) SKIN: Patient has a small 2 cm burn on his right forearm that has blistered and (units unknown) (unknown) (unknown) (no date) (unknown) (unknown) See Rx Instructions .ROUTE .COMPLEX (units unknown) (unknown) (unknown) (no date) (unknown) (unknown) Signed By: (units unknown) (unknown) (unknown) (no date) (unknown) (unknown) Smoking Status: [place] r smoker (units unknown) (unknown) (unknown) (no date) (unknown) (unknown) Social History (units unknown) (unknown) (unknown) (no date) (unknown) (unknown) Sodium (137-145) mmol/L (units unknown) (unknown) (unknown) (no date) (unknown) (unknown) Sodium 140 (137-145) mmol/L (units unknown) (unknown) (unknown) (no date) (unknown) (unknown) Solostar U-100 Insulin) (units unknown) (unknown) (unknown) (no date) (unknown) (unknown) Source: patient, EMS , RN notes reviewed and old records reviewed (units unknown) (unknown) (unknown) (no date) (unknown) (unknown) Stated Complaint: Trauma (units unknown) (unknown) (unknown) (no date) (unknown) (unknown) Stop: 01/14/23 10:27 (units unknown) (unknown) (unknown) (no date) (unknown) (unknown) Stop: 01/14/23 10:29 (units unknown) (unknown) (unknown) (no date) (unknown) (unknown) Stop: 01/14/23 10:58 (units unknown) (unknown) (unknown) (no date) (unknown) (unknown) Stop: 01/14/23 13:43 (units unknown) (unknown) (unknown) (no date) (unknown) (unknown) Stop: 01/14/23 14:19 (units unknown) (unknown) (unknown) (no date) (unknown) (unknown) Substance Use Type: does not use (units unknown) (unknown) (unknown) (no date) (unknown) (unknown) Suicidal ideation, Alcohol abuse, Facial laceration (units unknown) (unknown) (unknown) (no date) (unknown) (unknown) Syringe) 0.5 ml IM .ONCE ONE (units unknown) (unknown) (unknown) (no date) (unknown) (unknown) TAKE 1 CAPSULE BY MOUTH DAILY (units unknown) (unknown) (unknown) (no date) (unknown) (unknown) TAKE 1 TABLET BY MOUTH EVERY EVENING (units unknown) (unknown) (unknown) (no date) (unknown) (unknown) TAKE 1 TABLET BY MOUTH EVERY MORNING (units unknown) (unknown) (unknown) (no date) (unknown) (unknown) Take 1 tablet by mouth twice a day (units unknown) (unknown) (unknown) (no date) (unknown) (unknown) Temperature 97.4 F L 01/14/23 10:22 (units unknown) (unknown) (unknown) (no date) (unknown) (unknown) Temperature 97.4 F L (units unknown) (unknown) (unknown) (no date) (unknown) (unknown) Temperature (units unknown) (unknown) (unknown) (no date) (unknown) (unknown) They also note that they were called out for a wellness check yesterday they (units unknown) (unknown) (unknown) (no date) (unknown) (unknown) This is a 53-year-ol d male who appears intoxicated, he does have scabbing with a (units unknown) (unknown) (unknown) (no date) (unknown) (unknown) This is a 53-year-ol d male with known history of alcohol abuse, insulin (units unknown) (unknown) (unknown) (no date) (unknown) (unknown) Time Seen by Provider: 01/14/23 10:26 (units unknown) (unknown) (unknown) (no date) (unknown) (unknown) To sleep sinus rhyth m rate of 72 OH 130 QRS of 98 QTC [address]. No acute ST (units unknown) (unknown) (unknown) (no date) (unknown) (unknown) Total Bilirubin (0.2-1.3) mg/dL (units unknown) (unknown) (unknown) (no date) (unknown) (unknown) Total Bilirubin 0.4 (0.2-1.3) mg/dL (units unknown) (unknown) (unknown) (no date) (unknown) (unknown) Total Protein (6.3-8.2) g/dL (units unknown) (unknown) (unknown) (no date) (unknown) (unknown) Total Protein 7.2 (6.3-8.2) g/dL (units unknown) (unknown) (unknown) (no date) (unknown) (unknown) Tylenol her headache and phenobarb 260 for alcohol withdrawal patient has not (units unknown) (unknown) (unknown) (no date) (unknown) (unknown) Type and Screen Stat (units unknown) (unknown) (unknown) (no date) (unknown) (unknown) U Benzodiazepines Scrn (Negative) (units unknown) (unknown) (unknown) (no date) (unknown) (unknown) U Benzodiazepines Scrn Positive H (Negative) (units unknown) (unknown) (unknown) (no date) (unknown) (unknown) U Marijuana (THC) Screen (Negative) (units unknown) (unknown) (unknown) (no date) (unknown) (unknown) U Marijuana (THC) Screen Negative (Negative) (units unknown) (unknown) (unknown) (no date) (unknown) (unknown) U Methamphetamines Scrn (Negative) (units unknown) (unknown) (unknown) (no date) (unknown) (unknown) U Methamphetamines Scrn Negative (Negative) (units unknown) (unknown) (unknown) (no date) (unknown) (unknown) U Opiates 300ng/mL cut (Negative) (units unknown) (unknown) (unknown) (no date) (unknown) (unknown) U Opiates 300ng/mL cut Positive H (Negative) (units unknown) (unknown) (unknown) (no date) (unknown) (unknown) U Tricyclic Antidepress (Negative) (units unknown) (unknown) (unknown) (no date) (unknown) (unknown) U Tricyclic Antidepress Negative (Negative) (units unknown) (unknown) (unknown) (no date) (unknown) (unknown) Ur Amphetamines Screen (Negative) (units unknown) (unknown) (unknown) (no date) (unknown) (unknown) Ur Amphetamines Screen Negative (Negative) (units unknown) (unknown) (unknown) (no date) (unknown) (unknown) Ur Barbiturates Screen (Negative) (units unknown) (unknown) (unknown) (no date) (unknown) (unknown) Ur Barbiturates Screen Negative (Negative) (units unknown) (unknown) (unknown) (no date) (unknown) (unknown) Ur Culture Indicated ? Cult not indicated (units unknown) (unknown) (unknown) (no date) (unknown) (unknown) Ur Culture Indicated? (units unknown) (unknown) (unknown) (no date) (unknown) (unknown) Ur Leukocyte [place]steras e (NEGATIVE) (units unknown) (unknown) (unknown) (no date) (unknown) (unknown) Ur Leukocyte Esteras e Negative (NEGATIVE) (units unknown) (unknown) (unknown) (no date) (unknown) (unknown) Ur MDMA Scrn (Ecstasy) (Negative) (units unknown) (unknown) (unknown) (no date) (unknown) (unknown) Ur MDMA Scrn (Ecstasy) Negative (Negative) (units unknown) (unknown) (unknown) (no date) (unknown) (unknown) Ur Oxycodone Screen (Negative) (units unknown) (unknown) (unknown) (no date) (unknown) (unknown) Ur Oxycodone Screen Negative (Negative) (units unknown) (unknown) (unknown) (no date) (unknown) (unknown) Ur Phencyclidine Scr n (Negative) (units unknown) (unknown) (unknown) (no date) (unknown) (unknown) Ur Phencyclidine Scr n Negative (Negative) (units unknown) (unknown) (unknown) (no date) (unknown) (unknown) Ur Specific [place] (1.000-1.035) (units unknown) (unknown) (unknown) (no date) (unknown) (unknown) Ur Specific [place] 1.010 (1.000-1.035) (units unknown) (unknown) (unknown) (no date) (unknown) (unknown) Urinalysis and Microscopic Stat (units unknown) (unknown) (unknown) (no date) (unknown) (unknown) Urine Appearance Clear (units unknown) (unknown) (unknown) (no date) (unknown) (unknown) Urine Appearance (units unknown) (unknown) (unknown) (no date) (unknown) (unknown) Urine Bacteria (None) (units unknown) (unknown) (unknown) (no date) (unknown) (unknown) Urine Bacteria None seen (None) (units unknown) (unknown) (unknown) (no date) (unknown) (unknown) Urine Bilirubin (NEGATIVE) (units unknown) (unknown) (unknown) (no date) (unknown) (unknown) Urine Bilirubin Negative (NEGATIVE) (units unknown) (unknown) (unknown) (no date) (unknown) (unknown) Urine Cocaine Screen (Negative) (units unknown) (unknown) (unknown) (no date) (unknown) (unknown) Urine Cocaine Screen Negative (Negative) (units unknown) (unknown) (unknown) (no date) (unknown) (unknown) Urine Color Yellow (units unknown) (unknown) (unknown) (no date) (unknown) (unknown) Urine Color (units unknown) (unknown) (unknown) (no date) (unknown) (unknown) Urine Drug Screen, Rapid Stat (units unknown) (unknown) (unknown) (no date) (unknown) (unknown) Urine Glucose (UA) (Negative) g/dL (units unknown) (unknown) (unknown) (no date) (unknown) (unknown) Urine Glucose (UA) 2 + H (Negative) g/dL (units unknown) (unknown) (unknown) (no date) (unknown) (unknown) Urine Ketones (NEGATIVE) (units unknown) (unknown) (unknown) (no date) (unknown) (unknown) Urine Ketones Negative (NEGATIVE) (units unknown) (unknown) (unknown) (no date) (unknown) (unknown) Urine Methadone Screen (Negative) (units unknown) (unknown) (unknown) (no date) (unknown) (unknown) Urine Methadone Screen Negative (Negative) (units unknown) (unknown) (unknown) (no date) (unknown) (unknown) Urine Nitrate (Negative) (units unknown) (unknown) (unknown) (no date) (unknown) (unknown) Urine Nitrate Negative (Negative) (units unknown) (unknown) (unknown) (no date) (unknown) (unknown) Urine Occult Blood (Negative) (units unknown) (unknown) (unknown) (no date) (unknown) (unknown) Urine Occult Blood Negative (Negative) (units unknown) (unknown) (unknown) (no date) (unknown) (unknown) Urine Protein (Negative) (units unknown) (unknown) (unknown) (no date) (unknown) (unknown) Urine Protein Negative (Negative) (units unknown) (unknown) (unknown) (no date) (unknown) (unknown) Urine RBC (0-5/HPF) (units unknown) (unknown) (unknown) (no date) (unknown) (unknown) Urine RBC None seen (0-5/HPF) (units unknown) (unknown) (unknown) (no date) (unknown) (unknown) Urine Urobilinogen (0.2) E.U./dL (units unknown) (unknown) (unknown) (no date) (unknown) (unknown) Urine Urobilinogen 1.0 (0.2) E.U./dL (units unknown) (unknown) (unknown) (no date) (unknown) (unknown) Urine WBC (0-5/HPF) (units unknown) (unknown) (unknown) (no date) (unknown) (unknown) Urine WBC None seen (0-5/HPF) (units unknown) (unknown) (unknown) (no date) (unknown) (unknown) Urine pH (4.5-8.0) (units unknown) (unknown) (unknown) (no date) (unknown) (unknown) Urine pH 6.5 (4.5-8.0) (units unknown) (unknown) (unknown) (no date) (unknown) (unknown) Vital Signs - 8 hr (units unknown) (unknown) (unknown) (no date) (unknown) (unknown) Vital Signs (units unknown) (unknown) (unknown) (no date) (unknown) (unknown) Vital signs: (units unknown) (unknown) (unknown) (no date) (unknown) (unknown) WAS (units unknown) (unknown) (unknown) (no date) (unknown) (unknown) WBC (4.5-11.0) X103/uL (units unknown) (unknown) (unknown) (no date) (unknown) (unknown) WBC 4.3 L (4.5-11.0) X103/uL (units unknown) (unknown) (unknown) (no date) (unknown) (unknown) XR chest 1V Stat (units unknown) (unknown) (unknown) (no date) (unknown) (unknown) XR pelvis 1-2V Stat (units unknown) (unknown) (unknown) (no date) (unknown) (unknown) [Embedded Image Not Available] (units unknown) (unknown) (unknown) (no date) (unknown) (unknown) [From BETADINE] FEEL S LIKE (units unknown) (unknown) (unknown) (no date) (unknown) (unknown) [SHELLFISH DERIVED] LIKE IT (units unknown) (unknown) (unknown) (no date) (unknown) (unknown) a small burn on his right forearm and he has bruising his girlfriend told medics (units unknown) (unknown) (unknown) (no date) (unknown) (unknown) abdomen pelvis shows no acute traumatic injury, remote left-sided rib fractures (units unknown) (unknown) (unknown) (no date) (unknown) (unknown) alcohol intake frequency: 0-2 drinks per day (units unknown) (unknown) (unknown) (no date) (unknown) (unknown) allergy to iodine which he did not tell us earlier. Was pretreated with (units unknown) (unknown) (unknown) (no date) (unknown) (unknown) and when asked he states he does want to kill himself when asked why he does not (units unknown) (unknown) (unknown) (no date) (unknown) (unknown) answer. When asked i f he has a plan he does not give one. Medics a girlfriend (units unknown) (unknown) (unknown) (no date) (unknown) (unknown) anything amiss in th e house but he had been found on the ground in the bathroom. (units unknown) (unknown) (unknown) (no date) (unknown) (unknown) appears older with healing skin underneath, warm and dry, no crepitus and (units unknown) (unknown) (unknown) (no date) (unknown) (unknown) arrived. (units unknown) (unknown) (unknown) (no date) (unknown) (unknown) atorvastatin 40 mg tablet 40 mg PO BEDTIME 01/14/23 01/14/23 (units unknown) (unknown) (unknown) (no date) (unknown) (unknown) atorvastatin 40 mg tablet (units unknown) (unknown) (unknown) (no date) (unknown) (unknown) been tachycardic since then, no hypertension. Patient did receive a dose of IV (units unknown) (unknown) (unknown) (no date) (unknown) (unknown) chest abdomen pelvis there was some delay as it was found patient has reported (units unknown) (unknown) (unknown) (no date) (unknown) (unknown) chest and abdomen although it appears little bit older, and he has a burn on his (units unknown) (unknown) (unknown) (no date) (unknown) (unknown) chest, right upper abdomen and right lower abdomen. (units unknown) (unknown) (unknown) (no date) (unknown) (unknown) currently voluntary seeking dual treatment. (units unknown) (unknown) (unknown) (no date) (unknown) (unknown) dependent diabetes and chronic pain with a pain pump in his left abdomen. Patie (units unknown) (unknown) (unknown) (no date) (unknown) (unknown) dextroamphetamine-am p hetamine 20 20 mg PO BID 01/14/23 01/14/23 (units unknown) (unknown) (unknown) (no date) (unknown) (unknown) dextroamphetamine-am p hetamine 20 mg tablet (units unknown) (unknown) (unknown) (no date) (unknown) (unknown) do his injections which he states are insulin. He states he has a pain pump in (units unknown) (unknown) (unknown) (no date) (unknown) (unknown) drinks at least a 5t h daily, he denies tobacco or illicit. He states he did not (units unknown) (unknown) (unknown) (no date) (unknown) (unknown) elevation or depression. (units unknown) (unknown) (unknown) (no date) (unknown) (unknown) eptal hematoma, no dental or oral injury, airway is normal and with normal (units unknown) (unknown) (unknown) (no date) (unknown) (unknown) found blood in a different location but the patient was not present at that (units unknown) (unknown) (unknown) (no date) (unknown) (unknown) function at baseline at 0.42 normal electrolytes glucose is 254, AST ALT alk (units unknown) (unknown) (unknown) (no date) (unknown) (unknown) furosemide 20 mg tablet 20 mg PO DAILY 01/14/23 01/14/23 (units unknown) (unknown) (unknown) (no date) (unknown) (unknown) furosemide 20 mg tablet (units unknown) (unknown) (unknown) (no date) (unknown) (unknown) gape, trachea is midline, TM's are normal no hemotypanum, Nares are clear, no s (units unknown) (unknown) (unknown) (no date) (unknown) (unknown) ground there was reportedly some glass at the scene and the medics state that (units unknown) (unknown) (unknown) (no date) (unknown) (unknown) hematoma. CT C-spine shows degenerative change but no fracture. CT chest (units unknown) (unknown) (unknown) (no date) (unknown) (unknown) hernia and stable lung nodules measuring 6 mm. (units unknown) (unknown) (unknown) (no date) (unknown) (unknown) his alcohol should b e around 100 around 1845. Patient does have some suicidal (units unknown) (unknown) (unknown) (no date) (unknown) (unknown) his belly. He did make statements that he wanted to kill himself to the medics (units unknown) (unknown) (unknown) (no date) (unknown) (unknown) his prior injuries with chest and abdominal bruising, with CT head, C-spine and (units unknown) (unknown) (unknown) (no date) (unknown) (unknown) injury, altered mental status, neuro deficit, positive for recent EtOH. (units unknown) (unknown) (unknown) (no date) (unknown) (unknown) insulin glargine 100 unit/mL (3 20 unit SUBCUT BEDTIME 01/14/23 01/14/23 (units unknown) (unknown) (unknown) (no date) (unknown) (unknown) insulin glargine [Lantus Solostar U-100 Insulin] 100 unit/mL (3 mL) insulin (units unknown) (unknown) (unknown) (no date) (unknown) (unknown) insulin lispro 100 unit/mL See Rx Instructions .Route .COMPLEX 01/14/23 01/14/23 (units unknown) (unknown) (unknown) (no date) (unknown) (unknown) insulin lispro [Humalog KwikPen Insulin] 100 unit/mL insulin pen (units unknown) (unknown) (unknown) (no date) (unknown) (unknown) last saw the patient on she noted that he bought a bottle of hard (units unknown) (unknown) (unknown) (no date) (unknown) (unknown) leave. 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 as he has been otherwise medically cleared (units unknown) (unknown) (unknown) (no date) (unknown) (unknown) liquor at that time and there was only about a few mL left today when EMS (units unknown) (unknown) (unknown) (no date) (unknown) (unknown) lorazepam when he initially came as patient was a little agitated and trying to (units unknown) (unknown) (unknown) (no date) (unknown) (unknown) losartan 100 mg tablet 100 mg PO DAILY 01/14/23 01/14/23 (units unknown) (unknown) (unknown) (no date) (unknown) (unknown) losartan 100 mg tablet (units unknown) (unknown) (unknown) (no date) (unknown) (unknown) mL) subcutaneous pen (Lantus (units unknown) (unknown) (unknown) (no date) (unknown) (unknown) mg tablet (units unknown) (unknown) (unknown) (no date) (unknown) (unknown) moving all his extremities well. Is conversant but confused. Patient states he (units unknown) (unknown) (unknown) (no date) (unknown) (unknown) negative. Patient wa s CT scan secondary to intoxication unclear mechanism of (units unknown) (unknown) (unknown) (no date) (unknown) (unknown) normal color and temperature, normal range of motion of extremities with normal (units unknown) (unknown) (unknown) (no date) (unknown) (unknown) nt states he does no t know who he is aware he is. He is able to give his name (units unknown) (unknown) (unknown) (no date) (unknown) (unknown) obtained is unclear what exactly occurred. Patient was called out as a modified (units unknown) (unknown) (unknown) (no date) (unknown) (unknown) occlusion, No bony tenderness (units unknown) (unknown) (unknown) (no date) (unknown) (unknown) pelvic rock is negative, patient has device in the left lateral abdomen. (units unknown) (unknown) (unknown) (no date) (unknown) (unknown) pen (units unknown) (unknown) (unknown) (no date) (unknown) (unknown) penicillin G [PENICILLIN G] Allergy Unknown LEFT EAR Verified 07/27/18 10:10 (units unknown) (unknown) (unknown) (no date) (unknown) (unknown) phos are 8788 and 14 6 with a negative bilirubin and lipase of 109. EKG shows a (units unknown) (unknown) (unknown) (no date) (unknown) (unknown) povidone-iodine Allergy Unknown 'SKIN Verified 07/27/18 10:10 (units unknown) (unknown) (unknown) (no date) (unknown) (unknown) propranolol 20 mg tablet 20 mg PO BID 01/14/23 01/14/23 (units unknown) (unknown) (unknown) (no date) (unknown) (unknown) propranolol 20 mg tablet (units unknown) (unknown) (unknown) (no date) (unknown) (unknown) redirectable althoug h he keeps saying he wants to get out of the bed. He has (units unknown) (unknown) (unknown) (no date) (unknown) (unknown) right forearm that also appears little bit older. Patient was found on the (units unknown) (unknown) (unknown) (no date) (unknown) (unknown) shellfish derived Allergy Unknown 'SKIN FELT Verified 07/27/18 10:10 (units unknown) (unknown) (unknown) (no date) (unknown) (unknown) sinus rhythm no acut e ST changes. Initial chest x-ray and pelvic x-ray is (units unknown) (unknown) (unknown) (no date) (unknown) (unknown) soap [From BETADINE] Allergy Unknown 'SKIN Verified 07/27/18 10:10 (units unknown) (unknown) (unknown) (no date) (unknown) (unknown) soft tissue injury over the super to right orbit/right frontal bone with a small (units unknown) (unknown) (unknown) (no date) (unknown) (unknown) some blood at the scene in a different location. Patient had labs, imaging (units unknown) (unknown) (unknown) (no date) (unknown) (unknown) some broken glass, medics state the glass was cleaned up they did not see (units unknown) (unknown) (unknown) (no date) (unknown) (unknown) sounds are normal no crackles, wheezes or rales (units unknown) (unknown) (unknown) (no date) (unknown) (unknown) speech appears intoxicated but is conversant. (units unknown) (unknown) (unknown) (no date) (unknown) (unknown) subcutaneous pen (Humalog KwikPen (units unknown) (unknown) (unknown) (no date) (unknown) (unknown) superficial lack of the right forehead, he has some bruising of his anterior (units unknown) (unknown) (unknown) (no date) (unknown) (unknown) tamsulosin 0.4 mg capsule 0.4 mg PO DAILY 01/14/23 01/14/23 (units unknown) (unknown) (unknown) (no date) (unknown) (unknown) tamsulosin 0.4 mg capsule (units unknown) (unknown) (unknown) (no date) (unknown) (unknown) tendon exam, 2+ pulses in all four extremities (units unknown) (unknown) (unknown) (no date) (unknown) (unknown) that is bruising on his left abdomen is from injections but onto his chest and (units unknown) (unknown) (unknown) (no date) (unknown) (unknown) they were there the day before patient was not present at home but there was (units unknown) (unknown) (unknown) (no date) (unknown) (unknown) thoughts no clear active clot described to myself. That was social work (units unknown) (unknown) (unknown) (no date) (unknown) (unknown) time. Patient does not recall what trauma occurred. The somewhat repetitive. (units unknown) (unknown) (unknown) (no date) (unknown) (unknown) trauma. (units unknown) (unknown) (unknown) (no date) (unknown) (unknown) upper abdomen she is unsure. Patient was found at home in the bathroom with (units unknown) (unknown) (unknown) (no date) (unknown) (unknown) what appears to be scabbed superficial laceration over his right forehead he has (units unknown) (unknown) (unknown) (no date) (unknown) (unknown) when he is registered. Patient is confused but follows commands he is (units unknown) (unknown) (unknown) (no date) (unknown) (unknown) with remote left scapular and L1-L2 transverse process fractures, small hiatal (units unknown) (unknown) (unknown) (no date) (unknown) (unknown) without decubitus. Patient has ecchymosis that is about 4 cm on his anterior (units unknown) (unknown) Result panel 230 (unknown) (no date) (unknown) (unknown) (no value) (units unknown) (unknown) (unknown) (no date) (unknown) (unknown) (U-100) Insulin) (units unknown) (unknown) (unknown) (no date) (unknown) (unknown) 0.4 mg PO DAILY (units unknown) (unknown) (unknown) (no date) (unknown) (unknown) [id number] (units unknown) (unknown) (unknown) (no date) (unknown) (unknown) 01/14/23 01/14/23 01/14/23 Range/Units (units unknown) (unknown) (unknown) (no date) (unknown) (unknown) 01/14/23 10:27 (units unknown) (unknown) (unknown) (no date) (unknown) (unknown) 01/14/23 10:29 (units unknown) (unknown) (unknown) (no date) (unknown) (unknown) 01/14/23 10:35 (units unknown) (unknown) (unknown) (no date) (unknown) (unknown) 01/14/23 10:45 (units unknown) (unknown) (unknown) (no date) (unknown) (unknown) 01/14/23 11:17 (units unknown) (unknown) (unknown) (no date) (unknown) (unknown) 01/14/23 11:23 (units unknown) (unknown) (unknown) (no date) (unknown) (unknown) 01/14/23 14:09 (units unknown) (unknown) (unknown) (no date) (unknown) (unknown) 01/14/23 15:25 (units unknown) (unknown) (unknown) (no date) (unknown) (unknown) 01/14/23 17:01 (units unknown) (unknown) (unknown) (no date) (unknown) (unknown) 01/14/23 18:04 (units unknown) (unknown) (unknown) (no date) (unknown) (unknown) 01/14/23 (units unknown) (unknown) (unknown) (no date) (unknown) (unknown) 100 mg PO DAILY (units unknown) (unknown) (unknown) (no date) (unknown) (unknown) 10:22 01/14/23 (units unknown) (unknown) (unknown) (no date) (unknown) (unknown) 10:25 01/14/23 (units unknown) (unknown) (unknown) (no date) (unknown) (unknown) 10:30 (units unknown) (unknown) (unknown) (no date) (unknown) (unknown) 10:32 01/14/23 (units unknown) (unknown) (unknown) (no date) (unknown) (unknown) 10:45 10:45 10:45 (units unknown) (unknown) (unknown) (no date) (unknown) (unknown) 10:45 11:23 13:48 (units unknown) (unknown) (unknown) (no date) (unknown) (unknown) 11:00 (units unknown) (unknown) (unknown) (no date) (unknown) (unknown) 11:24 01/14/23 (units unknown) (unknown) (unknown) (no date) (unknown) (unknown) 11:30 (units unknown) (unknown) (unknown) (no date) (unknown) (unknown) 11:31 01/14/23 (units unknown) (unknown) (unknown) (no date) (unknown) (unknown) 11:50 01/14/23 (units unknown) (unknown) (unknown) (no date) (unknown) (unknown) 11:50 (units unknown) (unknown) (unknown) (no date) (unknown) (unknown) 12:05 01/14/23 (units unknown) (unknown) (unknown) (no date) (unknown) (unknown) 12:05 (units unknown) (unknown) (unknown) (no date) (unknown) (unknown) 12:15 01/14/23 (units unknown) (unknown) (unknown) (no date) (unknown) (unknown) 12:30 01/14/23 (units unknown) (unknown) (unknown) (no date) (unknown) (unknown) 12:30 (units unknown) (unknown) (unknown) (no date) (unknown) (unknown) 12:45 01/14/23 (units unknown) (unknown) (unknown) (no date) (unknown) (unknown) 12:45 (units unknown) (unknown) (unknown) (no date) (unknown) (unknown) 13:00 01/14/23 (units unknown) (unknown) (unknown) (no date) (unknown) (unknown) 13:01 01/14/23 (units unknown) (unknown) (unknown) (no date) (unknown) (unknown) 13:01 (units unknown) (unknown) (unknown) (no date) (unknown) (unknown) 13:15 01/14/23 (units unknown) (unknown) (unknown) (no date) (unknown) (unknown) 13:30 01/14/23 (units unknown) (unknown) (unknown) (no date) (unknown) (unknown) 13:30 (units unknown) (unknown) (unknown) (no date) (unknown) (unknown) 13:49 01/14/23 (units unknown) (unknown) (unknown) (no date) (unknown) (unknown) 13:49 (units unknown) (unknown) (unknown) (no date) (unknown) (unknown) 14:00 01/14/23 (units unknown) (unknown) (unknown) (no date) (unknown) (unknown) 14:09 14:09 15:25 (units unknown) (unknown) (unknown) (no date) (unknown) (unknown) 14:26 04/08/23 (units unknown) (unknown) (unknown) (no date) (unknown) (unknown) 14:26 (units unknown) (unknown) (unknown) (no date) (unknown) (unknown) 14:30 01/14/23 (units unknown) (unknown) (unknown) (no date) (unknown) (unknown) 15:00 (units unknown) (unknown) (unknown) (no date) (unknown) (unknown) 15:02 01/14/23 (units unknown) (unknown) (unknown) (no date) (unknown) (unknown) 15:30 (units unknown) (unknown) (unknown) (no date) (unknown) (unknown) 16:00 01/14/23 (units unknown) (unknown) (unknown) (no date) (unknown) (unknown) 16:30 01/14/23 (units unknown) (unknown) (unknown) (no date) (unknown) (unknown) 16:30 (units unknown) (unknown) (unknown) (no date) (unknown) (unknown) 17:00 01/14/23 (units unknown) (unknown) (unknown) (no date) (unknown) (unknown) 17:00 (units unknown) (unknown) (unknown) (no date) (unknown) (unknown) 17:30 01/14/23 (units unknown) (unknown) (unknown) (no date) (unknown) (unknown) 18:00 (units unknown) (unknown) (unknown) (no date) (unknown) (unknown) 20 mg PO BID (units unknown) (unknown) (unknown) (no date) (unknown) (unknown) 20 mg PO DAILY (units unknown) (unknown) (unknown) (no date) (unknown) (unknown) 20 unit SUBCUT BEDTIME (units unknown) (unknown) (unknown) (no date) (unknown) (unknown) 2016 white count of 4.3 normal platelets at 296. Coags are negative, renal fun (units unknown) (unknown) (unknown) (no date) (unknown) (unknown) 4 extremities moving , cranial nerves II through XII are intact, GCS is 15 (units unknown) (unknown) (unknown) (no date) (unknown) (unknown) 40 mg PO BEDTIME (units unknown) (unknown) (unknown) (no date) (unknown) (unknown) ABG/GI: Nontender, soft, normal bowel sounds, no distention, no organomegaly, (units unknown) (unknown) (unknown) (no date) (unknown) (unknown) ADMINISTER 2 TO 10 UNITS UNDER THE SKIN BEFORE MEALS AND AT BEDTIME (units unknown) (unknown) (unknown) (no date) (unknown) (unknown) ADMINISTER 20 UNITS UNDER THE SKIN EVERY EVENING (units unknown) (unknown) (unknown) (no date) (unknown) (unknown) AGE 12YR (units unknown) (unknown) (unknown) (no date) (unknown) (unknown) ALT (<50) IU/L (units unknown) (unknown) (unknown) (no date) (unknown) (unknown) ALT 88 H (<50) IU/L (units unknown) (unknown) (unknown) (no date) (unknown) (unknown) APTT (26-36) SECONDS (units unknown) (unknown) (unknown) (no date) (unknown) (unknown) APTT 34 (26-36) SECONDS (units unknown) (unknown) (unknown) (no date) (unknown) (unknown) AST (17-59) IU/L (units unknown) (unknown) (unknown) (no date) (unknown) (unknown) AST 87 H (17-59) IU/L (units unknown) (unknown) (unknown) (no date) (unknown) (unknown) Acetaminophen (Acetaminophen 325 Mg Tablet) 650 mg PO NOW ONE (units unknown) (unknown) (unknown) (no date) (unknown) (unknown) Age/Sex: 53 / M (units unknown) (unknown) (unknown) (no date) (unknown) (unknown) Albumin (3.5-5.0) g/dL (units unknown) (unknown) (unknown) (no date) (unknown) (unknown) Albumin 4.0 (3.5-5.0 ) g/dL (units unknown) (unknown) (unknown) (no date) (unknown) (unknown) Albumin/Globulin Ratio (1.0-2.8) (units unknown) (unknown) (unknown) (no date) (unknown) (unknown) Albumin/Globulin Ratio 1.3 (1.0-2.8) (units unknown) (unknown) (unknown) (no date) (unknown) (unknown) Alkaline Phosphatase (38-126) U/L (units unknown) (unknown) (unknown) (no date) (unknown) (unknown) Alkaline Phosphatase 146 H (38-126) U/L (units unknown) (unknown) (unknown) (no date) (unknown) (unknown) Allergies (units unknown) (unknown) (unknown) (no date) (unknown) (unknown) Allergy/AdvReac Type Severity Reaction Status Date / Time (units unknown) (unknown) (unknown) (no date) (unknown) (unknown) Another facility is evaluating the patient. Patient signed out to Dr. Dewey, (units unknown) (unknown) (unknown) (no date) (unknown) (unknown) Antibody Screen Negative (units unknown) (unknown) (unknown) (no date) (unknown) (unknown) Antibody Screen (units unknown) (unknown) (unknown) (no date) (unknown) (unknown) Attestation: I personally reviewed and interpreted this ECG as follows: (units unknown) (unknown) (unknown) (no date) (unknown) (unknown) BACK: No CVA tenderness, no vertebral tenderness, no step-off's, no crepitus (units unknown) (unknown) (unknown) (no date) (unknown) (unknown) BUN (9-20) mg/dL (units unknown) (unknown) (unknown) (no date) (unknown) (unknown) BUN 8 L (9-20) mg/dL (units unknown) (unknown) (unknown) (no date) (unknown) (unknown) BUN/Creatinine Ratio (6-22) (units unknown) (unknown) (unknown) (no date) (unknown) (unknown) BUN/Creatinine Ratio 19.0 (6-22) (units unknown) (unknown) (unknown) (no date) (unknown) (unknown) BURNING' (units unknown) (unknown) (unknown) (no date) (unknown) (unknown) Baso # (Auto) (0-100 ) /uL (units unknown) (unknown) (unknown) (no date) (unknown) (unknown) Baso # (Auto) 100 (0-100) /uL (units unknown) (unknown) (unknown) (no date) (unknown) (unknown) Baso % (Auto) (0-2) % (units unknown) (unknown) (unknown) (no date) (unknown) (unknown) Baso % (Auto) 1.4 (0-2) % (units unknown) (unknown) (unknown) (no date) (unknown) (unknown) Blood Pressure 113/5 6 L (units unknown) (unknown) (unknown) (no date) (unknown) (unknown) Blood Pressure 121/7 3 130/82 (units unknown) (unknown) (unknown) (no date) (unknown) (unknown) Blood Pressure 133/9 2 H (units unknown) (unknown) (unknown) (no date) (unknown) (unknown) Blood Pressure 135/8 8 144/96 H (units unknown) (unknown) (unknown) (no date) (unknown) (unknown) Blood Pressure 137/7 2 106/52 L (units unknown) (unknown) (unknown) (no date) (unknown) (unknown) Blood Pressure 146/8 2 H (units unknown) (unknown) (unknown) (no date) (unknown) (unknown) Blood Pressure 146/9 0 H (units unknown) (unknown) (unknown) (no date) (unknown) (unknown) Blood Pressure 148/9 1 H 137/84 (units unknown) (unknown) (unknown) (no date) (unknown) (unknown) Blood Pressure 149/9 4 H 01/14/23 10:22 (units unknown) (unknown) (unknown) (no date) (unknown) (unknown) Blood Pressure 149/9 4 H (units unknown) (unknown) (unknown) (no date) (unknown) (unknown) Blood Pressure 151/8 7 H (units unknown) (unknown) (unknown) (no date) (unknown) (unknown) Blood Pressure 155/9 7 H (units unknown) (unknown) (unknown) (no date) (unknown) (unknown) Blood Pressure 160/9 7 H (units unknown) (unknown) (unknown) (no date) (unknown) (unknown) Blood Pressure 163/8 8 H (units unknown) (unknown) (unknown) (no date) (unknown) (unknown) Blood Pressure 164/106 H 141/98 H (units unknown) (unknown) (unknown) (no date) (unknown) (unknown) Blood Pressure 172/8 8 H (units unknown) (unknown) (unknown) (no date) (unknown) (unknown) Blood Pressure 181/9 5 H (units unknown) (unknown) (unknown) (no date) (unknown) (unknown) Blood Pressure (units unknown) (unknown) (unknown) (no date) (unknown) (unknown) Blood Type O Positive (units unknown) (unknown) (unknown) (no date) (unknown) (unknown) Blood Type (units unknown) (unknown) (unknown) (no date) (unknown) (unknown) COVID19 -Nasal RAPID Stat (units unknown) (unknown) (unknown) (no date) (unknown) (unknown) CT C-spine shows degenerative change but no fracture. CT chest abdomen pelvis (units unknown) (unknown) (unknown) (no date) (unknown) (unknown) CT cervical spine wo con Stat (units unknown) (unknown) (unknown) (no date) (unknown) (unknown) CT chest abd pel w con Stat (units unknown) (unknown) (unknown) (no date) (unknown) (unknown) CT head/brain wo con Stat (units unknown) (unknown) (unknown) (no date) (unknown) (unknown) CVS: Heart sounds ar e normal, no murmur noted, No JVD. (units unknown) (unknown) (unknown) (no date) (unknown) (unknown) Calcium (8.4-10.2) mg/dL (units unknown) (unknown) (unknown) (no date) (unknown) (unknown) Calcium 8.5 (8.4-10.2) mg/dL (units unknown) (unknown) (unknown) (no date) (unknown) (unknown) Carbon Dioxide (22-32) mmol/L (units unknown) (unknown) (unknown) (no date) (unknown) (unknown) Carbon Dioxide 30 (22-32) mmol/L (units unknown) (unknown) (unknown) (no date) (unknown) (unknown) Chief Complaint: Trauma (units unknown) (unknown) (unknown) (no date) (unknown) (unknown) Chloride (98-107) mmol/L (units unknown) (unknown) (unknown) (no date) (unknown) (unknown) Chloride 100 (98-107 ) mmol/L (units unknown) (unknown) (unknown) (no date) (unknown) (unknown) Chronic low back pain (units unknown) (unknown) (unknown) (no date) (unknown) (unknown) Clinical Impression: (units unknown) (unknown) (unknown) (no date) (unknown) (unknown) Complete Blood Count AUTO DIFF Stat (units unknown) (unknown) (unknown) (no date) (unknown) (unknown) Comprehensive Metabolic Panel Stat (units unknown) (unknown) (unknown) (no date) (unknown) (unknown) Consult to [facility] [place] - 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 (units unknown) (unknown) (unknown) (no date) (unknown) (unknown) Course (units unknown) (unknown) (unknown) (no date) (unknown) (unknown) Creatinine (0.66-1.25) mg/dL (units unknown) (unknown) (unknown) (no date) (unknown) (unknown) Creatinine 0.42 L (0.66-1.25) mg/dL (units unknown) (unknown) (unknown) (no date) (unknown) (unknown) : 1970 Acct:[id number] (units unknown) (unknown) (unknown) (no date) (unknown) (unknown) Date of Service: 01/14/23 (units unknown) (unknown) (unknown) (no date) (unknown) (unknown) Departure (units unknown) (unknown) (unknown) (no date) (unknown) (unknown) Diphenhydramine HCl (Diphenhydramine 50 Mg/Ml Vial) 50 mg IV NOW ONE (units unknown) (unknown) (unknown) (no date) (unknown) (unknown) Diphtheria/Tetanus/A c ell Pertussis (Tet,Diph,Pertuss(Isaias ll),Vac/Pf 0.5 Ml (units unknown) (unknown) (unknown) (no date) (unknown) (unknown) Discharge Plan (units unknown) (unknown) (unknown) (no date) (unknown) (unknown) Discontinued Medications (units unknown) (unknown) (unknown) (no date) (unknown) (unknown) Documented By: AT (units unknown) (unknown) (unknown) (no date) (unknown) (unknown) Documented By: KB (units unknown) (unknown) (unknown) (no date) (unknown) (unknown) ECG Data (units unknown) (unknown) (unknown) (no date) (unknown) (unknown) ED Orders (units unknown) (unknown) (unknown) (no date) (unknown) (unknown) EKG-12 Lead Stat (units unknown) (unknown) (unknown) (no date) (unknown) (unknown) ENT: Patient has superficial scabbed laceration over his right brow, does not (units unknown) (unknown) (unknown) (no date) (unknown) (unknown) ER Physician: Bridgett Garrido D.O. (units unknown) (unknown) (unknown) (no date) (unknown) (unknown) ETOH [Ethanol (ETOH) ] Stat (units unknown) (unknown) (unknown) (no date) (unknown) (unknown) EXT: Atraumatic othe r than skin changes. hips are nontender, no pedal edema, (units unknown) (unknown) (unknown) (no date) (unknown) (unknown) EYES: PERRLA, EOMI (units unknown) (unknown) (unknown) (no date) (unknown) (unknown) Emergency Report (units unknown) (unknown) (unknown) (no date) (unknown) (unknown) Eos # (Auto) (0-450) /uL (units unknown) (unknown) (unknown) (no date) (unknown) (unknown) Eos # (Auto) 100 (0-450) /uL (units unknown) (unknown) (unknown) (no date) (unknown) (unknown) Eos % (Auto) (2-4) % (units unknown) (unknown) (unknown) (no date) (unknown) (unknown) Eos % (Auto) 2.2 (2-4) % (units unknown) (unknown) (unknown) (no date) (unknown) (unknown) Estimated GFR > 60 (>60) mL/min (units unknown) (unknown) (unknown) (no date) (unknown) (unknown) Estimated GFR (>60) mL/min (units unknown) (unknown) (unknown) (no date) (unknown) (unknown) Ethanol (ETOH) Stat (units unknown) (unknown) (unknown) (no date) (unknown) (unknown) Ethyl Alcohol ( - 10 ) mg/dL (units unknown) (unknown) (unknown) (no date) (unknown) (unknown) Ethyl Alcohol 308 H ( - 10) mg/dL (units unknown) (unknown) (unknown) (no date) (unknown) (unknown) Exam (units unknown) (unknown) (unknown) (no date) (unknown) (unknown) FEELS LIKE (units unknown) (unknown) (unknown) (no date) (unknown) (unknown) GEN: C-collar was placed by EMS in the field but patient would not keep it on. (units unknown) (unknown) (unknown) (no date) (unknown) (unknown) General (units unknown) (unknown) (unknown) (no date) (unknown) (unknown) Globulin (1.7-4.1) g/dL (units unknown) (unknown) (unknown) (no date) (unknown) (unknown) Globulin 3.2 (1.7-4.1) g/dL (units unknown) (unknown) (unknown) (no date) (unknown) (unknown) Glucose (70-100) mg/dL (units unknown) (unknown) (unknown) (no date) (unknown) (unknown) Glucose 254 H (70-100) mg/dL (units unknown) (unknown) (unknown) (no date) (unknown) (unknown) Glucose POC 344 (units unknown) (unknown) (unknown) (no date) (unknown) (unknown) HEAD: No evidence of trauma, no raccoon/Johnson sign. (units unknown) (unknown) (unknown) (no date) (unknown) (unknown) HEARING (units unknown) (unknown) (unknown) (no date) (unknown) (unknown) HPI - Trauma (units unknown) (unknown) (unknown) (no date) (unknown) (unknown) HPI narrative: (units unknown) (unknown) (unknown) (no date) (unknown) (unknown) Hct (41-53) % (units unknown) (unknown) (unknown) (no date) (unknown) (unknown) Hct 36.9 L (41-53) % (units unknown) (unknown) (unknown) (no date) (unknown) (unknown) Hgb (13.5-17.5) g/dL (units unknown) (unknown) (unknown) (no date) (unknown) (unknown) Hgb 12.3 L (13.5-17.5) g/dL (units unknown) (unknown) (unknown) (no date) (unknown) (unknown) History of Present Illness (units unknown) (unknown) (unknown) (no date) (unknown) (unknown) Home Medications (units unknown) (unknown) (unknown) (no date) (unknown) (unknown) INR (0.9-1.3) (units unknown) (unknown) (unknown) (no date) (unknown) (unknown) INR 1.0 (0.9-1.3) (units unknown) (unknown) (unknown) (no date) (unknown) (unknown) Initial Vital Signs (units unknown) (unknown) (unknown) (no date) (unknown) (unknown) Initial Vital Signs: (units unknown) (unknown) (unknown) (no date) (unknown) (unknown) Interpretation: (units unknown) (unknown) (unknown) (no date) (unknown) (unknown) [address] [address] (units unknown) (unknown) (unknown) (no date) (unknown) (unknown) Ketorolac Tromethamine (Ketorolac 30 Mg/Ml Vial) 15 mg IV NOW ONE (units unknown) (unknown) (unknown) (no date) (unknown) (unknown) LOSS AT (units unknown) (unknown) (unknown) (no date) (unknown) (unknown) Lab Data (units unknown) (unknown) (unknown) (no date) (unknown) (unknown) Lab Results (units unknown) (unknown) (unknown) (no date) (unknown) (unknown) Labs show an ETOH of 308, patient has a hemoglobin of 12 baseline compared to (units unknown) (unknown) (unknown) (no date) (unknown) (unknown) Labs: (units unknown) (unknown) (unknown) (no date) (unknown) (unknown) Lactate (0.7-2.1) mmol/L (units unknown) (unknown) (unknown) (no date) (unknown) (unknown) Lactate (Lactic Acid ) Stat (units unknown) (unknown) (unknown) (no date) (unknown) (unknown) Lactate 2.1 1.9 (0.7-2.1) mmol/L (units unknown) (unknown) (unknown) (no date) (unknown) (unknown) Last Admin: 01/14/23 10:42 Dose: 0.5 mg (units unknown) (unknown) (unknown) (no date) (unknown) (unknown) Last Admin: 01/14/23 11:11 Dose: 50 mg (units unknown) (unknown) (unknown) (no date) (unknown) (unknown) Last Admin: 01/14/23 11:12 Dose: 125 mg (units unknown) (unknown) (unknown) (no date) (unknown) (unknown) Last Admin: 01/14/23 14:28 Dose: 260 mg (units unknown) (unknown) (unknown) (no date) (unknown) (unknown) Last Admin: 01/14/23 14:29 Dose: 650 mg (units unknown) (unknown) (unknown) (no date) (unknown) (unknown) Last Admin: 01/14/23 15:09 Dose: 0.5 ml (units unknown) (unknown) (unknown) (no date) (unknown) (unknown) Last Admin: 01/14/23 18:00 Dose: 15 mg (units unknown) (unknown) (unknown) (no date) (unknown) (unknown) Limitations: no limitations (units unknown) (unknown) (unknown) (no date) (unknown) (unknown) Lipase (23-300) U/L (units unknown) (unknown) (unknown) (no date) (unknown) (unknown) Lipase 109 (23-300) U/L (units unknown) (unknown) (unknown) (no date) (unknown) (unknown) Lipase Stat (units unknown) (unknown) (unknown) (no date) (unknown) (unknown) Lorazepam (Lorazepam 2 Mg/Ml Inj) 0.5 mg IV NOW ONE (units unknown) (unknown) (unknown) (no date) (unknown) (unknown) Lorazepam (Lorazepam 2 Mg/Ml Inj) 0.5 mg IV Q2HR PRN (units unknown) (unknown) (unknown) (no date) (unknown) (unknown) Lymph # (Auto) (6491-6536) /uL (units unknown) (unknown) (unknown) (no date) (unknown) (unknown) Lymph # (Auto) 1700 (8063-1916) /uL (units unknown) (unknown) (unknown) (no date) (unknown) (unknown) Lymph % (Auto) (25-40) % (units unknown) (unknown) (unknown) (no date) (unknown) (unknown) Lymph % (Auto) 39.1 (25-40) % (units unknown) (unknown) (unknown) (no date) (unknown) (unknown) MCH (26-34) PG (units unknown) (unknown) (unknown) (no date) (unknown) (unknown) MCH 32.5 (26-34) PG (units unknown) (unknown) (unknown) (no date) (unknown) (unknown) MCHC (30-36) % (units unknown) (unknown) (unknown) (no date) (unknown) (unknown) MCHC 33.5 (30-36) % (units unknown) (unknown) (unknown) (no date) (unknown) (unknown) MCV (80-100) fL (units unknown) (unknown) (unknown) (no date) (unknown) (unknown) MCV 97.1 (80-100) fL (units unknown) (unknown) (unknown) (no date) (unknown) (unknown) MDM - Trauma (units unknown) (unknown) (unknown) (no date) (unknown) (unknown) MDM Narrative (units unknown) (unknown) (unknown) (no date) (unknown) (unknown) Medical History (Updated 01/14/23 @ 16:59 by Bridgett Garrido DO) (units unknown) (unknown) (unknown) (no date) (unknown) (unknown) Medical decision making narrative: (units unknown) (unknown) (unknown) (no date) (unknown) (unknown) Medication Instructions Recorded Confirmed (units unknown) (unknown) (unknown) (no date) (unknown) (unknown) Methylprednisolone (Methylprednisolone 125 Mg/2 Ml Vial) 125 mg IV NOW ONE (units unknown) (unknown) (unknown) (no date) (unknown) (unknown) Micro UA Comment Microscopic normal (units unknown) (unknown) (unknown) (no date) (unknown) (unknown) Micro UA Comment (units unknown) (unknown) (unknown) (no date) (unknown) (unknown) Mode of arrival: EMS (units unknown) (unknown) (unknown) (no date) (unknown) (unknown) [place] # (Auto) (0-900 ) /uL (units unknown) (unknown) (unknown) (no date) (unknown) (unknown) [place] # (Auto) 600 (0-900) /uL (units unknown) (unknown) (unknown) (no date) (unknown) (unknown) [place] % (Auto) (3-14) % (units unknown) (unknown) (unknown) (no date) (unknown) (unknown) [place] % (Auto) 14.9 H (3-14) % (units unknown) (unknown) (unknown) (no date) (unknown) (unknown) NECK: Nontender, painless range of motion, trachea midline (units unknown) (unknown) (unknown) (no date) (unknown) (unknown) NEURO: Oriented AOx3 , neuro is grossly intact, sensation and motor is normal all (units unknown) (unknown) (unknown) (no date) (unknown) (unknown) Narrative: (units unknown) (unknown) (unknown) (no date) (unknown) (unknown) Neut # (Auto) (0781-4828) /uL (units unknown) (unknown) (unknown) (no date) (unknown) (unknown) Neut # (Auto) 1800 (4924-1201) /uL (units unknown) (unknown) (unknown) (no date) (unknown) (unknown) Neut % (Auto) (50-75 ) % (units unknown) (unknown) (unknown) (no date) (unknown) (unknown) Neut % (Auto) 42.4 L (50-75) % (units unknown) (unknown) (unknown) (no date) (unknown) (unknown) No Action (units unknown) (unknown) (unknown) (no date) (unknown) (unknown) Nontender, incisions healed. (units unknown) (unknown) (unknown) (no date) (unknown) (unknown) Ordered: (units unknown) (unknown) (unknown) (no date) (unknown) (unknown) Orders (units unknown) (unknown) (unknown) (no date) (unknown) (unknown) Oxygen Delivery Method Room Air 01/14/23 10:22 (units unknown) (unknown) (unknown) (no date) (unknown) (unknown) Oxygen Delivery Method Room Air Room Air (units unknown) (unknown) (unknown) (no date) (unknown) (unknown) Oxygen Delivery Method Room Air (units unknown) (unknown) (unknown) (no date) (unknown) (unknown) Oxygen Delivery Method (units unknown) (unknown) (unknown) (no date) (unknown) (unknown) PRN Reason: Anxiety (units unknown) (unknown) (unknown) (no date) (unknown) (unknown) PSYCH: Normal mood and affect (units unknown) (unknown) (unknown) (no date) (unknown) (unknown) PT (10.1-12.7) SECONDS (units unknown) (unknown) (unknown) (no date) (unknown) (unknown) PT 11.2 (10.1-12.7) SECONDS (units unknown) (unknown) (unknown) (no date) (unknown) (unknown) PTT Partial Thromboplastin Rodolfo Stat (units unknown) (unknown) (unknown) (no date) (unknown) (unknown) Patient Comments: (units unknown) (unknown) (unknown) (no date) (unknown) (unknown) Patient History (units unknown) (unknown) (unknown) (no date) (unknown) (unknown) Patient appears in moderate distress. Patient is confused has slightly slurred (units unknown) (unknown) (unknown) (no date) (unknown) (unknown) Patient denies pain, no shortness of breath, no GI or urinary symptoms. He is (units unknown) (unknown) (unknown) (no date) (unknown) (unknown) Patient had Solu-Medrol methylprednisolone for pretreatment for CT, he had (units unknown) (unknown) (unknown) (no date) (unknown) (unknown) Patient was CT scan secondary to intoxication unclear mechanism of his prior (units unknown) (unknown) (unknown) (no date) (unknown) (unknown) Patient was being evaluated by 1 facility, they asked for repeat EKG for QTC (units unknown) (unknown) (unknown) (no date) (unknown) (unknown) Patient: Sj Romo MR#: [id number] (units unknown) (unknown) (unknown) (no date) (unknown) (unknown) Phenobarbital (Phenobarbital 65 Mg/Ml Vial) 260 mg IV NOW ONE (units unknown) (unknown) (unknown) (no date) (unknown) (unknown) Plt Count (150-400) X103/uL (units unknown) (unknown) (unknown) (no date) (unknown) (unknown) Plt Count 296 (150-400) X103/uL (units unknown) (unknown) (unknown) (no date) (unknown) (unknown) Point of Care Testing (units unknown) (unknown) (unknown) (no date) (unknown) (unknown) Positive Nexus criteria, there is no midline line tenderness, distracting (units unknown) (unknown) (unknown) (no date) (unknown) (unknown) Potassium (3.4-5.1) mmol/L (units unknown) (unknown) (unknown) (no date) (unknown) (unknown) Potassium 3.9 (3.4-5.1) mmol/L (units unknown) (unknown) (unknown) (no date) (unknown) (unknown) Prescriptions: (units unknown) (unknown) (unknown) (no date) (unknown) (unknown) Prothrombin Time INR Stat (units unknown) (unknown) (unknown) (no date) (unknown) (unknown) Pulse Oximetry 93 93 (units unknown) (unknown) (unknown) (no date) (unknown) (unknown) Pulse Oximetry 93 95 (units unknown) (unknown) (unknown) (no date) (unknown) (unknown) Pulse Oximetry 93 (units unknown) (unknown) (unknown) (no date) (unknown) (unknown) Pulse Oximetry 94 91 (units unknown) (unknown) (unknown) (no date) (unknown) (unknown) Pulse Oximetry 94 94 (units unknown) (unknown) (unknown) (no date) (unknown) (unknown) Pulse Oximetry 94 96 (units unknown) (unknown) (unknown) (no date) (unknown) (unknown) Pulse Oximetry 94 (units unknown) (unknown) (unknown) (no date) (unknown) (unknown) Pulse Oximetry 95 94 (units unknown) (unknown) (unknown) (no date) (unknown) (unknown) Pulse Oximetry 95 97 (units unknown) (unknown) (unknown) (no date) (unknown) (unknown) Pulse Oximetry 95 (units unknown) (unknown) (unknown) (no date) (unknown) (unknown) Pulse Oximetry 96 (units unknown) (unknown) (unknown) (no date) (unknown) (unknown) Pulse Oximetry 97 96 (units unknown) (unknown) (unknown) (no date) (unknown) (unknown) Pulse Oximetry 97 (units unknown) (unknown) (unknown) (no date) (unknown) (unknown) Pulse Oximetry 99 01/14/23 10:22 (units unknown) (unknown) (unknown) (no date) (unknown) (unknown) Pulse Oximetry 99 96 97 (units unknown) (unknown) (unknown) (no date) (unknown) (unknown) Pulse Rate 74 72 (units unknown) (unknown) (unknown) (no date) (unknown) (unknown) Pulse Rate 74 78 (units unknown) (unknown) (unknown) (no date) (unknown) (unknown) Pulse Rate 74 (units unknown) (unknown) (unknown) (no date) (unknown) (unknown) Pulse Rate 75 76 (units unknown) (unknown) (unknown) (no date) (unknown) (unknown) Pulse Rate 75 (units unknown) (unknown) (unknown) (no date) (unknown) (unknown) Pulse Rate 76 82 (units unknown) (unknown) (unknown) (no date) (unknown) (unknown) Pulse Rate 78 80 (units unknown) (unknown) (unknown) (no date) (unknown) (unknown) Pulse Rate 80 79 (units unknown) (unknown) (unknown) (no date) (unknown) (unknown) Pulse Rate 80 (units unknown) (unknown) (unknown) (no date) (unknown) (unknown) Pulse Rate 81 (units unknown) (unknown) (unknown) (no date) (unknown) (unknown) Pulse Rate 85 (units unknown) (unknown) (unknown) (no date) (unknown) (unknown) Pulse Rate 87 87 (units unknown) (unknown) (unknown) (no date) (unknown) (unknown) Pulse Rate 95 H 01/14/23 10:22 (units unknown) (unknown) (unknown) (no date) (unknown) (unknown) Pulse Rate 95 H 94 H 87 (units unknown) (unknown) (unknown) (no date) (unknown) (unknown) Pulse Rate 96 H 83 (units unknown) (unknown) (unknown) (no date) (unknown) (unknown) Pulse Rate 97 H 97 H (units unknown) (unknown) (unknown) (no date) (unknown) (unknown) RBC (4.5-5.9) X106/uL (units unknown) (unknown) (unknown) (no date) (unknown) (unknown) RBC 3.80 L (4.5-5.9) X106/uL (units unknown) (unknown) (unknown) (no date) (unknown) (unknown) RDW (11.6-14.8) % (units unknown) (unknown) (unknown) (no date) (unknown) (unknown) RDW 13.2 (11.6-14.8) % (units unknown) (unknown) (unknown) (no date) (unknown) (unknown) RESP: Chest is nontender and has symmetric movement, no ecchymosis, breath (units unknown) (unknown) (unknown) (no date) (unknown) (unknown) Related Data (units unknown) (unknown) (unknown) (no date) (unknown) (unknown) Respiratory Rate 10 L (units unknown) (unknown) (unknown) (no date) (unknown) (unknown) Respiratory Rate 13 11 L (units unknown) (unknown) (unknown) (no date) (unknown) (unknown) Respiratory Rate 13 13 (units unknown) (unknown) (unknown) (no date) (unknown) (unknown) Respiratory Rate 13 (units unknown) (unknown) (unknown) (no date) (unknown) (unknown) Respiratory Rate 14 14 (units unknown) (unknown) (unknown) (no date) (unknown) (unknown) Respiratory Rate 14 (units unknown) (unknown) (unknown) (no date) (unknown) (unknown) Respiratory Rate 15 (units unknown) (unknown) (unknown) (no date) (unknown) (unknown) Respiratory Rate 18 01/14/23 10:22 (units unknown) (unknown) (unknown) (no date) (unknown) (unknown) Respiratory Rate 18 12 14 (units unknown) (unknown) (unknown) (no date) (unknown) (unknown) Respiratory Rate 19 (units unknown) (unknown) (unknown) (no date) (unknown) (unknown) Respiratory Rate 20 (units unknown) (unknown) (unknown) (no date) (unknown) (unknown) Respiratory Rate 8 L (units unknown) (unknown) (unknown) (no date) (unknown) (unknown) Respiratory Rate (units unknown) (unknown) (unknown) (no date) (unknown) (unknown) Review of Systems (units unknown) (unknown) (unknown) (no date) (unknown) (unknown) Rx Instructions: (units unknown) (unknown) (unknown) (no date) (unknown) (unknown) SARS-CoV-2 (PCR) (Negative) (units unknown) (unknown) (unknown) (no date) (unknown) (unknown) SARS-CoV-2 (PCR) Negative (Negative) (units unknown) (unknown) (unknown) (no date) (unknown) (unknown) SKIN: Patient has a small 2 cm burn on his right forearm that has blistered and (units unknown) (unknown) (unknown) (no date) (unknown) (unknown) See Rx Instructions .ROUTE .COMPLEX (units unknown) (unknown) (unknown) (no date) (unknown) (unknown) Signed By: (units unknown) (unknown) (unknown) (no date) (unknown) (unknown) Smoking Status: Milagro huang smoker (units unknown) (unknown) (unknown) (no date) (unknown) (unknown) Social History (units unknown) (unknown) (unknown) (no date) (unknown) (unknown) Sodium (137-145) mmol/L (units unknown) (unknown) (unknown) (no date) (unknown) (unknown) Sodium 140 (137-145) mmol/L (units unknown) (unknown) (unknown) (no date) (unknown) (unknown) Solostar U-100 Insulin) (units unknown) (unknown) (unknown) (no date) (unknown) (unknown) Solu-Medrol as he wa s felt stable. CT imaging of the brain shows soft tissue (units unknown) (unknown) (unknown) (no date) (unknown) (unknown) Source: patient, EMS , RN notes reviewed and old records reviewed (units unknown) (unknown) (unknown) (no date) (unknown) (unknown) Stated Complaint: Trauma (units unknown) (unknown) (unknown) (no date) (unknown) (unknown) Stop: 01/14/23 10:27 (units unknown) (unknown) (unknown) (no date) (unknown) (unknown) Stop: 01/14/23 10:29 (units unknown) (unknown) (unknown) (no date) (unknown) (unknown) Stop: 01/14/23 10:58 (units unknown) (unknown) (unknown) (no date) (unknown) (unknown) Stop: 01/14/23 13:43 (units unknown) (unknown) (unknown) (no date) (unknown) (unknown) Stop: 01/14/23 14:19 (units unknown) (unknown) (unknown) (no date) (unknown) (unknown) Stop: 01/14/23 17:53 (units unknown) (unknown) (unknown) (no date) (unknown) (unknown) Substance Use Type: does not use (units unknown) (unknown) (unknown) (no date) (unknown) (unknown) Suicidal ideation, Alcohol abuse, Facial laceration (units unknown) (unknown) (unknown) (no date) (unknown) (unknown) Syringe) 0.5 ml IM .ONCE ONE (units unknown) (unknown) (unknown) (no date) (unknown) (unknown) TAKE 1 CAPSULE BY MOUTH DAILY (units unknown) (unknown) (unknown) (no date) (unknown) (unknown) TAKE 1 TABLET BY MOUTH EVERY EVENING (units unknown) (unknown) (unknown) (no date) (unknown) (unknown) TAKE 1 TABLET BY MOUTH EVERY MORNING (units unknown) (unknown) (unknown) (no date) (unknown) (unknown) Take 1 tablet by mouth twice a day (units unknown) (unknown) (unknown) (no date) (unknown) (unknown) Temperature 97.4 F L 01/14/23 10:22 (units unknown) (unknown) (unknown) (no date) (unknown) (unknown) Temperature 97.4 F L (units unknown) (unknown) (unknown) (no date) (unknown) (unknown) Temperature (units unknown) (unknown) (unknown) (no date) (unknown) (unknown) They also note that they were called out for a wellness check yesterday they (units unknown) (unknown) (unknown) (no date) (unknown) (unknown) This is a 53-year-ol d male who appears intoxicated, he does have scabbing with a (units unknown) (unknown) (unknown) (no date) (unknown) (unknown) This is a 53-year-ol d male with known history of alcohol abuse, insulin (units unknown) (unknown) (unknown) (no date) (unknown) (unknown) Time Seen by Provider: 01/14/23 10:26 (units unknown) (unknown) (unknown) (no date) (unknown) (unknown) To sleep sinus rhyth m rate of 72 OH 130 QRS of 98 QTC [address]. No acute ST (units unknown) (unknown) (unknown) (no date) (unknown) (unknown) Total Bilirubin (0.2-1.3) mg/dL (units unknown) (unknown) (unknown) (no date) (unknown) (unknown) Total Bilirubin 0.4 (0.2-1.3) mg/dL (units unknown) (unknown) (unknown) (no date) (unknown) (unknown) Total Protein (6.3-8.2) g/dL (units unknown) (unknown) (unknown) (no date) (unknown) (unknown) Total Protein 7.2 (6.3-8.2) g/dL (units unknown) (unknown) (unknown) (no date) (unknown) (unknown) Tylenol her headache and phenobarb 260 for alcohol withdrawal patient has not (units unknown) (unknown) (unknown) (no date) (unknown) (unknown) Type and Screen Stat (units unknown) (unknown) (unknown) (no date) (unknown) (unknown) U Benzodiazepines Scrn (Negative) (units unknown) (unknown) (unknown) (no date) (unknown) (unknown) U Benzodiazepines Scrn Positive H (Negative) (units unknown) (unknown) (unknown) (no date) (unknown) (unknown) U Marijuana (THC) Screen (Negative) (units unknown) (unknown) (unknown) (no date) (unknown) (unknown) U Marijuana (THC) Screen Negative (Negative) (units unknown) (unknown) (unknown) (no date) (unknown) (unknown) U Methamphetamines Scrn (Negative) (units unknown) (unknown) (unknown) (no date) (unknown) (unknown) U Methamphetamines Scrn Negative (Negative) (units unknown) (unknown) (unknown) (no date) (unknown) (unknown) U Opiates 300ng/mL cut (Negative) (units unknown) (unknown) (unknown) (no date) (unknown) (unknown) U Opiates 300ng/mL cut Positive H (Negative) (units unknown) (unknown) (unknown) (no date) (unknown) (unknown) U Tricyclic Antidepress (Negative) (units unknown) (unknown) (unknown) (no date) (unknown) (unknown) U Tricyclic Antidepress Negative (Negative) (units unknown) (unknown) (unknown) (no date) (unknown) (unknown) Ur Amphetamines Screen (Negative) (units unknown) (unknown) (unknown) (no date) (unknown) (unknown) Ur Amphetamines Screen Negative (Negative) (units unknown) (unknown) (unknown) (no date) (unknown) (unknown) Ur Barbiturates Screen (Negative) (units unknown) (unknown) (unknown) (no date) (unknown) (unknown) Ur Barbiturates Screen Negative (Negative) (units unknown) (unknown) (unknown) (no date) (unknown) (unknown) Ur Culture Indicated ? Cult not indicated (units unknown) (unknown) (unknown) (no date) (unknown) (unknown) Ur Culture Indicated? (units unknown) (unknown) (unknown) (no date) (unknown) (unknown) Ur Leukocyte Esteras e (NEGATIVE) (units unknown) (unknown) (unknown) (no date) (unknown) (unknown) Ur Leukocyte Esteras e Negative (NEGATIVE) (units unknown) (unknown) (unknown) (no date) (unknown) (unknown) Ur MDMA Scrn (Ecstasy) (Negative) (units unknown) (unknown) (unknown) (no date) (unknown) (unknown) Ur MDMA Scrn (Ecstasy) Negative (Negative) (units unknown) (unknown) (unknown) (no date) (unknown) (unknown) Ur Oxycodone Screen (Negative) (units unknown) (unknown) (unknown) (no date) (unknown) (unknown) Ur Oxycodone Screen Negative (Negative) (units unknown) (unknown) (unknown) (no date) (unknown) (unknown) Ur Phencyclidine Scr n (Negative) (units unknown) (unknown) (unknown) (no date) (unknown) (unknown) Ur Phencyclidine Scr n Negative (Negative) (units unknown) (unknown) (unknown) (no date) (unknown) (unknown) Ur Specific [place] (1.000-1.035) (units unknown) (unknown) (unknown) (no date) (unknown) (unknown) Ur Specific [place] 1.010 (1.000-1.035) (units unknown) (unknown) (unknown) (no date) (unknown) (unknown) Urinalysis and Microscopic Stat (units unknown) (unknown) (unknown) (no date) (unknown) (unknown) Urine Appearance Clear (units unknown) (unknown) (unknown) (no date) (unknown) (unknown) Urine Appearance (units unknown) (unknown) (unknown) (no date) (unknown) (unknown) Urine Bacteria (None) (units unknown) (unknown) (unknown) (no date) (unknown) (unknown) Urine Bacteria None seen (None) (units unknown) (unknown) (unknown) (no date) (unknown) (unknown) Urine Bilirubin (NEGATIVE) (units unknown) (unknown) (unknown) (no date) (unknown) (unknown) Urine Bilirubin Negative (NEGATIVE) (units unknown) (unknown) (unknown) (no date) (unknown) (unknown) Urine Cocaine Screen (Negative) (units unknown) (unknown) (unknown) (no date) (unknown) (unknown) Urine Cocaine Screen Negative (Negative) (units unknown) (unknown) (unknown) (no date) (unknown) (unknown) Urine Color Yellow (units unknown) (unknown) (unknown) (no date) (unknown) (unknown) Urine Color (units unknown) (unknown) (unknown) (no date) (unknown) (unknown) Urine Drug Screen, Rapid Stat (units unknown) (unknown) (unknown) (no date) (unknown) (unknown) Urine Glucose (UA) (Negative) g/dL (units unknown) (unknown) (unknown) (no date) (unknown) (unknown) Urine Glucose (UA) 2 + H (Negative) g/dL (units unknown) (unknown) (unknown) (no date) (unknown) (unknown) Urine Ketones (NEGATIVE) (units unknown) (unknown) (unknown) (no date) (unknown) (unknown) Urine Ketones Negative (NEGATIVE) (units unknown) (unknown) (unknown) (no date) (unknown) (unknown) Urine Methadone Screen (Negative) (units unknown) (unknown) (unknown) (no date) (unknown) (unknown) Urine Methadone Screen Negative (Negative) (units unknown) (unknown) (unknown) (no date) (unknown) (unknown) Urine Nitrate (Negative) (units unknown) (unknown) (unknown) (no date) (unknown) (unknown) Urine Nitrate Negative (Negative) (units unknown) (unknown) (unknown) (no date) (unknown) (unknown) Urine Occult Blood (Negative) (units unknown) (unknown) (unknown) (no date) (unknown) (unknown) Urine Occult Blood Negative (Negative) (units unknown) (unknown) (unknown) (no date) (unknown) (unknown) Urine Protein (Negative) (units unknown) (unknown) (unknown) (no date) (unknown) (unknown) Urine Protein Negative (Negative) (units unknown) (unknown) (unknown) (no date) (unknown) (unknown) Urine RBC (0-5/HPF) (units unknown) (unknown) (unknown) (no date) (unknown) (unknown) Urine RBC None seen (0-5/HPF) (units unknown) (unknown) (unknown) (no date) (unknown) (unknown) Urine Urobilinogen (0.2) E.U./dL (units unknown) (unknown) (unknown) (no date) (unknown) (unknown) Urine Urobilinogen 1.0 (0.2) E.U./dL (units unknown) (unknown) (unknown) (no date) (unknown) (unknown) Urine WBC (0-5/HPF) (units unknown) (unknown) (unknown) (no date) (unknown) (unknown) Urine WBC None seen (0-5/HPF) (units unknown) (unknown) (unknown) (no date) (unknown) (unknown) Urine pH (4.5-8.0) (units unknown) (unknown) (unknown) (no date) (unknown) (unknown) Urine pH 6.5 (4.5-8.0) (units unknown) (unknown) (unknown) (no date) (unknown) (unknown) Vital Signs - 8 hr (units unknown) (unknown) (unknown) (no date) (unknown) (unknown) Vital Signs (units unknown) (unknown) (unknown) (no date) (unknown) (unknown) Vital signs: (units unknown) (unknown) (unknown) (no date) (unknown) (unknown) WAS (units unknown) (unknown) (unknown) (no date) (unknown) (unknown) WBC (4.5-11.0) X103/uL (units unknown) (unknown) (unknown) (no date) (unknown) (unknown) WBC 4.3 L (4.5-11.0) X103/uL (units unknown) (unknown) (unknown) (no date) (unknown) (unknown) XR chest 1V Stat (units unknown) (unknown) (unknown) (no date) (unknown) (unknown) XR pelvis 1-2V Stat (units unknown) (unknown) (unknown) (no date) (unknown) (unknown) [Embedded Image Not Available] (units unknown) (unknown) (unknown) (no date) (unknown) (unknown) [From BETADINE] FEEL S LIKE (units unknown) (unknown) (unknown) (no date) (unknown) (unknown) [SHELLFISH DERIVED] LIKE IT (units unknown) (unknown) (unknown) (no date) (unknown) (unknown) a small burn on his right forearm and he has bruising his girlfriend told medics (units unknown) (unknown) (unknown) (no date) (unknown) (unknown) abdomen pelvis there was some delay as it was found patient has reported allergy (units unknown) (unknown) (unknown) (no date) (unknown) (unknown) alcohol intake frequency: 0-2 drinks per day (units unknown) (unknown) (unknown) (no date) (unknown) (unknown) and when asked he states he does want to kill himself when asked why he does not (units unknown) (unknown) (unknown) (no date) (unknown) (unknown) answer. When asked i f he has a plan he does not give one. Medics a girlfriend (units unknown) (unknown) (unknown) (no date) (unknown) (unknown) anything amiss in e house but he had been found on the ground in the bathroom. (units unknown) (unknown) (unknown) (no date) (unknown) (unknown) appears older with healing skin underneath, warm and dry, no crepitus and (units unknown) (unknown) (unknown) (no date) (unknown) (unknown) are 8788 and 146 wit h a negative bilirubin and lipase of 109. EKG shows a sinus (units unknown) (unknown) (unknown) (no date) (unknown) (unknown) arrived. (units unknown) (unknown) (unknown) (no date) (unknown) (unknown) atorvastatin 40 mg tablet 40 mg PO BEDTIME 01/14/23 01/14/23 (units unknown) (unknown) (unknown) (no date) (unknown) (unknown) atorvastatin 40 mg tablet (units unknown) (unknown) (unknown) (no date) (unknown) (unknown) been tachycardic since then, no hypertension. Patient did receive a dose of IV (units unknown) (unknown) (unknown) (no date) (unknown) (unknown) chest and abdomen although it appears little bit older, and he has a burn on his (units unknown) (unknown) (unknown) (no date) (unknown) (unknown) chest, right upper abdomen and right lower abdomen. (units unknown) (unknown) (unknown) (no date) (unknown) (unknown) ction at baseline at 0.42 normal electrolytes glucose is 254, AST ALT alk-phos (units unknown) (unknown) (unknown) (no date) (unknown) (unknown) currently voluntary seeking dual treatment. (units unknown) (unknown) (unknown) (no date) (unknown) (unknown) dependent diabetes and chronic pain with a pain pump in his left abdomen. Patie (units unknown) (unknown) (unknown) (no date) (unknown) (unknown) dextroamphetamine-am p hetamine 20 20 mg PO BID 01/14/23 01/14/23 (units unknown) (unknown) (unknown) (no date) (unknown) (unknown) dextroamphetamine-am p hetamine 20 mg tablet (units unknown) (unknown) (unknown) (no date) (unknown) (unknown) do his injections which he states are insulin. He states he has a pain pump in (units unknown) (unknown) (unknown) (no date) (unknown) (unknown) drinks at least a 5t h daily, he denies tobacco or illicit. He states he did not (units unknown) (unknown) (unknown) (no date) (unknown) (unknown) elevation or depression. (units unknown) (unknown) (unknown) (no date) (unknown) (unknown) eptal hematoma, no dental or oral injury, airway is normal and with normal (units unknown) (unknown) (unknown) (no date) (unknown) (unknown) found blood in a different location but the patient was not present at that (units unknown) (unknown) (unknown) (no date) (unknown) (unknown) furosemide 20 mg tablet 20 mg PO DAILY 01/14/23 01/14/23 (units unknown) (unknown) (unknown) (no date) (unknown) (unknown) furosemide 20 mg tablet (units unknown) (unknown) (unknown) (no date) (unknown) (unknown) gape, trachea is midline, TM's are normal no hemotypanum, Nares are clear, no s (units unknown) (unknown) (unknown) (no date) (unknown) (unknown) ground there was reportedly some glass at the scene and the medics state that (units unknown) (unknown) (unknown) (no date) (unknown) (unknown) his alcohol should b e around 100 around 1845. Patient does have some suicidal (units unknown) (unknown) (unknown) (no date) (unknown) (unknown) his belly. He did make statements that he wanted to kill himself to the medics (units unknown) (unknown) (unknown) (no date) (unknown) (unknown) injuries with chest and abdominal bruising, with CT head, C-spine and chest (units unknown) (unknown) (unknown) (no date) (unknown) (unknown) injury over the supe r to right orbit/right frontal bone with a small hematoma. (units unknown) (unknown) (unknown) (no date) (unknown) (unknown) injury, altered mental status, neuro deficit, positive for recent EtOH. (units unknown) (unknown) (unknown) (no date) (unknown) (unknown) insulin glargine 100 unit/mL (3 20 unit SUBCUT BEDTIME 01/14/23 01/14/23 (units unknown) (unknown) (unknown) (no date) (unknown) (unknown) insulin glargine [Lantus Solostar U-100 Insulin] 100 unit/mL (3 mL) insulin (units unknown) (unknown) (unknown) (no date) (unknown) (unknown) insulin lispro 100 unit/mL See Rx Instructions .Route .COMPLEX 01/14/23 01/14/23 (units unknown) (unknown) (unknown) (no date) (unknown) (unknown) insulin lispro [Humalog KwikPen Insulin] 100 unit/mL insulin pen (units unknown) (unknown) (unknown) (no date) (unknown) (unknown) last saw the patient on she noted that he bought a bottle of hard (units unknown) (unknown) (unknown) (no date) (unknown) (unknown) leave. 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 as he has been otherwise medically cleared (units unknown) (unknown) (unknown) (no date) (unknown) (unknown) left scapular and L1-L2 transverse process fractures, small hiatal hernia and (units unknown) (unknown) (unknown) (no date) (unknown) (unknown) liquor at that time and there was only about a few mL left today when EMS (units unknown) (unknown) (unknown) (no date) (unknown) (unknown) lorazepam when he initially came as patient was a little agitated and trying to (units unknown) (unknown) (unknown) (no date) (unknown) (unknown) losartan 100 mg tablet 100 mg PO DAILY 01/14/23 01/14/23 (units unknown) (unknown) (unknown) (no date) (unknown) (unknown) losartan 100 mg tablet (units unknown) (unknown) (unknown) (no date) (unknown) (unknown) mL) subcutaneous pen (Lantus (units unknown) (unknown) (unknown) (no date) (unknown) (unknown) medications or prolong his QT. He has a prior in the past and had a 449 QTC. (units unknown) (unknown) (unknown) (no date) (unknown) (unknown) mg tablet (units unknown) (unknown) (unknown) (no date) (unknown) (unknown) moving all his extremities well. Is conversant but confused. Patient states he (units unknown) (unknown) (unknown) (no date) (unknown) (unknown) normal color and temperature, normal range of motion of extremities with normal (units unknown) (unknown) (unknown) (no date) (unknown) (unknown) nt states he does no t know who he is aware he is. He is able to give his name (units unknown) (unknown) (unknown) (no date) (unknown) (unknown) obtained is unclear what exactly occurred. Patient was called out as a modified (units unknown) (unknown) (unknown) (no date) (unknown) (unknown) occlusion, No bony tenderness (units unknown) (unknown) (unknown) (no date) (unknown) (unknown) pelvic rock is negative, patient has device in the left lateral abdomen. (units unknown) (unknown) (unknown) (no date) (unknown) (unknown) pen (units unknown) (unknown) (unknown) (no date) (unknown) (unknown) penicillin G [PENICILLIN G] Allergy Unknown LEFT EAR Verified 07/27/18 10:10 (units unknown) (unknown) (unknown) (no date) (unknown) (unknown) povidone-iodine Allergy Unknown 'SKIN Verified 07/27/18 10:10 (units unknown) (unknown) (unknown) (no date) (unknown) (unknown) propranolol 20 mg tablet 20 mg PO BID 01/14/23 01/14/23 (units unknown) (unknown) (unknown) (no date) (unknown) (unknown) propranolol 20 mg tablet (units unknown) (unknown) (unknown) (no date) (unknown) (unknown) redirectable althoug h he keeps saying he wants to get out of the bed. He has (units unknown) (unknown) (unknown) (no date) (unknown) (unknown) rhythm no acute ST changes. Initial chest x-ray and pelvic x-ray is negative. (units unknown) (unknown) (unknown) (no date) (unknown) (unknown) right forearm that also appears little bit older. Patient was found on the (units unknown) (unknown) (unknown) (no date) (unknown) (unknown) seeking placement bu t currently voluntary. (units unknown) (unknown) (unknown) (no date) (unknown) (unknown) shellfish derived Allergy Unknown 'SKIN FELT Verified 07/27/18 10:10 (units unknown) (unknown) (unknown) (no date) (unknown) (unknown) shows no acute traumatic injury, remote left-sided rib fractures with remote (units unknown) (unknown) (unknown) (no date) (unknown) (unknown) soap [From BETADINE] Allergy Unknown 'SKIN Verified 07/27/18 10:10 (units unknown) (unknown) (unknown) (no date) (unknown) (unknown) some blood at the scene in a different location. Patient had labs, imaging (units unknown) (unknown) (unknown) (no date) (unknown) (unknown) some broken glass, medics state the glass was cleaned up they did not see (units unknown) (unknown) (unknown) (no date) (unknown) (unknown) sounds are normal no crackles, wheezes or rales (units unknown) (unknown) (unknown) (no date) (unknown) (unknown) speech appears intoxicated but is conversant. (units unknown) (unknown) (unknown) (no date) (unknown) (unknown) stable lung nodules measuring 6 mm. (units unknown) (unknown) (unknown) (no date) (unknown) (unknown) subcutaneous pen (Humalog KwikPen (units unknown) (unknown) (unknown) (no date) (unknown) (unknown) superficial lack of the right forehead, he has some bruising of his anterior (units unknown) (unknown) (unknown) (no date) (unknown) (unknown) tamsulosin 0.4 mg capsule 0.4 mg PO DAILY 01/14/23 01/14/23 (units unknown) (unknown) (unknown) (no date) (unknown) (unknown) tamsulosin 0.4 mg capsule (units unknown) (unknown) (unknown) (no date) (unknown) (unknown) tendon exam, 2+ pulses in all four extremities (units unknown) (unknown) (unknown) (no date) (unknown) (unknown) that is bruising on his left abdomen is from injections but onto his chest and (units unknown) (unknown) (unknown) (no date) (unknown) (unknown) they wanted less kitty n 450 repeat is 497. Patient had Benadryl but no other (units unknown) (unknown) (unknown) (no date) (unknown) (unknown) they were there the day before patient was not present at home but there was (units unknown) (unknown) (unknown) (no date) (unknown) (unknown) thoughts no clear active clot described to myself. That was social work (units unknown) (unknown) (unknown) (no date) (unknown) (unknown) time. Patient does not recall what trauma occurred. The somewhat repetitive. (units unknown) (unknown) (unknown) (no date) (unknown) (unknown) to iodine which he did not tell us earlier. Was pretreated with Benadryl and (units unknown) (unknown) (unknown) (no date) (unknown) (unknown) trauma. (units unknown) (unknown) (unknown) (no date) (unknown) (unknown) upper abdomen she is unsure. Patient was found at home in the bathroom with (units unknown) (unknown) (unknown) (no date) (unknown) (unknown) what appears to be scabbed superficial laceration over his right forehead he has (units unknown) (unknown) (unknown) (no date) (unknown) (unknown) when he is registered. Patient is confused but follows commands he is (units unknown) (unknown) (unknown) (no date) (unknown) (unknown) without decubitus. Patient has ecchymosis that is about 4 cm on his anterior (units unknown) (unknown) Result panel 231 (unknown) (no date) (unknown) (unknown) (no value) (units unknown) (unknown) (unknown) (no date) (unknown) (unknown) (U-100) Insulin) (units unknown) (unknown) (unknown) (no date) (unknown) (unknown) 0.4 mg PO DAILY (units unknown) (unknown) (unknown) (no date) (unknown) (unknown) [id number] (units unknown) (unknown) (unknown) (no date) (unknown) (unknown) 01/14/23 01/14/23 01/14/23 Range/Units (units unknown) (unknown) (unknown) (no date) (unknown) (unknown) 01/14/23 10:27 (units unknown) (unknown) (unknown) (no date) (unknown) (unknown) 01/14/23 10:29 (units unknown) (unknown) (unknown) (no date) (unknown) (unknown) 01/14/23 10:35 (units unknown) (unknown) (unknown) (no date) (unknown) (unknown) 01/14/23 10:45 (units unknown) (unknown) (unknown) (no date) (unknown) (unknown) 01/14/23 11:17 (units unknown) (unknown) (unknown) (no date) (unknown) (unknown) 01/14/23 11:23 (units unknown) (unknown) (unknown) (no date) (unknown) (unknown) 01/14/23 14:09 (units unknown) (unknown) (unknown) (no date) (unknown) (unknown) 01/14/23 15:25 (units unknown) (unknown) (unknown) (no date) (unknown) (unknown) 01/14/23 17:01 (units unknown) (unknown) (unknown) (no date) (unknown) (unknown) 01/14/23 18:04 (units unknown) (unknown) (unknown) (no date) (unknown) (unknown) 01/14/23 (units unknown) (unknown) (unknown) (no date) (unknown) (unknown) 100 mg PO DAILY (units unknown) (unknown) (unknown) (no date) (unknown) (unknown) 10:22 01/14/23 (units unknown) (unknown) (unknown) (no date) (unknown) (unknown) 10:25 01/14/23 (units unknown) (unknown) (unknown) (no date) (unknown) (unknown) 10:30 (units unknown) (unknown) (unknown) (no date) (unknown) (unknown) 10:32 01/14/23 (units unknown) (unknown) (unknown) (no date) (unknown) (unknown) 10:45 10:45 10:45 (units unknown) (unknown) (unknown) (no date) (unknown) (unknown) 10:45 11:23 13:48 (units unknown) (unknown) (unknown) (no date) (unknown) (unknown) 11:00 (units unknown) (unknown) (unknown) (no date) (unknown) (unknown) 11:24 01/14/23 (units unknown) (unknown) (unknown) (no date) (unknown) (unknown) 11:30 (units unknown) (unknown) (unknown) (no date) (unknown) (unknown) 11:31 01/14/23 (units unknown) (unknown) (unknown) (no date) (unknown) (unknown) 11:50 01/14/23 (units unknown) (unknown) (unknown) (no date) (unknown) (unknown) 11:50 (units unknown) (unknown) (unknown) (no date) (unknown) (unknown) 12:05 01/14/23 (units unknown) (unknown) (unknown) (no date) (unknown) (unknown) 12:05 (units unknown) (unknown) (unknown) (no date) (unknown) (unknown) 12:15 01/14/23 (units unknown) (unknown) (unknown) (no date) (unknown) (unknown) 12:30 01/14/23 (units unknown) (unknown) (unknown) (no date) (unknown) (unknown) 12:30 (units unknown) (unknown) (unknown) (no date) (unknown) (unknown) 12:45 01/14/23 (units unknown) (unknown) (unknown) (no date) (unknown) (unknown) 12:45 (units unknown) (unknown) (unknown) (no date) (unknown) (unknown) 13:00 01/14/23 (units unknown) (unknown) (unknown) (no date) (unknown) (unknown) 13:01 01/14/23 (units unknown) (unknown) (unknown) (no date) (unknown) (unknown) 13:01 (units unknown) (unknown) (unknown) (no date) (unknown) (unknown) 13:15 01/14/23 (units unknown) (unknown) (unknown) (no date) (unknown) (unknown) 13:30 01/14/23 (units unknown) (unknown) (unknown) (no date) (unknown) (unknown) 13:30 (units unknown) (unknown) (unknown) (no date) (unknown) (unknown) 13:49 01/14/23 (units unknown) (unknown) (unknown) (no date) (unknown) (unknown) 13:49 (units unknown) (unknown) (unknown) (no date) (unknown) (unknown) 14:00 01/14/23 (units unknown) (unknown) (unknown) (no date) (unknown) (unknown) 14:09 14:09 15:25 (units unknown) (unknown) (unknown) (no date) (unknown) (unknown) 14:26 01/14/23 (units unknown) (unknown) (unknown) (no date) (unknown) (unknown) 14:26 (units unknown) (unknown) (unknown) (no date) (unknown) (unknown) 14:30 01/14/23 (units unknown) (unknown) (unknown) (no date) (unknown) (unknown) 15:00 (units unknown) (unknown) (unknown) (no date) (unknown) (unknown) 15:02 01/14/23 (units unknown) (unknown) (unknown) (no date) (unknown) (unknown) 15:30 (units unknown) (unknown) (unknown) (no date) (unknown) (unknown) 16:00 01/14/23 (units unknown) (unknown) (unknown) (no date) (unknown) (unknown) 16:30 01/14/23 (units unknown) (unknown) (unknown) (no date) (unknown) (unknown) 16:30 (units unknown) (unknown) (unknown) (no date) (unknown) (unknown) 17:00 01/14/23 (units unknown) (unknown) (unknown) (no date) (unknown) (unknown) 17:00 (units unknown) (unknown) (unknown) (no date) (unknown) (unknown) 17:30 01/14/23 (units unknown) (unknown) (unknown) (no date) (unknown) (unknown) 18:00 (units unknown) (unknown) (unknown) (no date) (unknown) (unknown) 20 mg PO BID (units unknown) (unknown) (unknown) (no date) (unknown) (unknown) 20 mg PO DAILY (units unknown) (unknown) (unknown) (no date) (unknown) (unknown) 20 unit SUBCUT BEDTIME (units unknown) (unknown) (unknown) (no date) (unknown) (unknown) 2016 white count of 4.3 normal platelets at 296. Coags are negative, renal fun (units unknown) (unknown) (unknown) (no date) (unknown) (unknown) 4 extremities moving , cranial nerves II through XII are intact, GCS is 15 (units unknown) (unknown) (unknown) (no date) (unknown) (unknown) 40 mg PO BEDTIME (units unknown) (unknown) (unknown) (no date) (unknown) (unknown) ABG/GI: Nontender, soft, normal bowel sounds, no distention, no organomegaly, (units unknown) (unknown) (unknown) (no date) (unknown) (unknown) ADMINISTER 2 TO 10 UNITS UNDER THE SKIN BEFORE MEALS AND AT BEDTIME (units unknown) (unknown) (unknown) (no date) (unknown) (unknown) ADMINISTER 20 UNITS UNDER THE SKIN EVERY EVENING (units unknown) (unknown) (unknown) (no date) (unknown) (unknown) AGE 12YR (units unknown) (unknown) (unknown) (no date) (unknown) (unknown) ALT (<50) IU/L (units unknown) (unknown) (unknown) (no date) (unknown) (unknown) ALT 88 H (<50) IU/L (units unknown) (unknown) (unknown) (no date) (unknown) (unknown) APTT (26-36) SECONDS (units unknown) (unknown) (unknown) (no date) (unknown) (unknown) APTT 34 (26-36) SECONDS (units unknown) (unknown) (unknown) (no date) (unknown) (unknown) AST (17-59) IU/L (units unknown) (unknown) (unknown) (no date) (unknown) (unknown) AST 87 H (17-59) IU/L (units unknown) (unknown) (unknown) (no date) (unknown) (unknown) Acetaminophen (Acetaminophen 325 Mg Tablet) 650 mg PO NOW ONE (units unknown) (unknown) (unknown) (no date) (unknown) (unknown) Age/Sex: 53 / M (units unknown) (unknown) (unknown) (no date) (unknown) (unknown) Albumin (3.5-5.0) g/dL (units unknown) (unknown) (unknown) (no date) (unknown) (unknown) Albumin 4.0 (3.5-5.0 ) g/dL (units unknown) (unknown) (unknown) (no date) (unknown) (unknown) Albumin/Globulin Ratio (1.0-2.8) (units unknown) (unknown) (unknown) (no date) (unknown) (unknown) Albumin/Globulin Ratio 1.3 (1.0-2.8) (units unknown) (unknown) (unknown) (no date) (unknown) (unknown) Alkaline Phosphatase (38-126) U/L (units unknown) (unknown) (unknown) (no date) (unknown) (unknown) Alkaline Phosphatase 146 H (38-126) U/L (units unknown) (unknown) (unknown) (no date) (unknown) (unknown) Allergies (units unknown) (unknown) (unknown) (no date) (unknown) (unknown) Allergy/AdvReac Type Severity Reaction Status Date / Time (units unknown) (unknown) (unknown) (no date) (unknown) (unknown) Another facility is evaluating the patient. Patient signed out to Dr. Dewey, (units unknown) (unknown) (unknown) (no date) (unknown) (unknown) Antibody Screen Negative (units unknown) (unknown) (unknown) (no date) (unknown) (unknown) Antibody Screen (units unknown) (unknown) (unknown) (no date) (unknown) (unknown) Attestation: I personally reviewed and interpreted this ECG as follows: (units unknown) (unknown) (unknown) (no date) (unknown) (unknown) BACK: No CVA tenderness, no vertebral tenderness, no step-off's, no crepitus (units unknown) (unknown) (unknown) (no date) (unknown) (unknown) BUN (9-20) mg/dL (units unknown) (unknown) (unknown) (no date) (unknown) (unknown) BUN 8 L (9-20) mg/dL (units unknown) (unknown) (unknown) (no date) (unknown) (unknown) BUN/Creatinine Ratio (6-22) (units unknown) (unknown) (unknown) (no date) (unknown) (unknown) BUN/Creatinine Ratio 19.0 (6-22) (units unknown) (unknown) (unknown) (no date) (unknown) (unknown) BURNING' (units unknown) (unknown) (unknown) (no date) (unknown) (unknown) Baso # (Auto) (0-100 ) /uL (units unknown) (unknown) (unknown) (no date) (unknown) (unknown) Baso # (Auto) 100 (0-100) /uL (units unknown) (unknown) (unknown) (no date) (unknown) (unknown) Baso % (Auto) (0-2) % (units unknown) (unknown) (unknown) (no date) (unknown) (unknown) Baso % (Auto) 1.4 (0-2) % (units unknown) (unknown) (unknown) (no date) (unknown) (unknown) Blood Pressure 113/5 6 L (units unknown) (unknown) (unknown) (no date) (unknown) (unknown) Blood Pressure 121/7 3 130/82 (units unknown) (unknown) (unknown) (no date) (unknown) (unknown) Blood Pressure 133/9 2 H (units unknown) (unknown) (unknown) (no date) (unknown) (unknown) Blood Pressure 135/8 8 144/96 H (units unknown) (unknown) (unknown) (no date) (unknown) (unknown) Blood Pressure 137/7 2 106/52 L (units unknown) (unknown) (unknown) (no date) (unknown) (unknown) Blood Pressure 146/8 2 H (units unknown) (unknown) (unknown) (no date) (unknown) (unknown) Blood Pressure 146/9 0 H (units unknown) (unknown) (unknown) (no date) (unknown) (unknown) Blood Pressure 148/9 1 H 137/84 (units unknown) (unknown) (unknown) (no date) (unknown) (unknown) Blood Pressure 149/9 4 H 01/14/23 10:22 (units unknown) (unknown) (unknown) (no date) (unknown) (unknown) Blood Pressure 149/9 4 H (units unknown) (unknown) (unknown) (no date) (unknown) (unknown) Blood Pressure 151/8 7 H (units unknown) (unknown) (unknown) (no date) (unknown) (unknown) Blood Pressure 155/9 7 H (units unknown) (unknown) (unknown) (no date) (unknown) (unknown) Blood Pressure 160/9 7 H (units unknown) (unknown) (unknown) (no date) (unknown) (unknown) Blood Pressure 163/8 8 H (units unknown) (unknown) (unknown) (no date) (unknown) (unknown) Blood Pressure 164/106 H 141/98 H (units unknown) (unknown) (unknown) (no date) (unknown) (unknown) Blood Pressure 172/8 8 H (units unknown) (unknown) (unknown) (no date) (unknown) (unknown) Blood Pressure 181/9 5 H (units unknown) (unknown) (unknown) (no date) (unknown) (unknown) Blood Pressure (units unknown) (unknown) (unknown) (no date) (unknown) (unknown) Blood Type O Positive (units unknown) (unknown) (unknown) (no date) (unknown) (unknown) Blood Type (units unknown) (unknown) (unknown) (no date) (unknown) (unknown) COVID19 -Nasal RAPID Stat (units unknown) (unknown) (unknown) (no date) (unknown) (unknown) CT C-spine shows degenerative change but no fracture. CT chest abdomen pelvis (units unknown) (unknown) (unknown) (no date) (unknown) (unknown) CT cervical spine wo con Stat (units unknown) (unknown) (unknown) (no date) (unknown) (unknown) CT chest abd pel w con Stat (units unknown) (unknown) (unknown) (no date) (unknown) (unknown) CT head/brain wo con Stat (units unknown) (unknown) (unknown) (no date) (unknown) (unknown) CVS: Heart sounds ar e normal, no murmur noted, No JVD. (units unknown) (unknown) (unknown) (no date) (unknown) (unknown) Calcium (8.4-10.2) mg/dL (units unknown) (unknown) (unknown) (no date) (unknown) (unknown) Calcium 8.5 (8.4-10.2) mg/dL (units unknown) (unknown) (unknown) (no date) (unknown) (unknown) Carbon Dioxide (22-32) mmol/L (units unknown) (unknown) (unknown) (no date) (unknown) (unknown) Carbon Dioxide 30 (22-32) mmol/L (units unknown) (unknown) (unknown) (no date) (unknown) (unknown) Chief Complaint: Trauma (units unknown) (unknown) (unknown) (no date) (unknown) (unknown) Chloride (98-107) mmol/L (units unknown) (unknown) (unknown) (no date) (unknown) (unknown) Chloride 100 (98-107 ) mmol/L (units unknown) (unknown) (unknown) (no date) (unknown) (unknown) Chronic low back pain (units unknown) (unknown) (unknown) (no date) (unknown) (unknown) Clinical Impression: (units unknown) (unknown) (unknown) (no date) (unknown) (unknown) Complete Blood Count AUTO DIFF Stat (units unknown) (unknown) (unknown) (no date) (unknown) (unknown) Comprehensive Metabolic Panel Stat (units unknown) (unknown) (unknown) (no date) (unknown) (unknown) Consult to [facility] [place] - 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 (units unknown) (unknown) (unknown) (no date) (unknown) (unknown) Course (units unknown) (unknown) (unknown) (no date) (unknown) (unknown) Creatinine (0.66-1.25) mg/dL (units unknown) (unknown) (unknown) (no date) (unknown) (unknown) Creatinine 0.42 L (0.66-1.25) mg/dL (units unknown) (unknown) (unknown) (no date) (unknown) (unknown) : 1970 Acct:[id number] (units unknown) (unknown) (unknown) (no date) (unknown) (unknown) Date of Service: 01/14/23 (units unknown) (unknown) (unknown) (no date) (unknown) (unknown) Departure (units unknown) (unknown) (unknown) (no date) (unknown) (unknown) Diphenhydramine HCl (Diphenhydramine 50 Mg/Ml Vial) 50 mg IV NOW ONE (units unknown) (unknown) (unknown) (no date) (unknown) (unknown) Diphtheria/Tetanus/A c ell Pertussis (Tet,Diph,Pertuss(Isaias ll),Vac/Pf 0.5 Ml (units unknown) (unknown) (unknown) (no date) (unknown) (unknown) Discharge Plan (units unknown) (unknown) (unknown) (no date) (unknown) (unknown) Discontinued Medications (units unknown) (unknown) (unknown) (no date) (unknown) (unknown) Documented By: AT (units unknown) (unknown) (unknown) (no date) (unknown) (unknown) Documented By: KB (units unknown) (unknown) (unknown) (no date) (unknown) (unknown) ECG Data (units unknown) (unknown) (unknown) (no date) (unknown) (unknown) ED Orders (units unknown) (unknown) (unknown) (no date) (unknown) (unknown) EKG-12 Lead Stat (units unknown) (unknown) (unknown) (no date) (unknown) (unknown) ENT: Patient has superficial scabbed laceration over his right brow, does not (units unknown) (unknown) (unknown) (no date) (unknown) (unknown) ER Physician: Sj Dewey D.O. (units unknown) (unknown) (unknown) (no date) (unknown) (unknown) ETOH [Ethanol (ETOH) ] Stat (units unknown) (unknown) (unknown) (no date) (unknown) (unknown) EXT: Atraumatic othe r than skin changes. hips are nontender, no pedal edema, (units unknown) (unknown) (unknown) (no date) (unknown) (unknown) EYES: PERRLA, EOMI (units unknown) (unknown) (unknown) (no date) (unknown) (unknown) Emergency Report (units unknown) (unknown) (unknown) (no date) (unknown) (unknown) Eos # (Auto) (0-450) /uL (units unknown) (unknown) (unknown) (no date) (unknown) (unknown) Eos # (Auto) 100 (0-450) /uL (units unknown) (unknown) (unknown) (no date) (unknown) (unknown) Eos % (Auto) (2-4) % (units unknown) (unknown) (unknown) (no date) (unknown) (unknown) Eos % (Auto) 2.2 (2-4) % (units unknown) (unknown) (unknown) (no date) (unknown) (unknown) Estimated GFR > 60 (>60) mL/min (units unknown) (unknown) (unknown) (no date) (unknown) (unknown) Estimated GFR (>60) mL/min (units unknown) (unknown) (unknown) (no date) (unknown) (unknown) Ethanol (ETOH) Stat (units unknown) (unknown) (unknown) (no date) (unknown) (unknown) Ethyl Alcohol ( - 10 ) mg/dL (units unknown) (unknown) (unknown) (no date) (unknown) (unknown) Ethyl Alcohol 308 H ( - 10) mg/dL (units unknown) (unknown) (unknown) (no date) (unknown) (unknown) Exam (units unknown) (unknown) (unknown) (no date) (unknown) (unknown) FEELS LIKE (units unknown) (unknown) (unknown) (no date) (unknown) (unknown) GEN: C-collar was placed by EMS in the field but patient would not keep it on. (units unknown) (unknown) (unknown) (no date) (unknown) (unknown) General (units unknown) (unknown) (unknown) (no date) (unknown) (unknown) Globulin (1.7-4.1) g/dL (units unknown) (unknown) (unknown) (no date) (unknown) (unknown) Globulin 3.2 (1.7-4.1) g/dL (units unknown) (unknown) (unknown) (no date) (unknown) (unknown) Glucose (70-100) mg/dL (units unknown) (unknown) (unknown) (no date) (unknown) (unknown) Glucose 254 H (70-100) mg/dL (units unknown) (unknown) (unknown) (no date) (unknown) (unknown) Glucose POC 344 (units unknown) (unknown) (unknown) (no date) (unknown) (unknown) HEAD: No evidence of trauma, no raccoon/Johnson sign. (units unknown) (unknown) (unknown) (no date) (unknown) (unknown) HEARING (units unknown) (unknown) (unknown) (no date) (unknown) (unknown) HPI - Trauma (units unknown) (unknown) (unknown) (no date) (unknown) (unknown) HPI narrative: (units unknown) (unknown) (unknown) (no date) (unknown) (unknown) Hct (41-53) % (units unknown) (unknown) (unknown) (no date) (unknown) (unknown) Hct 36.9 L (41-53) % (units unknown) (unknown) (unknown) (no date) (unknown) (unknown) Hgb (13.5-17.5) g/dL (units unknown) (unknown) (unknown) (no date) (unknown) (unknown) Hgb 12.3 L (13.5-17.5) g/dL (units unknown) (unknown) (unknown) (no date) (unknown) (unknown) History of Present Illness (units unknown) (unknown) (unknown) (no date) (unknown) (unknown) Home Medications (units unknown) (unknown) (unknown) (no date) (unknown) (unknown) INR (0.9-1.3) (units unknown) (unknown) (unknown) (no date) (unknown) (unknown) INR 1.0 (0.9-1.3) (units unknown) (unknown) (unknown) (no date) (unknown) (unknown) Initial Vital Signs (units unknown) (unknown) (unknown) (no date) (unknown) (unknown) Initial Vital Signs: (units unknown) (unknown) (unknown) (no date) (unknown) (unknown) Interpretation: (units unknown) (unknown) (unknown) (no date) (unknown) (unknown) [address] [address] (units unknown) (unknown) (unknown) (no date) (unknown) (unknown) Ketorolac Tromethamine (Ketorolac 30 Mg/Ml Vial) 15 mg IV NOW ONE (units unknown) (unknown) (unknown) (no date) (unknown) (unknown) LOSS AT (units unknown) (unknown) (unknown) (no date) (unknown) (unknown) Lab Data (units unknown) (unknown) (unknown) (no date) (unknown) (unknown) Lab Results (units unknown) (unknown) (unknown) (no date) (unknown) (unknown) Labs show an ETOH of 308, patient has a hemoglobin of 12 baseline compared to (units unknown) (unknown) (unknown) (no date) (unknown) (unknown) Labs: (units unknown) (unknown) (unknown) (no date) (unknown) (unknown) Lactate (0.7-2.1) mmol/L (units unknown) (unknown) (unknown) (no date) (unknown) (unknown) Lactate (Lactic Acid ) Stat (units unknown) (unknown) (unknown) (no date) (unknown) (unknown) Lactate 2.1 1.9 (0.7-2.1) mmol/L (units unknown) (unknown) (unknown) (no date) (unknown) (unknown) Last Admin: 01/14/23 10:42 Dose: 0.5 mg (units unknown) (unknown) (unknown) (no date) (unknown) (unknown) Last Admin: 01/14/23 11:11 Dose: 50 mg (units unknown) (unknown) (unknown) (no date) (unknown) (unknown) Last Admin: 01/14/23 11:12 Dose: 125 mg (units unknown) (unknown) (unknown) (no date) (unknown) (unknown) Last Admin: 01/14/23 14:28 Dose: 260 mg (units unknown) (unknown) (unknown) (no date) (unknown) (unknown) Last Admin: 01/14/23 14:29 Dose: 650 mg (units unknown) (unknown) (unknown) (no date) (unknown) (unknown) Last Admin: 01/14/23 15:09 Dose: 0.5 ml (units unknown) (unknown) (unknown) (no date) (unknown) (unknown) Last Admin: 01/14/23 18:00 Dose: 15 mg (units unknown) (unknown) (unknown) (no date) (unknown) (unknown) Limitations: no limitations (units unknown) (unknown) (unknown) (no date) (unknown) (unknown) Lipase (23-300) U/L (units unknown) (unknown) (unknown) (no date) (unknown) (unknown) Lipase 109 (23-300) U/L (units unknown) (unknown) (unknown) (no date) (unknown) (unknown) Lipase Stat (units unknown) (unknown) (unknown) (no date) (unknown) (unknown) Lorazepam (Lorazepam 2 Mg/Ml Inj) 0.5 mg IV NOW ONE (units unknown) (unknown) (unknown) (no date) (unknown) (unknown) Lorazepam (Lorazepam 2 Mg/Ml Inj) 0.5 mg IV Q2HR PRN (units unknown) (unknown) (unknown) (no date) (unknown) (unknown) Lymph # (Auto) (9997-6769) /uL (units unknown) (unknown) (unknown) (no date) (unknown) (unknown) Lymph # (Auto) 1700 (0200-8004) /uL (units unknown) (unknown) (unknown) (no date) (unknown) (unknown) Lymph % (Auto) (25-40) % (units unknown) (unknown) (unknown) (no date) (unknown) (unknown) Lymph % (Auto) 39.1 (25-40) % (units unknown) (unknown) (unknown) (no date) (unknown) (unknown) MCH (26-34) PG (units unknown) (unknown) (unknown) (no date) (unknown) (unknown) MCH 32.5 (26-34) PG (units unknown) (unknown) (unknown) (no date) (unknown) (unknown) MCHC (30-36) % (units unknown) (unknown) (unknown) (no date) (unknown) (unknown) MCHC 33.5 (30-36) % (units unknown) (unknown) (unknown) (no date) (unknown) (unknown) MCV (80-100) fL (units unknown) (unknown) (unknown) (no date) (unknown) (unknown) MCV 97.1 (80-100) fL (units unknown) (unknown) (unknown) (no date) (unknown) (unknown) MDM - Trauma (units unknown) (unknown) (unknown) (no date) (unknown) (unknown) MDM Narrative (units unknown) (unknown) (unknown) (no date) (unknown) (unknown) Medical History (Updated 01/14/23 @ 16:59 by Bridgett Garrido DO) (units unknown) (unknown) (unknown) (no date) (unknown) (unknown) Medical decision making narrative: (units unknown) (unknown) (unknown) (no date) (unknown) (unknown) Medication Instructions Recorded Confirmed (units unknown) (unknown) (unknown) (no date) (unknown) (unknown) Methylprednisolone (Methylprednisolone 125 Mg/2 Ml Vial) 125 mg IV NOW ONE (units unknown) (unknown) (unknown) (no date) (unknown) (unknown) Micro UA Comment Microscopic normal (units unknown) (unknown) (unknown) (no date) (unknown) (unknown) Micro UA Comment (units unknown) (unknown) (unknown) (no date) (unknown) (unknown) Mode of arrival: EMS (units unknown) (unknown) (unknown) (no date) (unknown) (unknown) [place] # (Auto) (0-900 ) /uL (units unknown) (unknown) (unknown) (no date) (unknown) (unknown) [place] # (Auto) 600 (0-900) /uL (units unknown) (unknown) (unknown) (no date) (unknown) (unknown) [place] % (Auto) (3-14) % (units unknown) (unknown) (unknown) (no date) (unknown) (unknown) [place] % (Auto) 14.9 H (3-14) % (units unknown) (unknown) (unknown) (no date) (unknown) (unknown) NECK: Nontender, painless range of motion, trachea midline (units unknown) (unknown) (unknown) (no date) (unknown) (unknown) NEURO: Oriented AOx3 , neuro is grossly intact, sensation and motor is normal all (units unknown) (unknown) (unknown) (no date) (unknown) (unknown) Narrative: (units unknown) (unknown) (unknown) (no date) (unknown) (unknown) Neut # (Auto) (9303-2473) /uL (units unknown) (unknown) (unknown) (no date) (unknown) (unknown) Neut # (Auto) 1800 (6228-6807) /uL (units unknown) (unknown) (unknown) (no date) (unknown) (unknown) Neut % (Auto) (50-75 ) % (units unknown) (unknown) (unknown) (no date) (unknown) (unknown) Neut % (Auto) 42.4 L (50-75) % (units unknown) (unknown) (unknown) (no date) (unknown) (unknown) No Action (units unknown) (unknown) (unknown) (no date) (unknown) (unknown) Nontender, incisions healed. (units unknown) (unknown) (unknown) (no date) (unknown) (unknown) Ordered: (units unknown) (unknown) (unknown) (no date) (unknown) (unknown) Orders (units unknown) (unknown) (unknown) (no date) (unknown) (unknown) Oxygen Delivery Method Room Air 01/14/23 10:22 (units unknown) (unknown) (unknown) (no date) (unknown) (unknown) Oxygen Delivery Method Room Air Room Air (units unknown) (unknown) (unknown) (no date) (unknown) (unknown) Oxygen Delivery Method Room Air (units unknown) (unknown) (unknown) (no date) (unknown) (unknown) Oxygen Delivery Method (units unknown) (unknown) (unknown) (no date) (unknown) (unknown) PRN Reason: Anxiety (units unknown) (unknown) (unknown) (no date) (unknown) (unknown) PSYCH: Normal mood and affect (units unknown) (unknown) (unknown) (no date) (unknown) (unknown) PT (10.1-12.7) SECONDS (units unknown) (unknown) (unknown) (no date) (unknown) (unknown) PT 11.2 (10.1-12.7) SECONDS (units unknown) (unknown) (unknown) (no date) (unknown) (unknown) PTT Partial Thromboplastin [place]olfo Stat (units unknown) (unknown) (unknown) (no date) (unknown) (unknown) Patient Comments: (units unknown) (unknown) (unknown) (no date) (unknown) (unknown) Patient History (units unknown) (unknown) (unknown) (no date) (unknown) (unknown) Patient appears in moderate distress. Patient is confused has slightly slurred (units unknown) (unknown) (unknown) (no date) (unknown) (unknown) Patient denies pain, no shortness of breath, no GI or urinary symptoms. He is (units unknown) (unknown) (unknown) (no date) (unknown) (unknown) Patient had Solu-Medrol methylprednisolone for pretreatment for CT, he had (units unknown) (unknown) (unknown) (no date) (unknown) (unknown) Patient was CT scan secondary to intoxication unclear mechanism of his prior (units unknown) (unknown) (unknown) (no date) (unknown) (unknown) Patient was being evaluated by 1 facility, they asked for repeat EKG for QTC (units unknown) (unknown) (unknown) (no date) (unknown) (unknown) Patient: Sj Romo MR#: [id number] (units unknown) (unknown) (unknown) (no date) (unknown) (unknown) Phenobarbital (Phenobarbital 65 Mg/Ml Vial) 260 mg IV NOW ONE (units unknown) (unknown) (unknown) (no date) (unknown) (unknown) Plt Count (150-400) X103/uL (units unknown) (unknown) (unknown) (no date) (unknown) (unknown) Plt Count 296 (150-400) X103/uL (units unknown) (unknown) (unknown) (no date) (unknown) (unknown) Point of Care Testing (units unknown) (unknown) (unknown) (no date) (unknown) (unknown) Positive Nexus criteria, there is no midline line tenderness, distracting (units unknown) (unknown) (unknown) (no date) (unknown) (unknown) Potassium (3.4-5.1) mmol/L (units unknown) (unknown) (unknown) (no date) (unknown) (unknown) Potassium 3.9 (3.4-5.1) mmol/L (units unknown) (unknown) (unknown) (no date) (unknown) (unknown) Prescriptions: (units unknown) (unknown) (unknown) (no date) (unknown) (unknown) Prothrombin Time INR Stat (units unknown) (unknown) (unknown) (no date) (unknown) (unknown) Pulse Oximetry 93 93 (units unknown) (unknown) (unknown) (no date) (unknown) (unknown) Pulse Oximetry 93 95 (units unknown) (unknown) (unknown) (no date) (unknown) (unknown) Pulse Oximetry 93 (units unknown) (unknown) (unknown) (no date) (unknown) (unknown) Pulse Oximetry 94 91 (units unknown) (unknown) (unknown) (no date) (unknown) (unknown) Pulse Oximetry 94 94 (units unknown) (unknown) (unknown) (no date) (unknown) (unknown) Pulse Oximetry 94 96 (units unknown) (unknown) (unknown) (no date) (unknown) (unknown) Pulse Oximetry 94 (units unknown) (unknown) (unknown) (no date) (unknown) (unknown) Pulse Oximetry 95 94 (units unknown) (unknown) (unknown) (no date) (unknown) (unknown) Pulse Oximetry 95 97 (units unknown) (unknown) (unknown) (no date) (unknown) (unknown) Pulse Oximetry 95 (units unknown) (unknown) (unknown) (no date) (unknown) (unknown) Pulse Oximetry 96 (units unknown) (unknown) (unknown) (no date) (unknown) (unknown) Pulse Oximetry 97 96 (units unknown) (unknown) (unknown) (no date) (unknown) (unknown) Pulse Oximetry 97 (units unknown) (unknown) (unknown) (no date) (unknown) (unknown) Pulse Oximetry 99 01/14/23 10:22 (units unknown) (unknown) (unknown) (no date) (unknown) (unknown) Pulse Oximetry 99 96 97 (units unknown) (unknown) (unknown) (no date) (unknown) (unknown) Pulse Rate 74 72 (units unknown) (unknown) (unknown) (no date) (unknown) (unknown) Pulse Rate 74 78 (units unknown) (unknown) (unknown) (no date) (unknown) (unknown) Pulse Rate 74 (units unknown) (unknown) (unknown) (no date) (unknown) (unknown) Pulse Rate 75 76 (units unknown) (unknown) (unknown) (no date) (unknown) (unknown) Pulse Rate 75 (units unknown) (unknown) (unknown) (no date) (unknown) (unknown) Pulse Rate 76 82 (units unknown) (unknown) (unknown) (no date) (unknown) (unknown) Pulse Rate 78 80 (units unknown) (unknown) (unknown) (no date) (unknown) (unknown) Pulse Rate 80 79 (units unknown) (unknown) (unknown) (no date) (unknown) (unknown) Pulse Rate 80 (units unknown) (unknown) (unknown) (no date) (unknown) (unknown) Pulse Rate 81 (units unknown) (unknown) (unknown) (no date) (unknown) (unknown) Pulse Rate 85 (units unknown) (unknown) (unknown) (no date) (unknown) (unknown) Pulse Rate 87 87 (units unknown) (unknown) (unknown) (no date) (unknown) (unknown) Pulse Rate 95 H 01/14/23 10:22 (units unknown) (unknown) (unknown) (no date) (unknown) (unknown) Pulse Rate 95 H 94 H 87 (units unknown) (unknown) (unknown) (no date) (unknown) (unknown) Pulse Rate 96 H 83 (units unknown) (unknown) (unknown) (no date) (unknown) (unknown) Pulse Rate 97 H 97 H (units unknown) (unknown) (unknown) (no date) (unknown) (unknown) RBC (4.5-5.9) X106/uL (units unknown) (unknown) (unknown) (no date) (unknown) (unknown) RBC 3.80 L (4.5-5.9) X106/uL (units unknown) (unknown) (unknown) (no date) (unknown) (unknown) RDW (11.6-14.8) % (units unknown) (unknown) (unknown) (no date) (unknown) (unknown) RDW 13.2 (11.6-14.8) % (units unknown) (unknown) (unknown) (no date) (unknown) (unknown) RESP: Chest is nontender and has symmetric movement, no ecchymosis, breath (units unknown) (unknown) (unknown) (no date) (unknown) (unknown) Related Data (units unknown) (unknown) (unknown) (no date) (unknown) (unknown) Respiratory Rate 10 L (units unknown) (unknown) (unknown) (no date) (unknown) (unknown) Respiratory Rate 13 11 L (units unknown) (unknown) (unknown) (no date) (unknown) (unknown) Respiratory Rate 13 13 (units unknown) (unknown) (unknown) (no date) (unknown) (unknown) Respiratory Rate 13 (units unknown) (unknown) (unknown) (no date) (unknown) (unknown) Respiratory Rate 14 14 (units unknown) (unknown) (unknown) (no date) (unknown) (unknown) Respiratory Rate 14 (units unknown) (unknown) (unknown) (no date) (unknown) (unknown) Respiratory Rate 15 (units unknown) (unknown) (unknown) (no date) (unknown) (unknown) Respiratory Rate 18 01/14/23 10:22 (units unknown) (unknown) (unknown) (no date) (unknown) (unknown) Respiratory Rate 18 12 14 (units unknown) (unknown) (unknown) (no date) (unknown) (unknown) Respiratory Rate 19 (units unknown) (unknown) (unknown) (no date) (unknown) (unknown) Respiratory Rate 20 (units unknown) (unknown) (unknown) (no date) (unknown) (unknown) Respiratory Rate 8 L (units unknown) (unknown) (unknown) (no date) (unknown) (unknown) Respiratory Rate (units unknown) (unknown) (unknown) (no date) (unknown) (unknown) Review of Systems (units unknown) (unknown) (unknown) (no date) (unknown) (unknown) Rx Instructions: (units unknown) (unknown) (unknown) (no date) (unknown) (unknown) SARS-CoV-2 (PCR) (Negative) (units unknown) (unknown) (unknown) (no date) (unknown) (unknown) SARS-CoV-2 (PCR) Negative (Negative) (units unknown) (unknown) (unknown) (no date) (unknown) (unknown) SKIN: Patient has a small 2 cm burn on his right forearm that has blistered and (units unknown) (unknown) (unknown) (no date) (unknown) (unknown) See Rx Instructions .ROUTE .COMPLEX (units unknown) (unknown) (unknown) (no date) (unknown) (unknown) Signed By: (units unknown) (unknown) (unknown) (no date) (unknown) (unknown) Smoking Status: [place] r smoker (units unknown) (unknown) (unknown) (no date) (unknown) (unknown) Social History (units unknown) (unknown) (unknown) (no date) (unknown) (unknown) Sodium (137-145) mmol/L (units unknown) (unknown) (unknown) (no date) (unknown) (unknown) Sodium 140 (137-145) mmol/L (units unknown) (unknown) (unknown) (no date) (unknown) (unknown) Solostar U-100 Insulin) (units unknown) (unknown) (unknown) (no date) (unknown) (unknown) Solu-Medrol as he wa s felt stable. CT imaging of the brain shows soft tissue (units unknown) (unknown) (unknown) (no date) (unknown) (unknown) Source: patient, EMS , RN notes reviewed and old records reviewed (units unknown) (unknown) (unknown) (no date) (unknown) (unknown) Stated Complaint: Trauma (units unknown) (unknown) (unknown) (no date) (unknown) (unknown) Stop: 01/14/23 10:27 (units unknown) (unknown) (unknown) (no date) (unknown) (unknown) Stop: 01/14/23 10:29 (units unknown) (unknown) (unknown) (no date) (unknown) (unknown) Stop: 01/14/23 10:58 (units unknown) (unknown) (unknown) (no date) (unknown) (unknown) Stop: 01/14/23 13:43 (units unknown) (unknown) (unknown) (no date) (unknown) (unknown) Stop: 01/14/23 14:19 (units unknown) (unknown) (unknown) (no date) (unknown) (unknown) Stop: 01/14/23 17:53 (units unknown) (unknown) (unknown) (no date) (unknown) (unknown) Substance Use Type: does not use (units unknown) (unknown) (unknown) (no date) (unknown) (unknown) Suicidal ideation, Alcohol abuse, Facial laceration (units unknown) (unknown) (unknown) (no date) (unknown) (unknown) Syringe) 0.5 ml IM .ONCE ONE (units unknown) (unknown) (unknown) (no date) (unknown) (unknown) TAKE 1 CAPSULE BY MOUTH DAILY (units unknown) (unknown) (unknown) (no date) (unknown) (unknown) TAKE 1 TABLET BY MOUTH EVERY EVENING (units unknown) (unknown) (unknown) (no date) (unknown) (unknown) TAKE 1 TABLET BY MOUTH EVERY MORNING (units unknown) (unknown) (unknown) (no date) (unknown) (unknown) Take 1 tablet by mouth twice a day (units unknown) (unknown) (unknown) (no date) (unknown) (unknown) Temperature 97.4 F L 01/14/23 10:22 (units unknown) (unknown) (unknown) (no date) (unknown) (unknown) Temperature 97.4 F L (units unknown) (unknown) (unknown) (no date) (unknown) (unknown) Temperature (units unknown) (unknown) (unknown) (no date) (unknown) (unknown) They also note that they were called out for a wellness check yesterday they (units unknown) (unknown) (unknown) (no date) (unknown) (unknown) This is a 53-year-ol d male who appears intoxicated, he does have scabbing with a (units unknown) (unknown) (unknown) (no date) (unknown) (unknown) This is a 53-year-ol d male with known history of alcohol abuse, insulin (units unknown) (unknown) (unknown) (no date) (unknown) (unknown) Time Seen by Provider: 01/14/23 10:26 (units unknown) (unknown) (unknown) (no date) (unknown) (unknown) To sleep sinus rhyth m rate of 72 OH 130 QRS of 98 QTC [address]. No acute ST (units unknown) (unknown) (unknown) (no date) (unknown) (unknown) Total Bilirubin (0.2-1.3) mg/dL (units unknown) (unknown) (unknown) (no date) (unknown) (unknown) Total Bilirubin 0.4 (0.2-1.3) mg/dL (units unknown) (unknown) (unknown) (no date) (unknown) (unknown) Total Protein (6.3-8.2) g/dL (units unknown) (unknown) (unknown) (no date) (unknown) (unknown) Total Protein 7.2 (6.3-8.2) g/dL (units unknown) (unknown) (unknown) (no date) (unknown) (unknown) Tylenol her headache and phenobarb 260 for alcohol withdrawal patient has not (units unknown) (unknown) (unknown) (no date) (unknown) (unknown) Type and Screen Stat (units unknown) (unknown) (unknown) (no date) (unknown) (unknown) U Benzodiazepines Scrn (Negative) (units unknown) (unknown) (unknown) (no date) (unknown) (unknown) U Benzodiazepines Scrn Positive H (Negative) (units unknown) (unknown) (unknown) (no date) (unknown) (unknown) U Marijuana (THC) Screen (Negative) (units unknown) (unknown) (unknown) (no date) (unknown) (unknown) U Marijuana (THC) Screen Negative (Negative) (units unknown) (unknown) (unknown) (no date) (unknown) (unknown) U Methamphetamines Scrn (Negative) (units unknown) (unknown) (unknown) (no date) (unknown) (unknown) U Methamphetamines Scrn Negative (Negative) (units unknown) (unknown) (unknown) (no date) (unknown) (unknown) U Opiates 300ng/mL cut (Negative) (units unknown) (unknown) (unknown) (no date) (unknown) (unknown) U Opiates 300ng/mL cut Positive H (Negative) (units unknown) (unknown) (unknown) (no date) (unknown) (unknown) U Tricyclic Antidepress (Negative) (units unknown) (unknown) (unknown) (no date) (unknown) (unknown) U Tricyclic Antidepress Negative (Negative) (units unknown) (unknown) (unknown) (no date) (unknown) (unknown) Ur Amphetamines Screen (Negative) (units unknown) (unknown) (unknown) (no date) (unknown) (unknown) Ur Amphetamines Screen Negative (Negative) (units unknown) (unknown) (unknown) (no date) (unknown) (unknown) Ur Barbiturates Screen (Negative) (units unknown) (unknown) (unknown) (no date) (unknown) (unknown) Ur Barbiturates Screen Negative (Negative) (units unknown) (unknown) (unknown) (no date) (unknown) (unknown) Ur Culture Indicated ? Cult not indicated (units unknown) (unknown) (unknown) (no date) (unknown) (unknown) Ur Culture Indicated? (units unknown) (unknown) (unknown) (no date) (unknown) (unknown) Ur Leukocyte [place]ster[place] e (NEGATIVE) (units unknown) (unknown) (unknown) (no date) (unknown) (unknown) Ur Leukocyte Esteras e Negative (NEGATIVE) (units unknown) (unknown) (unknown) (no date) (unknown) (unknown) Ur MDMA Scrn (Ecstasy) (Negative) (units unknown) (unknown) (unknown) (no date) (unknown) (unknown) Ur MDMA Scrn (Ecstasy) Negative (Negative) (units unknown) (unknown) (unknown) (no date) (unknown) (unknown) Ur Oxycodone Screen (Negative) (units unknown) (unknown) (unknown) (no date) (unknown) (unknown) Ur Oxycodone Screen Negative (Negative) (units unknown) (unknown) (unknown) (no date) (unknown) (unknown) Ur Phencyclidine Scr n (Negative) (units unknown) (unknown) (unknown) (no date) (unknown) (unknown) Ur Phencyclidine Scr n Negative (Negative) (units unknown) (unknown) (unknown) (no date) (unknown) (unknown) Ur Specific [place] (1.000-1.035) (units unknown) (unknown) (unknown) (no date) (unknown) (unknown) Ur Specific [place] 1.010 (1.000-1.035) (units unknown) (unknown) (unknown) (no date) (unknown) (unknown) Urinalysis and Microscopic Stat (units unknown) (unknown) (unknown) (no date) (unknown) (unknown) Urine Appearance Clear (units unknown) (unknown) (unknown) (no date) (unknown) (unknown) Urine Appearance (units unknown) (unknown) (unknown) (no date) (unknown) (unknown) Urine Bacteria (None) (units unknown) (unknown) (unknown) (no date) (unknown) (unknown) Urine Bacteria None seen (None) (units unknown) (unknown) (unknown) (no date) (unknown) (unknown) Urine Bilirubin (NEGATIVE) (units unknown) (unknown) (unknown) (no date) (unknown) (unknown) Urine Bilirubin Negative (NEGATIVE) (units unknown) (unknown) (unknown) (no date) (unknown) (unknown) Urine Cocaine Screen (Negative) (units unknown) (unknown) (unknown) (no date) (unknown) (unknown) Urine Cocaine Screen Negative (Negative) (units unknown) (unknown) (unknown) (no date) (unknown) (unknown) Urine Color Yellow (units unknown) (unknown) (unknown) (no date) (unknown) (unknown) Urine Color (units unknown) (unknown) (unknown) (no date) (unknown) (unknown) Urine Drug Screen, Rapid Stat (units unknown) (unknown) (unknown) (no date) (unknown) (unknown) Urine Glucose (UA) (Negative) g/dL (units unknown) (unknown) (unknown) (no date) (unknown) (unknown) Urine Glucose (UA) 2 + H (Negative) g/dL (units unknown) (unknown) (unknown) (no date) (unknown) (unknown) Urine Ketones (NEGATIVE) (units unknown) (unknown) (unknown) (no date) (unknown) (unknown) Urine Ketones Negative (NEGATIVE) (units unknown) (unknown) (unknown) (no date) (unknown) (unknown) Urine Methadone Screen (Negative) (units unknown) (unknown) (unknown) (no date) (unknown) (unknown) Urine Methadone Screen Negative (Negative) (units unknown) (unknown) (unknown) (no date) (unknown) (unknown) Urine Nitrate (Negative) (units unknown) (unknown) (unknown) (no date) (unknown) (unknown) Urine Nitrate Negative (Negative) (units unknown) (unknown) (unknown) (no date) (unknown) (unknown) Urine Occult Blood (Negative) (units unknown) (unknown) (unknown) (no date) (unknown) (unknown) Urine Occult Blood Negative (Negative) (units unknown) (unknown) (unknown) (no date) (unknown) (unknown) Urine Protein (Negative) (units unknown) (unknown) (unknown) (no date) (unknown) (unknown) Urine Protein Negative (Negative) (units unknown) (unknown) (unknown) (no date) (unknown) (unknown) Urine RBC (0-5/HPF) (units unknown) (unknown) (unknown) (no date) (unknown) (unknown) Urine RBC None seen (0-5/HPF) (units unknown) (unknown) (unknown) (no date) (unknown) (unknown) Urine Urobilinogen (0.2) E.U./dL (units unknown) (unknown) (unknown) (no date) (unknown) (unknown) Urine Urobilinogen 1.0 (0.2) E.U./dL (units unknown) (unknown) (unknown) (no date) (unknown) (unknown) Urine WBC (0-5/HPF) (units unknown) (unknown) (unknown) (no date) (unknown) (unknown) Urine WBC None seen (0-5/HPF) (units unknown) (unknown) (unknown) (no date) (unknown) (unknown) Urine pH (4.5-8.0) (units unknown) (unknown) (unknown) (no date) (unknown) (unknown) Urine pH 6.5 (4.5-8.0) (units unknown) (unknown) (unknown) (no date) (unknown) (unknown) Vital Signs - 8 hr (units unknown) (unknown) (unknown) (no date) (unknown) (unknown) Vital Signs (units unknown) (unknown) (unknown) (no date) (unknown) (unknown) Vital signs: (units unknown) (unknown) (unknown) (no date) (unknown) (unknown) WAS (units unknown) (unknown) (unknown) (no date) (unknown) (unknown) WBC (4.5-11.0) X103/uL (units unknown) (unknown) (unknown) (no date) (unknown) (unknown) WBC 4.3 L (4.5-11.0) X103/uL (units unknown) (unknown) (unknown) (no date) (unknown) (unknown) XR chest 1V Stat (units unknown) (unknown) (unknown) (no date) (unknown) (unknown) XR pelvis 1-2V Stat (units unknown) (unknown) (unknown) (no date) (unknown) (unknown) [Embedded Image Not Available] (units unknown) (unknown) (unknown) (no date) (unknown) (unknown) [From BETADINE] FEEL S LIKE (units unknown) (unknown) (unknown) (no date) (unknown) (unknown) [SHELLFISH DERIVED] LIKE IT (units unknown) (unknown) (unknown) (no date) (unknown) (unknown) a small burn on his right forearm and he has bruising his girlfriend told medics (units unknown) (unknown) (unknown) (no date) (unknown) (unknown) abdomen pelvis there was some delay as it was found patient has reported allergy (units unknown) (unknown) (unknown) (no date) (unknown) (unknown) alcohol intake frequency: 0-2 drinks per day (units unknown) (unknown) (unknown) (no date) (unknown) (unknown) and when asked he states he does want to kill himself when asked why he does not (units unknown) (unknown) (unknown) (no date) (unknown) (unknown) answer. When asked i f he has a plan he does not give one. Medics a girlfriend (units unknown) (unknown) (unknown) (no date) (unknown) (unknown) anything amiss in e house but he had been found on the ground in the bathroom. (units unknown) (unknown) (unknown) (no date) (unknown) (unknown) appears older with healing skin underneath, warm and dry, no crepitus and (units unknown) (unknown) (unknown) (no date) (unknown) (unknown) are 8788 and 146 wit h a negative bilirubin and lipase of 109. EKG shows a sinus (units unknown) (unknown) (unknown) (no date) (unknown) (unknown) arrived. (units unknown) (unknown) (unknown) (no date) (unknown) (unknown) atorvastatin 40 mg tablet 40 mg PO BEDTIME 01/14/23 01/14/23 (units unknown) (unknown) (unknown) (no date) (unknown) (unknown) atorvastatin 40 mg tablet (units unknown) (unknown) (unknown) (no date) (unknown) (unknown) been tachycardic since then, no hypertension. Patient did receive a dose of IV (units unknown) (unknown) (unknown) (no date) (unknown) (unknown) chest and abdomen although it appears little bit older, and he has a burn on his (units unknown) (unknown) (unknown) (no date) (unknown) (unknown) chest, right upper abdomen and right lower abdomen. (units unknown) (unknown) (unknown) (no date) (unknown) (unknown) ction at baseline at 0.42 normal electrolytes glucose is 254, AST ALT alk-phos (units unknown) (unknown) (unknown) (no date) (unknown) (unknown) currently voluntary seeking dual treatment. (units unknown) (unknown) (unknown) (no date) (unknown) (unknown) dependent diabetes and chronic pain with a pain pump in his left abdomen. Patie (units unknown) (unknown) (unknown) (no date) (unknown) (unknown) dextroamphetamine-am p hetamine 20 20 mg PO BID 01/14/23 01/14/23 (units unknown) (unknown) (unknown) (no date) (unknown) (unknown) dextroamphetamine-am p hetamine 20 mg tablet (units unknown) (unknown) (unknown) (no date) (unknown) (unknown) do his injections which he states are insulin. He states he has a pain pump in (units unknown) (unknown) (unknown) (no date) (unknown) (unknown) drinks at least a 5t h daily, he denies tobacco or illicit. He states he did not (units unknown) (unknown) (unknown) (no date) (unknown) (unknown) elevation or depression. (units unknown) (unknown) (unknown) (no date) (unknown) (unknown) eptal hematoma, no dental or oral injury, airway is normal and with normal (units unknown) (unknown) (unknown) (no date) (unknown) (unknown) found blood in a different location but the patient was not present at that (units unknown) (unknown) (unknown) (no date) (unknown) (unknown) furosemide 20 mg tablet 20 mg PO DAILY 01/14/23 01/14/23 (units unknown) (unknown) (unknown) (no date) (unknown) (unknown) furosemide 20 mg tablet (units unknown) (unknown) (unknown) (no date) (unknown) (unknown) gape, trachea is midline, TM's are normal no hemotypanum, Nares are clear, no s (units unknown) (unknown) (unknown) (no date) (unknown) (unknown) ground there was reportedly some glass at the scene and the medics state that (units unknown) (unknown) (unknown) (no date) (unknown) (unknown) his alcohol should b e around 100 around 1845. Patient does have some suicidal (units unknown) (unknown) (unknown) (no date) (unknown) (unknown) his belly. He did make statements that he wanted to kill himself to the medics (units unknown) (unknown) (unknown) (no date) (unknown) (unknown) injuries with chest and abdominal bruising, with CT head, C-spine and chest (units unknown) (unknown) (unknown) (no date) (unknown) (unknown) injury over the supe r to right orbit/right frontal bone with a small hematoma. (units unknown) (unknown) (unknown) (no date) (unknown) (unknown) injury, altered mental status, neuro deficit, positive for recent EtOH. (units unknown) (unknown) (unknown) (no date) (unknown) (unknown) insulin glargine 100 unit/mL (3 20 unit SUBCUT BEDTIME 01/14/23 01/14/23 (units unknown) (unknown) (unknown) (no date) (unknown) (unknown) insulin glargine [Lantus Solostar U-100 Insulin] 100 unit/mL (3 mL) insulin (units unknown) (unknown) (unknown) (no date) (unknown) (unknown) insulin lispro 100 unit/mL See Rx Instructions .Route .COMPLEX 01/14/23 01/14/23 (units unknown) (unknown) (unknown) (no date) (unknown) (unknown) insulin lispro [Humalog KwikPen Insulin] 100 unit/mL insulin pen (units unknown) (unknown) (unknown) (no date) (unknown) (unknown) last saw the patient on she noted that he bought a bottle of hard (units unknown) (unknown) (unknown) (no date) (unknown) (unknown) leave. 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 as he has been otherwise medically cleared (units unknown) (unknown) (unknown) (no date) (unknown) (unknown) left scapular and L1-L2 transverse process fractures, small hiatal hernia and (units unknown) (unknown) (unknown) (no date) (unknown) (unknown) liquor at that time and there was only about a few mL left today when EMS (units unknown) (unknown) (unknown) (no date) (unknown) (unknown) lorazepam when he initially came as patient was a little agitated and trying to (units unknown) (unknown) (unknown) (no date) (unknown) (unknown) losartan 100 mg tablet 100 mg PO DAILY 01/14/23 01/14/23 (units unknown) (unknown) (unknown) (no date) (unknown) (unknown) losartan 100 mg tablet (units unknown) (unknown) (unknown) (no date) (unknown) (unknown) mL) subcutaneous pen (Lantus (units unknown) (unknown) (unknown) (no date) (unknown) (unknown) medications or prolong his QT. He has a prior in the past and had a 449 QTC. (units unknown) (unknown) (unknown) (no date) (unknown) (unknown) mg tablet (units unknown) (unknown) (unknown) (no date) (unknown) (unknown) moving all his extremities well. Is conversant but confused. Patient states he (units unknown) (unknown) (unknown) (no date) (unknown) (unknown) normal color and temperature, normal range of motion of extremities with normal (units unknown) (unknown) (unknown) (no date) (unknown) (unknown) nt states he does no t know who he is aware he is. He is able to give his name (units unknown) (unknown) (unknown) (no date) (unknown) (unknown) obtained is unclear what exactly occurred. Patient was called out as a modified (units unknown) (unknown) (unknown) (no date) (unknown) (unknown) occlusion, No bony tenderness (units unknown) (unknown) (unknown) (no date) (unknown) (unknown) pelvic rock is negative, patient has device in the left lateral abdomen. (units unknown) (unknown) (unknown) (no date) (unknown) (unknown) pen (units unknown) (unknown) (unknown) (no date) (unknown) (unknown) penicillin G [PENICILLIN G] Allergy Unknown LEFT EAR Verified 07/27/18 10:10 (units unknown) (unknown) (unknown) (no date) (unknown) (unknown) povidone-iodine Allergy Unknown 'SKIN Verified 07/27/18 10:10 (units unknown) (unknown) (unknown) (no date) (unknown) (unknown) propranolol 20 mg tablet 20 mg PO BID 01/14/23 01/14/23 (units unknown) (unknown) (unknown) (no date) (unknown) (unknown) propranolol 20 mg tablet (units unknown) (unknown) (unknown) (no date) (unknown) (unknown) redirectable althoug h he keeps saying he wants to get out of the bed. He has (units unknown) (unknown) (unknown) (no date) (unknown) (unknown) rhythm no acute ST changes. Initial chest x-ray and pelvic x-ray is negative. (units unknown) (unknown) (unknown) (no date) (unknown) (unknown) right forearm that also appears little bit older. Patient was found on the (units unknown) (unknown) (unknown) (no date) (unknown) (unknown) seeking placement bu t currently voluntary. (units unknown) (unknown) (unknown) (no date) (unknown) (unknown) shellfish derived Allergy Unknown 'SKIN FELT Verified 07/27/18 10:10 (units unknown) (unknown) (unknown) (no date) (unknown) (unknown) shows no acute traumatic injury, remote left-sided rib fractures with remote (units unknown) (unknown) (unknown) (no date) (unknown) (unknown) soap [From BETADINE] Allergy Unknown 'SKIN Verified 07/27/18 10:10 (units unknown) (unknown) (unknown) (no date) (unknown) (unknown) some blood at the scene in a different location. Patient had labs, imaging (units unknown) (unknown) (unknown) (no date) (unknown) (unknown) some broken glass, medics state the glass was cleaned up they did not see (units unknown) (unknown) (unknown) (no date) (unknown) (unknown) sounds are normal no crackles, wheezes or rales (units unknown) (unknown) (unknown) (no date) (unknown) (unknown) speech appears intoxicated but is conversant. (units unknown) (unknown) (unknown) (no date) (unknown) (unknown) stable lung nodules measuring 6 mm. (units unknown) (unknown) (unknown) (no date) (unknown) (unknown) subcutaneous pen (Humalog KwikPen (units unknown) (unknown) (unknown) (no date) (unknown) (unknown) superficial lack of the right forehead, he has some bruising of his anterior (units unknown) (unknown) (unknown) (no date) (unknown) (unknown) tamsulosin 0.4 mg capsule 0.4 mg PO DAILY 01/14/23 01/14/23 (units unknown) (unknown) (unknown) (no date) (unknown) (unknown) tamsulosin 0.4 mg capsule (units unknown) (unknown) (unknown) (no date) (unknown) (unknown) tendon exam, 2+ pulses in all four extremities (units unknown) (unknown) (unknown) (no date) (unknown) (unknown) that is bruising on his left abdomen is from injections but onto his chest and (units unknown) (unknown) (unknown) (no date) (unknown) (unknown) they wanted less kitty n 450 repeat is 497. Patient had Benadryl but no other (units unknown) (unknown) (unknown) (no date) (unknown) (unknown) they were there the day before patient was not present at home but there was (units unknown) (unknown) (unknown) (no date) (unknown) (unknown) thoughts no clear active clot described to myself. That was social work (units unknown) (unknown) (unknown) (no date) (unknown) (unknown) time. Patient does not recall what trauma occurred. The somewhat repetitive. (units unknown) (unknown) (unknown) (no date) (unknown) (unknown) to iodine which he did not tell us earlier. Was pretreated with Benadryl and (units unknown) (unknown) (unknown) (no date) (unknown) (unknown) trauma. (units unknown) (unknown) (unknown) (no date) (unknown) (unknown) upper abdomen she is unsure. Patient was found at home in the bathroom with (units unknown) (unknown) (unknown) (no date) (unknown) (unknown) what appears to be scabbed superficial laceration over his right forehead he has (units unknown) (unknown) (unknown) (no date) (unknown) (unknown) when he is registered. Patient is confused but follows commands he is (units unknown) (unknown) (unknown) (no date) (unknown) (unknown) without decubitus. Patient has ecchymosis that is about 4 cm on his anterior (units unknown) (unknown) Result panel 232 (unknown) (no date) (unknown) (unknown) (no value) (units unknown) (unknown) (unknown) (no date) (unknown) (unknown) (U-100) Insulin) (units unknown) (unknown) (unknown) (no date) (unknown) (unknown) 0.4 mg PO DAILY (units unknown) (unknown) (unknown) (no date) (unknown) (unknown) [id number] (units unknown) (unknown) (unknown) (no date) (unknown) (unknown) 01/14/23 01/14/23 01/14/23 Range/Units (units unknown) (unknown) (unknown) (no date) (unknown) (unknown) 01/14/23 10:27 (units unknown) (unknown) (unknown) (no date) (unknown) (unknown) 01/14/23 10:29 (units unknown) (unknown) (unknown) (no date) (unknown) (unknown) 01/14/23 10:35 (units unknown) (unknown) (unknown) (no date) (unknown) (unknown) 01/14/23 10:45 (units unknown) (unknown) (unknown) (no date) (unknown) (unknown) 01/14/23 11:17 (units unknown) (unknown) (unknown) (no date) (unknown) (unknown) 01/14/23 11:23 (units unknown) (unknown) (unknown) (no date) (unknown) (unknown) 01/14/23 14:09 (units unknown) (unknown) (unknown) (no date) (unknown) (unknown) 01/14/23 15:25 (units unknown) (unknown) (unknown) (no date) (unknown) (unknown) 01/14/23 17:01 (units unknown) (unknown) (unknown) (no date) (unknown) (unknown) 01/14/23 18:15 (units unknown) (unknown) (unknown) (no date) (unknown) (unknown) 01/14/23 (units unknown) (unknown) (unknown) (no date) (unknown) (unknown) 100 mg PO DAILY (units unknown) (unknown) (unknown) (no date) (unknown) (unknown) 10:45 10:45 10:45 (units unknown) (unknown) (unknown) (no date) (unknown) (unknown) 10:45 11:23 13:48 (units unknown) (unknown) (unknown) (no date) (unknown) (unknown) 11:00 01/14/23 (units unknown) (unknown) (unknown) (no date) (unknown) (unknown) 11:24 01/14/23 (units unknown) (unknown) (unknown) (no date) (unknown) (unknown) 11:24 (units unknown) (unknown) (unknown) (no date) (unknown) (unknown) 11:30 01/14/23 (units unknown) (unknown) (unknown) (no date) (unknown) (unknown) 11:31 01/14/23 (units unknown) (unknown) (unknown) (no date) (unknown) (unknown) 11:31 (units unknown) (unknown) (unknown) (no date) (unknown) (unknown) 11:50 01/14/23 (units unknown) (unknown) (unknown) (no date) (unknown) (unknown) 12:05 01/14/23 (units unknown) (unknown) (unknown) (no date) (unknown) (unknown) 12:05 (units unknown) (unknown) (unknown) (no date) (unknown) (unknown) 12:15 01/14/23 (units unknown) (unknown) (unknown) (no date) (unknown) (unknown) 12:15 (units unknown) (unknown) (unknown) (no date) (unknown) (unknown) 12:30 01/14/23 (units unknown) (unknown) (unknown) (no date) (unknown) (unknown) 12:45 01/14/23 (units unknown) (unknown) (unknown) (no date) (unknown) (unknown) 12:45 (units unknown) (unknown) (unknown) (no date) (unknown) (unknown) 13:00 01/14/23 (units unknown) (unknown) (unknown) (no date) (unknown) (unknown) 13:01 01/14/23 (units unknown) (unknown) (unknown) (no date) (unknown) (unknown) 13:01 (units unknown) (unknown) (unknown) (no date) (unknown) (unknown) 13:15 01/14/23 (units unknown) (unknown) (unknown) (no date) (unknown) (unknown) 13:15 (units unknown) (unknown) (unknown) (no date) (unknown) (unknown) 13:30 01/14/23 (units unknown) (unknown) (unknown) (no date) (unknown) (unknown) 13:49 01/14/23 (units unknown) (unknown) (unknown) (no date) (unknown) (unknown) 13:49 (units unknown) (unknown) (unknown) (no date) (unknown) (unknown) 14:00 01/14/23 (units unknown) (unknown) (unknown) (no date) (unknown) (unknown) 14:09 14:09 15:25 (units unknown) (unknown) (unknown) (no date) (unknown) (unknown) 14:26 01/14/23 (units unknown) (unknown) (unknown) (no date) (unknown) (unknown) 14:26 (units unknown) (unknown) (unknown) (no date) (unknown) (unknown) 14:30 01/14/23 (units unknown) (unknown) (unknown) (no date) (unknown) (unknown) 14:30 (units unknown) (unknown) (unknown) (no date) (unknown) (unknown) 15:00 01/14/23 (units unknown) (unknown) (unknown) (no date) (unknown) (unknown) 15:02 01/14/23 (units unknown) (unknown) (unknown) (no date) (unknown) (unknown) 15:02 (units unknown) (unknown) (unknown) (no date) (unknown) (unknown) 15:30 01/14/23 (units unknown) (unknown) (unknown) (no date) (unknown) (unknown) 16:00 01/14/23 (units unknown) (unknown) (unknown) (no date) (unknown) (unknown) 16:00 (units unknown) (unknown) (unknown) (no date) (unknown) (unknown) 16:30 01/14/23 (units unknown) (unknown) (unknown) (no date) (unknown) (unknown) 17:00 01/14/23 (units unknown) (unknown) (unknown) (no date) (unknown) (unknown) 17:00 (units unknown) (unknown) (unknown) (no date) (unknown) (unknown) 17:30 01/14/23 (units unknown) (unknown) (unknown) (no date) (unknown) (unknown) 17:30 (units unknown) (unknown) (unknown) (no date) (unknown) (unknown) 18:00 01/14/23 (units unknown) (unknown) (unknown) (no date) (unknown) (unknown) 18:00 (units unknown) (unknown) (unknown) (no date) (unknown) (unknown) 20 mg PO BID (units unknown) (unknown) (unknown) (no date) (unknown) (unknown) 20 mg PO DAILY (units unknown) (unknown) (unknown) (no date) (unknown) (unknown) 20 unit SUBCUT BEDTIME (units unknown) (unknown) (unknown) (no date) (unknown) (unknown) 2016 white count of 4.3 normal platelets at 296. Coags are negative, renal (units unknown) (unknown) (unknown) (no date) (unknown) (unknown) 4 extremities moving , cranial nerves II through XII are intact, GCS is 15 (units unknown) (unknown) (unknown) (no date) (unknown) (unknown) 40 mg PO BEDTIME (units unknown) (unknown) (unknown) (no date) (unknown) (unknown) 91 mg/dl (unknown) (unknown) (no date) (unknown) (unknown) 91 mg/dl (unknown) (unknown) (no date) (unknown) (unknown) ABG/GI: Nontender, soft, normal bowel sounds, no distention, no organomegaly, (units unknown) (unknown) (unknown) (no date) (unknown) (unknown) ADMINISTER 2 TO 10 UNITS UNDER THE SKIN BEFORE MEALS AND AT BEDTIME (units unknown) (unknown) (unknown) (no date) (unknown) (unknown) ADMINISTER 20 UNITS UNDER THE SKIN EVERY EVENING (units unknown) (unknown) (unknown) (no date) (unknown) (unknown) AGE 12YR (units unknown) (unknown) (unknown) (no date) (unknown) (unknown) ALT (<50) IU/L (units unknown) (unknown) (unknown) (no date) (unknown) (unknown) ALT 88 H (<50) IU/L (units unknown) (unknown) (unknown) (no date) (unknown) (unknown) APTT (26-36) SECONDS (units unknown) (unknown) (unknown) (no date) (unknown) (unknown) APTT 34 (26-36) SECONDS (units unknown) (unknown) (unknown) (no date) (unknown) (unknown) AST (17-59) IU/L (units unknown) (unknown) (unknown) (no date) (unknown) (unknown) AST 87 H (17-59) IU/L (units unknown) (unknown) (unknown) (no date) (unknown) (unknown) Acetaminophen (Acetaminophen 325 Mg Tablet) 650 mg PO NOW ONE (units unknown) (unknown) (unknown) (no date) (unknown) (unknown) Age/Sex: 53 / M (units unknown) (unknown) (unknown) (no date) (unknown) (unknown) Albumin (3.5-5.0) g/dL (units unknown) (unknown) (unknown) (no date) (unknown) (unknown) Albumin 4.0 (3.5-5.0 ) g/dL (units unknown) (unknown) (unknown) (no date) (unknown) (unknown) Albumin/Globulin Ratio (1.0-2.8) (units unknown) (unknown) (unknown) (no date) (unknown) (unknown) Albumin/Globulin Ratio 1.3 (1.0-2.8) (units unknown) (unknown) (unknown) (no date) (unknown) (unknown) Alkaline Phosphatase (38-126) U/L (units unknown) (unknown) (unknown) (no date) (unknown) (unknown) Alkaline Phosphatase 146 H (38-126) U/L (units unknown) (unknown) (unknown) (no date) (unknown) (unknown) Allergies (units unknown) (unknown) (unknown) (no date) (unknown) (unknown) Allergy/AdvReac Type Severity Reaction Status Date / Time (units unknown) (unknown) (unknown) (no date) (unknown) (unknown) Another facility is evaluating the patient. Patient signed out to Dr. Dewey, (units unknown) (unknown) (unknown) (no date) (unknown) (unknown) Antibody Screen Negative (units unknown) (unknown) (unknown) (no date) (unknown) (unknown) Antibody Screen (units unknown) (unknown) (unknown) (no date) (unknown) (unknown) Attestation: I personally reviewed and interpreted this ECG as follows: (units unknown) (unknown) (unknown) (no date) (unknown) (unknown) BACK: No CVA tenderness, no vertebral tenderness, no step-off's, no crepitus (units unknown) (unknown) (unknown) (no date) (unknown) (unknown) BUN (9-20) mg/dL (units unknown) (unknown) (unknown) (no date) (unknown) (unknown) BUN 8 L (9-20) mg/dL (units unknown) (unknown) (unknown) (no date) (unknown) (unknown) BUN/Creatinine Ratio (6-22) (units unknown) (unknown) (unknown) (no date) (unknown) (unknown) BUN/Creatinine Ratio 19.0 (6-22) (units unknown) (unknown) (unknown) (no date) (unknown) (unknown) BURNING' (units unknown) (unknown) (unknown) (no date) (unknown) (unknown) Baso # (Auto) (0-100 ) /uL (units unknown) (unknown) (unknown) (no date) (unknown) (unknown) Baso # (Auto) 100 (0-100) /uL (units unknown) (unknown) (unknown) (no date) (unknown) (unknown) Baso % (Auto) (0-2) % (units unknown) (unknown) (unknown) (no date) (unknown) (unknown) Baso % (Auto) 1.4 (0-2) % (units unknown) (unknown) (unknown) (no date) (unknown) (unknown) Benadryl and Solu-Medrol as he was felt stable. CT imaging of the brain shows (units unknown) (unknown) (unknown) (no date) (unknown) (unknown) Blood Pressure 106/5 2 L 113/56 L (units unknown) (unknown) (unknown) (no date) (unknown) (unknown) Blood Pressure 121/73 (units unknown) (unknown) (unknown) (no date) (unknown) (unknown) Blood Pressure 130/82 (units unknown) (unknown) (unknown) (no date) (unknown) (unknown) Blood Pressure 135/88 (units unknown) (unknown) (unknown) (no date) (unknown) (unknown) Blood Pressure 137/72 (units unknown) (unknown) (unknown) (no date) (unknown) (unknown) Blood Pressure 137/8 4 151/87 H (units unknown) (unknown) (unknown) (no date) (unknown) (unknown) Blood Pressure 141/9 8 H 160/97 H (units unknown) (unknown) (unknown) (no date) (unknown) (unknown) Blood Pressure 144/9 6 H 146/82 H (units unknown) (unknown) (unknown) (no date) (unknown) (unknown) Blood Pressure 146/9 0 H (units unknown) (unknown) (unknown) (no date) (unknown) (unknown) Blood Pressure 148/9 1 H (units unknown) (unknown) (unknown) (no date) (unknown) (unknown) Blood Pressure 149/9 4 H 01/14/23 10:22 (units unknown) (unknown) (unknown) (no date) (unknown) (unknown) Blood Pressure 155/9 7 H (units unknown) (unknown) (unknown) (no date) (unknown) (unknown) Blood Pressure 163/8 8 H (units unknown) (unknown) (unknown) (no date) (unknown) (unknown) Blood Pressure 164/106 H (units unknown) (unknown) (unknown) (no date) (unknown) (unknown) Blood Pressure 172/8 8 H (units unknown) (unknown) (unknown) (no date) (unknown) (unknown) Blood Pressure 181/9 5 H (units unknown) (unknown) (unknown) (no date) (unknown) (unknown) Blood Type O Positive (units unknown) (unknown) (unknown) (no date) (unknown) (unknown) Blood Type (units unknown) (unknown) (unknown) (no date) (unknown) (unknown) COVID19 -Nasal RAPID Stat (units unknown) (unknown) (unknown) (no date) (unknown) (unknown) CT cervical spine wo con Stat (units unknown) (unknown) (unknown) (no date) (unknown) (unknown) CT chest abd pel w con Stat (units unknown) (unknown) (unknown) (no date) (unknown) (unknown) CT head/brain wo con Stat (units unknown) (unknown) (unknown) (no date) (unknown) (unknown) CVS: Heart sounds ar e normal, no murmur noted, No JVD. (units unknown) (unknown) (unknown) (no date) (unknown) (unknown) Calcium (8.4-10.2) mg/dL (units unknown) (unknown) (unknown) (no date) (unknown) (unknown) Calcium 8.5 (8.4-10.2) mg/dL (units unknown) (unknown) (unknown) (no date) (unknown) (unknown) Carbon Dioxide (22-32) mmol/L (units unknown) (unknown) (unknown) (no date) (unknown) (unknown) Carbon Dioxide 30 (22-32) mmol/L (units unknown) (unknown) (unknown) (no date) (unknown) (unknown) Chief Complaint: Trauma (units unknown) (unknown) (unknown) (no date) (unknown) (unknown) Chloride (98-107) mmol/L (units unknown) (unknown) (unknown) (no date) (unknown) (unknown) Chloride 100 (98-107 ) mmol/L (units unknown) (unknown) (unknown) (no date) (unknown) (unknown) Chronic low back pain (units unknown) (unknown) (unknown) (no date) (unknown) (unknown) Clinical Impression: (units unknown) (unknown) (unknown) (no date) (unknown) (unknown) Complete Blood Count AUTO DIFF Stat (units unknown) (unknown) (unknown) (no date) (unknown) (unknown) Comprehensive Metabolic Panel Stat (units unknown) (unknown) (unknown) (no date) (unknown) (unknown) Consult to [facility] [place] - 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 (units unknown) (unknown) (unknown) (no date) (unknown) (unknown) Course (units unknown) (unknown) (unknown) (no date) (unknown) (unknown) Creatinine (0.66-1.25) mg/dL (units unknown) (unknown) (unknown) (no date) (unknown) (unknown) Creatinine 0.42 L (0.66-1.25) mg/dL (units unknown) (unknown) (unknown) (no date) (unknown) (unknown) : 1970 Acct:[id number] (units unknown) (unknown) (unknown) (no date) (unknown) (unknown) Date of Service: 01/14/23 (units unknown) (unknown) (unknown) (no date) (unknown) (unknown) Departure (units unknown) (unknown) (unknown) (no date) (unknown) (unknown) Diphenhydramine HCl (Diphenhydramine 50 Mg/Ml Vial) 50 mg IV NOW ONE (units unknown) (unknown) (unknown) (no date) (unknown) (unknown) Diphtheria/Tetanus/A c ell Pertussis (Tet,Diph,Pertuss(Isaias ll),Vac/Pf 0.5 Ml (units unknown) (unknown) (unknown) (no date) (unknown) (unknown) Discharge Plan (units unknown) (unknown) (unknown) (no date) (unknown) (unknown) Discontinued Medications (units unknown) (unknown) (unknown) (no date) (unknown) (unknown) Documented By: AT (units unknown) (unknown) (unknown) (no date) (unknown) (unknown) Documented By: KB (units unknown) (unknown) (unknown) (no date) (unknown) (unknown) ECG Data (units unknown) (unknown) (unknown) (no date) (unknown) (unknown) ED Orders (units unknown) (unknown) (unknown) (no date) (unknown) (unknown) EKG-12 Lead Stat (units unknown) (unknown) (unknown) (no date) (unknown) (unknown) ENT: Patient has superficial scabbed laceration over his right brow, does not (units unknown) (unknown) (unknown) (no date) (unknown) (unknown) ER Physician: Sj Dewey D.O. (units unknown) (unknown) (unknown) (no date) (unknown) (unknown) ETOH [Ethanol (ETOH) ] Stat (units unknown) (unknown) (unknown) (no date) (unknown) (unknown) EXT: Atraumatic othe r than skin changes. hips are nontender, no pedal edema, (units unknown) (unknown) (unknown) (no date) (unknown) (unknown) EYES: PERRLA, EOMI (units unknown) (unknown) (unknown) (no date) (unknown) (unknown) Emergency Report (units unknown) (unknown) (unknown) (no date) (unknown) (unknown) Eos # (Auto) (0-450) /uL (units unknown) (unknown) (unknown) (no date) (unknown) (unknown) Eos # (Auto) 100 (0-450) /uL (units unknown) (unknown) (unknown) (no date) (unknown) (unknown) Eos % (Auto) (2-4) % (units unknown) (unknown) (unknown) (no date) (unknown) (unknown) Eos % (Auto) 2.2 (2-4) % (units unknown) (unknown) (unknown) (no date) (unknown) (unknown) Estimated GFR > 60 (>60) mL/min (units unknown) (unknown) (unknown) (no date) (unknown) (unknown) Estimated GFR (>60) mL/min (units unknown) (unknown) (unknown) (no date) (unknown) (unknown) Ethanol (ETOH) Stat (units unknown) (unknown) (unknown) (no date) (unknown) (unknown) Ethyl Alcohol ( - 10 ) mg/dL (units unknown) (unknown) (unknown) (no date) (unknown) (unknown) Ethyl Alcohol 308 H ( - 10) mg/dL (units unknown) (unknown) (unknown) (no date) (unknown) (unknown) Exam (units unknown) (unknown) (unknown) (no date) (unknown) (unknown) FEELS LIKE (units unknown) (unknown) (unknown) (no date) (unknown) (unknown) GEN: C-collar was placed by EMS in the field but patient would not keep it on. (units unknown) (unknown) (unknown) (no date) (unknown) (unknown) General (units unknown) (unknown) (unknown) (no date) (unknown) (unknown) Globulin (1.7-4.1) g/dL (units unknown) (unknown) (unknown) (no date) (unknown) (unknown) Globulin 3.2 (1.7-4.1) g/dL (units unknown) (unknown) (unknown) (no date) (unknown) (unknown) Glucose (70-100) mg/dL (units unknown) (unknown) (unknown) (no date) (unknown) (unknown) Glucose 254 H (70-100) mg/dL (units unknown) (unknown) (unknown) (no date) (unknown) (unknown) Glucose POC 344 (units unknown) (unknown) (unknown) (no date) (unknown) (unknown) HEAD: No evidence of trauma, no raccoon/Johnson sign. (units unknown) (unknown) (unknown) (no date) (unknown) (unknown) HEARING (units unknown) (unknown) (unknown) (no date) (unknown) (unknown) HPI - Trauma (units unknown) (unknown) (unknown) (no date) (unknown) (unknown) HPI narrative: (units unknown) (unknown) (unknown) (no date) (unknown) (unknown) Hct (41-53) % (units unknown) (unknown) (unknown) (no date) (unknown) (unknown) Hct 36.9 L (41-53) % (units unknown) (unknown) (unknown) (no date) (unknown) (unknown) Hgb (13.5-17.5) g/dL (units unknown) (unknown) (unknown) (no date) (unknown) (unknown) Hgb 12.3 L (13.5-17.5) g/dL (units unknown) (unknown) (unknown) (no date) (unknown) (unknown) History of Present Illness (units unknown) (unknown) (unknown) (no date) (unknown) (unknown) Home Medications (units unknown) (unknown) (unknown) (no date) (unknown) (unknown) INR (0.9-1.3) (units unknown) (unknown) (unknown) (no date) (unknown) (unknown) INR 1.0 (0.9-1.3) (units unknown) (unknown) (unknown) (no date) (unknown) (unknown) Initial Vital Signs (units unknown) (unknown) (unknown) (no date) (unknown) (unknown) Initial Vital Signs: (units unknown) (unknown) (unknown) (no date) (unknown) (unknown) Insulin Glargine (Insulin Glargine 100 Unit/Ml 3ml Pen) 20 unit SUBCUT NOW ONE (units unknown) (unknown) (unknown) (no date) (unknown) (unknown) Interpretation: (units unknown) (unknown) (unknown) (no date) (unknown) (unknown) [address] [address] (units unknown) (unknown) (unknown) (no date) (unknown) (unknown) Ketorolac Tromethamine (Ketorolac 30 Mg/Ml Vial) 15 mg IV NOW ONE (units unknown) (unknown) (unknown) (no date) (unknown) (unknown) LOSS AT (units unknown) (unknown) (unknown) (no date) (unknown) (unknown) Lab Data (units unknown) (unknown) (unknown) (no date) (unknown) (unknown) Lab Results (units unknown) (unknown) (unknown) (no date) (unknown) (unknown) Labs show an ETOH of 308, patient has a hemoglobin of 12 baseline compared to (units unknown) (unknown) (unknown) (no date) (unknown) (unknown) Labs: (units unknown) (unknown) (unknown) (no date) (unknown) (unknown) Lactate (0.7-2.1) mmol/L (units unknown) (unknown) (unknown) (no date) (unknown) (unknown) Lactate (Lactic Acid ) Stat (units unknown) (unknown) (unknown) (no date) (unknown) (unknown) Lactate 2.1 1.9 (0.7-2.1) mmol/L (units unknown) (unknown) (unknown) (no date) (unknown) (unknown) Last Admin: 01/14/23 10:42 Dose: 0.5 mg (units unknown) (unknown) (unknown) (no date) (unknown) (unknown) Last Admin: 01/14/23 11:11 Dose: 50 mg (units unknown) (unknown) (unknown) (no date) (unknown) (unknown) Last Admin: 01/14/23 11:12 Dose: 125 mg (units unknown) (unknown) (unknown) (no date) (unknown) (unknown) Last Admin: 01/14/23 14:28 Dose: 260 mg (units unknown) (unknown) (unknown) (no date) (unknown) (unknown) Last Admin: 01/14/23 14:29 Dose: 650 mg (units unknown) (unknown) (unknown) (no date) (unknown) (unknown) Last Admin: 01/14/23 15:09 Dose: 0.5 ml (units unknown) (unknown) (unknown) (no date) (unknown) (unknown) Last Admin: 01/14/23 18:00 Dose: 15 mg (units unknown) (unknown) (unknown) (no date) (unknown) (unknown) Limitations: no limitations (units unknown) (unknown) (unknown) (no date) (unknown) (unknown) Lipase (23-300) U/L (units unknown) (unknown) (unknown) (no date) (unknown) (unknown) Lipase 109 (23-300) U/L (units unknown) (unknown) (unknown) (no date) (unknown) (unknown) Lipase Stat (units unknown) (unknown) (unknown) (no date) (unknown) (unknown) Lorazepam (Lorazepam 2 Mg/Ml Inj) 0.5 mg IV NOW ONE (units unknown) (unknown) (unknown) (no date) (unknown) (unknown) Lorazepam (Lorazepam 2 Mg/Ml Inj) 0.5 mg IV Q2HR PRN (units unknown) (unknown) (unknown) (no date) (unknown) (unknown) Lymph # (Auto) ([id number]) /uL (units unknown) (unknown) (unknown) (no date) (unknown) (unknown) Lymph # (Auto) 1700 ([phone]) /uL (units unknown) (unknown) (unknown) (no date) (unknown) (unknown) Lymph % (Auto) (25-40) % (units unknown) (unknown) (unknown) (no date) (unknown) (unknown) Lymph % (Auto) 39.1 (25-40) % (units unknown) (unknown) (unknown) (no date) (unknown) (unknown) MCH (26-34) PG (units unknown) (unknown) (unknown) (no date) (unknown) (unknown) MCH 32.5 (26-34) PG (units unknown) (unknown) (unknown) (no date) (unknown) (unknown) MCHC (30-36) % (units unknown) (unknown) (unknown) (no date) (unknown) (unknown) MCHC 33.5 (30-36) % (units unknown) (unknown) (unknown) (no date) (unknown) (unknown) MCV (80-100) fL (units unknown) (unknown) (unknown) (no date) (unknown) (unknown) MCV 97.1 (80-100) fL (units unknown) (unknown) (unknown) (no date) (unknown) (unknown) MDM - Trauma (units unknown) (unknown) (unknown) (no date) (unknown) (unknown) MDM Narrative (units unknown) (unknown) (unknown) (no date) (unknown) (unknown) Medical History (Updated 01/14/23 @ 16:59 by Bridgett Garrido DO) (units unknown) (unknown) (unknown) (no date) (unknown) (unknown) Medical decision making narrative: (units unknown) (unknown) (unknown) (no date) (unknown) (unknown) Medication Instructions Recorded Confirmed (units unknown) (unknown) (unknown) (no date) (unknown) (unknown) Methylprednisolone (Methylprednisolone 125 Mg/2 Ml Vial) 125 mg IV NOW ONE (units unknown) (unknown) (unknown) (no date) (unknown) (unknown) Micro UA Comment Microscopic normal (units unknown) (unknown) (unknown) (no date) (unknown) (unknown) Micro UA Comment (units unknown) (unknown) (unknown) (no date) (unknown) (unknown) Mode of arrival: EMS (units unknown) (unknown) (unknown) (no date) (unknown) (unknown) [place] # (Auto) (0-900 ) /uL (units unknown) (unknown) (unknown) (no date) (unknown) (unknown) [place] # (Auto) 600 (0-900) /uL (units unknown) (unknown) (unknown) (no date) (unknown) (unknown) [place] % (Auto) (3-14) % (units unknown) (unknown) (unknown) (no date) (unknown) (unknown) [place] % (Auto) 14.9 H (3-14) % (units unknown) (unknown) (unknown) (no date) (unknown) (unknown) NECK: Nontender, painless range of motion, trachea midline (units unknown) (unknown) (unknown) (no date) (unknown) (unknown) NEURO: Oriented AOx3 , neuro is grossly intact, sensation and motor is normal all (units unknown)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 unknown) (unknown) (unknown) (no date) (unknown) (unknown) losartan 100 mg tablet (units unknown) (unknown) (unknown) (no date) (unknown) (unknown) mL) subcutaneous pen (Lantus (units unknown) (unknown) (unknown) (no date) (unknown) (unknown) medications or prolong his QT. He has a prior in the past and had a 449 QTC. (units unknown) (unknown) (unknown) (no date) (unknown) (unknown) mg tablet (units unknown) (unknown) (unknown) (no date) (unknown) (unknown) moving all his extremities well. Is conversant but confused. Patient states he (units unknown) (unknown) (unknown) (no date) (unknown) (unknown) negative. Patient wa s CT scan secondary to intoxication unclear mechanism of (units unknown) (unknown) (unknown) (no date) (unknown) (unknown) normal color and temperature, normal range of motion of extremities with normal (units unknown) (unknown) (unknown) (no date) (unknown) (unknown) nt states he does no t know who he is aware he is. He is able to give his name (units unknown) (unknown) (unknown) (no date) (unknown) (unknown) obtained is unclear what exactly occurred. Patient was called out as a modified (units unknown) (unknown) (unknown) (no date) (unknown) (unknown) occlusion, No bony tenderness (units unknown) (unknown) (unknown) (no date) (unknown) (unknown) pelvic rock is negative, patient has device in the left lateral abdomen. (units unknown) (unknown) (unknown) (no date) (unknown) (unknown) pen (units unknown) (unknown) (unknown) (no date) (unknown) (unknown) penicillin G [PENICILLIN G] Allergy Unknown LEFT EAR Verified 07/27/18 10:10 (units unknown) (unknown) (unknown) (no date) (unknown) (unknown) phos are 8788 and 14 6 with a negative bilirubin and lipase of 109. EKG shows a (units unknown) (unknown) (unknown) (no date) (unknown) (unknown) povidone-iodine Allergy Unknown 'SKIN Verified 07/27/18 10:10 (units unknown) (unknown) (unknown) (no date) (unknown) (unknown) propranolol 20 mg tablet 20 mg PO BID 01/14/23 01/14/23 (units unknown) (unknown) (unknown) (no date) (unknown) (unknown) propranolol 20 mg tablet (units unknown) (unknown) (unknown) (no date) (unknown) (unknown) redirectable althoug h he keeps saying he wants to get out of the bed. He has (units unknown) (unknown) (unknown) (no date) (unknown) (unknown) right forearm that also appears little bit older. Patient was found on the (units unknown) (unknown) (unknown) (no date) (unknown) (unknown) seeking placement bu t currently voluntary. (units unknown) (unknown) (unknown) (no date) (unknown) (unknown) shellfish derived Allergy Unknown 'SKIN FELT Verified 07/27/18 10:10 (units unknown) (unknown) (unknown) (no date) (unknown) (unknown) sinus rhythm no acut e ST changes. Initial chest x-ray and pelvic x-ray is (units unknown) (unknown) (unknown) (no date) (unknown) (unknown) soap [From BETADINE] Allergy Unknown 'SKIN Verified 07/27/18 10:10 (units unknown) (unknown) (unknown) (no date) (unknown) (unknown) soft tissue injury over the super to right orbit/right frontal bone with a small (units unknown) (unknown) (unknown) (no date) (unknown) (unknown) some blood at the scene in a different location. Patient had labs, imaging (units unknown) (unknown) (unknown) (no date) (unknown) (unknown) some broken glass, medics state the glass was cleaned up they did not see (units unknown) (unknown) (unknown) (no date) (unknown) (unknown) sounds are normal no crackles, wheezes or rales (units unknown) (unknown) (unknown) (no date) (unknown) (unknown) speech appears intoxicated but is conversant. (units unknown) (unknown) (unknown) (no date) (unknown) (unknown) subcutaneous pen (Humalog KwikPen (units unknown) (unknown) (unknown) (no date) (unknown) (unknown) superficial lack of the right forehead, he has some bruising of his anterior (units unknown) (unknown) (unknown) (no date) (unknown) (unknown) tamsulosin 0.4 mg capsule 0.4 mg PO DAILY 01/14/23 01/14/23 (units unknown) (unknown) (unknown) (no date) (unknown) (unknown) tamsulosin 0.4 mg capsule (units unknown) (unknown) (unknown) (no date) (unknown) (unknown) tendon exam, 2+ pulses in all four extremities (units unknown) (unknown) (unknown) (no date) (unknown) (unknown) that is bruising on his left abdomen is from injections but onto his chest and (units unknown) (unknown) (unknown) (no date) (unknown) (unknown) they wanted less kitty n 450 repeat is 497. Patient had Benadryl but no other (units unknown) (unknown) (unknown) (no date) (unknown) (unknown) they were there the day before patient was not present at home but there was (units unknown) (unknown) (unknown) (no date) (unknown) (unknown) thoughts no clear active clot described to myself. That was social work (units unknown) (unknown) (unknown) (no date) (unknown) (unknown) time. Patient does not recall what trauma occurred. The somewhat repetitive. (units unknown) (unknown) (unknown) (no date) (unknown) (unknown) trauma. (units unknown) (unknown) (unknown) (no date) (unknown) (unknown) upper abdomen she is unsure. Patient was found at home in the bathroom with (units unknown) (unknown) (unknown) (no date) (unknown) (unknown) what appears to be scabbed superficial laceration over his right forehead he has (units unknown) (unknown) (unknown) (no date) (unknown) (unknown) when he is registered. Patient is confused but follows commands he is (units unknown) (unknown) (unknown) (no date) (unknown) (unknown) with remote left scapular and L1-L2 transverse process fractures, small hiatal (units unknown) (unknown) (unknown) (no date) (unknown) (unknown) without decubitus. Patient has ecchymosis that is about 4 cm on his anterior (units unknown) (unknown) Result panel 233 (unknown) (no date) (unknown) (unknown) (no value) (units unknown) (unknown) (unknown) (no date) (unknown) (unknown) (U-100) Insulin) (units unknown) (unknown) (unknown) (no date) (unknown) (unknown) (past 8 hours): (units unknown) (unknown) (unknown) (no date) (unknown) (unknown) [id number] (units unknown) (unknown) (unknown) (no date) (unknown) (unknown) 01/14/23 01/14/23 01/14/23 (units unknown) (unknown) (unknown) (no date) (unknown) (unknown) 01/14/23 10:45 (units unknown) (unknown) (unknown) (no date) (unknown) (unknown) 01/14/23 (units unknown) (unknown) (unknown) (no date) (unknown) (unknown) 10:45 10:45 10:45 (units unknown) (unknown) (unknown) (no date) (unknown) (unknown) 10:45 11:23 13:48 (units unknown) (unknown) (unknown) (no date) (unknown) (unknown) 14:09 14:09 15:25 (units unknown) (unknown) (unknown) (no date) (unknown) (unknown) 15:00 01/14/23 (units unknown) (unknown) (unknown) (no date) (unknown) (unknown) 15:02 01/14/23 (units unknown) (unknown) (unknown) (no date) (unknown) (unknown) 15:02 (units unknown) (unknown) (unknown) (no date) (unknown) (unknown) 15:30 01/14/23 (units unknown) (unknown) (unknown) (no date) (unknown) (unknown) 16:00 01/14/23 (units unknown) (unknown) (unknown) (no date) (unknown) (unknown) 16:00 (units unknown) (unknown) (unknown) (no date) (unknown) (unknown) 16:30 01/14/23 (units unknown) (unknown) (unknown) (no date) (unknown) (unknown) 17:00 01/14/23 (units unknown) (unknown) (unknown) (no date) (unknown) (unknown) 17:00 (units unknown) (unknown) (unknown) (no date) (unknown) (unknown) 17:30 01/14/23 (units unknown) (unknown) (unknown) (no date) (unknown) (unknown) 17:30 (units unknown) (unknown) (unknown) (no date) (unknown) (unknown) 18:00 01/14/23 (units unknown) (unknown) (unknown) (no date) (unknown) (unknown) 18:15 (units unknown) (unknown) (unknown) (no date) (unknown) (unknown) 18:30 01/14/23 (units unknown) (unknown) (unknown) (no date) (unknown) (unknown) 18:30 (units unknown) (unknown) (unknown) (no date) (unknown) (unknown) 19:00 01/14/23 (units unknown) (unknown) (unknown) (no date) (unknown) (unknown) 19:15 01/14/23 (units unknown) (unknown) (unknown) (no date) (unknown) (unknown) 19:15 (units unknown) (unknown) (unknown) (no date) (unknown) (unknown) 19:20 01/14/23 (units unknown) (unknown) (unknown) (no date) (unknown) (unknown) 19:20 (units unknown) (unknown) (unknown) (no date) (unknown) (unknown) 19:25 01/14/23 (units unknown) (unknown) (unknown) (no date) (unknown) (unknown) 19:30 01/14/23 (units unknown) (unknown) (unknown) (no date) (unknown) (unknown) 19:30 (units unknown) (unknown) (unknown) (no date) (unknown) (unknown) 19:34 01/14/23 (units unknown) (unknown) (unknown) (no date) (unknown) (unknown) 19:35 01/14/23 (units unknown) (unknown) (unknown) (no date) (unknown) (unknown) 19:35 (units unknown) (unknown) (unknown) (no date) (unknown) (unknown) 19:40 01/14/23 (units unknown) (unknown) (unknown) (no date) (unknown) (unknown) 19:40 (units unknown) (unknown) (unknown) (no date) (unknown) (unknown) 19:45 01/14/23 (units unknown) (unknown) (unknown) (no date) (unknown) (unknown) 19:50 01/14/23 (units unknown) (unknown) (unknown) (no date) (unknown) (unknown) 19:50 (units unknown) (unknown) (unknown) (no date) (unknown) (unknown) 19:55 01/14/23 (units unknown) (unknown) (unknown) (no date) (unknown) (unknown) 19:55 (units unknown) (unknown) (unknown) (no date) (unknown) (unknown) 20:00 01/14/23 (units unknown) (unknown) (unknown) (no date) (unknown) (unknown) 20:05 01/14/23 (units unknown) (unknown) (unknown) (no date) (unknown) (unknown) 20:05 (units unknown) (unknown) (unknown) (no date) (unknown) (unknown) 20:30 01/14/23 (units unknown) (unknown) (unknown) (no date) (unknown) (unknown) 20:30 (units unknown) (unknown) (unknown) (no date) (unknown) (unknown) 21:00 01/14/23 (units unknown) (unknown) (unknown) (no date) (unknown) (unknown) 21:30 01/14/23 (units unknown) (unknown) (unknown) (no date) (unknown) (unknown) 21:30 (units unknown) (unknown) (unknown) (no date) (unknown) (unknown) 22:00 01/14/23 (units unknown) (unknown) (unknown) (no date) (unknown) (unknown) 22:25 (units unknown) (unknown) (unknown) (no date) (unknown) (unknown) AGE 12YR (units unknown) (unknown) (unknown) (no date) (unknown) (unknown) ALT 88 H (units unknown) (unknown) (unknown) (no date) (unknown) (unknown) ALT (units unknown) (unknown) (unknown) (no date) (unknown) (unknown) APTT 34 (units unknown) (unknown) (unknown) (no date) (unknown) (unknown) APTT (units unknown) (unknown) (unknown) (no date) (unknown) (unknown) AST 87 H (units unknown) (unknown) (unknown) (no date) (unknown) (unknown) AST (units unknown) (unknown) (unknown) (no date) (unknown) (unknown) Age/Sex: 53 / M (units unknown) (unknown) (unknown) (no date) (unknown) (unknown) Albumin 4.0 (units unknown) (unknown) (unknown) (no date) (unknown) (unknown) Albumin (units unknown) (unknown) (unknown) (no date) (unknown) (unknown) Albumin/Globulin Ratio 1.3 (units unknown) (unknown) (unknown) (no date) (unknown) (unknown) Albumin/Globulin Ratio (units unknown) (unknown) (unknown) (no date) (unknown) (unknown) Alkaline Phosphatase 146 H (units unknown) (unknown) (unknown) (no date) (unknown) (unknown) Alkaline Phosphatase (units unknown) (unknown) (unknown) (no date) (unknown) (unknown) Allergies (units unknown) (unknown) (unknown) (no date) (unknown) (unknown) Allergy/AdvReac Type Severity Reaction Status Date / Time (units unknown) (unknown) (unknown) (no date) (unknown) (unknown) Antibody Screen Negative (units unknown) (unknown) (unknown) (no date) (unknown) (unknown) Antibody Screen (units unknown) (unknown) (unknown) (no date) (unknown) (unknown) BUN 8 L (units unknown) (unknown) (unknown) (no date) (unknown) (unknown) BUN (units unknown) (unknown) (unknown) (no date) (unknown) (unknown) BUN/Creatinine Ratio 19.0 (units unknown) (unknown) (unknown) (no date) (unknown) (unknown) BUN/Creatinine Ratio (units unknown) (unknown) (unknown) (no date) (unknown) (unknown) BURNING' (units unknown) (unknown) (unknown) (no date) (unknown) (unknown) Baso # (Auto) 100 (units unknown) (unknown) (unknown) (no date) (unknown) (unknown) Baso # (Auto) (units unknown) (unknown) (unknown) (no date) (unknown) (unknown) Baso % (Auto) 1.4 (units unknown) (unknown) (unknown) (no date) (unknown) (unknown) Baso % (Auto) (units unknown) (unknown) (unknown) (no date) (unknown) (unknown) Blood Pressure 106/5 2 L 113/56 L (units unknown) (unknown) (unknown) (no date) (unknown) (unknown) Blood Pressure 121/73 (units unknown) (unknown) (unknown) (no date) (unknown) (unknown) Blood Pressure 129/8 0 138/76 (units unknown) (unknown) (unknown) (no date) (unknown) (unknown) Blood Pressure 130/8 2 162/103 H (units unknown) (unknown) (unknown) (no date) (unknown) (unknown) Blood Pressure 132/9 6 H 169/93 H (units unknown) (unknown) (unknown) (no date) (unknown) (unknown) Blood Pressure 137/72 (units unknown) (unknown) (unknown) (no date) (unknown) (unknown) Blood Pressure 137/85 (units unknown) (unknown) (unknown) (no date) (unknown) (unknown) Blood Pressure 138/102 H 130/92 H (units unknown) (unknown) (unknown) (no date) (unknown) (unknown) Blood Pressure 142/8 9 H (units unknown) (unknown) (unknown) (no date) (unknown) (unknown) Blood Pressure 143/9 4 H 141/93 H (units unknown) (unknown) (unknown) (no date) (unknown) (unknown) Blood Pressure 148/8 2 H (units unknown) (unknown) (unknown) (no date) (unknown) (unknown) Blood Pressure 155/9 5 H 124/84 (units unknown) (unknown) (unknown) (no date) (unknown) (unknown) Blood Pressure 158/9 5 H (units unknown) (unknown) (unknown) (no date) (unknown) (unknown) Blood Pressure 172/8 8 H (units unknown) (unknown) (unknown) (no date) (unknown) (unknown) Blood Pressure 175/108 H (units unknown) (unknown) (unknown) (no date) (unknown) (unknown) Blood Pressure (units unknown) (unknown) (unknown) (no date) (unknown) (unknown) Blood Type O Positive (units unknown) (unknown) (unknown) (no date) (unknown) (unknown) Blood Type (units unknown) (unknown) (unknown) (no date) (unknown) (unknown) Calcium 8.5 (units unknown) (unknown) (unknown) (no date) (unknown) (unknown) Calcium (units unknown) (unknown) (unknown) (no date) (unknown) (unknown) Carbon Dioxide 30 (units unknown) (unknown) (unknown) (no date) (unknown) (unknown) Carbon Dioxide (units unknown) (unknown) (unknown) (no date) (unknown) (unknown) Chief complaint: Trauma (units unknown) (unknown) (unknown) (no date) (unknown) (unknown) Chloride 100 (units unknown) (unknown) (unknown) (no date) (unknown) (unknown) Chloride (units unknown) (unknown) (unknown) (no date) (unknown) (unknown) Chronic low back pain (units unknown) (unknown) (unknown) (no date) (unknown) (unknown) Creatinine 0.42 L (units unknown) (unknown) (unknown) (no date) (unknown) (unknown) Creatinine (units unknown) (unknown) (unknown) (no date) (unknown) (unknown) : 1970 Acct:[id number] (units unknown) (unknown) (unknown) (no date) (unknown) (unknown) Date Patient Seen: 01/14/23 (units unknown) (unknown) (unknown) (no date) (unknown) (unknown) Date of Service: 01/14/23 (units unknown) (unknown) (unknown) (no date) (unknown) (unknown) Eos # (Auto) 100 (units unknown) (unknown) (unknown) (no date) (unknown) (unknown) Eos # (Auto) (units unknown) (unknown) (unknown) (no date) (unknown) (unknown) Eos % (Auto) 2.2 (units unknown) (unknown) (unknown) (no date) (unknown) (unknown) Eos % (Auto) (units unknown) (unknown) (unknown) (no date) (unknown) (unknown) Estimated GFR > 60 (units unknown) (unknown) (unknown) (no date) (unknown) (unknown) Estimated GFR (units unknown) (unknown) (unknown) (no date) (unknown) (unknown) Ethyl Alcohol 308 H (units unknown) (unknown) (unknown) (no date) (unknown) (unknown) Ethyl Alcohol 91 H (units unknown) (unknown) (unknown) (no date) (unknown) (unknown) Ethyl Alcohol (units unknown) (unknown) (unknown) (no date) (unknown) (unknown) Exam (units unknown) (unknown) (unknown) (no date) (unknown) (unknown) FEELS LIKE (units unknown) (unknown) (unknown) (no date) (unknown) (unknown) Globulin 3.2 (units unknown) (unknown) (unknown) (no date) (unknown) (unknown) Globulin (units unknown) (unknown) (unknown) (no date) (unknown) (unknown) Glucose 254 H (units unknown) (unknown) (unknown) (no date) (unknown) (unknown) Glucose (units unknown) (unknown) (unknown) (no date) (unknown) (unknown) HEARING (units unknown) (unknown) (unknown) (no date) (unknown) (unknown) Hct 36.9 L (units unknown) (unknown) (unknown) (no date) (unknown) (unknown) Hct (units unknown) (unknown) (unknown) (no date) (unknown) (unknown) He states he has a pain pump in his belly.? He did make statements that he (units unknown) (unknown) (unknown) (no date) (unknown) (unknown) Hgb 12.3 L (units unknown) (unknown) (unknown) (no date) (unknown) (unknown) Hgb (units unknown) (unknown) (unknown) (no date) (unknown) (unknown) History + Physical Report (units unknown) (unknown) (unknown) (no date) (unknown) (unknown) History of Present Illness (units unknown) (unknown) (unknown) (no date) (unknown) (unknown) History (units unknown) (unknown) (unknown) (no date) (unknown) (unknown) Home Medications and Allergies (units unknown) (unknown) (unknown) (no date) (unknown) (unknown) Home Medications (units unknown) (unknown) (unknown) (no date) (unknown) (unknown) INR 1.0 (units unknown) (unknown) (unknown) (no date) (unknown) (unknown) INR (units unknown) (unknown) (unknown) (no date) (unknown) (unknown) [address] [address] (units unknown) (unknown) (unknown) (no date) (unknown) (unknown) LOSS AT (units unknown) (unknown) (unknown) (no date) (unknown) (unknown) Laboratory Results - last 24 hr (units unknown) (unknown) (unknown) (no date) (unknown) (unknown) Labs (units unknown) (unknown) (unknown) (no date) (unknown) (unknown) Labs: (units unknown) (unknown) (unknown) (no date) (unknown) (unknown) Lactate 2.1 1.9 (units unknown) (unknown) (unknown) (no date) (unknown) (unknown) Lactate (units unknown) (unknown) (unknown) (no date) (unknown) (unknown) Lipase 109 (units unknown) (unknown) (unknown) (no date) (unknown) (unknown) Lipase (units unknown) (unknown) (unknown) (no date) (unknown) (unknown) Lymph # (Auto) 1700 (units unknown) (unknown) (unknown) (no date) (unknown) (unknown) Lymph # (Auto) (units unknown) (unknown) (unknown) (no date) (unknown) (unknown) Lymph % (Auto) 39.1 (units unknown) (unknown) (unknown) (no date) (unknown) (unknown) Lymph % (Auto) (units unknown) (unknown) (unknown) (no date) (unknown) (unknown) MCH 32.5 (units unknown) (unknown) (unknown) (no date) (unknown) (unknown) MCH (units unknown) (unknown) (unknown) (no date) (unknown) (unknown) MCHC 33.5 (units unknown) (unknown) (unknown) (no date) (unknown) (unknown) MCHC (units unknown) (unknown) (unknown) (no date) (unknown) (unknown) MCV 97.1 (units unknown) (unknown) (unknown) (no date) (unknown) (unknown) MCV (units unknown) (unknown) (unknown) (no date) (unknown) (unknown) Medical History (Updated 01/14/23 @ 22:11 by Sj Dewey DO) (units unknown) (unknown) (unknown) (no date) (unknown) (unknown) Medication Instructions Recorded Confirmed Type (units unknown) (unknown) (unknown) (no date) (unknown) (unknown) Meds (units unknown) (unknown) (unknown) (no date) (unknown) (unknown) Sj Romo is a 53-year-old male with known history of alcohol abuse, (units unknown) (unknown) (unknown) (no date) (unknown) (unknown) Micro UA Comment Microscopic normal (units unknown) (unknown) (unknown) (no date) (unknown) (unknown) Micro UA Comment (units unknown) (unknown) (unknown) (no date) (unknown) (unknown) [place] # (Auto) 600 (units unknown) (unknown) (unknown) (no date) (unknown) (unknown) [place] # (Auto) (units unknown) (unknown) (unknown) (no date) (unknown) (unknown) [place] % (Auto) 14.9 H (units unknown) (unknown) (unknown) (no date) (unknown) (unknown) [place] % (Auto) (units unknown) (unknown) (unknown) (no date) (unknown) (unknown) Narrative: (units unknown) (unknown) (unknown) (no date) (unknown) (unknown) Neut # (Auto) 1800 (units unknown) (unknown) (unknown) (no date) (unknown) (unknown) Neut # (Auto) (units unknown) (unknown) (unknown) (no date) (unknown) (unknown) Neut % (Auto) 42.4 L (units unknown) (unknown) (unknown) (no date) (unknown) (unknown) Neut % (Auto) (units unknown) (unknown) (unknown) (no date) (unknown) (unknown) Objective (units unknown) (unknown) (unknown) (no date) (unknown) (unknown) Oxygen Delivery Method Room Air (units unknown) (unknown) (unknown) (no date) (unknown) (unknown) Oxygen Delivery Method (units unknown) (unknown) (unknown) (no date) (unknown) (unknown) PFSH (units unknown) (unknown) (unknown) (no date) (unknown) (unknown) PT 11.2 (units unknown) (unknown) (unknown) (no date) (unknown) (unknown) PT (units unknown) (unknown) (unknown) (no date) (unknown) (unknown) Patient: Sj Romo MR#: [id number] (units unknown) (unknown) (unknown) (no date) (unknown) (unknown) Plt Count 296 (units unknown) (unknown) (unknown) (no date) (unknown) (unknown) Plt Count (units unknown) (unknown) (unknown) (no date) (unknown) (unknown) Potassium 3.9 (units unknown) (unknown) (unknown) (no date) (unknown) (unknown) Potassium (units unknown) (unknown) (unknown) (no date) (unknown) (unknown) Provider: Genesis Dunn- (units unknown) (unknown) (unknown) (no date) (unknown) (unknown) Pulse Oximetry 91 96 (units unknown) (unknown) (unknown) (no date) (unknown) (unknown) Pulse Oximetry 92 (units unknown) (unknown) (unknown) (no date) (unknown) (unknown) Pulse Oximetry 94 94 (units unknown) (unknown) (unknown) (no date) (unknown) (unknown) Pulse Oximetry 94 95 (units unknown) (unknown) (unknown) (no date) (unknown) (unknown) Pulse Oximetry 94 96 (units unknown) (unknown) (unknown) (no date) (unknown) (unknown) Pulse Oximetry 94 (units unknown) (unknown) (unknown) (no date) (unknown) (unknown) Pulse Oximetry 95 95 100 (units unknown) (unknown) (unknown) (no date) (unknown) (unknown) Pulse Oximetry 95 96 (units unknown) (unknown) (unknown) (no date) (unknown) (unknown) Pulse Oximetry 95 (units unknown) (unknown) (unknown) (no date) (unknown) (unknown) Pulse Oximetry 96 94 (units unknown) (unknown) (unknown) (no date) (unknown) (unknown) Pulse Oximetry 96 96 (units unknown) (unknown) (unknown) (no date) (unknown) (unknown) Pulse Oximetry 96 (units unknown) (unknown) (unknown) (no date) (unknown) (unknown) Pulse Rate 156 H (units unknown) (unknown) (unknown) (no date) (unknown) (unknown) Pulse Rate 69 (units unknown) (unknown) (unknown) (no date) (unknown) (unknown) Pulse Rate 71 (units unknown) (unknown) (unknown) (no date) (unknown) (unknown) Pulse Rate 74 101 H (units unknown) (unknown) (unknown) (no date) (unknown) (unknown) Pulse Rate 74 (units unknown) (unknown) (unknown) (no date) (unknown) (unknown) Pulse Rate 75 (units unknown) (unknown) (unknown) (no date) (unknown) (unknown) Pulse Rate 77 (units unknown) (unknown) (unknown) (no date) (unknown) (unknown) Pulse Rate 78 60 57 L (units unknown) (unknown) (unknown) (no date) (unknown) (unknown) Pulse Rate 78 74 (units unknown) (unknown) (unknown) (no date) (unknown) (unknown) Pulse Rate 81 77 (units unknown) (unknown) (unknown) (no date) (unknown) (unknown) Pulse Rate 83 80 (units unknown) (unknown) (unknown) (no date) (unknown) (unknown) Pulse Rate 85 78 168 H (units unknown) (unknown) (unknown) (no date) (unknown) (unknown) Pulse Rate 89 94 H (units unknown) (unknown) (unknown) (no date) (unknown) (unknown) Pulse Rate 93 H 78 (units unknown) (unknown) (unknown) (no date) (unknown) (unknown) Pulse Rate 97 H 96 H (units unknown) (unknown) (unknown) (no date) (unknown) (unknown) RBC 3.80 L (units unknown) (unknown) (unknown) (no date) (unknown) (unknown) RBC (units unknown) (unknown) (unknown) (no date) (unknown) (unknown) RDW 13.2 (units unknown) (unknown) (unknown) (no date) (unknown) (unknown) RDW (units unknown) (unknown) (unknown) (no date) (unknown) (unknown) Respiratory Rate 10 L (units unknown) (unknown) (unknown) (no date) (unknown) (unknown) Respiratory Rate 11 L (units unknown) (unknown) (unknown) (no date) (unknown) (unknown) Respiratory Rate 13 13 (units unknown) (unknown) (unknown) (no date) (unknown) (unknown) Respiratory Rate 13 (units unknown) (unknown) (unknown) (no date) (unknown) (unknown) Respiratory Rate 14 14 (units unknown) (unknown) (unknown) (no date) (unknown) (unknown) Respiratory Rate 14 23 (units unknown) (unknown) (unknown) (no date) (unknown) (unknown) Respiratory Rate 14 (units unknown) (unknown) (unknown) (no date) (unknown) (unknown) Respiratory Rate 15 (units unknown) (unknown) (unknown) (no date) (unknown) (unknown) Respiratory Rate 16 (units unknown) (unknown) (unknown) (no date) (unknown) (unknown) Respiratory Rate 18 0 L 17 (units unknown) (unknown) (unknown) (no date) (unknown) (unknown) Respiratory Rate 19 15 (units unknown) (unknown) (unknown) (no date) (unknown) (unknown) Respiratory Rate 19 18 20 (units unknown) (unknown) (unknown) (no date) (unknown) (unknown) Respiratory Rate 24 17 (units unknown) (unknown) (unknown) (no date) (unknown) (unknown) Respiratory Rate (units unknown) (unknown) (unknown) (no date) (unknown) (unknown) SARS-CoV-2 (PCR) Negative (units unknown) (unknown) (unknown) (no date) (unknown) (unknown) SARS-CoV-2 (PCR) (units unknown) (unknown) (unknown) (no date) (unknown) (unknown) Signed By: (units unknown) (unknown) (unknown) (no date) (unknown) (unknown) Smoking Status: Milagro huang smoker (units unknown) (unknown) (unknown) (no date) (unknown) (unknown) Social History (units unknown) (unknown) (unknown) (no date) (unknown) (unknown) Sodium 140 (units unknown) (unknown) (unknown) (no date) (unknown) (unknown) Sodium (units unknown) (unknown) (unknown) (no date) (unknown) (unknown) Solostar U-100 Insulin) (units unknown) (unknown) (unknown) (no date) (unknown) (unknown) Time Patient Seen: 22:42 (units unknown) (unknown) (unknown) (no date) (unknown) (unknown) Total Bilirubin 0.4 (units unknown) (unknown) (unknown) (no date) (unknown) (unknown) Total Bilirubin (units unknown) (unknown) (unknown) (no date) (unknown) (unknown) Total Protein 7.2 (units unknown) (unknown) (unknown) (no date) (unknown) (unknown) Total Protein (units unknown) (unknown) (unknown) (no date) (unknown) (unknown) U Benzodiazepines Scrn Positive H (units unknown) (unknown) (unknown) (no date) (unknown) (unknown) U Benzodiazepines Scrn (units unknown) (unknown) (unknown) (no date) (unknown) (unknown) U Marijuana (THC) Screen Negative (units unknown) (unknown) (unknown) (no date) (unknown) (unknown) U Marijuana (THC) Screen (units unknown) (unknown) (unknown) (no date) (unknown) (unknown) U Methamphetamines Scrn Negative (units unknown) (unknown) (unknown) (no date) (unknown) (unknown) U Methamphetamines Scrn (units unknown) (unknown) (unknown) (no date) (unknown) (unknown) U Opiates 300ng/mL cut Positive H (units unknown) (unknown) (unknown) (no date) (unknown) (unknown) U Opiates 300ng/mL cut (units unknown) (unknown) (unknown) (no date) (unknown) (unknown) U Tricyclic Antidepress Negative (units unknown) (unknown) (unknown) (no date) (unknown) (unknown) U Tricyclic Antidepress (units unknown) (unknown) (unknown) (no date) (unknown) (unknown) Ur Amphetamines Screen Negative (units unknown) (unknown) (unknown) (no date) (unknown) (unknown) Ur Amphetamines Screen (units unknown) (unknown) (unknown) (no date) (unknown) (unknown) Ur Barbiturates Screen Negative (units unknown) (unknown) (unknown) (no date) (unknown) (unknown) Ur Barbiturates Screen (units unknown) (unknown) (unknown) (no date) (unknown) (unknown) Ur Culture Indicated ? Cult not indicated (units unknown) (unknown) (unknown) (no date) (unknown) (unknown) Ur Culture Indicated? (units unknown) (unknown) (unknown) (no date) (unknown) (unknown) Ur Leukocyte Esteras e Negative (units unknown) (unknown) (unknown) (no date) (unknown) (unknown) Ur Leukocyte Esterase (units unknown) (unknown) (unknown) (no date) (unknown) (unknown) Ur MDMA Scrn (Ecstasy) Negative (units unknown) (unknown) (unknown) (no date) (unknown) (unknown) Ur MDMA Scrn (Ecstasy) (units unknown) (unknown) (unknown) (no date) (unknown) (unknown) Ur Oxycodone Screen Negative (units unknown) (unknown) (unknown) (no date) (unknown) (unknown) Ur Oxycodone Screen (units unknown) (unknown) (unknown) (no date) (unknown) (unknown) Ur Phencyclidine Scr n Negative (units unknown) (unknown) (unknown) (no date) (unknown) (unknown) Ur Phencyclidine Scrn (units unknown) (unknown) (unknown) (no date) (unknown) (unknown) Ur Specific [place] 1.010 (units unknown) (unknown) (unknown) (no date) (unknown) (unknown) Ur Specific [place] (units unknown) (unknown) (unknown) (no date) (unknown) (unknown) Urine Appearance Clear (units unknown) (unknown) (unknown) (no date) (unknown) (unknown) Urine Appearance (units unknown) (unknown) (unknown) (no date) (unknown) (unknown) Urine Bacteria None seen (units unknown) (unknown) (unknown) (no date) (unknown) (unknown) Urine Bacteria (units unknown) (unknown) (unknown) (no date) (unknown) (unknown) Urine Bilirubin Negative (units unknown) (unknown) (unknown) (no date) (unknown) (unknown) Urine Bilirubin (units unknown) (unknown) (unknown) (no date) (unknown) (unknown) Urine Cocaine Screen Negative (units unknown) (unknown) (unknown) (no date) (unknown) (unknown) Urine Cocaine Screen (units unknown) (unknown) (unknown) (no date) (unknown) (unknown) Urine Color Yellow (units unknown) (unknown) (unknown) (no date) (unknown) (unknown) Urine Color (units unknown) (unknown) (unknown) (no date) (unknown) (unknown) Urine Glucose (UA) 2 + H (units unknown) (unknown) (unknown) (no date) (unknown) (unknown) Urine Glucose (UA) (units unknown) (unknown) (unknown) (no date) (unknown) (unknown) Urine Ketones Negative (units unknown) (unknown) (unknown) (no date) (unknown) (unknown) Urine Ketones (units unknown) (unknown) (unknown) (no date) (unknown) (unknown) Urine Methadone Screen Negative (units unknown) (unknown) (unknown) (no date) (unknown) (unknown) Urine Methadone Screen (units unknown) (unknown) (unknown) (no date) (unknown) (unknown) Urine Nitrate Negative (units unknown) (unknown) (unknown) (no date) (unknown) (unknown) Urine Nitrate (units unknown) (unknown) (unknown) (no date) (unknown) (unknown) Urine Occult Blood Negative (units unknown) (unknown) (unknown) (no date) (unknown) (unknown) Urine Occult Blood (units unknown) (unknown) (unknown) (no date) (unknown) (unknown) Urine Protein Negative (units unknown) (unknown) (unknown) (no date) (unknown) (unknown) Urine Protein (units unknown) (unknown) (unknown) (no date) (unknown) (unknown) Urine RBC None seen (units unknown) (unknown) (unknown) (no date) (unknown) (unknown) Urine RBC (units unknown) (unknown) (unknown) (no date) (unknown) (unknown) Urine Urobilinogen 1.0 (units unknown) (unknown) (unknown) (no date) (unknown) (unknown) Urine Urobilinogen (units unknown) (unknown) (unknown) (no date) (unknown) (unknown) Urine WBC None seen (units unknown) (unknown) (unknown) (no date) (unknown) (unknown) Urine WBC (units unknown) (unknown) (unknown) (no date) (unknown) (unknown) Urine pH 6.5 (units unknown) (unknown) (unknown) (no date) (unknown) (unknown) Urine pH (units unknown) (unknown) (unknown) (no date) (unknown) (unknown) Vital Signs (units unknown) (unknown) (unknown) (no date) (unknown) (unknown) WAS (units unknown) (unknown) (unknown) (no date) (unknown) (unknown) WBC 4.3 L (units unknown) (unknown) (unknown) (no date) (unknown) (unknown) WBC (units unknown) (unknown) (unknown) (no date) (unknown) (unknown) [Embedded Image Not Available] (units unknown) (unknown) (unknown) (no date) (unknown) (unknown) [From BETADINE] FEEL S LIKE (units unknown) (unknown) (unknown) (no date) (unknown) (unknown) [SHELLFISH DERIVED] LIKE IT (units unknown) (unknown) (unknown) (no date) (unknown) (unknown) abdomen.? Patient states he does not know who he is aware he is.? He is able to (units unknown) (unknown) (unknown) (no date) (unknown) (unknown) about a few mL left today when EMS arrived. (units unknown) (unknown) (unknown) (no date) (unknown) (unknown) atorvastatin 40 mg tablet 40 mg PO BEDTIME 01/14/23 01/14/23 History (units unknown) (unknown) (unknown) (no date) (unknown) (unknown) bathroom with some broken glass, medics state the glass was cleaned up they did (units unknown) (unknown) (unknown) (no date) (unknown) (unknown) bathroom.? They also note that they were called out for a wellness check (units unknown) (unknown) (unknown) (no date) (unknown) (unknown) chest and upper abdomen she is unsure.? Patient was found at home in the (units unknown) (unknown) (unknown) (no date) (unknown) (unknown) confused.? Patient states he drinks at least a 5th daily, he denies tobacco or (units unknown) (unknown) (unknown) (no date) (unknown) (unknown) dextroamphetamine-am p hetamine 20 20 mg PO BID 01/14/23 01/14/23 History (units unknown) (unknown) (unknown) (no date) (unknown) (unknown) does not give one.? Medics a girlfriend last saw the patient on she (units unknown) (unknown) (unknown) (no date) (unknown) (unknown) furosemide 20 mg tablet 20 mg PO DAILY 01/14/23 01/14/23 History (units unknown) (unknown) (unknown) (no date) (unknown) (unknown) give his name when h e is registered.? Patient is confused but follows commands (units unknown) (unknown) (unknown) (no date) (unknown) (unknown) has a small burn on his right forearm and he has bruising his girlfriend told (units unknown) (unknown) (unknown) (no date) (unknown) (unknown) has what appears to be scabbed superficial laceration over his right forehead he (units unknown) (unknown) (unknown) (no date) (unknown) (unknown) he is redirectable although he keeps saying he wants to get out of the bed.? He (units unknown) (unknown) (unknown) (no date) (unknown) (unknown) illicit.? He states he did not do his injections which he states are insulin.? (units unknown) (unknown) (unknown) (no date) (unknown) (unknown) insulin glargine 100 unit/mL (3 20 unit SUBCUT BEDTIME 01/14/23 01/14/23 History (units unknown) (unknown) (unknown) (no date) (unknown) (unknown) insulin lispro 100 unit/mL See Rx Instructions .Route .COMPLEX 01/14/23 01/14/23 (units unknown) (unknown) (unknown) (no date) (unknown) (unknown) insulin-dependent diabetes and chronic pain with a pain pump in his left (units unknown) (unknown) (unknown) (no date) (unknown) (unknown) kill himself when asked why he does not answer.? When asked if he has a plan he (units unknown) (unknown) (unknown) (no date) (unknown) (unknown) losartan 100 mg tablet 100 mg PO DAILY 01/14/23 01/14/23 History (units unknown) (unknown) (unknown) (no date) (unknown) (unknown) mL) subcutaneous pen (Lantus (units unknown) (unknown) (unknown) (no date) (unknown) (unknown) medics that is bruising on his left abdomen is from injections but onto his (units unknown) (unknown) (unknown) (no date) (unknown) (unknown) mg tablet (units unknown) (unknown) (unknown) (no date) (unknown) (unknown) not see anything amiss in the house but he had been found on the ground in the (units unknown) (unknown) (unknown) (no date) (unknown) (unknown) noted that he bought a bottle of hard liquor at that time and there was only (units unknown) (unknown) (unknown) (no date) (unknown) (unknown) penicillin G [PENICILLIN G] Allergy Unknown LEFT EAR Verified 07/27/18 10:10 (units unknown) (unknown) (unknown) (no date) (unknown) (unknown) povidone-iodine Allergy Unknown 'SKIN Verified 07/27/18 10:10 (units unknown) (unknown) (unknown) (no date) (unknown) (unknown) present at that time.? Patient does not recall what trauma occurred.? The (units unknown) (unknown) (unknown) (no date) (unknown) (unknown) propranolol 20 mg tablet 20 mg PO BID 01/14/23 01/14/23 History (units unknown) (unknown) (unknown) (no date) (unknown) (unknown) shellfish derived Allergy Unknown 'SKIN FELT Verified 07/27/18 10:10 (units unknown) (unknown) (unknown) (no date) (unknown) (unknown) soap [From BETADINE] Allergy Unknown 'SKIN Verified 07/27/18 10:10 (units unknown) (unknown) (unknown) (no date) (unknown) (unknown) somewhat repetitive. ? Patient denies pain, no shortness of breath, no GI or (units unknown) (unknown) (unknown) (no date) (unknown) (unknown) subcutaneous pen (Humalog KwikPen (units unknown) (unknown) (unknown) (no date) (unknown) (unknown) tamsulosin 0.4 mg capsule 0.4 mg PO DAILY 01/14/23 01/14/23 History (units unknown) (unknown) (unknown) (no date) (unknown) (unknown) urinary symptoms.? H e is moving all his extremities well.? Is conversant but (units unknown) (unknown) (unknown) (no date) (unknown) (unknown) wanted to kill himself to the medics and when asked he states he does want to (units unknown) (unknown) (unknown) (no date) (unknown) (unknown) yesterday they found blood in a different location but the patient was not (units unknown) (unknown) Result panel 234 (unknown) (no date) (unknown) (unknown) 237 mg/dl (unknown) (unknown) (no date) (unknown) (unknown) 237 mg/dl 98383-2 (unknown) (no date) (unknown) (unknown) 9.9 % 4548-4 (unknown) (no date) (unknown) (unknown) 9.9 % (unknown) Result panel 235 (unknown) (no date) (unknown) (unknown) 0 /ul (unknown) (unknown) (no date) (unknown) (unknown) 0 /ul (unknown) (unknown) (no date) (unknown) (unknown) 0.1 % (unknown) (unknown) (no date) (unknown) (unknown) 0.3 % (unknown) (unknown) (no date) (unknown) (unknown) 12.4 g/dl (unknown) (unknown) (no date) (unknown) (unknown) 13.0 % (unknown) (unknown) (no date) (unknown) (unknown) 13.7 % (unknown) (unknown) (no date) (unknown) (unknown) 13.7 % (unknown) (unknown) (no date) (unknown) (unknown) 200 /ul (unknown) (unknown) (no date) (unknown) (unknown) 3.84 x10 6/ul (unknown) (unknown) (no date) (unknown) (unknown) 32.4 pg (unknown) (unknown) (no date) (unknown) (unknown) 324 x10 3/ul (unknown) (unknown) (no date) (unknown) (unknown) 33.3 % (unknown) (unknown) (no date) (unknown) (unknown) 37.4 % (unknown) (unknown) (no date) (unknown) (unknown) 3700 /ul (unknown) (unknown) (no date) (unknown) (unknown) 4.1 % (unknown) (unknown) (no date) (unknown) (unknown) 4.6 x10 3/ul (unknown) (unknown) (no date) (unknown) (unknown) 600 /ul (unknown) (unknown) (no date) (unknown) (unknown) 81.8 % (unknown) (unknown) (no date) (unknown) (unknown) 81.8 % (unknown) (unknown) (no date) (unknown) (unknown) 97.5 fl (unknown) Result panel 236 (unknown) (no date) (unknown) (unknown) < 9 umol/l (unknown) Result panel 237 (unknown) (no date) (unknown) (unknown) 1.6 mg/dl (unknown) Result panel 238 (unknown) (no date) (unknown) (unknown) > 60 ml/min (unknown) (unknown) (no date) (unknown) (unknown) > 60 ml/min (unknown) (unknown) (no date) (unknown) (unknown) 0.52 mg/dl (unknown) (unknown) (no date) (unknown) (unknown) 0.6 mg/dl (unknown) (unknown) (no date) (unknown) (unknown) 1.3 (units unknown) (unknown) (unknown) (no date) (unknown) (unknown) 13 mg/dl (unknown) (unknown) (no date) (unknown) (unknown) 133 mmol/l (unknown) (unknown) (no date) (unknown) (unknown) 139 u/l (unknown) (unknown) (no date) (unknown) (unknown) 25.0 (units unknown) (unknown) (unknown) (no date) (unknown) (unknown) 29 mmol/l (unknown) (unknown) (no date) (unknown) (unknown) 3.1 g/dl (unknown) (unknown) (no date) (unknown) (unknown) 357 mg/dl (unknown) (unknown) (no date) (unknown) (unknown) 357 mg/dl (unknown) (unknown) (no date) (unknown) (unknown) 4.0 g/dl (unknown) (unknown) (no date) (unknown) (unknown) 4.3 mmol/l (unknown) (unknown) (no date) (unknown) (unknown) 7.1 g/dl (unknown) (unknown) (no date) (unknown) (unknown) 8.7 mg/dl (unknown) (unknown) (no date) (unknown) (unknown) 93 iu/l (unknown) (unknown) (no date) (unknown) (unknown) 93 mmol/l (unknown) (unknown) (no date) (unknown) (unknown) 96 iu/l (unknown) Result panel 239 (unknown) (no date) (unknown) (unknown) (no value) (units unknown) (unknown) (unknown) (no date) (unknown) (unknown) (U-100) Insulin) (units unknown) (unknown) (unknown) (no date) (unknown) (unknown) [id number] (units unknown) (unknown) (unknown) (no date) (unknown) (unknown) 01/14/23 01/14/23 01/14/23 Range/Units (units unknown) (unknown) (unknown) (no date) (unknown) (unknown) 01/14/23 10:45 (units unknown) (unknown) (unknown) (no date) (unknown) (unknown) 01/14/23 15:25 (units unknown) (unknown) (unknown) (no date) (unknown) (unknown) 01/14/23 17:01 (units unknown) (unknown) (unknown) (no date) (unknown) (unknown) 01/14/23 18:15 (units unknown) (unknown) (unknown) (no date) (unknown) (unknown) 01/14/23 23:10 (units unknown) (unknown) (unknown) (no date) (unknown) (unknown) 01/14/23 Range/Units (units unknown) (unknown) (unknown) (no date) (unknown) (unknown) 01/14/23 (units unknown) (unknown) (unknown) (no date) (unknown) (unknown) 10:45 10:45 10:45 (units unknown) (unknown) (unknown) (no date) (unknown) (unknown) 10:45 11:23 13:48 (units unknown) (unknown) (unknown) (no date) (unknown) (unknown) 14:09 14:09 15:25 (units unknown) (unknown) (unknown) (no date) (unknown) (unknown) 16:00 01/14/23 (units unknown) (unknown) (unknown) (no date) (unknown) (unknown) 16:30 01/14/23 (units unknown) (unknown) (unknown) (no date) (unknown) (unknown) 16:30 (units unknown) (unknown) (unknown) (no date) (unknown) (unknown) 17:00 01/14/23 (units unknown) (unknown) (unknown) (no date) (unknown) (unknown) 17:00 (units unknown) (unknown) (unknown) (no date) (unknown) (unknown) 17:30 01/14/23 (units unknown) (unknown) (unknown) (no date) (unknown) (unknown) 18:00 01/14/23 (units unknown) (unknown) (unknown) (no date) (unknown) (unknown) 18:00 (units unknown) (unknown) (unknown) (no date) (unknown) (unknown) 18:15 (units unknown) (unknown) (unknown) (no date) (unknown) (unknown) 18:30 01/14/23 (units unknown) (unknown) (unknown) (no date) (unknown) (unknown) 18:30 (units unknown) (unknown) (unknown) (no date) (unknown) (unknown) 19:00 01/14/23 (units unknown) (unknown) (unknown) (no date) (unknown) (unknown) 19:15 01/14/23 (units unknown) (unknown) (unknown) (no date) (unknown) (unknown) 19:15 (units unknown) (unknown) (unknown) (no date) (unknown) (unknown) 19:20 01/14/23 (units unknown) (unknown) (unknown) (no date) (unknown) (unknown) 19:25 01/14/23 (units unknown) (unknown) (unknown) (no date) (unknown) (unknown) 19:25 (units unknown) (unknown) (unknown) (no date) (unknown) (unknown) 19:30 01/14/23 (units unknown) (unknown) (unknown) (no date) (unknown) (unknown) 19:30 (units unknown) (unknown) (unknown) (no date) (unknown) (unknown) 19:34 01/14/23 (units unknown) (unknown) (unknown) (no date) (unknown) (unknown) 19:35 01/14/23 (units unknown) (unknown) (unknown) (no date) (unknown) (unknown) 19:35 (units unknown) (unknown) (unknown) (no date) (unknown) (unknown) 19:40 01/14/23 (units unknown) (unknown) (unknown) (no date) (unknown) (unknown) 19:45 01/14/23 (units unknown) (unknown) (unknown) (no date) (unknown) (unknown) 19:45 (units unknown) (unknown) (unknown) (no date) (unknown) (unknown) 19:50 01/14/23 (units unknown) (unknown) (unknown) (no date) (unknown) (unknown) 19:50 (units unknown) (unknown) (unknown) (no date) (unknown) (unknown) 19:55 01/14/23 (units unknown) (unknown) (unknown) (no date) (unknown) (unknown) 2016 white count of 4.3 normal platelets at 296. Coags are negative, renal (units unknown) (unknown) (unknown) (no date) (unknown) (unknown) 20:00 01/14/23 (units unknown) (unknown) (unknown) (no date) (unknown) (unknown) 20:00 (units unknown) (unknown) (unknown) (no date) (unknown) (unknown) 20:05 01/14/23 (units unknown) (unknown) (unknown) (no date) (unknown) (unknown) 20:05 (units unknown) (unknown) (unknown) (no date) (unknown) (unknown) 20:30 01/14/23 (units unknown) (unknown) (unknown) (no date) (unknown) (unknown) 21:00 01/14/23 (units unknown) (unknown) (unknown) (no date) (unknown) (unknown) 21:00 (units unknown) (unknown) (unknown) (no date) (unknown) (unknown) 21:30 01/14/23 (units unknown) (unknown) (unknown) (no date) (unknown) (unknown) 21:30 (units unknown) (unknown) (unknown) (no date) (unknown) (unknown) 22:00 (units unknown) (unknown) (unknown) (no date) (unknown) (unknown) 4 extremities moving , cranial nerves II through XII are intact, GCS is 15 (units unknown) (unknown) (unknown) (no date) (unknown) (unknown) ABG/GI: Nontender, soft, normal bowel sounds, no distention, no organomegaly, (units unknown) (unknown) (unknown) (no date) (unknown) (unknown) AGE 12YR (units unknown) (unknown) (unknown) (no date) (unknown) (unknown) ALT (<50) IU/L (units unknown) (unknown) (unknown) (no date) (unknown) (unknown) ALT 88 H (<50) IU/L (units unknown) (unknown) (unknown) (no date) (unknown) (unknown) APTT (26-36) SECONDS (units unknown) (unknown) (unknown) (no date) (unknown) (unknown) APTT 34 (26-36) SECONDS (units unknown) (unknown) (unknown) (no date) (unknown) (unknown) AST (17-59) IU/L (units unknown) (unknown) (unknown) (no date) (unknown) (unknown) AST 87 H (17-59) IU/L (units unknown) (unknown) (unknown) (no date) (unknown) (unknown) Acetaminophen (Acetaminophen 325 Mg Tablet) 650 mg PO NOW ONE (units unknown) (unknown) (unknown) (no date) (unknown) (unknown) Acetaminophen (Acetaminophen 325 Mg Tablet) 650 mg PO Q6H PRN (units unknown) (unknown) (unknown) (no date) (unknown) (unknown) Admin: 01/14/23 22:3 1 Dose: 404 mls/hr (units unknown) (unknown) (unknown) (no date) (unknown) (unknown) Admit Date/Time: 01/14/23 22:12 (units unknown) (unknown) (unknown) (no date) (unknown) (unknown) Admit Provider: Genesis Dunn (units unknown) (unknown) (unknown) (no date) (unknown) (unknown) Age/Sex: 53 / M (units unknown) (unknown) (unknown) (no date) (unknown) (unknown) Albumin (3.5-5.0) g/dL (units unknown) (unknown) (unknown) (no date) (unknown) (unknown) Albumin 4.0 (3.5-5.0 ) g/dL (units unknown) (unknown) (unknown) (no date) (unknown) (unknown) Albumin/Globulin Ratio (1.0-2.8) (units unknown) (unknown) (unknown) (no date) (unknown) (unknown) Albumin/Globulin Ratio 1.3 (1.0-2.8) (units unknown) (unknown) (unknown) (no date) (unknown) (unknown) Alkaline Phosphatase (38-126) U/L (units unknown) (unknown) (unknown) (no date) (unknown) (unknown) Alkaline Phosphatase 146 H (38-126) U/L (units unknown) (unknown) (unknown) (no date) (unknown) (unknown) Allergies (units unknown) (unknown) (unknown) (no date) (unknown) (unknown) Allergy/AdvReac Type Severity Reaction Status Date / Time (units unknown) (unknown) (unknown) (no date) (unknown) (unknown) Another facility is evaluating the patient. Patient signed out to Dr. Dewey, (units unknown) (unknown) (unknown) (no date) (unknown) (unknown) Antibody Screen Negative (units unknown) (unknown) (unknown) (no date) (unknown) (unknown) Antibody Screen (units unknown) (unknown) (unknown) (no date) (unknown) (unknown) Atorvastatin Calcium (Atorvastatin 20 Mg Tablet) 40 mg PO BEDTIME RAND (units unknown) (unknown) (unknown) (no date) (unknown) (unknown) Attestation: I personally reviewed and interpreted this ECG as follows: (units unknown) (unknown) (unknown) (no date) (unknown) (unknown) BACK: No CVA tenderness, no vertebral tenderness, no step-off's, no crepitus (units unknown) (unknown) (unknown) (no date) (unknown) (unknown) BUN (9-20) mg/dL (units unknown) (unknown) (unknown) (no date) (unknown) (unknown) BUN 8 L (9-20) mg/dL (units unknown) (unknown) (unknown) (no date) (unknown) (unknown) BUN/Creatinine Ratio (6-22) (units unknown) (unknown) (unknown) (no date) (unknown) (unknown) BUN/Creatinine Ratio 19.0 (6-22) (units unknown) (unknown) (unknown) (no date) (unknown) (unknown) BURNING' (units unknown) (unknown) (unknown) (no date) (unknown) (unknown) Baso # (Auto) (0-100 ) /uL (units unknown) (unknown) (unknown) (no date) (unknown) (unknown) Baso # (Auto) 100 (0-100) /uL (units unknown) (unknown) (unknown) (no date) (unknown) (unknown) Baso % (Auto) (0-2) % (units unknown) (unknown) (unknown) (no date) (unknown) (unknown) Baso % (Auto) 1.4 (0-2) % (units unknown) (unknown) (unknown) (no date) (unknown) (unknown) Benadryl and Solu-Medrol as he was felt stable. CT imaging of the brain shows (units unknown) (unknown) (unknown) (no date) (unknown) (unknown) Blood Pressure 113/5 6 L (units unknown) (unknown) (unknown) (no date) (unknown) (unknown) Blood Pressure 121/7 3 130/82 (units unknown) (unknown) (unknown) (no date) (unknown) (unknown) Blood Pressure 124/8 4 137/85 (units unknown) (unknown) (unknown) (no date) (unknown) (unknown) Blood Pressure 129/80 (units unknown) (unknown) (unknown) (no date) (unknown) (unknown) Blood Pressure 130/9 2 H 132/96 H (units unknown) (unknown) (unknown) (no date) (unknown) (unknown) Blood Pressure 137/7 2 106/52 L (units unknown) (unknown) (unknown) (no date) (unknown) (unknown) Blood Pressure 138/102 H (units unknown) (unknown) (unknown) (no date) (unknown) (unknown) Blood Pressure 138/7 6 143/94 H (units unknown) (unknown) (unknown) (no date) (unknown) (unknown) Blood Pressure 141/9 3 H (units unknown) (unknown) (unknown) (no date) (unknown) (unknown) Blood Pressure 148/8 2 H (units unknown) (unknown) (unknown) (no date) (unknown) (unknown) Blood Pressure 149/9 4 H 01/14/23 10:22 (units unknown) (unknown) (unknown) (no date) (unknown) (unknown) Blood Pressure 155/9 5 H (units unknown) (unknown) (unknown) (no date) (unknown) (unknown) Blood Pressure 162/103 H (units unknown) (unknown) (unknown) (no date) (unknown) (unknown) Blood Pressure 169/9 3 H (units unknown) (unknown) (unknown) (no date) (unknown) (unknown) Blood Pressure 175/108 H 158/95 H (units unknown) (unknown) (unknown) (no date) (unknown) (unknown) Blood Pressure (units unknown) (unknown) (unknown) (no date) (unknown) (unknown) Blood Type O Positive (units unknown) (unknown) (unknown) (no date) (unknown) (unknown) Blood Type (units unknown) (unknown) (unknown) (no date) (unknown) (unknown) COVID19 -Nasal RAPID Stat (units unknown) (unknown) (unknown) (no date) (unknown) (unknown) CVS: Heart sounds ar e normal, no murmur noted, No JVD. (units unknown) (unknown) (unknown) (no date) (unknown) (unknown) Calcium (8.4-10.2) mg/dL (units unknown) (unknown) (unknown) (no date) (unknown) (unknown) Calcium 8.5 (8.4-10.2) mg/dL (units unknown) (unknown) (unknown) (no date) (unknown) (unknown) Carbon Dioxide (22-32) mmol/L (units unknown) (unknown) (unknown) (no date) (unknown) (unknown) Carbon Dioxide 30 (22-32) mmol/L (units unknown) (unknown) (unknown) (no date) (unknown) (unknown) Chief Complaint: Trauma (units unknown) (unknown) (unknown) (no date) (unknown) (unknown) Chloride (98-107) mmol/L (units unknown) (unknown) (unknown) (no date) (unknown) (unknown) Chloride 100 (98-107 ) mmol/L (units unknown) (unknown) (unknown) (no date) (unknown) (unknown) Chronic low back pain (units unknown) (unknown) (unknown) (no date) (unknown) (unknown) Clinical Impression: (units unknown) (unknown) (unknown) (no date) (unknown) (unknown) Course (units unknown) (unknown) (unknown) (no date) (unknown) (unknown) Creatinine (0.66-1.25) mg/dL (units unknown) (unknown) (unknown) (no date) (unknown) (unknown) Creatinine 0.42 L (0.66-1.25) mg/dL (units unknown) (unknown) (unknown) (no date) (unknown) (unknown) : 1970 Acct:[id number] (units unknown) (unknown) (unknown) (no date) (unknown) (unknown) Date of Service: 01/14/23 (units unknown) (unknown) (unknown) (no date) (unknown) (unknown) Departure (units unknown) (unknown) (unknown) (no date) (unknown) (unknown) Dextrose (Dextrose 5 0 % In Water 25 Gm/50 Ml Syringe) 25 gm IV PRN PRN (units unknown) (unknown) (unknown) (no date) (unknown) (unknown) Diphenhydramine HCl (Diphenhydramine 50 Mg/Ml Vial) 50 mg IV NOW ONE (units unknown) (unknown) (unknown) (no date) (unknown) (unknown) Diphtheria/Tetanus/A c ell Pertussis (Tet,Diph,Pertuss(Isaias ll),Vac/Pf 0.5 Ml (units unknown) (unknown) (unknown) (no date) (unknown) (unknown) Discharge Plan (units unknown) (unknown) (unknown) (no date) (unknown) (unknown) Discontinued Medications (units unknown) (unknown) (unknown) (no date) (unknown) (unknown) Documented By: AGW (units unknown) (unknown) (unknown) (no date) (unknown) (unknown) Documented By: AT Co-signed By: MORA (units unknown) (unknown) (unknown) (no date) (unknown) (unknown) Documented By: AT (units unknown) (unknown) (unknown) (no date) (unknown) (unknown) Documented By: KB (units unknown) (unknown) (unknown) (no date) (unknown) (unknown) Documented By: KLS (units unknown) (unknown) (unknown) (no date) (unknown) (unknown) Documented By: MO (units unknown) (unknown) (unknown) (no date) (unknown) (unknown) Documented By: SB (units unknown) (unknown) (unknown) (no date) (unknown) (unknown) ECG Data (units unknown) (unknown) (unknown) (no date) (unknown) (unknown) ED Orders (units unknown) (unknown) (unknown) (no date) (unknown) (unknown) EKG-12 Lead Stat (units unknown) (unknown) (unknown) (no date) (unknown) (unknown) ENT: Patient has superficial scabbed laceration over his right brow, does not (units unknown) (unknown) (unknown) (no date) (unknown) (unknown) ER Physician: Sj Dewey D.O. (units unknown) (unknown) (unknown) (no date) (unknown) (unknown) ETOH [Ethanol (ETOH) ] Stat (units unknown) (unknown) (unknown) (no date) (unknown) (unknown) EXT: Atraumatic othe r than skin changes. hips are nontender, no pedal edema, (units unknown) (unknown) (unknown) (no date) (unknown) (unknown) EYES: PERRLA, EOMI (units unknown) (unknown) (unknown) (no date) (unknown) (unknown) Emergency Report (units unknown) (unknown) (unknown) (no date) (unknown) (unknown) Eos # (Auto) (0-450) /uL (units unknown) (unknown) (unknown) (no date) (unknown) (unknown) Eos # (Auto) 100 (0-450) /uL (units unknown) (unknown) (unknown) (no date) (unknown) (unknown) Eos % (Auto) (2-4) % (units unknown) (unknown) (unknown) (no date) (unknown) (unknown) Eos % (Auto) 2.2 (2-4) % (units unknown) (unknown) (unknown) (no date) (unknown) (unknown) Estimated GFR > 60 (>60) mL/min (units unknown) (unknown) (unknown) (no date) (unknown) (unknown) Estimated GFR (>60) mL/min (units unknown) (unknown) (unknown) (no date) (unknown) (unknown) Ethyl Alcohol ( - 10 ) mg/dL (units unknown) (unknown) (unknown) (no date) (unknown) (unknown) Ethyl Alcohol 308 H ( - 10) mg/dL (units unknown) (unknown) (unknown) (no date) (unknown) (unknown) Ethyl Alcohol 91 H ( - 10) mg/dL (units unknown) (unknown) (unknown) (no date) (unknown) (unknown) Exam (units unknown) (unknown) (unknown) (no date) (unknown) (unknown) FEELS LIKE (units unknown) (unknown) (unknown) (no date) (unknown) (unknown) Folic Acid (Folic Acid 1 Mg Tablet) 1 mg PO DAILY RAND (units unknown) (unknown) (unknown) (no date) (unknown) (unknown) GEN: C-collar was placed by EMS in the field but patient would not keep it on. (units unknown) (unknown) (unknown) (no date) (unknown) (unknown) General (units unknown) (unknown) (unknown) (no date) (unknown) (unknown) Globulin (1.7-4.1) g/dL (units unknown) (unknown) (unknown) (no date) (unknown) (unknown) Globulin 3.2 (1.7-4.1) g/dL (units unknown) (unknown) (unknown) (no date) (unknown) (unknown) Glucose (70-100) mg/dL (units unknown) (unknown) (unknown) (no date) (unknown) (unknown) Glucose 254 H (70-100) mg/dL (units unknown) (unknown) (unknown) (no date) (unknown) (unknown) Glucose POC 344 (units unknown) (unknown) (unknown) (no date) (unknown) (unknown) HEAD: No evidence of trauma, no raccoon/Johnson sign. (units unknown) (unknown) (unknown) (no date) (unknown) (unknown) HEARING (units unknown) (unknown) (unknown) (no date) (unknown) (unknown) HPI - Trauma (units unknown) (unknown) (unknown) (no date) (unknown) (unknown) HPI narrative: (units unknown) (unknown) (unknown) (no date) (unknown) (unknown) Hct (41-53) % (units unknown) (unknown) (unknown) (no date) (unknown) (unknown) Hct 36.9 L (41-53) % (units unknown) (unknown) (unknown) (no date) (unknown) (unknown) Hgb (13.5-17.5) g/dL (units unknown) (unknown) (unknown) (no date) (unknown) (unknown) Hgb 12.3 L (13.5-17.5) g/dL (units unknown) (unknown) (unknown) (no date) (unknown) (unknown) History of Present Illness (units unknown) (unknown) (unknown) (no date) (unknown) (unknown) Home Medications (units unknown) (unknown) (unknown) (no date) (unknown) (unknown) INR (0.9-1.3) (units unknown) (unknown) (unknown) (no date) (unknown) (unknown) INR 1.0 (0.9-1.3) (units unknown) (unknown) (unknown) (no date) (unknown) (unknown) Initial Vital Signs (units unknown) (unknown) (unknown) (no date) (unknown) (unknown) Initial Vital Signs: (units unknown) (unknown) (unknown) (no date) (unknown) (unknown) Insulin Glargine (Insulin Glargine 100 Unit/Ml 3ml Pen) 20 unit SUBCUT 2100 RAND (units unknown) (unknown) (unknown) (no date) (unknown) (unknown) Insulin Glargine (Insulin Glargine 100 Unit/Ml 3ml Pen) 20 unit SUBCUT NOW ONE (units unknown) (unknown) (unknown) (no date) (unknown) (unknown) Insulin Human Lispro (Insulin Lispro 100 Unit/Ml 3ml Vial) 0 unit SUBCUT ACHS (units unknown) (unknown) (unknown) (no date) (unknown) (unknown) Interpretation: (units unknown) (unknown) (unknown) (no date) (unknown) (unknown) [address] [address] (units unknown) (unknown) (unknown) (no date) (unknown) (unknown) Ketorolac Tromethamine (Ketorolac 30 Mg/Ml Vial) 15 mg IV NOW ONE (units unknown) (unknown) (unknown) (no date) (unknown) (unknown) LOSS AT (units unknown) (unknown) (unknown) (no date) (unknown) (unknown) Lab Data (units unknown) (unknown) (unknown) (no date) (unknown) (unknown) Lab Results (units unknown) (unknown) (unknown) (no date) (unknown) (unknown) Labs show an ETOH of 308, patient has a hemoglobin of 12 baseline compared to (units unknown) (unknown) (unknown) (no date) (unknown) (unknown) Labs: (units unknown) (unknown) (unknown) (no date) (unknown) (unknown) Lactate (0.7-2.1) mmol/L (units unknown) (unknown) (unknown) (no date) (unknown) (unknown) Lactate 2.1 1.9 (0.7-2.1) mmol/L (units unknown) (unknown) (unknown) (no date) (unknown) (unknown) Last Admin: 01/14/23 10:42 Dose: 0.5 mg (units unknown) (unknown) (unknown) (no date) (unknown) (unknown) Last Admin: 01/14/23 11:11 Dose: 50 mg (units unknown) (unknown) (unknown) (no date) (unknown) (unknown) Last Admin: 01/14/23 11:12 Dose: 125 mg (units unknown) (unknown) (unknown) (no date) (unknown) (unknown) Last Admin: 01/14/23 14:28 Dose: 260 mg (units unknown) (unknown) (unknown) (no date) (unknown) (unknown) Last Admin: 01/14/23 14:29 Dose: 650 mg (units unknown) (unknown) (unknown) (no date) (unknown) (unknown) Last Admin: 01/14/23 15:09 Dose: 0.5 ml (units unknown) (unknown) (unknown) (no date) (unknown) (unknown) Last Admin: 01/14/23 18:00 Dose: 15 mg (units unknown) (unknown) (unknown) (no date) (unknown) (unknown) Last Admin: 01/14/23 18:59 Dose: 20 unit (units unknown) (unknown) (unknown) (no date) (unknown) (unknown) Last Admin: 01/14/23 19:21 Dose: 25 mg (units unknown) (unknown) (unknown) (no date) (unknown) (unknown) Last Admin: 01/14/23 20:06 Dose: 1 mg (units unknown) (unknown) (unknown) (no date) (unknown) (unknown) Last Admin: 01/14/23 23:29 Dose: 100 mls/hr (units unknown) (unknown) (unknown) (no date) (unknown) (unknown) Last Admin: 01/14/23 23:29 Dose: 40 mg (units unknown) (unknown) (unknown) (no date) (unknown) (unknown) Last Infusion: 01/14/23 23:03 Dose: 404 mls/hr (units unknown) (unknown) (unknown) (no date) (unknown) (unknown) Limitations: no limitations (units unknown) (unknown) (unknown) (no date) (unknown) (unknown) Lipase (23-300) U/L (units unknown) (unknown) (unknown) (no date) (unknown) (unknown) Lipase 109 (23-300) U/L (units unknown) (unknown) (unknown) (no date) (unknown) (unknown) Lorazepam (Lorazepam 2 Mg/Ml Inj) 0 mg IV CIWAPRN PRN; Protocol (units unknown) (unknown) (unknown) (no date) (unknown) (unknown) Lorazepam (Lorazepam 2 Mg/Ml Inj) 0.5 mg IV NOW ONE (units unknown) (unknown) (unknown) (no date) (unknown) (unknown) Lorazepam (Lorazepam 2 Mg/Ml Inj) 0.5 mg IV Q2HR PRN (units unknown) (unknown) (unknown) (no date) (unknown) (unknown) Lorazepam (Lorazepam 2 Mg/Ml Inj) 1 mg IV NOW ONE (units unknown) (unknown) (unknown) (no date) (unknown) (unknown) Losartan Potassium (Losartan 50 Mg Tablet) 100 mg PO DAILY RAND (units unknown) (unknown) (unknown) (no date) (unknown) (unknown) Lymph # (Auto) (4177-0138) /uL (units unknown) (unknown) (unknown) (no date) (unknown) (unknown) Lymph # (Auto) 1700 (7279-8056) /uL (units unknown) (unknown) (unknown) (no date) (unknown) (unknown) Lymph % (Auto) (25-40) % (units unknown) (unknown) (unknown) (no date) (unknown) (unknown) Lymph % (Auto) 39.1 (25-40) % (units unknown) (unknown) (unknown) (no date) (unknown) (unknown) MCH (26-34) PG (units unknown) (unknown) (unknown) (no date) (unknown) (unknown) MCH 32.5 (26-34) PG (units unknown) (unknown) (unknown) (no date) (unknown) (unknown) MCHC (30-36) % (units unknown) (unknown) (unknown) (no date) (unknown) (unknown) MCHC 33.5 (30-36) % (units unknown) (unknown) (unknown) (no date) (unknown) (unknown) MCV (80-100) fL (units unknown) (unknown) (unknown) (no date) (unknown) (unknown) MCV 97.1 (80-100) fL (units unknown) (unknown) (unknown) (no date) (unknown) (unknown) MDM - Trauma (units unknown) (unknown) (unknown) (no date) (unknown) (unknown) MDM Narrative (units unknown) (unknown) (unknown) (no date) (unknown) (unknown) Medical History (Updated 01/14/23 @ 22:11 by Sj Dewey DO) (units unknown) (unknown) (unknown) (no date) (unknown) (unknown) Medical decision making narrative: (units unknown) (unknown) (unknown) (no date) (unknown) (unknown) Medication Instructions Recorded Confirmed (units unknown) (unknown) (unknown) (no date) (unknown) (unknown) Methylprednisolone (Methylprednisolone 125 Mg/2 Ml Vial) 125 mg IV NOW ONE (units unknown) (unknown) (unknown) (no date) (unknown) (unknown) Metoprolol Tartrate (Metoprolol Ir 25 Mg Tablet) 25 mg PO NOW ONE (units unknown) (unknown) (unknown) (no date) (unknown) (unknown) Micro UA Comment Microscopic normal (units unknown) (unknown) (unknown) (no date) (unknown) (unknown) Micro UA Comment (units unknown) (unknown) (unknown) (no date) (unknown) (unknown) Mode of arrival: EMS (units unknown) (unknown) (unknown) (no date) (unknown) (unknown) [place] # (Auto) (0-900 ) /uL (units unknown) (unknown) (unknown) (no date) (unknown) (unknown) [place] # (Auto) 600 (0-900) /uL (units unknown) (unknown) (unknown) (no date) (unknown) (unknown) [place] % (Auto) (3-14) % (units unknown) (unknown) (unknown) (no date) (unknown) (unknown) [place] % (Auto) 14.9 H (3-14) % (units unknown) (unknown) (unknown) (no date) (unknown) (unknown) Multivitamins (Multivitamin 1 Tablet) 1 tab PO DAILY RAND (units unknown) (unknown) (unknown) (no date) (unknown) (unknown) NECK: Nontender, painless range of motion, trachea midline (units unknown) (unknown) (unknown) (no date) (unknown) (unknown) NEURO: Oriented AOx3 , neuro is grossly intact, sensation and motor is normal all (units unknown) (unknown) (unknown) (no date) (unknown) (unknown) Naloxone HCl (Naloxone 0.4 Mg/Ml Vial) 0.2 mg IV Q2MIN PRN (units unknown) (unknown) (unknown) (no date) (unknown) (unknown) Narrative: (units unknown) (unknown) (unknown) (no date) (unknown) (unknown) Neut # (Auto) (0793-8087) /uL (units unknown) (unknown) (unknown) (no date) (unknown) (unknown) Neut # (Auto) 1800 (2279-6627) /uL (units unknown) (unknown) (unknown) (no date) (unknown) (unknown) Neut % (Auto) (50-75 ) % (units unknown) (unknown) (unknown) (no date) (unknown) (unknown) Neut % (Auto) 42.4 L (50-75) % (units unknown) (unknown) (unknown) (no date) (unknown) (unknown) Nontender, incisions healed. (units unknown) (unknown) (unknown) (no date) (unknown) (unknown) Ondansetron HCl (Ondansetron 4 Mg/2 Ml Inj) 4 mg IV Q6HR PRN (units unknown) (unknown) (unknown) (no date) (unknown) (unknown) Ordered: (units unknown) (unknown) (unknown) (no date) (unknown) (unknown) Orders (units unknown) (unknown) (unknown) (no date) (unknown) (unknown) Oxygen Delivery Method Room Air 01/14/23 10:22 (units unknown) (unknown) (unknown) (no date) (unknown) (unknown) Oxygen Delivery Method Room Air Room Air (units unknown) (unknown) (unknown) (no date) (unknown) (unknown) Oxygen Delivery Method Room Air (units unknown) (unknown) (unknown) (no date) (unknown) (unknown) Oxygen Delivery Method (units unknown) (unknown) (unknown) (no date) (unknown) (unknown) PRN Reason: Alcohol Withdrawal (units unknown) (unknown) (unknown) (no date) (unknown) (unknown) PRN Reason: Anxiety (units unknown) (unknown) (unknown) (no date) (unknown) (unknown) PRN Reason: Fever/Mild Pain (1-3) (units unknown) (unknown) (unknown) (no date) (unknown) (unknown) PRN Reason: Hypoglycemia (units unknown) (unknown) (unknown) (no date) (unknown) (unknown) PRN Reason: Nausea And Vomiting (units unknown) (unknown) (unknown) (no date) (unknown) (unknown) PRN Reason: Opiate Reversal (units unknown) (unknown) (unknown) (no date) (unknown) (unknown) PSYCH: Normal mood and affect (units unknown) (unknown) (unknown) (no date) (unknown) (unknown) PT (10.1-12.7) SECONDS (units unknown) (unknown) (unknown) (no date) (unknown) (unknown) PT 11.2 (10.1-12.7) SECONDS (units unknown) (unknown) (unknown) (no date) (unknown) (unknown) Pantoprazole Sodium (Pantoprazole 40 Mg Vial) 40 mg IV NOW ONE (units unknown) (unknown) (unknown) (no date) (unknown) (unknown) Pantoprazole Sodium (Pantoprazole Dr 20 Mg Tablet) 20 mg PO 0600 RAND (units unknown) (unknown) (unknown) (no date) (unknown) (unknown) Patient Disposition: Admitted As Inpatient (units unknown) (unknown) (unknown) (no date) (unknown) (unknown) Patient History (units unknown) (unknown) (unknown) (no date) (unknown) (unknown) Patient appears in moderate distress. Patient is confused has slightly slurred (units unknown) (unknown) (unknown) (no date) (unknown) (unknown) Patient denies pain, no shortness of breath, no GI or urinary symptoms. He is (units unknown) (unknown) (unknown) (no date) (unknown) (unknown) Patient had Solu-Medrol methylprednisolone for pretreatment for CT, he had (units unknown) (unknown) (unknown) (no date) (unknown) (unknown) Patient was being evaluated by 1 facility, they asked for repeat EKG for QTC (units unknown) (unknown) (unknown) (no date) (unknown) (unknown) Patient: Sj Romo MR#: [id number] (units unknown) (unknown) (unknown) (no date) (unknown) (unknown) Phenobarbital (Phenobarbital 65 Mg/Ml Vial) 260 mg IV NOW ONE (units unknown) (unknown) (unknown) (no date) (unknown) (unknown) Plt Count (150-400) X103/uL (units unknown) (unknown) (unknown) (no date) (unknown) (unknown) Plt Count 296 (150-400) X103/uL (units unknown) (unknown) (unknown) (no date) (unknown) (unknown) Point of Care Testing (units unknown) (unknown) (unknown) (no date) (unknown) (unknown) Positive Nexus criteria, there is no midline line tenderness, distracting (units unknown) (unknown) (unknown) (no date) (unknown) (unknown) Potassium (3.4-5.1) mmol/L (units unknown) (unknown) (unknown) (no date) (unknown) (unknown) Potassium 3.9 (3.4-5.1) mmol/L (units unknown) (unknown) (unknown) (no date) (unknown) (unknown) Propranolol HCl (Propranolol 10 Mg Tablet) 20 mg PO BID RAND (units unknown) (unknown) (unknown) (no date) (unknown) (unknown) Pulse Oximetry 92 (units unknown) (unknown) (unknown) (no date) (unknown) (unknown) Pulse Oximetry 94 94 (units unknown) (unknown) (unknown) (no date) (unknown) (unknown) Pulse Oximetry 94 95 (units unknown) (unknown) (unknown) (no date) (unknown) (unknown) Pulse Oximetry 94 (units unknown) (unknown) (unknown) (no date) (unknown) (unknown) Pulse Oximetry 95 (units unknown) (unknown) (unknown) (no date) (unknown) (unknown) Pulse Oximetry 96 94 (units unknown) (unknown) (unknown) (no date) (unknown) (unknown) Pulse Oximetry 96 95 (units unknown) (unknown) (unknown) (no date) (unknown) (unknown) Pulse Oximetry 96 96 (units unknown) (unknown) (unknown) (no date) (unknown) (unknown) Pulse Oximetry 96 (units unknown) (unknown) (unknown) (no date) (unknown) (unknown) Pulse Oximetry 99 01/14/23 10:22 (units unknown) (unknown) (unknown) (no date) (unknown) (unknown) Pulse Rate 101 H (units unknown) (unknown) (unknown) (no date) (unknown) (unknown) Pulse Rate 156 H 89 (units unknown) (unknown) (unknown) (no date) (unknown) (unknown) Pulse Rate 156 H (units unknown) (unknown) (unknown) (no date) (unknown) (unknown) Pulse Rate 60 (units unknown) (unknown) (unknown) (no date) (unknown) (unknown) Pulse Rate 69 78 (units unknown) (unknown) (unknown) (no date) (unknown) (unknown) Pulse Rate 71 (units unknown) (unknown) (unknown) (no date) (unknown) (unknown) Pulse Rate 74 78 (units unknown) (unknown) (unknown) (no date) (unknown) (unknown) Pulse Rate 74 (units unknown) (unknown) (unknown) (no date) (unknown) (unknown) Pulse Rate 75 85 (units unknown) (unknown) (unknown) (no date) (unknown) (unknown) Pulse Rate 77 (units unknown) (unknown) (unknown) (no date) (unknown) (unknown) Pulse Rate 78 168 H (units unknown) (unknown) (unknown) (no date) (unknown) (unknown) Pulse Rate 80 (units unknown) (unknown) (unknown) (no date) (unknown) (unknown) Pulse Rate 81 77 (units unknown) (unknown) (unknown) (no date) (unknown) (unknown) Pulse Rate 93 H 78 (units unknown) (unknown) (unknown) (no date) (unknown) (unknown) Pulse Rate 94 H 74 (units unknown) (unknown) (unknown) (no date) (unknown) (unknown) Pulse Rate 95 H 01/14/23 10:22 (units unknown) (unknown) (unknown) (no date) (unknown) (unknown) RBC (4.5-5.9) X106/uL (units unknown) (unknown) (unknown) (no date) (unknown) (unknown) RBC 3.80 L (4.5-5.9) X106/uL (units unknown) (unknown) (unknown) (no date) (unknown) (unknown) RDW (11.6-14.8) % (units unknown) (unknown) (unknown) (no date) (unknown) (unknown) RDW 13.2 (11.6-14.8) % (units unknown) (unknown) (unknown) (no date) (unknown) (unknown) RESP: Chest is nontender and has symmetric movement, no ecchymosis, breath (units unknown) (unknown) (unknown) (no date) (unknown) (unknown) Related Data (units unknown) (unknown) (unknown) (no date) (unknown) (unknown) Respiratory Rate 0 L (units unknown) (unknown) (unknown) (no date) (unknown) (unknown) Respiratory Rate 10 L (units unknown) (unknown) (unknown) (no date) (unknown) (unknown) Respiratory Rate 11 L (units unknown) (unknown) (unknown) (no date) (unknown) (unknown) Respiratory Rate 13 13 (units unknown) (unknown) (unknown) (no date) (unknown) (unknown) Respiratory Rate 13 (units unknown) (unknown) (unknown) (no date) (unknown) (unknown) Respiratory Rate 14 14 (units unknown) (unknown) (unknown) (no date) (unknown) (unknown) Respiratory Rate 14 18 (units unknown) (unknown) (unknown) (no date) (unknown) (unknown) Respiratory Rate 15 14 (units unknown) (unknown) (unknown) (no date) (unknown) (unknown) Respiratory Rate 15 19 (units unknown) (unknown) (unknown) (no date) (unknown) (unknown) Respiratory Rate 15 (units unknown) (unknown) (unknown) (no date) (unknown) (unknown) Respiratory Rate 16 19 (units unknown) (unknown) (unknown) (no date) (unknown) (unknown) Respiratory Rate 16 (units unknown) (unknown) (unknown) (no date) (unknown) (unknown) Respiratory Rate 18 01/14/23 10:22 (units unknown) (unknown) (unknown) (no date) (unknown) (unknown) Respiratory Rate 18 20 (units unknown) (unknown) (unknown) (no date) (unknown) (unknown) Respiratory Rate 23 (units unknown) (unknown) (unknown) (no date) (unknown) (unknown) Respiratory Rate 24 17 (units unknown) (unknown) (unknown) (no date) (unknown) (unknown) Review of Systems (units unknown) (unknown) (unknown) (no date) (unknown) (unknown) SARS-CoV-2 (PCR) (Negative) (units unknown) (unknown) (unknown) (no date) (unknown) (unknown) SARS-CoV-2 (PCR) Negative (Negative) (units unknown) (unknown) (unknown) (no date) (unknown) (unknown) RAND; Protocol (units unknown) (unknown) (unknown) (no date) (unknown) (unknown) SKIN: Patient has a small 2 cm burn on his right forearm that has blistered and (units unknown) (unknown) (unknown) (no date) (unknown) (unknown) Signed By: (units unknown) (unknown) (unknown) (no date) (unknown) (unknown) Smoking Status: Mil[place] r smoker (units unknown) (unknown) (unknown) (no date) (unknown) (unknown) Social History (units unknown) (unknown) (unknown) (no date) (unknown) (unknown) Sodium (137-145) mmol/L (units unknown) (unknown) (unknown) (no date) (unknown) (unknown) Sodium 140 (137-145) mmol/L (units unknown) (unknown) (unknown) (no date) (unknown) (unknown) Sodium Chloride (Normal Saline 0.9%) 1,000 mls @ 100 mls/hr IV CONT RADN (units unknown) (unknown) (unknown) (no date) (unknown) (unknown) Solostar U-100 Insulin) (units unknown) (unknown) (unknown) (no date) (unknown) (unknown) Source: patient, EMS , RN notes reviewed and old records reviewed (units unknown) (unknown) (unknown) (no date) (unknown) (unknown) Stated Complaint: Trauma (units unknown) (unknown) (unknown) (no date) (unknown) (unknown) Stop: 01/14/23 10:27 (units unknown) (unknown) (unknown) (no date) (unknown) (unknown) Stop: 01/14/23 10:29 (units unknown) (unknown) (unknown) (no date) (unknown) (unknown) Stop: 01/14/23 10:58 (units unknown) (unknown) (unknown) (no date) (unknown) (unknown) Stop: 01/14/23 13:43 (units unknown) (unknown) (unknown) (no date) (unknown) (unknown) Stop: 01/14/23 14:19 (units unknown) (unknown) (unknown) (no date) (unknown) (unknown) Stop: 01/14/23 17:53 (units unknown) (unknown) (unknown) (no date) (unknown) (unknown) Stop: 01/14/23 18:30 (units unknown) (unknown) (unknown) (no date) (unknown) (unknown) Stop: 01/14/23 19:17 (units unknown) (unknown) (unknown) (no date) (unknown) (unknown) Stop: 01/14/23 19:50 (units unknown) (unknown) (unknown) (no date) (unknown) (unknown) Stop: 01/14/23 22:11 (units unknown) (unknown) (unknown) (no date) (unknown) (unknown) Stop: 01/14/23 22:39 (units unknown) (unknown) (unknown) (no date) (unknown) (unknown) Stop: 01/18/23 09:01 (units unknown) (unknown) (unknown) (no date) (unknown) (unknown) Substance Use Type: does not use (units unknown) (unknown) (unknown) (no date) (unknown) (unknown) Suicidal ideation, Alcohol abuse, Facial laceration, Encephalopathy, Atrial (units unknown) (unknown) (unknown) (no date) (unknown) (unknown) Syringe) 0.5 ml IM .ONCE ONE (units unknown) (unknown) (unknown) (no date) (unknown) (unknown) Tamsulosin HCl (Tamsulosin 0.4 Mg Capsule) 0.4 mg PO DAILY RAND (units unknown) (unknown) (unknown) (no date) (unknown) (unknown) Temperature 97.4 F L 01/14/23 10:22 (units unknown) (unknown) (unknown) (no date) (unknown) (unknown) They also note that they were called out for a wellness check yesterday they (units unknown) (unknown) (unknown) (no date) (unknown) (unknown) Thiamine HCl (Thiamine 100 Mg Tablet) 100 mg PO DAILY RAND (units unknown) (unknown) (unknown) (no date) (unknown) (unknown) Thiamine HCl 100 mg/ Sodium (Chloride) 101 mls @ 404 mls/hr IV NOW ONE (units unknown) (unknown) (unknown) (no date) (unknown) (unknown) This is a 53-year-ol d male who appears intoxicated, he does have scabbing with a (units unknown) (unknown) (unknown) (no date) (unknown) (unknown) This is a 53-year-ol d male with known history of alcohol abuse, insulin (units unknown) (unknown) (unknown) (no date) (unknown) (unknown) Time Seen by Provider: 01/14/23 10:26 (units unknown) (unknown) (unknown) (no date) (unknown) (unknown) To sleep sinus rhyth m rate of 72 OH 130 QRS of 98 QTC [address]. No acute ST (units unknown) (unknown) (unknown) (no date) (unknown) (unknown) Total Bilirubin (0.2-1.3) mg/dL (units unknown) (unknown) (unknown) (no date) (unknown) (unknown) Total Bilirubin 0.4 (0.2-1.3) mg/dL (units unknown) (unknown) (unknown) (no date) (unknown) (unknown) Total Protein (6.3-8.2) g/dL (units unknown) (unknown) (unknown) (no date) (unknown) (unknown) Total Protein 7.2 (6.3-8.2) g/dL (units unknown) (unknown) (unknown) (no date) (unknown) (unknown) Tylenol her headache and phenobarb 260 for alcohol withdrawal patient has not (units unknown) (unknown) (unknown) (no date) (unknown) (unknown) U Benzodiazepines Scrn (Negative) (units unknown) (unknown) (unknown) (no date) (unknown) (unknown) U Benzodiazepines Scrn Positive H (Negative) (units unknown) (unknown) (unknown) (no date) (unknown) (unknown) U Marijuana (THC) Screen (Negative) (units unknown) (unknown) (unknown) (no date) (unknown) (unknown) U Marijuana (THC) Screen Negative (Negative) (units unknown) (unknown) (unknown) (no date) (unknown) (unknown) U Methamphetamines Scrn (Negative) (units unknown) (unknown) (unknown) (no date) (unknown) (unknown) U Methamphetamines Scrn Negative (Negative) (units unknown) (unknown) (unknown) (no date) (unknown) (unknown) U Opiates 300ng/mL cut (Negative) (units unknown) (unknown) (unknown) (no date) (unknown) (unknown) U Opiates 300ng/mL cut Positive H (Negative) (units unknown) (unknown) (unknown) (no date) (unknown) (unknown) U Tricyclic Antidepress (Negative) (units unknown) (unknown) (unknown) (no date) (unknown) (unknown) U Tricyclic Antidepress Negative (Negative) (units unknown) (unknown) (unknown) (no date) (unknown) (unknown) Ur Amphetamines Screen (Negative) (units unknown) (unknown) (unknown) (no date) (unknown) (unknown) Ur Amphetamines Screen Negative (Negative) (units unknown) (unknown) (unknown) (no date) (unknown) (unknown) Ur Barbiturates Screen (Negative) (units unknown) (unknown) (unknown) (no date) (unknown) (unknown) Ur Barbiturates Screen Negative (Negative) (units unknown) (unknown) (unknown) (no date) (unknown) (unknown) Ur Culture Indicated ? Cult not indicated (units unknown) (unknown) (unknown) (no date) (unknown) (unknown) Ur Culture Indicated? (units unknown) (unknown) (unknown) (no date) (unknown) (unknown) Ur Leukocyte [place]steras e (NEGATIVE) (units unknown) (unknown) (unknown) (no date) (unknown) (unknown) Ur Leukocyte Esteras e Negative (NEGATIVE) (units unknown) (unknown) (unknown) (no date) (unknown) (unknown) Ur MDMA Scrn (Ecstasy) (Negative) (units unknown) (unknown) (unknown) (no date) (unknown) (unknown) Ur MDMA Scrn (Ecstasy) Negative (Negative) (units unknown) (unknown) (unknown) (no date) (unknown) (unknown) Ur Oxycodone Screen (Negative) (units unknown) (unknown) (unknown) (no date) (unknown) (unknown) Ur Oxycodone Screen Negative (Negative) (units unknown) (unknown) (unknown) (no date) (unknown) (unknown) Ur Phencyclidine Scr n (Negative) (units unknown) (unknown) (unknown) (no date) (unknown) (unknown) Ur Phencyclidine Scr n Negative (Negative) (units unknown) (unknown) (unknown) (no date) (unknown) (unknown) Ur Specific [place] (1.000-1.035) (units unknown) (unknown) (unknown) (no date) (unknown) (unknown) Ur Specific [place] 1.010 (1.000-1.035) (units unknown) (unknown) (unknown) (no date) (unknown) (unknown) Urine Appearance Clear (units unknown) (unknown) (unknown) (no date) (unknown) (unknown) Urine Appearance (units unknown) (unknown) (unknown) (no date) (unknown) (unknown) Urine Bacteria (None) (units unknown) (unknown) (unknown) (no date) (unknown) (unknown) Urine Bacteria None seen (None) (units unknown) (unknown) (unknown) (no date) (unknown) (unknown) Urine Bilirubin (NEGATIVE) (units unknown) (unknown) (unknown) (no date) (unknown) (unknown) Urine Bilirubin Negative (NEGATIVE) (units unknown) (unknown) (unknown) (no date) (unknown) (unknown) Urine Cocaine Screen (Negative) (units unknown) (unknown) (unknown) (no date) (unknown) (unknown) Urine Cocaine Screen Negative (Negative) (units unknown) (unknown) (unknown) (no date) (unknown) (unknown) Urine Color Yellow (units unknown) (unknown) (unknown) (no date) (unknown) (unknown) Urine Color (units unknown) (unknown) (unknown) (no date) (unknown) (unknown) Urine Glucose (UA) (Negative) g/dL (units unknown) (unknown) (unknown) (no date) (unknown) (unknown) Urine Glucose (UA) 2 + H (Negative) g/dL (units unknown) (unknown) (unknown) (no date) (unknown) (unknown) Urine Ketones (NEGATIVE) (units unknown) (unknown) (unknown) (no date) (unknown) (unknown) Urine Ketones Negative (NEGATIVE) (units unknown) (unknown) (unknown) (no date) (unknown) (unknown) Urine Methadone Screen (Negative) (units unknown) (unknown) (unknown) (no date) (unknown) (unknown) Urine Methadone Screen Negative (Negative) (units unknown) (unknown) (unknown) (no date) (unknown) (unknown) Urine Nitrate (Negative) (units unknown) (unknown) (unknown) (no date) (unknown) (unknown) Urine Nitrate Negative (Negative) (units unknown) (unknown) (unknown) (no date) (unknown) (unknown) Urine Occult Blood (Negative) (units unknown) (unknown) (unknown) (no date) (unknown) (unknown) Urine Occult Blood Negative (Negative) (units unknown) (unknown) (unknown) (no date) (unknown) (unknown) Urine Protein (Negative) (units unknown) (unknown) (unknown) (no date) (unknown) (unknown) Urine Protein Negative (Negative) (units unknown) (unknown) (unknown) (no date) (unknown) (unknown) Urine RBC (0-5/HPF) (units unknown) (unknown) (unknown) (no date) (unknown) (unknown) Urine RBC None seen (0-5/HPF) (units unknown) (unknown) (unknown) (no date) (unknown) (unknown) Urine Urobilinogen (0.2) E.U./dL (units unknown) (unknown) (unknown) (no date) (unknown) (unknown) Urine Urobilinogen 1.0 (0.2) E.U./dL (units unknown) (unknown) (unknown) (no date) (unknown) (unknown) Urine WBC (0-5/HPF) (units unknown) (unknown) (unknown) (no date) (unknown) (unknown) Urine WBC None seen (0-5/HPF) (units unknown) (unknown) (unknown) (no date) (unknown) (unknown) Urine pH (4.5-8.0) (units unknown) (unknown) (unknown) (no date) (unknown) (unknown) Urine pH 6.5 (4.5-8.0) (units unknown) (unknown) (unknown) (no date) (unknown) (unknown) Vital Signs - 8 hr (units unknown) (unknown) (unknown) (no date) (unknown) (unknown) Vital Signs (units unknown) (unknown) (unknown) (no date) (unknown) (unknown) Vital signs: (units unknown) (unknown) (unknown) (no date) (unknown) (unknown) WAS (units unknown) (unknown) (unknown) (no date) (unknown) (unknown) WBC (4.5-11.0) X103/uL (units unknown) (unknown) (unknown) (no date) (unknown) (unknown) WBC 4.3 L (4.5-11.0) X103/uL (units unknown) (unknown) (unknown) (no date) (unknown) (unknown) [Embedded Image Not Available] (units unknown) (unknown) (unknown) (no date) (unknown) (unknown) [From BETADINE] FEEL S LIKE (units unknown) (unknown) (unknown) (no date) (unknown) (unknown) [SHELLFISH DERIVED] LIKE IT (units unknown) (unknown) (unknown) (no date) (unknown) (unknown) a small burn on his right forearm and he has bruising his girlfriend told medics (units unknown) (unknown) (unknown) (no date) (unknown) (unknown) abdomen pelvis shows no acute traumatic injury, remote left-sided rib fractures (units unknown) (unknown) (unknown) (no date) (unknown) (unknown) alcohol intake frequency: 0-2 drinks per day (units unknown) (unknown) (unknown) (no date) (unknown) (unknown) allergy to iodine which he did not tell us earlier. Was pretreated with (units unknown) (unknown) (unknown) (no date) (unknown) (unknown) and when asked he states he does want to kill himself when asked why he does not (units unknown) (unknown) (unknown) (no date) (unknown) (unknown) answer. When asked i f he has a plan he does not give one. Medics a girlfriend (units unknown) (unknown) (unknown) (no date) (unknown) (unknown) anything amiss in e house but he had been found on the ground in the bathroom. (units unknown) (unknown) (unknown) (no date) (unknown) (unknown) appears older with healing skin underneath, warm and dry, no crepitus and (units unknown) (unknown) (unknown) (no date) (unknown) (unknown) arrived. (units unknown) (unknown) (unknown) (no date) (unknown) (unknown) atorvastatin 40 mg tablet 40 mg PO BEDTIME 01/14/23 01/14/23 (units unknown) (unknown) (unknown) (no date) (unknown) (unknown) been tachycardic since then, no hypertension. Patient did receive a dose of IV (units unknown) (unknown) (unknown) (no date) (unknown) (unknown) chest abdomen pelvis there was some delay as it was found patient has reported (units unknown) (unknown) (unknown) (no date) (unknown) (unknown) chest and abdomen although it appears little bit older, and he has a burn on his (units unknown) (unknown) (unknown) (no date) (unknown) (unknown) chest, right upper abdomen and right lower abdomen. (units unknown) (unknown) (unknown) (no date) (unknown) (unknown) currently voluntary seeking dual treatment. (units unknown) (unknown) (unknown) (no date) (unknown) (unknown) dependent diabetes and chronic pain with a pain pump in his left abdomen. Patie (units unknown) (unknown) (unknown) (no date) (unknown) (unknown) dextroamphetamine-am p hetamine 20 20 mg PO BID 01/14/23 01/14/23 (units unknown) (unknown) (unknown) (no date) (unknown) (unknown) do his injections which he states are insulin. He states he has a pain pump in (units unknown) (unknown) (unknown) (no date) (unknown) (unknown) drinks at least a 5t h daily, he denies tobacco or illicit. He states he did not (units unknown) (unknown) (unknown) (no date) (unknown) (unknown) elevation or depression. (units unknown) (unknown) (unknown) (no date) (unknown) (unknown) eptal hematoma, no dental or oral injury, airway is normal and with normal (units unknown) (unknown) (unknown) (no date) (unknown) (unknown) fibrillation with RVR (units unknown) (unknown) (unknown) (no date) (unknown) (unknown) found blood in a different location but the patient was not present at that (units unknown) (unknown) (unknown) (no date) (unknown) (unknown) function at baseline at 0.42 normal electrolytes glucose is 254, AST ALT alk (units unknown) (unknown) (unknown) (no date) (unknown) (unknown) furosemide 20 mg tablet 20 mg PO DAILY 01/14/23 01/14/23 (units unknown) (unknown) (unknown) (no date) (unknown) (unknown) gape, trachea is midline, TM's are normal no hemotypanum, Nares are clear, no s (units unknown) (unknown) (unknown) (no date) (unknown) (unknown) ground there was reportedly some glass at the scene and the medics state that (units unknown) (unknown) (unknown) (no date) (unknown) (unknown) hematoma. CT C-spine shows degenerative change but no fracture. CT chest (units unknown) (unknown) (unknown) (no date) (unknown) (unknown) hernia and stable lung nodules measuring 6 mm. (units unknown) (unknown) (unknown) (no date) (unknown) (unknown) his alcohol should b e around 100 around 1845. Patient does have some suicidal (units unknown) (unknown) (unknown) (no date) (unknown) (unknown) his belly. He did make statements that he wanted to kill himself to the medics (units unknown) (unknown) (unknown) (no date) (unknown) (unknown) his prior injuries with chest and abdominal bruising, with CT head, C-spine and (units unknown) (unknown) (unknown) (no date) (unknown) (unknown) injury, altered mental status, neuro deficit, positive for recent EtOH. (units unknown) (unknown) (unknown) (no date) (unknown) (unknown) insulin glargine 100 unit/mL (3 20 unit SUBCUT BEDTIME 01/14/23 01/14/23 (units unknown) (unknown) (unknown) (no date) (unknown) (unknown) insulin lispro 100 unit/mL See Rx Instructions .Route .COMPLEX 01/14/23 01/14/23 (units unknown) (unknown) (unknown) (no date) (unknown) (unknown) last saw the patient on she noted that he bought a bottle of hard (units unknown) (unknown) (unknown) (no date) (unknown) (unknown) leave. 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 as he has been otherwise medically cleared (units unknown) (unknown) (unknown) (no date) (unknown) (unknown) liquor at that time and there was only about a few mL left today when EMS (units unknown) (unknown) (unknown) (no date) (unknown) (unknown) lorazepam when he initially came as patient was a little agitated and trying to (units unknown) (unknown) (unknown) (no date) (unknown) (unknown) losartan 100 mg tablet 100 mg PO DAILY 01/14/23 01/14/23 (units unknown) (unknown) (unknown) (no date) (unknown) (unknown) mL) subcutaneous pen (Lantus (units unknown) (unknown) (unknown) (no date) (unknown) (unknown) medications or prolong his QT. He has a prior in the past and had a 449 QTC. (units unknown) (unknown) (unknown) (no date) (unknown) (unknown) mg tablet (units unknown) (unknown) (unknown) (no date) (unknown) (unknown) moving all his extremities well. Is conversant but confused. Patient states he (units unknown) (unknown) (unknown) (no date) (unknown) (unknown) negative. Patient wa s CT scan secondary to intoxication unclear mechanism of (units unknown) (unknown) (unknown) (no date) (unknown) (unknown) normal color and temperature, normal range of motion of extremities with normal (units unknown) (unknown) (unknown) (no date) (unknown) (unknown) nt states he does no t know who he is aware he is. He is able to give his name (units unknown) (unknown) (unknown) (no date) (unknown) (unknown) obtained is unclear what exactly occurred. Patient was called out as a modified (units unknown) (unknown) (unknown) (no date) (unknown) (unknown) occlusion, No bony tenderness (units unknown) (unknown) (unknown) (no date) (unknown) (unknown) pelvic rock is negative, patient has device in the left lateral abdomen. (units unknown) (unknown) (unknown) (no date) (unknown) (unknown) penicillin G [PENICILLIN G] Allergy Unknown LEFT EAR Verified 07/27/18 10:10 (units unknown) (unknown) (unknown) (no date) (unknown) (unknown) phos are 8788 and 14 6 with a negative bilirubin and lipase of 109. EKG shows a (units unknown) (unknown) (unknown) (no date) (unknown) (unknown) povidone-iodine Allergy Unknown 'SKIN Verified 07/27/18 10:10 (units unknown) (unknown) (unknown) (no date) (unknown) (unknown) propranolol 20 mg tablet 20 mg PO BID 01/14/23 01/14/23 (units unknown) (unknown) (unknown) (no date) (unknown) (unknown) redirectable althoug h he keeps saying he wants to get out of the bed. He has (units unknown) (unknown) (unknown) (no date) (unknown) (unknown) right forearm that also appears little bit older. Patient was found on the (units unknown) (unknown) (unknown) (no date) (unknown) (unknown) seeking placement bu t currently voluntary. (units unknown) (unknown) (unknown) (no date) (unknown) (unknown) shellfish derived Allergy Unknown 'SKIN FELT Verified 07/27/18 10:10 (units unknown) (unknown) (unknown) (no date) (unknown) (unknown) sinus rhythm no acut e ST changes. Initial chest x-ray and pelvic x-ray is (units unknown) (unknown) (unknown) (no date) (unknown) (unknown) soap [From BETADINE] Allergy Unknown 'SKIN Verified 07/27/18 10:10 (units unknown) (unknown) (unknown) (no date) (unknown) (unknown) soft tissue injury over the super to right orbit/right frontal bone with a small (units unknown) (unknown) (unknown) (no date) (unknown) (unknown) some blood at the scene in a different location. Patient had labs, imaging (units unknown) (unknown) (unknown) (no date) (unknown) (unknown) some broken glass, medics state the glass was cleaned up they did not see (units unknown) (unknown) (unknown) (no date) (unknown) (unknown) sounds are normal no crackles, wheezes or rales (units unknown) (unknown) (unknown) (no date) (unknown) (unknown) speech appears intoxicated but is conversant. (units unknown) (unknown) (unknown) (no date) (unknown) (unknown) subcutaneous pen (Humalog KwikPen (units unknown) (unknown) (unknown) (no date) (unknown) (unknown) superficial lack of the right forehead, he has some bruising of his anterior (units unknown) (unknown) (unknown) (no date) (unknown) (unknown) tamsulosin 0.4 mg capsule 0.4 mg PO DAILY 01/14/23 01/14/23 (units unknown) (unknown) (unknown) (no date) (unknown) (unknown) tendon exam, 2+ pulses in all four extremities (units unknown) (unknown) (unknown) (no date) (unknown) (unknown) that is bruising on his left abdomen is from injections but onto his chest and (units unknown) (unknown) (unknown) (no date) (unknown) (unknown) they wanted less kitty n 450 repeat is 497. Patient had Benadryl but no other (units unknown) (unknown) (unknown) (no date) (unknown) (unknown) they were there the day before patient was not present at home but there was (units unknown) (unknown) (unknown) (no date) (unknown) (unknown) thoughts no clear active clot described to myself. That was social work (units unknown) (unknown) (unknown) (no date) (unknown) (unknown) time. Patient does not recall what trauma occurred. The somewhat repetitive. (units unknown) (unknown) (unknown) (no date) (unknown) (unknown) trauma. (units unknown) (unknown) (unknown) (no date) (unknown) (unknown) upper abdomen she is unsure. Patient was found at home in the bathroom with (units unknown) (unknown) (unknown) (no date) (unknown) (unknown) what appears to be scabbed superficial laceration over his right forehead he has (units unknown) (unknown) (unknown) (no date) (unknown) (unknown) when he is registered. Patient is confused but follows commands he is (units unknown) (unknown) (unknown) (no date) (unknown) (unknown) with remote left scapular and L1-L2 transverse process fractures, small hiatal (units unknown) (unknown) (unknown) (no date) (unknown) (unknown) without decubitus. Patient has ecchymosis that is about 4 cm on his anterior (units unknown) (unknown) Result panel 240 (unknown) (no date) (unknown) (unknown) 177 pg/ml (unknown) (unknown) (no date) (unknown) (unknown) 177 pg/ml (unknown) Result panel 241 (unknown) (no date) (unknown) (unknown) (no value) (units unknown) (unknown) (unknown) (no date) (unknown) (unknown) (U-100) Insulin) (units unknown) (unknown) (unknown) (no date) (unknown) (unknown) (past 8 hours): (units unknown) (unknown) (unknown) (no date) (unknown) (unknown) -lives alone, permanently disabled (units unknown) (unknown) (unknown) (no date) (unknown) (unknown) [id number] (units unknown) (unknown) (unknown) (no date) (unknown) (unknown) 01/14/23 01/14/23 01/14/23 (units unknown) (unknown) (unknown) (no date) (unknown) (unknown) 01/14/23 10:45 (units unknown) (unknown) (unknown) (no date) (unknown) (unknown) 01/14/23 (units unknown) (unknown) (unknown) (no date) (unknown) (unknown) 10:45 10:45 10:45 (units unknown) (unknown) (unknown) (no date) (unknown) (unknown) 10:45 11:23 13:48 (units unknown) (unknown) (unknown) (no date) (unknown) (unknown) 14:09 14:09 15:25 (units unknown) (unknown) (unknown) (no date) (unknown) (unknown) 15:00 01/14/23 (units unknown) (unknown) (unknown) (no date) (unknown) (unknown) 15:02 01/14/23 (units unknown) (unknown) (unknown) (no date) (unknown) (unknown) 15:02 (units unknown) (unknown) (unknown) (no date) (unknown) (unknown) 15:30 01/14/23 (units unknown) (unknown) (unknown) (no date) (unknown) (unknown) 16:00 01/14/23 (units unknown) (unknown) (unknown) (no date) (unknown) (unknown) 16:00 (units unknown) (unknown) (unknown) (no date) (unknown) (unknown) 16:30 01/14/23 (units unknown) (unknown) (unknown) (no date) (unknown) (unknown) 17:00 01/14/23 (units unknown) (unknown) (unknown) (no date) (unknown) (unknown) 17:00 (units unknown) (unknown) (unknown) (no date) (unknown) (unknown) 17:30 01/14/23 (units unknown) (unknown) (unknown) (no date) (unknown) (unknown) 17:30 (units unknown) (unknown) (unknown) (no date) (unknown) (unknown) 18:00 01/14/23 (units unknown) (unknown) (unknown) (no date) (unknown) (unknown) 18:15 (units unknown) (unknown) (unknown) (no date) (unknown) (unknown) 18:30 01/14/23 (units unknown) (unknown) (unknown) (no date) (unknown) (unknown) 18:30 (units unknown) (unknown) (unknown) (no date) (unknown) (unknown) 19:00 01/14/23 (units unknown) (unknown) (unknown) (no date) (unknown) (unknown) 19:15 01/14/23 (units unknown) (unknown) (unknown) (no date) (unknown) (unknown) 19:15 (units unknown) (unknown) (unknown) (no date) (unknown) (unknown) 19:20 01/14/23 (units unknown) (unknown) (unknown) (no date) (unknown) (unknown) 19:20 (units unknown) (unknown) (unknown) (no date) (unknown) (unknown) 19:25 01/14/23 (units unknown) (unknown) (unknown) (no date) (unknown) (unknown) 19:30 01/14/23 (units unknown) (unknown) (unknown) (no date) (unknown) (unknown) 19:30 (units unknown) (unknown) (unknown) (no date) (unknown) (unknown) 19:34 01/14/23 (units unknown) (unknown) (unknown) (no date) (unknown) (unknown) 19:35 01/14/23 (units unknown) (unknown) (unknown) (no date) (unknown) (unknown) 19:35 (units unknown) (unknown) (unknown) (no date) (unknown) (unknown) 19:40 01/14/23 (units unknown) (unknown) (unknown) (no date) (unknown) (unknown) 19:40 (units unknown) (unknown) (unknown) (no date) (unknown) (unknown) 19:45 01/14/23 (units unknown) (unknown) (unknown) (no date) (unknown) (unknown) 19:50 01/14/23 (units unknown) (unknown) (unknown) (no date) (unknown) (unknown) 19:50 (units unknown) (unknown) (unknown) (no date) (unknown) (unknown) 19:55 01/14/23 (units unknown) (unknown) (unknown) (no date) (unknown) (unknown) 19:55 (units unknown) (unknown) (unknown) (no date) (unknown) (unknown) 20:00 01/14/23 (units unknown) (unknown) (unknown) (no date) (unknown) (unknown) 20:05 01/14/23 (units unknown) (unknown) (unknown) (no date) (unknown) (unknown) 20:05 (units unknown) (unknown) (unknown) (no date) (unknown) (unknown) 20:30 01/14/23 (units unknown) (unknown) (unknown) (no date) (unknown) (unknown) 20:30 (units unknown) (unknown) (unknown) (no date) (unknown) (unknown) 21:00 01/14/23 (units unknown) (unknown) (unknown) (no date) (unknown) (unknown) 21:30 01/14/23 (units unknown) (unknown) (unknown) (no date) (unknown) (unknown) 21:30 (units unknown) (unknown) (unknown) (no date) (unknown) (unknown) 22:00 01/14/23 (units unknown) (unknown) (unknown) (no date) (unknown) (unknown) 22:25 (units unknown) (unknown) (unknown) (no date) (unknown) (unknown) AGE 12YR (units unknown) (unknown) (unknown) (no date) (unknown) (unknown) ALT 88 H (units unknown) (unknown) (unknown) (no date) (unknown) (unknown) ALT (units unknown) (unknown) (unknown) (no date) (unknown) (unknown) APTT 34 (units unknown) (unknown) (unknown) (no date) (unknown) (unknown) APTT (units unknown) (unknown) (unknown) (no date) (unknown) (unknown) AST 87 H (units unknown) (unknown) (unknown) (no date) (unknown) (unknown) AST (units unknown) (unknown) (unknown) (no date) (unknown) (unknown) Age/Sex: 53 / M (units unknown) (unknown) (unknown) (no date) (unknown) (unknown) Albumin 4.0 (units unknown) (unknown) (unknown) (no date) (unknown) (unknown) Albumin (units unknown) (unknown) (unknown) (no date) (unknown) (unknown) Albumin/Globulin Ratio 1.3 (units unknown) (unknown) (unknown) (no date) (unknown) (unknown) Albumin/Globulin Ratio (units unknown) (unknown) (unknown) (no date) (unknown) (unknown) Alcohol intoxication (units unknown) (unknown) (unknown) (no date) (unknown) (unknown) Alkaline Phosphatase 146 H (units unknown) (unknown) (unknown) (no date) (unknown) (unknown) Alkaline Phosphatase (units unknown) (unknown) (unknown) (no date) (unknown) (unknown) Allergies (units unknown) (unknown) (unknown) (no date) (unknown) (unknown) Allergy/AdvReac Type Severity Reaction Status Date / Time (units unknown) (unknown) (unknown) (no date) (unknown) (unknown) Antibody Screen Negative (units unknown) (unknown) (unknown) (no date) (unknown) (unknown) Antibody Screen (units unknown) (unknown) (unknown) (no date) (unknown) (unknown) Assessment + Plan narrative: (units unknown) (unknown) (unknown) (no date) (unknown) (unknown) Assessment + Plan (units unknown) (unknown) (unknown) (no date) (unknown) (unknown) BPH (benign prostati c hyperplasia) (units unknown) (unknown) (unknown) (no date) (unknown) (unknown) BUN 8 L (units unknown) (unknown) (unknown) (no date) (unknown) (unknown) BUN (units unknown) (unknown) (unknown) (no date) (unknown) (unknown) BUN/Creatinine Ratio 19.0 (units unknown) (unknown) (unknown) (no date) (unknown) (unknown) BUN/Creatinine Ratio (units unknown) (unknown) (unknown) (no date) (unknown) (unknown) BURNING' (units unknown) (unknown) (unknown) (no date) (unknown) (unknown) Baso # (Auto) 100 (units unknown) (unknown) (unknown) (no date) (unknown) (unknown) Baso # (Auto) (units unknown) (unknown) (unknown) (no date) (unknown) (unknown) Baso % (Auto) 1.4 (units unknown) (unknown) (unknown) (no date) (unknown) (unknown) Baso % (Auto) (units unknown) (unknown) (unknown) (no date) (unknown) (unknown) Blood Pressure 106/5 2 L 113/56 L (units unknown) (unknown) (unknown) (no date) (unknown) (unknown) Blood Pressure 121/73 (units unknown) (unknown) (unknown) (no date) (unknown) (unknown) Blood Pressure 129/8 0 138/76 (units unknown) (unknown) (unknown) (no date) (unknown) (unknown) Blood Pressure 130/8 2 162/103 H (units unknown) (unknown) (unknown) (no date) (unknown) (unknown) Blood Pressure 132/9 6 H 169/93 H (units unknown) (unknown) (unknown) (no date) (unknown) (unknown) Blood Pressure 137/72 (units unknown) (unknown) (unknown) (no date) (unknown) (unknown) Blood Pressure 137/85 (units unknown) (unknown) (unknown) (no date) (unknown) (unknown) Blood Pressure 138/102 H 130/92 H (units unknown) (unknown) (unknown) (no date) (unknown) (unknown) Blood Pressure 142/8 9 H (units unknown) (unknown) (unknown) (no date) (unknown) (unknown) Blood Pressure 143/9 4 H 141/93 H (units unknown) (unknown) (unknown) (no date) (unknown) (unknown) Blood Pressure 148/8 2 H (units unknown) (unknown) (unknown) (no date) (unknown) (unknown) Blood Pressure 155/9 5 H 124/84 (units unknown) (unknown) (unknown) (no date) (unknown) (unknown) Blood Pressure 158/9 5 H (units unknown) (unknown) (unknown) (no date) (unknown) (unknown) Blood Pressure 172/8 8 H (units unknown) (unknown) (unknown) (no date) (unknown) (unknown) Blood Pressure 175/108 H (units unknown) (unknown) (unknown) (no date) (unknown) (unknown) Blood Pressure (units unknown) (unknown) (unknown) (no date) (unknown) (unknown) Blood Type O Positive (units unknown) (unknown) (unknown) (no date) (unknown) (unknown) Blood Type (units unknown) (unknown) (unknown) (no date) (unknown) (unknown) Calcium 8.5 (units unknown) (unknown) (unknown) (no date) (unknown) (unknown) Calcium (units unknown) (unknown) (unknown) (no date) (unknown) (unknown) Carbon Dioxide 30 (units unknown) (unknown) (unknown) (no date) (unknown) (unknown) Carbon Dioxide (units unknown) (unknown) (unknown) (no date) (unknown) (unknown) Chief complaint: Trauma (units unknown) (unknown) (unknown) (no date) (unknown) (unknown) Chloride 100 (units unknown) (unknown) (unknown) (no date) (unknown) (unknown) Chloride (units unknown) (unknown) (unknown) (no date) (unknown) (unknown) Chronic low back pain (units unknown) (unknown) (unknown) (no date) (unknown) (unknown) Comment: (units unknown) (unknown) (unknown) (no date) (unknown) (unknown) Congestive heart failure (units unknown) (unknown) (unknown) (no date) (unknown) (unknown) Creatinine 0.42 L (units unknown) (unknown) (unknown) (no date) (unknown) (unknown) Creatinine (units unknown) (unknown) (unknown) (no date) (unknown) (unknown) : 1970 Acct:[id number] (units unknown) (unknown) (unknown) (no date) (unknown) (unknown) Date Patient Seen: 01/14/23 (units unknown) (unknown) (unknown) (no date) (unknown) (unknown) Date of Service: 01/14/23 (units unknown) (unknown) (unknown) (no date) (unknown) (unknown) Drinks a 5th of vodk a daily (units unknown) (unknown) (unknown) (no date) (unknown) (unknown) Eos # (Auto) 100 (units unknown) (unknown) (unknown) (no date) (unknown) (unknown) Eos # (Auto) (units unknown) (unknown) (unknown) (no date) (unknown) (unknown) Eos % (Auto) 2.2 (units unknown) (unknown) (unknown) (no date) (unknown) (unknown) Eos % (Auto) (units unknown) (unknown) (unknown) (no date) (unknown) (unknown) Essential hypertension (units unknown) (unknown) (unknown) (no date) (unknown) (unknown) Estimated GFR > 60 (units unknown) (unknown) (unknown) (no date) (unknown) (unknown) Estimated GFR (units unknown) (unknown) (unknown) (no date) (unknown) (unknown) Ethyl Alcohol 308 H (units unknown) (unknown) (unknown) (no date) (unknown) (unknown) Ethyl Alcohol 91 H (units unknown) (unknown) (unknown) (no date) (unknown) (unknown) Ethyl Alcohol (units unknown) (unknown) (unknown) (no date) (unknown) (unknown) Exam (units unknown) (unknown) (unknown) (no date) (unknown) (unknown) FEELS LIKE (units unknown) (unknown) (unknown) (no date) (unknown) (unknown) Family History (Updated 01/15/23 @ 02:24 by Genesis Dunn [facility]) (units unknown) (unknown) (unknown) (no date) (unknown) (unknown) Father Diabetes mellitus (units unknown) (unknown) (unknown) (no date) (unknown) (unknown) Globulin 3.2 (units unknown) (unknown) (unknown) (no date) (unknown) (unknown) Globulin (units unknown) (unknown) (unknown) (no date) (unknown) (unknown) Glucose 254 H (units unknown) (unknown) (unknown) (no date) (unknown) (unknown) Glucose (units unknown) (unknown) (unknown) (no date) (unknown) (unknown) HEARING (units unknown) (unknown) (unknown) (no date) (unknown) (unknown) HLD, BPH, insulin-dependent diabetes and chronic low back pain tx with InterStim (units unknown) (unknown) (unknown) (no date) (unknown) (unknown) Hct 36.9 L (units unknown) (unknown) (unknown) (no date) (unknown) (unknown) Hct (units unknown) (unknown) (unknown) (no date) (unknown) (unknown) Hgb 12.3 L (units unknown) (unknown) (unknown) (no date) (unknown) (unknown) Hgb (units unknown) (unknown) (unknown) (no date) (unknown) (unknown) History + Physical Report (units unknown) (unknown) (unknown) (no date) (unknown) (unknown) History of Present Illness (units unknown) (unknown) (unknown) (no date) (unknown) (unknown) History of shoulder surgery (units unknown) (unknown) (unknown) (no date) (unknown) (unknown) History (units unknown) (unknown) (unknown) (no date) (unknown) (unknown) Home Medications and Allergies (units unknown) (unknown) (unknown) (no date) (unknown) (unknown) Home Medications (units unknown) (unknown) (unknown) (no date) (unknown) (unknown) Hyperlipidemia due t o type 1 diabetes mellitus (units unknown) (unknown) (unknown) (no date) (unknown) (unknown) INR 1.0 (units unknown) (unknown) (unknown) (no date) (unknown) (unknown) INR (units unknown) (unknown) (unknown) (no date) (unknown) (unknown) [address] [address] (units unknown) (unknown) (unknown) (no date) (unknown) (unknown) LOSS AT (units unknown) (unknown) (unknown) (no date) (unknown) (unknown) Laboratory Results - last 24 hr (units unknown) (unknown) (unknown) (no date) (unknown) (unknown) Labs (units unknown) (unknown) (unknown) (no date) (unknown) (unknown) Labs: (units unknown) (unknown) (unknown) (no date) (unknown) (unknown) Lactate 2.1 1.9 (units unknown) (unknown) (unknown) (no date) (unknown) (unknown) Lactate (units unknown) (unknown) (unknown) (no date) (unknown) (unknown) Lipase 109 (units unknown) (unknown) (unknown) (no date) (unknown) (unknown) Lipase (units unknown) (unknown) (unknown) (no date) (unknown) (unknown) Lymph # (Auto) 1700 (units unknown) (unknown) (unknown) (no date) (unknown) (unknown) Lymph # (Auto) (units unknown) (unknown) (unknown) (no date) (unknown) (unknown) Lymph % (Auto) 39.1 (units unknown) (unknown) (unknown) (no date) (unknown) (unknown) Lymph % (Auto) (units unknown) (unknown) (unknown) (no date) (unknown) (unknown) MCH 32.5 (units unknown) (unknown) (unknown) (no date) (unknown) (unknown) MCH (units unknown) (unknown) (unknown) (no date) (unknown) (unknown) MCHC 33.5 (units unknown) (unknown) (unknown) (no date) (unknown) (unknown) MCHC (units unknown) (unknown) (unknown) (no date) (unknown) (unknown) MCV 97.1 (units unknown) (unknown) (unknown) (no date) (unknown) (unknown) MCV (units unknown) (unknown) (unknown) (no date) (unknown) (unknown) Medical History (units unknown) (unknown) (unknown) (no date) (unknown) (unknown) Medication Instructions Recorded Confirmed Type (units unknown) (unknown) (unknown) (no date) (unknown) (unknown) Meds (units unknown) (unknown) (unknown) (no date) (unknown) (unknown) Sj Romo is a 53-year-old male with known history of alcohol abuse, HTN, (units unknown) (unknown) (unknown) (no date) (unknown) (unknown) Micro UA Comment Microscopic normal (units unknown) (unknown) (unknown) (no date) (unknown) (unknown) Micro UA Comment (units unknown) (unknown) (unknown) (no date) (unknown) (unknown) [place] # (Auto) 600 (units unknown) (unknown) (unknown) (no date) (unknown) (unknown) [place] # (Auto) (units unknown) (unknown) (unknown) (no date) (unknown) (unknown) [place] % (Auto) 14.9 H (units unknown) (unknown) (unknown) (no date) (unknown) (unknown) [place] % (Auto) (units unknown) (unknown) (unknown) (no date) (unknown) (unknown) Mother Diabetes mellitus (units unknown) (unknown) (unknown) (no date) (unknown) (unknown) Multiple falls (units unknown) (unknown) (unknown) (no date) (unknown) (unknown) Narrative: (units unknown) (unknown) (unknown) (no date) (unknown) (unknown) Neut # (Auto) 1800 (units unknown) (unknown) (unknown) (no date) (unknown) (unknown) Neut # (Auto) (units unknown) (unknown) (unknown) (no date) (unknown) (unknown) Neut % (Auto) 42.4 L (units unknown) (unknown) (unknown) (no date) (unknown) (unknown) Neut % (Auto) (units unknown) (unknown) (unknown) (no date) (unknown) (unknown) Objective (units unknown) (unknown) (unknown) (no date) (unknown) (unknown) Oxygen Delivery Method Room Air (units unknown) (unknown) (unknown) (no date) (unknown) (unknown) Oxygen Delivery Method (units unknown) (unknown) (unknown) (no date) (unknown) (unknown) PFSH (units unknown) (unknown) (unknown) (no date) (unknown) (unknown) PT 11.2 (units unknown) (unknown) (unknown) (no date) (unknown) (unknown) PT (units unknown) (unknown) (unknown) (no date) (unknown) (unknown) Patient: Sj Romo MR#: [id number] (units unknown) (unknown) (unknown) (no date) (unknown) (unknown) Plt Count 296 (units unknown) (unknown) (unknown) (no date) (unknown) (unknown) Plt Count (units unknown) (unknown) (unknown) (no date) (unknown) (unknown) Potassium 3.9 (units unknown) (unknown) (unknown) (no date) (unknown) (unknown) Potassium (units unknown) (unknown) (unknown) (no date) (unknown) (unknown) Provider: Genesis Dunn [employer]- (units unknown) (unknown) (unknown) (no date) (unknown) (unknown) Pulse Oximetry 91 96 (units unknown) (unknown) (unknown) (no date) (unknown) (unknown) Pulse Oximetry 92 (units unknown) (unknown) (unknown) (no date) (unknown) (unknown) Pulse Oximetry 94 94 (units unknown) (unknown) (unknown) (no date) (unknown) (unknown) Pulse Oximetry 94 95 (units unknown) (unknown) (unknown) (no date) (unknown) (unknown) Pulse Oximetry 94 96 (units unknown) (unknown) (unknown) (no date) (unknown) (unknown) Pulse Oximetry 94 (units unknown) (unknown) (unknown) (no date) (unknown) (unknown) Pulse Oximetry 95 95 100 (units unknown) (unknown) (unknown) (no date) (unknown) (unknown) Pulse Oximetry 95 96 (units unknown) (unknown) (unknown) (no date) (unknown) (unknown) Pulse Oximetry 95 (units unknown) (unknown) (unknown) (no date) (unknown) (unknown) Pulse Oximetry 96 94 (units unknown) (unknown) (unknown) (no date) (unknown) (unknown) Pulse Oximetry 96 96 (units unknown) (unknown) (unknown) (no date) (unknown) (unknown) Pulse Oximetry 96 (units unknown) (unknown) (unknown) (no date) (unknown) (unknown) Pulse Rate 156 H (units unknown) (unknown) (unknown) (no date) (unknown) (unknown) Pulse Rate 69 (units unknown) (unknown) (unknown) (no date) (unknown) (unknown) Pulse Rate 71 (units unknown) (unknown) (unknown) (no date) (unknown) (unknown) Pulse Rate 74 101 H (units unknown) (unknown) (unknown) (no date) (unknown) (unknown) Pulse Rate 74 (units unknown) (unknown) (unknown) (no date) (unknown) (unknown) Pulse Rate 75 (units unknown) (unknown) (unknown) (no date) (unknown) (unknown) Pulse Rate 77 (units unknown) (unknown) (unknown) (no date) (unknown) (unknown) Pulse Rate 78 60 57 L (units unknown) (unknown) (unknown) (no date) (unknown) (unknown) Pulse Rate 78 74 (units unknown) (unknown) (unknown) (no date) (unknown) (unknown) Pulse Rate 81 77 (units unknown) (unknown) (unknown) (no date) (unknown) (unknown) Pulse Rate 83 80 (units unknown) (unknown) (unknown) (no date) (unknown) (unknown) Pulse Rate 85 78 168 H (units unknown) (unknown) (unknown) (no date) (unknown) (unknown) Pulse Rate 89 94 H (units unknown) (unknown) (unknown) (no date) (unknown) (unknown) Pulse Rate 93 H 78 (units unknown) (unknown) (unknown) (no date) (unknown) (unknown) Pulse Rate 97 H 96 H (units unknown) (unknown) (unknown) (no date) (unknown) (unknown) RBC 3.80 L (units unknown) (unknown) (unknown) (no date) (unknown) (unknown) RBC (units unknown) (unknown) (unknown) (no date) (unknown) (unknown) RDW 13.2 (units unknown) (unknown) (unknown) (no date) (unknown) (unknown) RDW (units unknown) (unknown) (unknown) (no date) (unknown) (unknown) Respiratory Rate 10 L (units unknown) (unknown) (unknown) (no date) (unknown) (unknown) Respiratory Rate 11 L (units unknown) (unknown) (unknown) (no date) (unknown) (unknown) Respiratory Rate 13 13 (units unknown) (unknown) (unknown) (no date) (unknown) (unknown) Respiratory Rate 13 (units unknown) (unknown) (unknown) (no date) (unknown) (unknown) Respiratory Rate 14 14 (units unknown) (unknown) (unknown) (no date) (unknown) (unknown) Respiratory Rate 14 23 (units unknown) (unknown) (unknown) (no date) (unknown) (unknown) Respiratory Rate 14 (units unknown) (unknown) (unknown) (no date) (unknown) (unknown) Respiratory Rate 15 (units unknown) (unknown) (unknown) (no date) (unknown) (unknown) Respiratory Rate 16 (units unknown) (unknown) (unknown) (no date) (unknown) (unknown) Respiratory Rate 18 0 L 17 (units unknown) (unknown) (unknown) (no date) (unknown) (unknown) Respiratory Rate 19 15 (units unknown) (unknown) (unknown) (no date) (unknown) (unknown) Respiratory Rate 19 18 20 (units unknown) (unknown) (unknown) (no date) (unknown) (unknown) Respiratory Rate 24 17 (units unknown) (unknown) (unknown) (no date) (unknown) (unknown) Respiratory Rate (units unknown) (unknown) (unknown) (no date) (unknown) (unknown) Review of Systems (units unknown) (unknown) (unknown) (no date) (unknown) (unknown) SARS-CoV-2 (PCR) Negative (units unknown) (unknown) (unknown) (no date) (unknown) (unknown) SARS-CoV-2 (PCR) (units unknown) (unknown) (unknown) (no date) (unknown) (unknown) Signed By: (units unknown) (unknown) (unknown) (no date) (unknown) (unknown) Smoking Status: Milagro huang smoker (units unknown) (unknown) (unknown) (no date) (unknown) (unknown) Social History (Updated 01/15/23 @ 02:23 [facility] (units unknown) (unknown) (unknown) (no date) (unknown) (unknown) Sodium 140 (units unknown) (unknown) (unknown) (no date) (unknown) (unknown) Sodium (units unknown) (unknown) (unknown) (no date) (unknown) (unknown) Solostar U-100 Insulin) (units unknown) (unknown) (unknown) (no date) (unknown) (unknown) Surgical History (units unknown) (unknown) (unknown) (no date) (unknown) (unknown) Time Patient Seen: 22:42 (units unknown) (unknown) (unknown) (no date) (unknown) (unknown) Total Bilirubin 0.4 (units unknown) (unknown) (unknown) (no date) (unknown) (unknown) Total Bilirubin (units unknown) (unknown) (unknown) (no date) (unknown) (unknown) Total Protein 7.2 (units unknown) (unknown) (unknown) (no date) (unknown) (unknown) Total Protein (units unknown) (unknown) (unknown) (no date) (unknown) (unknown) U Benzodiazepines Scrn Positive H (units unknown) (unknown) (unknown) (no date) (unknown) (unknown) U Benzodiazepines Scrn (units unknown) (unknown) (unknown) (no date) (unknown) (unknown) U Marijuana (THC) Screen Negative (units unknown) (unknown) (unknown) (no date) (unknown) (unknown) U Marijuana (THC) Screen (units unknown) (unknown) (unknown) (no date) (unknown) (unknown) U Methamphetamines Scrn Negative (units unknown) (unknown) (unknown) (no date) (unknown) (unknown) U Methamphetamines Scrn (units unknown) (unknown) (unknown) (no date) (unknown) (unknown) U Opiates 300ng/mL cut Positive H (units unknown) (unknown) (unknown) (no date) (unknown) (unknown) U Opiates 300ng/mL cut (units unknown) (unknown) (unknown) (no date) (unknown) (unknown) U Tricyclic Antidepress Negative (units unknown) (unknown) (unknown) (no date) (unknown) (unknown) U Tricyclic Antidepress (units unknown) (unknown) (unknown) (no date) (unknown) (unknown) Unable to obtain accurate ROS due to encephalopathy-All 12 point systems (units unknown) (unknown) (unknown) (no date) (unknown) (unknown) Ur Amphetamines Screen Negative (units unknown) (unknown) (unknown) (no date) (unknown) (unknown) Ur Amphetamines Screen (units unknown) (unknown) (unknown) (no date) (unknown) (unknown) Ur Barbiturates Screen Negative (units unknown) (unknown) (unknown) (no date) (unknown) (unknown) Ur Barbiturates Screen (units unknown) (unknown) (unknown) (no date) (unknown) (unknown) Ur Culture Indicated ? Cult not indicated (units unknown) (unknown) (unknown) (no date) (unknown) (unknown) Ur Culture Indicated? (units unknown) (unknown) (unknown) (no date) (unknown) (unknown) Ur Leukocyte Esteras e Negative (units unknown) (unknown) (unknown) (no date) (unknown) (unknown) Ur Leukocyte Esterase (units unknown) (unknown) (unknown) (no date) (unknown) (unknown) Ur MDMA Scrn (Ecstasy) Negative (units unknown) (unknown) (unknown) (no date) (unknown) (unknown) Ur MDMA Scrn (Ecstasy) (units unknown) (unknown) (unknown) (no date) (unknown) (unknown) Ur Oxycodone Screen Negative (units unknown) (unknown) (unknown) (no date) (unknown) (unknown) Ur Oxycodone Screen (units unknown) (unknown) (unknown) (no date) (unknown) (unknown) Ur Phencyclidine Scr n Negative (units unknown) (unknown) (unknown) (no date) (unknown) (unknown) Ur Phencyclidine Scrn (units unknown) (unknown) (unknown) (no date) (unknown) (unknown) Ur Specific [place] 1.010 (units unknown) (unknown) (unknown) (no date) (unknown) (unknown) Ur Specific [place] (units unknown) (unknown) (unknown) (no date) (unknown) (unknown) Urine Appearance Clear (units unknown) (unknown) (unknown) (no date) (unknown) (unknown) Urine Appearance (units unknown) (unknown) (unknown) (no date) (unknown) (unknown) Urine Bacteria None seen (units unknown) (unknown) (unknown) (no date) (unknown) (unknown) Urine Bacteria (units unknown) (unknown) (unknown) (no date) (unknown) (unknown) Urine Bilirubin Negative (units unknown) (unknown) (unknown) (no date) (unknown) (unknown) Urine Bilirubin (units unknown) (unknown) (unknown) (no date) (unknown) (unknown) Urine Cocaine Screen Negative (units unknown) (unknown) (unknown) (no date) (unknown) (unknown) Urine Cocaine Screen (units unknown) (unknown) (unknown) (no date) (unknown) (unknown) Urine Color Yellow (units unknown) (unknown) (unknown) (no date) (unknown) (unknown) Urine Color (units unknown) (unknown) (unknown) (no date) (unknown) (unknown) Urine Glucose (UA) 2 + H (units unknown) (unknown) (unknown) (no date) (unknown) (unknown) Urine Glucose (UA) (units unknown) (unknown) (unknown) (no date) (unknown) (unknown) Urine Ketones Negative (units unknown) (unknown) (unknown) (no date) (unknown) (unknown) Urine Ketones (units unknown) (unknown) (unknown) (no date) (unknown) (unknown) Urine Methadone Screen Negative (units unknown) (unknown) (unknown) (no date) (unknown) (unknown) Urine Methadone Screen (units unknown) (unknown) (unknown) (no date) (unknown) (unknown) Urine Nitrate Negative (units unknown) (unknown) (unknown) (no date) (unknown) (unknown) Urine Nitrate (units unknown) (unknown) (unknown) (no date) (unknown) (unknown) Urine Occult Blood Negative (units unknown) (unknown) (unknown) (no date) (unknown) (unknown) Urine Occult Blood (units unknown) (unknown) (unknown) (no date) (unknown) (unknown) Urine Protein Negative (units unknown) (unknown) (unknown) (no date) (unknown) (unknown) Urine Protein (units unknown) (unknown) (unknown) (no date) (unknown) (unknown) Urine RBC None seen (units unknown) (unknown) (unknown) (no date) (unknown) (unknown) Urine RBC (units unknown) (unknown) (unknown) (no date) (unknown) (unknown) Urine Urobilinogen 1.0 (units unknown) (unknown) (unknown) (no date) (unknown) (unknown) Urine Urobilinogen (units unknown) (unknown) (unknown) (no date) (unknown) (unknown) Urine WBC None seen (units unknown) (unknown) (unknown) (no date) (unknown) (unknown) Urine WBC (units unknown) (unknown) (unknown) (no date) (unknown) (unknown) Urine pH 6.5 (units unknown) (unknown) (unknown) (no date) (unknown) (unknown) Urine pH (units unknown) (unknown) (unknown) (no date) (unknown) (unknown) Vital Signs (units unknown) (unknown) (unknown) (no date) (unknown) (unknown) WAS (units unknown) (unknown) (unknown) (no date) (unknown) (unknown) WBC 4.3 L (units unknown) (unknown) (unknown) (no date) (unknown) (unknown) WBC (units unknown) (unknown) (unknown) (no date) (unknown) (unknown) When asked on admit regarding code status patient requested to be a full code, (units unknown) (unknown) (unknown) (no date) (unknown) (unknown) [Embedded Image Not Available] (units unknown) (unknown) (unknown) (no date) (unknown) (unknown) [From BETADINE] FEEL S LIKE (units unknown) (unknown) (unknown) (no date) (unknown) (unknown) [SHELLFISH DERIVED] LIKE IT (units unknown) (unknown) (unknown) (no date) (unknown) (unknown) admit patient is unable to state where he is unable to recall how or when he (units unknown) (unknown) (unknown) (no date) (unknown) (unknown) alcohol intake: current (units unknown) (unknown) (unknown) (no date) (unknown) (unknown) and denied suicide ideation. patient is hemodynamically stable pleasant (units unknown) (unknown) (unknown) (no date) (unknown) (unknown) atorvastatin 40 mg tablet 40 mg PO BEDTIME 01/14/23 01/14/23 History (units unknown) (unknown) (unknown) (no date) (unknown) (unknown) attempts to transfer patient for detox, but was refused due to hyperglycemia, (units unknown) (unknown) (unknown) (no date) (unknown) (unknown) been called to the patient's home several times over the last few days, he was (units unknown) (unknown) (unknown) (no date) (unknown) (unknown) bruising left abdomen, upper abd, chest, scabbed abrasion to left anterior lower (units unknown) (unknown) (unknown) (no date) (unknown) (unknown) converses easily but is confused. WBC 4.3, H+H 12.3/36.9, initial glucose 344, (units unknown) (unknown) (unknown) (no date) (unknown) (unknown) covered in a variety of multiple injuries in varying degrees healing, a scabbed (units unknown) (unknown) (unknown) (no date) (unknown) (unknown) dextroamphetamine-am p hetamine 20 20 mg PO BID 01/14/23 01/14/23 History (units unknown) (unknown) (unknown) (no date) (unknown) (unknown) did not answer.? Patient was seen and evaluated by [facility] in the ED made multiple (units unknown) (unknown) (unknown) (no date) (unknown) (unknown) elevated QTC on EKG, and encephalopathy. Unable to obtain accurate HPI, ROS due (units unknown) (unknown) (unknown) (no date) (unknown) (unknown) elevated QTC on EKG, and encephalopathy. (units unknown) (unknown) (unknown) (no date) (unknown) (unknown) extremities well.? I s conversant but confused.? Patient states he drinks at (units unknown) (unknown) (unknown) (no date) (unknown) (unknown) extremity, significant deep bruising to lower coccyx area. Patient denies (units unknown) (unknown) (unknown) (no date) (unknown) (unknown) fall, head injury, atrial fibrillation, encephalopathy, ETOH abuse/intoxication, (units unknown) (unknown) (unknown) (no date) (unknown) (unknown) fall, head injury, encephalopathy, ETOH abuse/intoxication, hyperglycemia. (units unknown) (unknown) (unknown) (no date) (unknown) (unknown) found down this evening on the bathroom floor with broken glass perhaps broken (units unknown) (unknown) (unknown) (no date) (unknown) (unknown) furosemide 20 mg tablet 20 mg PO DAILY 01/14/23 01/14/23 History (units unknown) (unknown) (unknown) (no date) (unknown) (unknown) head CT negative, CT of abdomen/pelvis multiple remote left rib fractures, left (units unknown) (unknown) (unknown) (no date) (unknown) (unknown) household members: none (units unknown) (unknown) (unknown) (no date) (unknown) (unknown) hyperglycemia. (units unknown) (unknown) (unknown) (no date) (unknown) (unknown) insulin glargine 100 unit/mL (3 20 unit SUBCUT BEDTIME 01/14/23 01/14/23 History (units unknown) (unknown) (unknown) (no date) (unknown) (unknown) insulin lispro 100 unit/mL See Rx Instructions .Route .COMPLEX 01/14/23 01/14/23 (units unknown) (unknown) (unknown) (no date) (unknown) (unknown) kill himself when asked why he did not answer'? When asked if he has a plan he (units unknown) (unknown) (unknown) (no date) (unknown) (unknown) least a 5th of Vodka daily, denies tobacco or illicit.? Patient is unable to (units unknown) (unknown) (unknown) (no date) (unknown) (unknown) losartan 100 mg tablet 100 mg PO DAILY 01/14/23 01/14/23 History (units unknown) (unknown) (unknown) (no date) (unknown) (unknown) mL) subcutaneous pen (Lantus (units unknown) (unknown) (unknown) (no date) (unknown) (unknown) mg tablet (units unknown) (unknown) (unknown) (no date) (unknown) (unknown) mirror and blood at the scene. Patient is confused, but redirectable. During (units unknown) (unknown) (unknown) (no date) (unknown) (unknown) negative, tox screen is positive for opiates and benzos, initial ETOH 308, (units unknown) (unknown) (unknown) (no date) (unknown) (unknown) obtain these injurie s in the events that led him to the hospital today. He is (units unknown) (unknown) (unknown) (no date) (unknown) (unknown) pain, no shortness o f breath, no GI or urinary symptoms.? He is moving all his (units unknown) (unknown) (unknown) (no date) (unknown) (unknown) penicillin G [PENICILLIN G] Allergy Unknown LEFT EAR Verified 07/27/18 10:10 (units unknown) (unknown) (unknown) (no date) (unknown) (unknown) povidone-iodine Allergy Unknown 'SKIN Verified 07/27/18 10:10 (units unknown) (unknown) (unknown) (no date) (unknown) (unknown) propranolol 20 mg tablet 20 mg PO BID 01/14/23 01/14/23 History (units unknown) (unknown) (unknown) (no date) (unknown) (unknown) recall what his medications are he believes he is on insulins but he has no idea (units unknown) (unknown) (unknown) (no date) (unknown) (unknown) repeat 254, AST 87, ALT 88, alk-phos 144, UA negative, lactate negative, lipase (units unknown) (unknown) (unknown) (no date) (unknown) (unknown) repeat 91. COVID negative. EKG sinus rhythm rate 72 QTC 499, without ST or T (units unknown) (unknown) (unknown) (no date) (unknown) (unknown) reviewed with the patient and are negative except otherwise documented. (units unknown) (unknown) (unknown) (no date) (unknown) (unknown) scapula fracture, an d L1/L2 transverse process fracture. Patient admitted for (units unknown) (unknown) (unknown) (no date) (unknown) (unknown) shellfish derived Allergy Unknown 'SKIN FELT Verified 07/27/18 10:10 (units unknown) (unknown) (unknown) (no date) (unknown) (unknown) soap [From BETADINE] Allergy Unknown 'SKIN Verified 07/27/18 10:10 (units unknown) (unknown) (unknown) (no date) (unknown) (unknown) stimulator in back lumbar + Dilaudid pain pump in abdomen.? EMS had apparently (units unknown) (unknown) (unknown) (no date) (unknown) (unknown) subcutaneous pen (Humalog KwikPen (units unknown) (unknown) (unknown) (no date) (unknown) (unknown) superficial laceration over his right forehead, small burn right forearm, (units unknown) (unknown) (unknown) (no date) (unknown) (unknown) tamsulosin 0.4 mg capsule 0.4 mg PO DAILY 01/14/23 01/14/23 History (units unknown) (unknown) (unknown) (no date) (unknown) (unknown) to encephalopathy. E D reported patient had an episode of atrial fibrillation (units unknown) (unknown) (unknown) (no date) (unknown) (unknown) to kill himself to the medics and when asked in ED he ' stated he did want to (units unknown) (unknown) (unknown) (no date) (unknown) (unknown) wave changes. Chest x-ray negative, C-spine negative, pelvic x-ray negative, (units unknown) (unknown) (unknown) (no date) (unknown) (unknown) when or if he is taken his medication. He did make statements that he wanted (units unknown) (unknown) (unknown) (no date) (unknown) (unknown) which metoprolol was given and quickly resolved. (units unknown) (unknown) Result panel 242 (unknown) (no date) (unknown) (unknown) (no value) (units unknown) (unknown) (unknown) (no date) (unknown) (unknown) (U-100) Insulin) (units unknown) (unknown) (unknown) (no date) (unknown) (unknown) (past 8 hours): (units unknown) (unknown) (unknown) (no date) (unknown) (unknown) -lives alone, permanently disabled (units unknown) (unknown) (unknown) (no date) (unknown) (unknown) [id number] (units unknown) (unknown) (unknown) (no date) (unknown) (unknown) 01/14/23 01/14/23 01/14/23 (units unknown) (unknown) (unknown) (no date) (unknown) (unknown) 01/14/23 10:45 (units unknown) (unknown) (unknown) (no date) (unknown) (unknown) 01/14/23 (units unknown) (unknown) (unknown) (no date) (unknown) (unknown) 10:45 10:45 10:45 (units unknown) (unknown) (unknown) (no date) (unknown) (unknown) 10:45 11:23 13:48 (units unknown) (unknown) (unknown) (no date) (unknown) (unknown) 14:09 14:09 15:25 (units unknown) (unknown) (unknown) (no date) (unknown) (unknown) 15:00 01/14/23 (units unknown) (unknown) (unknown) (no date) (unknown) (unknown) 15:02 01/14/23 (units unknown) (unknown) (unknown) (no date) (unknown) (unknown) 15:02 (units unknown) (unknown) (unknown) (no date) (unknown) (unknown) 15:30 01/14/23 (units unknown) (unknown) (unknown) (no date) (unknown) (unknown) 16:00 01/14/23 (units unknown) (unknown) (unknown) (no date) (unknown) (unknown) 16:00 (units unknown) (unknown) (unknown) (no date) (unknown) (unknown) 16:30 01/14/23 (units unknown) (unknown) (unknown) (no date) (unknown) (unknown) 17:00 01/14/23 (units unknown) (unknown) (unknown) (no date) (unknown) (unknown) 17:00 (units unknown) (unknown) (unknown) (no date) (unknown) (unknown) 17:30 01/14/23 (units unknown) (unknown) (unknown) (no date) (unknown) (unknown) 17:30 (units unknown) (unknown) (unknown) (no date) (unknown) (unknown) 18:00 01/14/23 (units unknown) (unknown) (unknown) (no date) (unknown) (unknown) 18:15 (units unknown) (unknown) (unknown) (no date) (unknown) (unknown) 18:30 01/14/23 (units unknown) (unknown) (unknown) (no date) (unknown) (unknown) 18:30 (units unknown) (unknown) (unknown) (no date) (unknown) (unknown) 19:00 01/14/23 (units unknown) (unknown) (unknown) (no date) (unknown) (unknown) 19:15 01/14/23 (units unknown) (unknown) (unknown) (no date) (unknown) (unknown) 19:15 (units unknown) (unknown) (unknown) (no date) (unknown) (unknown) 19:20 01/14/23 (units unknown) (unknown) (unknown) (no date) (unknown) (unknown) 19:20 (units unknown) (unknown) (unknown) (no date) (unknown) (unknown) 19:25 01/14/23 (units unknown) (unknown) (unknown) (no date) (unknown) (unknown) 19:30 01/14/23 (units unknown) (unknown) (unknown) (no date) (unknown) (unknown) 19:30 (units unknown) (unknown) (unknown) (no date) (unknown) (unknown) 19:34 01/14/23 (units unknown) (unknown) (unknown) (no date) (unknown) (unknown) 19:35 01/14/23 (units unknown) (unknown) (unknown) (no date) (unknown) (unknown) 19:35 (units unknown) (unknown) (unknown) (no date) (unknown) (unknown) 19:40 01/14/23 (units unknown) (unknown) (unknown) (no date) (unknown) (unknown) 19:40 (units unknown) (unknown) (unknown) (no date) (unknown) (unknown) 19:45 01/14/23 (units unknown) (unknown) (unknown) (no date) (unknown) (unknown) 19:50 01/14/23 (units unknown) (unknown) (unknown) (no date) (unknown) (unknown) 19:50 (units unknown) (unknown) (unknown) (no date) (unknown) (unknown) 19:55 01/14/23 (units unknown) (unknown) (unknown) (no date) (unknown) (unknown) 19:55 (units unknown) (unknown) (unknown) (no date) (unknown) (unknown) 20:00 01/14/23 (units unknown) (unknown) (unknown) (no date) (unknown) (unknown) 20:05 01/14/23 (units unknown) (unknown) (unknown) (no date) (unknown) (unknown) 20:05 (units unknown) (unknown) (unknown) (no date) (unknown) (unknown) 20:30 01/14/23 (units unknown) (unknown) (unknown) (no date) (unknown) (unknown) 20:30 (units unknown) (unknown) (unknown) (no date) (unknown) (unknown) 21:00 01/14/23 (units unknown) (unknown) (unknown) (no date) (unknown) (unknown) 21:30 01/14/23 (units unknown) (unknown) (unknown) (no date) (unknown) (unknown) 21:30 (units unknown) (unknown) (unknown) (no date) (unknown) (unknown) 22:00 01/14/23 (units unknown) (unknown) (unknown) (no date) (unknown) (unknown) 22:25 (units unknown) (unknown) (unknown) (no date) (unknown) (unknown) AGE 12YR (units unknown) (unknown) (unknown) (no date) (unknown) (unknown) ALT 88 H (units unknown) (unknown) (unknown) (no date) (unknown) (unknown) ALT (units unknown) (unknown) (unknown) (no date) (unknown) (unknown) APTT 34 (units unknown) (unknown) (unknown) (no date) (unknown) (unknown) APTT (units unknown) (unknown) (unknown) (no date) (unknown) (unknown) AST 87 H (units unknown) (unknown) (unknown) (no date) (unknown) (unknown) AST (units unknown) (unknown) (unknown) (no date) (unknown) (unknown) Abdomen: Soft nontender, negative for organomegaly, or masses. Bowel sounds (units unknown) (unknown) (unknown) (no date) (unknown) (unknown) Age/Sex: 53 / M (units unknown) (unknown) (unknown) (no date) (unknown) (unknown) Albumin 4.0 (units unknown) (unknown) (unknown) (no date) (unknown) (unknown) Albumin (units unknown) (unknown) (unknown) (no date) (unknown) (unknown) Albumin/Globulin Ratio 1.3 (units unknown) (unknown) (unknown) (no date) (unknown) (unknown) Albumin/Globulin Ratio (units unknown) (unknown) (unknown) (no date) (unknown) (unknown) Alcohol intoxication (units unknown) (unknown) (unknown) (no date) (unknown) (unknown) Alkaline Phosphatase 146 H (units unknown) (unknown) (unknown) (no date) (unknown) (unknown) Alkaline Phosphatase (units unknown) (unknown) (unknown) (no date) (unknown) (unknown) Allergies (units unknown) (unknown) (unknown) (no date) (unknown) (unknown) Allergy/AdvReac Type Severity Reaction Status Date / Time (units unknown) (unknown) (unknown) (no date) (unknown) (unknown) Antibody Screen Negative (units unknown) (unknown) (unknown) (no date) (unknown) (unknown) Antibody Screen (units unknown) (unknown) (unknown) (no date) (unknown) (unknown) Assessment + Plan narrative: (units unknown) (unknown) (unknown) (no date) (unknown) (unknown) Assessment + Plan (units unknown) (unknown) (unknown) (no date) (unknown) (unknown) BPH (benign prostati c hyperplasia) (units unknown) (unknown) (unknown) (no date) (unknown) (unknown) BUN 8 L (units unknown) (unknown) (unknown) (no date) (unknown) (unknown) BUN (units unknown) (unknown) (unknown) (no date) (unknown) (unknown) BUN/Creatinine Ratio 19.0 (units unknown) (unknown) (unknown) (no date) (unknown) (unknown) BUN/Creatinine Ratio (units unknown) (unknown) (unknown) (no date) (unknown) (unknown) BURNING' (units unknown) (unknown) (unknown) (no date) (unknown) (unknown) Baso # (Auto) 100 (units unknown) (unknown) (unknown) (no date) (unknown) (unknown) Baso # (Auto) (units unknown) (unknown) (unknown) (no date) (unknown) (unknown) Baso % (Auto) 1.4 (units unknown) (unknown) (unknown) (no date) (unknown) (unknown) Baso % (Auto) (units unknown) (unknown) (unknown) (no date) (unknown) (unknown) Blood Pressure 106/5 2 L 113/56 L (units unknown) (unknown) (unknown) (no date) (unknown) (unknown) Blood Pressure 121/73 (units unknown) (unknown) (unknown) (no date) (unknown) (unknown) Blood Pressure 129/8 0 138/76 (units unknown) (unknown) (unknown) (no date) (unknown) (unknown) Blood Pressure 130/8 2 162/103 H (units unknown) (unknown) (unknown) (no date) (unknown) (unknown) Blood Pressure 132/9 6 H 169/93 H (units unknown) (unknown) (unknown) (no date) (unknown) (unknown) Blood Pressure 137/72 (units unknown) (unknown) (unknown) (no date) (unknown) (unknown) Blood Pressure 137/85 (units unknown) (unknown) (unknown) (no date) (unknown) (unknown) Blood Pressure 138/102 H 130/92 H (units unknown) (unknown) (unknown) (no date) (unknown) (unknown) Blood Pressure 142/8 9 H (units unknown) (unknown) (unknown) (no date) (unknown) (unknown) Blood Pressure 143/9 4 H 141/93 H (units unknown) (unknown) (unknown) (no date) (unknown) (unknown) Blood Pressure 148/8 2 H (units unknown) (unknown) (unknown) (no date) (unknown) (unknown) Blood Pressure 155/9 5 H 124/84 (units unknown) (unknown) (unknown) (no date) (unknown) (unknown) Blood Pressure 158/9 5 H (units unknown) (unknown) (unknown) (no date) (unknown) (unknown) Blood Pressure 172/8 8 H (units unknown) (unknown) (unknown) (no date) (unknown) (unknown) Blood Pressure 175/108 H (units unknown) (unknown) (unknown) (no date) (unknown) (unknown) Blood Pressure (units unknown) (unknown) (unknown) (no date) (unknown) (unknown) Blood Type O Positive (units unknown) (unknown) (unknown) (no date) (unknown) (unknown) Blood Type (units unknown) (unknown) (unknown) (no date) (unknown) (unknown) Calcium 8.5 (units unknown) (unknown) (unknown) (no date) (unknown) (unknown) Calcium (units unknown) (unknown) (unknown) (no date) (unknown) (unknown) Carbon Dioxide 30 (units unknown) (unknown) (unknown) (no date) (unknown) (unknown) Carbon Dioxide (units unknown) (unknown) (unknown) (no date) (unknown) (unknown) Cardio: regular rate and rhythm without murmur, rubs, or gallops, no carotid (units unknown) (unknown) (unknown) (no date) (unknown) (unknown) Chest: Breathing no nasal flaring, retractions, or tachypneic labored (units unknown) (unknown) (unknown) (no date) (unknown) (unknown) Chief complaint: Trauma (units unknown) (unknown) (unknown) (no date) (unknown) (unknown) Chloride 100 (units unknown) (unknown) (unknown) (no date) (unknown) (unknown) Chloride (units unknown) (unknown) (unknown) (no date) (unknown) (unknown) Chronic low back pain (units unknown) (unknown) (unknown) (no date) (unknown) (unknown) Comment: (units unknown) (unknown) (unknown) (no date) (unknown) (unknown) Congestive heart failure (units unknown) (unknown) (unknown) (no date) (unknown) (unknown) Creatinine 0.42 L (units unknown) (unknown) (unknown) (no date) (unknown) (unknown) Creatinine (units unknown) (unknown) (unknown) (no date) (unknown) (unknown) : 1970 Acct:[id number] (units unknown) (unknown) (unknown) (no date) (unknown) (unknown) Date Patient Seen: 01/14/23 (units unknown) (unknown) (unknown) (no date) (unknown) (unknown) Date of Service: 01/14/23 (units unknown) (unknown) (unknown) (no date) (unknown) (unknown) Drinks a 5th of vodk a daily (units unknown) (unknown) (unknown) (no date) (unknown) (unknown) Eos # (Auto) 100 (units unknown) (unknown) (unknown) (no date) (unknown) (unknown) Eos # (Auto) (units unknown) (unknown) (unknown) (no date) (unknown) (unknown) Eos % (Auto) 2.2 (units unknown) (unknown) (unknown) (no date) (unknown) (unknown) Eos % (Auto) (units unknown) (unknown) (unknown) (no date) (unknown) (unknown) Essential hypertension (units unknown) (unknown) (unknown) (no date) (unknown) (unknown) Estimated GFR > 60 (units unknown) (unknown) (unknown) (no date) (unknown) (unknown) Estimated GFR (units unknown) (unknown) (unknown) (no date) (unknown) (unknown) Ethyl Alcohol 308 H (units unknown) (unknown) (unknown) (no date) (unknown) (unknown) Ethyl Alcohol 91 H (units unknown) (unknown) (unknown) (no date) (unknown) (unknown) Ethyl Alcohol (units unknown) (unknown) (unknown) (no date) (unknown) (unknown) Exam Narrative: (units unknown) (unknown) (unknown) (no date) (unknown) (unknown) Exam (units unknown) (unknown) (unknown) (no date) (unknown) (unknown) FEELS LIKE (units unknown) (unknown) (unknown) (no date) (unknown) (unknown) Family History (Updated 01/15/23 @ 02:24 by Genesis Dunn, [facility]) (units unknown) (unknown) (unknown) (no date) (unknown) (unknown) Father Diabetes mellitus (units unknown) (unknown) (unknown) (no date) (unknown) (unknown) General: Patient is disheveled, appears chronically ill and unwell, with (units unknown) (unknown) (unknown) (no date) (unknown) (unknown) Globulin 3.2 (units unknown) (unknown) (unknown) (no date) (unknown) (unknown) Globulin (units unknown) (unknown) (unknown) (no date) (unknown) (unknown) Glucose 254 H (units unknown) (unknown) (unknown) (no date) (unknown) (unknown) Glucose (units unknown) (unknown) (unknown) (no date) (unknown) (unknown) HEARING (units unknown) (unknown) (unknown) (no date) (unknown) (unknown) HEENT: Normocephalic , extraocular muscles intact, oral pharynx is clear and (units unknown) (unknown) (unknown) (no date) (unknown) (unknown) HLD, BPH, insulin-dependent diabetes and chronic low back pain tx with InterStim (units unknown) (unknown) (unknown) (no date) (unknown) (unknown) Hct 36.9 L (units unknown) (unknown) (unknown) (no date) (unknown) (unknown) Hct (units unknown) (unknown) (unknown) (no date) (unknown) (unknown) Hgb 12.3 L (units unknown) (unknown) (unknown) (no date) (unknown) (unknown) Hgb (units unknown) (unknown) (unknown) (no date) (unknown) (unknown) History + Physical Report (units unknown) (unknown) (unknown) (no date) (unknown) (unknown) History of Present Illness (units unknown) (unknown) (unknown) (no date) (unknown) (unknown) History of shoulder surgery (units unknown) (unknown) (unknown) (no date) (unknown) (unknown) History (units unknown) (unknown) (unknown) (no date) (unknown) (unknown) Home Medications and Allergies (units unknown) (unknown) (unknown) (no date) (unknown) (unknown) Home Medications (units unknown) (unknown) (unknown) (no date) (unknown) (unknown) Hyperlipidemia due t o type 1 diabetes mellitus (units unknown) (unknown) (unknown) (no date) (unknown) (unknown) INR 1.0 (units unknown) (unknown) (unknown) (no date) (unknown) (unknown) INR (units unknown) (unknown) (unknown) (no date) (unknown) (unknown) [address] [id number] (units unknown) (unknown) (unknown) (no date) (unknown) (unknown) JVD (units unknown) (unknown) (unknown) (no date) (unknown) (unknown) LOSS AT (units unknown) (unknown) (unknown) (no date) (unknown) (unknown) Laboratory Results - last 24 hr (units unknown) (unknown) (unknown) (no date) (unknown) (unknown) Labs (units unknown) (unknown) (unknown) (no date) (unknown) (unknown) Labs: (units unknown) (unknown) (unknown) (no date) (unknown) (unknown) Lactate 2.1 1.9 (units unknown) (unknown) (unknown) (no date) (unknown) (unknown) Lactate (units unknown) (unknown) (unknown) (no date) (unknown) (unknown) Lipase 109 (units unknown) (unknown) (unknown) (no date) (unknown) (unknown) Lipase (units unknown) (unknown) (unknown) (no date) (unknown) (unknown) Lungs: Auscultation of all lung lopez are clear without adventitious sounds, (units unknown) (unknown) (unknown) (no date) (unknown) (unknown) Lymph # (Auto) 1700 (units unknown) (unknown) (unknown) (no date) (unknown) (unknown) Lymph # (Auto) (units unknown) (unknown) (unknown) (no date) (unknown) (unknown) Lymph % (Auto) 39.1 (units unknown) (unknown) (unknown) (no date) (unknown) (unknown) Lymph % (Auto) (units unknown) (unknown) (unknown) (no date) (unknown) (unknown) MCH 32.5 (units unknown) (unknown) (unknown) (no date) (unknown) (unknown) MCH (units unknown) (unknown) (unknown) (no date) (unknown) (unknown) MCHC 33.5 (units unknown) (unknown) (unknown) (no date) (unknown) (unknown) MCHC (units unknown) (unknown) (unknown) (no date) (unknown) (unknown) MCV 97.1 (units unknown) (unknown) (unknown) (no date) (unknown) (unknown) MCV (units unknown) (unknown) (unknown) (no date) (unknown) (unknown) Medical History (units unknown) (unknown) (unknown) (no date) (unknown) (unknown) Medication Instructions Recorded Confirmed Type (units unknown) (unknown) (unknown) (no date) (unknown) (unknown) Meds (units unknown) (unknown) (unknown) (no date) (unknown) (unknown) Sj Romo is a 53-year-old male with known history of alcohol abuse, HTN, (units unknown) (unknown) (unknown) (no date) (unknown) (unknown) Micro UA Comment Microscopic normal (units unknown) (unknown) (unknown) (no date) (unknown) (unknown) Micro UA Comment (units unknown) (unknown) (unknown) (no date) (unknown) (unknown) [place] # (Auto) 600 (units unknown) (unknown) (unknown) (no date) (unknown) (unknown) [place] # (Auto) (units unknown) (unknown) (unknown) (no date) (unknown) (unknown) [place] % (Auto) 14.9 H (units unknown) (unknown) (unknown) (no date) (unknown) (unknown) [place] % (Auto) (units unknown) (unknown) (unknown) (no date) (unknown) (unknown) Mother Diabetes mellitus (units unknown) (unknown) (unknown) (no date) (unknown) (unknown) Multiple falls (units unknown) (unknown) (unknown) (no date) (unknown) (unknown) Musculoskeletal: Muscle strength and tone appear wasting, no deformity, (units unknown) (unknown) (unknown) (no date) (unknown) (unknown) Narrative (units unknown) (unknown) (unknown) (no date) (unknown) (unknown) Narrative: (units unknown) (unknown) (unknown) (no date) (unknown) (unknown) Neuro: Alert to self , confused, moves all extremities, sensation to touch (units unknown) (unknown) (unknown) (no date) (unknown) (unknown) Neut # (Auto) 1800 (units unknown) (unknown) (unknown) (no date) (unknown) (unknown) Neut # (Auto) (units unknown) (unknown) (unknown) (no date) (unknown) (unknown) Neut % (Auto) 42.4 L (units unknown) (unknown) (unknown) (no date) (unknown) (unknown) Neut % (Auto) (units unknown) (unknown) (unknown) (no date) (unknown) (unknown) Objective (units unknown) (unknown) (unknown) (no date) (unknown) (unknown) Oxygen Delivery Method Room Air (units unknown) (unknown) (unknown) (no date) (unknown) (unknown) Oxygen Delivery Method (units unknown) (unknown) (unknown) (no date) (unknown) (unknown) PFSH (units unknown) (unknown) (unknown) (no date) (unknown) (unknown) PT 11.2 (units unknown) (unknown) (unknown) (no date) (unknown) (unknown) PT (units unknown) (unknown) (unknown) (no date) (unknown) (unknown) Patient: Sj Romo MR#: [id number] (units unknown) (unknown) (unknown) (no date) (unknown) (unknown) Plt Count 296 (units unknown) (unknown) (unknown) (no date) (unknown) (unknown) Plt Count (units unknown) (unknown) (unknown) (no date) (unknown) (unknown) Potassium 3.9 (units unknown) (unknown) (unknown) (no date) (unknown) (unknown) Potassium (units unknown) (unknown) (unknown) (no date) (unknown) (unknown) Provider: Genesis Dunn (units unknown) (unknown) (unknown) (no date) (unknown) (unknown) Psych: Patient has a poor kept appearance, calm inappropriate affect-does not (units unknown) (unknown) (unknown) (no date) (unknown) (unknown) Pulse Oximetry 91 96 (units unknown) (unknown) (unknown) (no date) (unknown) (unknown) Pulse Oximetry 92 (units unknown) (unknown) (unknown) (no date) (unknown) (unknown) Pulse Oximetry 94 94 (units unknown) (unknown) (unknown) (no date) (unknown) (unknown) Pulse Oximetry 94 95 (units unknown) (unknown) (unknown) (no date) (unknown) (unknown) Pulse Oximetry 94 96 (units unknown) (unknown) (unknown) (no date) (unknown) (unknown) Pulse Oximetry 94 (units unknown) (unknown) (unknown) (no date) (unknown) (unknown) Pulse Oximetry 95 95 100 (units unknown) (unknown) (unknown) (no date) (unknown) (unknown) Pulse Oximetry 95 96 (units unknown) (unknown) (unknown) (no date) (unknown) (unknown) Pulse Oximetry 95 (units unknown) (unknown) (unknown) (no date) (unknown) (unknown) Pulse Oximetry 96 94 (units unknown) (unknown) (unknown) (no date) (unknown) (unknown) Pulse Oximetry 96 96 (units unknown) (unknown) (unknown) (no date) (unknown) (unknown) Pulse Oximetry 96 (units unknown) (unknown) (unknown) (no date) (unknown) (unknown) Pulse Rate 156 H (units unknown) (unknown) (unknown) (no date) (unknown) (unknown) Pulse Rate 69 (units unknown) (unknown) (unknown) (no date) (unknown) (unknown) Pulse Rate 71 (units unknown) (unknown) (unknown) (no date) (unknown) (unknown) Pulse Rate 74 101 H (units unknown) (unknown) (unknown) (no date) (unknown) (unknown) Pulse Rate 74 (units unknown) (unknown) (unknown) (no date) (unknown) (unknown) Pulse Rate 75 (units unknown) (unknown) (unknown) (no date) (unknown) (unknown) Pulse Rate 77 (units unknown) (unknown) (unknown) (no date) (unknown) (unknown) Pulse Rate 78 60 57 L (units unknown) (unknown) (unknown) (no date) (unknown) (unknown) Pulse Rate 78 74 (units unknown) (unknown) (unknown) (no date) (unknown) (unknown) Pulse Rate 81 77 (units unknown) (unknown) (unknown) (no date) (unknown) (unknown) Pulse Rate 83 80 (units unknown) (unknown) (unknown) (no date) (unknown) (unknown) Pulse Rate 85 78 168 H (units unknown) (unknown) (unknown) (no date) (unknown) (unknown) Pulse Rate 89 94 H (units unknown) (unknown) (unknown) (no date) (unknown) (unknown) Pulse Rate 93 H 78 (units unknown) (unknown) (unknown) (no date) (unknown) (unknown) Pulse Rate 97 H 96 H (units unknown) (unknown) (unknown) (no date) (unknown) (unknown) RBC 3.80 L (units unknown) (unknown) (unknown) (no date) (unknown) (unknown) RBC (units unknown) (unknown) (unknown) (no date) (unknown) (unknown) RDW 13.2 (units unknown) (unknown) (unknown) (no date) (unknown) (unknown) RDW (units unknown) (unknown) (unknown) (no date) (unknown) (unknown) Respiratory Rate 10 L (units unknown) (unknown) (unknown) (no date) (unknown) (unknown) Respiratory Rate 11 L (units unknown) (unknown) (unknown) (no date) (unknown) (unknown) Respiratory Rate 13 13 (units unknown) (unknown) (unknown) (no date) (unknown) (unknown) Respiratory Rate 13 (units unknown) (unknown) (unknown) (no date) (unknown) (unknown) Respiratory Rate 14 14 (units unknown) (unknown) (unknown) (no date) (unknown) (unknown) Respiratory Rate 14 23 (units unknown) (unknown) (unknown) (no date) (unknown) (unknown) Respiratory Rate 14 (units unknown) (unknown) (unknown) (no date) (unknown) (unknown) Respiratory Rate 15 (units unknown) (unknown) (unknown) (no date) (unknown) (unknown) Respiratory Rate 16 (units unknown) (unknown) (unknown) (no date) (unknown) (unknown) Respiratory Rate 18 0 L 17 (units unknown) (unknown) (unknown) (no date) (unknown) (unknown) Respiratory Rate 19 15 (units unknown) (unknown) (unknown) (no date) (unknown) (unknown) Respiratory Rate 19 18 20 (units unknown) (unknown) (unknown) (no date) (unknown) (unknown) Respiratory Rate 24 17 (units unknown) (unknown) (unknown) (no date) (unknown) (unknown) Respiratory Rate (units unknown) (unknown) (unknown) (no date) (unknown) (unknown) Review of Systems (units unknown) (unknown) (unknown) (no date) (unknown) (unknown) SARS-CoV-2 (PCR) Negative (units unknown) (unknown) (unknown) (no date) (unknown) (unknown) SARS-CoV-2 (PCR) (units unknown) (unknown) (unknown) (no date) (unknown) (unknown) Signed By: (units unknown) (unknown) (unknown) (no date) (unknown) (unknown) Skin: scabbed superficial laceration over his right forehead, small burn right (units unknown) (unknown) (unknown) (no date) (unknown) (unknown) Smoking Status: Milagro huang smoker (units unknown) (unknown) (unknown) (no date) (unknown) (unknown) Social History (Updated 01/15/23 @ 02:23 by SOMMER Chairez) (units unknown) (unknown) (unknown) (no date) (unknown) (unknown) Sodium 140 (units unknown) (unknown) (unknown) (no date) (unknown) (unknown) Sodium (units unknown) (unknown) (unknown) (no date) (unknown) (unknown) Solostar U-100 Insulin) (units unknown) (unknown) (unknown) (no date) (unknown) (unknown) Surgical History (units unknown) (unknown) (unknown) (no date) (unknown) (unknown) Time Patient Seen: 22:42 (units unknown) (unknown) (unknown) (no date) (unknown) (unknown) Total Bilirubin 0.4 (units unknown) (unknown) (unknown) (no date) (unknown) (unknown) Total Bilirubin (units unknown) (unknown) (unknown) (no date) (unknown) (unknown) Total Protein 7.2 (units unknown) (unknown) (unknown) (no date) (unknown) (unknown) Total Protein (units unknown) (unknown) (unknown) (no date) (unknown) (unknown) U Benzodiazepines Scrn Positive H (units unknown) (unknown) (unknown) (no date) (unknown) (unknown) U Benzodiazepines Scrn (units unknown) (unknown) (unknown) (no date) (unknown) (unknown) U Marijuana (THC) Screen Negative (units unknown) (unknown) (unknown) (no date) (unknown) (unknown) U Marijuana (THC) Screen (units unknown) (unknown) (unknown) (no date) (unknown) (unknown) U Methamphetamines Scrn Negative (units unknown) (unknown) (unknown) (no date) (unknown) (unknown) U Methamphetamines Scrn (units unknown) (unknown) (unknown) (no date) (unknown) (unknown) U Opiates 300ng/mL cut Positive H (units unknown) (unknown) (unknown) (no date) (unknown) (unknown) U Opiates 300ng/mL cut (units unknown) (unknown) (unknown) (no date) (unknown) (unknown) U Tricyclic Antidepress Negative (units unknown) (unknown) (unknown) (no date) (unknown) (unknown) U Tricyclic Antidepress (units unknown) (unknown) (unknown) (no date) (unknown) (unknown) Unable to obtain accurate ROS due to encephalopathy-All 12 point systems (units unknown) (unknown) (unknown) (no date) (unknown) (unknown) Ur Amphetamines Screen Negative (units unknown) (unknown) (unknown) (no date) (unknown) (unknown) Ur Amphetamines Screen (units unknown) (unknown) (unknown) (no date) (unknown) (unknown) Ur Barbiturates Screen Negative (units unknown) (unknown) (unknown) (no date) (unknown) (unknown) Ur Barbiturates Screen (units unknown) (unknown) (unknown) (no date) (unknown) (unknown) Ur Culture Indicated ? Cult not indicated (units unknown) (unknown) (unknown) (no date) (unknown) (unknown) Ur Culture Indicated? (units unknown) (unknown) (unknown) (no date) (unknown) (unknown) Ur Leukocyte [place] e Negative (units unknown) (unknown) (unknown) (no date) (unknown) (unknown) Ur Leukocyte Esterase (units unknown) (unknown) (unknown) (no date) (unknown) (unknown) Ur MDMA Scrn (Ecstasy) Negative (units unknown) (unknown) (unknown) (no date) (unknown) (unknown) Ur MDMA Scrn (Ecstasy) (units unknown) (unknown) (unknown) (no date) (unknown) (unknown) Ur Oxycodone Screen Negative (units unknown) (unknown) (unknown) (no date) (unknown) (unknown) Ur Oxycodone Screen (units unknown) (unknown) (unknown) (no date) (unknown) (unknown) Ur Phencyclidine Scr n Negative (units unknown) (unknown) (unknown) (no date) (unknown) (unknown) Ur Phencyclidine Scrn (units unknown) (unknown) (unknown) (no date) (unknown) (unknown) Ur Specific [place] 1.010 (units unknown) (unknown) (unknown) (no date) (unknown) (unknown) Ur Specific [place] (units unknown) (unknown) (unknown) (no date) (unknown) (unknown) Urine Appearance Clear (units unknown) (unknown) (unknown) (no date) (unknown) (unknown) Urine Appearance (units unknown) (unknown) (unknown) (no date) (unknown) (unknown) Urine Bacteria None seen (units unknown) (unknown) (unknown) (no date) (unknown) (unknown) Urine Bacteria (units unknown) (unknown) (unknown) (no date) (unknown) (unknown) Urine Bilirubin Negative (units unknown) (unknown) (unknown) (no date) (unknown) (unknown) Urine Bilirubin (units unknown) (unknown) (unknown) (no date) (unknown) (unknown) Urine Cocaine Screen Negative (units unknown) (unknown) (unknown) (no date) (unknown) (unknown) Urine Cocaine Screen (units unknown) (unknown) (unknown) (no date) (unknown) (unknown) Urine Color Yellow (units unknown) (unknown) (unknown) (no date) (unknown) (unknown) Urine Color (units unknown) (unknown) (unknown) (no date) (unknown) (unknown) Urine Glucose (UA) 2 + H (units unknown) (unknown) (unknown) (no date) (unknown) (unknown) Urine Glucose (UA) (units unknown) (unknown) (unknown) (no date) (unknown) (unknown) Urine Ketones Negative (units unknown) (unknown) (unknown) (no date) (unknown) (unknown) Urine Ketones (units unknown) (unknown) (unknown) (no date) (unknown) (unknown) Urine Methadone Screen Negative (units unknown) (unknown) (unknown) (no date) (unknown) (unknown) Urine Methadone Screen (units unknown) (unknown) (unknown) (no date) (unknown) (unknown) Urine Nitrate Negative (units unknown) (unknown) (unknown) (no date) (unknown) (unknown) Urine Nitrate (units unknown) (unknown) (unknown) (no date) (unknown) (unknown) Urine Occult Blood Negative (units unknown) (unknown) (unknown) (no date) (unknown) (unknown) Urine Occult Blood (units unknown) (unknown) (unknown) (no date) (unknown) (unknown) Urine Protein Negative (units unknown) (unknown) (unknown) (no date) (unknown) (unknown) Urine Protein (units unknown) (unknown) (unknown) (no date) (unknown) (unknown) Urine RBC None seen (units unknown) (unknown) (unknown) (no date) (unknown) (unknown) Urine RBC (units unknown) (unknown) (unknown) (no date) (unknown) (unknown) Urine Urobilinogen 1.0 (units unknown) (unknown) (unknown) (no date) (unknown) (unknown) Urine Urobilinogen (units unknown) (unknown) (unknown) (no date) (unknown) (unknown) Urine WBC None seen (units unknown) (unknown) (unknown) (no date) (unknown) (unknown) Urine WBC (units unknown) (unknown) (unknown) (no date) (unknown) (unknown) Urine pH 6.5 (units unknown) (unknown) (unknown) (no date) (unknown) (unknown) Urine pH (units unknown) (unknown) (unknown) (no date) (unknown) (unknown) Vital Signs (units unknown) (unknown) (unknown) (no date) (unknown) (unknown) WAS (units unknown) (unknown) (unknown) (no date) (unknown) (unknown) WBC 4.3 L (units unknown) (unknown) (unknown) (no date) (unknown) (unknown) WBC (units unknown) (unknown) (unknown) (no date) (unknown) (unknown) When asked on admit regarding code status patient requested to be a full code, (units unknown) (unknown) (unknown) (no date) (unknown) (unknown) [Embedded Image Not Available] (units unknown) (unknown) (unknown) (no date) (unknown) (unknown) [From BETADINE] FEEL S LIKE (units unknown) (unknown) (unknown) (no date) (unknown) (unknown) [SHELLFISH DERIVED] LIKE IT (units unknown) (unknown) (unknown) (no date) (unknown) (unknown) acute distress at this time. (units unknown) (unknown) (unknown) (no date) (unknown) (unknown) adenopathy, no thyroid enlargement, nontender, no masses palpated. Negative for (units unknown) (unknown) (unknown) (no date) (unknown) (unknown) admit patient is unable to state where he is unable to recall how or when he (units unknown) (unknown) (unknown) (no date) (unknown) (unknown) alcohol intake: current (units unknown) (unknown) (unknown) (no date) (unknown) (unknown) and denied suicide ideation. patient is hemodynamically stable pleasant (units unknown) (unknown) (unknown) (no date) (unknown) (unknown) anterior lower extremity, significant deep bruising to lower coccyx area. (units unknown) (unknown) (unknown) (no date) (unknown) (unknown) appear to appreciate severity of injuries and state of health, mental status (units unknown) (unknown) (unknown) (no date) (unknown) (unknown) are present in all 4 quadrants without guarding or rebound, no CVA tenderness. (units unknown) (unknown) (unknown) (no date) (unknown) (unknown) atorvastatin 40 mg tablet 40 mg PO BEDTIME 01/14/23 01/14/23 History (units unknown) (unknown) (unknown) (no date) (unknown) (unknown) attempts to transfer patient for detox, but was refused due to hyperglycemia, (units unknown) (unknown) (unknown) (no date) (unknown) (unknown) attitude thought context and judgment are inappropriate for age. (units unknown) (unknown) (unknown) (no date) (unknown) (unknown) been called to the patient's home several times over the last few days, he was (units unknown) (unknown) (unknown) (no date) (unknown) (unknown) bruising left abdomen, upper abd, chest, scabbed abrasion to left anterior lower (units unknown) (unknown) (unknown) (no date) (unknown) (unknown) bruit, no cardiac pulsations present. (units unknown) (unknown) (unknown) (no date) (unknown) (unknown) converses easily but is confused. WBC 4.3, H+H 12.3/36.9, initial glucose 344, (units unknown) (unknown) (unknown) (no date) (unknown) (unknown) covered in a variety of multiple injuries in varying degrees healing, a scabbed (units unknown) (unknown) (unknown) (no date) (unknown) (unknown) crepitus, effusions, cyanosis, clubbing or edema present. Full range of motion (units unknown) (unknown) (unknown) (no date) (unknown) (unknown) dextroamphetamine-am p hetamine 20 20 mg PO BID 01/14/23 01/14/23 History (units unknown) (unknown) (unknown) (no date) (unknown) (unknown) did not answer.? Patient was seen and evaluated by [facility] in the ED made multiple (units unknown) (unknown) (unknown) (no date) (unknown) (unknown) diffuse multiple injuries in various stages of healing from head to toe, in no (units unknown) (unknown) (unknown) (no date) (unknown) (unknown) elevated QTC on EKG, and encephalopathy. Unable to obtain accurate HPI, ROS due (units unknown) (unknown) (unknown) (no date) (unknown) (unknown) elevated QTC on EKG, and encephalopathy. (units unknown) (unknown) (unknown) (no date) (unknown) (unknown) extremities well.? I s conversant but confused.? Patient states he drinks at (units unknown) (unknown) (unknown) (no date) (unknown) (unknown) extremity, significant deep bruising to lower coccyx area. Patient denies (units unknown) (unknown) (unknown) (no date) (unknown) (unknown) fall, head injury, atrial fibrillation, encephalopathy, ETOH abuse/intoxication, (units unknown) (unknown) (unknown) (no date) (unknown) (unknown) fall, head injury, encephalopathy, ETOH abuse/intoxication, hyperglycemia. (units unknown) (unknown) (unknown) (no date) (unknown) (unknown) forearm, bruising left abdomen + upper abd, + chest, scabbed abrasion to left (units unknown) (unknown) (unknown) (no date) (unknown) (unknown) found down this evening on the bathroom floor with broken glass perhaps broken (units unknown) (unknown) (unknown) (no date) (unknown) (unknown) furosemide 20 mg tablet 20 mg PO DAILY 01/14/23 01/14/23 History (units unknown) (unknown) (unknown) (no date) (unknown) (unknown) head CT negative, CT of abdomen/pelvis multiple remote left rib fractures, left (units unknown) (unknown) (unknown) (no date) (unknown) (unknown) household members: none (units unknown) (unknown) (unknown) (no date) (unknown) (unknown) hyperglycemia. (units unknown) (unknown) (unknown) (no date) (unknown) (unknown) insulin glargine 100 unit/mL (3 20 unit SUBCUT BEDTIME 01/14/23 01/14/23 History (units unknown) (unknown) (unknown) (no date) (unknown) (unknown) insulin lispro 100 unit/mL See Rx Instructions .Route .COMPLEX 01/14/23 01/14/23 (units unknown) (unknown) (unknown) (no date) (unknown) (unknown) intact radial and pedal pulses are normal. (units unknown) (unknown) (unknown) (no date) (unknown) (unknown) intact, no gross deficits noted of cranial nerves. (units unknown) (unknown) (unknown) (no date) (unknown) (unknown) kill himself when asked why he did not answer'? When asked if he has a plan he (units unknown) (unknown) (unknown) (no date) (unknown) (unknown) least a 5th of Vodka daily, denies tobacco or illicit.? Patient is unable to (units unknown) (unknown) (unknown) (no date) (unknown) (unknown) losartan 100 mg tablet 100 mg PO DAILY 01/14/23 01/14/23 History (units unknown) (unknown) (unknown) (no date) (unknown) (unknown) mL) subcutaneous pen (Lantus (units unknown) (unknown) (unknown) (no date) (unknown) (unknown) mg tablet (units unknown) (unknown) (unknown) (no date) (unknown) (unknown) mirror and blood at the scene. Patient is confused, but redirectable. During (units unknown) (unknown) (unknown) (no date) (unknown) (unknown) mucous membranes are dry. Neck is supple and symmetric, trachea is midline, no (units unknown) (unknown) (unknown) (no date) (unknown) (unknown) negative, tox screen is positive for opiates and benzos, initial ETOH 308, (units unknown) (unknown) (unknown) (no date) (unknown) (unknown) obtain these injurie s in the events that led him to the hospital today. He is (units unknown) (unknown) (unknown) (no date) (unknown) (unknown) pain, no shortness o f breath, no GI or urinary symptoms.? He is moving all his (units unknown) (unknown) (unknown) (no date) (unknown) (unknown) penicillin G [PENICILLIN G] Allergy Unknown LEFT EAR Verified 07/27/18 10:10 (units unknown) (unknown) (unknown) (no date) (unknown) (unknown) povidone-iodine Allergy Unknown 'SKIN Verified 07/27/18 10:10 (units unknown) (unknown) (unknown) (no date) (unknown) (unknown) propranolol 20 mg tablet 20 mg PO BID 01/14/23 01/14/23 History (units unknown) (unknown) (unknown) (no date) (unknown) (unknown) recall what his medications are he believes he is on insulins but he has no idea (units unknown) (unknown) (unknown) (no date) (unknown) (unknown) repeat 254, AST 87, ALT 88, alk-phos 144, UA negative, lactate negative, lipase (units unknown) (unknown) (unknown) (no date) (unknown) (unknown) repeat 91. COVID negative. EKG sinus rhythm rate 72 QTC 499, without ST or T (units unknown) (unknown) (unknown) (no date) (unknown) (unknown) reviewed with the patient and are negative except otherwise documented. (units unknown) (unknown) (unknown) (no date) (unknown) (unknown) scapula fracture, an d L1/L2 transverse process fracture. Patient admitted for (units unknown) (unknown) (unknown) (no date) (unknown) (unknown) shellfish derived Allergy Unknown 'SKIN FELT Verified 07/27/18 10:10 (units unknown) (unknown) (unknown) (no date) (unknown) (unknown) soap [From BETADINE] Allergy Unknown 'SKIN Verified 07/27/18 10:10 (units unknown) (unknown) (unknown) (no date) (unknown) (unknown) stimulator in back lumbar + Dilaudid pain pump in abdomen.? EMS had apparently (units unknown) (unknown) (unknown) (no date) (unknown) (unknown) subcutaneous pen (Humalog KwikPen (units unknown) (unknown) (unknown) (no date) (unknown) (unknown) superficial laceration over his right forehead, small burn right forearm, (units unknown) (unknown) (unknown) (no date) (unknown) (unknown) tamsulosin 0.4 mg capsule 0.4 mg PO DAILY 01/14/23 01/14/23 History (units unknown) (unknown) (unknown) (no date) (unknown) (unknown) to encephalopathy. E D reported patient had an episode of atrial fibrillation (units unknown) (unknown) (unknown) (no date) (unknown) (unknown) to kill himself to the medics and when asked in ED he ' stated he did want to (units unknown) (unknown) (unknown) (no date) (unknown) (unknown) wave changes. Chest x-ray negative, C-spine negative, pelvic x-ray negative, (units unknown) (unknown) (unknown) (no date) (unknown) (unknown) wheezes, rhonchi, or rales. (units unknown) (unknown) (unknown) (no date) (unknown) (unknown) when or if he is taken his medication. He did make statements that he wanted (units unknown) (unknown) (unknown) (no date) (unknown) (unknown) which metoprolol was given and quickly resolved. (units unknown) (unknown) Result panel 243 (unknown) (no date) (unknown) (unknown) (no value) (units unknown) (unknown) (unknown) (no date) (unknown) (unknown) (U-100) Insulin) (units unknown) (unknown) (unknown) (no date) (unknown) (unknown) (past 8 hours): (units unknown) (unknown) (unknown) (no date) (unknown) (unknown) -CT of abdomen/pelvi s multiple remote left rib fractures, left scapula fracture, (units unknown) (unknown) (unknown) (no date) (unknown) (unknown) -Chest x-ray negative, C-spine negative, pelvic x-ray negative, head CT negative (units unknown) (unknown) (unknown) (no date) (unknown) (unknown) -brain MR ordered fo r tomorrow (units unknown) (unknown) (unknown) (no date) (unknown) (unknown) -found down by EMS (units unknown) (unknown) (unknown) (no date) (unknown) (unknown) -lives alone, permanently disabled (units unknown) (unknown) (unknown) (no date) (unknown) (unknown) -neuro checks. (units unknown) (unknown) (unknown) (no date) (unknown) (unknown) [id number] (units unknown) (unknown) (unknown) (no date) (unknown) (unknown) 01/14/23 01/14/23 01/14/23 (units unknown) (unknown) (unknown) (no date) (unknown) (unknown) 01/14/23 10:45 (units unknown) (unknown) (unknown) (no date) (unknown) (unknown) 01/14/23 (units unknown) (unknown) (unknown) (no date) (unknown) (unknown) 1. Found down, fall, with head injury, and encephalopathy, acute, present on (units unknown) (unknown) (unknown) (no date) (unknown) (unknown) 10:45 10:45 10:45 (units unknown) (unknown) (unknown) (no date) (unknown) (unknown) 10:45 11:23 13:48 (units unknown) (unknown) (unknown) (no date) (unknown) (unknown) 14:09 14:09 15:25 (units unknown) (unknown) (unknown) (no date) (unknown) (unknown) 15:00 01/14/23 (units unknown) (unknown) (unknown) (no date) (unknown) (unknown) 15:02 01/14/23 (units unknown) (unknown) (unknown) (no date) (unknown) (unknown) 15:02 (units unknown) (unknown) (unknown) (no date) (unknown) (unknown) 15:30 01/14/23 (units unknown) (unknown) (unknown) (no date) (unknown) (unknown) 16:00 01/14/23 (units unknown) (unknown) (unknown) (no date) (unknown) (unknown) 16:00 (units unknown) (unknown) (unknown) (no date) (unknown) (unknown) 16:30 01/14/23 (units unknown) (unknown) (unknown) (no date) (unknown) (unknown) 17:00 01/14/23 (units unknown) (unknown) (unknown) (no date) (unknown) (unknown) 17:00 (units unknown) (unknown) (unknown) (no date) (unknown) (unknown) 17:30 01/14/23 (units unknown) (unknown) (unknown) (no date) (unknown) (unknown) 17:30 (units unknown) (unknown) (unknown) (no date) (unknown) (unknown) 18:00 01/14/23 (units unknown) (unknown) (unknown) (no date) (unknown) (unknown) 18:15 (units unknown) (unknown) (unknown) (no date) (unknown) (unknown) 18:30 01/14/23 (units unknown) (unknown) (unknown) (no date) (unknown) (unknown) 18:30 (units unknown) (unknown) (unknown) (no date) (unknown) (unknown) 19:00 01/14/23 (units unknown) (unknown) (unknown) (no date) (unknown) (unknown) 19:15 01/14/23 (units unknown) (unknown) (unknown) (no date) (unknown) (unknown) 19:15 (units unknown) (unknown) (unknown) (no date) (unknown) (unknown) 19:20 01/14/23 (units unknown) (unknown) (unknown) (no date) (unknown) (unknown) 19:20 (units unknown) (unknown) (unknown) (no date) (unknown) (unknown) 19:25 01/14/23 (units unknown) (unknown) (unknown) (no date) (unknown) (unknown) 19:30 01/14/23 (units unknown) (unknown) (unknown) (no date) (unknown) (unknown) 19:30 (units unknown) (unknown) (unknown) (no date) (unknown) (unknown) 19:34 01/14/23 (units unknown) (unknown) (unknown) (no date) (unknown) (unknown) 19:35 01/14/23 (units unknown) (unknown) (unknown) (no date) (unknown) (unknown) 19:35 (units unknown) (unknown) (unknown) (no date) (unknown) (unknown) 19:40 01/14/23 (units unknown) (unknown) (unknown) (no date) (unknown) (unknown) 19:40 (units unknown) (unknown) (unknown) (no date) (unknown) (unknown) 19:45 01/14/23 (units unknown) (unknown) (unknown) (no date) (unknown) (unknown) 19:50 01/14/23 (units unknown) (unknown) (unknown) (no date) (unknown) (unknown) 19:50 (units unknown) (unknown) (unknown) (no date) (unknown) (unknown) 19:55 01/14/23 (units unknown) (unknown) (unknown) (no date) (unknown) (unknown) 19:55 (units unknown) (unknown) (unknown) (no date) (unknown) (unknown) 20:00 01/14/23 (units unknown) (unknown) (unknown) (no date) (unknown) (unknown) 20:05 01/14/23 (units unknown) (unknown) (unknown) (no date) (unknown) (unknown) 20:05 (units unknown) (unknown) (unknown) (no date) (unknown) (unknown) 20:30 01/14/23 (units unknown) (unknown) (unknown) (no date) (unknown) (unknown) 20:30 (units unknown) (unknown) (unknown) (no date) (unknown) (unknown) 21:00 01/14/23 (units unknown) (unknown) (unknown) (no date) (unknown) (unknown) 21:30 01/14/23 (units unknown) (unknown) (unknown) (no date) (unknown) (unknown) 21:30 (units unknown) (unknown) (unknown) (no date) (unknown) (unknown) 22:00 01/14/23 (units unknown) (unknown) (unknown) (no date) (unknown) (unknown) 22:25 (units unknown) (unknown) (unknown) (no date) (unknown) (unknown) AGE 12YR (units unknown) (unknown) (unknown) (no date) (unknown) (unknown) ALT 88 H (units unknown) (unknown) (unknown) (no date) (unknown) (unknown) ALT (units unknown) (unknown) (unknown) (no date) (unknown) (unknown) APTT 34 (units unknown) (unknown) (unknown) (no date) (unknown) (unknown) APTT (units unknown) (unknown) (unknown) (no date) (unknown) (unknown) AST 87 H (units unknown) (unknown) (unknown) (no date) (unknown) (unknown) AST (units unknown) (unknown) (unknown) (no date) (unknown) (unknown) Abdomen: Soft nontender, negative for organomegaly, or masses. Bowel sounds (units unknown) (unknown) (unknown) (no date) (unknown) (unknown) Age/Sex: 53 / M (units unknown) (unknown) (unknown) (no date) (unknown) (unknown) Albumin 4.0 (units unknown) (unknown) (unknown) (no date) (unknown) (unknown) Albumin (units unknown) (unknown) (unknown) (no date) (unknown) (unknown) Albumin/Globulin Ratio 1.3 (units unknown) (unknown) (unknown) (no date) (unknown) (unknown) Albumin/Globulin Ratio (units unknown) (unknown) (unknown) (no date) (unknown) (unknown) Alcohol intoxication (units unknown) (unknown) (unknown) (no date) (unknown) (unknown) Alkaline Phosphatase 146 H (units unknown) (unknown) (unknown) (no date) (unknown) (unknown) Alkaline Phosphatase (units unknown) (unknown) (unknown) (no date) (unknown) (unknown) Allergies (units unknown) (unknown) (unknown) (no date) (unknown) (unknown) Allergy/AdvReac Type Severity Reaction Status Date / Time (units unknown) (unknown) (unknown) (no date) (unknown) (unknown) Antibody Screen Negative (units unknown) (unknown) (unknown) (no date) (unknown) (unknown) Antibody Screen (units unknown) (unknown) (unknown) (no date) (unknown) (unknown) Assessment + Plan narrative: (units unknown) (unknown) (unknown) (no date) (unknown) (unknown) Assessment + Plan (units unknown) (unknown) (unknown) (no date) (unknown) (unknown) BPH (benign prostati c hyperplasia) (units unknown) (unknown) (unknown) (no date) (unknown) (unknown) BUN 8 L (units unknown) (unknown) (unknown) (no date) (unknown) (unknown) BUN (units unknown) (unknown) (unknown) (no date) (unknown) (unknown) BUN/Creatinine Ratio 19.0 (units unknown) (unknown) (unknown) (no date) (unknown) (unknown) BUN/Creatinine Ratio (units unknown) (unknown) (unknown) (no date) (unknown) (unknown) BURNING' (units unknown) (unknown) (unknown) (no date) (unknown) (unknown) Baso # (Auto) 100 (units unknown) (unknown) (unknown) (no date) (unknown) (unknown) Baso # (Auto) (units unknown) (unknown) (unknown) (no date) (unknown) (unknown) Baso % (Auto) 1.4 (units unknown) (unknown) (unknown) (no date) (unknown) (unknown) Baso % (Auto) (units unknown) (unknown) (unknown) (no date) (unknown) (unknown) Blood Pressure 106/5 2 L 113/56 L (units unknown) (unknown) (unknown) (no date) (unknown) (unknown) Blood Pressure 121/73 (units unknown) (unknown) (unknown) (no date) (unknown) (unknown) Blood Pressure 129/8 0 138/76 (units unknown) (unknown) (unknown) (no date) (unknown) (unknown) Blood Pressure 130/8 2 162/103 H (units unknown) (unknown) (unknown) (no date) (unknown) (unknown) Blood Pressure 132/9 6 H 169/93 H (units unknown) (unknown) (unknown) (no date) (unknown) (unknown) Blood Pressure 137/72 (units unknown) (unknown) (unknown) (no date) (unknown) (unknown) Blood Pressure 137/85 (units unknown) (unknown) (unknown) (no date) (unknown) (unknown) Blood Pressure 138/102 H 130/92 H (units unknown) (unknown) (unknown) (no date) (unknown) (unknown) Blood Pressure 142/8 9 H (units unknown) (unknown) (unknown) (no date) (unknown) (unknown) Blood Pressure 143/9 4 H 141/93 H (units unknown) (unknown) (unknown) (no date) (unknown) (unknown) Blood Pressure 148/8 2 H (units unknown) (unknown) (unknown) (no date) (unknown) (unknown) Blood Pressure 155/9 5 H 124/84 (units unknown) (unknown) (unknown) (no date) (unknown) (unknown) Blood Pressure 158/9 5 H (units unknown) (unknown) (unknown) (no date) (unknown) (unknown) Blood Pressure 172/8 8 H (units unknown) (unknown) (unknown) (no date) (unknown) (unknown) Blood Pressure 175/108 H (units unknown) (unknown) (unknown) (no date) (unknown) (unknown) Blood Pressure (units unknown) (unknown) (unknown) (no date) (unknown) (unknown) Blood Type O Positive (units unknown) (unknown) (unknown) (no date) (unknown) (unknown) Blood Type (units unknown) (unknown) (unknown) (no date) (unknown) (unknown) Calcium 8.5 (units unknown) (unknown) (unknown) (no date) (unknown) (unknown) Calcium (units unknown) (unknown) (unknown) (no date) (unknown) (unknown) Carbon Dioxide 30 (units unknown) (unknown) (unknown) (no date) (unknown) (unknown) Carbon Dioxide (units unknown) (unknown) (unknown) (no date) (unknown) (unknown) Cardio: regular rate and rhythm without murmur, rubs, or gallops, no carotid (units unknown) (unknown) (unknown) (no date) (unknown) (unknown) Chest: Breathing no nasal flaring, retractions, or tachypneic labored (units unknown) (unknown) (unknown) (no date) (unknown) (unknown) Chief complaint: Trauma (units unknown) (unknown) (unknown) (no date) (unknown) (unknown) Chloride 100 (units unknown) (unknown) (unknown) (no date) (unknown) (unknown) Chloride (units unknown) (unknown) (unknown) (no date) (unknown) (unknown) Chronic low back pain (units unknown) (unknown) (unknown) (no date) (unknown) (unknown) Comment: (units unknown) (unknown) (unknown) (no date) (unknown) (unknown) Congestive heart failure (units unknown) (unknown) (unknown) (no date) (unknown) (unknown) Creatinine 0.42 L (units unknown) (unknown) (unknown) (no date) (unknown) (unknown) Creatinine (units unknown) (unknown) (unknown) (no date) (unknown) (unknown) : 1970 Acct:[id number] (units unknown) (unknown) (unknown) (no date) (unknown) (unknown) Date Patient Seen: 01/14/23 (units unknown) (unknown) (unknown) (no date) (unknown) (unknown) Date of Service: 01/14/23 (units unknown) (unknown) (unknown) (no date) (unknown) (unknown) Drinks a 5th of vodk a daily (units unknown) (unknown) (unknown) (no date) (unknown) (unknown) ED made multiple attempts to transfer patient for detox, but was refused due to (units unknown) (unknown) (unknown) (no date) (unknown) (unknown) Eos # (Auto) 100 (units unknown) (unknown) (unknown) (no date) (unknown) (unknown) Eos # (Auto) (units unknown) (unknown) (unknown) (no date) (unknown) (unknown) Eos % (Auto) 2.2 (units unknown) (unknown) (unknown) (no date) (unknown) (unknown) Eos % (Auto) (units unknown) (unknown) (unknown) (no date) (unknown) (unknown) Essential hypertension (units unknown) (unknown) (unknown) (no date) (unknown) (unknown) Estimated GFR > 60 (units unknown) (unknown) (unknown) (no date) (unknown) (unknown) Estimated GFR (units unknown) (unknown) (unknown) (no date) (unknown) (unknown) Ethyl Alcohol 308 H (units unknown) (unknown) (unknown) (no date) (unknown) (unknown) Ethyl Alcohol 91 H (units unknown) (unknown) (unknown) (no date) (unknown) (unknown) Ethyl Alcohol (units unknown) (unknown) (unknown) (no date) (unknown) (unknown) Exam Narrative: (units unknown) (unknown) (unknown) (no date) (unknown) (unknown) Exam (units unknown) (unknown) (unknown) (no date) (unknown) (unknown) FEELS LIKE (units unknown) (unknown) (unknown) (no date) (unknown) (unknown) Family History (Updated 01/15/23 @ 02:24 by Genesis Dunn, [facility]) (units unknown) (unknown) (unknown) (no date) (unknown) (unknown) Father Diabetes mellitus (units unknown) (unknown) (unknown) (no date) (unknown) (unknown) General: Patient is disheveled, appears chronically ill and unwell, with (units unknown) (unknown) (unknown) (no date) (unknown) (unknown) Globulin 3.2 (units unknown) (unknown) (unknown) (no date) (unknown) (unknown) Globulin (units unknown) (unknown) (unknown) (no date) (unknown) (unknown) Glucose 254 H (units unknown) (unknown) (unknown) (no date) (unknown) (unknown) Glucose (units unknown) (unknown) (unknown) (no date) (unknown) (unknown) HEARING (units unknown) (unknown) (unknown) (no date) (unknown) (unknown) HEENT: Normocephalic , extraocular muscles intact, oral pharynx is clear and (units unknown) (unknown) (unknown) (no date) (unknown) (unknown) HLD, BPH, insulin-dependent diabetes and chronic low back pain tx with InterStim (units unknown) (unknown) (unknown) (no date) (unknown) (unknown) Hct 36.9 L (units unknown) (unknown) (unknown) (no date) (unknown) (unknown) Hct (units unknown) (unknown) (unknown) (no date) (unknown) (unknown) Hgb 12.3 L (units unknown) (unknown) (unknown) (no date) (unknown) (unknown) Hgb (units unknown) (unknown) (unknown) (no date) (unknown) (unknown) History + Physical Report (units unknown) (unknown) (unknown) (no date) (unknown) (unknown) History of Present Illness (units unknown) (unknown) (unknown) (no date) (unknown) (unknown) History of shoulder surgery (units unknown) (unknown) (unknown) (no date) (unknown) (unknown) History (units unknown) (unknown) (unknown) (no date) (unknown) (unknown) Home Medications and Allergies (units unknown) (unknown) (unknown) (no date) (unknown) (unknown) Home Medications (units unknown) (unknown) (unknown) (no date) (unknown) (unknown) Hyperlipidemia due t o type 1 diabetes mellitus (units unknown) (unknown) (unknown) (no date) (unknown) (unknown) INR 1.0 (units unknown) (unknown) (unknown) (no date) (unknown) (unknown) INR (units unknown) (unknown) (unknown) (no date) (unknown) (unknown) [address] [address] (units unknown) (unknown) (unknown) (no date) (unknown) (unknown) JVD (units unknown) (unknown) (unknown) (no date) (unknown) (unknown) LOSS AT (units unknown) (unknown) (unknown) (no date) (unknown) (unknown) Laboratory Results - last 24 hr (units unknown) (unknown) (unknown) (no date) (unknown) (unknown) Labs (units unknown) (unknown) (unknown) (no date) (unknown) (unknown) Labs: (units unknown) (unknown) (unknown) (no date) (unknown) (unknown) Lactate 2.1 1.9 (units unknown) (unknown) (unknown) (no date) (unknown) (unknown) Lactate (units unknown) (unknown) (unknown) (no date) (unknown) (unknown) Lipase 109 (units unknown) (unknown) (unknown) (no date) (unknown) (unknown) Lipase (units unknown) (unknown) (unknown) (no date) (unknown) (unknown) Lungs: Auscultation of all lung lopez are clear without adventitious sounds, (units unknown) (unknown) (unknown) (no date) (unknown) (unknown) Lymph # (Auto) 1700 (units unknown) (unknown) (unknown) (no date) (unknown) (unknown) Lymph # (Auto) (units unknown) (unknown) (unknown) (no date) (unknown) (unknown) Lymph % (Auto) 39.1 (units unknown) (unknown) (unknown) (no date) (unknown) (unknown) Lymph % (Auto) (units unknown) (unknown) (unknown) (no date) (unknown) (unknown) MCH 32.5 (units unknown) (unknown) (unknown) (no date) (unknown) (unknown) MCH (units unknown) (unknown) (unknown) (no date) (unknown) (unknown) MCHC 33.5 (units unknown) (unknown) (unknown) (no date) (unknown) (unknown) MCHC (units unknown) (unknown) (unknown) (no date) (unknown) (unknown) MCV 97.1 (units unknown) (unknown) (unknown) (no date) (unknown) (unknown) MCV (units unknown) (unknown) (unknown) (no date) (unknown) (unknown) Medical History (units unknown) (unknown) (unknown) (no date) (unknown) (unknown) Medication Instructions Recorded Confirmed Type (units unknown) (unknown) (unknown) (no date) (unknown) (unknown) Meds (units unknown) (unknown) (unknown) (no date) (unknown) (unknown) Sj Romo is a 53-year-old male with known history of alcohol abuse, HTN, (units unknown) (unknown) (unknown) (no date) (unknown) (unknown) Micro UA Comment Microscopic normal (units unknown) (unknown) (unknown) (no date) (unknown) (unknown) Micro UA Comment (units unknown) (unknown) (unknown) (no date) (unknown) (unknown) [place] # (Auto) 600 (units unknown) (unknown) (unknown) (no date) (unknown) (unknown) [place] # (Auto) (units unknown) (unknown) (unknown) (no date) (unknown) (unknown) [place] % (Auto) 14.9 H (units unknown) (unknown) (unknown) (no date) (unknown) (unknown) [place] % (Auto) (units unknown) (unknown) (unknown) (no date) (unknown) (unknown) Mother Diabetes mellitus (units unknown) (unknown) (unknown) (no date) (unknown) (unknown) Multiple falls (units unknown) (unknown) (unknown) (no date) (unknown) (unknown) Musculoskeletal: Muscle strength and tone appear wasting, no deformity, (units unknown) (unknown) (unknown) (no date) (unknown) (unknown) Narrative (units unknown) (unknown) (unknown) (no date) (unknown) (unknown) Narrative: (units unknown) (unknown) (unknown) (no date) (unknown) (unknown) Neuro: Alert to self , confused, moves all extremities, sensation to touch (units unknown) (unknown) (unknown) (no date) (unknown) (unknown) Neut # (Auto) 1800 (units unknown) (unknown) (unknown) (no date) (unknown) (unknown) Neut # (Auto) (units unknown) (unknown) (unknown) (no date) (unknown) (unknown) Neut % (Auto) 42.4 L (units unknown) (unknown) (unknown) (no date) (unknown) (unknown) Neut % (Auto) (units unknown) (unknown) (unknown) (no date) (unknown) (unknown) Objective (units unknown) (unknown) (unknown) (no date) (unknown) (unknown) Oxygen Delivery Method Room Air (units unknown) (unknown) (unknown) (no date) (unknown) (unknown) Oxygen Delivery Method (units unknown) (unknown) (unknown) (no date) (unknown) (unknown) PFSH (units unknown) (unknown) (unknown) (no date) (unknown) (unknown) PT 11.2 (units unknown) (unknown) (unknown) (no date) (unknown) (unknown) PT (units unknown) (unknown) (unknown) (no date) (unknown) (unknown) Patient: Sj Romo MR#: [id number] (units unknown) (unknown) (unknown) (no date) (unknown) (unknown) Plt Count 296 (units unknown) (unknown) (unknown) (no date) (unknown) (unknown) Plt Count (units unknown) (unknown) (unknown) (no date) (unknown) (unknown) Potassium 3.9 (units unknown) (unknown) (unknown) (no date) (unknown) (unknown) Potassium (units unknown) (unknown) (unknown) (no date) (unknown) (unknown) Provider: Genesis DunnP-BC (units unknown) (unknown) (unknown) (no date) (unknown) (unknown) Psych: Patient has a poor kept appearance, calm inappropriate affect-does not (units unknown) (unknown) (unknown) (no date) (unknown) (unknown) Pulse Oximetry 91 96 (units unknown) (unknown) (unknown) (no date) (unknown) (unknown) Pulse Oximetry 92 (units unknown) (unknown) (unknown) (no date) (unknown) (unknown) Pulse Oximetry 94 94 (units unknown) (unknown) (unknown) (no date) (unknown) (unknown) Pulse Oximetry 94 95 (units unknown) (unknown) (unknown) (no date) (unknown) (unknown) Pulse Oximetry 94 96 (units unknown) (unknown) (unknown) (no date) (unknown) (unknown) Pulse Oximetry 94 (units unknown) (unknown) (unknown) (no date) (unknown) (unknown) Pulse Oximetry 95 95 100 (units unknown) (unknown) (unknown) (no date) (unknown) (unknown) Pulse Oximetry 95 96 (units unknown) (unknown) (unknown) (no date) (unknown) (unknown) Pulse Oximetry 95 (units unknown) (unknown) (unknown) (no date) (unknown) (unknown) Pulse Oximetry 96 94 (units unknown) (unknown) (unknown) (no date) (unknown) (unknown) Pulse Oximetry 96 96 (units unknown) (unknown) (unknown) (no date) (unknown) (unknown) Pulse Oximetry 96 (units unknown) (unknown) (unknown) (no date) (unknown) (unknown) Pulse Rate 156 H (units unknown) (unknown) (unknown) (no date) (unknown) (unknown) Pulse Rate 69 (units unknown) (unknown) (unknown) (no date) (unknown) (unknown) Pulse Rate 71 (units unknown) (unknown) (unknown) (no date) (unknown) (unknown) Pulse Rate 74 101 H (units unknown) (unknown) (unknown) (no date) (unknown) (unknown) Pulse Rate 74 (units unknown) (unknown) (unknown) (no date) (unknown) (unknown) Pulse Rate 75 (units unknown) (unknown) (unknown) (no date) (unknown) (unknown) Pulse Rate 77 (units unknown) (unknown) (unknown) (no date) (unknown) (unknown) Pulse Rate 78 60 57 L (units unknown) (unknown) (unknown) (no date) (unknown) (unknown) Pulse Rate 78 74 (units unknown) (unknown) (unknown) (no date) (unknown) (unknown) Pulse Rate 81 77 (units unknown) (unknown) (unknown) (no date) (unknown) (unknown) Pulse Rate 83 80 (units unknown) (unknown) (unknown) (no date) (unknown) (unknown) Pulse Rate 85 78 168 H (units unknown) (unknown) (unknown) (no date) (unknown) (unknown) Pulse Rate 89 94 H (units unknown) (unknown) (unknown) (no date) (unknown) (unknown) Pulse Rate 93 H 78 (units unknown) (unknown) (unknown) (no date) (unknown) (unknown) Pulse Rate 97 H 96 H (units unknown) (unknown) (unknown) (no date) (unknown) (unknown) RBC 3.80 L (units unknown) (unknown) (unknown) (no date) (unknown) (unknown) RBC (units unknown) (unknown) (unknown) (no date) (unknown) (unknown) RDW 13.2 (units unknown) (unknown) (unknown) (no date) (unknown) (unknown) RDW (units unknown) (unknown) (unknown) (no date) (unknown) (unknown) Respiratory Rate 10 L (units unknown) (unknown) (unknown) (no date) (unknown) (unknown) Respiratory Rate 11 L (units unknown) (unknown) (unknown) (no date) (unknown) (unknown) Respiratory Rate 13 13 (units unknown) (unknown) (unknown) (no date) (unknown) (unknown) Respiratory Rate 13 (units unknown) (unknown) (unknown) (no date) (unknown) (unknown) Respiratory Rate 14 14 (units unknown) (unknown) (unknown) (no date) (unknown) (unknown) Respiratory Rate 14 23 (units unknown) (unknown) (unknown) (no date) (unknown) (unknown) Respiratory Rate 14 (units unknown) (unknown) (unknown) (no date) (unknown) (unknown) Respiratory Rate 15 (units unknown) (unknown) (unknown) (no date) (unknown) (unknown) Respiratory Rate 16 (units unknown) (unknown) (unknown) (no date) (unknown) (unknown) Respiratory Rate 18 0 L 17 (units unknown) (unknown) (unknown) (no date) (unknown) (unknown) Respiratory Rate 19 15 (units unknown) (unknown) (unknown) (no date) (unknown) (unknown) Respiratory Rate 19 18 20 (units unknown) (unknown) (unknown) (no date) (unknown) (unknown) Respiratory Rate 24 17 (units unknown) (unknown) (unknown) (no date) (unknown) (unknown) Respiratory Rate (units unknown) (unknown) (unknown) (no date) (unknown) (unknown) Review of Systems (units unknown) (unknown) (unknown) (no date) (unknown) (unknown) SARS-CoV-2 (PCR) Negative (units unknown) (unknown) (unknown) (no date) (unknown) (unknown) SARS-CoV-2 (PCR) (units unknown) (unknown) (unknown) (no date) (unknown) (unknown) Signed By: (units unknown) (unknown) (unknown) (no date) (unknown) (unknown) Skin: scabbed superficial laceration over his right forehead, small burn right (units unknown) (unknown) (unknown) (no date) (unknown) (unknown) Smoking Status: [place] r smoker (units unknown) (unknown) (unknown) (no date) (unknown) (unknown) Social History (Updated 01/15/23 @ 02:23 by DOUG Chairez) (units unknown) (unknown) (unknown) (no date) (unknown) (unknown) Sodium 140 (units unknown) (unknown) (unknown) (no date) (unknown) (unknown) Sodium (units unknown) (unknown) (unknown) (no date) (unknown) (unknown) Solostar U-100 Insulin) (units unknown) (unknown) (unknown) (no date) (unknown) (unknown) Surgical History (units unknown) (unknown) (unknown) (no date) (unknown) (unknown) Time Patient Seen: 22:42 (units unknown) (unknown) (unknown) (no date) (unknown) (unknown) Total Bilirubin 0.4 (units unknown) (unknown) (unknown) (no date) (unknown) (unknown) Total Bilirubin (units unknown) (unknown) (unknown) (no date) (unknown) (unknown) Total Protein 7.2 (units unknown) (unknown) (unknown) (no date) (unknown) (unknown) Total Protein (units unknown) (unknown) (unknown) (no date) (unknown) (unknown) U Benzodiazepines Scrn Positive H (units unknown) (unknown) (unknown) (no date) (unknown) (unknown) U Benzodiazepines Scrn (units unknown) (unknown) (unknown) (no date) (unknown) (unknown) U Marijuana (THC) Screen Negative (units unknown) (unknown) (unknown) (no date) (unknown) (unknown) U Marijuana (THC) Screen (units unknown) (unknown) (unknown) (no date) (unknown) (unknown) U Methamphetamines Scrn Negative (units unknown) (unknown) (unknown) (no date) (unknown) (unknown) U Methamphetamines Scrn (units unknown) (unknown) (unknown) (no date) (unknown) (unknown) U Opiates 300ng/mL cut Positive H (units unknown) (unknown) (unknown) (no date) (unknown) (unknown) U Opiates 300ng/mL cut (units unknown) (unknown) (unknown) (no date) (unknown) (unknown) U Tricyclic Antidepress Negative (units unknown) (unknown) (unknown) (no date) (unknown) (unknown) U Tricyclic Antidepress (units unknown) (unknown) (unknown) (no date) (unknown) (unknown) Unable to obtain accurate ROS due to encephalopathy-All 12 point systems (units unknown) (unknown) (unknown) (no date) (unknown) (unknown) Ur Amphetamines Screen Negative (units unknown) (unknown) (unknown) (no date) (unknown) (unknown) Ur Amphetamines Screen (units unknown) (unknown) (unknown) (no date) (unknown) (unknown) Ur Barbiturates Screen Negative (units unknown) (unknown) (unknown) (no date) (unknown) (unknown) Ur Barbiturates Screen (units unknown) (unknown) (unknown) (no date) (unknown) (unknown) Ur Culture Indicated ? Cult not indicated (units unknown) (unknown) (unknown) (no date) (unknown) (unknown) Ur Culture Indicated? (units unknown) (unknown) (unknown) (no date) (unknown) (unknown) Ur Leukocyte Ester[place] e Negative (units unknown) (unknown) (unknown) (no date) (unknown) (unknown) Ur Leukocyte Esterase (units unknown) (unknown) (unknown) (no date) (unknown) (unknown) Ur MDMA Scrn (Ecstasy) Negative (units unknown) (unknown) (unknown) (no date) (unknown) (unknown) Ur MDMA Scrn (Ecstasy) (units unknown) (unknown) (unknown) (no date) (unknown) (unknown) Ur Oxycodone Screen Negative (units unknown) (unknown) (unknown) (no date) (unknown) (unknown) Ur Oxycodone Screen (units unknown) (unknown) (unknown) (no date) (unknown) (unknown) Ur Phencyclidine Scr n Negative (units unknown) (unknown) (unknown) (no date) (unknown) (unknown) Ur Phencyclidine Scrn (units unknown) (unknown) (unknown) (no date) (unknown) (unknown) Ur Specific [place] 1.010 (units unknown) (unknown) (unknown) (no date) (unknown) (unknown) Ur Specific [place] (units unknown) (unknown) (unknown) (no date) (unknown) (unknown) Urine Appearance Clear (units unknown) (unknown) (unknown) (no date) (unknown) (unknown) Urine Appearance (units unknown) (unknown) (unknown) (no date) (unknown) (unknown) Urine Bacteria None seen (units unknown) (unknown) (unknown) (no date) (unknown) (unknown) Urine Bacteria (units unknown) (unknown) (unknown) (no date) (unknown) (unknown) Urine Bilirubin Negative (units unknown) (unknown) (unknown) (no date) (unknown) (unknown) Urine Bilirubin (units unknown) (unknown) (unknown) (no date) (unknown) (unknown) Urine Cocaine Screen Negative (units unknown) (unknown) (unknown) (no date) (unknown) (unknown) Urine Cocaine Screen (units unknown) (unknown) (unknown) (no date) (unknown) (unknown) Urine Color Yellow (units unknown) (unknown) (unknown) (no date) (unknown) (unknown) Urine Color (units unknown) (unknown) (unknown) (no date) (unknown) (unknown) Urine Glucose (UA) 2 + H (units unknown) (unknown) (unknown) (no date) (unknown) (unknown) Urine Glucose (UA) (units unknown) (unknown) (unknown) (no date) (unknown) (unknown) Urine Ketones Negative (units unknown) (unknown) (unknown) (no date) (unknown) (unknown) Urine Ketones (units unknown) (unknown) (unknown) (no date) (unknown) (unknown) Urine Methadone Screen Negative (units unknown) (unknown) (unknown) (no date) (unknown) (unknown) Urine Methadone Screen (units unknown) (unknown) (unknown) (no date) (unknown) (unknown) Urine Nitrate Negative (units unknown) (unknown) (unknown) (no date) (unknown) (unknown) Urine Nitrate (units unknown) (unknown) (unknown) (no date) (unknown) (unknown) Urine Occult Blood Negative (units unknown) (unknown) (unknown) (no date) (unknown) (unknown) Urine Occult Blood (units unknown) (unknown) (unknown) (no date) (unknown) (unknown) Urine Protein Negative (units unknown) (unknown) (unknown) (no date) (unknown) (unknown) Urine Protein (units unknown) (unknown) (unknown) (no date) (unknown) (unknown) Urine RBC None seen (units unknown) (unknown) (unknown) (no date) (unknown) (unknown) Urine RBC (units unknown) (unknown) (unknown) (no date) (unknown) (unknown) Urine Urobilinogen 1.0 (units unknown) (unknown) (unknown) (no date) (unknown) (unknown) Urine Urobilinogen (units unknown) (unknown) (unknown) (no date) (unknown) (unknown) Urine WBC None seen (units unknown) (unknown) (unknown) (no date) (unknown) (unknown) Urine WBC (units unknown) (unknown) (unknown) (no date) (unknown) (unknown) Urine pH 6.5 (units unknown) (unknown) (unknown) (no date) (unknown) (unknown) Urine pH (units unknown) (unknown) (unknown) (no date) (unknown) (unknown) Vital Signs (units unknown) (unknown) (unknown) (no date) (unknown) (unknown) WAS (units unknown) (unknown) (unknown) (no date) (unknown) (unknown) WBC 4.3 L (units unknown) (unknown) (unknown) (no date) (unknown) (unknown) WBC (units unknown) (unknown) (unknown) (no date) (unknown) (unknown) When asked on admit regarding code status patient requested to be a full code, (units unknown) (unknown) (unknown) (no date) (unknown) (unknown) [Embedded Image Not Available] (units unknown) (unknown) (unknown) (no date) (unknown) (unknown) [From BETADINE] FEEL S LIKE (units unknown) (unknown) (unknown) (no date) (unknown) (unknown) [SHELLFISH DERIVED] LIKE IT (units unknown) (unknown) (unknown) (no date) (unknown) (unknown) acute distress at this time. (units unknown) (unknown) (unknown) (no date) (unknown) (unknown) adenopathy, no thyroid enlargement, nontender, no masses palpated. Negative for (units unknown) (unknown) (unknown) (no date) (unknown) (unknown) admission (units unknown) (unknown) (unknown) (no date) (unknown) (unknown) admit patient is unable to state where he is unable to recall how or when he (units unknown) (unknown) (unknown) (no date) (unknown) (unknown) alcohol intake: current (units unknown) (unknown) (unknown) (no date) (unknown) (unknown) and L1/L2 transverse process fracture. (units unknown) (unknown) (unknown) (no date) (unknown) (unknown) and denied suicide ideation. patient is hemodynamically stable pleasant (units unknown) (unknown) (unknown) (no date) (unknown) (unknown) anterior lower extremity, significant deep bruising to lower coccyx area. (units unknown) (unknown) (unknown) (no date) (unknown) (unknown) appear to appreciate severity of injuries and state of health, mental status (units unknown) (unknown) (unknown) (no date) (unknown) (unknown) are present in all 4 quadrants without guarding or rebound, no CVA tenderness. (units unknown) (unknown) (unknown) (no date) (unknown) (unknown) atorvastatin 40 mg tablet 40 mg PO BEDTIME 01/14/23 01/14/23 History (units unknown) (unknown) (unknown) (no date) (unknown) (unknown) attempts to transfer patient for detox, but was refused due to hyperglycemia, (units unknown) (unknown) (unknown) (no date) (unknown) (unknown) attitude thought context and judgment are in appropriate for age. (units unknown) (unknown) (unknown) (no date) (unknown) (unknown) been called to the patient's home several times over the last few days, he was (units unknown) (unknown) (unknown) (no date) (unknown) (unknown) blood and broken glass around him. Patient was seen and evaluated by [facility] in the (units unknown) (unknown) (unknown) (no date) (unknown) (unknown) bruising left abdomen, upper abd, chest, scabbed abrasion to left anterior lower (units unknown) (unknown) (unknown) (no date) (unknown) (unknown) bruit, no cardiac pulsations present. (units unknown) (unknown) (unknown) (no date) (unknown) (unknown) converses easily but is confused. WBC 4.3, H+H 12.3/36.9, initial glucose 344, (units unknown) (unknown) (unknown) (no date) (unknown) (unknown) covered in a variety of multiple injuries in varying degrees healing, a scabbed (units unknown) (unknown) (unknown) (no date) (unknown) (unknown) crepitus, effusions, cyanosis, clubbing or edema present. Full range of motion (units unknown) (unknown) (unknown) (no date) (unknown) (unknown) dextroamphetamine-am p hetamine 20 20 mg PO BID 01/14/23 01/14/23 History (units unknown) (unknown) (unknown) (no date) (unknown) (unknown) did not answer.? Patient was seen and evaluated by [facility] in the ED made multiple (units unknown) (unknown) (unknown) (no date) (unknown) (unknown) diffuse multiple injuries in various stages of healing from head to toe, in no (units unknown) (unknown) (unknown) (no date) (unknown) (unknown) elevated QTC on EKG, and encephalopathy. Unable to obtain accurate HPI, ROS due (units unknown) (unknown) (unknown) (no date) (unknown) (unknown) extremities well.? I s conversant but confused.? Patient states he drinks at (units unknown) (unknown) (unknown) (no date) (unknown) (unknown) extremity, significant deep bruising to lower coccyx area. Patient denies (units unknown) (unknown) (unknown) (no date) (unknown) (unknown) fall, head injury, atrial fibrillation, encephalopathy, ETOH abuse/intoxication, (units unknown) (unknown) (unknown) (no date) (unknown) (unknown) fall, head injury, encephalopathy, ETOH abuse/intoxication, hyperglycemia. (units unknown) (unknown) (unknown) (no date) (unknown) (unknown) forearm, bruising left abdomen + upper abd, + chest, scabbed abrasion to left (units unknown) (unknown) (unknown) (no date) (unknown) (unknown) found down this evening on the bathroom floor with broken glass perhaps broken (units unknown) (unknown) (unknown) (no date) (unknown) (unknown) furosemide 20 mg tablet 20 mg PO DAILY 01/14/23 01/14/23 History (units unknown) (unknown) (unknown) (no date) (unknown) (unknown) head CT negative, CT of abdomen/pelvis multiple remote left rib fractures, left (units unknown) (unknown) (unknown) (no date) (unknown) (unknown) household members: none (units unknown) (unknown) (unknown) (no date) (unknown) (unknown) hyperglycemia, elevated QTC on EKG, and encephalopathy. Patient admitted for (units unknown) (unknown) (unknown) (no date) (unknown) (unknown) hyperglycemia. (units unknown) (unknown) (unknown) (no date) (unknown) (unknown) insulin glargine 100 unit/mL (3 20 unit SUBCUT BEDTIME 01/14/23 01/14/23 History (units unknown) (unknown) (unknown) (no date) (unknown) (unknown) insulin lispro 100 unit/mL See Rx Instructions .Route .COMPLEX 01/14/23 01/14/23 (units unknown) (unknown) (unknown) (no date) (unknown) (unknown) intact radial and pedal pulses are normal. (units unknown) (unknown) (unknown) (no date) (unknown) (unknown) intact, no gross deficits noted of cranial nerves. (units unknown) (unknown) (unknown) (no date) (unknown) (unknown) kill himself when asked why he did not answer'? When asked if he has a plan he (units unknown) (unknown) (unknown) (no date) (unknown) (unknown) least a 5th of Vodka daily, denies tobacco or illicit.? Patient is unable to (units unknown) (unknown) (unknown) (no date) (unknown) (unknown) losartan 100 mg tablet 100 mg PO DAILY 01/14/23 01/14/23 History (units unknown) (unknown) (unknown) (no date) (unknown) (unknown) mL) subcutaneous pen (Lantus (units unknown) (unknown) (unknown) (no date) (unknown) (unknown) mg tablet (units unknown) (unknown) (unknown) (no date) (unknown) (unknown) mirror and blood at the scene. Patient is confused, but redirectable. During (units unknown) (unknown) (unknown) (no date) (unknown) (unknown) mucous membranes are dry. Neck is supple and symmetric, trachea is midline, no (units unknown) (unknown) (unknown) (no date) (unknown) (unknown) negative, tox screen is positive for opiates and benzos, initial ETOH 308, (units unknown) (unknown) (unknown) (no date) (unknown) (unknown) obtain these injurie s in the events that led him to the hospital today. He is (units unknown) (unknown) (unknown) (no date) (unknown) (unknown) pain, no shortness o f breath, no GI or urinary symptoms.? He is moving all his (units unknown) (unknown) (unknown) (no date) (unknown) (unknown) penicillin G [PENICILLIN G] Allergy Unknown LEFT EAR Verified 07/27/18 10:10 (units unknown) (unknown) (unknown) (no date) (unknown) (unknown) povidone-iodine Allergy Unknown 'SKIN Verified 07/27/18 10:10 (units unknown) (unknown) (unknown) (no date) (unknown) (unknown) propranolol 20 mg tablet 20 mg PO BID 01/14/23 01/14/23 History (units unknown) (unknown) (unknown) (no date) (unknown) (unknown) recall what his medications are he believes he is on insulins but he has no idea (units unknown) (unknown) (unknown) (no date) (unknown) (unknown) repeat 254, AST 87, ALT 88, alk-phos 144, UA negative, lactate negative, lipase (units unknown) (unknown) (unknown) (no date) (unknown) (unknown) repeat 91. COVID negative. EKG sinus rhythm rate 72 QTC 499, without ST or T (units unknown) (unknown) (unknown) (no date) (unknown) (unknown) reviewed with the patient and are negative except otherwise documented. (units unknown) (unknown) (unknown) (no date) (unknown) (unknown) scapula fracture, an d L1/L2 transverse process fracture. Patient admitted for (units unknown) (unknown) (unknown) (no date) (unknown) (unknown) shellfish derived Allergy Unknown 'SKIN FELT Verified 07/27/18 10:10 (units unknown) (unknown) (unknown) (no date) (unknown) (unknown) soap [From BETADINE] Allergy Unknown 'SKIN Verified 07/27/18 10:10 (units unknown) (unknown) (unknown) (no date) (unknown) (unknown) stimulator in back lumbar + Dilaudid pain pump in abdomen found down by EMS (units unknown) (unknown) (unknown) (no date) (unknown) (unknown) stimulator in back lumbar + Dilaudid pain pump in abdomen.? EMS had apparently (units unknown) (unknown) (unknown) (no date) (unknown) (unknown) subcutaneous pen (Humalog KwikPen (units unknown) (unknown) (unknown) (no date) (unknown) (unknown) superficial laceration over his right forehead, small burn right forearm, (units unknown) (unknown) (unknown) (no date) (unknown) (unknown) tamsulosin 0.4 mg capsule 0.4 mg PO DAILY 01/14/23 01/14/23 History (units unknown) (unknown) (unknown) (no date) (unknown) (unknown) this evening on the bathroom floor confused, covered in multiple injuries with (units unknown) (unknown) (unknown) (no date) (unknown) (unknown) to encephalopathy. E D reported patient had an episode of atrial fibrillation (units unknown) (unknown) (unknown) (no date) (unknown) (unknown) to kill himself to the medics and when asked in ED he ' stated he did want to (units unknown) (unknown) (unknown) (no date) (unknown) (unknown) wave changes. Chest x-ray negative, C-spine negative, pelvic x-ray negative, (units unknown) (unknown) (unknown) (no date) (unknown) (unknown) wave changes. (units unknown) (unknown) (unknown) (no date) (unknown) (unknown) wheezes, rhonchi, or rales. (units unknown) (unknown) (unknown) (no date) (unknown) (unknown) when or if he is taken his medication. He did make statements that he wanted (units unknown) (unknown) (unknown) (no date) (unknown) (unknown) which metoprolol was given and quickly resolved. (units unknown) (unknown) Result panel 244 (unknown) (no date) (unknown) (unknown) (no value) (units unknown) (unknown) (unknown) (no date) (unknown) (unknown) (U-100) Insulin) (units unknown) (unknown) (unknown) (no date) (unknown) (unknown) (past 8 hours): (units unknown) (unknown) (unknown) (no date) (unknown) (unknown) -CT of abdomen/pelvi s multiple remote left rib fractures, left scapula fracture, (units unknown) (unknown) (unknown) (no date) (unknown) (unknown) -Chest x-ray negative, C-spine negative, pelvic x-ray negative, head CT negative (units unknown) (unknown) (unknown) (no date) (unknown) (unknown) -PT/OT consult ordered (units unknown) (unknown) (unknown) (no date) (unknown) (unknown) -brain MR ordered fo r tomorrow (units unknown) (unknown) (unknown) (no date) (unknown) (unknown) -found down by EMS (units unknown) (unknown) (unknown) (no date) (unknown) (unknown) -given 60 mg IV dose tonight, will initiate 64mg QID x1 day (units unknown) (unknown) (unknown) (no date) (unknown) (unknown) -initial ETOH 344, repeat 254 we will continue to trend (units unknown) (unknown) (unknown) (no date) (unknown) (unknown) -lives alone, permanently disabled (units unknown) (unknown) (unknown) (no date) (unknown) (unknown) -neuro checks, stric t fall precaution (units unknown) (unknown) (unknown) (no date) (unknown) (unknown) -patient admitted under [facility] protocol (units unknown) (unknown) (unknown) (no date) (unknown) (unknown) -was given phenobarbital loading dose in ED, (units unknown) (unknown) (unknown) (no date) (unknown) (unknown) -will trend ETOH, ordered ammonia, monitor electrolytes (units unknown) (unknown) (unknown) (no date) (unknown) (unknown) [id number] (units unknown) (unknown) (unknown) (no date) (unknown) (unknown) 01/14/23 01/14/23 01/14/23 (units unknown) (unknown) (unknown) (no date) (unknown) (unknown) 01/14/23 10:45 (units unknown) (unknown) (unknown) (no date) (unknown) (unknown) 01/14/23 (units unknown) (unknown) (unknown) (no date) (unknown) (unknown) 1. Found down, fall, with head injury, and encephalopathy, acute, present on (units unknown) (unknown) (unknown) (no date) (unknown) (unknown) 10:45 10:45 10:45 (units unknown) (unknown) (unknown) (no date) (unknown) (unknown) 10:45 11:23 13:48 (units unknown) (unknown) (unknown) (no date) (unknown) (unknown) 14:09 14:09 15:25 (units unknown) (unknown) (unknown) (no date) (unknown) (unknown) 15:00 01/14/23 (units unknown) (unknown) (unknown) (no date) (unknown) (unknown) 15:02 01/14/23 (units unknown) (unknown) (unknown) (no date) (unknown) (unknown) 15:02 (units unknown) (unknown) (unknown) (no date) (unknown) (unknown) 15:30 01/14/23 (units unknown) (unknown) (unknown) (no date) (unknown) (unknown) 16:00 01/14/23 (units unknown) (unknown) (unknown) (no date) (unknown) (unknown) 16:00 (units unknown) (unknown) (unknown) (no date) (unknown) (unknown) 16:30 01/14/23 (units unknown) (unknown) (unknown) (no date) (unknown) (unknown) 17:00 01/14/23 (units unknown) (unknown) (unknown) (no date) (unknown) (unknown) 17:00 (units unknown) (unknown) (unknown) (no date) (unknown) (unknown) 17:30 01/14/23 (units unknown) (unknown) (unknown) (no date) (unknown) (unknown) 17:30 (units unknown) (unknown) (unknown) (no date) (unknown) (unknown) 18:00 01/14/23 (units unknown) (unknown) (unknown) (no date) (unknown) (unknown) 18:15 (units unknown) (unknown) (unknown) (no date) (unknown) (unknown) 18:30 01/14/23 (units unknown) (unknown) (unknown) (no date) (unknown) (unknown) 18:30 (units unknown) (unknown) (unknown) (no date) (unknown) (unknown) 19:00 01/14/23 (units unknown) (unknown) (unknown) (no date) (unknown) (unknown) 19:15 01/14/23 (units unknown) (unknown) (unknown) (no date) (unknown) (unknown) 19:15 (units unknown) (unknown) (unknown) (no date) (unknown) (unknown) 19:20 01/14/23 (units unknown) (unknown) (unknown) (no date) (unknown) (unknown) 19:20 (units unknown) (unknown) (unknown) (no date) (unknown) (unknown) 19:25 01/14/23 (units unknown) (unknown) (unknown) (no date) (unknown) (unknown) 19:30 01/14/23 (units unknown) (unknown) (unknown) (no date) (unknown) (unknown) 19:30 (units unknown) (unknown) (unknown) (no date) (unknown) (unknown) 19:34 01/14/23 (units unknown) (unknown) (unknown) (no date) (unknown) (unknown) 19:35 01/14/23 (units unknown) (unknown) (unknown) (no date) (unknown) (unknown) 19:35 (units unknown) (unknown) (unknown) (no date) (unknown) (unknown) 19:40 01/14/23 (units unknown) (unknown) (unknown) (no date) (unknown) (unknown) 19:40 (units unknown) (unknown) (unknown) (no date) (unknown) (unknown) 19:45 01/14/23 (units unknown) (unknown) (unknown) (no date) (unknown) (unknown) 19:50 01/14/23 (units unknown) (unknown) (unknown) (no date) (unknown) (unknown) 19:50 (units unknown) (unknown) (unknown) (no date) (unknown) (unknown) 19:55 01/14/23 (units unknown) (unknown) (unknown) (no date) (unknown) (unknown) 19:55 (units unknown) (unknown) (unknown) (no date) (unknown) (unknown) 2. Alcohol abuse, acute on chronic, alcohol intoxication, acute, present on (units unknown) (unknown) (unknown) (no date) (unknown) (unknown) 20:00 01/14/23 (units unknown) (unknown) (unknown) (no date) (unknown) (unknown) 20:05 01/14/23 (units unknown) (unknown) (unknown) (no date) (unknown) (unknown) 20:05 (units unknown) (unknown) (unknown) (no date) (unknown) (unknown) 20:30 01/14/23 (units unknown) (unknown) (unknown) (no date) (unknown) (unknown) 20:30 (units unknown) (unknown) (unknown) (no date) (unknown) (unknown) 21:00 01/14/23 (units unknown) (unknown) (unknown) (no date) (unknown) (unknown) 21:30 01/14/23 (units unknown) (unknown) (unknown) (no date) (unknown) (unknown) 21:30 (units unknown) (unknown) (unknown) (no date) (unknown) (unknown) 22:00 01/14/23 (units unknown) (unknown) (unknown) (no date) (unknown) (unknown) 22:25 (units unknown) (unknown) (unknown) (no date) (unknown) (unknown) AGE 12YR (units unknown) (unknown) (unknown) (no date) (unknown) (unknown) ALT 88 H (units unknown) (unknown) (unknown) (no date) (unknown) (unknown) ALT (units unknown) (unknown) (unknown) (no date) (unknown) (unknown) APTT 34 (units unknown) (unknown) (unknown) (no date) (unknown) (unknown) APTT (units unknown) (unknown) (unknown) (no date) (unknown) (unknown) AST 87 H (units unknown) (unknown) (unknown) (no date) (unknown) (unknown) AST (units unknown) (unknown) (unknown) (no date) (unknown) (unknown) Abdomen: Soft nontender, negative for organomegaly, or masses. Bowel sounds (units unknown) (unknown) (unknown) (no date) (unknown) (unknown) Age/Sex: 53 / M (units unknown) (unknown) (unknown) (no date) (unknown) (unknown) Albumin 4.0 (units unknown) (unknown) (unknown) (no date) (unknown) (unknown) Albumin (units unknown) (unknown) (unknown) (no date) (unknown) (unknown) Albumin/Globulin Ratio 1.3 (units unknown) (unknown) (unknown) (no date) (unknown) (unknown) Albumin/Globulin Ratio (units unknown) (unknown) (unknown) (no date) (unknown) (unknown) Alcohol intoxication (units unknown) (unknown) (unknown) (no date) (unknown) (unknown) Alkaline Phosphatase 146 H (units unknown) (unknown) (unknown) (no date) (unknown) (unknown) Alkaline Phosphatase (units unknown) (unknown) (unknown) (no date) (unknown) (unknown) Allergies (units unknown) (unknown) (unknown) (no date) (unknown) (unknown) Allergy/AdvReac Type Severity Reaction Status Date / Time (units unknown) (unknown) (unknown) (no date) (unknown) (unknown) Antibody Screen Negative (units unknown) (unknown) (unknown) (no date) (unknown) (unknown) Antibody Screen (units unknown) (unknown) (unknown) (no date) (unknown) (unknown) Assessment + Plan narrative: (units unknown) (unknown) (unknown) (no date) (unknown) (unknown) Assessment + Plan (units unknown) (unknown) (unknown) (no date) (unknown) (unknown) BPH (benign prostati c hyperplasia) (units unknown) (unknown) (unknown) (no date) (unknown) (unknown) BUN 8 L (units unknown) (unknown) (unknown) (no date) (unknown) (unknown) BUN (units unknown) (unknown) (unknown) (no date) (unknown) (unknown) BUN/Creatinine Ratio 19.0 (units unknown) (unknown) (unknown) (no date) (unknown) (unknown) BUN/Creatinine Ratio (units unknown) (unknown) (unknown) (no date) (unknown) (unknown) BURNING' (units unknown) (unknown) (unknown) (no date) (unknown) (unknown) Baso # (Auto) 100 (units unknown) (unknown) (unknown) (no date) (unknown) (unknown) Baso # (Auto) (units unknown) (unknown) (unknown) (no date) (unknown) (unknown) Baso % (Auto) 1.4 (units unknown) (unknown) (unknown) (no date) (unknown) (unknown) Baso % (Auto) (units unknown) (unknown) (unknown) (no date) (unknown) (unknown) Blood Pressure 106/5 2 L 113/56 L (units unknown) (unknown) (unknown) (no date) (unknown) (unknown) Blood Pressure 121/73 (units unknown) (unknown) (unknown) (no date) (unknown) (unknown) Blood Pressure 129/8 0 138/76 (units unknown) (unknown) (unknown) (no date) (unknown) (unknown) Blood Pressure 130/8 2 162/103 H (units unknown) (unknown) (unknown) (no date) (unknown) (unknown) Blood Pressure 132/9 6 H 169/93 H (units unknown) (unknown) (unknown) (no date) (unknown) (unknown) Blood Pressure 137/72 (units unknown) (unknown) (unknown) (no date) (unknown) (unknown) Blood Pressure 137/85 (units unknown) (unknown) (unknown) (no date) (unknown) (unknown) Blood Pressure 138/102 H 130/92 H (units unknown) (unknown) (unknown) (no date) (unknown) (unknown) Blood Pressure 142/8 9 H (units unknown) (unknown) (unknown) (no date) (unknown) (unknown) Blood Pressure 143/9 4 H 141/93 H (units unknown) (unknown) (unknown) (no date) (unknown) (unknown) Blood Pressure 148/8 2 H (units unknown) (unknown) (unknown) (no date) (unknown) (unknown) Blood Pressure 155/9 5 H 124/84 (units unknown) (unknown) (unknown) (no date) (unknown) (unknown) Blood Pressure 158/9 5 H (units unknown) (unknown) (unknown) (no date) (unknown) (unknown) Blood Pressure 172/8 8 H (units unknown) (unknown) (unknown) (no date) (unknown) (unknown) Blood Pressure 175/108 H (units unknown) (unknown) (unknown) (no date) (unknown) (unknown) Blood Pressure (units unknown) (unknown) (unknown) (no date) (unknown) (unknown) Blood Type O Positive (units unknown) (unknown) (unknown) (no date) (unknown) (unknown) Blood Type (units unknown) (unknown) (unknown) (no date) (unknown) (unknown) Calcium 8.5 (units unknown) (unknown) (unknown) (no date) (unknown) (unknown) Calcium (units unknown) (unknown) (unknown) (no date) (unknown) (unknown) Carbon Dioxide 30 (units unknown) (unknown) (unknown) (no date) (unknown) (unknown) Carbon Dioxide (units unknown) (unknown) (unknown) (no date) (unknown) (unknown) Cardio: regular rate and rhythm without murmur, rubs, or gallops, no carotid (units unknown) (unknown) (unknown) (no date) (unknown) (unknown) Chest: Breathing no nasal flaring, retractions, or tachypneic labored (units unknown) (unknown) (unknown) (no date) (unknown) (unknown) Chief complaint: Trauma (units unknown) (unknown) (unknown) (no date) (unknown) (unknown) Chloride 100 (units unknown) (unknown) (unknown) (no date) (unknown) (unknown) Chloride (units unknown) (unknown) (unknown) (no date) (unknown) (unknown) Chronic low back pain (units unknown) (unknown) (unknown) (no date) (unknown) (unknown) Comment: (units unknown) (unknown) (unknown) (no date) (unknown) (unknown) Congestive heart failure (units unknown) (unknown) (unknown) (no date) (unknown) (unknown) Creatinine 0.42 L (units unknown) (unknown) (unknown) (no date) (unknown) (unknown) Creatinine (units unknown) (unknown) (unknown) (no date) (unknown) (unknown) : 1970 Acct:[id number] (units unknown) (unknown) (unknown) (no date) (unknown) (unknown) Date Patient Seen: 01/14/23 (units unknown) (unknown) (unknown) (no date) (unknown) (unknown) Date of Service: 01/14/23 (units unknown) (unknown) (unknown) (no date) (unknown) (unknown) Drinks a 5th of vodk a daily (units unknown) (unknown) (unknown) (no date) (unknown) (unknown) ED made multiple attempts to transfer patient for detox, but was refused due to (units unknown) (unknown) (unknown) (no date) (unknown) (unknown) Eos # (Auto) 100 (units unknown) (unknown) (unknown) (no date) (unknown) (unknown) Eos # (Auto) (units unknown) (unknown) (unknown) (no date) (unknown) (unknown) Eos % (Auto) 2.2 (units unknown) (unknown) (unknown) (no date) (unknown) (unknown) Eos % (Auto) (units unknown) (unknown) (unknown) (no date) (unknown) (unknown) Essential hypertension (units unknown) (unknown) (unknown) (no date) (unknown) (unknown) Estimated GFR > 60 (units unknown) (unknown) (unknown) (no date) (unknown) (unknown) Estimated GFR (units unknown) (unknown) (unknown) (no date) (unknown) (unknown) Ethyl Alcohol 308 H (units unknown) (unknown) (unknown) (no date) (unknown) (unknown) Ethyl Alcohol 91 H (units unknown) (unknown) (unknown) (no date) (unknown) (unknown) Ethyl Alcohol (units unknown) (unknown) (unknown) (no date) (unknown) (unknown) Exam Narrative: (units unknown) (unknown) (unknown) (no date) (unknown) (unknown) Exam (units unknown) (unknown) (unknown) (no date) (unknown) (unknown) FEELS LIKE (units unknown) (unknown) (unknown) (no date) (unknown) (unknown) Family History (Updated 01/15/23 @ 02:24 by Genesis Dunn, [facility]) (units unknown) (unknown) (unknown) (no date) (unknown) (unknown) Father Diabetes mellitus (units unknown) (unknown) (unknown) (no date) (unknown) (unknown) General: Patient is disheveled, appears chronically ill and unwell, with (units unknown) (unknown) (unknown) (no date) (unknown) (unknown) Globulin 3.2 (units unknown) (unknown) (unknown) (no date) (unknown) (unknown) Globulin (units unknown) (unknown) (unknown) (no date) (unknown) (unknown) Glucose 254 H (units unknown) (unknown) (unknown) (no date) (unknown) (unknown) Glucose (units unknown) (unknown) (unknown) (no date) (unknown) (unknown) HEARING (units unknown) (unknown) (unknown) (no date) (unknown) (unknown) HEENT: Normocephalic , extraocular muscles intact, oral pharynx is clear and (units unknown) (unknown) (unknown) (no date) (unknown) (unknown) HLD, BPH, insulin-dependent diabetes and chronic low back pain tx with InterStim (units unknown) (unknown) (unknown) (no date) (unknown) (unknown) Hct 36.9 L (units unknown) (unknown) (unknown) (no date) (unknown) (unknown) Hct (units unknown) (unknown) (unknown) (no date) (unknown) (unknown) Hgb 12.3 L (units unknown) (unknown) (unknown) (no date) (unknown) (unknown) Hgb (units unknown) (unknown) (unknown) (no date) (unknown) (unknown) History + Physical Report (units unknown) (unknown) (unknown) (no date) (unknown) (unknown) History of Present Illness (units unknown) (unknown) (unknown) (no date) (unknown) (unknown) History of shoulder surgery (units unknown) (unknown) (unknown) (no date) (unknown) (unknown) History (units unknown) (unknown) (unknown) (no date) (unknown) (unknown) Home Medications and Allergies (units unknown) (unknown) (unknown) (no date) (unknown) (unknown) Home Medications (units unknown) (unknown) (unknown) (no date) (unknown) (unknown) Hyperlipidemia due t o type 1 diabetes mellitus (units unknown) (unknown) (unknown) (no date) (unknown) (unknown) INR 1.0 (units unknown) (unknown) (unknown) (no date) (unknown) (unknown) INR (units unknown) (unknown) (unknown) (no date) (unknown) (unknown) [address] [address] (units unknown) (unknown) (unknown) (no date) (unknown) (unknown) JVD (units unknown) (unknown) (unknown) (no date) (unknown) (unknown) LOSS AT (units unknown) (unknown) (unknown) (no date) (unknown) (unknown) Laboratory Results - last 24 hr (units unknown) (unknown) (unknown) (no date) (unknown) (unknown) Labs (units unknown) (unknown) (unknown) (no date) (unknown) (unknown) Labs: (units unknown) (unknown) (unknown) (no date) (unknown) (unknown) Lactate 2.1 1.9 (units unknown) (unknown) (unknown) (no date) (unknown) (unknown) Lactate (units unknown) (unknown) (unknown) (no date) (unknown) (unknown) Lipase 109 (units unknown) (unknown) (unknown) (no date) (unknown) (unknown) Lipase (units unknown) (unknown) (unknown) (no date) (unknown) (unknown) Lungs: Auscultation of all lung lopez are clear without adventitious sounds, (units unknown) (unknown) (unknown) (no date) (unknown) (unknown) Lymph # (Auto) 1700 (units unknown) (unknown) (unknown) (no date) (unknown) (unknown) Lymph # (Auto) (units unknown) (unknown) (unknown) (no date) (unknown) (unknown) Lymph % (Auto) 39.1 (units unknown) (unknown) (unknown) (no date) (unknown) (unknown) Lymph % (Auto) (units unknown) (unknown) (unknown) (no date) (unknown) (unknown) MCH 32.5 (units unknown) (unknown) (unknown) (no date) (unknown) (unknown) MCH (units unknown) (unknown) (unknown) (no date) (unknown) (unknown) MCHC 33.5 (units unknown) (unknown) (unknown) (no date) (unknown) (unknown) MCHC (units unknown) (unknown) (unknown) (no date) (unknown) (unknown) MCV 97.1 (units unknown) (unknown) (unknown) (no date) (unknown) (unknown) MCV (units unknown) (unknown) (unknown) (no date) (unknown) (unknown) Medical History (units unknown) (unknown) (unknown) (no date) (unknown) (unknown) Medication Instructions Recorded Confirmed Type (units unknown) (unknown) (unknown) (no date) (unknown) (unknown) Meds (units unknown) (unknown) (unknown) (no date) (unknown) (unknown) Sj Romo is a 53-year-old male with known history of alcohol abuse, HTN, (units unknown) (unknown) (unknown) (no date) (unknown) (unknown) Micro UA Comment Microscopic normal (units unknown) (unknown) (unknown) (no date) (unknown) (unknown) Micro UA Comment (units unknown) (unknown) (unknown) (no date) (unknown) (unknown) [place] # (Auto) 600 (units unknown) (unknown) (unknown) (no date) (unknown) (unknown) [place] # (Auto) (units unknown) (unknown) (unknown) (no date) (unknown) (unknown) [place] % (Auto) 14.9 H (units unknown) (unknown) (unknown) (no date) (unknown) (unknown) [place] % (Auto) (units unknown) (unknown) (unknown) (no date) (unknown) (unknown) Mother Diabetes mellitus (units unknown) (unknown) (unknown) (no date) (unknown) (unknown) Multiple falls (units unknown) (unknown) (unknown) (no date) (unknown) (unknown) Musculoskeletal: Muscle strength and tone appear wasting, no deformity, (units unknown) (unknown) (unknown) (no date) (unknown) (unknown) Narrative (units unknown) (unknown) (unknown) (no date) (unknown) (unknown) Narrative: (units unknown) (unknown) (unknown) (no date) (unknown) (unknown) Neuro: Alert to self , confused, moves all extremities, sensation to touch (units unknown) (unknown) (unknown) (no date) (unknown) (unknown) Neut # (Auto) 1800 (units unknown) (unknown) (unknown) (no date) (unknown) (unknown) Neut # (Auto) (units unknown) (unknown) (unknown) (no date) (unknown) (unknown) Neut % (Auto) 42.4 L (units unknown) (unknown) (unknown) (no date) (unknown) (unknown) Neut % (Auto) (units unknown) (unknown) (unknown) (no date) (unknown) (unknown) Objective (units unknown) (unknown) (unknown) (no date) (unknown) (unknown) Oxygen Delivery Method Room Air (units unknown) (unknown) (unknown) (no date) (unknown) (unknown) Oxygen Delivery Method (units unknown) (unknown) (unknown) (no date) (unknown) (unknown) PFSH (units unknown) (unknown) (unknown) (no date) (unknown) (unknown) PT 11.2 (units unknown) (unknown) (unknown) (no date) (unknown) (unknown) PT (units unknown) (unknown) (unknown) (no date) (unknown) (unknown) Patient: Sj Romo MR#: [id number] (units unknown) (unknown) (unknown) (no date) (unknown) (unknown) Plt Count 296 (units unknown) (unknown) (unknown) (no date) (unknown) (unknown) Plt Count (units unknown) (unknown) (unknown) (no date) (unknown) (unknown) Potassium 3.9 (units unknown) (unknown) (unknown) (no date) (unknown) (unknown) Potassium (units unknown) (unknown) (unknown) (no date) (unknown) (unknown) Provider: Genesis Dunn-BC (units unknown) (unknown) (unknown) (no date) (unknown) (unknown) Psych: Patient has a poor kept appearance, calm inappropriate affect-does not (units unknown) (unknown) (unknown) (no date) (unknown) (unknown) Pulse Oximetry 91 96 (units unknown) (unknown) (unknown) (no date) (unknown) (unknown) Pulse Oximetry 92 (units unknown) (unknown) (unknown) (no date) (unknown) (unknown) Pulse Oximetry 94 94 (units unknown) (unknown) (unknown) (no date) (unknown) (unknown) Pulse Oximetry 94 95 (units unknown) (unknown) (unknown) (no date) (unknown) (unknown) Pulse Oximetry 94 96 (units unknown) (unknown) (unknown) (no date) (unknown) (unknown) Pulse Oximetry 94 (units unknown) (unknown) (unknown) (no date) (unknown) (unknown) Pulse Oximetry 95 95 100 (units unknown) (unknown) (unknown) (no date) (unknown) (unknown) Pulse Oximetry 95 96 (units unknown) (unknown) (unknown) (no date) (unknown) (unknown) Pulse Oximetry 95 (units unknown) (unknown) (unknown) (no date) (unknown) (unknown) Pulse Oximetry 96 94 (units unknown) (unknown) (unknown) (no date) (unknown) (unknown) Pulse Oximetry 96 96 (units unknown) (unknown) (unknown) (no date) (unknown) (unknown) Pulse Oximetry 96 (units unknown) (unknown) (unknown) (no date) (unknown) (unknown) Pulse Rate 156 H (units unknown) (unknown) (unknown) (no date) (unknown) (unknown) Pulse Rate 69 (units unknown) (unknown) (unknown) (no date) (unknown) (unknown) Pulse Rate 71 (units unknown) (unknown) (unknown) (no date) (unknown) (unknown) Pulse Rate 74 101 H (units unknown) (unknown) (unknown) (no date) (unknown) (unknown) Pulse Rate 74 (units unknown) (unknown) (unknown) (no date) (unknown) (unknown) Pulse Rate 75 (units unknown) (unknown) (unknown) (no date) (unknown) (unknown) Pulse Rate 77 (units unknown) (unknown) (unknown) (no date) (unknown) (unknown) Pulse Rate 78 60 57 L (units unknown) (unknown) (unknown) (no date) (unknown) (unknown) Pulse Rate 78 74 (units unknown) (unknown) (unknown) (no date) (unknown) (unknown) Pulse Rate 81 77 (units unknown) (unknown) (unknown) (no date) (unknown) (unknown) Pulse Rate 83 80 (units unknown) (unknown) (unknown) (no date) (unknown) (unknown) Pulse Rate 85 78 168 H (units unknown) (unknown) (unknown) (no date) (unknown) (unknown) Pulse Rate 89 94 H (units unknown) (unknown) (unknown) (no date) (unknown) (unknown) Pulse Rate 93 H 78 (units unknown) (unknown) (unknown) (no date) (unknown) (unknown) Pulse Rate 97 H 96 H (units unknown) (unknown) (unknown) (no date) (unknown) (unknown) RBC 3.80 L (units unknown) (unknown) (unknown) (no date) (unknown) (unknown) RBC (units unknown) (unknown) (unknown) (no date) (unknown) (unknown) RDW 13.2 (units unknown) (unknown) (unknown) (no date) (unknown) (unknown) RDW (units unknown) (unknown) (unknown) (no date) (unknown) (unknown) Respiratory Rate 10 L (units unknown) (unknown) (unknown) (no date) (unknown) (unknown) Respiratory Rate 11 L (units unknown) (unknown) (unknown) (no date) (unknown) (unknown) Respiratory Rate 13 13 (units unknown) (unknown) (unknown) (no date) (unknown) (unknown) Respiratory Rate 13 (units unknown) (unknown) (unknown) (no date) (unknown) (unknown) Respiratory Rate 14 14 (units unknown) (unknown) (unknown) (no date) (unknown) (unknown) Respiratory Rate 14 23 (units unknown) (unknown) (unknown) (no date) (unknown) (unknown) Respiratory Rate 14 (units unknown) (unknown) (unknown) (no date) (unknown) (unknown) Respiratory Rate 15 (units unknown) (unknown) (unknown) (no date) (unknown) (unknown) Respiratory Rate 16 (units unknown) (unknown) (unknown) (no date) (unknown) (unknown) Respiratory Rate 18 0 L 17 (units unknown) (unknown) (unknown) (no date) (unknown) (unknown) Respiratory Rate 19 15 (units unknown) (unknown) (unknown) (no date) (unknown) (unknown) Respiratory Rate 19 18 20 (units unknown) (unknown) (unknown) (no date) (unknown) (unknown) Respiratory Rate 24 17 (units unknown) (unknown) (unknown) (no date) (unknown) (unknown) Respiratory Rate (units unknown) (unknown) (unknown) (no date) (unknown) (unknown) Review of Systems (units unknown) (unknown) (unknown) (no date) (unknown) (unknown) SARS-CoV-2 (PCR) Negative (units unknown) (unknown) (unknown) (no date) (unknown) (unknown) SARS-CoV-2 (PCR) (units unknown) (unknown) (unknown) (no date) (unknown) (unknown) Signed By: (units unknown) (unknown) (unknown) (no date) (unknown) (unknown) Skin: scabbed superficial laceration over his right forehead, small burn right (units unknown) (unknown) (unknown) (no date) (unknown) (unknown) Smoking Status: Aishwaryae r smoker (units unknown) (unknown) (unknown) (no date) (unknown) (unknown) Social History (Updated 01/15/23 @ 02:23 by SOMMER Chairez) (units unknown) (unknown) (unknown) (no date) (unknown) (unknown) Sodium 140 (units unknown) (unknown) (unknown) (no date) (unknown) (unknown) Sodium (units unknown) (unknown) (unknown) (no date) (unknown) (unknown) Solostar U-100 Insulin) (units unknown) (unknown) (unknown) (no date) (unknown) (unknown) Surgical History (units unknown) (unknown) (unknown) (no date) (unknown) (unknown) Time Patient Seen: 22:42 (units unknown) (unknown) (unknown) (no date) (unknown) (unknown) Total Bilirubin 0.4 (units unknown) (unknown) (unknown) (no date) (unknown) (unknown) Total Bilirubin (units unknown) (unknown) (unknown) (no date) (unknown) (unknown) Total Protein 7.2 (units unknown) (unknown) (unknown) (no date) (unknown) (unknown) Total Protein (units unknown) (unknown) (unknown) (no date) (unknown) (unknown) U Benzodiazepines Scrn Positive H (units unknown) (unknown) (unknown) (no date) (unknown) (unknown) U Benzodiazepines Scrn (units unknown) (unknown) (unknown) (no date) (unknown) (unknown) U Marijuana (THC) Screen Negative (units unknown) (unknown) (unknown) (no date) (unknown) (unknown) U Marijuana (THC) Screen (units unknown) (unknown) (unknown) (no date) (unknown) (unknown) U Methamphetamines Scrn Negative (units unknown) (unknown) (unknown) (no date) (unknown) (unknown) U Methamphetamines Scrn (units unknown) (unknown) (unknown) (no date) (unknown) (unknown) U Opiates 300ng/mL cut Positive H (units unknown) (unknown) (unknown) (no date) (unknown) (unknown) U Opiates 300ng/mL cut (units unknown) (unknown) (unknown) (no date) (unknown) (unknown) U Tricyclic Antidepress Negative (units unknown) (unknown) (unknown) (no date) (unknown) (unknown) U Tricyclic Antidepress (units unknown) (unknown) (unknown) (no date) (unknown) (unknown) Unable to obtain accurate ROS due to encephalopathy-All 12 point systems (units unknown) (unknown) (unknown) (no date) (unknown) (unknown) Ur Amphetamines Screen Negative (units unknown) (unknown) (unknown) (no date) (unknown) (unknown) Ur Amphetamines Screen (units unknown) (unknown) (unknown) (no date) (unknown) (unknown) Ur Barbiturates Screen Negative (units unknown) (unknown) (unknown) (no date) (unknown) (unknown) Ur Barbiturates Screen (units unknown) (unknown) (unknown) (no date) (unknown) (unknown) Ur Culture Indicated ? Cult not indicated (units unknown) (unknown) (unknown) (no date) (unknown) (unknown) Ur Culture Indicated? (units unknown) (unknown) (unknown) (no date) (unknown) (unknown) Ur Leukocyte Esteras e Negative (units unknown) (unknown) (unknown) (no date) (unknown) (unknown) Ur Leukocyte Esterase (units unknown) (unknown) (unknown) (no date) (unknown) (unknown) Ur MDMA Scrn (Ecstasy) Negative (units unknown) (unknown) (unknown) (no date) (unknown) (unknown) Ur MDMA Scrn (Ecstasy) (units unknown) (unknown) (unknown) (no date) (unknown) (unknown) Ur Oxycodone Screen Negative (units unknown) (unknown) (unknown) (no date) (unknown) (unknown) Ur Oxycodone Screen (units unknown) (unknown) (unknown) (no date) (unknown) (unknown) Ur Phencyclidine Scr n Negative (units unknown) (unknown) (unknown) (no date) (unknown) (unknown) Ur Phencyclidine Scrn (units unknown) (unknown) (unknown) (no date) (unknown) (unknown) Ur Specific [place] 1.010 (units unknown) (unknown) (unknown) (no date) (unknown) (unknown) Ur Specific [place] (units unknown) (unknown) (unknown) (no date) (unknown) (unknown) Urine Appearance Clear (units unknown) (unknown) (unknown) (no date) (unknown) (unknown) Urine Appearance (units unknown) (unknown) (unknown) (no date) (unknown) (unknown) Urine Bacteria None seen (units unknown) (unknown) (unknown) (no date) (unknown) (unknown) Urine Bacteria (units unknown) (unknown) (unknown) (no date) (unknown) (unknown) Urine Bilirubin Negative (units unknown) (unknown) (unknown) (no date) (unknown) (unknown) Urine Bilirubin (units unknown) (unknown) (unknown) (no date) (unknown) (unknown) Urine Cocaine Screen Negative (units unknown) (unknown) (unknown) (no date) (unknown) (unknown) Urine Cocaine Screen (units unknown) (unknown) (unknown) (no date) (unknown) (unknown) Urine Color Yellow (units unknown) (unknown) (unknown) (no date) (unknown) (unknown) Urine Color (units unknown) (unknown) (unknown) (no date) (unknown) (unknown) Urine Glucose (UA) 2 + H (units unknown) (unknown) (unknown) (no date) (unknown) (unknown) Urine Glucose (UA) (units unknown) (unknown) (unknown) (no date) (unknown) (unknown) Urine Ketones Negative (units unknown) (unknown) (unknown) (no date) (unknown) (unknown) Urine Ketones (units unknown) (unknown) (unknown) (no date) (unknown) (unknown) Urine Methadone Screen Negative (units unknown) (unknown) (unknown) (no date) (unknown) (unknown) Urine Methadone Screen (units unknown) (unknown) (unknown) (no date) (unknown) (unknown) Urine Nitrate Negative (units unknown) (unknown) (unknown) (no date) (unknown) (unknown) Urine Nitrate (units unknown) (unknown) (unknown) (no date) (unknown) (unknown) Urine Occult Blood Negative (units unknown) (unknown) (unknown) (no date) (unknown) (unknown) Urine Occult Blood (units unknown) (unknown) (unknown) (no date) (unknown) (unknown) Urine Protein Negative (units unknown) (unknown) (unknown) (no date) (unknown) (unknown) Urine Protein (units unknown) (unknown) (unknown) (no date) (unknown) (unknown) Urine RBC None seen (units unknown) (unknown) (unknown) (no date) (unknown) (unknown) Urine RBC (units unknown) (unknown) (unknown) (no date) (unknown) (unknown) Urine Urobilinogen 1.0 (units unknown) (unknown) (unknown) (no date) (unknown) (unknown) Urine Urobilinogen (units unknown) (unknown) (unknown) (no date) (unknown) (unknown) Urine WBC None seen (units unknown) (unknown) (unknown) (no date) (unknown) (unknown) Urine WBC (units unknown) (unknown) (unknown) (no date) (unknown) (unknown) Urine pH 6.5 (units unknown) (unknown) (unknown) (no date) (unknown) (unknown) Urine pH (units unknown) (unknown) (unknown) (no date) (unknown) (unknown) Vital Signs (units unknown) (unknown) (unknown) (no date) (unknown) (unknown) WAS (units unknown) (unknown) (unknown) (no date) (unknown) (unknown) WBC 4.3 L (units unknown) (unknown) (unknown) (no date) (unknown) (unknown) WBC (units unknown) (unknown) (unknown) (no date) (unknown) (unknown) When asked on admit regarding code status patient requested to be a full code, (units unknown) (unknown) (unknown) (no date) (unknown) (unknown) [Embedded Image Not Available] (units unknown) (unknown) (unknown) (no date) (unknown) (unknown) [From BETADINE] FEEL S LIKE (units unknown) (unknown) (unknown) (no date) (unknown) (unknown) [SHELLFISH DERIVED] LIKE IT (units unknown) (unknown) (unknown) (no date) (unknown) (unknown) acute distress at this time. (units unknown) (unknown) (unknown) (no date) (unknown) (unknown) adenopathy, no thyroid enlargement, nontender, no masses palpated. Negative for (units unknown) (unknown) (unknown) (no date) (unknown) (unknown) admission (units unknown) (unknown) (unknown) (no date) (unknown) (unknown) admit patient is unable to state where he is unable to recall how or when he (units unknown) (unknown) (unknown) (no date) (unknown) (unknown) alcohol intake: current (units unknown) (unknown) (unknown) (no date) (unknown) (unknown) and L1/L2 transverse process fracture. (units unknown) (unknown) (unknown) (no date) (unknown) (unknown) and denied suicide ideation. patient is hemodynamically stable pleasant (units unknown) (unknown) (unknown) (no date) (unknown) (unknown) anterior lower extremity, significant deep bruising to lower coccyx area. (units unknown) (unknown) (unknown) (no date) (unknown) (unknown) appear to appreciate severity of injuries and state of health, mental status (units unknown) (unknown) (unknown) (no date) (unknown) (unknown) are present in all 4 quadrants without guarding or rebound, no CVA tenderness. (units unknown) (unknown) (unknown) (no date) (unknown) (unknown) atorvastatin 40 mg tablet 40 mg PO BEDTIME 01/14/23 01/14/23 History (units unknown) (unknown) (unknown) (no date) (unknown) (unknown) attempts to transfer patient for detox, but was refused due to hyperglycemia, (units unknown) (unknown) (unknown) (no date) (unknown) (unknown) attitude thought context and judgment are in appropriate for age. (units unknown) (unknown) (unknown) (no date) (unknown) (unknown) been called to the patient's home several times over the last few days, he was (units unknown) (unknown) (unknown) (no date) (unknown) (unknown) blood and broken glass around him. Patient was seen and evaluated by [facility] in the (units unknown) (unknown) (unknown) (no date) (unknown) (unknown) bruising left abdomen, upper abd, chest, scabbed abrasion to left anterior lower (units unknown) (unknown) (unknown) (no date) (unknown) (unknown) bruit, no cardiac pulsations present. (units unknown) (unknown) (unknown) (no date) (unknown) (unknown) converses easily but is confused. WBC 4.3, H+H 12.3/36.9, initial glucose 344, (units unknown) (unknown) (unknown) (no date) (unknown) (unknown) covered in a variety of multiple injuries in varying degrees healing, a scabbed (units unknown) (unknown) (unknown) (no date) (unknown) (unknown) crepitus, effusions, cyanosis, clubbing or edema present. Full range of motion (units unknown) (unknown) (unknown) (no date) (unknown) (unknown) dextroamphetamine-am p hetamine 20 20 mg PO BID 01/14/23 01/14/23 History (units unknown) (unknown) (unknown) (no date) (unknown) (unknown) did not answer.? Patient was seen and evaluated by [facility] [facility]ER in the ED made multiple (units unknown) (unknown) (unknown) (no date) (unknown) (unknown) diffuse multiple injuries in various stages of healing from head to toe, in no (units unknown) (unknown) (unknown) (no date) (unknown) (unknown) elevated QTC on EKG, and encephalopathy. Unable to obtain accurate HPI, ROS due (units unknown) (unknown) (unknown) (no date) (unknown) (unknown) extremities well.? I s conversant but confused.? Patient states he drinks at (units unknown) (unknown) (unknown) (no date) (unknown) (unknown) extremity, significant deep bruising to lower coccyx area. Patient denies (units unknown) (unknown) (unknown) (no date) (unknown) (unknown) fall, head injury, atrial fibrillation, encephalopathy, ETOH abuse/intoxication, (units unknown) (unknown) (unknown) (no date) (unknown) (unknown) fall, head injury, encephalopathy, ETOH abuse/intoxication, hyperglycemia. (units unknown) (unknown) (unknown) (no date) (unknown) (unknown) forearm, bruising left abdomen + upper abd, + chest, scabbed abrasion to left (units unknown) (unknown) (unknown) (no date) (unknown) (unknown) found down this evening on the bathroom floor with broken glass perhaps broken (units unknown) (unknown) (unknown) (no date) (unknown) (unknown) furosemide 20 mg tablet 20 mg PO DAILY 01/14/23 01/14/23 History (units unknown) (unknown) (unknown) (no date) (unknown) (unknown) head CT negative, CT of abdomen/pelvis multiple remote left rib fractures, left (units unknown) (unknown) (unknown) (no date) (unknown) (unknown) household members: none (units unknown) (unknown) (unknown) (no date) (unknown) (unknown) hyperglycemia, elevated QTC on EKG, and encephalopathy. Patient admitted for (units unknown) (unknown) (unknown) (no date) (unknown) (unknown) hyperglycemia. (units unknown) (unknown) (unknown) (no date) (unknown) (unknown) insulin glargine 100 unit/mL (3 20 unit SUBCUT BEDTIME 01/14/23 01/14/23 History (units unknown) (unknown) (unknown) (no date) (unknown) (unknown) insulin lispro 100 unit/mL See Rx Instructions .Route .COMPLEX 01/14/23 01/14/23 (units unknown) (unknown) (unknown) (no date) (unknown) (unknown) intact radial and pedal pulses are normal. (units unknown) (unknown) (unknown) (no date) (unknown) (unknown) intact, no gross deficits noted of cranial nerves. (units unknown) (unknown) (unknown) (no date) (unknown) (unknown) kill himself when asked why he did not answer'? When asked if he has a plan he (units unknown) (unknown) (unknown) (no date) (unknown) (unknown) least a 5th of Vodka daily, denies tobacco or illicit.? Patient is unable to (units unknown) (unknown) (unknown) (no date) (unknown) (unknown) losartan 100 mg tablet 100 mg PO DAILY 01/14/23 01/14/23 History (units unknown) (unknown) (unknown) (no date) (unknown) (unknown) mL) subcutaneous pen (Lantus (units unknown) (unknown) (unknown) (no date) (unknown) (unknown) mg tablet (units unknown) (unknown) (unknown) (no date) (unknown) (unknown) mirror and blood at the scene. Patient is confused, but redirectable. During (units unknown) (unknown) (unknown) (no date) (unknown) (unknown) mucous membranes are dry. Neck is supple and symmetric, trachea is midline, no (units unknown) (unknown) (unknown) (no date) (unknown) (unknown) negative, tox screen is positive for opiates and benzos, initial ETOH 308, (units unknown) (unknown) (unknown) (no date) (unknown) (unknown) obtain these injurie s in the events that led him to the hospital today. He is (units unknown) (unknown) (unknown) (no date) (unknown) (unknown) pain, no shortness o f breath, no GI or urinary symptoms.? He is moving all his (units unknown) (unknown) (unknown) (no date) (unknown) (unknown) penicillin G [PENICILLIN G] Allergy Unknown LEFT EAR Verified 07/27/18 10:10 (units unknown) (unknown) (unknown) (no date) (unknown) (unknown) povidone-iodine Allergy Unknown 'SKIN Verified 07/27/18 10:10 (units unknown) (unknown) (unknown) (no date) (unknown) (unknown) propranolol 20 mg tablet 20 mg PO BID 01/14/23 01/14/23 History (units unknown) (unknown) (unknown) (no date) (unknown) (unknown) recall what his medications are he believes he is on insulins but he has no idea (units unknown) (unknown) (unknown) (no date) (unknown) (unknown) repeat 254, AST 87, ALT 88, alk-phos 144, UA negative, lactate negative, lipase (units unknown) (unknown) (unknown) (no date) (unknown) (unknown) repeat 91. COVID negative. EKG sinus rhythm rate 72 QTC 499, without ST or T (units unknown) (unknown) (unknown) (no date) (unknown) (unknown) reviewed with the patient and are negative except otherwise documented. (units unknown) (unknown) (unknown) (no date) (unknown) (unknown) scapula fracture, an d L1/L2 transverse process fracture. Patient admitted for (units unknown) (unknown) (unknown) (no date) (unknown) (unknown) shellfish derived Allergy Unknown 'SKIN FELT Verified 07/27/18 10:10 (units unknown) (unknown) (unknown) (no date) (unknown) (unknown) soap [From BETADINE] Allergy Unknown 'SKIN Verified 07/27/18 10:10 (units unknown) (unknown) (unknown) (no date) (unknown) (unknown) stimulator in back lumbar + Dilaudid pain pump in abdomen found down by EMS (units unknown) (unknown) (unknown) (no date) (unknown) (unknown) stimulator in back lumbar + Dilaudid pain pump in abdomen.? EMS had apparently (units unknown) (unknown) (unknown) (no date) (unknown) (unknown) subcutaneous pen (Humalog KwikPen (units unknown) (unknown) (unknown) (no date) (unknown) (unknown) superficial laceration over his right forehead, small burn right forearm, (units unknown) (unknown) (unknown) (no date) (unknown) (unknown) tamsulosin 0.4 mg capsule 0.4 mg PO DAILY 01/14/23 01/14/23 History (units unknown) (unknown) (unknown) (no date) (unknown) (unknown) this evening on the bathroom floor confused, covered in multiple injuries with (units unknown) (unknown) (unknown) (no date) (unknown) (unknown) to encephalopathy. E D reported patient had an episode of atrial fibrillation (units unknown) (unknown) (unknown) (no date) (unknown) (unknown) to kill himself to the medics and when asked in ED he ' stated he did want to (units unknown) (unknown) (unknown) (no date) (unknown) (unknown) wave changes. Chest x-ray negative, C-spine negative, pelvic x-ray negative, (units unknown) (unknown) (unknown) (no date) (unknown) (unknown) wave changes. (units unknown) (unknown) (unknown) (no date) (unknown) (unknown) wheezes, rhonchi, or rales. (units unknown) (unknown) (unknown) (no date) (unknown) (unknown) when or if he is taken his medication. He did make statements that he wanted (units unknown) (unknown) (unknown) (no date) (unknown) (unknown) which metoprolol was given and quickly resolved. (units unknown) (unknown) Result panel 245 (unknown) (no date) (unknown) (unknown) (no value) (units unknown) (unknown) (unknown) (no date) (unknown) (unknown) (U-100) Insulin) (units unknown) (unknown) (unknown) (no date) (unknown) (unknown) (past 8 hours): (units unknown) (unknown) (unknown) (no date) (unknown) (unknown) -A1c ordered (units unknown) (unknown) (unknown) (no date) (unknown) (unknown) -AST 87, ALT 88, alk-phos 144, H+H 12.3/36.9, (units unknown) (unknown) (unknown) (no date) (unknown) (unknown) -BMI 28.9 (units unknown) (unknown) (unknown) (no date) (unknown) (unknown) -CT of abdomen/pelvi s multiple remote left rib fractures, left scapula fracture, (units unknown) (unknown) (unknown) (no date) (unknown) (unknown) -Chest x-ray negative, C-spine negative, pelvic x-ray negative, head CT negative (units unknown) (unknown) (unknown) (no date) (unknown) (unknown) -EKG sinus rhythm rate 72 QTC 499, without ST or T-wave changes. (units unknown) (unknown) (unknown) (no date) (unknown) (unknown) -[employer] [facility]ER Consult (units unknown) (unknown) (unknown) (no date) (unknown) (unknown) -PT/OT consult ordered (units unknown) (unknown) (unknown) (no date) (unknown) (unknown) -brain MR ordered fo r tomorrow--holding Lovenox until after MR results, risk of (units unknown) (unknown) (unknown) (no date) (unknown) (unknown) -continue Flomax (units unknown) (unknown) (unknown) (no date) (unknown) (unknown) -continue Lantus 20 units q.h.s., high-dose sliding scale (units unknown) (unknown) (unknown) (no date) (unknown) (unknown) -continue Lipitor (units unknown) (unknown) (unknown) (no date) (unknown) (unknown) -continue lisinopril , propranolol-holding Lasix due to hypovolemic state (units unknown) (unknown) (unknown) (no date) (unknown) (unknown) -dietary consult ordered regarding nutritional education and information for (units unknown) (unknown) (unknown) (no date) (unknown) (unknown) -found down by EMS (units unknown) (unknown) (unknown) (no date) (unknown) (unknown) -given 60 mg IV dose tonight, will initiate Day#1 64mg QID, Day#2 TID, Day#3BID, (units unknown) (unknown) (unknown) (no date) (unknown) (unknown) -initial ETOH 308, repeat 91 we will continue to trend (units unknown) (unknown) (unknown) (no date) (unknown) (unknown) -initial blood sugar 344, repeat 254-no gap, no DKA (units unknown) (unknown) (unknown) (no date) (unknown) (unknown) -lives alone, permanently disabled (units unknown) (unknown) (unknown) (no date) (unknown) (unknown) -neuro checks, stric t fall precaution, monitor for bleeding, trend H+H-H+H (units unknown) (unknown) (unknown) (no date) (unknown) (unknown) -patient admitted under CIWA protocol (units unknown) (unknown) (unknown) (no date) (unknown) (unknown) -patient admitted under diabetic protocols, BS checks a.c. HS (units unknown) (unknown) (unknown) (no date) (unknown) (unknown) -patient demonstrate d atrial fibrillation while in the ED was given 1 dose of (units unknown) (unknown) (unknown) (no date) (unknown) (unknown) -patient has lumbar InterStim in place, and Dilaudid pain pump in left abdomen (units unknown) (unknown) (unknown) (no date) (unknown) (unknown) -patient to be monitored on tele-no documented history of AFib. (units unknown) (unknown) (unknown) (no date) (unknown) (unknown) -rehydration NS at 100 cc/HR (units unknown) (unknown) (unknown) (no date) (unknown) (unknown) -seizure precautions (units unknown) (unknown) (unknown) (no date) (unknown) (unknown) -the patient is at much higher risk for medical and surgical complications due (units unknown) (unknown) (unknown) (no date) (unknown) (unknown) -tox screen is positive for opiates and benzos (units unknown) (unknown) (unknown) (no date) (unknown) (unknown) -unclear if this was secondary to alcohol abuse trauma uncontrolled diabetes. (units unknown) (unknown) (unknown) (no date) (unknown) (unknown) -was given phenobarbital loading dose in ED, (units unknown) (unknown) (unknown) (no date) (unknown) (unknown) -will trend ETOH, ordered ammonia, monitor electrolytes (units unknown) (unknown) (unknown) (no date) (unknown) (unknown) [id number] (units unknown) (unknown) (unknown) (no date) (unknown) (unknown) 01/14/23 01/14/23 01/14/23 (units unknown) (unknown) (unknown) (no date) (unknown) (unknown) 01/14/23 10:45 (units unknown) (unknown) (unknown) (no date) (unknown) (unknown) 01/14/23 (units unknown) (unknown) (unknown) (no date) (unknown) (unknown) 1. Found down, fall, with head injury, and encephalopathy, acute, present on (units unknown) (unknown) (unknown) (no date) (unknown) (unknown) 10:45 10:45 10:45 (units unknown) (unknown) (unknown) (no date) (unknown) (unknown) 10:45 11:23 13:48 (units unknown) (unknown) (unknown) (no date) (unknown) (unknown) 12.3/36.9, (units unknown) (unknown) (unknown) (no date) (unknown) (unknown) 14:09 14:09 15:25 (units unknown) (unknown) (unknown) (no date) (unknown) (unknown) 15:00 01/14/23 (units unknown) (unknown) (unknown) (no date) (unknown) (unknown) 15:02 01/14/23 (units unknown) (unknown) (unknown) (no date) (unknown) (unknown) 15:02 (units unknown) (unknown) (unknown) (no date) (unknown) (unknown) 15:30 01/14/23 (units unknown) (unknown) (unknown) (no date) (unknown) (unknown) 16:00 01/14/23 (units unknown) (unknown) (unknown) (no date) (unknown) (unknown) 16:00 (units unknown) (unknown) (unknown) (no date) (unknown) (unknown) 16:30 01/14/23 (units unknown) (unknown) (unknown) (no date) (unknown) (unknown) 17:00 01/14/23 (units unknown) (unknown) (unknown) (no date) (unknown) (unknown) 17:00 (units unknown) (unknown) (unknown) (no date) (unknown) (unknown) 17:30 01/14/23 (units unknown) (unknown) (unknown) (no date) (unknown) (unknown) 17:30 (units unknown) (unknown) (unknown) (no date) (unknown) (unknown) 18:00 01/14/23 (units unknown) (unknown) (unknown) (no date) (unknown) (unknown) 18:15 (units unknown) (unknown) (unknown) (no date) (unknown) (unknown) 18:30 01/14/23 (units unknown) (unknown) (unknown) (no date) (unknown) (unknown) 18:30 (units unknown) (unknown) (unknown) (no date) (unknown) (unknown) 19:00 01/14/23 (units unknown) (unknown) (unknown) (no date) (unknown) (unknown) 19:15 01/14/23 (units unknown) (unknown) (unknown) (no date) (unknown) (unknown) 19:15 (units unknown) (unknown) (unknown) (no date) (unknown) (unknown) 19:20 01/14/23 (units unknown) (unknown) (unknown) (no date) (unknown) (unknown) 19:20 (units unknown) (unknown) (unknown) (no date) (unknown) (unknown) 19:25 01/14/23 (units unknown) (unknown) (unknown) (no date) (unknown) (unknown) 19:30 01/14/23 (units unknown) (unknown) (unknown) (no date) (unknown) (unknown) 19:30 (units unknown) (unknown) (unknown) (no date) (unknown) (unknown) 19:34 01/14/23 (units unknown) (unknown) (unknown) (no date) (unknown) (unknown) 19:35 01/14/23 (units unknown) (unknown) (unknown) (no date) (unknown) (unknown) 19:35 (units unknown) (unknown) (unknown) (no date) (unknown) (unknown) 19:40 01/14/23 (units unknown) (unknown) (unknown) (no date) (unknown) (unknown) 19:40 (units unknown) (unknown) (unknown) (no date) (unknown) (unknown) 19:45 01/14/23 (units unknown) (unknown) (unknown) (no date) (unknown) (unknown) 19:50 01/14/23 (units unknown) (unknown) (unknown) (no date) (unknown) (unknown) 19:50 (units unknown) (unknown) (unknown) (no date) (unknown) (unknown) 19:55 01/14/23 (units unknown) (unknown) (unknown) (no date) (unknown) (unknown) 19:55 (units unknown) (unknown) (unknown) (no date) (unknown) (unknown) 2. Alcohol abuse, acute on chronic, alcohol intoxication, acute, present on (units unknown) (unknown) (unknown) (no date) (unknown) (unknown) 20:00 01/14/23 (units unknown) (unknown) (unknown) (no date) (unknown) (unknown) 20:05 01/14/23 (units unknown) (unknown) (unknown) (no date) (unknown) (unknown) 20:05 (units unknown) (unknown) (unknown) (no date) (unknown) (unknown) 20:30 01/14/23 (units unknown) (unknown) (unknown) (no date) (unknown) (unknown) 20:30 (units unknown) (unknown) (unknown) (no date) (unknown) (unknown) 21:00 01/14/23 (units unknown) (unknown) (unknown) (no date) (unknown) (unknown) 21:30 01/14/23 (units unknown) (unknown) (unknown) (no date) (unknown) (unknown) 21:30 (units unknown) (unknown) (unknown) (no date) (unknown) (unknown) 22:00 01/14/23 (units unknown) (unknown) (unknown) (no date) (unknown) (unknown) 22:25 (units unknown) (unknown) (unknown) (no date) (unknown) (unknown) 3. Atrial fibrillation, acute, present on admission-resolved (units unknown) (unknown) (unknown) (no date) (unknown) (unknown) 4. Insulin-dependent type 1 diabetes with associated dyslipidemia, (units unknown) (unknown) (unknown) (no date) (unknown) (unknown) 5. Hypertension, essential, present on admission (units unknown) (unknown) (unknown) (no date) (unknown) (unknown) 6. Chronic low back pain, chronic, present on admission (units unknown) (unknown) (unknown) (no date) (unknown) (unknown) 7. BPH, chronic, present on admission (units unknown) (unknown) (unknown) (no date) (unknown) (unknown) 8. Overweight, moderate, acute on chronic, present on admission (units unknown) (unknown) (unknown) (no date) (unknown) (unknown) AGE 12YR (units unknown) (unknown) (unknown) (no date) (unknown) (unknown) ALT 88 H (units unknown) (unknown) (unknown) (no date) (unknown) (unknown) ALT (units unknown) (unknown) (unknown) (no date) (unknown) (unknown) APTT 34 (units unknown) (unknown) (unknown) (no date) (unknown) (unknown) APTT (units unknown) (unknown) (unknown) (no date) (unknown) (unknown) AST 87 H (units unknown) (unknown) (unknown) (no date) (unknown) (unknown) AST (units unknown) (unknown) (unknown) (no date) (unknown) (unknown) Abdomen: Soft nontender, negative for organomegaly, or masses. Bowel sounds (units unknown) (unknown) (unknown) (no date) (unknown) (unknown) Age/Sex: 53 / M (units unknown) (unknown) (unknown) (no date) (unknown) (unknown) Albumin 4.0 (units unknown) (unknown) (unknown) (no date) (unknown) (unknown) Albumin (units unknown) (unknown) (unknown) (no date) (unknown) (unknown) Albumin/Globulin Ratio 1.3 (units unknown) (unknown) (unknown) (no date) (unknown) (unknown) Albumin/Globulin Ratio (units unknown) (unknown) (unknown) (no date) (unknown) (unknown) Alcohol intoxication (units unknown) (unknown) (unknown) (no date) (unknown) (unknown) Alkaline Phosphatase 146 H (units unknown) (unknown) (unknown) (no date) (unknown) (unknown) Alkaline Phosphatase (units unknown) (unknown) (unknown) (no date) (unknown) (unknown) Allergies (units unknown) (unknown) (unknown) (no date) (unknown) (unknown) Allergy/AdvReac Type Severity Reaction Status Date / Time (units unknown) (unknown) (unknown) (no date) (unknown) (unknown) Antibody Screen Negative (units unknown) (unknown) (unknown) (no date) (unknown) (unknown) Antibody Screen (units unknown) (unknown) (unknown) (no date) (unknown) (unknown) Assessment + Plan narrative: (units unknown) (unknown) (unknown) (no date) (unknown) (unknown) Assessment + Plan (units unknown) (unknown) (unknown) (no date) (unknown) (unknown) BPH (benign prostati c hyperplasia) (units unknown) (unknown) (unknown) (no date) (unknown) (unknown) BUN 8 L (units unknown) (unknown) (unknown) (no date) (unknown) (unknown) BUN (units unknown) (unknown) (unknown) (no date) (unknown) (unknown) BUN/Creatinine Ratio 19.0 (units unknown) (unknown) (unknown) (no date) (unknown) (unknown) BUN/Creatinine Ratio (units unknown) (unknown) (unknown) (no date) (unknown) (unknown) BURNING' (units unknown) (unknown) (unknown) (no date) (unknown) (unknown) Baso # (Auto) 100 (units unknown) (unknown) (unknown) (no date) (unknown) (unknown) Baso # (Auto) (units unknown) (unknown) (unknown) (no date) (unknown) (unknown) Baso % (Auto) 1.4 (units unknown) (unknown) (unknown) (no date) (unknown) (unknown) Baso % (Auto) (units unknown) (unknown) (unknown) (no date) (unknown) (unknown) Blood Pressure 106/5 2 L 113/56 L (units unknown) (unknown) (unknown) (no date) (unknown) (unknown) Blood Pressure 121/73 (units unknown) (unknown) (unknown) (no date) (unknown) (unknown) Blood Pressure 129/8 0 138/76 (units unknown) (unknown) (unknown) (no date) (unknown) (unknown) Blood Pressure 130/8 2 162/103 H (units unknown) (unknown) (unknown) (no date) (unknown) (unknown) Blood Pressure 132/9 6 H 169/93 H (units unknown) (unknown) (unknown) (no date) (unknown) (unknown) Blood Pressure 137/72 (units unknown) (unknown) (unknown) (no date) (unknown) (unknown) Blood Pressure 137/85 (units unknown) (unknown) (unknown) (no date) (unknown) (unknown) Blood Pressure 138/102 H 130/92 H (units unknown) (unknown) (unknown) (no date) (unknown) (unknown) Blood Pressure 142/8 9 H (units unknown) (unknown) (unknown) (no date) (unknown) (unknown) Blood Pressure 143/9 4 H 141/93 H (units unknown) (unknown) (unknown) (no date) (unknown) (unknown) Blood Pressure 148/8 2 H (units unknown) (unknown) (unknown) (no date) (unknown) (unknown) Blood Pressure 155/9 5 H 124/84 (units unknown) (unknown) (unknown) (no date) (unknown) (unknown) Blood Pressure 158/9 5 H (units unknown) (unknown) (unknown) (no date) (unknown) (unknown) Blood Pressure 172/8 8 H (units unknown) (unknown) (unknown) (no date) (unknown) (unknown) Blood Pressure 175/108 H (units unknown) (unknown) (unknown) (no date) (unknown) (unknown) Blood Pressure (units unknown) (unknown) (unknown) (no date) (unknown) (unknown) Blood Type O Positive (units unknown) (unknown) (unknown) (no date) (unknown) (unknown) Blood Type (units unknown) (unknown) (unknown) (no date) (unknown) (unknown) COVID PCR: Negative (units unknown) (unknown) (unknown) (no date) (unknown) (unknown) Calcium 8.5 (units unknown) (unknown) (unknown) (no date) (unknown) (unknown) Calcium (units unknown) (unknown) (unknown) (no date) (unknown) (unknown) Carbon Dioxide 30 (units unknown) (unknown) (unknown) (no date) (unknown) (unknown) Carbon Dioxide (units unknown) (unknown) (unknown) (no date) (unknown) (unknown) Cardio: regular rate and rhythm without murmur, rubs, or gallops, no carotid (units unknown) (unknown) (unknown) (no date) (unknown) (unknown) Chest: Breathing no nasal flaring, retractions, or tachypneic labored (units unknown) (unknown) (unknown) (no date) (unknown) (unknown) Chief complaint: Trauma (units unknown) (unknown) (unknown) (no date) (unknown) (unknown) Chloride 100 (units unknown) (unknown) (unknown) (no date) (unknown) (unknown) Chloride (units unknown) (unknown) (unknown) (no date) (unknown) (unknown) Chronic low back pain (units unknown) (unknown) (unknown) (no date) (unknown) (unknown) Code status: Full (units unknown) (unknown) (unknown) (no date) (unknown) (unknown) Comment: (units unknown) (unknown) (unknown) (no date) (unknown) (unknown) Congestive heart failure (units unknown) (unknown) (unknown) (no date) (unknown) (unknown) Creatinine 0.42 L (units unknown) (unknown) (unknown) (no date) (unknown) (unknown) Creatinine (units unknown) (unknown) (unknown) (no date) (unknown) (unknown) : 1970 Acct:[id number] (units unknown) (unknown) (unknown) (no date) (unknown) (unknown) DVT/VTE prophylaxis: Holding Lovenox until brain MR completed, SCDs only (units unknown) (unknown) (unknown) (no date) (unknown) (unknown) Date Patient Seen: 01/14/23 (units unknown) (unknown) (unknown) (no date) (unknown) (unknown) Date of Service: 01/14/23 (units unknown) (unknown) (unknown) (no date) (unknown) (unknown) Day#4QD (units unknown) (unknown) (unknown) (no date) (unknown) (unknown) Disposition: Patient admitted to acute care expected length of stay greater (units unknown) (unknown) (unknown) (no date) (unknown) (unknown) Drinks a 5th of vodk a daily (units unknown) (unknown) (unknown) (no date) (unknown) (unknown) ED made multiple attempts to transfer patient for detox, but was refused due to (units unknown) (unknown) (unknown) (no date) (unknown) (unknown) Eos # (Auto) 100 (units unknown) (unknown) (unknown) (no date) (unknown) (unknown) Eos # (Auto) (units unknown) (unknown) (unknown) (no date) (unknown) (unknown) Eos % (Auto) 2.2 (units unknown) (unknown) (unknown) (no date) (unknown) (unknown) Eos % (Auto) (units unknown) (unknown) (unknown) (no date) (unknown) (unknown) Essential hypertension (units unknown) (unknown) (unknown) (no date) (unknown) (unknown) Estimated GFR > 60 (units unknown) (unknown) (unknown) (no date) (unknown) (unknown) Estimated GFR (units unknown) (unknown) (unknown) (no date) (unknown) (unknown) Ethyl Alcohol 308 H (units unknown) (unknown) (unknown) (no date) (unknown) (unknown) Ethyl Alcohol 91 H (units unknown) (unknown) (unknown) (no date) (unknown) (unknown) Ethyl Alcohol (units unknown) (unknown) (unknown) (no date) (unknown) (unknown) Exam Narrative: (units unknown) (unknown) (unknown) (no date) (unknown) (unknown) Exam (units unknown) (unknown) (unknown) (no date) (unknown) (unknown) FEELS LIKE (units unknown) (unknown) (unknown) (no date) (unknown) (unknown) Family History (Updated 01/15/23 @ 02:24 by Genesis Dunn, [facility]) (units unknown) (unknown) (unknown) (no date) (unknown) (unknown) Father Diabetes mellitus (units unknown) (unknown) (unknown) (no date) (unknown) (unknown) General: Patient is disheveled, appears chronically ill and unwell, with (units unknown) (unknown) (unknown) (no date) (unknown) (unknown) Globulin 3.2 (units unknown) (unknown) (unknown) (no date) (unknown) (unknown) Globulin (units unknown) (unknown) (unknown) (no date) (unknown) (unknown) Glucose 254 H (units unknown) (unknown) (unknown) (no date) (unknown) (unknown) Glucose (units unknown) (unknown) (unknown) (no date) (unknown) (unknown) HEARING (units unknown) (unknown) (unknown) (no date) (unknown) (unknown) HEENT: Normocephalic , extraocular muscles intact, oral pharynx is clear and (units unknown) (unknown) (unknown) (no date) (unknown) (unknown) HLD, BPH, insulin-dependent diabetes and chronic low back pain tx with InterStim (units unknown) (unknown) (unknown) (no date) (unknown) (unknown) Hct 36.9 L (units unknown) (unknown) (unknown) (no date) (unknown) (unknown) Hct (units unknown) (unknown) (unknown) (no date) (unknown) (unknown) Hgb 12.3 L (units unknown) (unknown) (unknown) (no date) (unknown) (unknown) Hgb (units unknown) (unknown) (unknown) (no date) (unknown) (unknown) History + Physical Report (units unknown) (unknown) (unknown) (no date) (unknown) (unknown) History of Present Illness (units unknown) (unknown) (unknown) (no date) (unknown) (unknown) History of shoulder surgery (units unknown) (unknown) (unknown) (no date) (unknown) (unknown) History (units unknown) (unknown) (unknown) (no date) (unknown) (unknown) Home Medications and Allergies (units unknown) (unknown) (unknown) (no date) (unknown) (unknown) Home Medications (units unknown) (unknown) (unknown) (no date) (unknown) (unknown) Hyperlipidemia due t o type 1 diabetes mellitus (units unknown) (unknown) (unknown) (no date) (unknown) (unknown) I confirmed that the patient's advanced care plan is present, Code status is (units unknown) (unknown) (unknown) (no date) (unknown) (unknown) I have personally reviewed patient's chart notes from PCP, specialists, (units unknown) (unknown) (unknown) (no date) (unknown) (unknown) I have utilized all available immediate resources to obtain, update, or review (units unknown) (unknown) (unknown) (no date) (unknown) (unknown) INR 1.0 (units unknown) (unknown) (unknown) (no date) (unknown) (unknown) INR (units unknown) (unknown) (unknown) (no date) (unknown) (unknown) [address] [address] (units unknown) (unknown) (unknown) (no date) (unknown) (unknown) JVD (units unknown) (unknown) (unknown) (no date) (unknown) (unknown) LOSS AT (units unknown) (unknown) (unknown) (no date) (unknown) (unknown) Laboratory Results - last 24 hr (units unknown) (unknown) (unknown) (no date) (unknown) (unknown) Labs (units unknown) (unknown) (unknown) (no date) (unknown) (unknown) Labs: (units unknown) (unknown) (unknown) (no date) (unknown) (unknown) Lactate 2.1 1.9 (units unknown) (unknown) (unknown) (no date) (unknown) (unknown) Lactate (units unknown) (unknown) (unknown) (no date) (unknown) (unknown) Lipase 109 (units unknown) (unknown) (unknown) (no date) (unknown) (unknown) Lipase (units unknown) (unknown) (unknown) (no date) (unknown) (unknown) Lungs: Auscultation of all lung lopez are clear without adventitious sounds, (units unknown) (unknown) (unknown) (no date) (unknown) (unknown) Lymph # (Auto) 1700 (units unknown) (unknown) (unknown) (no date) (unknown) (unknown) Lymph # (Auto) (units unknown) (unknown) (unknown) (no date) (unknown) (unknown) Lymph % (Auto) 39.1 (units unknown) (unknown) (unknown) (no date) (unknown) (unknown) Lymph % (Auto) (units unknown) (unknown) (unknown) (no date) (unknown) (unknown) MCH 32.5 (units unknown) (unknown) (unknown) (no date) (unknown) (unknown) MCH (units unknown) (unknown) (unknown) (no date) (unknown) (unknown) MCHC 33.5 (units unknown) (unknown) (unknown) (no date) (unknown) (unknown) MCHC (units unknown) (unknown) (unknown) (no date) (unknown) (unknown) MCV 97.1 (units unknown) (unknown) (unknown) (no date) (unknown) (unknown) MCV (units unknown) (unknown) (unknown) (no date) (unknown) (unknown) Medical History (units unknown) (unknown) (unknown) (no date) (unknown) (unknown) Medication Instructions Recorded Confirmed Type (units unknown) (unknown) (unknown) (no date) (unknown) (unknown) Meds (units unknown) (unknown) (unknown) (no date) (unknown) (unknown) Sj Romo is a 53-year-old male with known history of alcohol abuse, HTN, (units unknown) (unknown) (unknown) (no date) (unknown) (unknown) Micro UA Comment Microscopic normal (units unknown) (unknown) (unknown) (no date) (unknown) (unknown) Micro UA Comment (units unknown) (unknown) (unknown) (no date) (unknown) (unknown) [place] # (Auto) 600 (units unknown) (unknown) (unknown) (no date) (unknown) (unknown) [place] # (Auto) (units unknown) (unknown) (unknown) (no date) (unknown) (unknown) [place] % (Auto) 14.9 H (units unknown) (unknown) (unknown) (no date) (unknown) (unknown) [place] % (Auto) (units unknown) (unknown) (unknown) (no date) (unknown) (unknown) Mother Diabetes mellitus (units unknown) (unknown) (unknown) (no date) (unknown) (unknown) Multiple falls (units unknown) (unknown) (unknown) (no date) (unknown) (unknown) Musculoskeletal: Muscle strength and tone appear wasting, no deformity, (units unknown) (unknown) (unknown) (no date) (unknown) (unknown) Narrative (units unknown) (unknown) (unknown) (no date) (unknown) (unknown) Narrative: (units unknown) (unknown) (unknown) (no date) (unknown) (unknown) Neuro: Alert to self , confused, moves all extremities, sensation to touch (units unknown) (unknown) (unknown) (no date) (unknown) (unknown) Neut # (Auto) 1800 (units unknown) (unknown) (unknown) (no date) (unknown) (unknown) Neut # (Auto) (units unknown) (unknown) (unknown) (no date) (unknown) (unknown) Neut % (Auto) 42.4 L (units unknown) (unknown) (unknown) (no date) (unknown) (unknown) Neut % (Auto) (units unknown) (unknown) (unknown) (no date) (unknown) (unknown) Objective (units unknown) (unknown) (unknown) (no date) (unknown) (unknown) Oxygen Delivery Method Room Air (units unknown) (unknown) (unknown) (no date) (unknown) (unknown) Oxygen Delivery Method (units unknown) (unknown) (unknown) (no date) (unknown) (unknown) PFSH (units unknown) (unknown) (unknown) (no date) (unknown) (unknown) PT 11.2 (units unknown) (unknown) (unknown) (no date) (unknown) (unknown) PT (units unknown) (unknown) (unknown) (no date) (unknown) (unknown) Patient: Sj Romo MR#: [id number] (units unknown) (unknown) (unknown) (no date) (unknown) (unknown) Plt Count 296 (units unknown) (unknown) (unknown) (no date) (unknown) (unknown) Plt Count (units unknown) (unknown) (unknown) (no date) (unknown) (unknown) Potassium 3.9 (units unknown) (unknown) (unknown) (no date) (unknown) (unknown) Potassium (units unknown) (unknown) (unknown) (no date) (unknown) (unknown) Provider: eGnesis Dunn-BC (units unknown) (unknown) (unknown) (no date) (unknown) (unknown) Psych: Patient has a poor kept appearance, calm inappropriate affect-does not (units unknown) (unknown) (unknown) (no date) (unknown) (unknown) Pulse Oximetry 91 96 (units unknown) (unknown) (unknown) (no date) (unknown) (unknown) Pulse Oximetry 92 (units unknown) (unknown) (unknown) (no date) (unknown) (unknown) Pulse Oximetry 94 94 (units unknown) (unknown) (unknown) (no date) (unknown) (unknown) Pulse Oximetry 94 95 (units unknown) (unknown) (unknown) (no date) (unknown) (unknown) Pulse Oximetry 94 96 (units unknown) (unknown) (unknown) (no date) (unknown) (unknown) Pulse Oximetry 94 (units unknown) (unknown) (unknown) (no date) (unknown) (unknown) Pulse Oximetry 95 95 100 (units unknown) (unknown) (unknown) (no date) (unknown) (unknown) Pulse Oximetry 95 96 (units unknown) (unknown) (unknown) (no date) (unknown) (unknown) Pulse Oximetry 95 (units unknown) (unknown) (unknown) (no date) (unknown) (unknown) Pulse Oximetry 96 94 (units unknown) (unknown) (unknown) (no date) (unknown) (unknown) Pulse Oximetry 96 96 (units unknown) (unknown) (unknown) (no date) (unknown) (unknown) Pulse Oximetry 96 (units unknown) (unknown) (unknown) (no date) (unknown) (unknown) Pulse Rate 156 H (units unknown) (unknown) (unknown) (no date) (unknown) (unknown) Pulse Rate 69 (units unknown) (unknown) (unknown) (no date) (unknown) (unknown) Pulse Rate 71 (units unknown) (unknown) (unknown) (no date) (unknown) (unknown) Pulse Rate 74 101 H (units unknown) (unknown) (unknown) (no date) (unknown) (unknown) Pulse Rate 74 (units unknown) (unknown) (unknown) (no date) (unknown) (unknown) Pulse Rate 75 (units unknown) (unknown) (unknown) (no date) (unknown) (unknown) Pulse Rate 77 (units unknown) (unknown) (unknown) (no date) (unknown) (unknown) Pulse Rate 78 60 57 L (units unknown) (unknown) (unknown) (no date) (unknown) (unknown) Pulse Rate 78 74 (units unknown) (unknown) (unknown) (no date) (unknown) (unknown) Pulse Rate 81 77 (units unknown) (unknown) (unknown) (no date) (unknown) (unknown) Pulse Rate 83 80 (units unknown) (unknown) (unknown) (no date) (unknown) (unknown) Pulse Rate 85 78 168 H (units unknown) (unknown) (unknown) (no date) (unknown) (unknown) Pulse Rate 89 94 H (units unknown) (unknown) (unknown) (no date) (unknown) (unknown) Pulse Rate 93 H 78 (units unknown) (unknown) (unknown) (no date) (unknown) (unknown) Pulse Rate 97 H 96 H (units unknown) (unknown) (unknown) (no date) (unknown) (unknown) RBC 3.80 L (units unknown) (unknown) (unknown) (no date) (unknown) (unknown) RBC (units unknown) (unknown) (unknown) (no date) (unknown) (unknown) RDW 13.2 (units unknown) (unknown) (unknown) (no date) (unknown) (unknown) RDW (units unknown) (unknown) (unknown) (no date) (unknown) (unknown) Respiratory Rate 10 L (units unknown) (unknown) (unknown) (no date) (unknown) (unknown) Respiratory Rate 11 L (units unknown) (unknown) (unknown) (no date) (unknown) (unknown) Respiratory Rate 13 13 (units unknown) (unknown) (unknown) (no date) (unknown) (unknown) Respiratory Rate 13 (units unknown) (unknown) (unknown) (no date) (unknown) (unknown) Respiratory Rate 14 14 (units unknown) (unknown) (unknown) (no date) (unknown) (unknown) Respiratory Rate 14 23 (units unknown) (unknown) (unknown) (no date) (unknown) (unknown) Respiratory Rate 14 (units unknown) (unknown) (unknown) (no date) (unknown) (unknown) Respiratory Rate 15 (units unknown) (unknown) (unknown) (no date) (unknown) (unknown) Respiratory Rate 16 (units unknown) (unknown) (unknown) (no date) (unknown) (unknown) Respiratory Rate 18 0 L 17 (units unknown) (unknown) (unknown) (no date) (unknown) (unknown) Respiratory Rate 19 15 (units unknown) (unknown) (unknown) (no date) (unknown) (unknown) Respiratory Rate 19 18 20 (units unknown) (unknown) (unknown) (no date) (unknown) (unknown) Respiratory Rate 24 17 (units unknown) (unknown) (unknown) (no date) (unknown) (unknown) Respiratory Rate (units unknown) (unknown) (unknown) (no date) (unknown) (unknown) Review of Systems (units unknown) (unknown) (unknown) (no date) (unknown) (unknown) SARS-CoV-2 (PCR) Negative (units unknown) (unknown) (unknown) (no date) (unknown) (unknown) SARS-CoV-2 (PCR) (units unknown) (unknown) (unknown) (no date) (unknown) (unknown) Signed By: (units unknown) (unknown) (unknown) (no date) (unknown) (unknown) Skin: scabbed superficial laceration over his right forehead, small burn right (units unknown) (unknown) (unknown) (no date) (unknown) (unknown) Smoking Status: Milagro huang smoker (units unknown) (unknown) (unknown) (no date) (unknown) (unknown) Social History (Updated 01/15/23 @ 02:23 by SOMMER Chairez) (units unknown) (unknown) (unknown) (no date) (unknown) (unknown) Sodium 140 (units unknown) (unknown) (unknown) (no date) (unknown) (unknown) Sodium (units unknown) (unknown) (unknown) (no date) (unknown) (unknown) Solostar U-100 Insulin) (units unknown) (unknown) (unknown) (no date) (unknown) (unknown) Surgical History (units unknown) (unknown) (unknown) (no date) (unknown) (unknown) Surrogate decision maker: Sun Yancey friend (units unknown) (unknown) (unknown) (no date) (unknown) (unknown) Time Patient Seen: 22:42 (units unknown) (unknown) (unknown) (no date) (unknown) (unknown) Total Bilirubin 0.4 (units unknown) (unknown) (unknown) (no date) (unknown) (unknown) Total Bilirubin (units unknown) (unknown) (unknown) (no date) (unknown) (unknown) Total Protein 7.2 (units unknown) (unknown) (unknown) (no date) (unknown) (unknown) Total Protein (units unknown) (unknown) (unknown) (no date) (unknown) (unknown) U Benzodiazepines Scrn Positive H (units unknown) (unknown) (unknown) (no date) (unknown) (unknown) U Benzodiazepines Scrn (units unknown) (unknown) (unknown) (no date) (unknown) (unknown) U Marijuana (THC) Screen Negative (units unknown) (unknown) (unknown) (no date) (unknown) (unknown) U Marijuana (THC) Screen (units unknown) (unknown) (unknown) (no date) (unknown) (unknown) U Methamphetamines Scrn Negative (units unknown) (unknown) (unknown) (no date) (unknown) (unknown) U Methamphetamines Scrn (units unknown) (unknown) (unknown) (no date) (unknown) (unknown) U Opiates 300ng/mL cut Positive H (units unknown) (unknown) (unknown) (no date) (unknown) (unknown) U Opiates 300ng/mL cut (units unknown) (unknown) (unknown) (no date) (unknown) (unknown) U Tricyclic Antidepress Negative (units unknown) (unknown) (unknown) (no date) (unknown) (unknown) U Tricyclic Antidepress (units unknown) (unknown) (unknown) (no date) (unknown) (unknown) Unable to obtain accurate ROS due to encephalopathy-All 12 point systems (units unknown) (unknown) (unknown) (no date) (unknown) (unknown) Ur Amphetamines Screen Negative (units unknown) (unknown) (unknown) (no date) (unknown) (unknown) Ur Amphetamines Screen (units unknown) (unknown) (unknown) (no date) (unknown) (unknown) Ur Barbiturates Screen Negative (units unknown) (unknown) (unknown) (no date) (unknown) (unknown) Ur Barbiturates Screen (units unknown) (unknown) (unknown) (no date) (unknown) (unknown) Ur Culture Indicated ? Cult not indicated (units unknown) (unknown) (unknown) (no date) (unknown) (unknown) Ur Culture Indicated? (units unknown) (unknown) (unknown) (no date) (unknown) (unknown) Ur Leukocyte Esteras e Negative (units unknown) (unknown) (unknown) (no date) (unknown) (unknown) Ur Leukocyte Esterase (units unknown) (unknown) (unknown) (no date) (unknown) (unknown) Ur MDMA Scrn (Ecstasy) Negative (units unknown) (unknown) (unknown) (no date) (unknown) (unknown) Ur MDMA Scrn (Ecstasy) (units unknown) (unknown) (unknown) (no date) (unknown) (unknown) Ur Oxycodone Screen Negative (units unknown) (unknown) (unknown) (no date) (unknown) (unknown) Ur Oxycodone Screen (units unknown) (unknown) (unknown) (no date) (unknown) (unknown) Ur Phencyclidine Scr n Negative (units unknown) (unknown) (unknown) (no date) (unknown) (unknown) Ur Phencyclidine Scrn (units unknown) (unknown) (unknown) (no date) (unknown) (unknown) Ur Specific [place] 1.010 (units unknown) (unknown) (unknown) (no date) (unknown) (unknown) Ur Specific [place] (units unknown) (unknown) (unknown) (no date) (unknown) (unknown) Urine Appearance Clear (units unknown) (unknown) (unknown) (no date) (unknown) (unknown) Urine Appearance (units unknown) (unknown) (unknown) (no date) (unknown) (unknown) Urine Bacteria None seen (units unknown) (unknown) (unknown) (no date) (unknown) (unknown) Urine Bacteria (units unknown) (unknown) (unknown) (no date) (unknown) (unknown) Urine Bilirubin Negative (units unknown) (unknown) (unknown) (no date) (unknown) (unknown) Urine Bilirubin (units unknown) (unknown) (unknown) (no date) (unknown) (unknown) Urine Cocaine Screen Negative (units unknown) (unknown) (unknown) (no date) (unknown) (unknown) Urine Cocaine Screen (units unknown) (unknown) (unknown) (no date) (unknown) (unknown) Urine Color Yellow (units unknown) (unknown) (unknown) (no date) (unknown) (unknown) Urine Color (units unknown) (unknown) (unknown) (no date) (unknown) (unknown) Urine Glucose (UA) 2 + H (units unknown) (unknown) (unknown) (no date) (unknown) (unknown) Urine Glucose (UA) (units unknown) (unknown) (unknown) (no date) (unknown) (unknown) Urine Ketones Negative (units unknown) (unknown) (unknown) (no date) (unknown) (unknown) Urine Ketones (units unknown) (unknown) (unknown) (no date) (unknown) (unknown) Urine Methadone Screen Negative (units unknown) (unknown) (unknown) (no date) (unknown) (unknown) Urine Methadone Screen (units unknown) (unknown) (unknown) (no date) (unknown) (unknown) Urine Nitrate Negative (units unknown) (unknown) (unknown) (no date) (unknown) (unknown) Urine Nitrate (units unknown) (unknown) (unknown) (no date) (unknown) (unknown) Urine Occult Blood Negative (units unknown) (unknown) (unknown) (no date) (unknown) (unknown) Urine Occult Blood (units unknown) (unknown) (unknown) (no date) (unknown) (unknown) Urine Protein Negative (units unknown) (unknown) (unknown) (no date) (unknown) (unknown) Urine Protein (units unknown) (unknown) (unknown) (no date) (unknown) (unknown) Urine RBC None seen (units unknown) (unknown) (unknown) (no date) (unknown) (unknown) Urine RBC (units unknown) (unknown) (unknown) (no date) (unknown) (unknown) Urine Urobilinogen 1.0 (units unknown) (unknown) (unknown) (no date) (unknown) (unknown) Urine Urobilinogen (units unknown) (unknown) (unknown) (no date) (unknown) (unknown) Urine WBC None seen (units unknown) (unknown) (unknown) (no date) (unknown) (unknown) Urine WBC (units unknown) (unknown) (unknown) (no date) (unknown) (unknown) Urine pH 6.5 (units unknown) (unknown) (unknown) (no date) (unknown) (unknown) Urine pH (units unknown) (unknown) (unknown) (no date) (unknown) (unknown) Vital Signs (units unknown) (unknown) (unknown) (no date) (unknown) (unknown) WAS (units unknown) (unknown) (unknown) (no date) (unknown) (unknown) WBC 4.3 L (units unknown) (unknown) (unknown) (no date) (unknown) (unknown) WBC (units unknown) (unknown) (unknown) (no date) (unknown) (unknown) When asked on admit regarding code status patient requested to be a full code, (units unknown) (unknown) (unknown) (no date) (unknown) (unknown) [Embedded Image Not Available] (units unknown) (unknown) (unknown) (no date) (unknown) (unknown) [From BETADINE] FEEL S LIKE (units unknown) (unknown) (unknown) (no date) (unknown) (unknown) [SHELLFISH DERIVED] LIKE IT (units unknown) (unknown) (unknown) (no date) (unknown) (unknown) acute distress at this time. (units unknown) (unknown) (unknown) (no date) (unknown) (unknown) adenopathy, no thyroid enlargement, nontender, no masses palpated. Negative for (units unknown) (unknown) (unknown) (no date) (unknown) (unknown) admission (units unknown) (unknown) (unknown) (no date) (unknown) (unknown) admit patient is unable to state where he is unable to recall how or when he (units unknown) (unknown) (unknown) (no date) (unknown) (unknown) alcohol intake: current (units unknown) (unknown) (unknown) (no date) (unknown) (unknown) and L1/L2 transverse process fracture. (units unknown) (unknown) (unknown) (no date) (unknown) (unknown) and denied suicide ideation. patient is hemodynamically stable pleasant (units unknown) (unknown) (unknown) (no date) (unknown) (unknown) anterior lower extremity, significant deep bruising to lower coccyx area. (units unknown) (unknown) (unknown) (no date) (unknown) (unknown) appear to appreciate severity of injuries and state of health, mental status (units unknown) (unknown) (unknown) (no date) (unknown) (unknown) are present in all 4 quadrants without guarding or rebound, no CVA tenderness. (units unknown) (unknown) (unknown) (no date) (unknown) (unknown) atorvastatin 40 mg tablet 40 mg PO BEDTIME 01/14/23 01/14/23 History (units unknown) (unknown) (unknown) (no date) (unknown) (unknown) attempts to transfer patient for detox, but was refused due to hyperglycemia, (units unknown) (unknown) (unknown) (no date) (unknown) (unknown) attitude thought context and judgment are in appropriate for age. (units unknown) (unknown) (unknown) (no date) (unknown) (unknown) been called to the patient's home several times over the last few days, he was (units unknown) (unknown) (unknown) (no date) (unknown) (unknown) bleed (units unknown) (unknown) (unknown) (no date) (unknown) (unknown) blood and broken glass around him. Patient was seen and evaluated by [facility] in the (units unknown) (unknown) (unknown) (no date) (unknown) (unknown) bruising left abdomen, upper abd, chest, scabbed abrasion to left anterior lower (units unknown) (unknown) (unknown) (no date) (unknown) (unknown) bruit, no cardiac pulsations present. (units unknown) (unknown) (unknown) (no date) (unknown) (unknown) converses easily but is confused. WBC 4.3, H+H 12.3/36.9, initial glucose 344, (units unknown) (unknown) (unknown) (no date) (unknown) (unknown) covered in a variety of multiple injuries in varying degrees healing, a scabbed (units unknown) (unknown) (unknown) (no date) (unknown) (unknown) crepitus, effusions, cyanosis, clubbing or edema present. Full range of motion (units unknown) (unknown) (unknown) (no date) (unknown) (unknown) dextroamphetamine-am p hetamine 20 20 mg PO BID 01/14/23 01/14/23 History (units unknown) (unknown) (unknown) (no date) (unknown) (unknown) diagnostic imaging, and laboratory results. (units unknown) (unknown) (unknown) (no date) (unknown) (unknown) did not answer.? Patient was seen and evaluated by [facility] in the ED made multiple (units unknown) (unknown) (unknown) (no date) (unknown) (unknown) dietary, lifestyle, exercise, and weight changes. (units unknown) (unknown) (unknown) (no date) (unknown) (unknown) diffuse multiple injuries in various stages of healing from head to toe, in no (units unknown) (unknown) (unknown) (no date) (unknown) (unknown) documented and/or surrogate decision maker is listed in the patient's medical r (units unknown) (unknown) (unknown) (no date) (unknown) (unknown) ecord. (units unknown) (unknown) (unknown) (no date) (unknown) (unknown) elevated QTC on EKG, and encephalopathy. Unable to obtain accurate HPI, ROS due (units unknown) (unknown) (unknown) (no date) (unknown) (unknown) extremities well.? I s conversant but confused.? Patient states he drinks at (units unknown) (unknown) (unknown) (no date) (unknown) (unknown) extremity, significant deep bruising to lower coccyx area. Patient denies (units unknown) (unknown) (unknown) (no date) (unknown) (unknown) fall, head injury, atrial fibrillation, encephalopathy, ETOH abuse/intoxication, (units unknown) (unknown) (unknown) (no date) (unknown) (unknown) fall, head injury, encephalopathy, ETOH abuse/intoxication, hyperglycemia. (units unknown) (unknown) (unknown) (no date) (unknown) (unknown) forearm, bruising left abdomen + upper abd, + chest, scabbed abrasion to left (units unknown) (unknown) (unknown) (no date) (unknown) (unknown) found down this evening on the bathroom floor with broken glass perhaps broken (units unknown) (unknown) (unknown) (no date) (unknown) (unknown) furosemide 20 mg tablet 20 mg PO DAILY 01/14/23 01/14/23 History (units unknown) (unknown) (unknown) (no date) (unknown) (unknown) head CT negative, CT of abdomen/pelvis multiple remote left rib fractures, left (units unknown) (unknown) (unknown) (no date) (unknown) (unknown) household members: none (units unknown) (unknown) (unknown) (no date) (unknown) (unknown) hyperglycemia, acute on chronic, present on admission-uncontrolle d/noncompliant (units unknown) (unknown) (unknown) (no date) (unknown) (unknown) hyperglycemia, elevated QTC on EKG, and encephalopathy. Patient admitted for (units unknown) (unknown) (unknown) (no date) (unknown) (unknown) hyperglycemia. (units unknown) (unknown) (unknown) (no date) (unknown) (unknown) insulin glargine 100 unit/mL (3 20 unit SUBCUT BEDTIME 01/14/23 01/14/23 History (units unknown) (unknown) (unknown) (no date) (unknown) (unknown) insulin lispro 100 unit/mL See Rx Instructions .Route .COMPLEX 01/14/23 01/14/23 (units unknown) (unknown) (unknown) (no date) (unknown) (unknown) intact radial and pedal pulses are normal. (units unknown) (unknown) (unknown) (no date) (unknown) (unknown) intact, no gross deficits noted of cranial nerves. (units unknown) (unknown) (unknown) (no date) (unknown) (unknown) kill himself when asked why he did not answer'? When asked if he has a plan he (units unknown) (unknown) (unknown) (no date) (unknown) (unknown) least a 5th of Vodka daily, denies tobacco or illicit.? Patient is unable to (units unknown) (unknown) (unknown) (no date) (unknown) (unknown) losartan 100 mg tablet 100 mg PO DAILY 01/14/23 01/14/23 History (units unknown) (unknown) (unknown) (no date) (unknown) (unknown) mL) subcutaneous pen (Lantus (units unknown) (unknown) (unknown) (no date) (unknown) (unknown) metoprolol at which time it resolved (units unknown) (unknown) (unknown) (no date) (unknown) (unknown) mg tablet (units unknown) (unknown) (unknown) (no date) (unknown) (unknown) mirror and blood at the scene. Patient is confused, but redirectable. During (units unknown) (unknown) (unknown) (no date) (unknown) (unknown) mucous membranes are dry. Neck is supple and symmetric, trachea is midline, no (units unknown) (unknown) (unknown) (no date) (unknown) (unknown) negative, tox screen is positive for opiates and benzos, initial ETOH 308, (units unknown) (unknown) (unknown) (no date) (unknown) (unknown) obtain these injurie s in the events that led him to the hospital today. He is (units unknown) (unknown) (unknown) (no date) (unknown) (unknown) pain, no shortness o f breath, no GI or urinary symptoms.? He is moving all his (units unknown) (unknown) (unknown) (no date) (unknown) (unknown) patient's obesity increases the difficulty and complexity of medical and/or (units unknown) (unknown) (unknown) (no date) (unknown) (unknown) penicillin G [PENICILLIN G] Allergy Unknown LEFT EAR Verified 07/27/18 10:10 (units unknown) (unknown) (unknown) (no date) (unknown) (unknown) povidone-iodine Allergy Unknown 'SKIN Verified 07/27/18 10:10 (units unknown) (unknown) (unknown) (no date) (unknown) (unknown) propranolol 20 mg tablet 20 mg PO BID 01/14/23 01/14/23 History (units unknown) (unknown) (unknown) (no date) (unknown) (unknown) recall what his medications are he believes he is on insulins but he has no idea (units unknown) (unknown) (unknown) (no date) (unknown) (unknown) repeat 254, AST 87, ALT 88, alk-phos 144, UA negative, lactate negative, lipase (units unknown) (unknown) (unknown) (no date) (unknown) (unknown) repeat 91. COVID negative. EKG sinus rhythm rate 72 QTC 499, without ST or T (units unknown) (unknown) (unknown) (no date) (unknown) (unknown) reviewed with the patient and are negative except otherwise documented. (units unknown) (unknown) (unknown) (no date) (unknown) (unknown) scapula fracture, an d L1/L2 transverse process fracture. Patient admitted for (units unknown) (unknown) (unknown) (no date) (unknown) (unknown) shellfish derived Allergy Unknown 'SKIN FELT Verified 07/27/18 10:10 (units unknown) (unknown) (unknown) (no date) (unknown) (unknown) soap [From BETADINE] Allergy Unknown 'SKIN Verified 07/27/18 10:10 (units unknown) (unknown) (unknown) (no date) (unknown) (unknown) stimulator in back lumbar + Dilaudid pain pump in abdomen found down by EMS (units unknown) (unknown) (unknown) (no date) (unknown) (unknown) stimulator in back lumbar + Dilaudid pain pump in abdomen.? EMS had apparently (units unknown) (unknown) (unknown) (no date) (unknown) (unknown) subcutaneous pen (Humalog KwikPen (units unknown) (unknown) (unknown) (no date) (unknown) (unknown) such as morbidity an d mortality as well as impaired wound healing. (units unknown) (unknown) (unknown) (no date) (unknown) (unknown) superficial laceration over his right forehead, small burn right forearm, (units unknown) (unknown) (unknown) (no date) (unknown) (unknown) surgical interventions, management and increases the chances of poor outcome (units unknown) (unknown) (unknown) (no date) (unknown) (unknown) tamsulosin 0.4 mg capsule 0.4 mg PO DAILY 01/14/23 01/14/23 History (units unknown) (unknown) (unknown) (no date) (unknown) (unknown) than 2 midnights. (units unknown) (unknown) (unknown) (no date) (unknown) (unknown) the patient's curren t medications. (units unknown) (unknown) (unknown) (no date) (unknown) (unknown) this evening on the bathroom floor confused, covered in multiple injuries with (units unknown) (unknown) (unknown) (no date) (unknown) (unknown) to encephalopathy. E D reported patient had an episode of atrial fibrillation (units unknown) (unknown) (unknown) (no date) (unknown) (unknown) to kill himself to the medics and when asked in ED he ' stated he did want to (units unknown) (unknown) (unknown) (no date) (unknown) (unknown) to obesity as it relates to chronic illnesses:, and acute illness. The (units unknown) (unknown) (unknown) (no date) (unknown) (unknown) wave changes. Chest x-ray negative, C-spine negative, pelvic x-ray negative, (units unknown) (unknown) (unknown) (no date) (unknown) (unknown) wheezes, rhonchi, or rales. (units unknown) (unknown) (unknown) (no date) (unknown) (unknown) when or if he is taken his medication. He did make statements that he wanted (units unknown) (unknown) (unknown) (no date) (unknown) (unknown) which metoprolol was given and quickly resolved. (units unknown) (unknown) Result panel 246 (unknown) (no date) (unknown) (unknown) (no value) (units unknown) (unknown) (unknown) (no date) (unknown) (unknown) (U-100) Insulin) (units unknown) (unknown) (unknown) (no date) (unknown) (unknown) (past 8 hours): (units unknown) (unknown) (unknown) (no date) (unknown) (unknown) -A1c ordered (units unknown) (unknown) (unknown) (no date) (unknown) (unknown) -AST 87, ALT 88, alk-phos 144, H+H 12.3/36.9, (units unknown) (unknown) (unknown) (no date) (unknown) (unknown) -BMI 28.9 (units unknown) (unknown) (unknown) (no date) (unknown) (unknown) -CT of abdomen/pelvi s multiple remote left rib fractures, left scapula fracture, (units unknown) (unknown) (unknown) (no date) (unknown) (unknown) -Chest x-ray negative, C-spine negative, pelvic x-ray negative, head CT negative (units unknown) (unknown) (unknown) (no date) (unknown) (unknown) -EKG sinus rhythm rate 72 QTC 499, without ST or T-wave changes. (units unknown) (unknown) (unknown) (no date) (unknown) (unknown) -COPY LATHE TENDER Consult (units unknown) (unknown) (unknown) (no date) (unknown) (unknown) -PT/OT consult ordered (units unknown) (unknown) (unknown) (no date) (unknown) (unknown) -brain MR ordered fo r tomorrow--holding Lovenox until after MR results, risk of (units unknown) (unknown) (unknown) (no date) (unknown) (unknown) -continue Flomax (units unknown) (unknown) (unknown) (no date) (unknown) (unknown) -continue Lantus 20 units q.h.s., high-dose sliding scale (units unknown) (unknown) (unknown) (no date) (unknown) (unknown) -continue Lipitor (units unknown) (unknown) (unknown) (no date) (unknown) (unknown) -continue lisinopril , propranolol-holding Lasix due to hypovolemic state (units unknown) (unknown) (unknown) (no date) (unknown) (unknown) -dietary consult ordered regarding nutritional education and information for (units unknown) (unknown) (unknown) (no date) (unknown) (unknown) -found down by EMS (units unknown) (unknown) (unknown) (no date) (unknown) (unknown) -given 60 mg IV dose tonight, will initiate Day#1 64mg QID, Day#2 TID, Day#3BID, (units unknown) (unknown) (unknown) (no date) (unknown) (unknown) -initial ETOH 308, repeat 91 we will continue to trend (units unknown) (unknown) (unknown) (no date) (unknown) (unknown) -initial blood sugar 344, repeat 254-no gap, no DKA (units unknown) (unknown) (unknown) (no date) (unknown) (unknown) -lives alone, permanently disabled (units unknown) (unknown) (unknown) (no date) (unknown) (unknown) -neuro checks, stric t fall precaution, monitor for bleeding, trend H+H-H+H (units unknown) (unknown) (unknown) (no date) (unknown) (unknown) -patient admitted under CIWA protocol (units unknown) (unknown) (unknown) (no date) (unknown) (unknown) -patient admitted under diabetic protocols, BS checks a.c. HS (units unknown) (unknown) (unknown) (no date) (unknown) (unknown) -patient demonstrate d atrial fibrillation while in the ED was given 1 dose of (units unknown) (unknown) (unknown) (no date) (unknown) (unknown) -patient has lumbar InterStim in place, and Dilaudid pain pump in left abdomen (units unknown) (unknown) (unknown) (no date) (unknown) (unknown) -patient to be monitored on tele-no documented history of AFib. (units unknown) (unknown) (unknown) (no date) (unknown) (unknown) -rehydration NS at 100 cc/HR (units unknown) (unknown) (unknown) (no date) (unknown) (unknown) -seizure precautions (units unknown) (unknown) (unknown) (no date) (unknown) (unknown) -the patient is at much higher risk for medical and surgical complications due (units unknown) (unknown) (unknown) (no date) (unknown) (unknown) -tox screen is positive for opiates and benzos (units unknown) (unknown) (unknown) (no date) (unknown) (unknown) -unclear if this was secondary to alcohol abuse trauma uncontrolled diabetes. (units unknown) (unknown) (unknown) (no date) (unknown) (unknown) -was given phenobarbital loading dose in ED, (units unknown) (unknown) (unknown) (no date) (unknown) (unknown) -will trend ETOH, ordered ammonia, monitor electrolytes (units unknown) (unknown) (unknown) (no date) (unknown) (unknown) [id number] (units unknown) (unknown) (unknown) (no date) (unknown) (unknown) 01/14/23 01/14/23 01/14/23 (units unknown) (unknown) (unknown) (no date) (unknown) (unknown) 01/14/23 10:45 (units unknown) (unknown) (unknown) (no date) (unknown) (unknown) 01/14/23 (units unknown) (unknown) (unknown) (no date) (unknown) (unknown) 01/15/23 0303 (units unknown) (unknown) (unknown) (no date) (unknown) (unknown) 1. Found down, fall, with head injury, and encephalopathy, acute, present on (units unknown) (unknown) (unknown) (no date) (unknown) (unknown) 10:45 10:45 10:45 (units unknown) (unknown) (unknown) (no date) (unknown) (unknown) 10:45 11:23 13:48 (units unknown) (unknown) (unknown) (no date) (unknown) (unknown) 12.3/36.9, (units unknown) (unknown) (unknown) (no date) (unknown) (unknown) 14:09 14:09 15:25 (units unknown) (unknown) (unknown) (no date) (unknown) (unknown) 15:00 01/14/23 (units unknown) (unknown) (unknown) (no date) (unknown) (unknown) 15:02 01/14/23 (units unknown) (unknown) (unknown) (no date) (unknown) (unknown) 15:02 (units unknown) (unknown) (unknown) (no date) (unknown) (unknown) 15:30 01/14/23 (units unknown) (unknown) (unknown) (no date) (unknown) (unknown) 16:00 01/14/23 (units unknown) (unknown) (unknown) (no date) (unknown) (unknown) 16:00 (units unknown) (unknown) (unknown) (no date) (unknown) (unknown) 16:30 01/14/23 (units unknown) (unknown) (unknown) (no date) (unknown) (unknown) 17:00 01/14/23 (units unknown) (unknown) (unknown) (no date) (unknown) (unknown) 17:00 (units unknown) (unknown) (unknown) (no date) (unknown) (unknown) 17:30 01/14/23 (units unknown) (unknown) (unknown) (no date) (unknown) (unknown) 17:30 (units unknown) (unknown) (unknown) (no date) (unknown) (unknown) 18:00 01/14/23 (units unknown) (unknown) (unknown) (no date) (unknown) (unknown) 18:15 (units unknown) (unknown) (unknown) (no date) (unknown) (unknown) 18:30 01/14/23 (units unknown) (unknown) (unknown) (no date) (unknown) (unknown) 18:30 (units unknown) (unknown) (unknown) (no date) (unknown) (unknown) 19:00 01/14/23 (units unknown) (unknown) (unknown) (no date) (unknown) (unknown) 19:15 01/14/23 (units unknown) (unknown) (unknown) (no date) (unknown) (unknown) 19:15 (units unknown) (unknown) (unknown) (no date) (unknown) (unknown) 19:20 01/14/23 (units unknown) (unknown) (unknown) (no date) (unknown) (unknown) 19:20 (units unknown) (unknown) (unknown) (no date) (unknown) (unknown) 19:25 01/14/23 (units unknown) (unknown) (unknown) (no date) (unknown) (unknown) 19:30 01/14/23 (units unknown) (unknown) (unknown) (no date) (unknown) (unknown) 19:30 (units unknown) (unknown) (unknown) (no date) (unknown) (unknown) 19:34 01/14/23 (units unknown) (unknown) (unknown) (no date) (unknown) (unknown) 19:35 01/14/23 (units unknown) (unknown) (unknown) (no date) (unknown) (unknown) 19:35 (units unknown) (unknown) (unknown) (no date) (unknown) (unknown) 19:40 01/14/23 (units unknown) (unknown) (unknown) (no date) (unknown) (unknown) 19:40 (units unknown) (unknown) (unknown) (no date) (unknown) (unknown) 19:45 01/14/23 (units unknown) (unknown) (unknown) (no date) (unknown) (unknown) 19:50 01/14/23 (units unknown) (unknown) (unknown) (no date) (unknown) (unknown) 19:50 (units unknown) (unknown) (unknown) (no date) (unknown) (unknown) 19:55 01/14/23 (units unknown) (unknown) (unknown) (no date) (unknown) (unknown) 19:55 (units unknown) (unknown) (unknown) (no date) (unknown) (unknown) 2. Alcohol abuse, acute on chronic, alcohol intoxication, acute, present on (units unknown) (unknown) (unknown) (no date) (unknown) (unknown) 20:00 01/14/23 (units unknown) (unknown) (unknown) (no date) (unknown) (unknown) 20:05 01/14/23 (units unknown) (unknown) (unknown) (no date) (unknown) (unknown) 20:05 (units unknown) (unknown) (unknown) (no date) (unknown) (unknown) 20:30 01/14/23 (units unknown) (unknown) (unknown) (no date) (unknown) (unknown) 20:30 (units unknown) (unknown) (unknown) (no date) (unknown) (unknown) 21:00 01/14/23 (units unknown) (unknown) (unknown) (no date) (unknown) (unknown) 21:30 01/14/23 (units unknown) (unknown) (unknown) (no date) (unknown) (unknown) 21:30 (units unknown) (unknown) (unknown) (no date) (unknown) (unknown) 22:00 01/14/23 (units unknown) (unknown) (unknown) (no date) (unknown) (unknown) 22:25 (units unknown) (unknown) (unknown) (no date) (unknown) (unknown) 3. Atrial fibrillation, acute, present on admission-resolved (units unknown) (unknown) (unknown) (no date) (unknown) (unknown) 4. Insulin-dependent type 1 diabetes with associated dyslipidemia, (units unknown) (unknown) (unknown) (no date) (unknown) (unknown) 5. Hypertension, essential, present on admission (units unknown) (unknown) (unknown) (no date) (unknown) (unknown) 6. Chronic low back pain, chronic, present on admission (units unknown) (unknown) (unknown) (no date) (unknown) (unknown) 7. BPH, chronic, present on admission (units unknown) (unknown) (unknown) (no date) (unknown) (unknown) 8. Overweight, moderate, acute on chronic, present on admission (units unknown) (unknown) (unknown) (no date) (unknown) (unknown) AGE 12YR (units unknown) (unknown) (unknown) (no date) (unknown) (unknown) ALT 88 H (units unknown) (unknown) (unknown) (no date) (unknown) (unknown) ALT (units unknown) (unknown) (unknown) (no date) (unknown) (unknown) APTT 34 (units unknown) (unknown) (unknown) (no date) (unknown) (unknown) APTT (units unknown) (unknown) (unknown) (no date) (unknown) (unknown) AST 87 H (units unknown) (unknown) (unknown) (no date) (unknown) (unknown) AST (units unknown) (unknown) (unknown) (no date) (unknown) (unknown) Abdomen: Soft nontender, negative for organomegaly, or masses. Bowel sounds (units unknown) (unknown) (unknown) (no date) (unknown) (unknown) Age/Sex: 53 / M (units unknown) (unknown) (unknown) (no date) (unknown) (unknown) Albumin 4.0 (units unknown) (unknown) (unknown) (no date) (unknown) (unknown) Albumin (units unknown) (unknown) (unknown) (no date) (unknown) (unknown) Albumin/Globulin Ratio 1.3 (units unknown) (unknown) (unknown) (no date) (unknown) (unknown) Albumin/Globulin Ratio (units unknown) (unknown) (unknown) (no date) (unknown) (unknown) Alcohol intoxication (units unknown) (unknown) (unknown) (no date) (unknown) (unknown) Alkaline Phosphatase 146 H (units unknown) (unknown) (unknown) (no date) (unknown) (unknown) Alkaline Phosphatase (units unknown) (unknown) (unknown) (no date) (unknown) (unknown) Allergies (units unknown) (unknown) (unknown) (no date) (unknown) (unknown) Allergy/AdvReac Type Severity Reaction Status Date / Time (units unknown) (unknown) (unknown) (no date) (unknown) (unknown) Antibody Screen Negative (units unknown) (unknown) (unknown) (no date) (unknown) (unknown) Antibody Screen (units unknown) (unknown) (unknown) (no date) (unknown) (unknown) Assessment + Plan narrative: (units unknown) (unknown) (unknown) (no date) (unknown) (unknown) Assessment + Plan (units unknown) (unknown) (unknown) (no date) (unknown) (unknown) BPH (benign prostati c hyperplasia) (units unknown) (unknown) (unknown) (no date) (unknown) (unknown) BUN 8 L (units unknown) (unknown) (unknown) (no date) (unknown) (unknown) BUN (units unknown) (unknown) (unknown) (no date) (unknown) (unknown) BUN/Creatinine Ratio 19.0 (units unknown) (unknown) (unknown) (no date) (unknown) (unknown) BUN/Creatinine Ratio (units unknown) (unknown) (unknown) (no date) (unknown) (unknown) BURNING' (units unknown) (unknown) (unknown) (no date) (unknown) (unknown) Baso # (Auto) 100 (units unknown) (unknown) (unknown) (no date) (unknown) (unknown) Baso # (Auto) (units unknown) (unknown) (unknown) (no date) (unknown) (unknown) Baso % (Auto) 1.4 (units unknown) (unknown) (unknown) (no date) (unknown) (unknown) Baso % (Auto) (units unknown) (unknown) (unknown) (no date) (unknown) (unknown) Blood Pressure 106/5 2 L 113/56 L (units unknown) (unknown) (unknown) (no date) (unknown) (unknown) Blood Pressure 121/73 (units unknown) (unknown) (unknown) (no date) (unknown) (unknown) Blood Pressure 129/8 0 138/76 (units unknown) (unknown) (unknown) (no date) (unknown) (unknown) Blood Pressure 130/8 2 162/103 H (units unknown) (unknown) (unknown) (no date) (unknown) (unknown) Blood Pressure 132/9 6 H 169/93 H (units unknown) (unknown) (unknown) (no date) (unknown) (unknown) Blood Pressure 137/72 (units unknown) (unknown) (unknown) (no date) (unknown) (unknown) Blood Pressure 137/85 (units unknown) (unknown) (unknown) (no date) (unknown) (unknown) Blood Pressure 138/102 H 130/92 H (units unknown) (unknown) (unknown) (no date) (unknown) (unknown) Blood Pressure 142/8 9 H (units unknown) (unknown) (unknown) (no date) (unknown) (unknown) Blood Pressure 143/9 4 H 141/93 H (units unknown) (unknown) (unknown) (no date) (unknown) (unknown) Blood Pressure 148/8 2 H (units unknown) (unknown) (unknown) (no date) (unknown) (unknown) Blood Pressure 155/9 5 H 124/84 (units unknown) (unknown) (unknown) (no date) (unknown) (unknown) Blood Pressure 158/9 5 H (units unknown) (unknown) (unknown) (no date) (unknown) (unknown) Blood Pressure 172/8 8 H (units unknown) (unknown) (unknown) (no date) (unknown) (unknown) Blood Pressure 175/108 H (units unknown) (unknown) (unknown) (no date) (unknown) (unknown) Blood Pressure (units unknown) (unknown) (unknown) (no date) (unknown) (unknown) Blood Type O Positive (units unknown) (unknown) (unknown) (no date) (unknown) (unknown) Blood Type (units unknown) (unknown) (unknown) (no date) (unknown) (unknown) COVID PCR: Negative (units unknown) (unknown) (unknown) (no date) (unknown) (unknown) Calcium 8.5 (units unknown) (unknown) (unknown) (no date) (unknown) (unknown) Calcium (units unknown) (unknown) (unknown) (no date) (unknown) (unknown) Carbon Dioxide 30 (units unknown) (unknown) (unknown) (no date) (unknown) (unknown) Carbon Dioxide (units unknown) (unknown) (unknown) (no date) (unknown) (unknown) Cardio: regular rate and rhythm without murmur, rubs, or gallops, no carotid (units unknown) (unknown) (unknown) (no date) (unknown) (unknown) Chest: Breathing no nasal flaring, retractions, or tachypneic labored (units unknown) (unknown) (unknown) (no date) (unknown) (unknown) Chief complaint: Trauma (units unknown) (unknown) (unknown) (no date) (unknown) (unknown) Chloride 100 (units unknown) (unknown) (unknown) (no date) (unknown) (unknown) Chloride (units unknown) (unknown) (unknown) (no date) (unknown) (unknown) Chronic low back pain (units unknown) (unknown) (unknown) (no date) (unknown) (unknown) Code status: Full (units unknown) (unknown) (unknown) (no date) (unknown) (unknown) Comment: (units unknown) (unknown) (unknown) (no date) (unknown) (unknown) Congestive heart failure (units unknown) (unknown) (unknown) (no date) (unknown) (unknown) Creatinine 0.42 L (units unknown) (unknown) (unknown) (no date) (unknown) (unknown) Creatinine (units unknown) (unknown) (unknown) (no date) (unknown) (unknown) : 1970 Acct:[id number] (units unknown) (unknown) (unknown) (no date) (unknown) (unknown) DVT/VTE prophylaxis: Holding Lovenox until brain MR completed, SCDs only (units unknown) (unknown) (unknown) (no date) (unknown) (unknown) Date Patient Seen: 01/14/23 (units unknown) (unknown) (unknown) (no date) (unknown) (unknown) Date of Service: 01/14/23 (units unknown) (unknown) (unknown) (no date) (unknown) (unknown) Day#4QD (units unknown) (unknown) (unknown) (no date) (unknown) (unknown) Disposition: Patient admitted to acute care expected length of stay greater (units unknown) (unknown) (unknown) (no date) (unknown) (unknown) Drinks a 5th of vodk a daily (units unknown) (unknown) (unknown) (no date) (unknown) (unknown) ED made multiple attempts to transfer patient for detox, but was refused due to (units unknown) (unknown) (unknown) (no date) (unknown) (unknown) Eos # (Auto) 100 (units unknown) (unknown) (unknown) (no date) (unknown) (unknown) Eos # (Auto) (units unknown) (unknown) (unknown) (no date) (unknown) (unknown) Eos % (Auto) 2.2 (units unknown) (unknown) (unknown) (no date) (unknown) (unknown) Eos % (Auto) (units unknown) (unknown) (unknown) (no date) (unknown) (unknown) Essential hypertension (units unknown) (unknown) (unknown) (no date) (unknown) (unknown) Estimated GFR > 60 (units unknown) (unknown) (unknown) (no date) (unknown) (unknown) Estimated GFR (units unknown) (unknown) (unknown) (no date) (unknown) (unknown) Ethyl Alcohol 308 H (units unknown) (unknown) (unknown) (no date) (unknown) (unknown) Ethyl Alcohol 91 H (units unknown) (unknown) (unknown) (no date) (unknown) (unknown) Ethyl Alcohol (units unknown) (unknown) (unknown) (no date) (unknown) (unknown) Exam Narrative: (units unknown) (unknown) (unknown) (no date) (unknown) (unknown) Exam (units unknown) (unknown) (unknown) (no date) (unknown) (unknown) FEELS LIKE (units unknown) (unknown) (unknown) (no date) (unknown) (unknown) Family History (Updated 01/15/23 @ 02:24 by Genesis Dunn [facility]) (units unknown) (unknown) (unknown) (no date) (unknown) (unknown) Father Diabetes mellitus (units unknown) (unknown) (unknown) (no date) (unknown) (unknown) General: Patient is disheveled, appears chronically ill and unwell, with (units unknown) (unknown) (unknown) (no date) (unknown) (unknown) Globulin 3.2 (units unknown) (unknown) (unknown) (no date) (unknown) (unknown) Globulin (units unknown) (unknown) (unknown) (no date) (unknown) (unknown) Glucose 254 H (units unknown) (unknown) (unknown) (no date) (unknown) (unknown) Glucose (units unknown) (unknown) (unknown) (no date) (unknown) (unknown) HEARING (units unknown) (unknown) (unknown) (no date) (unknown) (unknown) HEENT: Normocephalic , extraocular muscles intact, oral pharynx is clear and (units unknown) (unknown) (unknown) (no date) (unknown) (unknown) HLD, BPH, insulin-dependent diabetes and chronic low back pain tx with InterStim (units unknown) (unknown) (unknown) (no date) (unknown) (unknown) Hct 36.9 L (units unknown) (unknown) (unknown) (no date) (unknown) (unknown) Hct (units unknown) (unknown) (unknown) (no date) (unknown) (unknown) Hgb 12.3 L (units unknown) (unknown) (unknown) (no date) (unknown) (unknown) Hgb (units unknown) (unknown) (unknown) (no date) (unknown) (unknown) History + Physical Report (units unknown) (unknown) (unknown) (no date) (unknown) (unknown) History of Present Illness (units unknown) (unknown) (unknown) (no date) (unknown) (unknown) History of shoulder surgery (units unknown) (unknown) (unknown) (no date) (unknown) (unknown) History (units unknown) (unknown) (unknown) (no date) (unknown) (unknown) Home Medications and Allergies (units unknown) (unknown) (unknown) (no date) (unknown) (unknown) Home Medications (units unknown) (unknown) (unknown) (no date) (unknown) (unknown) Hyperlipidemia due t o type 1 diabetes mellitus (units unknown) (unknown) (unknown) (no date) (unknown) (unknown) I confirmed that the patient's advanced care plan is present, Code status is (units unknown) (unknown) (unknown) (no date) (unknown) (unknown) I have personally reviewed patient's chart notes from PCP, specialists, (units unknown) (unknown) (unknown) (no date) (unknown) (unknown) I have utilized all available immediate resources to obtain, update, or review (units unknown) (unknown) (unknown) (no date) (unknown) (unknown) INR 1.0 (units unknown) (unknown) (unknown) (no date) (unknown) (unknown) INR (units unknown) (unknown) (unknown) (no date) (unknown) (unknown) [address] [address] (units unknown) (unknown) (unknown) (no date) (unknown) (unknown) JVD (units unknown) (unknown) (unknown) (no date) (unknown) (unknown) LOSS AT (units unknown) (unknown) (unknown) (no date) (unknown) (unknown) Laboratory Results - last 24 hr (units unknown) (unknown) (unknown) (no date) (unknown) (unknown) Labs (units unknown) (unknown) (unknown) (no date) (unknown) (unknown) Labs: (units unknown) (unknown) (unknown) (no date) (unknown) (unknown) Lactate 2.1 1.9 (units unknown) (unknown) (unknown) (no date) (unknown) (unknown) Lactate (units unknown) (unknown) (unknown) (no date) (unknown) (unknown) Lipase 109 (units unknown) (unknown) (unknown) (no date) (unknown) (unknown) Lipase (units unknown) (unknown) (unknown) (no date) (unknown) (unknown) Lungs: Auscultation of all lung lopez are clear without adventitious sounds, (units unknown) (unknown) (unknown) (no date) (unknown) (unknown) Lymph # (Auto) 1700 (units unknown) (unknown) (unknown) (no date) (unknown) (unknown) Lymph # (Auto) (units unknown) (unknown) (unknown) (no date) (unknown) (unknown) Lymph % (Auto) 39.1 (units unknown) (unknown) (unknown) (no date) (unknown) (unknown) Lymph % (Auto) (units unknown) (unknown) (unknown) (no date) (unknown) (unknown) MCH 32.5 (units unknown) (unknown) (unknown) (no date) (unknown) (unknown) MCH (units unknown) (unknown) (unknown) (no date) (unknown) (unknown) MCHC 33.5 (units unknown) (unknown) (unknown) (no date) (unknown) (unknown) MCHC (units unknown) (unknown) (unknown) (no date) (unknown) (unknown) MCV 97.1 (units unknown) (unknown) (unknown) (no date) (unknown) (unknown) MCV (units unknown) (unknown) (unknown) (no date) (unknown) (unknown) Medical History (units unknown) (unknown) (unknown) (no date) (unknown) (unknown) Medication Instructions Recorded Confirmed Type (units unknown) (unknown) (unknown) (no date) (unknown) (unknown) Meds (units unknown) (unknown) (unknown) (no date) (unknown) (unknown) Sj Romo is a 53-year-old male with known history of alcohol abuse, HTN, (units unknown) (unknown) (unknown) (no date) (unknown) (unknown) Micro UA Comment Microscopic normal (units unknown) (unknown) (unknown) (no date) (unknown) (unknown) Micro UA Comment (units unknown) (unknown) (unknown) (no date) (unknown) (unknown) [place] # (Auto) 600 (units unknown) (unknown) (unknown) (no date) (unknown) (unknown) [place] # (Auto) (units unknown) (unknown) (unknown) (no date) (unknown) (unknown) [place] % (Auto) 14.9 H (units unknown) (unknown) (unknown) (no date) (unknown) (unknown) [place] % (Auto) (units unknown) (unknown) (unknown) (no date) (unknown) (unknown) Mother Diabetes mellitus (units unknown) (unknown) (unknown) (no date) (unknown) (unknown) Multiple falls (units unknown) (unknown) (unknown) (no date) (unknown) (unknown) Musculoskeletal: Muscle strength and tone appear wasting, no deformity, (units unknown) (unknown) (unknown) (no date) (unknown) (unknown) Narrative (units unknown) (unknown) (unknown) (no date) (unknown) (unknown) Narrative: (units unknown) (unknown) (unknown) (no date) (unknown) (unknown) Neuro: Alert to self , confused, moves all extremities, sensation to touch (units unknown) (unknown) (unknown) (no date) (unknown) (unknown) Neut # (Auto) 1800 (units unknown) (unknown) (unknown) (no date) (unknown) (unknown) Neut # (Auto) (units unknown) (unknown) (unknown) (no date) (unknown) (unknown) Neut % (Auto) 42.4 L (units unknown) (unknown) (unknown) (no date) (unknown) (unknown) Neut % (Auto) (units unknown) (unknown) (unknown) (no date) (unknown) (unknown) Objective (units unknown) (unknown) (unknown) (no date) (unknown) (unknown) Oxygen Delivery Method Room Air (units unknown) (unknown) (unknown) (no date) (unknown) (unknown) Oxygen Delivery Method (units unknown) (unknown) (unknown) (no date) (unknown) (unknown) PFSH (units unknown) (unknown) (unknown) (no date) (unknown) (unknown) PT 11.2 (units unknown) (unknown) (unknown) (no date) (unknown) (unknown) PT (units unknown) (unknown) (unknown) (no date) (unknown) (unknown) Patient will be admitted to the hospital for evaluation of head injury following (units unknown) (unknown) (unknown) (no date) (unknown) (unknown) Patient: Sj Romo MR#: [id number] (units unknown) (unknown) (unknown) (no date) (unknown) (unknown) Plt Count 296 (units unknown) (unknown) (unknown) (no date) (unknown) (unknown) Plt Count (units unknown) (unknown) (unknown) (no date) (unknown) (unknown) Potassium 3.9 (units unknown) (unknown) (unknown) (no date) (unknown) (unknown) Potassium (units unknown) (unknown) (unknown) (no date) (unknown) (unknown) Provider: Genesis Dunn- (units unknown) (unknown) (unknown) (no date) (unknown) (unknown) Psych: Patient has a poor kept appearance, calm inappropriate affect-does not (units unknown) (unknown) (unknown) (no date) (unknown) (unknown) Pulse Oximetry 91 96 (units unknown) (unknown) (unknown) (no date) (unknown) (unknown) Pulse Oximetry 92 (units unknown) (unknown) (unknown) (no date) (unknown) (unknown) Pulse Oximetry 94 94 (units unknown) (unknown) (unknown) (no date) (unknown) (unknown) Pulse Oximetry 94 95 (units unknown) (unknown) (unknown) (no date) (unknown) (unknown) Pulse Oximetry 94 96 (units unknown) (unknown) (unknown) (no date) (unknown) (unknown) Pulse Oximetry 94 (units unknown) (unknown) (unknown) (no date) (unknown) (unknown) Pulse Oximetry 95 95 100 (units unknown) (unknown) (unknown) (no date) (unknown) (unknown) Pulse Oximetry 95 96 (units unknown) (unknown) (unknown) (no date) (unknown) (unknown) Pulse Oximetry 95 (units unknown) (unknown) (unknown) (no date) (unknown) (unknown) Pulse Oximetry 96 94 (units unknown) (unknown) (unknown) (no date) (unknown) (unknown) Pulse Oximetry 96 96 (units unknown) (unknown) (unknown) (no date) (unknown) (unknown) Pulse Oximetry 96 (units unknown) (unknown) (unknown) (no date) (unknown) (unknown) Pulse Rate 156 H (units unknown) (unknown) (unknown) (no date) (unknown) (unknown) Pulse Rate 69 (units unknown) (unknown) (unknown) (no date) (unknown) (unknown) Pulse Rate 71 (units unknown) (unknown) (unknown) (no date) (unknown) (unknown) Pulse Rate 74 101 H (units unknown) (unknown) (unknown) (no date) (unknown) (unknown) Pulse Rate 74 (units unknown) (unknown) (unknown) (no date) (unknown) (unknown) Pulse Rate 75 (units unknown) (unknown) (unknown) (no date) (unknown) (unknown) Pulse Rate 77 (units unknown) (unknown) (unknown) (no date) (unknown) (unknown) Pulse Rate 78 60 57 L (units unknown) (unknown) (unknown) (no date) (unknown) (unknown) Pulse Rate 78 74 (units unknown) (unknown) (unknown) (no date) (unknown) (unknown) Pulse Rate 81 77 (units unknown) (unknown) (unknown) (no date) (unknown) (unknown) Pulse Rate 83 80 (units unknown) (unknown) (unknown) (no date) (unknown) (unknown) Pulse Rate 85 78 168 H (units unknown) (unknown) (unknown) (no date) (unknown) (unknown) Pulse Rate 89 94 H (units unknown) (unknown) (unknown) (no date) (unknown) (unknown) Pulse Rate 93 H 78 (units unknown) (unknown) (unknown) (no date) (unknown) (unknown) Pulse Rate 97 H 96 H (units unknown) (unknown) (unknown) (no date) (unknown) (unknown) RBC 3.80 L (units unknown) (unknown) (unknown) (no date) (unknown) (unknown) RBC (units unknown) (unknown) (unknown) (no date) (unknown) (unknown) RDW 13.2 (units unknown) (unknown) (unknown) (no date) (unknown) (unknown) RDW (units unknown) (unknown) (unknown) (no date) (unknown) (unknown) Respiratory Rate 10 L (units unknown) (unknown) (unknown) (no date) (unknown) (unknown) Respiratory Rate 11 L (units unknown) (unknown) (unknown) (no date) (unknown) (unknown) Respiratory Rate 13 13 (units unknown) (unknown) (unknown) (no date) (unknown) (unknown) Respiratory Rate 13 (units unknown) (unknown) (unknown) (no date) (unknown) (unknown) Respiratory Rate 14 14 (units unknown) (unknown) (unknown) (no date) (unknown) (unknown) Respiratory Rate 14 23 (units unknown) (unknown) (unknown) (no date) (unknown) (unknown) Respiratory Rate 14 (units unknown) (unknown) (unknown) (no date) (unknown) (unknown) Respiratory Rate 15 (units unknown) (unknown) (unknown) (no date) (unknown) (unknown) Respiratory Rate 16 (units unknown) (unknown) (unknown) (no date) (unknown) (unknown) Respiratory Rate 18 0 L 17 (units unknown) (unknown) (unknown) (no date) (unknown) (unknown) Respiratory Rate 19 15 (units unknown) (unknown) (unknown) (no date) (unknown) (unknown) Respiratory Rate 19 18 20 (units unknown) (unknown) (unknown) (no date) (unknown) (unknown) Respiratory Rate 24 17 (units unknown) (unknown) (unknown) (no date) (unknown) (unknown) Respiratory Rate (units unknown) (unknown) (unknown) (no date) (unknown) (unknown) Review of Systems (units unknown) (unknown) (unknown) (no date) (unknown) (unknown) SARS-CoV-2 (PCR) Negative (units unknown) (unknown) (unknown) (no date) (unknown) (unknown) SARS-CoV-2 (PCR) (units unknown) (unknown) (unknown) (no date) (unknown) (unknown) Signed By:<Electronically signed by Genesis Dunn> (units unknown) (unknown) (unknown) (no date) (unknown) (unknown) Skin: scabbed superficial laceration over his right forehead, small burn right (units unknown) (unknown) (unknown) (no date) (unknown) (unknown) Smoking Status: Neve r smoker (units unknown) (unknown) (unknown) (no date) (unknown) (unknown) Social History (Updated 01/15/23 @ 02:23 by SOMMER Chairez) (units unknown) (unknown) (unknown) (no date) (unknown) (unknown) Sodium 140 (units unknown) (unknown) (unknown) (no date) (unknown) (unknown) Sodium (units unknown) (unknown) (unknown) (no date) (unknown) (unknown) Solostar U-100 Insulin) (units unknown) (unknown) (unknown) (no date) (unknown) (unknown) Surgical History (units unknown) (unknown) (unknown) (no date) (unknown) (unknown) Surrogate decision maker: Sun Yancey friend (units unknown) (unknown) (unknown) (no date) (unknown) (unknown) Time Patient Seen: 22:42 (units unknown) (unknown) (unknown) (no date) (unknown) (unknown) Total Bilirubin 0.4 (units unknown) (unknown) (unknown) (no date) (unknown) (unknown) Total Bilirubin (units unknown) (unknown) (unknown) (no date) (unknown) (unknown) Total Protein 7.2 (units unknown) (unknown) (unknown) (no date) (unknown) (unknown) Total Protein (units unknown) (unknown) (unknown) (no date) (unknown) (unknown) U Benzodiazepines Scrn Positive H (units unknown) (unknown) (unknown) (no date) (unknown) (unknown) U Benzodiazepines Scrn (units unknown) (unknown) (unknown) (no date) (unknown) (unknown) U Marijuana (THC) Screen Negative (units unknown) (unknown) (unknown) (no date) (unknown) (unknown) U Marijuana (THC) Screen (units unknown) (unknown) (unknown) (no date) (unknown) (unknown) U Methamphetamines Scrn Negative (units unknown) (unknown) (unknown) (no date) (unknown) (unknown) U Methamphetamines Scrn (units unknown) (unknown) (unknown) (no date) (unknown) (unknown) U Opiates 300ng/mL cut Positive H (units unknown) (unknown) (unknown) (no date) (unknown) (unknown) U Opiates 300ng/mL cut (units unknown) (unknown) (unknown) (no date) (unknown) (unknown) U Tricyclic Antidepress Negative (units unknown) (unknown) (unknown) (no date) (unknown) (unknown) U Tricyclic Antidepress (units unknown) (unknown) (unknown) (no date) (unknown) (unknown) Unable to obtain accurate ROS due to encephalopathy-All 12 point systems (units unknown) (unknown) (unknown) (no date) (unknown) (unknown) Ur Amphetamines Screen Negative (units unknown) (unknown) (unknown) (no date) (unknown) (unknown) Ur Amphetamines Screen (units unknown) (unknown) (unknown) (no date) (unknown) (unknown) Ur Barbiturates Screen Negative (units unknown) (unknown) (unknown) (no date) (unknown) (unknown) Ur Barbiturates Screen (units unknown) (unknown) (unknown) (no date) (unknown) (unknown) Ur Culture Indicated ? Cult not indicated (units unknown) (unknown) (unknown) (no date) (unknown) (unknown) Ur Culture Indicated? (units unknown) (unknown) (unknown) (no date) (unknown) (unknown) Ur Leukocyte Esteras e Negative (units unknown) (unknown) (unknown) (no date) (unknown) (unknown) Ur Leukocyte Esterase (units unknown) (unknown) (unknown) (no date) (unknown) (unknown) Ur MDMA Scrn (Ecstasy) Negative (units unknown) (unknown) (unknown) (no date) (unknown) (unknown) Ur MDMA Scrn (Ecstasy) (units unknown) (unknown) (unknown) (no date) (unknown) (unknown) Ur Oxycodone Screen Negative (units unknown) (unknown) (unknown) (no date) (unknown) (unknown) Ur Oxycodone Screen (units unknown) (unknown) (unknown) (no date) (unknown) (unknown) Ur Phencyclidine Scr n Negative (units unknown) (unknown) (unknown) (no date) (unknown) (unknown) Ur Phencyclidine Scrn (units unknown) (unknown) (unknown) (no date) (unknown) (unknown) Ur Specific [place] 1.010 (units unknown) (unknown) (unknown) (no date) (unknown) (unknown) Ur Specific [place] (units unknown) (unknown) (unknown) (no date) (unknown) (unknown) Urine Appearance Clear (units unknown) (unknown) (unknown) (no date) (unknown) (unknown) Urine Appearance (units unknown) (unknown) (unknown) (no date) (unknown) (unknown) Urine Bacteria None seen (units unknown) (unknown) (unknown) (no date) (unknown) (unknown) Urine Bacteria (units unknown) (unknown) (unknown) (no date) (unknown) (unknown) Urine Bilirubin Negative (units unknown) (unknown) (unknown) (no date) (unknown) (unknown) Urine Bilirubin (units unknown) (unknown) (unknown) (no date) (unknown) (unknown) Urine Cocaine Screen Negative (units unknown) (unknown) (unknown) (no date) (unknown) (unknown) Urine Cocaine Screen (units unknown) (unknown) (unknown) (no date) (unknown) (unknown) Urine Color Yellow (units unknown) (unknown) (unknown) (no date) (unknown) (unknown) Urine Color (units unknown) (unknown) (unknown) (no date) (unknown) (unknown) Urine Glucose (UA) 2 + H (units unknown) (unknown) (unknown) (no date) (unknown) (unknown) Urine Glucose (UA) (units unknown) (unknown) (unknown) (no date) (unknown) (unknown) Urine Ketones Negative (units unknown) (unknown) (unknown) (no date) (unknown) (unknown) Urine Ketones (units unknown) (unknown) (unknown) (no date) (unknown) (unknown) Urine Methadone Screen Negative (units unknown) (unknown) (unknown) (no date) (unknown) (unknown) Urine Methadone Screen (units unknown) (unknown) (unknown) (no date) (unknown) (unknown) Urine Nitrate Negative (units unknown) (unknown) (unknown) (no date) (unknown) (unknown) Urine Nitrate (units unknown) (unknown) (unknown) (no date) (unknown) (unknown) Urine Occult Blood Negative (units unknown) (unknown) (unknown) (no date) (unknown) (unknown) Urine Occult Blood (units unknown) (unknown) (unknown) (no date) (unknown) (unknown) Urine Protein Negative (units unknown) (unknown) (unknown) (no date) (unknown) (unknown) Urine Protein (units unknown) (unknown) (unknown) (no date) (unknown) (unknown) Urine RBC None seen (units unknown) (unknown) (unknown) (no date) (unknown) (unknown) Urine RBC (units unknown) (unknown) (unknown) (no date) (unknown) (unknown) Urine Urobilinogen 1.0 (units unknown) (unknown) (unknown) (no date) (unknown) (unknown) Urine Urobilinogen (units unknown) (unknown) (unknown) (no date) (unknown) (unknown) Urine WBC None seen (units unknown) (unknown) (unknown) (no date) (unknown) (unknown) Urine WBC (units unknown) (unknown) (unknown) (no date) (unknown) (unknown) Urine pH 6.5 (units unknown) (unknown) (unknown) (no date) (unknown) (unknown) Urine pH (units unknown) (unknown) (unknown) (no date) (unknown) (unknown) Vital Signs (units unknown) (unknown) (unknown) (no date) (unknown) (unknown) WAS (units unknown) (unknown) (unknown) (no date) (unknown) (unknown) WBC 4.3 L (units unknown) (unknown) (unknown) (no date) (unknown) (unknown) WBC (units unknown) (unknown) (unknown) (no date) (unknown) (unknown) When asked on admit regarding code status patient requested to be a full code, (units unknown) (unknown) (unknown) (no date) (unknown) (unknown) [Embedded Image Not Available] (units unknown) (unknown) (unknown) (no date) (unknown) (unknown) [From BETADINE] FEEL S LIKE (units unknown) (unknown) (unknown) (no date) (unknown) (unknown) [SHELLFISH DERIVED] LIKE IT (units unknown) (unknown) (unknown) (no date) (unknown) (unknown) a fall and encephalopathy, MR, PT and OT evaluation, rehydration and management (units unknown) (unknown) (unknown) (no date) (unknown) (unknown) acute distress at this time. (units unknown) (unknown) (unknown) (no date) (unknown) (unknown) adenopathy, no thyroid enlargement, nontender, no masses palpated. Negative for (units unknown) (unknown) (unknown) (no date) (unknown) (unknown) admission (units unknown) (unknown) (unknown) (no date) (unknown) (unknown) admit patient is unable to state where he is unable to recall how or when he (units unknown) (unknown) (unknown) (no date) (unknown) (unknown) alcohol intake: current (units unknown) (unknown) (unknown) (no date) (unknown) (unknown) and L1/L2 transverse process fracture. (units unknown) (unknown) (unknown) (no date) (unknown) (unknown) and denied suicide ideation. patient is hemodynamically stable pleasant (units unknown) (unknown) (unknown) (no date) (unknown) (unknown) anterior lower extremity, significant deep bruising to lower coccyx area. (units unknown) (unknown) (unknown) (no date) (unknown) (unknown) appear to appreciate severity of injuries and state of health, mental status (units unknown) (unknown) (unknown) (no date) (unknown) (unknown) are present in all 4 quadrants without guarding or rebound, no CVA tenderness. (units unknown) (unknown) (unknown) (no date) (unknown) (unknown) atorvastatin 40 mg tablet 40 mg PO BEDTIME 01/14/23 01/14/23 History (units unknown) (unknown) (unknown) (no date) (unknown) (unknown) attempts to transfer patient for detox, but was refused due to hyperglycemia, (units unknown) (unknown) (unknown) (no date) (unknown) (unknown) attitude thought context and judgment are in appropriate for age. (units unknown) (unknown) (unknown) (no date) (unknown) (unknown) been called to the patient's home several times over the last few days, he was (units unknown) (unknown) (unknown) (no date) (unknown) (unknown) bleed (units unknown) (unknown) (unknown) (no date) (unknown) (unknown) blood and broken glass around him. Patient was seen and evaluated by [facility] in the (units unknown) (unknown) (unknown) (no date) (unknown) (unknown) bruising left abdomen, upper abd, chest, scabbed abrasion to left anterior lower (units unknown) (unknown) (unknown) (no date) (unknown) (unknown) bruit, no cardiac pulsations present. (units unknown) (unknown) (unknown) (no date) (unknown) (unknown) converses easily but is confused. WBC 4.3, H+H 12.3/36.9, initial glucose 344, (units unknown) (unknown) (unknown) (no date) (unknown) (unknown) covered in a variety of multiple injuries in varying degrees healing, a scabbed (units unknown) (unknown) (unknown) (no date) (unknown) (unknown) crepitus, effusions, cyanosis, clubbing or edema present. Full range of motion (units unknown) (unknown) (unknown) (no date) (unknown) (unknown) dextroamphetamine-am p hetamine 20 20 mg PO BID 01/14/23 01/14/23 History (units unknown) (unknown) (unknown) (no date) (unknown) (unknown) diagnostic imaging, and laboratory results. (units unknown) (unknown) (unknown) (no date) (unknown) (unknown) did not answer.? Patient was seen and evaluated by [facility] in the ED made multiple (units unknown) (unknown) (unknown) (no date) (unknown) (unknown) dietary, lifestyle, exercise, and weight changes. (units unknown) (unknown) (unknown) (no date) (unknown) (unknown) diffuse multiple injuries in various stages of healing from head to toe, in no (units unknown) (unknown) (unknown) (no date) (unknown) (unknown) documented and/or surrogate decision maker is listed in the patient's medical (units unknown) (unknown) (unknown) (no date) (unknown) (unknown) elevated QTC on EKG, and encephalopathy. Unable to obtain accurate HPI, ROS due (units unknown) (unknown) (unknown) (no date) (unknown) (unknown) extremities well.? I s conversant but confused.? Patient states he drinks at (units unknown) (unknown) (unknown) (no date) (unknown) (unknown) extremity, significant deep bruising to lower coccyx area. Patient denies (units unknown) (unknown) (unknown) (no date) (unknown) (unknown) fall, head injury, atrial fibrillation, encephalopathy, ETOH abuse/intoxication, (units unknown) (unknown) (unknown) (no date) (unknown) (unknown) fall, head injury, encephalopathy, ETOH abuse/intoxication, hyperglycemia. (units unknown) (unknown) (unknown) (no date) (unknown) (unknown) forearm, bruising left abdomen + upper abd, + chest, scabbed abrasion to left (units unknown) (unknown) (unknown) (no date) (unknown) (unknown) found down this evening on the bathroom floor with broken glass perhaps broken (units unknown) (unknown) (unknown) (no date) (unknown) (unknown) furosemide 20 mg tablet 20 mg PO DAILY 01/14/23 01/14/23 History (units unknown) (unknown) (unknown) (no date) (unknown) (unknown) head CT negative, CT of abdomen/pelvis multiple remote left rib fractures, left (units unknown) (unknown) (unknown) (no date) (unknown) (unknown) household members: none (units unknown) (unknown) (unknown) (no date) (unknown) (unknown) hyperglycemia, acute on chronic, present on admission-uncontrolle d/noncompliant (units unknown) (unknown) (unknown) (no date) (unknown) (unknown) hyperglycemia, elevated QTC on EKG, and encephalopathy. Patient admitted for (units unknown) (unknown) (unknown) (no date) (unknown) (unknown) hyperglycemia. (units unknown) (unknown) (unknown) (no date) (unknown) (unknown) insulin glargine 100 unit/mL (3 20 unit SUBCUT BEDTIME 01/14/23 01/14/23 History (units unknown) (unknown) (unknown) (no date) (unknown) (unknown) insulin lispro 100 unit/mL See Rx Instructions .Route .COMPLEX 01/14/23 01/14/23 (units unknown) (unknown) (unknown) (no date) (unknown) (unknown) intact radial and pedal pulses are normal. (units unknown) (unknown) (unknown) (no date) (unknown) (unknown) intact, no gross deficits noted of cranial nerves. (units unknown) (unknown) (unknown) (no date) (unknown) (unknown) kill himself when asked why he did not answer'? When asked if he has a plan he (units unknown) (unknown) (unknown) (no date) (unknown) (unknown) least a 5th of Vodka daily, denies tobacco or illicit.? Patient is unable to (units unknown) (unknown) (unknown) (no date) (unknown) (unknown) losartan 100 mg tablet 100 mg PO DAILY 01/14/23 01/14/23 History (units unknown) (unknown) (unknown) (no date) (unknown) (unknown) mL) subcutaneous pen (Lantus (units unknown) (unknown) (unknown) (no date) (unknown) (unknown) metoprolol at which time it resolved (units unknown) (unknown) (unknown) (no date) (unknown) (unknown) mg tablet (units unknown) (unknown) (unknown) (no date) (unknown) (unknown) mirror and blood at the scene. Patient is confused, but redirectable. During (units unknown) (unknown) (unknown) (no date) (unknown) (unknown) mucous membranes are dry. Neck is supple and symmetric, trachea is midline, no (units unknown) (unknown) (unknown) (no date) (unknown) (unknown) negative, tox screen is positive for opiates and benzos, initial ETOH 308, (units unknown) (unknown) (unknown) (no date) (unknown) (unknown) obtain these injurie s in the events that led him to the hospital today. He is (units unknown) (unknown) (unknown) (no date) (unknown) (unknown) of alcohol withdrawal, monitoring for reoccurrence of AFib, and correct blood (units unknown) (unknown) (unknown) (no date) (unknown) (unknown) pain, no shortness o f breath, no GI or urinary symptoms.? He is moving all his (units unknown) (unknown) (unknown) (no date) (unknown) (unknown) patient's obesity increases the difficulty and complexity of medical and/or (units unknown) (unknown) (unknown) (no date) (unknown) (unknown) penicillin G [PENICILLIN G] Allergy Unknown LEFT EAR Verified 07/27/18 10:10 (units unknown) (unknown) (unknown) (no date) (unknown) (unknown) povidone-iodine Allergy Unknown 'SKIN Verified 07/27/18 10:10 (units unknown) (unknown) (unknown) (no date) (unknown) (unknown) propranolol 20 mg tablet 20 mg PO BID 01/14/23 01/14/23 History (units unknown) (unknown) (unknown) (no date) (unknown) (unknown) recall what his medications are he believes he is on insulins but he has no idea (units unknown) (unknown) (unknown) (no date) (unknown) (unknown) record. (units unknown) (unknown) (unknown) (no date) (unknown) (unknown) repeat 254, AST 87, ALT 88, alk-phos 144, UA negative, lactate negative, lipase (units unknown) (unknown) (unknown) (no date) (unknown) (unknown) repeat 91. COVID negative. EKG sinus rhythm rate 72 QTC 499, without ST or T (units unknown) (unknown) (unknown) (no date) (unknown) (unknown) reviewed with the patient and are negative except otherwise documented. (units unknown) (unknown) (unknown) (no date) (unknown) (unknown) scapula fracture, an d L1/L2 transverse process fracture. Patient admitted for (units unknown) (unknown) (unknown) (no date) (unknown) (unknown) shellfish derived Allergy Unknown 'SKIN FELT Verified 07/27/18 10:10 (units unknown) (unknown) (unknown) (no date) (unknown) (unknown) soap [From BETADINE] Allergy Unknown 'SKIN Verified 07/27/18 10:10 (units unknown) (unknown) (unknown) (no date) (unknown) (unknown) stimulator in back lumbar + Dilaudid pain pump in abdomen found down by EMS (units unknown) (unknown) (unknown) (no date) (unknown) (unknown) stimulator in back lumbar + Dilaudid pain pump in abdomen.? EMS had apparently (units unknown) (unknown) (unknown) (no date) (unknown) (unknown) subcutaneous pen (Humalog KwikPen (units unknown) (unknown) (unknown) (no date) (unknown) (unknown) such as morbidity an d mortality as well as impaired wound healing. (units unknown) (unknown) (unknown) (no date) (unknown) (unknown) sugars. (units unknown) (unknown) (unknown) (no date) (unknown) (unknown) superficial laceration over his right forehead, small burn right forearm, (units unknown) (unknown) (unknown) (no date) (unknown) (unknown) surgical interventions, management and increases the chances of poor outcome (units unknown) (unknown) (unknown) (no date) (unknown) (unknown) tamsulosin 0.4 mg capsule 0.4 mg PO DAILY 01/14/23 01/14/23 History (units unknown) (unknown) (unknown) (no date) (unknown) (unknown) than 2 midnights. (units unknown) (unknown) (unknown) (no date) (unknown) (unknown) the patient's curren t medications. (units unknown) (unknown) (unknown) (no date) (unknown) (unknown) this evening on the bathroom floor confused, covered in multiple injuries with (units unknown) (unknown) (unknown) (no date) (unknown) (unknown) to encephalopathy. E D reported patient had an episode of atrial fibrillation (units unknown) (unknown) (unknown) (no date) (unknown) (unknown) to kill himself to the medics and when asked in ED he ' stated he did want to (units unknown) (unknown) (unknown) (no date) (unknown) (unknown) to obesity as it relates to chronic illnesses:, and acute illness. The (units unknown) (unknown) (unknown) (no date) (unknown) (unknown) wave changes. Chest x-ray negative, C-spine negative, pelvic x-ray negative, (units unknown) (unknown) (unknown) (no date) (unknown) (unknown) wheezes, rhonchi, or rales. (units unknown) (unknown) (unknown) (no date) (unknown) (unknown) when or if he is taken his medication. He did make statements that he wanted (units unknown) (unknown) (unknown) (no date) (unknown) (unknown) which metoprolol was given and quickly resolved. (units unknown) (unknown) Result panel 247 (unknown) (no date) (unknown) (unknown) 0 /ul (unknown) (unknown) (no date) (unknown) (unknown) 0 /ul (unknown) (unknown) (no date) (unknown) (unknown) 0.0 % (unknown) (unknown) (no date) (unknown) (unknown) 0.3 % (unknown) (unknown) (no date) (unknown) (unknown) 1000 /ul (unknown) (unknown) (no date) (unknown) (unknown) 12.3 g/dl (unknown) (unknown) (no date) (unknown) (unknown) 1200 /ul (unknown) (unknown) (no date) (unknown) (unknown) 13.2 % (unknown) (unknown) (no date) (unknown) (unknown) 14.4 % (unknown) (unknown) (no date) (unknown) (unknown) 17.7 % (unknown) (unknown) (no date) (unknown) (unknown) 3.72 x10 6/ul (unknown) (unknown) (no date) (unknown) (unknown) 320 x10 3/ul (unknown) (unknown) (no date) (unknown) (unknown) 33.0 pg (unknown) (unknown) (no date) (unknown) (unknown) 34.4 % (unknown) (unknown) (no date) (unknown) (unknown) 35.7 % (unknown) (unknown) (no date) (unknown) (unknown) 4600 /ul (unknown) (unknown) (no date) (unknown) (unknown) 6.8 x10 3/ul (unknown) (unknown) (no date) (unknown) (unknown) 67.6 % (unknown) (unknown) (no date) (unknown) (unknown) 95.9 fl (unknown) Result panel 248 (unknown) (no date) (unknown) (unknown) > 60 ml/min (unknown) (unknown) (no date) (unknown) (unknown) > 60 ml/min (unknown) (unknown) (no date) (unknown) (unknown) < 10 mg/dl (unknown) (unknown) (no date) (unknown) (unknown) < 10 mg/dl (unknown) (unknown) (no date) (unknown) (unknown) 0.46 mg/dl (unknown) (unknown) (no date) (unknown) (unknown) 0.7 mg/dl (unknown) (unknown) (no date) (unknown) (unknown) 1.3 (units unknown) (unknown) (unknown) (no date) (unknown) (unknown) 1.5 mg/dl (unknown) (unknown) (no date) (unknown) (unknown) 131 mmol/l (unknown) (unknown) (no date) (unknown) (unknown) 135 u/l (unknown) (unknown) (no date) (unknown) (unknown) 16 mg/dl (unknown) (unknown) (no date) (unknown) (unknown) 2.9 g/dl (unknown) (unknown) (no date) (unknown) (unknown) 262 mg/dl (unknown) (unknown) (no date) (unknown) (unknown) 262 mg/dl (unknown) (unknown) (no date) (unknown) (unknown) 3.9 g/dl (unknown) (unknown) (no date) (unknown) (unknown) 34 mmol/l (unknown) (unknown) (no date) (unknown) (unknown) 34.8 (units unknown) (unknown) (unknown) (no date) (unknown) (unknown) 399 u/l (unknown) (unknown) (no date) (unknown) (unknown) 4.5 mmol/l (unknown) (unknown) (no date) (unknown) (unknown) 6.8 g/dl (unknown) (unknown) (no date) (unknown) (unknown) 75 iu/l (unknown) (unknown) (no date) (unknown) (unknown) 78 iu/l (unknown) (unknown) (no date) (unknown) (unknown) 8.8 mg/dl (unknown) (unknown) (no date) (unknown) (unknown) 92 mmol/l (unknown) Result panel 249 (unknown) (no date) (unknown) (unknown) 1.1 (units unknown) (unknown) (unknown) (no date) (unknown) (unknown) 12.4 seconds (unknown) Result panel 250 (unknown) (no date) (unknown) (unknown) (no value) (units unknown) (unknown) (unknown) (no date) (unknown) (unknown) (past 8 hours): (units unknown) (unknown) (unknown) (no date) (unknown) (unknown) [id number] (units unknown) (unknown) (unknown) (no date) (unknown) (unknown) 01/14/23 01/14/23 01/14/23 (units unknown) (unknown) (unknown) (no date) (unknown) (unknown) 01/14/23 01/15/23 01/15/23 (units unknown) (unknown) (unknown) (no date) (unknown) (unknown) 01/15/23 01/15/23 01/15/23 (units unknown) (unknown) (unknown) (no date) (unknown) (unknown) 01/15/23 08:55 (units unknown) (unknown) (unknown) (no date) (unknown) (unknown) 01/15/23 (units unknown) (unknown) (unknown) (no date) (unknown) (unknown) 08:00 01/15/23 (units unknown) (unknown) (unknown) (no date) (unknown) (unknown) 08:55 09:00 09:00 (units unknown) (unknown) (unknown) (no date) (unknown) (unknown) 11:58 (units unknown) (unknown) (unknown) (no date) (unknown) (unknown) 15:25 18:15 23:10 (units unknown) (unknown) (unknown) (no date) (unknown) (unknown) 23:10 08:55 08:55 (units unknown) (unknown) (unknown) (no date) (unknown) (unknown) 23:10 23:10 23:10 (units unknown) (unknown) (unknown) (no date) (unknown) (unknown) 53-year-old male wit h known history of alcohol abuse, HTN, HLD, BPH, insulin (units unknown) (unknown) (unknown) (no date) (unknown) (unknown) ABD: Soft, NT/ND, BT present in all 4 quadrants, no organomegaly or masses (units unknown) (unknown) (unknown) (no date) (unknown) (unknown) ALT 93 H 78 H (units unknown) (unknown) (unknown) (no date) (unknown) (unknown) ALT (units unknown) (unknown) (unknown) (no date) (unknown) (unknown) AST 96 H 75 H (units unknown) (unknown) (unknown) (no date) (unknown) (unknown) AST (units unknown) (unknown) (unknown) (no date) (unknown) (unknown) Age/Sex: 53 / M (units unknown) (unknown) (unknown) (no date) (unknown) (unknown) Albumin 4.0 3.9 (units unknown) (unknown) (unknown) (no date) (unknown) (unknown) Albumin (units unknown) (unknown) (unknown) (no date) (unknown) (unknown) Albumin/Globulin Ratio 1.3 1.3 (units unknown) (unknown) (unknown) (no date) (unknown) (unknown) Albumin/Globulin Ratio (units unknown) (unknown) (unknown) (no date) (unknown) (unknown) Alcohol intoxication (units unknown) (unknown) (unknown) (no date) (unknown) (unknown) Alkaline Phosphatase 139 H 135 H (units unknown) (unknown) (unknown) (no date) (unknown) (unknown) Alkaline Phosphatase (units unknown) (unknown) (unknown) (no date) (unknown) (unknown) Ammonia < 9 L (units unknown) (unknown) (unknown) (no date) (unknown) (unknown) Ammonia (units unknown) (unknown) (unknown) (no date) (unknown) (unknown) BPH (benign prostati c hyperplasia) (units unknown) (unknown) (unknown) (no date) (unknown) (unknown) BUN 13 16 (units unknown) (unknown) (unknown) (no date) (unknown) (unknown) BUN (units unknown) (unknown) (unknown) (no date) (unknown) (unknown) BUN/Creatinine Ratio 25.0 H 34.8 H (units unknown) (unknown) (unknown) (no date) (unknown) (unknown) BUN/Creatinine Ratio (units unknown) (unknown) (unknown) (no date) (unknown) (unknown) Baso # (Auto) 0 (units unknown) (unknown) (unknown) (no date) (unknown) (unknown) Baso # (Auto) (units unknown) (unknown) (unknown) (no date) (unknown) (unknown) Baso % (Auto) 0.3 (units unknown) (unknown) (unknown) (no date) (unknown) (unknown) Baso % (Auto) (units unknown) (unknown) (unknown) (no date) (unknown) (unknown) Blood Pressure 155/9 2 H 119/77 (units unknown) (unknown) (unknown) (no date) (unknown) (unknown) Brother notes that a welfare check was done yesterday and he was found to be at (units unknown) (unknown) (unknown) (no date) (unknown) (unknown) Brother reports 6 prior suicide attempts. He says that Sj has prior dx of (units unknown) (unknown) (unknown) (no date) (unknown) (unknown) CHEST: Respiratory excursions symmetric, CTAB (units unknown) (unknown) (unknown) (no date) (unknown) (unknown) CV: RRR, no M/R/G (units unknown) (unknown) (unknown) (no date) (unknown) (unknown) Calcium 8.7 8.8 (units unknown) (unknown) (unknown) (no date) (unknown) (unknown) Calcium (units unknown) (unknown) (unknown) (no date) (unknown) (unknown) Carbon Dioxide 29 34 H (units unknown) (unknown) (unknown) (no date) (unknown) (unknown) Carbon Dioxide (units unknown) (unknown) (unknown) (no date) (unknown) (unknown) Chloride 93 L 92 L (units unknown) (unknown) (unknown) (no date) (unknown) (unknown) Chloride (units unknown) (unknown) (unknown) (no date) (unknown) (unknown) Chronic low back pain (units unknown) (unknown) (unknown) (no date) (unknown) (unknown) Congestive heart failure (units unknown) (unknown) (unknown) (no date) (unknown) (unknown) Creatinine 0.52 L 0.46 L (units unknown) (unknown) (unknown) (no date) (unknown) (unknown) Creatinine (units unknown) (unknown) (unknown) (no date) (unknown) (unknown) : 1970 Acct:[id number] (units unknown) (unknown) (unknown) (no date) (unknown) (unknown) Date of Service: 01/14/23 (units unknown) (unknown) (unknown) (no date) (unknown) (unknown) Deep Vein Thrombosis/Pulmonary Embolism Present on Admission: No (units unknown) (unknown) (unknown) (no date) (unknown) (unknown) EXTR: warm, well perfused, no C/C/E, scattered bruising noted to his arms, (units unknown) (unknown) (unknown) (no date) (unknown) (unknown) Eos # (Auto) 0 (units unknown) (unknown) (unknown) (no date) (unknown) (unknown) Eos # (Auto) (units unknown) (unknown) (unknown) (no date) (unknown) (unknown) Eos % (Auto) 0.0 L (units unknown) (unknown) (unknown) (no date) (unknown) (unknown) Eos % (Auto) 0.1 L (units unknown) (unknown) (unknown) (no date) (unknown) (unknown) Eos % (Auto) (units unknown) (unknown) (unknown) (no date) (unknown) (unknown) Essential hypertension (units unknown) (unknown) (unknown) (no date) (unknown) (unknown) Estimated GFR > 60 > 60 (units unknown) (unknown) (unknown) (no date) (unknown) (unknown) Estimated GFR (units unknown) (unknown) (unknown) (no date) (unknown) (unknown) Ethyl Alcohol < 10 (units unknown) (unknown) (unknown) (no date) (unknown) (unknown) Ethyl Alcohol 91 H (units unknown) (unknown) (unknown) (no date) (unknown) (unknown) Ethyl Alcohol (units unknown) (unknown) (unknown) (no date) (unknown) (unknown) Exam Narrative: (units unknown) (unknown) (unknown) (no date) (unknown) (unknown) Exam (units unknown) (unknown) (unknown) (no date) (unknown) (unknown) Family History (Updated 01/15/23 @ 02:24 by Genesis Dunn [facility]) (units unknown) (unknown) (unknown) (no date) (unknown) (unknown) Father Diabetes mellitus (units unknown) (unknown) (unknown) (no date) (unknown) (unknown) GEN: Alert and oriented x 3, anxious and tearful, flat affect (units unknown) (unknown) (unknown) (no date) (unknown) (unknown) GGT 399 H (units unknown) (unknown) (unknown) (no date) (unknown) (unknown) GGT (units unknown) (unknown) (unknown) (no date) (unknown) (unknown) Globulin 3.1 2.9 (units unknown) (unknown) (unknown) (no date) (unknown) (unknown) Globulin (units unknown) (unknown) (unknown) (no date) (unknown) (unknown) Glucose 357 H D 262 H (units unknown) (unknown) (unknown) (no date) (unknown) (unknown) Glucose (units unknown) (unknown) (unknown) (no date) (unknown) (unknown) HEENT:NC, Face symmetric (units unknown) (unknown) (unknown) (no date) (unknown) (unknown) Hct 35.7 L (units unknown) (unknown) (unknown) (no date) (unknown) (unknown) Hct 37.4 L (units unknown) (unknown) (unknown) (no date) (unknown) (unknown) Hct (units unknown) (unknown) (unknown) (no date) (unknown) (unknown) Hgb 12.3 L (units unknown) (unknown) (unknown) (no date) (unknown) (unknown) Hgb 12.4 L (units unknown) (unknown) (unknown) (no date) (unknown) (unknown) Hgb (units unknown) (unknown) (unknown) (no date) (unknown) (unknown) History of shoulder surgery (units unknown) (unknown) (unknown) (no date) (unknown) (unknown) Hyperlipidemia due t o type 1 diabetes mellitus (units unknown) (unknown) (unknown) (no date) (unknown) (unknown) INR 1.1 (units unknown) (unknown) (unknown) (no date) (unknown) (unknown) INR (units unknown) (unknown) (unknown) (no date) (unknown) (unknown) Interval history: (units unknown) (unknown) (unknown) (no date) (unknown) (unknown) [address] [address] (units unknown) (unknown) (unknown) (no date) (unknown) (unknown) Laboratory Results - last 24 hr (units unknown) (unknown) (unknown) (no date) (unknown) (unknown) Labs (units unknown) (unknown) (unknown) (no date) (unknown) (unknown) Labs: (units unknown) (unknown) (unknown) (no date) (unknown) (unknown) Lymph # (Auto) 1200 (units unknown) (unknown) (unknown) (no date) (unknown) (unknown) Lymph # (Auto) 600 L (units unknown) (unknown) (unknown) (no date) (unknown) (unknown) Lymph # (Auto) (units unknown) (unknown) (unknown) (no date) (unknown) (unknown) Lymph % (Auto) 13.7 L D (units unknown) (unknown) (unknown) (no date) (unknown) (unknown) Lymph % (Auto) 17.7 L (units unknown) (unknown) (unknown) (no date) (unknown) (unknown) Lymph % (Auto) (units unknown) (unknown) (unknown) (no date) (unknown) (unknown) MCH 32.4 (units unknown) (unknown) (unknown) (no date) (unknown) (unknown) MCH 33.0 (units unknown) (unknown) (unknown) (no date) (unknown) (unknown) MCH (units unknown) (unknown) (unknown) (no date) (unknown) (unknown) MCHC 33.3 (units unknown) (unknown) (unknown) (no date) (unknown) (unknown) MCHC 34.4 (units unknown) (unknown) (unknown) (no date) (unknown) (unknown) MCHC (units unknown) (unknown) (unknown) (no date) (unknown) (unknown) MCV 95.9 (units unknown) (unknown) (unknown) (no date) (unknown) (unknown) MCV 97.5 (units unknown) (unknown) (unknown) (no date) (unknown) (unknown) MCV (units unknown) (unknown) (unknown) (no date) (unknown) (unknown) Magnesium 1.5 L (units unknown) (unknown) (unknown) (no date) (unknown) (unknown) Magnesium 1.6 (units unknown) (unknown) (unknown) (no date) (unknown) (unknown) Magnesium (units unknown) (unknown) (unknown) (no date) (unknown) (unknown) Medical History (units unknown) (unknown) (unknown) (no date) (unknown) (unknown) [place] # (Auto) 1000 H (units unknown) (unknown) (unknown) (no date) (unknown) (unknown) [place] # (Auto) 200 (units unknown) (unknown) (unknown) (no date) (unknown) (unknown) [place] # (Auto) (units unknown) (unknown) (unknown) (no date) (unknown) (unknown) [place] % (Auto) 14.4 H (units unknown) (unknown) (unknown) (no date) (unknown) (unknown) [place] % (Auto) 4.1 (units unknown) (unknown) (unknown) (no date) (unknown) (unknown) [place] % (Auto) (units unknown) (unknown) (unknown) (no date) (unknown) (unknown) Mother Diabetes mellitus (units unknown) (unknown) (unknown) (no date) (unknown) (unknown) Multiple falls (units unknown) (unknown) (unknown) (no date) (unknown) (unknown) NEURO: Alert and oriented x 3, nonfocal (units unknown) (unknown) (unknown) (no date) (unknown) (unknown) NT-Pro-B Natriuret Pep 177 H (units unknown) (unknown) (unknown) (no date) (unknown) (unknown) NT-Pro-B Natriuret Pep (units unknown) (unknown) (unknown) (no date) (unknown) (unknown) Narrative (units unknown) (unknown) (unknown) (no date) (unknown) (unknown) Neut # (Auto) 3700 (units unknown) (unknown) (unknown) (no date) (unknown) (unknown) Neut # (Auto) 4600 (units unknown) (unknown) (unknown) (no date) (unknown) (unknown) Neut # (Auto) (units unknown) (unknown) (unknown) (no date) (unknown) (unknown) Neut % (Auto) 67.6 (units unknown) (unknown) (unknown) (no date) (unknown) (unknown) Neut % (Auto) 81.8 H D (units unknown) (unknown) (unknown) (no date) (unknown) (unknown) Neut % (Auto) (units unknown) (unknown) (unknown) (no date) (unknown) (unknown) Objective (units unknown) (unknown) (unknown) (no date) (unknown) (unknown) Oxygen Delivery Method Room Air (units unknown) (unknown) (unknown) (no date) (unknown) (unknown) Oxygen Flow Rate 0 0 (units unknown) (unknown) (unknown) (no date) (unknown) (unknown) Oxygen Flow Rate 0 (units unknown) (unknown) (unknown) (no date) (unknown) (unknown) PFSH (units unknown) (unknown) (unknown) (no date) (unknown) (unknown) PT 12.4 (units unknown) (unknown) (unknown) (no date) (unknown) (unknown) PT (units unknown) (unknown) (unknown) (no date) (unknown) (unknown) Patient had been admitted to [facility] last week secondary to his alcohol (units unknown) (unknown) (unknown) (no date) (unknown) (unknown) Patient: Sj Romo MR#: [id number] (units unknown) (unknown) (unknown) (no date) (unknown) (unknown) Plt Count 320 (units unknown) (unknown) (unknown) (no date) (unknown) (unknown) Plt Count 324 (units unknown) (unknown) (unknown) (no date) (unknown) (unknown) Plt Count (units unknown) (unknown) (unknown) (no date) (unknown) (unknown) Potassium 4.3 4.5 (units unknown) (unknown) (unknown) (no date) (unknown) (unknown) Potassium (units unknown) (unknown) (unknown) (no date) (unknown) (unknown) Progress Note (units unknown) (unknown) (unknown) (no date) (unknown) (unknown) Provider: Chayo Callahan MD (units unknown) (unknown) (unknown) (no date) (unknown) (unknown) Pt reports he has been falling frequently. States he drinks a 5th per day. (units unknown) (unknown) (unknown) (no date) (unknown) (unknown) Pulse Oximetry 98 95 (units unknown) (unknown) (unknown) (no date) (unknown) (unknown) Pulse Rate 63 60 (units unknown) (unknown) (unknown) (no date) (unknown) (unknown) Quality (units unknown) (unknown) (unknown) (no date) (unknown) (unknown) RBC 3.72 L (units unknown) (unknown) (unknown) (no date) (unknown) (unknown) RBC 3.84 L (units unknown) (unknown) (unknown) (no date) (unknown) (unknown) RBC (units unknown) (unknown) (unknown) (no date) (unknown) (unknown) RDW 13.0 (units unknown) (unknown) (unknown) (no date) (unknown) (unknown) RDW 13.2 (units unknown) (unknown) (unknown) (no date) (unknown) (unknown) RDW (units unknown) (unknown) (unknown) (no date) (unknown) (unknown) Respiratory Rate 18 18 (units unknown) (unknown) (unknown) (no date) (unknown) (unknown) SARS-CoV-2 (PCR) Negative (units unknown) (unknown) (unknown) (no date) (unknown) (unknown) SARS-CoV-2 (PCR) (units unknown) (unknown) (unknown) (no date) (unknown) (unknown) SKIN: warm and dry, no rash, large dark bruise noted round his gluteal folds and (units unknown) (unknown) (unknown) (no date) (unknown) (unknown) Says he tends to binge drink. He reports he has had the intrathecal pump in (units unknown) (unknown) (unknown) (no date) (unknown) (unknown) Signed By: (units unknown) (unknown) (unknown) (no date) (unknown) (unknown) Smoking Status: Milagro huang smoker (units unknown) (unknown) (unknown) (no date) (unknown) (unknown) Social History (Updated 01/15/23 @ 02:23 [facility] (units unknown) (unknown) (unknown) (no date) (unknown) (unknown) Sodium 133 L 131 L (units unknown) (unknown) (unknown) (no date) (unknown) (unknown) Sodium (units unknown) (unknown) (unknown) (no date) (unknown) (unknown) Subjective (units unknown) (unknown) (unknown) (no date) (unknown) (unknown) Surgical History (units unknown) (unknown) (unknown) (no date) (unknown) (unknown) Temperature 98.1 F 98.8 F (units unknown) (unknown) (unknown) (no date) (unknown) (unknown) Today the patient states that he is feeling miserable. He has headache and (units unknown) (unknown) (unknown) (no date) (unknown) (unknown) Total Bilirubin 0.6 0.7 (units unknown) (unknown) (unknown) (no date) (unknown) (unknown) Total Bilirubin (units unknown) (unknown) (unknown) (no date) (unknown) (unknown) Total Protein 7.1 6.8 (units unknown) (unknown) (unknown) (no date) (unknown) (unknown) Total Protein (units unknown) (unknown) (unknown) (no date) (unknown) (unknown) VTE (units unknown) (unknown) (unknown) (no date) (unknown) (unknown) Vital Signs (units unknown) (unknown) (unknown) (no date) (unknown) (unknown) WBC 4.6 (units unknown) (unknown) (unknown) (no date) (unknown) (unknown) WBC 6.8 (units unknown) (unknown) (unknown) (no date) (unknown) (unknown) WBC (units unknown) (unknown) (unknown) (no date) (unknown) (unknown) [Embedded Image Not Available] (units unknown) (unknown) (unknown) (no date) (unknown) (unknown) alcohol intake: current (units unknown) (unknown) (unknown) (no date) (unknown) (unknown) and degenerating bones as a result. (units unknown) (unknown) (unknown) (no date) (unknown) (unknown) and tell everybody h e is fine when he is not. (units unknown) (unknown) (unknown) (no date) (unknown) (unknown) and was unable to ge t up. He attempted to pull himself up on the stove but (units unknown) (unknown) (unknown) (no date) (unknown) (unknown) back lumbar + intrathecal hydromorphone pump. (units unknown) (unknown) (unknown) (no date) (unknown) (unknown) before EMS was platt d yesterday. He also complains of feeling emotionally quite (units unknown) (unknown) (unknown) (no date) (unknown) (unknown) dependence but reported he was feeling better and was ultimately discharged. (units unknown) (unknown) (unknown) (no date) (unknown) (unknown) dependent diabetes and chronic low back pain tx with InterStim stimulator in (units unknown) (unknown) (unknown) (no date) (unknown) (unknown) get back up. Brother notes patient has a history of longstanding polysubstance (units unknown) (unknown) (unknown) (no date) (unknown) (unknown) he went home he woul d drink heavily. (units unknown) (unknown) (unknown) (no date) (unknown) (unknown) his back. His brothe r states he had lead poisoning years ago and developed weak (units unknown) (unknown) (unknown) (no date) (unknown) (unknown) home w/a filthy house, vomit and blood everywhere. Pt had fallen in his kitchen (units unknown) (unknown) (unknown) (no date) (unknown) (unknown) household members: none (units unknown) (unknown) (unknown) (no date) (unknown) (unknown) place x 20 years. 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 He states he i s feeling suicidal. He feels if he were to go home he (units unknown) (unknown) (unknown) (no date) (unknown) (unknown) room and got stuck between his coffee table in his couch. Reported on admission (units unknown) (unknown) (unknown) (no date) (unknown) (unknown) sacrum (units unknown) (unknown) (unknown) (no date) (unknown) (unknown) schizophrenia/bipola r d/o. He also notes he has a history of osteoporosis. (units unknown) (unknown) (unknown) (no date) (unknown) (unknown) sobriety. Brother also notes that the patient tends to minimize his symptoms (units unknown) (unknown) (unknown) (no date) (unknown) (unknown) superficial lee noted to his right forearm (units unknown) (unknown) (unknown) (no date) (unknown) (unknown) sustained a burn to his right forearm. He would also had a fall in his living (units unknown) (unknown) (unknown) (no date) (unknown) (unknown) that he was in the bathroom and there was a shattered mirror and blood around (units unknown) (unknown) (unknown) (no date) (unknown) (unknown) the bathroom as well . Patient states he was down for about 5 hours unable to (units unknown) (unknown) (unknown) (no date) (unknown) (unknown) tremors. He states his withdrawal symptoms are worse. His last drink was right (units unknown) (unknown) (unknown) (no date) (unknown) (unknown) use. He has been in rehab in the past but has not been able to sustain his (units unknown) (unknown) (unknown) (no date) (unknown) (unknown) would not be safe. H e states he feels compelled to drink as well. He feels if (units unknown) (unknown) Result panel 251 (unknown) (no date) (unknown) (unknown) (no value) (units unknown) (unknown) (unknown) (no date) (unknown) (unknown) +---------+ [phone] +--------- (units unknown) (unknown) (unknown) (no date) (unknown) (unknown) +---------+ Hospital +--------- (units unknown) (unknown) (unknown) (no date) (unknown) (unknown) + - (units unknown) (unknown) (unknown) (no date) (unknown) (unknown) [id number] (units unknown) (unknown) (unknown) (no date) (unknown) (unknown) 01/15/23 (units unknown) (unknown) (unknown) (no date) (unknown) (unknown) [address] [place] [address] (units unknown) (unknown) (unknown) (no date) (unknown) (unknown) : : [address] [place] [address] : : (units unknown) (unknown) (unknown) (no date) (unknown) (unknown) : : [id number] : : (units unknown) (unknown) (unknown) (no date) (unknown) (unknown) : : [place], [place] : : (units unknown) (unknown) (unknown) (no date) (unknown) (unknown) : : Phone: [phone] : : (units unknown) (unknown) (unknown) (no date) (unknown) (unknown) : Gender: Male BSA: 2.2 m2 : (units unknown) (unknown) (unknown) (no date) (unknown) (unknown) :: 1970 Age : 53 yrs BP: 101/67 mmHg: (units unknown) (unknown) (unknown) (no date) (unknown) (unknown) :[facility] ReadingLocation: Weight: 207 lb : (units unknown) (unknown) (unknown) (no date) (unknown) (unknown) :Name: EVELYNE ROMO Study Date: 01/16/2023 Height: 72 in : (units unknown) (unknown) (unknown) (no date) (unknown) (unknown) :Ordering Physician: LONDON, : (units unknown) (unknown) (unknown) (no date) (unknown) (unknown) :Reason For Study: NEW ONSET ATRIAL FIBRILLATION HR: 55 : (units unknown) (unknown) (unknown) (no date) (unknown) (unknown) :Referring: CHAYO CALLAHAN : (units unknown) (unknown) (unknown) (no date) (unknown) (unknown) :CHAYO Performed By: NUPUR SANDOVAL : (units unknown) (unknown) (unknown) (no date) (unknown) (unknown) sev ratio: 1.0 (units unknown) (unknown) (unknown) (no date) (unknown) (unknown) JULIANNA indexed to BSA (cm2/m2): 2.1 (units unknown) (unknown) (unknown) (no date) (unknown) (unknown) Accession Number: [id number] (units unknown) (unknown) (unknown) (no date) (unknown) (unknown) Age/Sex: 53 / M Date of Service: (units unknown) (unknown) (unknown) (no date) (unknown) (unknown) [place] [address] (units unknown) (unknown) (unknown) (no date) (unknown) (unknown) Ao V2 VTI: 20.0 cm JULIANNA(V,D): 4.0 cm2 (units unknown) (unknown) (unknown) (no date) (unknown) (unknown) Ao V2 max: 94.3 cm/sec LVOT Max Jean: 82.4 cm/sec (units unknown) (unknown) (unknown) (no date) (unknown) (unknown) Ao V2 mean: 61.9 cm/sec LV V1 max P.7 mmHg (units unknown) (unknown) (unknown) (no date) (unknown) (unknown) Ao max P.6 mmHg LV V1 VTI: 20.1 cm (units unknown) (unknown) (unknown) (no date) (unknown) (unknown) Ao mean P.7 mmHg JULIANNA(I,D): 4.6 cm2 (units unknown) (unknown) (unknown) (no date) (unknown) (unknown) Aortic Valve: The aortic valve is trileaflet. The aortic valve opens well. (units unknown) (unknown) (unknown) (no date) (unknown) (unknown) Atria: Both atria ar e normal in size. There is no Doppler evidence for an (units unknown) (unknown) (unknown) (no date) (unknown) (unknown) : 1970 Acct:[id number] (units unknown) (unknown) (unknown) (no date) (unknown) (unknown) Doppler Measurements + Calculations (units unknown) (unknown) (unknown) (no date) (unknown) (unknown) E/E' lat: 6.9 (units unknown) (unknown) (unknown) (no date) (unknown) (unknown) E/E' med: 9.6 (units unknown) (unknown) (unknown) (no date) (unknown) (unknown) E/e' average: 8.2 (units unknown) (unknown) (unknown) (no date) (unknown) (unknown) Echocardiogram Report (units unknown) (unknown) (unknown) (no date) (unknown) (unknown) Echocardiography Report (units unknown) (unknown) (unknown) (no date) (unknown) (unknown) Electronically yocasta d by: Rod Shell on (units unknown) (unknown) (unknown) (no date) (unknown) (unknown) FS: 28.2 % asc Aorta Diam: 3.6 cm (units unknown) (unknown) (unknown) (no date) (unknown) (unknown) Great Vessels: The aortic root is normal size. The ascending aorta is normal (units unknown) (unknown) (unknown) (no date) (unknown) (unknown) IVSd: 0.91 cm (units unknown) (unknown) (unknown) (no date) (unknown) (unknown) Interpretation Summary (units unknown) (unknown) (unknown) (no date) (unknown) (unknown) [facility] (units unknown) (unknown) (unknown) (no date) (unknown) (unknown) [place] (units unknown) (unknown) (unknown) (no date) (unknown) (unknown) LA A2 area: 23.4 cm2 RA long axis: 5.2 cm (units unknown) (unknown) (unknown) (no date) (unknown) (unknown) LA A4 area: 26.3 cm2 RA area: 17.4 cm2 (units unknown) (unknown) (unknown) (no date) (unknown) (unknown) LA length (vol): 6.4 cm RA vol: 49.6 ml (units unknown) (unknown) (unknown) (no date) (unknown) (unknown) LA vol index: 38.0 ml/m2 IVC diam: 1.6 cm (units unknown) (unknown) (unknown) (no date) (unknown) (unknown) LA vol: 82.2 ml RA : 22.9 ml/m2 (units unknown) (unknown) (unknown) (no date) (unknown) (unknown) LV miguel. diameter/BS A (cm/m2): 2.3 (units unknown) (unknown) (unknown) (no date) (unknown) (unknown) LV sys. diameter/BSA (cm/m2): 1.6 (units unknown) (unknown) (unknown) (no date) (unknown) (unknown) LVIDd: 4.9 cm LVOT diam: 2.4 cm (units unknown) (unknown) (unknown) (no date) (unknown) (unknown) LVIDs: 3.5 cm Ao yee t diam: 3.7 cm (units unknown) (unknown) (unknown) (no date) (unknown) (unknown) LVPWd: 1.0 cm (units unknown) (unknown) (unknown) (no date) (unknown) (unknown) Lat Peak E' Jean: 10. 4 cm/sec (units unknown) (unknown) (unknown) (no date) (unknown) (unknown) Left Ventricle: The left ventricle is normal in size and wall thickness. The (units unknown) (unknown) (unknown) (no date) (unknown) (unknown) Loc: AC 206-1 (units unknown) (unknown) (unknown) (no date) (unknown) (unknown) MMode/2D Measurement s + Calculations (units unknown) (unknown) (unknown) (no date) (unknown) (unknown) MV A max jean: 73.2 cm/sec PA V2 mean: 55.3 cm/sec (units unknown) (unknown) (unknown) (no date) (unknown) (unknown) MV E max jean: 71.6 cm/sec PA V2 max: 72.9 cm/sec (units unknown) (unknown) (unknown) (no date) (unknown) (unknown) MV E/A: 0.98 PA mean P.3 mmHg (units unknown) (unknown) (unknown) (no date) (unknown) (unknown) MV dec time: 0.24 sec (units unknown) (unknown) (unknown) (no date) (unknown) (unknown) Med Peak E' Jean: 7.5 cm/sec PA pr(Accel): 17.3 mmHg (units unknown) (unknown) (unknown) (no date) (unknown) (unknown) Mitral Valve: The mitral valve is normal in structure and function. There is (units unknown) (unknown) (unknown) (no date) (unknown) (unknown) Normal echo study. (units unknown) (unknown) (unknown) (no date) (unknown) (unknown) Ordering Provider: Chayo Callahan MD (units unknown) (unknown) (unknown) (no date) (unknown) (unknown) Patient: Sj Romo MR#: [id number] (units unknown) (unknown) (unknown) (no date) (unknown) (unknown) Pericardium/ Pleura There is no pericardial effusion. There is no pleural (units unknown) (unknown) (unknown) (no date) (unknown) (unknown) Procedure: A two-dimensional transthoracic echocardiogram with color flow (units unknown) (unknown) (unknown) (no date) (unknown) (unknown) Procedure: EC echo doppler complete (units unknown) (unknown) (unknown) (no date) (unknown) (unknown) Pulmonic Valve: The pulmonic valve leaflets are thin and pliable; valve (units unknown) (unknown) (unknown) (no date) (unknown) (unknown) Reading Physician:01/16/2023 05:08 PM (units unknown) (unknown) (unknown) (no date) (unknown) (unknown) Right Ventricle: The right ventricle is normal in size and function. (units unknown) (unknown) (unknown) (no date) (unknown) (unknown) SV(LVOT): 92.6 ml (units unknown) (unknown) (unknown) (no date) (unknown) (unknown) Signed (units unknown) (unknown) (unknown) (no date) (unknown) (unknown) TAPSE: 2.9 cm (units unknown) (unknown) (unknown) (no date) (unknown) (unknown) There is no aortic valve stenosis. No aortic regurgitation is present. (units unknown) (unknown) (unknown) (no date) (unknown) (unknown) There is trace tricuspid regurgitation. Pulmonary artery pressures cannot be (units unknown) (unknown) (unknown) (no date) (unknown) (unknown) Tricuspid Valve: The tricuspid valve is normal in structure and function. (units unknown) (unknown) (unknown) (no date) (unknown) (unknown) _ (units unknown) (unknown) (unknown) (no date) (unknown) (unknown) abnormalities. (units unknown) (unknown) (unknown) (no date) (unknown) (unknown) and Doppler was performed. The study quality was technically adequate. There (units unknown) (unknown) (unknown) (no date) (unknown) (unknown) effusion. (units unknown) (unknown) (unknown) (no date) (unknown) (unknown) ejection fraction is estimated to be 55-60%. There are no focal wall motion (units unknown) (unknown) (unknown) (no date) (unknown) (unknown) estimated because of the lack of a measurable TR jet velocity. (units unknown) (unknown) (unknown) (no date) (unknown) (unknown) in size. The IVC is of normal diameter and collapses greater than 50% with a (units unknown) (unknown) (unknown) (no date) (unknown) (unknown) interatrial shunt. (units unknown) (unknown) (unknown) (no date) (unknown) (unknown) is no prior echocardiogram noted for this patient. The patient was in normal (units unknown) (unknown) (unknown) (no date) (unknown) (unknown) motion is normal. There is no pulmonic valvular regurgitation. (units unknown) (unknown) (unknown) (no date) (unknown) (unknown) sinus rhythm during the exam. (units unknown) (unknown) (unknown) (no date) (unknown) (unknown) sniff. This suggests a low right atrial pressure of 3 mm Hg. (units unknown) (unknown) (unknown) (no date) (unknown) (unknown) trace mitral regurgitation. (units unknown) (unknown) Result panel 252 (unknown) (no date) (unknown) (unknown) (no value) (units unknown) (unknown) (unknown) (no date) (unknown) (unknown) (past 8 hours): (units unknown) (unknown) (unknown) (no date) (unknown) (unknown) [id number] (units unknown) (unknown) (unknown) (no date) (unknown) (unknown) 01/14/23 01/14/23 01/14/23 (units unknown) (unknown) (unknown) (no date) (unknown) (unknown) 01/14/23 01/15/23 01/15/23 (units unknown) (unknown) (unknown) (no date) (unknown) (unknown) 01/15/23 01/15/23 01/15/23 (units unknown) (unknown) (unknown) (no date) (unknown) (unknown) 01/15/23 08:55 (units unknown) (unknown) (unknown) (no date) (unknown) (unknown) 01/15/23 1811 (units unknown) (unknown) (unknown) (no date) (unknown) (unknown) 01/15/23 (units unknown) (unknown) (unknown) (no date) (unknown) (unknown) 08:00 01/15/23 (units unknown) (unknown) (unknown) (no date) (unknown) (unknown) 08:55 09:00 09:00 (units unknown) (unknown) (unknown) (no date) (unknown) (unknown) 1. Alcohol dependenc e with withdrawal (units unknown) (unknown) (unknown) (no date) (unknown) (unknown) 10. Hyponatremia (units unknown) (unknown) (unknown) (no date) (unknown) (unknown) 11. Hypomagnesemia (units unknown) (unknown) (unknown) (no date) (unknown) (unknown) 11:58 (units unknown) (unknown) (unknown) (no date) (unknown) (unknown) 12. Transaminitis (units unknown) (unknown) (unknown) (no date) (unknown) (unknown) 15:25 18:15 23:10 (units unknown) (unknown) (unknown) (no date) (unknown) (unknown) 2. Suicidal ideation (units unknown) (unknown) (unknown) (no date) (unknown) (unknown) 23:10 08:55 08:55 (units unknown) (unknown) (unknown) (no date) (unknown) (unknown) 23:10 23:10 23:10 (units unknown) (unknown) (unknown) (no date) (unknown) (unknown) 3. Multiple falls secondary to gait instability (units unknown) (unknown) (unknown) (no date) (unknown) (unknown) 4. Paroxysmal atrial fibrillation (units unknown) (unknown) (unknown) (no date) (unknown) (unknown) 5. Diabetes mellitus , type unclear (units unknown) (unknown) (unknown) (no date) (unknown) (unknown) 53-year-old male wit h known history of alcohol abuse, HTN, HLD, BPH, insulin (units unknown) (unknown) (unknown) (no date) (unknown) (unknown) 6. Hypertension (units unknown) (unknown) (unknown) (no date) (unknown) (unknown) 7. Chronic pain syndrome (units unknown) (unknown) (unknown) (no date) (unknown) (unknown) 8. BPH (units unknown) (unknown) (unknown) (no date) (unknown) (unknown) 9. Anemia (units unknown) (unknown) (unknown) (no date) (unknown) (unknown) ABD: Soft, NT/ND, BT present in all 4 quadrants, no organomegaly or masses (units unknown) (unknown) (unknown) (no date) (unknown) (unknown) ALT 93 H 78 H (units unknown) (unknown) (unknown) (no date) (unknown) (unknown) ALT (units unknown) (unknown) (unknown) (no date) (unknown) (unknown) AST 96 H 75 H (units unknown) (unknown) (unknown) (no date) (unknown) (unknown) AST (units unknown) (unknown) (unknown) (no date) (unknown) (unknown) Age/Sex: 53 / M (units unknown) (unknown) (unknown) (no date) (unknown) (unknown) Albumin 4.0 3.9 (units unknown) (unknown) (unknown) (no date) (unknown) (unknown) Albumin (units unknown) (unknown) (unknown) (no date) (unknown) (unknown) Albumin/Globulin Ratio 1.3 1.3 (units unknown) (unknown) (unknown) (no date) (unknown) (unknown) Albumin/Globulin Ratio (units unknown) (unknown) (unknown) (no date) (unknown) (unknown) Alcohol intoxication (units unknown) (unknown) (unknown) (no date) (unknown) (unknown) Alkaline Phosphatase 139 H 135 H (units unknown) (unknown) (unknown) (no date) (unknown) (unknown) Alkaline Phosphatase (units unknown) (unknown) (unknown) (no date) (unknown) (unknown) Ammonia < 9 L (units unknown) (unknown) (unknown) (no date) (unknown) (unknown) Ammonia (units unknown) (unknown) (unknown) (no date) (unknown) (unknown) Assessment + Plan narrative: (units unknown) (unknown) (unknown) (no date) (unknown) (unknown) Assessment + Plan (units unknown) (unknown) (unknown) (no date) (unknown) (unknown) BPH (benign prostati c hyperplasia) (units unknown) (unknown) (unknown) (no date) (unknown) (unknown) BUN 13 16 (units unknown) (unknown) (unknown) (no date) (unknown) (unknown) BUN (units unknown) (unknown) (unknown) (no date) (unknown) (unknown) BUN/Creatinine Ratio 25.0 H 34.8 H (units unknown) (unknown) (unknown) (no date) (unknown) (unknown) BUN/Creatinine Ratio (units unknown) (unknown) (unknown) (no date) (unknown) (unknown) Baso # (Auto) 0 (units unknown) (unknown) (unknown) (no date) (unknown) (unknown) Baso # (Auto) (units unknown) (unknown) (unknown) (no date) (unknown) (unknown) Baso % (Auto) 0.3 (units unknown) (unknown) (unknown) (no date) (unknown) (unknown) Baso % (Auto) (units unknown) (unknown) (unknown) (no date) (unknown) (unknown) Blood Pressure 155/9 2 H 119/77 (units unknown) (unknown) (unknown) (no date) (unknown) (unknown) Brother notes that a welfare check was done yesterday and he was found to be at (units unknown) (unknown) (unknown) (no date) (unknown) (unknown) Brother reports 6 prior suicide attempts. He says that Sj has prior dx of (units unknown) (unknown) (unknown) (no date) (unknown) (unknown) CHEST: Respiratory excursions symmetric, CTAB (units unknown) (unknown) (unknown) (no date) (unknown) (unknown) CV: RRR, no M/R/G (units unknown) (unknown) (unknown) (no date) (unknown) (unknown) Calcium 8.7 8.8 (units unknown) (unknown) (unknown) (no date) (unknown) (unknown) Calcium (units unknown) (unknown) (unknown) (no date) (unknown) (unknown) Carbon Dioxide 29 34 H (units unknown) (unknown) (unknown) (no date) (unknown) (unknown) Carbon Dioxide (units unknown) (unknown) (unknown) (no date) (unknown) (unknown) Chloride 93 L 92 L (units unknown) (unknown) (unknown) (no date) (unknown) (unknown) Chloride (units unknown) (unknown) (unknown) (no date) (unknown) (unknown) Chronic low back pain (units unknown) (unknown) (unknown) (no date) (unknown) (unknown) Code status (units unknown) (unknown) (unknown) (no date) (unknown) (unknown) Congestive heart failure (units unknown) (unknown) (unknown) (no date) (unknown) (unknown) Continue Flomax (units unknown) (unknown) (unknown) (no date) (unknown) (unknown) Creatinine 0.52 L 0.46 L (units unknown) (unknown) (unknown) (no date) (unknown) (unknown) Creatinine (units unknown) (unknown) (unknown) (no date) (unknown) (unknown) : 1970 Acct:[id number] (units unknown) (unknown) (unknown) (no date) (unknown) (unknown) Date of Service: 01/14/23 (units unknown) (unknown) (unknown) (no date) (unknown) (unknown) Deep Vein Thrombosis/Pulmonary Embolism Present on Admission: No (units unknown) (unknown) (unknown) (no date) (unknown) (unknown) Disposition (units unknown) (unknown) (unknown) (no date) (unknown) (unknown) EXTR: warm, well perfused, no C/C/E, scattered bruising noted to his arms, (units unknown) (unknown) (unknown) (no date) (unknown) (unknown) Eos # (Auto) 0 (units unknown) (unknown) (unknown) (no date) (unknown) (unknown) Eos # (Auto) (units unknown) (unknown) (unknown) (no date) (unknown) (unknown) Eos % (Auto) 0.0 L (units unknown) (unknown) (unknown) (no date) (unknown) (unknown) Eos % (Auto) 0.1 L (units unknown) (unknown) (unknown) (no date) (unknown) (unknown) Eos % (Auto) (units unknown) (unknown) (unknown) (no date) (unknown) (unknown) Essential hypertension (units unknown) (unknown) (unknown) (no date) (unknown) (unknown) Estimated GFR > 60 > 60 (units unknown) (unknown) (unknown) (no date) (unknown) (unknown) Estimated GFR (units unknown) (unknown) (unknown) (no date) (unknown) (unknown) Ethyl Alcohol < 10 (units unknown) (unknown) (unknown) (no date) (unknown) (unknown) Ethyl Alcohol 91 H (units unknown) (unknown) (unknown) (no date) (unknown) (unknown) Ethyl Alcohol (units unknown) (unknown) (unknown) (no date) (unknown) (unknown) Exam Narrative: (units unknown) (unknown) (unknown) (no date) (unknown) (unknown) Exam (units unknown) (unknown) (unknown) (no date) (unknown) (unknown) Family History (Updated 01/15/23 @ 02:24 by DOUG Chairez) (units unknown) (unknown) (unknown) (no date) (unknown) (unknown) Father Diabetes mellitus (units unknown) (unknown) (unknown) (no date) (unknown) (unknown) Full (units unknown) (unknown) (unknown) (no date) (unknown) (unknown) GEN: Alert and oriented x 3, anxious and tearful, flat affect (units unknown) (unknown) (unknown) (no date) (unknown) (unknown) GGT 399 H (units unknown) (unknown) (unknown) (no date) (unknown) (unknown) GGT (units unknown) (unknown) (unknown) (no date) (unknown) (unknown) Globulin 3.1 2.9 (units unknown) (unknown) (unknown) (no date) (unknown) (unknown) Globulin (units unknown) (unknown) (unknown) (no date) (unknown) (unknown) Glucose 357 H D 262 H (units unknown) (unknown) (unknown) (no date) (unknown) (unknown) Glucose (units unknown) (unknown) (unknown) (no date) (unknown) (unknown) HEENT:NC, Face symmetric (units unknown) (unknown) (unknown) (no date) (unknown) (unknown) Hct 35.7 L (units unknown) (unknown) (unknown) (no date) (unknown) (unknown) Hct 37.4 L (units unknown) (unknown) (unknown) (no date) (unknown) (unknown) Hct (units unknown) (unknown) (unknown) (no date) (unknown) (unknown) Hgb 12.3 L (units unknown) (unknown) (unknown) (no date) (unknown) (unknown) Hgb 12.4 L (units unknown) (unknown) (unknown) (no date) (unknown) (unknown) Hgb (units unknown) (unknown) (unknown) (no date) (unknown) (unknown) History of shoulder surgery (units unknown) (unknown) (unknown) (no date) (unknown) (unknown) However, echocardiogram will be ordered to assess for evidence of (units unknown) (unknown) (unknown) (no date) (unknown) (unknown) Hyperlipidemia due t o type 1 diabetes mellitus (units unknown) (unknown) (unknown) (no date) (unknown) (unknown) INR 1.1 (units unknown) (unknown) (unknown) (no date) (unknown) (unknown) INR (units unknown) (unknown) (unknown) (no date) (unknown) (unknown) Interval history: (units unknown) (unknown) (unknown) (no date) (unknown) (unknown) [address] [address] (units unknown) (unknown) (unknown) (no date) (unknown) (unknown) Laboratory Results - last 24 hr (units unknown) (unknown) (unknown) (no date) (unknown) (unknown) Labs (units unknown) (unknown) (unknown) (no date) (unknown) (unknown) Labs: (units unknown) (unknown) (unknown) (no date) (unknown) (unknown) 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 LFTs are presently improving. (units unknown) (unknown) (unknown) (no date) (unknown) (unknown) Lovenox ordered (units unknown) (unknown) (unknown) (no date) (unknown) (unknown) Lymph # (Auto) 1200 (units unknown) (unknown) (unknown) (no date) (unknown) (unknown) Lymph # (Auto) 600 L (units unknown) (unknown) (unknown) (no date) (unknown) (unknown) Lymph # (Auto) (units unknown) (unknown) (unknown) (no date) (unknown) (unknown) Lymph % (Auto) 13.7 L D (units unknown) (unknown) (unknown) (no date) (unknown) (unknown) Lymph % (Auto) 17.7 L (units unknown) (unknown) (unknown) (no date) (unknown) (unknown) Lymph % (Auto) (units unknown) (unknown) (unknown) (no date) (unknown) (unknown) MCH 32.4 (units unknown) (unknown) (unknown) (no date) (unknown) (unknown) MCH 33.0 (units unknown) (unknown) (unknown) (no date) (unknown) (unknown) MCH (units unknown) (unknown) (unknown) (no date) (unknown) (unknown) MCHC 33.3 (units unknown) (unknown) (unknown) (no date) (unknown) (unknown) MCHC 34.4 (units unknown) (unknown) (unknown) (no date) (unknown) (unknown) MCHC (units unknown) (unknown) (unknown) (no date) (unknown) (unknown) MCV 95.9 (units unknown) (unknown) (unknown) (no date) (unknown) (unknown) MCV 97.5 (units unknown) (unknown) (unknown) (no date) (unknown) (unknown) MCV (units unknown) (unknown) (unknown) (no date) (unknown) (unknown) Magnesium 1.5 L (units unknown) (unknown) (unknown) (no date) (unknown) (unknown) Magnesium 1.6 (units unknown) (unknown) (unknown) (no date) (unknown) (unknown) Magnesium (units unknown) (unknown) (unknown) (no date) (unknown) (unknown) Medical History (units unknown) (unknown) (unknown) (no date) (unknown) (unknown) [place] # (Auto) 1000 H (units unknown) (unknown) (unknown) (no date) (unknown) (unknown) [place] # (Auto) 200 (units unknown) (unknown) (unknown) (no date) (unknown) (unknown) [place] # (Auto) (units unknown) (unknown) (unknown) (no date) (unknown) (unknown) [place] % (Auto) 14.4 H (units unknown) (unknown) (unknown) (no date) (unknown) (unknown) [place] % (Auto) 4.1 (units unknown) (unknown) (unknown) (no date) (unknown) (unknown) [place] % (Auto) (units unknown) (unknown) (unknown) (no date) (unknown) (unknown) Mother Diabetes mellitus (units unknown) (unknown) (unknown) (no date) (unknown) (unknown) Multiple falls (units unknown) (unknown) (unknown) (no date) (unknown) (unknown) NEURO: Alert and oriented x 3, nonfocal (units unknown) (unknown) (unknown) (no date) (unknown) (unknown) NT-Pro-B Natriuret Pep 177 H (units unknown) (unknown) (unknown) (no date) (unknown) (unknown) NT-Pro-B Natriuret Pep (units unknown) (unknown) (unknown) (no date) (unknown) (unknown) Narrative (units unknown) (unknown) (unknown) (no date) (unknown) (unknown) Neut # (Auto) 3700 (units unknown) (unknown) (unknown) (no date) (unknown) (unknown) Neut # (Auto) 4600 (units unknown) (unknown) (unknown) (no date) (unknown) (unknown) Neut # (Auto) (units unknown) (unknown) (unknown) (no date) (unknown) (unknown) Neut % (Auto) 67.6 (units unknown) (unknown) (unknown) (no date) (unknown) (unknown) Neut % (Auto) 81.8 H D (units unknown) (unknown) (unknown) (no date) (unknown) (unknown) Neut % (Auto) (units unknown) (unknown) (unknown) (no date) (unknown) (unknown) Normocytic. Likely secondary to alcohol-induced marrow suppression. (units unknown) (unknown) (unknown) (no date) (unknown) (unknown) Objective (units unknown) (unknown) (unknown) (no date) (unknown) (unknown) Oxygen Delivery Method Room Air (units unknown) (unknown) (unknown) (no date) (unknown) (unknown) Oxygen Flow Rate 0 0 (units unknown) (unknown) (unknown) (no date) (unknown) (unknown) Oxygen Flow Rate 0 (units unknown) (unknown) (unknown) (no date) (unknown) (unknown) PFSH (units unknown) (unknown) (unknown) (no date) (unknown) (unknown) PT 12.4 (units unknown) (unknown) (unknown) (no date) (unknown) (unknown) PT (units unknown) (unknown) (unknown) (no date) (unknown) (unknown) Patient continues on Lantus and sliding scale. Chart Notes refer to him being a (units unknown)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 healin g laceration to his right forehead, bruises to his arms, as (units unknown) (unknown) (unknown) (no date) (unknown) (unknown) Patient has a spinal stimulator in place as well as an intrathecal hydromorphone (units unknown) (unknown) (unknown) (no date) (unknown) (unknown) Patient has had multiple prior attempts from what his brother told me. No plan (units unknown) (unknown) (unknown) (no date) (unknown) (unknown) Patient is on lisinopril and propranolol. He did develop some hypotension (units unknown) (unknown) (unknown) (no date) (unknown) (unknown) Patient was noted to have an episode of AFib in the emergency department for (units unknown) (unknown) (unknown) (no date) (unknown) (unknown) Patient: DemetriusSj Murrieta MR#: [id number] (units unknown) (unknown) (unknown) (no date) (unknown) (unknown) Pending (units unknown) (unknown) (unknown) (no date) (unknown) (unknown) Plt Count 302 (units unknown) (unknown) (unknown) (no date) (unknown) (unknown) Potassium 4.1 (units unknown) (unknown) (unknown) (no date) (unknown) (unknown) Progress Note (units unknown) (unknown) (unknown) (no date) (unknown) (unknown) Prophylaxis (units unknown) (unknown) (unknown) (no date) (unknown) (unknown) Provider: Terry Gomez D.O. (units unknown) (unknown) (unknown) (no date) (unknown) (unknown) Pulse Oximetry 97 96 (units unknown) (unknown) (unknown) (no date) (unknown) (unknown) Pulse Rate 55 L 81 (units unknown) (unknown) (unknown) (no date) (unknown) (unknown) Quality (units unknown) (unknown) (unknown) (no date) (unknown) (unknown) RBC 3.56 L (units unknown) (unknown) (unknown) (no date) (unknown) (unknown) RDW 13.4 (units unknown) (unknown) (unknown) (no date) (unknown) (unknown) Respiratory Rate 18 20 (units unknown) (unknown) (unknown) (no date) (unknown) (unknown) SKIN: warm and dry, no rash, large dark bruise noted round his gluteal folds and (units unknown) (unknown) (unknown) (no date) (unknown) (unknown) Signed By: (units unknown) (unknown) (unknown) (no date) (unknown) (unknown) Smoking Status: Aishwaryae r smoker (units unknown) (unknown) (unknown) (no date) (unknown) (unknown) Social History (Updated 01/15/23 @ 02:23 [facility] (units unknown) (unknown) (unknown) (no date) (unknown) (unknown) Sodium 133 L (units unknown) (unknown) (unknown) (no date) (unknown) (unknown) Sodium is 131 today. Will monitor. (units unknown) (unknown) (unknown) (no date) (unknown) (unknown) Subjective (units unknown) (unknown) (unknown) (no date) (unknown) (unknown) Surgical History (units unknown) (unknown) (unknown) (no date) (unknown) (unknown) Temperature 98.7 F 98.6 F (units unknown) (unknown) (unknown) (no date) (unknown) (unknown) Total Bilirubin 0.6 (units unknown) (unknown) (unknown) (no date) (unknown) (unknown) Total Protein 6.1 L (units unknown) (unknown) (unknown) (no date) (unknown) (unknown) VTE (units unknown) (unknown) (unknown) (no date) (unknown) (unknown) Vital Signs (units unknown) (unknown) (unknown) (no date) (unknown) (unknown) WBC 5.2 (units unknown) (unknown) (unknown) (no date) (unknown) (unknown) Will monitor. (units unknown) (unknown) (unknown) (no date) (unknown) (unknown) Will replete orally. (units unknown) (unknown) (unknown) (no date) (unknown) (unknown) [Embedded Image Not Available] (units unknown) (unknown) (unknown) (no date) (unknown) (unknown) alcohol dependence. A bit unclear on when he was diagnosed and there is not any (units unknown) (unknown) (unknown) (no date) (unknown) (unknown) alcohol intake: current (units unknown) (unknown) (unknown) (no date) (unknown) (unknown) alone. PT and OT ordered. (units unknown) (unknown) (unknown) (no date) (unknown) (unknown) at this time but he notes he does not feel safe at home. Would likely benefit (units unknown) (unknown) (unknown) (no date) (unknown) (unknown) attempted librium yesterday but BP dipped slightly, will trial smaller dose with (units unknown) (unknown) (unknown) (no date) (unknown) (unknown) by previous provider. (units unknown) (unknown) (unknown) (no date) (unknown) (unknown) candidate for anticoagulation due to his alcohol dependence and frequent falls. (units unknown) (unknown) (unknown) (no date) (unknown) (unknown) cardiomyopathy, valvular disease LV dysfunction. (units unknown) (unknown) (unknown) (no date) (unknown) (unknown) continue CIWA protocol with prn benzos. (units unknown) (unknown) (unknown) (no date) (unknown) (unknown) continue fingersticks, sliding scale, and Lantus. (units unknown) (unknown) (unknown) (no date) (unknown) (unknown) couple of weeks for refill. (units unknown) (unknown) (unknown) (no date) (unknown) (unknown) from a program that does dual diagnosis. [employer] met with the patient today and (units unknown) (unknown) (unknown) (no date) (unknown) (unknown) household members: none (units unknown) (unknown) (unknown) (no date) (unknown) (unknown) information with regard to his diabetes in the medical record. We will (units unknown) (unknown) (unknown) (no date) (unknown) (unknown) inpatient transfer but remain uncertain if this is feasible. 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 He (units unknown) (unknown) (unknown) (no date) (unknown) (unknown) possible at this time, he remains worried about going home for now as discussed (units unknown) (unknown) (unknown) (no date) (unknown) (unknown) pump. He reports the pump was filled every 2 months and he is not due for a (units unknown) (unknown) (unknown) (no date) (unknown) (unknown) referred to [facility] today by care management. (units unknown) (unknown) (unknown) (no date) (unknown) (unknown) right forearm. These all have occurred when he has been intoxicated and home (units unknown) (unknown) (unknown) (no date) (unknown) (unknown) sacrum (units unknown) (unknown) (unknown) (no date) (unknown) (unknown) seems quite shaken u p from this admission, would like to get as much help as (units unknown) (unknown) (unknown) (no date) (unknown) (unknown) superficial lee noted to his right forearm (units unknown) (unknown) (unknown) (no date) (unknown) (unknown) today. Will hold his antihypertensives for the next 24 hours (units unknown) (unknown) (unknown) (no date) (unknown) (unknown) treatment. He would no evidence of DKA on admission. Certainly he could have (units unknown) (unknown) (unknown) (no date) (unknown) (unknown) type 1 diabetic. However it is not clear whether he is compliant with his (units unknown) (unknown) (unknown) (no date) (unknown) (unknown) well as his gluteal area/sacrum. He also has some superficial lee to his (units unknown) (unknown) (unknown) (no date) (unknown) (unknown) which he was given a dose of metoprolol. CHADS2 Vasc score is 2, consistent (units unknown) (unknown) (unknown) (no date) (unknown) (unknown) will work on [email or web address]. He would benefit most from inpatient to (units unknown) (unknown) (unknown) (no date) (unknown) (unknown) with a 2.2% stroke risk annually. Unfortunately, he would be a very poor (units unknown) (unknown) Result panel 257 (unknown) (no date) (unknown) (unknown) (no value) (units unknown) (unknown) (unknown) (no date) (unknown) (unknown) (past 8 hours): (units unknown) (unknown) (unknown) (no date) (unknown) (unknown) [id number] (units unknown) (unknown) (unknown) (no date) (unknown) (unknown) 01/16/23 01/16/23 (units unknown) (unknown) (unknown) (no date) (unknown) (unknown) 01/16/23 05:54 (units unknown) (unknown) (unknown) (no date) (unknown) (unknown) 01/16/23 1458 (units unknown) (unknown) (unknown) (no date) (unknown) (unknown) 01/16/23 (units unknown) (unknown) (unknown) (no date) (unknown) (unknown) 05:54 05:54 (units unknown) (unknown) (unknown) (no date) (unknown) (unknown) 08:00 01/16/23 (units unknown) (unknown) (unknown) (no date) (unknown) (unknown) 1. Alcohol dependenc e with withdrawal (units unknown) (unknown) (unknown) (no date) (unknown) (unknown) 10 mg TID given symptoms today. (units unknown) (unknown) (unknown) (no date) (unknown) (unknown) 10. Hyponatremia (units unknown) (unknown) (unknown) (no date) (unknown) (unknown) 11. Hypomagnesemia (units unknown) (unknown) (unknown) (no date) (unknown) (unknown) 12. Transaminitis (units unknown) (unknown) (unknown) (no date) (unknown) (unknown) 12:00 (units unknown) (unknown) (unknown) (no date) (unknown) (unknown) 2. Suicidal ideation (units unknown) (unknown) (unknown) (no date) (unknown) (unknown) 3. Multiple falls secondary to gait instability (units unknown) (unknown) (unknown) (no date) (unknown) (unknown) 4. Paroxysmal atrial fibrillation (units unknown) (unknown) (unknown) (no date) (unknown) (unknown) 5. Diabetes mellitus , type unclear (units unknown) (unknown) (unknown) (no date) (unknown) (unknown) 6. Hypertension (units unknown) (unknown) (unknown) (no date) (unknown) (unknown) 7. Chronic pain syndrome (units unknown) (unknown) (unknown) (no date) (unknown) (unknown) 8. BPH (units unknown) (unknown) (unknown) (no date) (unknown) (unknown) 9. Anemia (units unknown) (unknown) (unknown) (no date) (unknown) (unknown) ABD: Soft, NT/ND, BT present in all 4 quadrants, no organomegaly or masses (units unknown) (unknown) (unknown) (no date) (unknown) (unknown) ALT 64 H (units unknown) (unknown) (unknown) (no date) (unknown) (unknown) AST 60 H (units unknown) (unknown) (unknown) (no date) (unknown) (unknown) Age/Sex: 53 / M (units unknown) (unknown) (unknown) (no date) (unknown) (unknown) Albumin 3.3 L (units unknown) (unknown) (unknown) (no date) (unknown) (unknown) Albumin/Globulin Ratio 1.2 (units unknown) (unknown) (unknown) (no date) (unknown) (unknown) Alcohol intoxication (units unknown) (unknown) (unknown) (no date) (unknown) (unknown) Alkaline Phosphatase 99 (units unknown) (unknown) (unknown) (no date) (unknown) (unknown) Assessment + Plan narrative: (units unknown) (unknown) (unknown) (no date) (unknown) (unknown) Assessment + Plan (units unknown) (unknown) (unknown) (no date) (unknown) (unknown) BPH (benign prostati c hyperplasia) (units unknown) (unknown) (unknown) (no date) (unknown) (unknown) BUN 17 (units unknown) (unknown) (unknown) (no date) (unknown) (unknown) BUN/Creatinine Ratio 32.7 H (units unknown) (unknown) (unknown) (no date) (unknown) (unknown) Baso # (Auto) 100 (units unknown) (unknown) (unknown) (no date) (unknown) (unknown) Baso % (Auto) 1.0 (units unknown) (unknown) (unknown) (no date) (unknown) (unknown) Blood Pressure 147/8 5 H 114/75 (units unknown) (unknown) (unknown) (no date) (unknown) (unknown) CHEST: Respiratory excursions symmetric, CTAB (units unknown) (unknown) (unknown) (no date) (unknown) (unknown) CV: RRR, no M/R/G (units unknown) (unknown) (unknown) (no date) (unknown) (unknown) Calcium 8.7 (units unknown) (unknown) (unknown) (no date) (unknown) (unknown) Carbon Dioxide 30 (units unknown) (unknown) (unknown) (no date) (unknown) (unknown) Chloride 97 L (units unknown) (unknown) (unknown) (no date) (unknown) (unknown) Chronic low back pain (units unknown) (unknown) (unknown) (no date) (unknown) (unknown) Code status (units unknown) (unknown) (unknown) (no date) (unknown) (unknown) Complains of severe headache, shakiness and nausea today. Reports bilateral (units unknown) (unknown) (unknown) (no date) (unknown) (unknown) Congestive heart failure (units unknown) (unknown) (unknown) (no date) (unknown) (unknown) Continue Flomax (units unknown) (unknown) (unknown) (no date) (unknown) (unknown) Creatinine 0.52 L (units unknown) (unknown) (unknown) (no date) (unknown) (unknown) : 1970 Acct:[id number] (units unknown) (unknown) (unknown) (no date) (unknown) (unknown) Date of Service: 01/14/23 (units unknown) (unknown) (unknown) (no date) (unknown) (unknown) Deep Vein Thrombosis/Pulmonary Embolism Present on Admission: No (units unknown) (unknown) (unknown) (no date) (unknown) (unknown) Disposition (units unknown) (unknown) (unknown) (no date) (unknown) (unknown) Does have prior history of DT, symptoms today are consistenth with withdrawal. (units unknown) (unknown) (unknown) (no date) (unknown) (unknown) EXTR: warm, well perfused, no C/C/E, scattered bruising noted to his arms, (units unknown) (unknown) (unknown) (no date) (unknown) (unknown) Eos # (Auto) 100 (units unknown) (unknown) (unknown) (no date) (unknown) (unknown) Eos % (Auto) 1.4 L (units unknown) (unknown) (unknown) (no date) (unknown) (unknown) Essential hypertension (units unknown) (unknown) (unknown) (no date) (unknown) (unknown) Estimated GFR > 60 (units unknown) (unknown) (unknown) (no date) (unknown) (unknown) Exam Narrative: (units unknown) (unknown) (unknown) (no date) (unknown) (unknown) Exam (units unknown) (unknown) (unknown) (no date) (unknown) (unknown) Family History (Updated 01/15/23 @ 02:24 by Genesis Dunn [facility]) (units unknown) (unknown) (unknown) (no date) (unknown) (unknown) Father Diabetes mellitus (units unknown) (unknown) (unknown) (no date) (unknown) (unknown) Full (units unknown) (unknown) (unknown) (no date) (unknown) (unknown) GEN: Alert and oriented x 3, anxious and tearful, flat affect (units unknown) (unknown) (unknown) (no date) (unknown) (unknown) Globulin 2.8 (units unknown) (unknown) (unknown) (no date) (unknown) (unknown) Glucose 130 H D (units unknown) (unknown) (unknown) (no date) (unknown) (unknown) HEENT:NC, Face symmetric (units unknown) (unknown) (unknown) (no date) (unknown) (unknown) Hct 34.3 L (units unknown) (unknown) (unknown) (no date) (unknown) (unknown) Hgb 11.7 L (units unknown) (unknown) (unknown) (no date) (unknown) (unknown) History of shoulder surgery (units unknown) (unknown) (unknown) (no date) (unknown) (unknown) However, echocardiogram will be ordered to assess for evidence of (units unknown) (unknown) (unknown) (no date) (unknown) (unknown) Hyperlipidemia due t o type 1 diabetes mellitus (units unknown) (unknown) (unknown) (no date) (unknown) (unknown) Ideally discharge to inpatient treatment, timing in a couple of days given (units unknown) (unknown) (unknown) (no date) (unknown) (unknown) Interval history: (units unknown) (unknown) (unknown) (no date) (unknown) (unknown) [address] [address] (units unknown) (unknown) (unknown) (no date) (unknown) (unknown) Laboratory Results - last 24 hr (units unknown) (unknown) (unknown) (no date) (unknown) (unknown) Labs (units unknown) (unknown) (unknown) (no date) (unknown) (unknown) Labs: (units unknown) (unknown) (unknown) (no date) (unknown) (unknown) 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 LFTs are presently improving. (units unknown) (unknown) (unknown) (no date) (unknown) (unknown) Lovenox ordered (units unknown) (unknown) (unknown) (no date) (unknown) (unknown) Lymph # (Auto) 2300 (units unknown) (unknown) (unknown) (no date) (unknown) (unknown) Lymph % (Auto) 43.1 H D (units unknown) (unknown) (unknown) (no date) (unknown) (unknown) MCH 32.7 (units unknown) (unknown) (unknown) (no date) (unknown) (unknown) MCHC 34.0 (units unknown) (unknown) (unknown) (no date) (unknown) (unknown) MCV 96.1 (units unknown) (unknown) (unknown) (no date) (unknown) (unknown) Medical History (units unknown) (unknown) (unknown) (no date) (unknown) (unknown) [place] # (Auto) 500 (units unknown) (unknown) (unknown) (no date) (unknown) (unknown) [place] % (Auto) 9.0 (units unknown) (unknown) (unknown) (no date) (unknown) (unknown) Mother Diabetes mellitus (units unknown) (unknown) (unknown) (no date) (unknown) (unknown) Multiple falls (units unknown) (unknown) (unknown) (no date) (unknown) (unknown) NEURO: Alert and oriented x 3, nonfocal (units unknown) (unknown) (unknown) (no date) (unknown) (unknown) Narrative (units unknown) (unknown) (unknown) (no date) (unknown) (unknown) Neut # (Auto) 2400 (units unknown) (unknown) (unknown) (no date) (unknown) (unknown) Neut % (Auto) 45.5 L D (units unknown) (unknown) (unknown) (no date) (unknown) (unknown) Normocytic. Likely secondary to alcohol-induced marrow suppression. (units unknown) (unknown) (unknown) (no date) (unknown) (unknown) Objective (units unknown) (unknown) (unknown) (no date) (unknown) (unknown) Oxygen Delivery Method Room Air (units unknown) (unknown) (unknown) (no date) (unknown) (unknown) Oxygen Flow Rate 0 0 (units unknown) (unknown) (unknown) (no date) (unknown) (unknown) Oxygen Flow Rate 0 (units unknown) (unknown) (unknown) (no date) (unknown) (unknown) PFSH (units unknown) (unknown) (unknown) (no date) (unknown) (unknown) Patient continues on Lantus and sliding scale. Chart Notes refer to him being a (units unknown) (unknown) (unknown) (no date) (unknown) (unknown) Patient has a healin g laceration to his right forehead, bruises to his arms, as (units unknown) (unknown) (unknown) (no date) (unknown) (unknown) Patient has a spinal stimulator in place as well as an intrathecal hydromorphone (units unknown) (unknown) (unknown) (no date) (unknown) (unknown) Patient has had multiple prior attempts from what his brother told me. No plan (units unknown) (unknown) (unknown) (no date) (unknown) (unknown) Patient is on lisinopril and propranolol. He did develop some hypotension (units unknown) (unknown) (unknown) (no date) (unknown) (unknown) Patient was noted to have an episode of AFib in the emergency department for (units unknown) (unknown) (unknown) (no date) (unknown) (unknown) Patient: Sj Romo MR#: [id number] (units unknown) (unknown) (unknown) (no date) (unknown) (unknown) Plt Count 302 (units unknown) (unknown) (unknown) (no date) (unknown) (unknown) Potassium 4.1 (units unknown) (unknown) (unknown) (no date) (unknown) (unknown) Progress Note (units unknown) (unknown) (unknown) (no date) (unknown) (unknown) Prophylaxis (units unknown) (unknown) (unknown) (no date) (unknown) (unknown) Provider: Terry Gomez D.O. (units unknown) (unknown) (unknown) (no date) (unknown) (unknown) Pulse Oximetry 97 96 (units unknown) (unknown) (unknown) (no date) (unknown) (unknown) Pulse Rate 55 L 81 (units unknown) (unknown) (unknown) (no date) (unknown) (unknown) Quality (units unknown) (unknown) (unknown) (no date) (unknown) (unknown) RBC 3.56 L (units unknown) (unknown) (unknown) (no date) (unknown) (unknown) RDW 13.4 (units unknown) (unknown) (unknown) (no date) (unknown) (unknown) Respiratory Rate 18 20 (units unknown) (unknown) (unknown) (no date) (unknown) (unknown) SKIN: warm and dry, no rash, large dark bruise noted round his gluteal folds and (units unknown) (unknown) (unknown) (no date) (unknown) (unknown) Signed By:<Electronically signed by Terry Gomez D.O.> (units unknown) (unknown) (unknown) (no date) (unknown) (unknown) Smoking Status: Milagro huang smoker (units unknown) (unknown) (unknown) (no date) (unknown) (unknown) Social History (Updated 01/15/23 @ 02:23 by Genesis Dunn [facility]) (units unknown) (unknown) (unknown) (no date) (unknown) (unknown) Sodium 133 L (units unknown) (unknown) (unknown) (no date) (unknown) (unknown) Sodium is 133 today. Will monitor. (units unknown) (unknown) (unknown) (no date) (unknown) (unknown) Subjective (units unknown) (unknown) (unknown) (no date) (unknown) (unknown) Surgical History (units unknown) (unknown) (unknown) (no date) (unknown) (unknown) Temperature 98.7 F 98.6 F (units unknown) (unknown) (unknown) (no date) (unknown) (unknown) Total Bilirubin 0.6 (units unknown) (unknown) (unknown) (no date) (unknown) (unknown) Total Protein 6.1 L (units unknown) (unknown) (unknown) (no date) (unknown) (unknown) VTE (units unknown) (unknown) (unknown) (no date) (unknown) (unknown) Vital Signs (units unknown) (unknown) (unknown) (no date) (unknown) (unknown) WBC 5.2 (units unknown) (unknown) (unknown) (no date) (unknown) (unknown) Will monitor. (units unknown) (unknown) (unknown) (no date) (unknown) (unknown) [Embedded Image Not Available] (units unknown) (unknown) (unknown) (no date) (unknown) (unknown) alcohol dependence. A bit unclear on when he was diagnosed and there is not any (units unknown) (unknown) (unknown) (no date) (unknown) (unknown) alcohol intake: current (units unknown) (unknown) (unknown) (no date) (unknown) (unknown) alone. PT and OT ordered. (units unknown) (unknown) (unknown) (no date) (unknown) (unknown) at this time but he notes he does not feel safe at home. Would likely benefit (units unknown) (unknown) (unknown) (no date) (unknown) (unknown) attempted librium yesterday but BP dipped slightly, will trial smaller dose with (units unknown) (unknown) (unknown) (no date) (unknown) (unknown) by previous provider. (units unknown) (unknown) (unknown) (no date) (unknown) (unknown) candidate for anticoagulation due to his alcohol dependence and frequent falls. (units unknown) (unknown) (unknown) (no date) (unknown) (unknown) cardiomyopathy, valvular disease LV dysfunction. (units unknown) (unknown) (unknown) (no date) (unknown) (unknown) continue CIWA protocol with prn benzos. (units unknown) (unknown) (unknown) (no date) (unknown) (unknown) continue fingersticks, sliding scale, and Lantus. (units unknown) (unknown) (unknown) (no date) (unknown) (unknown) continue prn repletion (units unknown) (unknown) (unknown) (no date) (unknown) (unknown) continued withdrawal symptoms, appreciate care management assistance in placem (units unknown) (unknown) (unknown) (no date) (unknown) (unknown) couple of weeks for refill. (units unknown) (unknown) (unknown) (no date) (unknown) (unknown) ent. (units unknown) (unknown) (unknown) (no date) (unknown) (unknown) from a program that does dual diagnosis. [employer] met with the patient today and (units unknown) (unknown) (unknown) (no date) (unknown) (unknown) household members: none (units unknown) (unknown) (unknown) (no date) (unknown) (unknown) information with regard to his diabetes in the medical record. We will (units unknown) (unknown) (unknown) (no date) (unknown) (unknown) inpatient transfer but remain uncertain if this is feasible. 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 He (units unknown) (unknown) (unknown) (no date) (unknown) (unknown) possible at this time, he remains worried about going home for now as discussed (units unknown) (unknown) (unknown) (no date) (unknown) (unknown) pump. He reports the pump was filled every 2 months and he is not due for a (units unknown) (unknown) (unknown) (no date) (unknown) (unknown) referred to [facility] today by care management. (units unknown) (unknown) (unknown) (no date) (unknown) (unknown) right forearm. These all have occurred when he has been intoxicated and home (units unknown) (unknown) (unknown) (no date) (unknown) (unknown) sacrum (units unknown) (unknown) (unknown) (no date) (unknown) (unknown) seems quite shaken u p from this admission, would like to get as much help as (units unknown) (unknown) (unknown) (no date) (unknown) (unknown) superficial lee noted to his right forearm (units unknown) (unknown) (unknown) (no date) (unknown) (unknown) treatment. He would no evidence of DKA on admission. Certainly he could have (units unknown) (unknown) (unknown) (no date) (unknown) (unknown) type 1 diabetic. However it is not clear whether he is compliant with his (units unknown) (unknown) (unknown) (no date) (unknown) (unknown) well as his gluteal area/sacrum. He also has some superficial lee to his (units unknown) (unknown) (unknown) (no date) (unknown) (unknown) which he was given a dose of metoprolol. CHADS2 Vasc score is 2, consistent (units unknown) (unknown) (unknown) (no date) (unknown) (unknown) will work on possibl e resources. He would benefit most from inpatient to (units unknown) (unknown) (unknown) (no date) (unknown) (unknown) with a 2.2% stroke risk annually. Unfortunately, he would be a very poor (units unknown) (unknown) (unknown) (no date) (unknown) (unknown) yesterday, with librium noted above will continue to hold today. (units unknown) (unknown) Result panel 258 (unknown) (no date) (unknown) (unknown) 237 mg/dl (unknown) (unknown) (no date) (unknown) (unknown) 237 mg/dl (unknown) (unknown) (no date) (unknown) (unknown) 9.9 % (unknown) (unknown) (no date) (unknown) (unknown) 9.9 % (unknown) Result panel 259 (unknown) (no date) (unknown) (unknown) 1.5 % (unknown) (unknown) (no date) (unknown) (unknown) 100 /ul (unknown) (unknown) (no date) (unknown) (unknown) 100 /ul (unknown) (unknown) (no date) (unknown) (unknown) 11.8 g/dl (unknown) (unknown) (no date) (unknown) (unknown) 13.4 % (unknown) (unknown) (no date) (unknown) (unknown) 1600 /ul (unknown) (unknown) (no date) (unknown) (unknown) 1900 /ul (unknown) (unknown) (no date) (unknown) (unknown) 3.5 % (unknown) (unknown) (no date) (unknown) (unknown) 3.62 x10 6/ul (unknown) (unknown) (no date) (unknown) (unknown) 300 /ul (unknown) (unknown) (no date) (unknown) (unknown) 306 x10 3/ul (unknown) (unknown) (no date) (unknown) (unknown) 32.6 pg (unknown) (unknown) (no date) (unknown) (unknown) 33.7 % (unknown) (unknown) (no date) (unknown) (unknown) 35.0 % (unknown) (unknown) (no date) (unknown) (unknown) 39.1 % (unknown) (unknown) (no date) (unknown) (unknown) 4.1 x10 3/ul (unknown) (unknown) (no date) (unknown) (unknown) 47.6 % (unknown) (unknown) (no date) (unknown) (unknown) 8.3 % (unknown) (unknown) (no date) (unknown) (unknown) 96.6 fl (unknown) Result panel 260 (unknown) (no date) (unknown) (unknown) > 60 ml/min (unknown) (unknown) (no date) (unknown) (unknown) > 60 ml/min (unknown) (unknown) (no date) (unknown) (unknown) 0.5 mg/dl (unknown) (unknown) (no date) (unknown) (unknown) 0.51 mg/dl (unknown) (unknown) (no date) (unknown) (unknown) 1.2 (units unknown) (unknown) (unknown) (no date) (unknown) (unknown) 111 u/l (unknown) (unknown) (no date) (unknown) (unknown) 133 mmol/l (unknown) (unknown) (no date) (unknown) (unknown) 14 mg/dl (unknown) (unknown) (no date) (unknown) (unknown) 160 mg/dl (unknown) (unknown) (no date) (unknown) (unknown) 160 mg/dl (unknown) (unknown) (no date) (unknown) (unknown) 2.7 g/dl (unknown) (unknown) (no date) (unknown) (unknown) 27.5 (units unknown) (unknown) (unknown) (no date) (unknown) (unknown) 3.2 g/dl (unknown) (unknown) (no date) (unknown) (unknown) 3.9 mmol/l (unknown) (unknown) (no date) (unknown) (unknown) 30 mmol/l (unknown) (unknown) (no date) (unknown) (unknown) 5.9 g/dl (unknown) (unknown) (no date) (unknown) (unknown) 54 iu/l (unknown) (unknown) (no date) (unknown) (unknown) 58 iu/l (unknown) (unknown) (no date) (unknown) (unknown) 8.4 mg/dl (unknown) (unknown) (no date) (unknown) (unknown) 98 mmol/l (unknown) Result panel 261 (unknown) (no date) (unknown) (unknown) 1.4 mg/dl (unknown) Result panel 262 (unknown) (no date) (unknown) (unknown) (no value) (units unknown) (unknown) (unknown) (no date) (unknown) (unknown) Mixed gram + janine. Deemed unsuitable for further studies. (units unknown) (unknown) Result panel 263 (unknown) (no date) (unknown) (unknown) (no value) (units unknown) (unknown) (unknown) (no date) (unknown) (unknown) (past 8 hours): (units unknown) (unknown) (unknown) (no date) (unknown) (unknown) [id number] (units unknown) (unknown) (unknown) (no date) (unknown) (unknown) 01/14/23 01/17/23 01/17/23 (units unknown) (unknown) (unknown) (no date) (unknown) (unknown) 01/17/23 05:25 (units unknown) (unknown) (unknown) (no date) (unknown) (unknown) 01/17/23 (units unknown) (unknown) (unknown) (no date) (unknown) (unknown) 04:00 01/17/23 (units unknown) (unknown) (unknown) (no date) (unknown) (unknown) 04:30 01/17/23 (units unknown) (unknown) (unknown) (no date) (unknown) (unknown) 05:25 (units unknown) (unknown) (unknown) (no date) (unknown) (unknown) 05:51 (units unknown) (unknown) (unknown) (no date) (unknown) (unknown) 08:10 01/17/23 (units unknown) (unknown) (unknown) (no date) (unknown) (unknown) 08:27 01/17/23 (units unknown) (unknown) (unknown) (no date) (unknown) (unknown) 09:28 (units unknown) (unknown) (unknown) (no date) (unknown) (unknown) 1. Alcohol dependenc e with withdrawal (units unknown) (unknown) (unknown) (no date) (unknown) (unknown) 10. Hyponatremia (units unknown) (unknown) (unknown) (no date) (unknown) (unknown) 11. Hypomagnesemia (units unknown) (unknown) (unknown) (no date) (unknown) (unknown) 12. Transaminitis (units unknown) (unknown) (unknown) (no date) (unknown) (unknown) 2. Suicidal ideation (units unknown) (unknown) (unknown) (no date) (unknown) (unknown) 23:10 05:25 05:25 (units unknown) (unknown) (unknown) (no date) (unknown) (unknown) 3. Multiple falls secondary to gait instability (units unknown) (unknown) (unknown) (no date) (unknown) (unknown) 4. Paroxysmal atrial fibrillation (units unknown) (unknown) (unknown) (no date) (unknown) (unknown) 5. Diabetes mellitus , type unclear (units unknown) (unknown) (unknown) (no date) (unknown) (unknown) 6. Hypertension (units unknown) (unknown) (unknown) (no date) (unknown) (unknown) 7. Chronic pain syndrome (units unknown) (unknown) (unknown) (no date) (unknown) (unknown) 8. BPH (units unknown) (unknown) (unknown) (no date) (unknown) (unknown) 9. Anemia (units unknown) (unknown) (unknown) (no date) (unknown) (unknown) ABD: Soft, NT/ND, BT present in all 4 quadrants, no organomegaly or masses (units unknown) (unknown) (unknown) (no date) (unknown) (unknown) ALT 58 H (units unknown) (unknown) (unknown) (no date) (unknown) (unknown) ALT (units unknown) (unknown) (unknown) (no date) (unknown) (unknown) AST 54 (units unknown) (unknown) (unknown) (no date) (unknown) (unknown) AST (units unknown) (unknown) (unknown) (no date) (unknown) (unknown) Age/Sex: 53 / M (units unknown) (unknown) (unknown) (no date) (unknown) (unknown) Albumin 3.2 L (units unknown) (unknown) (unknown) (no date) (unknown) (unknown) Albumin (units unknown) (unknown) (unknown) (no date) (unknown) (unknown) Albumin/Globulin Ratio 1.2 (units unknown) (unknown) (unknown) (no date) (unknown) (unknown) Albumin/Globulin Ratio (units unknown) (unknown) (unknown) (no date) (unknown) (unknown) Alcohol intoxication (units unknown) (unknown) (unknown) (no date) (unknown) (unknown) Alkaline Phosphatase 111 (units unknown) (unknown) (unknown) (no date) (unknown) (unknown) Alkaline Phosphatase (units unknown) (unknown) (unknown) (no date) (unknown) (unknown) Assessment + Plan narrative: (units unknown) (unknown) (unknown) (no date) (unknown) (unknown) Assessment + Plan (units unknown) (unknown) (unknown) (no date) (unknown) (unknown) BPH (benign prostati c hyperplasia) (units unknown) (unknown) (unknown) (no date) (unknown) (unknown) BUN 14 (units unknown) (unknown) (unknown) (no date) (unknown) (unknown) BUN (units unknown) (unknown) (unknown) (no date) (unknown) (unknown) BUN/Creatinine Ratio 27.5 H (units unknown) (unknown) (unknown) (no date) (unknown) (unknown) BUN/Creatinine Ratio (units unknown) (unknown) (unknown) (no date) (unknown) (unknown) Baso # (Auto) 100 (units unknown) (unknown) (unknown) (no date) (unknown) (unknown) Baso # (Auto) (units unknown) (unknown) (unknown) (no date) (unknown) (unknown) Baso % (Auto) 1.5 (units unknown) (unknown) (unknown) (no date) (unknown) (unknown) Baso % (Auto) (units unknown) (unknown) (unknown) (no date) (unknown) (unknown) Blood Pressure 136/9 1 H 136/91 H 136/91 H (units unknown) (unknown) (unknown) (no date) (unknown) (unknown) Blood Pressure 141/8 0 H 149/89 H 144/87 H (units unknown) (unknown) (unknown) (no date) (unknown) (unknown) CHEST: Respiratory excursions symmetric, CTAB (units unknown) (unknown) (unknown) (no date) (unknown) (unknown) CV: RRR, no M/R/G (units unknown) (unknown) (unknown) (no date) (unknown) (unknown) Calcium 8.4 (units unknown) (unknown) (unknown) (no date) (unknown) (unknown) Calcium (units unknown) (unknown) (unknown) (no date) (unknown) (unknown) Carbon Dioxide 30 (units unknown) (unknown) (unknown) (no date) (unknown) (unknown) Carbon Dioxide (units unknown) (unknown) (unknown) (no date) (unknown) (unknown) Chloride 98 (units unknown) (unknown) (unknown) (no date) (unknown) (unknown) Chloride (units unknown) (unknown) (unknown) (no date) (unknown) (unknown) Chronic low back pain (units unknown) (unknown) (unknown) (no date) (unknown) (unknown) Code status (units unknown) (unknown) (unknown) (no date) (unknown) (unknown) Complains of continued headache, shakiness and nausea today. Some sensitivity to (units unknown) (unknown) (unknown) (no date) (unknown) (unknown) Congestive heart failure (units unknown) (unknown) (unknown) (no date) (unknown) (unknown) Continue Flomax (units unknown) (unknown) (unknown) (no date) (unknown) (unknown) Creatinine 0.51 L (units unknown) (unknown) (unknown) (no date) (unknown) (unknown) Creatinine (units unknown) (unknown) (unknown) (no date) (unknown) (unknown) : 1970 Acct:[id number] (units unknown) (unknown) (unknown) (no date) (unknown) (unknown) Date of Service: 01/14/23 (units unknown) (unknown) (unknown) (no date) (unknown) (unknown) Deep Vein Thrombosis/Pulmonary Embolism Present on Admission: No (units unknown) (unknown) (unknown) (no date) (unknown) (unknown) Disposition (units unknown) (unknown) (unknown) (no date) (unknown) (unknown) Does have prior history of DT, symptoms today are consistenth with withdrawal. (units unknown) (unknown) (unknown) (no date) (unknown) (unknown) EXTR: warm, well perfused, no C/C/E, scattered bruising noted to his arms, (units unknown) (unknown) (unknown) (no date) (unknown) (unknown) Eos # (Auto) 100 (units unknown) (unknown) (unknown) (no date) (unknown) (unknown) Eos # (Auto) (units unknown) (unknown) (unknown) (no date) (unknown) (unknown) Eos % (Auto) 3.5 (units unknown) (unknown) (unknown) (no date) (unknown) (unknown) Eos % (Auto) (units unknown) (unknown) (unknown) (no date) (unknown) (unknown) Essential hypertension (units unknown) (unknown) (unknown) (no date) (unknown) (unknown) Estim Average Glucos e 237 (units unknown) (unknown) (unknown) (no date) (unknown) (unknown) Estim Average Glucose (units unknown) (unknown) (unknown) (no date) (unknown) (unknown) Estimated GFR > 60 (units unknown) (unknown) (unknown) (no date) (unknown) (unknown) Estimated GFR (units unknown) (unknown) (unknown) (no date) (unknown) (unknown) Exam Narrative: (units unknown) (unknown) (unknown) (no date) (unknown) (unknown) Exam (units unknown) (unknown) (unknown) (no date) (unknown) (unknown) Family History (Updated 01/15/23 @ 02:24 by Genesis Dunn [facility]) (units unknown) (unknown) (unknown) (no date) (unknown) (unknown) Father Diabetes mellitus (units unknown) (unknown) (unknown) (no date) (unknown) (unknown) Full (units unknown) (unknown) (unknown) (no date) (unknown) (unknown) GEN: Alert and oriented x 3, no acute distress (units unknown) (unknown) (unknown) (no date) (unknown) (unknown) Globulin 2.7 (units unknown) (unknown) (unknown) (no date) (unknown) (unknown) Globulin (units unknown) (unknown) (unknown) (no date) (unknown) (unknown) Glucose 160 H (units unknown) (unknown) (unknown) (no date) (unknown) (unknown) Glucose (units unknown) (unknown) (unknown) (no date) (unknown) (unknown) HEENT:NC, Face symmetric (units unknown) (unknown) (unknown) (no date) (unknown) (unknown) Hct 35.0 L (units unknown) (unknown) (unknown) (no date) (unknown) (unknown) Hct (units unknown) (unknown) (unknown) (no date) (unknown) (unknown) Hgb 11.8 L (units unknown) (unknown) (unknown) (no date) (unknown) (unknown) Hgb A1c (Ref Lab) 9. 9 H (units unknown) (unknown) (unknown) (no date) (unknown) (unknown) Hgb A1c (Ref Lab) (units unknown) (unknown) (unknown) (no date) (unknown) (unknown) Hgb (units unknown) (unknown) (unknown) (no date) (unknown) (unknown) History of shoulder surgery (units unknown) (unknown) (unknown) (no date) (unknown) (unknown) However, echocardiogram will be ordered to assess for evidence of (units unknown) (unknown) (unknown) (no date) (unknown) (unknown) Hyperlipidemia due t o type 1 diabetes mellitus (units unknown) (unknown) (unknown) (no date) (unknown) (unknown) Ideally discharge to inpatient treatment, timing in a couple of days given (units unknown) (unknown) (unknown) (no date) (unknown) (unknown) Interval history: (units unknown) (unknown) (unknown) (no date) (unknown) (unknown) [address] [address] (units unknown) (unknown) (unknown) (no date) (unknown) (unknown) Laboratory Results - last 24 hr (units unknown) (unknown) (unknown) (no date) (unknown) (unknown) Labs (units unknown) (unknown) (unknown) (no date) (unknown) (unknown) Labs: (units unknown) (unknown) (unknown) (no date) (unknown) (unknown) 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 LFTs are presently improving. (units unknown) (unknown) (unknown) (no date) (unknown) (unknown) Lovenox ordered (units unknown) (unknown) (unknown) (no date) (unknown) (unknown) Lymph # (Auto) 1600 (units unknown) (unknown) (unknown) (no date) (unknown) (unknown) Lymph # (Auto) (units unknown) (unknown) (unknown) (no date) (unknown) (unknown) Lymph % (Auto) 39.1 (units unknown) (unknown) (unknown) (no date) (unknown) (unknown) Lymph % (Auto) (units unknown) (unknown) (unknown) (no date) (unknown) (unknown) MCH 32.6 (units unknown) (unknown) (unknown) (no date) (unknown) (unknown) MCH (units unknown) (unknown) (unknown) (no date) (unknown) (unknown) MCHC 33.7 (units unknown) (unknown) (unknown) (no date) (unknown) (unknown) MCHC (units unknown) (unknown) (unknown) (no date) (unknown) (unknown) MCV 96.6 (units unknown) (unknown) (unknown) (no date) (unknown) (unknown) MCV (units unknown) (unknown) (unknown) (no date) (unknown) (unknown) Magnesium 1.4 L (units unknown) (unknown) (unknown) (no date) (unknown) (unknown) Magnesium (units unknown) (unknown) (unknown) (no date) (unknown) (unknown) Medical History (units unknown) (unknown) (unknown) (no date) (unknown) (unknown) [place] # (Auto) 300 (units unknown) (unknown) (unknown) (no date) (unknown) (unknown) [place] # (Auto) (units unknown) (unknown) (unknown) (no date) (unknown) (unknown) [place] % (Auto) 8.3 (units unknown) (unknown) (unknown) (no date) (unknown) (unknown) [place] % (Auto) (units unknown) (unknown) (unknown) (no date) (unknown) (unknown) Mother Diabetes mellitus (units unknown) (unknown) (unknown) (no date) (unknown) (unknown) Multiple falls (units unknown) (unknown) (unknown) (no date) (unknown) (unknown) NEURO: Alert and oriented x 3, nonfocal but + tongue fasciculations and (units unknown) (unknown) (unknown) (no date) (unknown) (unknown) Narrative (units unknown) (unknown) (unknown) (no date) (unknown) (unknown) Neut # (Auto) 1900 (units unknown) (unknown) (unknown) (no date) (unknown) (unknown) Neut # (Auto) (units unknown) (unknown) (unknown) (no date) (unknown) (unknown) Neut % (Auto) 47.6 L (units unknown) (unknown) (unknown) (no date) (unknown) (unknown) Neut % (Auto) (units unknown) (unknown) (unknown) (no date) (unknown) (unknown) Normocytic. Likely secondary to alcohol-induced marrow suppression. (units unknown) (unknown) (unknown) (no date) (unknown) (unknown) Objective (units unknown) (unknown) (unknown) (no date) (unknown) (unknown) Oxygen Delivery Method Room Air (units unknown) (unknown) (unknown) (no date) (unknown) (unknown) Oxygen Flow Rate 0 (units unknown) (unknown) (unknown) (no date) (unknown) (unknown) PFSH (units unknown) (unknown) (unknown) (no date) (unknown) (unknown) Patient continues on Lantus and sliding scale. Chart Notes refer to him being a (units unknown) (unknown) (unknown) (no date) (unknown) (unknown) Patient has a healin g laceration to his right forehead, bruises to his arms, as (units unknown) (unknown) (unknown) (no date) (unknown) (unknown) Patient has a spinal stimulator in place as well as an intrathecal hydromorphone (units unknown) (unknown) (unknown) (no date) (unknown) (unknown) Patient has had multiple prior attempts from what his brother told me. No plan (units unknown) (unknown) (unknown) (no date) (unknown) (unknown) Patient is on lisinopril and propranolol. He did develop some hypotension (units unknown) (unknown) (unknown) (no date) (unknown) (unknown) Patient was noted to have an episode of AFib in the emergency department for (units unknown) (unknown) (unknown) (no date) (unknown) (unknown) Patient: Sj Romo MR#: [id number] (units unknown) (unknown) (unknown) (no date) (unknown) (unknown) Plt Count 306 (units unknown) (unknown) (unknown) (no date) (unknown) (unknown) Plt Count (units unknown) (unknown) (unknown) (no date) (unknown) (unknown) Potassium 3.9 (units unknown) (unknown) (unknown) (no date) (unknown) (unknown) Potassium (units unknown) (unknown) (unknown) (no date) (unknown) (unknown) Progress Note (units unknown) (unknown) (unknown) (no date) (unknown) (unknown) Prophylaxis (units unknown) (unknown) (unknown) (no date) (unknown) (unknown) Provider: Terry Gomez D.O. (units unknown) (unknown) (unknown) (no date) (unknown) (unknown) Pulse Oximetry 94 (units unknown) (unknown) (unknown) (no date) (unknown) (unknown) Pulse Oximetry 96 (units unknown) (unknown) (unknown) (no date) (unknown) (unknown) Pulse Rate 50 L 69 (units unknown) (unknown) (unknown) (no date) (unknown) (unknown) Pulse Rate 51 L 51 L 52 L (units unknown) (unknown) (unknown) (no date) (unknown) (unknown) Quality (units unknown) (unknown) (unknown) (no date) (unknown) (unknown) RBC 3.62 L (units unknown) (unknown) (unknown) (no date) (unknown) (unknown) RBC (units unknown) (unknown) (unknown) (no date) (unknown) (unknown) RDW 13.4 (units unknown) (unknown) (unknown) (no date) (unknown) (unknown) RDW (units unknown) (unknown) (unknown) (no date) (unknown) (unknown) Respiratory Rate 16 16 (units unknown) (unknown) (unknown) (no date) (unknown) (unknown) Respiratory Rate 18 16 16 (units unknown) (unknown) (unknown) (no date) (unknown) (unknown) SKIN: warm and dry, no rash, large dark bruise noted round his gluteal folds and (units unknown) (unknown) (unknown) (no date) (unknown) (unknown) Signed By: (units unknown) (unknown) (unknown) (no date) (unknown) (unknown) Smoking Status: Aishwaryae r smoker (units unknown) (unknown) (unknown) (no date) (unknown) (unknown) Social History (Updated 01/15/23 @ 02:23 by DOUG Chairez) (units unknown) (unknown) (unknown) (no date) (unknown) (unknown) Sodium 133 L (units unknown) (unknown) (unknown) (no date) (unknown) (unknown) Sodium is 133 today. Will monitor. (units unknown) (unknown) (unknown) (no date) (unknown) (unknown) Sodium (units unknown) (unknown) (unknown) (no date) (unknown) (unknown) Subjective (units unknown) (unknown) (unknown) (no date) (unknown) (unknown) Surgical History (units unknown) (unknown) (unknown) (no date) (unknown) (unknown) Temperature 97.1 F L (units unknown) (unknown) (unknown) (no date) (unknown) (unknown) Temperature 97.8 F (units unknown) (unknown) (unknown) (no date) (unknown) (unknown) Total Bilirubin 0.5 (units unknown) (unknown) (unknown) (no date) (unknown) (unknown) Total Bilirubin (units unknown) (unknown) (unknown) (no date) (unknown) (unknown) Total Protein 5.9 L (units unknown) (unknown) (unknown) (no date) (unknown) (unknown) Total Protein (units unknown) (unknown) (unknown) (no date) (unknown) (unknown) VTE (units unknown) (unknown) (unknown) (no date) (unknown) (unknown) Vital Signs (units unknown) (unknown) (unknown) (no date) (unknown) (unknown) WBC 4.1 L (units unknown) (unknown) (unknown) (no date) (unknown) (unknown) WBC (units unknown) (unknown) (unknown) (no date) (unknown) (unknown) Will monitor. (units unknown) (unknown) (unknown) (no date) (unknown) (unknown) [Embedded Image Not Available] (units unknown) (unknown) (unknown) (no date) (unknown) (unknown) a bit worse he feels. (units unknown) (unknown) (unknown) (no date) (unknown) (unknown) alcohol dependence. A bit unclear on when he was diagnosed and there is not any (units unknown) (unknown) (unknown) (no date) (unknown) (unknown) alcohol intake: current (units unknown) (unknown) (unknown) (no date) (unknown) (unknown) alone. 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 PT and OT ordered, will (units unknown) (unknown) (unknown) (no date) (unknown) (unknown) at this time but he notes he does not feel safe at home. Would likely benefit (units unknown) (unknown) (unknown) (no date) (unknown) (unknown) attempted librium yesterday previously but BP dipped, okay with 10 mg TID (units unknown) (unknown) (unknown) (no date) (unknown) (unknown) candidate for anticoagulation due to his alcohol dependence and frequent falls. (units unknown) (unknown) (unknown) (no date) (unknown) (unknown) cardiomyopathy, valvular disease LV dysfunction. (units unknown) (unknown) (unknown) (no date) (unknown) (unknown) continue CIWA protocol with prn benzos. (units unknown) (unknown) (unknown) (no date) (unknown) (unknown) continue fingersticks, sliding scale, and Lantus. (units unknown) (unknown) (unknown) (no date) (unknown) (unknown) continue prn repletion (units unknown) (unknown) (unknown) (no date) (unknown) (unknown) continued withdrawal symptoms, appreciate care management assistance in (units unknown) (unknown) (unknown) (no date) (unknown) (unknown) couple of weeks for refill. (units unknown) (unknown) (unknown) (no date) (unknown) (unknown) from a program that does dual diagnosis. [employer] met with the patient today and (units unknown) (unknown) (unknown) (no date) (unknown) (unknown) household members: none (units unknown) (unknown) (unknown) (no date) (unknown) (unknown) information with regard to his diabetes in the medical record. We will (units unknown) (unknown) (unknown) (no date) (unknown) (unknown) inpatient transfer but remain uncertain if this is feasible. He is being (units unknown) (unknown) (unknown) (no date) (unknown) (unknown) insulin-dependent diabetes secondary to pancreatic insufficiency related to his (units unknown) (unknown) (unknown) (no date) (unknown) (unknown) light. Denies histor y of migraines. No other focal findings on exam. Tremors are (units unknown) (unknown) (unknown) (no date) (unknown) (unknown) placement. (units unknown) (unknown) (unknown) (no date) (unknown) (unknown) pump. He reports the pump was filled every 2 months and he is not due for a (units unknown) (unknown) (unknown) (no date) (unknown) (unknown) referred to [facility] by care management. (units unknown) (unknown) (unknown) (no date) (unknown) (unknown) right forearm. These all have occurred when he has been intoxicated and home (units unknown) (unknown) (unknown) (no date) (unknown) (unknown) sacrum (units unknown) (unknown) (unknown) (no date) (unknown) (unknown) see today. (units unknown) (unknown) (unknown) (no date) (unknown) (unknown) superficial lee noted to his right forearm (units unknown) (unknown) (unknown) (no date) (unknown) (unknown) today. (units unknown) (unknown) (unknown) (no date) (unknown) (unknown) treatment. He would no evidence of DKA on admission. Certainly he could have (units unknown) (unknown) (unknown) (no date) (unknown) (unknown) tremulousness. (units unknown) (unknown) (unknown) (no date) (unknown) (unknown) type 1 diabetic. However it is not clear whether he is compliant with his (units unknown) (unknown) (unknown) (no date) (unknown) (unknown) well as his gluteal area/sacrum. He also has some superficial lee to his (units unknown) (unknown) (unknown) (no date) (unknown) (unknown) which he was given a dose of metoprolol. CHADS2 Vasc score is 2, consistent (units unknown) (unknown) (unknown) (no date) (unknown) (unknown) will work on possibl e resources. He would benefit most from inpatient to (units unknown) (unknown) (unknown) (no date) (unknown) (unknown) with a 2.2% stroke risk annually. Unfortunately, he would be a very poor (units unknown) (unknown) (unknown) (no date) (unknown) (unknown) yesterday, will increase back to 25 TID today given reported worsening tremor (units unknown) (unknown) (unknown) (no date) (unknown) (unknown) yesterday, with librium noted above will continue to hold today. (units unknown) (unknown) Result panel 264 (unknown) (no date) (unknown) (unknown) (no value) (units unknown) (unknown) (unknown) (no date) (unknown) (unknown) (past 8 hours): (units unknown) (unknown) (unknown) (no date) (unknown) (unknown) - TTE performed previously, but not in system, will work today to obtain report. (units unknown) (unknown) (unknown) (no date) (unknown) (unknown) - repleted with IV today. will replete, may be contributing to weakness. (units unknown) (unknown) (unknown) (no date) (unknown) (unknown) [id number] (units unknown) (unknown) (unknown) (no date) (unknown) (unknown) 01/14/23 01/17/23 01/17/23 (units unknown) (unknown) (unknown) (no date) (unknown) (unknown) 01/17/23 05:25 (units unknown) (unknown) (unknown) (no date) (unknown) (unknown) 01/17/23 1046 (units unknown) (unknown) (unknown) (no date) (unknown) (unknown) 01/17/23 (units unknown) (unknown) (unknown) (no date) (unknown) (unknown) 04:00 01/17/23 (units unknown) (unknown) (unknown) (no date) (unknown) (unknown) 04:30 01/17/23 (units unknown) (unknown) (unknown) (no date) (unknown) (unknown) 05:25 (units unknown) (unknown) (unknown) (no date) (unknown) (unknown) 05:51 (units unknown) (unknown) (unknown) (no date) (unknown) (unknown) 08:10 01/17/23 (units unknown) (unknown) (unknown) (no date) (unknown) (unknown) 08:27 01/17/23 (units unknown) (unknown) (unknown) (no date) (unknown) (unknown) 09:28 (units unknown) (unknown) (unknown) (no date) (unknown) (unknown) 1. Alcohol dependenc e with withdrawal (units unknown) (unknown) (unknown) (no date) (unknown) (unknown) 10. Hyponatremia (units unknown) (unknown) (unknown) (no date) (unknown) (unknown) 11. Hypomagnesemia (units unknown) (unknown) (unknown) (no date) (unknown) (unknown) 12. Transaminitis (units unknown) (unknown) (unknown) (no date) (unknown) (unknown) 13. hypomagnesemia (units unknown) (unknown) (unknown) (no date) (unknown) (unknown) 2. Suicidal ideation (units unknown) (unknown) (unknown) (no date) (unknown) (unknown) 23:10 05:25 05:25 (units unknown) (unknown) (unknown) (no date) (unknown) (unknown) 3. Multiple falls secondary to gait instability (units unknown) (unknown) (unknown) (no date) (unknown) (unknown) 4. Paroxysmal atrial fibrillation (units unknown) (unknown) (unknown) (no date) (unknown) (unknown) 5. Diabetes mellitus , type unclear (units unknown) (unknown) (unknown) (no date) (unknown) (unknown) 6. Hypertension (units unknown) (unknown) (unknown) (no date) (unknown) (unknown) 7. Chronic pain syndrome (units unknown) (unknown) (unknown) (no date) (unknown) (unknown) 8. BPH (units unknown) (unknown) (unknown) (no date) (unknown) (unknown) 9. Anemia (units unknown) (unknown) (unknown) (no date) (unknown) (unknown) ABD: Soft, NT/ND, BT present in all 4 quadrants, no organomegaly or masses (units unknown) (unknown) (unknown) (no date) (unknown) (unknown) ALT 58 H (units unknown) (unknown) (unknown) (no date) (unknown) (unknown) ALT (units unknown) (unknown) (unknown) (no date) (unknown) (unknown) AST 54 (units unknown) (unknown) (unknown) (no date) (unknown) (unknown) AST (units unknown) (unknown) (unknown) (no date) (unknown) (unknown) Age/Sex: 53 / M (units unknown) (unknown) (unknown) (no date) (unknown) (unknown) Albumin 3.2 L (units unknown) (unknown) (unknown) (no date) (unknown) (unknown) Albumin (units unknown) (unknown) (unknown) (no date) (unknown) (unknown) Albumin/Globulin Ratio 1.2 (units unknown) (unknown) (unknown) (no date) (unknown) (unknown) Albumin/Globulin Ratio (units unknown) (unknown) (unknown) (no date) (unknown) (unknown) Alcohol intoxication (units unknown) (unknown) (unknown) (no date) (unknown) (unknown) Alkaline Phosphatase 111 (units unknown) (unknown) (unknown) (no date) (unknown) (unknown) Alkaline Phosphatase (units unknown) (unknown) (unknown) (no date) (unknown) (unknown) Assessment + Plan narrative: (units unknown) (unknown) (unknown) (no date) (unknown) (unknown) Assessment + Plan (units unknown) (unknown) (unknown) (no date) (unknown) (unknown) BPH (benign prostati c hyperplasia) (units unknown) (unknown) (unknown) (no date) (unknown) (unknown) BUN 14 (units unknown) (unknown) (unknown) (no date) (unknown) (unknown) BUN (units unknown) (unknown) (unknown) (no date) (unknown) (unknown) BUN/Creatinine Ratio 27.5 H (units unknown) (unknown) (unknown) (no date) (unknown) (unknown) BUN/Creatinine Ratio (units unknown) (unknown) (unknown) (no date) (unknown) (unknown) Baso # (Auto) 100 (units unknown) (unknown) (unknown) (no date) (unknown) (unknown) Baso # (Auto) (units unknown) (unknown) (unknown) (no date) (unknown) (unknown) Baso % (Auto) 1.5 (units unknown) (unknown) (unknown) (no date) (unknown) (unknown) Baso % (Auto) (units unknown) (unknown) (unknown) (no date) (unknown) (unknown) Blood Pressure 136/9 1 H 136/91 H 136/91 H (units unknown) (unknown) (unknown) (no date) (unknown) (unknown) Blood Pressure 141/8 0 H 149/89 H 144/87 H (units unknown) (unknown) (unknown) (no date) (unknown) (unknown) CHEST: Respiratory excursions symmetric, CTAB (units unknown) (unknown) (unknown) (no date) (unknown) (unknown) CV: RRR, no M/R/G (units unknown) (unknown) (unknown) (no date) (unknown) (unknown) Calcium 8.4 (units unknown) (unknown) (unknown) (no date) (unknown) (unknown) Calcium (units unknown) (unknown) (unknown) (no date) (unknown) (unknown) Carbon Dioxide 30 (units unknown) (unknown) (unknown) (no date) (unknown) (unknown) Carbon Dioxide (units unknown) (unknown) (unknown) (no date) (unknown) (unknown) Chloride 98 (units unknown) (unknown) (unknown) (no date) (unknown) (unknown) Chloride (units unknown) (unknown) (unknown) (no date) (unknown) (unknown) Chronic low back pain (units unknown) (unknown) (unknown) (no date) (unknown) (unknown) Code status (units unknown) (unknown) (unknown) (no date) (unknown) (unknown) Complains of continued headache, shakiness and nausea today. Some sensitivity to (units unknown) (unknown) (unknown) (no date) (unknown) (unknown) Congestive heart failure (units unknown) (unknown) (unknown) (no date) (unknown) (unknown) Continue Flomax (units unknown) (unknown) (unknown) (no date) (unknown) (unknown) Creatinine 0.51 L (units unknown) (unknown) (unknown) (no date) (unknown) (unknown) Creatinine (units unknown) (unknown) (unknown) (no date) (unknown) (unknown) : 1970 Acct:[id number] (units unknown) (unknown) (unknown) (no date) (unknown) (unknown) Date of Service: 01/14/23 (units unknown) (unknown) (unknown) (no date) (unknown) (unknown) Deep Vein Thrombosis/Pulmonary Embolism Present on Admission: No (units unknown) (unknown) (unknown) (no date) (unknown) (unknown) Disposition (units unknown) (unknown) (unknown) (no date) (unknown) (unknown) Does have prior history of DT, symptoms today are consistenth with withdrawal. (units unknown) (unknown) (unknown) (no date) (unknown) (unknown) EXTR: warm, well perfused, no C/C/E, scattered bruising noted to his arms, (units unknown) (unknown) (unknown) (no date) (unknown) (unknown) Eos # (Auto) 100 (units unknown) (unknown) (unknown) (no date) (unknown) (unknown) Eos # (Auto) (units unknown) (unknown) (unknown) (no date) (unknown) (unknown) Eos % (Auto) 3.5 (units unknown) (unknown) (unknown) (no date) (unknown) (unknown) Eos % (Auto) (units unknown) (unknown) (unknown) (no date) (unknown) (unknown) Essential hypertension (units unknown) (unknown) (unknown) (no date) (unknown) (unknown) Estim Average Glucos e 237 (units unknown) (unknown) (unknown) (no date) (unknown) (unknown) Estim Average Glucose (units unknown) (unknown) (unknown) (no date) (unknown) (unknown) Estimated GFR > 60 (units unknown) (unknown) (unknown) (no date) (unknown) (unknown) Estimated GFR (units unknown) (unknown) (unknown) (no date) (unknown) (unknown) Exam Narrative: (units unknown) (unknown) (unknown) (no date) (unknown) (unknown) Exam (units unknown) (unknown) (unknown) (no date) (unknown) (unknown) Family History (Updated 01/15/23 @ 02:24 by Genesis Dunn [facility]) (units unknown) (unknown) (unknown) (no date) (unknown) (unknown) Father Diabetes mellitus (units unknown) (unknown) (unknown) (no date) (unknown) (unknown) Full (units unknown) (unknown) (unknown) (no date) (unknown) (unknown) GEN: Alert and oriented x 3, no acute distress (units unknown) (unknown) (unknown) (no date) (unknown) (unknown) Globulin 2.7 (units unknown) (unknown) (unknown) (no date) (unknown) (unknown) Globulin (units unknown) (unknown) (unknown) (no date) (unknown) (unknown) Glucose 160 H (units unknown) (unknown) (unknown) (no date) (unknown) (unknown) Glucose (units unknown) (unknown) (unknown) (no date) (unknown) (unknown) HEENT:NC, Face symmetric (units unknown) (unknown) (unknown) (no date) (unknown) (unknown) Hct 35.0 L (units unknown) (unknown) (unknown) (no date) (unknown) (unknown) Hct (units unknown) (unknown) (unknown) (no date) (unknown) (unknown) Hgb 11.8 L (units unknown) (unknown) (unknown) (no date) (unknown) (unknown) Hgb A1c (Ref Lab) 9. 9 H (units unknown) (unknown) (unknown) (no date) (unknown) (unknown) Hgb A1c (Ref Lab) (units unknown) (unknown) (unknown) (no date) (unknown) (unknown) Hgb (units unknown) (unknown) (unknown) (no date) (unknown) (unknown) History of shoulder surgery (units unknown) (unknown) (unknown) (no date) (unknown) (unknown) However, echocardiogram ordered to assess for evidence of cardiomyopathy, (units unknown) (unknown) (unknown) (no date) (unknown) (unknown) Hyperlipidemia due t o type 1 diabetes mellitus (units unknown) (unknown) (unknown) (no date) (unknown) (unknown) Ideally discharge to inpatient treatment, timing in a couple of days given (units unknown) (unknown) (unknown) (no date) (unknown) (unknown) Interval history: (units unknown) (unknown) (unknown) (no date) (unknown) (unknown) [address] [id number] (units unknown) (unknown) (unknown) (no date) (unknown) (unknown) Laboratory Results - last 24 hr (units unknown) (unknown) (unknown) (no date) (unknown) (unknown) Labs (units unknown) (unknown) (unknown) (no date) (unknown) (unknown) Labs: (units unknown) (unknown) (unknown) (no date) (unknown) (unknown) 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 LFTs are presently improving. (units unknown) (unknown) (unknown) (no date) (unknown) (unknown) Lovenox ordered (units unknown) (unknown) (unknown) (no date) (unknown) (unknown) Lymph # (Auto) 1600 (units unknown) (unknown) (unknown) (no date) (unknown) (unknown) Lymph # (Auto) (units unknown) (unknown) (unknown) (no date) (unknown) (unknown) Lymph % (Auto) 39.1 (units unknown) (unknown) (unknown) (no date) (unknown) (unknown) Lymph % (Auto) (units unknown) (unknown) (unknown) (no date) (unknown) (unknown) MCH 32.6 (units unknown) (unknown) (unknown) (no date) (unknown) (unknown) MCH (units unknown) (unknown) (unknown) (no date) (unknown) (unknown) MCHC 33.7 (units unknown) (unknown) (unknown) (no date) (unknown) (unknown) MCHC (units unknown) (unknown) (unknown) (no date) (unknown) (unknown) MCV 96.6 (units unknown) (unknown) (unknown) (no date) (unknown) (unknown) MCV (units unknown) (unknown) (unknown) (no date) (unknown) (unknown) Magnesium 1.4 L (units unknown) (unknown) (unknown) (no date) (unknown) (unknown) Magnesium (units unknown) (unknown) (unknown) (no date) (unknown) (unknown) Medical History (units unknown) (unknown) (unknown) (no date) (unknown) (unknown) [place] # (Auto) 300 (units unknown) (unknown) (unknown) (no date) (unknown) (unknown) [place] # (Auto) (units unknown) (unknown) (unknown) (no date) (unknown) (unknown) [place] % (Auto) 8.3 (units unknown) (unknown) (unknown) (no date) (unknown) (unknown) [place] % (Auto) (units unknown) (unknown) (unknown) (no date) (unknown) (unknown) Mother Diabetes mellitus (units unknown) (unknown) (unknown) (no date) (unknown) (unknown) Multiple falls (units unknown) (unknown) (unknown) (no date) (unknown) (unknown) NEURO: Alert and oriented x 3, nonfocal but + tongue fasciculations and (units unknown) (unknown) (unknown) (no date) (unknown) (unknown) Narrative (units unknown) (unknown) (unknown) (no date) (unknown) (unknown) Neut # (Auto) 1900 (units unknown) (unknown) (unknown) (no date) (unknown) (unknown) Neut # (Auto) (units unknown) (unknown) (unknown) (no date) (unknown) (unknown) Neut % (Auto) 47.6 L (units unknown) (unknown) (unknown) (no date) (unknown) (unknown) Neut % (Auto) (units unknown) (unknown) (unknown) (no date) (unknown) (unknown) Normocytic. Likely secondary to alcohol-induced marrow suppression. (units unknown) (unknown) (unknown) (no date) (unknown) (unknown) Objective (units unknown) (unknown) (unknown) (no date) (unknown) (unknown) Oxygen Delivery Method Room Air (units unknown) (unknown) (unknown) (no date) (unknown) (unknown) Oxygen Flow Rate 0 (units unknown) (unknown) (unknown) (no date) (unknown) (unknown) PFSH (units unknown) (unknown) (unknown) (no date) (unknown) (unknown) Patient continues on Lantus and sliding scale. Certainly he could have insulin (units unknown) (unknown) (unknown) (no date) (unknown) (unknown) Patient has a healin g laceration to his right forehead, bruises to his arms, as (units unknown) (unknown) (unknown) (no date) (unknown) (unknown) Patient has a spinal stimulator in place as well as an intrathecal hydromorphone (units unknown) (unknown) (unknown) (no date) (unknown) (unknown) Patient has had multiple prior attempts from what his brother told me. No plan (units unknown) (unknown) (unknown) (no date) (unknown) (unknown) Patient is on lisinopril and propranolol. He did develop some hypotension (units unknown) (unknown) (unknown) (no date) (unknown) (unknown) Patient was noted to have an episode of AFib in the emergency department for (units unknown) (unknown) (unknown) (no date) (unknown) (unknown) Patient: Sj Romo MR#: [id number] (units unknown) (unknown) (unknown) (no date) (unknown) (unknown) Plt Count 306 (units unknown) (unknown) (unknown) (no date) (unknown) (unknown) Plt Count (units unknown) (unknown) (unknown) (no date) (unknown) (unknown) Potassium 3.9 (units unknown) (unknown) (unknown) (no date) (unknown) (unknown) Potassium (units unknown) (unknown) (unknown) (no date) (unknown) (unknown) Progress Note (units unknown) (unknown) (unknown) (no date) (unknown) (unknown) Prophylaxis (units unknown) (unknown) (unknown) (no date) (unknown) (unknown) Provider: Terry Gomez D.O. (units unknown) (unknown) (unknown) (no date) (unknown) (unknown) Pulse Oximetry 94 (units unknown) (unknown) (unknown) (no date) (unknown) (unknown) Pulse Oximetry 96 (units unknown) (unknown) (unknown) (no date) (unknown) (unknown) Pulse Rate 50 L 69 (units unknown) (unknown) (unknown) (no date) (unknown) (unknown) Pulse Rate 51 L 51 L 52 L (units unknown) (unknown) (unknown) (no date) (unknown) (unknown) Quality (units unknown) (unknown) (unknown) (no date) (unknown) (unknown) RBC 3.62 L (units unknown) (unknown) (unknown) (no date) (unknown) (unknown) RBC (units unknown) (unknown) (unknown) (no date) (unknown) (unknown) RDW 13.4 (units unknown) (unknown) (unknown) (no date) (unknown) (unknown) RDW (units unknown) (unknown) (unknown) (no date) (unknown) (unknown) Respiratory Rate 16 16 (units unknown) (unknown) (unknown) (no date) (unknown) (unknown) Respiratory Rate 18 16 16 (units unknown) (unknown) (unknown) (no date) (unknown) (unknown) SKIN: warm and dry, no rash, large dark bruise noted round his gluteal folds and (units unknown) (unknown) (unknown) (no date) (unknown) (unknown) Signed By:<Electronically signed by Terry Gomez D.O.> (units unknown) (unknown) (unknown) (no date) (unknown) (unknown) Smoking Status: Milagro huang smoker (units unknown) (unknown) (unknown) (no date) (unknown) (unknown) Social History (Updated 01/15/23 @ 02:23 by Genesis Dunn [facility]) (units unknown) (unknown) (unknown) (no date) (unknown) (unknown) Sodium 133 L (units unknown) (unknown) (unknown) (no date) (unknown) (unknown) Sodium is 133 today. Will monitor. (units unknown) (unknown) (unknown) (no date) (unknown) (unknown) Sodium (units unknown) (unknown) (unknown) (no date) (unknown) (unknown) Subjective (units unknown) (unknown) (unknown) (no date) (unknown) (unknown) Surgical History (units unknown) (unknown) (unknown) (no date) (unknown) (unknown) Temperature 97.1 F L (units unknown) (unknown) (unknown) (no date) (unknown) (unknown) Temperature 97.8 F (units unknown) (unknown) (unknown) (no date) (unknown) (unknown) Total Bilirubin 0.5 (units unknown) (unknown) (unknown) (no date) (unknown) (unknown) Total Bilirubin (units unknown) (unknown) (unknown) (no date) (unknown) (unknown) Total Protein 5.9 L (units unknown) (unknown) (unknown) (no date) (unknown) (unknown) Total Protein (units unknown) (unknown) (unknown) (no date) (unknown) (unknown) VTE (units unknown) (unknown) (unknown) (no date) (unknown) (unknown) Vital Signs (units unknown) (unknown) (unknown) (no date) (unknown) (unknown) WBC 4.1 L (units unknown) (unknown) (unknown) (no date) (unknown) (unknown) WBC (units unknown) (unknown) (unknown) (no date) (unknown) (unknown) Will monitor. (units unknown) (unknown) (unknown) (no date) (unknown) (unknown) [Embedded Image Not Available] (units unknown) (unknown) (unknown) (no date) (unknown) (unknown) a bit worse he feels. (units unknown) (unknown) (unknown) (no date) (unknown) (unknown) alcohol intake: current (units unknown) (unknown) (unknown) (no date) (unknown) (unknown) alone. 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 PT and OT ordered, will (units unknown) (unknown) (unknown) (no date) (unknown) (unknown) at this time but he notes he does not feel safe at home. Would likely benefit (units unknown) (unknown) (unknown) (no date) (unknown) (unknown) attempted librium yesterday previously but BP dipped, okay with 10 mg TID (units unknown) (unknown) (unknown) (no date) (unknown) (unknown) candidate for anticoagulation due to his alcohol dependence and frequent falls. (units unknown) (unknown) (unknown) (no date) (unknown) (unknown) continue CIWA protocol with prn benzos. (units unknown) (unknown) (unknown) (no date) (unknown) (unknown) continue prn repletion (units unknown) (unknown) (unknown) (no date) (unknown) (unknown) continued withdrawal symptoms, appreciate care management assistance in (units unknown) (unknown) (unknown) (no date) (unknown) (unknown) couple of weeks for refill. (units unknown) (unknown) (unknown) (no date) (unknown) (unknown) dependence. A bit unclear on when he was diagnosed and there is not any (units unknown) (unknown) (unknown) (no date) (unknown) (unknown) dependent diabetes secondary to pancreatic insufficiency related to his alcohol (units unknown) (unknown) (unknown) (no date) (unknown) (unknown) fingersticks, slidin g scale, and Lantus. (units unknown) (unknown) (unknown) (no date) (unknown) (unknown) from a program that does dual diagnosis. [employer] met with the patient today and (units unknown) (unknown) (unknown) (no date) (unknown) (unknown) household members: none (units unknown) (unknown) (unknown) (no date) (unknown) (unknown) information with regard to his diabetes in the medical record. We will continue (units unknown) (unknown) (unknown) (no date) (unknown) (unknown) inpatient transfer but remain uncertain if this is feasible. He is being (units unknown) (unknown) (unknown) (no date) (unknown) (unknown) light. Denies histor y of migraines. No other focal findings on exam. Tremors are (units unknown) (unknown) (unknown) (no date) (unknown) (unknown) placement. (units unknown) (unknown) (unknown) (no date) (unknown) (unknown) pump. He reports the pump was filled every 2 months and he is not due for a (units unknown) (unknown) (unknown) (no date) (unknown) (unknown) referred to [facility] by care management. (units unknown) (unknown) (unknown) (no date) (unknown) (unknown) right forearm. These all have occurred when he has been intoxicated and home (units unknown) (unknown) (unknown) (no date) (unknown) (unknown) sacrum (units unknown) (unknown) (unknown) (no date) (unknown) (unknown) see today. (units unknown) (unknown) (unknown) (no date) (unknown) (unknown) superficial lee noted to his right forearm (units unknown) (unknown) (unknown) (no date) (unknown) (unknown) today. Hypotension may have been from metoprolol in the ER as well for RVR. (units unknown) (unknown) (unknown) (no date) (unknown) (unknown) tremulousness. (units unknown) (unknown) (unknown) (no date) (unknown) (unknown) valvular disease LV dysfunction. (units unknown) (unknown) (unknown) (no date) (unknown) (unknown) well as his gluteal area/sacrum. He also has some superficial lee to his (units unknown) (unknown) (unknown) (no date) (unknown) (unknown) which he was given a dose of metoprolol. CHADS2 Vasc score is 2, consistent (units unknown) (unknown) (unknown) (no date) (unknown) (unknown) will work on [employer] resources. He would benefit most from inpatient to (units unknown) (unknown) (unknown) (no date) (unknown) (unknown) with a 2.2% stroke risk annually. Unfortunately, he would be a very poor (units unknown) (unknown) (unknown) (no date) (unknown) (unknown) yesterday, will increase back to 25 TID today given reported worsening tremor (units unknown) (unknown) (unknown) (no date) (unknown) (unknown) yesterday, with librium noted above will continue to hold today. (units unknown) (unknown) Result panel 265 (unknown) (no date) (unknown) (unknown) (no value) (units unknown) (unknown) (unknown) (no date) (unknown) (unknown) (past 8 hours): (units unknown) (unknown) (unknown) (no date) (unknown) (unknown) - okay to stop tele today. (units unknown) (unknown) (unknown) (no date) (unknown) (unknown) - repleted with IV, may be contributing to weakness. (units unknown) (unknown) (unknown) (no date) (unknown) (unknown) [id number] (units unknown) (unknown) (unknown) (no date) (unknown) (unknown) 01/17/23 05:25 (units unknown) (unknown) (unknown) (no date) (unknown) (unknown) 01/18/23 1520 (units unknown) (unknown) (unknown) (no date) (unknown) (unknown) 01/18/23 (units unknown) (unknown) (unknown) (no date) (unknown) (unknown) 08:00 01/18/23 (units unknown) (unknown) (unknown) (no date) (unknown) (unknown) 08:33 (units unknown) (unknown) (unknown) (no date) (unknown) (unknown) 1. Alcohol dependenc e with withdrawal (units unknown) (unknown) (unknown) (no date) (unknown) (unknown) 10. Hyponatremia (units unknown) (unknown) (unknown) (no date) (unknown) (unknown) 11. Hypomagnesemia (units unknown) (unknown) (unknown) (no date) (unknown) (unknown) 12. Transaminitis (units unknown) (unknown) (unknown) (no date) (unknown) (unknown) 13. hypomagnesemia (units unknown) (unknown) (unknown) (no date) (unknown) (unknown) 2. Suicidal ideation (units unknown) (unknown) (unknown) (no date) (unknown) (unknown) 3. Multiple falls secondary to gait instability (units unknown) (unknown) (unknown) (no date) (unknown) (unknown) 4. Paroxysmal atrial fibrillation (units unknown) (unknown) (unknown) (no date) (unknown) (unknown) 5. Diabetes mellitus , type unclear (units unknown) (unknown) (unknown) (no date) (unknown) (unknown) 6. Hypertension (units unknown) (unknown) (unknown) (no date) (unknown) (unknown) 7. Chronic pain syndrome (units unknown) (unknown) (unknown) (no date) (unknown) (unknown) 8. BPH (units unknown) (unknown) (unknown) (no date) (unknown) (unknown) 9. Anemia (units unknown) (unknown) (unknown) (no date) (unknown) (unknown) ABD: Soft, NT/ND, BT present in all 4 quadrants, no organomegaly or masses (units unknown) (unknown) (unknown) (no date) (unknown) (unknown) Age/Sex: 53 / M (units unknown) (unknown) (unknown) (no date) (unknown) (unknown) Alcohol intoxication (units unknown) (unknown) (unknown) (no date) (unknown) (unknown) Assessment + Plan narrative: (units unknown) (unknown) (unknown) (no date) (unknown) (unknown) Assessment + Plan (units unknown) (unknown) (unknown) (no date) (unknown) (unknown) BPH (benign prostati c hyperplasia) (units unknown) (unknown) (unknown) (no date) (unknown) (unknown) Blood Pressure 127/9 5 H 127/95 H (units unknown) (unknown) (unknown) (no date) (unknown) (unknown) CHEST: Respiratory excursions symmetric, CTAB (units unknown) (unknown) (unknown) (no date) (unknown) (unknown) CV: RRR, no M/R/G (units unknown) (unknown) (unknown) (no date) (unknown) (unknown) Chronic low back pain (units unknown) (unknown) (unknown) (no date) (unknown) (unknown) Code status (units unknown) (unknown) (unknown) (no date) (unknown) (unknown) Complains of continued headache, shakiness and nausea today though slight (units unknown) (unknown) (unknown) (no date) (unknown) (unknown) Congestive heart failure (units unknown) (unknown) (unknown) (no date) (unknown) (unknown) Continue Flomax (units unknown) (unknown) (unknown) (no date) (unknown) (unknown) : 1970 Acct:[id number] (units unknown) (unknown) (unknown) (no date) (unknown) (unknown) Date of Service: 01/14/23 (units unknown) (unknown) (unknown) (no date) (unknown) (unknown) Deep Vein Thrombosis/Pulmonary Embolism Present on Admission: No (units unknown) (unknown) (unknown) (no date) (unknown) (unknown) Disposition (units unknown) (unknown) (unknown) (no date) (unknown) (unknown) Does have prior history of DT, symptoms today are consistent with withdrawal (units unknown) (unknown) (unknown) (no date) (unknown) (unknown) EXTR: warm, well perfused, no C/C/E, scattered bruising noted to his arms, (units unknown) (unknown) (unknown) (no date) (unknown) (unknown) Essential hypertension (units unknown) (unknown) (unknown) (no date) (unknown) (unknown) Exam Narrative: (units unknown) (unknown) (unknown) (no date) (unknown) (unknown) Exam (units unknown) (unknown) (unknown) (no date) (unknown) (unknown) Family History (Updated 01/15/23 @ 02:24 by Genesis Dunn [facility]) (units unknown) (unknown) (unknown) (no date) (unknown) (unknown) Father Diabetes mellitus (units unknown) (unknown) (unknown) (no date) (unknown) (unknown) Full (units unknown) (unknown) (unknown) (no date) (unknown) (unknown) GEN: Alert and oriented x 3, no acute distress (units unknown) (unknown) (unknown) (no date) (unknown) (unknown) HEENT:NC, Face symmetric (units unknown) (unknown) (unknown) (no date) (unknown) (unknown) History of shoulder surgery (units unknown) (unknown) (unknown) (no date) (unknown) (unknown) Hyperlipidemia due t o type 1 diabetes mellitus (units unknown) (unknown) (unknown) (no date) (unknown) (unknown) Ideally discharge to inpatient treatment, though this is unlikely. 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 LFTs are presently improving. (units unknown) (unknown) (unknown) (no date) (unknown) (unknown) Lovenox ordered (units unknown) (unknown) (unknown) (no date) (unknown) (unknown) Medical History (units unknown) (unknown) (unknown) (no date) (unknown) (unknown) Mild, Will monitor. (units unknown) (unknown) (unknown) (no date) (unknown) (unknown) Mother Diabetes mellitus (units unknown) (unknown) (unknown) (no date) (unknown) (unknown) Multiple falls (units unknown) (unknown) (unknown) (no date) (unknown) (unknown) NEURO: Alert and oriented x 3, nonfocal but + tongue fasciculations and (units unknown) (unknown) (unknown) (no date) (unknown) (unknown) Narrative (units unknown) (unknown) (unknown) (no date) (unknown) (unknown) Normocytic. Likely secondary to alcohol-induced marrow suppression. (units unknown) (unknown) (unknown) (no date) (unknown) (unknown) Objective (units unknown) (unknown) (unknown) (no date) (unknown) (unknown) Oxygen Delivery Method Room Air (units unknown) (unknown) (unknown) (no date) (unknown) (unknown) Oxygen Flow Rate 0 (units unknown) (unknown) (unknown) (no date) (unknown) (unknown) PFSH (units unknown) (unknown) (unknown) (no date) (unknown) (unknown) Patient continues on Lantus and sliding scale. Certainly he could have insulin (units unknown) (unknown) (unknown) (no date) (unknown) (unknown) Patient has a healin g laceration to his right forehead, bruises to his arms, as (units unknown) (unknown) (unknown) (no date) (unknown) (unknown) Patient has a spinal stimulator in place as well as an intrathecal hydromorphone (units unknown) (unknown) (unknown) (no date) (unknown) (unknown) Patient has had multiple prior attempts from what his brother told me. No plan (units unknown) (unknown) (unknown) (no date) (unknown) (unknown) Patient is on lisinopril and propranolol. He did develop some hypotension (units unknown) (unknown) (unknown) (no date) (unknown) (unknown) Patient was noted to have an episode of AFib in the emergency department for (units unknown) (unknown) (unknown) (no date) (unknown) (unknown) Patient: Sj Romo MR#: [id number] (units unknown) (unknown) (unknown) (no date) (unknown) (unknown) Progress Note (units unknown) (unknown) (unknown) (no date) (unknown) (unknown) Prophylaxis (units unknown) (unknown) (unknown) (no date) (unknown) (unknown) Provider: Terry Gomez D.O. (units unknown) (unknown) (unknown) (no date) (unknown) (unknown) Pulse Oximetry 97 (units unknown) (unknown) (unknown) (no date) (unknown) (unknown) Pulse Rate 69 (units unknown) (unknown) (unknown) (no date) (unknown) (unknown) Quality (units unknown) (unknown) (unknown) (no date) (unknown) (unknown) Respiratory Rate 16 (units unknown) (unknown) (unknown) (no date) (unknown) (unknown) SKIN: warm and dry, no rash, large dark bruise noted round his gluteal folds and (units unknown) (unknown) (unknown) (no date) (unknown) (unknown) Signed By:<Electronically signed by Terry Gomez D.O.> (units unknown) (unknown) (unknown) (no date) (unknown) (unknown) Smoking Status: Milagro huang smoker (units unknown) (unknown) (unknown) (no date) (unknown) (unknown) Social History (Updated 01/15/23 @ 02:23 by Genesis Dunn [facility]) (units unknown) (unknown) (unknown) (no date) (unknown) (unknown) Subjective (units unknown) (unknown) (unknown) (no date) (unknown) (unknown) Surgical History (units unknown) (unknown) (unknown) (no date) (unknown) (unknown) Temperature 97.5 F L (units unknown) (unknown) (unknown) (no date) (unknown) (unknown) VTE (units unknown) (unknown) (unknown) (no date) (unknown) (unknown) Vital Signs (units unknown) (unknown) (unknown) (no date) (unknown) (unknown) Will monitor. (units unknown) (unknown) (unknown) (no date) (unknown) (unknown) [Embedded Image Not Available] (units unknown) (unknown) (unknown) (no date) (unknown) (unknown) alcohol intake: current (units unknown) (unknown) (unknown) (no date) (unknown) (unknown) alone. 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 PT and OT ordered, will (units unknown) (unknown) (unknown) (no date) (unknown) (unknown) and this has not recurred. TTE was unremarkable. (units unknown) (unknown) (unknown) (no date) (unknown) (unknown) at this time but he notes he does not feel safe at home. Would likely benefit (units unknown) (unknown) (unknown) (no date) (unknown) (unknown) attempted librium previously but BP dipped, but may have been due to medications (units unknown) (unknown) (unknown) (no date) (unknown) (unknown) candidate for anticoagulation due to his alcohol dependence and frequent falls (units unknown) (unknown) (unknown) (no date) (unknown) (unknown) continue CIWA protocol with prn benzos. (units unknown) (unknown) (unknown) (no date) (unknown) (unknown) continue prn repletion (units unknown) (unknown) (unknown) (no date) (unknown) (unknown) couple of weeks for refill. (units unknown) (unknown) (unknown) (no date) (unknown) (unknown) dependence. A bit unclear on when he was diagnosed and there is not any (units unknown) (unknown) (unknown) (no date) (unknown) (unknown) dependent diabetes secondary to pancreatic insufficiency related to his alcohol (units unknown) (unknown) (unknown) (no date) (unknown) (unknown) discharge home once withdrawal symptoms are improved. (units unknown) (unknown) (unknown) (no date) (unknown) (unknown) fingersticks, slidin g scale, and Lantus. (units unknown) (unknown) (unknown) (no date) (unknown) (unknown) for RVR. Now increased back to 25 TID. With shakiness thought of increasing but (units unknown) (unknown) (unknown) (no date) (unknown) (unknown) from a program that does dual diagnosis. [employer] met with the patient today and (units unknown) (unknown) (unknown) (no date) (unknown) (unknown) household members: none (units unknown) (unknown) (unknown) (no date) (unknown) (unknown) improvement. Continues to have tremors and difficulty with ambulation. (units unknown) (unknown) (unknown) (no date) (unknown) (unknown) information with regard to his diabetes in the medical record. We will continue (units unknown) (unknown) (unknown) (no date) (unknown) (unknown) inpatient transfer but this is hightly unlikely despite patient and care (units unknown) (unknown) (unknown) (no date) (unknown) (unknown) management searching multiple facilities. Complicated due to patient's chronic (units unknown) (unknown) (unknown) (no date) (unknown) (unknown) medical conditions including stimulator and hydromorphone pump. (units unknown) (unknown) (unknown) (no date) (unknown) (unknown) pump. He reports the pump was filled every 2 months and he is not due for a (units unknown) (unknown) (unknown) (no date) (unknown) (unknown) right forearm. These all have occurred when he has been intoxicated and home (units unknown) (unknown) (unknown) (no date) (unknown) (unknown) sacrum (units unknown) (unknown) (unknown) (no date) (unknown) (unknown) see today. (units unknown) (unknown) (unknown) (no date) (unknown) (unknown) still. (units unknown) (unknown) (unknown) (no date) (unknown) (unknown) superficial lee noted to his right forearm (units unknown) (unknown) (unknown) (no date) (unknown) (unknown) symptoms are still fairly mild and will keep same dose today. (units unknown) (unknown) (unknown) (no date) (unknown) (unknown) tremulousness. (units unknown) (unknown) (unknown) (no date) (unknown) (unknown) well as his gluteal area/sacrum. He also has some superficial lee to his (units unknown) (unknown) (unknown) (no date) (unknown) (unknown) which he was given a dose of metoprolol. CHADS2 Vasc score is 2, consistent (units unknown) (unknown) (unknown) (no date) (unknown) (unknown) will work on [employer]. He would benefit most from inpatient to (units unknown) (unknown) (unknown) (no date) (unknown) (unknown) with a 2.2% stroke risk annually. Unfortunately, he would be a very poor (units unknown) (unknown) (unknown) (no date) (unknown) (unknown) yesterday, with librium noted above will continue to hold today. (units unknown) (unknown) Result panel 266 (unknown) (no date) (unknown) (unknown) 0 /ul (unknown) (unknown) (no date) (unknown) (unknown) 1.0 % (unknown) (unknown) (no date) (unknown) (unknown) 12.1 g/dl (unknown) (unknown) (no date) (unknown) (unknown) 13.4 % (unknown) (unknown) (no date) (unknown) (unknown) 1500 /ul (unknown) (unknown) (no date) (unknown) (unknown) 2700 /ul (unknown) (unknown) (no date) (unknown) (unknown) 3.73 x10 6/ul (unknown) (unknown) (no date) (unknown) (unknown) 30.8 % (unknown) (unknown) (no date) (unknown) (unknown) 300 /ul (unknown) (unknown) (no date) (unknown) (unknown) 32.5 pg (unknown) (unknown) (no date) (unknown) (unknown) 321 x10 3/ul (unknown) (unknown) (no date) (unknown) (unknown) 33.6 % (unknown) (unknown) (no date) (unknown) (unknown) 36.0 % (unknown) (unknown) (no date) (unknown) (unknown) 4.9 x10 3/ul (unknown) (unknown) (no date) (unknown) (unknown) 400 /ul (unknown) (unknown) (no date) (unknown) (unknown) 5.2 % (unknown) (unknown) (no date) (unknown) (unknown) 55.3 % (unknown) (unknown) (no date) (unknown) (unknown) 7.7 % (unknown) (unknown) (no date) (unknown) (unknown) 96.6 fl (unknown) Result panel 267 (unknown) (no date) (unknown) (unknown) > 60 ml/min (unknown) (unknown) (no date) (unknown) (unknown) > 60 ml/min (unknown) (unknown) (no date) (unknown) (unknown) 0.60 mg/dl (unknown) (unknown) (no date) (unknown) (unknown) 1.4 mg/dl (unknown) (unknown) (no date) (unknown) (unknown) 100 mmol/l (unknown) (unknown) (no date) (unknown) (unknown) 12 mg/dl (unknown) (unknown) (no date) (unknown) (unknown) 137 mmol/l (unknown) (unknown) (no date) (unknown) (unknown) 139 mg/dl (unknown) (unknown) (no date) (unknown) (unknown) 139 mg/dl (unknown) (unknown) (no date) (unknown) (unknown) 20.0 (units unknown) (unknown) (unknown) (no date) (unknown) (unknown) 29 mmol/l (unknown) (unknown) (no date) (unknown) (unknown) 3.9 mmol/l (unknown) (unknown) (no date) (unknown) (unknown) 8.8 mg/dl (unknown) Result panel 268 (unknown) (no date) (unknown) (unknown) (no value) (units unknown) (unknown) (unknown) (no date) (unknown) (unknown) (past 8 hours): (units unknown) (unknown) (unknown) (no date) (unknown) (unknown) - okay to stop tele today. (units unknown) (unknown) (unknown) (no date) (unknown) (unknown) 0.4 mg PO DAILY (units unknown) (unknown) (unknown) (no date) (unknown) (unknown) [id number] (units unknown) (unknown) (unknown) (no date) (unknown) (unknown) 03:30 01/19/23 (units unknown) (unknown) (unknown) (no date) (unknown) (unknown) 03:33 01/19/23 (units unknown) (unknown) (unknown) (no date) (unknown) (unknown) 01/14/23 22:12 (units unknown) (unknown) (unknown) (no date) (unknown) (unknown) 01/14/23 22:26 (units unknown) (unknown) (unknown) (no date) (unknown) (unknown) 01/14/23 22:37 (units unknown) (unknown) (unknown) (no date) (unknown) (unknown) 01/14/23 22:38 (units unknown) (unknown) (unknown) (no date) (unknown) (unknown) 01/15/23 18:02 (units unknown) (unknown) (unknown) (no date) (unknown) (unknown) 01/16/23 12:41 (units unknown) (unknown) (unknown) (no date) (unknown) (unknown) 01/16/23 14:55 (units unknown) (unknown) (unknown) (no date) (unknown) (unknown) 01/19/23 01/19/23 (units unknown) (unknown) (unknown) (no date) (unknown) (unknown) 01/19/23 06:23 (units unknown) (unknown) (unknown) (no date) (unknown) (unknown) 01/19/23 (units unknown) (unknown) (unknown) (no date) (unknown) (unknown) 06:23 06:23 (units unknown) (unknown) (unknown) (no date) (unknown) (unknown) 07:00 (units unknown) (unknown) (unknown) (no date) (unknown) (unknown) 08:42 (units unknown) (unknown) (unknown) (no date) (unknown) (unknown) 1. Alcohol dependenc e with withdrawal (units unknown) (unknown) (unknown) (no date) (unknown) (unknown) 10. Hyponatremia (units unknown) (unknown) (unknown) (no date) (unknown) (unknown) 100 mg PO DAILY (units unknown) (unknown) (unknown) (no date) (unknown) (unknown) 11. Hypomagnesemia (units unknown) (unknown) (unknown) (no date) (unknown) (unknown) 12. Transaminitis (units unknown) (unknown) (unknown) (no date) (unknown) (unknown) 13. hypomagnesemia (units unknown) (unknown) (unknown) (no date) (unknown) (unknown) 2. Suicidal ideation (units unknown) (unknown) (unknown) (no date) (unknown) (unknown) 20 mg PO BID (units unknown) (unknown) (unknown) (no date) (unknown) (unknown) 20 mg PO DAILY (units unknown) (unknown) (unknown) (no date) (unknown) (unknown) 20 unit SUBCUT BEDTIME (units unknown) (unknown) (unknown) (no date) (unknown) (unknown) 25 mg orally three times daily for 2 days, then 25mg twice daily for 2 days, (units unknown) (unknown) (unknown) (no date) (unknown) (unknown) 3. Multiple falls secondary to gait instability (units unknown) (unknown) (unknown) (no date) (unknown) (unknown) 4. Paroxysmal atrial fibrillation (units unknown) (unknown) (unknown) (no date) (unknown) (unknown) 40 mg PO BEDTIME (units unknown) (unknown) (unknown) (no date) (unknown) (unknown) 5. Diabetes mellitus , type unclear (units unknown) (unknown) (unknown) (no date) (unknown) (unknown) 6. Hypertension (units unknown) (unknown) (unknown) (no date) (unknown) (unknown) 7. Chronic pain syndrome (units unknown) (unknown) (unknown) (no date) (unknown) (unknown) 8. BPH (units unknown) (unknown) (unknown) (no date) (unknown) (unknown) 9. Anemia (units unknown) (unknown) (unknown) (no date) (unknown) (unknown) ?- repleted with IV, may be contributing to weakness. (units unknown) (unknown) (unknown) (no date) (unknown) (unknown) ABD: Soft, NT/ND, BT present in all 4 quadrants, no organomegaly or masses (units unknown) (unknown) (unknown) (no date) (unknown) (unknown) ADMINISTER 2 TO 10 UNITS UNDER THE SKIN BEFORE MEALS AND AT BEDTIME (units unknown) (unknown) (unknown) (no date) (unknown) (unknown) ADMINISTER 20 UNITS UNDER THE SKIN EVERY EVENING (units unknown) (unknown) (unknown) (no date) (unknown) (unknown) Age/Sex: 53 / M (units unknown) (unknown) (unknown) (no date) (unknown) (unknown) Alcohol intoxication (units unknown) (unknown) (unknown) (no date) (unknown) (unknown) BPH (benign prostati c hyperplasia) (units unknown) (unknown) (unknown) (no date) (unknown) (unknown) BUN 12 (units unknown) (unknown) (unknown) (no date) (unknown) (unknown) BUN/Creatinine Ratio 20.0 (units unknown) (unknown) (unknown) (no date) (unknown) (unknown) Baso # (Auto) 0 (units unknown) (unknown) (unknown) (no date) (unknown) (unknown) Baso % (Auto) 1.0 (units unknown) (unknown) (unknown) (no date) (unknown) (unknown) Behavioral Health Assess (units unknown) (unknown) (unknown) (no date) (unknown) (unknown) Blood Pressure 127/7 4 127/74 127/85 (units unknown) (unknown) (unknown) (no date) (unknown) (unknown) Blood Pressure 127/85 (units unknown) (unknown) (unknown) (no date) (unknown) (unknown) CHEST: Respiratory excursions symmetric, CTAB (units unknown) (unknown) (unknown) (no date) (unknown) (unknown) CV: RRR, no M/R/G (units unknown) (unknown) (unknown) (no date) (unknown) (unknown) Calcium 8.8 (units unknown) (unknown) (unknown) (no date) (unknown) (unknown) Carbon Dioxide 29 (units unknown) (unknown) (unknown) (no date) (unknown) (unknown) Chief complaint: Trauma (units unknown) (unknown) (unknown) (no date) (unknown) (unknown) Chloride 100 (units unknown) (unknown) (unknown) (no date) (unknown) (unknown) Chronic low back pain (units unknown) (unknown) (unknown) (no date) (unknown) (unknown) Comment: ETOH Abuse, SI (units unknown) (unknown) (unknown) (no date) (unknown) (unknown) Comment: Wound care (units unknown) (unknown) (unknown) (no date) (unknown) (unknown) Comment: (units unknown) (unknown) (unknown) (no date) (unknown) (unknown) Congestive heart failure (units unknown) (unknown) (unknown) (no date) (unknown) (unknown) Consult to Dietitian , Adult Routine (units unknown) (unknown) (unknown) (no date) (unknown) (unknown) Consult to Home Health Routine (units unknown) (unknown) (unknown) (no date) (unknown) (unknown) Consult to [facility] [place] - 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 Routine (units unknown) (unknown) (unknown) (no date) (unknown) (unknown) Consult to Occupational Therapy Evaluate + Treat (units unknown) (unknown) (unknown) (no date) (unknown) (unknown) Consult to Physical Therapy Evaluate + Treat (units unknown) (unknown) (unknown) (no date) (unknown) (unknown) Consults: (units unknown) (unknown) (unknown) (no date) (unknown) (unknown) Continue Flomax (units unknown) (unknown) (unknown) (no date) (unknown) (unknown) Continued (units unknown) (unknown) (unknown) (no date) (unknown) (unknown) Creatinine 0.60 L (units unknown) (unknown) (unknown) (no date) (unknown) (unknown) : 1970 Acct:[id number] (units unknown) (unknown) (unknown) (no date) (unknown) (unknown) Date Patient Seen: 01/14/23 (units unknown) (unknown) (unknown) (no date) (unknown) (unknown) Date of Service: 01/14/23 (units unknown) (unknown) (unknown) (no date) (unknown) (unknown) Date of admission: (units unknown) (unknown) (unknown) (no date) (unknown) (unknown) Deep Vein Thrombosis/Pulmonary Embolism Present on Admission: No (units unknown) (unknown) (unknown) (no date) (unknown) (unknown) Discharge Date: 01/19/23 (units unknown) (unknown) (unknown) (no date) (unknown) (unknown) Discharge Diagnosis: (units unknown) (unknown) (unknown) (no date) (unknown) (unknown) Discharge Plan (units unknown) (unknown) (unknown) (no date) (unknown) (unknown) Discharge Providers (units unknown) (unknown) (unknown) (no date) (unknown) (unknown) Discharge Summary (units unknown) (unknown) (unknown) (no date) (unknown) (unknown) Discharge orders + Medications (units unknown) (unknown) (unknown) (no date) (unknown) (unknown) Discharge provider: (units unknown) (unknown) (unknown) (no date) (unknown) (unknown) Does have prior history of DT, symptoms today are consistent with withdrawal (units unknown) (unknown) (unknown) (no date) (unknown) (unknown) EXTR: warm, well perfused, no C/C/E, scattered bruising noted to his arms, (units unknown) (unknown) (unknown) (no date) (unknown) (unknown) Eos # (Auto) 300 (units unknown) (unknown) (unknown) (no date) (unknown) (unknown) Eos % (Auto) 5.2 H (units unknown) (unknown) (unknown) (no date) (unknown) (unknown) Essential hypertension (units unknown) (unknown) (unknown) (no date) (unknown) (unknown) Estimated GFR > 60 (units unknown) (unknown) (unknown) (no date) (unknown) (unknown) Exam Narrative: (units unknown) (unknown) (unknown) (no date) (unknown) (unknown) Exam (units unknown) (unknown) (unknown) (no date) (unknown) (unknown) Family History (Updated 01/15/23 @ 02:24 by Genesis Dunn [facility]) (units unknown) (unknown) (unknown) (no date) (unknown) (unknown) Father Diabetes mellitus (units unknown) (unknown) (unknown) (no date) (unknown) (unknown) GEN: Alert and oriented x 3, no acute distress (units unknown) (unknown) (unknown) (no date) (unknown) (unknown) Glucose 139 H (units unknown) (unknown) (unknown) (no date) (unknown) (unknown) HEENT:NC, Face symmetric (units unknown) (unknown) (unknown) (no date) (unknown) (unknown) HLD, BPH, insulin-dependent diabetes and chronic low back pain tx with InterStim (units unknown) (unknown) (unknown) (no date) (unknown) (unknown) Hct 36.0 L (units unknown) (unknown) (unknown) (no date) (unknown) (unknown) Hgb 12.1 L (units unknown) (unknown) (unknown) (no date) (unknown) (unknown) History of Present Illness (units unknown) (unknown) (unknown) (no date) (unknown) (unknown) History of shoulder surgery (units unknown) (unknown) (unknown) (no date) (unknown) (unknown) Hospital Course (units unknown) (unknown) (unknown) (no date) (unknown) (unknown) Hyperlipidemia due t o type 1 diabetes mellitus (units unknown) (unknown) (unknown) (no date) (unknown) (unknown) [address] [address] (units unknown) (unknown) (unknown) (no date) (unknown) (unknown) Laboratory Results - last 24 hr (units unknown) (unknown) (unknown) (no date) (unknown) (unknown) Labs (units unknown) (unknown) (unknown) (no date) (unknown) (unknown) Labs: (units unknown) (unknown) (unknown) (no date) (unknown) (unknown) 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 LFTs are presently improving.? (units unknown) (unknown) (unknown) (no date) (unknown) (unknown) Lymph # (Auto) 1500 (units unknown) (unknown) (unknown) (no date) (unknown) (unknown) Lymph % (Auto) 30.8 (units unknown) (unknown) (unknown) (no date) (unknown) (unknown) MCH 32.5 (units unknown) (unknown) (unknown) (no date) (unknown) (unknown) MCHC 33.6 (units unknown) (unknown) (unknown) (no date) (unknown) (unknown) MCV 96.6 (units unknown) (unknown) (unknown) (no date) (unknown) (unknown) [facility] [facility] Consult needed for:: Substance Abuse Assess (units unknown) (unknown) (unknown) (no date) (unknown) (unknown) Magnesium 1.4 L (units unknown) (unknown) (unknown) (no date) (unknown) (unknown) Luca Dillard, DO (units unknown) (unknown) (unknown) (no date) (unknown) (unknown) Medical History (units unknown) (unknown) (unknown) (no date) (unknown) (unknown) Sj Romo is a 53-year-old male with known history of alcohol abuse, HTN, (units unknown) (unknown) (unknown) (no date) (unknown) (unknown) Mild, Will monitor. (units unknown) (unknown) (unknown) (no date) (unknown) (unknown) [place] # (Auto) 400 (units unknown) (unknown) (unknown) (no date) (unknown) (unknown) [place] % (Auto) 7.7 (units unknown) (unknown) (unknown) (no date) (unknown) (unknown) Mother Diabetes mellitus (units unknown) (unknown) (unknown) (no date) (unknown) (unknown) Multiple falls (units unknown) (unknown) (unknown) (no date) (unknown) (unknown) NEURO: Alert and oriented x 3, nonfocal but + tongue fasciculations and (units unknown) (unknown) (unknown) (no date) (unknown) (unknown) Narrative (units unknown) (unknown) (unknown) (no date) (unknown) (unknown) Narrative: (units unknown) (unknown) (unknown) (no date) (unknown) (unknown) Neut # (Auto) 2700 (units unknown) (unknown) (unknown) (no date) (unknown) (unknown) Neut % (Auto) 55.3 (units unknown) (unknown) (unknown) (no date) (unknown) (unknown) New (units unknown) (unknown) (unknown) (no date) (unknown) (unknown) Normocytic.? Likely secondary to alcohol-induced marrow suppression. (units unknown) (unknown) (unknown) (no date) (unknown) (unknown) Objective (units unknown) (unknown) (unknown) (no date) (unknown) (unknown) Oxygen Delivery Method Room Air (units unknown) (unknown) (unknown) (no date) (unknown) (unknown) Oxygen Flow Rate 0 0 (units unknown) (unknown) (unknown) (no date) (unknown) (unknown) Oxygen Flow Rate 0 (units unknown) (unknown) (unknown) (no date) (unknown) (unknown) Oxygen Flow Rate (units unknown) (unknown) (unknown) (no date) (unknown) (unknown) PFSH (units unknown) (unknown) (unknown) (no date) (unknown) (unknown) Patient Comments: (units unknown) (unknown) (unknown) (no date) (unknown) (unknown) Patient Disposition: Home (units unknown) (unknown) (unknown) (no date) (unknown) (unknown) Patient continues on Lantus and sliding scale. Certainly he could have insulin (units unknown) (unknown) (unknown) (no date) (unknown) (unknown) Patient has a healin g laceration to his right forehead, bruises to his arms, as (units unknown) (unknown) (unknown) (no date) (unknown) (unknown) Patient has a spinal stimulator in place as well as an intrathecal hydromorphone (units unknown) (unknown) (unknown) (no date) (unknown) (unknown) Patient has had multiple prior attempts from what his brother told me.? No plan (units unknown) (unknown) (unknown) (no date) (unknown) (unknown) Patient is on lisinopril and propranolol.? He did develop some hypotension (units unknown) (unknown) (unknown) (no date) (unknown) (unknown) Patient was noted to have an episode of AFib in the emergency department for (units unknown) (unknown) (unknown) (no date) (unknown) (unknown) Patient: DemetriusSj Glenny MR#: [id number] (units unknown) (unknown) (unknown) (no date) (unknown) (unknown) Physician Instructions: Evaluate and Treat (units unknown) (unknown) (unknown) (no date) (unknown) (unknown) Physician Instructions: Evaluate and treat (units unknown) (unknown) (unknown) (no date) (unknown) (unknown) Plt Count 321 (units unknown) (unknown) (unknown) (no date) (unknown) (unknown) Potassium 3.9 (units unknown) (unknown) (unknown) (no date) (unknown) (unknown) Prescriptions: (units unknown) (unknown) (unknown) (no date) (unknown) (unknown) Provider (units unknown) (unknown) (unknown) (no date) (unknown) (unknown) Provider: Luca Dillard D.O. (units unknown) (unknown) (unknown) (no date) (unknown) (unknown) Pulse Oximetry 96 95 (units unknown) (unknown) (unknown) (no date) (unknown) (unknown) Pulse Oximetry (units unknown) (unknown) (unknown) (no date) (unknown) (unknown) Pulse Rate 60 60 68 (units unknown) (unknown) (unknown) (no date) (unknown) (unknown) Pulse Rate (units unknown) (unknown) (unknown) (no date) (unknown) (unknown) Quality (units unknown) (unknown) (unknown) (no date) (unknown) (unknown) RBC 3.73 L (units unknown) (unknown) (unknown) (no date) (unknown) (unknown) RDW 13.4 (units unknown) (unknown) (unknown) (no date) (unknown) (unknown) Reason For Exam: Arrange Home Health with [facility] program (units unknown) (unknown) (unknown) (no date) (unknown) (unknown) Reason For Exam: DM, ETOH abuse (units unknown) (unknown) (unknown) (no date) (unknown) (unknown) Respiratory Rate 17 17 18 (units unknown) (unknown) (unknown) (no date) (unknown) (unknown) Respiratory Rate (units unknown) (unknown) (unknown) (no date) (unknown) (unknown) Rx Instructions: (units unknown) (unknown) (unknown) (no date) (unknown) (unknown) SKIN: warm and dry, no rash, large dark bruise noted round his gluteal folds and (units unknown) (unknown) (unknown) (no date) (unknown) (unknown) See Rx Instructions .ROUTE .COMPLEX Qty: 12 0RF (units unknown) (unknown) (unknown) (no date) (unknown) (unknown) See Rx Instructions .ROUTE .COMPLEX (units unknown) (unknown) (unknown) (no date) (unknown) (unknown) Signed By: (units unknown) (unknown) (unknown) (no date) (unknown) (unknown) Smoking Status: Milagro huang smoker (units unknown) (unknown) (unknown) (no date) (unknown) (unknown) Social History (Updated 01/15/23 @ 02:23 by DOUG Chairez) (units unknown) (unknown) (unknown) (no date) (unknown) (unknown) Sodium 137 (units unknown) (unknown) (unknown) (no date) (unknown) (unknown) Stand Alone Forms: Patient Portal/API, Stroke Signs + Symptoms (units unknown) (unknown) (unknown) (no date) (unknown) (unknown) Summary (units unknown) (unknown) (unknown) (no date) (unknown) (unknown) Surgical History (units unknown) (unknown) (unknown) (no date) (unknown) (unknown) TAKE 1 CAPSULE BY MOUTH DAILY (units unknown) (unknown) (unknown) (no date) (unknown) (unknown) TAKE 1 TABLET BY MOUTH EVERY EVENING (units unknown) (unknown) (unknown) (no date) (unknown) (unknown) TAKE 1 TABLET BY MOUTH EVERY MORNING (units unknown) (unknown) (unknown) (no date) (unknown) (unknown) Take 1 tablet by mouth twice a day (units unknown) (unknown) (unknown) (no date) (unknown) (unknown) Temperature 97.4 F L 97.3 F L (units unknown) (unknown) (unknown) (no date) (unknown) (unknown) Temperature (units unknown) (unknown) (unknown) (no date) (unknown) (unknown) Time Patient Seen: 22:42 (units unknown) (unknown) (unknown) (no date) (unknown) (unknown) Time Spent with Patient (units unknown) (unknown) (unknown) (no date) (unknown) (unknown) Time spent: Greater than 30 minutes (units unknown) (unknown) (unknown) (no date) (unknown) (unknown) VTE (units unknown) (unknown) (unknown) (no date) (unknown) (unknown) Visit Report/Discharge Packet (units unknown) (unknown) (unknown) (no date) (unknown) (unknown) Vital Signs (units unknown) (unknown) (unknown) (no date) (unknown) (unknown) WBC 4.9 (units unknown) (unknown) (unknown) (no date) (unknown) (unknown) When asked on admit regarding code status patient requested to be a full code, (units unknown) (unknown) (unknown) (no date) (unknown) (unknown) Will monitor. (units unknown) (unknown) (unknown) (no date) (unknown) (unknown) [Embedded Image Not Available] (units unknown) (unknown) (unknown) (no date) (unknown) (unknown) admit patient is unable to state where he is unable to recall how or when he (units unknown) (unknown) (unknown) (no date) (unknown) (unknown) alcohol intake: current (units unknown) (unknown) (unknown) (no date) (unknown) (unknown) alone. 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 PT and OT ordered, will (units unknown) (unknown) (unknown) (no date) (unknown) (unknown) and denied suicide ideation. patient is hemodynamically stable pleasant (units unknown) (unknown) (unknown) (no date) (unknown) (unknown) and this has not recurred. TTE was unremarkable. (units unknown) (unknown) (unknown) (no date) (unknown) (unknown) at this time but he notes he does not feel safe at home.? Would likely benefit (units unknown) (unknown) (unknown) (no date) (unknown) (unknown) atorvastatin 40 mg tablet (units unknown) (unknown) (unknown) (no date) (unknown) (unknown) attempted librium previously but BP dipped, but may have been due to medications (units unknown) (unknown) (unknown) (no date) (unknown) (unknown) attempts to transfer patient for detox, but was refused due to hyperglycemia, (units unknown) (unknown) (unknown) (no date) (unknown) (unknown) been called to the patient's home several times over the last few days, he was (units unknown) (unknown) (unknown) (no date) (unknown) (unknown) bruising left abdomen, upper abd, chest, scabbed abrasion to left anterior lower (units unknown) (unknown) (unknown) (no date) (unknown) (unknown) candidate for anticoagulation due to his alcohol dependence and frequent falls (units unknown) (unknown) (unknown) (no date) (unknown) (unknown) chlordiazepoxide HCl 25 mg Capsule (units unknown) (unknown) (unknown) (no date) (unknown) (unknown) continue CIWA protocol with prn benzos. (units unknown) (unknown) (unknown) (no date) (unknown) (unknown) continue prn repletion (units unknown) (unknown) (unknown) (no date) (unknown) (unknown) converses easily but is confused. WBC 4.3, H+H 12.3/36.9, initial glucose 344, (units unknown) (unknown) (unknown) (no date) (unknown) (unknown) couple of weeks for refill. (units unknown) (unknown) (unknown) (no date) (unknown) (unknown) covered in a variety of multiple injuries in varying degrees healing, a scabbed (units unknown) (unknown) (unknown) (no date) (unknown) (unknown) dependence.? A bit unclear on when he was diagnosed and there is not any (units unknown) (unknown) (unknown) (no date) (unknown) (unknown) dependent diabetes secondary to pancreatic insufficiency related to his alcohol (units unknown) (unknown) (unknown) (no date) (unknown) (unknown) dextroamphetamine-am p hetamine 20 mg tablet (units unknown) (unknown) (unknown) (no date) (unknown) (unknown) did not answer.? Patient was seen and evaluated by [facility] in the ED made multiple (units unknown) (unknown) (unknown) (no date) (unknown) (unknown) elevated QTC on EKG, and encephalopathy. Unable to obtain accurate HPI, ROS due (units unknown) (unknown) (unknown) (no date) (unknown) (unknown) extremities well.? I s conversant but confused.? Patient states he drinks at (units unknown) (unknown) (unknown) (no date) (unknown) (unknown) extremity, significant deep bruising to lower coccyx area. Patient denies (units unknown) (unknown) (unknown) (no date) (unknown) (unknown) fall, head injury, atrial fibrillation, encephalopathy, ETOH abuse/intoxication, (units unknown) (unknown) (unknown) (no date) (unknown) (unknown) fingersticks, slidin g scale, and Lantus. (units unknown) (unknown) (unknown) (no date) (unknown) (unknown) for RVR. Now increased back to 25 TID. With shakiness thought of increasing but (units unknown) (unknown) (unknown) (no date) (unknown) (unknown) found down this evening on the bathroom floor with broken glass perhaps broken (units unknown) (unknown) (unknown) (no date) (unknown) (unknown) from a program that does dual diagnosis.? [facility] [facility] [employer] met with the patient today and (units unknown) (unknown) (unknown) (no date) (unknown) (unknown) furosemide 20 mg tablet (units unknown) (unknown) (unknown) (no date) (unknown) (unknown) head CT negative, CT of abdomen/pelvis multiple remote left rib fractures, left (units unknown) (unknown) (unknown) (no date) (unknown) (unknown) household members: none (units unknown) (unknown) (unknown) (no date) (unknown) (unknown) hyperglycemia. (units unknown) (unknown) (unknown) (no date) (unknown) (unknown) information with regard to his diabetes in the medical record.? We will continue (units unknown) (unknown) (unknown) (no date) (unknown) (unknown) inpatient transfer but this is hightly unlikely despite patient and care (units unknown) (unknown) (unknown) (no date) (unknown) (unknown) insulin glargine [Lantus Solostar U-100 Insulin] 100 unit/mL (3 mL) insulin (units unknown) (unknown) (unknown) (no date) (unknown) (unknown) insulin lispro [Humalog KwikPen Insulin] 100 unit/mL insulin pen (units unknown) (unknown) (unknown) (no date) (unknown) (unknown) kill himself when asked why he did not answer'? When asked if he has a plan he (units unknown) (unknown) (unknown) (no date) (unknown) (unknown) least a 5th of Vodka daily, denies tobacco or illicit.? Patient is unable to (units unknown) (unknown) (unknown) (no date) (unknown) (unknown) losartan 100 mg tablet (units unknown) (unknown) (unknown) (no date) (unknown) (unknown) management searching multiple facilities. Complicated due to patient's chronic (units unknown) (unknown) (unknown) (no date) (unknown) (unknown) medical conditions including stimulator and hydromorphone pump. (units unknown) (unknown) (unknown) (no date) (unknown) (unknown) mirror and blood at the scene. Patient is confused, but redirectable. During (units unknown) (unknown) (unknown) (no date) (unknown) (unknown) negative, tox screen is positive for opiates and benzos, initial ETOH 308, (units unknown) (unknown) (unknown) (no date) (unknown) (unknown) obtain these injurie s in the events that led him to the hospital today. He is (units unknown) (unknown) (unknown) (no date) (unknown) (unknown) pain, no shortness o f breath, no GI or urinary symptoms.? He is moving all his (units unknown) (unknown) (unknown) (no date) (unknown) (unknown) pen (units unknown) (unknown) (unknown) (no date) (unknown) (unknown) propranolol 20 mg tablet (units unknown) (unknown) (unknown) (no date) (unknown) (unknown) pump.? He reports th e pump was filled every 2 months and he is not due for a (units unknown) (unknown) (unknown) (no date) (unknown) (unknown) recall what his medications are he believes he is on insulins but he has no idea (units unknown) (unknown) (unknown) (no date) (unknown) (unknown) repeat 254, AST 87, ALT 88, alk-phos 144, UA negative, lactate negative, lipase (units unknown) (unknown) (unknown) (no date) (unknown) (unknown) repeat 91. COVID negative. EKG sinus rhythm rate 72 QTC 499, without ST or T (units unknown) (unknown) (unknown) (no date) (unknown) (unknown) right forearm.? Thes e all have occurred when he has been intoxicated and home (units unknown) (unknown) (unknown) (no date) (unknown) (unknown) sacrum (units unknown) (unknown) (unknown) (no date) (unknown) (unknown) scapula fracture, an d L1/L2 transverse process fracture. Patient admitted for (units unknown) (unknown) (unknown) (no date) (unknown) (unknown) see today. (units unknown) (unknown) (unknown) (no date) (unknown) (unknown) still. (units unknown) (unknown) (unknown) (no date) (unknown) (unknown) stimulator in back lumbar + Dilaudid pain pump in abdomen.? EMS had apparently (units unknown) (unknown) (unknown) (no date) (unknown) (unknown) superficial lee noted to his right forearm (units unknown) (unknown) (unknown) (no date) (unknown) (unknown) superficial laceration over his right forehead, small burn right forearm, (units unknown) (unknown) (unknown) (no date) (unknown) (unknown) symptoms are still fairly mild and will keep same dose today. (units unknown) (unknown) (unknown) (no date) (unknown) (unknown) tamsulosin 0.4 mg capsule (units unknown) (unknown) (unknown) (no date) (unknown) (unknown) then 25mg once daily for 2 days then stop (units unknown) (unknown) (unknown) (no date) (unknown) (unknown) to encephalopathy. E D reported patient had an episode of atrial fibrillation (units unknown) (unknown) (unknown) (no date) (unknown) (unknown) to kill himself to the medics and when asked in ED he ' stated he did want to (units unknown) (unknown) (unknown) (no date) (unknown) (unknown) tremulousness. (units unknown) (unknown) (unknown) (no date) (unknown) (unknown) wave changes. Chest x-ray negative, C-spine negative, pelvic x-ray negative, (units unknown) (unknown) (unknown) (no date) (unknown) (unknown) well as his gluteal area/sacrum.? He also has some superficial lee to his (units unknown) (unknown) (unknown) (no date) (unknown) (unknown) when or if he is taken his medication. He did make statements that he wanted (units unknown) (unknown) (unknown) (no date) (unknown) (unknown) which he was given a dose of metoprolol.? CHADS2 Vasc score is 2, consistent (units unknown) (unknown) (unknown) (no date) (unknown) (unknown) which metoprolol was given and quickly resolved. (units unknown) (unknown) (unknown) (no date) (unknown) (unknown) will work on [employer] resources.? He would benefit most from inpatient to (units unknown) (unknown) (unknown) (no date) (unknown) (unknown) with a 2.2% stroke risk annually.? Unfortunately, he would be a very poor (units unknown) (unknown) (unknown) (no date) (unknown) (unknown) yesterday, with librium noted above will continue to hold today. (units unknown) (unknown) Result panel 269 (unknown) (no date) (unknown) (unknown) (no value) (units unknown) (unknown) (unknown) (no date) (unknown) (unknown) (past 8 hours): (units unknown) (unknown) (unknown) (no date) (unknown) (unknown) Discharges patien t from system. (units unknown) (unknown) (unknown) (no date) (unknown) (unknown) - okay to stop tele today. (units unknown) (unknown) (unknown) (no date) (unknown) (unknown) 0.4 mg PO DAILY (units unknown) (unknown) (unknown) (no date) (unknown) (unknown) [id number] (units unknown) (unknown) (unknown) (no date) (unknown) (unknown) 03:30 01/19/23 (units unknown) (unknown) (unknown) (no date) (unknown) (unknown) 03:33 01/19/23 (units unknown) (unknown) (unknown) (no date) (unknown) (unknown) 01/14/23 22:12 (units unknown) (unknown) (unknown) (no date) (unknown) (unknown) 01/14/23 22:26 (units unknown) (unknown) (unknown) (no date) (unknown) (unknown) 01/14/23 22:37 (units unknown) (unknown) (unknown) (no date) (unknown) (unknown) 01/14/23 22:38 (units unknown) (unknown) (unknown) (no date) (unknown) (unknown) 01/15/23 18:02 (units unknown) (unknown) (unknown) (no date) (unknown) (unknown) 01/16/23 12:41 (units unknown) (unknown) (unknown) (no date) (unknown) (unknown) 01/16/23 14:55 (units unknown) (unknown) (unknown) (no date) (unknown) (unknown) 01/19/23 01/19/23 (units unknown) (unknown) (unknown) (no date) (unknown) (unknown) 01/19/23 06:23 (units unknown) (unknown) (unknown) (no date) (unknown) (unknown) 01/19/23 (units unknown) (unknown) (unknown) (no date) (unknown) (unknown) 06:23 06:23 (units unknown) (unknown) (unknown) (no date) (unknown) (unknown) 07:00 (units unknown) (unknown) (unknown) (no date) (unknown) (unknown) 08:42 (units unknown) (unknown) (unknown) (no date) (unknown) (unknown) 1. Alcohol dependenc e with withdrawal (units unknown) (unknown) (unknown) (no date) (unknown) (unknown) 10. Hyponatremia (units unknown) (unknown) (unknown) (no date) (unknown) (unknown) 100 mg PO DAILY (units unknown) (unknown) (unknown) (no date) (unknown) (unknown) 11. Hypomagnesemia (units unknown) (unknown) (unknown) (no date) (unknown) (unknown) 12. Transaminitis (units unknown) (unknown) (unknown) (no date) (unknown) (unknown) 13. hypomagnesemia (units unknown) (unknown) (unknown) (no date) (unknown) (unknown) 2. Suicidal ideation (units unknown) (unknown) (unknown) (no date) (unknown) (unknown) 20 mg PO BID (units unknown) (unknown) (unknown) (no date) (unknown) (unknown) 20 mg PO DAILY (units unknown) (unknown) (unknown) (no date) (unknown) (unknown) 20 unit SUBCUT BEDTIME (units unknown) (unknown) (unknown) (no date) (unknown) (unknown) 25 mg orally three times daily for 2 days, then 25mg twice daily for 2 days, (units unknown) (unknown) (unknown) (no date) (unknown) (unknown) 3. Multiple falls secondary to gait instability (units unknown) (unknown) (unknown) (no date) (unknown) (unknown) 4. Paroxysmal atrial fibrillation (units unknown) (unknown) (unknown) (no date) (unknown) (unknown) 40 mg PO BEDTIME (units unknown) (unknown) (unknown) (no date) (unknown) (unknown) 5. Diabetes mellitus , type unclear (units unknown) (unknown) (unknown) (no date) (unknown) (unknown) 6. Hypertension (units unknown) (unknown) (unknown) (no date) (unknown) (unknown) 7. Chronic pain syndrome (units unknown) (unknown) (unknown) (no date) (unknown) (unknown) 8. BPH (units unknown) (unknown) (unknown) (no date) (unknown) (unknown) 9. Anemia (units unknown) (unknown) (unknown) (no date) (unknown) (unknown) ?- repleted with IV, may be contributing to weakness. (units unknown) (unknown) (unknown) (no date) (unknown) (unknown) ABD: Soft, NT/ND, BT present in all 4 quadrants, no organomegaly or masses (units unknown) (unknown) (unknown) (no date) (unknown) (unknown) ADMINISTER 2 TO 10 UNITS UNDER THE SKIN BEFORE MEALS AND AT BEDTIME (units unknown) (unknown) (unknown) (no date) (unknown) (unknown) ADMINISTER 20 UNITS UNDER THE SKIN EVERY EVENING (units unknown) (unknown) (unknown) (no date) (unknown) (unknown) Age/Sex: 53 / M (units unknown) (unknown) (unknown) (no date) (unknown) (unknown) Alcohol intoxication (units unknown) (unknown) (unknown) (no date) (unknown) (unknown) BPH (benign prostati c hyperplasia) (units unknown) (unknown) (unknown) (no date) (unknown) (unknown) BUN 12 (units unknown) (unknown) (unknown) (no date) (unknown) (unknown) BUN/Creatinine Ratio 20.0 (units unknown) (unknown) (unknown) (no date) (unknown) (unknown) Baso # (Auto) 0 (units unknown) (unknown) (unknown) (no date) (unknown) (unknown) Baso % (Auto) 1.0 (units unknown) (unknown) (unknown) (no date) (unknown) (unknown) Behavioral Health Assess (units unknown) (unknown) (unknown) (no date) (unknown) (unknown) Blood Pressure 127/7 4 127/74 127/85 (units unknown) (unknown) (unknown) (no date) (unknown) (unknown) Blood Pressure 127/85 (units unknown) (unknown) (unknown) (no date) (unknown) (unknown) CHEST: Respiratory excursions symmetric, CTAB (units unknown) (unknown) (unknown) (no date) (unknown) (unknown) CV: RRR, no M/R/G (units unknown) (unknown) (unknown) (no date) (unknown) (unknown) Calcium 8.8 (units unknown) (unknown) (unknown) (no date) (unknown) (unknown) Carbon Dioxide 29 (units unknown) (unknown) (unknown) (no date) (unknown) (unknown) Chief complaint: Trauma (units unknown) (unknown) (unknown) (no date) (unknown) (unknown) Chloride 100 (units unknown) (unknown) (unknown) (no date) (unknown) (unknown) Chronic low back pain (units unknown) (unknown) (unknown) (no date) (unknown) (unknown) Comment: ETOH Abuse, SI (units unknown) (unknown) (unknown) (no date) (unknown) (unknown) Comment: Wound care (units unknown) (unknown) (unknown) (no date) (unknown) (unknown) Comment: (units unknown) (unknown) (unknown) (no date) (unknown) (unknown) Congestive heart failure (units unknown) (unknown) (unknown) (no date) (unknown) (unknown) Consult to Dietitian , Adult Routine (units unknown) (unknown) (unknown) (no date) (unknown) (unknown) Consult to Home Health Routine (units unknown) (unknown) (unknown) (no date) (unknown) (unknown) Consult to [facility] [place] - 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 Routine (units unknown) (unknown) (unknown) (no date) (unknown) (unknown) Consult to Occupational Therapy Evaluate + Treat (units unknown) (unknown) (unknown) (no date) (unknown) (unknown) Consult to Physical Therapy Evaluate + Treat (units unknown) (unknown) (unknown) (no date) (unknown) (unknown) Consults: (units unknown) (unknown) (unknown) (no date) (unknown) (unknown) Continue Flomax (units unknown) (unknown) (unknown) (no date) (unknown) (unknown) Continued (units unknown) (unknown) (unknown) (no date) (unknown) (unknown) Creatinine 0.60 L (units unknown) (unknown) (unknown) (no date) (unknown) (unknown) : 1970 Acct:[id number] (units unknown) (unknown) (unknown) (no date) (unknown) (unknown) Date Patient Seen: 01/14/23 (units unknown) (unknown) (unknown) (no date) (unknown) (unknown) Date of Service: 01/14/23 (units unknown) (unknown) (unknown) (no date) (unknown) (unknown) Date of admission: (units unknown) (unknown) (unknown) (no date) (unknown) (unknown) Deep Vein Thrombosis/Pulmonary Embolism Present on Admission: No (units unknown) (unknown) (unknown) (no date) (unknown) (unknown) Discharge Date/Time: 01/19/23 11:08 (units unknown) (unknown) (unknown) (no date) (unknown) (unknown) Discharge Date: 01/19/23 (units unknown) (unknown) (unknown) (no date) (unknown) (unknown) Discharge Diagnosis: (units unknown) (unknown) (unknown) (no date) (unknown) (unknown) Discharge Plan (units unknown) (unknown) (unknown) (no date) (unknown) (unknown) Discharge Providers (units unknown) (unknown) (unknown) (no date) (unknown) (unknown) Discharge Summary (units unknown) (unknown) (unknown) (no date) (unknown) (unknown) Discharge orders + Medications (units unknown) (unknown) (unknown) (no date) (unknown) (unknown) Discharge provider: (units unknown) (unknown) (unknown) (no date) (unknown) (unknown) Does have prior history of DT, symptoms today are consistent with withdrawal (units unknown) (unknown) (unknown) (no date) (unknown) (unknown) EXTR: warm, well perfused, no C/C/E, scattered bruising noted to his arms, (units unknown) (unknown) (unknown) (no date) (unknown) (unknown) Eos # (Auto) 300 (units unknown) (unknown) (unknown) (no date) (unknown) (unknown) Eos % (Auto) 5.2 H (units unknown) (unknown) (unknown) (no date) (unknown) (unknown) Essential hypertension (units unknown) (unknown) (unknown) (no date) (unknown) (unknown) Estimated GFR > 60 (units unknown) (unknown) (unknown) (no date) (unknown) (unknown) Exam Narrative: (units unknown) (unknown) (unknown) (no date) (unknown) (unknown) Exam (units unknown) (unknown) (unknown) (no date) (unknown) (unknown) Family History (Updated 01/15/23 @ 02:24 by SOMMER Chairez) (units unknown) (unknown) (unknown) (no date) (unknown) (unknown) Father Diabetes mellitus (units unknown) (unknown) (unknown) (no date) (unknown) (unknown) GEN: Alert and oriented x 3, no acute distress (units unknown) (unknown) (unknown) (no date) (unknown) (unknown) Glucose 139 H (units unknown) (unknown) (unknown) (no date) (unknown) (unknown) HEENT:NC, Face symmetric (units unknown) (unknown) (unknown) (no date) (unknown) (unknown) HLD, BPH, insulin-dependent diabetes and chronic low back pain tx with InterStim (units unknown) (unknown) (unknown) (no date) (unknown) (unknown) Hct 36.0 L (units unknown) (unknown) (unknown) (no date) (unknown) (unknown) Hgb 12.1 L (units unknown) (unknown) (unknown) (no date) (unknown) (unknown) History of Present Illness (units unknown) (unknown) (unknown) (no date) (unknown) (unknown) History of shoulder surgery (units unknown) (unknown) (unknown) (no date) (unknown) (unknown) Hospital Course (units unknown) (unknown) (unknown) (no date) (unknown) (unknown) Hyperlipidemia due t o type 1 diabetes mellitus (units unknown) (unknown) (unknown) (no date) (unknown) (unknown) [address] [address] (units unknown) (unknown) (unknown) (no date) (unknown) (unknown) Laboratory Results - last 24 hr (units unknown) (unknown) (unknown) (no date) (unknown) (unknown) Labs (units unknown) (unknown) (unknown) (no date) (unknown) (unknown) Labs: (units unknown) (unknown) (unknown) (no date) (unknown) (unknown) 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 LFTs are presently improving.? (units unknown) (unknown) (unknown) (no date) (unknown) (unknown) Lymph # (Auto) 1500 (units unknown) (unknown) (unknown) (no date) (unknown) (unknown) Lymph % (Auto) 30.8 (units unknown) (unknown) (unknown) (no date) (unknown) (unknown) MCH 32.5 (units unknown) (unknown) (unknown) (no date) (unknown) (unknown) MCHC 33.6 (units unknown) (unknown) (unknown) (no date) (unknown) (unknown) MCV 96.6 (units unknown) (unknown) (unknown) (no date) (unknown) (unknown) [employer] [facility] Consult needed for:: Substance Abuse Assess (units unknown) (unknown) (unknown) (no date) (unknown) (unknown) Magnesium 1.4 L (units unknown) (unknown) (unknown) (no date) (unknown) (unknown) Luca Dillard DO (units unknown) (unknown) (unknown) (no date) (unknown) (unknown) Medical History (units unknown) (unknown) (unknown) (no date) (unknown) (unknown) Sj Romo is a 53-year-old male with known history of alcohol abuse, HTN, (units unknown) (unknown) (unknown) (no date) (unknown) (unknown) Mild, Will monitor. (units unknown) (unknown) (unknown) (no date) (unknown) (unknown) [place] # (Auto) 400 (units unknown) (unknown) (unknown) (no date) (unknown) (unknown) [place] % (Auto) 7.7 (units unknown) (unknown) (unknown) (no date) (unknown) (unknown) Mother Diabetes mellitus (units unknown) (unknown) (unknown) (no date) (unknown) (unknown) Multiple falls (units unknown) (unknown) (unknown) (no date) (unknown) (unknown) NEURO: Alert and oriented x 3, nonfocal but + tongue fasciculations and (units unknown) (unknown) (unknown) (no date) (unknown) (unknown) Narrative (units unknown) (unknown) (unknown) (no date) (unknown) (unknown) Narrative: (units unknown) (unknown) (unknown) (no date) (unknown) (unknown) Neut # (Auto) 2700 (units unknown) (unknown) (unknown) (no date) (unknown) (unknown) Neut % (Auto) 55.3 (units unknown) (unknown) (unknown) (no date) (unknown) (unknown) New (units unknown) (unknown) (unknown) (no date) (unknown) (unknown) Normocytic.? Likely secondary to alcohol-induced marrow suppression. (units unknown) (unknown) (unknown) (no date) (unknown) (unknown) Objective (units unknown) (unknown) (unknown) (no date) (unknown) (unknown) Oxygen Delivery Method Room Air (units unknown) (unknown) (unknown) (no date) (unknown) (unknown) Oxygen Flow Rate 0 0 (units unknown) (unknown) (unknown) (no date) (unknown) (unknown) Oxygen Flow Rate 0 (units unknown) (unknown) (unknown) (no date) (unknown) (unknown) Oxygen Flow Rate (units unknown) (unknown) (unknown) (no date) (unknown) (unknown) PFSH (units unknown) (unknown) (unknown) (no date) (unknown) (unknown) Patient Comments: (units unknown) (unknown) (unknown) (no date) (unknown) (unknown) Patient Disposition: Home (units unknown) (unknown) (unknown) (no date) (unknown) (unknown) Patient continues on Lantus and sliding scale. Certainly he could have insulin (units unknown) (unknown) (unknown) (no date) (unknown) (unknown) Patient has a healin g laceration to his right forehead, bruises to his arms, as (units unknown) (unknown) (unknown) (no date) (unknown) (unknown) Patient has a spinal stimulator in place as well as an intrathecal hydromorphone (units unknown) (unknown) (unknown) (no date) (unknown) (unknown) Patient has had multiple prior attempts from what his brother told me.? No plan (units unknown) (unknown) (unknown) (no date) (unknown) (unknown) Patient is on lisinopril and propranolol.? He did develop some hypotension (units unknown) (unknown) (unknown) (no date) (unknown) (unknown) Patient was noted to have an episode of AFib in the emergency department for (units unknown) (unknown) (unknown) (no date) (unknown) (unknown) Patient: Sj Romo MR#: [id number] (units unknown) (unknown) (unknown) (no date) (unknown) (unknown) Physician Instructions: Evaluate and Treat (units unknown) (unknown) (unknown) (no date) (unknown) (unknown) Physician Instructions: Evaluate and treat (units unknown) (unknown) (unknown) (no date) (unknown) (unknown) Plt Count 321 (units unknown) (unknown) (unknown) (no date) (unknown) (unknown) Potassium 3.9 (units unknown) (unknown) (unknown) (no date) (unknown) (unknown) Prescriptions: (units unknown) (unknown) (unknown) (no date) (unknown) (unknown) Provider (units unknown) (unknown) (unknown) (no date) (unknown) (unknown) Provider: Luca Dillard D.O. (units unknown) (unknown) (unknown) (no date) (unknown) (unknown) Pulse Oximetry 96 95 (units unknown) (unknown) (unknown) (no date) (unknown) (unknown) Pulse Oximetry (units unknown) (unknown) (unknown) (no date) (unknown) (unknown) Pulse Rate 60 60 68 (units unknown) (unknown) (unknown) (no date) (unknown) (unknown) Pulse Rate (units unknown) (unknown) (unknown) (no date) (unknown) (unknown) Quality (units unknown) (unknown) (unknown) (no date) (unknown) (unknown) RBC 3.73 L (units unknown) (unknown) (unknown) (no date) (unknown) (unknown) RDW 13.4 (units unknown) (unknown) (unknown) (no date) (unknown) (unknown) Reason For Exam: Arrange Home Health with [facility] program (units unknown) (unknown) (unknown) (no date) (unknown) (unknown) Reason For Exam: DM, ETOH abuse (units unknown) (unknown) (unknown) (no date) (unknown) (unknown) Respiratory Rate 17 17 18 (units unknown) (unknown) (unknown) (no date) (unknown) (unknown) Respiratory Rate (units unknown) (unknown) (unknown) (no date) (unknown) (unknown) Rx Instructions: (units unknown) (unknown) (unknown) (no date) (unknown) (unknown) SKIN: warm and dry, no rash, large dark bruise noted round his gluteal folds and (units unknown) (unknown) (unknown) (no date) (unknown) (unknown) See Rx Instructions .ROUTE .COMPLEX Qty: 12 0RF (units unknown) (unknown) (unknown) (no date) (unknown) (unknown) See Rx Instructions .ROUTE .COMPLEX (units unknown) (unknown) (unknown) (no date) (unknown) (unknown) Signed By: (units unknown) (unknown) (unknown) (no date) (unknown) (unknown) Smoking Status: Milagro r smoker (units unknown) (unknown) (unknown) (no date) (unknown) (unknown) Social History (Updated 01/15/23 @ 02:23 by SOMMER Chairez) (units unknown) (unknown) (unknown) (no date) (unknown) (unknown) Sodium 137 (units unknown) (unknown) (unknown) (no date) (unknown) (unknown) Stand Alone Forms: Patient Portal/API, Stroke Signs + Symptoms (units unknown) (unknown) (unknown) (no date) (unknown) (unknown) Summary (units unknown) (unknown) (unknown) (no date) (unknown) (unknown) Surgical History (units unknown) (unknown) (unknown) (no date) (unknown) (unknown) TAKE 1 CAPSULE BY MOUTH DAILY (units unknown) (unknown) (unknown) (no date) (unknown) (unknown) TAKE 1 TABLET BY MOUTH EVERY EVENING (units unknown) (unknown) (unknown) (no date) (unknown) (unknown) TAKE 1 TABLET BY MOUTH EVERY MORNING (units unknown) (unknown) (unknown) (no date) (unknown) (unknown) Take 1 tablet by mouth twice a day (units unknown) (unknown) (unknown) (no date) (unknown) (unknown) Temperature 97.4 F L 97.3 F L (units unknown) (unknown) (unknown) (no date) (unknown) (unknown) Temperature (units unknown) (unknown) (unknown) (no date) (unknown) (unknown) Time Patient Seen: 22:42 (units unknown) (unknown) (unknown) (no date) (unknown) (unknown) Time Spent with Patient (units unknown) (unknown) (unknown) (no date) (unknown) (unknown) Time spent: Greater than 30 minutes (units unknown) (unknown) (unknown) (no date) (unknown) (unknown) VTE (units unknown) (unknown) (unknown) (no date) (unknown) (unknown) Visit Report/Discharge Packet (units unknown) (unknown) (unknown) (no date) (unknown) (unknown) Vital Signs (units unknown) (unknown) (unknown) (no date) (unknown) (unknown) WBC 4.9 (units unknown) (unknown) (unknown) (no date) (unknown) (unknown) When asked on admit regarding code status patient requested to be a full code, (units unknown) (unknown) (unknown) (no date) (unknown) (unknown) Will monitor. (units unknown) (unknown) (unknown) (no date) (unknown) (unknown) [Embedded Image Not Available] (units unknown) (unknown) (unknown) (no date) (unknown) (unknown) admit patient is unable to state where he is unable to recall how or when he (units unknown) (unknown) (unknown) (no date) (unknown) (unknown) alcohol intake: current (units unknown) (unknown) (unknown) (no date) (unknown) (unknown) alone. 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 PT and OT ordered, will (units unknown) (unknown) (unknown) (no date) (unknown) (unknown) and denied suicide ideation. patient is hemodynamically stable pleasant (units unknown) (unknown) (unknown) (no date) (unknown) (unknown) and this has not recurred. TTE was unremarkable. (units unknown) (unknown) (unknown) (no date) (unknown) (unknown) at this time but he notes he does not feel safe at home.? Would likely benefit (units unknown) (unknown) (unknown) (no date) (unknown) (unknown) atorvastatin 40 mg tablet (units unknown) (unknown) (unknown) (no date) (unknown) (unknown) attempted librium previously but BP dipped, but may have been due to medications (units unknown) (unknown) (unknown) (no date) (unknown) (unknown) attempts to transfer patient for detox, but was refused due to hyperglycemia, (units unknown) (unknown) (unknown) (no date) (unknown) (unknown) been called to the patient's home several times over the last few days, he was (units unknown) (unknown) (unknown) (no date) (unknown) (unknown) bruising left abdomen, upper abd, chest, scabbed abrasion to left anterior lower (units unknown) (unknown) (unknown) (no date) (unknown) (unknown) candidate for anticoagulation due to his alcohol dependence and frequent falls (units unknown) (unknown) (unknown) (no date) (unknown) (unknown) chlordiazepoxide HCl 25 mg Capsule (units unknown) (unknown) (unknown) (no date) (unknown) (unknown) continue CIWA protocol with prn benzos. (units unknown) (unknown) (unknown) (no date) (unknown) (unknown) continue prn repletion (units unknown) (unknown) (unknown) (no date) (unknown) (unknown) converses easily but is confused. WBC 4.3, H+H 12.3/36.9, initial glucose 344, (units unknown) (unknown) (unknown) (no date) (unknown) (unknown) couple of weeks for refill. (units unknown) (unknown) (unknown) (no date) (unknown) (unknown) covered in a variety of multiple injuries in varying degrees healing, a scabbed (units unknown) (unknown) (unknown) (no date) (unknown) (unknown) dependence.? A bit unclear on when he was diagnosed and there is not any (units unknown) (unknown) (unknown) (no date) (unknown) (unknown) dependent diabetes secondary to pancreatic insufficiency related to his alcohol (units unknown) (unknown) (unknown) (no date) (unknown) (unknown) dextroamphetamine-am p hetamine 20 mg tablet (units unknown) (unknown) (unknown) (no date) (unknown) (unknown) did not answer.? Patient was seen and evaluated by [facility] [facility] in the ED made multiple (units unknown) (unknown) (unknown) (no date) (unknown) (unknown) elevated QTC on EKG, and encephalopathy. Unable to obtain accurate HPI, ROS due (units unknown) (unknown) (unknown) (no date) (unknown) (unknown) extremities well.? I s conversant but confused.? Patient states he drinks at (units unknown) (unknown) (unknown) (no date) (unknown) (unknown) extremity, significant deep bruising to lower coccyx area. Patient denies (units unknown) (unknown) (unknown) (no date) (unknown) (unknown) fall, head injury, atrial fibrillation, encephalopathy, ETOH abuse/intoxication, (units unknown) (unknown) (unknown) (no date) (unknown) (unknown) fingersticks, slidin g scale, and Lantus. (units unknown) (unknown) (unknown) (no date) (unknown) (unknown) for RVR. Now increased back to 25 TID. With shakiness thought of increasing but (units unknown) (unknown) (unknown) (no date) (unknown) (unknown) found down this evening on the bathroom floor with broken glass perhaps broken (units unknown) (unknown) (unknown) (no date) (unknown) (unknown) from a program that does dual diagnosis.? [facility] [facility] [employer] met with the patient today and (units unknown) (unknown) (unknown) (no date) (unknown) (unknown) furosemide 20 mg tablet (units unknown) (unknown) (unknown) (no date) (unknown) (unknown) head CT negative, CT of abdomen/pelvis multiple remote left rib fractures, left (units unknown) (unknown) (unknown) (no date) (unknown) (unknown) household members: none (units unknown) (unknown) (unknown) (no date) (unknown) (unknown) hyperglycemia. (units unknown) (unknown) (unknown) (no date) (unknown) (unknown) information with regard to his diabetes in the medical record.? We will continue (units unknown) (unknown) (unknown) (no date) (unknown) (unknown) inpatient transfer but this is hightly unlikely despite patient and care (units unknown) (unknown) (unknown) (no date) (unknown) (unknown) insulin glargine [Lantus Solostar U-100 Insulin] 100 unit/mL (3 mL) insulin (units unknown) (unknown) (unknown) (no date) (unknown) (unknown) insulin lispro [Humalog KwikPen Insulin] 100 unit/mL insulin pen (units unknown) (unknown) (unknown) (no date) (unknown) (unknown) kill himself when asked why he did not answer'? When asked if he has a plan he (units unknown) (unknown) (unknown) (no date) (unknown) (unknown) least a 5th of Vodka daily, denies tobacco or illicit.? Patient is unable to (units unknown) (unknown) (unknown) (no date) (unknown) (unknown) losartan 100 mg tablet (units unknown) (unknown) (unknown) (no date) (unknown) (unknown) management searching multiple facilities. Complicated due to patient's chronic (units unknown) (unknown) (unknown) (no date) (unknown) (unknown) medical conditions including stimulator and hydromorphone pump. (units unknown) (unknown) (unknown) (no date) (unknown) (unknown) mirror and blood at the scene. Patient is confused, but redirectable. During (units unknown) (unknown) (unknown) (no date) (unknown) (unknown) negative, tox screen is positive for opiates and benzos, initial ETOH 308, (units unknown) (unknown) (unknown) (no date) (unknown) (unknown) obtain these injurie s in the events that led him to the hospital today. He is (units unknown) (unknown) (unknown) (no date) (unknown) (unknown) pain, no shortness o f breath, no GI or urinary symptoms.? He is moving all his (units unknown) (unknown) (unknown) (no date) (unknown) (unknown) pen (units unknown) (unknown) (unknown) (no date) (unknown) (unknown) propranolol 20 mg tablet (units unknown) (unknown) (unknown) (no date) (unknown) (unknown) pump.? He reports th e pump was filled every 2 months and he is not due for a (units unknown) (unknown) (unknown) (no date) (unknown) (unknown) recall what his medications are he believes he is on insulins but he has no idea (units unknown) (unknown) (unknown) (no date) (unknown) (unknown) repeat 254, AST 87, ALT 88, alk-phos 144, UA negative, lactate negative, lipase (units unknown) (unknown) (unknown) (no date) (unknown) (unknown) repeat 91. COVID negative. EKG sinus rhythm rate 72 QTC 499, without ST or T (units unknown) (unknown) (unknown) (no date) (unknown) (unknown) right forearm.? Thes e all have occurred when he has been intoxicated and home (units unknown) (unknown) (unknown) (no date) (unknown) (unknown) sacrum (units unknown) (unknown) (unknown) (no date) (unknown) (unknown) scapula fracture, an d L1/L2 transverse process fracture. Patient admitted for (units unknown) (unknown) (unknown) (no date) (unknown) (unknown) see today. (units unknown) (unknown) (unknown) (no date) (unknown) (unknown) still. (units unknown) (unknown) (unknown) (no date) (unknown) (unknown) stimulator in back lumbar + Dilaudid pain pump in abdomen.? EMS had apparently (units unknown) (unknown) (unknown) (no date) (unknown) (unknown) superficial lee noted to his right forearm (units unknown) (unknown) (unknown) (no date) (unknown) (unknown) superficial laceration over his right forehead, small burn right forearm, (units unknown) (unknown) (unknown) (no date) (unknown) (unknown) symptoms are still fairly mild and will keep same dose today. (units unknown) (unknown) (unknown) (no date) (unknown) (unknown) tamsulosin 0.4 mg capsule (units unknown) (unknown) (unknown) (no date) (unknown) (unknown) then 25mg once daily for 2 days then stop (units unknown) (unknown) (unknown) (no date) (unknown) (unknown) to encephalopathy. E D reported patient had an episode of atrial fibrillation (units unknown) (unknown) (unknown) (no date) (unknown) (unknown) to kill himself to the medics and when asked in ED he ' stated he did want to (units unknown) (unknown) (unknown) (no date) (unknown) (unknown) tremulousness. (units unknown) (unknown) (unknown) (no date) (unknown) (unknown) wave changes. Chest x-ray negative, C-spine negative, pelvic x-ray negative, (units unknown) (unknown) (unknown) (no date) (unknown) (unknown) well as his gluteal area/sacrum.? He also has some superficial lee to his (units unknown) (unknown) (unknown) (no date) (unknown) (unknown) when or if he is taken his medication. He did make statements that he wanted (units unknown) (unknown) (unknown) (no date) (unknown) (unknown) which he was given a dose of metoprolol.? CHADS2 Vasc score is 2, consistent (units unknown) (unknown) (unknown) (no date) (unknown) (unknown) which metoprolol was given and quickly resolved. (units unknown) (unknown) (unknown) (no date) (unknown) (unknown) will work on possibl e resources.? He would benefit most from inpatient to (units unknown) (unknown) (unknown) (no date) (unknown) (unknown) with a 2.2% stroke risk annually.? Unfortunately, he would be a very poor (units unknown) (unknown) (unknown) (no date) (unknown) (unknown) yesterday, with librium noted above will continue to hold today. (units unknown) (unknown) Result panel 270 (unknown) (no date) (unknown) (unknown) (no value) (units unknown) (unknown) (unknown) (no date) (unknown) (unknown) (past 8 hours): (units unknown) (unknown) (unknown) (no date) (unknown) (unknown) Discharges patien t from system. (units unknown) (unknown) (unknown) (no date) (unknown) (unknown) -discharged on librium 25mg TID with taper (units unknown) (unknown) (unknown) (no date) (unknown) (unknown) -no accepting facilities with pain pump, patient will explore inpatient options (units unknown) (unknown) (unknown) (no date) (unknown) (unknown) -resumed BP meds on discharge (units unknown) (unknown) (unknown) (no date) (unknown) (unknown) 0.4 mg PO DAILY (units unknown) (unknown) (unknown) (no date) (unknown) (unknown) [id number] (units unknown) (unknown) (unknown) (no date) (unknown) (unknown) 03:30 01/19/23 (units unknown) (unknown) (unknown) (no date) (unknown) (unknown) 03:33 01/19/23 (units unknown) (unknown) (unknown) (no date) (unknown) (unknown) 01/14/23 22:12 (units unknown) (unknown) (unknown) (no date) (unknown) (unknown) 01/14/23 22:26 (units unknown) (unknown) (unknown) (no date) (unknown) (unknown) 01/14/23 22:37 (units unknown) (unknown) (unknown) (no date) (unknown) (unknown) 01/14/23 22:38 (units unknown) (unknown) (unknown) (no date) (unknown) (unknown) 01/15/23 18:02 (units unknown) (unknown) (unknown) (no date) (unknown) (unknown) 01/16/23 12:41 (units unknown) (unknown) (unknown) (no date) (unknown) (unknown) 01/16/23 14:55 (units unknown) (unknown) (unknown) (no date) (unknown) (unknown) 04/13/23 04/13/23 (units unknown) (unknown) (unknown) (no date) (unknown) (unknown) 01/19/23 06:23 (units unknown) (unknown) (unknown) (no date) (unknown) (unknown) 01/19/23 (units unknown) (unknown) (unknown) (no date) (unknown) (unknown) 06:23 06:23 (units unknown) (unknown) (unknown) (no date) (unknown) (unknown) 07:00 (units unknown) (unknown) (unknown) (no date) (unknown) (unknown) 08:42 (units unknown) (unknown) (unknown) (no date) (unknown) (unknown) 1. Alcohol dependenc e with withdrawal (units unknown) (unknown) (unknown) (no date) (unknown) (unknown) 10. Hyponatremia (units unknown) (unknown) (unknown) (no date) (unknown) (unknown) 100 mg PO DAILY (units unknown) (unknown) (unknown) (no date) (unknown) (unknown) 11. Hypomagnesemia (units unknown) (unknown) (unknown) (no date) (unknown) (unknown) 12. Transaminitis (units unknown) (unknown) (unknown) (no date) (unknown) (unknown) 13. hypomagnesemia (units unknown) (unknown) (unknown) (no date) (unknown) (unknown) 2. Suicidal ideation (units unknown) (unknown) (unknown) (no date) (unknown) (unknown) 20 mg PO BID (units unknown) (unknown) (unknown) (no date) (unknown) (unknown) 20 mg PO DAILY (units unknown) (unknown) (unknown) (no date) (unknown) (unknown) 20 unit SUBCUT BEDTIME (units unknown) (unknown) (unknown) (no date) (unknown) (unknown) 25 mg orally three times daily for 2 days, then 25mg twice daily for 2 days, (units unknown) (unknown) (unknown) (no date) (unknown) (unknown) 3. Multiple falls secondary to gait instability (units unknown) (unknown) (unknown) (no date) (unknown) (unknown) 4. Paroxysmal atrial fibrillation (units unknown) (unknown) (unknown) (no date) (unknown) (unknown) 40 mg PO BEDTIME (units unknown) (unknown) (unknown) (no date) (unknown) (unknown) 5. Diabetes mellitus , type unclear (units unknown) (unknown) (unknown) (no date) (unknown) (unknown) 6. Hypertension (units unknown) (unknown) (unknown) (no date) (unknown) (unknown) 7. Chronic pain syndrome (units unknown) (unknown) (unknown) (no date) (unknown) (unknown) 8. BPH (units unknown) (unknown) (unknown) (no date) (unknown) (unknown) 9. Anemia (units unknown) (unknown) (unknown) (no date) (unknown) (unknown) ?- repleted with IV, may be contributing to weakness. (units unknown) (unknown) (unknown) (no date) (unknown) (unknown) ABD: Soft, NT/ND, BT present in all 4 quadrants, no organomegaly or masses (units unknown) (unknown) (unknown) (no date) (unknown) (unknown) ADMINISTER 2 TO 10 UNITS UNDER THE SKIN BEFORE MEALS AND AT BEDTIME (units unknown) (unknown) (unknown) (no date) (unknown) (unknown) ADMINISTER 20 UNITS UNDER THE SKIN EVERY EVENING (units unknown) (unknown) (unknown) (no date) (unknown) (unknown) Age/Sex: 53 / M (units unknown) (unknown) (unknown) (no date) (unknown) (unknown) Alcohol intoxication (units unknown) (unknown) (unknown) (no date) (unknown) (unknown) BPH (benign prostati c hyperplasia) (units unknown) (unknown) (unknown) (no date) (unknown) (unknown) BUN 12 (units unknown) (unknown) (unknown) (no date) (unknown) (unknown) BUN/Creatinine Ratio 20.0 (units unknown) (unknown) (unknown) (no date) (unknown) (unknown) Baso # (Auto) 0 (units unknown) (unknown) (unknown) (no date) (unknown) (unknown) Baso % (Auto) 1.0 (units unknown) (unknown) (unknown) (no date) (unknown) (unknown) Behavioral Health Assess (units unknown) (unknown) (unknown) (no date) (unknown) (unknown) Blood Pressure 127/7 4 127/74 127/85 (units unknown) (unknown) (unknown) (no date) (unknown) (unknown) Blood Pressure 127/85 (units unknown) (unknown) (unknown) (no date) (unknown) (unknown) CHEST: Respiratory excursions symmetric, CTAB (units unknown) (unknown) (unknown) (no date) (unknown) (unknown) CV: RRR, no M/R/G (units unknown) (unknown) (unknown) (no date) (unknown) (unknown) Calcium 8.8 (units unknown) (unknown) (unknown) (no date) (unknown) (unknown) Carbon Dioxide 29 (units unknown) (unknown) (unknown) (no date) (unknown) (unknown) Chief complaint: Trauma (units unknown) (unknown) (unknown) (no date) (unknown) (unknown) Chloride 100 (units unknown) (unknown) (unknown) (no date) (unknown) (unknown) Chronic low back pain (units unknown) (unknown) (unknown) (no date) (unknown) (unknown) Comment: ETOH Abuse, SI (units unknown) (unknown) (unknown) (no date) (unknown) (unknown) Comment: Wound care (units unknown) (unknown) (unknown) (no date) (unknown) (unknown) Comment: (units unknown) (unknown) (unknown) (no date) (unknown) (unknown) Congestive heart failure (units unknown) (unknown) (unknown) (no date) (unknown) (unknown) Consult to Dietitian , Adult Routine (units unknown) (unknown) (unknown) (no date) (unknown) (unknown) Consult to Home Health Routine (units unknown) (unknown) (unknown) (no date) (unknown) (unknown) Consult to [facility] [place] - 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 Routine (units unknown) (unknown) (unknown) (no date) (unknown) (unknown) Consult to Occupational Therapy Evaluate + Treat (units unknown) (unknown) (unknown) (no date) (unknown) (unknown) Consult to Physical Therapy Evaluate + Treat (units unknown) (unknown) (unknown) (no date) (unknown) (unknown) Consults: (units unknown) (unknown) (unknown) (no date) (unknown) (unknown) Continue Flomax (units unknown) (unknown) (unknown) (no date) (unknown) (unknown) Continued (units unknown) (unknown) (unknown) (no date) (unknown) (unknown) Creatinine 0.60 L (units unknown) (unknown) (unknown) (no date) (unknown) (unknown) : 1970 Acct:[id number] (units unknown) (unknown) (unknown) (no date) (unknown) (unknown) Date Patient Seen: 01/14/23 (units unknown) (unknown) (unknown) (no date) (unknown) (unknown) Date of Service: 01/14/23 (units unknown) (unknown) (unknown) (no date) (unknown) (unknown) Date of admission: (units unknown) (unknown) (unknown) (no date) (unknown) (unknown) Deep Vein Thrombosis/Pulmonary Embolism Present on Admission: No (units unknown) (unknown) (unknown) (no date) (unknown) (unknown) Discharge Date/Time: 01/19/23 11:08 (units unknown) (unknown) (unknown) (no date) (unknown) (unknown) Discharge Date: 01/19/23 (units unknown) (unknown) (unknown) (no date) (unknown) (unknown) Discharge Diagnosis: (units unknown) (unknown) (unknown) (no date) (unknown) (unknown) Discharge Plan (units unknown) (unknown) (unknown) (no date) (unknown) (unknown) Discharge Providers (units unknown) (unknown) (unknown) (no date) (unknown) (unknown) Discharge Summary (units unknown) (unknown) (unknown) (no date) (unknown) (unknown) Discharge orders + Medications (units unknown) (unknown) (unknown) (no date) (unknown) (unknown) Discharge provider: (units unknown) (unknown) (unknown) (no date) (unknown) (unknown) Does have prior history of DT, symptoms today are consistent with withdrawal (units unknown) (unknown) (unknown) (no date) (unknown) (unknown) EXTR: warm, well perfused, no C/C/E, scattered bruising noted to his arms, (units unknown) (unknown) (unknown) (no date) (unknown) (unknown) Eos # (Auto) 300 (units unknown) (unknown) (unknown) (no date) (unknown) (unknown) Eos % (Auto) 5.2 H (units unknown) (unknown) (unknown) (no date) (unknown) (unknown) Essential hypertension (units unknown) (unknown) (unknown) (no date) (unknown) (unknown) Estimated GFR > 60 (units unknown) (unknown) (unknown) (no date) (unknown) (unknown) Exam Narrative: (units unknown) (unknown) (unknown) (no date) (unknown) (unknown) Exam (units unknown) (unknown) (unknown) (no date) (unknown) (unknown) Family History (Updated 01/15/23 @ 02:24 [facility] (units unknown) (unknown) (unknown) (no date) (unknown) (unknown) Father Diabetes mellitus (units unknown) (unknown) (unknown) (no date) (unknown) (unknown) GEN: Alert and oriented x 3, no acute distress (units unknown) (unknown) (unknown) (no date) (unknown) (unknown) Glucose 139 H (units unknown) (unknown) (unknown) (no date) (unknown) (unknown) HEENT:NC, Face symmetric (units unknown) (unknown) (unknown) (no date) (unknown) (unknown) HLD, BPH, insulin-dependent diabetes and chronic low back pain tx with InterStim (units unknown) (unknown) (unknown) (no date) (unknown) (unknown) Hct 36.0 L (units unknown) (unknown) (unknown) (no date) (unknown) (unknown) Hgb 12.1 L (units unknown) (unknown) (unknown) (no date) (unknown) (unknown) History of Present Illness (units unknown) (unknown) (unknown) (no date) (unknown) (unknown) History of shoulder surgery (units unknown) (unknown) (unknown) (no date) (unknown) (unknown) Hospital Course (units unknown) (unknown) (unknown) (no date) (unknown) (unknown) Hyperlipidemia due t o type 1 diabetes mellitus (units unknown) (unknown) (unknown) (no date) (unknown) (unknown) [address] [address] (units unknown) (unknown) (unknown) (no date) (unknown) (unknown) Laboratory Results - last 24 hr (units unknown) (unknown) (unknown) (no date) (unknown) (unknown) Labs (units unknown) (unknown) (unknown) (no date) (unknown) (unknown) Labs: (units unknown) (unknown) (unknown) (no date) (unknown) (unknown) 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 LFTs are presently improving.? (units unknown) (unknown) (unknown) (no date) (unknown) (unknown) Lymph # (Auto) 1500 (units unknown) (unknown) (unknown) (no date) (unknown) (unknown) Lymph % (Auto) 30.8 (units unknown) (unknown) (unknown) (no date) (unknown) (unknown) MCH 32.5 (units unknown) (unknown) (unknown) (no date) (unknown) (unknown) MCHC 33.6 (units unknown) (unknown) (unknown) (no date) (unknown) (unknown) MCV 96.6 (units unknown) (unknown) (unknown) (no date) (unknown) (unknown) [facility] [facility] Consult needed for:: Substance Abuse Assess (units unknown) (unknown) (unknown) (no date) (unknown) (unknown) Magnesium 1.4 L (units unknown) (unknown) (unknown) (no date) (unknown) (unknown) Luca Dillard, DO (units unknown) (unknown) (unknown) (no date) (unknown) (unknown) Medical History (units unknown) (unknown) (unknown) (no date) (unknown) (unknown) Sj Romo is a 53-year-old male with known history of alcohol abuse, HTN, (units unknown) (unknown) (unknown) (no date) (unknown) (unknown) Mild, Will monitor. (units unknown) (unknown) (unknown) (no date) (unknown) (unknown) [place] # (Auto) 400 (units unknown) (unknown) (unknown) (no date) (unknown) (unknown) [place] % (Auto) 7.7 (units unknown) (unknown) (unknown) (no date) (unknown) (unknown) Mother Diabetes mellitus (units unknown) (unknown) (unknown) (no date) (unknown) (unknown) Multiple falls (units unknown) (unknown) (unknown) (no date) (unknown) (unknown) NEURO: Alert and oriented x 3, mild tremulousness. (units unknown) (unknown) (unknown) (no date) (unknown) (unknown) Narrative (units unknown) (unknown) (unknown) (no date) (unknown) (unknown) Narrative: (units unknown) (unknown) (unknown) (no date) (unknown) (unknown) Neut # (Auto) 2700 (units unknown) (unknown) (unknown) (no date) (unknown) (unknown) Neut % (Auto) 55.3 (units unknown) (unknown) (unknown) (no date) (unknown) (unknown) New (units unknown) (unknown) (unknown) (no date) (unknown) (unknown) Normocytic.? Likely secondary to alcohol-induced marrow suppression. (units unknown) (unknown) (unknown) (no date) (unknown) (unknown) Objective (units unknown) (unknown) (unknown) (no date) (unknown) (unknown) Oxygen Delivery Method Room Air (units unknown) (unknown) (unknown) (no date) (unknown) (unknown) Oxygen Flow Rate 0 0 (units unknown) (unknown) (unknown) (no date) (unknown) (unknown) Oxygen Flow Rate 0 (units unknown) (unknown) (unknown) (no date) (unknown) (unknown) Oxygen Flow Rate (units unknown) (unknown) (unknown) (no date) (unknown) (unknown) PFSH (units unknown) (unknown) (unknown) (no date) (unknown) (unknown) Patient Comments: (units unknown) (unknown) (unknown) (no date) (unknown) (unknown) Patient Disposition: Home (units unknown) (unknown) (unknown) (no date) (unknown) (unknown) Patient continues on Lantus and sliding scale. Certainly he could have insulin (units unknown) (unknown) (unknown) (no date) (unknown) (unknown) Patient has a healin g laceration to his right forehead, bruises to his arms, as (units unknown) (unknown) (unknown) (no date) (unknown) (unknown) Patient has a spinal stimulator in place as well as an intrathecal hydromorphone (units unknown) (unknown) (unknown) (no date) (unknown) (unknown) Patient has had multiple prior attempts from what his brother told me.? No plan (units unknown) (unknown) (unknown) (no date) (unknown) (unknown) Patient is on lisinopril and propranolol.? He did develop some hypotension (units unknown) (unknown) (unknown) (no date) (unknown) (unknown) Patient was noted to have an episode of AFib in the emergency department for (units unknown) (unknown) (unknown) (no date) (unknown) (unknown) Patient: Sj Romo MR#: [id number] (units unknown) (unknown) (unknown) (no date) (unknown) (unknown) Physician Instructions: Evaluate and Treat (units unknown) (unknown) (unknown) (no date) (unknown) (unknown) Physician Instructions: Evaluate and treat (units unknown) (unknown) (unknown) (no date) (unknown) (unknown) Plt Count 321 (units unknown) (unknown) (unknown) (no date) (unknown) (unknown) Potassium 3.9 (units unknown) (unknown) (unknown) (no date) (unknown) (unknown) Prescriptions: (units unknown) (unknown) (unknown) (no date) (unknown) (unknown) Provider (units unknown) (unknown) (unknown) (no date) (unknown) (unknown) Provider: Luca Dillard D.O. (units unknown) (unknown) (unknown) (no date) (unknown) (unknown) Pulse Oximetry 96 95 (units unknown) (unknown) (unknown) (no date) (unknown) (unknown) Pulse Oximetry (units unknown) (unknown) (unknown) (no date) (unknown) (unknown) Pulse Rate 60 60 68 (units unknown) (unknown) (unknown) (no date) (unknown) (unknown) Pulse Rate (units unknown) (unknown) (unknown) (no date) (unknown) (unknown) Quality (units unknown) (unknown) (unknown) (no date) (unknown) (unknown) RBC 3.73 L (units unknown) (unknown) (unknown) (no date) (unknown) (unknown) RDW 13.4 (units unknown) (unknown) (unknown) (no date) (unknown) (unknown) Reason For Exam: Arrange Home Health with [facility] program (units unknown) (unknown) (unknown) (no date) (unknown) (unknown) Reason For Exam: DM, ETOH abuse (units unknown) (unknown) (unknown) (no date) (unknown) (unknown) Respiratory Rate 17 17 18 (units unknown) (unknown) (unknown) (no date) (unknown) (unknown) Respiratory Rate (units unknown) (unknown) (unknown) (no date) (unknown) (unknown) Rx Instructions: (units unknown) (unknown) (unknown) (no date) (unknown) (unknown) SKIN: warm and dry, no rash, large dark bruise noted round his gluteal folds and (units unknown) (unknown) (unknown) (no date) (unknown) (unknown) See Rx Instructions .ROUTE .COMPLEX Qty: 12 0RF (units unknown) (unknown) (unknown) (no date) (unknown) (unknown) See Rx Instructions .ROUTE .COMPLEX (units unknown) (unknown) (unknown) (no date) (unknown) (unknown) Signed By: (units unknown) (unknown) (unknown) (no date) (unknown) (unknown) Smoking Status: Milagro huang smoker (units unknown) (unknown) (unknown) (no date) (unknown) (unknown) Social History (Updated 01/15/23 @ 02:23 [facility] (units unknown) (unknown) (unknown) (no date) (unknown) (unknown) Sodium 137 (units unknown) (unknown) (unknown) (no date) (unknown) (unknown) Stand Alone Forms: Patient Portal/API, Stroke Signs + Symptoms (units unknown) (unknown) (unknown) (no date) (unknown) (unknown) Summary (units unknown) (unknown) (unknown) (no date) (unknown) (unknown) Surgical History (units unknown) (unknown) (unknown) (no date) (unknown) (unknown) TAKE 1 CAPSULE BY MOUTH DAILY (units unknown) (unknown) (unknown) (no date) (unknown) (unknown) TAKE 1 TABLET BY MOUTH EVERY EVENING (units unknown) (unknown) (unknown) (no date) (unknown) (unknown) TAKE 1 TABLET BY MOUTH EVERY MORNING (units unknown) (unknown) (unknown) (no date) (unknown) (unknown) Take 1 tablet by mouth twice a day (units unknown) (unknown) (unknown) (no date) (unknown) (unknown) Temperature 97.4 F L 97.3 F L (units unknown) (unknown) (unknown) (no date) (unknown) (unknown) Temperature (units unknown) (unknown) (unknown) (no date) (unknown) (unknown) Time Patient Seen: 22:42 (units unknown) (unknown) (unknown) (no date) (unknown) (unknown) Time Spent with Patient (units unknown) (unknown) (unknown) (no date) (unknown) (unknown) Time spent: Greater than 30 minutes (units unknown) (unknown) (unknown) (no date) (unknown) (unknown) VTE (units unknown) (unknown) (unknown) (no date) (unknown) (unknown) Visit Report/Discharge Packet (units unknown) (unknown) (unknown) (no date) (unknown) (unknown) Vital Signs (units unknown) (unknown) (unknown) (no date) (unknown) (unknown) WBC 4.9 (units unknown) (unknown) (unknown) (no date) (unknown) (unknown) When asked on admit regarding code status patient requested to be a full code, (units unknown) (unknown) (unknown) (no date) (unknown) (unknown) Will monitor. (units unknown) (unknown) (unknown) (no date) (unknown) (unknown) [Embedded Image Not Available] (units unknown) (unknown) (unknown) (no date) (unknown) (unknown) admit patient is unable to state where he is unable to recall how or when he (units unknown) (unknown) (unknown) (no date) (unknown) (unknown) alcohol intake: current (units unknown) (unknown) (unknown) (no date) (unknown) (unknown) alone. 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 PT and OT evaulated. (units unknown) (unknown) (unknown) (no date) (unknown) (unknown) and denied suicide ideation. patient is hemodynamically stable pleasant (units unknown) (unknown) (unknown) (no date) (unknown) (unknown) and this has not recurred. TTE was unremarkable. (units unknown) (unknown) (unknown) (no date) (unknown) (unknown) at this time but he notes he does not feel safe at home.? Would likely benefit (units unknown) (unknown) (unknown) (no date) (unknown) (unknown) atorvastatin 40 mg tablet (units unknown) (unknown) (unknown) (no date) (unknown) (unknown) attempted librium previously but BP dipped, but may have been due to medications (units unknown) (unknown) (unknown) (no date) (unknown) (unknown) attempts to transfer patient for detox, but was refused due to hyperglycemia, (units unknown) (unknown) (unknown) (no date) (unknown) (unknown) been called to the patient's home several times over the last few days, he was (units unknown) (unknown) (unknown) (no date) (unknown) (unknown) bruising left abdomen, upper abd, chest, scabbed abrasion to left anterior lower (units unknown) (unknown) (unknown) (no date) (unknown) (unknown) candidate for anticoagulation due to his alcohol dependence and frequent falls (units unknown) (unknown) (unknown) (no date) (unknown) (unknown) chlordiazepoxide HCl 25 mg Capsule (units unknown) (unknown) (unknown) (no date) (unknown) (unknown) continue CIWA protocol with prn benzos. (units unknown) (unknown) (unknown) (no date) (unknown) (unknown) continue prn repletion (units unknown) (unknown) (unknown) (no date) (unknown) (unknown) converses easily but is confused. WBC 4.3, H+H 12.3/36.9, initial glucose 344, (units unknown) (unknown) (unknown) (no date) (unknown) (unknown) couple of weeks for refill. (units unknown) (unknown) (unknown) (no date) (unknown) (unknown) covered in a variety of multiple injuries in varying degrees healing, a scabbed (units unknown) (unknown) (unknown) (no date) (unknown) (unknown) dependence.? A bit unclear on when he was diagnosed and there is not any (units unknown) (unknown) (unknown) (no date) (unknown) (unknown) dependent diabetes secondary to pancreatic insufficiency related to his alcohol (units unknown) (unknown) (unknown) (no date) (unknown) (unknown) dextroamphetamine-am p hetamine 20 mg tablet (units unknown) (unknown) (unknown) (no date) (unknown) (unknown) did not answer.? Patient was seen and evaluated by [facility] in the ED made multiple (units unknown) (unknown) (unknown) (no date) (unknown) (unknown) elevated QTC on EKG, and encephalopathy. Unable to obtain accurate HPI, ROS due (units unknown) (unknown) (unknown) (no date) (unknown) (unknown) extremities well.? I s conversant but confused.? Patient states he drinks at (units unknown) (unknown) (unknown) (no date) (unknown) (unknown) extremity, significant deep bruising to lower coccyx area. Patient denies (units unknown) (unknown) (unknown) (no date) (unknown) (unknown) fall, head injury, atrial fibrillation, encephalopathy, ETOH abuse/intoxication, (units unknown) (unknown) (unknown) (no date) (unknown) (unknown) fingersticks, slidin g scale, and Lantus. (units unknown) (unknown) (unknown) (no date) (unknown) (unknown) for RVR. Now increased back to 25 TID. With shakiness thought of increasing but (units unknown) (unknown) (unknown) (no date) (unknown) (unknown) found down this evening on the bathroom floor with broken glass perhaps broken (units unknown) (unknown) (unknown) (no date) (unknown) (unknown) from a program that does dual diagnosis.? [employer] [facility] met with the patient today and (units unknown) (unknown) (unknown) (no date) (unknown) (unknown) furosemide 20 mg tablet (units unknown) (unknown) (unknown) (no date) (unknown) (unknown) head CT negative, CT of abdomen/pelvis multiple remote left rib fractures, left (units unknown) (unknown) (unknown) (no date) (unknown) (unknown) himself potentially in [place] (units unknown) (unknown) (unknown) (no date) (unknown) (unknown) household members: none (units unknown) (unknown) (unknown) (no date) (unknown) (unknown) hyperglycemia. (units unknown) (unknown) (unknown) (no date) (unknown) (unknown) information with regard to his diabetes in the medical record.? We will continue (units unknown) (unknown) (unknown) (no date) (unknown) (unknown) inpatient transfer but this is hightly unlikely despite patient and care (units unknown) (unknown) (unknown) (no date) (unknown) (unknown) insulin glargine [Lantus Solostar U-100 Insulin] 100 unit/mL (3 mL) insulin (units unknown) (unknown) (unknown) (no date) (unknown) (unknown) insulin lispro [Humalog KwikPen Insulin] 100 unit/mL insulin pen (units unknown) (unknown) (unknown) (no date) (unknown) (unknown) kill himself when asked why he did not answer'? When asked if he has a plan he (units unknown) (unknown) (unknown) (no date) (unknown) (unknown) least a 5th of Vodka daily, denies tobacco or illicit.? Patient is unable to (units unknown) (unknown) (unknown) (no date) (unknown) (unknown) losartan 100 mg tablet (units unknown) (unknown) (unknown) (no date) (unknown) (unknown) management searching multiple facilities. Complicated due to patient's chronic (units unknown) (unknown) (unknown) (no date) (unknown) (unknown) medical conditions including stimulator and hydromorphone pump. (units unknown) (unknown) (unknown) (no date) (unknown) (unknown) mirror and blood at the scene. Patient is confused, but redirectable. During (units unknown) (unknown) (unknown) (no date) (unknown) (unknown) negative, tox screen is positive for opiates and benzos, initial ETOH 308, (units unknown) (unknown) (unknown) (no date) (unknown) (unknown) obtain these injurie s in the events that led him to the hospital today. He is (units unknown) (unknown) (unknown) (no date) (unknown) (unknown) pain, no shortness o f breath, no GI or urinary symptoms.? He is moving all his (units unknown) (unknown) (unknown) (no date) (unknown) (unknown) pen (units unknown) (unknown) (unknown) (no date) (unknown) (unknown) propranolol 20 mg tablet (units unknown) (unknown) (unknown) (no date) (unknown) (unknown) pump.? He reports th e pump was filled every 2 months and he is not due for a (units unknown) (unknown) (unknown) (no date) (unknown) (unknown) recall what his medications are he believes he is on insulins but he has no idea (units unknown) (unknown) (unknown) (no date) (unknown) (unknown) repeat 254, AST 87, ALT 88, alk-phos 144, UA negative, lactate negative, lipase (units unknown) (unknown) (unknown) (no date) (unknown) (unknown) repeat 91. COVID negative. EKG sinus rhythm rate 72 QTC 499, without ST or T (units unknown) (unknown) (unknown) (no date) (unknown) (unknown) right forearm.? Thes e all have occurred when he has been intoxicated and home (units unknown) (unknown) (unknown) (no date) (unknown) (unknown) sacrum (units unknown) (unknown) (unknown) (no date) (unknown) (unknown) scapula fracture, an d L1/L2 transverse process fracture. Patient admitted for (units unknown) (unknown) (unknown) (no date) (unknown) (unknown) still. (units unknown) (unknown) (unknown) (no date) (unknown) (unknown) stimulator in back lumbar + Dilaudid pain pump in abdomen.? EMS had apparently (units unknown) (unknown) (unknown) (no date) (unknown) (unknown) superficial lee noted to his right forearm (units unknown) (unknown) (unknown) (no date) (unknown) (unknown) superficial laceration over his right forehead, small burn right forearm, (units unknown) (unknown) (unknown) (no date) (unknown) (unknown) symptoms are still fairly mild and will keep same dose today. (units unknown) (unknown) (unknown) (no date) (unknown) (unknown) tamsulosin 0.4 mg capsule (units unknown) (unknown) (unknown) (no date) (unknown) (unknown) then 25mg once daily for 2 days then stop (units unknown) (unknown) (unknown) (no date) (unknown) (unknown) to encephalopathy. E D reported patient had an episode of atrial fibrillation (units unknown) (unknown) (unknown) (no date) (unknown) (unknown) to kill himself to the medics and when asked in ED he ' stated he did want to (units unknown) (unknown) (unknown) (no date) (unknown) (unknown) wave changes. Chest x-ray negative, C-spine negative, pelvic x-ray negative, (units unknown) (unknown) (unknown) (no date) (unknown) (unknown) well as his gluteal area/sacrum.? He also has some superficial lee to his (units unknown) (unknown) (unknown) (no date) (unknown) (unknown) when or if he is taken his medication. He did make statements that he wanted (units unknown) (unknown) (unknown) (no date) (unknown) (unknown) which he was given a dose of metoprolol.? CHADS2 Vasc score is 2, consistent (units unknown) (unknown) (unknown) (no date) (unknown) (unknown) which metoprolol was given and quickly resolved. (units unknown) (unknown) (unknown) (no date) (unknown) (unknown) will work on [employer] resources.? He would benefit most from inpatient to (units unknown) (unknown) (unknown) (no date) (unknown) (unknown) with a 2.2% stroke risk annually.? Unfortunately, he would be a very poor (units unknown) (unknown) (unknown) (no date) (unknown) (unknown) yesterday, with librium noted above will continue to hold today. (units unknown) (unknown) Result panel 271 (unknown) (no date) (unknown) (unknown) (no value) (units unknown) (unknown) (unknown) (no date) (unknown) (unknown) (past 8 hours): (units unknown) (unknown) (unknown) (no date) (unknown) (unknown) Discharges patien t from system. (units unknown) (unknown) (unknown) (no date) (unknown) (unknown) -discharged on librium 25mg TID with taper (units unknown) (unknown) (unknown) (no date) (unknown) (unknown) -no accepting facilities with pain pump, patient will explore inpatient options (units unknown) (unknown) (unknown) (no date) (unknown) (unknown) -resumed BP meds on discharge (units unknown) (unknown) (unknown) (no date) (unknown) (unknown) 0.4 mg PO DAILY (units unknown) (unknown) (unknown) (no date) (unknown) (unknown) [id number] (units unknown) (unknown) (unknown) (no date) (unknown) (unknown) 03:30 01/19/23 (units unknown) (unknown) (unknown) (no date) (unknown) (unknown) 03:33 01/19/23 (units unknown) (unknown) (unknown) (no date) (unknown) (unknown) 01/14/23 22:12 (units unknown) (unknown) (unknown) (no date) (unknown) (unknown) 01/14/23 22:26 (units unknown) (unknown) (unknown) (no date) (unknown) (unknown) 01/14/23 22:37 (units unknown) (unknown) (unknown) (no date) (unknown) (unknown) 01/14/23 22:38 (units unknown) (unknown) (unknown) (no date) (unknown) (unknown) 01/15/23 18:02 (units unknown) (unknown) (unknown) (no date) (unknown) (unknown) 01/16/23 12:41 (units unknown) (unknown) (unknown) (no date) (unknown) (unknown) 01/16/23 14:55 (units unknown) (unknown) (unknown) (no date) (unknown) (unknown) 01/19/23 01/19/23 (units unknown) (unknown) (unknown) (no date) (unknown) (unknown) 01/19/23 06:23 (units unknown) (unknown) (unknown) (no date) (unknown) (unknown) 01/19/23 (units unknown) (unknown) (unknown) (no date) (unknown) (unknown) 06:23 06:23 (units unknown) (unknown) (unknown) (no date) (unknown) (unknown) 07:00 (units unknown) (unknown) (unknown) (no date) (unknown) (unknown) 08:42 (units unknown) (unknown) (unknown) (no date) (unknown) (unknown) 1. Alcohol dependenc e with withdrawal (units unknown) (unknown) (unknown) (no date) (unknown) (unknown) 10. Hyponatremia (units unknown) (unknown) (unknown) (no date) (unknown) (unknown) 100 mg PO DAILY (units unknown) (unknown) (unknown) (no date) (unknown) (unknown) 11. Hypomagnesemia (units unknown) (unknown) (unknown) (no date) (unknown) (unknown) 12. Transaminitis (units unknown) (unknown) (unknown) (no date) (unknown) (unknown) 13. hypomagnesemia (units unknown) (unknown) (unknown) (no date) (unknown) (unknown) 2. Suicidal ideation (units unknown) (unknown) (unknown) (no date) (unknown) (unknown) 20 mg PO BID (units unknown) (unknown) (unknown) (no date) (unknown) (unknown) 20 mg PO DAILY (units unknown) (unknown) (unknown) (no date) (unknown) (unknown) 20 unit SUBCUT BEDTIME (units unknown) (unknown) (unknown) (no date) (unknown) (unknown) 25 mg orally three times daily for 2 days, then 25mg twice daily for 2 days, (units unknown) (unknown) (unknown) (no date) (unknown) (unknown) 3. Multiple falls secondary to gait instability (units unknown) (unknown) (unknown) (no date) (unknown) (unknown) 4. Paroxysmal atrial fibrillation (units unknown) (unknown) (unknown) (no date) (unknown) (unknown) 40 mg PO BEDTIME (units unknown) (unknown) (unknown) (no date) (unknown) (unknown) 5 days and able to tolerate with librium alone. Patient had suicidal ideation (units unknown) (unknown) (unknown) (no date) (unknown) (unknown) 5. Diabetes mellitus , type unclear (units unknown) (unknown) (unknown) (no date) (unknown) (unknown) 6. Hypertension (units unknown) (unknown) (unknown) (no date) (unknown) (unknown) 7. Chronic pain syndrome (units unknown) (unknown) (unknown) (no date) (unknown) (unknown) 8. BPH (units unknown) (unknown) (unknown) (no date) (unknown) (unknown) 9. Anemia (units unknown) (unknown) (unknown) (no date) (unknown) (unknown) ?- repleted with IV, may be contributing to weakness. (units unknown) (unknown) (unknown) (no date) (unknown) (unknown) ABD: Soft, NT/ND, BT present in all 4 quadrants, no organomegaly or masses (units unknown) (unknown) (unknown) (no date) (unknown) (unknown) ADMINISTER 2 TO 10 UNITS UNDER THE SKIN BEFORE MEALS AND AT BEDTIME (units unknown) (unknown) (unknown) (no date) (unknown) (unknown) ADMINISTER 20 UNITS UNDER THE SKIN EVERY EVENING (units unknown) (unknown) (unknown) (no date) (unknown) (unknown) Admitted for alcohol withdrawals and received ativan and librium. Improved over (units unknown) (unknown) (unknown) (no date) (unknown) (unknown) Age/Sex: 53 / M (units unknown) (unknown) (unknown) (no date) (unknown) (unknown) Alcohol intoxication (units unknown) (unknown) (unknown) (no date) (unknown) (unknown) BPH (benign prostati c hyperplasia) (units unknown) (unknown) (unknown) (no date) (unknown) (unknown) BUN 12 (units unknown) (unknown) (unknown) (no date) (unknown) (unknown) BUN/Creatinine Ratio 20.0 (units unknown) (unknown) (unknown) (no date) (unknown) (unknown) Baso # (Auto) 0 (units unknown) (unknown) (unknown) (no date) (unknown) (unknown) Baso % (Auto) 1.0 (units unknown) (unknown) (unknown) (no date) (unknown) (unknown) Behavioral Health Assess (units unknown) (unknown) (unknown) (no date) (unknown) (unknown) Blood Pressure 127/7 4 127/74 127/85 (units unknown) (unknown) (unknown) (no date) (unknown) (unknown) Blood Pressure 127/85 (units unknown) (unknown) (unknown) (no date) (unknown) (unknown) CHEST: Respiratory excursions symmetric, CTAB (units unknown) (unknown) (unknown) (no date) (unknown) (unknown) CV: RRR, no M/R/G (units unknown) (unknown) (unknown) (no date) (unknown) (unknown) Calcium 8.8 (units unknown) (unknown) (unknown) (no date) (unknown) (unknown) Carbon Dioxide 29 (units unknown) (unknown) (unknown) (no date) (unknown) (unknown) Chief complaint: Trauma (units unknown) (unknown) (unknown) (no date) (unknown) (unknown) Chloride 100 (units unknown) (unknown) (unknown) (no date) (unknown) (unknown) Chronic low back pain (units unknown) (unknown) (unknown) (no date) (unknown) (unknown) Comment: ETOH Abuse, SI (units unknown) (unknown) (unknown) (no date) (unknown) (unknown) Comment: Wound care (units unknown) (unknown) (unknown) (no date) (unknown) (unknown) Comment: (units unknown) (unknown) (unknown) (no date) (unknown) (unknown) Congestive heart failure (units unknown) (unknown) (unknown) (no date) (unknown) (unknown) Consult to Dietitian , Adult Routine (units unknown) (unknown) (unknown) (no date) (unknown) (unknown) Consult to Home Health Routine (units unknown) (unknown) (unknown) (no date) (unknown) (unknown) Consult to [facility] [place] - 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 Routine (units unknown) (unknown) (unknown) (no date) (unknown) (unknown) Consult to Occupational Therapy Evaluate + Treat (units unknown) (unknown) (unknown) (no date) (unknown) (unknown) Consult to Physical Therapy Evaluate + Treat (units unknown) (unknown) (unknown) (no date) (unknown) (unknown) Consults: (units unknown) (unknown) (unknown) (no date) (unknown) (unknown) Continue Flomax (units unknown) (unknown) (unknown) (no date) (unknown) (unknown) Continued (units unknown) (unknown) (unknown) (no date) (unknown) (unknown) Creatinine 0.60 L (units unknown) (unknown) (unknown) (no date) (unknown) (unknown) : 1970 Acct:[id number] (units unknown) (unknown) (unknown) (no date) (unknown) (unknown) Date Patient Seen: 01/14/23 (units unknown) (unknown) (unknown) (no date) (unknown) (unknown) Date of Service: 01/14/23 (units unknown) (unknown) (unknown) (no date) (unknown) (unknown) Date of admission: (units unknown) (unknown) (unknown) (no date) (unknown) (unknown) Deep Vein Thrombosis/Pulmonary Embolism Present on Admission: No (units unknown) (unknown) (unknown) (no date) (unknown) (unknown) Discharge Date/Time: 01/19/23 11:08 (units unknown) (unknown) (unknown) (no date) (unknown) (unknown) Discharge Date: 01/19/23 (units unknown) (unknown) (unknown) (no date) (unknown) (unknown) Discharge Diagnosis: (units unknown) (unknown) (unknown) (no date) (unknown) (unknown) Discharge Plan (units unknown) (unknown) (unknown) (no date) (unknown) (unknown) Discharge Providers (units unknown) (unknown) (unknown) (no date) (unknown) (unknown) Discharge Summary (units unknown) (unknown) (unknown) (no date) (unknown) (unknown) Discharge orders + Medications (units unknown) (unknown) (unknown) (no date) (unknown) (unknown) Discharge provider: (units unknown) (unknown) (unknown) (no date) (unknown) (unknown) Does have prior history of DT, symptoms today are consistent with withdrawal (units unknown) (unknown) (unknown) (no date) (unknown) (unknown) EXTR: warm, well perfused, no C/C/E, scattered bruising noted to his arms, (units unknown) (unknown) (unknown) (no date) (unknown) (unknown) Eos # (Auto) 300 (units unknown) (unknown) (unknown) (no date) (unknown) (unknown) Eos % (Auto) 5.2 H (units unknown) (unknown) (unknown) (no date) (unknown) (unknown) Essential hypertension (units unknown) (unknown) (unknown) (no date) (unknown) (unknown) Estimated GFR > 60 (units unknown) (unknown) (unknown) (no date) (unknown) (unknown) Exam Narrative: (units unknown) (unknown) (unknown) (no date) (unknown) (unknown) Exam (units unknown) (unknown) (unknown) (no date) (unknown) (unknown) Family History (Updated 01/15/23 @ 02:24 by Genesis Dunn, HEALTH AND WELLNESS SALES CONSULTANT-BC) (units unknown) (unknown) (unknown) (no date) (unknown) (unknown) Father Diabetes mellitus (units unknown) (unknown) (unknown) (no date) (unknown) (unknown) GEN: Alert and oriented x 3, no acute distress (units unknown) (unknown) (unknown) (no date) (unknown) (unknown) Glucose 139 H (units unknown) (unknown) (unknown) (no date) (unknown) (unknown) HEENT:NC, Face symmetric (units unknown) (unknown) (unknown) (no date) (unknown) (unknown) HLD, BPH, insulin-dependent diabetes and chronic low back pain tx with InterStim (units unknown) (unknown) (unknown) (no date) (unknown) (unknown) Hct 36.0 L (units unknown) (unknown) (unknown) (no date) (unknown) (unknown) Hgb 12.1 L (units unknown) (unknown) (unknown) (no date) (unknown) (unknown) History of Present Illness (units unknown) (unknown) (unknown) (no date) (unknown) (unknown) History of shoulder surgery (units unknown) (unknown) (unknown) (no date) (unknown) (unknown) Hospital Course (units unknown) (unknown) (unknown) (no date) (unknown) (unknown) Hospital Course: (units unknown) (unknown) (unknown) (no date) (unknown) (unknown) Hyperlipidemia due t o type 1 diabetes mellitus (units unknown) (unknown) (unknown) (no date) (unknown) (unknown) [address] [address] (units unknown) (unknown) (unknown) (no date) (unknown) (unknown) Laboratory Results - last 24 hr (units unknown) (unknown) (unknown) (no date) (unknown) (unknown) Labs (units unknown) (unknown) (unknown) (no date) (unknown) (unknown) Labs: (units unknown) (unknown) (unknown) (no date) (unknown) (unknown) 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 LFTs are presently improving.? (units unknown) (unknown) (unknown) (no date) (unknown) (unknown) Lymph # (Auto) 1500 (units unknown) (unknown) (unknown) (no date) (unknown) (unknown) Lymph % (Auto) 30.8 (units unknown) (unknown) (unknown) (no date) (unknown) (unknown) MCH 32.5 (units unknown) (unknown) (unknown) (no date) (unknown) (unknown) MCHC 33.6 (units unknown) (unknown) (unknown) (no date) (unknown) (unknown) MCV 96.6 (units unknown) (unknown) (unknown) (no date) (unknown) (unknown) [employer] Consult needed for:: Substance Abuse Assess (units unknown) (unknown) (unknown) (no date) (unknown) (unknown) Magnesium 1.4 L (units unknown) (unknown) (unknown) (no date) (unknown) (unknown) Luca Dillard DO (units unknown) (unknown) (unknown) (no date) (unknown) (unknown) Medical History (units unknown) (unknown) (unknown) (no date) (unknown) (unknown) Sj Romo is a 53-year-old male with known history of alcohol abuse, HTN, (units unknown) (unknown) (unknown) (no date) (unknown) (unknown) Mild, Will monitor. (units unknown) (unknown) (unknown) (no date) (unknown) (unknown) [place] # (Auto) 400 (units unknown) (unknown) (unknown) (no date) (unknown) (unknown) [place] % (Auto) 7.7 (units unknown) (unknown) (unknown) (no date) (unknown) (unknown) Mother Diabetes mellitus (units unknown) (unknown) (unknown) (no date) (unknown) (unknown) Multiple falls (units unknown) (unknown) (unknown) (no date) (unknown) (unknown) NEURO: Alert and oriented x 3, mild tremulousness. (units unknown) (unknown) (unknown) (no date) (unknown) (unknown) Narrative (units unknown) (unknown) (unknown) (no date) (unknown) (unknown) Narrative: (units unknown) (unknown) (unknown) (no date) (unknown) (unknown) Neut # (Auto) 2700 (units unknown) (unknown) (unknown) (no date) (unknown) (unknown) Neut % (Auto) 55.3 (units unknown) (unknown) (unknown) (no date) (unknown) (unknown) New (units unknown) (unknown) (unknown) (no date) (unknown) (unknown) Normocytic.? Likely secondary to alcohol-induced marrow suppression. (units unknown) (unknown) (unknown) (no date) (unknown) (unknown) Objective (units unknown) (unknown) (unknown) (no date) (unknown) (unknown) Oxygen Delivery Method Room Air (units unknown) (unknown) (unknown) (no date) (unknown) (unknown) Oxygen Flow Rate 0 0 (units unknown) (unknown) (unknown) (no date) (unknown) (unknown) Oxygen Flow Rate 0 (units unknown) (unknown) (unknown) (no date) (unknown) (unknown) Oxygen Flow Rate (units unknown) (unknown) (unknown) (no date) (unknown) (unknown) PFSH (units unknown) (unknown) (unknown) (no date) (unknown) (unknown) Patient Comments: (units unknown) (unknown) (unknown) (no date) (unknown) (unknown) Patient Disposition: Home (units unknown) (unknown) (unknown) (no date) (unknown) (unknown) Patient continues on Lantus and sliding scale. Certainly he could have insulin (units unknown) (unknown) (unknown) (no date) (unknown) (unknown) Patient has a healin g laceration to his right forehead, bruises to his arms, as (units unknown) (unknown) (unknown) (no date) (unknown) (unknown) Patient has a spinal stimulator in place as well as an intrathecal hydromorphone (units unknown) (unknown) (unknown) (no date) (unknown) (unknown) Patient has had multiple prior attempts from what his brother told me.? No plan (units unknown) (unknown) (unknown) (no date) (unknown) (unknown) Patient is on lisinopril and propranolol.? He did develop some hypotension (units unknown) (unknown) (unknown) (no date) (unknown) (unknown) Patient was noted to have an episode of AFib in the emergency department for (units unknown) (unknown) (unknown) (no date) (unknown) (unknown) Patient: DemetriusSj Murrieta MR#: [id number] (units unknown) (unknown) (unknown) (no date) (unknown) (unknown) Physician Instructions: Evaluate and Treat (units unknown) (unknown) (unknown) (no date) (unknown) (unknown) Physician Instructions: Evaluate and treat (units unknown) (unknown) (unknown) (no date) (unknown) (unknown) Plt Count 321 (units unknown) (unknown) (unknown) (no date) (unknown) (unknown) Potassium 3.9 (units unknown) (unknown) (unknown) (no date) (unknown) (unknown) Prescriptions: (units unknown) (unknown) (unknown) (no date) (unknown) (unknown) Provider (units unknown) (unknown) (unknown) (no date) (unknown) (unknown) Provider: Luca Dillard D.O. (units unknown) (unknown) (unknown) (no date) (unknown) (unknown) Pulse Oximetry 96 95 (units unknown) (unknown) (unknown) (no date) (unknown) (unknown) Pulse Oximetry (units unknown) (unknown) (unknown) (no date) (unknown) (unknown) Pulse Rate 60 60 68 (units unknown) (unknown) (unknown) (no date) (unknown) (unknown) Pulse Rate (units unknown) (unknown) (unknown) (no date) (unknown) (unknown) Quality (units unknown) (unknown) (unknown) (no date) (unknown) (unknown) RBC 3.73 L (units unknown) (unknown) (unknown) (no date) (unknown) (unknown) RDW 13.4 (units unknown) (unknown) (unknown) (no date) (unknown) (unknown) Reason For Exam: Arrange Home Health with Signature HACH program (units unknown) (unknown) (unknown) (no date) (unknown) (unknown) Reason For Exam: DM, ETOH abuse (units unknown) (unknown) (unknown) (no date) (unknown) (unknown) Respiratory Rate 17 17 18 (units unknown) (unknown) (unknown) (no date) (unknown) (unknown) Respiratory Rate (units unknown) (unknown) (unknown) (no date) (unknown) (unknown) Rx Instructions: (units unknown) (unknown) (unknown) (no date) (unknown) (unknown) SKIN: warm and dry, no rash, large dark bruise noted round his gluteal folds and (units unknown) (unknown) (unknown) (no date) (unknown) (unknown) See Rx Instructions .ROUTE .COMPLEX Qty: 12 0RF (units unknown) (unknown) (unknown) (no date) (unknown) (unknown) See Rx Instructions .ROUTE .COMPLEX (units unknown) (unknown) (unknown) (no date) (unknown) (unknown) Signed By: (units unknown) (unknown) (unknown) (no date) (unknown) (unknown) Smoking Status: Milagro huang smoker (units unknown) (unknown) (unknown) (no date) (unknown) (unknown) Social History (Updated 01/15/23 @ 02:23 by DOUG Chairez) (units unknown) (unknown) (unknown) (no date) (unknown) (unknown) Sodium 137 (units unknown) (unknown) (unknown) (no date) (unknown) (unknown) Stand Alone Forms: Patient Portal/API, Stroke Signs + Symptoms (units unknown) (unknown) (unknown) (no date) (unknown) (unknown) Summary (units unknown) (unknown) (unknown) (no date) (unknown) (unknown) Surgical History (units unknown) (unknown) (unknown) (no date) (unknown) (unknown) TAKE 1 CAPSULE BY MOUTH DAILY (units unknown) (unknown) (unknown) (no date) (unknown) (unknown) TAKE 1 TABLET BY MOUTH EVERY EVENING (units unknown) (unknown) (unknown) (no date) (unknown) (unknown) TAKE 1 TABLET BY MOUTH EVERY MORNING (units unknown) (unknown) (unknown) (no date) (unknown) (unknown) Take 1 tablet by mouth twice a day (units unknown) (unknown) (unknown) (no date) (unknown) (unknown) Temperature 97.4 F L 97.3 F L (units unknown) (unknown) (unknown) (no date) (unknown) (unknown) Temperature (units unknown) (unknown) (unknown) (no date) (unknown) (unknown) Time Patient Seen: 22:42 (units unknown) (unknown) (unknown) (no date) (unknown) (unknown) Time Spent with Patient (units unknown) (unknown) (unknown) (no date) (unknown) (unknown) Time spent: Greater than 30 minutes (units unknown) (unknown) (unknown) (no date) (unknown) (unknown) VTE (units unknown) (unknown) (unknown) (no date) (unknown) (unknown) Visit Report/Discharge Packet (units unknown) (unknown) (unknown) (no date) (unknown) (unknown) Vital Signs (units unknown) (unknown) (unknown) (no date) (unknown) (unknown) WBC 4.9 (units unknown) (unknown) (unknown) (no date) (unknown) (unknown) When asked on admit regarding code status patient requested to be a full code, (units unknown) (unknown) (unknown) (no date) (unknown) (unknown) Will monitor. (units unknown) (unknown) (unknown) (no date) (unknown) (unknown) [Embedded Image Not Available] (units unknown) (unknown) (unknown) (no date) (unknown) (unknown) admit patient is unable to state where he is unable to recall how or when he (units unknown) (unknown) (unknown) (no date) (unknown) (unknown) alcohol intake: current (units unknown) (unknown) (unknown) (no date) (unknown) (unknown) alone. 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 PT and OT evaulated. (units unknown) (unknown) (unknown) (no date) (unknown) (unknown) and denied suicide ideation. patient is hemodynamically stable pleasant (units unknown) (unknown) (unknown) (no date) (unknown) (unknown) and this has not recurred. TTE was unremarkable. (units unknown) (unknown) (unknown) (no date) (unknown) (unknown) at this time but he notes he does not feel safe at home.? Would likely benefit (units unknown) (unknown) (unknown) (no date) (unknown) (unknown) atorvastatin 40 mg tablet (units unknown) (unknown) (unknown) (no date) (unknown) (unknown) attempted librium previously but BP dipped, but may have been due to medications (units unknown) (unknown) (unknown) (no date) (unknown) (unknown) attempts to transfer patient for detox, but was refused due to hyperglycemia, (units unknown) (unknown) (unknown) (no date) (unknown) (unknown) been called to the patient's home several times over the last few days, he was (units unknown) (unknown) (unknown) (no date) (unknown) (unknown) bruising left abdomen, upper abd, chest, scabbed abrasion to left anterior lower (units unknown) (unknown) (unknown) (no date) (unknown) (unknown) but no plan. Unable to get any accepting facility for inpatient psych treatment. (units unknown) (unknown) (unknown) (no date) (unknown) (unknown) candidate for anticoagulation due to his alcohol dependence and frequent falls (units unknown) (unknown) (unknown) (no date) (unknown) (unknown) chlordiazepoxide HCl 25 mg Capsule (units unknown) (unknown) (unknown) (no date) (unknown) (unknown) continue CIWA protocol with prn benzos. (units unknown) (unknown) (unknown) (no date) (unknown) (unknown) continue prn repletion (units unknown) (unknown) (unknown) (no date) (unknown) (unknown) converses easily but is confused. WBC 4.3, H+H 12.3/36.9, initial glucose 344, (units unknown) (unknown) (unknown) (no date) (unknown) (unknown) couple of weeks for refill. (units unknown) (unknown) (unknown) (no date) (unknown) (unknown) covered in a variety of multiple injuries in varying degrees healing, a scabbed (units unknown) (unknown) (unknown) (no date) (unknown) (unknown) dependence.? A bit unclear on when he was diagnosed and there is not any (units unknown) (unknown) (unknown) (no date) (unknown) (unknown) dependent diabetes secondary to pancreatic insufficiency related to his alcohol (units unknown) (unknown) (unknown) (no date) (unknown) (unknown) dextroamphetamine-am p hetamine 20 mg tablet (units unknown) (unknown) (unknown) (no date) (unknown) (unknown) did not answer.? Patient was seen and evaluated by [facility] in the ED made multiple (units unknown) (unknown) (unknown) (no date) (unknown) (unknown) elevated QTC on EKG, and encephalopathy. Unable to obtain accurate HPI, ROS due (units unknown) (unknown) (unknown) (no date) (unknown) (unknown) extremities well.? I s conversant but confused.? Patient states he drinks at (units unknown) (unknown) (unknown) (no date) (unknown) (unknown) extremity, significant deep bruising to lower coccyx area. Patient denies (units unknown) (unknown) (unknown) (no date) (unknown) (unknown) fall, head injury, atrial fibrillation, encephalopathy, ETOH abuse/intoxication, (units unknown) (unknown) (unknown) (no date) (unknown) (unknown) fingersticks, slidin g scale, and Lantus. (units unknown) (unknown) (unknown) (no date) (unknown) (unknown) for RVR. Now increased back to 25 TID. With shakiness thought of increasing but (units unknown) (unknown) (unknown) (no date) (unknown) (unknown) found down this evening on the bathroom floor with broken glass perhaps broken (units unknown) (unknown) (unknown) (no date) (unknown) (unknown) from a program that does dual diagnosis.? [facility] met with the patient today and (units unknown) (unknown) (unknown) (no date) (unknown) (unknown) furosemide 20 mg tablet (units unknown) (unknown) (unknown) (no date) (unknown) (unknown) head CT negative, CT of abdomen/pelvis multiple remote left rib fractures, left (units unknown) (unknown) (unknown) (no date) (unknown) (unknown) himself potentially in [place] (units unknown) (unknown) (unknown) (no date) (unknown) (unknown) household members: none (units unknown) (unknown) (unknown) (no date) (unknown) (unknown) hyperglycemia. (units unknown) (unknown) (unknown) (no date) (unknown) (unknown) information with regard to his diabetes in the medical record.? We will continue (units unknown) (unknown) (unknown) (no date) (unknown) (unknown) inpatient transfer but this is hightly unlikely despite patient and care (units unknown) (unknown) (unknown) (no date) (unknown) (unknown) insulin glargine [Lantus Solostar U-100 Insulin] 100 unit/mL (3 mL) insulin (units unknown) (unknown) (unknown) (no date) (unknown) (unknown) insulin lispro [Humalog KwikPen Insulin] 100 unit/mL insulin pen (units unknown) (unknown) (unknown) (no date) (unknown) (unknown) kill himself when asked why he did not answer'? When asked if he has a plan he (units unknown) (unknown) (unknown) (no date) (unknown) (unknown) least a 5th of Vodka daily, denies tobacco or illicit.? Patient is unable to (units unknown) (unknown) (unknown) (no date) (unknown) (unknown) losartan 100 mg tablet (units unknown) (unknown) (unknown) (no date) (unknown) (unknown) management searching multiple facilities. Complicated due to patient's chronic (units unknown) (unknown) (unknown) (no date) (unknown) (unknown) medical conditions including stimulator and hydromorphone pump. (units unknown) (unknown) (unknown) (no date) (unknown) (unknown) mirror and blood at the scene. Patient is confused, but redirectable. During (units unknown) (unknown) (unknown) (no date) (unknown) (unknown) negative, tox screen is positive for opiates and benzos, initial ETOH 308, (units unknown) (unknown) (unknown) (no date) (unknown) (unknown) obtain these injurie s in the events that led him to the hospital today. He is (units unknown) (unknown) (unknown) (no date) (unknown) (unknown) pain, no shortness o f breath, no GI or urinary symptoms.? He is moving all his (units unknown) (unknown) (unknown) (no date) (unknown) (unknown) pen (units unknown) (unknown) (unknown) (no date) (unknown) (unknown) propranolol 20 mg tablet (units unknown) (unknown) (unknown) (no date) (unknown) (unknown) pump.? He reports th e pump was filled every 2 months and he is not due for a (units unknown) (unknown) (unknown) (no date) (unknown) (unknown) recall what his medications are he believes he is on insulins but he has no idea (units unknown) (unknown) (unknown) (no date) (unknown) (unknown) repeat 254, AST 87, ALT 88, alk-phos 144, UA negative, lactate negative, lipase (units unknown) (unknown) (unknown) (no date) (unknown) (unknown) repeat 91. COVID negative. EKG sinus rhythm rate 72 QTC 499, without ST or T (units unknown) (unknown) (unknown) (no date) (unknown) (unknown) right forearm.? Thes e all have occurred when he has been intoxicated and home (units unknown) (unknown) (unknown) (no date) (unknown) (unknown) sacrum (units unknown) (unknown) (unknown) (no date) (unknown) (unknown) scapula fracture, an d L1/L2 transverse process fracture. Patient admitted for (units unknown) (unknown) (unknown) (no date) (unknown) (unknown) still. (units unknown) (unknown) (unknown) (no date) (unknown) (unknown) stimulator in back lumbar + Dilaudid pain pump in abdomen.? EMS had apparently (units unknown) (unknown) (unknown) (no date) (unknown) (unknown) superficial lee noted to his right forearm (units unknown) (unknown) (unknown) (no date) (unknown) (unknown) superficial laceration over his right forehead, small burn right forearm, (units unknown) (unknown) (unknown) (no date) (unknown) (unknown) symptoms are still fairly mild and will keep same dose today. (units unknown) (unknown) (unknown) (no date) (unknown) (unknown) tamsulosin 0.4 mg capsule (units unknown) (unknown) (unknown) (no date) (unknown) (unknown) then 25mg once daily for 2 days then stop (units unknown) (unknown) (unknown) (no date) (unknown) (unknown) to encephalopathy. E D reported patient had an episode of atrial fibrillation (units unknown) (unknown) (unknown) (no date) (unknown) (unknown) to kill himself to the medics and when asked in ED he ' stated he did want to (units unknown) (unknown) (unknown) (no date) (unknown) (unknown) wave changes. Chest x-ray negative, C-spine negative, pelvic x-ray negative, (units unknown) (unknown) (unknown) (no date) (unknown) (unknown) well as his gluteal area/sacrum.? He also has some superficial lee to his (units unknown) (unknown) (unknown) (no date) (unknown) (unknown) when or if he is taken his medication. He did make statements that he wanted (units unknown) (unknown) (unknown) (no date) (unknown) (unknown) which he was given a dose of metoprolol.? CHADS2 Vasc score is 2, consistent (units unknown) (unknown) (unknown) (no date) (unknown) (unknown) which metoprolol was given and quickly resolved. (units unknown) (unknown) (unknown) (no date) (unknown) (unknown) will work on [employer] resources.? He would benefit most from inpatient to (units unknown) (unknown) (unknown) (no date) (unknown) (unknown) with a 2.2% stroke risk annually.? Unfortunately, he would be a very poor (units unknown) (unknown) (unknown) (no date) (unknown) (unknown) yesterday, with librium noted above will continue to hold today. (units unknown) (unknown) Result panel 272 (unknown) (no date) (unknown) (unknown) (no value) (units unknown) (unknown) (unknown) (no date) (unknown) (unknown) (past 8 hours): (units unknown) (unknown) (unknown) (no date) (unknown) (unknown) Discharges patien t from system. (units unknown) (unknown) (unknown) (no date) (unknown) (unknown) -discharged on librium 25mg TID with taper (units unknown) (unknown) (unknown) (no date) (unknown) (unknown) -no accepting facilities with pain pump, patient will explore inpatient options (units unknown) (unknown) (unknown) (no date) (unknown) (unknown) -resumed BP meds on discharge (units unknown) (unknown) (unknown) (no date) (unknown) (unknown) 0.4 mg PO DAILY (units unknown) (unknown) (unknown) (no date) (unknown) (unknown) [id number] (units unknown) (unknown) (unknown) (no date) (unknown) (unknown) 03:30 01/19/23 (units unknown) (unknown) (unknown) (no date) (unknown) (unknown) 03:33 01/19/23 (units unknown) (unknown) (unknown) (no date) (unknown) (unknown) 01/14/23 22:12 (units unknown) (unknown) (unknown) (no date) (unknown) (unknown) 01/14/23 22:26 (units unknown) (unknown) (unknown) (no date) (unknown) (unknown) 01/14/23 22:37 (units unknown) (unknown) (unknown) (no date) (unknown) (unknown) 01/14/23 22:38 (units unknown) (unknown) (unknown) (no date) (unknown) (unknown) 01/15/23 18:02 (units unknown) (unknown) (unknown) (no date) (unknown) (unknown) 01/16/23 12:41 (units unknown) (unknown) (unknown) (no date) (unknown) (unknown) 01/16/23 14:55 (units unknown) (unknown) (unknown) (no date) (unknown) (unknown) 01/19/23 01/19/23 (units unknown) (unknown) (unknown) (no date) (unknown) (unknown) 01/19/23 06:23 (units unknown) (unknown) (unknown) (no date) (unknown) (unknown) 01/19/23 1753 (units unknown) (unknown) (unknown) (no date) (unknown) (unknown) 01/19/23 (units unknown) (unknown) (unknown) (no date) (unknown) (unknown) 06:23 06:23 (units unknown) (unknown) (unknown) (no date) (unknown) (unknown) 07:00 (units unknown) (unknown) (unknown) (no date) (unknown) (unknown) 08:42 (units unknown) (unknown) (unknown) (no date) (unknown) (unknown) 1. Alcohol dependenc e with withdrawal (units unknown) (unknown) (unknown) (no date) (unknown) (unknown) 10. Hyponatremia (units unknown) (unknown) (unknown) (no date) (unknown) (unknown) 100 mg PO DAILY (units unknown) (unknown) (unknown) (no date) (unknown) (unknown) 11. Hypomagnesemia (units unknown) (unknown) (unknown) (no date) (unknown) (unknown) 12. Transaminitis (units unknown) (unknown) (unknown) (no date) (unknown) (unknown) 13. hypomagnesemia (units unknown) (unknown) (unknown) (no date) (unknown) (unknown) 2. Suicidal ideation (units unknown) (unknown) (unknown) (no date) (unknown) (unknown) 20 mg PO BID (units unknown) (unknown) (unknown) (no date) (unknown) (unknown) 20 mg PO DAILY (units unknown) (unknown) (unknown) (no date) (unknown) (unknown) 20 unit SUBCUT BEDTIME (units unknown) (unknown) (unknown) (no date) (unknown) (unknown) 25 mg orally three times daily for 2 days, then 25mg twice daily for 2 days, (units unknown) (unknown) (unknown) (no date) (unknown) (unknown) 3. Multiple falls secondary to gait instability (units unknown) (unknown) (unknown) (no date) (unknown) (unknown) 4. Paroxysmal atrial fibrillation (units unknown) (unknown) (unknown) (no date) (unknown) (unknown) 40 mg PO BEDTIME (units unknown) (unknown) (unknown) (no date) (unknown) (unknown) 5 days and able to tolerate with librium alone. Patient had suicidal ideation (units unknown) (unknown) (unknown) (no date) (unknown) (unknown) 5. Diabetes mellitus , type unclear (units unknown) (unknown) (unknown) (no date) (unknown) (unknown) 6. Hypertension (units unknown) (unknown) (unknown) (no date) (unknown) (unknown) 7. Chronic pain syndrome (units unknown) (unknown) (unknown) (no date) (unknown) (unknown) 8. BPH (units unknown) (unknown) (unknown) (no date) (unknown) (unknown) 9. Anemia (units unknown) (unknown) (unknown) (no date) (unknown) (unknown) ?- repleted with IV, may be contributing to weakness. (units unknown) (unknown) (unknown) (no date) (unknown) (unknown) ABD: Soft, NT/ND, BT present in all 4 quadrants, no organomegaly or masses (units unknown) (unknown) (unknown) (no date) (unknown) (unknown) ADMINISTER 2 TO 10 UNITS UNDER THE SKIN BEFORE MEALS AND AT BEDTIME (units unknown) (unknown) (unknown) (no date) (unknown) (unknown) ADMINISTER 20 UNITS UNDER THE SKIN EVERY EVENING (units unknown) (unknown) (unknown) (no date) (unknown) (unknown) Admitted for alcohol withdrawals and received ativan and librium. Improved over (units unknown) (unknown) (unknown) (no date) (unknown) (unknown) Age/Sex: 53 / M (units unknown) (unknown) (unknown) (no date) (unknown) (unknown) Alcohol intoxication (units unknown) (unknown) (unknown) (no date) (unknown) (unknown) BPH (benign prostati c hyperplasia) (units unknown) (unknown) (unknown) (no date) (unknown) (unknown) BUN 12 (units unknown) (unknown) (unknown) (no date) (unknown) (unknown) BUN/Creatinine Ratio 20.0 (units unknown) (unknown) (unknown) (no date) (unknown) (unknown) Baso # (Auto) 0 (units unknown) (unknown) (unknown) (no date) (unknown) (unknown) Baso % (Auto) 1.0 (units unknown) (unknown) (unknown) (no date) (unknown) (unknown) Behavioral Health Assess (units unknown) (unknown) (unknown) (no date) (unknown) (unknown) Blood Pressure 127/7 4 127/74 127/85 (units unknown) (unknown) (unknown) (no date) (unknown) (unknown) Blood Pressure 127/85 (units unknown) (unknown) (unknown) (no date) (unknown) (unknown) CHEST: Respiratory excursions symmetric, CTAB (units unknown) (unknown) (unknown) (no date) (unknown) (unknown) CV: RRR, no M/R/G (units unknown) (unknown) (unknown) (no date) (unknown) (unknown) Calcium 8.8 (units unknown) (unknown) (unknown) (no date) (unknown) (unknown) Carbon Dioxide 29 (units unknown) (unknown) (unknown) (no date) (unknown) (unknown) Chief complaint: Trauma (units unknown) (unknown) (unknown) (no date) (unknown) (unknown) Chloride 100 (units unknown) (unknown) (unknown) (no date) (unknown) (unknown) Chronic low back pain (units unknown) (unknown) (unknown) (no date) (unknown) (unknown) Comment: ETOH Abuse, SI (units unknown) (unknown) (unknown) (no date) (unknown) (unknown) Comment: Wound care (units unknown) (unknown) (unknown) (no date) (unknown) (unknown) Comment: (units unknown) (unknown) (unknown) (no date) (unknown) (unknown) Congestive heart failure (units unknown) (unknown) (unknown) (no date) (unknown) (unknown) Consult to Dietitian , Adult Routine (units unknown) (unknown) (unknown) (no date) (unknown) (unknown) Consult to Home Health Routine (units unknown) (unknown) (unknown) (no date) (unknown) (unknown) Consult to [facility] [place] - 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 Routine (units unknown) (unknown) (unknown) (no date) (unknown) (unknown) Consult to Occupational Therapy Evaluate + Treat (units unknown) (unknown) (unknown) (no date) (unknown) (unknown) Consult to Physical Therapy Evaluate + Treat (units unknown) (unknown) (unknown) (no date) (unknown) (unknown) Consults: (units unknown) (unknown) (unknown) (no date) (unknown) (unknown) Continue Flomax (units unknown) (unknown) (unknown) (no date) (unknown) (unknown) Continued (units unknown) (unknown) (unknown) (no date) (unknown) (unknown) Creatinine 0.60 L (units unknown) (unknown) (unknown) (no date) (unknown) (unknown) : 1970 Acct:[id number] (units unknown) (unknown) (unknown) (no date) (unknown) (unknown) Date Patient Seen: 01/14/23 (units unknown) (unknown) (unknown) (no date) (unknown) (unknown) Date of Service: 01/14/23 (units unknown) (unknown) (unknown) (no date) (unknown) (unknown) Date of admission: (units unknown) (unknown) (unknown) (no date) (unknown) (unknown) Deep Vein Thrombosis/Pulmonary Embolism Present on Admission: No (units unknown) (unknown) (unknown) (no date) (unknown) (unknown) Discharge Date/Time: 01/19/23 11:08 (units unknown) (unknown) (unknown) (no date) (unknown) (unknown) Discharge Date: 01/19/23 (units unknown) (unknown) (unknown) (no date) (unknown) (unknown) Discharge Diagnosis: (units unknown) (unknown) (unknown) (no date) (unknown) (unknown) Discharge Plan (units unknown) (unknown) (unknown) (no date) (unknown) (unknown) Discharge Providers (units unknown) (unknown) (unknown) (no date) (unknown) (unknown) Discharge Summary (units unknown) (unknown) (unknown) (no date) (unknown) (unknown) Discharge orders + Medications (units unknown) (unknown) (unknown) (no date) (unknown) (unknown) Discharge provider: (units unknown) (unknown) (unknown) (no date) (unknown) (unknown) Does have prior history of DT, symptoms today are consistent with withdrawal (units unknown) (unknown) (unknown) (no date) (unknown) (unknown) EXTR: warm, well perfused, no C/C/E, scattered bruising noted to his arms, (units unknown) (unknown) (unknown) (no date) (unknown) (unknown) Eos # (Auto) 300 (units unknown) (unknown) (unknown) (no date) (unknown) (unknown) Eos % (Auto) 5.2 H (units unknown) (unknown) (unknown) (no date) (unknown) (unknown) Essential hypertension (units unknown) (unknown) (unknown) (no date) (unknown) (unknown) Estimated GFR > 60 (units unknown) (unknown) (unknown) (no date) (unknown) (unknown) Exam Narrative: (units unknown) (unknown) (unknown) (no date) (unknown) (unknown) Exam (units unknown) (unknown) (unknown) (no date) (unknown) (unknown) Family History (Updated 01/15/23 @ 02:24 by SOMMER Chairez) (units unknown) (unknown) (unknown) (no date) (unknown) (unknown) Father Diabetes mellitus (units unknown) (unknown) (unknown) (no date) (unknown) (unknown) GEN: Alert and oriented x 3, no acute distress (units unknown) (unknown) (unknown) (no date) (unknown) (unknown) Glucose 139 H (units unknown) (unknown) (unknown) (no date) (unknown) (unknown) HEENT:NC, Face symmetric (units unknown) (unknown) (unknown) (no date) (unknown) (unknown) HLD, BPH, insulin-dependent diabetes and chronic low back pain tx with InterStim (units unknown) (unknown) (unknown) (no date) (unknown) (unknown) Hct 36.0 L (units unknown) (unknown) (unknown) (no date) (unknown) (unknown) Hgb 12.1 L (units unknown) (unknown) (unknown) (no date) (unknown) (unknown) History of Present Illness (units unknown) (unknown) (unknown) (no date) (unknown) (unknown) History of shoulder surgery (units unknown) (unknown) (unknown) (no date) (unknown) (unknown) Hospital Course (units unknown) (unknown) (unknown) (no date) (unknown) (unknown) Hospital Course: (units unknown) (unknown) (unknown) (no date) (unknown) (unknown) Hyperlipidemia due t o type 1 diabetes mellitus (units unknown) (unknown) (unknown) (no date) (unknown) (unknown) [address] [address] (units unknown) (unknown) (unknown) (no date) (unknown) (unknown) Laboratory Results - last 24 hr (units unknown) (unknown) (unknown) (no date) (unknown) (unknown) Labs (units unknown) (unknown) (unknown) (no date) (unknown) (unknown) Labs: (units unknown) (unknown) (unknown) (no date) (unknown) (unknown) 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 LFTs are presently improving.? (units unknown) (unknown) (unknown) (no date) (unknown) (unknown) Lymph # (Auto) 1500 (units unknown) (unknown) (unknown) (no date) (unknown) (unknown) Lymph % (Auto) 30.8 (units unknown) (unknown) (unknown) (no date) (unknown) (unknown) MCH 32.5 (units unknown) (unknown) (unknown) (no date) (unknown) (unknown) MCHC 33.6 (units unknown) (unknown) (unknown) (no date) (unknown) (unknown) MCV 96.6 (units unknown) (unknown) (unknown) (no date) (unknown) (unknown) [employer] Consult needed for:: Substance Abuse Assess (units unknown) (unknown) (unknown) (no date) (unknown) (unknown) Magnesium 1.4 L (units unknown) (unknown) (unknown) (no date) (unknown) (unknown) Luca Hamilton Gilma, DO (units unknown) (unknown) (unknown) (no date) (unknown) (unknown) Medical History (units unknown) (unknown) (unknown) (no date) (unknown) (unknown) Sj Romo is a 53-year-old male with known history of alcohol abuse, HTN, (units unknown) (unknown) (unknown) (no date) (unknown) (unknown) Mild, Will monitor. (units unknown) (unknown) (unknown) (no date) (unknown) (unknown) [place] # (Auto) 400 (units unknown) (unknown) (unknown) (no date) (unknown) (unknown) [place] % (Auto) 7.7 (units unknown) (unknown) (unknown) (no date) (unknown) (unknown) Mother Diabetes mellitus (units unknown) (unknown) (unknown) (no date) (unknown) (unknown) Multiple falls (units unknown) (unknown) (unknown) (no date) (unknown) (unknown) NEURO: Alert and oriented x 3, mild tremulousness. (units unknown) (unknown) (unknown) (no date) (unknown) (unknown) Narrative (units unknown) (unknown) (unknown) (no date) (unknown) (unknown) Narrative: (units unknown) (unknown) (unknown) (no date) (unknown) (unknown) Neut # (Auto) 2700 (units unknown) (unknown) (unknown) (no date) (unknown) (unknown) Neut % (Auto) 55.3 (units unknown) (unknown) (unknown) (no date) (unknown) (unknown) New (units unknown) (unknown) (unknown) (no date) (unknown) (unknown) Normocytic.? Likely secondary to alcohol-induced marrow suppression. (units unknown) (unknown) (unknown) (no date) (unknown) (unknown) Objective (units unknown) (unknown) (unknown) (no date) (unknown) (unknown) Oxygen Delivery Method Room Air (units unknown) (unknown) (unknown) (no date) (unknown) (unknown) Oxygen Flow Rate 0 0 (units unknown) (unknown) (unknown) (no date) (unknown) (unknown) Oxygen Flow Rate 0 (units unknown) (unknown) (unknown) (no date) (unknown) (unknown) Oxygen Flow Rate (units unknown) (unknown) (unknown) (no date) (unknown) (unknown) PFSH (units unknown) (unknown) (unknown) (no date) (unknown) (unknown) Patient Comments: (units unknown) (unknown) (unknown) (no date) (unknown) (unknown) Patient Disposition: Home (units unknown) (unknown) (unknown) (no date) (unknown) (unknown) Patient continues on Lantus and sliding scale. Certainly he could have insulin (units unknown) (unknown) (unknown) (no date) (unknown) (unknown) Patient has a healin g laceration to his right forehead, bruises to his arms, as (units unknown) (unknown) (unknown) (no date) (unknown) (unknown) Patient has a spinal stimulator in place as well as an intrathecal hydromorphone (units unknown) (unknown) (unknown) (no date) (unknown) (unknown) Patient has had multiple prior attempts from what his brother told me.? No plan (units unknown) (unknown) (unknown) (no date) (unknown) (unknown) Patient is on lisinopril and propranolol.? He did develop some hypotension (units unknown) (unknown) (unknown) (no date) (unknown) (unknown) Patient was noted to have an episode of AFib in the emergency department for (units unknown) (unknown) (unknown) (no date) (unknown) (unknown) Patient: Sj Romo MR#: [id number] (units unknown) (unknown) (unknown) (no date) (unknown) (unknown) Physician Instructions: Evaluate and Treat (units unknown) (unknown) (unknown) (no date) (unknown) (unknown) Physician Instructions: Evaluate and treat (units unknown) (unknown) (unknown) (no date) (unknown) (unknown) Plt Count 321 (units unknown) (unknown) (unknown) (no date) (unknown) (unknown) Potassium 3.9 (units unknown) (unknown) (unknown) (no date) (unknown) (unknown) Prescriptions: (units unknown) (unknown) (unknown) (no date) (unknown) (unknown) Provider (units unknown) (unknown) (unknown) (no date) (unknown) (unknown) Provider: Luca Dillard D.O. (units unknown) (unknown) (unknown) (no date) (unknown) (unknown) Pulse Oximetry 96 95 (units unknown) (unknown) (unknown) (no date) (unknown) (unknown) Pulse Oximetry (units unknown) (unknown) (unknown) (no date) (unknown) (unknown) Pulse Rate 60 60 68 (units unknown) (unknown) (unknown) (no date) (unknown) (unknown) Pulse Rate (units unknown) (unknown) (unknown) (no date) (unknown) (unknown) Quality (units unknown) (unknown) (unknown) (no date) (unknown) (unknown) RBC 3.73 L (units unknown) (unknown) (unknown) (no date) (unknown) (unknown) RDW 13.4 (units unknown) (unknown) (unknown) (no date) (unknown) (unknown) Reason For Exam: Arrange Home Health with [facility] (units unknown) (unknown) (unknown) (no date) (unknown) (unknown) Reason For Exam: DM, ETOH abuse (units unknown) (unknown) (unknown) (no date) (unknown) (unknown) Respiratory Rate 17 17 18 (units unknown) (unknown) (unknown) (no date) (unknown) (unknown) Respiratory Rate (units unknown) (unknown) (unknown) (no date) (unknown) (unknown) Rx Instructions: (units unknown) (unknown) (unknown) (no date) (unknown) (unknown) SKIN: warm and dry, no rash, large dark bruise noted round his gluteal folds and (units unknown) (unknown) (unknown) (no date) (unknown) (unknown) See Rx Instructions .ROUTE .COMPLEX Qty: 12 0RF (units unknown) (unknown) (unknown) (no date) (unknown) (unknown) See Rx Instructions .ROUTE .COMPLEX (units unknown) (unknown) (unknown) (no date) (unknown) (unknown) Signed By:<Electronically signed by Luca Dillard D.O.> (units unknown) (unknown) (unknown) (no date) (unknown) (unknown) Smoking Status: Milagro huang smoker (units unknown) (unknown) (unknown) (no date) (unknown) (unknown) Social History (Updated 01/15/23 @ 02:23 [facility] (units unknown) (unknown) (unknown) (no date) (unknown) (unknown) Sodium 137 (units unknown) (unknown) (unknown) (no date) (unknown) (unknown) Stand Alone Forms: Patient Portal/API, Stroke Signs + Symptoms (units unknown) (unknown) (unknown) (no date) (unknown) (unknown) Summary (units unknown) (unknown) (unknown) (no date) (unknown) (unknown) Surgical History (units unknown) (unknown) (unknown) (no date) (unknown) (unknown) TAKE 1 CAPSULE BY MOUTH DAILY (units unknown) (unknown) (unknown) (no date) (unknown) (unknown) TAKE 1 TABLET BY MOUTH EVERY EVENING (units unknown) (unknown) (unknown) (no date) (unknown) (unknown) TAKE 1 TABLET BY MOUTH EVERY MORNING (units unknown) (unknown) (unknown) (no date) (unknown) (unknown) Take 1 tablet by mouth twice a day (units unknown) (unknown) (unknown) (no date) (unknown) (unknown) Temperature 97.4 F L 97.3 F L (units unknown) (unknown) (unknown) (no date) (unknown) (unknown) Temperature (units unknown) (unknown) (unknown) (no date) (unknown) (unknown) Time Patient Seen: 22:42 (units unknown) (unknown) (unknown) (no date) (unknown) (unknown) Time Spent with Patient (units unknown) (unknown) (unknown) (no date) (unknown) (unknown) Time spent: Greater than 30 minutes (units unknown) (unknown) (unknown) (no date) (unknown) (unknown) VTE (units unknown) (unknown) (unknown) (no date) (unknown) (unknown) Visit Report/Discharge Packet (units unknown) (unknown) (unknown) (no date) (unknown) (unknown) Vital Signs (units unknown) (unknown) (unknown) (no date) (unknown) (unknown) WBC 4.9 (units unknown) (unknown) (unknown) (no date) (unknown) (unknown) When asked on admit regarding code status patient requested to be a full code, (units unknown) (unknown) (unknown) (no date) (unknown) (unknown) Will monitor. (units unknown) (unknown) (unknown) (no date) (unknown) (unknown) [Embedded Image Not Available] (units unknown) (unknown) (unknown) (no date) (unknown) (unknown) admit patient is unable to state where he is unable to recall how or when he (units unknown) (unknown) (unknown) (no date) (unknown) (unknown) alcohol intake: current (units unknown) (unknown) (unknown) (no date) (unknown) (unknown) alone. 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 PT and OT evaulated. (units unknown) (unknown) (unknown) (no date) (unknown) (unknown) and denied suicide ideation. patient is hemodynamically stable pleasant (units unknown) (unknown) (unknown) (no date) (unknown) (unknown) and this has not recurred. TTE was unremarkable. (units unknown) (unknown) (unknown) (no date) (unknown) (unknown) at this time but he notes he does not feel safe at home.? Would likely benefit (units unknown) (unknown) (unknown) (no date) (unknown) (unknown) atorvastatin 40 mg tablet (units unknown) (unknown) (unknown) (no date) (unknown) (unknown) attempted librium previously but BP dipped, but may have been due to medications (units unknown) (unknown) (unknown) (no date) (unknown) (unknown) attempts to transfer patient for detox, but was refused due to hyperglycemia, (units unknown) (unknown) (unknown) (no date) (unknown) (unknown) been called to the patient's home several times over the last few days, he was (units unknown) (unknown) (unknown) (no date) (unknown) (unknown) bruising left abdomen, upper abd, chest, scabbed abrasion to left anterior lower (units unknown) (unknown) (unknown) (no date) (unknown) (unknown) but no plan. Unable to get any accepting facility for inpatient psych treatment (units unknown) (unknown) (unknown) (no date) (unknown) (unknown) candidate for anticoagulation due to his alcohol dependence and frequent falls (units unknown) (unknown) (unknown) (no date) (unknown) (unknown) chlordiazepoxide HCl 25 mg Capsule (units unknown) (unknown) (unknown) (no date) (unknown) (unknown) continue CIWA protocol with prn benzos. (units unknown) (unknown) (unknown) (no date) (unknown) (unknown) continue prn repletion (units unknown) (unknown) (unknown) (no date) (unknown) (unknown) converses easily but is confused. WBC 4.3, H+H 12.3/36.9, initial glucose 344, (units unknown) (unknown) (unknown) (no date) (unknown) (unknown) couple of weeks for refill. (units unknown) (unknown) (unknown) (no date) (unknown) (unknown) covered in a variety of multiple injuries in varying degrees healing, a scabbed (units unknown) (unknown) (unknown) (no date) (unknown) (unknown) dependence.? A bit unclear on when he was diagnosed and there is not any (units unknown) (unknown) (unknown) (no date) (unknown) (unknown) dependent diabetes secondary to pancreatic insufficiency related to his alcohol (units unknown) (unknown) (unknown) (no date) (unknown) (unknown) dextroamphetamine-am p hetamine 20 mg tablet (units unknown) (unknown) (unknown) (no date) (unknown) (unknown) did not answer.? Patient was seen and evaluated by [facility] in the ED made multiple (units unknown) (unknown) (unknown) (no date) (unknown) (unknown) due to pain pump. Patient discharged home on libirum taper. (units unknown) (unknown) (unknown) (no date) (unknown) (unknown) elevated QTC on EKG, and encephalopathy. Unable to obtain accurate HPI, ROS due (units unknown) (unknown) (unknown) (no date) (unknown) (unknown) extremities well.? I s conversant but confused.? Patient states he drinks at (units unknown) (unknown) (unknown) (no date) (unknown) (unknown) extremity, significant deep bruising to lower coccyx area. Patient denies (units unknown) (unknown) (unknown) (no date) (unknown) (unknown) fall, head injury, atrial fibrillation, encephalopathy, ETOH abuse/intoxication, (units unknown) (unknown) (unknown) (no date) (unknown) (unknown) fingersticks, slidin g scale, and Lantus. (units unknown) (unknown) (unknown) (no date) (unknown) (unknown) for RVR. Now increased back to 25 TID. With shakiness thought of increasing but (units unknown) (unknown) (unknown) (no date) (unknown) (unknown) found down this evening on the bathroom floor with broken glass perhaps broken (units unknown) (unknown) (unknown) (no date) (unknown) (unknown) from a program that does dual diagnosis.? [facility] met with the patient today and (units unknown) (unknown) (unknown) (no date) (unknown) (unknown) furosemide 20 mg tablet (units unknown) (unknown) (unknown) (no date) (unknown) (unknown) head CT negative, CT of abdomen/pelvis multiple remote left rib fractures, left (units unknown) (unknown) (unknown) (no date) (unknown) (unknown) himself potentially in [place] (units unknown) (unknown) (unknown) (no date) (unknown) (unknown) household members: none (units unknown) (unknown) (unknown) (no date) (unknown) (unknown) hyperglycemia. (units unknown) (unknown) (unknown) (no date) (unknown) (unknown) information with regard to his diabetes in the medical record.? We will continue (units unknown) (unknown) (unknown) (no date) (unknown) (unknown) inpatient transfer but this is hightly unlikely despite patient and care (units unknown) (unknown) (unknown) (no date) (unknown) (unknown) insulin glargine [Lantus Solostar U-100 Insulin] 100 unit/mL (3 mL) insulin (units unknown) (unknown) (unknown) (no date) (unknown) (unknown) insulin lispro [Humalog KwikPen Insulin] 100 unit/mL insulin pen (units unknown) (unknown) (unknown) (no date) (unknown) (unknown) kill himself when asked why he did not answer'? When asked if he has a plan he (units unknown) (unknown) (unknown) (no date) (unknown) (unknown) least a 5th of Vodka daily, denies tobacco or illicit.? Patient is unable to (units unknown) (unknown) (unknown) (no date) (unknown) (unknown) losartan 100 mg tablet (units unknown) (unknown) (unknown) (no date) (unknown) (unknown) management searching multiple facilities. Complicated due to patient's chronic (units unknown) (unknown) (unknown) (no date) (unknown) (unknown) medical conditions including stimulator and hydromorphone pump. (units unknown) (unknown) (unknown) (no date) (unknown) (unknown) mirror and blood at the scene. Patient is confused, but redirectable. During (units unknown) (unknown) (unknown) (no date) (unknown) (unknown) negative, tox screen is positive for opiates and benzos, initial ETOH 308, (units unknown) (unknown) (unknown) (no date) (unknown) (unknown) obtain these injurie s in the events that led him to the hospital today. He is (units unknown) (unknown) (unknown) (no date) (unknown) (unknown) pain, no shortness o f breath, no GI or urinary symptoms.? He is moving all his (units unknown) (unknown) (unknown) (no date) (unknown) (unknown) pen (units unknown) (unknown) (unknown) (no date) (unknown) (unknown) propranolol 20 mg tablet (units unknown) (unknown) (unknown) (no date) (unknown) (unknown) pump.? He reports th e pump was filled every 2 months and he is not due for a (units unknown) (unknown) (unknown) (no date) (unknown) (unknown) recall what his medications are he believes he is on insulins but he has no idea (units unknown) (unknown) (unknown) (no date) (unknown) (unknown) repeat 254, AST 87, ALT 88, alk-phos 144, UA negative, lactate negative, lipase (units unknown) (unknown) (unknown) (no date) (unknown) (unknown) repeat 91. COVID negative. EKG sinus rhythm rate 72 QTC 499, without ST or T (units unknown) (unknown) (unknown) (no date) (unknown) (unknown) right forearm.? Thes e all have occurred when he has been intoxicated and home (units unknown) (unknown) (unknown) (no date) (unknown) (unknown) sacrum (units unknown) (unknown) (unknown) (no date) (unknown) (unknown) scapula fracture, an d L1/L2 transverse process fracture. Patient admitted for (units unknown) (unknown) (unknown) (no date) (unknown) (unknown) still. (units unknown) (unknown) (unknown) (no date) (unknown) (unknown) stimulator in back lumbar + Dilaudid pain pump in abdomen.? EMS had apparently (units unknown) (unknown) (unknown) (no date) (unknown) (unknown) superficial lee noted to his right forearm (units unknown) (unknown) (unknown) (no date) (unknown) (unknown) superficial laceration over his right forehead, small burn right forearm, (units unknown) (unknown) (unknown) (no date) (unknown) (unknown) symptoms are still fairly mild and will keep same dose today. (units unknown) (unknown) (unknown) (no date) (unknown) (unknown) tamsulosin 0.4 mg capsule (units unknown) (unknown) (unknown) (no date) (unknown) (unknown) then 25mg once daily for 2 days then stop (units unknown) (unknown) (unknown) (no date) (unknown) (unknown) to encephalopathy. E D reported patient had an episode of atrial fibrillation (units unknown) (unknown) (unknown) (no date) (unknown) (unknown) to kill himself to the medics and when asked in ED he ' stated he did want to (units unknown) (unknown) (unknown) (no date) (unknown) (unknown) wave changes. Chest x-ray negative, C-spine negative, pelvic x-ray negative, (units unknown) (unknown) (unknown) (no date) (unknown) (unknown) well as his gluteal area/sacrum.? He also has some superficial lee to his (units unknown) (unknown) (unknown) (no date) (unknown) (unknown) when or if he is taken his medication. He did make statements that he wanted (units unknown) (unknown) (unknown) (no date) (unknown) (unknown) which he was given a dose of metoprolol.? CHADS2 Vasc score is 2, consistent (units unknown) (unknown) (unknown) (no date) (unknown) (unknown) which metoprolol was given and quickly resolved. (units unknown) (unknown) (unknown) (no date) (unknown) (unknown) will work on [facility].? He would benefit most from inpatient to (units unknown) (unknown) (unknown) (no date) (unknown) (unknown) with a 2.2% stroke risk annually.? Unfortunately, he would be a very poor (units unknown) (unknown) (unknown) (no date) (unknown) (unknown) yesterday, with librium noted above will continue to hold today. (units unknown) (unknown) Social History date description facility 2023 00:00 Never smoked tobacco (finding) [facility] 2023-01-15 00:00 Never smoked tobacco (finding) [facility] Vital Signs date measurement value units [...]
[2023-02-21 16:52] LABS: ACETAMINOPHEN < 10 ug/mL (10-30); ALBUMIN 4.1 g/dL (3.2-5.5); ALBUMIN/GLOBULIN RATIO 1.1 (1.0-2.2); ALKALINE PHOSPHATASE 98 IU/L (42-121); ALT ALANINE AMINOTRANSFERASE 36 IU/L (10-60); AST ASPARTATE AMINOTRANSFERASE 38 IU/L (10-42); BILIRUBIN,TOTAL 0.4 mg/dL (0.2-1.0); BUN - BLOOD UREA NITROGEN 8 mg/dL (6-20); CALCIUM 8.8 mg/dL (8.5-10.3); CARBON DIOXIDE - CO2 28 mmol/L (21-32); CHLORIDE 96 mmol/L (101-111); CREATININE 0.8 mg/dL (0.6-1.2); ETOH - ETHANOL 284.6 mg/dL; GFR - MDRD 100 (>89); GLUCOSE 302 mg/dL (70-100); LIPASE 29 U/L (22-51); POTASSIUM 4.2 mmol/L (3.5-5.0); SALICYLATE < 6.0 mg/dL; SODIUM 142 mmol/L (135-145); TOTAL PROTEIN 7.7 g/dL (6.7-8.2)
[2023-02-21] MEDS ORDERED: LORazepam 2 MG/ML VIAL IVP STA (17:02)
[2023-02-21 17:11] LABS: MUDS CUTOFF CONCENTRATIONS CUTOFF CONC BELOW:
[2023-02-21 17:12] LABS: BILIRUBIN,URINE NEGATIVE (NEGATIVE); GLUCOSE, URINE (UA) 500 mg/dL (NEGATIVE); KETONES,URINE (UA) 15 mg/dL (NEGATIVE); LEUKOCYTE ESTERASE, URINE NEGATIVE (NEGATIVE); NITRITE,URINE NEGATIVE (NEGATIVE); OCCULT BLOOD,URINE NEGATIVE (NEGATIVE); PROTEIN,URINE TRACE mg/dL (NEGATIVE); UROBILINOGEN,URINE 0.2 (NORMAL) E.U./dL (NORMAL)
[2023-02-21 17:13] LABS: CLARITY,URINE CLEAR (CLEAR)
[2023-02-21 17:25] LABS: AMPHETAMINE SCREEN,URINE POSITIVE (NEGATIVE); BARBITURATE SCREEN,UR NEGATIVE (NEGATIVE); BENZODIAZEPINES SCREEN, URINE POSITIVE (NEGATIVE); COCAINE SCREEN URINE NEGATIVE (NEGATIVE); METHADONE SCREEN, URINE NEGATIVE (NEGATIVE); METHAMPHETAMINES SCREEN, URINE NEGATIVE (NEGATIVE); OPIATE SCREEN, URINE POSITIVE (NEGATIVE); OXYCODONE SCREEN, URINE NEGATIVE (NEGATIVE); PROPOXYPHENE SCREEN, URINE NEGATIVE (NEGATIVE); THC CANNABINOID SCREEN, URINE NEGATIVE (NEGATIVE); TRICYCLIC ANTIDEPRESSANT,URINE NEGATIVE (NEGATIVE)
--- NOTE | 2023-02-21 17:46 | XRAY Report ---
PROCEDURE: Chest 1 View X-Ray INDICATIONS: tachycardia TECHNIQUE: One view of the chest was acquired. COMPARISON: 02/07/2023 and 01/03/2023. FINDINGS: Surgical changes and devices: Possible cord stimulator leads are seen projecting at the level of mid thoracic spine. Lungs and pleura: No pleural effusions or pneumothorax. Lungs are clear. Mediastinum: Mediastinal contours appear normal. Heart size is normal. Bones and chest wall: No suspicious bony lesions. Overlying soft tissues appear unremarkable. IMPRESSION: No acute cardiopulmonary process. Reviewed by: Luis Holland MD on 02/21/2023 4:44 PM AKDT Approved by: Luis Holland MD on 02/21/2023 4:44 PM AKDT Station ID: [id number]
[2023-02-21] MEDS ORDERED: diltiaZEM INJ 5 MG/ML VIAL IVP STA (18:14)
[2023-02-21] MEDS: PROPRANOLOL 10 MG TABLET PO SCH ×2 (18:33→21:09)
[2023-02-21] MEDS ORDERED: ACETAMINOPHEN 325 MG TABLET PO STA (20:56)
[2023-02-21] MEDS ORDERED: traZODone 50 MG TABLET PO SCH (22:00)
[2023-02-22] MEDS ORDERED: ONDANSETRON 4 MG/2 ML VIAL IVP STA (00:33)
[2023-02-22] MEDS ORDERED: traZODone 50 MG TABLET PO SCH (07:57)
[2023-02-22] MEDS ORDERED: ONDANSETRON ODT 4 MG TABLET TL STA (08:04)
[2023-02-22] MEDS: PROPRANOLOL 10 MG TABLET PO SCH (08:35)
[2023-02-22] MEDS ORDERED: LOSARTAN 50 MG TABLET PO SCH (09:00)
[2023-02-22] MEDS ORDERED: PANTOPRAZOLE 40 MG TABLET PO SCH (09:00)
[2023-02-22] MEDS ORDERED: FUROSEMIDE 20 MG TABLET PO SCH (09:00)
[2023-02-22] MEDS ORDERED: ARIPiprazole 5 MG TABLET PO SCH (09:00)
[2023-02-22] MEDS ORDERED: metFORMIN 500 MG TABLET PO SCH (09:00)
[2023-02-22] MEDS ORDERED: ESCITALOPRAM 10 MG TABLET PO SCH (09:00)
[2023-02-22] MEDS ORDERED: DROPERIDOL 5 MG/2 ML VIAL IM STA (10:17)
--- NOTE | 2023-02-22 12:09 | ED Physician Documentation ---
ED Addendum - Addendum Addendum: 02/22/23 12:06 The patient is awake alert conversant this morning. He was having some nausea with emesis x1. He had been given Zofran earlier without any improvement. We can give some Inapsine and see if that works better. The patient had a DCR interview. There is concern for potential for self-harm but at this point he is willing to be hospitalized so is voluntary at this point. Defers to social work. Social work Crys is in this morning and will submit the patient's paperwork to facilities. She is starting with [facility]. Initial impression from them is they are concerned about his QT interval on his EKG yesterday. We will repeat it today and see if its improved. His electrolytes have been okay on recent blood work yesterday. If his QT interval is still elevated, we may need to restart an IV and give fluids and electrolytes. He does not appear clinically that dehydrated. He has been taking oral fluids. At this point he has been pleasant and cooperative. His nausea is decreased with the above medication. Placement is still ongoing.
[2023-02-22] MEDS ORDERED: LACTATED RINGERS 1,000 ML IV STA (12:52)
[2023-02-22] MEDS ORDERED: MAGNESIUM SULFATE 2 GRAM 2 GM/50 ML BAG IV ONE (12:52)
[2023-02-22 19:56] VITALS: BP 140/95
--- NOTE | 2023-02-22 19:56 | ED Physician Documentation ---
ED Addendum - Addendum Addendum: 02/22/23 19:54 53-year-old male was brought into the emergency department last night after becoming drunk and making threatening statements that he was going to harm himself. This patient does have a history of alcohol abuse. He also has a known indwelling intrathecal pump/Dilaudid for chronic back pain. Please see my note from yesterday as well as the daytime attending note. Over the last 24 hours the patient has clinically stabilized and metabolized all his alcohol. He has been hemodynamically stable. Over the course of the day he has had no thoughts of suicide. He had agreed to go voluntarily inpatient for suicidal thoughts though he had no active plan. Unfortunately because of the indwelling intrathecal pump no psychiatric hospital would evaluate or treat him. Subsequently DCR was reinvolved and they did dispatch a crisis responder by the name of Katie. Reportedly he did speak to the patient on the phone. I have spoken with poly's DCR Barb and she reports that Katie will follow-up with the patient tomorrow. I went to the bedside and spoke to Sj. He reports that he is feeling better. He no longer has thoughts of suicide. He does desire to be discharged home. He states he would like to take a taxi home. He clinically does not appear to have any signs of withdrawal. Given that he contracts for safety and desires to be discharged home I will discharge him. DCR has reiterated that he does not meet the criteria for involuntary detainment. Discharged home in stable condition. Diagnosis: alcohol abuse. Suicidal thoughts
== END 2023-02-22 20:23 | disposition home or self-care (01) ==
LOC: EDUNIT# → ED 16:02
DX: T14.91XA Suicide attempt, initial encounter (principal); F10.10 Alcohol abuse, uncomplicated; I10 Essential (primary) hypertension; E11.9 Type 2 diabetes mellitus without complications; Z79.84 Long term (current) use of oral hypoglycemic drugs
CPT/HCPCS: 36415; 71045; 80053; 80306; 80307; 81003; 83690; 84443; 85025; 93005; 96361; 96365; 96366; 96367; 96368; 96375; 96376; 99285; A9270; G0480; J2060; J3411; J7040; J7120; Q0162; 80320; 80329; 81001; 87086

== ENCOUNTER 2023-03-13 13:46 | Outpatient (CLI) | payer MEDICARE | END 2023-03-13 13:47 | disposition critical access hospital (66) | LOC: EMS 13:46 | DX: R45.851 Suicidal ideations (principal); F10.129 Alcohol abuse with intoxication, unspecified | CPT/HCPCS: A0425; A0429 ==

== ENCOUNTER 2023-03-13 14:03 | Emergency (ER) | payer MEDICAID, MEDICARE ==
--- NOTE | 2023-03-13 14:13 | ED Physician Documentation ---
History of Present Illness - Stated complaint Stated Complaint: MHE - History obtained from History obtained from: Patient, EMS - Additonal information Additional information: Patient comes to the emergency department with chief complaint of suicidal ideation. The patient has been drinking heavily today and does not offer much information other than that he still feeling suicidal and that the only thing he took was alcohol. He specifically denies taking good drugs, medications, or making any other attempt to harm himself. He cannot say how much alcohol he drank. The patient states that he has not had any specific incident that has triggered him to feel more depressed. He has a longstanding history of alcoholism and suicidal ideation and was seen the last couple of months here in our ED for the same. The patient does not offer any further information. Medics state that his brother called EMS because he was concerned for the patient's safety and although the patient agreed to come voluntarily, the police still filled out involuntary transport paperwork. No other complaints at this time. PD PAST MEDICAL HISTORY - Past Medical History Cardiovascular: Hypertension, High cholesterol Respiratory: Sleep apnea Neuro: Other Endocrine/Autoimmune: Type 2 diabetes GI: GERD, Chronic constipation, Other : Other HEENT: None Psych: Depression, Bipolar disorder Musculoskeletal: Osteoarthritis, Chronic back pain Derm: Other - Past Surgical History Past Surgical History: No General: Appendectomy, Other Ortho: Carpal Tunnel surgery, Spine surgery, Other /CHA[employer]AD [employer]ER: Other Derm: Skin grafts - Present Medications Home Medications: Ambulatory Orders Medication Instructions Recorded Confirmed Atorvastatin Calcium 40 mg PO HS 01/04/23 02/08/23 Dextroamphetamine/Amphetamine 20 mg PO BID 01/04/23 02/08/23 [Adderall 20 mg Tablet] Furosemide [Lasix] 20 mg PO DAILY 01/04/23 02/08/23 Hydromorphone HCl/Pf [Dilaudid] 9 mg IT DAILY 01/04/23 02/08/23 Losartan Potassium [Cozaar] 100 mg PO DAILY 01/04/23 02/08/23 Omeprazole 40 mg PO BIDAC 01/04/23 02/08/23 Propranolol HCl 20 mg PO BID 01/04/23 02/08/23 Thiamine [Vitamin B-1] 100 mg PO DAILY #30 tab 01/11/23 02/08/23 Tamsulosin [Flomax] 0.4 mg PO QPM 01/21/23 02/08/23 ARIPiprazole [Aripiprazole] 10 mg PO DAILY 02/07/23 02/08/23 Escitalopram [Lexapro] 10 mg PO DAILY 02/07/23 02/08/23 Metformin HCl 1,000 mg PO BIDWM 02/07/23 02/08/23 glipiZIDE [Glucotrol] 5 mg PO BID 02/07/23 02/08/23 traZODone [Desyrel] 50 mg PO QPM 02/07/23 02/08/23 Naloxone HCl Nasal [Narcan Nasal] 1 spr CHARITY ONCE PRN 02/08/23 02/08/23 - Allergies Allergies/Adverse Reactions: Allergies Allergy/AdvReac Type Severity Reaction Status Date / Time penicillin G Allergy Severe hearing Verified 02/21/23 16:14 loss left ear povidone-iodine Allergy Severe Respiratory Verified 02/21/23 16:14 [From Betadine] soap * [From Betadine] Allergy Severe Respiratory Verified 02/21/23 16:14 iodine Allergy Unknown Verified 02/21/23 16:14 nortriptyline Allergy Unknown Verified 02/21/23 16:14 shellfish derived Allergy skin Verified 02/21/23 16:14 burning Sulfa (Sulfonamide Allergy Unknown Verified 02/21/23 16:14 Antibiotics) sterile banadage Allergy Unknown Uncoded 02/07/23 06:41 steroids Allergy Unknown Uncoded 02/07/23 06:41 - Social History Does the pt smoke?: No Smoking Status: Never smoker Does the pt drink ETOH?: Yes Does the pt have substance abuse?: No - Immunizations Immunizations are current?: Yes - POLST Patient has POLST: No POLST Status: Full Code PD ED PE NORMAL - Vitals Vital signs reviewed: Yes - General General: No acute distress, Well developed/nourished, Other (Awake and grossly oriented. The patient appears slowed and slurred and intoxicated.) - HEENT HEENT: Atraumatic, PERRL, EOMI, Moist mucous membranes - Neck Neck: Supple, no meningeal sign - Cardiac Cardiac: No murmur, Strong equal pulses, Other (Tachycardic rate regular rhythm.) - Respiratory Respiratory: No respiratory distress, Clear bilaterally - Abdomen Abdomen: Soft, Non tender, Non distended - Derm Derm: Normal color, Warm and dry, No rash - Extremities Extremities: No deformity, No edema - Neuro Neuro: Other (The patient exhibits slowed responses and slurred speech and is drowsy. He smells of alcohol. He is moving all 4 extremities.) - Psych Psych: Other (Blunted affect, depressed mood.) Results - Vitals Vitals: Vital Signs - 24 hr 03/13/23 03/13/23 14:50 16:45 Temperature 36.1 C L Heart Rate 114 H Respiratory 20 Rate Blood Pressure 155/106 H O2 Saturation 99 Oxygen O2 Source Room air - Labs Labs: Laboratory Tests 03/13/23 03/13/23 03/13/23 14:36 14:36 14:36 WBC 5.4 RBC 3.76 L Hgb 12.1 L Hct 36.2 L MCV 96.3 H MCH 32.2 H MCHC 33.4 RDW 13.0 Plt Count 428 MPV 8.8 Neut # (Auto) 2.7 Lymph # (Auto) 2.0 Desha # (Auto) 0.5 Eos # (Auto) 0.1 Baso # (Auto) 0.1 Absolute Nucleated RBC 0.00 Nucleated RBC % 0.0 Sodium 138 Potassium 3.9 Chloride 95 L Carbon Dioxide 28 Anion Gap 15.0 H BUN 6 Creatinine 0.5 L Estimated GFR (MDRD) 173 Glucose 180 H Calcium 8.7 Magnesium 1.5 L Total Bilirubin 0.5 AST 36 ALT 29 Alkaline Phosphatase 108 Total Creatine Kinase 152 Total Protein 7.8 Albumin 4.0 Globulin 3.8 Albumin/Globulin Ratio 1.1 Lipase 22 TSH 2.73 Salicylates < 6.0 Acetaminophen < 10 L Ethyl Alcohol 324.2 SARS-CoV-2 (PCR) 03/13/23 14:42 WBC RBC Hgb Hct MCV MCH MCHC RDW Plt Count MPV Neut # (Auto) Lymph # (Auto) Desha # (Auto) Eos # (Auto) Baso # (Auto) Absolute Nucleated RBC Nucleated RBC % Sodium Potassium Chloride Carbon Dioxide Anion Gap BUN Creatinine Estimated GFR (MDRD) Glucose Calcium Magnesium Total Bilirubin AST ALT Alkaline Phosphatase Total Creatine Kinase Total Protein Albumin Globulin Albumin/Globulin Ratio Lipase TSH Salicylates Acetaminophen Ethyl Alcohol SARS-CoV-2 (PCR) NOT DETECTED PD Medical Decision Making - ED course Complexity details: reviewed old records, reviewed results, re-evaluated patient, considered differential, d/w patient ED course: Patient was worked up with labs including ER abdominal panel, CBC, alcohol level, and aspirin and Tylenol levels. Labs were largely unremarkable except alcohol level was found to be 324. Patient was observed in the emergency department Pending sobriety. Around 1730, he did begin to report feeling anxious and having symptoms of withdrawal. His CIWA score was 23 and he was given phenobarbital 260 mg IV. I did receive calls from both NIKO Longoria and counselor Kacey from [facility]. They were both calling to provide further information on the patient. Kacey stated that she found the patient intoxicated at home and stated that he was saying "I want to ". The patient had not made any obvious attempt to kill himself and did not express a plan. The patient had just been admitted to [facility] last week but left after 5 days and immediately went back to drinking. I have stated to both of them the patient will be reevaluated when sober. In the past, he has been impossible to place for mental health reasons, secondary to his insulin pump, so we will need to reevaluate his mental state before embarking on this effort again. At this point in time, the patient is continuing to sober up and will be signed out to Dr. Jarocho Shin at change of shift, pending final disposition. Departure - Departure Clinical Impression: Depression with suicidal ideation Alcohol intoxication Qualifiers: Complication of substance-induced condition: uncomplicated Qualified Code(s): F10.920 - Alcohol use, unspecified with intoxication, uncomplicated
[2023-03-13 14:44] LABS: BASOPHILS # (AUTO) 0.1 10^3/uL (0.0-0.1); BASOPHILS % (AUTO) 1.5 %; EOSINOPHILS # (AUTO) 0.1 10^3/uL (0.0-0.7); EOSINOPHILS % (AUTO) 1.9 %; HCT - HEMATOCRIT 36.2 % (42.0-52.0); HGB - HEMOGLOBIN 12.1 g/dL (14.0-18.0); LYMPHOCYTES % (AUTO) 36.8 %; MEAN CORPUSCULAR HEMOGLOBIN 32.2 pg (27.0-31.0); MEAN CORPUSCULAR HGB CONC 33.4 g/dL (32.0-36.0); MEAN CORPUSCULAR VOLUME 96.3 fL (80.0-94.0); MEAN PLATELET VOLUME 8.8 fL (7.4-11.4); MONOCYTES # (AUTO) 0.5 10^3/uL (0.0-1.0); MONOCYTES % (AUTO) 9.3 %; NEUTROPHILS # (AUTO) 2.7 10^3/uL (1.5-6.6); NEUTROPHILS % (AUTO) 50.3 %; PLT - PLATELET COUNT 428 10^3/uL (130-450); RED BLOOD COUNT 3.76 10^6/uL (4.70-6.10); WHITE BLOOD COUNT 5.4 x10^3/uL (4.8-10.8)
[2023-03-13 15:08] LABS: ACETAMINOPHEN < 10 ug/mL (10-30); ALBUMIN/GLOBULIN RATIO 1.1 (1.0-2.2); ALKALINE PHOSPHATASE 108 IU/L (42-121); ALT ALANINE AMINOTRANSFERASE 29 IU/L (10-60); AST ASPARTATE AMINOTRANSFERASE 36 IU/L (10-42); BILIRUBIN,TOTAL 0.5 mg/dL (0.2-1.0); BUN - BLOOD UREA NITROGEN 6 mg/dL (6-20); CALCIUM 8.7 mg/dL (8.5-10.3); CARBON DIOXIDE - CO2 28 mmol/L (21-32); CHLORIDE 95 mmol/L (101-111); CK- CREATINE KINASE 152 IU/L (22-269); CREATININE 0.5 mg/dL (0.6-1.2); ETOH - ETHANOL 324.2 mg/dL; GFR - MDRD 173 (>89); GLUCOSE 180 mg/dL (70-100); LIPASE 22 U/L (22-51); MAGNESIUM 1.5 mg/dL (1.7-2.8); POTASSIUM 3.9 mmol/L (3.5-5.0); SALICYLATE < 6.0 mg/dL; SODIUM 138 mmol/L (135-145); TOTAL PROTEIN 7.8 g/dL (6.7-8.2)
[2023-03-13 17:42] LABS: MUDS CUTOFF CONCENTRATIONS CUTOFF CONC BELOW:
[2023-03-13] MEDS ORDERED: PHENobarbital 65 MG/ML VIAL IV STA (17:43)
[2023-03-13 17:49] LABS: BILIRUBIN,URINE NEGATIVE (NEGATIVE); GLUCOSE, URINE (UA) NEGATIVE (NEGATIVE); KETONES,URINE (UA) 15 mg/dL (NEGATIVE); LEUKOCYTE ESTERASE, URINE NEGATIVE (NEGATIVE); NITRITE,URINE NEGATIVE (NEGATIVE); OCCULT BLOOD,URINE NEGATIVE (NEGATIVE); PH,URINE 6.5 PH (5.0-7.5); PROTEIN,URINE NEGATIVE (NEGATIVE); UROBILINOGEN,URINE 0.2 (NORMAL) E.U./dL (NORMAL)
[2023-03-13 18:04] LABS: CLARITY,URINE CLEAR (CLEAR)
[2023-03-13 18:05] LABS: AMPHETAMINE SCREEN,URINE POSITIVE (NEGATIVE); BARBITURATE SCREEN,UR POSITIVE (NEGATIVE); BENZODIAZEPINES SCREEN, URINE NEGATIVE (NEGATIVE); COCAINE SCREEN URINE NEGATIVE (NEGATIVE); METHADONE SCREEN, URINE NEGATIVE (NEGATIVE); METHAMPHETAMINES SCREEN, URINE NEGATIVE (NEGATIVE); OPIATE SCREEN, URINE POSITIVE (NEGATIVE); THC CANNABINOID SCREEN, URINE NEGATIVE (NEGATIVE); TRICYCLIC ANTIDEPRESSANT,URINE NEGATIVE (NEGATIVE)
[2023-03-13 18:06] LABS: OXYCODONE SCREEN, URINE NEGATIVE (NEGATIVE); PROPOXYPHENE SCREEN, URINE NEGATIVE (NEGATIVE)
[2023-03-13] MEDS ORDERED: ACETAMINOPHEN 325 MG TABLET PO STA (19:25)
[2023-03-13] MEDS ORDERED: chlordiazePOXIDE 25 MG CAPSULE PO STA (19:27)
[2023-03-13] MEDS ORDERED: ONDANSETRON 4 MG/2 ML VIAL IVP STA (19:54)
--- NOTE | 2023-03-13 21:57 | ED Physician Documentation ---
ED Addendum - Addendum Addendum: 03/13/23 21:56 No change during my shift, patient will be signed out to the oncoming emergency department physician for reevaluation when sober.
[2023-03-14] MEDS ORDERED: PHENobarbital 65 MG/ML VIAL IV STA ×3 (01:08→12:44)
[2023-03-14] MEDS ORDERED: ONDANSETRON 4 MG/2 ML VIAL IVP STA ×3 (06:38→12:44)
[2023-03-14] MEDS ORDERED: PHENobarbital 65 MG/ML VIAL ONE (06:56)
--- NOTE | 2023-03-14 06:58 | ED Physician Documentation ---
ED Addendum - Addendum Addendum: 03/14/23 06:57 CHRISTY. Patient endorsed to Dr. Ceja awaiting DCR eval.
--- NOTE | 2023-03-14 08:43 | ED Physician Documentation ---
ED Addendum - Addendum Addendum: 03/14/23 08:41 The patient is resting comfortably this morning. He is a little bit anxious. We are checking his blood sugar regularly as he is diabetic. He had not eaten as much so he can continue with his Lantus but will regulate the Humalog. The [facility] is here to evaluate the patient and will talk with him.
[2023-03-14] MEDS ORDERED: KETOROLAC 15 MG/ML VIAL IVP STA ×2 (09:09→12:45)
[2023-03-14] MEDS: ARIPiprazole 5 MG TABLET PO SCH (13:54)
[2023-03-14] MEDS: FUROSEMIDE 20 MG TABLET PO SCH (13:54)
[2023-03-14] MEDS ORDERED: LORazepam 2 MG/ML VIAL IVP STA (14:07)
[2023-03-14] MEDS: chlordiazePOXIDE 25 MG CAPSULE PO SCH ×2 (14:51→21:57)
[2023-03-14] MEDS: diazePAM 5 MG TABLET PO PRN (19:41)
[2023-03-14] MEDS: metFORMIN 500 MG TABLET PO SCH (20:59)
[2023-03-14] MEDS ORDERED: PHENobarbitaL 32.4 MG TABLET PO SCH (21:00)
[2023-03-14] MEDS ORDERED: traZODone 50 MG TABLET PO SCH (21:00)
[2023-03-14] MEDS: PROPRANOLOL 10 MG TABLET PO SCH (21:00)
[2023-03-15] MEDS: diazePAM 5 MG TABLET PO PRN (03:31)
[2023-03-15] MEDS: chlordiazePOXIDE 25 MG CAPSULE PO SCH ×2 (05:30→14:22)
[2023-03-15] MEDS ORDERED: ESCITALOPRAM 10 MG TABLET PO SCH (09:00)
[2023-03-15] MEDS ORDERED: PANTOPRAZOLE 40 MG TABLET PO SCH (09:00)
[2023-03-15] MEDS ORDERED: diphenhydrAMINE 25 MG CAPSULE PO STA (09:18)
[2023-03-15] MEDS: metFORMIN 500 MG TABLET PO SCH (09:27)
[2023-03-15] MEDS: ARIPiprazole 5 MG TABLET PO SCH (09:27)
[2023-03-15] MEDS: FUROSEMIDE 20 MG TABLET PO SCH (09:27)
[2023-03-15] MEDS: PROPRANOLOL 10 MG TABLET PO SCH (09:27)
--- NOTE | 2023-03-15 13:11 | ED Physician Documentation ---
ED Addendum - Addendum Addendum: 03/15/23 13:10 He is detained to [facility] by the [facility] where a bed is available and was accepted there. They requested a repeat COVID test. Cobras are completed. He is stable for transport. Diagnosis: 1. Alcohol intoxication 2. Suicidal ideation
[2023-03-15 14:21] VITALS: BP 115/64
== END 2023-03-15 19:12 ==
LOC: EDUNIT# → ED 14:03
DX: R45.851 Suicidal ideations (principal); F32.A Depression, unspecified; F10.920 Alcohol use, unspecified with intoxication, uncomplicated; I10 Essential (primary) hypertension; E11.9 Type 2 diabetes mellitus without complications; Z79.84 Long term (current) use of oral hypoglycemic drugs; Z20.822 Contact with and (suspected) exposure to COVID-19
CPT/HCPCS: 36415; 80053; 80306; 80307; 81003; 82550; 83690; 83735; 84443; 85025; 87635; 96374; 96375; 96376; 99285; A9270; G0480; J2060; 80320; 80329; 81001; 87086

== ENCOUNTER 2023-06-20 15:33 | Outpatient (CLI) | payer MEDICARE | END 2023-06-20 15:34 | disposition critical access hospital (66) | LOC: EMS 15:33 | DX: Z04.6 Encounter for general psychiatric examination, requested by authority (principal); R45.851 Suicidal ideations; R46.89 Other symptoms and signs involving appearance and behavior; Z78.1 Physical restraint status | CPT/HCPCS: A0425; A0429 ==

== ENCOUNTER 2023-06-20 15:48 | Emergency (ER) | payer MEDICARE ==
[2023-06-20] MEDS ORDERED: OLANZapine 10 MG VIAL IM STA (15:58)
--- NOTE | 2023-06-20 16:03 | ED Physician Documentation ---
Restraint [id number] - Immediate Situation Face to Face Evaluation Date: 06/20/23 Face to Face Evaluation Time: 16:02 Restraint Classification: Violent, physical, chemical Restraint Type: Locked extremity - Patient's Reaction & Behaviors Safety: Non-compliant Verbal: Demanding, Screaming/Yelling, Swearing Harm: Potential harm to self, Potential harm to others, Verbalizes intent to harm Physical: Aggressive behavior, Fighting restraints, Kicking Other: Attempting removal of medically necessary device(s) - Behavioral Condition Attitude: Other (violent) Behavior: Uncooperative, Belligerent, Agitated Orientation: Person, Place, Situation Mood: Angry - Evaluation System status changes from initial ED note: none Pertinent History/Illicit Drugs/Medications/Results: etoh - Plan Need to Continue or Terminate Violent or Chemical Restraint: continue
--- NOTE | 2023-06-20 16:05 | ED Physician Documentation ---
PD HPI MHE - Stated complaint Stated Complaint: SI - Chief complaint Chief Complaint: MHE - History obtained from History obtained from: Patient, EMS - History of Present Illness Primary symptom: Suicidal ideation, Aggressive behavior Contributing factors: Substance abuse - ETOH - Additional information Additional information: Patient is a 53-year-old male with a longstanding history of alcoholism who was brought into the emergency department by EMS after [place] [employer] placed him on an involuntary treatment hold. Reportedly he drank vodka this morning and threatened to kill himself, law enforcement responded this morning but he stated he was not going to kill himself so they let him go. Later this afternoon he apparently was apparently trying to break down his neighbors door and at that point they decided to place him on an involuntary hold for suicidal ideation. The patient was given to EMS to transport here. No police came with the patient. Apparently the threat to kill himself was going to be him shooting himself or going into the [place] to hang himself. The patient does state that if he knew where his gun was he would have killed himself today. Patient is angry, aggressive and trying to hit and kick and bite staff upon arrival. Patient has a longstanding history of multiple MARINO's in the past and longstanding history of alcoholism. 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 Derm: Skin grafts - Present Medications Home Medications: Ambulatory Orders Medication Instructions Recorded Confirmed Atorvastatin Calcium 40 mg PO HS 01/04/23 06/09/23 Dextroamphetamine/Amphetamine 20 mg PO BID 01/04/23 06/09/23 [Adderall 20 mg Tablet] Furosemide [Lasix] 20 mg PO DAILY 01/04/23 06/09/23 Hydromorphone HCl/Pf [Dilaudid] 9 mg IT DAILY 01/04/23 06/09/23 Losartan Potassium [Cozaar] 100 mg PO DAILY 01/04/23 06/09/23 Omeprazole 40 mg PO BIDAC 01/04/23 06/09/23 Propranolol HCl 20 mg PO BID 01/04/23 06/09/23 Thiamine [Vitamin B-1] 100 mg PO DAILY #30 tab 01/11/23 06/09/23 Tamsulosin [Flomax] 0.4 mg PO QPM 01/21/23 06/09/23 Escitalopram [Lexapro] 10 mg PO DAILY 02/07/23 06/09/23 Metformin HCl 1,000 mg PO BIDWM 02/07/23 06/09/23 Docusate Sodium 100Mg Capsule 100 mg PO DAILY 06/09/23 06/09/23 [Colace 100Mg Capsule] Tamsulosin HCl [Flomax] 0.4 mg PO DAILY 06/09/23 06/09/23 cloNIDine [Catapres] 1 - 2 tab PO HS 06/09/23 06/09/23 - Allergies Allergies/Adverse Reactions: Allergies Allergy/AdvReac Type Severity Reaction Status Date / Time penicillin G Allergy Severe hearing Verified 06/20/23 16:07 loss left ear povidone-iodine Allergy Severe Respiratory Verified 06/20/23 16:07 [From Betadine] soap * [From Betadine] Allergy Severe Respiratory Verified 06/20/23 16:07 adhesive Allergy Unknown Verified 06/20/23 16:07 Corticosteroids Allergy Unknown Verified 06/20/23 16:07 (Glucocorticoids) iodine Allergy Unknown Verified 06/20/23 16:07 nortriptyline Allergy Unknown Verified 06/20/23 16:07 shellfish derived Allergy skin Verified 06/20/23 16:07 burning Sulfa (Sulfonamide Allergy Unknown Verified 06/20/23 16:07 Antibiotics) - Social History Does the pt smoke?: No Smoking Status: Never smoker Does the pt drink ETOH?: Yes Does the pt have substance abuse?: No - Immunizations Immunizations are current?: Yes - POLST Patient has POLST: No POLST Status: Full Code PD ED PE NORMAL - Vitals Vital signs reviewed: Yes - General General: Other (angry, swearing, screaming, kicking and biting) - HEENT HEENT: PERRL, Moist mucous membranes - Neck Neck: Supple, no meningeal sign - Cardiac Cardiac: RRR - Respiratory Respiratory: No respiratory distress, Clear bilaterally - Abdomen Abdomen: Soft, Non tender, Non distended - Back Back: No spinal TTP - Derm Derm: Warm and dry - Extremities Extremities: No deformity - Neuro Neuro: Other (alert, uncooperative) Results - Vitals Vitals: Vital Signs - 24 hr 06/20/23 06/20/23 06/20/23 16:00 16:19 16:37 Temperature 36.7 C Heart Rate 121 H 122 H 96 Respiratory 18 22 15 Rate Blood Pressure 125/92 H 122/87 H O2 Saturation 97 94 95 If not protocol 3 : Oxygen Flow, liters/minute 06/20/23 06/20/23 06/20/23 17:03 17:27 17:31 Temperature Heart Rate 83 81 86 Respiratory 18 19 17 Rate Blood Pressure 81/51 L 76/49 L O2 Saturation 100 100 If not protocol 6 6 6 : Oxygen Flow, liters/minute 06/20/23 06/20/23 06/20/23 18:11 18:38 19:05 Temperature Heart Rate 77 74 75 Respiratory 20 18 18 Rate Blood Pressure 75/52 L 87/54 L 88/66 L O2 Saturation 100 100 100 If not protocol 6 6 : Oxygen Flow, liters/minute 06/20/23 06/20/23 06/20/23 19:25 19:45 20:26 Temperature Heart Rate 69 63 87 Respiratory 19 19 19 Rate Blood Pressure 96/62 92/58 L 117/76 O2 Saturation 100 100 97 If not protocol 5 5 5 : Oxygen Flow, liters/minute 06/20/23 06/20/23 21:11 22:05 Temperature Heart Rate 68 61 Respiratory 18 19 Rate Blood Pressure 95/69 115/81 H O2 Saturation 97 99 If not protocol 5 5 : Oxygen Flow, liters/minute Oxygen O2 Source Nasal cannula Oxygen Flow Rate 5 - Labs Labs: Laboratory Tests 06/20/23 06/20/23 06/20/23 16:13 16:41 16:41 WBC 5.4 RBC 4.11 L Hgb 13.1 L Hct 38.7 L MCV 94.2 H MCH 31.9 H MCHC 33.9 RDW 13.5 Plt Count 194 MPV 9.0 Neut # (Auto) 2.5 Lymph # (Auto) 2.0 Coffee # (Auto) 0.8 Eos # (Auto) 0.1 Baso # (Auto) 0.0 Absolute Nucleated RBC 0.00 Nucleated RBC % 0.0 Sodium 136 Potassium 3.1 L Chloride 95 L Carbon Dioxide 27 Anion Gap 14.0 H BUN 24 H Creatinine 1.2 Estimated GFR (MDRD) 63 L Glucose 223 H Calcium 9.4 Magnesium 1.8 Total Bilirubin 0.5 AST 57 H ALT 34 Alkaline Phosphatase 87 Total Creatine Kinase 385 H Total Protein 6.8 Albumin 4.3 Globulin 2.5 Albumin/Globulin Ratio 1.7 Lipase 20 TSH 2.61 Urine Color Urine Clarity Urine pH Ur Specific [place] Urine Protein Urine Glucose (UA) Urine Ketones Urine Occult Blood Urine Nitrite Urine Bilirubin Urine Urobilinogen Ur Leukocyte Esterase Ur Microscopic Review Urine Culture Comments Salicylates < 1.5 Urine Opiates Screen Ur Oxycodone Screen Urine Methadone Screen Ur Propoxyphene Screen Acetaminophen 0.2 Ur Barbiturates Screen Ur Tricyclics Screen Ur Phencyclidine Scrn Ur Amphetamine Screen U Methamphetamines Scrn U Benzodiazepines Scrn Urine Cocaine Screen U Cannabinoids Screen Ethyl Alcohol 321.7 SARS-CoV-2 (PCR) NOT DETECTED 06/20/23 20:11 WBC RBC Hgb Hct MCV MCH MCHC RDW Plt Count MPV Neut # (Auto) Lymph # (Auto) Coffee # (Auto) Eos # (Auto) Baso # (Auto) Absolute Nucleated RBC Nucleated RBC % Sodium Potassium Chloride Carbon Dioxide Anion Gap BUN Creatinine Estimated GFR (MDRD) Glucose Calcium Magnesium Total Bilirubin AST ALT Alkaline Phosphatase Total Creatine Kinase Total Protein Albumin Globulin Albumin/Globulin Ratio Lipase TSH Urine Color YELLOW Urine Clarity CLEAR Urine pH 5.5 Ur Specific [place] <=1.005 Urine Protein NEGATIVE Urine Glucose (UA) 250 H Urine Ketones NEGATIVE Urine Occult Blood NEGATIVE Urine Nitrite NEGATIVE Urine Bilirubin NEGATIVE Urine Urobilinogen 0.2 (NORMAL) Ur Leukocyte Esterase NEGATIVE Ur Microscopic Review NOT INDICATED Urine Culture Comments NOT INDICATED Salicylates Urine Opiates Screen POSITIVE H Ur Oxycodone Screen NEGATIVE Urine Methadone Screen NEGATIVE Ur Propoxyphene Screen NEGATIVE Acetaminophen Ur Barbiturates Screen NEGATIVE Ur Tricyclics Screen NEGATIVE Ur Phencyclidine Scrn NEGATIVE Ur Amphetamine Screen POSITIVE H U Methamphetamines Scrn NEGATIVE U Benzodiazepines Scrn NEGATIVE Urine Cocaine Screen NEGATIVE U Cannabinoids Screen NEGATIVE Ethyl Alcohol SARS-CoV-2 (PCR) PD Medical Decision Making - ED course Complexity details: reviewed results, re-evaluated patient, considered differential, d/w patient ED course: 53-year-old male on an MARINO, intoxicated from alcohol. Making suicidal statements. He was four-point restraint and locked restraints. He was also chemically restrained with Zyprexa and droperidol. He slept in the emergency department and was removed from four-point restraints. When he is sober, the DCR will need to be contacted for evaluation. Patient will be signed out to Dr. Bailey. This document was made in part using voice recognition software. While efforts are made to proofread this document, sound alike and grammatical errors may occur. Departure - Departure Clinical Impression: Suicidal ideation Alcohol intoxication Qualifiers: Complication of substance-induced condition: uncomplicated Qualified Code(s): F10.920 - Alcohol use, unspecified with intoxication, uncomplicated Condition: Stable Forms: PCP List
[2023-06-20] MEDS ORDERED: DROPERIDOL 5 MG/2 ML VIAL IM STA (16:24)
[2023-06-20 16:44] LABS: BASOPHILS % (AUTO) 0.2 %; EOSINOPHILS # (AUTO) 0.1 10^3/uL (0.0-0.7); EOSINOPHILS % (AUTO) 0.9 %; HCT - HEMATOCRIT 38.7 % (42.0-52.0); HGB - HEMOGLOBIN 13.1 g/dL (14.0-18.0); LYMPHOCYTES % (AUTO) 37.4 %; MEAN CORPUSCULAR HEMOGLOBIN 31.9 pg (27.0-31.0); MEAN CORPUSCULAR HGB CONC 33.9 g/dL (32.0-36.0); MEAN CORPUSCULAR VOLUME 94.2 fL (80.0-94.0); MONOCYTES # (AUTO) 0.8 10^3/uL (0.0-1.0); MONOCYTES % (AUTO) 14.5 %; NEUTROPHILS # (AUTO) 2.5 10^3/uL (1.5-6.6); NEUTROPHILS % (AUTO) 46.6 %; PLT - PLATELET COUNT 194 10^3/uL (130-450); RED BLOOD COUNT 4.11 10^6/uL (4.70-6.10); RED CELL DISTRIBUTION WIDTH 13.5 % (12.0-15.0); WHITE BLOOD COUNT 5.4 x10^3/uL (4.8-10.8)
--- NOTE | 2023-06-20 16:45 | ED Physician Documentation ---
Restraint [id number] - Immediate Situation Face to Face Evaluation Date: 06/20/23 Face to Face Evaluation Time: 16:44 Restraint Classification: Violent, physical, chemical Restraint Type: Locked extremity, Chemical - Patient's Reaction & Behaviors Safety: Physically safe, Non-compliant Verbal: Demanding, Screaming/Yelling, Swearing Harm: Potential harm to self, Potential harm to others, Verbalizes intent to harm Physical: Aggressive behavior, Fighting restraints, Punching, Kicking Other: Attempting removal of medically necessary device(s) - Behavioral Condition Attitude: Other (angry) Behavior: Uncooperative, Belligerent, Agitated Orientation: Person, Place Mood: Angry - Evaluation System status changes from initial ED note: none Pertinent History/Illicit Drugs/Medications/Results: etoh - Plan Need to Continue or Terminate Violent or Chemical Restraint: continue
[2023-06-20 17:04] LABS: ACETAMINOPHEN 0.2 ug/mL; ALBUMIN 4.3 g/dL (3.2-5.5); CK- CREATINE KINASE 385 IU/L (30-223); ETOH - ETHANOL 321.7 mg/dL; LIPASE 20 U/L (11-82); MAGNESIUM 1.8 mg/dL (1.7-2.3)
[2023-06-20 17:05] LABS: ALBUMIN/GLOBULIN RATIO 1.7 (1.0-2.2); ALKALINE PHOSPHATASE 87 IU/L (42-121); AST ASPARTATE AMINOTRANSFERASE 57 IU/L (10-42); BILIRUBIN,TOTAL 0.5 mg/dL (0.2-1.0); BUN - BLOOD UREA NITROGEN 24 mg/dL (6-20); CALCIUM 9.4 mg/dL (8.5-10.3); CARBON DIOXIDE - CO2 27 mmol/L (21-32); CHLORIDE 95 mmol/L (101-111); CREATININE 1.2 mg/dL (0.6-1.3); GFR - MDRD 63 (>89); GLUCOSE 223 mg/dL (74-104); POTASSIUM 3.1 mmol/L (3.5-4.5); SODIUM 136 mmol/L (135-145); TOTAL PROTEIN 6.8 g/dL (6.4-8.9)
[2023-06-20] MEDS ORDERED: SODIUM CHLORIDE 0.9% 1,000 ML IV STA ×2 (17:05→17:36)
[2023-06-20 17:13] LABS: THYROID STIMULATING HORMONE 2.61 uIU/mL (0.34-5.60)
[2023-06-20 17:22] LABS: ALT ALANINE AMINOTRANSFERASE 34 IU/L (10-60)
[2023-06-20 17:23] LABS: SALICYLATE < 1.5 mg/dL
[2023-06-20 20:25] LABS: MUDS CUTOFF CONCENTRATIONS CUTOFF CONC BELOW:
[2023-06-20 20:32] LABS: BILIRUBIN,URINE NEGATIVE (NEGATIVE); CLARITY,URINE CLEAR (CLEAR); GLUCOSE, URINE (UA) 250 mg/dL (NEGATIVE); KETONES,URINE (UA) NEGATIVE (NEGATIVE); LEUKOCYTE ESTERASE, URINE NEGATIVE (NEGATIVE); NITRITE,URINE NEGATIVE (NEGATIVE); OCCULT BLOOD,URINE NEGATIVE (NEGATIVE); PH,URINE 5.5 PH (5.0-7.5); PROTEIN,URINE NEGATIVE (NEGATIVE); UROBILINOGEN,URINE 0.2 (NORMAL) E.U./dL (NORMAL)
[2023-06-20 20:49] LABS: COCAINE SCREEN URINE NEGATIVE (NEGATIVE); METHAMPHETAMINES SCREEN, URINE NEGATIVE (NEGATIVE); OPIATE SCREEN, URINE POSITIVE (NEGATIVE); THC CANNABINOID SCREEN, URINE NEGATIVE (NEGATIVE)
[2023-06-20 20:50] LABS: AMPHETAMINE SCREEN,URINE POSITIVE (NEGATIVE); BARBITURATE SCREEN,UR NEGATIVE (NEGATIVE); BENZODIAZEPINES SCREEN, URINE NEGATIVE (NEGATIVE); METHADONE SCREEN, URINE NEGATIVE (NEGATIVE); OXYCODONE SCREEN, URINE NEGATIVE (NEGATIVE); PROPOXYPHENE SCREEN, URINE NEGATIVE (NEGATIVE); TRICYCLIC ANTIDEPRESSANT,URINE NEGATIVE (NEGATIVE)
[2023-06-21] MEDS ORDERED: LORazepam 2 MG/ML VIAL IVP STA ×4 (06:12→20:49)
--- NOTE | 2023-06-21 06:14 | ED Physician Documentation ---
ED Addendum - Addendum Addendum: 06/21/23 06:13 lorazepam ordered by me for tremulousness, not for chemical restraint
[2023-06-21] MEDS ORDERED: PHENobarbital 65 MG/ML VIAL IV STA (12:01)
[2023-06-21] MEDS ORDERED: PHENobarbital 65 MG/ML VIAL ONE (12:29)
[2023-06-21] MEDS ORDERED: POTASSIUM CHLORIDE 20 MEQ TABLET PO STA (14:23)
--- NOTE | 2023-06-21 14:31 | ED Physician Documentation ---
ED Addendum - Addendum Addendum: 06/21/23 14:29 The patient was signed out to me at change of shift, pending social work evaluation after DCR declared patient to be voluntary. Patient had presented with both suicidal and homicidal ideation while intoxicated. Patient was evaluated by social work and was accepted in transfer to [facility]. However, transfer was to be held until patient got a repeat EKG, a potassium supplement, and had a potassium 3.5 or greater. At this point in time, these things have been ordered, and the plan will be for patient to transfer once the above criteria have been met. Final impression: 1. Suicidal ideation 2. Homicidal ideation 3. Alcohol abuse with acute intoxication Disposition: Transfer to psychiatric inpatient facility in serious condition.
[2023-06-21 16:17] LABS: POTASSIUM 3.3 mmol/L (3.5-4.5)
[2023-06-21] MEDS ORDERED: POTASSIUM BICARB 25 MEQ TABLET PO STA (16:37)
[2023-06-21] MEDS ORDERED: POTASSIUM CHLOR 10 MEQ/100 ML 10 MEQ/100 ML BAG IV STA (16:37)
[2023-06-21] MEDS ORDERED: MAGNESIUM SULFATE 2 GRAM 2 GM/50 ML BAG IV ONE (16:50)
--- NOTE | 2023-06-21 16:50 | ED Physician Documentation ---
ED Addendum - Addendum Addendum: 06/21/23 16:50 Signout to me at 3 PM shift change [address] Dr. Caban. Briefly he has been accepted by [facility], but they would like his potassium to be in the normal range and his EKG to be normalized. Presume the problem with his EKG is the long QT and that was persistent on second EKG just prior to shift change. His potassium was rechecked and 3.3. We will continue to replete potassium and also give him some magnesium which should help with the long QT. 06/21/23 17:37 Excepted to [facility], as long as he is getting more potassium which he is. Cobras are completed and he is stable for transport. Disposition: Transfer to psychiatric facility Condition: Stable
[2023-06-21 18:54] VITALS: O2SAT 96
[2023-06-21 21:16] VITALS: BP 152/102
== END 2023-06-21 21:18 ==
LOC: EDUNIT# → ED 15:48
DX: F10.920 Alcohol use, unspecified with intoxication, uncomplicated (principal); R45.851 Suicidal ideations; R45.850 Homicidal ideations; I10 Essential (primary) hypertension; E11.42 Type 2 diabetes mellitus with diabetic polyneuropathy; Z79.84 Long term (current) use of oral hypoglycemic drugs; Z78.1 Physical restraint status
CPT/HCPCS: 36415; 80048; 80053; 80306; 80307; 81003; 82550; 83690; 83735; 84443; 85025; 87635; 93005; 96365; 96367; 96372; 96375; 96376; 99284; 99285; A9270; G0480; J2060; 80320; 80329; 81001; 87086

== ENCOUNTER 2023-08-15 09:24 | Outpatient (CLI) | payer MEDICARE ==
[2023-08-15 09:58] LABS: CREATININE 0.7 mg/dL (0.6-1.3)
[2023-08-15] MEDS ORDERED: iohexoL-300 100 ML VIAL IVP ONE (10:23)
--- NOTE | 2023-08-15 14:09 | CT Report ---
PROCEDURE: IVP INDICATIONS: HEMATURIA CONTRAST: 140ml Omni 300 TECHNIQUE: After the administration of intravenous contrast, 5 mm thick sections acquired from the diaphragms to the symphysis. 5 mm thick coronal and sagittal reformats were acquired. For radiation dose reducti on, the following was used: automated exposure control, adjustment of mA and/or kV according to foster ent size. COMPARISON: None. FINDINGS: Image quality: Excellent. Urinary system: Both kidneys are normal in size. No hydronephrosis or nephrolithiasis on pre-contras t images. No solid masses or complex cysts which require follow up. The opacified renal calyces and ureters appear normal, without filling defect. The ureters are minimally opacified. Bladder wall thi ckness is normal, accounting for underdistention. No calcified bladder stones. No filling defect with in the opacified bladder. OTHER Lung bases and heart: Unremarkable. Liver: Hepatic steatosis. Gallbladder and biliary tree: Possible sludge layering within the gallbladder. No gallstones or gallb ladder wall thickening. Spleen: No splenomegaly. Pancreas: No pancreatic ductal dilation. Adrenals: No adrenal nodule. Bowel and peritoneum: No bowel distension. No pathologic free fluid. Diverticulosis without evidence of diverticulitis. Abdominal Lymph nodes: No central or retroperitoneal adenopathy. Vessels: Unremarkable. Reproductive organs: Unremarkable. Pelvic Lymph nodes: Unremarkable. Bones: No aggressive osseous abnormality. Spinal cord is stimulator in place. Degenerative changes of the spine. Other: Left lower abdominal wall subcutaneous device. IMPRESSION: No cause for patient's symptoms is identified. No renal stones or hydronephrosis. The opacified porti ons of the collecting systems are within normal limits. Reviewed by: Abel White MD on 08/15/2023 2:06 PM PST Approved by: Abel White MD on 08/15/2023 2:06 PM PST Station ID: [id number]
== END 2023-08-15 09:25 | disposition home or self-care (01) ==
LOC: LAB 09:24
PROVIDERS: ATTEND Urology
DX: R31.9 Hematuria, unspecified (principal)
CPT/HCPCS: 36415; 74178; 82565; Q9967

== ENCOUNTER 2023-09-28 06:40 | Day surgery (SDC) | payer MEDICARE ==
[2023-09-28] MEDS ORDERED: CLINDAMYCIN 900 MG/50 ML 900 MG/50 ML BAG IV ONE (06:55)
[2023-09-28] MEDS ORDERED: LACTATED RINGERS 1,000 ML IV ONE ×2 (07:05→11:29)
[2023-09-28] MEDS ORDERED: PROPOFOL 200 MG/20 ML VIAL IVP ONE (08:07)
[2023-09-28] MEDS ORDERED: fentaNYL 100 MCG/2 ML VIAL ONE (08:08)
[2023-09-28] MEDS ORDERED: KETAMINE 200 MG/20 ML VIAL ONE (08:08)
[2023-09-28] MEDS ORDERED: DEXAMETHASONE 4 MG/ML VIAL ONE (08:09)
[2023-09-28] MEDS ORDERED: ONDANSETRON 4 MG/2 ML VIAL ONE ×2 (08:09→10:54)
[2023-09-28] MEDS ORDERED: DEXMEDETOMIDINE 200 MCG/2 ML VIAL ONE (08:09)
[2023-09-28] MEDS ORDERED: ROCURONIUM 50 MG/5 ML VIAL ONE (08:09)
--- NOTE | 2023-09-28 08:27 | ANESTHESIA ---
Pre-Anesthesia VS, & Labs - Diagnosis VENTRAL HERNIA - Procedure VENTRAL HERNIA REPAIR Vital Signs: Temp Pulse Resp BP Pulse Ox O2 Flow Rate 36.5 C 105 H 12 144/91 H 95 09/28/23 07:05 09/28/23 07:05 09/28/23 07:05 09/28/23 07:05 09/28/23 07:05 Height: 5 ft 11 in Weight (kg): 94.8 kg Body Mass Index: 29.1 BMI Classification: Overweight - Lab Results Current Lab Results: Laboratory Tests 09/28/23 07:44: POC Whole Bld Glucose 246 H Home Medications and Allergies Home Medications: Ambulatory Orders ARIPiprazole [Aripiprazole] 15 mg PO DAILY 09/22/23 Doxepin [SINEquan] 10 mg PO QPM 09/22/23 EPINEPHrine [Epinephrine] 0.3 mg IJ PRN PRN 09/22/23 Gabapentin [Neurontin] 600 mg PO BID 09/22/23 Insulin Glargine [Lantus Solostar] 20 unit SUBQ QPM 09/22/23 Insulin Lispro [Insulin Lispro Glenn Kwikpen] 0 - 12 unit SUBQ ACHS 09/22/23 Magnesium Oxide 400 mg PO BID 09/22/23 Naloxone HCl 4 mg NS PRN PRN 09/22/23 Ondansetron Odt [Zofran Odt] 4 mg TL Q6H PRN 09/22/23 hydrOXYzine HCL [Hydroxyzine HCl] 25 mg PO BID PRN 09/22/23 Atorvastatin Calcium 20 mg PO HS 01/04/23 Hydromorphone HCl/Pf [Dilaudid] 9 mg IT DAILY 01/04/23 Losartan Potassium [Cozaar] 100 mg PO DAILY 01/04/23 Tamsulosin [Flomax] 0.4 mg PO QPM 01/21/23 Escitalopram [Lexapro] 20 mg PO DAILY 02/07/23 ARIPiprazole [Aripiprazole] 15 mg PO DAILY 09/22/23 Doxepin [SINEquan] 10 mg PO QPM 09/22/23 EPINEPHrine [Epinephrine] 0.3 mg IJ PRN PRN 09/22/23 Gabapentin [Neurontin] 600 mg PO BID 09/22/23 Insulin Glargine [Lantus Solostar] 20 unit SUBQ QPM 09/22/23 Insulin Lispro [Insulin Lispro Glenn Kwikpen] 0 - 12 unit SUBQ ACHS 09/22/23 Magnesium Oxide 400 mg PO BID 09/22/23 Naloxone HCl 4 mg NS PRN PRN 09/22/23 Ondansetron Odt [Zofran Odt] 4 mg TL Q6H PRN 09/22/23 hydrOXYzine HCL [Hydroxyzine HCl] 25 mg PO BID PRN 09/22/23 Allergies/Adverse Reactions: Allergies Allergy/AdvReac Type Severity Reaction Status Date / Time penicillin G Allergy Severe hearing Verified 06/20/23 16:07 loss left ear povidone-iodine Allergy Severe Respiratory Verified 06/20/23 16:07 [From Betadine] soap * [From Betadine] Allergy Severe Respiratory Verified 06/20/23 16:07 adhesive Allergy Unknown Verified 06/20/23 16:07 iodine Allergy Unknown Verified 06/20/23 16:07 shellfish derived Allergy skin Verified 06/20/23 16:07 burning Anes History & Medical History - Anesthetic History Anesthesia Complications: reports: No previous complications Family history of Anesthesia Complications: Denies Family history of Malignant Hyperthermia: Denies - Medical History Cardiovascular: reports: Hypertension (DENIES CHEST PAIN), High cholesterol Pulmonary: reports: Shortness of breath (WITH STAIRS, BEGAN ABOUT A YEAR AGO; CTAB SAT 95%), Sleep apnea (DENIES) Gastrointestinal: reports: GERD (DOESNT SLEEP ELEVATED ON PILLOWS, FEELS OK THIS AM), Chronic constipation, Other Urinary: reports: Benign prostate hypertrophy Neuro: reports: Peripheral neuropathy (HANDS AND FEET), Other Musculoskeletal: reports: Osteoarthritis, Chronic back pain (HAS A DILAUDID PAIN PUMP AND A SPINAL CORD STIMULATOR) Endocrine/Autoimmune: reports: Type 2 diabetes, HyPOthyroidism Blood Disorders: reports: None Skin: reports: Other Smoking Status: Never smoker Psychosocial: reports: Alcohol (FOR ALCOHOL AND SUICIDAL IDEATION; NO ETOH NOW, FEELING BETTER) History of Cancer?: No - Surgical History General: reports: Appendectomy, Other Gynecologic: Orthopedic: reports: Carpal Tunnel surgery, Spine surgery, Other Dermatologic: reports: Skin grafts Results - EKG Results EKG Comparison: Reviewed EKG Exam General: Alert, Oriented x3, Cooperative, No acute distress Dental: WNL Mouth Openin Fingerbreadth Neck Mobility: Normal Mallampati classification: II Thyromental Distance: 4-6 cm Respiratory: Lungs clear Cardiovascular: Regular rate Mental/Cognitive Status: Alert/Oriented X3 Plan Anesthesia Type: General Consent for Procedure(s) Verified and Reviewed: Yes Code Status: Attempt Resuscitation ASA classification: 3-Severe systemic disease Is this case an emergency?: No
--- NOTE | 2023-09-28 08:31 | HISTORY & PHYSICAL EXAMINATION ---
Chief Complaint - Chief Complaint Chief Complaint: painful recurrent hernia History of Present Illness - History Obtained From Records Reviewed: yes History obtained from: pt Exam Limitations: none - History of Present Illness HPI Comment/Other: painful recurrent incisional hernia. getting worse History - Past Medical History Cardiovascular: reports: Hypertension, High cholesterol Respiratory: reports: Shortness of breath, Sleep apnea Neuro: reports: Peripheral neuropathy, Other Endocrine/Autoimmune: reports: Type 2 diabetes, HyPOthyroidism GI: reports: GERD, Chronic constipation, Other : reports: Benign prostate hypertrophy HEENT: reports: None Psych: reports: Depression, Bipolar disorder, Post traumatic stress disorder Musculoskeletal: reports: Osteoarthritis, Chronic back pain Derm: reports: Other MRSA Hx?: No - Past Surgical History General: reports: Appendectomy, Other Ortho: reports: Carpal Tunnel surgery, Spine surgery, 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 Father age 90. Alive, has diabetes, leukemia, Alzheimer's. Lives in [place]. He does have siblings but he is not in contact with him. He has children but is not in contact with him Living Situation: Alone Social History Notes: Disabled due to chronic low back pain.Has been drinking since the age of 14. He denies cocaine, heroin, LSD or speed. He does not smoke and never did. 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 - Substance History Use: Uses substance without health or social issues: NONE - POLST Patient has POLST: No POLST Status: Full Code Meds/Allgy - Home Medications Home Medications: Ambulatory Orders Medication Instructions Recorded Confirmed Atorvastatin Calcium 20 mg PO HS 01/04/23 09/28/23 Hydromorphone HCl/Pf [Dilaudid] 9 mg IT DAILY 01/04/23 09/28/23 Losartan Potassium [Cozaar] 100 mg PO DAILY 01/04/23 09/28/23 Tamsulosin [Flomax] 0.4 mg PO QPM 01/21/23 09/28/23 Escitalopram [Lexapro] 20 mg PO DAILY 02/07/23 09/28/23 ARIPiprazole [Aripiprazole] 15 mg PO DAILY 09/22/23 09/28/23 Doxepin [SINEquan] 10 mg PO QPM 09/22/23 09/28/23 EPINEPHrine [Epinephrine] 0.3 mg IJ PRN PRN 09/22/23 09/28/23 Gabapentin [Neurontin] 600 mg PO BID 09/22/23 09/28/23 Insulin Glargine [Lantus Solostar] 20 unit SUBQ QPM 09/22/23 09/28/23 Insulin Lispro [Insulin Lispro 0 - 12 unit SUBQ ACHS 09/22/23 09/28/23 Glenn Kwikpen] Magnesium Oxide 400 mg PO BID 09/22/23 09/28/23 Naloxone HCl 4 mg NS PRN PRN 09/22/23 09/28/23 Ondansetron Odt [Zofran Odt] 4 mg TL Q6H PRN 09/22/23 09/28/23 hydrOXYzine HCL [Hydroxyzine HCl] 25 mg PO BID PRN 09/22/23 09/28/23 - Allergies Allergies/Adverse Reactions: Allergies Allergy/AdvReac Type Severity Reaction Status Date / Time penicillin G Allergy Severe hearing Verified 06/20/23 16:07 loss left ear povidone-iodine Allergy Severe Respiratory Verified 06/20/23 16:07 [From Betadine] soap * [From Betadine] Allergy Severe Respiratory Verified 06/20/23 16:07 adhesive Allergy Unknown Verified 06/20/23 16:07 iodine Allergy Unknown Verified 06/20/23 16:07 shellfish derived Allergy skin Verified 06/20/23 16:07 burning Review of Systems - Other Findings Other Findings: 10 pt ros as above otherwise unremarkable Exam - Vital Signs Vital Signs: Vital Signs x48h Temp Pulse Resp BP Pulse Ox 09/28/23 07:05 36.5 C 105 H 12 144/91 H 95 - Physical Exam General Appearance: positive: No acute distress, Alert Eyes Bilateral: positive: PERRL, EOMI, No scleral icterus Neck: positive: No JVD Respiratory: positive: No respiratory distress Cardiovascular: positive: Regular rate & rhythm Abdomen: positive: Other (tender recurrent hernia bulge cephalad of the umbilicus) Neurologic/Psychiatric: positive: Oriented x3 Conclusion/Plan - Problem List (1) Recurrent incisional hernia Conclusion/Plan: plan open repair with mesh. parq held and consent obtained
[2023-09-28] MEDS ORDERED: ACETAMINOPHEN 1,000 MG/100 ML 1,000 MG/100 ML BAG IV ONE (08:51)
[2023-09-28] MEDS ORDERED: METOCLOPRAMIDE 10 MG/2 ML VIAL IVP PRN (08:52)
[2023-09-28] MEDS ORDERED: INSULIN REGULAR HUMAN 300 UNIT/3 ML VIAL SUBQ ONE ×2 (08:52)
[2023-09-28] MEDS ORDERED: ONDANSETRON 4 MG/2 ML VIAL IVP PRN ×2 (08:52→10:32)
[2023-09-28] MEDS ORDERED: ATROPINE ABBOJECT 1 MG/10 ML SYRINGE IVP PRN (08:52)
[2023-09-28] MEDS ORDERED: ePHEDrine 50 MG/ML VIAL IVP PRN (08:52)
[2023-09-28] MEDS ORDERED: fentaNYL 100 MCG/2 ML VIAL IVP PRN (08:52)
[2023-09-28] MEDS ORDERED: NALOXONE 0.4 MG/ML VIAL IVP PRN (08:52)
[2023-09-28] MEDS ORDERED: MORPHINE 2 MG/ML CARPUJECT IVP PRN (08:52)
[2023-09-28] MEDS ORDERED: LACTATED RINGERS 1,000 ML IV SCH (09:00)
[2023-09-28] MEDS ORDERED: BUPIVACAINE 0.25% PF 30 ML VIAL SUBQ ONE (09:25)
[2023-09-28] MEDS ORDERED: SUGAMMADEX 200 MG/2 ML VIAL IVP ONE (09:41)
[2023-09-28] MEDS ORDERED: PHENYLEPHRINE HCL 0.5 MG/5 ML AMPULE ONE (09:48)
[2023-09-28] MEDS ORDERED: LACTATED RINGERS 600 ML IV ONE (10:28)
--- NOTE | 2023-09-28 10:40 | OPERATIVE REPORT ---
Operative Report - General Procedure Date: 09/28/23 Planned Procedure: open repair recurrent incisional hernia with mesh Pre-Op Diagnosis: recurrent incisional hernia Procedure Performed: open repair recurrent 3 cm incarcerated incisional hernia Post Op Diagnosis: incarcerated incisional hernia - Procedure Note Primary Surgeon: gely galaviz Anesthesia Technique: General ET tube, Local Pathology: none Estimated Blood Loss (mL): 2 Drain/Tube Type: Other (none) Indications: painful hernia Findings: as above. 1.5 x 3 inch polypropylene mesh preperitoneal and under old mesh Complications: none - Other Other Information/Narrative: The patient was prepped identified brought to the operating room and placed in supine position. Sequential compression devices were placed. General endotracheal anesthesia was induced. He was prepped and draped in a sterile fashion and given preoperative antibiotics. Patient had a prior incision cephalad of the umbilicus and curved right lateral of the umbilicus. This incision was reopened. Incarcerated preperitoneal adipose tissue through a 3 cm defect was present 2 cm cephalad of the umbilicus. Umbilical skin was sharply excised away from prior repair. Small piece of mesh and 0 Tycron or Ethibond sutures were present beneath the umbilicus. The incarcerated preperitoneal adipose tissue was carefully released at the fascial defect edge sharply or with cutting current cautery. The preperitoneal space was carefully developed mostly with blunt dissection. Fortunately I was able to create a plane beneath the old mesh. The peritoneum was intact. Approximately 1-1/2 inch wide by 3 inch tall polypropylene mesh was placed preperitoneal and below the old mesh. It was secured with approximately 9 interrupted 0 Prolene sutures. Fascia was closed over the mesh with 3 point interrupted 0 Prolene sutures. The mesh laying in good position without tension. There were no apparent complications. Subcutaneous tissue was closed with interrupted 2-0 Vicryl suture. Buried interrupted subdermal 3-0 Vicryl sutures were then placed. Skin was closed with a running 4-0 Monocryl subcuticular suture. Dress ing was applied. He was awakened and brought to recovery in good condition.
[2023-09-28] MEDS: HYDROmorphone 0.5 MG/0.5 ML SYRINGE IVP PRN ×7 (11:00→12:25)
[2023-09-28] MEDS ORDERED: HYDROmorphone 1 MG/ML CARPUJECT ONE ×4 (11:01→12:29)
[2023-09-28] MEDS ORDERED: METOCLOPRAMIDE 10 MG/2 ML VIAL ONE (11:14)
[2023-09-28] MEDS ORDERED: hydrALAZINE INJ 20 MG/ML VIAL ONE (11:34)
[2023-09-28] MEDS ORDERED: hydrALAZINE INJ 20 MG/ML VIAL IVP ONE (11:36)
[2023-09-28] MEDS ORDERED: KETOROLAC 30 MG/ML VIAL ONE (11:45)
[2023-09-28] MEDS ORDERED: SCOPOLAMINE PATCH TOP ONE (12:20)
--- NOTE | 2023-09-28 12:27 | ANESTHESIA POST OP EVALUATION ---
Anesthesia Post Eval - Post Anesthesia Eval Vitals: Last Vital Signs Temp 36.4 C L 09/28/23 12:03 Pulse 117 H 09/28/23 12:03 Resp 18 09/28/23 12:03 BP 173/118 H 09/28/23 12:03 Pulse Ox 94 09/28/23 12:03 O2 Flow Rate CV Function Including HR & BP: Stable, Additional Therapies Ordered (reminded to take home BP meds) Pain Control: Satisfactory Nausea & Vomiting: Negative, Addtional Therapies Ordered [facility] Mental Status: Baseline Respiratory Status: Airway Patent Hydration Status: Satisfactory Anesthesia Complications: None
[2023-09-28] MEDS ORDERED: SCOPOLAMINE PATCH TOP SCH (13:00)
[2023-09-28 13:03] VITALS: BP 179/118; O2SAT 94
== END 2023-09-28 06:41 | disposition home or self-care (01) ==
LOC: SDS 06:40
PROVIDERS: ATTEND Surgery
DX: K43.0 Incisional hernia with obstruction, without gangrene (principal); E11.9 Type 2 diabetes mellitus without complications; G89.29 Other chronic pain; M54.9 Dorsalgia, unspecified; I10 Essential (primary) hypertension
CPT/HCPCS: 49616; C1781; J0131; J1170; J1815; J2372; J2765; J3490; J7120

== ENCOUNTER 2023-10-16 09:04 | Outpatient (CLI) | payer MEDICARE | END 2023-10-16 23:59 | disposition critical access hospital (66) | LOC: EMS 09:04 | DX: I47.10 Supraventricular tachycardia, unspecified (principal) | CPT/HCPCS: A0425; A0427 ==

== ENCOUNTER 2023-10-16 09:26 | Emergency (ER) | payer MEDICARE ==
--- NOTE | 2023-10-16 09:47 | ED Physician Documentation ---
History of Present Illness - Stated complaint Stated Complaint: SVT - Additonal information Additional information: Patient 53-year-old male with known history of chronic pain, alcohol abuse, depression with suicidal ideation brought in by EMS for report of SVT. He was found to be in SVT well tried to go to his doctor's office today. Reports that he was at his doctor's office to be evaluated for facial injuries and facial pain that happened after a fall that occurred 4 days ago. States that he was getting out of his car and fell forward striking his face on the car mirror. He does have a history of alcohol abuse disorder but reports that he has been sober for several months with the exception of a few drinks over the course of the last 2 days. Reports that his chronic pain as well as the pain associated with his face is what drove him to drink. He does follow with anesthesiology at [facility] and has a Dilaudid intrathecal pump. He also reports abdominal pain associated with a recent hernia repair. Denies other illicit substance abuse. Denies suicidal or homicidal ideation. Patient was given 6 mg adenosine via EMS with spontaneous conversion to sinus rhythm. Review of Systems Constitutional: denies: Fever Eyes: denies: Loss of vision Ears: denies: Loss of hearing Nose: denies: Rhinorrhea / runny nose Throat: denies: Dental pain / toothache Cardiac: denies: Chest pain / pressure Respiratory: denies: Dyspnea GI: reports: Abdominal Pain : denies: Dysuria Skin: denies: Rash PD PAST MEDICAL HISTORY - Past Medical History Cardiovascular: Hypertension, High cholesterol Respiratory: Sleep apnea Neuro: Peripheral neuropathy, Other Endocrine/Autoimmune: Type 2 diabetes, HyPOthyroidism GI: GERD, Chronic constipation, Other : Other HEENT: None Psych: Depression, Bipolar disorder, Other Musculoskeletal: Osteoarthritis, Chronic back pain Derm: Other - Past Surgical History Past Surgical History: No General: Appendectomy, Other Ortho: Carpal Tunnel surgery, Spine surgery, 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:  Derm: Skin grafts - Present Medications Home Medications: Ambulatory Orders Medication Instructions Recorded Confirmed Atorvastatin Calcium 20 mg PO HS 01/04/23 10/16/23 Losartan Potassium [Cozaar] 100 mg PO DAILY 01/04/23 10/16/23 Tamsulosin [Flomax] 0.4 mg PO QPM 01/21/23 10/16/23 Escitalopram [Lexapro] 20 mg PO DAILY 02/07/23 10/16/23 ARIPiprazole [Aripiprazole] 15 mg PO DAILY 09/22/23 10/16/23 Doxepin [SINEquan] 10 mg PO QPM 09/22/23 10/16/23 EPINEPHrine [Epinephrine] 0.3 mg IJ PRN PRN 09/22/23 10/16/23 Gabapentin [Neurontin] 600 mg PO BID 09/22/23 10/16/23 Insulin Glargine [Lantus Solostar] 20 unit SUBQ QPM 09/22/23 10/16/23 Insulin Lispro [Insulin Lispro 0 - 12 unit SUBQ ACHS 09/22/23 10/16/23 Glenn Arturosamy] Magnesium Oxide 400 mg PO BID 09/22/23 10/16/23 Naloxone HCl 4 mg NS PRN PRN 09/22/23 10/16/23 hydrOXYzine HCL [Hydroxyzine HCl] 25 mg PO BID PRN 09/22/23 10/16/23 Ondansetron Odt [Zofran Odt] 4 mg PO Q6H PRN #15 tablet 09/28/23 10/16/23 HYDROmorphone [Dilaudid] 2 mg PO Q6H PRN #20 tablet 10/11/23 10/16/23 Omeprazole 40 mg PO DAILY 10/16/23 10/16/23 Propranolol HCl 20 mg PO BID 10/16/23 10/16/23 - Allergies Allergies/Adverse Reactions: Allergies Allergy/AdvReac Type Severity Reaction Status Date / Time penicillin G Allergy Severe hearing Verified 10/16/23 09:37 loss left ear povidone-iodine Allergy Severe Respiratory Verified 10/16/23 09:37 [From Betadine] soap * [From Betadine] Allergy Severe Respiratory Verified 10/16/23 09:37 adhesive Allergy Unknown Verified 10/16/23 09:37 iodine Allergy Unknown Verified 10/16/23 09:37 shellfish derived Allergy skin Verified 10/16/23 09:37 burning - Social History Does the pt smoke?: No Smoking Status: Never smoker Does the pt drink ETOH?: Yes Does the pt have substance abuse?: No - Immunizations Immunizations are current?: Yes - POLST Patient has POLST: No POLST Status: Full Code PD ED PE NORMAL - Vitals Vital signs reviewed: Yes (Tachycardi) - General General: Alert and oriented X 3, Well developed/nourished - HEENT HEENT: Other (Notable ecchymosis around the eyes bilaterally. Some conjunctival injections to the left eye. Extraocular motion appears intact. No signs of entrapment. Negative hemotympanum. Positive Johnson sign.) - Neck Neck: Supple, no meningeal sign - Cardiac Cardiac: RRR, No gallop - Respiratory Respiratory: No respiratory distress, Clear bilaterally - Abdomen Abdomen: Normal bowel sounds, Other (Notable central ecchymosis. 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 Relevant findings are: Sinus rhythm with rate 113 bpm. Normal axis. Normal ID, QRS, QTc intervals. No ST segment elevations or T wave inversions. - Labs Labs: Laboratory Tests 10/16/23 10/16/23 10/16/23 10:01 10:01 10:01 WBC 5.7 RBC 4.67 L Hgb 14.4 Hct 43.6 MCV 93.4 MCH 30.8 MCHC 33.0 RDW 13.8 Plt Count 198 MPV 9.8 Neut # (Auto) 3.9 Lymph # (Auto) 1.1 L Amador # (Auto) 0.6 Eos # (Auto) 0.0 Baso # (Auto) 0.0 Absolute Nucleated RBC 0.00 Nucleated RBC % 0.0 PT 11.6 INR 1.1 Sodium 130 L Potassium 4.5 Chloride 91 L Carbon Dioxide 25 Anion Gap 14.0 H BUN 11 Creatinine 0.7 Estimated GFR (MDRD) 117 Glucose 305 H Calcium 9.5 Magnesium 1.7 Total Bilirubin 1.0 AST 109 H ALT 70 H Alkaline Phosphatase 101 Total Protein 8.1 Albumin 5.0 Globulin 3.1 Albumin/Globulin Ratio 1.6 Lipase 14 Ethyl Alcohol 276.1 PD Medical Decision Making - ED course Complexity details: reviewed old records, reviewed results, re-evaluated patient, considered differential, d/w patient ED course: Patient 53-year-old male presenting to the emergency department with chief complaint of supraventricular tachycardia. Was at his doctor's office and was found to be in SVT. EMS was contacted and he received 6 mg adenosine with Conversion to sinus rhythm. Subsequently brought to the emergency department for evaluation. Upon arrival to the emergency department he endorsed for recent maxillofacial trauma, stating that his "legs went out from under me" and he slammed his face into the side of his car. Did endorse for active alcohol intoxication stating that he has been drinking for the last 2 days. He endorsed 2 alcoholic beverages total this morning. No focal or lateralizing neurologic deficits though obvious ecchymosis and tende rness to the bridge of the nose. No signs of ocular entrapment. He did endorse for some blurred vision in the periphery of his left eye. Additionally he was endorsing for some abdominal pain. Recently underwent a hernia repair. He did have some ecchymosis to his abdomen as well as tenderness but no signs of surgical site infection. Comprehensive labs were obtained which demonstrated a mild hyponatremia, as well as a mild elevation LFTs all consistent with the patient's history of alcohol abuse disorder. His blood ethanol in the emergency department was 270. His EKG here in the emergency department was nonacute. CT scans of his head, neck, maxillofacial area, abdomen and pelvis demonstrated a mildly displaced nasal bone fracture but no other acute injury. Patient did receive 1 mg hydromorphone in the emergency department. Chart review demonstrates 2 recent prescriptions for oral hydromorphone, with the last prescription given 10/11/2023.Additionally he does report that he is cu rrently receiving intrathecal hydromorphone managed by his pain pain specialist at [facility]. On reevaluation I discussed all findings with him.He was offered evaluation and social work consultation for detox which he adamantly declined, stating that he is only been drinking for the last 2 days. He was offered further evaluation for his ocular injury however after approximately 3 hours in the emergency department he requested discharge. Departure - Departure Disposition: 01 Home, Self Care Clinical Impression: SVT (supraventricular tachycardia) Alcohol intoxication Qualifiers: Complication of substance-induced condition: uncomplicated Qualified Code(s): F10.920 - Alcohol use, unspecified with intoxication, uncomplicated Nasal bone fracture Qualifiers: Encounter type: initial encounter Fracture type: closed Qualified Code(s): S02.2XXA - Fracture of nasal bones, initial encounter for closed fracture Eye injury Qualifiers: Encounter type: initial encounter Laterality: left Qualified Code(s): S05.92XA - Unspecified injury of left eye and orbit, initial encounter Instructions: ED Alcohol Intoxication Comments: Thank you for allowing us to care for you today [facility]. Today in the emergency department you were evaluated for any possible dangerous or life-threatening medical condition. The imaging performed did show a mildly displaced nasal bone fracture. This is something you want to follow-up with your primary care doctor or with an ears nose and throat specialist in the next few days. I would like to strongly encourage you to abstain from alcohol in the future. Below you will find some information about a local area detox facility that you can follow-up with as needed. You were also found to be in an irregular heart rhythm known as supraventricular tachycardia. You are given medications by the paramedics prior to your arrival which has converted you to a sinus rhythm. It is important that you follow-up with yourPrimary care doctor concerning everything that is happened here in the emergency department today. If it anytime you have new or worsening symptoms please not hesitate to return. [facility] [address] [place] [id number] Forms: PCP List
[2023-10-16] MEDS: SODIUM CHLORIDE 0.9% 1,000 ML IV STA (10:00)
[2023-10-16] MEDS: HYDROmorphone 1 MG/ML CARPUJECT IVP STA (10:00)
[2023-10-16] MEDS: ONDANSETRON 4 MG/2 ML VIAL IVP STA (10:00)
[2023-10-16 10:05] LABS: BASOPHILS % (AUTO) 0.7 %; EOSINOPHILS % (AUTO) 0.5 %; HCT - HEMATOCRIT 43.6 % (42.0-52.0); HGB - HEMOGLOBIN 14.4 g/dL (14.0-18.0); LYMPHOCYTES # (AUTO) 1.1 10^3/uL (1.5-3.5); LYMPHOCYTES % (AUTO) 18.7 %; MEAN CORPUSCULAR HEMOGLOBIN 30.8 pg (27.0-31.0); MEAN CORPUSCULAR VOLUME 93.4 fL (80.0-94.0); MEAN PLATELET VOLUME 9.8 fL (7.4-11.4); MONOCYTES # (AUTO) 0.6 10^3/uL (0.0-1.0); MONOCYTES % (AUTO) 11.1 %; NEUTROPHILS # (AUTO) 3.9 10^3/uL (1.5-6.6); NEUTROPHILS % (AUTO) 68.6 %; PLT - PLATELET COUNT 198 10^3/uL (130-450); RED BLOOD COUNT 4.67 10^6/uL (4.70-6.10); RED CELL DISTRIBUTION WIDTH 13.8 % (12.0-15.0); WHITE BLOOD COUNT 5.7 x10^3/uL (4.8-10.8)
[2023-10-16 10:13] LABS: INR 1.1 (0.8-1.2); PT - PROTHROMBIN TIME 11.6 secs (9.9-12.6)
[2023-10-16 10:20] LABS: ALBUMIN/GLOBULIN RATIO 1.6 (1.0-2.2); CALCIUM 9.5 mg/dL (8.5-10.3); CREATININE 0.7 mg/dL (0.6-1.3); ETOH - ETHANOL 276.1 mg/dL; MAGNESIUM 1.7 mg/dL (1.7-2.3); POTASSIUM 4.5 mmol/L (3.5-4.5); TOTAL PROTEIN 8.1 g/dL (6.4-8.9)
--- NOTE | 2023-10-16 11:42 | CT Report ---
PROCEDURE: Head WO INDICATIONS: trauma TECHNIQUE: Noncontrast 4.5 mm thick angled axial sections acquired from the foramen magnum to the vertex. For r adiation dose reduction, the following was used: automated exposure control, adjustment of mA and/or kV according to patient size. COMPARISON: CT head 01/03/2023. FINDINGS: Image quality: Excellent. CSF spaces: Basal cisterns are patent. No extra-axial fluid collections. Ventricles are normal in size and shape. Brain: No midline shift. No intracranial masses or hemorrhage. Marr-white matter interface is norm al. Skull and face: Calvarium and visualized facial bones are intact, without suspicious lesions. Sinuses: Visualized sinuses and mastoids are clear. IMPRESSION: No acute intracranial pathology. Reviewed by: Abel White MD on 10/16/2023 11:41 AM PST Approved by: Abel White MD on 10/16/2023 11:41 AM PST Station ID: [id number]
--- NOTE | 2023-10-16 11:43 | CT Report ---
PROCEDURE: Abdomen/Pelvis WO INDICATIONS: trauma, recent surgery, iodine allergy TECHNIQUE: A CT scan of the abdomen and pelvis was performed without the use of intravenous contrast. Images we re recorded and evaluated at appropriate window settings. Reformats: coronal and sagittal. For radiat ion dose reduction, the following was used: automated exposure control, adjustment of mA and/or kV ac cording to patient size. COMPARISON: None. FINDINGS: Image quality: Excellent. Lung bases and heart: Unremarkable. Liver: No contour-deforming mass. Diffusely decreased hepatic density. Gallbladder and biliary tree: High density material within the gallbladder lumen. Spleen: No splenomegaly. Pancreas: No pancreatic ductal dilation. Adrenals: No adrenal nodule. Kidneys and ureters: No hydronephrosis. No renal cystic lesion which requires follow up. No solid mas s. Bowel and peritoneum: Moderate hiatal hernia. No bowel distension. No pathologic free fluid. Appendix not seen. No evidence of appendicitis. Lymph nodes: No central or retroperitoneal adenopathy. Vessels: No infrarenal aortic aneurysm. PELVIS Reproductive organs: Unremarkable. Bladder: No wall thickness, accounting for underdistention. Pelvic lymph nodes: No pelvic adenopathy by size criteria. Bones: No aggressive osseous abnormality. Other: No significant ventral or inguinal hernia. IMPRESSION: 1. No acute process. 2. Appendix not seen. No evidence of appendicitis. 3. Hiatal hernia. 4. Hepatic steatosis. Reviewed by: Ramesh Arias MD on 10/16/2023 11:42 AM [facility] [[email or web address]] Approved by: Ramesh Arias MD on 10/16/2023 11:42 AM [facility] [[email or web address]] Station ID: [id number]
--- NOTE | 2023-10-16 11:46 | CT Report ---
PROCEDURE: Maxillofacial WO INDICATIONS: trauma TECHNIQUE: Noncontrast 1.5 mm thick axial images acquired from the mandible through the frontal sinuses, with co jazmine and sagittal reformatting. For radiation dose reduction, the following was used: automated ex posure control, adjustment of mA and/or kV according to patient size. COMPARISON: None. FINDINGS: Image quality: Excellent. Bones and teeth: Comminuted and mildly displaced fracture of the anterior nasal spine. Orbital finch are intact. Sinus finch show no fracture or deformity. Nasal bones and septum are intact. Visualiz ed portions of the mandible demonstrate no fractures or subluxation. Zygomatic arches are intact. P terygoid plates are intact. Visualized portions of the skull base and auditory canals are intact. Sinuses: Paranasal sinuses are aerated, without fluid levels, mucosal thickening, or mucoceles. Mas toid air cells are aerated. Soft tissues: Mild subcutaneous swelling over the cheeks and forehead. No edema, masses, or fluid co llections. No enlarged lymph nodes. No soft tissue lacerations or debris. Vascular: Visualized vascular structures appear normal in the absence of contrast. Bony vascular fo ramina and canals are intact. IMPRESSION: Comminuted and mildly displaced fracture of the anterior nasal spine. Otherwise, no acut e facial fractures. Reviewed by: Abel White MD on 10/16/2023 11:45 AM PST Approved by: Abel White MD on 10/16/2023 11:45 AM PST Station ID: [id number]
--- NOTE | 2023-10-16 11:49 | CT Report ---
PROCEDURE: Cervical Spine WO INDICATIONS: trauma TECHNIQUE: Noncontrast 3 mm thick sections acquired from the skull base to the T4 level. Sagittal and coronal r eformats were then constructed. For radiation dose reduction, the following was used: automated exp osure control, adjustment of mA and/or kV according to patient size. COMPARISON: None. FINDINGS: Image quality: Excellent. Bones: No fractures or dislocations. Multilevel degenerative changes of the cervical spine with face t and uncovertebral arthropathy, disc height loss, endplate degenerative changes and spurring. Visua lized superior ribs are intact. Soft tissues: Prevertebral soft tissues are normal in thickness. No paravertebral hematomas. No ap ical pneumothoraces. IMPRESSION: No acute, displaced fracture or traumatic subluxation. Reviewed by: Abel White MD on 10/16/2023 11:47 AM PST Approved by: Abel White MD on 10/16/2023 11:47 AM PST Station ID: [id number]
[2023-10-16 12:25] VITALS: BP 160/100; O2SAT 94
== END 2023-10-16 12:27 | disposition home or self-care (01) ==
LOC: ED 09:26
DX: I47.10 Supraventricular tachycardia, unspecified (principal); F10.129 Alcohol abuse with intoxication, unspecified; Y90.8 Blood alcohol level of 240 mg/100 ml or more; S02.2XXA Fracture of nasal bones, initial encounter for closed fracture; S05.92XA Unspecified injury of left eye and orbit, initial encounter; W18.39XA Other fall on same level, initial encounter; W22.09XA Striking against other stationary object, initial encounter; Y93.89 Activity, other specified; Y92.810 Car as the place of occurrence of the external cause
CPT/HCPCS: 36415; 70450; 70486; 72125; 74176; 80053; 83690; 83735; 85025; 85610; 93005; 96374; 99284; G0480; J1170; 80320

== ENCOUNTER 2023-10-26 11:17 | Outpatient (CLI) | payer MEDICARE | END 2023-10-26 11:18 | disposition EMS.NT | LOC: EMS 11:17 | DX: R53.1 Weakness (principal); R29.6 Repeated falls ==

== ENCOUNTER 2023-10-26 18:28 | Outpatient (CLI) | payer MEDICARE | END 2023-10-26 23:59 | disposition short-term general hospital (02) | LOC: EMS 18:28 | DX: E11.65 Type 2 diabetes mellitus with hyperglycemia (principal); R44.0 Auditory hallucinations; R44.1 Visual hallucinations; R29.6 Repeated falls; S00.11XA Contusion of right eyelid and periocular area, initial encounter; W19.XXXA Unspecified fall, initial encounter; F10.90 Alcohol use, unspecified, uncomplicated | CPT/HCPCS: A0425; A0429 ==

== ENCOUNTER 2023-11-02 11:45 | Outpatient (CLI) | payer MEDICARE | END 2023-11-02 23:59 | disposition short-term general hospital (02) | LOC: EMS 11:45 | DX: R45.851 Suicidal ideations (principal); R51.9 Headache, unspecified; F10.129 Alcohol abuse with intoxication, unspecified; I10 Essential (primary) hypertension; R00.0 Tachycardia, unspecified; E11.65 Type 2 diabetes mellitus with hyperglycemia; Z79.4 Long term (current) use of insulin | CPT/HCPCS: A0425; A0429; A0888 ==

== ENCOUNTER 2023-11-23 17:42 | Outpatient (CLI) | payer MEDICARE | END 2023-11-23 17:43 | disposition critical access hospital (66) | LOC: EMS 17:42 | DX: Z04.6 Encounter for general psychiatric examination, requested by authority (principal); R45.851 Suicidal ideations; F32.A Depression, unspecified; F10.90 Alcohol use, unspecified, uncomplicated | CPT/HCPCS: A0425; A0429 ==

== ENCOUNTER 2023-11-23 18:00 | Emergency (ER) | payer MEDICARE ==
[2023-11-23 18:18] LABS: BASOPHILS % (AUTO) 0.5 %; EOSINOPHILS # (AUTO) 0.1 10^3/uL (0.0-0.7); EOSINOPHILS % (AUTO) 0.9 %; HCT - HEMATOCRIT 41.5 % (42.0-52.0); HGB - HEMOGLOBIN 13.8 g/dL (14.0-18.0); LYMPHOCYTES % (AUTO) 23.3 %; MEAN CORPUSCULAR HEMOGLOBIN 31.4 pg (27.0-31.0); MEAN CORPUSCULAR HGB CONC 33.3 g/dL (32.0-36.0); MEAN CORPUSCULAR VOLUME 94.3 fL (80.0-94.0); MEAN PLATELET VOLUME 8.8 fL (7.4-11.4); MONOCYTES # (AUTO) 0.6 10^3/uL (0.0-1.0); MONOCYTES % (AUTO) 6.4 %; NEUTROPHILS # (AUTO) 5.9 10^3/uL (1.5-6.6); NEUTROPHILS % (AUTO) 68.7 %; PLT - PLATELET COUNT 372 10^3/uL (130-450); WHITE BLOOD COUNT 8.6 x10^3/uL (4.8-10.8)
[2023-11-23 18:33] LABS: ACETAMINOPHEN 0.3 ug/mL; ALBUMIN 4.7 g/dL (3.2-5.5); ALBUMIN/GLOBULIN RATIO 1.5 (1.0-2.2); ALKALINE PHOSPHATASE 90 IU/L (42-121); ALT ALANINE AMINOTRANSFERASE 32 IU/L (10-60); AST ASPARTATE AMINOTRANSFERASE 36 IU/L (10-42); BILIRUBIN,TOTAL 0.4 mg/dL (0.2-1.0); BUN - BLOOD UREA NITROGEN 10 mg/dL (6-20); CALCIUM 9.1 mg/dL (8.5-10.3); CARBON DIOXIDE - CO2 28 mmol/L (21-32); CHLORIDE 98 mmol/L (101-111); CK- CREATINE KINASE 157 IU/L (30-223); CREATININE 0.7 mg/dL (0.6-1.3); GFR - MDRD 117 (>89); GLUCOSE 250 mg/dL (74-104); LIPASE < 10 U/L (11-82); MAGNESIUM 1.5 mg/dL (1.7-2.3); POTASSIUM 4.3 mmol/L (3.5-4.5); SODIUM 139 mmol/L (135-145); TOTAL PROTEIN 7.8 g/dL (6.4-8.9)
--- NOTE | 2023-11-23 18:39 | CT Report ---
PROCEDURE: Head WO INDICATIONS: head inj TECHNIQUE: Noncontrast 4.5 mm thick angled axial sections acquired from the foramen magnum to the vertex. For r adiation dose reduction, the following was used: automated exposure control, adjustment of mA and/or kV according to patient size. COMPARISON: Head CT 10/16/2023, 12/26/2022. FINDINGS: Image quality: Excellent. CSF spaces: Basal cisterns are patent. No extra-axial fluid collections. Ventricles are normal in size and shape. Brain: No midline shift. No intracranial masses or hemorrhage. Marr-white matter interface is norm al. Skull and face: Calvarium and visualized facial bones are intact, without suspicious lesions. Sinuses: Visualized sinuses and mastoids are clear. IMPRESSION: No acute intracranial pathology. Reviewed by: Jeff aZragoza MD on 11/23/2023 6:37 PM PST Approved by: Jeff Zaragoza MD on 11/23/2023 6:37 PM [facility] Station ID: [id number]
[2023-11-23 18:41] LABS: SALICYLATE < 1.5 mg/dL
--- NOTE | 2023-11-23 18:41 | CT Report ---
PROCEDURE: Cervical Spine WO INDICATIONS: head inj TECHNIQUE: Noncontrast 3 mm thick sections acquired from the skull base to the T4 level. Sagittal and coronal r eformats were then constructed. For radiation dose reduction, the following was used: automated exp osure control, adjustment of mA and/or kV according to patient size. COMPARISON: CTA neck 10/16/2023. FINDINGS: Image quality: Excellent. Bones: No fractures or dislocations. Moderate to severe degenerative change in the cervical spine. Visualized superior ribs are intact. Soft tissues: Prevertebral soft tissues are normal in thickness. No paravertebral hematomas. No ap ical pneumothoraces. IMPRESSION: No acute fracture. Moderate to severe degenerative change. Reviewed by: Jeff Zaragoza MD on 11/23/2023 6:40 PM PST Approved by: Jeff Zaragoza MD on 11/23/2023 6:40 PM [facility] Station ID: [id number]
[2023-11-23 18:47] LABS: THYROID STIMULATING HORMONE 2.35 uIU/mL (0.34-5.60)
--- NOTE | 2023-11-23 18:50 | ED Physician Documentation ---
PD HPI MHE - Stated complaint Stated Complaint: MHE - Chief complaint Chief Complaint: MHE - History obtained from History obtained from: Patient, EMS - Additional information Additional information: He presents by ambulance, it sounds like he called his doctor's office and there was some statements of SI and then hung up on them. So 911 was called and he admits to drinking today and a plan of suicide by hanging. 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:  Derm: Skin grafts - Present Medications Home Medications: Ambulatory Orders Medication Instructions Recorded Confirmed Losartan Potassium [Cozaar] 100 mg PO DAILY 01/04/23 11/23/23 Tamsulosin [Flomax] 0.4 mg PO QPM 01/21/23 11/23/23 ARIPiprazole [Aripiprazole] 15 mg PO DAILY 09/22/23 11/23/23 Doxepin [SINEquan] 10 mg PO QPM 09/22/23 11/23/23 EPINEPHrine [Epinephrine] 0.3 mg IJ PRN PRN 09/22/23 11/23/23 Gabapentin [Neurontin] 600 mg PO BID 09/22/23 11/23/23 Insulin Glargine [Lantus Solostar] 20 unit SUBQ QPM 09/22/23 11/23/23 Insulin Lispro [Insulin Lispro 0 - 12 unit SUBQ ACHS 09/22/23 11/23/23 Glenn [place]] Magnesium Oxide 400 mg PO BID 09/22/23 11/23/23 Naloxone HCl 4 mg NS PRN PRN 09/22/23 11/23/23 Ondansetron Odt [Zofran Odt] 4 mg PO Q6H PRN #15 tablet 09/28/23 11/23/23 Omeprazole 40 mg PO DAILY 10/16/23 11/23/23 Propranolol HCl 20 mg PO BID 10/16/23 11/23/23 Atorvastatin Calcium 40 mg PO HS 11/23/23 11/23/23 Dextroamphetamine/Amphetamine 20 mg PO BID 11/23/23 11/23/23 [Adderall 20 mg Tablet] HYDROmorphone [Dilaudid] See Rx Instructions .ROUTE 11/23/23 11/23/23 .COMPLEX PRN Metformin HCl 1,000 mg PO BID 11/23/23 11/23/23 Sertraline HCl 100 mg PO DAILY 11/23/23 11/23/23 hydrOXYzine HCL [Hydroxyzine HCl] 50 mg PO Q6HR PRN 11/23/23 11/23/23 - Allergies Allergies/Adverse Reactions: Allergies Allergy/AdvReac Type Severity Reaction Status Date / Time penicillin G Allergy Severe hearing Verified 11/23/23 19:19 loss left ear povidone-iodine Allergy Severe Respiratory Verified 11/23/23 19:19 [From Betadine] soap * [From Betadine] Allergy Severe Respiratory Verified 11/23/23 19:19 adhesive Allergy Unknown Verified 11/23/23 19:19 iodine Allergy Unknown Verified 11/23/23 19:19 shellfish derived Allergy skin Verified 11/23/23 19:19 burning - Social History Does the pt smoke?: No Smoking Status: Never smoker Does the pt drink ETOH?: Yes Does the pt have substance abuse?: No - Immunizations Immunizations are current?: Yes - POLST Patient has POLST: No POLST Status: Full Code PD ED PE NORMAL - Vitals Vital signs reviewed: Yes - General General: No acute distress, Well developed/nourished - HEENT HEENT: PERRL, Other (He has an abrasion above the left eyebrow. States he fell yesterday and hit his head. He has horizontal nystagmus and the entirety of the face is slightly swollen.) - Neck Neck: Supple, no meningeal sign, No bony TTP - Cardiac Cardiac: RRR, No murmur - Respiratory Respiratory: No respiratory distress, Clear bilaterally - Abdomen Abdomen: Soft, Non tender - Back Back: No CVA TTP, No spinal TTP - Derm Derm: Normal color, Warm and dry - Extremities Extremities: No edema, No calf tenderness / cord - Neuro Neuro: Alert and oriented X 3, No motor deficit, No sensory deficit, Normal speech Eye Opening: Spontaneous Motor: Obeys Commands Verbal: Oriented GCS Score: 15 - Psych Psych: Normal mood, Normal affect Results - Vitals Vitals: Vital Signs - 24 hr 11/23/23 18:00 Temperature 36.6 C Heart Rate 71 Respiratory 16 Rate Blood Pressure 145/88 H O2 Saturation 94 Oxygen O2 Source Room air - Labs Labs: Laboratory Tests 11/23/23 11/23/23 11/23/23 18:14 18:14 19:28 WBC 8.6 RBC 4.40 L Hgb 13.8 L Hct 41.5 L MCV 94.3 H MCH 31.4 H MCHC 33.3 RDW 13.0 Plt Count 372 MPV 8.8 Neut # (Auto) 5.9 Lymph # (Auto) 2.0 [place] # (Auto) 0.6 Eos # (Auto) 0.1 Baso # (Auto) 0.0 Absolute Nucleated RBC 0.00 Nucleated RBC % 0.0 Sodium 139 Potassium 4.3 Chloride 98 L Carbon Dioxide 28 Anion Gap 13.0 BUN 10 Creatinine 0.7 Estimated GFR (MDRD) 117 Glucose 250 H POC Whole Bld Glucose Calcium 9.1 Magnesium 1.5 L Total Bilirubin 0.4 AST 36 ALT 32 Alkaline Phosphatase 90 Total Creatine Kinase 157 Total Protein 7.8 Albumin 4.7 Globulin 3.1 Albumin/Globulin Ratio 1.5 Lipase < 10 L TSH 2.35 Urine Color YELLOW Urine Clarity CLEAR Urine pH 6.0 Ur Specific [place] >=1.030 H Urine Protein 100 H Urine Glucose (UA) >=1000 H Urine Ketones 15 H Urine Occult Blood NEGATIVE Urine Nitrite NEGATIVE Urine Bilirubin NEGATIVE Urine Urobilinogen 0.2 (NORMAL) Ur Leukocyte Esterase NEGATIVE Urine RBC 0-5 Urine WBC 0-3 Ur Squamous Epith Cells MOD Squamous H Urine Bacteria Rare Urine Mucus Few Strands Ur Microscopic Review INDICATED Urine Culture Comments NOT INDICATED Nasal Adenovirus (PCR) Nasal B. parapertussis DNA (PCR) Nasal Coronavir 229E PCR Nasal Coronavir HKU1 PCR Nasal Coronavir NL63 PCR Nasal Coronavir OC43 PCR Nasal Enterovir/Rhinovir PCR Nasal Influenza B PCR Nasal Influenza A PCR Nasal Parainfluen 1 PCR Nasal Parainfluen 2 PCR Nasal Parainfluen 3 PCR Nasal Parainfluen 4 PCR Nasal RSV (PCR) Nasal B.pertussis DNA PCR Nasal C.pneumoniae (PCR) [place] Human Metapneumo PCR Nasal M.pneumoniae (PCR) Nasal SARS-CoV-2 (PCR) Salicylates < 1.5 Urine Opiates Screen POSITIVE H Ur Buprenorphine Scrn NEGATIVE Ur Oxycodone Screen NEGATIVE Urine Methadone Screen NEGATIVE Acetaminophen 0.3 Ur Barbiturates Screen NEGATIVE Ur Tricyclics Screen NEGATIVE Ur Phencyclidine Scrn NEGATIVE Ur Amphetamine Screen POSITIVE H U Methamphetamines Scrn NEGATIVE U Benzodiazepines Scrn POSITIVE H Urine Cocaine Screen NEGATIVE U Cannabinoids Screen NEGATIVE Ur Drug Screen Comment CUTOFF CONC BELOW: Ethyl Alcohol 297.0 11/23/23 11/23/23 19:35 21:39 WBC RBC Hgb Hct MCV MCH MCHC RDW Plt Count MPV Neut # (Auto) Lymph # (Auto) [place] # (Auto) Eos # (Auto) Baso # (Auto) Absolute Nucleated RBC Nucleated RBC % Sodium Potassium Chloride Carbon Dioxide Anion Gap BUN Creatinine Estimated GFR (MDRD) Glucose POC Whole Bld Glucose 214 H Calcium Magnesium Total Bilirubin AST ALT Alkaline Phosphatase Total Creatine Kinase Total Protein Albumin Globulin Albumin/Globulin Ratio Lipase TSH Urine Color Urine Clarity Urine pH Ur Specific [place] Urine Protein Urine Glucose (UA) Urine Ketones Urine Occult Blood Urine Nitrite Urine Bilirubin Urine Urobilinogen Ur Leukocyte Esterase Urine RBC Urine WBC Ur Squamous Epith Cells Urine Bacteria Urine Mucus Ur Microscopic Review Urine Culture Comments Nasal Adenovirus (PCR) NOT DETECTED Nasal B. parapertussis DNA (PCR) NOT DETECTED Nasal Coronavir 229E PCR NOT DETECTED Nasal Coronavir HKU1 PCR NOT DETECTED Nasal Coronavir NL63 PCR NOT DETECTED Nasal Coronavir OC43 PCR NOT DETECTED Nasal Enterovir/Rhinovir PCR NOT DETECTED Nasal Influenza B PCR NOT DETECTED Nasal Influenza A PCR NOT DETECTED Nasal Parainfluen 1 PCR NOT DETECTED Nasal Parainfluen 2 PCR NOT DETECTED Nasal Parainfluen 3 PCR NOT DETECTED Nasal Parainfluen 4 PCR NOT DETECTED Nasal RSV (PCR) NOT DETECTED Nasal B.pertussis DNA PCR NOT DETECTED Nasal C.pneumoniae (PCR) NOT DETECTED [place] Human Metapneumo PCR NOT DETECTED Nasal M.pneumoniae (PCR) NOT DETECTED Nasal SARS-CoV-2 (PCR) NOT DETECTED Salicylates Urine Opiates Screen Ur Buprenorphine Scrn Ur Oxycodone Screen Urine Methadone Screen Acetaminophen Ur Barbiturates Screen Ur Tricyclics Screen Ur Phencyclidine Scrn Ur Amphetamine Screen U Methamphetamines Scrn U Benzodiazepines Scrn Urine Cocaine Screen U Cannabinoids Screen Ur Drug Screen Comment Ethyl Alcohol - Rads (name of study) CT of the head and cervical spine Relevant Findings:: Final report received, EMP independent interpretation of test PD Medical Decision Making - ED course ED course: 53-year-old gentleman presents intoxicated on alcohol with reports of suicidal ideation. Workup in the emergency department demonstrates a mild macrocytic chronic anemia, chemistry panel notable for mild hypomagnesemia and hyperglycemia, blood alcohol 297. By my math he should be sober (blood alcohol less than 80) at approximately 3 AM. At that point he could probably be reevaluated and if still suicidal would need either DCR or voluntary treatment with the social media editor in the morning. He has evidence of recent head injury and was sent over for CT of the head and C-spine which were negative for fracture/trauma. Care to overnight ED MD at 11pm shift change pending sobriety. Departure - Departure Clinical Impression: Suicidal ideation Alcohol intoxication Qualifiers: Complication of substance-induced condition: uncomplicated Qualified Code(s): F10.920 - Alcohol use, unspecified with intoxication, uncomplicated Condition: Stable Forms: PCP List
[2023-11-23] MEDS: ACETAMINOPHEN 500 MG TABLET PO STA (19:34)
[2023-11-23 19:55] LABS: BILIRUBIN,URINE NEGATIVE (NEGATIVE); GLUCOSE, URINE (UA) >=1000 mg/dL (NEGATIVE); KETONES,URINE (UA) 15 mg/dL (NEGATIVE); LEUKOCYTE ESTERASE, URINE NEGATIVE (NEGATIVE); NITRITE,URINE NEGATIVE (NEGATIVE); OCCULT BLOOD,URINE NEGATIVE (NEGATIVE); PROTEIN,URINE 100 mg/dL (NEGATIVE); UROBILINOGEN,URINE 0.2 (NORMAL) E.U./dL (NORMAL)
[2023-11-23 20:11] LABS: BACTERIA,URINE Rare /HPF (None Seen); CLARITY,URINE CLEAR (CLEAR); MUCUS,URINE Few Strands; RBC,URINE 0-5 /HPF (0-5); SQUAMOUS EPITHELIAL CELL,UR MOD Squamous (<= Few); WBC,URINE 0-3 /HPF (0-3)
[2023-11-23 20:12] LABS: AMPHETAMINE SCREEN,URINE POSITIVE (NEGATIVE); BARBITURATE SCREEN,UR NEGATIVE (NEGATIVE); BENZODIAZEPINES SCREEN, URINE POSITIVE (NEGATIVE); BUPRENORPHINE SCREEN, URINE NEGATIVE (NEGATIVE); COCAINE SCREEN URINE NEGATIVE (NEGATIVE); METHADONE SCREEN, URINE NEGATIVE (NEGATIVE); METHAMPHETAMINES SCREEN, URINE NEGATIVE (NEGATIVE); OPIATE SCREEN, URINE POSITIVE (NEGATIVE); OXYCODONE SCREEN, URINE NEGATIVE (NEGATIVE); THC CANNABINOID SCREEN, URINE NEGATIVE (NEGATIVE); TRICYCLIC ANTIDEPRESSANT,URINE NEGATIVE (NEGATIVE)
[2023-11-23 20:38] LABS: B. PARAPERTUSSIS- RESP PCR PAN NOT DETECTED; B. PERTUSSIS- RESP PCR PANEL NOT DETECTED; C. PNEUMONIAE- RESP PCR PANEL NOT DETECTED; CORONAVIRUS 229E-RESP PCR NOT DETECTED; CORONAVIRUS HKU1-RESP PCR NOT DETECTED; CORONAVIRUS NL63-RESP PCR NOT DETECTED; CORONAVIRUS OC43-RESP PCR NOT DETECTED; HUMAN METAPNEUMOVIRUS NOT DETECTED; INFLUENZA A- RESP PCR PANEL NOT DETECTED; INFLUENZA B - RESP PCR PANEL NOT DETECTED; M. PNEUMONIAE- RESP PCR PANEL NOT DETECTED; PARAINFLUENZA VIRUS 1 NOT DETECTED; PARAINFLUENZA VIRUS 2 NOT DETECTED; PARAINFLUENZA VIRUS 3 NOT DETECTED; PARAINFLUENZA VIRUS 4 NOT DETECTED; RHINOVIRUS/ENTEROVIRUS NOT DETECTED; RSV- RESP PCR PANEL NOT DETECTED; SARS-CoV-2 -RESP PCR PANEL NOT DETECTED
[2023-11-23] MEDS: GABAPENTIN 300 MG CAPSULE PO SCH (21:07)
[2023-11-23] MEDS: DOXEPIN 10 MG CAPSULE PO SCH (21:07)
[2023-11-23] MEDS: metFORMIN 500 MG TABLET PO SCH (21:07)
[2023-11-23] MEDS: INSULIN GLARGINE-YFGN 300 UNIT/3 ML PEN SUBQ SCH (21:39)
--- NOTE | 2023-11-23 23:33 | ED Physician Documentation ---
ED Addendum - Addendum Addendum: 11/23/23 23:33 Patient endorsed to me by Dr. Connell awaiting repeat alcohol at 3 AM. Patient clinically sober as of 3am with etoh <0.08. Patient resting quietly in bed. 11/24/23 05:25 Plan to endorse to incoming daytime ED MD at 7am shift change pending SW eval in AM.
[2023-11-23] MEDS: ONDANSETRON ODT 4 MG TABLET TL STA (23:41)
[2023-11-24] MEDS: THIAMINE 100 MG TABLET PO SCH (08:20)
[2023-11-24] MEDS: MAGNESIUM OXIDE 400 MG TABLET PO SCH (08:21)
[2023-11-24] MEDS: LOSARTAN 50 MG TABLET PO SCH (08:22)
[2023-11-24] MEDS: SERTRALINE 50 MG TABLET PO SCH (08:22)
[2023-11-24] MEDS: ARIPiprazole 5 MG TABLET PO SCH (08:22)
[2023-11-24] MEDS: PANTOPRAZOLE 40 MG TABLET PO SCH (08:23)
[2023-11-24] MEDS: TAMSULOSIN 0.4 MG CAPSULE PO SCH (08:23)
[2023-11-24] MEDS: ATORVASTATIN 40 MG TABLET PO SCH (08:23)
[2023-11-24] MEDS ORDERED: ESCITALOPRAM 10 MG TABLET PO SCH (09:00)
[2023-11-24] MEDS ORDERED: ATORVASTATIN 10 MG TABLET PO SCH ×2 (09:00)
--- NOTE | 2023-11-24 09:29 | ED Physician Documentation ---
ED Addendum - Addendum Addendum: 11/24/23 09:27 The patient is awake and conversant and interactive this morning. He is up to the restroom ambulatory without notable ataxia. He states he had been feeling sad as he had social stresses. He had been sober and out of a rehab program in [place] recently and had been without drinking. He is darted again last night. This morning he is having onset of some withdrawal symptoms with shakiness and some mild nausea. CIWA score was obtained and was 13. I talked with him about various medications for it. We agreed upon phenobarbital and lorazepam initial doses right now and we can repeat doses. He denies feeling suicidal at this time. I would still have social work talk with him. He declines detox at this time. I will write a prescription for him to help with withdrawal symptoms. Will still have social work assess for safety. Oral medications right now of phenobarbital and Ativan.
[2023-11-24] MEDS: LORazepam 1 MG TABLET PO STA (09:34)
[2023-11-24] MEDS: PHENobarbitaL 32.4 MG TABLET PO STA (09:34)
--- NOTE | 2023-11-24 15:34 | ED Physician Documentation ---
ED Addendum - Addendum Addendum: 11/24/23 15:33 Seen by social work and contracted for safety. He is no longer suicidal. He is clinically sober. Social work has arranged for follow-up plan with the crisis responders for him. disposition: Discharged home Condition: Stable
[2023-11-24 15:48] VITALS: BP 131/78; O2SAT 94
== END 2023-11-24 16:42 | disposition home or self-care (01) ==
LOC: EDUNIT# → ED 18:00
DX: R45.851 Suicidal ideations (principal); F32.A Depression, unspecified; F10.920 Alcohol use, unspecified with intoxication, uncomplicated; Y90.8 Blood alcohol level of 240 mg/100 ml or more; E11.65 Type 2 diabetes mellitus with hyperglycemia; E11.42 Type 2 diabetes mellitus with diabetic polyneuropathy; I10 Essential (primary) hypertension; E78.00 Pure hypercholesterolemia, unspecified; G47.30 Sleep apnea, unspecified; Z79.4 Long term (current) use of insulin; Z79.899 Other long term (current) drug therapy
CPT/HCPCS: 36415; 70450; 72125; 80053; 80143; 80306; 81001; 82550; 83690; 83735; 84443; 85025; 87633; 99284; A9270; G0480; J1815; J8499; Q0162; 80179; 81003; 82077; 87086

== ENCOUNTER 2023-12-20 18:17 | Emergency (ER) | payer MEDICARE ==
--- NOTE | 2023-12-20 18:51 | ED Physician Documentation ---
History of Present Illness - Stated complaint Stated Complaint: HIGH BLOOD SUGAR - Chief complaint Chief Complaint: General - History obtained from History obtained from: Patient - Additonal information Additional information: 53-year-old gentleman presents with chief complaint of feeling bad for a few days and hyperglycemia. History is somewhat limited because of alcohol intoxication. He says that he has had chills and vomiting for a few days associated with cough and runny nose. States that his blood sugar has been too high and I asked him if he was taking his insulin and initially he said no but then later said he has been trying different kinds of insulin to see if he can get his blood sugar down. Subsequently he notes he is having some trouble sinking his CGM with his phone. 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:  Derm: Skin grafts - Present Medications Home Medications: Ambulatory Orders Medication Instructions Recorded Confirmed Losartan Potassium [Cozaar] 100 mg PO DAILY 01/04/23 11/24/23 Tamsulosin [Flomax] 0.4 mg PO QPM 01/21/23 11/24/23 ARIPiprazole [Aripiprazole] 15 mg PO DAILY 09/22/23 11/23/23 Doxepin [SINEquan] 10 mg PO QPM 09/22/23 11/24/23 EPINEPHrine [Epinephrine] 0.3 mg IJ PRN PRN 09/22/23 11/23/23 Gabapentin [Neurontin] 600 mg PO BID 09/22/23 11/24/23 Insulin Glargine [Lantus Solostar] 20 unit SUBQ QPM 09/22/23 11/23/23 Insulin Lispro [Insulin Lispro 0 - 12 unit SUBQ ACHS 09/22/23 11/23/23 Glenn Arturopen] Magnesium Oxide 400 mg PO BID 09/22/23 11/23/23 Naloxone HCl 4 mg NS PRN PRN 09/22/23 11/23/23 Ondansetron Odt [Zofran Odt] 4 mg PO Q6H PRN #15 tablet 09/28/23 11/23/23 Omeprazole 40 mg PO DAILY 10/16/23 11/24/23 Propranolol HCl 20 mg PO BID 10/16/23 11/24/23 Atorvastatin Calcium 40 mg PO HS 11/23/23 11/24/23 Dextroamphetamine/Amphetamine 20 mg PO BID 11/23/23 11/24/23 [Adderall 20 mg Tablet] HYDROmorphone [Dilaudid] See Rx Instructions .ROUTE 11/23/23 11/23/23 .COMPLEX PRN Metformin HCl 1,000 mg PO BID 11/23/23 11/24/23 Sertraline HCl 100 mg PO DAILY 11/23/23 11/24/23 hydrOXYzine HCL [Hydroxyzine HCl] 50 mg PO Q6HR PRN 11/23/23 11/24/23 LORazepam [Ativan] 1 mg PO TID #12 tablet 11/24/23 - Allergies Allergies/Adverse Reactions: Allergies Allergy/AdvReac Type Severity Reaction Status Date / Time penicillin G Allergy Severe hearing Verified 12/20/23 18:41 loss left ear povidone-iodine Allergy Severe Respiratory Verified 12/20/23 18:41 [From Betadine] soap * [From Betadine] Allergy Severe Respiratory Verified 12/20/23 18:41 adhesive Allergy Unknown Verified 12/20/23 18:41 iodine Allergy Unknown Verified 12/20/23 18:41 shellfish derived Allergy skin Verified 12/20/23 18:41 burning - Social History Does the pt smoke?: No Smoking Status: Never smoker Does the pt drink ETOH?: Yes ETOH Use: Liquor Does the pt have substance abuse?: No - Immunizations Immunizations are current?: Yes - POLST Patient has POLST: No POLST Status: Full Code PD ED PE NORMAL - Vitals Vital signs reviewed: Yes - General General: Alert and oriented X 3, Other (Cooperative but with slightly slurred speech) - HEENT HEENT: PERRL, EOMI (Nystagmus on lateral gaze in either direction), Other (He has a bruise on the upper lip he is mostly edentulous with dentures in place.) - Neck Neck: Supple, no meningeal sign, No bony TTP - Cardiac Cardiac: RRR, No murmur - Respiratory Respiratory: No respiratory distress, Clear bilaterally - Abdomen Abdomen: Non tender - Neuro Neuro: Alert and oriented X 3 Eye Opening: Spontaneous Motor: Obeys Commands Verbal: Oriented GCS Score: 15 - Psych Psych: Normal mood, Normal affect Results - Vitals Vitals: Vital Signs - 24 hr 12/20/23 12/20/23 18:30 18:40 Temperature 36.8 C Heart Rate 94 83 Respiratory 19 16 Rate Blood Pressure 136/76 H 128/86 H O2 Saturation 94 97 Oxygen O2 Source Room air - Labs Labs: Laboratory Tests 12/20/23 12/20/23 12/20/23 18:45 18:48 18:48 WBC 8.2 RBC 4.53 L Hgb 14.2 Hct 42.4 MCV 93.6 MCH 31.3 H MCHC 33.5 RDW 13.1 Plt Count 184 MPV 9.4 Neut # (Auto) 6.1 Lymph # (Auto) 1.2 L [place] # (Auto) 0.9 Eos # (Auto) 0.0 Baso # (Auto) 0.0 Absolute Nucleated RBC 0.00 Nucleated RBC % 0.0 VBG pH VBG pCO2 VBG pO2 VBG HCO3 VBG Total CO2 VBG O2 Saturation VBG Base Excess Sodium 127 L Potassium 3.6 Chloride 86 L Carbon Dioxide 23 Anion Gap 18.0 H BUN 14 Creatinine 0.7 Estimated GFR (MDRD) 117 Glucose 455 H Calcium 9.7 Phosphorus 3.6 Magnesium 1.3 L Total Bilirubin 1.3 H AST 40 ALT 37 Alkaline Phosphatase 88 Total Protein 7.6 Albumin 4.9 Globulin 2.7 Albumin/Globulin Ratio 1.8 Urine Color STRAW Urine Clarity CLEAR Urine pH 6.5 Ur Specific [place] <=1.005 Urine Protein NEGATIVE Urine Glucose (UA) >=1000 H Urine Ketones 15 H Urine Occult Blood NEGATIVE Urine Nitrite NEGATIVE Urine Bilirubin NEGATIVE Urine Urobilinogen 0.2 (NORMAL) Ur Leukocyte Esterase NEGATIVE Ur Microscopic Review NOT INDICATED Urine Culture Comments NOT INDICATED Ethyl Alcohol 224.8 Serum Ketones SMALL H 12/20/23 18:48 WBC RBC Hgb Hct MCV MCH MCHC RDW Plt Count MPV Neut # (Auto) Lymph # (Auto) [place] # (Auto) Eos # (Auto) Baso # (Auto) Absolute Nucleated RBC Nucleated RBC % VBG pH 7.361 VBG pCO2 34.6 L VBG pO2 48.1 H VBG HCO3 19.2 L VBG Total CO2 20.2 L VBG O2 Saturation 79.2 VBG Base Excess -5.4 L Sodium Potassium Chloride Carbon Dioxide Anion Gap BUN Creatinine Estimated GFR (MDRD) Glucose Calcium Phosphorus Magnesium Total Bilirubin AST ALT Alkaline Phosphatase Total Protein Albumin Globulin Albumin/Globulin Ratio Urine Color Urine Clarity Urine pH Ur Specific [place] Urine Protein Urine Glucose (UA) Urine Ketones Urine Occult Blood Urine Nitrite Urine Bilirubin Urine Urobilinogen Ur Leukocyte Esterase Ur Microscopic Review Urine Culture Comments Ethyl Alcohol Serum Ketones PD Medical Decision Making - ED course ED course: 53-year-old gentleman who comes in with a chief complaint of uncontrolled diabetes. It is unclear how he is managing his diabetes because he is intoxicated. Being intoxicated is his baseline unfortunately, and because of the combination of his uncontrolled diabetes and uncontrolled alcoholism I do believe he is potentially gravely disabled. Workup in the emergency department shows an unremarkable CBC, venous gas and CMP show no evidence of DKA. He does have hypomagnesemia which is repleted IV. He has pseudohyponatremia with hyperglycemia and a blood alcohol of 224. He is given IV fluids, thiamine, insulin, magnesium. Plan is to follow his blood sugars and control them and recheck blood alcohol approximately 1 AM he should be sober with consideration for DCR evaluation at that time. Departure - Departure Clinical Impression: Type 2 diabetes mellitus, uncontrolled, Alcohol intoxication Condition: Stable Forms: PCP List
[2023-12-20 18:53] LABS: BASOPHILS % (AUTO) 0.1 %; HCT - HEMATOCRIT 42.4 % (42.0-52.0); HGB - HEMOGLOBIN 14.2 g/dL (14.0-18.0); LYMPHOCYTES # (AUTO) 1.2 10^3/uL (1.5-3.5); LYMPHOCYTES % (AUTO) 14.2 %; MEAN CORPUSCULAR HEMOGLOBIN 31.3 pg (27.0-31.0); MEAN CORPUSCULAR HGB CONC 33.5 g/dL (32.0-36.0); MEAN CORPUSCULAR VOLUME 93.6 fL (80.0-94.0); MEAN PLATELET VOLUME 9.4 fL (7.4-11.4); MONOCYTES # (AUTO) 0.9 10^3/uL (0.0-1.0); MONOCYTES % (AUTO) 10.4 %; NEUTROPHILS # (AUTO) 6.1 10^3/uL (1.5-6.6); NEUTROPHILS % (AUTO) 75.1 %; PLT - PLATELET COUNT 184 10^3/uL (130-450); RED BLOOD COUNT 4.53 10^6/uL (4.70-6.10); RED CELL DISTRIBUTION WIDTH 13.1 % (12.0-15.0); WHITE BLOOD COUNT 8.2 x10^3/uL (4.8-10.8)
[2023-12-20 19:02] LABS: MAGNESIUM 1.3 mg/dL (1.7-2.3)
[2023-12-20 19:06] LABS: VBG PCO2 34.6 mmHg (41-51); VBG PH 7.361 (7.31-7.41); VBG PO2 48.1 mmHg (25-47)
[2023-12-20 19:07] LABS: VBG BASE EXCESS -5.4 mmol/L (-2 - +2); VBG HCO3 19.2 mmol/L (23-28); VBG OXYGEN SATURATION 79.2 % (60-80); VBG TOTAL CO2 20.2 mmol/L (24-29)
[2023-12-20 19:08] LABS: ETOH - ETHANOL 224.8 mg/dL; KETONES, SERUM (ACETEST) SMALL (NEGATIVE); PHOSPHORUS 3.6 mg/dL (2.5-5.0)
[2023-12-20] MEDS: THIAMINE INJ 100 MG in SODIUM CHLORIDE 0.9% 50 ML IV STA (19:08)
[2023-12-20] MEDS: SODIUM CHLORIDE 0.9% 1,000 ML IV STA (19:09)
[2023-12-20 19:10] LABS: BILIRUBIN,URINE NEGATIVE (NEGATIVE); GLUCOSE, URINE (UA) >=1000 mg/dL (NEGATIVE); KETONES,URINE (UA) 15 mg/dL (NEGATIVE); LEUKOCYTE ESTERASE, URINE NEGATIVE (NEGATIVE); NITRITE,URINE NEGATIVE (NEGATIVE); OCCULT BLOOD,URINE NEGATIVE (NEGATIVE); PH,URINE 6.5 PH (5.0-7.5); PROTEIN,URINE NEGATIVE (NEGATIVE); UROBILINOGEN,URINE 0.2 (NORMAL) E.U./dL (NORMAL)
[2023-12-20 19:12] LABS: CLARITY,URINE CLEAR (CLEAR)
[2023-12-20 19:15] LABS: ALBUMIN 4.9 g/dL (3.2-5.5); ALBUMIN/GLOBULIN RATIO 1.8 (1.0-2.2); ALKALINE PHOSPHATASE 88 IU/L (42-121); ALT ALANINE AMINOTRANSFERASE 37 IU/L (10-60); AST ASPARTATE AMINOTRANSFERASE 40 IU/L (10-42); BILIRUBIN,TOTAL 1.3 mg/dL (0.2-1.0); BUN - BLOOD UREA NITROGEN 14 mg/dL (6-20); CALCIUM 9.7 mg/dL (8.5-10.3); CARBON DIOXIDE - CO2 23 mmol/L (21-32); CHLORIDE 86 mmol/L (101-111); CREATININE 0.7 mg/dL (0.6-1.3); GFR - MDRD 117 (>89); GLUCOSE 455 mg/dL (74-104); POTASSIUM 3.6 mmol/L (3.5-4.5); SODIUM 127 mmol/L (135-145); TOTAL PROTEIN 7.6 g/dL (6.4-8.9)
[2023-12-20] MEDS: INSULIN REGULAR HUMAN 300 UNIT/3 ML VIAL IVP STA ×2 (19:32→20:35)
[2023-12-20] MEDS ORDERED: THIAMINE 100 MG/1 ML 2 ML MDV ONE (19:51)
[2023-12-20] MEDS: MAGNESIUM SULFATE 2 GRAM 2 GM/50 ML BAG IV ONE (19:53)
[2023-12-20 20:39] LABS: CORONAVIRUS 229E-RESP PCR NOT DETECTED; CORONAVIRUS HKU1-RESP PCR NOT DETECTED; CORONAVIRUS NL63-RESP PCR NOT DETECTED; CORONAVIRUS OC43-RESP PCR NOT DETECTED; HUMAN METAPNEUMOVIRUS NOT DETECTED; INFLUENZA A- RESP PCR PANEL NOT DETECTED; INFLUENZA B - RESP PCR PANEL NOT DETECTED; PARAINFLUENZA VIRUS 1 NOT DETECTED; PARAINFLUENZA VIRUS 2 NOT DETECTED; PARAINFLUENZA VIRUS 3 NOT DETECTED; PARAINFLUENZA VIRUS 4 NOT DETECTED; RHINOVIRUS/ENTEROVIRUS NOT DETECTED; RSV- RESP PCR PANEL NOT DETECTED; SARS-CoV-2 -RESP PCR PANEL NOT DETECTED
[2023-12-20] MEDS: INSULIN GLARGINE-YFGN 300 UNIT/3 ML PEN SUBQ SCH (20:39)
[2023-12-20 20:40] LABS: B. PARAPERTUSSIS- RESP PCR PAN NOT DETECTED; B. PERTUSSIS- RESP PCR PANEL NOT DETECTED; C. PNEUMONIAE- RESP PCR PANEL NOT DETECTED; M. PNEUMONIAE- RESP PCR PANEL NOT DETECTED
[2023-12-20] MEDS: PROPRANOLOL 10 MG TABLET PO SCH (21:44)
[2023-12-20] MEDS: metFORMIN 500 MG TABLET PO SCH (21:44)
[2023-12-20] MEDS ORDERED: GABAPENTIN 100 MG CAPSULE PO SCH (22:00)
[2023-12-20] MEDS: GABAPENTIN 300 MG CAPSULE PO SCH (22:17)
--- NOTE | 2023-12-21 03:06 | ED Physician Documentation ---
ED Addendum - Addendum Addendum: 12/21/23 03:05 Patient endorsed to me by Dr. Brandon awaiting repeat alcohol level and DCR evaluation for inability to care for himself due to his severe alcohol dependency under Sam's law. recommendations pending. 12/21/23 03:47 d/w Tere who will call back to interview. 12/21/23 04:46 Tere states patient is voluntary and would like inpatient treatment. [facility] or [facility] or [facility] might be good fit given his diabetes and pain pump. 12/21/23 05:50 SW consult placed. Plan to endorse to incoming daytime ED MD at 7am shift change.
[2023-12-21] MEDS: ARIPiprazole 5 MG TABLET PO SCH (08:08)
[2023-12-21] MEDS: ATORVASTATIN 40 MG TABLET PO SCH (08:08)
[2023-12-21] MEDS: LOSARTAN 50 MG TABLET PO SCH (08:08)
[2023-12-21] MEDS: PANTOPRAZOLE 40 MG TABLET PO SCH (08:08)
[2023-12-21] MEDS: TAMSULOSIN 0.4 MG CAPSULE PO SCH (08:09)
[2023-12-21] MEDS: MAGNESIUM OXIDE 400 MG TABLET PO SCH (08:09)
[2023-12-21] MEDS: SERTRALINE 50 MG TABLET PO SCH (08:09)
--- NOTE | 2023-12-21 12:12 | ED Physician Documentation ---
ED Addendum - Addendum Addendum: 12/21/23 12:09 The patient was signed out to me at change of shift, pending social work evaluation after presenting with hyperglycemia and alcohol intoxication in the setting of diabetes. The patient is a chronic alcoholic and it was felt that he should be evaluated for possible consideration for involuntary commitment under Sam's law. The DCR saw the patient overnight felt that the patient was a candidate for voluntary evaluation and so the case was passed to social work this morning. The patient was sober and while he stated he would be willing to go to detox, he really does not want to and at that point, it was felt that he was able to be discharged. The patient has been advised on getting help with his drinking, as well asThe need to take his diabetic meds as directed. Discussed the usual indications for return. Final impression: See original note Disposition: Home in stable and improved condition.
--- NOTE | 2023-12-21 12:44 | PHARMACY PROGRESS NOTE ---
- Best Possible Medication History Admit Date and Time: Processed by: Nursing Medications reviewed in ED?: Yes Medication History completed: Yes Patient Interview: Completed Secondary Source(s): Insurance records As the person ultimately responsible for medication therapy, providers are able to order a medication from an existing home medication list in [facility] via the "Reconcile Routine" prior to Confirmation of that medication by data support specialist. Such practice is discouraged except when the physician, in their clinical judgment, deems that a medical need exists for a medication without regard to previous use.
[2023-12-21 12:46] VITALS: BP 138/70; O2SAT 98
== END 2023-12-21 12:37 | disposition home or self-care (01) ==
LOC: ED 18:17
DX: E11.65 Type 2 diabetes mellitus with hyperglycemia (principal); E83.42 Hypomagnesemia; F10.229 Alcohol dependence with intoxication, unspecified; Y90.7 Blood alcohol level of 200-239 mg/100 ml; I10 Essential (primary) hypertension; E78.00 Pure hypercholesterolemia, unspecified; G47.30 Sleep apnea, unspecified; E11.42 Type 2 diabetes mellitus with diabetic polyneuropathy; E03.9 Hypothyroidism, unspecified; Z79.4 Long term (current) use of insulin; Z79.84 Long term (current) use of oral hypoglycemic drugs; Z79.899 Other long term (current) drug therapy
CPT/HCPCS: 36415; 80053; 81003; 82009; 82803; 83735; 84100; 85025; 87633; 99284; A9270; G0480; J1815; J3411; J7040; 81001; 82077; 87086

== ENCOUNTER 2023-12-23 16:00 | Emergency (ER) | payer MEDICARE ==
--- NOTE | 2023-12-23 17:27 | ED Physician Documentation ---
History of Present Illness - Stated complaint Stated Complaint: DETOX - Chief complaint Chief Complaint: General - Additonal information Additional information: 53-year-old male with history of poorly controlled type 2 diabetes, chronic pain with baclofen pump, chronic alcohol dependence, presents emergency department for desire to check in somewhere for alcohol detoxification. Patient says that he originally checked himself into [facility] where they said they could not take care of him or help him with his detox due to his implanted baclofen pump. Patient says that his last alcoholic beverage was today around 8 AM. 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:  Derm: Skin grafts - Present Medications Home Medications: Ambulatory Orders Medication Instructions Recorded Confirmed Losartan Potassium [Cozaar] 100 mg PO DAILY 01/04/23 12/21/23 Tamsulosin [Flomax] 0.4 mg PO QPM 01/21/23 12/23/23 ARIPiprazole [Aripiprazole] 15 mg PO DAILY 09/22/23 12/21/23 Doxepin [SINEquan] 10 mg PO QPM 09/22/23 12/21/23 EPINEPHrine [Epinephrine] 0.3 mg IJ PRN PRN 09/22/23 12/21/23 Gabapentin [Neurontin] 600 mg PO BID 09/22/23 12/21/23 Insulin Glargine [Lantus Solostar] 20 unit SUBQ QPM 09/22/23 12/23/23 Insulin Lispro [Insulin Lispro 0 - 12 unit SUBQ ACHS 09/22/23 12/23/23 Junior Reed] Magnesium Oxide 400 mg PO BID 09/22/23 12/21/23 Naloxone HCl 4 mg NS PRN PRN 09/22/23 12/21/23 Ondansetron Odt [Zofran Odt] 4 mg PO Q6H PRN #15 tablet 09/28/23 12/21/23 Omeprazole 40 mg PO DAILY 10/16/23 12/21/23 Propranolol HCl 20 mg PO BID 10/16/23 12/23/23 Atorvastatin Calcium 40 mg PO HS 11/23/23 12/23/23 HYDROmorphone [Dilaudid] See Rx Instructions .ROUTE 11/23/23 12/21/23 .COMPLEX PRN Metformin HCl 1,000 mg PO BID 11/23/23 12/23/23 Sertraline HCl 100 mg PO DAILY 11/23/23 12/21/23 hydrOXYzine HCL [Hydroxyzine HCl] 50 mg PO Q6HR PRN 11/23/23 11/24/23 LORazepam [Ativan] 1 mg PO TID #12 tablet 11/24/23 LORazepam [Ativan] See Rx Instructions .ROUTE .COMPLEX 12/21/23 12/21/23 cloNIDine [Catapres] 0.1 mg PO HS 12/21/23 12/23/23 - Allergies Allergies/Adverse Reactions: Allergies Allergy/AdvReac Type Severity Reaction Status Date / Time penicillin G Allergy Severe hearing Verified 12/23/23 17:28 loss left ear povidone-iodine Allergy Severe Respiratory Verified 12/23/23 17:28 [From Betadine] soap * [From Betadine] Allergy Severe Respiratory Verified 12/23/23 17:28 adhesive Allergy Unknown Verified 12/23/23 17:28 iodine Allergy Unknown Verified 12/23/23 17:28 shellfish derived Allergy skin Verified 12/23/23 17:28 burning - Social History Does the pt smoke?: No Smoking Status: Never smoker Does the pt drink ETOH?: Yes Does the pt have substance abuse?: No - Immunizations Immunizations are current?: Yes - POLST Patient has POLST: No POLST Status: Full Code PD ED PE NORMAL - Vitals Vital signs reviewed: Yes - General General: Alert and oriented X 3, No acute distress, Well developed/nourished - HEENT HEENT: PERRL, Other (bruising noted to upper lip) - Neck Neck: No bony TTP - Cardiac Cardiac: RRR, Other (tachy) - Respiratory Respiratory: No respiratory distress, Clear bilaterally - Abdomen Abdomen: Normal bowel sounds - Derm Derm: Normal color, Warm and dry, No rash, Other (bruising and swelling noted to upper lip) - Extremities Extremities: No deformity, No edema - Neuro Neuro: Alert and oriented X 3, systems requirements planner 2-12 intact, No motor deficit, No sensory deficit, Normal speech, Other (tremulous) Eye Opening: Spontaneous Motor: Obeys Commands Verbal: Oriented GCS Score: 15 - Psych Psych: Normal mood Results - Vitals Vitals: Vital Signs - 24 hr 12/23/23 12/23/23 12/23/23 16:16 20:27 22:00 Temperature 36.8 C 36.8 C Heart Rate 127 H 90 85 Respiratory 18 18 15 Rate Blood Pressure 152/108 H 160/90 H 166/94 H O2 Saturation 92 94 95 Oxygen O2 Source Room air - Labs Labs: Laboratory Tests 12/23/23 12/23/23 12/23/23 17:20 17:20 17:41 WBC 3.8 L RBC 3.81 L Hgb 12.0 L Hct 36.5 L MCV 95.8 H MCH 31.5 H MCHC 32.9 RDW 14.1 Plt Count 151 MPV 9.5 Neut # (Auto) 1.6 Lymph # (Auto) 1.5 [place] # (Auto) 0.6 Eos # (Auto) 0.1 Baso # (Auto) 0.0 Absolute Nucleated RBC 0.00 Nucleated RBC % 0.0 Sodium 140 Potassium 3.8 Chloride 96 L Carbon Dioxide 32 Anion Gap 12.0 BUN 9 Creatinine 0.5 L Estimated GFR (MDRD) 173 Glucose 309 H Calcium 9.3 Magnesium 1.1 L Total Bilirubin 0.5 AST 37 ALT 37 Alkaline Phosphatase 107 Total Protein 7.3 Albumin 4.6 Globulin 2.7 Albumin/Globulin Ratio 1.7 Lipase 11 Urine Color Urine Clarity Urine pH Ur Specific [place] Urine Protein Urine Glucose (UA) Urine Ketones Urine Occult Blood Urine Nitrite Urine Bilirubin Urine Urobilinogen Ur Leukocyte Esterase Ur Microscopic Review Urine Culture Comments Urine Opiates Screen POSITIVE H Ur Buprenorphine Scrn NEGATIVE Ur Oxycodone Screen NEGATIVE Urine Methadone Screen NEGATIVE Ur Barbiturates Screen NEGATIVE Ur Tricyclics Screen NEGATIVE Ur Phencyclidine Scrn NEGATIVE Ur Amphetamine Screen NEGATIVE U Methamphetamines Scrn NEGATIVE U Benzodiazepines Scrn NEGATIVE Urine Cocaine Screen NEGATIVE U Cannabinoids Screen NEGATIVE Ur Drug Screen Comment CUTOFF CONC BELOW: Ethyl Alcohol 98.7 12/23/23 12/23/23 17:41 22:08 WBC RBC Hgb Hct MCV MCH MCHC RDW Plt Count MPV Neut # (Auto) Lymph # (Auto) [place] # (Auto) Eos # (Auto) Baso # (Auto) Absolute Nucleated RBC Nucleated RBC % Sodium Potassium Chloride Carbon Dioxide Anion Gap BUN Creatinine Estimated GFR (MDRD) Glucose Calcium Magnesium 1.6 L Total Bilirubin AST ALT Alkaline Phosphatase Total Protein Albumin Globulin Albumin/Globulin Ratio Lipase Urine Color YELLOW Urine Clarity CLEAR Urine pH 7.0 Ur Specific [place] 1.015 Urine Protein TRACE Urine Glucose (UA) >=1000 H Urine Ketones NEGATIVE Urine Occult Blood NEGATIVE Urine Nitrite NEGATIVE Urine Bilirubin NEGATIVE Urine Urobilinogen 1 (NORMAL) Ur Leukocyte Esterase NEGATIVE Ur Microscopic Review NOT INDICATED Urine Culture Comments NOT INDICATED Urine Opiates Screen Ur Buprenorphine Scrn Ur Oxycodone Screen Urine Methadone Screen Ur Barbiturates Screen Ur Tricyclics Screen Ur Phencyclidine Scrn Ur Amphetamine Screen U Methamphetamines Scrn U Benzodiazepines Scrn Urine Cocaine Screen U Cannabinoids Screen Ur Drug Screen Comment Ethyl Alcohol PD Medical Decision Making - ED course ED course: 53-year-old male presents emergency department for detox. Patient was here couple days ago they offered to help with detox then but patient ultimately declined. He attempted to self check into [facility] but because he has a baclofen pump and poorly controlled type 2 diabetes they ended up bringing him to our emergency department. Labs are collected, WBC 3.8, hemoglobin 12.0, hematocrit 36.5. Glucose is 309, patient is quite hypomagnesemic at 1.1. He was given 2 g IV magnesium. Patient's EtOH level is 98.7 and he did test positive for opiates. Since patient has been here he was received IV magnesium, IV thiamine, and 1 L of IV fluids as well as Ativan and he is showing minimal withdrawal symptoms at this point in time, last CIWA was around 9. Patient remains calm and cooperative ED boarder orders have been placed patient's routine scheduled medications that he takes at home have also been placed and updated by nursing staff greatly appreciated. He will be boarded here overnight. I have given report to Dr. Gupta social work will round on the patient tomorrow to come up with a safe discharge plan in terms of getting him to a detox unit or not. Departure - Departure Disposition: ED Place in Observation Clinical Impression: Alcohol abuse, Hypomagnesemia Alcohol withdrawal Qualifiers: Complication of substance-induced condition: with unspecified complication Qualified Code(s): F10.939 - Alcohol use, unspecified with withdrawal, unspecified Type 2 diabetes mellitus with hyperglycemia Qualifiers: Diabetes mellitus neurodiagnostic technologist insulin use: with neurodiagnostic technologist use Qualified Code(s): E11.65 - Type 2 diabetes mellitus with hyperglycemia; Z79.4 - FPC (current) use of insulin Forms: PCP List
[2023-12-23 17:30] LABS: BASOPHILS % (AUTO) 0.5 %; EOSINOPHILS # (AUTO) 0.1 10^3/uL (0.0-0.7); EOSINOPHILS % (AUTO) 1.6 %; HCT - HEMATOCRIT 36.5 % (42.0-52.0); LYMPHOCYTES # (AUTO) 1.5 10^3/uL (1.5-3.5); LYMPHOCYTES % (AUTO) 38.7 %; MEAN CORPUSCULAR HEMOGLOBIN 31.5 pg (27.0-31.0); MEAN CORPUSCULAR HGB CONC 32.9 g/dL (32.0-36.0); MEAN CORPUSCULAR VOLUME 95.8 fL (80.0-94.0); MEAN PLATELET VOLUME 9.5 fL (7.4-11.4); MONOCYTES # (AUTO) 0.6 10^3/uL (0.0-1.0); MONOCYTES % (AUTO) 16.7 %; NEUTROPHILS # (AUTO) 1.6 10^3/uL (1.5-6.6); NEUTROPHILS % (AUTO) 42.2 %; PLT - PLATELET COUNT 151 10^3/uL (130-450); RED BLOOD COUNT 3.81 10^6/uL (4.70-6.10); RED CELL DISTRIBUTION WIDTH 14.1 % (12.0-15.0); WHITE BLOOD COUNT 3.8 x10^3/uL (4.8-10.8)
[2023-12-23] MEDS: SODIUM CHLORIDE 0.9% 1,000 ML IV ONE (17:30)
[2023-12-23] MEDS: ONDANSETRON 4 MG/2 ML VIAL IVP STA (17:37)
[2023-12-23 17:46] LABS: ALBUMIN 4.6 g/dL (3.2-5.5); ALBUMIN/GLOBULIN RATIO 1.7 (1.0-2.2); BILIRUBIN,TOTAL 0.5 mg/dL (0.2-1.0); CALCIUM 9.3 mg/dL (8.5-10.3); CREATININE 0.5 mg/dL (0.6-1.3); ETOH - ETHANOL 98.7 mg/dL; MAGNESIUM 1.1 mg/dL (1.7-2.3); POTASSIUM 3.8 mmol/L (3.5-4.5); TOTAL PROTEIN 7.3 g/dL (6.4-8.9)
[2023-12-23 17:52] LABS: BILIRUBIN,URINE NEGATIVE (NEGATIVE); GLUCOSE, URINE (UA) >=1000 mg/dL (NEGATIVE); KETONES,URINE (UA) NEGATIVE (NEGATIVE); LEUKOCYTE ESTERASE, URINE NEGATIVE (NEGATIVE); NITRITE,URINE NEGATIVE (NEGATIVE); OCCULT BLOOD,URINE NEGATIVE (NEGATIVE); PROTEIN,URINE TRACE mg/dL (NEGATIVE); UROBILINOGEN,URINE 1 (NORMAL) E.U./dL (NORMAL)
[2023-12-23 17:53] LABS: CLARITY,URINE CLEAR (CLEAR)
[2023-12-23 18:03] LABS: AMPHETAMINE SCREEN,URINE NEGATIVE (NEGATIVE); BARBITURATE SCREEN,UR NEGATIVE (NEGATIVE); BENZODIAZEPINES SCREEN, URINE NEGATIVE (NEGATIVE); BUPRENORPHINE SCREEN, URINE NEGATIVE (NEGATIVE); COCAINE SCREEN URINE NEGATIVE (NEGATIVE); METHADONE SCREEN, URINE NEGATIVE (NEGATIVE); METHAMPHETAMINES SCREEN, URINE NEGATIVE (NEGATIVE); OPIATE SCREEN, URINE POSITIVE (NEGATIVE); OXYCODONE SCREEN, URINE NEGATIVE (NEGATIVE); THC CANNABINOID SCREEN, URINE NEGATIVE (NEGATIVE); TRICYCLIC ANTIDEPRESSANT,URINE NEGATIVE (NEGATIVE)
[2023-12-23] MEDS: MAGNESIUM SULFATE 2 GRAM 2 GM/50 ML BAG IV ONE (19:49)
[2023-12-23] MEDS: MAGNESIUM SULFATE 1 GM/2 ML VIAL IVP STA (20:09)
[2023-12-23] MEDS: LORazepam 2 MG/ML VIAL IVP STA ×3 (20:25→22:30)
[2023-12-23] MEDS: THIAMINE INJ 100 MG, MAGNESIUM SULFATE 2 GM, MULTIVITAMIN 10 ML, FOLIC ACID INJ 1 MG in... IV STA (20:25)
[2023-12-23] MEDS ORDERED: THIAMINE 100 MG/1 ML 2 ML MDV ONE (20:38)
[2023-12-23] MEDS: THIAMINE INJ 100 MG in SODIUM CHLORIDE 0.9% 50 ML IV STA (20:39)
[2023-12-23] MEDS: metFORMIN 500 MG TABLET PO SCH (23:28)
[2023-12-23] MEDS: ATORVASTATIN 40 MG TABLET PO STA (23:28)
[2023-12-23] MEDS: PROPRANOLOL 10 MG TABLET PO SCH (23:29)
[2023-12-24] MEDS: ONDANSETRON 4 MG/2 ML VIAL IVP PRN (04:34)
[2023-12-24] MEDS: LORazepam 2 MG/ML VIAL IVP STA ×4 (04:34→22:11)
[2023-12-24 05:35] LABS: BASOPHILS % (AUTO) 0.6 %; EOSINOPHILS # (AUTO) 0.1 10^3/uL (0.0-0.7); EOSINOPHILS % (AUTO) 3.2 %; HCT - HEMATOCRIT 34.4 % (42.0-52.0); HGB - HEMOGLOBIN 11.2 g/dL (14.0-18.0); LYMPHOCYTES # (AUTO) 1.1 10^3/uL (1.5-3.5); MEAN CORPUSCULAR HEMOGLOBIN 31.5 pg (27.0-31.0); MEAN CORPUSCULAR HGB CONC 32.6 g/dL (32.0-36.0); MEAN CORPUSCULAR VOLUME 96.6 fL (80.0-94.0); MEAN PLATELET VOLUME 9.5 fL (7.4-11.4); MONOCYTES # (AUTO) 0.6 10^3/uL (0.0-1.0); MONOCYTES % (AUTO) 19.7 %; NEUTROPHILS # (AUTO) 1.3 10^3/uL (1.5-6.6); NEUTROPHILS % (AUTO) 42.2 %; PLT - PLATELET COUNT 140 10^3/uL (130-450); RED BLOOD COUNT 3.56 10^6/uL (4.70-6.10); RED CELL DISTRIBUTION WIDTH 13.8 % (12.0-15.0); WHITE BLOOD COUNT 3.1 x10^3/uL (4.8-10.8)
[2023-12-24 05:46] LABS: CALCIUM 8.8 mg/dL (8.5-10.3); CREATININE 0.5 mg/dL (0.6-1.3); POTASSIUM 4.1 mmol/L (3.5-4.5)
[2023-12-24] MEDS: PANTOPRAZOLE 40 MG TABLET PO SCH (06:36)
[2023-12-24] MEDS: chlordiazePOXIDE 25 MG CAPSULE PO STA (07:08)
[2023-12-24] MEDS: TAMSULOSIN 0.4 MG CAPSULE PO SCH (09:35)
[2023-12-24] MEDS: ENOXAPARIN 100 MG/ML SYRINGE SUBQ SCH (09:37)
[2023-12-24] MEDS: PHENobarbital 65 MG/ML VIAL IM STA (10:06)
--- NOTE | 2023-12-24 13:48 | ED Physician Documentation ---
ED Addendum - Addendum Addendum: 12/24/23 13:48 Denies continuing to for social work. Continues to want detox. Has been given Ativan and phenobarb during my shift. No other acute changes.
[2023-12-24] MEDS: INSULIN GLARGINE-YFGN 300 UNIT/3 ML PEN SUBQ SCH (21:13)
[2023-12-25] MEDS: LORazepam 2 MG/ML VIAL IVP STA ×3 (01:06→14:34)
[2023-12-25] MEDS: PHENobarbital 65 MG/ML VIAL IM STA (02:19)
--- NOTE | 2023-12-25 08:49 | ED Physician Documentation ---
ED Addendum - Addendum Addendum: 12/25/23 Patient care assumed at shift change. Patient is awaiting placement for alcohol detox. Social work is working on the case. This morning patient CIWA score was 11 so given a dose of Ativan. Blood pressure elevated but has not yet had his morning propranolol. Pt requiring intermittent doses of ativan throughout day for alcohol withdrawal. SW unavailable for much of the day and no accepting facility has been found for pt. Signed out to oncoming provider at shift change.
[2023-12-25] MEDS: ACETAMINOPHEN 500 MG TABLET PO PRN (14:34)
[2023-12-25] MEDS: LORazepam 1 MG TABLET PO STA (17:11)
[2023-12-25] MEDS: ACETAMINOPHEN 325 MG TABLET PO STA (21:52)
[2023-12-26] MEDS: KETOROLAC 30 MG/ML VIAL IVP STA (02:06)
[2023-12-26] MEDS: LORazepam 2 MG/ML VIAL IVP STA (05:28)
[2023-12-26] MEDS: LORazepam 1 MG TABLET PO STA ×2 (09:16→13:51)
--- NOTE | 2023-12-26 10:07 | PHARMACY PROGRESS NOTE ---
- Best Possible Medication History Admit Date and Time: Processed by: Nursing Medications reviewed in ED?: Yes Medication History completed: Yes Patient Interview: Completed (COMPLETED BY PHARMACY AND NURSING) Secondary Source(s): Physician records, Pharmacy records As the person ultimately responsible for medication therapy, providers are able to order a medication from an existing home medication list in [facility] via the "Reconcile Routine" prior to Confirmation of that medication by patient support specialist. Such practice is discouraged except when the physician, in their clinical judgment, deems that a medical need exists for a medication without regard to previous use.
[2023-12-26] MEDS: ACETAMINOPHEN 500 MG TABLET PO STA (17:07)
[2023-12-26] MEDS: LORazepam 0.5 MG TABLET PO PRN (18:43)
--- NOTE | 2023-12-26 19:59 | ED Physician Documentation ---
ED Addendum - Addendum Addendum: 12/26/23 19:59 He continues to board in the emergency department pending potential placement at a detox facility. He is getting as needed Ativan and otherwise appears stable. Please see oncology social worker notes for further details.
--- NOTE | 2023-12-27 06:59 | ED Physician Documentation ---
ED Addendum - Addendum Addendum: 12/27/23 06:59 No acute events overnight. Care turned over to incoming daytime EDMD at 7 AM shift change.
--- NOTE | 2023-12-27 09:18 | ED Physician Documentation ---
ED Addendum - Addendum Addendum: 12/27/23 Patient care assumed at shift change. Patient has been boarding in the [facility] department awaiting acceptance by detox facility. Barrier is that he has a pain pump and most facilities have declined. Social work has been working on his case and likely plan is for discharge today. 12/27/23 15:02 No acute events during my shift. Plan for ride pickup at 1600. Signed out to oncoming provider at shift change.
[2023-12-27 16:34] VITALS: BP 150/100; O2SAT 100
--- NOTE | 2023-12-27 16:46 | ED Physician Documentation ---
ED Addendum - Addendum Addendum: 12/27/23 16:46 Patient going home at this point, I community clinical social work aide is involved with a plan for community resources. Disposition: Discharged home Condition: Stable Diagnosis: 1. Alcohol abuse
== END 2023-12-27 16:50 | disposition home or self-care (01) ==
LOC: ED 16:00
DX: F10.939 Alcohol use, unspecified with withdrawal, unspecified (principal); E11.65 Type 2 diabetes mellitus with hyperglycemia; E83.42 Hypomagnesemia; Z75.1 Person awaiting admission to adequate facility elsewhere; I10 Essential (primary) hypertension; G47.30 Sleep apnea, unspecified; E11.42 Type 2 diabetes mellitus with diabetic polyneuropathy; E03.9 Hypothyroidism, unspecified; Z79.4 Long term (current) use of insulin; Z79.84 Long term (current) use of oral hypoglycemic drugs; Z79.899 Other long term (current) drug therapy; Z96.89 Presence of other specified functional implants
CPT/HCPCS: 36415; 80048; 80053; 80306; 81003; 83690; 83735; 85025; 96365; 96366; 96368; 96372; 96375; 96376; 99285; A9270; G0480; J1650; J1815; J2060; J2560; J3411; J7040; J8499; 81001; 82077; 87086

== ENCOUNTER 2024-01-02 19:47 | Outpatient (CLI) | payer MEDICARE | END 2024-01-02 23:59 | disposition critical access hospital (66) | LOC: EMS 19:47 | DX: F10.90 Alcohol use, unspecified, uncomplicated (principal); R41.82 Altered mental status, unspecified; R53.81 Other malaise; E11.65 Type 2 diabetes mellitus with hyperglycemia | CPT/HCPCS: A0425; A0427 ==

== ENCOUNTER 2024-01-02 20:01 | Emergency (ER) | payer MEDICARE ==
--- NOTE | 2024-01-02 20:01 | ED Physician Documentation ---
History of Present Illness - Stated complaint Stated Complaint: ETOH/CP - History obtained from History obtained from: Patient, EMS - Additonal information Additional information: BIBA. HPI from EMS as well as patient. Patient has been drinking heavily today (specifically vodka since earlier this afternoon). He called the nurse advice hotline this evening; between EMS report and the patient, it is not clear what prompted him to do so, but because the person feeling the call was reportedly concerned about patient's description of how intoxicated he was, 911 was called by whoever fielded the call from the nurse advice hotline. Patient does readily admit to alcoholism, "I cannot stop drinking" (per patient). This patient is familiar to this emergency department due to frequent ED visits for alcoholism and/or alcohol-related complaints. He strongly denies SI, HI. EMS also notes that patient reports that he fell yesterday, struck his head. Patient confirms this, says he did not have LOC, but is complaining of bifrontal headache. On review of systems, he also is complaining of a few months of dyspnea, particularly dyspnea on exertion. Also complains of a few months of chest pain. Patient received 4 mg IV Zofran en route by EMS. Fingerstick blood sugar for EMS was 303; patient is a diabetic. Patient does not take any blood-thinning medications. Review of Systems Cardiac: reports: Chest pain / pressure. denies: Palpitations Respiratory: reports: Dyspnea. denies: Cough GI: reports: Nausea. denies: Abdominal Pain, Vomiting Neurologic: reports: Headache. denies: Generalized weakness, Focal weakness, Numbness PD PAST MEDICAL HISTORY - Past Medical History Past Medical History: Yes Endocrine/Autoimmune: Type 1 diabetes - Present Medications Home Medications: Ambulatory Orders Medication Instructions Recorded Confirmed Losartan Potassium [Cozaar] 100 mg PO DAILY 01/04/23 01/03/24 Tamsulosin [Flomax] 0.4 mg PO QPM 01/21/23 01/03/24 ARIPiprazole [Aripiprazole] 15 mg PO DAILY 09/22/23 01/03/24 Doxepin [SINEquan] 10 mg PO QPM 09/22/23 01/03/24 Gabapentin [Neurontin] 600 mg PO BID 09/22/23 01/03/24 Insulin Glargine [Lantus Solostar] 20 unit SUBQ QPM 09/22/23 01/03/24 Insulin Lispro [Insulin Lispro 0 - 12 unit SUBQ ACHS 09/22/23 01/03/24 Glenn Brianna] Magnesium Oxide 400 mg PO BID 09/22/23 01/03/24 Naloxone HCl 4 mg NS PRN PRN 09/22/23 01/03/24 Ondansetron Odt [Zofran Odt] 4 mg PO Q6H PRN #15 tablet 09/28/23 12/25/23 Omeprazole 40 mg PO DAILY 10/16/23 01/03/24 Propranolol HCl 20 mg PO BID 10/16/23 01/03/24 Atorvastatin Calcium 40 mg PO HS 11/23/23 01/03/24 Metformin HCl 1,000 mg PO BID 11/23/23 01/03/24 Sertraline HCl 100 mg PO DAILY 11/23/23 01/03/24 hydrOXYzine HCL [Hydroxyzine HCl] 50 mg PO Q6HR PRN 11/23/23 01/03/24 cloNIDine [Catapres] 0.1 mg PO HS 12/21/23 01/03/24 - Allergies Allergies/Adverse Reactions: Allergies Allergy/AdvReac Type Severity Reaction Status Date / Time penicillin G Allergy Severe hearing Verified 01/03/24 11:28 loss left ear povidone-iodine Allergy Severe Respiratory Verified 01/03/24 11:28 [From Betadine] soap * [From Betadine] Allergy Severe Respiratory Verified 01/03/24 11:28 adhesive Allergy Unknown Verified 01/03/24 11:28 iodine Allergy Unknown Verified 01/03/24 11:28 shellfish derived Allergy skin Verified 01/03/24 11:28 burning PD ED PE NORMAL - Vitals Vital signs reviewed: Yes - General General: Alert and oriented X 3, No acute distress, Well developed/nourished - HEENT HEENT: Atraumatic, PERRL, EOMI, Moist mucous membranes - Neck Neck: Supple, no meningeal sign - Cardiac Cardiac: No murmur - Respiratory Respiratory: No respiratory distress, Clear bilaterally - Abdomen Abdomen: Soft, Non tender - Derm Derm: Normal color, Warm and dry - Extremities Extremities: No edema - Neuro Neuro: Alert and oriented X 3, 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 Relevant findings are: Rate: Rate (enter#) (111), Tachy Rhythm: Sinus tachycardia [place]: LAD Intervals: Normal [place] QRS: Normal Ischemia: Normal ST segments Other comments: Other comments (artifact inferior leads that does not preclude my interpretation) - Labs Labs: Laboratory Tests 01/02/24 01/02/24 01/02/24 20:26 20:26 20:26 WBC 4.0 L RBC 3.68 L Hgb 11.9 L Hct 35.9 L MCV 97.6 H MCH 32.3 H MCHC 33.1 RDW 13.9 Plt Count 309 MPV 8.7 Neut # (Auto) 1.1 L Lymph # (Auto) 2.4 [place] # (Auto) 0.4 Eos # (Auto) 0.1 Baso # (Auto) 0.1 Absolute Nucleated RBC 0.00 Nucleated RBC % 0.0 Sodium 135 Potassium 4.2 Chloride 97 L Carbon Dioxide 31 Anion Gap 7.0 BUN 12 Creatinine 0.6 Estimated GFR (MDRD) 140 Glucose 255 H Calcium 9.0 Total Bilirubin 0.3 AST 61 H ALT 66 H Alkaline Phosphatase 86 Troponin I High Sens 5.5 Total Protein 6.9 Albumin 4.3 Globulin 2.6 Albumin/Globulin Ratio 1.7 Lipase 14 Urine Color Urine Clarity Urine pH Ur Specific [place] Urine Protein Urine Glucose (UA) Urine Ketones Urine Occult Blood Urine Nitrite Urine Bilirubin Urine Urobilinogen Ur Leukocyte Esterase Ur Microscopic Review Urine Culture Comments Urine Opiates Screen Ur Buprenorphine Scrn Ur Oxycodone Screen Urine Methadone Screen Ur Barbiturates Screen Ur Tricyclics Screen Ur Phencyclidine Scrn Ur Amphetamine Screen U Methamphetamines Scrn U Benzodiazepines Scrn Urine Cocaine Screen U Cannabinoids Screen Ur Drug Screen Comment Ethyl Alcohol 321.6 01/02/24 21:09 WBC RBC Hgb Hct MCV MCH MCHC RDW Plt Count MPV Neut # (Auto) Lymph # (Auto) [place] # (Auto) Eos # (Auto) Baso # (Auto) Absolute Nucleated RBC Nucleated RBC % Sodium Potassium Chloride Carbon Dioxide Anion Gap BUN Creatinine Estimated GFR (MDRD) Glucose Calcium Total Bilirubin AST ALT Alkaline Phosphatase Troponin I High Sens Total Protein Albumin Globulin Albumin/Globulin Ratio Lipase Urine Color YELLOW Urine Clarity CLEAR Urine pH 7.5 Ur Specific [place] 1.010 Urine Protein NEGATIVE Urine Glucose (UA) >=1000 H Urine Ketones TRACE Urine Occult Blood NEGATIVE Urine Nitrite NEGATIVE Urine Bilirubin NEGATIVE Urine Urobilinogen 1 (NORMAL) Ur Leukocyte Esterase NEGATIVE Ur Microscopic Review NOT INDICATED Urine Culture Comments NOT INDICATED Urine Opiates Screen POSITIVE H Ur Buprenorphine Scrn NEGATIVE Ur Oxycodone Screen NEGATIVE Urine Methadone Screen NEGATIVE Ur Barbiturates Screen POSITIVE H Ur Tricyclics Screen NEGATIVE Ur Phencyclidine Scrn NEGATIVE Ur Amphetamine Screen NEGATIVE U Methamphetamines Scrn NEGATIVE U Benzodiazepines Scrn POSITIVE H Urine Cocaine Screen NEGATIVE U Cannabinoids Screen NEGATIVE Ur Drug Screen Comment CUTOFF CONC BELOW: Ethyl Alcohol - Rads (name of study) chest xray Relevant Findings:: Prelim report reviewed, See rad report CTH Relevant Findings:: Prelim report reviewed, See rad report PD Medical Decision Making - ED course Complexity details: reviewed results, re-evaluated patient, considered differential, d/w patient ED course: The most striking (though not unexpected) finding on poly's blood tests is serum ethanol level of 0.321. Other incidental/noncontributory findings on blood tests include mild leukopenia (WBC 4.0), hyperglycemia (glucose 255), minimally elevated AST and ALT. Urine drug screen is positive for opiates, barbiturates, and benzodiazepines. High-sensitivity troponin is within normal limits. No concerning findings on CT head, chest x-ray, EKG. Patient intermittently was complaining of feeling anxious and shaky during ED stay. At times, he exhibited tremulousness that was not observed when I was outside of the room (but able to see patient from my position in the hallway or through the open blinds in the window from the hallway to bed 4); I also note that he was not tremulous when asleep (sleeping on my last two reassessments prior to d/c), and (when awake) the tremulousness was limited to one or two extremities and not generalized. Thus, I did not observe any convincing/overt signs of impending dangerous alcohol withdrawal. I did order a few doses of lorazepam during his stay, as the patient is an alcoholic and although not convincingly tremulousness, it is reasonable to suspect he is having some degree of anxiety as the alcohol wears off during his stay. Once the tests were resulted, I discussed results with patient. I explained to him that I would be discharging him home and that he needs to pursue follow-up for treatment of his alcoholism. He tells me that finding a facility that will take him in the inpatient setting for alcohol detox has been quite challenging but that he will continue to work on this. Departure - Departure Disposition: 01 Home, Self Care Clinical Impression: Alcoholism Condition: Good Instructions: ED Alcohol Intoxication, ED Alcohol Abuse Comments: Contact your primary care provider in the morning when the office is next open to arrange for immediate follow-up/reevaluation. Forms: PCP List Discharge Date/Time: 01/03/24 06:15
[2024-01-02] MEDS: SODIUM CHLORIDE 0.9% 1,000 ML IV STA ×2 (20:21→21:56)
[2024-01-02 20:36] LABS: BASOPHILS # (AUTO) 0.1 10^3/uL (0.0-0.1); BASOPHILS % (AUTO) 1.2 %; EOSINOPHILS # (AUTO) 0.1 10^3/uL (0.0-0.7); HCT - HEMATOCRIT 35.9 % (42.0-52.0); HGB - HEMOGLOBIN 11.9 g/dL (14.0-18.0); LYMPHOCYTES # (AUTO) 2.4 10^3/uL (1.5-3.5); LYMPHOCYTES % (AUTO) 59.9 %; MEAN CORPUSCULAR HEMOGLOBIN 32.3 pg (27.0-31.0); MEAN CORPUSCULAR HGB CONC 33.1 g/dL (32.0-36.0); MEAN CORPUSCULAR VOLUME 97.6 fL (80.0-94.0); MEAN PLATELET VOLUME 8.7 fL (7.4-11.4); MONOCYTES # (AUTO) 0.4 10^3/uL (0.0-1.0); MONOCYTES % (AUTO) 10.6 %; NEUTROPHILS # (AUTO) 1.1 10^3/uL (1.5-6.6); NEUTROPHILS % (AUTO) 26.3 %; PLT - PLATELET COUNT 309 10^3/uL (130-450); RED BLOOD COUNT 3.68 10^6/uL (4.70-6.10); RED CELL DISTRIBUTION WIDTH 13.9 % (12.0-15.0)
[2024-01-02 20:53] LABS: ALBUMIN 4.3 g/dL (3.2-5.5); ALBUMIN/GLOBULIN RATIO 1.7 (1.0-2.2); BILIRUBIN,TOTAL 0.3 mg/dL (0.2-1.0); CREATININE 0.6 mg/dL (0.6-1.3); ETOH - ETHANOL 321.6 mg/dL; POTASSIUM 4.2 mmol/L (3.5-4.5); TOTAL PROTEIN 6.9 g/dL (6.4-8.9)
[2024-01-02 21:21] LABS: BILIRUBIN,URINE NEGATIVE (NEGATIVE); GLUCOSE, URINE (UA) >=1000 mg/dL (NEGATIVE); KETONES,URINE (UA) TRACE mg/dL (NEGATIVE); LEUKOCYTE ESTERASE, URINE NEGATIVE (NEGATIVE); NITRITE,URINE NEGATIVE (NEGATIVE); OCCULT BLOOD,URINE NEGATIVE (NEGATIVE); PH,URINE 7.5 PH (5.0-7.5); PROTEIN,URINE NEGATIVE (NEGATIVE); UROBILINOGEN,URINE 1 (NORMAL) E.U./dL (NORMAL)
[2024-01-02 21:26] LABS: CLARITY,URINE CLEAR (CLEAR)
[2024-01-02 21:39] LABS: AMPHETAMINE SCREEN,URINE NEGATIVE (NEGATIVE); BARBITURATE SCREEN,UR POSITIVE (NEGATIVE); BENZODIAZEPINES SCREEN, URINE POSITIVE (NEGATIVE); BUPRENORPHINE SCREEN, URINE NEGATIVE (NEGATIVE); COCAINE SCREEN URINE NEGATIVE (NEGATIVE); METHADONE SCREEN, URINE NEGATIVE (NEGATIVE); METHAMPHETAMINES SCREEN, URINE NEGATIVE (NEGATIVE); OPIATE SCREEN, URINE POSITIVE (NEGATIVE); OXYCODONE SCREEN, URINE NEGATIVE (NEGATIVE); THC CANNABINOID SCREEN, URINE NEGATIVE (NEGATIVE); TRICYCLIC ANTIDEPRESSANT,URINE NEGATIVE (NEGATIVE)
[2024-01-02] MEDS: ONDANSETRON 4 MG/2 ML VIAL IVP STA (21:56)
--- NOTE | 2024-01-02 22:03 | XRAY Report ---
PROCEDURE: Chest 2V INDICATIONS: dyspnea, chest pain TECHNIQUE: 2 views of the chest were acquired. COMPARISON: None. FINDINGS: Surgical changes and devices: Spinal stimulator leads. Lungs and pleura: No pleural effusions or pneumothorax. Lungs are clear. Mediastinum: Mediastinal contours appear normal. Heart size is normal. Bones and chest wall: No suspicious bony lesions. Overlying soft tissues appear unremarkable. IMPRESSION: No acute cardiopulmonary process. Reviewed by: Haile Bailey MD on 01/02/2024 10:01 PM PDT Approved by: Haile Bailey MD on 01/02/2024 10:01 PM PDT Station ID: [id number]
--- NOTE | 2024-01-02 22:11 | CT Report ---
PROCEDURE: Head WO INDICATIONS: fell yesterday, [place] TECHNIQUE: Noncontrast 4.5 mm thick angled axial sections acquired from the foramen magnum to the vertex. For r adiation dose reduction, the following was used: automated exposure control, adjustment of mA and/or kV according to patient size. COMPARISON: 11/23/2023. FINDINGS: Image quality: Excellent. CSF spaces: Basal cisterns are patent. No extra-axial fluid collections. Ventricles are normal in size and shape. Brain: No midline shift. No intracranial masses or hemorrhage. Marr-white matter interface is norm al. Skull and face: Calvarium and visualized facial bones are intact, without suspicious lesions. Sinuses: Visualized sinuses and mastoids are clear. IMPRESSION: No acute intracranial pathology. Reviewed by: Haile Bailey MD on 01/02/2024 10:09 PM PDT Approved by: Haile Bailey MD on 01/02/2024 10:09 PM PDT Station ID: [id number]
[2024-01-02] MEDS: LORazepam 2 MG/ML VIAL IVP STA (22:56)
[2024-01-03] MEDS: ACETAMINOPHEN 325 MG TABLET PO STA (02:31)
[2024-01-03] MEDS: LORazepam 2 MG/ML VIAL IVP STA ×2 (03:39→03:40)
[2024-01-03 06:31] VITALS: BP 110/90; O2SAT 94
== END 2024-01-03 06:15 | disposition home or self-care (01) ==
LOC: EDUNIT# → ED 20:01
DX: F10.129 Alcohol abuse with intoxication, unspecified (principal); E10.65 Type 1 diabetes mellitus with hyperglycemia; Z79.4 Long term (current) use of insulin; Z79.84 Long term (current) use of oral hypoglycemic drugs; Z79.899 Other long term (current) drug therapy
CPT/HCPCS: 36415; 70450; 71046; 80053; 80306; 81003; 83690; 84484; 85025; 93005; 96374; 96375; 96376; 99284; A9270; G0480; J2060; 81001; 82077; 87086

== ENCOUNTER 2024-01-03 09:47 | Outpatient (CLI) | payer MEDICARE | END 2024-01-03 23:59 | disposition left against medical advice (07) | LOC: EMS 09:47 | DX: E11.65 Type 2 diabetes mellitus with hyperglycemia (principal); Z79.4 Long term (current) use of insulin; F10.20 Alcohol dependence, uncomplicated ==

== ENCOUNTER 2024-01-03 10:58 | Outpatient (CLI) | payer MEDICARE | END 2024-01-03 23:59 | disposition critical access hospital (66) | LOC: EMS 10:58 | DX: F10.239 Alcohol dependence with withdrawal, unspecified (principal); E11.65 Type 2 diabetes mellitus with hyperglycemia; Z79.4 Long term (current) use of insulin; R45.89 Other symptoms and signs involving emotional state | CPT/HCPCS: A0425; A0429 ==

== ENCOUNTER 2024-01-03 11:16 | Emergency (ER) | payer MEDICARE ==
[2024-01-03 11:59] LABS: BASOPHILS # (AUTO) 0.1 10^3/uL (0.0-0.1); BASOPHILS % (AUTO) 1.3 %; EOSINOPHILS % (AUTO) 0.9 %; HCT - HEMATOCRIT 38.4 % (42.0-52.0); HGB - HEMOGLOBIN 12.4 g/dL (14.0-18.0); LYMPHOCYTES # (AUTO) 1.5 10^3/uL (1.5-3.5); LYMPHOCYTES % (AUTO) 32.5 %; MEAN CORPUSCULAR HEMOGLOBIN 31.6 pg (27.0-31.0); MEAN CORPUSCULAR HGB CONC 32.3 g/dL (32.0-36.0); MEAN PLATELET VOLUME 9.3 fL (7.4-11.4); MONOCYTES # (AUTO) 0.5 10^3/uL (0.0-1.0); MONOCYTES % (AUTO) 10.4 %; NEUTROPHILS # (AUTO) 2.5 10^3/uL (1.5-6.6); NEUTROPHILS % (AUTO) 54.7 %; PLT - PLATELET COUNT 323 10^3/uL (130-450); RED BLOOD COUNT 3.92 10^6/uL (4.70-6.10); RED CELL DISTRIBUTION WIDTH 13.6 % (12.0-15.0); WHITE BLOOD COUNT 4.6 x10^3/uL (4.8-10.8)
[2024-01-03 12:12] LABS: ALBUMIN 4.4 g/dL (3.2-5.5); ALBUMIN/GLOBULIN RATIO 1.6 (1.0-2.2); ALKALINE PHOSPHATASE 81 IU/L (42-121); ALT ALANINE AMINOTRANSFERASE 70 IU/L (10-60); AST ASPARTATE AMINOTRANSFERASE 60 IU/L (10-42); BILIRUBIN,TOTAL 0.4 mg/dL (0.2-1.0); BUN - BLOOD UREA NITROGEN 9 mg/dL (6-20); CALCIUM 9.4 mg/dL (8.5-10.3); CARBON DIOXIDE - CO2 30 mmol/L (21-32); CHLORIDE 99 mmol/L (101-111); CREATININE 0.5 mg/dL (0.6-1.3); ETOH - ETHANOL 251.9 mg/dL; GFR - MDRD 173 (>89); GLUCOSE 230 mg/dL (74-104); POTASSIUM 4.1 mmol/L (3.5-4.5); SODIUM 137 mmol/L (135-145); TOTAL PROTEIN 7.1 g/dL (6.4-8.9)
--- NOTE | 2024-01-03 12:13 | ED Physician Documentation ---
History of Present Illness - Stated complaint Stated Complaint: ETOH - Chief complaint Chief Complaint: General - History obtained from History obtained from: Patient, EMS - Additonal information Additional information: The patient comes to the emergency department after being just discharged this morning with chief complaint of alcohol intoxication" I need to get help". The patient has a longstanding history of alcohol abuse and is well-known to our department for this. He states after he got discharged, he went and drink half gallon of vodka to try to help the shaking in his hands. He is very tearful and states that he wants to stop drinking but he cannot. He feels very trapped in the situation. He does not know who called EMS, he states. No other complaints at this time. 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:  Derm: Skin grafts - Present Medications Home Medications: Ambulatory Orders Medication Instructions Recorded Confirmed Losartan Potassium [Cozaar] 100 mg PO DAILY 01/04/23 01/03/24 Tamsulosin [Flomax] 0.4 mg PO QPM 01/21/23 01/03/24 ARIPiprazole [Aripiprazole] 15 mg PO DAILY 09/22/23 01/03/24 Doxepin [SINEquan] 10 mg PO QPM 09/22/23 01/03/24 Gabapentin [Neurontin] 600 mg PO BID 09/22/23 01/03/24 Insulin Glargine [Lantus Solostar] 20 unit SUBQ QPM 09/22/23 01/03/24 Insulin Lispro [Insulin Lispro 0 - 12 unit SUBQ ACHS 09/22/23 01/03/24 Glenn Brianna] Magnesium Oxide 400 mg PO BID 09/22/23 01/03/24 Naloxone HCl 4 mg NS PRN PRN 09/22/23 01/03/24 Ondansetron Odt [Zofran Odt] 4 mg PO Q6H PRN #15 tablet 09/28/23 12/25/23 Omeprazole 40 mg PO DAILY 10/16/23 01/03/24 Propranolol HCl 20 mg PO BID 10/16/23 01/03/24 Atorvastatin Calcium 40 mg PO HS 11/23/23 01/03/24 Metformin HCl 1,000 mg PO BID 11/23/23 01/03/24 Sertraline HCl 100 mg PO DAILY 11/23/23 01/03/24 hydrOXYzine HCL [Hydroxyzine HCl] 50 mg PO Q6HR PRN 11/23/23 01/03/24 cloNIDine [Catapres] 0.1 mg PO HS 12/21/23 01/03/24 - Allergies Allergies/Adverse Reactions: Allergies Allergy/AdvReac Type Severity Reaction Status Date / Time penicillin G Allergy Severe hearing Verified 01/03/24 11:28 loss left ear povidone-iodine Allergy Severe Respiratory Verified 01/03/24 11:28 [From Betadine] soap * [From Betadine] Allergy Severe Respiratory Verified 01/03/24 11:28 adhesive Allergy Unknown Verified 01/03/24 11:28 iodine Allergy Unknown Verified 01/03/24 11:28 shellfish derived Allergy skin Verified 01/03/24 11:28 burning - Social History Does the pt smoke?: No Smoking Status: Never smoker Does the pt drink ETOH?: Yes Does the pt have substance abuse?: No - Immunizations Immunizations are current?: Yes - POLST Patient has POLST: No POLST Status: Full Code PD ED PE NORMAL - Vitals Vital signs reviewed: Yes - General General: Alert and oriented X 3, Well developed/nourished, Other (Intermittently tearful, otherwise in no apparent distress.) - HEENT HEENT: Atraumatic, PERRL, EOMI, Moist mucous membranes - Neck Neck: Supple, no meningeal sign - Cardiac Cardiac: RRR, No murmur, Strong equal pulses - Respiratory Respiratory: No respiratory distress, Clear bilaterally - Abdomen Abdomen: Soft, Non tender, Non distended - Derm Derm: Normal color, Warm and dry, No rash - Extremities Extremities: No deformity - Neuro Neuro: Other (Alert, appears mildly intoxicated. Intermittent bilateral hand tremor. Otherwise grossly intact.) - Psych Psych: Normal mood, Normal affect Results - Vitals Vitals: Vital Signs - 24 hr 01/03/24 01/03/24 11:28 15:01 Temperature 36.8 C Heart Rate 111 H 101 H Respiratory 20 18 Rate Blood Pressure 177/109 H 147/94 H O2 Saturation 96 96 Oxygen O2 Source Room air - Labs Labs: Laboratory Tests 01/03/24 01/03/24 11:51 11:51 WBC 4.6 L RBC 3.92 L Hgb 12.4 L Hct 38.4 L MCV 98.0 H MCH 31.6 H MCHC 32.3 RDW 13.6 Plt Count 323 MPV 9.3 Neut # (Auto) 2.5 Lymph # (Auto) 1.5 [place] # (Auto) 0.5 Eos # (Auto) 0.0 Baso # (Auto) 0.1 Absolute Nucleated RBC 0.00 Nucleated RBC % 0.0 Sodium 137 Potassium 4.1 Chloride 99 L Carbon Dioxide 30 Anion Gap 8.0 BUN 9 Creatinine 0.5 L Estimated GFR (MDRD) 173 Glucose 230 H Calcium 9.4 Total Bilirubin 0.4 AST 60 H ALT 70 H Alkaline Phosphatase 81 Total Protein 7.1 Albumin 4.4 Globulin 2.7 Albumin/Globulin Ratio 1.6 Lipase < 10 L Ethyl Alcohol 251.9 PD Medical Decision Making - ED course Complexity details: reviewed results, re-evaluated patient, considered differential, d/w patient ED course: The patient was worked up with labs including alcohol level, and social work was consulted. The patient was observed in the emergency department and found to have an alcohol level of 251. The remainder of his labs were unremarkable. shake out worker at this time is working on an inpatient facility for the patient to go to. He will be signed out to the oncoming emergency physician at change of shift, pending final disposition. Departure - Departure Clinical Impression: Acute alcohol intoxication Qualifiers: Complication of substance-induced condition: uncomplicated Qualified Code(s): F10.920 - Alcohol use, unspecified with intoxication, uncomplicated Condition: Stable Forms: PCP List
[2024-01-03 12:15] LABS: LIPASE < 10 U/L (11-82)
[2024-01-03] MEDS: LORazepam 2 MG/ML VIAL IVP PRN (17:17)
[2024-01-03] MEDS: SODIUM CHLORIDE 0.9% 1,000 ML IV STA (18:43)
[2024-01-03] MEDS: THIAMINE INJ 100 MG in SODIUM CHLORIDE 0.9% 50 ML IV STA (18:43)
[2024-01-03 22:32] LABS: AMPHETAMINE SCREEN,URINE NEGATIVE (NEGATIVE); BARBITURATE SCREEN,UR POSITIVE (NEGATIVE); BENZODIAZEPINES SCREEN, URINE POSITIVE (NEGATIVE); COCAINE SCREEN URINE NEGATIVE (NEGATIVE); METHADONE SCREEN, URINE NEGATIVE (NEGATIVE); METHAMPHETAMINES SCREEN, URINE NEGATIVE (NEGATIVE); OPIATE SCREEN, URINE POSITIVE (NEGATIVE); THC CANNABINOID SCREEN, URINE NEGATIVE (NEGATIVE); TRICYCLIC ANTIDEPRESSANT,URINE NEGATIVE (NEGATIVE)
[2024-01-03 22:33] LABS: BUPRENORPHINE SCREEN, URINE NEGATIVE (NEGATIVE); OXYCODONE SCREEN, URINE NEGATIVE (NEGATIVE)
[2024-01-04] MEDS: ACETAMINOPHEN 500 MG TABLET PO STA (08:15)
[2024-01-04] MEDS: LORazepam 2 MG/ML VIAL IVP STA (08:17)
[2024-01-04] MEDS: SODIUM CHLORIDE 0.9% 1,000 ML IV STA (08:21)
[2024-01-04] MEDS: PHENobarbital 65 MG/ML VIAL IV STA (08:21)
[2024-01-04] MEDS: LORazepam 0.5 MG TABLET PO PRN (13:56)
--- NOTE | 2024-01-04 15:22 | ED Physician Documentation ---
ED Addendum - Addendum Addendum: 01/04/24 15:20 Social work Lina states they worked with one of the [facility] social workers and counselors as well and they have a plan for the patient to be accepted at a [facility] which is in [place]. They can accept him in the morning. He will be driven there by the critical access hospital counselor. I was asked to provide prescriptions to [facility] pharmacy for 30 days of all of his medicines so that he would have them available during his detox and rehab timeframe. I sent prescriptions for his insulins as well as 11 other medications that are listed under his recent prescription refills so they seem to be current medications. I also wrote orders for them to be provided here in the ER for further duration today and tomorrow morning until he is discharged. I also wrote for medications for his alcohol withdrawal of oral phenobarb and as needed lorazepam. He had been given doses earlier and seems to be effective at this time.
[2024-01-04] MEDS: INSULIN LISPRO 300 UNIT/3 ML PEN SUBQ SCH (17:59)
[2024-01-04] MEDS: ACETAMINOPHEN 325 MG TABLET PO SCH (18:00)
[2024-01-04] MEDS: metFORMIN 500 MG TABLET PO SCH (20:48)
[2024-01-04] MEDS: PROPRANOLOL 10 MG TABLET PO SCH (20:49)
[2024-01-04] MEDS: PHENobarbitaL 32.4 MG TABLET PO SCH (20:49)
[2024-01-04] MEDS: cloNIDine 0.1 MG TABLET PO SCH (20:49)
[2024-01-04] MEDS: TAMSULOSIN 0.4 MG CAPSULE PO SCH (20:49)
[2024-01-04] MEDS: LOSARTAN 50 MG TABLET PO SCH (20:58)
[2024-01-04] MEDS: INSULIN GLARGINE-YFGN 300 UNIT/3 ML PEN SUBQ SCH (21:10)
[2024-01-04] MEDS: SERTRALINE 50 MG TABLET PO SCH (21:25)
[2024-01-04] MEDS: PANTOPRAZOLE 40 MG TABLET PO SCH (21:25)
--- NOTE | 2024-01-05 06:29 | ED Physician Documentation ---
ED Addendum - Addendum Addendum: 01/05/24 06:28 No acute events overnight. Patient will be discharged to rehab. Impression 1 alcohol abuse Condition stable Disposition discharged to rehab
[2024-01-05 06:45] VITALS: BP 167/114; O2SAT 95
== END 2024-01-05 06:42 | disposition home or self-care (01) ==
LOC: EDUNIT# → SUPCPDRO 11:16 → ED 11:16
DX: F10.129 Alcohol abuse with intoxication, unspecified (principal); Z75.1 Person awaiting admission to adequate facility elsewhere; I10 Essential (primary) hypertension; E78.00 Pure hypercholesterolemia, unspecified; G47.30 Sleep apnea, unspecified; E10.42 Type 1 diabetes mellitus with diabetic polyneuropathy; Z79.4 Long term (current) use of insulin; Z79.84 Long term (current) use of oral hypoglycemic drugs; Z79.899 Other long term (current) drug therapy
CPT/HCPCS: 36415; 80053; 80306; 83690; 85025; 96365; 96375; 96376; 99283; A9270; G0480; J1815; J2060; J2560; J3411; J7040; 82077

== ENCOUNTER 2024-02-16 13:37 | Outpatient (CLI) | payer MEDICARE | END 2024-02-16 23:59 | disposition critical access hospital (66) | LOC: EMS 13:37 | DX: R45.851 Suicidal ideations (principal); F10.129 Alcohol abuse with intoxication, unspecified | CPT/HCPCS: A0425; A0429 ==

== ENCOUNTER 2024-02-16 13:54 | Emergency (ER) | payer MEDICARE ==
[2024-02-16] MEDS: OLANZapine 10 MG VIAL IM STA (14:15)
[2024-02-16 14:32] LABS: BASOPHILS % (AUTO) 0.3 %; EOSINOPHILS # (AUTO) 0.2 10^3/uL (0.0-0.7); EOSINOPHILS % (AUTO) 3.5 %; HCT - HEMATOCRIT 38.2 % (42.0-52.0); HGB - HEMOGLOBIN 12.8 g/dL (14.0-18.0); LYMPHOCYTES # (AUTO) 2.2 10^3/uL (1.5-3.5); LYMPHOCYTES % (AUTO) 34.4 %; MEAN CORPUSCULAR HEMOGLOBIN 31.1 pg (27.0-31.0); MEAN CORPUSCULAR HGB CONC 33.5 g/dL (32.0-36.0); MEAN CORPUSCULAR VOLUME 92.7 fL (80.0-94.0); MEAN PLATELET VOLUME 8.8 fL (7.4-11.4); MONOCYTES # (AUTO) 0.6 10^3/uL (0.0-1.0); MONOCYTES % (AUTO) 8.6 %; NEUTROPHILS # (AUTO) 3.4 10^3/uL (1.5-6.6); PLT - PLATELET COUNT 312 10^3/uL (130-450); RED BLOOD COUNT 4.12 10^6/uL (4.70-6.10); WHITE BLOOD COUNT 6.5 x10^3/uL (4.8-10.8)
[2024-02-16 14:41] LABS: MAGNESIUM 1.3 mg/dL (1.7-2.3)
[2024-02-16 14:48] LABS: ACETAMINOPHEN 0.7 ug/mL; ALBUMIN 4.2 g/dL (3.2-5.5); ALBUMIN/GLOBULIN RATIO 1.6 (1.0-2.2); ALKALINE PHOSPHATASE 93 IU/L (42-121); ALT ALANINE AMINOTRANSFERASE 15 IU/L (10-60); AST ASPARTATE AMINOTRANSFERASE 14 IU/L (10-42); BILIRUBIN,TOTAL 0.3 mg/dL (0.2-1.0); BUN - BLOOD UREA NITROGEN 11 mg/dL (6-20); CALCIUM 9.6 mg/dL (8.5-10.3); CARBON DIOXIDE - CO2 29 mmol/L (21-32); CHLORIDE 98 mmol/L (101-111); CK- CREATINE KINASE 149 IU/L (30-223); CREATININE 0.6 mg/dL (0.6-1.3); ETOH - ETHANOL 255.5 mg/dL; GFR - MDRD 139 (>89); GLUCOSE 254 mg/dL (74-104); POTASSIUM 4.2 mmol/L (3.5-4.5); SODIUM 137 mmol/L (135-145); TOTAL PROTEIN 6.9 g/dL (6.4-8.9)
[2024-02-16 15:02] LABS: THYROID STIMULATING HORMONE 0.96 uIU/mL (0.34-5.60)
[2024-02-16 15:13] LABS: LIPASE < 10 U/L (11-82); SALICYLATE < 1.5 mg/dL
--- NOTE | 2024-02-16 15:24 | ED Physician Documentation ---
PD HPI MHE - Stated complaint Stated Complaint: MHE - Chief complaint Chief Complaint: MHE - Additional information Additional information: 54-year-old male who suffers from alcohol dependence presents emergency department for alcohol intoxication. Patient recently spent 30 days in rehab was discharged on the and has been following up with mental health providers social workers and his recovery navigator nurse outreach case manager daily since his discharge from rehab center. Today when they went to go check on the patient he did not answer the door which led to a wellness check. Patient eventually answer the door and was found to be significantly intoxicated he reports that he drank about 1/2 gallon of vodka today and repeatedly states to nurse outreach case manager that he wants to . For myself patient appears to be quite intoxicated he denies any suicidal homicidal ideation but is not making much sense. He is having difficulty walking due to how intoxicated he is. 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:  Derm: Skin grafts - Present Medications Home Medications: Ambulatory Orders Medication Instructions Recorded Confirmed Losartan Potassium [Cozaar] 100 mg PO DAILY 01/04/23 01/03/24 Doxepin [SINEquan] 10 mg PO QPM 09/22/23 01/03/24 Gabapentin [Neurontin] 600 mg PO BID 09/22/23 01/03/24 Magnesium Oxide 400 mg PO BID 09/22/23 01/03/24 Naloxone HCl 4 mg NS PRN PRN 09/22/23 01/03/24 Ondansetron Odt [Zofran Odt] 4 mg PO Q6H PRN #15 tablet 09/28/23 12/25/23 hydrOXYzine HCL [Hydroxyzine HCl] 50 mg PO Q6HR PRN 11/23/23 01/03/24 ARIPiprazole [Aripiprazole] 15 mg PO DAILY #30 tab 01/04/24 Atorvastatin Calcium 40 mg PO HS #30 tab 01/04/24 Insulin Glargine [Lantus Solostar] 20 unit SUBQ QPM #1 each 01/04/24 Insulin Lispro [Insulin Lispro 0 - 12 unit SUBQ ACHS 30 Days #1 01/04/24 Junior Reed] each Losartan Potassium 100 mg PO DAILY #30 tab 01/04/24 Metformin HCl 1,000 mg PO BID #60 tab 01/04/24 Omeprazole 40 mg PO DAILY #30 cap 01/04/24 Propranolol HCl 20 mg PO BID #60 tab 01/04/24 Sertraline HCl 100 mg PO DAILY #30 tab 01/04/24 Tamsulosin [Flomax] 0.4 mg PO QPM #30 cap 01/04/24 cloNIDine [Catapres] 0.1 mg PO HS #30 tab 01/04/24 - Allergies Allergies/Adverse Reactions: Allergies Allergy/AdvReac Type Severity Reaction Status Date / Time penicillin G Allergy Severe hearing Verified 02/16/24 14:05 loss left ear povidone-iodine Allergy Severe Respiratory Verified 02/16/24 14:05 [From Betadine] soap * [From Betadine] Allergy Severe Respiratory Verified 02/16/24 14:05 adhesive Allergy Unknown Verified 02/16/24 14:05 iodine Allergy Unknown Verified 02/16/24 14:05 shellfish derived Allergy skin Verified 02/16/24 14:05 burning - Social History Does the pt smoke?: No Smoking Status: Never smoker Does the pt drink ETOH?: Yes Does the pt have substance abuse?: No - Immunizations Immunizations are current?: Yes - POLST Patient has POLST: No POLST Status: Full Code PD ED PE NORMAL - Vitals Vital signs reviewed: Yes - General General: Alert and oriented X 3, Well developed/nourished, Other (appears very intoxicated) - HEENT HEENT: Atraumatic, PERRL, EOMI - Neck Neck: No bony TTP, No JVD - Cardiac Cardiac: RRR - Respiratory Respiratory: No respiratory distress, Clear bilaterally - Abdomen Abdomen: Normal bowel sounds, Soft, Non tender, No organomegaly - Derm Derm: Normal color, Warm and dry, No rash - Extremities Extremities: No deformity PD ED PE EXPANDED - Psych Psych: Intoxicated / AOB, Depressed, Suicidal, Withdrawn, Agitated. No: Homicidal, Auditory hallucinations, Visual hallucinations Results - Vitals Vitals: Vital Signs - 24 hr 02/16/24 02/16/24 02/16/24 13:57 14:57 15:54 Temperature 36.3 C L Heart Rate 115 H 87 87 Respiratory 16 17 18 Rate Blood Pressure 158/106 H 123/92 H 127/90 H O2 Saturation 98 95 100 If not protocol 3.5 2 : Oxygen Flow, liters/minute 02/16/24 02/16/24 17:00 19:21 Temperature 37.1 C Heart Rate 91 85 Respiratory 20 13 Rate Blood Pressure 129/92 H 119/90 H O2 Saturation 97 95 If not protocol 2 : Oxygen Flow, liters/minute Oxygen O2 Source Room air - EKG (time done) 1428 EKG releavant findings:: EKG personally interpreted by author of this note. Relevant findings are: Rate: Rate (enter#) (77) Rhythm: NSR [place]: Normal Intervals: Normal ME QRS: Normal Ischemia: Normal ST segments Computer interpretation: Agree with computer - Labs Labs: Laboratory Tests 02/16/24 02/16/24 02/16/24 14:28 14:28 14:47 WBC 6.5 RBC 4.12 L Hgb 12.8 L Hct 38.2 L MCV 92.7 MCH 31.1 H MCHC 33.5 RDW 12.0 Plt Count 312 MPV 8.8 Neut # (Auto) 3.4 Lymph # (Auto) 2.2 [place] # (Auto) 0.6 Eos # (Auto) 0.2 Baso # (Auto) 0.0 Absolute Nucleated RBC 0.00 Nucleated RBC % 0.0 Sodium 137 Potassium 4.2 Chloride 98 L Carbon Dioxide 29 Anion Gap 10.0 BUN 11 Creatinine 0.6 Estimated GFR (MDRD) 139 Glucose 254 H Calcium 9.6 Magnesium 1.3 L Total Bilirubin 0.3 AST 14 ALT 15 Alkaline Phosphatase 93 Total Creatine Kinase 149 Total Protein 6.9 Albumin 4.2 Globulin 2.7 Albumin/Globulin Ratio 1.6 Lipase < 10 L TSH 0.96 Urine Color Urine Clarity Urine pH Ur Specific [place] Urine Protein Urine Glucose (UA) Urine Ketones Urine Occult Blood Urine Nitrite Urine Bilirubin Urine Urobilinogen Ur Leukocyte Esterase Ur Microscopic Review Urine Culture Comments Nasal Adenovirus (PCR) NOT DETECTED Nasal B. parapertussis DNA (PCR) NOT DETECTED Nasal Coronavir 229E PCR NOT DETECTED Nasal Coronavir HKU1 PCR NOT DETECTED Nasal Coronavir NL63 PCR NOT DETECTED Nasal Coronavir OC43 PCR NOT DETECTED Nasal Enterovir/Rhinovir PCR NOT DETECTED Nasal Influenza B PCR NOT DETECTED Nasal Influenza A PCR NOT DETECTED Nasal Parainfluen 1 PCR NOT DETECTED Nasal Parainfluen 2 PCR NOT DETECTED Nasal Parainfluen 3 PCR NOT DETECTED Nasal Parainfluen 4 PCR NOT DETECTED Nasal RSV (PCR) NOT DETECTED Nasal B.pertussis DNA PCR NOT DETECTED Nasal C.pneumoniae (PCR) NOT DETECTED [place] Human Metapneumo PCR NOT DETECTED Nasal M.pneumoniae (PCR) NOT DETECTED Nasal SARS-CoV-2 (PCR) NOT DETECTED Salicylates < 1.5 Urine Opiates Screen Ur Buprenorphine Scrn Ur Oxycodone Screen Urine Methadone Screen Acetaminophen 0.7 Ur Barbiturates Screen Ur Tricyclics Screen Ur Phencyclidine Scrn Ur Amphetamine Screen U Methamphetamines Scrn U Benzodiazepines Scrn Urine Cocaine Screen U Cannabinoids Screen Ur Drug Screen Comment Ethyl Alcohol 255.5 02/16/24 02/16/24 20:19 20:35 WBC RBC Hgb Hct MCV MCH MCHC RDW Plt Count MPV Neut # (Auto) Lymph # (Auto) [place] # (Auto) Eos # (Auto) Baso # (Auto) Absolute Nucleated RBC Nucleated RBC % Sodium Potassium Chloride Carbon Dioxide Anion Gap BUN Creatinine Estimated GFR (MDRD) Glucose Calcium Magnesium Total Bilirubin AST ALT Alkaline Phosphatase Total Creatine Kinase Total Protein Albumin Globulin Albumin/Globulin Ratio Lipase TSH Urine Color YELLOW Urine Clarity CLEAR Urine pH 6.5 Ur Specific [place] 1.010 Urine Protein NEGATIVE Urine Glucose (UA) 100 H Urine Ketones NEGATIVE Urine Occult Blood NEGATIVE Urine Nitrite NEGATIVE Urine Bilirubin NEGATIVE Urine Urobilinogen 0.2 (NORMAL) Ur Leukocyte Esterase NEGATIVE Ur Microscopic Review NOT INDICATED Urine Culture Comments NOT INDICATED Nasal Adenovirus (PCR) Nasal B. parapertussis DNA (PCR) Nasal Coronavir 229E PCR Nasal Coronavir HKU1 PCR Nasal Coronavir NL63 PCR Nasal Coronavir OC43 PCR Nasal Enterovir/Rhinovir PCR Nasal Influenza B PCR Nasal Influenza A PCR Nasal Parainfluen 1 PCR Nasal Parainfluen 2 PCR Nasal Parainfluen 3 PCR Nasal Parainfluen 4 PCR Nasal RSV (PCR) Nasal B.pertussis DNA PCR Nasal C.pneumoniae (PCR) [place] Human Metapneumo PCR Nasal M.pneumoniae (PCR) Nasal SARS-CoV-2 (PCR) Salicylates Urine Opiates Screen POSITIVE H Ur Buprenorphine Scrn NEGATIVE Ur Oxycodone Screen NEGATIVE Urine Methadone Screen NEGATIVE Acetaminophen Ur Barbiturates Screen NEGATIVE Ur Tricyclics Screen NEGATIVE Ur Phencyclidine Scrn NEGATIVE Ur Amphetamine Screen NEGATIVE U Methamphetamines Scrn NEGATIVE U Benzodiazepines Scrn NEGATIVE Urine Cocaine Screen NEGATIVE U Cannabinoids Screen NEGATIVE Ur Drug Screen Comment CUTOFF CONC BELOW: Ethyl Alcohol 135.9 PD Medical Decision Making - ED course ED course: 54-year-old male presents emergency department for alcohol intoxication and an unsafe to be alone. Patient's recovery navigator nurse outreach case manager was initially at bedside and said if we had any additional questions or needed to talk to her about anything that we could reach out to her her cell phone number is [phone]. Patient initially was difficult to direct due to his agitation attempting to leave the emergency department and code Brigida need to be called on him. He eventually came back to the emergency department he required 1 dose of IM olanzapine he was agreeable and did request this medication. Labs were collected no leukocytosis or other significant electrolyte abnormalities mild hypomagnesemia, magnesium 1.3 this was replaced. Initial EtOH level was found to be 250 5 repeat EtOH level was 135. He also tested positive for opiates. After several hours and EtOH level significantly improving and coming down patient was much more directable he did asked to go home but after I informed him that he was not able to go home and told him that he needed to wait patiently in his room in the bed until we can get a hold of [facility] he was more calm and cooperative than previous. I spoke with [facility] and they do not believe that patient is safe to return home so they are planning on detaining him and they are currently looking for a bed at this point in time. As of 2244 patient is detained. Report given to Dr. Cao due to change of shift. Departure - Departure Disposition: ED Place in Observation Forms: PCP List
[2024-02-16 15:42] LABS: B. PARAPERTUSSIS- RESP PCR PAN NOT DETECTED; B. PERTUSSIS- RESP PCR PANEL NOT DETECTED; C. PNEUMONIAE- RESP PCR PANEL NOT DETECTED; CORONAVIRUS 229E-RESP PCR NOT DETECTED; CORONAVIRUS HKU1-RESP PCR NOT DETECTED; CORONAVIRUS NL63-RESP PCR NOT DETECTED; CORONAVIRUS OC43-RESP PCR NOT DETECTED; HUMAN METAPNEUMOVIRUS NOT DETECTED; INFLUENZA A- RESP PCR PANEL NOT DETECTED; INFLUENZA B - RESP PCR PANEL NOT DETECTED; M. PNEUMONIAE- RESP PCR PANEL NOT DETECTED; PARAINFLUENZA VIRUS 1 NOT DETECTED; PARAINFLUENZA VIRUS 2 NOT DETECTED; PARAINFLUENZA VIRUS 3 NOT DETECTED; PARAINFLUENZA VIRUS 4 NOT DETECTED; RHINOVIRUS/ENTEROVIRUS NOT DETECTED; RSV- RESP PCR PANEL NOT DETECTED; SARS-CoV-2 -RESP PCR PANEL NOT DETECTED
[2024-02-16 20:45] LABS: BILIRUBIN,URINE NEGATIVE (NEGATIVE); GLUCOSE, URINE (UA) 100 mg/dL (NEGATIVE); KETONES,URINE (UA) NEGATIVE (NEGATIVE); LEUKOCYTE ESTERASE, URINE NEGATIVE (NEGATIVE); NITRITE,URINE NEGATIVE (NEGATIVE); OCCULT BLOOD,URINE NEGATIVE (NEGATIVE); PH,URINE 6.5 PH (5.0-7.5); PROTEIN,URINE NEGATIVE (NEGATIVE); UROBILINOGEN,URINE 0.2 (NORMAL) E.U./dL (NORMAL)
[2024-02-16 20:52] LABS: CLARITY,URINE CLEAR (CLEAR)
[2024-02-16 21:01] LABS: AMPHETAMINE SCREEN,URINE NEGATIVE (NEGATIVE); BENZODIAZEPINES SCREEN, URINE NEGATIVE (NEGATIVE); COCAINE SCREEN URINE NEGATIVE (NEGATIVE); METHAMPHETAMINES SCREEN, URINE NEGATIVE (NEGATIVE); OPIATE SCREEN, URINE POSITIVE (NEGATIVE); THC CANNABINOID SCREEN, URINE NEGATIVE (NEGATIVE)
[2024-02-16 21:02] LABS: BARBITURATE SCREEN,UR NEGATIVE (NEGATIVE); BUPRENORPHINE SCREEN, URINE NEGATIVE (NEGATIVE); METHADONE SCREEN, URINE NEGATIVE (NEGATIVE); OXYCODONE SCREEN, URINE NEGATIVE (NEGATIVE); TRICYCLIC ANTIDEPRESSANT,URINE NEGATIVE (NEGATIVE)
[2024-02-16] MEDS: MAGNESIUM OXIDE 400 MG TABLET PO STA (23:14)
--- NOTE | 2024-02-16 23:32 | ED Physician Documentation ---
ED Addendum - Addendum Addendum: 02/16/24 23:31 Patient endorsed to me by APPLICATION CHEMIST Grace pending placement for mental health. Will monitor overnight. [facility]CR detained the patient. He is calm and compliant, resting in bed. 02/17/24 03:03 Patient accepted to [facility]. Disposition transfer to inpatient psychiatry Condition stable Impression 1. depression 2. SI 3. alcohol dependence 02/17/24 03:04
[2024-02-17 10:52] VITALS: BP 143/103; O2SAT 98
== END 2024-02-17 10:51 ==
LOC: EDUNIT# → ED 13:54
DX: F32.A Depression, unspecified (principal); R45.851 Suicidal ideations; F10.229 Alcohol dependence with intoxication, unspecified; I10 Essential (primary) hypertension; E78.00 Pure hypercholesterolemia, unspecified; G47.30 Sleep apnea, unspecified; G62.9 Polyneuropathy, unspecified; E10.9 Type 1 diabetes mellitus without complications; Z79.4 Long term (current) use of insulin; Z79.899 Other long term (current) drug therapy
CPT/HCPCS: 36415; 80053; 80143; 80306; 81003; 82550; 83690; 83735; 84443; 85025; 87633; 93005; 96372; 99285; A9270; G0480; 80179; 81001; 82077; 87086

== ENCOUNTER 2024-02-26 11:09 | Emergency (ER) | payer MEDICARE ==
--- NOTE | 2024-02-26 11:59 | ED Physician Documentation ---
History of Present Illness - Stated complaint Stated Complaint: ARM PX, HEAD PX - Chief complaint Chief Complaint: General - History obtained from History obtained from: Patient - History of Present Illness Timing: Unknown Pain level max: 7 Pain level now: 5 - Additonal information Additional information: Patient is a 54-year-old male accompanied by a county social service liaison today. He states that he broke his arm sometime between February 15 and today. He does not know when. He states that he was at a hospital but does not know which hospital. He states he does not know what bone is broken. He states he did not bring any paperwork with him. He states he was using his arm to twist an ice cube tray today and has increasing pain in the arm. Feels better with elevation, worse with putting the arm down. Not on a sling. No numbness or tingling. He states he took Motrin but it did not help the pain. Review of Systems Constitutional: denies: Fever, Chills GI: denies: Vomiting Skin: denies: Rash Neurologic: reports: Head injury (Patient states that he hit his head when he fell and broke his arm. No loss of consciousness. Not having any significant headache since then. 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:  Derm: Skin grafts - Present Medications Home Medications: Ambulatory Orders Medication Instructions Recorded Confirmed Losartan Potassium [Cozaar] 100 mg PO DAILY 01/04/23 01/03/24 Doxepin [SINEquan] 10 mg PO QPM 09/22/23 01/03/24 Gabapentin [Neurontin] 600 mg PO BID 09/22/23 01/03/24 Magnesium Oxide 400 mg PO BID 09/22/23 01/03/24 hydrOXYzine HCL [Hydroxyzine HCl] 50 mg PO Q6HR PRN 11/23/23 01/03/24 ARIPiprazole [Aripiprazole] 15 mg PO DAILY #30 tab 01/04/24 Atorvastatin Calcium 40 mg PO HS #30 tab 01/04/24 Insulin Glargine [Lantus Solostar] 20 unit SUBQ QPM #1 each 01/04/24 Insulin Lispro [Insulin Lispro 0 - 12 unit SUBQ ACHS 30 Days #1 01/04/24 Glenn Brianna] each Metformin HCl 1,000 mg PO BID #60 tab 01/04/24 Omeprazole 40 mg PO DAILY #30 cap 01/04/24 Propranolol HCl 20 mg PO BID #60 tab 01/04/24 Sertraline HCl 100 mg PO DAILY #30 tab 01/04/24 Tamsulosin [Flomax] 0.4 mg PO QPM #30 cap 01/04/24 cloNIDine [Catapres] 0.1 mg PO HS #30 tab 01/04/24 - Allergies Allergies/Adverse Reactions: Allergies Allergy/AdvReac Type Severity Reaction Status Date / Time penicillin G Allergy Severe hearing Verified 02/26/24 11:23 loss left ear povidone-iodine Allergy Severe Respiratory Verified 02/26/24 11:23 [From Betadine] soap * [From Betadine] Allergy Severe Respiratory Verified 02/26/24 11:23 adhesive Allergy Unknown Verified 02/26/24 11:23 iodine Allergy Unknown Verified 02/26/24 11:23 shellfish derived Allergy skin Verified 02/26/24 11:23 burning - Social History Does the pt smoke?: No Smoking Status: Never smoker Does the pt drink ETOH?: Yes Does the pt have substance abuse?: No - Immunizations Immunizations are current?: Yes - POLST Patient has POLST: No POLST Status: Full Code PD ED PE NORMAL - Vitals Vital signs reviewed: Yes - General General: Alert and oriented X 3, No acute distress - HEENT HEENT: Atraumatic, PERRL, Moist mucous membranes - Neck Neck: Supple, no meningeal sign - Respiratory Respiratory: No respiratory distress - Derm Derm: Warm and dry - Extremities Extremities: Other (Right arm in a sugar-tong splint. Neurovascular intact. Able to move all fingers and has normal sensation. Brisk cap refill) - Neuro Neuro: Alert and oriented X 3 - Psych Psych: Normal mood, Normal affect Results - Vitals Vitals: Vital Signs - 24 hr 02/26/24 02/26/24 02/26/24 11:15 12:27 12:50 Temperature 36.8 C Heart Rate 98 92 Respiratory 20 19 Rate Blood Pressure 143/98 H 122/92 H O2 Saturation 94 98 Oxygen O2 Source Room air - Rads (name of study) Right forearm x-ray Relevant Findings:: Final report received, See rad report PD Medical Decision Making - ED course Complexity details: reviewed results, re-evaluated patient, considered differential, d/w patient ED course: Patient appears to have a distal radius fracture/nondisplaced fracture through the radial styloid on x-ray today. His splint is clean and intact. No evidence of compartment syndrome. No indication to redo the splint. Recommend that he follow-up with orthopedics as instructed. Patient was prescribed oxycodone by the prior facility. He is also on a Dilaudid pain pump at home. Patient counseled regarding signs and symptoms for which I believe and urgent re- evaluation would be necessary. Patient with good understanding of and agreement to plan and is comfortable going home at this time This document was made in part using voice recognition software. While efforts are made to proofread this document, sound alike and grammatical errors may occur. Departure - Departure Disposition: 01 Home, Self Care Clinical Impression: Distal radius fracture, right Qualifiers: Encounter type: initial encounter Fracture type: closed Fracture morphology: unspecified fracture morphology Qualified Code(s): S52.501A - Unspecified fracture of the lower end of right radius, initial encounter for closed fracture Condition: Good Instructions: ED Fx Upper Ext, ED Splint Care Fiberglass Follow-Up: [facility] [Provider Group] Comments: You have a slightly impacted distal radius fracture of your right wrist. You need to stay in the splint until seen by orthopedics. Keep the splint clean and dry. You should stay in the sling as much as possible. Elevate the arm w henever possible to help decrease the swelling and that will help with the throbbing in the arm as well. You need to call the orthopedic office for a follow-up appointment. Forms: PCP List Discharge Date/Time: 02/26/24 12:50
--- NOTE | 2024-02-26 12:49 | XRAY Report ---
PROCEDURE: Forearm RT INDICATIONS: R arm pain, states broken arm 5 days ago TECHNIQUE: 2 views of the forearm were acquired. COMPARISON: None. FINDINGS: Bones: Nondisplaced fracture through the radial styloid. Soft tissues: No suspicious soft tissue calcifications or masses. IMPRESSION: Nondisplaced fracture through the radial styloid. Reviewed by: Haile Bailey MD on 02/26/2024 12:47 PM PDT Approved by: Haile Bailey MD on 02/26/2024 12:47 PM PDT Station ID: [id number]
[2024-02-26 12:56] VITALS: BP 122/92; O2SAT 98
== END 2024-02-26 12:50 | disposition home or self-care (01) ==
LOC: ED 11:09
DX: S52.501A Unspecified fracture of the lower end of right radius, initial encounter for closed fracture (principal); X58.XXXA Exposure to other specified factors, initial encounter; I10 Essential (primary) hypertension; E78.00 Pure hypercholesterolemia, unspecified; E10.42 Type 1 diabetes mellitus with diabetic polyneuropathy; Z79.4 Long term (current) use of insulin; Z79.899 Other long term (current) drug therapy
CPT/HCPCS: 99283

== ENCOUNTER 2024-02-29 12:13 | Outpatient (CLI) | payer MEDICARE | END 2024-02-29 23:59 | disposition critical access hospital (66) | LOC: EMS 12:13 | DX: R41.82 Altered mental status, unspecified (principal); S00.81XA Abrasion of other part of head, initial encounter; W19.XXXA Unspecified fall, initial encounter; Y92.009 Unspecified place in unspecified non-institutional (private) residence as the place of occurrence of the external cause; R32 Unspecified urinary incontinence; R00.0 Tachycardia, unspecified | CPT/HCPCS: A0425; A0429 ==

== ENCOUNTER 2024-03-11 13:45 | Emergency (ER) | payer MEDICARE ==
[2024-03-11 14:57] LABS: BASOPHILS % (AUTO) 0.5 %; EOSINOPHILS % (AUTO) 0.2 %; HCT - HEMATOCRIT 40.9 % (42.0-52.0); HGB - HEMOGLOBIN 13.8 g/dL (14.0-18.0); LYMPHOCYTES # (AUTO) 1.2 10^3/uL (1.5-3.5); LYMPHOCYTES % (AUTO) 21.1 %; MEAN CORPUSCULAR HEMOGLOBIN 31.2 pg (27.0-31.0); MEAN CORPUSCULAR HGB CONC 33.7 g/dL (32.0-36.0); MEAN CORPUSCULAR VOLUME 92.3 fL (80.0-94.0); MEAN PLATELET VOLUME 8.9 fL (7.4-11.4); MONOCYTES # (AUTO) 0.4 10^3/uL (0.0-1.0); MONOCYTES % (AUTO) 7.4 %; NEUTROPHILS % (AUTO) 70.4 %; PLT - PLATELET COUNT 274 10^3/uL (130-450); RED BLOOD COUNT 4.43 10^6/uL (4.70-6.10); RED CELL DISTRIBUTION WIDTH 12.8 % (12.0-15.0); WHITE BLOOD COUNT 5.7 x10^3/uL (4.8-10.8)
[2024-03-11 15:11] LABS: ACETAMINOPHEN 0.1 ug/mL; CK- CREATINE KINASE 161 IU/L (30-223); ETOH - ETHANOL 59.4 mg/dL; MAGNESIUM 1.2 mg/dL (1.7-2.3)
[2024-03-11 15:18] LABS: ALBUMIN 4.6 g/dL (3.2-5.5); ALBUMIN/GLOBULIN RATIO 1.4 (1.0-2.2); ALKALINE PHOSPHATASE 116 IU/L (42-121); ALT ALANINE AMINOTRANSFERASE 36 IU/L (10-60); AST ASPARTATE AMINOTRANSFERASE 37 IU/L (10-42); BILIRUBIN,TOTAL 0.8 mg/dL (0.2-1.0); BUN - BLOOD UREA NITROGEN 18 mg/dL (6-20); CALCIUM 9.5 mg/dL (8.5-10.3); CARBON DIOXIDE - CO2 24 mmol/L (21-32); CHLORIDE 95 mmol/L (101-111); CREATININE 0.6 mg/dL (0.6-1.3); GFR - MDRD 139 (>89); GLUCOSE 186 mg/dL (74-104); LIPASE < 10 U/L (11-82); POTASSIUM 3.8 mmol/L (3.5-4.5); SALICYLATE < 1.5 mg/dL; SODIUM 137 mmol/L (135-145); TOTAL PROTEIN 7.9 g/dL (6.4-8.9)
[2024-03-11 15:39] LABS: BILIRUBIN,URINE NEGATIVE (NEGATIVE); GLUCOSE, URINE (UA) >=1000 mg/dL (NEGATIVE); KETONES,URINE (UA) TRACE mg/dL (NEGATIVE); LEUKOCYTE ESTERASE, URINE NEGATIVE (NEGATIVE); NITRITE,URINE NEGATIVE (NEGATIVE); OCCULT BLOOD,URINE NEGATIVE (NEGATIVE); PROTEIN,URINE TRACE mg/dL (NEGATIVE); UROBILINOGEN,URINE 0.2 (NORMAL) E.U./dL (NORMAL)
[2024-03-11 15:41] LABS: CLARITY,URINE CLEAR (CLEAR)
[2024-03-11] MEDS: MAGNESIUM OXIDE 400 MG TABLET PO STA (15:49)
[2024-03-11 15:50] LABS: COCAINE SCREEN URINE NEGATIVE (NEGATIVE); THC CANNABINOID SCREEN, URINE NEGATIVE (NEGATIVE)
--- NOTE | 2024-03-11 15:50 | ED Physician Documentation ---
History of Present Illness - Stated complaint Stated Complaint: DETOX - Chief complaint Chief Complaint: General - History obtained from History obtained from: Patient - Additonal information Additional information: 54-year-old gentleman presents accompanied by social insurance analyst seeking detox for alcohol. He has a history of chronic pain with pain pump in place and also was [place] last month and went to [place] and then [place]. There he had a fall and injured his head and has a broken arm and his right arm and is in a cast. Because of that, his medical comorbidities, the pain pump, and insulin-dependent diabetes, it has always been very difficult to find a detox facility with the capability to care for him. He says last drink was about midnight and feels like he is withdrawing. Note made that in triage his heart rate is 140 but on my examination has normalized. Although he says he is feeling like he is withdrawing. He does not appear overtly shaky. 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:  Derm: Skin grafts - Present Medications Home Medications: Ambulatory Orders Medication Instructions Recorded Confirmed Losartan Potassium [Cozaar] 100 mg PO DAILY 01/04/23 03/01/24 Doxepin [SINEquan] 10 mg PO QPM 09/22/23 03/01/24 Gabapentin [Neurontin] 600 mg PO BID 09/22/23 03/01/24 Magnesium Oxide 400 mg PO BID 09/22/23 03/01/24 hydrOXYzine HCL [Hydroxyzine HCl] 50 mg PO Q6HR PRN 11/23/23 03/01/24 ARIPiprazole [Aripiprazole] 15 mg PO DAILY #30 tab 01/04/24 03/01/24 Atorvastatin Calcium 40 mg PO HS #30 tab 01/04/24 03/01/24 Insulin Glargine [Lantus Solostar] 20 unit SUBQ QPM #1 each 01/04/24 03/01/24 Insulin Lispro [Insulin Lispro 0 - 12 unit SUBQ ACHS 30 Days #1 01/04/24 03/01/24 Glenn Brianna] each Metformin HCl 1,000 mg PO BID #60 tab 01/04/24 03/01/24 Omeprazole 40 mg PO DAILY #30 cap 01/04/24 03/01/24 Propranolol HCl 20 mg PO BID #60 tab 01/04/24 03/01/24 Sertraline HCl 100 mg PO DAILY #30 tab 01/04/24 03/01/24 Tamsulosin [Flomax] 0.4 mg PO QPM #30 cap 01/04/24 03/01/24 cloNIDine [Catapres] 0.1 mg PO HS #30 tab 01/04/24 03/01/24 LORazepam [Ativan] 1 mg PO Q6H PRN #15 tablet 03/01/24 Meloxicam [Mobic] 7.5 mg PO BID 10 Days #20 tablet 03/01/24 Ondansetron Odt [Zofran] 4 mg TL Q6H PRN #10 tablet 03/01/24 PHENobarbitaL [Phenobarbital] 30 mg PO BID 6 Days #9 tablet 03/01/24 LORazepam [Ativan] 1 mg PO TID PRN #6 tablet 03/11/24 - Allergies Allergies/Adverse Reactions: Allergies Allergy/AdvReac Type Severity Reaction Status Date / Time penicillin G Allergy Severe hearing Verified 03/11/24 13:54 loss left ear povidone-iodine Allergy Severe Respiratory Verified 03/11/24 13:54 [From Betadine] soap * [From Betadine] Allergy Severe Respiratory Verified 03/11/24 13:54 adhesive Allergy Unknown Verified 03/11/24 13:54 iodine Allergy Unknown Verified 03/11/24 13:54 shellfish derived Allergy skin Verified 03/11/24 13:54 burning - Social History Does the pt smoke?: No Smoking Status: Never smoker Does the pt drink ETOH?: Yes Does the pt have substance abuse?: No - Immunizations Immunizations are current?: Yes - POLST Patient has POLST: No POLST Status: Full Code PD ED PE NORMAL - Vitals Vital signs reviewed: Yes - General General: Alert and oriented X 3, No acute distress - HEENT HEENT: PERRL, EOMI, Other (No tongue fasciculations/tremor) - Neck Neck: Supple, no meningeal sign - Cardiac Cardiac: RRR, No murmur - Respiratory Respiratory: No respiratory distress, Clear bilaterally - Extremities Extremities: Other (Right arm in a cast with good perfusion distally.) - Neuro Neuro: Alert and oriented X 3, No motor deficit, No sensory deficit, Normal speech, Other (No tremors) Eye Opening: Spontaneous Motor: Obeys Commands Verbal: Oriented GCS Score: 15 - Psych Psych: Normal mood, Normal affect Results - Vitals Vitals: Vital Signs - 24 hr 03/11/24 03/11/24 03/11/24 13:54 16:40 17:05 Temperature 36.8 C Heart Rate 140 H 107 H 98 Respiratory 18 15 15 Rate Blood Pressure 170/100 H 162/121 H 152/104 H O2 Saturation 97 100 100 Oxygen O2 Source Room air - EKG (time done) 1420 EKG releavant findings:: EKG personally interpreted by author of this note. Relevant findings are: Rate: Rate (enter#) (114) Rhythm: Sinus tachycardia [place]: Normal Intervals: Normal [place] QRS: Normal Ischemia: Normal ST segments - Labs Labs: Laboratory Tests 03/11/24 03/11/24 03/11/24 14:50 14:50 14:50 WBC 5.7 RBC 4.43 L Hgb 13.8 L Hct 40.9 L MCV 92.3 MCH 31.2 H MCHC 33.7 RDW 12.8 Plt Count 274 MPV 8.9 Neut # (Auto) 4.0 Lymph # (Auto) 1.2 L [place] # (Auto) 0.4 Eos # (Auto) 0.0 Baso # (Auto) 0.0 Absolute Nucleated RBC 0.00 Nucleated RBC % 0.0 Sodium 137 Potassium 3.8 Chloride 95 L Carbon Dioxide 24 Anion Gap 18.0 H BUN 18 Creatinine 0.6 Estimated GFR (MDRD) 139 Glucose 186 H Calcium 9.5 Magnesium 1.2 L Total Bilirubin 0.8 AST 37 ALT 36 Alkaline Phosphatase 116 Total Creatine Kinase 161 Total Protein 7.9 Albumin 4.6 Globulin 3.3 Albumin/Globulin Ratio 1.4 Lipase < 10 L TSH 1.60 Urine Color YELLOW Urine Clarity CLEAR Urine pH 6.0 Ur Specific [place] >=1.030 H Urine Protein TRACE Urine Glucose (UA) >=1000 H Urine Ketones TRACE Urine Occult Blood NEGATIVE Urine Nitrite NEGATIVE Urine Bilirubin NEGATIVE Urine Urobilinogen 0.2 (NORMAL) Ur Leukocyte Esterase NEGATIVE Ur Microscopic Review NOT INDICATED Urine Culture Comments NOT INDICATED Salicylates < 1.5 Urine Opiates Screen POSITIVE H Ur Buprenorphine Scrn NEGATIVE Ur Oxycodone Screen NEGATIVE Urine Methadone Screen NEGATIVE Acetaminophen 0.1 Ur Barbiturates Screen POSITIVE H Ur Tricyclics Screen NEGATIVE Ur Phencyclidine Scrn NEGATIVE Ur Amphetamine Screen NEGATIVE U Methamphetamines Scrn NEGATIVE U Benzodiazepines Scrn POSITIVE H Urine Cocaine Screen NEGATIVE U Cannabinoids Screen NEGATIVE Ur Drug Screen Comment CUTOFF CONC BELOW: Ethyl Alcohol 59.4 SARS-CoV-2 (PCR) 03/11/24 15:50 WBC RBC Hgb Hct MCV MCH MCHC RDW Plt Count MPV Neut # (Auto) Lymph # (Auto) [place] # (Auto) Eos # (Auto) Baso # (Auto) Absolute Nucleated RBC Nucleated RBC % Sodium Potassium Chloride Carbon Dioxide Anion Gap BUN Creatinine Estimated GFR (MDRD) Glucose Calcium Magnesium Total Bilirubin AST ALT Alkaline Phosphatase Total Creatine Kinase Total Protein Albumin Globulin Albumin/Globulin Ratio Lipase TSH Urine Color Urine Clarity Urine pH Ur Specific [place] Urine Protein Urine Glucose (UA) Urine Ketones Urine Occult Blood Urine Nitrite Urine Bilirubin Urine Urobilinogen Ur Leukocyte Esterase Ur Microscopic Review Urine Culture Comments Salicylates Urine Opiates Screen Ur Buprenorphine Scrn Ur Oxycodone Screen Urine Methadone Screen Acetaminophen Ur Barbiturates Screen Ur Tricyclics Screen Ur Phencyclidine Scrn Ur Amphetamine Screen U Methamphetamines Scrn U Benzodiazepines Scrn Urine Cocaine Screen U Cannabinoids Screen Ur Drug Screen Comment Ethyl Alcohol SARS-CoV-2 (PCR) NOT DETECTED PD Medical Decision Making - ED course ED course: Seen by social work, it was clear that he would not be able to be placed tonight due to the above. Patient told me he wanted to go home if placement was not able to happen tonight and requested a prescription for a few lorazepam. Given only 6 as he is high risk. Departure - Departure Disposition: 01 Home, Self Care Clinical Impression: Alcohol withdrawal Qualifiers: Complication of substance-induced condition: uncomplicated Qualified Code(s): F10.930 - Alcohol use, unspecified with withdrawal, uncomplicated Condition: Stable Record reviewed to determine appropriate education?: Yes Instructions: ED Withdrawal Alcohol Prescriptions: LORazepam [Ativan] 1 mg PO TID PRN #6 tablet PRN Reason: Anxiety Comments: I sent the prescription for a few Ativan to the [facility] in [place]. Do not drink with this or at all. As discussed, it does not appear that we will be able to get you into detox today due to a combination of your medical comorbidities, pain pump, broken wrist, etc. Continue your work with the [facility] for options of placement and withdrawal treatment. Return if worse. Forms: PCP List Discharge Date/Time: 03/11/24 17:06
[2024-03-11 15:51] LABS: AMPHETAMINE SCREEN,URINE NEGATIVE (NEGATIVE); BARBITURATE SCREEN,UR POSITIVE (NEGATIVE); BENZODIAZEPINES SCREEN, URINE POSITIVE (NEGATIVE); BUPRENORPHINE SCREEN, URINE NEGATIVE (NEGATIVE); METHADONE SCREEN, URINE NEGATIVE (NEGATIVE); METHAMPHETAMINES SCREEN, URINE NEGATIVE (NEGATIVE); OPIATE SCREEN, URINE POSITIVE (NEGATIVE); OXYCODONE SCREEN, URINE NEGATIVE (NEGATIVE); TRICYCLIC ANTIDEPRESSANT,URINE NEGATIVE (NEGATIVE)
[2024-03-11 16:44] VITALS: O2SAT 100
[2024-03-11 17:13] VITALS: BP 152/104
== END 2024-03-11 17:06 | disposition home or self-care (01) ==
LOC: ED 13:45
DX: F10.930 Alcohol use, unspecified with withdrawal, uncomplicated (principal); I10 Essential (primary) hypertension; E78.00 Pure hypercholesterolemia, unspecified; G47.30 Sleep apnea, unspecified; E10.42 Type 1 diabetes mellitus with diabetic polyneuropathy; Z79.4 Long term (current) use of insulin; G89.29 Other chronic pain; Z96.89 Presence of other specified functional implants; Z79.899 Other long term (current) drug therapy
CPT/HCPCS: 36415; 80053; 80143; 80306; 81003; 82550; 83690; 83735; 84443; 85025; 87635; 93005; 99284; A9270; G0480; 80179; 81001; 82077; 87086

== ENCOUNTER 2024-04-12 14:53 | Outpatient (CLI) | payer MEDICARE | END 2024-04-12 23:59 | disposition critical access hospital (66) | LOC: EMS 14:53 | DX: Z04.6 Encounter for general psychiatric examination, requested by authority (principal); R45.851 Suicidal ideations; F10.129 Alcohol abuse with intoxication, unspecified | CPT/HCPCS: A0425; A0429 ==

== ENCOUNTER 2024-04-17 09:31 | Outpatient (CLI) | payer MEDICARE | END 2024-04-17 23:59 | disposition critical access hospital (66) | LOC: EMS 09:31 | DX: R45.851 Suicidal ideations (principal); F10.129 Alcohol abuse with intoxication, unspecified; M54.6 Pain in thoracic spine; R29.6 Repeated falls | CPT/HCPCS: A0425; A0429 ==

== ENCOUNTER 2024-04-17 09:47 | Emergency (ER) | payer MEDICARE ==
[2024-04-17 10:15] VITALS: BP 125/71; O2SAT 94
--- NOTE | 2024-04-17 10:24 | ED Physician Documentation ---
PD HPI ALTERED MENTAL STATUS - Stated complaint Stated Complaint: ETOH/SI - Chief complaint Chief Complaint: MHE - History obtained from History obtained from: Patient, EMS - History of Present Illness Timing - onset: Today Timing - duration: Days (1) Timing - details: Gradual onset (The patient states he drinks regularly. He had been here in the ER for couple of days for depression as well as substance use. He had received some medication here to help. Discharge from the ER and he states he drank heavily and now wants treatment for alcohol detox.) Quality / character: Other (wanting detox.) Contributing factors: Intoxicated Basline status: Alert and oriented X 3, Ambulatory PD PAST MEDICAL HISTORY - Past Medical History Past Medical History: Yes Cardiovascular: Hypertension, High cholesterol Respiratory: Sleep apnea Neuro: Peripheral neuropathy, Other Endocrine/Autoimmune: Type 1 diabetes GI: GERD, Chronic constipation, Other : Other HEENT: None Psych: Depression, Bipolar disorder, Other Musculoskeletal: Osteoarthritis, Chronic back pain Derm: Other - Past Surgical History Past Surgical History: No General: Appendectomy, Other Ortho: Carpal Tunnel surgery, Spine surgery, 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:  Derm: Skin grafts - Present Medications Home Medications: Ambulatory Orders Medication Instructions Recorded Confirmed Losartan Potassium [Cozaar] 100 mg PO DAILY 01/04/23 04/14/24 Doxepin [SINEquan] 10 mg PO QPM 09/22/23 04/14/24 Gabapentin [Neurontin] 600 mg PO BID 09/22/23 04/14/24 ARIPiprazole [Aripiprazole] 15 mg PO DAILY #30 tab 01/04/24 04/14/24 Atorvastatin Calcium 40 mg PO HS #30 tab 01/04/24 04/14/24 Metformin HCl 1,000 mg PO BID #60 tab 01/04/24 04/14/24 Propranolol HCl 20 mg PO BID #60 tab 01/04/24 04/14/24 Sertraline HCl 100 mg PO DAILY #30 tab 01/04/24 04/14/24 cloNIDine [Catapres] 0.1 mg PO HS #30 tab 01/04/24 04/14/24 Gabapentin [Neurontin] 100 mg PO TID #90 cap 04/14/24 Hydromorphone HCl/Pf [Dilaudid] 9 mg IT DAILY 04/14/24 04/14/24 Insulin Glargine [Lantus Solostar] 20 unit SUBQ QPM #1 each 04/14/24 Insulin Lispro [Insulin Lispro 0 - 12 unit SUBQ ACHS 30 Days #1 04/14/24 Glenn Brianna] each Lurasidone HCl [Latuda] 60 mg PO BID 04/14/24 04/14/24 Meloxicam [Mobic] 7.5 mg PO BID 10 Days #20 tablet 04/14/24 Omeprazole 20 mg PO DAILY #30 tab 04/14/24 QUEtiapine [SEROquel] 100 mg PO QPM #30 tablet 04/14/24 hydrOXYzine HCL [Hydroxyzine HCl] 25 mg PO BID #30 tab 04/14/24 traZODone [Desyrel] 50 mg PO HS #30 tablet 04/14/24 LORazepam [Ativan] 1 mg PO Q6H PRN #25 tablet 04/17/24 Ondansetron Odt [Zofran] 4 mg TL Q6H PRN #20 tablet 04/17/24 PHENobarbitaL [Phenobarbital] 30 mg PO BID 6 Days #9 tablet 04/17/24 - Allergies Allergies/Adverse Reactions: Allergies Allergy/AdvReac Type Severity Reaction Status Date / Time penicillin G Allergy Severe hearing Verified 04/17/24 10:05 loss left ear povidone-iodine Allergy Severe Respiratory Verified 04/17/24 10:05 [From Betadine] soap * [From Betadine] Allergy Severe Respiratory Verified 04/17/24 10:05 adhesive Allergy Unknown Verified 04/17/24 10:05 iodine Allergy Unknown Verified 04/17/24 10:05 shellfish derived Allergy skin Verified 04/17/24 10:05 burning - Social History Does the pt smoke?: No Smoking Status: Never smoker Does the pt drink ETOH?: Yes Does the pt have substance abuse?: No - Immunizations Immunizations are current?: Yes - POLST Patient has POLST: No POLST Status: Full Code PD ED PE NORMAL - Vitals Vital signs reviewed: Yes - General General: Alert and oriented X 3, Well developed/nourished, Other (alcohol on breath. Some slurring of speach and antalgic gait c/w intoxication. ) - HEENT HEENT: Atraumatic - Neck Neck: Supple, no meningeal sign, No adenopathy - Cardiac Cardiac: RRR, No murmur - Respiratory Respiratory: Clear bilaterally - Abdomen Abdomen: Soft, Non tender - Derm Derm: Normal color, Warm and dry - Neuro Neuro: No motor deficit. No: Normal speech (some slurring of it but content is normal, though repetitive. Keeps asking for detox treatment. No tremors. ) Results - Vitals Vitals: Oxygen O2 Source Room air - Labs Labs: Laboratory Tests 04/17/24 04/17/24 04/17/24 10:24 10:24 10:24 WBC 5.4 RBC 3.84 L Hgb 12.1 L Hct 36.9 L MCV 96.1 H MCH 31.5 H MCHC 32.8 RDW 13.2 Plt Count 434 MPV 9.7 Neut # (Auto) 2.4 Lymph # (Auto) 2.0 [place] # (Auto) 0.6 Eos # (Auto) 0.3 Baso # (Auto) 0.0 Absolute Nucleated RBC 0.00 Nucleated RBC % 0.0 Sodium 138 Potassium 4.5 Chloride 99 L Carbon Dioxide 30 Anion Gap 9.0 BUN 19 Creatinine 0.7 Estimated GFR (MDRD) 117 Glucose 293 H Calcium 9.7 Magnesium 1.6 L Total Bilirubin 0.2 AST 17 ALT 15 Alkaline Phosphatase 120 Total Creatine Kinase 102 Total Protein 7.7 Albumin 4.3 Globulin 3.4 Albumin/Globulin Ratio 1.3 Lipase 11 Vitamin B12 348 Folate 15.8 TSH 1.04 Urine Color YELLOW Urine Clarity CLEAR Urine pH 6.0 Ur Specific [place] 1.015 Urine Protein NEGATIVE Urine Glucose (UA) >=1000 H Urine Ketones NEGATIVE Urine Occult Blood NEGATIVE Urine Nitrite NEGATIVE Urine Bilirubin NEGATIVE Urine Urobilinogen 0.2 (NORMAL) Ur Leukocyte Esterase NEGATIVE Ur Microscopic Review NOT INDICATED Urine Culture Comments NOT INDICATED Salicylates < 1.5 Urine Opiates Screen POSITIVE H Ur Buprenorphine Scrn NEGATIVE Ur Oxycodone Screen NEGATIVE Urine Methadone Screen NEGATIVE Acetaminophen 0.1 Ur Barbiturates Screen POSITIVE H Ur Tricyclics Screen NEGATIVE Ur Phencyclidine Scrn NEGATIVE Ur Amphetamine Screen NEGATIVE U Methamphetamines Scrn NEGATIVE U Benzodiazepines Scrn POSITIVE H Urine Cocaine Screen NEGATIVE U Cannabinoids Screen NEGATIVE Ur Drug Screen Comment CUTOFF CONC BELOW: Ethyl Alcohol 224.4 SARS-CoV-2 (PCR) 04/17/24 10:55 WBC RBC Hgb Hct MCV MCH MCHC RDW Plt Count MPV Neut # (Auto) Lymph # (Auto) [place] # (Auto) Eos # (Auto) Baso # (Auto) Absolute Nucleated RBC Nucleated RBC % Sodium Potassium Chloride Carbon Dioxide Anion Gap BUN Creatinine Estimated GFR (MDRD) Glucose Calcium Magnesium Total Bilirubin AST ALT Alkaline Phosphatase Total Creatine Kinase Total Protein Albumin Globulin Albumin/Globulin Ratio Lipase Vitamin B12 Folate TSH Urine Color Urine Clarity Urine pH Ur Specific [place] Urine Protein Urine Glucose (UA) Urine Ketones Urine Occult Blood Urine Nitrite Urine Bilirubin Urine Urobilinogen Ur Leukocyte Esterase Ur Microscopic Review Urine Culture Comments Salicylates Urine Opiates Screen Ur Buprenorphine Scrn Ur Oxycodone Screen Urine Methadone Screen Acetaminophen Ur Barbiturates Screen Ur Tricyclics Screen Ur Phencyclidine Scrn Ur Amphetamine Screen U Methamphetamines Scrn U Benzodiazepines Scrn Urine Cocaine Screen U Cannabinoids Screen Ur Drug Screen Comment Ethyl Alcohol SARS-CoV-2 (PCR) NOT DETECTED PD Medical Decision Making - ED course Complexity details: re-evaluated patient (he was here awhile for social work. BAL was under 250 so could get started on looking for detox. He has had problems with it before due to comorbidities. He started withs hakiness and feeling early withdrawal, so given meds here in ER that helped symtpoms. ), considered differential (states regular large amount of vodka. Had drank just before coming here to help withdrawal, per pt. Want detox. Aksing for meds but is not nearly in withdrawal as yet, though likely will well before alchol level zero. ), d/w patient, d/w risk consultant (Social [place] talked with fidel nd he was not seeming really commited to stopping drinking, stating he would be happy to go home and drink more. He was agreeable to meds for withdrawal and asked for that. Detox in [place] did not have beds and had declined him in the past. ) Departure - Departure Disposition: 01 Home, Self Care Clinical Impression: Alcohol use disorder Condition: Stable Record reviewed to determine appropriate education?: Yes Instructions: ED Withdrawal Alcohol Follow-Up: Ling Garcia ARNP [Primary Care Provider] - Prescriptions: LORazepam [Ativan] 1 mg PO Q6H PRN #25 tablet PRN Reason: Alcohol Withdrawal PHENobarbitaL [Phenobarbital] 30 mg PO BID 6 Days #9 tablet Ondansetron Odt [Zofran] 4 mg TL Q6H PRN #20 tablet PRN Reason: Nausea / Vomiting Comments: If you are wanting detox and alcohol rehab, then you do need to call the detox facilities yourself as they want phone intake interviews. Do not drink alcohol. I wrote prescriptions for medication for withdrawal including phenobarbital and lorazepam. Take these as prescribed. Stay well-hydrated. Use ondansetron if needed for nausea. Continue your other usual medications. Return as needed. I sent your prescription to your preferred pharmacy. Forms: PCP List Discharge Date/Time: 04/17/24 16:09
[2024-04-17 10:48] LABS: BASOPHILS % (AUTO) 0.7 %; EOSINOPHILS # (AUTO) 0.3 10^3/uL (0.0-0.7); HCT - HEMATOCRIT 36.9 % (42.0-52.0); HGB - HEMOGLOBIN 12.1 g/dL (14.0-18.0); LYMPHOCYTES % (AUTO) 36.9 %; MEAN CORPUSCULAR HEMOGLOBIN 31.5 pg (27.0-31.0); MEAN CORPUSCULAR HGB CONC 32.8 g/dL (32.0-36.0); MEAN CORPUSCULAR VOLUME 96.1 fL (80.0-94.0); MEAN PLATELET VOLUME 9.7 fL (7.4-11.4); MONOCYTES # (AUTO) 0.6 10^3/uL (0.0-1.0); MONOCYTES % (AUTO) 11.9 %; NEUTROPHILS # (AUTO) 2.4 10^3/uL (1.5-6.6); NEUTROPHILS % (AUTO) 44.1 %; PLT - PLATELET COUNT 434 10^3/uL (130-450); RED BLOOD COUNT 3.84 10^6/uL (4.70-6.10); RED CELL DISTRIBUTION WIDTH 13.2 % (12.0-15.0); WHITE BLOOD COUNT 5.4 x10^3/uL (4.8-10.8)
[2024-04-17 10:53] LABS: BILIRUBIN,URINE NEGATIVE (NEGATIVE); GLUCOSE, URINE (UA) >=1000 mg/dL (NEGATIVE); KETONES,URINE (UA) NEGATIVE (NEGATIVE); LEUKOCYTE ESTERASE, URINE NEGATIVE (NEGATIVE); NITRITE,URINE NEGATIVE (NEGATIVE); OCCULT BLOOD,URINE NEGATIVE (NEGATIVE); PROTEIN,URINE NEGATIVE (NEGATIVE); UROBILINOGEN,URINE 0.2 (NORMAL) E.U./dL (NORMAL)
[2024-04-17 11:00] LABS: CLARITY,URINE CLEAR (CLEAR)
[2024-04-17] MEDS: THIAMINE INJ 100 MG, FOLIC ACID INJ 1 MG in SODIUM CHLORIDE 0.9% 1,000 ML IV STA (11:00)
[2024-04-17 11:02] LABS: ACETAMINOPHEN 0.1 ug/mL; ALBUMIN 4.3 g/dL (3.2-5.5); ALBUMIN/GLOBULIN RATIO 1.3 (1.0-2.2); ALKALINE PHOSPHATASE 120 IU/L (42-121); ALT ALANINE AMINOTRANSFERASE 15 IU/L (10-60); AST ASPARTATE AMINOTRANSFERASE 17 IU/L (10-42); BILIRUBIN,TOTAL 0.2 mg/dL (0.2-1.0); BUN - BLOOD UREA NITROGEN 19 mg/dL (6-20); CALCIUM 9.7 mg/dL (8.5-10.3); CARBON DIOXIDE - CO2 30 mmol/L (21-32); CHLORIDE 99 mmol/L (101-111); CK- CREATINE KINASE 102 IU/L (30-223); CREATININE 0.7 mg/dL (0.6-1.3); ETOH - ETHANOL 224.4 mg/dL; GFR - MDRD 117 (>89); GLUCOSE 293 mg/dL (74-104); LIPASE 11 U/L (11-82); MAGNESIUM 1.6 mg/dL (1.7-2.3); POTASSIUM 4.5 mmol/L (3.5-4.5); SODIUM 138 mmol/L (135-145); TOTAL PROTEIN 7.7 g/dL (6.4-8.9)
[2024-04-17 11:03] LABS: AMPHETAMINE SCREEN,URINE NEGATIVE (NEGATIVE); BARBITURATE SCREEN,UR POSITIVE (NEGATIVE); BENZODIAZEPINES SCREEN, URINE POSITIVE (NEGATIVE); BUPRENORPHINE SCREEN, URINE NEGATIVE (NEGATIVE); COCAINE SCREEN URINE NEGATIVE (NEGATIVE); METHADONE SCREEN, URINE NEGATIVE (NEGATIVE); METHAMPHETAMINES SCREEN, URINE NEGATIVE (NEGATIVE); OPIATE SCREEN, URINE POSITIVE (NEGATIVE); OXYCODONE SCREEN, URINE NEGATIVE (NEGATIVE); THC CANNABINOID SCREEN, URINE NEGATIVE (NEGATIVE); TRICYCLIC ANTIDEPRESSANT,URINE NEGATIVE (NEGATIVE)
[2024-04-17 11:08] LABS: SALICYLATE < 1.5 mg/dL
[2024-04-17 11:16] LABS: THYROID STIMULATING HORMONE 1.04 uIU/mL (0.34-5.60)
[2024-04-17] MEDS: PHENobarbital 65 MG/ML VIAL IV STA ×2 (13:40→16:02)
[2024-04-17] MEDS: LORazepam 2 MG/ML VIAL IVP STA (16:02)
[2024-04-17] MEDS: LORazepam 1 MG TABLET PO STA (16:05)
[2024-04-17] MEDS: PHENobarbitaL 32.4 MG TABLET PO STA (16:05)
== END 2024-04-17 16:09 | disposition home or self-care (01) ==
LOC: EDUNIT# → ED 09:47
DX: F10.929 Alcohol use, unspecified with intoxication, unspecified (principal); Y90.8 Blood alcohol level of 240 mg/100 ml or more; I10 Essential (primary) hypertension; E78.00 Pure hypercholesterolemia, unspecified; G47.30 Sleep apnea, unspecified; E10.42 Type 1 diabetes mellitus with diabetic polyneuropathy; Z79.4 Long term (current) use of insulin; Z79.899 Other long term (current) drug therapy
CPT/HCPCS: 36415; 80053; 80143; 80306; 81003; 82550; 82607; 82746; 83690; 83735; 84443; 85025; 87635; 96365; 96366; 99283; 99284; A9270; G0480; J2560; J3411; J8499; 80179; 81001; 82077; 87086

== ENCOUNTER 2024-04-30 14:06 | Outpatient (CLI) | payer MEDICARE | END 2024-04-30 23:59 | disposition critical access hospital (66) | LOC: EMS 14:06 | DX: F10.129 Alcohol abuse with intoxication, unspecified (principal) | CPT/HCPCS: A0425; A0429 ==

== ENCOUNTER 2024-04-30 14:25 | Emergency (ER) | payer MEDICARE ==
--- NOTE | 2024-04-30 14:30 | ED Physician Documentation ---
History of Present Illness - Stated complaint Stated Complaint: Alcohol problem - Additonal information Additional information: 54-year-old gentleman with longstanding alcohol use disorder. EMS states that he was just out of scheduled detox for the past couple days and then went home and immediately started drinking again. A caregiver came to check on him and found him to have slurred speech and altered gait became concerned and called EMS. Patient is on a Dilaudid pump for chronic back pain. EMS noted a large bruise on his right lower back and buttock. He is not sure about falls. 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:  Derm: Skin grafts - Present Medications Home Medications: Ambulatory Orders Medication Instructions Recorded Confirmed Losartan Potassium [Cozaar] 100 mg PO DAILY 01/04/23 04/14/24 Doxepin [SINEquan] 10 mg PO QPM 09/22/23 04/14/24 Gabapentin [Neurontin] 600 mg PO BID 09/22/23 04/14/24 ARIPiprazole [Aripiprazole] 15 mg PO DAILY #30 tab 01/04/24 04/14/24 Atorvastatin Calcium 40 mg PO HS #30 tab 01/04/24 04/14/24 Metformin HCl 1,000 mg PO BID #60 tab 01/04/24 04/14/24 Propranolol HCl 20 mg PO BID #60 tab 01/04/24 04/14/24 Sertraline HCl 100 mg PO DAILY #30 tab 01/04/24 04/14/24 cloNIDine [Catapres] 0.1 mg PO HS #30 tab 01/04/24 04/14/24 Gabapentin [Neurontin] 100 mg PO TID #90 cap 04/14/24 Hydromorphone HCl/Pf [Dilaudid] 9 mg IT DAILY 04/14/24 04/14/24 Insulin Glargine [Lantus Solostar] 20 unit SUBQ QPM #1 each 04/14/24 Insulin Lispro [Insulin Lispro 0 - 12 unit SUBQ ACHS 30 Days #1 04/14/24 Glenn Brianna] each Lurasidone HCl [Latuda] 60 mg PO BID 04/14/24 04/14/24 Meloxicam [Mobic] 7.5 mg PO BID 10 Days #20 tablet 04/14/24 Omeprazole 20 mg PO DAILY #30 tab 04/14/24 QUEtiapine [SEROquel] 100 mg PO QPM #30 tablet 04/14/24 hydrOXYzine HCL [Hydroxyzine HCl] 25 mg PO BID #30 tab 04/14/24 traZODone [Desyrel] 50 mg PO HS #30 tablet 04/14/24 LORazepam [Ativan] 1 mg PO Q6H PRN #25 tablet 04/17/24 Ondansetron Odt [Zofran] 4 mg TL Q6H PRN #20 tablet 04/17/24 PHENobarbitaL [Phenobarbital] 30 mg PO BID 6 Days #9 tablet 04/17/24 - Allergies Allergies/Adverse Reactions: Allergies Allergy/AdvReac Type Severity Reaction Status Date / Time penicillin G Allergy Severe hearing Verified 04/30/24 16:15 loss left ear povidone-iodine Allergy Severe Respiratory Verified 04/30/24 16:15 [From Betadine] soap * [From Betadine] Allergy Severe Respiratory Verified 04/30/24 16:15 adhesive Allergy Unknown Verified 04/30/24 16:15 iodine Allergy Unknown Verified 04/30/24 16:15 shellfish derived Allergy skin Verified 04/30/24 16:15 burning - Social History Does the pt smoke?: No Smoking Status: Never smoker Does the pt drink ETOH?: Yes Does the pt have substance abuse?: No - Immunizations Immunizations are current?: Yes - POLST Patient has POLST: No POLST Status: Full Code PD ED PE NORMAL - Vitals Vital signs reviewed: Yes - General General: No acute distress, Other (Smells of alcohol, slurred speech) - Neck Neck: Supple, no meningeal sign - Cardiac Cardiac: RRR, No murmur - Respiratory Respiratory: No respiratory distress - Abdomen Abdomen: Normal bowel sounds, Soft - Back Back: No spinal TTP, Other - Derm Derm: Other - Neuro Neuro: Other (Slurred speech no focal deficits.) Eye Opening: Spontaneous Motor: Obeys Commands - Free text exam Free text exam: Complex stellate laceration above left eyelid approximately 4 cm x 4 cm of total tissue involvement Results - Vitals Vitals: Vital Signs - 24 hr 04/30/24 04/30/24 14:33 14:39 Temperature 36.8 C Heart Rate 106 H 118 H Respiratory 15 17 Rate Blood Pressure 143/79 H 150/118 H O2 Saturation 94 94 Oxygen O2 Source Room air - Labs Labs: Laboratory Tests 04/30/24 04/30/24 04/30/24 14:43 14:43 15:15 WBC 4.8 RBC 4.06 L Hgb 12.5 L Hct 38.4 L MCV 94.6 H MCH 30.8 MCHC 32.6 RDW 13.2 Plt Count 286 MPV 9.1 Neut # (Auto) 1.7 Lymph # (Auto) 2.4 Quay # (Auto) 0.4 Eos # (Auto) 0.2 Baso # (Auto) 0.0 Absolute Nucleated RBC 0.00 Nucleated RBC % 0.0 PT 11.9 INR 1.1 Sodium 141 Potassium 4.0 Chloride 99 L Carbon Dioxide 29 Anion Gap 13.0 BUN 7 Creatinine 0.6 Estimated GFR (MDRD) 139 Glucose 198 H Calcium 9.2 Magnesium 1.3 L Total Bilirubin 0.4 AST 30 ALT 19 Alkaline Phosphatase 127 H Total Protein 7.6 Albumin 4.5 Globulin 3.1 Albumin/Globulin Ratio 1.5 Lipase < 10 L Urine Opiates Screen Ur Buprenorphine Scrn Ur Oxycodone Screen Urine Methadone Screen Ur Barbiturates Screen Ur Tricyclics Screen Ur Phencyclidine Scrn Ur Amphetamine Screen U Methamphetamines Scrn U Benzodiazepines Scrn Urine Cocaine Screen U Cannabinoids Screen Ur Drug Screen Comment Ethyl Alcohol 353.9 04/30/24 16:45 WBC RBC Hgb Hct MCV MCH MCHC RDW Plt Count MPV Neut # (Auto) Lymph # (Auto) Quay # (Auto) Eos # (Auto) Baso # (Auto) Absolute Nucleated RBC Nucleated RBC % PT INR Sodium Potassium Chloride Carbon Dioxide Anion Gap BUN Creatinine Estimated GFR (MDRD) Glucose Calcium Magnesium Total Bilirubin AST ALT Alkaline Phosphatase Total Protein Albumin Globulin Albumin/Globulin Ratio Lipase Urine Opiates Screen POSITIVE H Ur Buprenorphine Scrn NEGATIVE Ur Oxycodone Screen NEGATIVE Urine Methadone Screen NEGATIVE Ur Barbiturates Screen POSITIVE H Ur Tricyclics Screen NEGATIVE Ur Phencyclidine Scrn NEGATIVE Ur Amphetamine Screen NEGATIVE U Methamphetamines Scrn NEGATIVE U Benzodiazepines Scrn POSITIVE H Urine Cocaine Screen NEGATIVE U Cannabinoids Screen NEGATIVE Ur Drug Screen Comment CUTOFF CONC BELOW: Ethyl Alcohol PD Medical Decision Making - ED course Complexity details: reviewed old records, reviewed results, re-evaluated patient, considered differential ED course: Patient presents acutely intoxicated with alcohol with bruising of the low back and left upper arm. Alcohol level is markedly elevated at greater than 300. Plain films of the left arm and low back are unremarkable. 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 At this time CT of his head and C-spine are pending. He is much more cooperative than earlier appears to be metabolizing his alcohol quite nicely. His main concern right now is how he is going to get home. My colleague Dr. Bailey will follow-up on the CT of his C-spine and brain to exclude trauma, though I note he is completely nonfocal he has clearly fallen down as diffuse bruising consistent with his alcohol abuse. Departure - Departure Clinical Impression: Alcohol intoxication, Multiple contusions Instructions: ED Alcohol Intoxication Forms: PCP List
[2024-04-30 14:50] LABS: BASOPHILS % (AUTO) 0.8 %; EOSINOPHILS # (AUTO) 0.2 10^3/uL (0.0-0.7); EOSINOPHILS % (AUTO) 3.2 %; HCT - HEMATOCRIT 38.4 % (42.0-52.0); HGB - HEMOGLOBIN 12.5 g/dL (14.0-18.0); LYMPHOCYTES # (AUTO) 2.4 10^3/uL (1.5-3.5); LYMPHOCYTES % (AUTO) 51.2 %; MEAN CORPUSCULAR HEMOGLOBIN 30.8 pg (27.0-31.0); MEAN CORPUSCULAR HGB CONC 32.6 g/dL (32.0-36.0); MEAN CORPUSCULAR VOLUME 94.6 fL (80.0-94.0); MEAN PLATELET VOLUME 9.1 fL (7.4-11.4); MONOCYTES # (AUTO) 0.4 10^3/uL (0.0-1.0); MONOCYTES % (AUTO) 8.6 %; NEUTROPHILS # (AUTO) 1.7 10^3/uL (1.5-6.6); PLT - PLATELET COUNT 286 10^3/uL (130-450); RED BLOOD COUNT 4.06 10^6/uL (4.70-6.10); RED CELL DISTRIBUTION WIDTH 13.2 % (12.0-15.0); WHITE BLOOD COUNT 4.8 x10^3/uL (4.8-10.8)
[2024-04-30 15:02] LABS: ALBUMIN 4.5 g/dL (3.2-5.5); ALBUMIN/GLOBULIN RATIO 1.5 (1.0-2.2); ALKALINE PHOSPHATASE 127 IU/L (42-121); ALT ALANINE AMINOTRANSFERASE 19 IU/L (10-60); AST ASPARTATE AMINOTRANSFERASE 30 IU/L (10-42); BILIRUBIN,TOTAL 0.4 mg/dL (0.2-1.0); BUN - BLOOD UREA NITROGEN 7 mg/dL (6-20); CALCIUM 9.2 mg/dL (8.5-10.3); CARBON DIOXIDE - CO2 29 mmol/L (21-32); CHLORIDE 99 mmol/L (101-111); CREATININE 0.6 mg/dL (0.6-1.3); ETOH - ETHANOL 353.9 mg/dL; GFR - MDRD 139 (>89); GLUCOSE 198 mg/dL (74-104); LIPASE < 10 U/L (11-82); MAGNESIUM 1.3 mg/dL (1.7-2.3); SODIUM 141 mmol/L (135-145); TOTAL PROTEIN 7.6 g/dL (6.4-8.9)
--- NOTE | 2024-04-30 15:12 | XRAY Report ---
PROCEDURE: Lumbar Spine 2-3V INDICATIONS: fall TECHNIQUE: 3 views of the lumbar spine were acquired. COMPARISON: None. FINDINGS: Visualization is limited secondary to soft tissue penetration. Surgical change: Presumed stimulator device is present. Bones: 5 [id number] vertebrae are present. There is multilevel trace retrolisthesis. Multilevel moderate to severe disc and foraminal narrowing are present. Multilevel small anterior osteophytes. No vertebral body compression fractures. No suspicious bony lesions. Soft tissues: Overlying bowel gas pattern is normal. No suspicious soft tissue calcifications. IMPRESSION: Somewhat limited exam. No visualized acute fracture or dislocation. However, occult injury cannot be excluded. Recommend short interval imaging follow-up in 7-10 days as clinically indicated for additio nal evaluation. Reviewed by: Maddi Diallo MD on 04/30/2024 3:11 PM PDT Approved by: Maddi Diallo MD on 04/30/2024 3:11 PM PDT Station ID: [id number]
--- NOTE | 2024-04-30 15:13 | XRAY Report ---
PROCEDURE: Humerus LT INDICATIONS: fall TECHNIQUE: 2 views of the humerus were acquired. COMPARISON: None. FINDINGS: Bones: No fractures or dislocations. No suspicious bony lesions. Soft tissues: No suspicious soft tissue calcifications or masses. IMPRESSION: No visualized acute fracture or dislocation. However, occult injury cannot be excluded. Recommend jigna rt interval imaging follow-up in 7-10 days as clinically indicated for additional evaluation. Reviewed by: Maddi Diallo MD on 04/30/2024 3:12 PM PDT Approved by: Maddi Diallo MD on 04/30/2024 3:12 PM PDT Station ID: [id number]
--- NOTE | 2024-04-30 15:43 | ED Physician Documentation ---
Restraint [id number] - Immediate Situation Face to Face Evaluation Date: 04/30/24 Face to Face Evaluation Time: 15:35 - Patient's Reaction & Behaviors Safety: Non-compliant, Unable to Follow Commands Harm: Potential harm to self - Behavioral Condition Attitude: Other Behavior: Uncooperative, Belligerent Orientation: Place Mood: Labile - Evaluation Current Medical Condition Relating to Need for Restraint: alcohol intoxication, falls Pertinent History/Illicit Drugs/Medications/Results: ETOH use disorder
[2024-04-30 15:46] LABS: INR 1.1 (0.8-1.2); PT - PROTHROMBIN TIME 11.9 secs (9.9-12.6)
[2024-04-30 17:06] LABS: AMPHETAMINE SCREEN,URINE NEGATIVE (NEGATIVE); BARBITURATE SCREEN,UR POSITIVE (NEGATIVE); BENZODIAZEPINES SCREEN, URINE POSITIVE (NEGATIVE); BUPRENORPHINE SCREEN, URINE NEGATIVE (NEGATIVE); COCAINE SCREEN URINE NEGATIVE (NEGATIVE); METHADONE SCREEN, URINE NEGATIVE (NEGATIVE); METHAMPHETAMINES SCREEN, URINE NEGATIVE (NEGATIVE); OPIATE SCREEN, URINE POSITIVE (NEGATIVE); OXYCODONE SCREEN, URINE NEGATIVE (NEGATIVE); THC CANNABINOID SCREEN, URINE NEGATIVE (NEGATIVE); TRICYCLIC ANTIDEPRESSANT,URINE NEGATIVE (NEGATIVE)
--- NOTE | 2024-04-30 20:06 | ED Physician Documentation ---
ED Addendum - Addendum Addendum: 05/01/24 09:09 I received signout/turnover of care of this patient from Dr. Jade; please see his note for complete H&P. In short, this patient is a long-standing alcoholic was been seen in this emergency department many times, nearly all of these visits have been related to his alcoholism. Per the sign-out, patient was recently in a rehab/detox facility and immediately resumed drinking alcohol upon release. A caregiver found the patient intoxicated with slurred speech and unsteady gait and thus called 911. At the time of signout, blood tests were ordered and completed; the most notable finding is a serum alcohol level over 350. At the time of signout, the only test pending are CT scans of the head and neck. These are undertaken early in my shift and without concerning findings (cervical spondylosis on cervical spine CT, otherwise normal studies). After completions of these tests, patient is observed in the emergency department for purposes of either obtaining an appropriate ride or else exhibiting clinical sobriety and gait that is steady enough to be able to safely discharge him to the waiting room. Eventually patient was able to demonstrate steady gait, standing and ambulating without assistance. He says he will take a taxi home. Return precautions reviewed. Patient repeatedly denies SI on my shift.
--- NOTE | 2024-04-30 20:22 | CT Report ---
PROCEDURE: Head WO INDICATIONS: fall TECHNIQUE: Noncontrast 4.5 mm thick angled axial sections acquired from the foramen magnum to the vertex. For r adiation dose reduction, the following was used: automated exposure control, adjustment of mA and/or kV according to patient size. COMPARISON: 02/29/2024. FINDINGS: Image quality: Diagnostic. CSF spaces: Basal cisterns are patent. No extra-axial fluid collections. Ventricles are normal in size and shape. Brain: No midline shift. No intracranial masses or hemorrhage. Marr-white matter interface is norm al. Skull and face: Calvarium and visualized facial bones are intact, without suspicious lesions. Sinuses: Visualized sinuses and mastoids are clear. IMPRESSION: No acute intracranial pathology. No acute calvarial fractures Reviewed by: Carlos Ling MD on 04/30/2024 8:21 PM PDT Approved by: Carlos Ling MD on 04/30/2024 8:21 PM PDT Station ID: [id number]
--- NOTE | 2024-04-30 20:24 | CT Report ---
PROCEDURE: Cervical Spine WO INDICATIONS: fall TECHNIQUE: Noncontrast 3 mm thick sections acquired from the skull base to the T4 level. Sagittal and coronal r eformats were then constructed. For radiation dose reduction, the following was used: automated exp osure control, adjustment of mA and/or kV according to patient size. COMPARISON: 11/23/2023 FINDINGS: Image quality: Diagnostic. Bones: No acute fractures or dislocations. No acute compression fractures of the vertebral bodies. Craniocervical junction is intact. C1-C2 relationship is preserved. Visualized superior ribs are inta ct. Stable appearance of moderate to severe multilevel cervical spondylosis most severe at C5-6 and C6-7. Soft tissues: Prevertebral soft tissues are normal in thickness. No paravertebral hematomas. No ap ical pneumothoraces. IMPRESSION: CT cervical spine without acute fracture or traumatic malalignment. Stable appearance of multilevel cervical spondylosis. Reviewed by: Carlos Ling MD on 04/30/2024 8:23 PM PDT Approved by: Carlos Ling MD on 04/30/2024 8:23 PM PDT Station ID: [id number]
[2024-04-30] MEDS: ONDANSETRON ODT 4 MG TABLET TL STA (22:07)
[2024-05-01 00:21] VITALS: BP 148/90; O2SAT 97
== END 2024-04-30 22:38 | disposition home or self-care (01) ==
LOC: EDUNIT# → ED 14:25
DX: S30.0XXA Contusion of lower back and pelvis, initial encounter (principal); S50.12XA Contusion of left forearm, initial encounter; X58.XXXA Exposure to other specified factors, initial encounter; F10.129 Alcohol abuse with intoxication, unspecified; I10 Essential (primary) hypertension; E78.00 Pure hypercholesterolemia, unspecified; E10.42 Type 1 diabetes mellitus with diabetic polyneuropathy; Z79.4 Long term (current) use of insulin; Z79.899 Other long term (current) drug therapy
CPT/HCPCS: 36415; 70450; 72100; 72125; 73060; 80053; 80306; 83690; 83735; 85025; 85610; 99284; 99285; G0480; Q0162; 82077

== ENCOUNTER 2024-05-01 08:53 | Outpatient (CLI) | payer MEDICARE | END 2024-05-01 23:59 | disposition critical access hospital (66) | LOC: EMS 08:53 | DX: F10.129 Alcohol abuse with intoxication, unspecified (principal); R22.0 Localized swelling, mass and lump, head; W19.XXXA Unspecified fall, initial encounter | CPT/HCPCS: A0425; A0429 ==

== ENCOUNTER 2024-05-01 09:07 | Emergency (ER) | payer MEDICARE ==
--- NOTE | 2024-05-01 09:16 | ED Physician Documentation ---
PD HPI ALTERED MENTAL STATUS - Stated complaint Stated Complaint: ETOH - History obtained from History obtained from: Patient - History of Present Illness Timing - onset: How many hours ago (few), Today Timing - details: Still present Quality / character: Less responsive (The patient was seen poorly responsive and apparently while intoxicated on his front yard and sidewalk. Neighbors called police and EMS to evaluate. 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 Similar symptoms before: Diagnosis (seen frequently in ER with similar due to alcohol intoxication.) Review of Systems Constitutional: denies: Fever, Chills Cardiac: denies: Chest pain / pressure Respiratory: denies: Dyspnea GI: denies: Abdominal Pain Neurologic: denies: Focal weakness, Headache, Head injury PD PAST MEDICAL HISTORY - Past Medical History Cardiovascular: Hypertension, High cholesterol Respiratory: Sleep apnea Neuro: Peripheral neuropathy, Other Endocrine/Autoimmune: Type 1 diabetes GI: GERD, Chronic constipation, Other : Other HEENT: None Psych: Depression, Bipolar disorder, Other Musculoskeletal: Osteoarthritis, Chronic back pain Derm: Other - Past Surgical History Past Surgical History: No General: Appendectomy, Other Ortho: Carpal Tunnel surgery, Spine surgery, 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:  Derm: Skin grafts - Present Medications Home Medications: Ambulatory Orders Medication Instructions Recorded Confirmed Losartan Potassium [Cozaar] 100 mg PO DAILY 01/04/23 04/14/24 Doxepin [SINEquan] 10 mg PO QPM 09/22/23 04/14/24 Gabapentin [Neurontin] 600 mg PO BID 09/22/23 04/14/24 ARIPiprazole [Aripiprazole] 15 mg PO DAILY #30 tab 01/04/24 04/14/24 Atorvastatin Calcium 40 mg PO HS #30 tab 01/04/24 04/14/24 Metformin HCl 1,000 mg PO BID #60 tab 01/04/24 04/14/24 Propranolol HCl 20 mg PO BID #60 tab 01/04/24 04/14/24 Sertraline HCl 100 mg PO DAILY #30 tab 01/04/24 04/14/24 cloNIDine [Catapres] 0.1 mg PO HS #30 tab 01/04/24 04/14/24 Gabapentin [Neurontin] 100 mg PO TID #90 cap 04/14/24 Hydromorphone HCl/Pf [Dilaudid] 9 mg IT DAILY 04/14/24 04/14/24 Insulin Glargine [Lantus Solostar] 20 unit SUBQ QPM #1 each 04/14/24 Insulin Lispro [Insulin Lispro 0 - 12 unit SUBQ ACHS 30 Days #1 04/14/24 Glenn Brianna] each Lurasidone HCl [Latuda] 60 mg PO BID 04/14/24 04/14/24 Meloxicam [Mobic] 7.5 mg PO BID 10 Days #20 tablet 04/14/24 Omeprazole 20 mg PO DAILY #30 tab 04/14/24 QUEtiapine [SEROquel] 100 mg PO QPM #30 tablet 04/14/24 hydrOXYzine HCL [Hydroxyzine HCl] 25 mg PO BID #30 tab 04/14/24 traZODone [Desyrel] 50 mg PO HS #30 tablet 04/14/24 LORazepam [Ativan] 1 mg PO Q6H PRN #25 tablet 04/17/24 Ondansetron Odt [Zofran] 4 mg TL Q6H PRN #20 tablet 04/17/24 PHENobarbitaL [Phenobarbital] 30 mg PO BID 6 Days #9 tablet 04/17/24 - Allergies Allergies/Adverse Reactions: Allergies Allergy/AdvReac Type Severity Reaction Status Date / Time penicillin G Allergy Severe hearing Verified 05/01/24 09:36 loss left ear povidone-iodine Allergy Severe Respiratory Verified 05/01/24 09:36 [From Betadine] soap * [From Betadine] Allergy Severe Respiratory Verified 05/01/24 09:36 adhesive Allergy Unknown Verified 05/01/24 09:36 iodine Allergy Unknown Verified 05/01/24 09:36 shellfish derived Allergy skin Verified 05/01/24 09:36 burning - Social History Does the pt smoke?: No Smoking Status: Never smoker Does the pt drink ETOH?: Yes Does the pt have substance abuse?: No - Immunizations Immunizations are current?: Yes - POLST Patient has POLST: No POLST Status: Full Code PD ED PE NORMAL - Vitals Vital signs reviewed: Yes - General General: No acute distress, Well developed/nourished, Other (slurring of speech and he attempts standing with wobbly stance. Not allowed to attempt walking, and was directed to sit/lie on cart. He complied. ) - HEENT HEENT: Atraumatic - Neck Neck: Supple, no meningeal sign, No bony TTP, No adenopathy - Cardiac Cardiac: RRR, No murmur - Respiratory Respiratory: No respiratory distress, Clear bilaterally - Abdomen Abdomen: Soft, Non tender - Derm Derm: Normal color, Warm and dry - Extremities Extremities: Normal ROM s pain - Neuro Neuro: No motor deficit, No sensory deficit Results - Vitals Vitals: Vital Signs - 24 hr 05/01/24 05/01/24 05/01/24 09:28 11:09 14:12 Temperature 36.9 C 36.8 C Heart Rate 103 H 116 H 96 Respiratory 19 18 18 Rate Blood Pressure 143/73 H 141/67 H 138/70 H O2 Saturation 93 92 94 Oxygen O2 Source Room air Oxygen Flow Rate 2 PD Medical Decision Making - ED course Complexity details: re-evaluated patient (he subsequently was able to talk clearlier, walk to bathroom steadily. Denies self harm ideation. States he is wanting alcohol treatment but not necessarily stopping alcohol now. He did not seem to have good monique about not drinking, so I did not give Rx for withdrawal.), considered differential, d/w patient Departure - Departure Disposition: 01 Home, Self Care Clinical Impression: Alcohol intoxication Qualifiers: Complication of substance-induced condition: uncomplicated Qualified Code(s): F10.920 - Alcohol use, unspecified with intoxication, uncomplicated Altered mental status Qualifiers: Altered mental status type: stupor Qualified Code(s): R40.1 - Stupor Condition: Stable Record reviewed to determine appropriate education?: Yes Instructions: ED Alcohol Intoxication Comments: Avoid excess alcohol. If you are drinking, then request would be for you to stay in your house so people are less likely to call the ambulance for you. Seek assistance for alcohol cessation including therapy, support groups, primary care. Forms: PCP List Discharge Date/Time: 05/01/24 14:12
[2024-05-01 14:19] VITALS: BP 138/70; O2SAT 94
== END 2024-05-01 14:12 | disposition home or self-care (01) ==
LOC: EDUNIT# → ED 09:07
DX: F10.929 Alcohol use, unspecified with intoxication, unspecified (principal); I10 Essential (primary) hypertension; E78.00 Pure hypercholesterolemia, unspecified; G47.30 Sleep apnea, unspecified; E10.42 Type 1 diabetes mellitus with diabetic polyneuropathy; Z79.4 Long term (current) use of insulin; Z79.899 Other long term (current) drug therapy
CPT/HCPCS: 99283

== ENCOUNTER 2024-05-01 17:42 | Outpatient (CLI) | payer MEDICARE | END 2024-05-01 23:59 | disposition critical access hospital (66) | LOC: EMS 17:42 | DX: T50.912A Poisoning by multiple unspecified drugs, medicaments and biological substances, intentional self-harm, initial encounter (principal); R41.82 Altered mental status, unspecified | CPT/HCPCS: A0425; A0427 ==

== ENCOUNTER 2024-05-01 17:57 | Inpatient (IN) | payer MEDICARE ==
--- NOTE | 2024-05-01 18:03 | ED Physician Documentation ---
History of Present Illness - Stated complaint Stated Complaint: SI/OD/ETOH - History obtained from History obtained from: EMS - Additonal information Additional information: 54-year-old gentleman with alcoholism. We had difficulty placing him in the past for his alcohol use disorder because of a Dilaudid pain pump and the fact that he is "burned his bridges" many of the respite and detox facilities in the area. He seems to have been decompensated as of late, this is his third visit in 24 hours. History is from the paramedics as the patient is minimally responsive. They were called out by family or friends, not were not sure which. There were some pills on the ground so there was a concern of overdose. No clear new trauma. 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:  Derm: Skin grafts - Present Medications Home Medications: Ambulatory Orders Medication Instructions Recorded Confirmed Losartan Potassium [Cozaar] 100 mg PO DAILY 01/04/23 05/01/24 ARIPiprazole [Aripiprazole] 15 mg PO DAILY #30 tab 01/04/24 05/01/24 Metformin HCl 1,000 mg PO BID #60 tab 01/04/24 05/01/24 Sertraline HCl 100 mg PO DAILY #30 tab 01/04/24 05/01/24 cloNIDine [Catapres] 0.1 mg PO HS #30 tab 01/04/24 05/01/24 Gabapentin [Neurontin] 100 mg PO TID #90 cap 04/14/24 05/01/24 Hydromorphone HCl/Pf [Dilaudid] 9 mg IT DAILY 04/14/24 05/01/24 Insulin Glargine [Lantus Solostar] 20 unit SUBQ QPM #1 each 04/14/24 05/01/24 Insulin Lispro [Insulin Lispro 0 - 12 unit SUBQ ACHS 30 Days #1 04/14/2405/01/ 4 Glenn Kwikpen] each Lurasidone HCl [Latuda] 60 mg PO BID 04/14/24 05/01/24 Meloxicam [Mobic] 7.5 mg PO BID 10 Days #20 tablet 04/14/24 05/01/24 Omeprazole 20 mg PO DAILY #30 tab 04/14/24 05/01/24 hydrOXYzine HCL [Hydroxyzine HCl] 25 mg PO BID #30 tab 04/14/24 05/01/24 traZODone [Desyrel] 50 mg PO HS #30 tablet 04/14/24 05/01/24 Ondansetron Odt [Zofran] 4 mg TL Q6H PRN #20 tablet 04/17/24 05/01/24 PHENobarbitaL [Phenobarbital] 30 mg PO BID 6 Days #9 tablet 04/17/24 05/01/24 - Allergies Allergies/Adverse Reactions: Allergies Allergy/AdvReac Type Severity Reaction Status Date / Time penicillin G Allergy Severe hearing Verified 05/01/24 18:13 loss left ear povidone-iodine Allergy Severe Respiratory Verified 05/01/24 18:13 [From Betadine] soap * [From Betadine] Allergy Severe Respiratory Verified 05/01/24 18:13 adhesive Allergy Unknown Verified 05/01/24 18:13 iodine Allergy Unknown Verified 05/01/24 18:13 shellfish derived Allergy skin Verified 05/01/24 18:13 burning - Social History Does the pt smoke?: No Smoking Status: Never smoker Does the pt drink ETOH?: Yes Does the pt have substance abuse?: No - Immunizations Immunizations are current?: Yes - POLST Patient has POLST: No POLST Status: Full Code PD ED PE NORMAL - Vitals Vital signs reviewed: Yes - General General: Other (He is sleeping, tachycardic. He will arouse to vigorous stimulus and say some nonsensical words.) - HEENT HEENT: PERRL, EOMI - Neck Neck: No bony TTP - Cardiac Cardiac: Other (Tachycardic but regular without murmur) - Respiratory Respiratory: No respiratory distress, Clear bilaterally - Abdomen Abdomen: Non tender, Other (Some bruising to the anterior abdominal wall with a pain pump on the left side subcutaneously.) - Back Back: No CVA TTP, No spinal TTP - Derm Derm: Normal color, Warm and dry - Extremities Extremities: No edema, No calf tenderness / cord - Neuro Eye Opening: To Voice Motor: Obeys Commands Verbal: Incomprehensible GCS Score: 11 Results - Vitals Vitals: Vital Signs - 24 hr 05/01/24 05/01/24 05/01/24 18:03 18:42 19:10 Temperature 36.4 C L Heart Rate 147 H 160 H 166 H Respiratory 28 H 24 Rate Blood Pressure 157/100 H 177/107 H O2 Saturation 95 99 05/01/24 05/01/24 05/01/24 19:12 19:30 19:45 Temperature 37.0 C Heart Rate 143 H 137 H 132 H Respiratory 22 18 Rate Blood Pressure 152/71 H 139/91 H O2 Saturation 98 98 05/01/24 05/01/24 05/01/24 20:00 20:25 20:30 Temperature 37.0 C 37.0 C Heart Rate 132 H 127 H 116 H Respiratory 19 21 Rate Blood Pressure 148/92 H 138/98 H O2 Saturation 99 99 05/01/24 05/01/24 05/01/24 21:00 21:15 21:30 Temperature 37.0 C 37.0 C Heart Rate 99 95 95 Respiratory 16 19 Rate Blood Pressure 117/88 H 114/87 H O2 Saturation 96 98 Oxygen O2 Source Mechanical ventilator Oxygen Flow Rate 92 - EKG (time done) 1833 EKG releavant findings:: EKG personally interpreted by author of this note. Relevant findings are: Rate: Rate (enter#) (165), Tachy Rhythm: SVT [place]: Normal QRS: Low voltage Ischemia: Normal ST segments 1919 EKG releavant findings:: EKG personally interpreted by author of this note. Relevant findings are: Rate: Rate (enter#) (149) Rhythm: Sinus tachycardia QRS: Low voltage Ischemia: Non specific changes - Labs Labs: Laboratory Tests 05/01/24 05/01/24 05/01/24 18:00 18:30 18:50 WBC 4.3 L RBC 4.03 L Hgb 12.2 L Hct 38.2 L MCV 94.8 H MCH 30.3 MCHC 31.9 L RDW 13.2 Plt Count 232 MPV 9.7 Neut # (Auto) 2.6 Lymph # (Auto) 1.3 L Dix[place] # (Auto) 0.4 Eos # (Auto) 0.0 Baso # (Auto) 0.0 Absolute Nucleated RBC 0.00 Nucleated RBC % 0.0 Bld Gas Analysis Time Sample Site ABG pH ABG pCO2 ABG pO2 ABG HCO3 ABG Total CO2 ABG O2 Saturation ABG Base Excess Grady Test VBG pH VBG pCO2 VBG pO2 VBG HCO3 VBG Total CO2 VBG O2 Saturation VBG Base Excess Respiration Rate O2 Delivery Device Vent Mode FiO2 Tidal Volume PEEP Pressure Support Vent Sodium Potassium Chloride Carbon Dioxide Anion Gap BUN Creatinine Estimated GFR (MDRD) Glucose Lactic Acid Calcium Magnesium Total Bilirubin AST ALT Alkaline Phosphatase Total Creatine Kinase Total Protein Albumin Globulin Albumin/Globulin Ratio Lipase Vitamin B12 Folate TSH Urine Color YELLOW Urine Clarity CLEAR Urine pH 6.0 Ur Specific [place] <=1.005 Urine Protein NEGATIVE Urine Glucose (UA) >=1000 H Urine Ketones TRACE Urine Occult Blood TRACE-INTA Urine Nitrite NEGATIVE Urine Bilirubin NEGATIVE Urine Urobilinogen 0.2 (NORMAL) Ur Leukocyte Esterase NEGATIVE Ur Microscopic Review NOT INDICATED Urine Culture Comments NOT INDICATED Salicylates Urine Opiates Screen POSITIVE H Ur Buprenorphine Scrn NEGATIVE Ur Oxycodone Screen NEGATIVE Urine Methadone Screen NEGATIVE Acetaminophen Ur Barbiturates Screen NEGATIVE Ur Tricyclics Screen POSITIVE H Ur Phencyclidine Scrn NEGATIVE Ur Amphetamine Screen NEGATIVE U Methamphetamines Scrn NEGATIVE U Benzodiazepines Scrn POSITIVE H Urine Cocaine Screen NEGATIVE U Cannabinoids Screen NEGATIVE Ur Drug Screen Comment CUTOFF CONC BELOW: Ethyl Alcohol SARS-CoV-2 (PCR) NOT DETECTED 05/01/24 05/01/24 05/01/24 18:50 18:50 18:50 WBC RBC Hgb Hct MCV MCH MCHC RDW Plt Count MPV Neut # (Auto) Lymph # (Auto) Dixie # (Auto) Eos # (Auto) Baso # (Auto) Absolute Nucleated RBC Nucleated RBC % Bld Gas Analysis Time Sample Site ABG pH ABG pCO2 ABG pO2 ABG HCO3 ABG Total CO2 ABG O2 Saturation ABG Base Excess Grady Test VBG pH 7.314 VBG pCO2 50.4 VBG pO2 94.1 H VBG HCO3 25.0 VBG Total CO2 26.6 VBG O2 Saturation 96.5 H VBG Base Excess -1.7 Respiration Rate O2 Delivery Device Vent Mode FiO2 Tidal Volume PEEP Pressure Support Vent Sodium 141 Potassium 4.0 Chloride 99 L Carbon Dioxide 25 Anion Gap 17.0 H BUN 7 Creatinine 0.5 L Estimated GFR (MDRD) 172 Glucose 267 H Lactic Acid 4.6 H* Calcium 9.1 Magnesium 1.4 L Total Bilirubin 0.5 AST 30 ALT 18 Alkaline Phosphatase 139 H Total Creatine Kinase 404 H Total Protein 7.5 Albumin 4.4 Globulin 3.1 Albumin/Globulin Ratio 1.4 Lipase < 10 L Vitamin B12 289 Folate 24.2 TSH 0.72 Urine Color Urine Clarity Urine pH Ur Specific [place] Urine Protein Urine Glucose (UA) Urine Ketones Urine Occult Blood Urine Nitrite Urine Bilirubin Urine Urobilinogen Ur Leukocyte Esterase Ur Microscopic Review Urine Culture Comments Salicylates < 1.5 Urine Opiates Screen Ur Buprenorphine Scrn Ur Oxycodone Screen Urine Methadone Screen Acetaminophen 0.2 Ur Barbiturates Screen Ur Tricyclics Screen Ur Phencyclidine Scrn Ur Amphetamine Screen U Methamphetamines Scrn U Benzodiazepines Scrn Urine Cocaine Screen U Cannabinoids Screen Ur Drug Screen Comment Ethyl Alcohol 241.8 SARS-CoV-2 (PCR) 05/01/24 05/01/24 19:40 21:20 WBC RBC Hgb Hct MCV MCH MCHC RDW Plt Count MPV Neut # (Auto) Lymph # (Auto) Dix[place] # (Auto) Eos # (Auto) Baso # (Auto) Absolute Nucleated RBC Nucleated RBC % Bld Gas Analysis Time 1944. Sample Site RIGHT RADIAL RIGHT RADIAL ABG pH 7.47 H 7.45 ABG pCO2 32 L 32 L ABG pO2 242 H* 71 L ABG HCO3 22.0 21.8 L ABG Total CO2 23.2 22.8 ABG O2 Saturation 99 H 94 ABG Base Excess -0.7 -1.3 Grady Test POSITIVE POSITIVE VBG pH VBG pCO2 VBG pO2 VBG HCO3 VBG Total CO2 VBG O2 Saturation VBG Base Excess Respiration Rate 16 O2 Delivery Device VENTILATOR Vent Mode ASSIST/CONTROL ASSIST/CONTROL FiO2 100.00 30.00 Tidal Volume 500 PEEP 5 5 Pressure Support Vent 10 Sodium Potassium Chloride Carbon Dioxide Anion Gap BUN Creatinine Estimated GFR (MDRD) Glucose Lactic Acid Calcium Magnesium Total Bilirubin AST ALT Alkaline Phosphatase Total Creatine Kinase Total Protein Albumin Globulin Albumin/Globulin Ratio Lipase Vitamin B12 Folate TSH Urine Color Urine Clarity Urine pH Ur Specific [place] Urine Protein Urine Glucose (UA) Urine Ketones Urine Occult Blood Urine Nitrite Urine Bilirubin Urine Urobilinogen Ur Leukocyte Esterase Ur Microscopic Review Urine Culture Comments Salicylates Urine Opiates Screen Ur Buprenorphine Scrn Ur Oxycodone Screen Urine Methadone Screen Acetaminophen Ur Barbiturates Screen Ur Tricyclics Screen Ur Phencyclidine Scrn Ur Amphetamine Screen U Methamphetamines Scrn U Benzodiazepines Scrn Urine Cocaine Screen U Cannabinoids Screen Ur Drug Screen Comment Ethyl Alcohol SARS-CoV-2 (PCR) - Rads (name of study) CT of the abdomen pelvis: Posterior airspace opacities suggestive of aspiration and hepatic steatosis and hepatomegaly Relevant Findings:: Final report received, EMP independent interpretation of test Ct Chest:m Moderate posterior bilateral airspace opacities, all consistent with aspiration, cardiomegaly Relevant Findings:: Final report received, EMP independent interpretation of test CT head and C-spine were negative for traumatic findings Relevant Findings:: Final report received, EMP independent interpretation of test Procedures - Intubation - Major Provider: Emergency physician Medications: Etomidate (20mg ivp), Rocuronium (60mg ivp) Blade: Glidescope Tube: Size-enter number (8.0), Cuffed Route: Oral Confirmation: Direct visualization Complications: No compications - Central Line - Major Central Line Preparation: Unable to obtain consent, Time out completed, Ultrasound used, Sterile prep and drape Central line location: Left IJ Central line type: Triple lumen Central line aftercare: Chlorhexidine disc placed, Secured, Placement confirmed, No pneumothorax, No complications, Bundle checklist complete, Pt tolerated well PD Medical Decision Making - ED course ED course: 54-year-old gentleman who is a severe alcoholic presents by ambulance pretty much obtunded with severe tachycardia, tachypnea and rapidly became hypoxic as well. There was a potential overdose, inciting agent unknown. Decision was made given his instability to intubate which was done without issue. He was administered IV fluids. Subsequently he became progressively tachycardic. EKG done at 1833 hrs. disclosed SVT. He was administered 20 mg of diltiazem and repeat EKG at 1919 hrs. disclosed normal sinus tachycardia with a rate of about 150. A central line was placed and he was sedated with propofol. There is no clear trauma but I think out of an abundance of caution I will do a alvarez scan. Otherwise his labs were notable for mildly low white count and hemoglobin on CBC, and unremarkable venous blood gas, chemistries notable for 267 (he is diabetic) and low magnesium which I will replete. Lactate was elevated at 4.6. TSH normal. Urinalysis notable only for glucose in the urine. Toxicology testing was notable for positive opiates, tricyclic, benzodiazepines, and blood alcohol of 241. Subsequently CT alvarez scan was negative with exception of findings of aspiration. His heart rate and other vital signs improved immensely on the ventilator. After completion of CT reads telehealth consult was placed at 9:[address] Rodríguez, telehospitalist at 9:55 PM. - Critical Care Time(min): 45 Time Includes: Direct patient care, Review records, Reassess patient, Document care, Coordinate care, Medical consult, See progress note Data interpretation: Labs, Pulse ox Procedures included in critical care time: Peripheral IV Procedures excluded from critical care time: Central IV, EKG Departure - Departure Disposition: 66 [facility] DC/Xfer Clinical Impression: Medication overdose Qualifiers: Encounter type: initial encounter Injury intent: undetermined intent Qualified Code(s): T50.904A - Poisoning by unspecified drugs, medicaments and biological substances, undetermined, initial encounter Altered mental status Qualifiers: Altered mental status type: coma Coma depth: [place] coma 3-8 Coma timing: in the field (EMT or ambulance) Qualified Code(s): R40.2431 - Esther coma scale score 3-8, in the field [EMT or ambulance] DM type 2 (diabetes mellitus, type 2) Qualifiers: Diabetes mellitus long line teamster insulin use: with long line teamster use Diabetes mellitus complication status: with hyperglycemia Qualified Code(s): E11.65 - Type 2 diabetes mellitus with hyperglycemia Respiratory failure Qualifiers: Chronicity: acute Respiratory failure complication: unspecified whether with hypoxia or hypercapnia Qualified Code(s): J96.00 - Acute respiratory failure, unspecified whether with hypoxia or hypercapnia Condition: Critical
[2024-05-01] MEDS: SODIUM CHLORIDE 0.9% 1,000 ML IV STA ×2 (18:18→19:29)
[2024-05-01] MEDS: ROCURONIUM 50 MG/5 ML VIAL IVP STA (18:21)
[2024-05-01] MEDS: ETOMIDATE 40 MG/20 ML VIAL IVP STA (18:23)
[2024-05-01] MEDS: PROPOFOL 1000 MG/100 ML 1,000 MG/100 ML BOTTLE IV STA ×2 (18:28→21:19)
[2024-05-01 18:57] LABS: BASOPHILS % (AUTO) 0.5 %; EOSINOPHILS % (AUTO) 0.5 %; HCT - HEMATOCRIT 38.2 % (42.0-52.0); HGB - HEMOGLOBIN 12.2 g/dL (14.0-18.0); LYMPHOCYTES # (AUTO) 1.3 10^3/uL (1.5-3.5); LYMPHOCYTES % (AUTO) 28.9 %; MEAN CORPUSCULAR HEMOGLOBIN 30.3 pg (27.0-31.0); MEAN CORPUSCULAR HGB CONC 31.9 g/dL (32.0-36.0); MEAN CORPUSCULAR VOLUME 94.8 fL (80.0-94.0); MEAN PLATELET VOLUME 9.7 fL (7.4-11.4); MONOCYTES # (AUTO) 0.4 10^3/uL (0.0-1.0); MONOCYTES % (AUTO) 8.3 %; NEUTROPHILS # (AUTO) 2.6 10^3/uL (1.5-6.6); NEUTROPHILS % (AUTO) 60.4 %; PLT - PLATELET COUNT 232 10^3/uL (130-450); RED BLOOD COUNT 4.03 10^6/uL (4.70-6.10); RED CELL DISTRIBUTION WIDTH 13.2 % (12.0-15.0); VBG PCO2 50.4 mmHg (41-51); VBG PH 7.314 (7.31-7.41); VBG PO2 94.1 mmHg (25-47); WHITE BLOOD COUNT 4.3 x10^3/uL (4.8-10.8)
[2024-05-01 18:58] LABS: VBG BASE EXCESS -1.7 mmol/L (-2 - +2); VBG OXYGEN SATURATION 96.5 % (60-80); VBG TOTAL CO2 26.6 mmol/L (24-29)
--- NOTE | 2024-05-01 19:05 | XRAY Report ---
PROCEDURE: Chest for Line Placement INDICATIONS: resp fail ett TECHNIQUE: One view of the chest was acquired. COMPARISON: 01/02/2024. FINDINGS: Surgical changes and devices: ET tube tip is approximately 4.2 cm above the elisa. NG tube tip is i n the distal stomach lumen below the right hemidiaphragm. Likely cord stimulator leads are seen proje cting at the level of mid thoracic spine. Lungs and pleura: No pleural effusions or pneumothorax. There is mild pulmonary vascular congestion. No definite focal infiltrate. Pulmonary edema is likely present. Mediastinum: Mediastinal contours appear normal. Heart size is normal. Bones and chest wall: No suspicious bony lesions. Overlying soft tissues appear unremarkable. IMPRESSION: Pulmonary vascular congestion and pulmonary edema. No definite focal infiltrate. No gross pneumothora x. ET tube and NG tube in satisfactory position. Reviewed by: Luis Holland MD on 05/01/2024 7:04 PM PDT Approved by: Luis Holland MD on 05/01/2024 7:04 PM PDT Station ID: [id number]
[2024-05-01 19:07] LABS: BILIRUBIN,URINE NEGATIVE (NEGATIVE); GLUCOSE, URINE (UA) >=1000 mg/dL (NEGATIVE); KETONES,URINE (UA) TRACE mg/dL (NEGATIVE); LEUKOCYTE ESTERASE, URINE NEGATIVE (NEGATIVE); NITRITE,URINE NEGATIVE (NEGATIVE); OCCULT BLOOD,URINE TRACE-INTA (NEGATIVE); PROTEIN,URINE NEGATIVE (NEGATIVE); UROBILINOGEN,URINE 0.2 (NORMAL) E.U./dL (NORMAL)
[2024-05-01 19:08] LABS: CLARITY,URINE CLEAR (CLEAR)
[2024-05-01] MEDS: diltiaZEM INJ 5 MG/ML VIAL IVP STA (19:10)
[2024-05-01 19:17] LABS: ACETAMINOPHEN 0.2 ug/mL; CK- CREATINE KINASE 404 IU/L (30-223); ETOH - ETHANOL 241.8 mg/dL; MAGNESIUM 1.4 mg/dL (1.7-2.3)
[2024-05-01 19:21] LABS: ALBUMIN 4.4 g/dL (3.2-5.5); ALBUMIN/GLOBULIN RATIO 1.4 (1.0-2.2); ALKALINE PHOSPHATASE 139 IU/L (42-121); ALT ALANINE AMINOTRANSFERASE 18 IU/L (10-60); AST ASPARTATE AMINOTRANSFERASE 30 IU/L (10-42); BILIRUBIN,TOTAL 0.5 mg/dL (0.2-1.0); BUN - BLOOD UREA NITROGEN 7 mg/dL (6-20); CALCIUM 9.1 mg/dL (8.5-10.3); CARBON DIOXIDE - CO2 25 mmol/L (21-32); CHLORIDE 99 mmol/L (101-111); CREATININE 0.5 mg/dL (0.6-1.3); GFR - MDRD 172 (>89); GLUCOSE 267 mg/dL (74-104); SODIUM 141 mmol/L (135-145); TOTAL PROTEIN 7.5 g/dL (6.4-8.9)
[2024-05-01 19:21] LABS: AMPHETAMINE SCREEN,URINE NEGATIVE (NEGATIVE); BENZODIAZEPINES SCREEN, URINE POSITIVE (NEGATIVE); COCAINE SCREEN URINE NEGATIVE (NEGATIVE); METHAMPHETAMINES SCREEN, URINE NEGATIVE (NEGATIVE); OPIATE SCREEN, URINE POSITIVE (NEGATIVE); THC CANNABINOID SCREEN, URINE NEGATIVE (NEGATIVE)
[2024-05-01 19:22] LABS: BARBITURATE SCREEN,UR NEGATIVE (NEGATIVE); BUPRENORPHINE SCREEN, URINE NEGATIVE (NEGATIVE); METHADONE SCREEN, URINE NEGATIVE (NEGATIVE); OXYCODONE SCREEN, URINE NEGATIVE (NEGATIVE); TRICYCLIC ANTIDEPRESSANT,URINE POSITIVE (NEGATIVE)
[2024-05-01 19:22] LABS: LIPASE < 10 U/L (11-82); SALICYLATE < 1.5 mg/dL
[2024-05-01 19:26] LABS: THYROID STIMULATING HORMONE 0.72 uIU/mL (0.34-5.60)
[2024-05-01] MEDS ORDERED: iohexoL-300 100 ML VIAL ONE (19:33)
[2024-05-01 19:47] LABS: ABG BASE EXCESS -0.7 mmol/L (-2.0-3.0); ABG OXYGEN SATURATION 99 % (94-98); ABG PCO2 32 mmHg (34-45); ABG PH 7.47 (7.35-7.45); ABG TCO2 23.2 MMOL/L (21.0-29.0)
[2024-05-01 19:49] LABS: ABG MODE OF VENTILATION ASSIST/CONTROL; ABG PO2 242 mmHg (80-100); ABG RESPIRATORY RATE 16 b/min; ALLEN TEST POSITIVE
--- NOTE | 2024-05-01 20:32 | XRAY Report ---
PROCEDURE: Chest for Line Placement INDICATIONS: [facility] CVC TECHNIQUE: One view of the chest was acquired. COMPARISON: Earlier study from the same day. FINDINGS: Surgical changes and devices: ET tube and NG tube positions unchanged. There is interval placement o f a left internal jugular central venous catheter, the tip is in SVC. Lungs and pleura: No pleural effusions or pneumothorax. Mild pulmonary vascular congestion is again seen with bilateral infrahilar infiltrates/atelectasis. No pleural effusion or pneumothorax. Mediastinum: Mediastinal contours appear normal. Heart size is normal. Bones and chest wall: No suspicious bony lesions. Overlying soft tissues appear unremarkable. IMPRESSION: Left internal jugular central venous catheter tip is in SVC. ET tube and NG tube positions unchanged. Congestive changes and a suggestion of bilateral infrahilar infiltrate versus atelectasis. No pleura l effusion or pneumothorax. Reviewed by: Luis Holland MD on 05/01/2024 8:30 PM PDT Approved by: Luis Holland MD on 05/01/2024 8:30 PM PDT Station ID: [id number]
--- NOTE | 2024-05-01 20:44 | CT Report ---
PROCEDURE: Abdomen/Pelvis W INDICATIONS: IV only, poss trauma CONTRAST: Omni 300 100ml TECHNIQUE: After the administration of intravenous contrast, a CT scan of the abdomen and pelvis was performed. Images were recorded and evaluated at appropriate window settings. Reformats: coronal and sagittal. F or radiation dose reduction, the following was used: automated exposure control, adjustment of mA and /or kV according to patient size. COMPARISON: CT of abdomen and pelvis dated 10/16/2023. FINDINGS: Image quality: Diagnostic. Lower chest: Airspace opacities are noted in posterior aspect of bilateral lung bases. Heart size is enlarged, Cardiac effusion. Liver: No solid mass. Hepatic steatosis and hepatomegaly is seen. Gallbladder: No radiopaque stones or wall thickening. Biliary tree: No intrahepatic or extrahepatic dilation, accounting for age. Spleen: No splenomegaly. Pancreas: No pancreatic ductal dilation. Adrenals: No adrenal nodule. Kidneys and ureters: No hydronephrosis. Bilateral peripelvic renal cysts are seen. No renal cystic le maurice which requires follow up. No solid mass. Stomach, bowel and peritoneum: There is no bowel obstruction. No abnormal bowel wall thickening or me senteric fat stranding. No free fluid of free air. NG tube tip is in distal stomach lumen. Lymph node s: No central or retroperitoneal adenopathy. Vessels: No infrarenal aortic aneurysm. Patent portal vein. PELVIS Reproductive organs: Unremarkable. Bladder: No abnormal wall thickening, accounting for underdistention. Cohn catheter is seen in a dec ompressed urinary bladder. Pelvic lymph nodes: No pelvic adenopathy by size criteria. Bones: No aggressive osseous abnormality. Stimulator leads are seen projecting in mid thoracic spine. Other: No significant ventral or inguinal hernia. IMPRESSION: 1. No acute solid organ injury is seen in abdomen or pelvis. No free fluid of free air. 2. Moderate size air space opacities in posterior aspect of bilateral lung bases suggestive of bilate ral lower lobe pneumonia possibly from aspiration. 3. Hepatic steatosis and hepatomegaly. Reviewed by: Luis Holland MD on 05/01/2024 8:43 PM PDT Approved by: Luis Holland MD on 05/01/2024 8:43 PM PDT Station ID: [id number]
--- NOTE | 2024-05-01 20:47 | CT Report ---
PROCEDURE: Chest W INDICATIONS: poss trauma CONTRAST: Omni 300 100ml TECHNIQUE: After the administration of intravenous contrast, a CT scan of the chest was performed. Images were recorded and evaluated at appropriate window settings. Reformats: axial MIP of the chest, coronal and sagittal. For radiation dose reduction, the following was used: automated exposure control, adjustme nt of mA and/or kV according to patient size. COMPARISON: None. FINDINGS: Image quality: Diagnostic. Chest wall and lower neck: No thyroid nodule which requires sonographic follow up. No breast mass. No axillary or supraclavicular adenopathy by size. Patient is intubated, ET tube tip is above the james a. Lungs and pleura: Small to moderate size air space consolidations are noted in posterior aspect of bi lateral lower lobes extending to bilateral infrahilar region. Dependent atelectasis in posterior aspe ct of bilateral upper lung lopez are seen. Scarring/atelectasis in left lingular segment is also not ed. . No pleural effusions. No pneumothorax. No suspicious pulmonary nodules which require follow up . Mediastinum: Heart size is enlarged. No pericardial effusion. No large vessel abnormality. No mediast inal adenopathy by size criteria. NG tube tip is in distal stomach lumen. Bones: No aggressive osseous abnormality. No displaced rib fracture is seen. Upper Abdomen: Unremarkable. IMPRESSION: 1. Moderate size airspace consolidations in posterior aspect of bilateral lower lobes extending to bi lateral infrahilar region concerning for pneumonia secondary to possible aspiration. Scattered atelec tasis in dependent portion of bilateral lung lopez. No pleural effusion or pneumothorax. 2. ET tube and NG tube are in satisfactory position. Left internal jugular central venous catheter ti p is in SVC. 3. Cardiomegaly, no pericardial effusion. No mediastinal or hilar lymphadenopathy by size criteria. Reviewed by: Luis Holland MD on 05/01/2024 8:46 PM PDT Approved by: Luis Holland MD on 05/01/2024 8:46 PM PDT Station ID: [id number]
[2024-05-01] MEDS: iohexoL-300 100 ML VIAL IVP ONE (21:00)
[2024-05-01] MEDS ORDERED: PROPOFOL 1000 MG/100 ML 1,000 MG/100 ML BOTTLE IV ONE (21:04)
--- NOTE | 2024-05-01 21:27 | CT Report ---
PROCEDURE: Head WO INDICATIONS: poss trauma TECHNIQUE: Noncontrast 4.5 mm thick angled axial sections acquired from the foramen magnum to the vertex. For r adiation dose reduction, the following was used: automated exposure control, adjustment of mA and/or kV according to patient size. COMPARISON: 04/30/2024. FINDINGS: Image quality: Diagnostic. CSF spaces: Basal cisterns are patent. No extra-axial fluid collections. Ventricles are normal in size and shape. Brain: No midline shift. No intracranial masses or hemorrhage. Marr-white matter interface is norm al. Skull and face: Calvarium and visualized facial bones are intact, without suspicious lesions. Sinuses: Scattered ethmoid sinus mucosal thickening. Other visualized paranasal sinuses and mastoids are clear. IMPRESSION: No acute intracranial pathology. Ethmoid sinus disease. Reviewed by: Carlos Ling MD on 05/01/2024 9:25 PM PDT Approved by: Carlos Ling MD on 05/01/2024 9:25 PM PDT Station ID: [id number]
[2024-05-01 21:29] LABS: ABG PH 7.45 (7.35-7.45)
[2024-05-01 21:30] LABS: ABG BASE EXCESS -1.3 mmol/L (-2.0-3.0); ABG HCO3 21.8 mmol/L (22.0-26.0); ABG OXYGEN SATURATION 94 % (94-98); ABG PCO2 32 mmHg (34-45); ABG PO2 71 mmHg (80-100); ABG TCO2 22.8 MMOL/L (21.0-29.0); ALLEN TEST POSITIVE
[2024-05-01 21:31] LABS: ABG MODE OF VENTILATION ASSIST/CONTROL
--- NOTE | 2024-05-01 21:31 | CT Report ---
PROCEDURE: Cervical Spine WO INDICATIONS: poss trauma TECHNIQUE: Noncontrast 3 mm thick sections acquired from the skull base to the T4 level. Sagittal and coronal r eformats were then constructed. For radiation dose reduction, the following was used: automated exp osure control, adjustment of mA and/or kV according to patient size. COMPARISON: 04/30/2024. FINDINGS: Image quality: Diagnostic. Bones: No acute fractures or dislocations. No acute compression fractures of the vertebral bodies. Craniocervical junction is intact. C1-C2 relationship is preserved. Visualized superior ribs are inta ct. Stable alignment of the cervical spine with straightening and minimal grade 1 anterolisthesis of C4 a nd C5. Moderate multilevel cervical spondylosis not significantly changed. Soft tissues: Prevertebral soft tissues are normal in thickness. No paravertebral hematomas. No ap ical pneumothoraces. There including the bilateral maxillary sinuses. Ethmoid sinus mucosal thickeni ng likely related to intubation. Mastoid air cells are clear. IMPRESSION: No acute, displaced fracture or traumatic subluxation. Stable alignment of the cervical spine. Moderate multilevel cervical spondylosis. Reviewed by: Carlos Ling MD on 05/01/2024 9:29 PM PDT Approved by: Carlos Ling MD on 05/01/2024 9:29 PM PDT Station ID: [id number]
--- NOTE | 2024-05-01 22:37 | HISTORY & PHYSICAL EXAMINATION ---
Chief Complaint - Chief Complaint Chief Complaint: lethargy History of Present Illness - Admitted From Admitted From:: home - History Obtained From Records Reviewed: yes History obtained from: ER provider, chart review Exam Limitations: telemedicine - History of Present Illness HPI Comment/Other: Mr Rmoo is a 54 yo M with history of severe alcohol dependence, DM I, chronic pain syndrome with subcutaneous dilaudid pump (details unclear). He presents to the ER via EMS obtunded. He was found to be tachycardic with HR 170s, EKG showed SVT and he was treated with IV diltiazem, he was then in sinus tachycardia, which eventually resolved with IV fluid hydration. He was also tachypneic and hypoxic, intubated in ER. Unable to obtain any history, patient is intubated and sedated on ventilator. No family is available at this time. Patient is well known to [facility], he has had multiple frequent admissions and reportedly is difficult to place in rehab due to his Dilaudid pain pump and the fact that he has "burned his bridges" many of the respite and detox facilities in the area. This is patient's 3rd visit to the ER in 24 hours. ER provider obtained history from EMS as patient was minimally responsive upon arrival - "They were called out by family or friends, not were not sure which. There were some pills on the ground so there was a concern of overdose. No clear new trauma.". Toxicology testing was notable for positive opiates, TCA and benzodiazepines. Blood alcohol level of 241. 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 Father age 90. Alive, has diabetes, leukemia, Alzheimer's. Lives in [place]. He does have siblings but he is not in contact with him. He has children but is not in contact with him Living Situation: Alone Social History Notes: Disabled due to chronic low back pain.Has been drinking since the age of 14. He denies cocaine, heroin, LSD or speed. He does not smoke and never did. 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 - Substance History Use: Uses substance without health or social issues: NONE - POLST Patient has POLST: No POLST Status: Full Code Meds/Allgy - Home Medications Home Medications: Ambulatory Orders Medication Instructions Recorded Confirmed Losartan Potassium [Cozaar] 100 mg PO DAILY 01/04/23 05/01/24 ARIPiprazole [Aripiprazole] 15 mg PO DAILY #30 tab 01/04/24 05/01/24 Metformin HCl 1,000 mg PO BID #60 tab 01/04/24 05/01/24 Sertraline HCl 100 mg PO DAILY #30 tab 01/04/24 05/01/24 cloNIDine [Catapres] 0.1 mg PO HS #30 tab 01/04/24 05/01/24 Gabapentin [Neurontin] 100 mg PO TID #90 cap 04/14/24 05/01/24 Hydromorphone HCl/Pf [Dilaudid] 9 mg IT DAILY 04/14/24 05/01/24 Insulin Glargine [Lantus Solostar] 20 unit SUBQ QPM #1 each 04/14/24 05/01/24 Insulin Lispro [Insulin Lispro 0 - 12 unit SUBQ ACHS 30 Days #1 04/14/24 05/01/24 Junior Reed] each Lurasidone HCl [Latuda] 60 mg PO BID 04/14/24 05/01/24 Meloxicam [Mobic] 7.5 mg PO BID 10 Days #20 tablet 04/14/24 05/01/24 Omeprazole 20 mg PO DAILY #30 tab 04/14/24 05/01/24 hydrOXYzine HCL [Hydroxyzine HCl] 25 mg PO BID #30 tab 04/14/24 05/01/24 traZODone [Desyrel] 50 mg PO HS #30 tablet 04/14/24 05/01/24 Ondansetron Odt [Zofran] 4 mg TL Q6H PRN #20 tablet 04/17/24 05/01/24 PHENobarbitaL [Phenobarbital] 30 mg PO BID 6 Days #9 tablet 04/17/24 05/01/24 - Allergies Allergies/Adverse Reactions: Allergies Allergy/AdvReac Type Severity Reaction Status Date / Time penicillin G Allergy Severe hearing Verified 05/01/24 18:13 loss left ear povidone-iodine Allergy Severe Respiratory Verified 05/01/24 18:13 [From Betadine] soap * [From Betadine] Allergy Severe Respiratory Verified 05/01/24 18:13 adhesive Allergy Unknown Verified 05/01/24 18:13 iodine Allergy Unknown Verified 05/01/24 18:13 shellfish derived Allergy skin Verified 05/01/24 18:13 burning Review of Systems - Other Findings Other Findings: Unable to obtain ROS, patient is intubated and sedated. Exam - Vital Signs Reviewed Vital Signs: Yes Vital Signs: Vital Signs x48h Temp Pulse Resp BP Pulse Ox 05/01/24 22:00 94 19 115/87 H 100 05/01/24 21:30 37.0 C 95 19 114/87 H 98 05/01/24 21:15 95 05/01/24 21:00 37.0 C 99 16 117/88 H 96 05/01/24 20:30 37.0 C 116 H 21 138/98 H 99 05/01/24 20:25 127 H 05/01/24 20:00 37.0 C 132 H 19 148/92 H 99 05/01/24 19:45 132 H 05/01/24 19:30 37.0 C 137 H 18 139/91 H 98 05/01/24 19:12 143 H 22 152/71 H 98 05/01/24 19:10 166 H 05/01/24 18:42 160 H 24 177/107 H 99 05/01/24 18:03 36.4 C L 147 H 28 H 157/100 H 95 - Physical Exam General Appearance: positive: No acute distress (on ventilator) Neck: positive: Other (ETT in place) Respiratory: positive: No respiratory distress Neurologic/Psychiatric: positive: Other (sedated) Conclusion/Plan - Lab Results Fish Bones: 05/01/24 18:50 05/01/24 18:50 - Diagnostic Imaging Results Diagnostic Imaging Results: positive: Final report reviewed - EKG Results EKG Interpreted Independently: Yes - Other Other Results/Comments: Assessment/Plan: Acute hypoxic respiratory failure Acute metabolic encephalopathy Acute alcohol intoxication Possible overdose (unclear) Chronic pain syndrome with dilaudid pump -Patient is intubated in the ER -Continue ventilator protocol -Multiple home medications - need pharmacy medication reconciliation -Thiamine/folate -Monitor closely for signs of withdrawal, currently on propofol and fentanyl -Admit to ICU Lactic acidosis -Likely related to hypoxia/tachycardia at admission -Lactic 4.6 -Repeat ordered -Continue gentle IV fluid hydration Bibasilar consolidations -Noted on CT chest -Possibly aspiration -Follow up blood/sputum cultures -Given lactic acidosis and tachycardia will cover with broad spectrum antibiotics IV meropenem (PCN allergy) DM type 1 -NPO -Blood glucose q6h - SSI History of bipolar disorder -Pharmacy med rec and resume home medications in a.m. Full code DVT ppx: Heparin sc
[2024-05-01] MEDS ORDERED: SODIUM CHLORIDE FLUSH 0.9% 10 ML SYRINGE IVP PRN (22:49)
[2024-05-01] MEDS: INSULIN REGULAR, HUMAN 300 UNIT/3 ML PEN SUBQ SCH (23:34)
[2024-05-01] MEDS: SODIUM CHLORIDE 0.9% 1,000 ML IV SCH (23:34)
[2024-05-01] MEDS: SODIUM CHLORIDE FLUSH 0.9% 10 ML SYRINGE IVP SCH (23:43)
[2024-05-01] MEDS: MEROPENEM 1 GM in SODIUM CHLORIDE 0.9% MINIBAG 100 ML IV SCH (23:43)
[2024-05-02] MEDS: MAGNESIUM SULFATE 2 GRAM 2 GM/50 ML BAG IV SCH (02:01)
[2024-05-02 04:34] LABS: BASOPHILS % (AUTO) 0.4 %; EOSINOPHILS # (AUTO) 0.1 10^3/uL (0.0-0.7); EOSINOPHILS % (AUTO) 1.5 %; HCT - HEMATOCRIT 33.1 % (42.0-52.0); HGB - HEMOGLOBIN 11.4 g/dL (14.0-18.0); LYMPHOCYTES # (AUTO) 1.5 10^3/uL (1.5-3.5); LYMPHOCYTES % (AUTO) 28.7 %; MEAN CORPUSCULAR HEMOGLOBIN 31.8 pg (27.0-31.0); MEAN CORPUSCULAR HGB CONC 34.4 g/dL (32.0-36.0); MEAN CORPUSCULAR VOLUME 92.2 fL (80.0-94.0); MEAN PLATELET VOLUME 9.1 fL (7.4-11.4); MONOCYTES # (AUTO) 0.4 10^3/uL (0.0-1.0); MONOCYTES % (AUTO) 7.1 %; NEUTROPHILS # (AUTO) 3.2 10^3/uL (1.5-6.6); NEUTROPHILS % (AUTO) 62.1 %; PLT - PLATELET COUNT 208 10^3/uL (130-450); RED BLOOD COUNT 3.59 10^6/uL (4.70-6.10); RED CELL DISTRIBUTION WIDTH 13.1 % (12.0-15.0); WHITE BLOOD COUNT 5.2 x10^3/uL (4.8-10.8)
[2024-05-02] MEDS: PROPOFOL 1000 MG/100 ML 1,000 MG/100 ML BOTTLE IV SCH (04:37)
[2024-05-02 04:38] LABS: CALCIUM, IONIZED 1.09 mmol/L (1.15-1.33); VBG PH 7.493 (7.31-7.41)
[2024-05-02 04:50] LABS: ALBUMIN 3.9 g/dL (3.2-5.5); ALBUMIN/GLOBULIN RATIO 1.4 (1.0-2.2); BILIRUBIN,TOTAL 0.8 mg/dL (0.2-1.0); CREATININE 0.5 mg/dL (0.6-1.3); MAGNESIUM 2.6 mg/dL (1.7-2.3); POTASSIUM 3.3 mmol/L (3.5-4.5); TOTAL PROTEIN 6.6 g/dL (6.4-8.9)
[2024-05-02] MEDS: fentaNYL 2,500 MCG in SODIUM CHLORIDE 0.9% 200 ML IV SCH (04:58)
[2024-05-02] MEDS: CALCIUM GLUC 1,000MG/50ML-NACL 1,000 MG/50 ML BAG IV ONE (05:29)
[2024-05-02] MEDS ORDERED: FAMOTIDINE 20 MG/2 ML VIAL IVP SCH (09:00)
[2024-05-02] MEDS: POTASSIUM PHOSPHATE 15 MMOL in SODIUM CHLORIDE 0.9% 250 ML IV ONE (09:22)
[2024-05-02] MEDS: HEPARIN 5,000 UNIT/ML VIAL SUBQ SCH (09:28)
[2024-05-02] MEDS ORDERED: MULTIVITAMIN 10 ML, THIAMINE INJ 100 MG, FOLIC ACID INJ 1 MG in SODIUM CHLORIDE 0.9% 1,... IV SCH (12:00)
--- NOTE | 2024-05-02 12:32 | PROVIDER PROGRESS NOTE ---
Progress Note May 02, 2024 12:15 PM Patient was seen this morning. He had been on a T-piece for an hour. His pulmonary pressures were in the high teens low 20s. He was not tachypneic or tachycardic and saturating well. He was awake, eyes open even though he was on a fentanyl drip and a propofol drip. Following commands. Tidal volumes generated were adequate. As such he made a decision to extubate him. After extubation he was verbal, alert. Oxygenating well on room air. In reviewing the chart it seems that he became intoxicated. He confirms that. He states that he is not deliberately trying to kill himself. But when he is intoxicated the patient does voice suicidal ideation. He says that the Cohn catheter hurts his penis and he wants it out. At care conference we discussed the fact that he has bilateral bibasilar consolidations. Quite significant. But he does not have a fever, he does not have a white cell count. And I have temporarily stopped his meropenem to see if he needs it. Active Medications (I have stopped fentanyl, propofol, IV famotidine, meropenem) Famotidine (Famotidine 20 Mg Tablet) 20 mg PO BID [facility] Heparin Sodium (Porcine) (Heparin 5,000 Unit/Ml Vial) 5,000 unit SUBQ BID [facility] Last Admin: 05/02/24 09:28 Dose: 5,000 unit Insulin Human Regular (Insulin Regular, Human 300 Unit/3 Ml Pen) 1 - 9 unit SUBQ Q6HR [facility]; Protocol Last Admin: 05/02/24 05:38 Dose: 1 unit Multivit/Folic Acid/Iron ( Vitamin Tablet) 1 tab PO DAILYWM [facility] Sodium Chloride (Sodium Chloride Flush 0.9% 10 Ml Syringe) 10 ml IVP 0100,0900,1700 [facility] Last Admin: 05/02/24 11:48 Dose: 10 ml Sodium Chloride (Sodium Chloride Flush 0.9% 10 Ml Syringe) 10 ml IVP PRN PRN PRN Reason: NEEDED PER PROVIDER ORDERS Home Meds: Losartan Potassium [Cozaar] 100 mg PO DAILY 01/04/23 Hydromorphone HCl/Pf [Dilaudid] 9 mg IT DAILY 04/14/24 Lurasidone HCl [Latuda] 60 mg PO BID 04/14/24 LORazepam [Ativan] 1 mg PO Q6H PRN 05/02/24 QUEtiapine [SEROquel] 100 mg PO QPM 05/02/24 Laboratory Last Values WBC 5.2 x10^3/uL (4.8-10.8) 05/02/24 04:24 RBC 3.59 10^6/uL (4.70-6.10) L 05/02/24 04:24 Hgb 11.4 g/dL (14.0-18.0) L 05/02/24 04:24 Hct 33.1 % (42.0-52.0) L 05/02/24 04:24 MCV 92.2 fL (80.0-94.0) 05/02/24 04:24 MCH 31.8 pg (27.0-31.0) H 05/02/24 04:24 MCHC 34.4 g/dL (32.0-36.0) 05/02/24 04:24 RDW 13.1 % (12.0-15.0) 05/02/24 04:24 Plt Count 208 10^3/uL (130-450) 05/02/24 04:24 MPV 9.1 fL (7.4-11.4) 05/02/24 04:24 Neut # (Auto) 3.2 10^3/uL (1.5-6.6) 05/02/24 04:24 Lymph # (Auto) 1.5 10^3/uL (1.5-3.5) 05/02/24 04:24 Bath # (Auto) 0.4 10^3/uL (0.0-1.0) 05/02/24 04:24 Eos # (Auto) 0.1 10^3/uL (0.0-0.7) 05/02/24 04:24 Baso # (Auto) 0.0 10^3/uL (0.0-0.1) 05/02/24 04:24 Absolute Nucleated RBC 0.00 x10^3/uL 05/02/24 04:24 Nucleated RBC % 0.0 /100WBC 05/02/24 04:24 Bld Gas Analysis Time 21.27 05/01/24 21:20 Sample Site RIGHT RADIAL 05/01/24 21:20 ABG pH 7.45 (7.35-7.45) 05/01/24 21:20 ABG pCO2 32 mmHg (34-45) L 05/01/24 21:20 ABG pO2 71 mmHg (80-100) L 05/01/24 21:20 ABG HCO3 21.8 mmol/L (22.0-26.0) L 05/01/24 21:20 ABG Total CO2 22.8 MMOL/L (21.0-29.0) 05/01/24 21:20 ABG O2 Saturation 94 % (94-98) 05/01/24 21:20 ABG Base Excess -1.3 mmol/L (-2.0-3.0) 05/01/24 21:20 Grady Test POSITIVE 05/01/24 21:20 VBG pH 7.493 (7.31-7.41) H 05/02/24 04:24 VBG pCO2 50.4 mmHg (41-51) 05/01/24 18:50 VBG pO2 94.1 mmHg (25-47) H 05/01/24 18:50 VBG HCO3 25.0 mmol/L (23-28) 05/01/24 18:50 VBG Total CO2 26.6 mmol/L (24-29) 05/01/24 18:50 VBG O2 Saturation 96.5 % (60-80) H 05/01/24 18:50 VBG Base Excess -1.7 mmol/L (-2 - +2) 05/01/24 18:50 Ionized Calcium 1.09 mmol/L (1.15-1.33) L 05/02/24 04:24 Respiration Rate 16 b/min 05/01/24 19:40 O2 Delivery Device VENTILATOR 05/01/24 19:40 Vent Mode ASSIST/CONTROL 05/01/24 21:20 FiO2 30.00 05/01/24 21:20 Tidal Volume 500 mL 05/01/24 19:40 PEEP 5 cmH2O 05/01/24 21:20 Pressure Support Vent 10 cmH2O 05/01/24 21:20 Sodium 140 mmol/L (135-145) 05/02/24 04:24 Potassium 3.3 mmol/L (3.5-4.5) L 05/02/24 04:24 Chloride 101 mmol/L (101-111) 05/02/24 04:24 Carbon Dioxide 29 mmol/L (21-32) 05/02/24 04:24 Anion Gap 10.0 (6-13) 05/02/24 04:24 BUN 6 mg/dL (6-20) 05/02/24 04:24 Creatinine 0.5 mg/dL (0.6-1.3) L 05/02/24 04:24 Estimated GFR (MDRD) 172 (>89) 05/02/24 04:24 Glucose 183 mg/dL (74-104) H 05/02/24 04:24 POC Whole Bld Glucose 204 mg/dL (70 - 100) H 05/01/24 23:21 Lactic Acid 2.8 mmol/L (0.5-2.2) H 05/01/24 23:50 Calcium 9.0 mg/dL (8.5-10.3) 05/02/24 04:24 Phosphorus 2.1 mg/dL (2.5-5.0) L 05/02/24 04:24 Magnesium 2.6 mg/dL (1.7-2.3) H 05/02/24 04:24 Total Bilirubin 0.8 mg/dL (0.2-1.0) 05/02/24 04:24 AST 21 IU/L (10-42) 05/02/24 04:24 ALT 15 IU/L (10-60) 05/02/24 04:24 Alkaline Phosphatase 120 IU/L (42-121) 05/02/24 04:24 Total Creatine Kinase 248 IU/L (30-223) H 05/02/24 04:24 Total Protein 6.6 g/dL (6.4-8.9) 05/02/24 04:24 Albumin 3.9 g/dL (3.2-5.5) 05/02/24 04:24 Globulin 2.7 g/dL (2.1-4.2) 05/02/24 04:24 Albumin/Globulin Ratio 1.4 (1.0-2.2) 05/02/24 04:24 Lipase < 10 U/L (11-82) L 05/01/24 18:50 Vitamin B12 289 pg/mL (180-914) 05/01/24 18:50 Folate 24.2 ng/mL (5.90 - >24.8) 05/01/24 18:50 TSH 0.72 uIU/mL (0.34-5.60) 05/01/24 18:50 Urine Color YELLOW 05/01/24 18:00 Urine Clarity CLEAR (CLEAR) 05/01/24 18:00 Urine pH 6.0 PH (5.0-7.5) 05/01/24 18:00 Ur Specific [place] <=1.005 (1.002-1.030) 05/01/24 18:00 Urine Protein NEGATIVE mg/dL (NEGATIVE) 05/01/24 18:00 Urine Glucose (UA) >=1000 mg/dL (NEGATIVE) H 05/01/24 18:00 Urine Ketones TRACE mg/dL (NEGATIVE) 05/01/24 18:00 Urine Occult Blood TRACE-INTA (NEGATIVE) 05/01/24 18:00 Urine Nitrite NEGATIVE (NEGATIVE) 05/01/24 18:00 Urine Bilirubin NEGATIVE (NEGATIVE) 05/01/24 18:00 Urine Urobilinogen 0.2 (NORMAL) E.U./dL (NORMAL) 05/01/24 18:00 Ur Leukocyte Esterase NEGATIVE (NEGATIVE) 05/01/24 18:00 Ur Microscopic Review NOT INDICATED 05/01/24 18:00 Urine Culture Comments NOT INDICATED 05/01/24 18:00 Nasal Screen MRSA (PCR) NEGATIVE (NEGATIVE) 05/01/24 23:21 Salicylates < 1.5 mg/dL 05/01/24 18:50 Urine Opiates Screen POSITIVE (NEGATIVE) H 05/01/24 18:00 Ur Buprenorphine Scrn NEGATIVE (NEGATIVE) 05/01/24 18:00 Ur Oxycodone Screen NEGATIVE (NEGATIVE) 05/01/24 18:00 Urine Methadone Screen NEGATIVE (NEGATIVE) 05/01/24 18:00 Acetaminophen 0.2 ug/mL 05/01/24 18:50 Ur Barbiturates Screen NEGATIVE (NEGATIVE) 05/01/24 18:00 Ur Tricyclics Screen POSITIVE (NEGATIVE) H 05/01/24 18:00 Ur Phencyclidine Scrn NEGATIVE (NEGATIVE) 05/01/24 18:00 Ur Amphetamine Screen NEGATIVE (NEGATIVE) 05/01/24 18:00 U Methamphetamines Scrn NEGATIVE (NEGATIVE) 05/01/24 18:00 U Benzodiazepines Scrn POSITIVE (NEGATIVE) H 05/01/24 18:00 Urine Cocaine Screen NEGATIVE (NEGATIVE) 05/01/24 18:00 U Cannabinoids Screen NEGATIVE (NEGATIVE) 05/01/24 18:00 Ur Drug Screen Comment CUTOFF CONC BELOW: 05/01/24 18:00 Ethyl Alcohol 241.8 mg/dL 05/01/24 18:50 SARS-CoV-2 (PCR) NOT DETECTED 05/01/24 18:30 On exam temperature is 36.8. Heart rate 96. Blood pressure 145/95. Respirations 19. 100% saturated on 2 L nasal cannula and 94% saturated on room air. Very pale white male. 5 feet 11 inches tall, 101.5 kg. Hoarse voice after being extubated. But no tachypnea, tachycardia, or use of accessory muscles. He has significant tubular breath sounds in the right midlung and right back. Some rhonchi. Left lung is quiet but clear. He does have egophony at both lung bases. Regular rate and rhythm no murmur Abdomen is soft, nontender, hypoactive bowel sounds without any hepatomegaly nor tenderness. Extremities without edema. Neurologically he is alert, oriented to person, place, time and situation. Slow to respond with speech and thought process. He is moving all extremities voluntarily. No tremors, diaphoresis. labs reviewed above. Hypokalemia present. Assessment/Plan 1. Acute respiratory failure with hypoxia due to #2. He has recovered enough that he cannot be extubated. I have stopped the ventilatory orders. I have stopped the fentanyl and propofol. I will now order a regular diet or rather a low-carb diet. I will remove the Cohn since he does not like it. I have asked the nurse to please get him out of bed and sit up in bed for breakfast and lunch. Changed his famotidine from IV to p.o. 2. Acute metabolic encephalopathy due to multi drug intoxication His alcohol level was 241.8. Tox screen positive for tricyclics, opioids, benzodiazepines. He still slightly sleepy this morning. But I think this may be the effects of the fentanyl drip as well as a propofol drip. I would anticipate that he will clear shortly. But I will worry about alcohol withdrawal and as such we will start CIWA protocol. 3. Bilateral lung consolidation Hypoxia, no fever, no elevated white cell count. Although the CT scan is impressive, he does not have findings of "infection" on physical exam. As such I will stop the meropenem but resume it if he spikes a fever or white cell count becomes elevated. He may have aspirated because of his acute intoxication but it was not witnessed. 4. Chronic pain syndrome He has an intrathecal pump. I have stopped the fentanyl IV. in need to investigate with nursing and pharmacy if his Dilaudid pump was running at the same time as his fentanyl pump. I will resume his seroquel 5. Chronic alcohol abuse Well-known to the emergency room as well as social work. This patient has had multiple opportunities to get clean and sober. With this most recent opportunity he had she left rehab after "successful" treatment. Immediately began drinking. He began showing up in the emergency room intoxicated asking to go back to rehab. Social work stressed to him that his ability to go back to rehab was an outpatient issue that he can manage on his own. He did not need to be in the hospital to get referred to rehab. After he left the emergency room he came even more acutely intoxicated and obtunded, hence the intubation and current stay. Again, my main concern is that he will go through withdrawal again. And have started the CIWA protocol 6. Hypokalemia I will supplement and then recheck in am. 7. Type 2 DM, controlled, on supervisor long goods insulin start low carb diet continue SS insulin 8. Hypertension resume his home losartan 100 mg po daily
[2024-05-02] MEDS: PRENATAL VITAMIN TABLET PO SCH (13:18)
[2024-05-02] MEDS: LORazepam 2 MG/ML VIAL IVP PRN (13:56)
--- NOTE | 2024-05-02 14:00 | PHARMACY PROGRESS NOTE ---
- Best Possible Medication History Admit Date and Time: 05/01/24 3418 Processed by: Pharmacy Medications reviewed in ED?: No Medication History completed: Yes Patient Interview: Completed Secondary Source(s): Prescription bottles (Patient has not filled metformin in 4 months, but states he still takes it once daily. Was originally ordered for twice daily.), Pharmacy records, Insurance records As the person ultimately responsible for medication therapy, providers are able to order a medication from an existing home medication list in [facility] via the "Reconcile Routine" prior to Confirmation of that medication by system support specialist. Such practice is discouraged except when the physician, in their clinical judgment, deems that a medical need exists for a medication without regard to previous use.
[2024-05-02 15:17] LABS: CALCIUM, IONIZED 1.05 mmol/L (1.15-1.33); VBG PH 7.459 (7.31-7.41)
[2024-05-02 15:23] LABS: POTASSIUM 4.1 mmol/L (3.5-4.5)
[2024-05-02 15:29] LABS: PHOSPHORUS 3.7 mg/dL (2.5-5.0)
[2024-05-02] MEDS: CALCIUM CARBONATE CHEW 500 MG TABLET PO SCH (17:10)
[2024-05-02] MEDS: oxyCODONE 5 MG TABLET PO PRN (19:25)
--- NOTE | 2024-05-02 19:59 | XRAY Report ---
PROCEDURE: Hand 1-2V RT INDICATIONS: fall at home w pain TECHNIQUE: 3 views of the hand(s) acquired. COMPARISON: None. FINDINGS: Bones: Questional angulated fracture at the base of the fifth metacarpal. Soft tissues: No suspicious soft tissue calcifications or masses. IMPRESSION: Questional angulated fracture at the base of the fifth metacarpal. Correlate with point tenderness. Please see the wrist series for further information. Reviewed by: Haile Bailey MD on 05/02/2024 7:57 PM PDT Approved by: Haile Bailey MD on 05/02/2024 7:57 PM PDT Station ID: [id number]
--- NOTE | 2024-05-02 20:00 | XRAY Report ---
PROCEDURE: Wrist 1-2V RT INDICATIONS: fall at home with pain TECHNIQUE: 2 views of the wrist were acquired. COMPARISON: None. FINDINGS: Bones: Extra-articular fracture of the distal radius, without angulation. Questionable tiny chip fra cture of the ulnar styloid. Soft tissues: No suspicious soft tissue calcifications or masses. IMPRESSION: Extra-articular fracture of the distal radius, without angulation. Questionable tiny chip fracture of the ulnar styloid. Reviewed by: Haile Bailey MD on 05/02/2024 7:58 PM PDT Approved by: Haile Bailey MD on 05/02/2024 7:58 PM PDT Station ID: [id number]
[2024-05-02] MEDS: traZODone 50 MG TABLET PO SCH (21:08)
[2024-05-02] MEDS: QUEtiapine 100 MG TABLET PO SCH (21:08)
[2024-05-02] MEDS: FAMOTIDINE 20 MG TABLET PO SCH (21:08)
[2024-05-02] MEDS: GABAPENTIN 100 MG CAPSULE PO SCH (21:08)
[2024-05-02] MEDS: hydrOXYzine PAMOATE 25 MG CAPSULE PO SCH (21:09)
[2024-05-02] MEDS: INSULIN LISPRO 300 UNIT/3 ML PEN SUBQ SCH (21:09)
[2024-05-03 04:40] LABS: CALCIUM, IONIZED 1.12 mmol/L (1.15-1.33); VBG PH 7.488 (7.31-7.41)
[2024-05-03 04:56] LABS: MAGNESIUM 1.6 mg/dL (1.7-2.3); POTASSIUM 3.8 mmol/L (3.5-4.5)
[2024-05-03] MEDS: THIAMINE 100 MG TABLET PO SCH (08:11)
[2024-05-03] MEDS: LOSARTAN 50 MG TABLET PO SCH (08:12)
[2024-05-03] MEDS: POTASSIUM CHLORIDE 20 MEQ TABLET PO ONE (08:26)
[2024-05-03] MEDS: MAGNESIUM OXIDE 400 MG TABLET PO ONE (08:27)
--- NOTE | 2024-05-03 12:24 | ED Physician Documentation ---
ED Addendum - Addendum Addendum: 05/03/24 12:24 Dr. Lovell asked me to evaluate and splint this gentleman who since admission was identified as having a distal radius fracture and likely proximal fifth metacarpal fracture on the right. He was placed in a short arm volar cock-up splint with 4 inch fiberglass in standard fashion without issue. I did independently viewed the x-rays as there was a question about management as we do not have orthopedist on-call right now. These fractures, if seen in the emergency department would have been splinted and referred to orthopedics as an outpatient without inpatient orthopedics consultation.
[2024-05-03 13:09] LABS: MAGNESIUM 1.4 mg/dL (1.7-2.3); POTASSIUM 4.2 mmol/L (3.5-4.5)
[2024-05-03] MEDS: MAGNESIUM SULFATE 2 GRAM 2 GM/50 ML BAG IV SCH (13:59)
--- NOTE | 2024-05-03 17:26 | PROVIDER PROGRESS NOTE ---
Progress Note May 03, 2024 5:30 PM He has been extubated since yesterday morning. And with regards to respiratory status is stable. Needs no oxygen and is ambulating without any cough, wheezing, shortness of breath. He complains of right wrist pain. He had fallen and one of his inebriated states in the last few days. No film was done in the ER. I checked a Vistaril last night and it does have a distal radial fracture. I had emergency room provider come evaluate the patient since we do not have orthopedics. The consultation is greatly appreciated. He does not need surgical intervention and will need follow-up with orthopedics in the next 2 to 3 weeks. He denies any abdominal pain. No urgency, frequency dysuria. RN reports that the patient has been comfortable overnight, and into today. Active Medications Famotidine (Famotidine 20 Mg Tablet) 20 mg PO BID [facility] Last Admin: 05/03/24 08:12 Dose: 20 mg Gabapentin (Gabapentin 100 Mg Capsule) 100 mg PO TID [facility] Last Admin: 05/03/24 13:54 Dose: 100 mg Heparin Sodium (Porcine) (Heparin 5,000 Unit/Ml Vial) 5,000 unit SUBQ BID [facility] Last Admin: 05/03/24 08:12 Dose: 5,000 unit Hydroxyzine Pamoate (Hydroxyzine Pamoate 25 Mg Capsule) 25 mg PO BID [facility] Last Admin: 05/03/24 08:11 Dose: 25 mg Insulin Human Lispro (Insulin Lispro 300 Unit/3 Ml Pen) 1 - 9 unit SUBQ 0800,1200,1700,2100 [facility]; Protocol Last Admin: 05/03/24 12:08 Dose: 1 unit Lorazepam (Lorazepam 2 Mg/Ml Vial) 1 mg IVP Q30M PRN; Protocol PRN Reason: CIWA >8 Last Admin: 05/02/24 13:56 Dose: 1 mg Losartan Potassium (Losartan 50 Mg Tablet) 100 mg PO DAILY [facility] Last Admin: 05/03/24 08:12 Dose: 100 mg Oxycodone HCl (Oxycodone 5 Mg Tablet) 5 mg PO Q4HR PRN PRN Reason: Moderate Pain (Level 4-6) Last Admin: 05/03/24 16:25 Dose: 5 mg Multivit/Folic Acid/Iron ( Vitamin Tablet) 1 tab PO DAILYWM [facility] Last Admin: 05/03/24 08:11 Dose: 1 tab Quetiapine Fumarate (Quetiapine 100 Mg Tablet) 100 mg PO QPM [facility] Last Admin: 05/02/24 21:08 Dose: 100 mg Sodium Chloride (Sodium Chloride Flush 0.9% 10 Ml Syringe) 10 ml IVP 0100,0900,1700 [facility] Last Admin: 05/03/24 08:26 Dose: 10 ml Sodium Chloride (Sodium Chloride Flush 0.9% 10 Ml Syringe) 10 ml IVP PRN PRN PRN Reason: NEEDED PER PROVIDER ORDERS Thiamine HCl (Thiamine 100 Mg Tablet) 100 mg PO DAILY [facility] Last Admin: 05/03/24 08:11 Dose: 100 mg Trazodone HCl (Trazodone 50 Mg Tablet) 50 mg PO HS [facility] Last Admin: 05/02/24 21:08 Dose: 50 mg Home Meds: Losartan Potassium [Cozaar] 100 mg PO DAILY 01/04/23 Hydromorphone HCl/Pf [Dilaudid] 9 mg IT DAILY 04/14/24 Insulin Glargine [Lantus Solostar] 20 unit SUBQ DAILY 05/02/24 Metformin HCl 1,000 mg PO DAILY 05/02/24 QUEtiapine [SEROquel] 100 mg PO QPM 05/02/24 Exam: Temperature 37.4, heart rate 78, blood pressure 149/96, respirations 18, 100% saturated on room air A pale fatigued appearing white male. He is 5 foot 11 inches tall, 102.5 kg. No tremulousness, no diaphoresis, comfortable in his chair. I observed him getting out of the chair and going to the bathroom without ataxia or difficulty. Lungs are clear to auscultation and percussion Regular rate and rhythm Abdomen is soft, nontender, normal bowel sounds Extremities without edema. The right wrist is now with external casting per ER. Complains of 4 out of 10 pain in the right wrist. Back is a 4 out of 10 as well. Assessment/Plan 1. Acute respiratory failure with hypoxia due to #2. He is now medically stable. Extubated on May 02. All of his medicines were changed to p.o. Cohn discontinued. Between yesterday and today he has had no problems with his breathing. Able to sit up in a chair, walk in the room, eating his diet. 2. Acute metabolic encephalopathy due to multi drug intoxication resolved. His alcohol level was 241.8. Tox screen positive for tricyclics, opioids, benzodiazepines. Yesterday he was sleepy after extubation, but I think was the effects of the fentanyl drip as well as a propofol drip. Between yesterday and today, alert, oriented, eating his food and ambulating. Does complain of R writs pain. 3. Bilateral lung consolidation Hypoxia, no fever, no elevated white cell count. Although the CT scan is impressive, he does not have findings of "infection" on physical exam. As such I will stop the meropenem but resume it if he spikes a fever or white cell count becomes elevated. He may have aspirated because of his acute intoxication but it was not witnessed. Today still without fever, chills, or elevated WBC. I will not resume abx. 4. Chronic pain syndrome He has an intrathecal pump. in need to investigate with nursing and pharmacy if his Dilaudid pump was running at the same time as his fentanyl pump. It seems that his intrathecal pump was running. What is not clear is whether the pump has anything in it. He does not remember when the last time was that [employer] came to fill in the pump. I left a message with the nurse. Her number is [phone] with the name of Theresa Zapata. She is the field nurse. 5. Chronic alcohol abuse Well-known to the emergency room as well as social work. This patient has had multiple opportunities to get clean and sober. With this most recent opportunity he had she left rehab after "successful" treatment. Immediately began drinking. He began showing up in the emergency room intoxicated asking to go back to rehab. Social work stressed to him that his ability to go back to rehab was an outpatient issue that he can manage on his own. He did not need to be in the hospital to get referred to rehab. After he left the emergency room he came even more acutely intoxicated and obtunded, hence the intubation and current stay. Started the CIWA protocol yesterday. He was a little shaky and tremulous. He only received 2 doses of Ativan yesterday. Has not received any Ativan overnight and today he is without any symptoms or signs of withdrawal. He is medically cleared from alcohol withdrawal now. Plan is for DCR evaluation. He has clearly exhibited enough poor judgment that has become a danger to himself. Will see what DCR says today. 6. Hypokalemia resolved. Laboratory Tests 05/02/24 05/03/24 05/03/24 15:10 04:32 12:49 Potassium 4.1 3.8 4.2 7. Type 2 DM, controlled, on ocean transportation intermediary insulin on low carb diet and SS insulin Selected Entries 05/02/24 05/02/24 05/03/24 17:00 21:00 07:46 Result (mg/dL) 189 186 158 05/03/24 05/03/24 12:00 17:00 Result (mg/dL) 180 180 no change in dosing for now. 8. Hypertension resume his home losartan 100 mg po daily and BP slightly high. Selected Entries 05/03/24 05/03/24 16:00 17:00 Blood Pressure 140/92 H 149/96 H [Right Brachial artery] But no symptoms, and I will keep at same dose. 9. Right distal radial fx. Plain film showed extra-articular fracture of the distal radius without angulation. Questionable tiny chip fracture of the ulnar styloid. We do not have orthopedics. As such I had the ER doctor see him and he is now in a splint. ER note appreciated. No surgical intervention needed.placed in a short arm volar cock-up splint with 4 inch fiberglass in standard fashion without issue. He will need outpatient fu in the next 2-3 weeks.
[2024-05-03 18:56] LABS: BASOPHILS % (AUTO) 0.3 %; EOSINOPHILS # (AUTO) 0.6 10^3/uL (0.0-0.7); EOSINOPHILS % (AUTO) 6.4 %; HCT - HEMATOCRIT 31.4 % (42.0-52.0); HGB - HEMOGLOBIN 10.7 g/dL (14.0-18.0); LYMPHOCYTES # (AUTO) 1.6 10^3/uL (1.5-3.5); LYMPHOCYTES % (AUTO) 17.7 %; MEAN CORPUSCULAR HEMOGLOBIN 31.9 pg (27.0-31.0); MEAN CORPUSCULAR HGB CONC 34.1 g/dL (32.0-36.0); MEAN CORPUSCULAR VOLUME 93.7 fL (80.0-94.0); MEAN PLATELET VOLUME 9.7 fL (7.4-11.4); MONOCYTES # (AUTO) 0.4 10^3/uL (0.0-1.0); NEUTROPHILS # (AUTO) 6.2 10^3/uL (1.5-6.6); NEUTROPHILS % (AUTO) 70.4 %; PLT - PLATELET COUNT 175 10^3/uL (130-450); RED BLOOD COUNT 3.35 10^6/uL (4.70-6.10); RED CELL DISTRIBUTION WIDTH 13.1 % (12.0-15.0); WHITE BLOOD COUNT 8.8 x10^3/uL (4.8-10.8)
[2024-05-03 19:18] LABS: ALBUMIN 3.8 g/dL (3.2-5.5); ALBUMIN/GLOBULIN RATIO 1.4 (1.0-2.2); ALKALINE PHOSPHATASE 111 IU/L (42-121); ALT ALANINE AMINOTRANSFERASE 12 IU/L (10-60); AST ASPARTATE AMINOTRANSFERASE 17 IU/L (10-42); BILIRUBIN,TOTAL 0.9 mg/dL (0.2-1.0); BUN - BLOOD UREA NITROGEN 8 mg/dL (6-20); CALCIUM 9.1 mg/dL (8.5-10.3); CARBON DIOXIDE - CO2 27 mmol/L (21-32); CHLORIDE 98 mmol/L (101-111); CREATININE 0.7 mg/dL (0.6-1.3); ETOH - ETHANOL < 10.0 mg/dL; GFR - MDRD 117 (>89); GLUCOSE 201 mg/dL (74-104); MAGNESIUM 1.7 mg/dL (1.7-2.3); POTASSIUM 4.1 mmol/L (3.5-4.5); SODIUM 132 mmol/L (135-145); TOTAL PROTEIN 6.5 g/dL (6.4-8.9)
[2024-05-03 22:30] LABS: COCAINE SCREEN URINE NEGATIVE (NEGATIVE); METHAMPHETAMINES SCREEN, URINE NEGATIVE (NEGATIVE); THC CANNABINOID SCREEN, URINE NEGATIVE (NEGATIVE)
[2024-05-03 22:31] LABS: AMPHETAMINE SCREEN,URINE NEGATIVE (NEGATIVE); BARBITURATE SCREEN,UR POSITIVE (NEGATIVE); BENZODIAZEPINES SCREEN, URINE POSITIVE (NEGATIVE); BUPRENORPHINE SCREEN, URINE NEGATIVE (NEGATIVE); METHADONE SCREEN, URINE NEGATIVE (NEGATIVE); OPIATE SCREEN, URINE POSITIVE (NEGATIVE); OXYCODONE SCREEN, URINE POSITIVE (NEGATIVE); TRICYCLIC ANTIDEPRESSANT,URINE NEGATIVE (NEGATIVE)
--- NOTE | 2024-05-03 22:53 | MISCELLANEOUS PROVIDER NOTE ---
Miscellaneous Provider Note - - Note: EKG reviewed remotely via access to patient's chart. EKG obtained 05/03 7:51pm PT: Normal sinus, no acute ischemic ST, T wave changes.
[2024-05-04] MEDS ORDERED: polyethylene glycoL 3350 17 GM PACKET PO SCH (12:20)
[2024-05-04] MEDS: polyethylene glycoL 3350 17 GM PACKET PO ONE (12:45)
--- NOTE | 2024-05-04 12:50 | PROVIDER PROGRESS NOTE ---
Progress Note May 04, 2024 12:30 PM He was evaluated by the DCR in the late afternoon yesterday. His behavior is alarming us and that and spite of rehab, opportunities for counseling, and his stated wishes to be sober, he has had several ER encounters. This most recent 1 has resulted in intubation to protect his airway because of severe obtundation due to acute intoxication. The DCR has detained him. But the detainment can only be for 12 hours. His detainment is no longer in force. But we are also finding difficulty in placing him. He has an intrathecal pain pump and all [facility] because of that. So we are at an impasse. So far the patient is willing to stay in the hospital for safety sa . He is no longer in alcohol withdrawal. He has been medically stable since the morning of the Overnight there have been no complaints. he is eating his food and ambulating without assistance. I am monitoring his glucose and that is stable. DCR had his repeat an EKG, CBC, CMP and tox screen yesterday. EKG is normal. His labs are normal. Repeat toxicology screen was done. This was compared to the admission when on May 01. He is still positive for opioids. Now positive for oxycodone because we gave it to him. Now positive for barbiturates because we gave it to them. Continues to be positive for benzodiazepines. Alcohol level was 241 on admission and is now less than 10. Active Medications Famotidine (Famotidine 20 Mg Tablet) 20 mg PO BID [facility] Last Admin: 05/04/24 08:09 Dose: 20 mg Gabapentin (Gabapentin 100 Mg Capsule) 100 mg PO TID [facility] Last Admin: 05/04/24 05:39 Dose: 100 mg Heparin Sodium (Porcine) (Heparin 5,000 Unit/Ml Vial) 5,000 unit SUBQ BID [facility] Last Admin: 05/04/24 08:09 Dose: 5,000 unit Hydroxyzine Pamoate (Hydroxyzine Pamoate 25 Mg Capsule) 25 mg PO BID [facility] Last Admin: 05/04/24 08:09 Dose: 25 mg Insulin Human Lispro (Insulin Lispro 300 Unit/3 Ml Pen) 1 - 9 unit SUBQ 0800,1200,1700,2100 [facility]; Protocol Last Admin: 05/04/24 11:48 Dose: 3 unit Lorazepam (Lorazepam 2 Mg/Ml Vial) 1 mg IVP Q30M PRN; Protocol PRN Reason: CIWA >8 Last Admin: 05/02/24 13:56 Dose: 1 mg Losartan Potassium (Losartan 50 Mg Tablet) 100 mg PO DAILY [facility] Last Admin: 05/04/24 08:09 Dose: 100 mg Oxycodone HCl (Oxycodone 5 Mg Tablet) 5 mg PO Q4HR PRN PRN Reason: Moderate Pain (Level 4-6) Last Admin: 05/04/24 11:12 Dose: 5 mg Polyethylene Glycol (Polyethylene Glycol 3350 17 Gm Packet) 17 gm PO DAILY [facility] Polyethylene Glycol (Polyethylene Glycol 3350 17 Gm Packet) 17 gm PO ONCE ONE Stop: 05/04/24 13:01 Last Admin: 05/04/24 12:45 Dose: 17 gm Polyethylene Glycol (Polyethylene Glycol 3350 17 Gm Packet) 17 gm PO DAILY [facility] Multivit/Folic Acid/Iron ( Vitamin Tablet) 1 tab PO DAILYWM [facility] Last Admin: 05/04/24 08:09 Dose: 1 tab Quetiapine Fumarate (Quetiapine 100 Mg Tablet) 100 mg PO QPM [facility] Last Admin: 05/03/24 21:35 Dose: 100 mg Sodium Chloride (Sodium Chloride Flush 0.9% 10 Ml Syringe) 10 ml IVP 0100,0900,1700 [facility] Last Admin: 05/04/24 08:10 Dose: 10 ml Sodium Chloride (Sodium Chloride Flush 0.9% 10 Ml Syringe) 10 ml IVP PRN PRN PRN Reason: NEEDED PER PROVIDER ORDERS Thiamine HCl (Thiamine 100 Mg Tablet) 100 mg PO DAILY [facility] Last Admin: 05/04/24 08:09 Dose: 100 mg Trazodone HCl (Trazodone 50 Mg Tablet) 50 mg PO HS [facility] Last Admin: 05/03/24 21:35 Dose: 50 mg Losartan Potassium [Cozaar] 100 mg PO DAILY 01/04/23 Hydromorphone HCl/Pf [Dilaudid] 9 mg IT DAILY 04/14/24 Insulin Glargine [Lantus Solostar] 20 unit SUBQ DAILY 05/02/24 Metformin HCl 1,000 mg PO DAILY 05/02/24 QUEtiapine [SEROquel] 100 mg PO QPM 05/02/24 Temperature is 36.8. Heart rate is 103. Blood pressure is 135/76 and respirations of 14 with 96% on room air. His back hurts. It is a level of a 4 out of a 10. We are still not clear if his intrathecal pump has any medicine and or not. He does not remember the last time it was filled. I did leave a message with the intrathecal pump nurse yesterday to give me a call but so far no response. A disheveled white male, quite pale, looks his stated age. Neck is supple with shotty adenopathy Lungs are clear to auscultation and percussion without any increased respiratory effort Regular rate and rhythm. Abdomen is soft and nontender with normal bowel sounds. Extremities are without edema. Right wrist has the splint. Able to move fingers. Neurologically he is alert and oriented to person, place, time and situation. Feeding himself. Ambulating without assistance. Getting up to go to the bathroom and back in bed without assistance. Assessment/Plan 1. Acute respiratory failure with hypoxia due to #2. Resolved He is medically stable since 05/03 am. Extubated on May 02. All of his medicines were changed to p.o. Cohn discontinued. Able to sit up in a chair, walk in the room, eating his diet. 2. Acute metabolic encephalopathy due to multi drug intoxication resolved. His alcohol level was 241.8. Tox screen positive for tricyclics, opioids, benzodiazepines. He was sleepy after extubation, but I think was the effects of the fentanyl drip as well as a propofol drip. Between afternoon of the and today, alert, oriented, eating his food and ambulating. Does complain of R writs pain. 3. Bilateral lung consolidation Hypoxia, no fever, no elevated white cell count. Although the CT scan is impressive, he does not have findings of "infection" on physical exam. As such I will stop the meropenem but resume it if he spikes a fever or white cell count becomes elevated. He may have aspirated because of his acute intoxication but it was not witnessed. Continues to be without fever, chills, or elevated WBC off of abx. I will not resume abx. 4. Chronic pain syndrome stable and chronic He has an intrathecal pump. in need to investigate with nursing and pharmacy if his Dilaudid pump was running at the same time as his fentanyl pump. It seems that his intrathecal pump was running. What is not clear is whether the pump has anything in it. He does not remember when the last time was that [employer] came to fill in the pump. I left a message with the nurse. Her number is [phone] with the name of Theresa Zapata. She is the field nurse. So far no return phone call to let me know if his pump is full or not. 5. Chronic alcohol abuse Well-known to the emergency room staff as well as social work. This patient has had multiple opportunities to get clean and sober. With this most recent opportunity he had she left rehab after "successful" treatment. Immediately began drinking. He began showing up in the emergency room intoxicated asking to go back to rehab. Social work stressed to him that his ability to go back to rehab was an outpatient issue that he can manage on his own. He did not need to be in the hospital to get referred to rehab. After he left the emergency room he came even more acutely intoxicated and obtunded, hence the intubation and current stay. Started the CIWA protocol 05/02. He was a little shaky and tremulous. He only received 2 doses of Ativan that day. Has not received any Ativan since then and he is without any symptoms or signs of withdrawal. He is medically cleared from alcohol withdrawal now. DCR done and he was detained. The time frame for that has . He is not expressing a desire to leave yet. 6. Hypokalemia resolved. Laboratory Tests 05/02/24 05/03/24 05/03/24 15:10 04:32 12:49 Potassium 4.1 3.8 4.2 Laboratory Tests 05/03/24 05/04/24 05/04/24 20:41 07:57 11:43 POC Whole Bld Glucose 172 H 165 H 214 H 7. Type 2 DM, controlled, on half-way insulin. Stable and chronic on low carb diet and SS insulin no change in dosing for now. 8. Hypertension chronic I resumed his home losartan 100 mg po daily . Yesterday slight high with 140s systolic. This morning at goal. Selected Entries 05/04/24 08:33 Blood Pressure 135/76 H [Right Brachial artery] I will keep at same dose. 9. Right distal radial fx. Plain film showed extra-articular fracture of the distal radius without angulation. Questionable tiny chip fracture of the ulnar styloid. We do not have orthopedics. As such I had the ER doctor see him 05/03 and he is now in a splint. ER note appreciated. No surgical intervention needed.placed in a short arm volar cock-up splint with 4 inch fiberglass in standard fashion without issue. He will need outpatient fu in the next 2-3 weeks.
[2024-05-04] MEDS: BENZOCAINE/MENTHOL LOZENGE MM PRN (13:31)
[2024-05-05] MEDS: polyethylene glycoL 3350 17 GM PACKET PO SCH ×2 (08:57→13:19)
[2024-05-05] MEDS ORDERED: polyethylene glycoL 3350 17 GM PACKET PO SCH (09:00)
[2024-05-05 12:02] LABS: BASOPHILS % (AUTO) 0.4 %; EOSINOPHILS # (AUTO) 0.5 10^3/uL (0.0-0.7); EOSINOPHILS % (AUTO) 9.2 %; HCT - HEMATOCRIT 33.3 % (42.0-52.0); HGB - HEMOGLOBIN 10.9 g/dL (14.0-18.0); LYMPHOCYTES # (AUTO) 1.4 10^3/uL (1.5-3.5); LYMPHOCYTES % (AUTO) 25.8 %; MEAN CORPUSCULAR HEMOGLOBIN 31.1 pg (27.0-31.0); MEAN CORPUSCULAR HGB CONC 32.7 g/dL (32.0-36.0); MEAN CORPUSCULAR VOLUME 94.9 fL (80.0-94.0); MEAN PLATELET VOLUME 9.8 fL (7.4-11.4); MONOCYTES # (AUTO) 0.5 10^3/uL (0.0-1.0); MONOCYTES % (AUTO) 8.7 %; NEUTROPHILS # (AUTO) 3.1 10^3/uL (1.5-6.6); NEUTROPHILS % (AUTO) 55.7 %; PLT - PLATELET COUNT 185 10^3/uL (130-450); RED BLOOD COUNT 3.51 10^6/uL (4.70-6.10); RED CELL DISTRIBUTION WIDTH 12.7 % (12.0-15.0); WHITE BLOOD COUNT 5.5 x10^3/uL (4.8-10.8)
[2024-05-05 12:12] LABS: ALBUMIN 3.6 g/dL (3.2-5.5); ALBUMIN/GLOBULIN RATIO 1.3 (1.0-2.2); BILIRUBIN,TOTAL 0.6 mg/dL (0.2-1.0); CALCIUM 9.3 mg/dL (8.5-10.3); CREATININE 0.6 mg/dL (0.6-1.3); POTASSIUM 3.8 mmol/L (3.5-4.5); TOTAL PROTEIN 6.4 g/dL (6.4-8.9)
[2024-05-05] MEDS: hydrOXYzine PAMOATE 25 MG CAPSULE PO PRN (17:00)
[2024-05-05] MEDS: CALCIUM CARBONATE CHEW 500 MG TABLET PO SCH (21:18)
[2024-05-06] MEDS: CYANOCOBALAMIN 500 MCG TABLET PO SCH (09:03)
--- NOTE | 2024-05-06 11:13 | PROVIDER PROGRESS NOTE ---
Progress Note 03/06/2024 11 AM He continues to be detained by the DCR. The patient himself is cooperative about all of this because he is just psychologically miserable. He had a phone conversation with his girlfriend day before yesterday. They got into an argument and she told him to kill himself. He is despondent. Knows that if he goes back home that he will start drinking again and over drink to the point that he will overdose as he did for this admission. We are having difficulty obtaining a psychiatric bed because he has a pump. I was able to speak to Theresa Zapata today. She is the field nurse who does the pump filling. He denies cough, congestion. Shortness of breath. Eating but does not have an appetite. Able to ambulate in the room without any difficulty, use of accessory muscles. He has some wrist limitation because of the splint on his right wrist fracture. But able to feed himself. Able to go to the bathroom. Active Medications Calcium Carbonate/Glycine (Calcium Carbonate Chew 500 Mg Tablet) 500 mg PO BID REPLACED BY [facility] Last Admin: 05/06/24 09:02 Dose: 500 mg Cyanocobalamin (Cyanocobalamin 500 Mcg Tablet) 500 mcg PO DAILY REPLACED BY [facility] Last Admin: 05/06/24 09:03 Dose: 500 mcg Famotidine (Famotidine 20 Mg Tablet) 20 mg PO BID REPLACED BY [facility] Last Admin: 05/06/24 09:02 Dose: 20 mg Gabapentin (Gabapentin 100 Mg Capsule) 100 mg PO TID REPLACED BY [facility] Last Admin: 05/06/24 06:13 Dose: 100 mg Heparin Sodium (Porcine) (Heparin 5,000 Unit/Ml Vial) 5,000 unit SUBQ BID REPLACED BY [facility] Last Admin: 05/06/24 09:04 Dose: 5,000 unit Hydroxyzine Pamoate (Hydroxyzine Pamoate 25 Mg Capsule) 25 mg PO BID REPLACED BY [facility] Last Admin: 05/06/24 09:02 Dose: 25 mg Hydroxyzine Pamoate (Hydroxyzine Pamoate 25 Mg Capsule) 50 mg PO QPM PRN PRN Reason: Anxiety Last Admin: 05/05/24 22:17 Dose: 50 mg Insulin Human Lispro (Insulin Lispro 300 Unit/3 Ml Pen) 1 - 9 unit SUBQ 0800,1200,1700,2100 REPLACED BY [facility]; Protocol Last Admin: 05/06/24 07:57 Dose: 3 unit Losartan Potassium (Losartan 50 Mg Tablet) 100 mg PO DAILY REPLACED BY [facility] Last Admin: 05/06/24 09:03 Dose: 100 mg Metformin HCl (Metformin 500 Mg Tablet) 500 mg PO BIDWM REPLACED BY [facility] Oxycodone HCl (Oxycodone 5 Mg Tablet) 5 mg PO Q4HR PRN PRN Reason: Moderate Pain (Level 4-6) Last Admin: 05/06/24 10:39 Dose: 5 mg Polyethylene Glycol (Polyethylene Glycol 3350 17 Gm Packet) 17 gm PO DAILY REPLACED BY [facility] Last Admin: 05/06/24 09:03 Dose: 17 gm Multivit/Folic Acid/Iron ( Vitamin Tablet) 1 tab PO DAILYWM REPLACED BY [facility] Last Admin: 05/06/24 09:02 Dose: 1 tab Quetiapine Fumarate (Quetiapine 100 Mg Tablet) 100 mg PO QPM REPLACED BY [facility] Last Admin: 05/05/24 21:18 Dose: 100 mg Thiamine HCl (Thiamine 100 Mg Tablet) 100 mg PO DAILY REPLACED BY [facility] Last Admin: 05/06/24 09:04 Dose: 100 mg Throat Lozenges (Benzocaine/Menthol Lozenge) 1 lozenge MM Q2HR PRN PRN Reason: Throat pain Last Admin: 05/05/24 07:50 Dose: 1 lozenge Trazodone HCl (Trazodone 50 Mg Tablet) 50 mg PO [facility] Last Admin: 05/05/24 21:18 Dose: 50 mg Losartan Potassium [Cozaar] 100 mg PO DAILY 01/04/23 Hydromorphone HCl/Pf [Dilaudid] 9 mg IT DAILY 04/14/24 Insulin Glargine [Lantus Solostar] 20 unit SUBQ DAILY 05/02/24 Metformin HCl 1,000 mg PO DAILY 05/02/24 QUEtiapine [SEROquel] 100 mg PO QPM 05/02/24 Exam: Temperature is 36.7, heart rate 69, blood pressure 110/89, respirations 14, 95% on room air. Back pain is rated between a 6 or a 7 out of a 10. He is a 5 foot 11 male who weighs 100 kg. Very pale skin. Muted affect. His affect cycles through despondency, withdrawn. Or angry, hyper. He has not needed restraints since extubation. Neck is supple without adenopathy He has clear lungs without any increased respiratory effort. Able to carry on a conversation, walk in his room, feed himself without any increased respiratory effort. Regular rate and rhythm. Abdomen is soft and nontender. Normal bowel sounds. Last bowel movement May 05. Yesterday his appetite improved and he ate 100% of his food at dinner, and 100% of breakfast this morning. Extremities without edema. Lab: The DCR had us do labs on May 03. Sodium was 132. Potassium normal. Glucose 201. Liver enzymes and protein status was normal. CBC had chronic anemia with a hemoglobin of 10.7. Normal white cell count. Repeat toxicology screen was positive for opioids, oxycodone, barbiturates, benzodiazepines. His alcohol level on admission had been 241 and the repeat alcohol level on May 03 was less than 10. The DCR had asked repeat blood work again on May 05. CBC stable, chemistry stable. Assessment/Plan>>All of his acute medical problems have resolved. He has been medically stable since May 03. Avoidable days started May 03. 1. Acute respiratory failure with hypoxia due to #2. Resolved He is medically stable since 05/03 am. Extubated on May 02. All of his medicines were changed to p.o. Cohn discontinued. Able to sit up in a chair, walk in the room, eating his diet. 2. Acute metabolic encephalopathy due to multi drug intoxication resolved. His alcohol level was 241.8. Tox screen positive for tricyclics, opioids, benzodiazepines. He was sleepy after extubation, but I think was the effects of the fentanyl drip as well as a propofol drip. Between afternoon of the and today, alert, oriented, eating his food and ambulating. Does complain of R writs pain. 3. Bilateral lung consolidation Hypoxia, no fever, no elevated white cell count. Although the CT scan is impre ssive, he does not have findings of "infection" on physical exam. As such I stopped the meropenem after extubation but I would resume it if he spikes a fever or white cell count becomes elevated. He may have aspirated because of his acute intoxication but it was not witnessed. Continues to be without fever, chills, or elevated WBC off of abx. I will not resume abx. 4. Chronic pain syndrome stable and chronic He has an intrathecal pump. He did have a fentanyl drip and the intrathecal pump running at the same time when he was intubated. But the infusion nurse te lls me that the medication is localized. It is not a systemic absorption. So would not of interfered with the fentanyl. Her name is Theresa Sheridan RN and she works for [employer]. Her number is [phone]. She is the field nurse. She called me back today and said that his pump was filled in February. It is not due to be filled again until May 24. She is asking me to notify her which facility he goes to. She will need to be able to have access to them and that facility so is asking that the patient please make sure that he notifies the facility so that she may have access to his medical records and also have access to him to fill the pump. 5. Chronic alcohol abuse Well-known to the emergency room staff as well as social work. This patient h as had multiple opportunities to get clean and sober. With this most recent opportunity he had she left rehab after "successful" treatment. Immediately began drinking. He began showing up in the emergency room intoxicated asking to go back to rehab. Social work stressed to him that his ability to go back to rehab was an outpatient issue that he can manage on his own. He did not need to be in the hospital to get referred to rehab. After he left the emergency room he came even more acutely intoxicated and obtunded, hence the intubation and current stay. Started the CIWA protocol 05/02. He was a little shaky and tremulous. He only received 2 doses of Ativan that day. Has not received any Ativan since then and he is without any symptoms or signs of withdrawal. He is medically cleared from alcohol withdrawal now. DCR done and he was detained. Then time frame and then redetained. The patient is expressing a desire to just stay until he can find appropriate treatment. He is stating that he is afraid to go home because he thinks he will harm himself again. 6. Hypokalemia resolved. Laboratory Tests 05/02/24 05/03/24 05/03/24 15:10 04:32 12:49 Potassium 4.1 3.8 4.2 He was 3.8 on May 05. So K is stable and no intervention written by me. 7. Type 2 DM, controlled, on press tender long goods insulin. Stable and chronic on low carb diet and SS insulin. At home he is on metformin. However pharmacy queried his insurance records. He has not picked up metformin in several months. He supposed to be taking at 1000 mg twice daily. But the patient states he does not necessarily follow that plan. So we do not know if he is taking metformin intermittently or not at all. Laboratory Tests 05/05/24 05/05/24 05/06/24 16:57 20:54 07:44 POC Whole Bld Glucose 123 H 150 H 201 H Plan:: Resume metformin at 500 mg p.o. twice daily and see how he does. 8. Hypertension chronic I resumed his home losartan 100 mg po daily . BP controlled after I reviewed his vitals. Selected Entries 05/03/24 05/03/24 05/04/24 17:00 23:00 08:33 Blood Pressure 149/96 H 108/66 135/76 H [Right Brachial artery] 05/04/24 05/04/24 05/06/24 13:00 14:00 07:48 Blood Pressure 123/93 H 108/74 110/89 H [Right Brachial artery] I will keep at same dose. 9. Right distal radial fx. Plain film showed extra-articular fracture of the distal radius without angulation. Questionable tiny chip fracture of the ulnar styloid. We do not have orthopedics. As such I had the ER doctor see him 05/03 and he is now in a splint. ER note appreciated. No surgical intervention needed.placed in a short arm volar cock-up splint with 4 inch fiberglass in standard fashion without issue. He will need outpatient fu in the next 2-3 weeks.
[2024-05-06] MEDS: CHOLECALCIFEROL 25 MCG TABLET PO SCH (11:56)
[2024-05-06] MEDS: metFORMIN 500 MG TABLET PO SCH (18:55)
[2024-05-06] MEDS: INSULIN LISPRO 300 UNIT/3 ML PEN SUBQ SCH (18:56)
[2024-05-07] MEDS: DICLOFENAC SODIUM 1% GEL 50 GM TUBE TOP PRN (14:57)
--- NOTE | 2024-05-07 17:46 | PROVIDER PROGRESS NOTE ---
Progress Note May 07, 2024 5:45 PM He said avoidable days since May 03. Social work has been diligently working and trying to get this patient placed since he is suicidal ideation and still has active plans. The most recent plan is to work with [facility]. That has been a day and a half now. Otherwise the patient is stable. He is ambulating in his room. Eating 100% of his food. Glucose is controlled. From a medical perspective he has been medically stable since May 02. Exam temperature is 36.5, heart rate 66, blood pressure 141/83, respirations 16, 99% on room air. He is a 5 foot 11 inch male that weighs 101.5 kg. Alert and oriented to person place time and situation. Neck is supple. Lungs are clear. Denies any delusions or hallucinations. Continues to state that he is afraid that he will go home to drink and drink himself to . He has been fighting with his girlfriend. Has lost contact with his family. Feels like he is lost everything. Abdomen is soft, nontender. Extremities without edema. Assessment/plan A gentleman with chronic alcohol abuse and is well-known to our emergency room as well as social work. His main problem at this time is depression with suicidal ideation. All of his medical problems for which she was hospitalized have resolved. That includes acute respiratory failure with hypoxia acute metabolic encephalopathy due to multidrug intoxication Bilateral lung consolidation Chronic alcohol abuse with recent alcohol abuse, Hypokalemia, Type 2 diabetes mellitus that is on long-term insulin and is stable on chronic Chronic hypertension The distal radial fracture of the right wrist. He currently has an intrathecal pump for back pain. It would be need to be filled in May 24. It is not able to be accessed by the patient or anyone unless you are the pump nurse. There is no physical way to get to it. We have already spoken to the nurse and she will be ready to refill the reservoir. She just needs to know which facility he is going to. At this time patient remains in the hospital as we await placement that is safe for him.
[2024-05-08 08:39] VITALS: O2SAT 96
[2024-05-08] MEDS: hydrOXYzine PAMOATE 25 MG CAPSULE PO SCH (14:26)
--- NOTE | 2024-05-08 15:06 | PROVIDER PROGRESS NOTE ---
Subjective - Prog Note Date Prog Note Date: 05/08/24 Prog Note Time: 15:06 Objective - Vital Signs/Intake & Output Intake & Output: Intake & Output 05/05/24 05/06/24 05/07/24 05/08/24 23:59 23:59 23:59 23:59 Intake Total 1590 3637 1576 720 Output Total 1500 Balance 1590 2137 1576 720 - Lab Results Fish Bones: 05/05/24 11:45 05/05/24 11:45 Other Labs: Lab Results x24hrs 05/08/24 05/08/24 05/07/24 Range/Units 11:28 07:29 20:49 POC Whole Bld Glucose 194 H 140 H 147 H (70 - 100) mg/dL 05/07/24 Range/Units 16:35 POC Whole Bld Glucose 161 H (70 - 100) mg/dL
--- NOTE | 2024-05-08 16:04 | Discharge Plan ---
Discharge Plan Problem Reviewed?: Yes Disposition: Home, Self Care Condition: Fair Prescriptions: Vit No.129/Iron/Folic [ One Daily Tablet] 1 each PO DAILY #100 tablet Diet: Regular Activity Restrictions: Activity as Tolerated Shower Restrictions: No Driving Restrictions: Yes (do not drink and drive) Health Concerns: unfortunately you are well-known to our service because of multiple episodes of intoxication, alcohol withdrawal and have been in alcohol rehab a few times. You have been recently discharged from alcohol rehab, but you unfortunately started drinking again. You had 2 visits to the emergency room on the day of admission and each time you were asking to go back to rehab. The ER provider and distillery worker carefully explained to that you can take yourself to rehab and that you did not need the ER for that. On the third visit you were brought in by ambulance because you had overdosed on alcohol. Toxicology screen was positive for opioids, tricyclic's, and benzodiazepines. Because of your severe lethargy and alcohol intoxication we were worried that you would stop breathing or aspirate. We had to put a breathing tube down your throat and breathe for you for overnight. You probably had aspirated before you were admitted and your x-ray showed you to have aspiration pneumonia in your right lung. You are able to remove the breathing tube the next morning. We continued on antibiotics for aspiration pneumonia. You had minimal alcohol withdrawal. And you only required a couple of doses of Ativan for that. Since that time you have repeatedly stated that he really wanted to go to alcohol treatment. He was said that he would go back to drinking. He was afraid that you would kill yo urself. Unfortunately you have an intrathecal pain pump which makes it very difficult for many rehab facilities to 1 except you. And since you are expressing suicidal ideation, you are more a candidate for an inpatient psychiatric facility than you were for alcohol rehab facility. The [facility] sent a procurement representative to evaluate you. They did feel you are gravely disabled and possibly harmful to yourself. We sought transfer for several days. They state you became calm enough that you were no longer suicidal. We were not able to get you into an inpatient psychiatric bed. However social work was able to find you a 90-day alcohol rehab program. You declined that offer because you only wanted to go for 28 days. As such you are now discharged to home. Plan of Treatment: We hope that you continue to see a counselor. And we encourage you to follow- up with [facility]. Sure that you take a thiamine 100 mg and a vitamin once a day. the vitamin has all the B vitamins and folate that you would need. Please see your primary care provider in follow-up. If you do not have a primary care provider please establish yourself with 1. Care Goals: Your desire is to stop drinking. Assessment: Patient is alert, oriented to person, place, time and situation No Smoking: If you smoke, Please STOP! Call for help.
--- NOTE | 2024-05-08 16:21 | DISCHARGE SUMMARY ---
Discharge Summary Admit Date: 05/01/24 Discharge Date: 05/08/24 Discharging Provider: Waleska Lovell MD Primary Care Provider: NO PCP Code Status: Attempt Resuscitation Condition at Discharge: Fair Discharge Disposition: 01 Home, Self Care - DIAGNOSES Discharge Diagnoses with Status of Each Condition: 1. Acute respiratory failure with hypoxia 2. Acute metabolic encephalopathy due to multidrug intoxication 3. Chronic alcohol abuse 4. Bilateral lung consolidation 5. Depression with suicidal ideation 6. Hypokalemia 7. Type 2 diabetes mellitus with long-term use of insulin, controlled, without complications 8. Chronic hypertension 9. Distal radial fracture of the right wrist 10. Chronic back pain with intrathecal pump that needs to be filled May 24 - History of Present Illness: Mr Romo is a 54 yo M with history of severe alcohol dependence, DM I, chronic pain syndrome with subcutaneous dilaudid pump (details unclear). He presents to the ER via EMS obtunded. He was found to be tachycardic with HR 170s, EKG showed SVT and he was treated with IV diltiazem, he was then in sinus tachycardia, which eventually resolved with IV fluid hydration. He was also tachypneic and hypoxic, intubated in ER. Unable to obtain any history, patient is intubated and sedated on ventilator. No family is available at this time. Patient is well known to [facility], he has had multiple frequent ad missions and reportedly is difficult to place in rehab due to his Dilaudid pain pump and the fact that he has "burned his bridges" many of the respite and detox facilities in the area. This is patient's 3rd visit to the ER in 24 hours. ER provider obtained history from EMS as patient was minimally responsive upon arrival - "They were called out by family or friends, not were not sure which. There were some pills on the ground so there was a concern of overdose. No clear new trauma.". Toxicology testing was notable for positive opiates, TCA and benzodiazepines. Blood alcohol level of 241. - Past Medical History Cardiovascular: reports: Hypertension, High cholesterol Respiratory: reports: Sleep apnea Neuro: reports: Peripheral neuropathy, Other Endocrine/Autoimmune: reports: Type 1 diabetes GI: reports: GERD, Chronic constipation, Other : reports: Other HEENT: reports: None Psych: reports: Depression, Bipolar disorder, Other Musculoskeletal: reports: Osteoarthritis, Chronic back pain Derm: reports: Other MRSA Hx?: No - Past Surgical History General: reports: Appendectomy, Other Ortho: reports: Carpal Tunnel surgery, Spine surgery, Other /MASSAGE COORDINATOR: Derm: reports: Skin grafts - CONSULTS | PROCEDURES Consultations: ER provider to evaluate wrist fracture and placed a splint Procedures: 1. Chest x-rays. 1 before a central line and 1 after central line. Mild pulmonary vascular congestion with bilateral infrahilar infiltrates. Central line in place. No pneumothorax. 2. Abdomen and pelvis CT without any acute solid organ injury seen in the abdomen or pelvis. No free fluid or free air. Moderate size air opacities in the posterior aspect of the bilateral lung bases suggestive of bilateral lower lobe pneumonia possibly from aspiration. Hepatic steatosis and hepatomegaly seen. 3. Chest CT with moderate size airspace consolidations posterior aspect of bilateral lower lobes extending to bilateral infrahilar region concerning for pneumonia secondary to aspiration. ET tube and NG tube in satisfactory position. Cardiomegaly. No pericardial effusion. 4. Head CT without any acute intracranial pathology 5. Cervical spine CT with no acute, displaced fracture or traumatic subluxation. Stable alignment of the cervical spine. Moderate multilevel cervical spondylosis 6. Hand x-ray was questionable angulated fracture at the base of the fifth metacarpal. 7. Wrist x-ray with extra-articular fracture of the distal radius without angulation 8. Blood cultures without growth after 5 days - HOSPITAL COURSE Hospital Course: A gentleman with chronic alcohol abuse and is well-known to our emergency room as well as social work. he has had multiple admissions for alcohol intoxication. Social work will work extensively with him try to get opportunities for rehab. He has gone to rehab a few times. But unfortunately he leaves rehab and starts drinking all over again. He was seen in the emergency room twice on the day of admission. Each time he was intoxicated and asking to be placed back in a rehab program. The ER provider and social scientist carefully explained to him that he does not need to be in the ER to put himself in a rehab program. He can go to any rehab program he can find admission to. This is a return to the emergency room, he was brought in by EMS because of acute obtundation. He was found to be acutely encephalopathic, most likely from polysubstance abuse and acute alcohol intoxication. He was intubated to protect his airway. The next day he was extubated. he was felt to be medically stable since May 03. However he was with suicidal ideation. Stating that he plan on going home and killing himself. He was detained by the DCR over several days as we try to find placement for him. Eventually his detainment. . He is no longer claiming that he wants to kill himself. He does not want to go to inpatient psychiatric facility. We did find a 90-day rehab facility for alcohol abuse. However he only wants to go to a 28-day facility. Since we cannot find placement for him, he is now discharged home and he will follow-up with the [facility] mental health clinic. During his stay the problems we addressed included: depression with suicidal ideation. acute respiratory failure with hypoxia acute metabolic encephalopathy due to multidrug intoxication Bilateral lung consolidation without fever or elevated WBC. He was on meopenem for 1 days then I discontinued. Chronic alcohol abuse with recent alcohol abuse Hypokalemia, Type 2 diabetes mellitus that is on long-term insulin and is stable on chronic. Controlled with sliding scale insulin. Usual home meds including metformin are resumed at discharge. Chronic hypertension The distal radial fracture of the right wrist. he had fallen somewhere in the outpatient setting. During his stay he was complaining of right wrist pain and we obtained a film. Unfortunately we do not have orthopedic coverage. The ER provider did come from the ER to put him in a splint he will need outpatient follow-up of this fracture. He currently has an intrathecal pump for back pain. It would be need to be filled in May 24. On examination at discharge, he is in stable condition. Temperature 36.4. Heart rate 72. Blood pressure 148/101. Respirations 16. 96% on room air. He complains of back pain at a 7 out of a 10. He is 5 feet 11 inches tall, 101 kg. A very pale skin and but comfortable middle-aged white male. No diaphoresis, respiratory distress, tremulousness. He is walking in the room without any assist or ataxia. Neck is supple without JVD Lungs are clear to auscultation and percussion Regular rate and rhythm Abdomen is soft, nontender. Normal bowel sounds. He had a bowel movement yesterday. Extremities are warm, without edema. Greater than 30 minutes was spent coordinating discharge. Asking him to please establish himself with a primary care provider. And to keep his visit with [facility]. The only medications I am adding to his medication list is thiamine 100 mg a day and a vitamin for his folate on a daily basis. This document was made in part using voice recognition software. While efforts are made to proofread this document, sound alike and grammatical errors may occur. - ALLERGIES Allergies/Adverse Reactions: Allergies Allergy/AdvReac Type Severity Reaction Status Date / Time penicillin G Allergy Severe hearing Verified 05/01/24 18:13 loss left ear povidone-iodine Allergy Severe Respiratory Verified 05/01/24 18:13 [From Betadine] soap * [From Betadine] Allergy Severe Respiratory Verified 05/01/24 18:13 adhesive Allergy Unknown Verified 05/01/24 18:13 iodine Allergy Unknown Verified 05/01/24 18:13 shellfish derived Allergy skin Verified 05/01/24 18:13 burning - MEDICATIONS Home Medications: Ambulatory Orders Medication Instructions Recorded Confirmed Losartan Potassium [Cozaar] 100 mg PO DAILY 01/04/23 05/01/24 Gabapentin [Neurontin] 100 mg PO TID #90 cap 04/14/24 05/01/24 Hydromorphone HCl/Pf [Dilaudid] 9 mg IT DAILY 04/14/24 05/01/24 Insulin Lispro [Insulin Lispro 0 - 12 unit SUBQ ACHS 30 Days #1 04/14/24 05/01/24 Junior Reed] each Omeprazole 20 mg PO DAILY #30 tab 04/14/24 05/01/24 hydrOXYzine HCL [Hydroxyzine HCl] 25 mg PO BID #30 tab 04/14/24 05/01/24 traZODone [Desyrel] 50 mg PO HS #30 tablet 04/14/24 05/01/24 Ondansetron Odt [Zofran Odt] 4 mg TL Q6H PRN #20 tablet 04/17/24 05/01/24 Insulin Glargine [Lantus Solostar] 20 unit SUBQ DAILY 05/02/24 05/02/24 Metformin HCl 1,000 mg PO DAILY 05/02/24 05/02/24 QUEtiapine [SEROquel] 100 mg PO QPM 05/02/24 05/02/24 Vit No.129/Iron/Folic 1 each PO DAILY #100 tablet 05/08/24 [ One Daily Tablet] Thiamine [Vitamin B-1] 100 mg PO DAILY tab 05/08/24 - LABS Result Diagrams: 05/05/24 11:45 05/05/24 11:45
[2024-05-08 16:23] VITALS: BP 148/101
--- NOTE | 2024-05-27 13:51 | PROVIDER PROGRESS NOTE ---
Progress Note May 05, 2024 10 am No new information. He is no longer being detained in spite of continue SI. he has been medically stable since 05/03/24. DOYLE continues to work with DCR in trying to find a bed for this man. No change in meds from yesterday, He is ambulating without assistance. Eating. Exam: Selected Entries 05/05/24 07:54 Temperature 36.7 C Heart Rate [ 75 Brachial] Respiratory 20 Rate Blood Pressure 107/80 [Left Brachial artery] O2 Saturation 96 Pain Intensity 7 A disheveled white male, quite pale, looks his stated age. Neck is supple with shotty adenopathy Lungs are clear to auscultation and percussion without any increased respiratory effort Regular rate and rhythm. Abdomen is soft and nontender with normal bowel sounds. Extremities are without edema. Right wrist has the splint. Able to move fingers. Neurologically he is alert and oriented to person, place, time and situation. Feeding himself. Ambulating without assistance. Getting up to go to the bathroom and back in bed without assistance. Assessment/Plan 1. Acute respiratory failure with hypoxia due to #2. Resolved He is medically stable since 05/03 am. Extubated on May 02. All of his medicines were changed to p.o. Cohn has been discontinued. Able to sit up in a chair, walk in the room, eating his food without assistance. We are waiting for disposition to go to inpatient psych rehab and DOYLE and NIKO are working on that. 2. Acute metabolic encephalopathy due to multi drug intoxication resolved. His alcohol level on admit was 241.8. Tox screen positive for tricyclics, opioids, benzodiazepines. He was sleepy after extubation, but I think was the effects of the fentanyl drip as well as a propofol drip. Between afternoon of the and today, alert, oriented, eating his food and ambulating. Does complain of R writs pain. Repeat tox screen done at request of inpatient mental health unit evaluating him for admission done and negative for new substances. 3. Bilateral lung consolidation He had Hypoxia, but no fever, no elevated white cell count. Although the CT scan is impressive, he does not have findings of "infection" on physical exam. As such I stopped the meropenem but would resume it if he spikes a fever or white cell count becomes elevated. He may have aspirated because of his acute intoxication but it was not witnessed. Continues to be without fever, chills, or elevated WBC off of abx. I will not resume abx. 4. Chronic pain syndrome stable and chronic He has an intrathecal pump. in need to investigate with nursing and pharmacy if his Dilaudid pump was running at the same time as his fentanyl pump. It seems that his intrathecal pump was running. What is not clear is whether the pump has anything in it. He does not remember when the last time was that [facility] came to fill in the pump. I left a message with the nurse. Her number is [phone] with the name of Theresa Zapata. She is the field nurse. So far no return phone call to let me know if his pump is full or not. 5. Chronic alcohol abuse Well-known to the emergency room staff as well as social work. This patient has had multiple opportunities to get clean and sober. With this most recent opportunity he had she left rehab after "successful" treatment. Immediately began drinking. He began showing up in the emergency room intoxicated asking to go back to rehab. Social work stressed to him that his ability to go back to rehab was an outpatient issue that he can manage on his own. He did not need to be in the hospital to get referred to rehab. After he left the emergency room he came even more acutely intoxicated and obtunded, hence the intubation and current stay. Started the CIWA protocol 05/02. He was a little shaky and tremulous. He only received 2 doses of Ativan that day. Has not received any Ativan since then and he is without any symptoms or signs of withdrawal. He is medically cleared from alcohol withdrawal now. DCR done and he was detained. The time frame for that has . He is not expressing a desire to leave yet. 6. Hypokalemia resolved. Laboratory Tests 05/02/24 05/03/24 05/03/24 15:10 04:32 12:49 Potassium 4.1 3.8 4.2 7. Type 2 DM, controlled, on intermediate accountant insulin. Stable and chronic on low carb diet and SS insulin. i reviewed his glucose. Laboratory Tests 05/03/24 05/04/24 05/04/24 20:41 07:57 11:43 POC Whole Bld Glucose 172 H 165 H 214 H Laboratory Tests 05/04/24 05/04/24 05/05/24 16:43 20:20 07:45 POC Whole Bld Glucose 131 H 195 H 172 H no change in dosing for now. 8. Hypertension chronic I resumed his home losartan 100 mg po daily . At goal. Selected Entries 05/04/24 08:33 Blood Pressure 135/76 H [Right Brachial artery] Selected Entries 05/04/24 05/04/24 05/05/24 14:00 22:05 05:35 Blood Pressure 148/94 H 117/64 [Left Brachial artery] Blood Pressure 108/74 [Right Brachial artery] I will keep at same dose. 9. Right distal radial fx. Plain film showed extra-articular fracture of the distal radius without angulation. Questionable tiny chip fracture of the ulnar styloid. We do not have orthopedics. As such I had the ER doctor see him 05/03 and he is now in a splint. ER note appreciated. No surgical intervention needed.placed in a short arm volar cock-up splint with 4 inch fiberglass in standard fashion without issue. He will need outpatient fu in the next 2-3 weeks.
== END 2024-05-08 16:39 | disposition home or self-care (01) | DRG 208 ==
LOC: EDUNIT# → ED 17:57 → ICU 22:49 → MS2 05-06 20:07
PROVIDERS: ADMIT Student in an Organized Health Care Education/Training Program; ATTEND Specialist
PROC: 0BH17EZ Insertion of Endotracheal Airway into Trachea, Via Natural or Artificial Opening (ICD-10-PCS; principal; 2024-05-01)
PROC: 5A1935Z Respiratory Ventilation, Less than 24 Consecutive Hours (ICD-10-PCS; 2024-05-01)
DX: T50.904A Poisoning by unspecified drugs, medicaments and biological substances, undetermined, initial encounter (principal); J96.01 Acute respiratory failure with hypoxia; G92.8 Other toxic encephalopathy; E78.00 Pure hypercholesterolemia, unspecified; J69.0 Pneumonitis due to inhalation of food and vomit; S52.551A Other extraarticular fracture of lower end of right radius, initial encounter for closed fracture; Z79.899 Other long term (current) drug therapy; R45.851 Suicidal ideations; E87.20 Acidosis, unspecified; F10.229 Alcohol dependence with intoxication, unspecified; S52.501A Unspecified fracture of the lower end of right radius, initial encounter for closed fracture; X58.XXXA Exposure to other specified factors, initial encounter; E87.6 Hypokalemia; E11.65 Type 2 diabetes mellitus with hyperglycemia; E11.42 Type 2 diabetes mellitus with diabetic polyneuropathy; Z96.89 Presence of other specified functional implants; I10 Essential (primary) hypertension; G47.30 Sleep apnea, unspecified; E10.42 Type 1 diabetes mellitus with diabetic polyneuropathy; R00.0 Tachycardia, unspecified; G89.4 Chronic pain syndrome; F31.9 Bipolar disorder, unspecified; R91.8 Other nonspecific abnormal finding of lung field; W19.XXXA Unspecified fall, initial encounter; Y90.8 Blood alcohol level of 240 mg/100 ml or more; T40.2X5A Adverse effect of other opioids, initial encounter; T42.4X5A Adverse effect of benzodiazepines, initial encounter; Z79.891 Long term (current) use of opiate analgesic; Z79.4 Long term (current) use of insulin; Z79.84 Long term (current) use of oral hypoglycemic drugs
CPT/HCPCS: 31500; 36415; 36556; 36600; 70450; 71260; 72125; 73100; 73120; 74177; 80053; 80143; 80306; 81003; 82330; 82550; 82607; 82746; 82803; 83605; 83690; 83735; 84100; 84132; 84443; 85025; 87040; 87150; 87635; 93005; 94002; 96365; 96366; 96375; 99283; 99291; A9270; G0480; J2060; J2185; J3010; Q9967; 80179; 81001; 82077; 87086

== ENCOUNTER 2024-06-03 15:02 | Outpatient (CLI) | payer MEDICARE ==
--- NOTE | 2024-06-04 08:46 | XRAY Report ---
PROCEDURE: Shoulder 2+V RT INDICATIONS: OTHER FRACTURES OF LOWER END OF RIGHT RADIUS TECHNIQUE: 3 views of the shoulder were acquired. COMPARISON: Prior examination of 09/30/2020 reviewed FINDINGS: Bones: No fractures or dislocations. No suspicious bony lesions. Visualized ribs appear intact. There is a moderate to severe AC and moderate glenohumeral joint degenerative change present. Soft tissues: No suspicious soft tissue calcifications. The visualized lungs are within normal limi ts. IMPRESSION: 1. No acute bony abnormality. 2. Moderate to severe AC joint degenerative change. 3. Moderate glenohumeral joint degenerative change. Reviewed by: Sj Love MD on 06/04/2024 8:45 AM PDT Approved by: Sj Love MD on 06/04/2024 8:45 AM PDT Station ID: [id number]
--- NOTE | 2024-06-04 08:50 | XRAY Report ---
PROCEDURE: Wrist 3+V RT INDICATIONS: OTHER FRACTURES OF LOWER END OF RIGHT RADIUS TECHNIQUE: 3 views of the wrist were acquired. COMPARISON: Prior examination May 02, 2024 reviewed.. FINDINGS: There is a healing transverse fracture through the distal right radius in continued near-anatomic ali gnment. I see no evidence for new acute osseous abnormality. No significant degenerative changes are present. There appears to be an old boxer's fracture involving the right fifth metacarpal. IMPRESSION: 1. Stable appearance of healing transverse fracture distal right radius in near-anatomic alignment. 2. No new acute osseous abnormality seen. 3. Old boxers fracture involving the right fifth metacarpal. Reviewed by: Sj Love MD on 06/04/2024 8:48 AM PDT Approved by: Sj Love MD on 06/04/2024 8:48 AM PDT Station ID: [id number]
== END 2024-06-03 15:03 | disposition home or self-care (01) ==
LOC: DI.N 15:02
PROVIDERS: ATTEND Physician Assistant Medical
DX: S52.591D Other fractures of lower end of right radius, subsequent encounter for closed fracture with routine healing (principal); M19.011 Primary osteoarthritis, right shoulder; S62.304D Unspecified fracture of fourth metacarpal bone, right hand, subsequent encounter for fracture with routine healing

== ENCOUNTER 2024-06-18 18:50 | Outpatient (CLI) | payer MEDICARE | END 2024-06-18 18:51 | disposition critical access hospital (66) | LOC: EMS 18:50 | DX: R45.851 Suicidal ideations (principal) | CPT/HCPCS: A0425; A0427 ==

== ENCOUNTER 2024-06-18 19:04 | Emergency (ER) | payer MEDICARE ==
--- NOTE | 2024-06-18 19:17 | ED Physician Documentation ---
PD HPI MHE - Stated complaint Stated Complaint: MHE/ETOH - Chief complaint Chief Complaint: MHE - History obtained from History obtained from: Patient, EMS - History of Present Illness Primary symptom: Suicidal ideation Pain level max: 0 Pain level now: 0 Contributing factors: Substance abuse - ETOH - Additional information Additional information: Patient is a 54-year-old male, longstanding history of alcoholism and suicidal ideation. He states that he started drinking again about 2 weeks ago. States increasing suicidal thoughts. His plan was to hang himself in the garage. He states that he sees a counselor but not a psychiatrist. States he is not on any medications at home right now. Police were called, alcohol breath test was reportedly 0.19. He states that he is always suicidal. Review of Systems Constitutional: denies: Fever GI: denies: Vomiting, Diarrhea Skin: denies: Rash Musculoskeletal: denies: Neck pain, Back pain Neurologic: denies: Headache PD PAST MEDICAL HISTORY - Past Medical History Cardiovascular: Hypertension, High cholesterol Respiratory: Sleep apnea Neuro: Peripheral neuropathy, Other Endocrine/Autoimmune: Type 1 diabetes GI: GERD, Chronic constipation, Other : Other HEENT: None Psych: Depression, Bipolar disorder, Other Musculoskeletal: Osteoarthritis, Chronic back pain Derm: Other - Past Surgical History Past Surgical History: No General: Appendectomy, Other Ortho: Carpal Tunnel surgery, Spine surgery, 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:  Derm: Skin grafts - Present Medications Home Medications: Ambulatory Orders Medication Instructions Recorded Confirmed Losartan Potassium [Cozaar] 100 mg PO DAILY 01/04/23 05/01/24 Gabapentin [Neurontin] 100 mg PO TID #90 cap 04/14/24 05/01/24 Hydromorphone HCl/Pf [Dilaudid] 9 mg IT DAILY 04/14/24 05/01/24 Insulin Lispro [Insulin Lispro 0 - 12 unit SUBQ ACHS 30 Days #1 04/14/24 05/01/24 Junior Reed] each Omeprazole 20 mg PO DAILY #30 tab 04/14/24 05/01/24 hydrOXYzine HCL [Hydroxyzine HCl] 25 mg PO BID #30 tab 04/14/24 05/01/24 traZODone [Desyrel] 50 mg PO HS #30 tablet 04/14/24 05/01/24 Ondansetron Odt [Zofran Odt] 4 mg TL Q6H PRN #20 tablet 04/17/24 05/01/24 Insulin Glargine [Lantus Solostar] 20 unit SUBQ DAILY 05/02/24 05/02/24 Metformin HCl 1,000 mg PO DAILY 05/02/24 05/02/24 QUEtiapine [SEROquel] 100 mg PO QPM 05/02/24 05/02/24 Vit No.129/Iron/Folic 1 each PO DAILY #100 tablet 05/08/24 [ One Daily Tablet] Thiamine [Vitamin B-1] 100 mg PO DAILY tab 05/08/24 - Allergies Allergies/Adverse Reactions: Allergies Allergy/AdvReac Type Severity Reaction Status Date / Time penicillin G Allergy Severe hearing Verified 06/18/24 19:20 loss left ear povidone-iodine Allergy Severe Respiratory Verified 06/18/24 19:20 [From Betadine] soap * [From Betadine] Allergy Severe Respiratory Verified 06/18/24 19:20 adhesive Allergy Unknown Verified 06/18/24 19:20 iodine Allergy Unknown Verified 06/18/24 19:20 shellfish derived Allergy skin Verified 06/18/24 19:20 burning - Social History Does the pt smoke?: No Smoking Status: Never smoker Does the pt drink ETOH?: Yes Does the pt have substance abuse?: No - Immunizations Immunizations are current?: Yes - POLST Patient has POLST: No POLST Status: Full Code PD ED PE NORMAL - Vitals Vital signs reviewed: Yes - General General: Alert and oriented X 3, No acute distress, Well developed/nourished - HEENT HEENT: PERRL, Moist mucous membranes - Neck Neck: Supple, no meningeal sign - Cardiac Cardiac: RRR, Strong equal pulses - Respiratory Respiratory: No respiratory distress, Clear bilaterally - Abdomen Abdomen: Soft, Non tender, Non distended - Derm Derm: Warm and dry - Extremities Extremities: No edema - Neuro Neuro: Alert and oriented X 3 - Psych Psych: Normal mood, Normal affect Results - Vitals Vitals: Vital Signs - 24 hr 06/18/24 19:17 Temperature 37.2 C Heart Rate 108 H Respiratory 18 Rate Blood Pressure 140/86 H O2 Saturation 96 Oxygen O2 Source Room air - EKG (time done) 1942 EKG releavant findings:: EKG personally interpreted by author of this note. Relevant findings are: Rate: Rate (enter#) (100) Rhythm: Sinus tachycardia [place]: Normal Intervals: Normal AR QRS: Normal Ischemia: Normal ST segments, Q waves (III, aVF) - Labs Labs: Laboratory Tests 06/18/24 06/18/24 06/18/24 19:27 19:27 20:20 WBC 5.8 RBC 4.69 L Hgb 14.0 Hct 43.0 MCV 91.7 MCH 29.9 MCHC 32.6 RDW 13.0 Plt Count 255 MPV 9.1 Neut # (Auto) 2.6 Lymph # (Auto) 2.8 [place] # (Auto) 0.2 Eos # (Auto) 0.1 Baso # (Auto) 0.0 Absolute Nucleated RBC 0.00 Nucleated RBC % 0.0 Sodium 139 Potassium 3.9 Chloride 99 L Carbon Dioxide 26 Anion Gap 14.0 H BUN 13 Creatinine 0.6 Estimated GFR (MDRD) 139 Glucose 157 H Calcium 9.0 Magnesium 1.6 L Total Bilirubin 0.6 AST 32 ALT 24 Alkaline Phosphatase 123 H Total Protein 7.6 Albumin 4.7 Globulin 2.9 Albumin/Globulin Ratio 1.6 Lipase < 10 L Vitamin B12 332 Folate 8.9 TSH 1.77 Urine Color YELLOW Urine Clarity CLEAR Urine pH 6.0 Ur Specific [place] 1.025 Urine Protein 100 H Urine Glucose (UA) NEGATIVE Urine Ketones TRACE Urine Occult Blood NEGATIVE Urine Nitrite NEGATIVE Urine Bilirubin NEGATIVE Urine Urobilinogen 0.2 (NORMAL) Ur Leukocyte Esterase NEGATIVE Urine RBC 0-5 Urine WBC 0-3 Ur Squamous Epith Cells RARE Squamous Urine Bacteria None Seen Ur Microscopic Review INDICATED Urine Culture Comments NOT INDICATED Salicylates < 1.5 Urine Opiates Screen POSITIVE H Ur Buprenorphine Scrn NEGATIVE Ur Oxycodone Screen NEGATIVE Urine Methadone Screen NEGATIVE Acetaminophen < 0.1 Ur Barbiturates Screen NEGATIVE Ur Tricyclics Screen NEGATIVE Ur Phencyclidine Scrn NEGATIVE Ur Amphetamine Screen NEGATIVE U Methamphetamines Scrn NEGATIVE U Benzodiazepines Scrn POSITIVE H Urine Cocaine Screen NEGATIVE U Cannabinoids Screen POSITIVE H Ur Drug Screen Comment CUTOFF CONC BELOW: Ethyl Alcohol 317.6 SARS-CoV-2 (PCR) 06/18/24 20:20 WBC RBC Hgb Hct MCV MCH MCHC RDW Plt Count MPV Neut # (Auto) Lymph # (Auto) [place] # (Auto) Eos # (Auto) Baso # (Auto) Absolute Nucleated RBC Nucleated RBC % Sodium Potassium Chloride Carbon Dioxide Anion Gap BUN Creatinine Estimated GFR (MDRD) Glucose Calcium Magnesium Total Bilirubin AST ALT Alkaline Phosphatase Total Protein Albumin Globulin Albumin/Globulin Ratio Lipase Vitamin B12 Folate TSH Urine Color Urine Clarity Urine pH Ur Specific [place] Urine Protein Urine Glucose (UA) Urine Ketones Urine Occult Blood Urine Nitrite Urine Bilirubin Urine Urobilinogen Ur Leukocyte Esterase Urine RBC Urine WBC Ur Squamous Epith Cells Urine Bacteria Ur Microscopic Review Urine Culture Comments Salicylates Urine Opiates Screen Ur Buprenorphine Scrn Ur Oxycodone Screen Urine Methadone Screen Acetaminophen Ur Barbiturates Screen Ur Tricyclics Screen Ur Phencyclidine Scrn Ur Amphetamine Screen U Methamphetamines Scrn U Benzodiazepines Scrn Urine Cocaine Screen U Cannabinoids Screen Ur Drug Screen Comment Ethyl Alcohol SARS-CoV-2 (PCR) NOT DETECTED - Rads (name of study) R wrist xray Relevant Findings:: Final report received, See rad report PD Medical Decision Making - ED course Complexity details: reviewed results, re-evaluated patient, considered differential, d/w patient ED course: 54-year-old male with alcohol intoxication and chronic suicidal ideation. States he was going to hang himself in his garage today. He is laughing and joking with his neighbor in bed 4. He does not appear in any distress. He will be allowed to sober in the emergency department. He was having difficulty sleeping, was given Zyprexa and Seroquel. Patient signed out to the [facility] emergency department physician awaiting sobriety for psychiatric evaluation. Departure - Departure Clinical Impression: Suicidal ideation Alcohol intoxication Qualifiers: Complication of substance-induced condition: uncomplicated Qualified Code(s): F10.920 - Alcohol use, unspecified with intoxication, uncomplicated Condition: Stable Forms: PCP List
[2024-06-18 19:31] LABS: BASOPHILS % (AUTO) 0.5 %; EOSINOPHILS # (AUTO) 0.1 10^3/uL (0.0-0.7); EOSINOPHILS % (AUTO) 2.2 %; LYMPHOCYTES # (AUTO) 2.8 10^3/uL (1.5-3.5); LYMPHOCYTES % (AUTO) 48.6 %; MEAN CORPUSCULAR HEMOGLOBIN 29.9 pg (27.0-31.0); MEAN CORPUSCULAR HGB CONC 32.6 g/dL (32.0-36.0); MEAN CORPUSCULAR VOLUME 91.7 fL (80.0-94.0); MEAN PLATELET VOLUME 9.1 fL (7.4-11.4); MONOCYTES # (AUTO) 0.2 10^3/uL (0.0-1.0); MONOCYTES % (AUTO) 3.4 %; NEUTROPHILS # (AUTO) 2.6 10^3/uL (1.5-6.6); NEUTROPHILS % (AUTO) 45.1 %; PLT - PLATELET COUNT 255 10^3/uL (130-450); RED BLOOD COUNT 4.69 10^6/uL (4.70-6.10); WHITE BLOOD COUNT 5.8 x10^3/uL (4.8-10.8)
[2024-06-18 19:54] LABS: ALBUMIN 4.7 g/dL (3.2-5.5); ALBUMIN/GLOBULIN RATIO 1.6 (1.0-2.2); ALKALINE PHOSPHATASE 123 IU/L (42-121); ALT ALANINE AMINOTRANSFERASE 24 IU/L (10-60); AST ASPARTATE AMINOTRANSFERASE 32 IU/L (10-42); BILIRUBIN,TOTAL 0.6 mg/dL (0.2-1.0); BUN - BLOOD UREA NITROGEN 13 mg/dL (6-20); CARBON DIOXIDE - CO2 26 mmol/L (21-32); CHLORIDE 99 mmol/L (101-111); CREATININE 0.6 mg/dL (0.6-1.3); ETOH - ETHANOL 317.6 mg/dL; GFR - MDRD 139 (>89); GLUCOSE 157 mg/dL (74-104); MAGNESIUM 1.6 mg/dL (1.7-2.3); POTASSIUM 3.9 mmol/L (3.5-4.5); SODIUM 139 mmol/L (135-145); TOTAL PROTEIN 7.6 g/dL (6.4-8.9)
[2024-06-18 19:55] LABS: ACETAMINOPHEN < 0.1 ug/mL; LIPASE < 10 U/L (11-82)
[2024-06-18 20:00] LABS: THYROID STIMULATING HORMONE 1.77 uIU/mL (0.34-5.60)
[2024-06-18 20:17] LABS: SALICYLATE < 1.5 mg/dL
[2024-06-18 20:32] LABS: BILIRUBIN,URINE NEGATIVE (NEGATIVE); GLUCOSE, URINE (UA) NEGATIVE (NEGATIVE); KETONES,URINE (UA) TRACE mg/dL (NEGATIVE); LEUKOCYTE ESTERASE, URINE NEGATIVE (NEGATIVE); NITRITE,URINE NEGATIVE (NEGATIVE); OCCULT BLOOD,URINE NEGATIVE (NEGATIVE); PROTEIN,URINE 100 mg/dL (NEGATIVE); UROBILINOGEN,URINE 0.2 (NORMAL) E.U./dL (NORMAL)
[2024-06-18 20:34] LABS: CLARITY,URINE CLEAR (CLEAR)
[2024-06-18] MEDS: SODIUM CHLORIDE 0.9% 1,000 ML IV STA (20:40)
[2024-06-18 20:45] LABS: AMPHETAMINE SCREEN,URINE NEGATIVE (NEGATIVE); BARBITURATE SCREEN,UR NEGATIVE (NEGATIVE); BENZODIAZEPINES SCREEN, URINE POSITIVE (NEGATIVE); BUPRENORPHINE SCREEN, URINE NEGATIVE (NEGATIVE); COCAINE SCREEN URINE NEGATIVE (NEGATIVE); METHADONE SCREEN, URINE NEGATIVE (NEGATIVE); METHAMPHETAMINES SCREEN, URINE NEGATIVE (NEGATIVE); OPIATE SCREEN, URINE POSITIVE (NEGATIVE); OXYCODONE SCREEN, URINE NEGATIVE (NEGATIVE); THC CANNABINOID SCREEN, URINE POSITIVE (NEGATIVE); TRICYCLIC ANTIDEPRESSANT,URINE NEGATIVE (NEGATIVE)
[2024-06-18 20:49] LABS: BACTERIA,URINE None Seen /HPF (None Seen); RBC,URINE 0-5 /HPF (0-5); SQUAMOUS EPITHELIAL CELL,UR RARE Squamous (<= Few); WBC,URINE 0-3 /HPF (0-3)
[2024-06-18] MEDS: OLANZapine ODT 5 MG TABLET TL STA (21:12)
[2024-06-18] MEDS: QUEtiapine 25 MG TABLET PO STA (22:07)
--- NOTE | 2024-06-18 22:53 | XRAY Report ---
PROCEDURE: Wrist 3+V RT INDICATIONS: fall, pain TECHNIQUE: 3 views of the wrist were acquired. COMPARISON: Right wrist radiographs 06/03/2024, 05/02/2024. FINDINGS: Bones: Decreased conspicuity of the distal radius fracture. Anatomic alignment. No intra-articular e xtension demonstrated. No dislocations. Healed fifth metacarpal fracture. No suspicious bony lesions . Subtle lucency at the ulnar styloid. Soft tissues: No suspicious soft tissue calcifications or masses. IMPRESSION: Ongoing healing of the distal radius fracture. Reviewed by: Jeff Zaragoza MD on 06/18/2024 10:52 PM PDT Approved by: Jeff Zaragoza MD on 06/18/2024 10:52 PM PDT Station ID: [id number]
--- NOTE | 2024-06-19 04:40 | ED Physician Documentation ---
ED Addendum - Addendum Addendum: 06/19/24 04:39 I received signout/turnover of care on this patient from Dr. Shin; please see his note for complete H&P. In brief, patient presented to the emergency department intoxicated and making suicidal statements with plan. He is held in the ED until he can be medically cleared for a telemetry psychiatric consult. At this time (04:39), his repeat alcohol level is 44 (down from 317 earlier in stay), and he is thus medically cleared for telepsychiatric consult. 06/19/24 07:06 Telepsychiatrist's recommendation is inpatient. Care of patient turned over to oncoming ED physician (Dr. Connell) pending final disposition.
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
[2024-06-19] MEDS ORDERED: ACETAMINOPHEN 500 MG TABLET PO PRN (07:28)
[2024-06-19] MEDS: PANTOPRAZOLE 40 MG TABLET PO SCH (08:04)
[2024-06-19] MEDS: MULTIVITAMIN W/MINERALS TABLET PO SCH (08:04)
[2024-06-19] MEDS: GABAPENTIN 100 MG CAPSULE PO SCH ×2 (08:05→09:14)
[2024-06-19 08:18] VITALS: BP 145/89; O2SAT 95
--- NOTE | 2024-06-19 08:24 | PHARMACY PROGRESS NOTE ---
- Best Possible Medication History Admit Date and Time: Processed by: Pharmacy Medications reviewed in ED?: Yes Medication History completed: Yes Patient Interview: Completed Secondary Source(s): Pharmacy records, Insurance records As the person ultimately responsible for medication therapy, providers are able to order a medication from an existing home medication list in [facility] via the "Reconcile Routine" prior to Confirmation of that medication by sales support associate. Such practice is discouraged except when the physician, in their clinical judgment, deems that a medical need exists for a medication without regard to previous use.
[2024-06-19 08:25] LABS: LITHIUM < 0.10 mmol/L
--- NOTE | 2024-06-19 09:05 | ED Physician Documentation ---
ED Addendum - Addendum Addendum: 06/19/24 09:04 He was accepted to [facility] and cobras are completed. He is stable for transport. Disposition: 65-psych hospital transfer Condition: Stable Diagnosis: 1. Alcohol intoxication 2. Suicidal ideation
[2024-06-19] MEDS: INSULIN GLARGINE-YFGN 300 UNIT/3 ML PEN SUBQ SCH (09:11)
[2024-06-19] MEDS: INSULIN LISPRO 300 UNIT/3 ML PEN SUBQ SCH (09:12)
[2024-06-19] MEDS: LOSARTAN 50 MG TABLET PO SCH (09:13)
[2024-06-19] MEDS: metFORMIN 500 MG TABLET PO SCH (09:13)
[2024-06-19] MEDS: THIAMINE 100 MG TABLET PO SCH (09:13)
[2024-06-19] MEDS ORDERED: traZODone 50 MG TABLET PO SCH (21:00)
[2024-06-19] MEDS ORDERED: QUEtiapine 100 MG TABLET PO SCH (21:00)
== END 2024-06-19 11:25 ==
LOC: EDUNIT# → ED 19:04
DX: F10.920 Alcohol use, unspecified with intoxication, uncomplicated (principal); R45.851 Suicidal ideations; I10 Essential (primary) hypertension; E78.00 Pure hypercholesterolemia, unspecified; G47.30 Sleep apnea, unspecified; E10.42 Type 1 diabetes mellitus with diabetic polyneuropathy; Z79.4 Long term (current) use of insulin; Z79.899 Other long term (current) drug therapy
CPT/HCPCS: 36415; 73110; 80053; 80143; 80178; 80306; 81001; 82607; 82746; 83690; 83735; 84443; 85025; 87635; 93005; 99285; A9270; G0426; G0480; J1815; Q3014; 80179; 81003; 82077; 87086; 90834